=== PATIENT | male | born 1955 | race Caucasian/White ===

== ENCOUNTER 2023-01-09 11:40 | Outpatient (OUT) | payer MEDICARE, MEDICAID, SELFPAY ==
[2023-01-09 12:44] LABS: Basophils Percent Auto 0.5 % (0.2-2.0); Eosinophils Absolute Auto 0.3 10^3/uL (0.0-0.7); Eosinophils Percent Auto 4.3 % (0.9-7.0); Hematocrit 37.9 % (42.0-54.0); Hemoglobin 11.8 g/dL (14.0-18.0); Immature Granulocytes Abs Auto 0.02 10^3/uL (0.00-0.03); Immature Granulocytes Pct Auto 0.3 % (0.0-0.5); Lymphocytes Absolute Auto 2.3 10^3/uL (1.2-3.8); Lymphocytes Percent Auto 28.5 % (20.5-60.0); Mean Corpuscular HGB Conc 31.1 g/dL (29.9-35.2); Mean Corpuscular Hemoglobin 25.7 pg (25.9-34.0); Mean Corpuscular Volume 82.4 fL (80.0-94.0); Mean Platelet Volume 9.1 fL (9.5-13.5); Monocytes Absolute Auto 0.5 10^3/uL (0.3-0.8); Monocytes Percent Auto 5.9 % (1.7-12.0); Neutrophils Absolute Auto 4.8 10^3/uL (1.4-6.5); Neutrophils Percent Auto 60.5 % (43.0-75.0); Platelet Count 243 10^3/uL (150-450); Red Cell Distribution Width 15.1 % (11.0-15.0); White Blood Count 7.9 10^3/uL (4.0-11.0)
[2023-01-09 13:31] LABS: Alanine Aminotransferase 22 U/L (16-63); Albumin Globulin Ratio 0.8; Albumin Level 3.4 g/dL (3.4-5.0); Alkaline Phosphatase 148 U/L (46-116); Anion Gap 10.8; Aspartate Amino Transferase 15 U/L (15-37); BUN Creatinine Ratio 18.4; Bilirubin Total 0.7 mg/dL (0.2-1.0); Calcium 9.1 mg/dL (8.5-10.1); Carbon Dioxide 31.7 mmol/L (21.0-32.0); Chloride 103 mmol/L (98-107); Estimated GFR (African America >60 (>=60); Estimated GFR (Non-African Ame >60 (>=60); Globulin 4.3 g/dL; Glucose 130 mg/dL (74-106); Potassium 4.5 mmol/L (3.5-5.1); Sodium 141 mmol/L (136-145); Thyroid Stimulating Hormone 0.713 uIU/mL (0.358-3.740); Total Protein 7.7 g/dL (6.4-8.2)
[2023-01-09 14:38] LABS: Prostate Specific Antigen Dx 0.79 ng/mL (<=4.00)
== END 2023-01-09 11:41 | disposition home or self-care (01) ==
PROVIDERS: PCP Family Medicine; Visit Provider Family Medicine
DX: R42 Dizziness and giddiness (principal); D64.9 Anemia, unspecified; I10 Essential (primary) hypertension; N40.0 Benign prostatic hyperplasia without lower urinary tract symptoms
CPT/HCPCS: 36415; 80053; 83540; 84153; 84436; 84443; 85025

== ENCOUNTER 2023-02-09 17:14 | Emergency (ER) | payer MEDICARE, MEDICAID, SELFPAY ==
[2023-02-09 17:22] VITALS: BP 138/58; PULSE 77; RESP 16; TEMP 36.7; O2SAT 98; BMI 33.8
--- NOTE | 2023-02-09 18:06 | ED.LOWEXI1 ---
HPI - Extremity Injury (Lower) General Chief Complaint: Extremity Injury, Lower Stated Complaint: CUT LEG W/ POWER SAW Time Seen by Provider: 02/09/23 17:36 Source: patient Mode of arrival: Wheelchair History of Present Illness HPI Narrative: Patient sustained a laceration to his right leg just a few minutes ago while he was using a power saw He had his last tetanus shot almost 2 years ago No other injuries Related Data Previous Rx's Medication Instructions Recorded cephalexin 500 mg capsule 500 mg PO Q8H #9 caps 02/09/23 Allergies Allergy/AdvReac Type Severity Reaction Status Date / Time No Known Drug Allergies Allergy Verified 02/09/23 17:22 Review of Systems ROS Status of ROS 10 or more systems reviewed and unremarkable except as noted in history and below Exam Narrative Exam Narrative: Nurses notes and vital signs reviewed and patient is not hypoxic. General: Well-appearing and in no apparent distress. Skin: Warm, dry, no pallor noted. No rash. Head: Normocephalic, atraumatic. Neck: Supple, non-tender. Eye: Pupils are equal, round and EOMI. No scleral icterus. Ears, Nose, Mouth, and Throat: TM are clear, no nasal mucosal hypertrophy. Oral mucosa is moist, no posterior oropharynx erythema, uvula is mid-line Cardiovascular: Regular Rate and Rhythm without murmur, gallop or rub. Respiratory: No accessory muscle use or respiratory distress. Lungs are clear to auscultation, no wheezing, rales or rhonchi Chest Wall: no tenderness Back: No midline thoracic or lumbar vertebral tenderness. No CVA tenderness Musculoskeletal: normal ROM, no calf or popliteal tenderness at the end aspect of the right leg just at the lower third of the thigh almost to 10 cm above the knee and the patient have a laceration that is linear almost 5 cm showing no foreign body and no tendon injury no vascular injury as well. GI: Abdomen is soft, non-distended. Normal bowel sounds. No masses appreciated. No tenderness to palpation. No rebound, guarding, or rigidity noted. Neurological: A&O x4. No cranial nerve dysfunction observed. No truncal ataxia. Moves all extremities. Sensation intact. Psychiatric: Cooperative and interactive. Normal mood and affect. Constitutional Vital Signs, click to edit/add: Last Vital Signs Temp 98.1 F 02/09/23 17:22 Pulse 77 02/09/23 17:22 Resp 16 02/09/23 17:22 BP 138/58 H 02/09/23 17:22 Pulse Ox 98 02/09/23 17:22 O2 Del Method Room Air 02/09/23 17:22 Course Vital Signs Vital signs: Vital Signs Temperature 98.1 F 02/09/23 17:22 Pulse Rate 77 02/09/23 17:22 Respiratory Rate 16 02/09/23 17:22 Blood Pressure 138/58 H 02/09/23 17:22 Pulse Oximetry 98 02/09/23 17:22 Oxygen Delivery Method Room Air 02/09/23 17:22 Temperature 98.1 F 02/09/23 17:22 Pulse Rate 77 02/09/23 17:22 Respiratory Rate 16 02/09/23 17:22 Blood Pressure 138/58 H 02/09/23 17:22 Pulse Oximetry 98 02/09/23 17:22 Oxygen Delivery Method Room Air 02/09/23 17:22 MDM - Extremity Injury (Lower) MDM Narrative Medical decision making narrative: After cleaning the laceration the patient wound was infiltrated with 1% lidocaine almost 10 cc after which he had to 4-O chromic gut sutures and 10 3-O nylon stitches ,non interrupted The patient had Forest wrap applied after that and provided with Keflex as prophylaxis The patient advised about wound care The patient is to follow up with primary care physician in next 2-3 days or to return to the emergency department should any of the signs or symptoms worsen or new symptoms develop. The patient agrees with the following Diagnosis and Treatment plan and the patient will be discharged home. Discharge Plan Discharge Chief Complaint: Extremity Injury, Lower Clinical Impression: Laceration of leg Patient Disposition: Home, Self-Care Time of Disposition Decision: 18:03 Condition: Good Mode of Transportation: Private Vehicle Prescriptions / Home Meds: New cephalexin 500 mg capsule 500 mg PO Q8H Qty: 9 0RF Instructions: Care For Your Stitches (ED) Stand Alone Forms: Portal Instructions Referrals: QIANA MADDOX [Primary Care Provider] - 1 week
== END 2023-02-09 18:12 | disposition home or self-care (01) ==
PROVIDERS: Emergency Provider Emergency Medicine; PCP Family Medicine
DX: S71.111A Laceration without foreign body, right thigh, initial encounter (principal); W29.8XXA Contact with other powered hand tools and household machinery, initial encounter
CPT/HCPCS: 12002; 99283

== ENCOUNTER 2023-08-22 11:59 | Emergency (ER) | payer MEDICARE, MEDICAID, SELFPAY ==
[2023-08-22 12:02] VITALS: BP 141/64; PULSE 74; RESP 24; TEMP 36.9; O2SAT 97; BMI 33.9
--- NOTE | 2023-08-22 12:10 | XR_ITS ---
The [address] [address] Patient Name: ZACHERY GALDAMEZ MRN: [id number] date: 1955 Sex: M Assigned Patient Location: ER Current Patient Location: ER Accession/Order Number: [id number] Exam Date: 08/22/2023 12:40 Report Date: 08/22/2023 13:15 At the request of: WILLIAM RUCKER Procedure: XR chest 1V PROCEDURE: XR chest 1V DATE: 08/22/2023 12:40 PM EST COMPARISONS: 04/25/2022 CLINICAL INDICATION: 68 years Male cough FINDINGS: The cardiomediastinal silhouette and pulmonary vasculature are within normal limits. The lungs are clear. There is no evidence of pleural effusion or pneumothorax. XR/XR chest 1V IMPRESSION: Chest radiograph is within normal limits. Electronically authenticated by: CARMELO TRIANA Date: 08/22/2023 13:15
[2023-08-22 12:29] LABS: Influenza Virus A Antigen Negative; Influenza Virus B Antigen Negative; Internal Control Within Normal Limits; SARS-CoV-2 Ag NEGATIVE (NEGATIVE)
--- NOTE | 2023-08-22 13:37 | ED.URI1 ---
HPI - URI/Sore Throat General Chief Complaint: Upper Respiratory Infection Stated Complaint: URTI Time Seen by Provider: 08/22/23 12:06 Source: patient Limitations: no limitations History of Present Illness HPI Narrative: 68-year-old male presents for a 4-day history of cough. He has been coughing up yellow phlegm. He has not had a known fever. No vomiting or diarrhea. He has not been around ill people. Related Data Previous Rx's Medication Instructions Recorded cephalexin 500 mg capsule 500 mg PO Q8H #9 caps 02/09/23 benzonatate 100 mg capsule 100 mg PO TID PRN cough #20 caps 08/22/23 doxycycline hyclate 100 mg capsule 100 mg PO BID 10 days #20 caps 08/22/23 Allergies Allergy/AdvReac Type Severity Reaction Status Date / Time No Known Drug Allergies Allergy Verified 02/09/23 17:22 Review of Systems ROS Narrative A ten point review of systems is negative except as noted above. PFSH PFSH Social History Smoking status: Former smoker Exam Narrative Exam Narrative: Nurses note and vital signs reviewed and patient is not hypoxic. General: The patient appears well and in no apparent distress. Patient is resting comfortably on cart. Skin: Warm, dry, no pallor noted. There is no rash noted. Head: Normocephalic, atraumatic Eye: Normal conjunctiva, no drainage Ears, Nose, Mouth, and Throat: oral mucosa is moist. Nares patent. Cardiovascular: Regular Rate and Rhythm Respiratory: Patient is in no distress, no accessory muscle use, lungs are clear to auscultation, no wheezing, rales or rhonchi Back: non-tender GI: Soft and nontender Musculoskeletal: The patient has no evidence of calf tenderness, no pitting edema, symmetrical pulses noted bilaterally Neurological: A&O, normal speech Psychiatric: Cooperative Constitutional Vital Signs, click to edit/add: Last Vital Signs Temp 98.4 F 08/22/23 12:02 Pulse 74 08/22/23 12:02 Resp 24 08/22/23 12:02 BP 141/64 08/22/23 12:02 Pulse Ox 97 08/22/23 12:02 O2 Del Method Room Air 08/22/23 12:02 Course Vital Signs Vital signs: Vital Signs Temperature 98.4 F 08/22/23 12:02 Pulse Rate 74 08/22/23 12:02 Respiratory Rate 24 08/22/23 12:02 Blood Pressure 141/64 08/22/23 12:02 Pulse Oximetry 97 08/22/23 12:02 Oxygen Delivery Method Room Air 08/22/23 12:02 Temperature 98.4 F 08/22/23 12:02 Pulse Rate 74 08/22/23 12:02 Respiratory Rate 24 08/22/23 12:02 Blood Pressure 141/64 08/22/23 12:02 Pulse Oximetry 97 08/22/23 12:02 Oxygen Delivery Method Room Air 08/22/23 12:02 MDM - URI/Sore Throat MDM Narrative Medical decision making narrative: COVID, influenza, chest x-ray are all negative. He will be placed on doxycycline and Tessalon. Treatment diagnosis and follow-up were discussed with the patient. Differential Diagnosis Differential diagnosis: Likely upper respiratory infection, viral infection, bronchitis, influenza and other (COVID, pneumonia) Lab Data Attestation: I reviewed the patient's lab results. Labs: Lab Results 08/22/23 Range/Units 12:05 Influenza Type A Ag Negative Influenza Type B Ag Negative SARS-CoV-2 Ag (CV2AG) Negative (NEGATIVE) Imaging Data Chest x-ray: Radiologist's impression: ITS Impressions Chest X-Ray 08/22/23 12:10 IMPRESSION: Chest radiograph is within normal limits. Electronically authenticated by: CARMELO TRIANA Date: 08/22/2023 13:15 Discharge Plan Discharge Chief Complaint: Upper Respiratory Infection Clinical Impression: Upper respiratory infection Patient Disposition: Home, Self-Care Time of Disposition Decision: 13:36 Condition: Good Mode of Transportation: Private Vehicle Prescriptions / Home Meds: New doxycycline hyclate 100 mg capsule 100 mg PO BID 10 Days Qty: 20 0RF benzonatate 100 mg capsule 100 mg PO TID PRN (Reason: cough) Qty: 20 0RF No Action cephalexin 500 mg capsule 500 mg PO Q8H Qty: 9 0RF Instructions: Upper Respiratory Infection (ED) Stand Alone Forms: Portal Instructions Referrals: QIANA MADDOX [Primary Care Provider] - 1 week
== END 2023-08-22 13:55 | disposition home or self-care (01) ==
PROVIDERS: Emergency Provider Emergency Medicine; PCP Family Medicine
DX: J06.9 Acute upper respiratory infection, unspecified (principal); Z87.891 Personal history of nicotine dependence
CPT/HCPCS: 71045; 87804; 87811; 99284

== ENCOUNTER 2023-08-28 09:03 | Outpatient (OUT) | payer MEDICARE, MEDICAID, SELFPAY ==
--- OUTSIDE RECORDS SUMMARY | 2023-08-28 09:11 | XMS_ITS | CCD ---
Author Name Unknown Address [address] [place] [address] Organization [facility] Care Team Providers Care Umbrella Frame Maker Name Role Phone Joe Maddox Unavailable Unavailable Unavailable Jocelyn Diaz Unavailable MISC, DR WEATHERS Admitting Unavailable [facility], DR WEATHERS Attending Unavailable EMIGRANT, DR KIRAN Primary Care Unavailable HUTCHINS, DR NATACHA Campoverde Consulting Unavailable [facility] [place], DR WEATHERS Consulting Unavailable EMIGRANT, DR KIRAN Admitting Unavailable EMIGRANT, DR KIRAN Attending Unavailable EMIGRANT, DR KIRAN Referring Unavailable [facility] Primary Care Unavaila ble EMIGRANT, DR KIRAN Consulting Unavailable EMIGRANT, DR KIRAN Admitting Unavailable HOUSE, DR KIRAN Attending Unavailable EMIGRANT, DR KIRAN Primary Care Unavailable EMIGRANT, DR KIRAN Consulting Unavailable MARITZA, DR JEAN-PAUL Mccann Consulting Unavailable EMIGRANT, DR KIRAN Admitting Unavailable HOUSE, DR KIRAN Attending Unavailable EMIGRANT, DR KIRAN Primary Care Unavailable EMIGRANT, DR KIRAN Consulting Unavailable ZIHARPREET, DR JEAN-PAUL Mccann Consulting Unavailable JOHNNY, EMANUEL Admitting Unavailable JOHNNY, EMANUEL Attending Unavailable JONNY, DR ADDY Davis Consulting Unavailabl e EMIGRANT, DR KIRAN Primary Care Unavailable JOHNNY, EMANUEL Consulting Unavailable EMIGRANT, DR KIRAN Primary Care Unavailable JAYCOB, DR CABEZAS Admitting Unavailable HAY, DR CABEZAS Attending Unavailable HAY, DR CABEZAS Consulting Unavailable RHIANNASANDER CRAIN Consulting Unavailable [facility] Primary Care Unavaila ble PAY, DR KOTHARI Admitting Unavailable PAY, DR KOTHARI Attending Unavailable PAY, DR KOTHARI Consulting Unavailable ANAND, LINDA Consulting Unavailable [facility] Primary Care Unavaila ble MARTÍNEZ, JAMSHID AMBROSE Consulting Unavailable BHARGAV, DR ELIESER De La Cruz Admitting Unavailabl e BHARGAV, DR ELIESER De La Cruz Attending Unavailabl e STRAWSER, ABRAN Consulting Unavailable Mischler, Tamara Consulting Unavailable Maya Collins Admitting Unavailab Merline Alvarenga Attending Unavailable House, Joe Primary Care Unavailable Sol Fuller Consulting Unavailable Cronin, Sundar Consulting Unavailable Addy Glass Consulting Unavail able Traboulmaria del carmen, Maribell Consulting Unavailable Nandini, Joe Consulting Unavailab christopher Andrews, Emanuel Shin Consulting Unavailable Basurto, Bebe Consulting Unavailable Nirmal, Van Najeeb Consulting Unavailab le Jarek, Tarek Consulting Unavailable Jonny, Dr. Addy Cartagena Referring Unava ilable Varsha, Dr. Joe Brown Primary Care Unava ilable Jonny, Dr. Addy Cartagena Attending Unava ilivan Andrews, Emanuel Attending Unavailable Emanuel Andrews Referring Unavailable Varsha, Dr. Joe Brown [facility] Care Winifred Fuller, Dr. Addy Cartagena Attending Mounava martinez Fuller, Dr. Addy Cartagena Referring Unava ilable Varsha, Dr. Joe Brown [facility] Unava MD Ilya Mayberry Admitting Unavailable Ilya Bullock Attending Unavailable Ilya Bullock Referring Unavailable Ken Acosta Admitting Unavailable Ken Acosta Attending Unavailable Hai Aponte Referring Unavailable RAJESH JOEL Referring Unavailable CLAUDE Urena Admitting Unavailabl Ariana Posey Attending Unavailable CLAUDE Urena Admitting UnavailAriana Sands Attending Unavailable Joe Maddox Referring Unavailable CLAUDE Urena Admitting UnavailAriana Sands Attending Unavailable Joe Maddox Referring Unavailable MD Ilya Bullock Admitting Unavailable Dave Ken A Referring Unavailable Ilya Bullock Attending Unavailable Neymar Willingham Attending Unavailable Neymar Willingham Referring Unavailable MD Neymar Willingham Admitting Unavailable Neymar Willingham Attending Unavailable Neymar Willingham Referring Unavailable MD Neymar Willingham Admitting Unavailable Gibran Barker MD Attending Unavailable VARSHA, JOE Lam Primary Care Unavailable JOE MADDOX Primary Care Unavailable Gibran Barker MD Attending Unavailable VARSHA, JOE Lam Primary Care Unavailable Gibran Barker MD Attending Unavailable VARSHA, JOE Lam Primary Care Unavailable JOE MADDOX Admitting Unavailable VARSHA, JOE Lam Attending Unavailable Allergies Allergy Classification Reported Allergen(s) Allergy Type Date of Onset Reaction(s) Facility (8 sources) Aspirin; Translations: [aspirin] Drug Allergy Other [facility] DO Work Phone: (1 source) gabapentin; Translations: [gabapentin] Drug Allergy [facility] Repository Medications Current Medications Medication Drug Class(es) Dates Sig (Normalized) Sig (Original) [id number] 200 actuat albuterol 0.09 mg/actuat metered dose inhaler (10 sources) beta2-Adrenergic Agonist Start: 08-08-2021 take 2 puff(s) by inhalation every four hours as needed Albuterol Sulfate HFA 108 (90 Base) MCG/ACT 2 puffs as needed Inhalation every 4 hrs Jul, Active take 2 puff(s) by in halation every four hours as needed Albuterol 90 MCG/ACT AERS INHALE 2 PUFFS EVERY 4 HOURS NEEDED Quantity: 0 Refills: 0 Ordered: 28-Nov-2021 DO Active Metoprolol-12.5 mg (1 source) Metoprolol-12.5 mg Active oseltamivir 75 mg oral capsule (1 source) Neuraminidase Inhibitor Start: 022 take 1 capsule by mouth every twelve hours Oseltamivir Phosphate 75 MG 1 capsule Orally Twice a day for 5 day(s) Jul, Active Completed/Discontinued Medications Medication Drug Class(es) Dates Sig (Normalized) Sig (Original) aspirin 81 mg chewable tablet (1 source) Platelet Aggregation Inhibitor, Nonsteroidal Anti-inflammatory Drug take 1 tablet by mouth once daily Aspirin 81 MG Oral Tablet Chewable Take 1 tablet daily Quantity: 90 Refills: 3 Ordered: 09-Dec-2021 Emanuel Préez Active atorvastatin 80 mg oral tablet (8 sources) HMG-CoA Reductase Inhibitor Start: 03-09-2023 take 1 tablet by mouth at bedtime Atorvastatin Calcium 80 MG Oral Tablet TAKE 1 TABLET AT BEDTIME Quantity: 90 Refills: 3 Ordered: 16-Mar-2023 Emanuel Pérez Start : 09-Mar-2023 Active take 1 tablet by mouth at bedtim e Atorvastatin Calcium 80 MG Oral Tablet TAKE 1 TABLET AT BEDTIME. Quantity: 90 Refills: 3 Ordered: 19-Mar-2022 Addy Fuller DO Active clopidogrel 75 mg oral tablet (2 sources) P2Y12 Platelet Inhibitor Start: 03-26-2023 Clopidogrel Bisulfate 75 MG Oral Tablet TAKE ONE TABLET THURSDAY THRU THURSDAY Quantity: 60 Refills: 3 Ordered: 06-Apr-2023 Addy Fuller DO Start : 26-Mar-2023 Active gabapentin 800 mg oral tablet (2 sources) Anti-epileptic Agent take 1 tablet by mouth three times daily Gabapentin 800 MG Oral Tablet TAKE 1 TABLET 3 TIMES DAILY. Quantity: 0 Refills: 0 Ordered: 26-Mar-2023 DO Active meloxicam 15 mg oral tablet (10 sources) Nonsteroidal Anti-inflammatory Drug take 1 tablet by mouth once daily Meloxicam 15 MG Oral Tablet TAKE 1 TABLET DAILY. Quantity: 0 Refills: 0 Ordered: 28-Nov-2021 DO Active Meloxicam Active 24 hr metoprolol succinate 25 mg extended release oral tablet (8 sources) beta-Adrenergic Svetlana Start: 03-19-2022 take 1 tablet by mouth once daily Metoprolol Succinate ER 25 MG Oral Tablet Extended Release 24 Hour Take 1 tablet daily Quantity: 90 Refills: 3 Ordered: 16-Mar-2023 Emanuel Pérez Start : 19-Mar-2022 Active take 1 tablet by mouth once denny y Metoprolol Succinate ER 50 MG Oral Tablet Extended Release 24 Hour Take 1 tablet daily Quantity: 90 Refills: 3 Ordered: 09-Dec-2021 Emanuel Pérez Active nitroglycerin 0.4 mg sublingual tablet (9 sources) Nitrate Vasodilator Nitroglyceri n 0.[address] Tablet Sublingual [address] 1 TABLET UNDER THE TONGUE EVERY 5 MINUTES UP TO 3 DOSES NEEDED FOR CHEST PAIN. Quantity: 45 Refills: 0 Ordered: 19-Mar-2022 Addy Fuller DO Active prasugrel 10 mg oral tablet (3 sources) P2Y12 Platelet Inhibitor take 1 tablet by mouth once daily Prasugrel HCl - 10 MG Oral Tablet TAKE 1 TABLET DAILY. Quantity: 90 Refills: 3 Ordered: 09-Dec-2021 Emanuel Pérez Active tadalafil 20 mg oral tablet (9 sources) Phosphodiesterase 5 Inhibitor take 1 tablet by mouth once daily Tadalafil 20 MG Oral Tablet TAKE 1 TABLET DAILY 1 HOUR BEFORE NEEDED Quantity: 0 Refills: 0 Ordered: 28-Nov-2021 DO Active traMADol hydrochloride 50 mg oral tablet (10 sources) Opioid Agonist take 1 tablet by mouth twice daily as needed traMADol HCl - 50 MG Oral Tablet Take 1 tablet twice daily as needed Quantity: 0 Refills: 0 Ordered: 28-Nov-2021 DO Active traMADol HCl Act marichuy traZODone hydrochloride 50 mg oral tablet (9 sources) Serotonin Reuptake Inhibitor take 1 tablet by mouth at bedtime traZODone HCl - 50 MG Oral Tablet TAKE 1 TABLET AT BEDTIME. Quantity: 0 Refills: 0 Ordered: 28-Nov-2021 DO Active ubidecarenone 100 mg / vitamin e 5 unt oral capsule (6 sources) Co Q 10 100 MG O ral Capsule TAKE DIRECTED. Quantity: 0 Refills: 0 Ordered: 18-Sep-2022 DO Active valsartan 160 mg oral tablet (9 sources) Angiotensin 2 Receptor Svetlana Start: take 1 tablet by mouth once daily Valsartan 160 MG Oral Tablet TAKE 1 TABLET DAILY. Quantity: 90 Refills: 3 Ordered: 18-Sep-2022 Addy Fuller DO Start : 18-Sep-2022 Active dose change take 1 tablet by mouth once denny y Valsartan 80 MG Oral Tablet TAKE 1 TABLET DAILY. Quantity: 90 Refills: 3 Ordered: 19-Mar-2022 Addy Fuller DO Active Problems Active Problems Problem Classification Problem Date Documented Date Episodic/Chronic Acute myocardial infarction (7 sources) Myocardial infarction; Translations: [Subendocardial infarction, initial episode of care] Onset: 11-26-2021 Chronic Conduction disorders (1 source) Unspecified right bundle-branch block; Translations: [UNSPECIFIED RT BUNDLE-BRANCH BLOCK] Onset: 11-26-2021 Chronic Coronary atherosclerosis and other heart disease (15 sources) Coronary atherosclerosis; Translations: [Coronary atherosclerosis of [place] coronary artery] Onset: 12-17-2021 Chronic Diseases of white blood cells (1 source) Elevated white blood cell count, unspecified; Translations: [ELEVATED WHITE BLOOD CELL COUNT UNS] Onset: 04-29-2022 Chronic Disorders of lipid metabolism (9 sources) Mixed hyperlipidemia; Translations: [Mixed hyperlipidemia] Chronic Essential hypertension (10 sources) Benign hypertension; Translations: [Benign essential hypertension] Onset: 11-26-2021 Chronic Fever of unknown origin (1 source) Fever, unspecified; Translations: [FEVER UNSPECIFIED] Onset: 04-29-2022 Episodic Malaise and fatigue (8 sources) Fatigue; Translations: [Other malaise and fatigue] Episodic Other aftercare (1 source) Other longterm (current) drug therapy; Translations: [OTH PRISON CURRENT DRUG THERAPY] Onset: 04-29-2022 Episodic Other lower respiratory disease (1 source) Shortness of breath; Translations: [SHORTNESS OF BREATH] Onset: 04-29-2022 Episodic Other nervous system disorders (1 source) Other chronic pain; Translations: [OTHER CHRONIC PAIN] Onset: 11-26-2021 Chronic Other non-traumatic joint disorders (4 sources) Pain in left hip; Translations: [PAIN IN LEFT HIP] Onset: 04-02-2022 Episodic Other nutritional; endocrine; and metabolic disorders (11 sources) Obesity; Translations: [Obesity, unspecified] Chronic Other nutritional; endocrine; and metabolic disorders (1 source) Obesity, unspecified; Translations: [E66.9 - Obesity, unspecified] Onset: 11-23-2021 Chronic Other screening for suspected conditions (not mental disorders or infectious disease) (9 sources) Echocardiogram abnormal; Translations: [Nonspecific (abnormal) findings on radiological and other examination of other intrathoracic organs] Episodic Screening and history of mental health and substance abuse codes (9 sources) Ex-smoker; Translations: [Personal history of tobacco use] Episodic Comment on above: quit as a teen; Spondylosis; intervertebral disc disorders; other back problems (5 sources) Other intervertebral disc degeneration, lumbar region; Translations: [Other intervertebral disc degeneration, lumbosacral region] Onset: 05-22-2022 Chronic Spondylosis; intervertebral disc disorders; other back problems (2 sources) Sciatica, unspecified side; Translations: [Dorsalgia, unspecified] Onset: 11-26-2021 Episodic Unclassified (3 sources) COUGH, UNSPECIFIED; Translations: [COUGH, UNSPECIFIED] Onset: 04-29-2022 Unclassified (1 source) CONTACT W/AND (SUSP) EXPOS COVID-19; Translations: [CONTACT W/AND (SUSP) EXPOS COVID-19] Onset: 04-29-2022 Unclassified (1 source) LOW BACK PAIN, UNSPECIFIED; Translations: [LOW BACK PAIN, UNSPECIFIED] Onset: 04-06-2022 Unclassified (1 source) I21.4 - Non-ST elevation (NSTEMI) myocardial infarction; Translations: [I21.4 - Non-ST elevation (NSTEMI) myocardial infarction] Onset: 11-23-2021 Past or Other Problems Problem Classification Problem Date Documented Date Episodic/Chronic E Codes: Cut/pierceb (1 source) Contact with other powered hand tools and household machinery, initial encounter; Translations: [CONTACT OTH POWER HT AND HH MACH INIT] Onset: 10-08-2021 Episodic Genitourinary symptoms and ill-defined conditions (5 sources) Nocturia; Translations: [Other polyuria] Onset: 02-10-2022 Episodic Immunizations and screening for infectious disease (11 sources) Patient encounter status; Translations: [Other specified vaccination] Onset: 08-08-2021 Resolved: 03-19-2022 Episodic Influenza (1 source) Influenza due to other identified influenza virus with other respiratory manifestations Onset: 08-08-2021 Resolved: 08-08-2021 Episodic Nonspecific chest pain (4 sources) Chest pain, unspecified; Translations: [CHEST PAIN UNSPECIFIED] Onset: 11-23-2021 Episodic Open wounds of extremities (4 sources) Laceration without foreign body of left index finger without damage to nail, initial encounter; Translations: [Laceration of flexor muscle, fascia and tendon of left index finger at wrist and hand level, initial encounter] Onset: 10-05-2021 Episodic Unclassified (1 source) COUGH, UNSPECIFIED; Translations: [COUGH, UNSPECIFIED] Onset: 04-25-2022 Viral infection (1 source) COVID-19 Onset: 08-08-2021 Resolved: 08-08-2021 Results Test Name Value Interpretation Reference Range Facility Outside Recordson 08-03-2023 Outside Records [id number] [id number] Reminder Messageson 07-31-19 24 Reminder Messages - From: JOE MADDOX DO To: [facility] Clinical Pool ([facility]); Sent: 07/27/2023 12:31:28 EST ! Show up: 07/27/2023 12:31:28 EST Subject: Results Follow Up Actions: Call the patient with result(s) Due Date/Time: 07/28/2023 12:30:00 EST Reminder Comments: looks okay. no abnormal rhythms Results: Date Result Type Result Name 07/27/2023 11:35 Radiology CV Holter Monitor 48 Hour - From: Katelin Shultz ([facility] Clinical Pool ([facility])) To: JOE MADDOX DO; Sent: 07/27/2023 16:46:59 EST Show up: 07/27/2023 16:46:00 EST Subject: RE: Results Follow Up Notified patient of results. Patient states he had another episode yesterday afternoon, his BP dropped to 98/61 while he was sitting. Patient states he had not had an episode prior to this one for 2 weeks. Please advise, thank you - From: JOE MADDOX DO To: [facility] Clinical [place] ([facility]); Sent: 07/28/2023 07:42:25 EST Show up: 07/28/2023 07:42:00 EST Subject: RE: Results Follow Up time for a cardiology referral LVM notifying patient, referral made [facility] Coding Summaryon 07-28-2023 Coding Summary HTMLBase 64 YirhfjpxCBg9sPr+PGhl YWQ+NT5SVMYfN36haKQx iI9zE4VQGLvACwahAZBY COsTIvYfhgCzQR3pmXTt ZXJu IC8+JO9rADOzBuxvbMLy k3R9nLR8Y72frz9uZVer fSA3OOMtEvCjfxrid5mm rFg9IFwzNfjeRxJy LTZosQ70UNP1dH30Ve24 fVWjrHFjp5ttdPu8DyJb OCVsOID6sEntJPzej0Iu CYElM10jqLJgd5V3 IGNvbGxhcHNlOyBlbXB0 kL2cOBlffczue4qcracd Uhw7ak46kXOxr9J3wFE1 P1MokrE0AGCsmUIp KzriiJJPpX2jphcjh5di ehhjWlRpDWPbQRk9QVt7 SYVfpWmrYnWsQV26XYJ4 PJUyvqRqF3JpTMFw eYzgMnM4y2C3Wq6EF8TE IivkS7DOGWEOPGnewZN+ IL05qe05K1ZyZjttUnl7 GJVcYLD2dTU9eL8s ARXyGBcme8I6jUU7S6Rr glHzqr9va7usBKQqLSky T43fzOBqe7O6MKXrpML3 IHZquVfvItVwoW80 Oyc+RSLmePcse9PjMgti g3dmz6dgwPy5InqrBHMp tiOayKpqRLI8m4IbYp7s SPVmhBD1aIY9yX8z IgRsOvV5FWluO625NtUk yNWmUlumW08nE6JegET+ ZIBaSof1HHSboUqePL7j M3QfTYScfaaslGTs cJedBF7uHVSosdjeJSBw pH7yHYBnK5k4DnPrFeX2 KAcfY0ZwQKVabnpkGf30 nG1yKsClTqA5IIzb L8QgodT3NVLcoSHhFKxa WHT1C13pf6Y9FHPgDSHy DXZ3kLR3hQ0rnRcbjukv bGVmdDsgdmVydGlj RCgdEZkmH494YFIjwMxa PkNvZGluZyBEYXRlOiAg MDEvMDkvMjAyNDwvdGQ+ FYCyLJW2yBbpAYZr fAPxDCipMf2hgKqzyBrx JE5kEDBikcvxGUNhvO9q XOXmwJKizOvoZZ9lBHCc migyn861KpQvVEF8 NDIlzIPvX9KtjB8dTzBo ILVzMFFeT6TlzJTgOJed Q775JLyvZqM2NVWltpRs M3PfWFGozWrcOuS8 z1V0Zr0Nm6NhnnfiH6Ar qMTlMvFkHlkuLUu6O4Qj PjwvdHI+TA93CGXuEZ10 TXq6HDQ9xJywHIpv MQCbY8QhlV1oWhXeCQVz ZGRkOyc+PHRhYmxlIHdp ZHRoPScxMDAlJyBzdHls BS5eLy7wSGXqZOFh nYquwJWeVdCqy9kzIGCt RIyhEN2ysMgkP8PwyFN6 MCCkz4y9Gp05E03aO8Yf dXA+FUXldPP6sDD6 zK5oGeBhOzG2LMcdM097 ZuZkuSLwSjxuh0egw8mr sIf7MoX6SNHwkxMpcPog NMP0k7GzHx92U53p IHdpZHRoPSIxNSUiIHZh aStqwj6mdE6aLy6+PGNv cKB4cNG2bB7tHmMeSdK3 MFrkS828IpVroRWd Mroja8qsc2vvdHz4ByXp SNIcobTxxLdfOSU1k0Nu Jn24B5FerNxtz6DmJka2 ef04kRKgn7R6lYY8 W4TtHHBrwmrgzXUrkNtf YY7kUOCuswnaPVJfgA3n NOOoO4r1HhDhCiO8ZSxd F9OknmL2HYSkuNBh SIOqzFDGiN3zdbzfe5zj qfnfRkOmCOEkTWp4TMz5 HJBdtDyzFdHdXQO1TeN7 SYQ5tBXhhN4mpGde udcwvL8rRju+HUH0fQYp gMECHJ8dEuhqjUJ+PHRk WRF3xOqkBCvgOAWhhX0c KRWlD4k1WaWsUjY4 WVvxF9HnnaQ9JGRnuLNu GUMgaTBTeP1mdykwp4du aclsEmHkIGWqYTi5YVc8 LWFsaWduOiBsZWZ0 WdL4LJE2uNAdnC9qyXcf tvlyrK2vKpi+QmlydGgg LCV9MFl4Y5QkLgg1WHXd eEaeOC3nlSGcBKfi Dp7oaBliaEgyTB6pIXRw ktctq145AeMhp8lyKXBq uTNjGIabZAQ8J66sj3N7 WFGhVGSlQMS5mWZ0 fW3mbPofoslyjLPqdEfe gsCheLpgZRyxLSjyS769 YTMndYxwXlKaXRi2Q1Jy Cnv3HDHriOkbGA9r wLRqORwzZg3weEsvlEyd FS7mRZVjqkqgv880LmZp v3wqJAGouUQjTAtrUIE6 I83ta2F0BRBkPGOq XZW9kOU3qG9izMylllky bGVmdDsgdmVydGljYWwt SWxwA293SKFfwXiwReEw wHf2Y0YdCug9OREw yPqcIF7kqNYxHZxbEo3l sPszoVndOB9pUHErqlrc j066ZvJxt0lhFYAjlLBb QVkkYJK4N09st0K9 OVSqQPMgNBQ5wXA6lG3d bGlnbjogbGVmdDsgdmVy zPngZSnsDYykD037YYIj cDsnPlBhdGllbnQg KPcgQPd1E4AgKmdsuMD+ GG96HIOyBF47dWSsbZMr b3drqCj7PgYiICVnOVA8 oFllMJmfp4ZsQDQy C64fqNOva5P2MYJvhQqg uFRtSwCfpMZ8qK8lKTqg tzlll4lxcmhcNjumx6al mc15lG14D79aOGty ZHRoPSIzMCUiIHZhbGln fz6vnV8bYu2+PGNvbCB3 ePE4uD9sDXRdHbJ1GHvq W620IlVfnCEzVvhk l4wpc7eyaZc3BzR4FIGb zbTokWdhQPK5r5CeVi08 L23vYToyXKWrAUFlQELl BWYxvBuibe6jbG9n Ii8+FIOwsUY7nVQ1eI1o BfAnYpV7QRzoZ270VaZe hBWlVqbxR75fV1IczAW+ DFVyYcv3DOBikOhj MP8wkXRwGBqeGl8qCKO0 PaJcVrYiKKdqF4EfUBAg yrdwaosugSY0PZXgYANr oP34Ly2ymTyhVNEr oGASbH1dwaqnj5hgyzqr EvCgEWKnXFr0VVs6OGNq oOcrCfJcKTS7QpK5ZEA7 hAJwkA2kwBgdaobu cW7uM3GrJLXopbayAk82 uI4aViBlFsP7LEmdTlc+ M4MDNpGPQRNMMNaATZWZ SQ14KL84dVOxn7T4 cJZ8K0RwMTGgvjnjdihr fHL9EAGtFRFgnD53aYXi RGeqDa0tv4Z9t521OZVl EBKogT56Qb9lnXlb FACxjQYEqU0uwmouf2gf wfbhGkLhMSMlFUu8IPk0 WPRmcBvwKlDnQSX6JmW5 OME0aNOrzM4jxNjm qxmbzK1mKbs+MDEvMzEv BXs4QtfovCL+PHRkIHN0 zHkzVKqzVABahJ6kGAIj W0b4AfIfRzB4ZDry F8NxBNDxdnwsRx99oV6r ZsUrGqZ2VJelR7OojmB1 NZVdoVZxKBymVJN7R87b j2G4GHCzIFZlXGX0 kEY1uO0cjAkbfarjqKOw dDsgdmVydGljYWwtYWxp Z897IPGlfRykYpL9ICle DMSdAO37XX54fKPq f0J7pTM5P4YgVFDzvabj laeazQP1JIAjEFBwwZ80 dNKeQLlqWj5lx4C0g334 YDDyDAMdjD73Oe4b cVscALZqzODHtM7flurr u2omtpprHoEbGPWnJOs1 JLm3YNWurFdfHzZkCMR4 HqJ8SNI6vLQwnX8o uUyvideduR4vIpz+TUFM RTwvdGQ+FXMaRSE0vVkv EZttQGVrqF0zNXXzK3i5 YaUkEmA5IWmyM4Nl VMWckbuuWg19rR9aSvWt TsB3VMcgS9LgijJ2TTHc yEYhMYzhTDJ7M26er9J6 YOCrUXOqQCC8oFA7 iX2ytFtoldaghXYdmLul wgAzwIuiFNptDXbvA243 GAZknXmhXn11nHVfdQiy hhCbvL3oQBLVOQD0 B7OnGrcmuVI+FO85CBYe CN91yJXxqQIap6oqfWx1 GjRdDRAfZGN9dKfdLOiq r8UfOBNaE24jqTBr g9L2XUCrrKebiAJqHgMg rGB6hF6wZDxsipmyx1of dihwEjagp9hqsm49lV85 Q73lDQfsYZMoBEPg NMDmVASnkKmpuo1vuN9n Ii8+EGXzeFK4bXV7wB9r HpZpAjX2FDyxC903KjQz aISyNriva0lsp5oc jMw1WkYfYHAzurTjmCce IVT3g0RqCi42E86zOScu ZHRoPSIyMCUiIHZhbGln mf3lkF5mEf0+PC9j n8pnsd41nM88xIS+PHRk XTQ4vWndSBzmIBNynB4o WTboEsR4ZJTkRoYqhY19 sUUxCXilOt8abKpc iZceGT8rKFBhvgmwj869 ZiKsi0vnGNWpgFJcBOua VWC4B25cx4F5CEAgIWSy XSX5vWO8rJ8onPvb bjogbGVmdDsgdmVydGlj MBfpQRikW162YWTmlTaf LuDbvDNuF4hxbwPREQ9i OjwvdGQ+PHRkIHN0 sNvwWNvwCHQvrC8hCHMa F6v7MvQuThO7XCieK5Jj zuV1GYSlxUKlFVRtaNWP vA7vsyrbd6qucmyz UyUmGJQhTGz4XAl9TXYd lVmkBwCqLYL8ShK3YGM5 xXQkkV9zoTbgqtabgO3e Oyc+RklOOjwvdGQ+ QFEcNWK6pIvzOXtkWAYt mO9pULQvJ7i3VaJpNeS3 GPcmX8TstqV8POYghLFj CNIyuUVIuV2wgiso t2ntzxkcFmLuLENuNMm9 MNk3EHSldJsoHxPbWMK9 VdS6FEB2aPNgyK5vvXyy yhzhrI7iLsc+TVJO OjwvdGQ+POVmPLR1dPoi EVwrCUVffW5mBCPbO8k8 ZlTgAwN4RMhuR9DthiE7 IGJvbGQgMTBwdCBU pG6nwapqc9zxsvqbQoQt FQVePZh0DZa9UECxuHkm VuQrJBM1ChI6XVT2cJKt fY6jfUaxpkuhxN7v Oyc+RVQ4SWF5QX74WM72 H6VjIofujCYxsMD+PHRh YmxlIHdpZHRoPScxMDAl IzVywDrqHU6wIz7h ZGV (more content not included)... [facility] Holter Monitoron 07-28-2023 Holter Monitor [id number] [id number] CV Holter Monitor 48 Houron 07-21-2023 CV Holter Monitor 48 Hour DATE OF STUDY: 07/21/2023 CV HOLTER MONITOR 48 HOUR INDICATION FOR STUDY: Cardiac arrhythmia. IMPRESSION: 1. The rhythm is sinus rhythm with a bundle branch block type pattern noted. 2. The average heart rate is 63 bpm with a minimum of 47 bpm and maximum of 105 bpm. 3. Extremely rare premature ventricular contractions making up 0.1% of all beats. 4. Extremely rare premature atrial contractions. 5. No runs of ventricular or supraventricular tachycardia. 6. There were no significant pauses. 7. Numerous symptoms of shortness of breath, dizziness and chest pain; all corresponding to a sinus rhythm. No rhythm abnormalities associated with any of the patient's symptoms. Timothy Burnett DO JOB #: [id number] bk Final Dictated by: Timothy Burnett DO Dictated DT/TM: 07/27/23 9:22 Signed (Electronic Signature): Timothy Burnett DO 07/27/23 11:35 a Technologist: [facility] Outside Recordson 06-29-2023 Outside Records [id number] 90[facility] Consent for [facility]/Surger yon 06-25-2023 Consent for Procedure/Surgery [id number] #1.00[facility] Consent for Treatmenton Consent for Treatment [id number] 8#1.00TIFF [facility] Discharge Instructionson Discharge Instructions [id number] #1.00[facility]FF [facility] IntraOperative Documentson 1 08-26-2022 IntraOperative Documents [id number] #1.00TIFF [facility] Main OR Intraoperative Recor don 06-25-2023 Main OR Intraoperative Record IntraOp Document Type FTPM Summary Primary Physician: Neymar Willingham MD Finalized Date/Time: 06/25/23 13:41:33 Pt. Name: MARIELAAlessandroBARRY/Sex: 1955 Male Med Rec #: [id number] Physician: Neymar Willingham MD Financial #: [id number] Pt. Type: P Room/Bed: / Admit/Disch: 06/25/23 12:30:18 - Institution: Case Times FTPM Entry 1 Patient Times In Room 06/25/23 13:37:00 Out Room 06/25/23 13:42:00 Procedure Times Start 06/25/23 13:40:00 Stop 06/25/23 13:41:00 Anesthesia Times Last Modified By: Adry Troy RN 06/25/23 13:41:27 Case Attendance FTPM Entry 1 Entry 2 Entry 3 Case Attendee Tarsha FARFAN, Neymar Troy RN, Adry Andrews RN, Nancy Role Performed Surgeon - Primary Newspaper Correspondent - Primary Scrub - Primary Time In 06/25/23 13:37:00 06/25/23 13:37:00 06/25/23 13:37:00 Time Out 06/25/23 13:42:00 06/25/23 13:42:00 06/25/23 13:42:00 Procedure TRANSFORAMINAL EPIDURAL TRANSFORAMINAL EPIDURAL TRANSFORAMINAL EPIDURAL STEROID INJECTIO(Left) STEROID INJECTIO(Left) STEROID INJECTIO(Left) Comments Last Modified By: Woodrow TREVIZO, Adry Troy RN, Adry Lawrence RN 06/25/23 13:41:29 06/25/23 13:41:29 06/25/23 13:41:29 Entry 4 Case Attendee Kimmy Chaney Role Performed Software Test Engineer Time In 06/25/23 13:37:00 Time Out 06/25/23 13:42:00 Procedure TRANSFORAMINAL EPIDURAL STEROID INJECTIO(Left) Comments Last Modified By: Adry Troy RN 06/25/23 13:41:29 Perioperative Protocols FTPM Pre-Care Text: Implements protective measures prior to operative or invasive procedure, confirms identity before the operative or invasive procedure, verifies operative procedure, surgical site, and laterality Entry 1 Procedure(s) TRANSFORAMINAL EPIDURAL Patient Identity Birthday, ID Band STEROID INJECTIO(Left) Verified (select at Check, Patient least 2): Participation Consents / H and P HandP, Surgery/Procedure Operative Site Present Verified Consent Marking Verified Surgical Site Yes Laterality Verified Yes Verified Procedure Verified Yes Correct Patient Yes Position Verified Availability Equipment, Medication, Prep Dry Yes Verified (If X-ray Applicable) PreOp Antibiotic No Time Out Adry Troy RN, Virgil Andrews RN, Tarsha Cruz MD, Shiv Pelletier Amy Time Out Complete 06/25/23 13:37:00 Outcomes Met? Yes Last Modified By: Adry Troy RN 06/25/23 13:37:39 Post-Care Text: The patient is free from signs and symptoms of injury caused by extraneous objects Allergy Information FTPM Pre-Care Text: Verifies allergies Entry 1 Allergies Reviewed? Yes Allergies Reviewed Self/Patient With Outcomes Met? Yes Last Modified By: Adry Troy RN 06/25/23 13:37:45 Post-Care Text: The patient received appropriate medication(s) safely administered during the perioperative period Surgical Procedures FTPM Entry 1 Procedure Description Procedure TRANSFORAMINAL EPIDURAL Modifiers Left STEROID INJECTION Surgeon Description L4/5 TFESI Primary Procedure Yes Primary Surgeon Tarsha FARFAN, Neymar Zelaya Start 06/25/23 13:40:00 Stop 06/25/23 13:41:00 Anesthesia Type MAC Surgical Service Pain Management Wound Class 1 - Clean Last Modified By: Adry Troy RN 06/25/23 13:41:30 General Case Data FTPM Pre-Care Text: Classifies surgical wound, implements aseptic technique, initiates traffic control Entry 1 Case Information OR Pain Proc Room Case Level Level 2 Wound Class 1 - Clean Specialty Pain Management Preop Diagnosis M54.16 Postop Same As Preop Yes Postop Diagnosis M54.16 Outcomes Met? Yes Last Modified By: Adry Troy RN 06/25/23 13:38:13 Post-Care Text: The patient is free from signs and symptoms of infection Skin Assessment (Pre Procedure) FTPM Pre-Care Text: Implements protective measures to prevent skin/ tissue injury due to thermal or mechanical sources Evaluates for signs and symptoms of physical injury to skin and tissue Entry 1 Skin Integrity Intact, [place], Warm, and Skin Abnormality No Dry Outcomes Met? Yes Last Modified By: Adry Troy RN 06/25/23 13:38:21 Post-Care Text: The patient is free from signs and symptoms of injury caused by extraneous objects Patient Positioning FTPM Pre-Care Text: Identifies physical alterations that require additional precautions for procedure-specific positioning, verifies presence of prosthetics or corrective devices, positions the patient, evaluates the patient for signs and symptoms of injury as a result of positioning Entry 1 Procedure TRANSFORAMINAL EPIDURAL Body Position Prone STEROID INJECTIO(Left) Feet Uncrossed? Yes Left Arm Position Resting at Side Right Arm Position Resting at Side Left Leg Position Extended Right Leg Position Extended Positioning Device Pillow Under Head Large, Safety Strap, Pillow Large Under Knees Press Points Checked Yes By Woodrow TREVIZO, Adry Arellano (more content not included)... Normal [facility] Main OR Preoperative Recordo n 06-25-2023 Main OR Preoperative Record Holding Area Document Type FTPM Summary Primary Physician: Neymar Willingham MD Finalized Date/Time: 06/25/23 13:18:07 Pt. Name: DENICEBARRYO.B./Sex: 1955 Male Med Rec #: [id number] Physician: Neymar Willingham MD Financial #: [id number] Pt. Type: P Room/Bed: / Admit/Disch: 06/25/23 12:30:18 - Institution: Case Times Holding FTPM Pre-Care Text: Verifies consent for planned procedure, identifies individual values and wishes concerning care, includes family members in perioperative teaching Secures patient's records' belongings, and valuables, maintains patient's dignity and privacy, and maintains patient confidentiality Entry 1 In Holding 06/25/23 13:16:00 Outcomes Met? Yes Last Modified By: Jennifer Mendieta RN 06/25/23 13:16:07 Post-Care Text: The patient participates in decisions affecting his or her perioperative plan of care The patient's right to privacy is maintained Surgery Checklist FTPM Entry 1 Patient Birthday, ID Band Procedure History and Physical, Identification: Check, Patient Verification: Surgical Consent, With Participation Patient NPO after Midnight: No Date/Time: 06/25/23 13:16:00 Results Reviewed 0800 apple pie and water Personal Items: Glasses, Jewelry Comments: Personal Items Pt. wearing one ring Complaints of Pain: Yes Comment: and glasses. Pain Comment: 09/26 left lower back Operative Site Yes pain Marking: Marked By: Dr. Willingham Location: left L4-L5 Availability Equipment, X-Ray Verified: Does Patient Smoke No Patient states Yes Comment - Adult friend-Ish postop adult Supervision supervision available Case Cancelled in No Holding Area see comments below for reason Last Modified By: Jennifer Mendieta RN 06/25/23 13:18:03 Finalized By: Jennifer Mendieta RN Document Signatures Signed By: Jennifer Mendieta RN 06/25/23 13:18 Jennifer Mendieta RN 06/25/23 13:18 Normal [facility] Operative Reporton Operative Report Patient: BARRY GALDAMEZ Age: 67 years Sex: Male : 1955 Associated Diagnoses: None Author: Neymar Willingham MD Procedure Procedure: Transforaminal Epidural Steroid Injections with Fluoroscopic Guidance at Left L4/5 Diagnosis: Lumbar Radiculitis Anesthesia: Local The patient was identified in the pre-op area. The procedure, including risks benefits and alternatives was discussed with the patient. The patient agreed to proceed. Informed consent was obtained and the site(s) marked. The patient was brought to the procedure room and placed in the prone position with padding under the abdomen to reduce lumbar lordosis. Time out was performed. The back was prepped and draped in sterile fashion with Chloraprep. Skin and subcutaneous tissues were anesthetized with 2 mL of Lidocaine 2% through a 25G needle. A 22G spinal needle was advanced under fluoroscopic guidance through the left L4/5 foramen into the epidural space. Isovue 0.5mL was injected under live fluoroscopy, which demonstrated appropriate epidural spread without vascular uptake. After confirmation of negative aspiration, a total of 1mL of 2% PF lidocaine, 1 mL PF normal saline, and 10mg of PF dexamethasone (10mg/1mL) were injected through the needle. The needle was removed and a bandage applied. The patient was brought to the recovery area in stable condition and then monitored for an appropriate period of time. The patient was discharged home in good condition with post-procedure instructions. No apparent complications. Epidural injection procedure Physical Exam: vital signs Vital Signs 06/25/2023 13:40 EST Heart Rate Monitored 61 bpm Systolic Blood Pressure 137 mmHg Diastolic Blood Pressure 75 mmHg SpO2 97 % 06/25/2023 13:10 EST Heart Rate Monitored 58 bpm LOW SpO2 97 % 06/25/2023 13:09 EST Temperature Axillary 36.6 DegC 06/25/2023 13:09 EST Systolic Blood Pressure 139 mmHg Diastolic Blood Pressure 72 mmHg Blood Pressure Location Left arm Mean Arterial Pressure, Monitered 94 mmHg 06/25/2023 13:09 EST Respiratory Rate 14 br/min . Normal [facility] Comment on above: Result Comment: Elec tronically Signed By: Tarsha FARFAN, Neymar Zelaya\.br\Date and Time Signed: 06/25/23 13:41 EST Patient Correspondenceon Patient Correspondence [id number] #1.00TIFF Normal [facility] Insurance Correspondence Off iceon 06-10-2023 Insurance Correspondence Office [id number] #1.00TIFF [facility] Office/Clinic Note-Physician on 06-08-2023 Office/Clinic Note-Physician [id number] 1#1.00TIFF [facility] Consent for Treatmenton 05-20 Consent for Treatment [id number] 6#1.00TIFF [facility] Consultation Noteon 06-05-20 Consultation Note Patient: BARRY GALDAMEZ Age: 67 years Sex: Male : 1955 Associated Diagnoses: None Author: Ariana Urena PA-C Subjective Chief complaint 06/05/2023 11:04 EST Lower left back pain . Patient is a 67-year-old male. He presents today for follow-up after undergoing a repeat L5-S1 epidural steroid injection. This was done on 05/19/2023 and has given him 70% relief. He states that everything is better on the right side. Unfortunate, he is noticing some pain on the left side only. He states that it goes down into his leg. Into his thigh and sometimes a little bit past the knee. He rates it a 3/10. It gets worse the more he is up and active. The pain returns on the left side only the more he walks. Historically, anti-inflammatory medications have not helped. Previous conservative treatments including physical therapy has not helped. The most improvement he has gotten has been from the epidurals. He is happy with how much relief he has gotten on the right side just not on the left side at this time. He is still having pain that is affecting his ambulatory status. Health Status Allergies: Allergic Reactions (Selected) No Known Allergies, Allergies (1) Active Reaction No Known Allergies None Documented Current medications: (Selected) Documented Medications Documented Co Q-10: Daily, Refills(s) 0 Metoprolol tartrate 50 mg Tab: 50 mg = 1 tab(s), Oral, Daily, High blood pressure Mobic 15 mg Tab: 15 mg = 1 tab(s), Oral, Daily, Refills(s) 0 atorvastatin 80 mg Tab: 80 mg = 1 tab(s), Oral, Daily, # 30 tab(s), Refills(s) 0 clopidogrel 75 mg Tab: TAKE 1 TABLET BY MOUTH THURSDAY THROUGH THURSDAY gabapentin 300 mg Cap: TAKE 1 CAPSULE BY MOUTH TID pt states he is on 800 mg TID traZODONE 50 mg Tab: 50 mg = 1 tab(s), Oral, Once a day (at bedtime), # 30 tab(s), Refills(s) 0 tramadol 50 mg oral tablet: 50 mg = 1 tab(s), Oral, q12hr, PRN as needed for pain, Refills(s) 0, Pain valsartan 80 mg Tab: 80 mg = 1 tab(s), Oral, Daily, # 30 tab(s), Refills(s) 0 Problem list: All Problems HTN (hypertension) / SNOMED CT 0026417267 / Confirmed Hip pain, left / SNOMED CT 5157673894 / Confirmed DJD Nocturia / SNOMED CT 581559148 / Confirmed Asthma / SNOMED CT 287060402 / Confirmed Impingement syndrome of right shoulder / SNOMED CT 921970460 / Confirmed Carpal tunnel syndrome of right wrist / SNOMED CT 10178448 / Confirmed Osteoarthritis / SNOMED CT 7483670632 / Confirmed Arthritis / SNOMED CT 4345696 / Confirmed Depression / SNOMED CT 69788763 / Confirmed Hypertension / SNOMED CT 5707754978 / Confirmed Erectile dysfunction / SNOMED CT 4553442585 / Confirmed Asymptomatic microscopic hematuria / SNOMED CT 1770977374 / Confirmed Weak urine stream / SNOMED CT 606932093 / Confirmed Screening PSA (prostate specific antigen) / SNOMED CT 817809269 / Confirmed Resolved: [facility] for falls [facility] Problem added when Risk for Falls Careplan was initiated. Resolved due to patient discharge. Objective Vital Signs 06/05/2023 11:04 EST Peripheral Pulse Rate 58 bpm LOW Respiratory Rate 14 br/min Systolic Blood Pressure 123 mmHg Diastolic Blood Pressure 65 mmHg Mean Arterial Pressure, Cuff 84 mmHg General: Alert and oriented, No acute distress. Eye: Normal conjunctiva. HENT: Normocephalic, Normal hearing. Cardiovascular: No edema. Musculoskeletal Normal range of motion. Normal strength. 5/5 lower extremity strength other than left hip flexion 5 -/5 Integumentary: Warm, Dry, [place]. Injection site well-healed Neurologic: Alert, Oriented. Psychiatric: Cooperative, Appropriate mood & affect. Results Review Lumbar MRI. 05/22/2022. L1-2 unremarkable. L2-3 disc degeneration. L3-4 moderate disc degeneration with disc protrusion. L4-5 moderate disc degeneration with severe ligamentum flavum hypertrophy with severe central stenosis. L5-S1 disc bulge. Mild narrowing of the left neural foramen. Impression and Plan Patient is a 67-year-old male with a past medical history significant for lumbar stenosis and lumbar neuritis. Recent repeat L5-S1 interlaminar epidural steroid injection gave him improvement. 70%. He states that the right side is completely resolved. Unfortunate, he is still noticing some pain on the left side. It is better but it is not quite better enough for him. He is still having difficulty walking far distances and doing certain things. We once again reviewed his imaging. Based on his imaging findings, his pain pattern, and the significant pain that he is still experiencing I would recommend a left-sided L4-5 transforaminal epidural steroid injection under fluoroscopy for both diagnostic and therapeutic purposes. Procedure was discussed. Risk and benefits were discussed. Patient is agreeable. He will follow-up 2 weeks after the injection for reevaluation. Call clinic sooner if necessary. OARRS reviewed ANABELL score: 38% Normal [facility] Comment on above: Result Comment: Elec tronically Signed By: Romel ARCE, rAiana\.br\Date and Time Signed: 06/05/23 11:22 EST\.br\Electronically Co-Signed By: Neymar Willinhgam MD\.br\Date and Time Co-Signed: 06/08/23 12:01 EST Office/Clinic Note-Physician on 06-05-2023 Office/Clinic Note-Physician [id number]#1 .00TIFF Normal [facility] Patient Correspondenceon Patient Correspondence [id number]#1 .00TIFF Normal [facility] Patient Correspondence [id number] 110 [id number]#1 .00TIFF Normal [facility] Patient History Officeon Patient History Office [id number] 110 [id number]#1 .00TIFF Normal [facility] Patient Handouton 05-27-2023 Patient Handout [id number] [facility] Outside Records [id number] [facility]23 Patient Handout [id number] [facility]/Surger yon 05-19-2023 Consent for Procedure/Surgery [id number] 2#1.00TIFF Normal [facility] Consent for Treatmenton 04-21 Consent for Treatment [id number] 3#1.00TIFF [facility] Discharge Instructionson Discharge Instructions [id number] 0#1.00TIFF Normal [facility] IntraOperative Documentson IntraOperative Documents [id number] 2#1.00TIFF Normal [facility] Main OR Intraoperative Recor don 05-19-2023 Main OR Intraoperative Record IntraOp Document Type FTPM Summary Primary Physician: Neymar Willingham MD Finalized Date/Time: 05/19/23 14:15:08 Pt. Name: BARRY GALDAMEZ Tomeka Bryant/Sex: 1955 Male Med Rec #: [id number] Physician: Neymar Willingham MD Financial #: [id number] Pt. Type: P Room/Bed: / Admit/Disch: 05/19/23 13:34:40 - Institution: Case Times FTPM Entry 1 Patient Times In Room 05/19/23 14:09:00 Out Room 05/19/23 14:15:00 Procedure Times Start 05/19/23 14:12:00 Stop 05/19/23 14:14:00 Anesthesia Times Last Modified By: Adry Troy RN 05/19/23 14:14:29 Case Attendance FTPM Entry 1 Entry 2 Entry 3 Case Attendee Neymar Willingham MD, RN, Adry Alanis RN, Iwona Snyder Role Performed Surgeon - Primary Newspaper Correspondent - Primary Scrub - Primary Time In 05/19/23 14:09:00 05/19/23 14:09:00 05/19/23 14:09:00 Time Out 05/19/23 14:15:00 05/19/23 14:15:00 05/19/23 14:15:00 Procedure LUMBAR EPIDURAL STEROID LUMBAR EPIDURAL STEROID LUMBAR EPIDURAL STEROID INJECTION(.) INJECTION(.) INJECTION(.) Comments Last Modified By: Woodrow TREVIZO, Adry Troy RN, Adry Lawrence RN 05/19/23 14:14:30 05/19/23 14:14:30 05/19/23 14:14:30 Entry 4 Case Attendee Nakul Montes Role Performed Software Test Engineer Time In 05/19/23 14:09:00 Time Out 05/19/23 14:15:00 Procedure LUMBAR EPIDURAL STEROID INJECTION(.) Comments Last Modified By: Adry Troy RN 05/19/23 14:14:30 Perioperative Protocols FTPM Pre-Care Text: Implements protective measures prior to operative or invasive procedure, confirms identity before the operative or invasive procedure, verifies operative procedure, surgical site, and laterality Entry 1 Procedure(s) LUMBAR EPIDURAL STEROID Patient Identity Birthday, ID Band INJECTION(.) Verified (select at Check, Patient least 2): Participation Consents / H and P HandP, Surgery/Procedure Operative Site Present Verified Consent Marking Verified Surgical Site Yes Laterality Verified Yes Verified Procedure Verified Yes Correct Patient Yes Position Verified Availability Equipment, Medication, Prep Dry Yes Verified (If X-ray Applicable) PreOp Antibiotic No Time Out Adry Troy RN, Given Participants Annabelle TREVIZO, Tarsha Goodwin MD, Jyoti Pelletier Bryce Time Out Complete 05/19/23 14:09:00 Outcomes Met? Yes Last Modified By: Adry Troy RN 05/19/23 14:09:52 Post-Care Text: The patient is free from signs and symptoms of injury caused by extraneous objects Allergy Information FTPM Pre-Care Text: Verifies allergies Entry 1 Allergies Reviewed? Yes Allergies Reviewed Self/Patient With Outcomes Met? Yes Last Modified By: Adry Troy RN 05/19/23 14:07:46 Post-Care Text: The patient received appropriate medication(s) safely administered during the perioperative period Surgical Procedures FTPM Entry 1 Procedure Description Procedure LUMBAR EPIDURAL STEROID Modifiers . INJECTION Surgeon Description L5-S1 TASHA Primary Procedure Yes Primary Surgeon Neymar Willingham MD Start 05/19/23 14:12:00 Stop 05/19/23 14:14:00 Anesthesia Type None Surgical Service Pain Management Wound Class 1 - Clean Last Modified By: Adry Troy RN 05/19/23 14:14:31 General Case Data FTPM Pre-Care Text: Classifies surgical wound, implements aseptic technique, initiates traffic control Entry 1 Case Information OR Pain Proc Room Case Level Level 2 Wound Class 1 - Clean Specialty Pain Management Preop Diagnosis M54.16 Postop Same As Preop Yes Postop Diagnosis M54.16 Outcomes Met? Yes Last Modified By: Adry Troy RN 05/19/23 14:10:10 Post-Care Text: The patient is free from signs and symptoms of infection Skin Assessment (Pre Procedure) FTPM Pre-Care Text: Implements protective measures to prevent skin/ tissue injury due to thermal or mechanical sources Evaluates for signs and symptoms of physical injury to skin and tissue Entry 1 Skin Integrity Intact, [place], Warm, and Skin Abnormality No Dry Outcomes Met? Yes Last Modified By: Adry Troy RN 05/19/23 14:07:53 Post-Care Text: The patient is free from signs and symptoms of injury caused by extraneous objects Patient Positioning FTPM Pre-Care Text: Identifies physical alterations that require additional precautions for procedure-specific positioning, verifies presence of prosthetics or corrective devices, positions the patient, evaluates the patient for signs and symptoms of injury as a result of positioning Entry 1 Procedure LUMBAR EPIDURAL STEROID Body Position Prone INJECTION(.) Feet Uncrossed? Yes Left Arm Position Resting at Side Right Arm Position Resting at Side Left Leg Position Extended Right Leg Position Extended Positioning Device Pillow Under Head Large, Safety Strap, Pillow Large Under Knees Press Points Checked Yes By Adry Troy RN Outcomes Met? Yes Last Modified By: Kip Troy RN (more content not included)... Normal [facility] Main OR Preoperative Recordo n 05-19-2023 Main OR Preoperative Record Holding Area Document Type FTPM Summary Primary Physician: Neymar Willingham MD Finalized Date/Time: 05/19/23 13:52:06 Pt. Name: BARRY GALDAMEZO.B./Sex: 1955 Male Med Rec #: [id number] Physician: Neymar Willingham MD Financial #: [id number] Pt. Type: P Room/Bed: / Admit/Disch: 05/19/23 13:34:40 - Institution: Case Times Holding FTPM Pre-Care Text: Verifies consent for planned procedure, identifies individual values and wishes concerning care, includes family members in perioperative teaching Secures patient's records' belongings, and valuables, maintains patient's dignity and privacy, and maintains patient confidentiality Entry 1 In Holding 05/19/23 13:48:00 Outcomes Met? Yes Last Modified By: Jennifer Mendieta RN 05/19/23 13:48:40 Post-Care Text: The patient participates in decisions affecting his or her perioperative plan of care The patient's right to privacy is maintained Surgery Checklist FTPM Entry 1 Patient Birthday, ID Band Procedure History and Physical, Identification: Check, Patient Verification: Surgical Consent, With Participation Patient NPO after Midnight: No Date/Time: 05/19/23 13:50:00 Results Reviewed 0800 waffles and a Personal Items: Glasses, Jewelry Comments: slush. Personal Items Pt. wearing one ring Complaints of Pain: Yes Comment: and glasses. Pain Comment: 11/26 lower back pain Operative Site Yes Marking: Marked By: Dr. Willingham Location: L5-S1 Availability Equipment, X-Ray Verified: Does Patient Smoke No Patient states Yes Comment - Adult -Sara postop adult Supervision supervision available Case Cancelled in No Holding Area see comments below for reason Last Modified By: Jennifer Mendieta RN 05/19/23 13:52:05 Finalized By: Jennifer Mendieta RN Document Signatures Signed By: Jennifer Mendieta RN 05/19/23 13:52 Normal [facility] Operative Reporton 3 Operative Report Patient: BARRY GALDAMEZ Age: 67 years Sex: Male : 1955 Associated Diagnoses: None Author: Tarsha FARFAN, Neymar Zelaya Procedure Procedure: Lumbar Epidural Steroid Injection with Fluoroscopic Guidance at L5/S1 Diagnosis: Lumbar radiculitis Anesthesia: Local The patient was identified in the pre-op area. The procedure, including risks benefits and alternatives was discussed with the patient. The patient agreed to proceed. Informed consent was obtained and the site(s) marked. The patient was brought to the procedure room and placed in the prone position with padding under the abdomen to reduce lumbar lordosis. Time out was taken. The back was prepped and draped in sterile fashion with Chloraprep. Skin and subcutaneous tissues were anesthetized with 6 mL of Lidocaine 2% through a 25G needle. An 18G Touhy needle was then advanced under fluoroscopic guidance (A/P and contralateral oblique views) onto the inferior lamina and then advanced cephalad into the L5/S1 epidural space using loss of resistance technique with a plastic MARC syringe. Isovue 2mL was injected under live fluoroscopy which demonstrated appropriate epidural spread without vascular uptake. After confirmation of negative aspiration, 6mL of PF normal saline and 10mg of PF dexamethasone (in 1mL) were injected. The needle was removed and a bandage applied. The patient was brought to the recovery area in stable condition and then monitored for an appropriate period of time. The patient was discharged home in good condition with post-procedure instructions. No apparent complications. Epidural injection procedure Physical Exam: vital signs Vital Signs 05/19/2023 13:49 EDT Heart Rate Monitored 59 bpm LOW SpO2 98 % 05/19/2023 13:49 EDT Temperature Axillary 36.6 DegC 05/19/2023 13:48 EDT Systolic Blood Pressure 153 mmHg HI Diastolic Blood Pressure 70 mmHg Mean Arterial Pressure, Monitered 98 mmHg 05/19/2023 13:40 EDT Respiratory Rate 14 br/min . [facility] Comment on above: Result Comment: Elec tronically Signed By: Tarsha FARFAN, Neymar Zelaya\.br\Date and Time Signed: 05/19/23 14:14 EDT Patient Correspondenceon Patient Correspondence [id number] #1.00CD:127 [facility] Insurance Correspondence Off iceon 04-13-2023 Insurance Correspondence Office [id number] #1.00CD:127 [facility] Consent for Treatmenton 03-21 Consent for Treatment [id number] #1.00CD:127 [facility] Consultation Noteon 04-08-20 Consultation Note Patient: BARRY GALDAMEZ Age: 67 years Sex: Male : 1955 Associated Diagnoses: None Author: Ariana Urena PA-C Subjective Chief complaint 04/08/2023 13:04 EDT lower ipback pain L>R and into left . Patient is a 67-year-old male. He presents today after a 3-month hiatus. Patient last underwent L5-S1 epidural steroid injection done on 12/10/2022 that gave him 100% relief for 6 weeks followed by a few more weeks of 80% relief followed by a few more weeks of 50% relief but over the last month or so he has noticed that the pain has become intense and is back to baseline. It is in the lower back and left greater than right leg. He rates the discomfort a 5?9/10 depending on what he is doing. Walking, bending, twisting, turning, and being active makes the pain worse. Anti-inflammatory medications have not helped. Previous conservative treatments including physical therapy has not helped. The most improvement he has gotten has been from the previous epidural and he is here today to discuss repeating this as he feels that this was very beneficial to him. Health Status Allergies: Allergic Reactions (Selected) No Known Allergies, Allergies (1) Active Reaction No Known Allergies None Documented Current medications: (Selected) Documented Medications Documented Co Q-10: Daily, Refills(s) 0 Metoprolol tartrate 50 mg Tab: 50 mg = 1 tab(s), Oral, Daily, High blood pressure Mobic 15 mg Tab: 15 mg = 1 tab(s), Oral, Daily, Refills(s) 0 atorvastatin 80 mg Tab: 80 mg = 1 tab(s), Oral, Daily, # 30 tab(s), Refills(s) 0 gabapentin 300 mg Cap: TAKE 1 CAPSULE BY MOUTH TID pt states he is on 800 mg TID traZODONE 50 mg Tab: 50 mg = 1 tab(s), Oral, Once a day (at bedtime), # 30 tab(s), Refills(s) 0 tramadol 50 mg oral tablet: 50 mg = 1 tab(s), Oral, q12hr, PRN as needed for pain, Refills(s) 0, Pain valsartan 80 mg Tab: 80 mg = 1 tab(s), Oral, Daily, # 30 tab(s), Refills(s) 0 Problem list: All Problems HTN (hypertension) / SNOMED CT 3402951181 / Confirmed Hip pain, left / SNOMED CT 9170007441 / Confirmed DJD Nocturia / SNOMED CT 045128025 / Confirmed Asthma / SNOMED CT 827467832 / Confirmed Impingement syndrome of right shoulder / SNOMED CT 817055164 / Confirmed Carpal tunnel syndrome of right wrist / SNOMED CT 84928405 / Confirmed Osteoarthritis / SNOMED CT 4796996112 / Confirmed Arthritis / SNOMED CT 5716368 / Confirmed Depression / SNOMED CT 92484233 / Confirmed Hypertension / SNOMED CT 4403843670 / Confirmed Erectile dysfunction / SNOMED CT 7948708318 / Confirmed Asymptomatic microscopic hematuria / SNOMED CT 4208065979 / Confirmed Weak urine stream / SNOMED CT 021554413 / Confirmed Screening PSA (prostate specific antigen) / SNOMED CT 544874614 / Confirmed Resolved: At risk for falls / SNOMED CT 411244043 Problem added when Risk for Falls Careplan was initiated. Resolved due to patient discharge. Objective Vital Signs 04/08/2023 13:04 EDT Peripheral Pulse Rate 65 bpm Respiratory Rate 20 br/min Systolic Blood Pressure 149 mmHg HI Diastolic Blood Pressure 74 mmHg Mean Arterial Pressure, Cuff 99 mmHg General: Alert and oriented, No acute distress. Eye: Normal conjunctiva. HENT: Normocephalic, Normal hearing. Cardiovascular: No edema. Musculoskeletal Normal range of motion. Normal strength. 5/5 lower extremity strength other than bilateral ADF and EHL 4+ to 5 -/5 but pain with bilateral seated straight leg raise. Integumentary: Warm, Dry, [place]. Neurologic: Alert, Oriented. Psychiatric: Cooperative, Appropriate mood & affect. Results Review Lumbar MRI. 05/22/2022. L1-2 unremarkable. L2-3 disc degeneration. L3-4 moderate disc degeneration with disc protrusion. L4-5 moderate disc degeneration with severe ligamentum flavum hypertrophy with severe central stenosis. L5-S1 disc bulge. Mild narrowing of the left neural foramen. Impression and Plan Patient is a 67-year-old male with a past medical history significant for lumbar stenosis and lumbar neuritis. He had significant response from previous L5-S1 epidural steroid injection and unfortunate, over last few weeks his pain has begun to return. Since he did well with the previous epidural I discussed with patient repeating the L5-S1 epidural steroid injection under fluoroscopy for both diagnostic and therapeutic purposes. MRI was reviewed. He has failed all reasonable conservative treatments. The most improvement he has ever gotten has been from the epidural. He wants to try and avoid surgery at all costs so we will repeat the injection. Follow-up 3 weeks after for reevaluation. Call the clinic sooner if necessary. ANABELL score: 60% Normal [facility] Comment on above: Result Comment: Elec tronically Signed By: Ariana Urena PA-C\.br\Date and Time Signed: 04/08/23 13:30 EDT\.br\Electronically Co-Signed By: García Castro DO\.br\Date and Time Co-Signed: 04/14/23 11:06 EDT Office/Clinic Note-Physician on 04-08-2023 Office/Clinic Note-Physician [id number] #1.00CD:127 Normal [facility] Patient Correspondenceon Patient Correspondence [id number] [id number] #1.00CD:127 Normal [facility] Patient Correspondence [id number] [id number] #1.00CD:127 Normal [facility] Patient History Officeon Patient History Office [id number] [id number] #1.00CD:127 [facility] Office Visit (Cardiology)on 03-26-2023 Follow-up visit Diagnoses/Problems Assessed Coronary artery disease involving [place] coronary artery of [place] heart without angina pectoris (414.01) (I25.10) Hypertension, benign (401.1) (I10) Mixed hyperlipidemia (272.2) (E78.2) Former smoker (V15.82) (Z87.891) quit as a teen Class 1 obesity with body mass index (BMI) of 34.0 to 34.9 in adult (278.00,V85.34) (E66.9,Z68.34) Orders Class 1 obesity with body mass index (BMI) of 34.0 to 34.9 in adult Healthy Weight Tips; Status:Complete - Retrospective Authorization; Done: 26Mar2023 Coronary artery disease involving [place] coronary artery of [place] heart without angina pectoris Start: Clopidogrel Bisulfate 75 MG Oral Tablet; ONE PILL MON -FRI ( 5 TIMES WEEKLY) SocHx: Former smoker Tobacco Use Screening; Status:Complete; Done: 26Mar2023 Patient Instructions Please bring all medicines, vitamins, and herbal supplements with you when you come to the office. Prescriptions will not be filled unless you are compliant with your follow up appointments or have a follow up appointment scheduled as per instruction of your physician. Refills should be requested at the time of your visit. B/P CHECK WITH DKS 2 MONTHS 6 MONTH WSS Chief Complaint BARRY GALDAMEZ is being seen for a 6 month follow-up of. Patient is a 67-year-old gentleman returns for follow-up. He has had 2 episodes of angina last of which was 6 weeks ago, relieved with sublingual nitroglycerin, none since. He is performing all his daily activities and ambulatory activities without any discomfort at this time. In November 2021 he underwent non-ST elevation GA with primary revascularization of the LAD diagonal branch performed by Dr. Elieser Landers, utilizing a 2.5 x 34 mm Paco stent to the distal LAD, 2.75 x 18 mm [place] stent in the mid LAD, and a 2.25 x 18 mm Paco stent to the diagonal branch at the bifurcation. Left ventricular function was completely normal other than apical hypokinesis at the time of the event. He is discontinued his dual antiplatelet therapy as of this past year after satisfying greater than 1 years worth of DAPT, he is hypertensive today. He has underlying hypertension, obesity and hyperlipidemia He is on no antiplatelet therapy at this time due to history of GI bleeding which had resolved after discontinuation of aspirin. Recommendations: Reinitiate clopidogrel 75 daily Thursday through Thursday for continued antiplatelet protection and therapy, blood pressure check in the next 6 weeks, I will follow-up again in 6 months, Will keep close eye on any recurrent angina, if recurrent then we will proceed with either stress imaging or possibly heart catheterization if necessary Surgical History Problems History of Appendectomy History of Arterial stent placement History of Cardiac catheterization History of Carpal tunnel surgery History of Colonoscopy History of Hip replacement History of Shoulder surgery Past Medical History Problems History of Encounter for immunization (V03.89) (Z23) Resolved Date: 19 Mar 2022 History of Pre-operative examination (V72.84) (Z01.818) Current Meds Medication NameInstruction Albuterol 90 MCG/ACT AERSINHALE 2 PUFFS EVERY 4 HOURS NEEDED Atorvastatin Calcium 80 MG Oral TabletTAKE 1 TABLET AT BEDTIME Co Q 10 100 MG Oral CapsuleTAKE DIRECTED. Gabapentin 800 MG Oral TabletTAKE 1 TABLET 3 TIMES DAILY. Meloxicam 15 MG Oral TabletTAKE 1 TABLET DAILY. Metoprolol Succinate ER 25 MG Oral Tablet Extended Release 24 HourTake 1 tablet daily Nitroglycerin 0.4 MG Sublingual Tablet SublingualPLACE 1 TABLET UNDER THE TONGUE EVERY 5 MINUTES UP TO 3 DOSES NEEDED FOR CHEST PAIN. Tadalafil 20 MG Oral TabletTAKE 1 TABLET DAILY 1 HOUR BEFORE NEEDED traMADol HCl - 50 MG Oral TabletTake 1 tablet twice daily as needed traZODone HCl - 50 MG Oral TabletTAKE 1 TABLET AT BEDTIME. Valsartan 160 MG Oral TabletTAKE 1 TABLET DAILY. Allergies Medication aspirin stomach ulcer; Recorded By: Miriam Russ; 03/19/2022 11:00:00 AM Social History Problems Daily caffeine consumption pop 1 daily Former smoker (V15.82) (Z87.891) quit as a teen No alcohol use No illicit drug use Review of Systems Constitutional: not feeling tired. Cardiovascular: chest pain, but no intermittent leg claudication and as noted in HPI. Respiratory: no cough and no shortness of breath. Gastrointestinal: no change in bowel habits and no blood in stools. Integumentary: no skin rashes. Neurological: no seizures and no frequent falls. All other systems have been reviewed and are negative for complaint. Vitals Vital Signs Recorded: 26Mar2023 11:21AM Heart Rate64, R Radial Ncfubgri761, LUE, Sitting Pgoqbyvtm61, LUE, Sitting Height6 ft Fsxsvs656 lb BMI Vxqaguepbg37.99 kg/m2 BSA Calculated2.37 Tobacco Useb) No PHQ-2 #1. Over the last 2 weeks have you felt down, depressed or hopeless? (If yes, answer PHQ-9 below)No PHQ-2 #2. Over the last 2 weeks have you felt little intere (more content not included)... Normal [place] Tobacco Screening.on 023 Adult depression screening assessment No [facility] [employer] 250 DO Work Phone: Fall risk assessment a) No falls within the last year [facility] [employer] 250 DO Work Phone: Tobacco use status [facility] b) No [facility] [employer] 250 DO Work Phone: Consent for Treatmenton 12-19 Consent for Treatment [id number] #1.00CD:127 Normal [facility] Consultation Noteon 01-10-20 Consultation Note Patient: BARRY GALDAMEZ [facility]: [id number] Age: 67 years Sex: Male : 1955 Associated Diagnoses: None Author: Ariana Urena PA-C Subjective Chief complaint 01/09/2023 13:12 EDT low back pain . Patient is a 67-year-old male. He has a past medical history significant for lumbar stenosis and lumbosacral neuritis. Patient underwent recent L5-S1 epidural steroid injection and he obtained 100% relief. At this time he is doing well. He is feeling well. He is comfortable and happy. Pain does not affect his walking or standing abilities. In fact, today he rates his discomfort a 0/10. He is able to do things he wants to do. Health Status Allergies: Allergic Reactions (Selected) No Known Allergies, Allergies (1) Active Reaction No Known Allergies None Documented Current medications: (Selected) Documented Medications Documented Co Q-10: Daily, Refills(s) 0 Metoprolol tartrate 50 mg Tab: 50 mg = 1 tab(s), Oral, BID, High blood pressure Mobic 15 mg Tab: 15 mg = 1 tab(s), Oral, Daily, Refills(s) 0 atorvastatin 80 mg Tab: 80 mg = 1 tab(s), Oral, Daily, # 30 tab(s), Refills(s) 0 gabapentin 300 mg Cap: TAKE 1 CAPSULE BY MOUTH TWICE A DAY prasugrel 10 mg Tab: TAKE 1 TABLET BY MOUTH EVERY DAY traZODONE 50 mg Tab: 50 mg = 1 tab(s), Oral, Once a day (at bedtime), # 30 tab(s), Refills(s) 0 tramadol 50 mg oral tablet: 50 mg = 1 tab(s), Oral, q12hr, PRN as needed for pain, Refills(s) 0, Pain valsartan 80 mg Tab: 80 mg = 1 tab(s), Oral, Daily, # 30 tab(s), Refills(s) 0 Problem list: All Problems HTN (hypertension) / SNOMED CT 9310282050 / Confirmed Hip pain, left / SNOMED CT 2572557561 / Confirmed DJD Nocturia / SNOMED CT 516054249 / Confirmed Asthma / SNOMED CT 189613956 / Confirmed Impingement syndrome of right shoulder / SNOMED CT 081349481 / Confirmed Carpal tunnel syndrome of right wrist / SNOMED CT 80113579 / Confirmed Osteoarthritis / SNOMED CT 6174853659 / Confirmed Arthritis / SNOMED CT 8021524 / Confirmed Depression / SNOMED CT 13184864 / Confirmed Hypertension / SNOMED CT 2715487487 / Confirmed Erectile dysfunction / SNOMED CT 7499577538 / Confirmed Asymptomatic microscopic hematuria / SNOMED CT 4909511973 / Confirmed Weak urine stream / SNOMED CT 536917553 / Confirmed Screening PSA (prostate specific antigen) / SNOMED CT 799080400 / Confirmed Resolved: At risk for falls / SNOMED CT 108655486 Problem added when Risk for Falls Careplan was initiated. Resolved due to patient discharge. Objective Vital Signs 01/09/2023 13:12 EDT Peripheral Pulse Rate 57 bpm LOW Respiratory Rate 18 br/min Systolic Blood Pressure 117 mmHg Diastolic Blood Pressure 63 mmHg Mean Arterial Pressure, Cuff 81 mmHg General: Alert and oriented, No acute distress. Overweight Eye: Normal conjunctiva. HENT: Normocephalic, Normal hearing. Cardiovascular: No edema. Musculoskeletal Normal range of motion. Normal strength. Integumentary: Warm, Dry, [place]. Injection site well-healed Neurologic: Alert, Oriented. Psychiatric: Cooperative, Appropriate mood & affect. Impression and Plan Patient is a 67-year-old male with a past medical history significant for lumbosacral stenosis and lumbosacral neuritis. Recent L5-S1 gave him 100% relief. At this time he does not have any pain or complaints. He does not have any concerns. We had a long discussion with the epidural. We discussed how often this can be done. At this time he feels that things are going great. He will call our office should his pain return and he require a repeat injection. Otherwise he is going to follow-up as needed. ANABELL score: 6% Normal [facility] Comment on above: Result Comment: Elec tronically Signed By: Ariana Urena PA-C\.br\Date and Time Signed: 01/09/23 13:29 EDT\.br\Electronically Co-Signed By: Ilya Bullock MD\.br\Date and Time Co-Signed: 01/14/23 11:33 EDT Office/Clinic Note-Physician on 01-09-2023 Office/Clinic Note-Physician [id number] 19#1.00CD:127 [facility] Patient Correspondenceon Patient Correspondence [id number] 23#1.00CD:127 [facility] Patient Correspondence [id number] 35#1.00CD:127 [facility] Patient History Officeon Patient History Office [id number] 76#1.00CD:127 [facility] Consent for Procedure/Surger yon 12-10-2022 Consent for Procedure/Surgery [id number] #1.00CD:127 [facility] Consent for Treatmenton 11-18 Consent for Treatment [id number] 05 [id number] #1.00CD:127 [facility] Discharge Instructionson Discharge Instructions [id number] [id number] #1.00CD:127 [facility] IntraOperative Documentson 0 12-10-2022 IntraOperative Documents [id number] #1.00CD:127 [facility] Main OR Intraoperative Recor don 12-10-2022 Main OR Intraoperative Record IntraOp Document Type FTPM Summary Primary Physician: Ilya Bullock MD Finalized Date/Time: 12/10/22 14:35:07 Pt. Name: BARRY GALDAMEZ/Sex: 1955 Male Med Rec #: [id number] Physician: Ilya Bullock MD Financial #: [id number] Pt. Type: P Room/Bed: / Admit/Disch: 12/10/22 13:26:05 - Institution: Case Times FTPM Entry 1 Patient Times In Room 12/10/22 14:27:00 Out Room 12/10/22 14:35:00 Procedure Times Start 12/10/22 14:30:00 Stop 12/10/22 14:34:00 Anesthesia Times Last Modified By: Iwona Alanis RN 12/10/22 14:34:40 Case Attendance FTPM Entry 1 Entry 2 Entry 3 Case Attendee Ara FARFAN, Ilya Alanis RN, Iwona Grayson RN, Kendra Barnes Role Performed Surgeon - Primary Newspaper Correspondent - Primary Scrub - Primary Time In 12/10/22 14:27:00 12/10/22 14:27:00 12/10/22 14:27:00 Time Out 12/10/22 14:35:00 12/10/22 14:35:00 12/10/22 14:35:00 Procedure LUMBAR EPIDURAL STEROID LUMBAR EPIDURAL STEROID LUMBAR EPIDURAL STEROID INJECTION(.) INJECTION(.) INJECTION(.) Comments Last Modified By: Annabelle TREVIZO, Iwona Alanis RN, Iwona Rodriguez RN 12/10/22 14:34:40 12/10/22 14:34:40 12/10/22 14:34:40 Entry 4 Case Attendee José BILLY(Ginny Cuevas Role Performed Software Test Engineer Time In 12/10/22 14:27:00 Time Out 12/10/22 14:35:00 Procedure LUMBAR EPIDURAL STEROID INJECTION(.) Comments Last Modified By: Iwona Alanis RN 12/10/22 14:34:40 Perioperative Protocols FTPM Pre-Care Text: Implements protective measures prior to operative or invasive procedure, confirms identity before the operative or invasive procedure, verifies operative procedure, surgical site, and laterality Entry 1 Procedure(s) LUMBAR EPIDURAL STEROID Patient Identity Birthday, ID Band INJECTION(.) Verified (select at Check, Patient least 2): Participation Consents / H and P HandP, Surgery/Procedure Operative Site Present Verified Consent Marking Verified Surgical Site Yes Laterality Verified Yes Verified Procedure Verified Yes Correct Patient Yes Position Verified Availability Equipment, Medication, Prep Dry Yes Verified (If X-ray Applicable) PreOp Antibiotic No Time Out Ara FARFAN, Ilya, Given Participants Annabelle TREVIZO, Kenan Goodwin RN, José Wagner RT(R), Ginny Time Out Complete 12/10/22 14:27:00 Outcomes Met? Yes Last Modified By: Iwona Alanis RN 12/10/22 14:28:35 Post-Care Text: The patient is free from signs and symptoms of injury caused by extraneous objects Allergy Information FTPM Pre-Care Text: Verifies allergies Entry 1 Allergies Reviewed? Yes Allergies Reviewed Self/Patient With Outcomes Met? Yes Last Modified By: Iwona Alanis RN 12/10/22 14:28:43 Post-Care Text: The patient received appropriate medication(s) safely administered during the perioperative period Surgical Procedures FTPM Entry 1 Procedure Description Procedure LUMBAR EPIDURAL STEROID Modifiers . INJECTION Surgeon Description L5-S1 TASHA Primary Procedure Yes Primary Surgeon Ilya Bullock MD 12/10/22 14:30:00 Stop 12/10/22 14:34:00 Anesthesia Type None Surgical Service Pain Management Wound Class 1 - Clean Last Modified By: Iwona Alanis RN 12/10/22 14:34:57 General Case Data FTPM Pre-Care Text: Classifies surgical wound, implements aseptic technique, initiates traffic control Entry 1 Case Information OR Pain Proc Room Case Level Level 2 Wound Class 1 - Clean Specialty Pain Management Preop Diagnosis M48.062 Postop Same As Preop Yes Postop Diagnosis M48.062 Outcomes Met? Yes Last Modified By: Iwona Alanis RN 12/10/22 14:28:55 Post-Care Text: The patient is free from signs and symptoms of infection Skin Assessment (Pre Procedure) FTPM Pre-Care Text: Implements protective measures to prevent skin/ tissue injury due to thermal or mechanical sources Evaluates for signs and symptoms of physical injury to skin and tissue Entry 1 Skin Integrity Intact, [place], Warm, and Skin Abnormality No Dry Outcomes Met? Yes Last Modified By: Iwona Alanis RN 12/10/22 14:29:02 Post-Care Text: The patient is free from signs and symptoms of injury caused by extraneous objects Patient Positioning FTPM Pre-Care Text: Identifies physical alterations that require additional precautions for procedure-specific positioning, verifies presence of prosthetics or corrective devices, positions the patient, evaluates the patient for signs and symptoms of injury as a result of positioning Entry 1 Procedure LUMBAR EPIDURAL STEROID Body Position Prone INJECTION(.) Feet Uncrossed? Yes Left Arm Position Resting at Side Right Arm Position Resting at Side Left Leg Position Extended Right Leg Position Extended Positioning Device Pillow Under Head Large, Safety Strap, Pillow Large Under Knees Press Points Checked Yes By Iwona Alanis RN Outcomes Met? Yes (more content not included)... Normal [facility] Main OR Preoperative Recordo n 12-10-2022 Main OR Preoperative Record Holding Area Document Type FTPM Summary Primary Physician: Ilya Bullock MD Finalized Date/Time: 12/10/22 13:34:32 Pt. Name: BARRY GALDAMEZ Tomeka Madden/Sex: 1955 Male Med Rec #: [id number] Physician: Ilya Bullock MD Financial #: [id number] Pt. Type: P Room/Bed: / Admit/Disch: 12/10/22 13:26:05 - Institution: Case Times Holding FTPM Pre-Care Text: Verifies consent for planned procedure, identifies individual values and wishes concerning care, includes family members in perioperative teaching Secures patient's records' belongings, and valuables, maintains patient's dignity and privacy, and maintains patient confidentiality Entry 1 In Holding 12/10/22 13:32:00 Outcomes Met? Yes Last Modified By: Jennifer Mendieta RN 12/10/22 13:33:02 Post-Care Text: The patient participates in decisions affecting his or her perioperative plan of care The patient's right to privacy is maintained Surgery Checklist FTPM Entry 1 Patient Birthday, ID Band Procedure History and Physical, Identification: Check, Patient Verification: Surgical Consent, With Participation Patient NPO after Midnight: No Date/Time: 12/10/22 13:33:00 Results Reviewed 0600 banana Personal Items: Jewelry Comments: Personal Items Pt. wearing one ring. Complaints of Pain: Yes Comment: Pain Comment: 5/10 lower back pain Marked By: Dr. Bullock Location: L5-S1 Availability Equipment, X-Ray Verified: Does Patient Smoke No Patient states Yes Comment - Adult friend-Irma postop adult Supervision supervision available Case Cancelled in No Holding Area see comments below for reason Last Modified By: Jennifer Mendieta RN 12/10/22 13:34:28 Finalized By: Jennifer Mendieta RN Document Signatures Signed By: Jennifer Mendieta RN 12/10/22 13:34 Jennifer Mendieta RN 12/10/22 13:34 Normal [facility] Patient Correspondenceon Patient Correspondence [id number] 7#1.00CD:127 Normal [facility] Office Visit (Cardiology)on 10-29-2022 Follow-up visit Diagnoses/Problems Assessed Hypertension, benign (401.1) (I10) Class 1 obesity with body mass index (BMI) of 34.0 to 34.9 in adult (278.00,V85.34) (E66.9,Z68.34) Orders Class 1 obesity with body mass index (BMI) of 34.0 to 34.9 in adult Healthy Weight Tips; Status:Complete; Done: 29Oct2022 Patient Instructions PLAN: Through informed decision making process incorporating patients unique circumstances, the following treatment plan will be initiated: 1. Prescription drug management of cardiovascular medication for efficacy, adherence to treatment, side effect assessment and polypharmacy. Current treatment clinically warranted and to continue without modifications. 2. Return for follow-up; in the interim, contact the office if new symptoms arise. Dr. Fuller as scheduled Chief Complaint Blood pressure f/u and medication change: 'blood pressure is doing fine' BARRY GALDAMEZ is being seen for a 1 month follow-up of hypertension and a medication change. Patient presents to the office ambulatory with steady gait. Last evaluated in clinic Dr. Fuller September 2022. At that time, dose of valsartan increased to 160 mg daily. Patient has been compliant with dosing. He denies any type of side effects including dizziness or lightheadedness. He follows his blood pressure routinely at home and systolic blood pressures have been consistently below 125. Blood pressure remains optimal in the office today. Otherwise, patient denies any change in overall cardiovascular status since last evaluation in clinic. Adhering to 2017 AHA/ACC Guideline for the Prevention, Detection, Evaluation, and Management of High Blood Pressure in Adults: - Encouraged primary lifestyle modifications including consumption of healthy diet, reduced sodium intake, moderation in alcohol intake, weight loss and increased physical activity. Discussed the dynamic nature of coronary artery disease and the importance of seeking medical attention if new symptoms arise. History of Present Illness The patient presents for follow-up of essential hypertension. The patient states he has been doing well with his blood pressure control since the last visit. Comorbid Illnesses: coronary artery disease. Symptoms: denies impaired vision, denies dyspnea, denies chest pain, denies intermittent leg claudication and denies lower extremity edema. Associated symptoms include no headache. Home monitoring: The patient checks his blood pressure regularly. Blood pressure control has been good. Surgical History Problems History of Appendectomy History of Arterial stent placement History of Cardiac catheterization History of Carpal tunnel surgery History of Colonoscopy History of Hip replacement History of Shoulder surgery Past Medical History Problems History of Encounter for immunization (V03.89) (Z23) Resolved Date: 19 Mar 2022 Current Meds Medication NameInstruction Albuterol 90 MCG/ACT AERSINHALE 2 PUFFS EVERY 4 HOURS NEEDED Atorvastatin Calcium 80 MG Oral TabletTAKE 1 TABLET AT BEDTIME. Co Q 10 100 MG Oral CapsuleTAKE DIRECTED. Meloxicam 15 MG Oral TabletTAKE 1 TABLET DAILY. Metoprolol Succinate ER 25 MG Oral Tablet Extended Release 24 HourTAKE 1 TABLET DAILY. Nitroglycerin 0.4 MG Sublingual Tablet SublingualPLACE 1 TABLET UNDER THE TONGUE EVERY 5 MINUTES UP TO 3 DOSES NEEDED FOR CHEST PAIN. Tadalafil 20 MG Oral TabletTAKE 1 TABLET DAILY 1 HOUR BEFORE NEEDED traMADol HCl - 50 MG Oral TabletTake 1 tablet twice daily as needed traZODone HCl - 50 MG Oral TabletTAKE 1 TABLET AT BEDTIME. Valsartan 160 MG Oral TabletTAKE 1 TABLET DAILY. Patient did not bring medication list or bottles. Updated verbally with patient Allergies Medication aspirin stomach ulcer; Recorded By: Miriam Russ; 03/19/2022 11:00:00 AM Social History Problems Daily caffeine consumption pop 1 daily Former smoker (V15.82) (Z87.891) quit as a teen No alcohol use No illicit drug use Review of Systems Constitutional: not feeling tired. Cardiovascular: no chest pain, no palpitations and no lower extremity edema. Respiratory: no shortness of breath during exertion, no orthopnea and no PND. Vitals Vital Signs Recorded: 29Oct2022 01:07PM Heart Rate66, R Radial Audusupt920, RUE, Sitting Lgcbzkgpc09, RUE, Sitting Height6 ft Jngebr562 lb BMI Hlxcdydwzm41.72 kg/m2 BSA Calculated2.37 Tobacco Useb) No Falls Screening (Age 18+)a) No falls within the last year Physical Exam Constitutional: alert and in no acute distress. Neck: neck is supple, symmetric, trachea midline, no masses . Pulmonary: no increased work of breathing or signs of respiratory distress and lungs clear to auscultation. Cardiovascular: JVP was normal, regular rhythm, normal S1 and S2, no murmurs and no edema . Abdomen: abdomen non-tender, no masses . Skin: skin warm and dry, normal skin turgor . Psychiatric oriented to person, place and time and normal mood and affect . (more content not included)... [facility] [place] Office/Clinic Note-Physician on 09-23-2022 Office/Clinic Note-Physician [id number] 8#1.00CD:127 Normal [facility] Office Visit (Cardiology)on 09-18-2022 Follow-up visit Diagnoses/Problems Assessed Coronary artery disease involving [place] coronary artery of [place] heart without angina pectoris (414.01) (I25.10) History of PTCA (V45.82) (Z98.61) NSTEMI, initial episode of care (410.71) (I21.4) Mixed hyperlipidemia (272.2) (E78.2) Hypertension, benign (401.1) (I10) Former smoker (V15.82) (Z87.891) quit as a teen Class 2 obesity with body mass index (BMI) of 35.0 to 35.9 in adult (278.00,V85.35) (E66.9,Z68.35) Pre-operative examination (V72.84) (Z01.818) Orders Class 2 obesity with body mass index (BMI) of 35.0 to 35.9 in adult Healthy Weight Tips; Status:Complete - Retrospective Authorization; Done: 18Sep2022 Some eating tips that can help you lose weight.; Status:Complete - Retrospective Authorization; Done: 18Sep2022 Hypertension, benign Start: Valsartan 160 MG Oral Tablet; TAKE 1 TABLET DAILY Pre-operative examination IO EKG Electrocardiogram- 12 Lead; Status:Complete; Done: 18Sep2022 SocHx: Former smoker Tobacco Use Screening; Status:Complete; Done: 18Sep2022 Patient Instructions Please bring all medicines, vitamins, and herbal supplements with you when you come to the office. Prescriptions will not be filled unless you are compliant with your follow up appointments or have a follow up appointment scheduled as per instruction of your physician. Refills should be requested at the time of your visit. Patient to stop Prasugrel in November 2022. Patient will be clear for surgery (injections) from a cardiac standpoint in November 2022 Blood Pressure Follow Up In 1 month Follow up in [6 ] months Chief Complaint BARRY GALDAMEZ is being seen for a 6 month follow-up of. 67-year-old gentleman here for preoperative risk assessment and clearance prior to back injections to be performed by Dr. Bullock. Patient is doing well from a cardiovascular standpoint he had 1 episode of angina several months ago and none since that time. He is otherwise been doing his job, walking daily (relatively sedentary) limited by back discomfort but with no recurrent angina, he has had no hospitalizations, he denies shortness of breath He has a history of non-STEMI with PCI's of the LAD diagonal bifurcation with Dr. Elieser Núñez in November 2021 with preserved left ventricular function. He has underlying comorbidities to include hyperlipidemia, hypertension and obesity. Today's ECG reveals sinus rhythm with right bundle branch block, unchanged from November 2021. Lab work from the past year reviewed. He is a non-smoker nondiabetic He is slightly hypertensive today, we will therefore escalate his valsartan 160 mg daily, his spinal injections are exceedingly low risk; he can proceed after completion of 1 year of DAPT which will be November 2022 at which point we can discontinue Effient altogether, proceed 7 days after discontinuation and then continue with single agent aspirin only we will follow-up otherwise in 1 year Surgical History Problems History of Appendectomy History of Arterial stent placement History of Cardiac catheterization History of Carpal tunnel surgery History of Colonoscopy History of Hip replacement History of Shoulder surgery Past Medical History Problems History of Encounter for immunization (V03.89) (Z23) Resolved Date: 19 Mar 2022 Current Meds Medication NameInstruction Albuterol 90 MCG/ACT AERSINHALE 2 PUFFS EVERY 4 HOURS NEEDED Atorvastatin Calcium 80 MG Oral TabletTAKE 1 TABLET AT BEDTIME. Co Q 10 100 MG Oral CapsuleTAKE DIRECTED. Meloxicam 15 MG Oral TabletTAKE 1 TABLET DAILY. Metoprolol Succinate ER 25 MG Oral Tablet Extended Release 24 HourTAKE 1 TABLET DAILY. Nitroglycerin 0.4 MG Sublingual Tablet SublingualPLACE 1 TABLET UNDER THE TONGUE EVERY 5 MINUTES UP TO 3 DOSES NEEDED FOR CHEST PAIN. Prasugrel HCl - 10 MG Oral TabletTAKE 1 TABLET DAILY. Tadalafil 20 MG Oral TabletTAKE 1 TABLET DAILY 1 HOUR BEFORE NEEDED traMADol HCl - 50 MG Oral TabletTake 1 tablet twice daily as needed traZODone HCl - 50 MG Oral TabletTAKE 1 TABLET AT BEDTIME. Valsartan 80 MG Oral TabletTAKE 1 TABLET DAILY. Patient did not bring medication list or bottles. Updated verbally with patient Allergies Medication aspirin stomach ulcer; Recorded By: Miriam Russ; 03/19/2022 11:00:00 AM Social History Problems Daily caffeine consumption pop 1 daily Former smoker (V15.82) (Z87.891) quit as a teen No alcohol use No illicit drug use Review of Systems Constitutional: not feeling tired. Cardiovascular: chest pain and palpitations, but no intermittent leg claudication and as noted in HPI. Respiratory: shortness of breath during exertion, but no cough and no shortness of breath. Gastrointestinal: no change in bowel habits and no blood in stools. Integumentary: no skin rashes. Neurological: dizziness, but no seizures and no frequent falls. All other systems have been reviewed and are negative for complaint. Vitals Vital Signs Recorded: 18Sep2022 12:00PMRe (more content not included)... [facility] [place] Tobacco Screening.on 023 Adult depression screening assessment No [facility] [address] DO Work Phone: Fall risk assessment a) No falls within the last year [facility] [address] DO Work Phone: Tobacco use status [facility] b) No [facility] 250 DO Work Phone: Insurance Correspondence Off ice09-09-2022 Insurance Correspondence Office [id number] 5#1.00CD:127 Normal [facility] Coding Summary.on 09-08-2022 Coding Summary. CD:[id number] Gh0bWw+PGhlYWQ+PE1FV IZdN36kwIGzyL6PQ1wZZ D4LXGWMRMOWOZ5QDQ5na DN7LMajR1MivbOl NdbqxDTpZH05PDx3RZB1 uLysVLgmtG8mpCHxI1n9 McIkND90iX62BDbsJJCi YaN7NtZycxvjdDKw P0tgYjYgbAWrTly+PHRh YmxlIHdpZHRoPScxMDAl WyFizQcwFQ4rAg6eBEFx LWNvbGxhcHNlOiBj i7ggSQUnSLohAE6qyOft X9PqwFE7PLVvv6o2Rn73 dHI+IATkCUO6iPpaFIrh w623RaZst7yrDCM6 qBZdLIbwHPQ5L82gy2P9 CYLzPTQnYXL6yXF5gY2g eRghytbuT8QxxIGoSbN6 GNE5mAGjcJ9ayAkk qzymwY6cCoo+Z94ONB2R HIEYFR1ACtq1P5GwXypr dHI+XN61QADnID68kGMo rWVqy9ehpLd0SfVf MOKcTYN3uKslONozp3Xk KGYeP07uwCMfo7B3WYXo pZrmgAFxKjHnyCB2lN3z RWssbsbax2pkpnsm Pkasm7eycc21dP76Z40a SGqlMGYnRCD4WXVmCAPa eYgmmj6jnW2kBy9+IDxj k2zli5szhRg3CwAm VCLkddXffXhgYED7y0Ct We89R8RouQydk2RaLbp3 tq52fFLwq6B0mCU9VPds JEWriF0zQCbqWbV1 PMWxCdWapE59nSOdBSvo Ll3stMqnwHunUD1fOEEi ngqsVDIinY1tSKSbdAUg fZxlQW8zMDVbunuf m719HjDqECQ2KFOgbXWg W0OrnT5qWhWgNVCnDCLx M9QdpHAzLMigF917AJix FtV9CQJdlmDuT0Nw WCJebJclTwU7o7H7Rc7C j9VpdiilBTP4NDbkRNIg HePjJcVaSbZ9J7MtRqs5 GPIgyDxtUP4nP0Bf KKKmuulcydctxLW7AWJx RZCjqO14kVHzVBfqDi4s t8R0l329YTLbNFWrkF94 Hd0ylTjpYGBhzDYE wO9vwusay6ivwqafUnLb SVKzEAw9NPm0ENUtaGgy EyRbKWZ4ZlO9UPF7jMBj oT7ltVklsowuiX9c Oyc+V79maE3zGFP7MXY9 kuyeQIVwkgWtXJ82SI36 J1KyVsbpxJUsaHH+PGRp qjVktDaeJL9xKwXf w6rnn7MiWDmzN2FzWJEz YNumYnd2BOQfFQU2gEW3 aG1tPUMwVMwug0W3bOL0 B0PbjxCvfl9fk0dp IGNlFXquY46ipLZbk9A7 HYBmwFD4VZDmtSjcKmWv hH90Ycz+VGJkpVuij9Av Wsdgm8cwn1kifBj5 IjMwJSIgdmFsaWduPSJ0 j6KwZb38Y39zXMdeKAZw TPJaIQHlXNUnwKhxhw4h rJ7pFu9+PGNvbCB3 jBA6fF7jQHJeMsH3FMkf G568BeLsyBIwRfzeh1pf u6nvuKk3QyKsNIJnzxUp vCkaNZB2i8MhDb79 L16uVEtjNHFuLJVoCUAw BCQtwGydwc8zjH8pYo0+ WR7lz8shnn72zH44gVZ+ QYGxOZN4bFghISuw WEGdgW0aCFkrWcM4YCJn AqEoyH08mFElRInaYw0m bYoedDqoZJ7gTZFbwzqr d385XiQwm4ihOCQr pBBnUOqsKOV9I50og2A8 EXZlBDZjJNH0mUQ1eG8v bGlnbjogbGVmdDsgdmVy mRxtNKteJZlzN411 IHRvcDsnPlBhdGllbnQg VoXcKOs6I4OyYpc5IICo iXjrOR3kvGBrBFzwIm0f iJvugKvlSA0oCFOa qlosc007QrPxt0wlIVDf mCUwMVydARC3S35bt3S2 VHRcHGYzOVW1qYW7wX6x bGlnbjogbGVmdDsg nbSdcYuhYApfFAvgZ107 IHRvcDsnPkJpcnRoIERh lUN6SH59DM02xJRem4H1 yIA2Z5PpDSOnufxq aneulXG3FPIiJDWoqT68 Ze2kxUzqVh9qGKVpDGM6 BPAmgAVxZ8ZqvJ0rAtXz YYUyWFAaB8GzkRFk UTbgF158BYpoJgE1DIMj teOyW9CzBTIgdIunJeW6 h8Z1Yf6ZI7R6SR72GF53 gOLxh3P2pHL9Y6Xj GASpdeezwylwrWD0ZEJf ZWZfmT38Vb7bhZkcDx7z IFMyOKO2MWVoiVUcG8Hr sZ1cGyEsYZEyBIHw W8DofSUeXQfyM464ETtv UiY6OIHihgWoP0TvENHx gTupLmD1r0Q2Hq5HQTk7 QL38SQ64yZCag1X1 bYZ9X5BiQLGdfepblwoq vDZ3GHDkROPifM45Zb4m aJmnVs9jXIHsNIP7FZLj aFGuP4RrzM2rMzLi BEVwOHFoK5FmwSBmDTna U770EAonVsK2THBupkWl K4NhZNSebDdpHyR4l9H0 Lg3VZPZaYH59GPU0 xKE3NB99XV96T3UsPzma dGFibGU+PHRhYmxlIHdp ZHRoPScxMDAlJyBzdHls GZ8xKn1cOENeTQNn fLtnvJMrJmJfn3xiHTEl XQvdYL3dsRczB3XobSV4 QIBor4f7Ao97Y96oO3Ma dXA+RYZkvHU7fBV1 fZ1nSuNnBgV9ZLbtZ694 EtUvwJSwKldmr2vmi6fh pZm0TaM3LREsmcIynImu KIN6w2RrRj90W16d IHdpZHRoPSIxNSUiIHZh wWclrs2trV7gJt5+PGNv iGP5pZJ0vN6yLlSiGfF8 LXqkQ559YnKigEHq Ihbpd1het4wzkXa0LdRj CTTcguRcyStwTYV1q3Dk Zv23A3GpkGwrr2MjLxn5 ai62bUVet2F0zBC2 I8XdSKVjqogqcYUlcNiw SB9wFWDpqqlnWGUcgK1e BBCiB1r4EpDoJuR2JTkg Y6ZtmnY9AWEruYHg SPdlMDO2F55qz0R6NFMn VZLvIYA4fKI3qG1pyNzd bjogbGVmdDsgdmVydGlj PBdhZMweF907DMNv cHscVEGkiB5oKLKipJNi oEtpNY1tZZUonhtbPpDL SO3IWYzzI0QUJzPpRNje dGQ+QULkLRD3vZup KCoeZNNefM3jIFJpA3t7 DbUaMmD4LWzeN5CaYYVl zetqWw64uV1lRgQuIdH4 VBpgV7YvqrT8JVGh sYMtLGgnSFX5F38gi7N8 HUOwJNBeCDO6sTY7hL3k bGlnbjogbGVmdDsgdmVy cXhpZAixJXavY583 IHRvcDsnPjAxLzMxLzE5 PZL8K4VqCju9FGNivDnt ZL5ezCTdKHlrCb1inVzt zFclNW8lORWcbzxe NPGtdP7bCVJkdXAwqCyh LG7tMENblclwl337OoPl LEX8MBDmmHWaL5DvoN1w EeUkPQOyOQOeV6Ve fPIaKYtkW458IQbgMhX8 XHXjqoSxW6ZfJKWumPpm OnE0l2U4Ko17TzNRJDEt czwvdGQ+PHRkIHN0 tYgtGDbiZAIjsS1yGIKn P5t9RxReRbD4IDleE1Ix QZNnjmodRa95yB9sSkTg XnA0GZprI7YadbH6 MDMioEKxDCjmLXM0Z28r u6U6IRHjVPKhZDG7sTT9 lS8uoWeyikchcKKboXob dmVydGljYWwtYWxp T711SIIkiAqjBh7zmAM9 Q8FqRzw7AHLzgUdqWU4g iNZwRKbsMd0wsOycnKic SK8oUYOwjkbwUNJu uP0nSDUcyMVsuSipJH1s BCOfpcpti384XiKkVSU6 WOSsaZZjY5FojE9lKaRu FHNhRYMeJ2WrgXOt LGxwV992XMpuLwX1DSPd tnWgS9DcWMYaiDrfUzS2 r4R1Be1ROSarWI4wdgRx YW4idjF8P3IbHstv dHI+DR37WWBvEW02wFCb oRTox5mqaTx6VwSpKNJc MLK7lBleNQnyd2XzPWGy W48beKEol4B3WVHi oUgnvEGvDkWyiIO2lK0l IAxdbowif6sqvqpwZvkw x3cetj33wH67C38kIQwq ZHRoPSIzMCUiIHZh xIutif3rwU7gUa7+PGNv wVH8hRZ0yI9iWyLuYwU0 ZQosJ013EoPnsUGlTnni f6mwu1jmnZt4NtEz SMSozaRqrJptTDY7g1Zl Bq94B50xDVjpGREhTELg VTChYHXjuYhudq7ttT8x Ii8+GD6xs2qfsf18 cB87lEB+XAMuYUY8yTtt MHvcFWQtoM9tKWzuBfY0 ZHVuQnWpdI64bMOqUTcx Io0bsRabvCppHV2h OUVwhhdni854OwZot5ne JOWwbTVvRNfaMDW5Q72b r4O9KEYjLUHjWAK6cWC3 lH6ieOynfzjdcHWt dDsgdmVydGljYWwtYWxp G080MJXuePodCpRufYDh T2lgqzAMGO2yGmfkbBF+ LXYqPYV3rRldSDlh NKSnmR7sGUIiE6m7BxEv YfE0BOlzQ7UlzuE6WKMw xVEvBSRpcHBWcT5dmadw a7fllzreYhHyCFZb XOn8RVs7UEUkdRvrZeTm PBO2BbI0PDG0sJXaaU0r fHiueleuqW5yAkc+RklO OjwvdGQ+PHRkIHN0 qWwnVQcqJJRmcP3qQAVo X3z3NlNaBzG8LAjbB4Jv yhZ4SVKhvCUbPISlzZJM dR7fqfirx2feayot NzHyRWXgUPd3TLk4FALy yJjoYmMuIMB4EoN5VYN5 dCMstQ3zkAnvstjljY6x Oyc+TVJOOjwvdGQ+ UBOoMSE7nUdvYIhiWCSf mT6cYPFyT0m7HsLgEbH9 FMnaB1XolkK0KFLatVNb HTSbrUXTvU9udsut j9wjaixsYzGbTVUnYUy1 ATj0QGKumIgqXfUfLVZ4 VpZ9JDN1kVVgsM9zcVcp zscvbH5rSvg+UGF5 KKP5QN77JD68A0ZtKinh dGFibGU+PHRhYmxlIHdp ZHRoPScxMDAlJyBzdHls DF8pUf0qHZHnKAEv bGxh (more content not included)... Normal [facility] Legal Correspondence Officeo n 09-05-2022 Legal Correspondence Office [id number] #1.00CD:127 Normal [facility] Consent for Treatmenton 08-20 Consent for Treatment [id number] #1.00CD:127 [facility] HIPAA Forms Officeon 023 HIPAA Forms Office [id number] #1.00CD:127 [facility] Legal Correspondence Officeo n 09-04-2022 Legal Correspondence Office [id number] #1.00CD:127 [facility] Office/Clinic Note-Physician on 09-04-2022 Office/Clinic Note-Physician [id number] #1.00CD:127 [facility] Outside Records Officeon Outside Records Office [id number] #1.00CD:127 Normal [facility] Patient Correspondenceon Patient Correspondence [id number] #1.00CD:127 [facility] Patient Correspondence [id number] #1.00CD:127 [facility] Patient Correspondence [id number] #1.00CD:127 [facility] Patient Correspondence [id number] #1.00CD:127 Normal [facility] Patient Correspondence [id number] #1.00CD:127 [facility] Patient History Officeon Patient History Office [id number] #1.00CD:127 [facility] Coding Summary.on 07-17-2022 Coding Summary. CD:[id number] Gh0bWw+PGhlYWQ+PE1FV PJrS70upRDvrL9YK5aXP E3XJISURZFKHU3CIO3oz MO5SLgaU4QwzdFy QtdqoJOnIP24IVg8TDZ6 fHdhYSvucP9prVAoZ4b0 WuTwJG41eC47XZetSYUo EiY7KpWsigrflKIm L5gvWkKorCDgVdt+PHRh YmxlIHdpZHRoPScxMDAl IjYiiOvbST9lDo9kYZPq LWNvbGxhcHNlOiBj t6hrFCEkUPtmQT2amMvy M9NllVM6GZTea6h6Am25 dHI+UIYyKGU4jMrcRJwj g167IbZky3xgFSA5 mWScLGzvGNP4Z47le7N3 UVPkGLUuWMP5fOM7lV8j mEqfphbxC3FaqNBkOxK4 HRO0wHIhvJ3dsAvh oedocZ6sVmc+M00MYJ5K ALXMME0BNpe0C8AwKrgm dHI+JM88OZXgXG45eEFg eAInx1djtYa5YrJe JAFpPDL4xYbhRYcts4Nl QODnI35fuLCza5Y2FCSq wCvpsDJsObLqbLX7aN3p LMypkkfni4rzyoex Gqdkz3lxrm21pB19W96x VAlfCIVtYNT1DSBkBBFv lAqxui4sgI4jOt5+IDxj o7bqn9ckxBk9NlOt GCMmgyZqnPviPEG5b2Tc Lv19F6PncGylx0YbImv9 pe54iZFtu3Y0tER0FUvw ARKupD4vXQcxKsY8 URKdZrUbyA67iIJxGGeb Tf3gbEczgMsyWX9wTWUv ebxgZLPfmJ7oWNIglVRp eAaiNQ9pLBGvfeid d692FuKcBJJ2KVGbmTWy K7UixI5gBaTdGSKyVFLp L3XxnLOgCJhxT498VNgy BwE3GEYjinFxJ9Az YSVvkEivMyB0n4Q5Co7G a1XrwhhsWLM2EYvjBZVo WbR1CfGmPoT3Q1PmRuv3 ICMzpKovND6kL6Jc MNKcforthbihzRA6GYPa KDWrgK42fUGfWJsnUy7h l1E6v720GJGpOQYdoI28 Oe3avShfPMLjiWAZ nR3fyksgj5tbcsjoEyOn TVZdNPk3RTa2EQYtdOjv JoKvNEF1IaT4WZN1pWXk vS8boIltxoyyyP0z Oyc+N28brG0xMEB6OQT7 txqdLVDgwmIlPV07VK50 U4XlZwrtxUIoyBX+PGRp dlYwvYxaBI0gRlYn j1vhx5OyMDeiO8XiVIBf IHfsErh6XVLmTGO3fKE9 aQ2cVNBzZFxhg0E3mUM8 U8BcscUekw3ap8lo CBBlRQofG29wpSOwi0G7 AFOmqEE0YBKhxDskHaTw tC60Hel+OKHbdFamg2Mg Sbjaa5xzj6fbgOq2 IjMwJSIgdmFsaWduPSJ0 i2BfNk04F64rLWwcPRMx ZYAwGWStZRTidMtpir3a kJ9lQf2+PGNvbCB3 oIQ1aM4bOSGgVxI2CGlb C895DoRmfTPfEeeix4po b4mgsOc3ImLeIFEftxEn cQyaVKL1k9CmGf49 Z25wUDweAGNgWLYgCTHu VIYndDkdlk5vfZ2aEu6+ KC9bi7dkej32oV21oRH+ IBDgKYY0vHaqEPsu IBDgjT1tRGwjNiC4TYNi DnOwiD69wYMqUPrkIe8b tLthiZdnVG8pVRJlsusy h588GeDzn4ooJMJc pOEiTQraBJR9R97gn1P9 CJEvHJTcROE2xJS4rJ4g bGlnbjogbGVmdDsgdmVy qDitQKqpEUcxZ473 IHRvcDsnPlBhdGllbnQg VmQxHHh2E2DpTwu4VBCi kKykXX1pbQLmSYelTs5l rEpetWsiHU0oPWHy lofup238BjLxz9qlXNBn vRHyJLbaBRL5Y81hb3H1 AIWrTOSlDXV7rPI8dL3y bGlnbjogbGVmdDsg wcKesUlgYEpkMMieJ122 IHRvcDsnPkJpcnRoIERh fYG3OO77VB76sUGxy9R9 kUH7P6SrRGFzatmt emdgzBT9OQUfSJLnrT82 Xs4isGzhDb3qISPpAIC9 KBMliMBmC3NypH0oPoOl DBSrFUZqI7ZmoDHe KMsmS043QNucKzZ1DCWk deXpL9UkXSTbqTynVuT4 f9Q5Tz5DQ2F6FH65AA92 wPJou0Q4iNZ7F2Pz UKFvbwjwbdrjlFI4RIVk NPGncL11Cd3arZnxZb6l ULCrUGJ9DGVytYMmP8Ga xG1jRkEtFOMbXLCq C8PevRMoSIdcO041VByj AoN0CMSwqoLuP8ZkQLVe aGoyHmJ0u1K2Cz1WOOu4 YI64QL14lWDhp7O5 dOJ2U9OiWQBkpttnvgph kUI4MJUyLFFigD94Ep1v qJieAy7rGWLjXVB9CNDl yVYmV3JhoV0gRbRd UOZwQXHdY3AtcNBpKSel J525MIjwVnQ8VOYkjxYn Q5LaDPUxnWtvWrF6d0C9 Ac2AACMhZZ78HTY7 eIL4OV31NT69A6AgJcgb dGFibGU+PHRhYmxlIHdp ZHRoPScxMDAlJyBzdHls UQ2xOn9xTHOtCJCo rSiffEToNzScn5twOHOx VYdpAZ4ytWenR9HduTP5 DEBtv1l3Ch42A23aF4Dl dXA+YBLoiKO7oTU8 dT0kSmOmKmZ3PMgvW453 RiDefNWnLlctz2znf8xx hSd0XhR7ZNYobjObrCmb GII0e8AwNl39S28z IHdpZHRoPSIxNSUiIHZh jKbksx7lqJ5fIj3+PGNv jIL4hYT6yG1eUxVgVwT5 PQyfD913NdRnbXAq Abitm0tya0fxhTz5QjPg GZRazpAqvUegTPX3w9Ub Aa82K9XomZrxv4HqJmd1 fe29fHStl0A3ePR6 I2MpQEFbwwymhLItqElb KF4gFXKktarzDLUxcQ5s TQIlH3u4LcEnYmV9JMuw E2QardK0GGZkjMLc DEhrHGT6B61fs4N0IJJn MDEnRGI9gTB3vA8gaGnm bjogbGVmdDsgdmVydGlj UTzrANtzT804WIGw fYlcWESkwV4wHGZekZJx zNazZB9tPOKhsseaRzDW EI6ELCtaB6DIAmWpNYbw dGQ+YVClSVZ8nVkf BOqfXGGeaS8gEOJiE9i6 BvPrDkH2FKesO6DeSBKx xrvcZd97bE4eDsEsIdR9 FQheJ7YdchH4IOTi jCOjLOnxSBT4H75zb0K3 RVEgFBElLOB1rXF0fD4x bGlnbjogbGVmdDsgdmVy zTmkURsoFEnfU948 IHRvcDsnPjAxLzMxLzE5 ZVO5B0OwVge9WKScdMee JS9oeBTsPJjkQd7aqAcu pIfeCV7iLZTimfzm GHJxbG5eKKYnaHQwyJpx BO5fUFGjaptzl612WnIu OPK1NVRlxZPnI2WjoQ5k EoAwSRZwTSGeG7Tl cSSdQPrfS352SWycXcP7 DJJgirQmC6ZbVFDpxFjj BfT6e4U4Ed23WwBVLBLu czwvdGQ+PHRkIHN0 xAcgCAnkDMKynN0tFCLm H9j9XeJwJqM8HJfgV2Ld MZTcbldhLa32xH9bEoUd LuY8EJtuZ3EtcgO4 NEGsiEFcUYxaAAO9O23h l4Q5TRRsLSCdHKC2nES6 vS2tyRwgurtbpHOfqLwd dmVydGljYWwtYWxp K530CZOtvBwgOd6fkPR3 C2EmJkr8JYTezZdvZD3n yPIsSKbdOg6aoUijjWpn WA6xSBPommpmEZYq pJ3dQXRrzVBwoEtnVX8c RZLxpaadc680RfCqUQI4 XJPrrQFoB4TtyO6uHkEd PTRqBBXwH4NitQMa XCmuB337OXnaIqE8BRPr buThP6MlBJSmjMzoSsE6 g5R6Zd0NGTbyXC4nuaHi QT2staV1N0HrYejw dHI+CY17KEKiKY78mKRk hEJde4tiqYt5DoCsPOKu KSU7pYjeHDmsx4UkBTZl T88vrZWdz6F0MKAs dDqyaMSuXcYkmBI6pN4y SAlgkdcku7wmacwhVjvr u2trqz16zY30Q04rDHlv ZHRoPSIzMCUiIHZh tRbnnn5odW2iPu8+PGNv fZI7uCI9nA8lOeYlBgQ1 HTryC482BhMjbWKpHyar n3syn2dxaFn3OiZh PHCjrkZboYpzWXD0k3Mz Ly70K10jSArsGIEhUMKr YWUgTHKxzKpxtk7wqG6r Ii8+EA3jd7bdwx94 qD15pQV+OEOxGUP5cXln UWezSHMikU6wDUehViR0 PLLqBaUwnZ85kKLlLLeq Gz9hbQwswVegRE8c IDKjkrvti058UsJwz7xm KVJyfHXnFPkiHDP7R53l b5N0BUCxXVXzNRF3sXC0 lE8pqFwrgqxeaJHg dDsgdmVydGljYWwtYWxp G642WTTutHnpGtIxfRRw N4fkosEZIC2mFkxyzCV+ AFYwDVD3kLcgCAoe WFWstQ0oXRFzC4y5ZyTx UmP8SJjqG5XajtO1OBZn dXMdILWluZUHiT8xggca i2teayljVjJxYPLh YKr2UEr6RHFsfNhyVbKs QLS0MfH9YOM1tLSvfG1z xBahygghaT4cEaq+RklO OjwvdGQ+PHRkIHN0 mOofXWrxPRZdfN1mMBNk M4h8QbLlXyG4QZhpA5Za cdT3PTEsfPJvQVQynQTX zL9eiygkf5lbhflk KrEmTCSdJWf4DSr4RUKz sKlcXpRrKKW9UtC2BXP7 yJUdfZ7udHrqsnqbpE8y Oyc+TVJOOjwvdGQ+ AKUeWYU5oZcgINzwWYEy lB1iMRWtL9u1ZxHfOzT9 ONouX7UldtT2DNXviETv QBEdhDKUgP1jpdwa t5skmxalJlZoUOBiOQo0 YRg9JWPplSwfPbUlMKB2 ZnM8BPR9jSJejJ8thFtg wydgcI1mErs+UGF5 ZCH8XF66UM37N8UuCrua dGFibGU+PHRhYmxlIHdp ZHRoPScxMDAlJyBzdHls YQ8wBt3wHUJnSPNu bGxh (more content not included)... Normal [facility] Consent for Treatmenton 06-20 Consent for Treatment [id number] 3#1.00CD:127 Normal [facility] HIPAA Forms Officeon 022 HIPAA Forms Office [id number] #1.00CD:127 Normal [facility] Legal Correspondence Officeo n 07-15-2022 Legal Correspondence Office [id number] #1.00CD:127 Normal [facility] Office/Clinic Note-Physician on 07-15-2022 Office/Clinic Note-Physician [id number]. [id number] #1.00CD:127 Normal [facility] Patient History Officeon Patient History Office [id number]. [id number] #1.00CD:127 Normal [facility] Radiology Outside Office Tumbler Tender yon 07-15-2022 Radiology Outside Office Copy [id number] #1.00CD:127 Normal [facility] Outside Records Officeon Outside Records Office [id number]. [facility] [id number] #1.00CD:127 Normal [facility] Radiology Outside Office Tumbler Tender yon 07-09-2022 Radiology Outside Office Copy [id number] #1.00CD:127 Normal [facility] Referrals Officeon 2 Referrals Office [id number] #1.00CD:127 Normal [facility] MRI LSPINE WO CONon 05-22-20 22 MRI LSPINE WO CON EXAMINATION: MRI LSPINE WO CON HISTORY: Degeneration of lumbosacral intervertebral disc , lumbar pain, numbness COMPARISON: 02/25/2016 TECHNIQUE: A variety of imaging planes and parameters were utilized for visualization of suspected pathology. FINDINGS: For the purposes of numbering, sagittal T2 image # 8 extends from the T11 vertebral body superiorly to the S3-S4 level inferiorly. PARASPINAL AREA: Normal with no visible mass. BONES: Normal alignment with no acute fracture or spondylolisthesis. Signal abnormality in the T12 vertebral body measuring 1.7 cm likely a hemangioma. Moderate anterior spondylosis CORD/CAUDA EQUINA: Normal caliber, contour, and signal intensity. DISC LEVELS: 12-L1: No significant disc/facet abnormality, spinal stenosis, or foraminal stenosis. L1-L2: Early degenerative disc disease is present without focal protrusion or neural impingement. L2-L3: Moderate disc desiccation. Posterior broad-based disc protrusion. Endplate hypertrophy. No central canal or foraminal stenosis L3-L4: Early degenerative disc disease is present without focal protrusion or neural impingement. L4-L5: Moderate disc desiccation. Mild diffuse disc/osteophyte complex. Severe ligamentum flavum hypertrophy with severe central canal stenosis to 5.4 x 6 mm axial image 27. Mild right foraminal stenosis ( L5-S1: Disc desiccation. Posterior disc bulge. No central or right foraminal stenosis. Mild narrowing of the left neural foramen, sagittal image 4 IMPRESSION: Degenerative changes most significant at L4-L5 where severe central canal stenosis is observed. Surgical consultation recommended Electronically authenticated by: NATACHA RENDON Date: 2022-05-22 19:43 Normal [facility] XR FOREIGN BODY EYEon 2021 XR FOREIGN BODY EYE EXAMINATION: XR FOREIGN BODY EYE HISTORY: Foreign body in eye COMPARISON: No relevant comparison available. FINDINGS: ORBITS: Negative for a metallic foreign body. OTHER: Negative. IMPRESSION: No metallic foreign body in the orbits Electronically authenticated by: NATACHA RENDON Date: 2022-05-22 14:05 Normal [facility] CULTURE BLOODon 05-01-2022 Microscopic examination of blood, culture Culture Observations: Anaerobic bottle only positive Culture Observations: BCID- Staph epidermidis Culture Observations: NO GROWTH AT 5 DAYS IN AEROBIC BOTTLE. Culture Observations: METHICILLIN RESISTANT STAPH EPIDERMIDIS ISOLATED. PLEASE FOLLOW APPROPRIATE ISOLATION PROCEDURES. Culture Observations: FAXED RESULT TO PER YAKOV 04/28 @ 3467 Isolate 1 Staphylococcus epidermidis Growth of ORGANISM 1 Staphylococcus epidermidis ANTIBIOTIC M.I.C RX STATUS Beta-Lactamase Neg NEG F Cefoxitin Screen Pos POS F Benzylpenicillin >=0.5 R F Ciprofloxacin <=0.5 S F Levofloxacin <=0.12 S F Inducible Clindamycin Resistance Neg NEG F Erythromycin >=8 R F Clindamycin >=8 R F Quinupristin/Dalfopr istin <=0.25 S F Linezolid 1 S F Vancomycin 2 S F Tetracycline 2 S F Rifampicin <=0.5 S F Trimethoprim/Sulfame thoxazole <=10 S F Oxacillin >=4 R F Normal [facility] Comment on above: Performed By: #### H STROPN #### [facility] [address] [place] [address] Dr. Troy Hickey BLOOD CULTURE ID PANELon A. baumannii Not detected Normal NOT DETECTED [facility] Comment on above: Performed By: #### B CID2 #### [facility] [address] [place] [address] Dr. Troy Hickey Bacteriodes fragilis Not detected Normal NOT DETECTED [facility] Comment on above: Performed By: #### B CID2 #### [facility] [address] [place] [address] Dr. Troy Hickey BCID CONTROLS PASSED Normal [facility] Comment on above: Performed By: #### B CID2 #### [facility] [address] [place] [address] Dr. Troy Hickey BCIDBTHD BLOOD CULTURE BOTTLE INFORMATION Normal [facility] Comment on above: Performed By: #### B CID2 #### [facility] [address] [place] [address] Dr. Troy Hickey BCIDHD1 ANTIMICROBIAL RESISTANCE GENES Normal [facility] Comment on above: Performed By: #### B CID2 #### [facility] [address] [place] [address] Dr. Troy Hickey BCIDHD2 SEE BELOW [facility] Comment on above: Result Comment: Note : Antimicrobial resitance can occur via multiple mechanisms. A Not Detected result for the [employer] antomicrobial resistance gene assays does not indicate antimicrobial susceptibility. Subculturing is required for species identification and susceptibility testing of isolates. Performed By: #### B CID2 #### [facility] [address] [place] [address] Dr. Troy Hickey BCIDHD3 Positive [facility] Comment on above: Performed By: #### B CID2 #### [facility] [address] [place] [address] Dr. Troy Hickey BCIDHD4 Negative Normal [facility] Comment on above: Performed By: #### B CID2 #### [facility] [address] [place] [address] Dr. Troy Hickey BCIDHD5 YEAST Normal [facility] Comment on above: Performed By: #### B CID2 #### [facility] [address] [place] [address] Dr. Troy Hickey Bottle Set: Set 2 Normal [facility] Comment on above: Performed By: #### B CID2 #### [facility] [address] [place] [address] Dr. Troy Hickey Bottle: Anaerobic Normal [facility] Comment on above: Performed By: #### B CID2 #### [facility] [address] [place] [address] Dr. Troy Hickey C. neoformans/gattii Not detected Normal NOT DETECTED [facility] Comment on above: Performed By: #### B CID2 #### [facility] [address] [place] [address] Dr. Troy Hickey Eunice albicans Not detected Normal NOT DETECTED [facility] Comment on above: Performed By: #### B CID2 #### [facility] [address] [place] [address] Dr. Troy Hickey Eunice auris Not detected Normal NOT DETECTED [facility] Comment on above: Performed By: #### B CID2 #### [facility] [address] [place] [address] Dr. Troy Hickey Eunice glabrata Not detected Normal NOT DETECTED [facility] Comment on above: Performed By: #### B CID2 #### [facility] [address] [place] [address] Dr. Troy Hickey Eunice Krusei Not detected Normal NOT DETECTED [facility] Comment on above: Performed By: #### B CID2 #### [facility] [address] [place] [address] Dr. Troy Hickey Eunice Parapsilosis Not detected Normal NOT DETECTED [facility] Comment on above: Performed By: #### B CID2 #### [facility] [address] [place] [address] Dr. Troy Hickey Eunice Tropicalis Not detected Normal NOT DETECTED [facility] Comment on above: Performed By: #### B CID2 #### [facility] [address] [place] [address] Dr. Troy Hickey CTX-M Resistant Gene Not Applicable Normal NOT DETECTE D [facility] Comment on above: Performed By: #### B CID2 #### [facility] [address] [place] [address] Dr. Troy Hickey E. Cloacae complex Not detected Normal NOT DETECTED [facility] Comment on above: Performed By: #### B CID2 #### [facility] [address] [place] [address] Dr. Troy Hickey E. faecalis Not detected Normal NOT DETECTED [facility] Comment on above: Performed By: #### B CID2 #### [facility] [address] [place] [address] Dr. Troy Hickey E. faecium Not detected Normal NOT DETECTED [facility] Comment on above: Performed By: #### B CID2 #### [facility] [address] [place] [address] Dr. Troy Hickey Enterobacteriaceae Not detected Normal NOT DETECTED [facility] Comment on above: Performed By: #### B CID2 #### [facility] [address] [place] [address] Dr. Troy Hickey Escherichia coli Not detected Normal NOT DETECTED [facility] Comment on above: Performed By: #### B CID2 #### [facility] [address] [place] [address] Dr. Troy Hickey H. influenzae Not detected Normal NOT DETECTED [facility] Comment on above: Performed By: #### B CID2 #### [facility] [address] [place] [address] Dr. Troy Hickey IMP Resistant Gene Not Applicable Normal NOT DETECTED [facility] Comment on above: Performed By: #### B CID2 #### [facility] [address] [place] [address] Dr. Troy Hickey K. oxytoca Not detected Normal NOT DETECTED [facility] Comment on above: Performed By: #### B CID2 #### [facility] [address] [place] [address] Dr. Troy Hickey K. pneumoniae Not detected Normal NOT DETECTED [facility] Comment on above: Performed By: #### B CID2 #### [facility] [address] [place] [address] Dr. Troy Hickey Klebsiella aerogenes Not detected Normal NOT DETECTED [facility] Comment on above: Performed By: #### B CID2 #### [facility] [address] [place] [address] Dr. Troy Hickey KPC Resistant Gene Not detected Normal NOT DETECTED [facility] Comment on above: Performed By: #### B CID2 #### [facility] [address] [place] [address] Dr. Troy Hickey List. monocytogenes Not detected Normal NOT DETECTED [facility] Comment on above: Performed By: #### B CID2 #### [facility] [address] [place] [address] Dr. Troy Hickey Mcr-1 Resistant Gene Not Applicable Normal NOT DETECTE D [facility] Comment on above: Performed By: #### B CID2 #### [facility] [address] [place] [address] Dr. Troy Hickey mecA/C Detected Abnormal NOT DETECTED [facility] Comment on above: Performed By: #### B CID2 #### [facility] [address] [place] [address] Dr. Troy Hickey mecA/C MREJ Not Applicable Normal NOT DETECTED [facility] Comment on above: Performed By: #### B CID2 #### [facility] [address] [place] [address] Dr. Troy Hickey N. meningitidis Not detected Normal NOT DETECTED [facility] Comment on above: Performed By: #### B CID2 #### [facility] [address] [place] [address] Dr. Troy Hickey NDM Resistant Gene Not Applicable Normal NOT DETECTED [facility] Comment on above: Performed By: #### B CID2 #### [facility] [address] [place] [address] Dr. Troy Hickey Oxa-48-like Not Applicable Normal NOT DETECTED [facility] Comment on above: Performed By: #### B CID2 #### [facility] [address] [place] [address] Dr. Troy Hickey Proteus Not detected Normal NOT DETECTED [facility] Comment on above: Performed By: #### B CID2 #### [facility] [address] [place] [address] Dr. Troy Hickey Pseud. aeruginosa Not detected Normal NOT DETECTED [facility] Comment on above: Performed By: #### B CID2 #### [facility] [address] [place] [address] Dr. Troy Hickey S. maltophilia Not detected Normal NOT DETECTED [facility] Comment on above: Performed By: #### B CID2 #### [facility] [address] [place] [address] Dr. Troy Hickey Salmonella Not detected Normal NOT DETECTED [facility] Comment on above: Performed By: #### B CID2 #### [facility] [address] [place] [address] Dr. Troy Hickey Seratia marcescens Not detected Normal NOT DETECTED [facility] Comment on above: Performed By: #### B CID2 #### [facility] [address] [place] [address] Dr. Troy Hickey Site: right arm Normal [facility] Comment on above: Performed By: #### B CID2 #### [facility] [address] [place] [address] Dr. Troy Hickey Staph. aureus Not detected Normal NOT DETECTED [facility] Comment on above: Performed By: #### B CID2 #### [facility] [address] [place] [address] Dr. Troy Hickey Staph. epidermidis Detected Abnormal NOT DETECTED [facility] Comment on above: Performed By: #### B CID2 #### [facility] [address] [place] [address] Dr. Troy Hickey Staph. lugdunensis Not detected Normal NOT DETECTED [facility] Comment on above: Performed By: #### B CID2 #### [facility] [address] [place] [address] Dr. Troy Hickey Staphylococcus Detected Abnormal NOT DETECTED [facility] Comment on above: Performed By: #### B CID2 #### [facility] [address] [place] [address] Dr. Troy Hickey Strep. agalactiae Not detected Normal NOT DETECTED [facility] Comment on above: Performed By: #### B CID2 #### [facility] [address] [place] [address] Dr. Troy Hickey Strep. pneumoniae Not detected Normal NOT DETECTED [facility] Comment on above: Performed By: #### B CID2 #### [facility] [address] [place] [address] Dr. Troy Hickey Strep. pyogenes Not detected Normal NOT DETECTED [facility] Comment on above: Performed By: #### B CID2 #### [facility] [address] [place] [address] Dr. Troy Hickey Streptococcus Not detected Normal NOT DETECTED [facility] Comment on above: Performed By: #### B CID2 #### [facility] [address] [place] [address] Dr. Troy Bruner/Blair Resist. Gene Not detected Normal NOT DETECTED [facility] Comment on above: Performed By: #### B CID2 #### [facility] [address] [place] [address] Dr. Troy Hickey VIM Resistant Gene Not Applicable Normal NOT DETECTED [facility] Comment on above: Performed By: #### B CID2 #### [facility] [address] [place] [address] Dr. Troy Hickey BNPon 04-25-2022 Natriuretic peptide B (Bld) [Mass/Vol] 239.0 pg/mL Normal <=900.0 [facility] Comment on above: Performed By: #### B MULTI CRAFT MAINTENANCE TECHNICIAN, HSTROPN, CMP #### [facility] [address] [place] [address] Dr. Troy Hickey CBC AUTO DIFFon 04-25-2022 BASO # 0.1 103/ul Normal 0.0-0.1 [facility] Comment on above: Performed By: #### H STROPN #### [facility] [address] [place] [address] Dr. Troy Hickey Basophils/100 WBC (Bld) 0.3 % Normal 0.2-2.0 [facility] Comment on above: Performed By: #### H STROPN #### [facility] [address] [place] [address] Dr. Troy Hickey EO # 0.0 103/ul Normal 0.0-0.7 [facility] Comment on above: Performed By: #### H STROPN #### [facility] [address] [place] [address] Dr. Troy Hickey Eosinophils/100 WBC (Bld) 0.1 % Critically low 0.9-7.0 [facility] Comment on above: Performed By: #### H STROPN #### [facility] [address] [place] [address] Dr. Troy Hickey Erythrocyte distribution width (RBC) [Ratio] 13.5 % Normal 11.0-15.0 [facility] Comment on above: Performed By: #### H STROPN #### [facility] [address] [place] [address] Dr. Troy Hickey Hematocrit (Bld) [Volume fraction] 33.0 % Critically low 42.0-54.0 [facility] Comment on above: Performed By: #### H STROPN #### [facility] [address] [place] [address] Dr. Troy Hickey Hemoglobin (Bld) [Mass/Vol] 10.4 g/dL Critically low 14.0-18.0 [facility] Comment on above: Performed By: #### H STROPN #### [facility] [address] [place] [address] Dr. Troy Hickey IG # 0.08 10e3/ul Critically high 0.00-0.[address] [facility] Comment on above: Performed By: #### H STROPN #### [facility] [address] [place] [address] Dr. Troy Hickey IG % 0.5 % Normal 0.0-0.5 [facility] Comment on above: Performed By: #### H STROPN #### [facility] [address] [place] [address] Dr. Troy Hickey LYMPH # 0.8 103/ul Critically low 1.2-3.8 [facility] Comment on above: Performed By: #### H STROPN #### [facility] [address] [place] [address] Dr. Troy Hickey Lymphocytes/100 WBC (Bld) 4.3 % Critically low 20.5-60.0 [facility] Comment on above: Performed By: #### H STROPN #### [facility] [address] [place] [address] Dr. Troy Hickey MANUAL DIFF REQ NO Normal [facility] Comment on above: Performed By: #### H STROPN #### [facility] [address] [place] [address] Dr. Troy Hickey MCH (RBC) [Entitic mass] 25.3 pg Critically low 25.9-34.0 [facility] Comment on above: Performed By: #### H STROPN #### [facility] [address] [place] [address] Dr. Troy Hickey MCHC (RBC) [Mass/Vol] 31.5 g/dL Normal 29.9-35.2 [facility] Comment on above: Performed By: #### H STROPN #### [facility] [address] [place] [address] Dr. Troy Hickey MCV (RBC) [Entitic vol] 80.3 fL Normal 80.0-94.0 [facility] Comment on above: Performed By: #### H STROPN #### [facility] [address] [place] [address] Dr. Troy Hickey MONO # 0.6 103/ul Normal 0.3-0.8 [facility] Comment on above: Performed By: #### H STROPN #### [facility] [address] [place] [address] Dr. Troy Hickey Monocytes/100 WBC (Bld) 3.4 % Normal 1.7-12.0 [facility] Comment on above: Performed By: #### H STROPN #### [facility] [address] [place] [address] Dr. Troy Hickey NEUT # 16.0 103/ul Critically high 1.4-6.5 [facility] Comment on above: Performed By: #### H STROPN #### [facility] [address] [place] [address] Dr. Troy Hickey Neutrophils/100 WBC (Bld) 91.4 % Critically high 43.0-75.0 [facility] Comment on above: Performed By: #### H STROPN #### [facility] [address] [place] [address] Dr. Troy Hickey Platelet mean volume (Bld) [Entitic vol] 8.9 fL Critically low 9.5-13.5 [facility] Comment on above: Performed By: #### H STROPN #### [facility] [address] [address] [address] Troy Hickey PLT 269 103/ul Normal 150-450 [facility] Comment on above: Performed By: #### H STROPN #### [facility] [address] [id number] [address] Troy Hickey RBC 4.11 106/ul Critically low 4.70-6.10 [facility] Comment on above: Performed By: #### H STROPN #### [facility] [address] [address] [address] Troy Hickey WBC 17.5 103/ul Critically high 4.0-11.0 [facility] Comment on above: Performed By: #### H STROPN #### [facility] [address] [place] [address] Dr. Troy Hickey CULTURE BLOODon 04-25-2022 Microscopic examination of blood, culture Culture Observations: NO GROWTH AT 5 DAYS. Normal [facility] Comment on above: Performed By: #### H STROPN #### [facility] [address] [place] [address] Dr. Tryo Hickey [facility]on SARS-CoV-2 (COVID-19) RNA ERNIE+probe Ql (Unsp spec) Not detected Normal NOT DETECTED [facility] Comment on above: Result Comment: When diagnostic testing is negative, the possibility of a false negative should be considered in the context of a patient's recent exposures and the presence of clinical signs and symptoms consistent with SARS-CoV-2. This test is not yet approved or cleared by the [place] FDA. When there are no FDA-approved or cleared tests available, and other criteria are met, FDA can make tests available under an emergency access mechanism called an Emergency Use Authorization (EUA). The EUA for this test is supported by the [place] of Health and Human Service's declaration that circumstances exist to justify the emergency use of in vitro diagnostics for the detection and/or diagnosis of the virus that causes COVID-19. This EUA will remain in effect for the duration of the COVID-19 declaration justifying emergency of IVDs, unless it is terminated or revoked by the FDA (after which the test may no longer be used). Performed By: #### C VDTB #### [facility] [address] [place] [address] Dr. Troy Hickey INFLUENZA A AND B AGon 04-25 INFLUENZA A AG Negative Normal NEGATIVE SEE COMMENT [facility] Comment on above: Performed By: #### I NFLUAB #### [facility] [address] [place] [address] Dr. Troy Hickey INFLUENZA B AG Negative Normal NEGATIVE SEE COMMENT [facility] Comment on above: Performed By: #### I NFLUAB #### [facility] [address] [place] [address] Dr. Troy Hickey INTERNAL CONTROLS Within Normal Limits Normal Wi thin Normal Limits [facility] Comment on above: Performed By: #### I NFLUAB #### [facility] [address] [place] [address] Dr. Troy Hickey LACTATE/LACTIC ACIDon 2021 Lactate [Moles/Vol] 1.5 mmol/L Normal 0.4-1.9 [place] Comment on above: Performed By: #### L ACT #### [facility] [address] [place] [address] Dr. Troy Hickey PROF 14(COMP METB)on 022 Albumin [Mass/Vol] 3.6 g/dL Normal 3.4-5.0 [facility] Comment on above: Performed By: #### B MULTI CRAFT MAINTENANCE TECHNICIAN, HSTROPN, CMP #### [facility] [address] [place] [address] Dr. Troy Hickey Albumin/Globulin [Mass ratio] 0.8 {ratio} Normal [facility] Comment on above: Performed By: #### B MULTI CRAFT MAINTENANCE TECHNICIAN, HSTROPN, CMP #### [facility] [address] [place] [address] Dr. Troy Hickey ALP [Catalytic activity/Vol] 144 U/L Critically high 46-116 [facility] Comment on above: Performed By: #### B MULTI CRAFT MAINTENANCE TECHNICIAN, HSTROPN, CMP #### [facility] [address] [place] [address] Dr. Troy Hickey ALT [Catalytic activity/Vol] 17 U/L Normal 16-63 [facility] Comment on above: Performed By: #### B MULTI CRAFT MAINTENANCE TECHNICIAN, HSTROPN, CMP #### [facility] [address] [place] [address] Dr. Troy Hickey Anion gap [Moles/Vol] 9.0 mmol/L Normal [facility] Comment on above: Performed By: #### B MULTI CRAFT MAINTENANCE TECHNICIAN, HSTROPN, CMP #### [facility] [address] [address] [address] Troy Hickey AST [Catalytic activity/Vol] 15 U/L Normal 15-37 [facility] Comment on above: Performed By: #### B MULTI CRAFT MAINTENANCE TECHNICIAN, HSTROPN, CMP #### [facility] [address] [address] [address] Troy Hickey Bilirubin [Mass/Vol] 0.7 mg/dL Normal 0.2-1.0 [facility] Comment on above: Performed By: #### B MULTI CRAFT MAINTENANCE TECHNICIAN, HSTROPN, CMP #### [facility] [address] [address] [address] Troy Hickey Calcium [Mass/Vol] 9.0 mg/dL Normal 8.5-10.1 [facility] Comment on above: Performed By: #### B MULTI CRAFT MAINTENANCE TECHNICIAN, HSTROPN, CMP #### [facility] [address] [address] [address] Troy Hickey Chloride [Moles/Vol] 101 mmol/L Normal 98-107 [facility] Comment on above: Performed By: #### B MULTI CRAFT MAINTENANCE TECHNICIAN, HSTROPN, CMP #### [facility] [address] [address] [address] Troy Hickey CO2 [Moles/Vol] 29.0 mmol/L Normal 21.0-32.0 [facility] Comment on above: Performed By: #### B MULTI CRAFT MAINTENANCE TECHNICIAN, HSTROPN, CMP #### [facility] [address] [address] [address] Troy Hickey Creatinine [Mass/Vol] 0.94 mg/dL Normal 0.70-1.30 [facility] Comment on above: Performed By: #### B MULTI CRAFT MAINTENANCE TECHNICIAN, HSTROPN, CMP #### [facility] [address] [place] [address] Dr. Troy Hickey EGFR-AF TURKMEN >60 Normal >=60 [facility] Comment on above: Performed By: #### B MULTI CRAFT MAINTENANCE TECHNICIAN, HSTROPN, CMP #### [facility] [address] [place] [address] Dr. Troy Hickey EGFR-NON AF TURKMEN >60 Normal >=60 [facility] Comment on above: Performed By: #### B MULTI CRAFT MAINTENANCE TECHNICIAN, HSTROPN, CMP #### [facility] [address] [place] [address] Dr. Troy Hickey Globulin (S) [Mass/Vol] 4.3 g/dL Normal [facility] Comment on above: Performed By: #### B MULTI CRAFT MAINTENANCE TECHNICIAN, HSTROPN, CMP #### [facility] [address] [place] [address] Dr. Troy Hickey Glucose [Mass/Vol] 187 mg/dL Critically high 74-106 T [facility] Comment on above: Performed By: #### B MULTI CRAFT MAINTENANCE TECHNICIAN, HSTROPN, CMP #### [facility] [address] [place] [address] Dr. Troy Hickey Potassium [Moles/Vol] 4.0 mmol/L Normal 3.5-5.1 [facility] Comment on above: Performed By: #### B MULTI CRAFT MAINTENANCE TECHNICIAN, HSTROPN, CMP #### [facility] [address] [place] [address] Dr. Troy Hickey Protein [Mass/Vol] 7.9 g/dL Normal 6.4-8.2 [facility] Comment on above: Performed By: #### B MULTI CRAFT MAINTENANCE TECHNICIAN, HSTROPN, CMP #### [facility] [address] [place] [address] Dr. Troy Hickey Sodium [Moles/Vol] 135 mmol/L Critically low 136-145 Th [facility] Comment on above: Performed By: #### B MULTI CRAFT MAINTENANCE TECHNICIAN, HSTROPN, CMP #### [facility] [address] [address] [address] Troy Hickey Urea nitrogen [Mass/Vol] 15.0 mg/dL Normal 7.0-18.0 [facility] Comment on above: Performed By: #### B MULTI CRAFT MAINTENANCE TECHNICIAN, HSTROPN, CMP #### [facility] [address] [place], [place] [address] Dr. Tory Hickey Urea nitrogen/Creatinine [Mass ratio] 16.0 mg/mg Normal [facility] Comment on above: Performed By: #### B MULTI CRAFT MAINTENANCE TECHNICIAN, HSTROPN, CMP #### [facility] [address] [place], [place] [address] Dr. Troy Hickey TROPONIN, HIGH SENSITIVITYon 04-25-2022 HSTROP 11.1 pg/mL Normal 4.0-76.1 [facility] Comment on above: Result Comment: CUT- OFF POINTS HAVE BEEN ESTABLISHED BASED ON THE FOURTH UNIVERSAL DEFINITIONS OF MYOCARDIAL INFARCTION. THE UPPER REFERENCE LIMIT (URL) OF TROPONIN, DEFINED THE 99TH PERCENTILE OF cTnI DISTRIBUTION IN A REFERENCE POPULATION, HAS BEEN CONFIRMED THE DECISION THRESHOLD FOR GA DIAGNOSIS. Performed By: #### B MULTI CRAFT MAINTENANCE TECHNICIAN, HSTROPN, CMP #### [facility] [address] [address] [address] Troy Hickey XR CHEST 1 Von 04-25-2022 XR CHEST 1 V EXAM: Portable chest REASON FOR EXAM: Cough and shortness of breath for 2 weeks. TECHNIQUE: A portable frontal view of the chest was obtained. COMPARISON: 04/23/2022. FINDINGS: The lungs are well-inflated and grossly clear. The heart and mediastinum are normal. There is no mass or pathologic adenopathy. Osseous structures are normal. IMPRESSION: Grossly negative for an acute cardiopulmonary process. Electronically authenticated by: SANDER MOCTEZUMA Date: 2022-04-25 15:38 Normal [facility] XR CHEST 2 Von 04-23-2022 XR CHEST 2 V EXAMINATION: XR CHEST 2 V HISTORY: Cough , shortness of breath COMPARISON: XR RIBS with PA chest 03/21/2020 FINDINGS: LUNGS: No significant pulmonary parenchymal abnormalities. VASCULATURE: No increased pulmonary vasculature. PLEURA: No pneumothorax, effusion, or pleural thickening. CARDIAC: No cardiomegaly or cardiac silhouette abnormality. MEDIASTINUM: No visible mass or adenopathy. BONES: No fracture or visible bone lesion. OTHER: Negative. IMPRESSION: 1. Hyperexpanded lungs. 2. No acute cardiopulmonary process. Electronically authenticated by: JEAN-PAUL SALAS Date: 2022-04-23 11:36 Normal [facility] XR LSPINE MIN 4 VIEWSon 03-20 XR LSPINE MIN 4 VIEWS EXAMINATION: XR LSPINE MIN 4 VIEWS HISTORY: Pain of left hip joint COMPARISON: No relevant comparison available. FINDINGS: BONES: Moderate degenerative facet arthropathy L4-5, L5-S1. No fracture or spondylolisthesis. DISC SPACES: Mild narrowing L5-S1. Prominent anterior endplate osteophytes L3-4 without significant disc space narrowing. PARASPINOUS: Negative. No paraspinous abnormality is seen. OTHER: Negative. IMPRESSION: 1. Multilevel mild degenerative disc disease. 2. Moderate degenerative facet arthropathy of lower lumbar spine. Electronically authenticated by: JEAN-PAUL SALAS Date: 2022-04-02 15:11 Normal [facility] Tobacco Screening.on Tobacco use status CPHS b) No [facility] Work Phone: PROF 14(COMP METB)on Albumin [Mass/Vol] 3.5 g/dL Normal 3.4-5.0 [facility] Comment on above: Performed By: #### C MP #### [facility] [address] [address] [address] Troy Hickey Albumin/Globulin [Mass ratio] 0.9 {ratio} Normal [facility] Comment on above: Performed By: #### C MP #### [facility] [address] [address] [address] Troy Hickey ALP [Catalytic activity/Vol] 104 U/L Normal 46-116 [facility] Comment on above: Performed By: #### C MP #### [facility] [address] [address] [address] Troy Hickey ALT [Catalytic activity/Vol] 19 U/L Normal 16-63 [facility] Comment on above: Performed By: #### C MP #### [facility] [address] [address] [address] Troy Hickey Anion gap [Moles/Vol] 11.7 mmol/L Normal [facility] Comment on above: Performed By: #### C MP #### [facility] [address] [address] [address] Troy Hickey AST [Catalytic activity/Vol] 9 U/L Critically low 15-37 [facility] Comment on above: Performed By: #### C MP #### [facility] [address] [address] [address] Troy Hickey Bilirubin [Mass/Vol] 0.4 mg/dL Normal 0.2-1.0 [facility] Comment on above: Performed By: #### C MP #### [facility] [address] [address] [address] Troy Hickey Calcium [Mass/Vol] 8.7 mg/dL Normal 8.5-10.1 [facility] Comment on above: Performed By: #### C MP #### [facility] [address] [place] [address] Dr. Troy Hickey Chloride [Moles/Vol] 104 mmol/L Normal 98-107 [facility] Comment on above: Performed By: #### C MP #### [facility] [address] [address] [address] Troy Hickey CO2 [Moles/Vol] 28.9 mmol/L Normal 21.0-32.0 [facility] Comment on above: Performed By: #### C MP #### [facility] [address] [address] [address] Troy Hickey Creatinine [Mass/Vol] 1.02 mg/dL Normal 0.70-1.30 [facility] Comment on above: Performed By: #### C MP #### [facility] [address] [place] [address] Dr. Troy Hickey EGFR-AF TURKMEN >60 Normal >=60 [facility] Comment on above: Performed By: #### C MP #### [facility] [address] [address] [address] Troy Hickey EGFR-NON AF TURKMEN >60 Normal >=60 [facility] Comment on above: Performed By: #### C MP #### [facility] [address] [address] [address] Troy Hickey Globulin (S) [Mass/Vol] 3.8 g/dL Normal [facility] Comment on above: Performed By: #### C MP #### [facility] [address] [address] [address] Troy Hickey Glucose [Mass/Vol] 121 mg/dL Critically high 74-106 [facility] Comment on above: Performed By: #### C MP #### [facility] [address] [address] [address] Troy Hickey Potassium [Moles/Vol] 4.6 mmol/L Normal 3.5-5.1 [facility] Comment on above: Performed By: #### C MP #### [facility] [address] [address] [address] Tory Hickey Protein [Mass/Vol] 7.3 g/dL Normal 6.4-8.2 [facility] Comment on above: Performed By: #### C MP #### [facility] [address] [address] [address] Troy Hickey Sodium [Moles/Vol] 140 mmol/L Normal 136-145 [facility] Comment on above: Performed By: #### C MP #### [facility] [address] [address] [address] Troy Hickey Urea nitrogen [Mass/Vol] 45.0 mg/dL Critically high 7.0-18.0 [facility] Comment on above: Performed By: #### C MP #### [facility] [address] [address] [address] Troy Hickey Urea nitrogen/Creatinine [Mass ratio] 44.1 mg/mg Normal [facility] Comment on above: Performed By: #### C MP #### [facility] [id number] Troy Hickey Tobacco Screening.on 022 Adult depression screening assessment [facility] 250 DO Work Phone: Fall risk assessment b) One or more fall s in the last year [facility] 250 DO Work Phone: Tobacco use status CPHS b) No [facility] 250 DO Work Phone: Complete Blood Count Auto Di ffon 11-26-2021 Basophils (Bld) [#/Vol] 0.1 10*3/uL Normal 0.0-0.2 [facility] Comment on above: Result Comment: PERF ORMED BY: [place] [address] PATHOLOGIST EIGHT ARM OPERATOR KAREN CORONADO M.D. Performed By: #### P TT, CBC, PT #### [address] Basophils/100 WBC (Bld) 1.1 % Normal . [facility] Comment on above: Performed By: #### P TT, CBC, PT #### [facility] [address] [place] [address] Eosinophils (Bld) [#/Vol] 0.2 10*3/uL Normal 0.0-0.45 [facility] Comment on above: Performed By: #### P TT, CBC, PT #### [address] Eosinophils/100 WBC (Bld) 1.9 % Normal . [facility] Comment on above: Performed By: #### P TT, CBC, PT #### [facility] [address] [place] [address] Erythrocyte distribution width (RBC) [Ratio] 14.7 % Normal 12.0-14.8 [facility] Comment on above: Performed By: #### P TT, CBC, PT #### [address] Hematocrit (Bld) [Volume fraction] 36.6 % Low 38.8-50.0 [facility] Comment on above: Performed By: #### P TT, CBC, PT #### [facility] [address] Hemoglobin (Bld) [Mass/Vol] 12.4 g/dL Low 13.0-17.0 [facility] Comment on above: Performed By: #### P TT, CBC, PT #### [facility] [address] Lymphocytes (Bld) [#/Vol] 1.7 10*3/uL Normal 1.00-4.8 [facility] Comment on above: Performed By: #### P TT, CBC, PT #### [facility] [address] Lymphocytes/100 WBC (Bld) 13.9 % Normal . [facility] Comment on above: Performed By: #### P TT, CBC, PT #### [address] MCH (RBC) [Entitic mass] 27.1 pg Low 27.5-35.2 [facility] Comment on above: Performed By: #### P TT, CBC, PT #### [place] [address] [place] MCV (RBC) [Entitic vol] 80.3 fL Low 83.5-101 [facility] Comment on above: Performed By: #### P TT, CBC, PT #### [address] Mean Corpuscular HGB Conc 33.7 g/dL Normal 32.5-35.6 [facility] Comment on above: Performed By: #### P TT, CBC, PT #### [facility] [address] [place] [address] [place] Monocytes (Bld) [#/Vol] 0.7 10*3/uL Normal 0.0-0.8 [facility] Comment on above: Performed By: #### P TT, CBC, PT #### [facility] [address] [place] [address] [place] Monocytes/100 WBC (Bld) 5.6 % Normal . [facility] Comment on above: Performed By: #### P TT, CBC, PT #### [facility] [address] Neutrophils (Bld) [#/Vol] 9.2 10*3/uL High 1.8-7.7 [facility] Comment on above: Performed By: #### P TT, CBC, PT #### [facility] [address] Neutrophils/100 WBC (Bld) 77.5 % Normal . [facility] Comment on above: Performed By: #### P TT, CBC, PT #### [facility] [address] Nucleated RBC/100 WBC (Bld) [Ratio] 0.0 % Normal 0-0.5 [facility] Comment on above: Performed By: #### P TT, CBC, PT #### [address] Platelet mean volume (Bld) [Entitic vol] 6.9 fL Normal 6.6-10.1 [facility] Comment on above: Performed By: #### P TT, CBC, PT #### [address] Platelets (Bld) [#/Vol] 272 10*3/uL Normal 150-450 [facility] Comment on above: Performed By: #### P TT, CBC, PT #### [address] RBC (Bld) [#/Vol] 4.56 10*6/uL Normal 3.90-5.60 [facility] Comment on above: Performed By: #### P TT, CBC, PT #### [place] [address] [place] WBC (Bld) [#/Vol] 11.9 10*3/uL High 4.5-11.0 [facility] Comment on above: Performed By: #### P TT, CBC, PT #### [address] Comprehensive Metabolic Pane yvette 11-26-2021 Albumin [Mass/Vol] 3.5 g/dL Normal 3.2-5.5 [facility] Comment on above: Performed By: #### P TT, CBC, PT #### [address] Albumin/Globulin [Mass ratio] 0.9 {ratio} Normal [facility] Comment on above: Performed By: #### P TT, CBC, PT #### [facility] [address] [place] [address] ALP [Catalytic activity/Vol] 74 U/L Normal 32-92 [facility] Comment on above: Performed By: #### P TT, CBC, PT #### [address] ALT [Catalytic activity/Vol] 21 U/L Normal 10-60 [facility] Comment on above: Performed By: #### P TT, CBC, PT #### [address] AST [Catalytic activity/Vol] 27 U/L Normal 10-42 [facility] Comment on above: Performed By: #### P TT, CBC, PT #### [facility] [address] [place] [address] Bilirubin [Mass/Vol] 0.8 mg/dL Normal 0.3-1.2 [facility] Comment on above: Performed By: #### P TT, CBC, PT #### [facility] [address] [place] [address] Calcium [Mass/Vol] 8.9 mg/dL Normal 8.2-10.2 [facility] Comment on above: Performed By: #### P TT, CBC, PT #### [facility] [address] [place] [address] [place] Chloride [Moles/Vol] 99 mmol/L Normal 95-114 [facility] Comment on above: Performed By: #### P TT, CBC, PT #### [facility] [address] [place] [address] [place] CO2 [Moles/Vol] 24.4 mmol/L Normal 22.0-30.0 [facility] Comment on above: Performed By: #### P TT, CBC, PT #### [facility] [address] Creatinine [Mass/Vol] 0.75 mg/dL Normal 0.64-1.27 [facility] Comment on above: Performed By: #### P TT, CBC, PT #### [facility] [address] [place] [address] Creatinine Clr Calc Pharmacy 123.92 [facility] Comment on above: Result Comment: PERF ORMED BY: [place] [address] PATHOLOGIST EIGHT ARM OPERATOR KAREN CORONADO M.D. Performed By: #### P TT, CBC, PT #### [address] Estimated GFR ( Sunitha > 60 [facility] Comment on above: Result Comment: GFR estimated reference range: According to KDOQI guidelines, <60 ml/min/1.73m2 is sufficient to diagnose a patient with chronic kidney disease. Performed By: #### P TT, CBC, PT #### [address] Estimated GFR (Non- Am > 60 [facility] Comment on above: Performed By: #### P TT, CBC, PT #### [address] Globulin (S) [Mass/Vol] 3.7 g/dL [facility] Comment on above: Performed By: #### P TT, CBC, PT #### [facility] [address] [place] [address] [place] Glucose [Mass/Vol] 122 mg/dL High 70-100 [facility] Comment on above: Result Comment: [place] om Glucose Reference Range is dependent on time and content of last meal. Glucose of more than 200 mg/dL in a nonstressed, ambulatory subject supports the diagnosis of Diabetes Mellitus. ADA recommended reference range Performed By: #### P TT, CBC, PT #### [facility] [address] Potassium [Moles/Vol] 4.0 mmol/L Normal 3.5-5.1 [facility] Comment on above: Performed By: #### P TT, CBC, PT #### [facility] [address] [id number] [facility] Protein [Mass/Vol] 7.2 g/dL Normal 6.1-7.9 [facility] Comment on above: Performed By: #### P TT, CBC, PT #### [facility] [address] Sodium [Moles/Vol] 133 mmol/L Low 136-146 [facility] Comment on above: Performed By: #### P TT, CBC, PT #### [facility] [address] Urea nitrogen [Mass/Vol] 8 mg/dL Low 9-23 [facility] Comment on above: Performed By: #### P TT, CBC, PT #### [facility] [address] ECG 12 lead ECGon 11-26-2021 ECG 12 lead ECG [facility] [place] [address] Electrocardiograph Report Signed Patient: Barry Galdamez MR#: [id number] 41 : 1955 Acct:[id number] Age/Sex: 66 / M ADM Date: 11/23/21 Loc: Room: [address] [place] [address] Type: DIS IN Attending Dr: Merline Elias MD Ordering Provider: Elieser Landers MD Date of Service: 11/26/2105/10/500 ECG/ECG 12 lead ECG: Post Angioplasty Procedure in AM Copies to: Test Reason : Blood Pressure : / mmHG Vent. Rate : 073 BPM Atrial Rate : 073 BPM P-R Int : 162 ms QRS Dur : 152 ms QT Int : 426 ms P-R-T Axes : 046 -14 024 degrees QTc Int : 469 ms Normal sinus rhythm Right bundle branch block T wave abnormality, consider lateral ischemia Abnormal ECG When compared with ECG of 25-NOV-2021 15:13, No significant change was found Confirmed by HÉCTOR SALDIVAR DO ([id number]) on 11/26/2021 1:04:36 PM Referred By: Electronically Signed By:HÉCTOR SALDIVAR DO Transcribed By: MUS Signed By Héctor Saldivar DO 11/26 1304 Normal [facility] Troponin I High Sensitivityo n 11-26-2021 Troponin I High Sensitivity 1239 pg/mL Off scale high 0-20 [facility] Comment on above: Result Comment: Resu lts called at 0713 on 11/26/21 PERFORMED BY: [place] [address] PATHOLOGIST EIGHT ARM OPERATOR KAREN CORONADO M.D. Performed By: #### P TT, CBC, PT #### [facility] [address] Basic Metabolic Panelon 05 Calcium [Mass/Vol] 8.7 mg/dL Normal 8.2-10.2 [facility] Comment on above: Performed By: #### P TT, CBC, PT #### [facility] [address] [place] [address] [place] Chloride [Moles/Vol] 102 mmol/L Normal 95-114 [facility] Comment on above: Performed By: #### P TT, CBC, PT #### [facility] [address] [place] [address] [place] CO2 [Moles/Vol] 27.7 mmol/L Normal 22.0-30.0 [facility] Comment on above: Performed By: #### P TT, CBC, PT #### [facility] [address] [place] [address] [place] Creatinine [Mass/Vol] 0.74 mg/dL Normal 0.64-1.27 [facility] Comment on above: Performed By: #### P TT, CBC, PT #### [facility] [address] [place] [address] [place] Creatinine Clr Calc Pharmacy 123.20 Normal [facility] Comment on above: Result Comment: PERF ORMED BY: [place] [address] PATHOLOGIST EIGHT ARM OPERATOR KAREN CORONADO M.D. Performed By: #### P TT, CBC, PT #### [address] Estimated GFR ( Sunitha > 60 [facility] Comment on above: Result Comment: GFR estimated reference range: According to KDOQI guidelines, <60 ml/min/1.73m2 is sufficient to diagnose a patient with chronic kidney disease. Performed By: #### P TT, CBC, PT #### [address] Estimated GFR (Non- Am > 60 [facility] Comment on above: Performed By: #### P TT, CBC, PT #### [address] Glucose [Mass/Vol] 114 mg/dL High 70-100 [facility] Comment on above: Result Comment: [place] [facility] Glucose Reference Range is dependent on time and content of last meal. Glucose of more than 200 mg/dL in a nonstressed, ambulatory subject supports the diagnosis of Diabetes Mellitus. ADA recommended reference range Performed By: #### P TT, CBC, PT #### [address] Potassium [Moles/Vol] 3.8 mmol/L Normal 3.5-5.1 [facility] Comment on above: Performed By: #### P TT, CBC, PT #### [place] [address] [place] Sodium [Moles/Vol] 137 mmol/L Normal 136-146 [facility] Comment on above: Performed By: #### P TT, CBC, PT #### [address] Urea nitrogen [Mass/Vol] 9 mg/dL Normal 9-23 [facility] Comment on above: Performed By: #### P TT, CBC, PT #### [place] [address] [place] Complete Blood Count Auto Di ffon 11-25-2021 Basophils (Bld) [#/Vol] 0.1 10*3/uL Normal 0.0-0.2 [facility] Comment on above: Result Comment: PERF ORMED BY: [place] [address] PATHOLOGIST EIGHT ARM OPERATOR KAREN CORONADO M.D. Performed By: #### P TT, CBC, PT #### [address] Basophils/100 WBC (Bld) 1.6 % Normal . [facility] Comment on above: Performed By: #### P TT, CBC, PT #### [facility] [address] [place] [address] Eosinophils (Bld) [#/Vol] 0.5 10*3/uL High 0.0-0.45 [facility] Comment on above: Performed By: #### P TT, CBC, PT #### [address] Eosinophils/100 WBC (Bld) 4.9 % Normal . [facility] Comment on above: Performed By: #### P TT, CBC, PT #### [facility] [address] [place] [address] Erythrocyte distribution width (RBC) [Ratio] 14.7 % Normal 12.0-14.8 [facility] Comment on above: Performed By: #### P TT, CBC, PT #### [address] Hematocrit (Bld) [Volume fraction] 34.0 % Low 38.8-50.0 [facility] Comment on above: Performed By: #### P TT, CBC, PT #### [facility] [address] [place] [address] [place] Hemoglobin (Bld) [Mass/Vol] 11.5 g/dL Low 13.0-17.0 [facility] Comment on above: Performed By: #### P TT, CBC, PT #### [facility] [address] [place] [address] [place] Lymphocytes (Bld) [#/Vol] 2.2 10*3/uL Normal 1.00-4.8 [facility] Comment on above: Performed By: #### P TT, CBC, PT #### [facility] [address] Lymphocytes/100 WBC (Bld) 23.9 % Normal . [facility] Comment on above: Performed By: #### P TT, CBC, PT #### [facility] [address] MCH (RBC) [Entitic mass] 27.8 pg Normal 27.5-35.2 [facility] Comment on above: Performed By: #### P TT, CBC, PT #### [facility] [address] MCV (RBC) [Entitic vol] 82.3 fL Low 83.5-101 [facility] Comment on above: Performed By: #### P TT, CBC, PT #### [address] Mean Corpuscular HGB Conc 33.8 g/dL Normal 32.5-35.6 [facility] Comment on above: Performed By: #### P TT, CBC, PT #### [address] Monocytes (Bld) [#/Vol] 0.6 10*3/uL Normal 0.0-0.8 [facility] Comment on above: Performed By: #### P TT, CBC, PT #### [address] Monocytes/100 WBC (Bld) 6.4 % Normal . [facility] Comment on above: Performed By: #### P TT, CBC, PT #### [address] Neutrophils (Bld) [#/Vol] 5.8 10*3/uL Normal 1.8-7.7 [facility] Comment on above: Performed By: #### P TT, CBC, PT #### [address] [address] [place] Neutrophils/100 WBC (Bld) 63.2 % Normal . [facility] Comment on above: Performed By: #### P TT, CBC, PT #### [place] [address] [place] Nucleated RBC/100 WBC (Bld) [Ratio] 0.0 % Normal 0-0.5 [facility] Comment on above: Performed By: #### P TT, CBC, PT #### [address] Platelet mean volume (Bld) [Entitic vol] 7.3 fL Normal 6.6-10.1 [facility] Comment on above: Performed By: #### P TT, CBC, PT #### [address] Platelets (Bld) [#/Vol] 231 10*3/uL Normal 150-450 [facility] Comment on above: Performed By: #### P TT, CBC, PT #### [place] [address] [place] RBC (Bld) [#/Vol] 4.13 10*6/uL Normal 3.90-5.60 [facility] Comment on above: Performed By: #### P TT, CBC, PT #### [address] WBC (Bld) [#/Vol] 9.2 10*3/uL Normal 4.5-11.0 [facility] Comment on above: Performed By: #### P TT, CBC, PT #### [place] [address] [place] ECG 12 lead ECGon 11-25-2021 ECG 12 lead ECG [facility] [place] [address] [place] [address] Electrocardiograph Report Signed Patient: Barry Galdamez MR#: [id number] 41 : 1955 Acct:[id number] Age/Sex: 66 / M ADM Date: 11/23/21 Loc: Room: [address] [place] [address] Type: DIS IN Attending Dr: Merline Elias MD Ordering Provider: Elieser Landers MD Date of Service: 11/25/2104/10/1452 ECG/ECG 12 lead ECG: Post Angioplasty Procedure Copies to: Test Reason : Blood Pressure : / mmHG Vent. Rate : 093 BPM Atrial Rate : 093 BPM P-R Int : 160 ms QRS Dur : 140 ms QT Int : 406 ms P-R-T Axes : 051 -08 034 degrees QTc Int : 504 ms Normal sinus rhythm Right bundle branch block T wave abnormality, consider lateral ischemia Abnormal ECG No previous ECGs available Confirmed by HÉCTOR SALDIVAR DO ([id number]) on 11/25/2021 4:37:48 PM Referred By: [facility] Electronically Signed By:HÉCTOR SALDIVAR DO Transcribed By: [facility] Signed By Héctor Saldivar DO 11/25 1634 [facility] echo transthoracicon [facility] echo transthoracic [facility] [place] [address] Echocardiogram Signed Patient: Barry Galdamez MR#: [id number] 41 : 1955 Acct:[id number] Age/Sex: 66 / M ADM Date: 11/23/21 Loc: Room: 2S9221-8 Type: DIS IN Attending Dr: Merline Elias MD Ordering Provider: Maya Doyle MD Date of Service: 11/25/21/ [facility] transthoracic: chest pain Copies to: MD Maribell Sanon MD Weight: 264 lb Performed By: ALFREDA Koch BSA: 2.4 m2 BP: 158/81 mmHg HR: 55 Reason For Study: chest pain History: HTN, Obesity Interpretation Summary Ejection Fraction = 55-60%. There is trace mitral regurgitation. There is trace tricuspid regurgitation. Mild to moderate concentric left ventricular hypertrophy. There is moderate apical wall hypokinesis. The left atrium appears mildly dilated. Trace aortic regurgitation. The right ventricular systolic pressure is 33 mmHg. Right ventricular systolic pressure is consistent with mild pulmonary hypertension. There is no comparison study available. Procedure/Quality: A two-dimensional transthoracic echocardiogram with color flow, Doppler and injection of contrast agent Definity was performed. A two- dimensional transthoracic echocardiogram with color flow and Doppler was performed. Left Ventricle: The left ventricular size is normal. Mild to moderate concentric left ventricular hypertrophy. Ejection Fraction = 55-60%. There is moderate apical wall hypokinesis. Left Atrium: The left atrium appears mildly dilated. Right Atrium: The right atrium appears normal in size. Right Ventricle: The right ventricular size, thickness and function are normal. Aortic Valve: The aortic valve is normal in structure and function. Trace aortic regurgitation. Mitral Valve: The mitral valve is normal in structure and function. There is trace mitral regurgitation. Tricuspid Valve: The tricuspid valve is normal in structure and function. There is trace tricuspid regurgitation. The right ventricular systolic pressure is 33 mmHg. Right ventricular systolic pressure is consistent with mild pulmonary hypertension. Pulmonic Valve: The pulmonic valve is normal in structure and function. Arteries: The aortic root is normal size. Pericardium/Pleura: No pericardial effusion seen. There is no pleural effusion. IVC/Hepatic Viens: The inferior vena cava is normal in size, with a normal collapsibility index. Measurements with Normals IVSd: 1.6 cm (0.7-1.1 cm)LVIDd: 5.0 cm (3.7-5.4 cm) LVPWd: 1.5 cm (0.7-1.1 cm)LVIDs: 3.0 cm (2.3-3.6 cm) LA dimension: 4.3 cm(2.3-4.0 cm)Ao root diam: 3.0 cm(2.0-3.6 cm) Doppler with Normals RVSP(TR): 33.8 mmHg (18-35mmHg) MV E max jocelyn: 83.1 cm/sec(0.8-1.3m/s) MV A max jocelyn: 98.5 cm/sec(0.0-0.0m/s) MV E/A: 0.84 (<1.5) MMode/2D Measurements Calculations RVDd: 3.0 cm FS: 40.0 % Ao root area: LVLd ap4: 8.9 cm TAPSE: 2.4 cm EDV(Teich): 6.9 cm2 EDV(MOD-sp4): RV S Jocelyn: 116.9 ml 209.0 ml 18.6 cm/sec ESV(Teich): LVLs ap4: 8.7 cm 34.5 ml ESV(MOD-sp4): EF(Teich): 70.4 % 93.3 ml EF(MOD-sp4): 55.4 % __ SV(MOD-sp4): LAV(MOD-sp4): LA A2 area: 9.9 cm2 115.7 ml 14.7 ml LAV(MOD-sp2): LA A4 area: 8.6 cm2 20.7 ml LA length (vol): 4.0 cm LA vol: 18.2 ml LA vol index: 7.5 ml/m2 Doppler Measurements Calculations MV dec time: MV max PG: E/E' lat: 9.4 MV dec slope: 0.30 sec 49.0 mmHg E/E' med: 12.9 288.3 cm/sec2 __ MR max jocelyn: TV max PG: TR max jocelyn: 349.9 cm/sec 24.0 mmHg 243.7 cm/sec MR max PG: TR max P.0 mmHg 23.8 mmHg RAP systole: 10.0 mmHg Transcribed By: SCV Performed At: 11/25/21 1037 Signed By: Maribell Rivas MD 11/25/21 1541 Normal [facility] Partial Thromboplastin Timeo n 11-25-2021 aPTT Coag (Bld) [Time] 58.4 s High 25.1-36.5 [facility] Comment on above: Result Comment: PERF ORMED BY: [facility] [address] [place] [address] PATHOLOGIST EIGHT ARM OPERATOR KAREN CORONADO M.D. Performed By: #### P TT, CBC, PT #### [facility] [address] [place], [place] [address] aPTT Coag (Bld) [Time] 59.8 s High 25.1-36.5 [facility] Comment on above: Order Comment: List the anticoagulant: HEPARIN, UNFRACTIONATED Result Comment: PERF ORMED BY: [place] [address] PATHOLOGIST EIGHT ARM OPERATOR KAREN CORONADO M.D. Performed By: #### P TT #### [address] Prothrombin Time INRon 11-25 INR Coag (PPP) [Relative time] 1.2 {INR} Normal [facility] Comment on above: Result Comment: INR Therapeutic Range A) Pre- and Peroperative OAT started two weeks before surgery. NOT HIP SURGERY: 1.5 - 2.5 HIP SURGERY: 2 - 3 B) Primary and secondary prevention of venous THROMBOSIS: 2 - 3 C) Active venous thrombosis, pulmonary embolism and prevention of recurrent venous thrombosis: 2 - 3 D) Prevention of arterial thromboembolism including patients with mechanical heart valves: 3 - 4.5 PERFORMED BY: [place] [address] PATHOLOGIST EIGHT ARM OPERATOR KAREN CORONADO M.D. Performed By: #### P TT, CBC, PT #### [place] [id number] [facility] PT Coag (PPP) [Time] 13.7 s High 9.0-12.9 [facility] Comment on above: Performed By: #### P TT, CBC, PT #### [facility] [address] [place] [address] A1C with Estimated Average G luon 11-24-2021 Glucose [Mass/Vol] 131 mg/dL Normal [facility] Comment on above: Result Comment: PERF ORMED BY: [place] [address] PATHOLOGIST EIGHT ARM OPERATOR KAREN CORONADO M.D. Performed By: #### P TT, CBC, PT #### [facility] [address] HbA1c (Bld) [Mass fraction] 6.2 % High 4.3-5.6 [facility] Comment on above: Result Comment: Incr eased risk for diabetes: 5.7 - 6.4 diabetes: >6.4 glycemic control for adults with diabetes: <7.0 Performed By: #### P TT, CBC, PT #### [address] Basic Metabolic Panelon 05-0 -2021 Calcium [Mass/Vol] 8.2 mg/dL Normal 8.2-10.2 [facility] Comment on above: Performed By: #### P TT, CBC, PT #### [address] Chloride [Moles/Vol] 104 mmol/L Normal 95-114 [facility] Comment on above: Performed By: #### P TT, CBC, PT #### [address] CO2 [Moles/Vol] 26.5 mmol/L Normal 22.0-30.0 [facility] Comment on above: Performed By: #### P TT, CBC, PT #### [address] Creatinine [Mass/Vol] 0.82 mg/dL Normal 0.64-1.27 [facility] Comment on above: Performed By: #### P TT, CBC, PT #### [address] Creatinine Clr Calc Pharmacy 121.60 [facility] Comment on above: Performed By: #### P TT, CBC, PT #### [address] Estimated GFR ( Sunitha > 60 [facility] Comment on above: Result Comment: GFR estimated reference range: According to KDOQI guidelines, <60 ml/min/1.73m2 is sufficient to diagnose a patient with chronic kidney disease. Performed By: #### P TT, CBC, PT #### [address] [place] [address] [place] Estimated GFR (Non- Am > 60 Normal [facility] Comment on above: Performed By: #### P TT, CBC, PT #### [facility] [address] Glucose [Mass/Vol] 116 mg/dL High 70-100 [facility] Comment on above: Result Comment: [place] Glucose Reference Range is dependent on time and content of last meal. Glucose of more than 200 mg/dL in a nonstressed, ambulatory subject supports the diagnosis of Diabetes Mellitus. ADA recommended reference range Performed By: #### P TT, CBC, PT #### [facility] [address] Potassium [Moles/Vol] 3.9 mmol/L Normal 3.5-5.1 [facility] Comment on above: Performed By: #### P TT, CBC, PT #### [address] Sodium [Moles/Vol] 138 mmol/L Normal 136-146 [facility] Comment on above: Performed By: #### P TT, CBC, PT #### [address] Urea nitrogen [Mass/Vol] 11 mg/dL Normal 9-23 [facility] Comment on above: Performed By: #### P TT, CBC, PT #### [address] Complete Blood Count Auto Di ffon 11-24-2021 Basophils (Bld) [#/Vol] 0.1 10*3/uL Normal 0.0-0.2 [facility] Comment on above: Result Comment: PERF ORMED BY: [place] [address] PATHOLOGIST EIGHT ARM OPERATOR KAREN CORONADO M.D. Performed By: #### P TT, CBC, PT #### [place] [address] [place] Basophils/100 WBC (Bld) 1.1 % Normal . [facility] Comment on above: Performed By: #### P TT, CBC, PT #### [facility] [address] Eosinophils (Bld) [#/Vol] 0.2 10*3/uL Normal 0.0-0.45 [facility] Comment on above: Performed By: #### P TT, CBC, PT #### [address] Eosinophils/100 WBC (Bld) 2.0 % Normal . [facility] Comment on above: Performed By: #### P TT, CBC, PT #### [address] Erythrocyte distribution width (RBC) [Ratio] 14.8 % Normal 12.0-14.8 [facility] Comment on above: Performed By: #### P TT, CBC, PT #### [address] Hematocrit (Bld) [Volume fraction] 34.5 % Low 38.8-50.0 [facility] Comment on above: Performed By: #### P TT, CBC, PT #### [address] Hemoglobin (Bld) [Mass/Vol] 11.6 g/dL Low 13.0-17.0 [facility] Comment on above: Performed By: #### P TT, CBC, PT #### [place] [address] [place] Lymphocytes (Bld) [#/Vol] 2.2 10*3/uL Normal 1.00-4.8 [facility] Comment on above: Performed By: #### P TT, CBC, PT #### [address] Lymphocytes/100 WBC (Bld) 25.0 % Normal . [facility] Comment on above: Performed By: #### P TT, CBC, PT #### [address] MCH (RBC) [Entitic mass] 27.4 pg Low 27.5-35.2 [facility] Comment on above: Performed By: #### P TT, CBC, PT #### [facility] [address] MCV (RBC) [Entitic vol] 81.6 fL Low 83.5-101 [facility] Comment on above: Performed By: #### P TT, CBC, PT #### [address] Mean Corpuscular HGB Conc 33.6 g/dL Normal 32.5-35.6 [facility] Comment on above: Performed By: #### P TT, CBC, PT #### [address] Monocytes (Bld) [#/Vol] 0.4 10*3/uL Normal 0.0-0.8 [facility] Comment on above: Performed By: #### P TT, CBC, PT #### [address] Monocytes/100 WBC (Bld) 4.6 % Normal . [facility] Comment on above: Performed By: #### P TT, CBC, PT #### [address] Neutrophils (Bld) [#/Vol] 6.0 10*3/uL Normal 1.8-7.7 [facility] Comment on above: Performed By: #### P TT, CBC, PT #### [address] Neutrophils/100 WBC (Bld) 67.3 % Normal . [facility] Comment on above: Performed By: #### P TT, CBC, PT #### [address] Nucleated RBC/100 WBC (Bld) [Ratio] 0.0 % Normal 0-0.5 [facility] Comment on above: Performed By: #### P TT, CBC, PT #### [address] Platelet mean volume (Bld) [Entitic vol] 6.8 fL Normal 6.6-10.1 [facility] Comment on above: Performed By: #### P TT, CBC, PT #### [facility] [address] Platelets (Bld) [#/Vol] 253 10*3/uL Normal 150-450 [facility] Comment on above: Performed By: #### P TT, CBC, PT #### [facility] [address] RBC (Bld) [#/Vol] 4.22 10*6/uL Normal 3.90-5.60 [facility] Comment on above: Performed By: #### P TT, CBC, PT #### [facility] [address] WBC (Bld) [#/Vol] 8.9 10*3/uL Normal 4.5-11.0 [facility] Comment on above: Performed By: #### P TT, CBC, PT #### [facility] [address] ECG 12 lead ECGon 11-24-2021 ECG 12 lead ECG [facility] [place] [address] [place] [address] Electrocardiograph Report Signed Patient: Barry Galdamez MR#: [id number] 41 : 1955 Acct:[id number] Age/Sex: 66 / M ADM Date: 11/23/21 Loc: Room: [address] [place] [address] Type: DIS IN Attending Dr: Merline Elias MD Ordering Provider: Maya Doyle MD Date of Service: 11/24/2103/10/500 ECG/ECG 12 lead ECG: chest pain Copies to: Test Reason : Blood Pressure : / mmHG Vent. Rate : 086 BPM Atrial Rate : 086 BPM P-R Int : 152 ms QRS Dur : 154 ms QT Int : 394 ms P-R-T Axes : 049 -08 020 degrees QTc Int : 471 ms Normal sinus rhythm Right bundle branch block Abnormal ECG When compared with ECG of 23-NOV-2021 21:30, (Unconfirmed) T wave inversion now evident in Anterior leads Confirmed by ROSEANNE FARFAN [facility], [place] ([id number]) on 11/24/2021 9:45:33 AM Referred By: Electronically Signed By:SUNDAR CRONIN MD [facility] Transcribed By: [facility] Signed By Sundar Cronin MD, [facility] 11/24/21 0945 Normal [facility] Lipid Panelon 11-24-2021 Cholesterol [Mass/Vol] 129 mg/dL Low 140-200 [facility] Comment on above: Result Comment: Chol less than 200 mg/dl low risk Chol 201-239 mg/dl borderline risk Chol 240 mg/dl and greater high risk Performed By: #### P TT, CBC, PT #### [facility] [address] [place] [id number] [place] Cholesterol in HDL [Mass/Vol] 24 mg/dL Low 29-71 [facility] Comment on above: Result Comment: HDL CHOL ATP-III CLASSIFICATION Cardiovascular Risk HDL > or equal to 60 mg/dL LOW HDL < 40 mg/dL HIGH Performed By: #### P TT, CBC, PT #### [facility] [address] [place] [address] [place] Cholesterol.total/Chol esterol in HDL [Mass ratio] 5.4 {ratio} Normal <5.0 [facility] Comment on above: Result Comment: PERF ORMED BY: [place] [address] PATHOLOGIST EIGHT ARM OPERATOR KAREN CORONADO M.D. Performed By: #### P TT, CBC, PT #### [facility] [address] [place] [address] [place] LDL Cholesterol,Calculated 86 mg/dL Normal 0-100 [facility] Comment on above: Result Comment: LDL ATP III CLASSIFICATION LDL less than 100 mg/dL Optimal LDL 100-129 mg/dL Near or above optimal LDL 130-159 mg/dL Borderline high LDL 160-189 mg/dL High LDL greater than 189 mg/dL Very high Performed By: #### P TT, CBC, PT #### [facility] [address] [place] [address] [place] Triglyceride w/Reflex 96 mg/dL Normal 35-149 [facility] Comment on above: Result Comment: TRIG ATP III CLASSIFICATION TRIG less than 150 mg/dL Normal TRIG 150-199 mg/dL Borderline high TRIG 200-500 mg/dL High TRIG greater than 500 mg/dL Very high Standard traceable to the Center for Disease Conrtrol and Prevention (CDC) test method. Performed By: #### P TT, CBC, PT #### [facility] [address] [place] [address] VLDL CHOLESTEROL 19 mg/dL Normal [facility] Comment on above: Performed By: #### P TT, CBC, PT #### [facility] [address] Magnesiumon 11-24-2021 Magnesium [Mass/Vol] 1.8 mg/dL Normal 1.6-2.6 [facility] Comment on above: Performed By: #### P TT, CBC, PT #### [address] Partial Thromboplastin Timeo n 11-24-2021 aPTT Coag (Bld) [Time] 71.4 s High 25.1-36.5 [facility] Comment on above: Result Comment: PERF ORMED BY: [place] [address] PATHOLOGIST EIGHT ARM OPERATOR KAREN CORONADO M.D. Performed By: #### P TT #### [address] aPTT Coag (Bld) [Time] 37.7 s High 25.1-36.5 [facility] Comment on above: Result Comment: PERF ORMED BY: [place] [address] PATHOLOGIST EIGHT ARM OPERATOR KAREN CORONADO M.D. Performed By: #### P TT #### [address] aPTT Coag (Bld) [Time] 55.3 s High 25.1-36.5 [facility] Comment on above: Result Comment: PERF ORMED BY: [facility] [address] [place] [address] PATHOLOGIST EIGHT ARM OPERATOR KAREN CORONADO M.D. Performed By: #### P T, PTT, BMP, MG, LIPID #### [facility] [address] [place] [address] aPTT Coag (Bld) [Time] 33.3 s Normal 25.1-36.5 [facility] Comment on above: Result Comment: PERF ORMED BY: [facility] [address] [place] [address] PATHOLOGIST EIGHT ARM OPERATOR KAREN CORONADO M.D. Performed By: #### P TT, CBC, PT #### [facility] [address] [place] [address] Prothrombin Time INRon 11-24 INR Coag (PPP) [Relative time] 1.2 {INR} Normal [facility] Comment on above: Result Comment: INR Therapeutic Range A) Pre- and Peroperative OAT started two weeks before surgery. NOT HIP SURGERY: 1.5 - 2.5 HIP SURGERY: 2 - 3 B) Primary and secondary prevention of venous THROMBOSIS: 2 - 3 C) Active venous thrombosis, pulmonary embolism and prevention of recurrent venous thrombosis: 2 - 3 D) Prevention of arterial thromboembolism including patients with mechanical heart valves: 3 - 4.5 Performed By: #### P T, PTT, BMP, MG, LIPID #### [facility] [address] [place] [address] PT Coag (PPP) [Time] 13.4 s High 9.0-12.9 [facility] Comment on above: Performed By: #### P T, PTT, BMP, MG, LIPID #### [facility] [address] [place] [address] INR Coag (PPP) [Relative time] 1.2 {INR} Normal [facility] Comment on above: Result Comment: INR Therapeutic Range A) Pre- and Peroperative OAT started two weeks before surgery. NOT HIP SURGERY: 1.5 - 2.5 HIP SURGERY: 2 - 3 B) Primary and secondary prevention of venous THROMBOSIS: 2 - 3 C) Active venous thrombosis, pulmonary embolism and prevention of recurrent venous thrombosis: 2 - 3 D) Prevention of arterial thromboembolism including patients with mechanical heart valves: 3 - 4.5 Performed By: #### P TT, CBC, PT #### [facility] [address] PT Coag (PPP) [Time] 13.0 s High 9.0-12.9 [facility] Comment on above: Performed By: #### P TT, CBC, PT #### [facility] [address] Troponin I High Sensitivityo n 11-24-2021 Troponin I High Sensitivity 308 pg/mL Off scale high 0-20 [facility] Comment on above: Result Comment: Resu lts called at 0026 on 11/24/21 PERFORMED BY: [place] [address] PATHOLOGIST EIGHT ARM OPERATOR KAREN CORONADO M.D. Performed By: #### P TT, CBC, PT #### [address] BNPon 11-23-2021 Natriuretic peptide B (Bld) [Mass/Vol] 153.0 pg/mL Normal <=900.0 [facility] Comment on above: Performed By: #### H STROPN #### [facility] [address] [place] [address] Dr. Troy Hickey CBC AUTO DIFFon 11-23-2021 BASO # 0.1 103/ul Normal 0.0-0.1 [facility] Comment on above: Performed By: #### H STROPN #### [facility] [address] [place] [address] Dr. Troy Hickey Basophils/100 WBC (Bld) 0.7 % Normal 0.2-2.0 [facility] Comment on above: Performed By: #### H STROPN #### [facility] [address] [place] [address] Dr. Troy Hickey EO # 0.4 103/ul Normal 0.0-0.7 [facility] Comment on above: Performed By: #### H STROPN #### [facility] [address] [place] [address] [address] Troy Hickey Eosinophils/100 WBC (Bld) 4.2 % Normal 0.9-7.0 [facility] Comment on above: Performed By: #### H STROPN #### [facility] [address] [place] [address] Dr. Troy Hickey Erythrocyte distribution width (RBC) [Ratio] 14.2 % Normal 11.0-15.0 [facility] Comment on above: Performed By: #### H STROPN #### [facility] [address] [place] [address] Dr. Troy Hickey Hematocrit (Bld) [Volume fraction] 40.2 % Critically low 42.0-54.0 [facility] Comment on above: Performed By: #### H STROPN #### [facility] [address] [place] [address] Dr. Troy Hickey Hemoglobin (Bld) [Mass/Vol] 12.4 g/dL Critically low 14.0-18.0 [facility] Comment on above: Performed By: #### H STROPN #### [facility] [address] [place] [address] Dr. Troy Hickey IG # 0.03 10e3/ul Normal 0.00-0.03 [facility] Comment on above: Performed By: #### H STROPN #### [facility] [address] [place] [address] Dr. Troy Hickey IG % 0.3 % Normal 0.0-0.5 [facility] Comment on above: Performed By: #### H STROPN #### [facility] [address] [place] [address] Dr. Troy Hickey LYMPH # 2.4 103/ul Normal 1.2-3.8 [facility] Comment on above: Performed By: #### H STROPN #### [facility] [address] [place] [address] Dr. Troy Hickey Lymphocytes/100 WBC (Bld) 27.9 % Normal 20.5-60.0 [facility] Comment on above: Performed By: #### H STROPN #### [facility] [address] [place] [address] Dr. Troy Hickey MANUAL DIFF REQ NO Normal [facility] Comment on above: Performed By: #### H STROPN #### [facility] [address] [place] [address] Dr. Troy Hickey MCH (RBC) [Entitic mass] 27.2 pg Normal 25.9-34.0 [facility] Comment on above: Performed By: #### H STROPN #### [facility] [address] [place] [address] Dr. Troy Hickey MCHC (RBC) [Mass/Vol] 30.8 g/dL Normal 29.9-35.2 [facility] Comment on above: Performed By: #### H STROPN #### [facility] [address] [place] [address] Dr. Troy Hickey MCV (RBC) [Entitic vol] 88.2 fL Normal 80.0-94.0 [facility] Comment on above: Performed By: #### H STROPN #### [facility] [address] [place] [address] Dr. Troy Hickey MONO # 0.6 103/ul Normal 0.3-0.8 [facility] Comment on above: Performed By: #### H STROPN #### [facility] [address] [place] [address] Dr. Troy Hickey Monocytes/100 WBC (Bld) 7.2 % Normal 1.7-12.0 [facility] Comment on above: Performed By: #### H STROPN #### [facility] [address] [place] [address] Dr. Troy Hickey NEUT # 5.2 103/ul Normal 1.4-6.5 [facility] Comment on above: Performed By: #### H STROPN #### [facility] [address] [place] [address] Dr. Troy Hickey Neutrophils/100 WBC (Bld) 59.7 % Normal 43.0-75.0 [facility] Comment on above: Performed By: #### H STROPN #### [facility] [address] [place], [place] [address] Dr. Troy Hickey Platelet mean volume (Bld) [Entitic vol] 8.5 fL Critically low 9.5-13.5 [facility] Comment on above: Performed By: #### H STROPN #### [facility] [address] [place] [address] [address] Troy Hickey PLT 252 103/ul Normal 150-450 [facility] Comment on above: Performed By: #### H STROPN #### [facility] [address] [place], [place] [address] Dr. Troy Hickey RBC 4.56 106/ul Critically low 4.70-6.10 [facility] Comment on above: Performed By: #### H STROPN #### [facility] [address] [place] [address] [address] Troy Hickey WBC 8.6 103/ul Normal 4.0-11.0 [facility] Comment on above: Performed By: #### H STROPN #### [facility] [address] [place] [address] [address] Troy Hickey CTA CHEST WO W CONon 05-07-2 022 CTA CHEST WO W CON EXAMINATION:CTA CHEST WO W CON INDICATION:Pulmonary embolism, hypertension, chest pain COMPARISON:10/07/2017 TECHNIQUE:Thin section transaxial slices were acquired through the chest with intravenous contrast per PE protocol. Coronal and sagittal reconstructed images were reviewed. FINDINGS: PULMONARY ARTERIES: There is good opacification of the pulmonary vasculature. There is some minimal motion artifact degrading image quality for evaluation of the more distal pulmonary arterial branches. There are no filling defects identified in the main pulmonary arteries or the segmental branches. LUNGS: There is a stable pulmonary nodule in the anterior right upper lobe measuring 0.6 cm. This likely represents a noncalcified granuloma due to interval stability since the prior examination from 2018. There is no suspicious airspace disease in the lungs to suggest infection. PLEURAL CAVITY: No pleural effusion. MEDIASTINUM: Trachea and central airways are patent. HEART: The heart is unremarkable.There is no evidence of right heart strain. VASCULAR:There is no aneurysm or dissection of the thoracic aorta. LYMPH NODES:There is a nonspecific mildly enlarged left paratracheal lymph node measuring 1.2 cm. This lymph node was present previously however has increased in size since the prior exam. Additional smaller shoddy lymph nodes are present elsewhere in the mediastinum and haylee. CHEST WALL/AXILLA: Chest wall and axilla are unremarkable. BONES: There is ossification along the anterior longitudinal ligament consistent with diffuse idiopathic skeletal hyperostosis. VISUALIZED UPPER ABDOMEN: Upper abdominal structures are unremarkable. IMPRESSION: 1. No evidence of pulmonary embolus. No acute findings in the chest. Electronically authenticated by: ABRAN CHRISTINE Date: 2021-11-23 19:06 Normal [facility] Coagulation Profileon 2021 aPTT Coag (Bld) [Time] 46.5 s High 25.1-36.5 [facility] Comment on above: Result Comment: PERF ORMED BY: [place] [address] PATHOLOGIST EIGHT ARM OPERATOR KAREN CORONADO M.D. Performed By: #### C BC, PP #### [address] INR Coag (PPP) [Relative time] 1.2 {INR} Normal [facility] Comment on above: Result Comment: INR Therapeutic Range A) Pre- and Peroperative OAT started two weeks before surgery. NOT HIP SURGERY: 1.5 - 2.5 HIP SURGERY: 2 - 3 B) Primary and secondary prevention of venous THROMBOSIS: 2 - 3 C) Active venous thrombosis, pulmonary embolism and prevention of recurrent venous thrombosis: 2 - 3 D) Prevention of arterial thromboembolism including patients with mechanical heart valves: 3 - 4.5 Performed By: #### C BC, PP #### [address] PT Coag (PPP) [Time] 13.5 s High 9.0-12.9 [facility] Comment on above: Performed By: #### C BC, PP #### [address] Complete Blood Count Auto Di ffon 11-23-2021 Basophils (Bld) [#/Vol] 0.0 10*3/uL Normal 0.0-0.2 [facility] Comment on above: Result Comment: PERF ORMED BY: [place] [address] PATHOLOGIST EIGHT ARM OPERATOR KAREN CORONADO M.D. Performed By: #### C BC, PP #### [address] Basophils/100 WBC (Bld) 0.3 % Normal . [facility] Comment on above: Performed By: #### C BC, PP #### [address] Eosinophils (Bld) [#/Vol] 0.2 10*3/uL Normal 0.0-0.45 [facility] Comment on above: Performed By: #### C BC, PP #### [address] Eosinophils/100 WBC (Bld) 2.5 % Normal . [facility] Comment on above: Performed By: #### C BC, PP #### [address] Erythrocyte distribution width (RBC) [Ratio] 14.4 % Normal 12.0-14.8 [facility] Comment on above: Performed By: #### C BC, PP #### [address] Hematocrit (Bld) [Volume fraction] 34.4 % Low 38.8-50.0 [facility] Comment on above: Performed By: #### C BC, PP #### [place] [address] [place] Hemoglobin (Bld) [Mass/Vol] 11.6 g/dL Low 13.0-17.0 [facility] Comment on above: Performed By: #### C BC, PP #### [address] Lymphocytes (Bld) [#/Vol] 1.7 10*3/uL Normal 1.00-4.8 [facility] Comment on above: Performed By: #### C BC, PP #### [address] Lymphocytes/100 WBC (Bld) 18.9 % Normal . [facility] Comment on above: Performed By: #### C BC, PP #### [address] MCH (RBC) [Entitic mass] 27.5 pg Normal 27.5-35.2 [facility] Comment on above: Performed By: #### C BC, PP #### [address] MCV (RBC) [Entitic vol] 81.8 fL Low 83.5-101 [facility] Comment on above: Performed By: #### C BC, PP #### [address] Mean Corpuscular HGB Conc 33.7 g/dL Normal 32.5-35.6 [facility] Comment on above: Performed By: #### C BC, PP #### [address] Monocytes (Bld) [#/Vol] 0.4 10*3/uL Normal 0.0-0.8 [facility] Comment on above: Performed By: #### C BC, PP #### [address] Monocytes/100 WBC (Bld) 4.1 % Normal . [facility] Comment on above: Performed By: #### C BC, PP #### [address] Neutrophils (Bld) [#/Vol] 6.8 10*3/uL Normal 1.8-7.7 [facility] Comment on above: Performed By: #### C BC, PP #### [address] Neutrophils/100 WBC (Bld) 74.2 % Normal . [facility] Comment on above: Performed By: #### C BC, PP #### [address] Nucleated RBC/100 WBC (Bld) [Ratio] 0.0 % Normal 0-0.5 [facility] Comment on above: Performed By: #### C BC, PP #### [address] Platelet mean volume (Bld) [Entitic vol] 6.7 fL Normal 6.6-10.1 [facility] Comment on above: Performed By: #### C BC, PP #### [address] Platelets (Bld) [#/Vol] 250 10*3/uL Normal 150-450 [facility] Comment on above: Performed By: #### C BC, PP #### [address] RBC (Bld) [#/Vol] 4.21 10*6/uL Normal 3.90-5.60 [facility] Comment on above: Performed By: #### C BC, PP #### [address] WBC (Bld) [#/Vol] 9.1 10*3/uL Normal 4.5-11.0 [facility] Comment on above: Performed By: #### C BC, PP #### [address] Comprehensive Metabolic Pane yvette 11-23-2021 Albumin [Mass/Vol] 3.1 g/dL Low 3.2-5.5 [facility] Comment on above: Performed By: #### P TT, CBC, PT #### [address] Albumin/Globulin [Mass ratio] 0.9 {ratio} Normal [facility] Comment on above: Performed By: #### P TT, CBC, PT #### [address] ALP [Catalytic activity/Vol] 77 U/L Normal 32-92 [facility] Comment on above: Performed By: #### P TT, CBC, PT #### [facility] [address] [id number] [place] ALT [Catalytic activity/Vol] 16 U/L Normal 10-60 [facility] Comment on above: Performed By: #### P TT, CBC, PT #### [facility] [address] [id number] [place] AST [Catalytic activity/Vol] 21 U/L Normal 10-42 [facility] Comment on above: Performed By: #### P TT, CBC, PT #### [facility] [address] [id number] [place] Bilirubin [Mass/Vol] 0.2 mg/dL Low 0.3-1.2 [facility] Comment on above: Performed By: #### P TT, CBC, PT #### [facility] [address] Calcium [Mass/Vol] 8.3 mg/dL Normal 8.2-10.2 [facility] Comment on above: Performed By: #### P TT, CBC, PT #### [facility] [address] [place] [address] [place] Chloride [Moles/Vol] 104 mmol/L Normal 95-114 [facility] Comment on above: Performed By: #### P TT, CBC, PT #### [facility] [address] [place] [address] [place] CO2 [Moles/Vol] 26.2 mmol/L Normal 22.0-30.0 [facility] Comment on above: Performed By: #### P TT, CBC, PT #### [facility] [address] [id number] [place] Creatinine [Mass/Vol] 0.84 mg/dL Normal 0.64-1.27 [facility] Comment on above: Performed By: #### P TT, CBC, PT #### [facility] [address] [place] [address] [place] Estimated GFR ( Sunitha > 60 Normal [facility] Comment on above: Result Comment: GFR estimated reference range: According to KDOQI guidelines, <60 ml/min/1.73m2 is sufficient to diagnose a patient with chronic kidney disease. Performed By: #### P TT, CBC, PT #### [facility] [address] Estimated GFR (Non- Am > 60 Normal [facility] Comment on above: Performed By: #### P TT, CBC, PT #### [facility] [address] Globulin (S) [Mass/Vol] 3.5 g/dL Normal [facility] Comment on above: Performed By: #### P TT, CBC, PT #### [address] Glucose [Mass/Vol] 137 mg/dL High 70-100 [facility] Comment on above: Result Comment: [place] Glucose Reference Range is dependent on time and content of last meal. Glucose of more than 200 mg/dL in a nonstressed, ambulatory subject supports the diagnosis of Diabetes Mellitus. ADA recommended reference range Performed By: #### P TT, CBC, PT #### [address] Potassium [Moles/Vol] 4.3 mmol/L Normal 3.5-5.1 [facility] Comment on above: Performed By: #### P TT, CBC, PT #### [address] Protein [Mass/Vol] 6.6 g/dL Normal 6.1-7.9 [facility] Comment on above: Performed By: #### P TT, CBC, PT #### [facility] [address] Sodium [Moles/Vol] 139 mmol/L Normal 136-146 [facility] Comment on above: Performed By: #### P TT, CBC, PT #### [facility] [address] Urea nitrogen [Mass/Vol] 15 mg/dL Normal 9-23 [facility] Comment on above: Performed By: #### P TT, CBC, PT #### [place] [address] [place] Covid-19 PCR (CVDTB)on SARS-CoV-2 (COVID-19) RNA ERNIE+probe Ql (Unsp spec) Not detected Normal NOT DETECTED [facility] Comment on above: Result Comment: This test is not yet approved or cleared by the [place] FDA. When there are no FDA-approved or cleared tests available, and other criteria are met, FDA can make tests available under an emergency access mechanism called an Emergency Use Authorization (EUA). The EUA for this test is supported by the Informatics Manager of Health and Human Service's (HHS's) declaration that circumstances exist to justify the emergency use of in vitro diagnostics for the detection and/or diagnosis of the virus that causes COVID-19. This EUA will remain in effect (meaning this test can be used) for the duration of the COVID-19 declaration justifying emergency of IVDs, unless it is terminated or revoked by FDA (after which the test may no longer be used). When diagnostic testing is negative, the possibility of a false negative should be considered in the context of a patient's recent exposures and the presence of clinical signs and symptoms consistent with SARS-CoV-2. Performed By: #### B CID2 #### [facility] [address] [place] [address] Dr. Troy Hickey D-DIMERon 11-23-2021 D-DIMER 0.52 mg/L FEU Critically high 0.19-0.50 [facility] Comment on above: Performed By: #### D DIM #### [facility] [address] [place] [address] Dr. Troy Hickey D-DIMER COMMENTS SEE BELOW Normal [facility] Comment on above: Result Comment: Incr eases in D-Dimer concentration observed with thromboembolic events can be variable due to localization, size, and age of the thrombus. Therefore, a thromboembolic event cannot be diagnosed with certainty on the basis of the reference range. D-Dimers may also be elevated for a variety of disorders including: advanced age, , coronary disease, cancer, liver disease, infection, inflammation, hematoma, DIC, trauma, post-surgery, diabetes, thrombolytic or anticoagulant therapy, stress, and generalized hospitalization. Performed By: #### D DIM #### [facility] [address] [address] [address] Troy Hickey ECG 12 lead ECGon 11-23-2021 ECG 12 lead ECG [facility] [place] [address] Electrocardiograph Report Signed Patient: Barry Gadlamez MR#: [id number] 41 : 1955 Acct:[id number] Age/Sex: 66 / M ADM Date: 11/23/21 Loc: Room: [address] [place] [address] Type: DIS IN Attending Dr: Merline Elias MD Ordering Provider: Maya Doyle MD Date of Service: 11/23/2102/07/2059 ECG/ECG 12 lead ECG: admission Copies to: Test Reason : Blood Pressure : / mmHG Vent. Rate : 079 BPM Atrial Rate : 079 BPM P-R Int : 158 ms QRS Dur : 154 ms QT Int : 432 ms P-R-T Axes : 054 -20 016 degrees QTc Int : 495 ms Normal sinus rhythm Right bundle branch block Abnormal ECG No previous ECGs available Confirmed by ROSEANNE FARFAN [facility], [place] ([id number]) on 11/24/2021 9:45:12 AM Referred By: Electronically Signed By:SUNDAR CRONIN MD [facility] Transcribed By: MUS Signed By Sundar Cronin MD, FACC 11/24/21 0945 Normal [facility] Magnesiumon 11-23-2021 Magnesium [Mass/Vol] 2.0 mg/dL Normal 1.6-2.6 [facility] Comment on above: Result Comment: PERF ORMED BY: [place] [address] PATHOLOGIST EIGHT ARM OPERATOR KAREN CORONADO M.D. Performed By: #### P TT, CBC, PT #### [facility] [address] [place] [address] [place] PROF 14(COMP METB)on 022 Albumin [Mass/Vol] 3.5 g/dL Normal 3.4-5.0 [facility] Comment on above: Performed By: #### H STROPN #### [facility] [address] [address] [address] Troy Hickey Albumin/Globulin [Mass ratio] 0.8 {ratio} Normal [facility] Comment on above: Performed By: #### H STROPN #### [facility] [address] [address] [address] Troy Hickey ALP [Catalytic activity/Vol] 104 U/L Normal 46-116 [facility] Comment on above: Performed By: #### H STROPN #### [facility] [address] [place] [address] Dr. Troy Hickey ALT [Catalytic activity/Vol] 22 U/L Normal 16-63 [facility] Comment on above: Performed By: #### H STROPN #### [facility] [address] [place] [address] Dr. Troy Hickey Anion gap [Moles/Vol] 6.2 mmol/L Normal [facility] Comment on above: Performed By: #### H STROPN #### [facility] [address] [place] [address] Dr. Troy Hickey AST [Catalytic activity/Vol] 16 U/L Normal 15-37 [facility] Comment on above: Performed By: #### H STROPN #### [facility] [address] [place] [address] Dr. Troy Hickey Bilirubin [Mass/Vol] 0.4 mg/dL Normal 0.2-1.0 [facility] Comment on above: Performed By: #### H STROPN #### [facility] [address] [place] [address] Dr. Troy Hickey Calcium [Mass/Vol] 8.2 mg/dL Critically low 8.5-10.1 [facility] Comment on above: Performed By: #### H STROPN #### [facility] [address] [place] [address] Dr. Troy Hickey Chloride [Moles/Vol] 104 mmol/L Normal 98-107 [facility] Comment on above: Performed By: #### H STROPN #### [facility] [address] [place] [address] Dr. Troy Hickey CO2 [Moles/Vol] 31.8 mmol/L Normal 21.0-32.0 [facility] Comment on above: Performed By: #### H STROPN #### [facility] [address] [place] [address] Dr. Troy Hickey Creatinine [Mass/Vol] 0.88 mg/dL Normal 0.70-1.30 [facility] Comment on above: Performed By: #### H STROPN #### [facility] [address] [place] [address] Dr. Troy Hickey EGFR-AF TURKMEN >60 Normal >=60 [facility] Comment on above: Performed By: #### H STROPN #### [facility] [address] [place] [address] Dr. Troy Hickey EGFR-NON AF TURKMEN >60 Normal >=60 [facility] Comment on above: Performed By: #### H STROPN #### [facility] [address] [place] [address] Dr. Troy Hickey Globulin (S) [Mass/Vol] 4.2 g/dL Normal [facility] Comment on above: Performed By: #### H STROPN #### [facility] [address] [place] [address] Dr. Troy Hickey Glucose [Mass/Vol] 109 mg/dL Critically high 74-106 T [facility] Comment on above: Performed By: #### H STROPN #### [facility] [address] [place] [address] Dr. Troy Hickey Potassium [Moles/Vol] 4.0 mmol/L Normal 3.5-5.1 [facility] Comment on above: Performed By: #### H STROPN #### [facility] [address] [place] [address] Dr. Troy Hickey Protein [Mass/Vol] 7.7 g/dL Normal 6.4-8.2 [facility] Comment on above: Performed By: #### H STROPN #### [facility] [address] [place] [address] Dr. Troy Hickey Sodium [Moles/Vol] 138 mmol/L Normal 136-145 [facility] Comment on above: Performed By: #### H STROPN #### [facility] [address] [place] [address] Dr. Troy Hickey Urea nitrogen [Mass/Vol] 17.0 mg/dL Normal 7.0-18.0 [facility] Comment on above: Performed By: #### H STROPN #### [facility] [address] [place] [address] Dr. Troy Hickey Urea nitrogen/Creatinine [Mass ratio] 19.3 mg/mg Normal [facility] Comment on above: Performed By: #### H STROPN #### [facility] [address] [place] [address] Dr. Troy Hickey PROTIMEon 11-23-2021 INR Coag (PPP) [Relative time] 1.01 {INR} Normal [facility] Comment on above: Performed By: #### B CID2 #### [facility] [address] [place] [address] Dr. Troy Hickey INR GUIDELINES SEE BELOW Normal [facility] Comment on above: Result Comment: WAQAS RED INR: 2.0 - 3.0 CONDITIONS NOT LISTED BELOW 2.5 - 3.5 FOR PROSTHETIC HEART VALVE REPLACEMENT 2.5 - 3.5 RECURRENT THROMBOSIS Performed By: #### B CID2 #### [facility] [address] [place] [address] Dr. Troy Hickey PT Coag (PPP) [Time] 10.9 s Normal 9.0-11.6 [facility] Comment on above: Performed By: #### B CID2 #### [facility] [address] [place] [address] Dr. Troy Hickey PTTon 11-23-2021 aPTT Coag (Bld) [Time] 28.3 s Normal 22.3-36.2 Th [facility] Comment on above: Performed By: #### B CID2 #### [facility] [address] [place] [address] Dr. Troy Hickey TROPONIN, HIGH SENSITIVITYon 11-23-2021 HSTROP 197.7 pg/mL Critically high 4.0-76.1 [facility] Comment on above: Result Comment: CUT- OFF POINTS HAVE BEEN ESTABLISHED BASED ON THE FOURTH UNIVERSAL DEFINITIONS OF MYOCARDIAL INFARCTION. THE UPPER REFERENCE LIMIT (URL) OF TROPONIN, DEFINED THE 99TH PERCENTILE OF cTnI DISTRIBUTION IN A REFERENCE POPULATION, HAS BEEN CONFIRMED THE DECISION THRESHOLD FOR GA DIAGNOSIS. Test Repeated. Critical Value Verified Performed By: #### H STROPN #### [facility] [address] [address] [address] Troy Hickey HSTROP 138.8 pg/mL Critically high 4.0-76.1 [facility] Comment on above: Result Comment: CUT- OFF POINTS HAVE BEEN ESTABLISHED BASED ON THE FOURTH UNIVERSAL DEFINITIONS OF MYOCARDIAL INFARCTION. THE UPPER REFERENCE LIMIT (URL) OF TROPONIN, DEFINED THE 99TH PERCENTILE OF cTnI DISTRIBUTION IN A REFERENCE POPULATION, HAS BEEN CONFIRMED THE DECISION THRESHOLD FOR GA DIAGNOSIS. Performed By: #### H STROPN #### [facility] [address] [address] [address] Troy Hickey Troponin I High Sensitivityo n 11-23-2021 Troponin I High Sensitivity 235 pg/mL Off scale high 0-20 [facility] Comment on above: Result Comment: Resu lts called at 2255 on 11/23/21 PERFORMED BY: [place] [address] PATHOLOGIST EIGHT ARM OPERATOR KAREN CORONADO M.D. Performed By: #### P TT, CBC, PT #### [facility] [address] [place] [address] XR FINGER MIN 2 VIEWSon 09-17 XR FINGER MIN 2 VIEWS EXAM: XR FINGER GA N 2 VIEWS HISTORY: Laceration of finger COMPARISON: None. TECHNIQUE: 3 views of the left index finger are performed. FINDINGS: There is no acute fracture. There are several small radiodensities adjacent to the radial and dorsal aspect of the proximal second phalanx, the largest measuring 1.6 mm. These could represent soft tissue calcifications. Radiopaque foreign bodies are not excluded. Please clinically correlate to the site of laceration. No acute fracture. There is a tiny metallic density within the webspace between the thumb and index finger, measuring approximately 1 mm. IMPRESSION: Tiny metallic foreign body within the webspace between the thumb and index finger. Several small densities adjacent to the proximal second phalanx, do not appear to be metallic. This could represent soft tissue calcifications. Small radio opaque foreign bodies are not completely excluded. Electronically authenticated by: LINDA MICHEL Date: 2021-10-05 15:49 Normal [facility] COVID Quick Testingon 2021 Result Positive [facility] Other Quick Fluon 08-08-2021 FLUAV Ab CF (S) [Titer] Negative [facility] Other FLUBV Ab CF (S) [Titer] Positive [facility] Other Vital Signs Date Time Vital Sign Value Performing Clinician Facility 03-26-2023 11:21-0400 Body height 182.88 cm [employer] Work Phone: [facility] [employer] 250 DO Work Phone: 03-26-2023 11:21-0400 Body mass index (BMI) [Ratio] 34.99 kg/m2 [employer] Work Phone: [facility] [employer] 250 DO Work Phone: 03-26-2023 11:21-0400 Body surface area Derived from formula 2.37 m2 [employer] Work Phone: [facility] [employer] 250 DO Work Phone: 03-26-2023 11:21-0400 Body weight 117.03 kg [employer] Work Phone: [facility] [employer] 250 DO Work Phone: 03-26-2023 11:21-0400 Diastolic blood pressure 70 mm[Hg] [employer] Work Phone: [facility] [employer] 250 DO Work Phone: 03-26-2023 11:21-0400 Heart rate 64 /min [employer] Work Phone: [facility] 250 DO Work Phone: 03-26-2023 11:21-0400 Systolic blood pressure 148 mm[Hg] [facility] Work Phone: [facility] 250 DO Work Phone: 09-18-2022 12:00-0500 Heart rate 66 /min [facility] Work Phone: [facility] 250 DO Work Phone: 09-18-2022 11:55-0500 Body height 182.88 cm [facility] Work Phone: [facility] 250 DO Work Phone: 09-18-2022 11:55-0500 Body mass index (BMI) [Ratio] 35.4 kg/m2 [facility] Work Phone: [facility] 250 DO Work Phone: 09-18-2022 11:55-0500 Body surface area Derived from formula 2.39 m2 [facility] Work Phone: [facility] 250 DO Work Phone: 09-18-2022 11:55-0500 Body weight 118.39 kg [facility] Work Phone: [facility] 250 DO Work Phone: 09-18-2022 11:55-0500 Diastolic blood pressure 72 mm[Hg] [facility] Work Phone: [facility] 250 DO Work Phone: 09-18-2022 11:55-0500 Systolic blood pressure 142 mm[Hg] [facility] Work Phone: [facility] 250 DO Work Phone: 03-19-2022 11:01-0400 Body height 182.88 cm [facility] Work Phone: [facility] 250 DO Work Phone: 03-19-2022 11:01-0400 Body mass index (BMI) [Ratio] 35.13 kg/m2 [facility] Work Phone: [facility] 250 DO Work Phone: 03-19-2022 11:01-0400 Body surface area Derived from formula 2.38 m2 [facility] Work Phone: [facility] 250 DO Work Phone: 03-19-2022 11:01-0400 Body weight 117.48 kg [facility] Work Phone: [facility] 250 DO Work Phone: 03-19-2022 11:01-0400 Diastolic blood pressure 62 mm[Hg] Joe Lam [facility] Work Phone: [facility] 250 DO Work Phone: 03-19-2022 11:01-0400 Heart rate 60 /min [facility] Work Phone: [facility] 250 DO Work Phone: 03-19-2022 11:01-0400 Systolic blood pressure 102 mm[Hg] [facility] Work Phone: [facility] 250 DO Work Phone: 12-09-2021 10:30-0400 Diastolic blood pressure 68 mm[Hg] [facility] Work Phone: [facility] 250 DO Work Phone: 12-09-2021 10:30-0400 Systolic blood pressure 118 mm[Hg] [facility] Work Phone: [facility] 250 DO Work Phone: 12-09-2021 10:25-0400 Body height 182.88 cm [facility] Work Phone: [facility] 250 DO Work Phone: 12-09-2021 10:25-0400 Body mass index (BMI) [Ratio] 36.08 kg/m2 [employer] Work Phone: [facility] 250 DO Work Phone: 12-09-2021 10:25-0400 Body surface area Derived from formula 2.4 m2 [employer] [facility] Work Phone: [facility] 250 DO Work Phone: 12-09-2021 10:25-0400 Body weight 120.66 kg Joe P House Work Phone: [facility] DO Work Phone: 12-09-2021 10:25-0400 Diastolic blood pressure 72 mm[Hg] Joe P House Work Phone: [facility] DO Work Phone: 12-09-2021 10:25-0400 Heart rate 66 /min Joe P House Work Phone: [facility] DO Work Phone: 12-09-2021 10:25-0400 Systolic blood pressure 124 mm[Hg] Joe P House Work Phone: [facility] DO Work Phone: 08-08-2021 15:15-0500 Body height 182.88 cm Jocelyn Diaz Other [facility] Other 08-08-2021 15:15-0500 Body mass index (BMI) [Ratio] 34.58 kg/m2 Jocelyn Diaz Other [facility] Other 08-08-2021 15:15-0500 Body temperature 97.1 [degF] Jocelyn Diaz Other [facility] Other 08-08-2021 15:15-0500 Body weight 115.67 kg Jocelyn Diaz Other [facility] Other 08-08-2021 15:15-0500 Respiratory rate 18 /min Jocelyn Emily Other [facility] Other 08-08-2021 15:15-0500 SaO2% (BldA) [Mass fraction] 98 % Jocelyn Diaz Other [facility] Other Encounters Encounter Date Encounter Type Care Provider Facility Start: 08-27-2023 ambulatory Gibran Barker MD Fac ility:[facility] Start: 07-21-2023 End: 07-26-2023 ambulatory JOE MADDOX Facility:[facility] Start: 07-14-2023 End: 07-15-2023 ambulatory JOE MADDOX Facility:[facility] Start: 06-25-2023 End: 06-26-2023 ambulatory Neymar Willingham Facility:[facility] Start: 06-05-2023 End: 06-06-2023 ambulatory PA-C Ariana Urena Facility:[facility] Start: 05-26-2023 End: 05-27-2023 ambulatory JOE MADDOX Facility:[facility] Start: 05-19-2023 End: 05-20-2023 ambulatory Neymar Willingham Facility:[facility] Start: 04-08-2023 End: 04-09-2023 ambulatory PA-C Ariana Urena Facility:[facility] Start: 03-26-2023 Office outpatient vi sit 25 minutes Joe Maddox Work Phone: [facility] DO Work Phone: Start: 03-26-[address] Addy Fuller Facility: Start: 08-21-2023 Rx Renewal Joe Carole Hous e Work Phone: [facility] DO Work Phone: Start: 01-09-2023 End: 01-10-2023 ambulatory RAJESH JOEL Facility:[facility] Start: 12-10-2022 End: 12-11-2022 ambulatory MD Ilya Bullock Facility:[facility] Start: 10-29-2022 ambulatory Emanuel Andrews Facility:[id number] Start: 09-18-2022 Office consultation new/estab patient 60 min Joe P House Work Phone: [facility] DO Work Phone: Start: 09-18-2022 Office outpatient vi sit 25 minutes Joe P House Work Phone: [facility] DO Work Phone: Start: 09-18-[address] Addy Fuller Facility: Start: 09-04-2022 End: 09-05-2022 ambulatory MD Ilya Bullock Facility:[facility] Start: 07-15-2022 End: 07-16-2022 ambulatory Ken Acosta Facility:[facility] Start: 05-22-2022 End: 05-23-[address] DOCTOR OCAMPO Facility:[facility] Start: 04-25-2022 End: 04-25-[address] JOE MADDOX Facility:[facility] Start: 04-23-2022 End: 04-24-[address] JOE MADDOX Facility:[facility] Start: 04-02-2022 End: 04-03-[address] JOE MADDOX Facility:[facility] Start: 03-19-2022 Office outpatient vi sit 25 minutes Jeo Maddox Work Phone: [facility] DO Work Phone: Start: 02-10-2022 End: 02-11-[address] JOE MADDOX Facility:[facility] Start: 12-17-2021 End: 02-19-2022 ambulatory EMANUEL TURNER Facility:[facility] Start: 12-09-2021 Transitional care paradise lazaro srvc 14 day discharge Joe Maddox Work Phone: [facility] 250 DO Work Phone: Start: 11-23-2021 End: 11-26-2021 Evaluation and management of inpatient Tamara Swanson Facility:[facility] Start: 11-23-2021 End: 11-23-2021 ambulatory [facility] Facility[facility] Start: 10-05-2021 End: 10-05-2021 ambulatory [facility] Facility:[facility] Start: 08-08-2021 End: 08-08-2021 ambulatory Jocelyn Diaz Other [facility] [employer] Other Start: 08-08-2021 Office outpatient ne w 20 minutes Jocelyn Diaz [facility] [place] Patient encounter status Joe Lam [employer] Work Phone: [facility] 250 DO Work Phone: End: 03-26-2023 Patient encounter status Joe Lam [employer] Work Phone: [facility] 250 DO Work Phone: Procedures Date Procedure Procedure Detail Performing Clinician Start: 02-10-[address] DOCTOR OCAMPO Comment on above: Performed By: #### B CID2 #### [facility] [address] [place] [address] Dr. Troy Hickey Appendectomy Joe Lam [employer] Work Phone: Cardiac catheterization Kika les P [employer] Work Phone: Colonoscopy Joe P [employer] Work Phone: Decompression of med lenore nerve Joe P [employer] Work Phone: History of percutane ous transluminal coronary angioplasty History of PTCA Joe P [employer] Work Phone: Insertion of arterial stent Joe P [employer] Work Phone: Prosthetic arthropla sty of the hip Joe P [employer] Work Phone: Repair of shoulder Joe P [employer] Work Phone: Total replacement of hip Melissa naseem P House Work Phone: Plan of Treatment Date Care Activity Detail Author Start: 10-22-2023 FUV, Provider: Addy Fuller, Status: Pen, Time: 10:50 AM FUV, Provider: Addy Fuller, Status: Pen, Time: 10:50 AM -[facility] DO Work Phone: Start: 05-27-2023 FUV, Provider: Emanuel Smalls, Status: Pen, Time: 1:30 PM FUV, Provider: Emanuel Smalls, Status: Pen, Time: 1:30 PM -[facility] DO Work Phone: Start: 03-26-2023 FUV, Provider: Addy Fuller, Status: Pen, Time: 11:20 AM FUV, Provider: Addy Fuller, Status: Pen, Time: 11:20 AM -[facility] DO Work Phone: Start: 10-29-2022 FUV, Provider: Emanuel Smalls, Status: Pen, Time: 1:00 PM FUV, Provider: Emanuel Smalls, Status: Pen, Time: 1:00 PM -[facility] DO Work Phone: Start: 09-25-2022 FUV, Provider: Addy Fuller, Status: Pen, Time: 11:20 AM FUV, Provider: Addy Fuller, Status: Pen, Time: 11:20 AM -[facility] DO Work Phone: Start: 03-19-2022 FUV, Provider: Addy Fuller, Status: Pen, Time: 10:30 AM FUV, Provider: Addy Fuller, Status: Pen, Time: 10:30 AM -[facility] DO Work Phone: Immunizations Immunization Date Immunization Notes Care Provider Brandon espinoza 10-05-2021 diphtheria, tetanus toxoids and pertussis vaccine Joe Lam House Work Phone: [facility] 250 DO Work Phone: 05-20-2021 Moderna COVID-19 Vac cine 100 MCG/0.5ML Intramuscular Suspension [facility] Work Phone: [facility] DO Work Phone: 04-03-2021 Pfizer-BioNTech COVI D-19 Vacc 30 MCG/0.3ML Intramuscular Suspension [facility] Work Phone: [facility] DO Work Phone: 03-13-2021 Pfizer-BioNTech COVI D-19 Vacc 30 MCG/0.3ML Intramuscular Suspension [facility] Work Phone: [facility] 250 DO Work Phone: 01-17-2021 Pfizer-BioNT COVID-1 9 Vac-Lawson 30 MCG/0.3ML Intramuscular Suspension [facility] Work Phone: [facility] 250 DO Work Phone: Comment on above: Series: 12-18-2020 Pfizer-BioNT COVID-1 9 Vac-Lawson 30 MCG/0.3ML Intramuscular Suspension [facility] Work Phone: [facility] 250 DO Work Phone: Comment on above: Series: Payers Date Payer Category Payer Medicare [id number] 2021 Self-pay 2021 Unknown [id number] 2.1 [id number] 2017 Unknown [id number] 1959 Medicaid [id number] 2. [id number] 1959 Medicare [id number] 1955 Unknown [id number] 2.16.84 0.1.950865.3.579.2.593 1955 Unknown [id number] 2.16.84 0.1.245197.3.579.2.593 1955 Unknown [id number] 2.16.84 0.1.567933.3.579.2.593 1955 Unknown [id number] 2.16.84 0.1.758974.3.579.2.593 1955 Unknown [id number] 2.16.84 0.1.865611.3.579.2.593 1955 Unknown [id number] 2.16.84 0.1.896987.3.579.2.593 1955 Unknown [id number] 2.16.84 0.1.973227.3.579.2.593 1955 Unknown [id number] 2.16.84 0.1.373422.3.579.2.593 1955 Unknown [id number] 2.16. 840.1.953908.3.579.2.356 1955 Unknown [id number] 2.16. 840.1.483452.3.579.2.356 1955 Unknown [id number] 2.16. 840.1.302293.3.579.2.356 1955 Unknown [id number] 2.16.8 40.1.510993.3.579.2.727 1955 Unknown [id number] 2.16.8 40.1.752805.3.579.2.727 1955 Unknown [id number] 2.16.8 40.1.241462.3.579.2.727 1955 Unknown [id number] 2.16.8 40.1.009963.3.579.2.727 1955 Unknown [id number] 2.16.8 40.1.487182.3.579.2.727 1955 Unknown [id number] 2.16.8 40.1.149976.3.579.2.727 1955 Unknown [id number] 2.16.8 40.1.817980.3.579.2.727 1955 Unknown [id number] 2.16.8 40.1.441134.3.579.2.727 1955 Unknown [id number] 2.16.8 40.1.043971.3.579.2.718 1955 Unknown [id number] 2.16.8 40.1.239640.3.579.2.718 1955 Unknown [id number] 2.16.8 40.1.007915.3.579.2.718 1955 Unknown [id number] 2.16.8 40.1.605988.3.579.2.718 Unknown Unknown [id number] 2.16.8 40.1.478517.3.579.2.531 Social History Date Type Detail Facility Former smoker Former smoker [facility] Other Comment on above: quit as a teen; 1 daily; pop 1 daily; Sex Assigned At Sex Assigned At Bir [facility] Other History and physical note 06-25-2023 Note Date & Type Note Facility 06-25-2023 Note [id number] #1.00TIFF [facility] Medication management note 06-08-2023 Note Date & Type Note Facility 06-08-2023 Note Entered by ADRIANO MADDOX DO on June 08, 2023 07:47:25 EST From: JOE MADDOX DO To: [facility]/pharmacy #[id number] Sent: 06/08/2023 07:47:25 EST Subject: Medication Management Submitted: Complete:traZODone (traZODone 50 mg oral tablet) Signed by JOE MADDOX DO 06/08/2023 07:47:00 EST Approved with modifications: traZODone (TRAZODONE 50 MG TABLET) TAKE 1 TABLET BY MOUTH EVERYDAY AT BEDTIME Qty: 90 tab(s) Days Supply: 90 Refills: 1 Substitutions Allowed Route To Pharmacy - [facility]/pharmacy #[id number] From: [id number] To: JOE MADDOX DO Sent: June 07, 2023 8:05:13 PM [employer] Subject: Medication Management Due: June 08, 2023 12:24:48 AM [employer] On Hold Pending Signature Dispensed Drug: traZODone (traZODone 50 mg oral tablet), TAKE 1 TABLET BY MOUTH EVERYDAY AT BEDTIME Quantity: 90 tab(s) Days Supply: 90 Refills: 0 Substitutions Allowed Notes from Pharmacy: [facility] History and physical note 05-19-2023 Note Date & Type Note Facility 05-19-2023 Note [id number]#1.00TIFF [facility] Clinical Note 12-10-2022 Note Date & Type Note Facility 12-10-2022 Note Procedure: Interlami pennie lumbar epidural steroid injection under fluoroscopic guidance at the L5-S1 interspace Diagnosis: Lumbosacral radiculopathy Solution: 2 mL of lidocaine 2%, 5 mL normal saline, and 1 mL of Kenalog 40 mg. 8 mL total. Contrast: 2 mL Isovue Local anesthetic: 3 mL lidocaine 1% Anesthesia: Local Complications: None Notes: The patient has a greater than 2-month history of severe low back and left leg pain. The patient has had 6 weeks of conservative management with therapy exercises and medications. The patient does not desire spine surgery. The patient is compliant with a home exercise program for this issue. The patient's imaging is notable for severe spinal stenosis at L4-L5. The pain significantly limits the patient's quality of life and function. Specifically he cannot walk at all without severe pain. After informed consent was obtained the patient was brought to the OR and placed in the prone position. The area in question was prepped and draped in sterile fashion. An AP fluoroscopic view of the lumbar spine was obtained and after local anesthetic was administered into the skin a 17-gauge Touhy needle was inserted into the skin and advanced toward the L5-S1 interspace under intermittent fluoroscopic guidance. The epidural space was identified via [id number] to air. Proper needle position was confirmed by AP and lateral fluoroscopy. Contrast was administered under live fluoroscopy in both views and demonstrated appropriate epidural and nerve root uptake and the absence of any intravascular or intrathecal spread. The local anesthetic steroid solution was injected incrementally. The needle was removed intact. Bleeding was nil. The patient tolerated the procedure well and was transferred to the recovery room in good condition. [facility] Comment on above: Result Comment: Elec tronically Signed By: Ara FARFAN, Ilya\.br\Date and Time Signed: 12/10/22 15:40 EDT History and physical note 12-10-2022 Note Date & Type Note Facility 12-10-2022 Note [id number] #[id number]:127 [facility] Clinical Note 09-06-2022 Note Date & Type Note Facility 09-06-2022 Note HOSPITAL REGULATIONS : All Positive and Important Negative Findings Shall Be Recorded Date of Consultation: 09/04/2022 Attending Physician: Joe Maddox D.O. Consulting Physician: Ilya Bullock M.D. CHIEF COMPLAINT: Low back and leg pain. HISTORY OF PRESENT ILLNESS: This is a 67-year-old male seen for a chief complaint of low back and left leg pain. He rates his symptoms at rest as a 0/10 but with prolonged standing and walking it will get up to a 9/10. He describes it as a sharp sensation that will radiate down the back of the left leg. The pain is severe enough that it causes him to sit. When he does, the symptoms will improve quickly. He states this has been going on for a few years but it has gotten progressively worse. He has tried Tylenol and nonsteroidal anti-inflammatory drugs with limited benefit. He has done physical therapy with only modest benefit. He is on Effient so he is not supposed to use daily nonsteroidal anti-inflammatory drugs and really does not want to use medications with this if he can help it. He would also like to avoid surgery if he can help it and is helpful that a cortisone injection would be an option. He using gabapentin and is up to 300 mg three times a day. He states it seems to have helped the cramping that he was getting in his legs at night but it his walking is still impaired. He is also using tramadol which only helps modestly. His past medical, social, family history along with medications and allergies is available and was reviewed. REVIEW OF SYSTEMS: Review of systems is done on ten systems. PHYSICAL EXAMINATION: General: He is a pleasant white male. Vital signs including blood pressure, heart rate and respirations are stable. Head: Head is normocephalic and external ears are normal. Neck: Neck is supple with no lesions. Cardiovascular: No signs of poor perfusion, no peripheral edema. Respiratory: Breathing is unlabored. There is no wheezing present. Abdomen: Abdomen is soft, nondistended. Back: There is some slight left-sided lumbar paraspinal tenderness. Musculoskeletal: Strength is 5/5. Muscle tone is normal. Neurologic: Sensation is intact throughout. His reflexes are diminished but symmetric. Psychiatric: Affect is appropriate. He is alert and oriented. ASSESSMENT: This is a 67-year-old male seen for a chief complaint of left-sided low back and leg pain. His signs and symptoms are consistent with lumbosacral radiculopathy, lumbar stenosis with neurogenic claudication and lumbosacral spondylosis. I reviewed his x-ray and MRI which were mostly notable for severe central stenosis at L4-L5 which correlates very well with his symptoms. I also reviewed an [place] Automated Rx Report on him which appeared appropriate. His ANABELL was 29. PLAN: I addressed options with him and since he has failed conservative management with therapy and medications and has had this severe low back and leg pain for over a year, he would be an appropriate candidate for an L5-S1 epidural steroid injection. I went over the pros and cons of this with him and he was in agreement to proceed. 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 He had stents placed nine months ago so they might want him to wait for another couple of months. We will check and see and go from there. I will have him followup four weeks after the procedure for a repeat evaluation. Over 45 minutes was spent caring for the patient in total. Ilya Bullock M.D. Dictated: 09/04/2022 [id number] Transcribed: 09/05/2022 cc:Joe Maddox D.O. [facility] Comment on above: Result Comment: Elec tronically Signed By: Ara FARFAN, Ilya\.br\Date and Time Signed: 09/06/22 20:14 EST Clinical Note 04-02-2022 Note Date & Type Note Facility 04-02-2022 Note PROCEDURE: XR HIP LT 2 3V WO PELVIS HISTORY: Pain of left hip joint for 3 months COMPARISON: None. FINDINGS: BONES:Total left hip replacement without evidence of hardware fracture or loosening. No bone fracture dislocation. SOFT TISSUES:No visible soft tissue swelling. EFFUSION:None visible. OTHER: Negative. IMPRESSION: 1. Left hip replacement. No acute or suspicious findings to account for patient's symptoms. Electronically authenticated by: JEAN-PAUL SALAS Date: 2022-04-02 15:09 [facility] Evaluation note 08-08-2021 Note Date & Type Note Facility 08-08-2021 Evaluation note Encounter Date Diagnosis Assessment Notes Jul, COVID (ICD-10 - U07.1) Covid test pos in office today. Pt is to use inhaler as prescribed prn for cough and wheeze. Supportive care as directed. Push fluids and rest. Pt is to take otc antipyretic prn for fever and aches. Pt is to take otc cough suppressant prn for cough. They are to follow the recommended stay at home quarantine rules for 10 days from onset of sx and they are to avoid contact with others in the home. Pt is to be re-evaluated after tx if sx worsen or don't improve by pcp or UC. Discussed at length sx of resp distress that would indicate need for immediate ER tx. Sx include but not limited to worsening SOB, wheeze, dyspnea, difficulty swallowing or breathing, and chest pain. Go straight to ER for any of these sx. Pt is to call the office with any questions or concerns regarding dx and tx. Information sheet with test results, general info on covid virus, and info sheet about treatment at home and quarantine guidelines was provided to pt in office today. Pt was referred to PCP for chronic management. Pt understood and agreed to tx plan. Jul, Influenza B (ICD-10 - J10.1) Discussed viral vs bacterial etiology with pt and how her sx are viral at this time. Therefore, no abx is indicated for tx. Pt to take meds as directed. Supportive care as discussed. Push fluids and rest. Pt denied school or work note today. Pt is to take otc antipyretic prn for fever and aches. Pt is to take otc cough suppressant prn for cough. Pt is to be re-evaluated after tx if sx worsen or don''t improve by pcp. Pt is to call the office with any questions or concerns regarding dx and tx. Pt understood and agreed to tx plan. Jul, Contact with and (suspected) exposure to other viral communicable diseases (ICD-10 - Z20.828) covid and flu test both POS, see above. Jul, Other Additional time spent conducting pre-visit phone call, screening for symptoms, instructions on social distancing, application and removal of PPE, and cleaning of examination room, equipment and supplies was preformed. Patient education given for testing methodology and results. Patient care instructions given in writting by [facility] Care At Home document. [facility] Other History general Narrative - Reported Note Date & Type Note Facility History general Narrative - Reported Type Medical History restless leg syndrome Medical History hypertension Medical History Arthritis Surgical History appendectomy Surgical History colonoscopy Surgical History wisdom teeth extract Surgical History hip replacement Surgical History right shoulder arthritis remova l Surgical History carpal tunnel [facility] Other History of Present illness Narrative Note Date & Type Note Facility History of Present illness Narrative The patient states he has been generally doing well since the last visit. Comorbid Illnesses: hypertension and hyperlipidemia.Symptoms: denies chest pain at rest, resolved exertional chest pain, denies dyspnea, improved fatigue, improved exercise intolerance, denies palpitations, denies edema, denies orthopnea, denies dizziness and denies orthostatic dizziness.Associated symptoms: no syncope.His symptoms do not limit his activities.Disease Monitoring: The patient has had a stable weight.Medications: the patient is adherent with his medication regimen. He denies medication side effects. [facility] 250 DO Work Phone: Chief Complaint Feeling great * BARRY GALDAMEZ is being seen for a 3 month follow-up of. * 66-year-old gentleman who returns for follow-up and is doing well other complaints of profound fatigue. He is otherwise ambulatory, working doing routine activities without distress or problems. He has no angina or recurrent hospitalizations. In November of this year he sustained non-ST elevation GA with subsequent revascularization of the LAD and second diagonal branch x2 drug- eluting stents with . He remains on appropriate guideline directed medical therapies as reviewed with no bleeding orrecurrent thromboembolic or coronary events * Recommendations, we reviewed his angiograms and reports, nurse practitioner follow-up, medications he has performed cardiac rehab already and I have addressed his chief complaint. * Recommendations we will try traded his metoprolol down to 25 mg daily follow- up in 6 months * BARRY GALDAMEZ is being seen for a 3 month follow-up of. * 66-year-old gentleman who returns for follow-up and is doing well other complaints of profound fatigue. He is otherwise ambulatory, working doing routine activities without distress or problems. He has no angina or recurrent hospitalizations. In November of this year he sustained non-ST elevation GA with subsequent revascularization of the LAD and second diagonal branch x2 drug- eluting stents with . He remains on appropriate guideline directed medical therapies as reviewed with no bleeding orrecurrent thromboembolic or coronary events * Recommendations, we reviewed his angiograms and reports, nurse practitioner follow-up, medications he has performed cardiac rehab already and I have addressed his chief complaint. * Recommendations we will try traded his metoprolol down to 25 mg daily follow- up in 6 months * BARRY GALDAMEZ is being seen for a 6 month follow-up of. * 67-year-old gentleman here for preoperative risk assessment and clearance prior to back injections to be performed by Dr. Bullock. Patient is doing well from a cardiovascular standpoint he had 1 episode of angina several months ago and none since that time. He is otherwise been doing his job, walking daily (relatively sedentary) limited by back discomfort but with no recurrent angina, he has had no hospitalizations, he denies shortness of breath * He has a history of non-STEMI with PCI's of the LAD diagonal bifurcation with Dr. Elieser Núñez in November 2021 with preserved left ventricular function. He has underlying comorbidities to include hyperlipidemia, hypertension and obesity. * Today's ECG reveals sinus rhythm with right bundle branch block, unchanged from November 2021. Lab work from the past year reviewed. * He is a non-smoker nondiabetic * He is slightly hypertensive today, we will therefore escalate his valsartan 160 mg daily, his spinal injections are exceedingly low risk; he can proceed after completion of 1 year of DAPT which will be November 2022 at which point we can discontinue Effient altogether, proceed 7 days after discontinuation and then continue with single agent aspirin only we will follow-up otherwise in 1 year * BARRY GALDAMEZ is being seen for a 6 month follow-up of. * 67-year-old gentleman here for preoperative risk assessment and clearance prior to back injections to be performed by Dr. Bullock. Patient is doing well from a cardiovascular standpoint he had 1 episode of angina several months ago and none since that time. He is otherwise been doing his job, walking daily (relatively sedentary) limited by back discomfort but with no recurrent angina, he has had no hospitalizations, he denies shortness of breath * He has a history of non-STEMI with PCI's of the LAD diagonal bifurcation with Dr. Elieser Núñez in November 2021 with preserved left ventricular function. He has underlying comorbidities to include hyperlipidemia, hypertension and obesity. * Today's ECG reveals sinus rhythm with right bundle branch block, unchanged from November 2021. Lab work from the past year reviewed. * He is a non-smoker nondiabetic * He is slightly hypertensive today, we will therefore escalate his valsartan 160 mg daily, his spinal injections are exceedingly low risk; he can proceed after completion of 1 year of DAPT which will be November 2022 at which point we can discontinue Effient altogether, proceed 7 days after discontinuation and then continue with single agent aspirin only we will follow-up otherwise in 1 year * BARRY GALDAMEZ is being seen for a 6 month follow-up of. * Patient is a 67-year-old gentleman returns for follow-up. He has had 2 episodes of angina last of which was 6 weeks ago, relieved with sublingual nitroglycerin, none since. He is performing all his daily activities and ambulatory activities without any discomfort at this time. In November 2021 he underwent non-ST elevation GA with primary revascularization of the LAD diagonal branch performed by Dr. Elieser Landers, utilizing a 2.5 x 34 mm [place] stent to the distal LAD, 2.75 x 18 mm Paco stent in the mid LAD, and a 2.25 x 18 mm [place] stent to the diagonal branch at the bifurcation. Left ventricular function was completely normal other than apical hypokinesis at the time of the event. * He is discontinued his dual antiplatelet therapy as of this past year after satisfying greater than1 years worth of DAPT, he is hypertensive today. * He has underlying hypertension, obesity and hyperlipidemia * He is on no antiplatelet therapy at this time due to history of GI bleeding which had resolved after discontinuation of aspirin. * Recommendations: Reinitiate clopidogrel 75 daily Thursday through Thursday for continued antiplatelet protection and therapy, blood pressure check in the next 6 weeks, I will follow-up again in 6 months,Will keep close eye on any recurrent angina, if recurrent then we will proceed with either stress imaging or possibly heart catheterization if necessary * BARRY GALDAMEZ is being seen for a 6 month follow-up of. * Patient is a 67-year-old gentleman returns for follow-up. He has had 2 episodes of angina last of which was 6 weeks ago, relieved with sublingual nitroglycerin, none since. He is performing all his daily activities and ambulatory activities without any discomfort at this time. In November 2021 he underwent non-ST elevation GA with primary revascularization of the LAD diagonal branch performed by Dr. Elieser Landers, utilizing a 2.5 x 34 mm [place] stent to the distal LAD, 2.75 x 18 mm [place] stent in the mid LAD, and a 2.25 x 18 mm Paco stent to the diagonal branch at the bifurcation. Left ventricular function was completely normal other than apical hypokinesis at the time of the event. * He is discontinued his dual antiplatelet therapy as of this past year after satisfying greater than1 years worth of DAPT, he is hypertensive today. * He has underlying hypertension, obesity and hyperlipidemia * He is on no antiplatelet therapy at this time due to history of GI bleeding which had resolved after discontinuation of aspirin. * Recommendations: Reinitiate clopidogrel 75 daily Thursday through Thursday for continued antiplatelet protection and therapy, blood pressure check in the next 6 weeks, I will follow-up again in 6 months,Will keep close eye on any recurrent angina, if recurrent then we will proceed with either stress imaging or possibly heart catheterization if necessary Family History No Family History Records FoundUnknown Family Member Name Dates Details Family history of hypertensi on: Mother, Father(V17.49, Z82.49) Status:Active Family history of congestive heart failure: Mother(V17.49, Z82.49) Status:Active Unknown Family Member Name Dates Details Family history of hypertensi on: Mother, Father(V17.49, Z82.49) Status:Active Family history of congestive heart failure: Mother(V17.49, Z82.49) Status:Active Unknown Family Member Name Dates Details Family history of hypertensi on: Mother, Father(V17.49, Z82.49) Status:Active Family history of congestive heart failure: Mother(V17.49, Z82.49) Status:Active Unknown Family Member Name Dates Details Family history of hypertensi on: Mother, Father(V17.49, Z82.49) Status:Active Family history of congestive heart failure: Mother(V17.49, Z82.49) Status:Active Unknown Family Member Name Dates Details Family history of hypertensi on: Mother, Father(V17.49, Z82.49) Status:Active Family history of congestive heart failure: Mother(V17.49, Z82.49) Status:Active Unknown Family Member Name Dates Details Family history of hypertensi on: Mother, Father(V17.49, Z82.49) Status:Active Family history of congestive heart failure: Mother(V17.49, Z82.49) Status:Active Summary Purpose Advance Directives No Advanced Directives Records FoundNo Advanced Directives Records FoundNo Advanced Directives Records FoundNo Advanced Directives Records FoundNo Advanced Directives Records FoundNo Advanced Directives Records Found Additional Source Comments REASON FOR VISIT (unrecogniz ed section and content) #22 RED LAYNE ESCAPE, COUGH, CONGESTION, FEVER, B/A (unrecognized sect ion and content) No Status Records FoundNo Status Records FoundNo Status Records FoundNo Status Records FoundNo Status Records FoundNo Status Records Found INFORMATION SOURCE (unrecogn ized section and content) DATE CREATED AUTHOR 06/19/2022 Glenn wright DATE CREATED AUTHOR AUTHOR'S ORGANIZ ATION 08/23/2022 [facility] DATE CREATED AUTHOR AUTHOR'S ORGANIZ ATION 03/27/2023 [facility] DATE CREATED AUTHOR AUTHOR'S ORGANIZ ATION 03/27/2023 [employer] DATE CREATED AUTHOR AUTHOR'S ORGANIZ ATION 06/27/2023 [facility] DATE CREATED AUTHOR AUTHOR'S ORGANIZ ATION 08/24/2023 [facility] FOR RECORDS PERTAINING TO PATIENTS WHO ARE OR HAVE BEEN ENROLLED IN A CHEMICAL DEPENDENCY/SUBSTANCEABUSE PROGRAM, SOME INFORMATION MAY BE OMITTED. This clinical summary was aggregated from multiple sources. Caution should be exercised in using it in the provision of clinical care. This summary normalizes information from multiple sources, and as a consequence, information in this document may materially change the coding, format and clinical context of patient data. In addition, data may be omitted in some cases. CLINICAL DECISIONS SHOULD BE BASED ON THE PRIMARY CLINICAL RECORDS. [employer] provides no warranty or guarantee of the accuracy or completeness of information in this document.
[2023-08-29 10:11] LABS: Testosterone 196 ng/dL (264-916)
== END 2023-08-28 09:04 | disposition home or self-care (01) ==
LOC: LAB 09:04
PROVIDERS: PCP Family Medicine; Visit Provider Family Medicine
DX: N52.9 Male erectile dysfunction, unspecified (principal)
CPT/HCPCS: 36415; 84403

== ENCOUNTER 2023-09-22 16:07 | Emergency (ER) | payer MEDICARE, MEDICAID, SELFPAY ==
--- OUTSIDE RECORDS SUMMARY | 2023-09-22 16:26 | XMS_ITS | CCD ---
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, DR WEATHERS Attending Unavailable DEXTER, DR KIRAN Primary Care Unavailable [place], DR NATACHA Campoverde Consulting Unavailable [facility], DR WEATHERS Consulting Unavailable DEXTER, DR KIRAN Admitting Unavailable DEXTER, DR KIRAN Attending Unavailable DEXTER, DR KIRAN Referring Unavailable [facility] Primary Care Unavaila ble DEXTER, DR KIRAN Consulting Unavailable DEXTER, DR KIRAN Admitting Unavailable HOUSE, DR KIRAN Attending Unavailable DEXTER, DR KIRAN Primary Care Unavailable DEXTER, DR KIRAN Consulting Unavailable MARITZA, DR JEAN-PAUL Mccann Consulting Unavailable DEXTER, DR KIARN Admitting Unavailable HOUSE, DR KIRAN Attending Unavailable DEXTER, DR KIRAN Primary Care Unavailable DEXTER, DR KIRAN Consulting Unavailable ZIHARPREET, DR JEAN-PAUL Mccann Consulting Unavailable JOHNNY, EMANUEL Admitting Unavailable JOHNNY, EMANUEL Attending Unavailable JONNY, DR ADDY Davis Consulting Unavailabl e DEXTER, DR KIRAN Primary Care Unavailable JOHNNY, EMANUEL Consulting Unavailable DEXTER, DR KIRAN Primary Care Unavailable JAYCOB, DR CABEZAS Admitting Unavailable HAY, DR CABEZAS Attending Unavailable HAY, DR CABEZAS Consulting Unavailable RHIANNASANDER CRAIN Consulting Unavailable [facility] Primary Care Unavaila ble PAY, DR KOTHARI Admitting Unavailable PAY, DR KOTHARI Attending Unavailable PAY, DR KOTHARI Consulting Unavailable ANAND, LINDA Consulting Unavailable [facility] Primary Care Unavaila ble MARTÍNEZ, [...] Andrews Referring Unavailable Varsha, Dr. Joe Brown [facility] Care Winifred Fuller, Dr. Addy Cartagena Attending Mounava martinez Fuller, Dr. Addy Cartagena Referring Unava ilable Varsha, Dr. Joe Brown [facility] Unava MD Ilya Mayberry Admitting Unavailable Ilya Bullock Attending Unavailable lIya Bullock Referring Unavailable Ken Acosta Admitting Unavailable [...] sources) Aspirin; Translations: [aspirin] Drug Allergy Other [facility] 250 DO Work Phone: (1 source) gabapentin; Translations: [gabapentin] Drug Allergy [facility] Repository Medications Current Medications Medication Drug Class(es) Dates Sig (Normalized) Sig (Original) [id number] 200 actuat albuterol 0.09 mg/actuat metered dose [...] Refills: 3 Ordered: 09-Dec-2021 Emanuel Pérez Active atorvastatin 80 mg oral tablet (8 [...] sources) Coronary atherosclerosis; Translations: [Coronary atherosclerosis of mash[place] coronary artery] Onset: 12-17-2021 Chronic Diseases of [...] fatigue] Episodic Other aftercare (1 source) 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 Show up: 07/27/2023 12:31:28 EST Subject: Results Follow Up Actions: Call the patient with result(s) Due Date/Time: 07/28/2023 12:30:00 EST Reminder Comments: looks okay. no abnormal rhythms Results: Date Result Type Result Name 07/27/2023 11:35 Radiology CV Holter Monitor 48 Hour - From: Katelin Shultz ([facility] Clinical Pool ([facility])) To: JOE MADDOX DO; Sent: 07/27/2023 16:46:59 [...] you - From: JOE MADDOX DO To: [facility] Clinical [place] ([facility]); Sent: 07/28/2023 07:42:25 EST Show up: 07/28/2023 07:42:00 EST Subject: RE: Results Follow Up time for a cardiology referral LVM notifying patient, referral made Normal [facility] Coding Summaryon 07-28-2023 Coding Summary HTMLBase 64 KdydahwgRNp4kTh+PGhl YWQ+QV6IIOClH58pmDHv qF4cC3BBURmXQwhuNMQV XLeAZaItvoWmDE0muMSd ZXJu IC8+MF8fPUGxOaxizPDw y2Z3hOR7Y17fcg9tWVnv dEX3FHNvPjUdgynrw8px wOr2HMbcKmyvVcAy UCCwtI27EOV0rD36Br30 yUGljHSam0lotYj4OeXm WIGwSZL0rPlgVYuab1Gs WIKwX15cpRJew6G8 IGNvbGxhcHNlOyBlbXB0 zK6zSWaanwfxu6zlxmsi Slm2ey18yBRjb2I3gBW4 O3EgwaT1FJWzsTBb HlxefUVFoC9mosbeq8pl npemJsMkVVOfPDl1BYv9 LBPewFxsWiEgWO98BCW3 VNQbrzRcL5NtZKJr rCmzFyL4g7Z9Ru1NO6EM RlkwR5VHULHLVIcphHM+ UM36dr00O8XkXmrwQta6 TLUrXBA7iQA6fS0z BWQoFVtso4O9iBZ3G6Le vdLuco2zj7emYMQuJNyt A78jkVHsk1E7EEDleJT7 YWPvrXkmFdZnjM20 Oyc+SPSyzBmcx7WtXfwu h8pkn1kbmAd0FsvlDXCo yzKbjUwmBGE0p6GnBq6m MMZplBP5uZU3lR5e DwYrDuF2HKlhG274LuUf cXDdCqxqN87eQ6PvuPY+ MSCoYtc2NNKucCjlSE0e F7KtFAPqxarvvWAj nIlpBY8uGSVsmpyhBGKs hD9mKSYcP8f3EhZpQyO8 QVxhA1TgVHVhkdfhWa04 yE1mBlNiGyK6FIah C8HzvbK1HCQlzBAzGBip ZYX2F43fv2C5VMZmKOZr YVG4dDY2iM6slAtxvonh bGVmdDsgdmVydGlj DUkeVStiK668EOEoyXzz PkNvZGluZyBEYXRlOiAg MDEvMDkvMjAyNDwvdGQ+ NOYmLQP4sAzhOXJn tJSwFJxhRk2kcTiujYae OJ0aVEJcjafaARYilX0v WHFvoCHsdSreFB6bRDJq yuads972PlOaVQG2 XFVjqDSmP8LmyC8dThSk RLPcBBQaM5MdbPGdNVii N235KNhiYsH6XUFenmSg O8OmXQRcbIawSdR9 v4B5Qy7Ju0JslxefG8Nh rYQpIxQhGiawPFg9H3Ok PjwvdHI+EY47KMAdPV09 UFi2HZG3aFpsOBse WAGlY2NsdS3yIgMnACYt ZGRkOyc+PHRhYmxlIHdp ZHRoPScxMDAlJyBzdHls JJ2eQf6qLDNfBRNp bKnhlSWrIjZba4qzGIKy HQpzRP2jiVabJ2IsqGZ0 ENLxl8c7Yh63N92vV1Lb dXA+QASgnXR4cTH1 kG8jViCgCyS3NPtuM564 GkJsdFChEhwix0zry4lc nAp5HvR6CKEnqzYcnPnx JXP3u8FxCu60N29n IHdpZHRoPSIxNSUiIHZh qYtevg9yeS8qAg9+PGNv sFX2lYZ4mR6rVyLuQkY7 TEytJ874VcZwrYQh Dxdzz9eoh3zzhPt1VjCq NEOulcFhsAsgRBL9t6Nl Ie61O7MfoEzhm0ZvBps3 rk11kLDve4D7rDR2 Z6IeREQhwnyvjQYvcQge DV2hILYyaqrcYJLceN1j YYKiI5c6LsUpJrH5MLsr U7XsppH7NYEkuBKa OJRdeDACeK9ilhnic3me opxwJtOlDPHdBQb0ONd3 LWMvcNpsAnRmGNB8HqO8 TBC3xBEvpA2vjDes tbixqR3dHcj+WEM9rZUa bUUSTN2pIkimeZU+PHRk JYJ9oDgsJRroRBKfaY4d UAVtF2k5BnQxFbG4 ASplP1UfcxW3SRNdlDMm AYQzmWLIsN0amdinm9wu uotkWyRtCEIyGMu8MSd4 LWFsaWduOiBsZWZ0 IlH2OPO6xPLnkD1qjAxt hmnbfG3kHvn+QmlydGgg PYG1KFg2S0IoQlp3KCYc rYwnPF4xwMUoLXdq Hy7qzYxypRjtNU0bPYOm kwffk622BkIvi8tvHCDh aGBlMHwpGGJ7Q75su4Y5 LLHqJYKaTBZ1nTU2 mK9ntUmlkfdigCJdnCxo knHiqGucJKoxVQzyH036 JZVtuTxeOsVrGAc2A0Mn Dnl1JKDaqTthZC1g pWIkMPzeCr2ptMhjtKum BW4jHZExzieaw720DlAa h2fvKIGvrPGcEQltKRM5 M74bi5Y5MBWtHWQw BDX0dLN4xD8moAzpbgoe bGVmdDsgdmVydGljYWwt SAjdO989RZUyoYrzQaXr lYp7Q3FdUic0NAFm dBxmVI7bbKVfGIxsIk0n fOjrrWzcRV7kIPZigpzx e478VjJxk9fvYYFdfBBt UQigRON5T37hr6Z4 RCGxSXJaQED3yEY7pN9f bGlnbjogbGVmdDsgdmVy tXwwFWawNVtcG642QHZx cDsnPlBhdGllbnQg CKwfVPm5Q9VzCmtwnRP+ WM11LNNgVG88qPMwdVPq q7whoHd2AhUvUAQpKLE9 kCqoZVhfm4HvQFDr V72lgALnp4S2OJOelGyq uYLyDjXmsYS5yM6mDCin ydgft4zftovnIuljl1vh tf44yY19J18cYFjn ZHRoPSIzMCUiIHZhbGln zb4gjB3aOs6+PGNvbCB3 jJE6dS3zYZXjQgN7WJyl V300VfUygYXuJhgk y4nie9vgrKh3NzQ0UFAm lgJyuGvmVLC3b1LdKi51 E81bIVjeMAIpNNIzMWHf PLMzzCuqdy9tpR1n Ii8+XNNrhRU6uCP3hT0s KyXpWhB4VZmeX020FkVj zLVwRampC65fB4CqbMR+ MXNhVxy2RPExrMxm OA4luOWnLOntUc3hARJ5 HlZeYkSxAUtyR0JlIPNj ucoceqabwRK0DANzLTJj eS91Rg3yqIuiSIPj bHTDiS5dmqvzi0ronpnf PlEkKTYsNTj3IMq7TXRt yJwvZkNkOAL4RrC3PEJ3 nUOofQ0xkHqjrddw vA5eH5KnRLRqtqvpGs46 uR7eTdGfTxB7MKqhSsi+ M4BZOdCBPMGNJQcHCVLE EV05IG63fUFji9P2 qEJ4Z8EfTOVxoxalmjjv lFP0ZVLeDJOghQ11iKPz YUcaEt8ye3E7w614SDTb AGSdgP56Zw3wiCnr TWDbsIGHeI8lyqqhd0ui ljonOxJlOQWqRCw1YNm8 KWOayCsdByIkWPN4ZbM1 JXL5mERijO9myQnx ebhwlD3tTdm+MDEvMzEv XPz4KdqhkNJ+PHRkIHN0 kGlgSGhwIUQkmN7jFCVz I2w1FdJcIvJ5NFrj X2RrJULbrlzcHq80nW2a UyEvLsH9NOprV1FdniJ7 XNFkyKViSZqkWHQ7S90r m1Q8IPUdCLGdCBW2 zKW6yC4fiNkalsgubGOh dDsgdmVydGljYWwtYWxp H046ILZqdNenUtA8MLte JRKbIO17HX32eHMx o9P6qUZ4S9WbHGLzaqit prcerJC3SZIuZFVkvI34 hZDbFEviJe8pk8B1h269 AXJrHMZcmY42Fq2u uBadTODtyQVFkD8ohdap n4zdzhsyTnCtPNYiGBw9 INa8CBGqwXsyUmClLIO0 WvK0OGQ0oWKrwB9q mJmegtnifI1cTmz+TUFM RTwvdGQ+IBGyEIH8mGjt GZvdGOVjsD3cRIZxF9g7 CpWuInQ9KHmjO6Ej ZVQgrmdqMf95wV6vBqZc CkD7VArlL4BywrP6YEJy zFAlBGktYBP2E79zf1W4 OCJuCVXpIXX5fBH4 vE3puOmjlegegUXgkOfn xtLgjXtxVTmaQRlpK882 XWIrgBhxLu28wBOqrQkw juQxiG4mGHCEVTH8 T6LvZaveeRZ+SW51XKVf TB92iUYzsAUxq4zqzXi8 QyUwQYRqZIB0vHfiVBvk o0FdIVRoM53wqXCm n7K7BTUvoXphpLLcZbKo nZA8fG5kLUlsbkoeq7mv hopdXzxlc8aumc63kS97 I31qWVppMXAzQEBf ZTMvPLRtkDxzuy5vvU9s Ii8+VYUoqLZ7oSZ8kM3s JzZwYcP5MYvqT968EmOv xJQwExtzp2hsm4vm zMv5JyWqYOIvoqNrwXtv NWE8j7CkMa83Y82lDBnl ZHRoPSIyMCUiIHZhbGln nb0evW8kUo8+PC9j n8mnqm11iV17uPX+PHRk BHE5yYnwRTzoYZVqdI9t JHheTuZ9TUPrNqLjjN18 jDIbVIwbAw0lgSlg vNkeDS0nXDCzpsxay169 BxMxl3kxAOWqfNAhXQwk VSH9E46rh6B7KWRlTPNo ZTL0sLU9rD6asMmk bjogbGVmdDsgdmVydGlj GIbzIGamU268BVOmaZeq HaDxwPUfO6xljfPWUM7n OjwvdGQ+PHRkIHN0 pOywWClaBTZpcX2lTTYg J2q9FaBbYhN0EQyuT0Ub eqE1VYGtdGCwYDHaxAER wS9qsomzv4dhduev FpSeJKHcSVy0RWb1ZOXh nVrqKmCnLLK4KhE6YFQ5 mNUejK0zoAhbllawdC1s Oyc+RklOOjwvdGQ+ NTSiJOO8aYtwPLuoQZQc jK0dJXYtP3d2MqSmHoS9 ANopC9WjgcO3XMEibORn QDAiyMRSjE9vrreo o0btiwjzWnXpAZJbDKf0 MHa1VNEcaNwcUhTjNWS9 DaI8TMI3fXUxvM9cdZvh plicqQ7hFmn+TVJO OjwvdGQ+JHCcYHU3jIej GYziLFHwpH3rNVHhW9q1 DjSjCiC8BRglU9NjgdB7 IGJvbGQgMTBwdCBU vN7rgknkp7drqnzrUjNs UGHnJUk9EPj7MGJshIts CqUbYYZ5EsW5BKJ1zEHh gB8mvPireyldbA0k Oyc+KHE6KMW1HP99RT26 E0RgPsrxjMPfaDP+PHRh YmxlIHdpZHRoPScxMDAl GpNmbHbrXM1bAx2p ZGV (more content not included)... Normal [facility] Holter Monitoron 07-28-2023 Holter Monitor [id number] #1.00OTGTIFF [facility] CV Holter Monitor 48 Houron 07-21-2023 CV [...] patient's symptoms. Timothy Burnett DO JOB #: [id number] bk Final Dictated by: Timothy Burnett DO Dictated DT/TM: 07/27/23 9:22 Signed (Electronic Signature): Timothy Burnett DO 07/27/23 11:35 a Technologist: [facility] Outside Recordson 06-29-2023 Outside Records [id number] 90#1.00OTGTIFF [facility] Consent for Procedure/Surger yon 06-25-2023 Consent for Procedure/Surgery [id number] #1.00TIFF [facility] Consent for Treatmenton Consent for Treatment [id number] 8#1.00TIFF [facility] Discharge Instructionson Discharge Instructions [id number] #1.00TIFF [facility] IntraOperative Documentson 1 08-26-2022 IntraOperative Documents [id number] #1.00TIFF [facility] Main OR Intraoperative Recor don 06-25-2023 Main OR Intraoperative Record IntraOp Document Type FTPM Summary Primary Physician: Neymar Willingham MD Finalized Date/Time: 06/25/23 13:41:33 Pt. Name: MARIELAAlessandroBARRY/Sex: 1955 Male Med Rec #: [id number] Physician: Neymar Willingham MD Financial #: [id number] Pt. Type: P Room/Bed: / Admit/Disch: 06/25/23 [...] RN, Nancy Role Performed Surgeon - Primary Glued Wood Tester - Primary Scrub - Primary Time In 06/25/23 13:37:00 06/25/23 13:37:00 06/25/23 13:37:00 Time Out 06/25/23 13:42:00 06/25/23 13:42:00 06/25/23 13:42:00 Procedure TRANSFORAMINAL EPIDURAL TRANSFORAMINAL EPIDURAL TRANSFORAMINAL EPIDURAL STEROID INJECTIO(Left) STEROID INJECTIO(Left) STEROID INJECTIO(Left) Comments Last Modified By: Woodrow TREVIZO, Adry Troy RN, Adry Lawrence RN 06/25/23 13:41:29 06/25/23 13:41:29 06/25/23 13:41:29 Entry 4 Case Attendee Kimmy Chaney Role Performed Respiratory Practitioner Time In 06/25/23 13:37:00 Time Out 06/25/23 [...] and tissue Entry 1 Skin Integrity Intact, Esmond, Warm, and Skin Abnormality No Dry Outcomes [...] Adry Arellano (more content not included)... Normal [facility] Main OR Preoperative Recordo n 06-25-2023 Main OR Preoperative Record Holding Area Document Type FTPM Summary Primary Physician: Neymar Willingham MD Finalized Date/Time: 06/25/23 13:18:07 Pt. Name: DENICEBARRYO.B./Sex: 1955 Male Med Rec #: [id number] Physician: Neymar Willingham MD Financial #: [id number] Pt. Type: P Room/Bed: / Admit/Disch: 06/25/23 [...] Jennifer Mendieta RN 06/25/23 13:18 Normal [facility] Operative Reporton Operative Report Patient: BARRY GALDAMEZ [...] EST Respiratory Rate 14 br/min . [facility] Comment on above: Result Comment: Elec tronically Signed By: Tarsha FARFAN, Neymar Zelaya\.br\Date and Time Signed: 06/25/23 13:41 EST Patient Correspondenceon Patient Correspondence [id number] 110 [id number] #1.00TIFF [facility] Insurance Correspondence Off iceon 06-10-2023 Insurance Correspondence Office [id number] #1.00TIFF [facility] Office/Clinic Note-Physician on 06-08-2023 Office/Clinic Note-Physician [id number] 1#1.00TIFF [facility] Consent for Treatmenton 05-20 Consent for Treatment [id number] 11 [id number] 6#1.00TIFF [facility] Consultation Noteon 06-05-20 Consultation Note Patient: BARRY [...] All Problems HTN (hypertension) / SNOMED CT 5373803710 / Confirmed Hip pain, left / SNOMED CT 6247420888 / Confirmed DJD Nocturia / SNOMED CT 066660224 / Confirmed Asthma / SNOMED CT 037624034 / Confirmed Impingement syndrome of right shoulder / SNOMED CT 863203565 / Confirmed Carpal tunnel syndrome of right wrist / SNOMED CT 66223096 / Confirmed Osteoarthritis / SNOMED CT 3529031995 / Confirmed Arthritis / SNOMED CT 9334993 / Confirmed Depression / SNOMED CT 73528811 / Confirmed Hypertension / SNOMED CT 2709389982 / Confirmed Erectile dysfunction / SNOMED CT 0339050916 / Confirmed Asymptomatic microscopic hematuria / SNOMED CT 1642790883 / Confirmed Weak urine stream / SNOMED CT 624151452 / Confirmed Screening PSA (prostate specific antigen) / SNOMED CT 421988132 / Confirmed [facility]: [facility] Problem added when Risk for Falls Careplan [...] hip flexion 5 -/5 Integumentary: Warm, Dry, Esmond. Injection site well-healed Neurologic: Alert, Oriented. Psychiatric: [...] necessary. OARRS reviewed ANABELL score: 38% [facility] Comment on above: Result Comment: Elec tronically Signed By: Romel ARCE, Ariana\.br\Date and Time Signed: 06/05/23 11:22 EST\.br\Electronically Co-Signed By: Neymar Willingham MD\.br\Date and Time Co-Signed: 06/08/23 12:01 EST Office/Clinic Note-Physician on 06-05-2023 Office/Clinic Note-Physician [id number]#1 .00TIFF [facility] Patient Correspondenceon Patient Correspondence [id number] 110 [id number]#1 .00TIFF [facility] Patient Correspondence [id number] 110 [id number]#1 .00TIFF [facility] Patient History Officeon Patient History Office [id number] 110 [id number]#1 .00TIFF [facility] Patient Handouton 05-27-2023 Patient Handout [id number] [facility] 05-26-2023 Outside Records [id number] 9#[facility] Patient [facility] 05-26-2023 Patient Handout [id number] 4[facility] Consent for Procedure/Surger yon 05-19-2023 Consent for Procedure/Surgery [id number] 2#1.00TIFF [facility] Consent for Treatmenton 04-21 Consent for Treatment [id number] 10 [id number] 3#1.00TIFF [facility] Discharge Instructionson Discharge Instructions [id number] 0#1.00TIFF Normal [facility] IntraOperative Documentson IntraOperative Documents [id number] 2#1.00TIFF Normal [facility] Main OR Intraoperative Recor don 05-19-2023 Main OR Intraoperative Record IntraOp Document Type FTPM Summary Primary Physician: Neymar Willingham MD Finalized Date/Time: 05/19/23 14:15:08 Pt. Name: BARRY GALDAMEZ Tomeka Bryant/Sex: 1955 Male Med Rec #: [id number] Physician: Neymar Willingham MD Financial #: [id number] Pt. Type: P Room/Bed: / Admit/Disch: 05/19/23 [...] Iwona Snyder Role Performed Surgeon - Primary Glued Wood Tester - Primary Scrub - Primary Time In 05/19/23 14:09:00 05/19/23 14:09:00 05/19/23 14:09:00 Time Out 05/19/23 14:15:00 05/19/23 14:15:00 05/19/23 14:15:00 Procedure LUMBAR EPIDURAL STEROID LUMBAR EPIDURAL STEROID LUMBAR EPIDURAL STEROID INJECTION(.) INJECTION(.) INJECTION(.) Comments Last Modified By: Woodrow TREVIZO, Adry Troy RN, Adry Lawrence RN 05/19/23 14:14:30 05/19/23 14:14:30 05/19/23 14:14:30 Entry 4 Case Attendee Nakul Montes Role Performed Respiratory Practitioner Time In 05/19/23 14:09:00 Time Out 05/19/23 [...] and tissue Entry 1 Skin Integrity Intact, Esmond, Warm, and Skin Abnormality No Dry Outcomes [...] Troy RN (more content not included)... Normal [facility] Main OR Preoperative Recordo n 05-19-2023 Main OR Preoperative Record Holding Area Document Type FTPM Summary Primary Physician: Neymar Willingham MD Finalized Date/Time: 05/19/23 13:52:06 Pt. Name: BARRY GALDAMEZO.B./Sex: 1955 Male Med Rec #: [id number] Physician: Neymar Willingham MD Financial #: [id number] Pt. Type: P Room/Bed: / Admit/Disch: 05/19/23 [...] By: Jennifer Mendieta RN 05/19/23 13:52 Normal [facility] Operative Reporton 3 Operative Report Patient: BARRY [...] 13:40 EDT Respiratory Rate 14 br/min . [facility] Comment on above: Result Comment: Elec tronically Signed By: Tarsha FARFAN, Neymar Zelaya\.br\Date and Time Signed: 05/19/23 14:14 EDT Patient Correspondenceon Patient Correspondence [id number] #1.00CD:127 [facility] Insurance Correspondence Off iceon 04-13-2023 Insurance Correspondence Office [id number] #1.00CD:127 [facility] Consent for Treatmenton 03-21 Consent for Treatment [id number] 90 [id number] #1.00CD:127 [facility] Consultation Noteon 04-08-20 Consultation Note Patient: BARRY [...] All Problems HTN (hypertension) / SNOMED CT 1414417550 / Confirmed Hip pain, left / SNOMED CT 3906274231 / Confirmed DJD Nocturia / SNOMED CT 322235904 / Confirmed Asthma / SNOMED CT 920369774 / Confirmed Impingement syndrome of right shoulder / SNOMED CT 309087462 / Confirmed Carpal tunnel syndrome of right wrist / SNOMED CT 21813920 / Confirmed Osteoarthritis / SNOMED CT 5676947818 / Confirmed Arthritis / SNOMED CT 2358494 / Confirmed Depression / SNOMED CT 98484814 / Confirmed Hypertension / SNOMED CT 7644902564 / Confirmed Erectile dysfunction / SNOMED CT 2072680831 / Confirmed Asymptomatic microscopic hematuria / SNOMED CT 7150542921 / Confirmed Weak urine stream / SNOMED CT 778256120 / Confirmed Screening PSA (prostate specific antigen) / SNOMED CT 953576673 / Confirmed Resolved: At risk for falls / SNOMED CT 198064438 Problem added when Risk for Falls Careplan [...] seated straight leg raise. Integumentary: Warm, Dry, Esmond. Neurologic: Alert, Oriented. Psychiatric: Cooperative, Appropriate mood [...] sooner if necessary. ANABELL score: 60% [facility] Comment on above: Result Comment: Elec tronically Signed By: Ariana Urena PA-C\.br\Date and Time Signed: 04/08/23 13:30 EDT\.br\Electronically Co-Signed By: García Castro DO\.br\Date and Time Co-Signed: 04/14/23 11:06 EDT Office/Clinic Note-Physician on 04-08-2023 Office/Clinic Note-Physician [id number] #1.00CD:127 Normal [facility] Patient Correspondenceon Patient Correspondence [id number] [id number] #1.00CD:127 Normal [facility] Patient Correspondence [id number] [id number] #1.00CD:127 Normal [facility] Patient History Officeon Patient History Office [id number] 090 [id number] #1.00CD:127 [facility] Office Visit (Cardiology)on 03-26-2023 Follow-up visit Diagnoses/Problems Assessed Coronary artery disease involving [place] coronary artery of [place] heart without angina pectoris (414.01) (I25.10) Hypertension, [...] Authorization; Done: 26Mar2023 Coronary artery disease involving [place] coronary artery of [place] heart without angina pectoris Start: Clopidogrel Bisulfate [...] In November 2021 he underwent non-ST elevation SC with primary revascularization of the LAD diagonal branch performed by Dr. Elieser Landers, utilizing a 2.5 x 34 mm [place] stent to the distal LAD, 2.75 x 18 mm [place] stent in the mid LAD, and a [...] Recorded: 26Mar2023 11:21AM Heart Rate64, R Radial Uctgfcpm356, LUE, Sitting Nunujumrt97, LUE, Sitting Height6 ft Iauwdq697 lb BMI Qbfkofmhbc68.99 kg/m2 BSA Calculated2.37 Tobacco Useb) No PHQ-2 #1. Over the last 2 weeks have you felt down, depressed or hopeless? (If yes, answer PHQ-9 below)No PHQ-2 #2. Over the last 2 weeks have you felt little intere (more content not included)... Normal [employer] Tobacco Screening.on 023 Adult depression screening assessment No [facility] [employer] 250 DO Work Phone: Fall risk assessment a) No falls within the last year [facility] [employer] 250 DO Work Phone: Tobacco use status [facility] b) No [facility] [employer] 250 DO Work Phone: Consent for Treatmenton 12-19 Consent for Treatment [id number] #1.00CD:127 Normal [facility] Consultation Noteon 01-10-20 Consultation Note Patient: BARRY GALDAMEZ [facility]: [id number] Age: 67 years Sex: Male : 1955 [...] All Problems HTN (hypertension) / SNOMED CT 8957579501 / Confirmed Hip pain, left / SNOMED CT 5313326357 / Confirmed DJD Nocturia / SNOMED CT 870059785 / Confirmed Asthma / SNOMED CT 846547225 / Confirmed Impingement syndrome of right shoulder / SNOMED CT 888314328 / Confirmed Carpal tunnel syndrome of right wrist / SNOMED CT 26989983 / Confirmed Osteoarthritis / SNOMED CT 8631469818 / Confirmed Arthritis / SNOMED CT 6992714 / Confirmed Depression / SNOMED CT 66143742 / Confirmed Hypertension / SNOMED CT 9176074576 / Confirmed Erectile dysfunction / SNOMED CT 5752297367 / Confirmed Asymptomatic microscopic hematuria / SNOMED CT 9022471005 / Confirmed Weak urine stream / SNOMED CT 027979553 / Confirmed Screening PSA (prostate specific antigen) / SNOMED CT 701127587 / Confirmed Resolved: At risk for falls / SNOMED CT 496569862 Problem added when Risk for Falls [employer] [...] of motion. Normal strength. Integumentary: Warm, Dry, [place]. Injection site well-healed Neurologic: Alert, Oriented. Psychiatric: [...] follow-up as needed. ANABELL score: 6% Normal [facility] Comment on above: Result Comment: Elec tronically Signed By: Ariana Urena PA-C\.br\Date and Time Signed: 01/09/23 13:29 EDT\.br\Electronically Co-Signed By: Ilya Bullock MD\.br\Date and Time Co-Signed: 01/14/23 11:33 EDT Office/Clinic Note-Physician on 01-09-2023 Office/Clinic Note-Physician [id number] 19#1.00CD:127 [facility] Patient Correspondenceon Patient Correspondence [id number] 230 [id number] 23#1.00CD:127 [facility] Patient Correspondence [id number] 230 [id number] 35#1.00CD:127 [facility] Patient History Officeon Patient History Office [id number] 230 [id number] 76#1.00CD:127 [facility] Consent for Procedure/Surger yon 12-10-2022 Consent for Procedure/Surgery [id number] #1.00CD:127 [facility] Consent for Treatmenton 11-18 Consent for Treatment [id number] 05 [id number] #1.00CD:127 [facility] Discharge Instructionson Discharge Instructions [id number] #1.00CD:127 [facility] IntraOperative Documentson 0 12-10-2022 IntraOperative Documents [id number] #1.00CD:127 [facility] Main OR Intraoperative Recor don 12-10-2022 Main OR Intraoperative Record IntraOp Document Type FTPM Summary Primary Physician: Ilya Bullock MD Finalized Date/Time: 12/10/22 14:35:07 Pt. Name: BARRY GALDAMEZ/Sex: 1955 Male Med Rec #: [id number] Physician: Ilya Bullock MD Financial #: [id number] Pt. Type: P Room/Bed: / Admit/Disch: 12/10/22 [...] Kendra Barnes Role Performed Surgeon - Primary Glued Wood Tester - Primary Scrub - Primary Time In 12/10/22 14:27:00 12/10/22 14:27:00 12/10/22 14:27:00 Time Out 12/10/22 14:35:00 12/10/22 14:35:00 12/10/22 14:35:00 Procedure LUMBAR EPIDURAL STEROID LUMBAR EPIDURAL STEROID LUMBAR EPIDURAL STEROID INJECTION(.) INJECTION(.) INJECTION(.) Comments Last Modified By: Annabelle TREVIZO, Iwona Alanis RN, Iwona Rodriguez RN 12/10/22 14:34:40 12/10/22 14:34:40 12/10/22 14:34:40 Entry 4 Case Attendee José BILLY(Ginny Cuevas Role Performed Respiratory Practitioner Time In 12/10/22 14:27:00 Time Out 12/10/22 [...] and tissue Entry 1 Skin Integrity Intact, Esm[place], Warm, and Skin Abnormality No Dry Outcomes [...] Met? Yes (more content not included)... Normal [facility] Main OR Preoperative Recordo n 12-10-2022 Main OR Preoperative Record Holding Area Document Type FTPM Summary Primary Physician: Ilya Bullock MD Finalized Date/Time: 12/10/22 13:34:32 Pt. Name: BARRY GALDAMEZ Tomeka Madden/Sex: 1955 Male Med Rec #: [id number] Physician: Ilya Bullock MD Financial #: [id number] Pt. Type: P Room/Bed: / Admit/Disch: 12/10/22 [...] 13:34 Jennifer Mendieta RN 12/10/22 13:34 Normal [facility] Patient Correspondenceon Patient Correspondence [id number] 7#1.00CD:127 Normal [facility] Office Visit (Cardiology)on 10-29-2022 Follow-up visit Diagnoses/Problems [...] steady gait. Last evaluated in clinic Dr. Fulelr September 2022. At that time, dose of [...] Recorded: 29Oct2022 01:07PM Heart Rate66, R Radial Wvqyllzs575, RUE, Sitting Qykzlcyqk98, RUE, Sitting Height6 ft Iubdxy999 lb BMI Tquttdpqic73.72 kg/m2 BSA Calculated2.37 Tobacco Useb) No Falls [...] affect . (more content not included)... 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 Normal [employer] Tobacco Screening.on 023 Adult depression screening assessment No [facility] 250 DO Work Phone: Fall risk assessment a) No falls within the last year [facility] 250 DO Work Phone: Tobacco use status CPHS b) No [facility] 250 DO Work Phone: Insurance Correspondence Off ice09-09-2022 Insurance Correspondence Office [id number] 5#1.00CD:127 Normal [facility] Coding Summary.on 09-08-2022 Coding Summary. CD:[id number] Gh0bWw+PGhlYWQ+PE1FV QDoA67fhTAdwU5ZY3zOK W2ISEFWEXECVT1RTK2ki EU8ODxlZ8ZjkgBa GeihzUQbMA47NAj0AVL3 rZzmZMzwzL3ldLGmC2u1 IwOiDY49tA77IYeeDEQk UmC6RmQzbwzsiHPg O3siLkOdnMErCpc+PHRh YmxlIHdpZHRoPScxMDAl CpOygHnzPZ6lLf8kHZXz LWNvbGxhcHNlOiBj x3owZOBxCOcvCV0ptVrr I3IyiUN7QLBzt0h5Dx30 dHI+BQGiEHF0fHhqUBkv g655YrJrl7byXDX3 hUPsTDvqUBT8E32ra3K9 NCDbQXHbZDJ5vZG5iT0w aTwcqqppU0GtxNYlKrQ7 ISM3kGIetF8xwTna ucqzkN6rGxe+P23FAB7L MQISVD5VKml2E7SaFrnl dHI+XU43XBOgZJ88mNDc cPCjy4rcnUm8JcYk ICKiANM0rBtmFOgjb9Mz QNLzT28jnIIpi8O4ZPCn pSjfzQXaScSrcOL8pJ9b BSsmxqhcm0mzozch Lnbre2dqmw62aX03Y76x RRnqEBDpPDZ4ZXMuAPSe rPgyzl6dyF1sNd1+IDxj i8oai6vbaWd3OwTs BJCwmbGbaNuoMUN5v3Bb Nu28H8ZxrBush6DsWzm5 dt30aOPwn4Y1gZT6TDja YVCkzV2tRDdyNmR0 LOZvSuGpoR10fQXmHBht Vb6xqYfzpHdrLJ4dOVBu pnweFNQzrR5kLDIazTRq rKilRP6eEYCjubxp u418CvSoAEE9HHKpjXXe B8ZpvA2yJiIqFKTmWTBq H1IfgYVnADtkI472SVgf JjS9YHYxsaNaX9Oj GNVpwXleXcE6u6Q8Uo7A m1BnbkpwHEB5MQujKNKv WxLmUoXnDgF3W7AwQmn8 YXGhqAprKF4kF0Yt FWXcoqcmnjjomVT1XQQh NRPbiV15xSLxIGvgLi1l q4L1f218KIAbYQHegG63 Rg5cfWckXSThtIEW aJ8xyloxe2sekzcbMhQj UHPsNBe3JQm3YJOtvHle HrEoMYD1PcN6SXD0lEWh dE0pgNrwblaviH4a Oyc+T86zjH5wXMY0CJZ0 gerwDVOgmtEcJQ65MR02 L7JwUqsvwVFraCV+PGRp zaCpmFncJO1dAeOf m1hst6TqBCxjF4KwGCKn CBurLmk6VYMrAKC1mQD1 hP6sAHKxRZtyy9S0aNC6 P7HrkdCkkv8du7ke CUGqZKvlI97ggYHvg7C4 BMLiaMN4EKHqpNokQsDh pC62Bim+OEMzcVjlt9Ej Wzjec9zee3etdHh4 IjMwJSIgdmFsaWduPSJ0 d6OsKo40J72oESqtNISe IQJeRKToOAJrzPuitz6s gW1iPf3+PGNvbCB3 eIN5lK9kOPGoAiQ8WJax V981XiFxxJUoPusdz7vg g9axeQw6HfKnLIQrvnAs oHcxDIT0o2PvNa70 C25rIFfrMJXmWIHtTJRo BRHkeQponx3lfM9dSn2+ XQ2mz3eoms79vM93hCD+ OKPaRNN6nJnxVVau NRQoqU6bIGjmEmE7BBDf HkKcwE19aWRgYVhbCy6p iFodkVsaRE7oGTWxpplc l122XyTjk8xqXJId aOHgYQgdFEZ3P51qo8F7 POZbNZQrWET1wNC1lL7x bGlnbjogbGVmdDsgdmVy jHpqTMiaEQovR741 IHRvcDsnPlBhdGllbnQg CyDwUNt0X7ToOjy3KWXt uCbxCM6buNHkDVflCq7j xZncxKooJK6eBDCe zaggd105UcRjd1jxBRZh ySUgMEkoWAN2P40wm2B5 GIOzZMMtTMH8bYQ4oY2q bGlnbjogbGVmdDsg iyGpmZezGVsxGBddY315 IHRvcDsnPkJpcnRoIERh lMO3SX04NM81vGWra1F8 xOJ9D6KkNGDqtmeg xefxpMS6VKXrZKSqmN75 Tc6lyDrjHt6fTHJhQWK5 RPArkOPzR7TkuR8nJnGm AEGlNCBhK0LpkPOq RGctI079RJxhNmC6GJLb uuYfK2MxDDPjuKjvBlN2 m0B4Fs1FH3L9AV60SM45 rFJht1K7aHT7V7Nv XSEhakbmwukniOY5FAAy QHJchY04Ij0iqFkxKs2w ORSaXTG6LEKmrTCgB7Cd rV7wYsWsUONmBFRf Q0NfaDFeZOvuT643YMfd EvR7RFQqtrXdE0VdGWHz pKhiKvI8k1A3Cd4OYXo8 VV72RU55dGMhs6C7 hEI0N4ZeBDApxaujmeoh nON1ETReQFAcbI82Tf1x bXqzWu9wYSSyMLQ7GLOs nNGeZ4FgqX1lOcSz WYRmMYOoW7ZqkHIfFGin T325GNebLeH8YKPxbmVx D1FjJLQqwYbfZrH2w7D4 Oi5RFQDxXH49HCH7 nOW9LL08IH10D0MeOekl dGFibGU+PHRhYmxlIHdp ZHRoPScxMDAlJyBzdHls DH0xKe9hIBYfVLQt uUedsOLrHiIel4rbYKZn RPhjKS1hgPucO3YgdGU9 SBBjw3e1Fu40G81gM6Gf dXA+HHOwkRZ6fNW0 aP0yCgBcBdK4FHhbJ010 DxYkkLOhOrlpj5afl2pg kTc6MaS3XPOkslPxjJob BNG6f2KtAj07C68c IHdpZHRoPSIxNSUiIHZh bKfplj4mfU5lXp9+PGNv zEK9cRG6lM6cAyImHhV2 QVliX529CuJrvGCm Slabk6uuj8qapDy0SmCm VMKxeqTitVhpQYJ1j6Kz Xj43B6EqgLnff4VmOtg8 tf64zXFcm9B5qGF2 Z0GxYRXspbcnsARsjBke YO3gRUAdcuqtWNXcyB9w EBJwI3z4RiWiUuP1HPdy P5HvckV5ADQlbNGd LWymVZQ9I21pd7B9TICz XXYiYYC5fHU4wH8soYqf bjogbGVmdDsgdmVydGlj TWimZWpiW901HSMi nUrzKTCueX3mIXNolSPm mXxpAV7kODGovqieXyDZ NT3JUZguW6HMUnToVEmm dGQ+KGFsJGK4nHou UQnmUEIbdB4sSSAlE0e3 IpSgUeW5VWieW9HlPBAg fexlIu48oJ1nEdSuDdU3 BJtoJ2QikoW2BYAo uNNfOIfpIPY5E23lp9R5 LEUoEZLyLQA2cJE7sG4g bGlnbjogbGVmdDsgdmVy aCyrONoqXBlzR842 IHRvcDsnPjAxLzMxLzE5 KPJ8M2LmWcw6IROsfEsk TD9zbJQmZTcqSm1ibPba cLjjJW3qANDybsig MZPnyV3bFISgtZAjkIjh NG8wSNXdgynrs217UaQi ALP9GWNxyZRwW1KwmV1p VdBqTXFxNKIwW8Nb kQErPCxdE366NXbzObZ1 OLLeoaYgI1EzWHBfeUel YoF1g1V0Eg44YjJTJDNd czwvdGQ+PHRkIHN0 jIruGWyoPKDrsU2kFNYy I6v9NzJmCeE8QHczD7Wt AJZgfwnoUt44bL8oPpDu LnQ4MEacM1PugxJ4 FDQanQLrZMmzJKN7C89e w6K0LFWiUUNkEWE7yEO8 lI1vjHfonngcmNUghLpe dmVydGljYWwtYWxp R279TOOzdVkvQj7ynTO2 A9GqUvf6NBXqkOvfHX7p mZYlIMtcTa8mtAduhIhr ZU9zYSPvewteAQMk oJ7nVRCxuXCnqVguYH9p FKJdnkbam647IpViPVN3 IZKvmQRrL2GptO7tOrSu BUYpMXHiW7UziEUj XEreR000WQopUoS9KNYu hwVtU7GvFEEvzMecUsH3 c2S0Rf0MAMaoOC6cvbWy KY0rpcF0R0CwUjbb dHI+WH64UGAvWP36uYLa iNEcy1dnsPl1WoKyGWUe VYE6iIykQResf9LgCOMz Y67hpLFxf5I3OJZo fZcmiTFvKzSlsQT0bB4h HMdiwlgqy7xjnsdyHgoh o2iiuf70dC83U20gEOxf ZHRoPSIzMCUiIHZh wYhdvs3doC8sGn0+PGNv hLP9cDE9uK2tMbQrEzK6 SYsaR033EsZqqOLqXmqn c3ahk1gmaVk5AfLi FFTjtwMbcKkkZMW1w3Kt Mk94D38kFQnjLPEbJUQd JLHpKUNzsUvqij5axT1l Ii8+HM5vi2giyt20 lG60cBD+MIOqTXQ4fSqi YKjrPUSqkT5qOJbsGsS2 ESNkDrAojQ33jRKsWNpe Ah1ufIudsKjuGP6h NEGuqltex166KbIre7tr LZOtmPVeUGciEVZ1X59t m7A0RDPaEIPlMQZ1kXI4 rM8onPxxvbsfdGYy dDsgdmVydGljYWwtYWxp F861IPWyqHtlOcRusWAa G4zezmPBWG1gMsgaaFM+ OJKqNJN5vFyvSBng OJEqiO2hQSKsE6d6LqKl EwA9EBhiN9QqycZ2WYSa nXByOTMlxEULeM8sqper b1aqihwnXaNuGFXc QZz9DZc3SJAatXsfGmFi SMP0XbU9IEP3lOSxhK9d eBttiguvlW5qHxs+RklO OjwvdGQ+PHRkIHN0 jKokNQplCEVwaI3eLXLj M7a5KfTdWpS0PLvqX5Py ikS0QEIolLGwGFCpvBXO zC8qqbmgb5zeroam SxZuOBYoMHu1PJf8PTYh pKefUeTyEOJ9GaV0UTI1 lJAyyQ4zaUahbndumZ6u Oyc+TVJOOjwvdGQ+ SILkLWE8cUdiGJmeIONt lJ3yNNSdI6j8YdGyQbH6 CAqsB7EkxtG5TKHtwTIi CZCdzEDXsW3fktuk r2wefbpyCzSkSRZgAFi9 DVq4GOYunHziLaTsEEY4 SaC5RZZ7iEGjbU4pwKev wulsaV3kDdx+UGF5 ZBH0JB77DE52J3LgGogo dGFibGU+PHRhYmxlIHdp ZHRoPScxMDAlJyBzdHls VQ7hCv8bOQItHEXv bGxh (more content not included)... Normal [facility] Legal Correspondence Officeo n 09-05-2022 Legal Correspondence Office [id number] #1.00CD:127 Normal [facility] Consent for Treatmenton 08-20 Consent for Treatment [id number] #1.00CD:127 [facility] HIPAA Forms Officeon 023 HIPAA Forms Office [id number] #1.00CD:127 [facility] Legal Correspondence Officeo n 09-04-2022 Legal Correspondence Office [id number] #1.00CD:127 [facility] Office/Clinic Note-Physician on 09-04-2022 Office/Clinic Note-Physician [id number] #1.00CD:127 [facility] Outside Records Officeon Outside Records Office [id number] #1.00CD:127 Normal [facility] Patient Correspondenceon Patient Correspondence [id number] #1.00CD:127 [facility] Patient Correspondence [id number] #1.00CD:127 [facility] Patient Correspondence [id number] #1.00CD:127 [facility] Patient Correspondence [id number] #1.00CD:127 Normal [facility] Patient Correspondence [id number] #1.00CD:127 [facility] Patient History Officeon Patient History Office [id number] 302 [id number] #1.00CD:127 [facility] Coding Summary.on 07-17-2022 Coding Summary. CD:[id number] Gh0bWw+PGhlYWQ+PE1FV NEwF42wuMWwyC3EE9wBE Q5XUZFXRIWCSR1KBR6ku EB8NCjsD9ZzxhMt GdnmfQRsSW57WNq5OHW5 yRjvGVgstF1xtMRrV6j5 WhOtSX82wE48VZqgCWEh XcD8GtVpzssxeVKc Q5ntGfTquKObZbh+PHRh YmxlIHdpZHRoPScxMDAl JjKzrUqpDG7zZg2hMHFq LWNvbGxhcHNlOiBj b0dbAOUmYMosFF2vkKsf L4QvmXZ2JQVtz6m0Cq24 dHI+NVIdSOB3pKikTEct m081HuTqp2lsAIW0 uILpNFcoHFA1T38xu6G4 XCGeJFHwJZU8iOO7aI1u qKylzsfkZ9TpfMAvNfG0 CCA1uXGcfY0woNgd yjbckB0dQco+N42TBE9I LDPUMG3LZlm2K3DrRixi dHI+HI49GJEmWJ53eHQr cYPtu3gciYv3HhLl UNVmJVS6gZruUBbui6Wi AZCpJ45olJBpv4W4ACBb cWkaxOMeJuFzePS4gY2s JVdjnrgky9wljlpm Kftkp5pjyn92oF71E66h IIxmJBDfBOB3RJEeLYHw fVslqh4cgL9uWj3+IDxj o0ncc1nrrNz5NbYb JDKkemIigAalEMO3g9Uh Ca82T5UdfMoij1XjKwr3 jr06sHFlb5J3mYL0DBod REAlkQ6zYFcxPvO3 AJBzSnBzlQ18gCNtSVoc Hr8yeNqqfWcvNS8dSTWh rqyiZLLjgE3hMBCijUIe eIipXP9aYPGnneif a857LuKhMHR9AIMmcYZv Q3YsfI6cZkHoHISoOATp I3OuzFJuUYlsY999LTrm VaW3HQXqolFvR7Xu HVMmhDtiOzB5a3H9Va6G l7KqptbrTML2CCjjGYJd DcL5OjVaXrT4P6JuZlf8 JQLmyQxiOV3rE1Ed QSSkajdbjzwhmRG5RPZf HOLbvP10zWZmTBxuVg7q z4A5y167SZVxSLRqfZ86 Bv3xxHdjAADxyDIJ nW6qaygaa9oskrupPyHf HNZqLOq7OEe1GMKtoYal EwCgTFJ1KzB3IIZ6hFOv yU3wmXzdxsilmT7j Oyc+E13eaT9rGUK1DAE7 fnroUZZhebLqVC10CI30 N5AtDeepzTFarWP+PGRp akKbyMujNJ6rUqOj r2kyj2GbERgjN1GsVGFf NBcjRov3YRZuBOD4qCR8 uZ4cIZEoIXfqb4I6aOG1 A9EajkDvjt7ql9ff RQKhXJujI06tdEWyt6P1 RPFatDM7GYSmrXunCtNm uC48Nsj+XLLzgSkky2Uk Qzais2fhk3ldiHh1 IjMwJSIgdmFsaWduPSJ0 u9KtYq24N10hIXapDEXx DEWfITGtEHYykQlqbb8h lZ7tHf5+PGNvbCB3 rHJ9mF5cNOStQqV5MUnt Z987VtSnaIXoByurn8dv o8gxxWg1LuIoAGWqlvKe yNtwXSO5w6DdZl28 H88eKXtjEFPfNTOkNEXw JKSuuBwyyi4iiO2gYs7+ GH8mn0xytr13sU33hPS+ IOHjRIR3mWoyWMjo PGNmvP0gNJveBtU1IDCo QkQgjX55rOZaOZrpCi7p mGevkVsdAL7oWWAndaym r315XvLzd9okWZLo qUAgYDdcMMQ6C32bq9G5 BOUyOXItYKH0dXW9xN8z bGlnbjogbGVmdDsgdmVy oMapSTeeCHbiL647 IHRvcDsnPlBhdGllbnQg XrNnXCp2G2KcSlp5OQMw xRiqVM5xvFMnXEabEh9e hNaqgUfoFX9hFOUm kudsu782PjGrh9ydOZMj rBYyKVvcXNW6J75jo7S7 BLYwPTJqDAK9yBF8kO5b bGlnbjogbGVmdDsg wsGjgZhsFRmcZZrsM227 IHRvcDsnPkJpcnRoIERh fUO2TU89VU21oSAri7C0 mRX7R2PnNRRvxwej exsojYU2HAXmALRifP83 Oq4mjBzzMz4bAWQmSMV2 TCIylOQxT4OxcC9eCxHa QSUfBSBsL0KcvSLv AWwfT151FMguPiM5MLSv smKvU2RuMMZozIyvKdV0 r6B3Tu2NM1N6HC56WD18 zPWxw7H7zSR6I6Wi HVZupomsvhenlCZ6ZZLm LRQukD01Zo9orQwqPy7z AWBqXAL8VMQvcECvR2Bp iO5rYfNcFKKnUYZk E6TyoUNpFRfsN975TBir UsX7YFTpmiJiK9QuBBUz tKedIuN5r7N2Mn2OBRg5 KV59ZK47sUYxj0E8 aFS2S7MnSIMsjfyjbkcb sPJ5LIPdNAOafP30Hj5y iNvtLp1bWSHfYRX4WLRs qSMgH0YdlW7iUdCo VMTfGQKbC8EquAZjUYfg E979LLkyAxV9QTYptvOb L6CbTPCqcPtgHqK4c4U3 Rz5BYVAkCS55JXS4 cHE2PN08IG81K3JjQfup dGFibGU+PHRhYmxlIHdp ZHRoPScxMDAlJyBzdHls EU7jUy1dDNGxPLIp lRxuyIIvRcZww9qfQDZk LNdpTK9tzJjcB8UrwIJ0 VTYld8j2Kb76V07qI9Xz dXA+SAAfiBL3iFG8 lG1kIwXzNbE5DZymV556 AzUcqKAmCjjgt2ueh6ba vQs4ZmB4IVAlrfYnoXqb ZUM3p3AxYd35G10t IHdpZHRoPSIxNSUiIHZh oHssjc2ntG2oHg3+PGNv nDJ6aJM8kG4bJgJsVrW0 SBbtW211OlFszIYb Adcmy6kze4ixxJd5HeKt FJPyjyYihWddIBG9r2Su Sr16U2DmgFquo5CpLza8 kn10kGCko2M1kWD1 J0InTRRvkaxuaLDswHgr SO9bCDGxtlgwSCSkuT7c VFUtE8w4QbHvLaF5PAtq T6JnhvE3QOHilJAo PTxrJDH1R22lj1E3NVOv FFXuKIM2nVS4rV2soCni bjogbGVmdDsgdmVydGlj NYyfKAtdM891AXNw fZarAORvrV3hGVJnfNPe sJejDX0hFZNvvfilClOS EU8CCAjjO2RQAdFzFDaw dGQ+PBNsHIR2nDbe YRxsLSGwuN8yMCGdA2g3 RmZyAyO0OLsiF9VhTIGv cyetXr51zZ2iFbDwQwS1 TUoqS2IqbuY9DNUz dNBbGBnxPBD6W66gh3S6 HCVeYCJoBSB6fAF7oA0x bGlnbjogbGVmdDsgdmVy cHgsRZwoFLntH628 IHRvcDsnPjAxLzMxLzE5 HQF7R5NhRsz8KLYqsThr AA1rxECgZMzsXu8rxUau xSikZR4tYKThjehn UNRwtH0mSXOpfQFuoKuk NE2qNHIuerrrq675DgBk POB0QBRcyKIgK8VmuX7q FdQuXDHrLGHnN7Gq gAMmOZnwQ090ZZrnOrF1 OJHfkyZyG1GnCMJmeJub IoC0z8J6Ys64WzXZTWUx czwvdGQ+PHRkIHN0 nPnuFBsqQDZcwB7sBCEu V8i2GuAyKeR2RQmtE5Ls SHQjmjvdQg27yL4lMeSj JbD9GHpfC0TnwxH1 FKGrxDJxTWcfYBN9J16e j0V1QVJrMPXcYXK1zUK2 rT1ukSlzdwgnwIAllOxf dmVydGljYWwtYWxp R835RVRxbMlrUw1fzIK0 P2ZkWpx7AMIdtReoDE1r sEQpCKzrDz3itWmwvHpi NC5zGRKazbuoJOZn hX0yUZBmnUWakOqoLG8w QCSlqysmu424JoGmLWT6 SSIawFVzO4FuqI6pSmHq XBPzVDDrP4HksOPm PFsiV613TTmpTwM2OORe vyNdG0KuOFYtqIgzJgY5 v1P1If9JBQvhNO5mguAy FU6bywA8L9JpIwys dHI+OP83SNEpSU29xCYf bSUtf7nadYt2IfNpGFXw YXF1lSmdBZoik8NlTRWs X17urZRwv4J3BYGj iIqolAWaDoPctUG1wI1h SQxucngur5udmmoaNmyq s6tihg58vW52A59lWOki ZHRoPSIzMCUiIHZh zSuudw2vmN6cTh2+PGNv eRZ6oPC0uO4rPtEtKzV0 FEgyL431BcOcsUTpHvsy j7xww6zvjYl2UvIl TLLkhbXiuUhjEXY8t2Ir Vh39X69aLYojTGCbIYNs PMYcTOZrtNcbnc0qjQ1o Ii8+FW6ws9qrih31 hH02mQW+HJJuUKM7wMpj YYocNLVehB5iSDrzAqE9 XYLyEzKhfH83lZPgWOhg Vj7ufIndlJhbXL0s PLHftzajq729AbEdl5rd OIKogIDuDGxbRAY6L32o g3I6KOAhDIHhRAA1zYO2 iM6xbYscmtwpyBBn dDsgdmVydGljYWwtYWxp N920CBZwzNuwJjTubNVb O1euinCVNA8rBptqiXC+ TLVzIAV4sBmqOFad BPIndQ5fMVWwA4y8EvCy AfL3GDfyH3PtfjU5UMXl cXZeDJQwnLKAhX4lcisb v9guncbrEaBwUJLe DKv5EXx4HFKteQjmYrLk UXW3EkM1BGG4vBZabA6t nMtlqvfkuE1mHoy+RklO OjwvdGQ+PHRkIHN0 nNpuZIsjROHzrZ9gIYJi T1j3TlQgSkX3WQbzQ4Nq zlO0OGRjvYTsLXFnqYGT oJ0ianidt5ewyjwx QuFmWPSmPPk6PXu4UNIe oTfjDmLcHHZ6VnC0IFL0 uOJdqM0ycUoltntooD3v Oyc+TVJOOjwvdGQ+ XECiKBA5nWlvPZqgNKGr vD1kHNAaW0v4BtJsVjY7 FBoiJ3WdnsW7VFVmqZLl DHLnfJFJrU3qdifl w0xloylrMfNvKLEzLOv1 GBt1GMTwfPtqIaDaNSK5 QhV6AQU7pTGtjF6btWpm shbijO6zGef+UGF5 EEC3QZ95KL72W6GpFkvy dGFibGU+PHRhYmxlIHdp ZHRoPScxMDAlJyBzdHls QF6kBr5eWHUcIWWm bGxh (more content not included)... Normal [facility] Consent for Treatmenton 06-20 Consent for Treatment [id number] 12 [id number] 3#1.00CD:127 Normal [facility] HIPAA Forms Officeon 022 HIPAA Forms Office [id number]. [id number] #1.00CD:127 Normal [facility] Legal Correspondence Officeo n 07-15-2022 Legal Correspondence Office [id number]. [id number] #1.00CD:127 Normal [facility] Office/Clinic Note-Physician on 07-15-2022 Office/Clinic Note-Physician [id number]. [id number] #1.00CD:127 Normal [facility] Patient History Officeon Patient History Office [id number]. [id number] #1.00CD:127 Normal [facility] Radiology Outside Office Shift Mechanic yon 07-15-2022 Radiology Outside Office Copy [id number] #1.00CD:127 Normal [facility] Outside Records Officeon Outside Records Office [id number]. [facility] [id number] #1.00CD:127 Normal [facility] Radiology Outside Office Shift Mechanic yon 07-09-2022 Radiology Outside Office Copy [id number] #1.00CD:127 Normal [facility] Referrals Officeon 2 Referrals Office [id number] #1.00CD:127 Normal [facility] MRI LSPINE WO CONon 05-22-20 22 MRI [...] by: NATACHA RENDON Date: 2022-05-22 19:[address] [facility] XR FOREIGN BODY EYEon 2021 XR FOREIGN BODY EYE EXAMINATION: XR FOREIGN BODY EYE HISTORY: Foreign body in eye COMPARISON: No relevant comparison available. FINDINGS: ORBITS: Negative for a metallic foreign body. OTHER: Negative. IMPRESSION: No metallic foreign body in the orbits Electronically authenticated by: NATACHA RENDON Date: 2022-05-22 14:05 Normal [facility] CULTURE BLOODon 05-01-2022 Microscopic examination of blood, culture Culture Observations: Anaerobic bottle only positive Culture Observations: BCID- Staph epidermidis Culture Observations: NO GROWTH AT 5 DAYS IN AEROBIC BOTTLE. Culture Observations: METHICILLIN RESISTANT STAPH EPIDERMIDIS ISOLATED. PLEASE FOLLOW APPROPRIATE ISOLATION PROCEDURES. Culture Observations: FAXED RESULT TO PER YAKOV 04/28 @ 7570 Isolate 1 Staphylococcus epidermidis Growth of ORGANISM [...] F Oxacillin >=4 R F Normal [facility] Comment on above: Performed By: #### H STROPN #### [facility] [address] [place] [address] Dr. Troy Hickey BLOOD CULTURE ID PANELon A. baumannii Not detected Normal NOT DETECTED [facility] Comment on above: Performed By: #### B CID2 #### [facility] [address] [place] [address] Dr. Troy Hickey Bacteriodes fragilis Not detected Normal NOT DETECTED [facility] Comment on above: Performed By: #### B CID2 #### [facility] [address] [place] [address] Dr. Troy Hickey BCID CONTROLS PASSED Normal The [facility] Comment on above: Performed By: #### B CID2 #### [facility] [address] [place] [address] Dr. Troy Hickey BCIDBTHD BLOOD CULTURE BOTTLE INFORMATION Normal [facility] Comment on above: Performed By: #### B CID2 #### [facility] [address] [place] [address] Dr. Troy Hickey BCIDHD1 ANTIMICROBIAL RESISTANCE GENES Normal [facility] Comment on above: Performed By: #### B CID2 #### [facility] [address] [place] [address] Dr. Troy Hickey BCIDHD2 SEE BELOW [facility] Comment on above: Result Comment: Note : Antimicrobial resitance can occur via multiple mechanisms. A Not Detected result for the [employer] antomicrobial resistance gene assays does not indicate antimicrobial susceptibility. Subculturing is required for species identification and susceptibility testing of isolates. Performed By: #### B CID2 #### [facility] [address] [place] [address] Dr. Troy Hickey BCIDHD3 Positive [facility] Comment on above: Performed By: #### B CID2 #### [facility] [address] [place] [address] Dr. Troy Hickey BCIDHD4 Negative Normal [facility] Comment on above: Performed By: #### B CID2 #### [facility] [address] [place] [address] Dr. Troy Hickey BCIDHD5 YEAST Normal [facility] Comment on above: Performed By: #### B CID2 #### [facility] [address] [place] [address] Dr. Troy Hickey Bottle Set: Set 2 Normal [facility] Comment on above: Performed By: #### B CID2 #### [facility] [address] [place] [address] Dr. Troy Hickey Bottle: Anaerobic Normal [facility] Comment on above: Performed By: #### B CID2 #### [facility] [address] [place] [address] Dr. Troy Hickey C. neoformans/gattii Not detected Normal NOT DETECTED [facility] Comment on above: Performed By: #### B CID2 #### [facility] [address] [place] [address] Dr. Troy Hickey Eunice albicans Not detected Normal NOT DETECTED [facility] Comment on above: Performed By: #### B CID2 #### [facility] [address] [place] [address] Dr. Troy Hickey Eunice auris Not detected Normal NOT DETECTED The [facility] Comment on above: Performed By: #### B CID2 #### [facility] [address] [place] [address] Dr. Troy Hickey Eunice glabrata Not detected Normal NOT DETECTED [facility] Comment on above: Performed By: #### B CID2 #### [facility] [address] [place] [address] Dr. Troy Hickey Eunice Krusei Not detected Normal NOT DETECTED [facility] Comment on above: Performed By: #### B CID2 #### [facility] [address] [place] [address] Dr. Troy Hickey Eunice Parapsilosis Not detected Normal NOT DETECTED [facility] Comment on above: Performed By: #### B CID2 #### [facility] [address] [place] [address] Dr. Troy Hickey Eunice Tropicalis Not detected Normal NOT DETECTED [facility] Comment on above: Performed By: #### B CID2 #### [facility] [address] [place] [address] Dr. Troy Hickey CTX-M Resistant Gene Not Applicable Normal NOT DETECTE D [facility] Comment on above: Performed By: #### B CID2 #### [facility] [address] [place] [address] Dr. Troy Hickey E. Cloacae complex Not detected Normal NOT DETECTED [facility] Comment on above: Performed By: #### B CID2 #### [facility] [address] [place] [address] Dr. Troy Hickey E. faecalis Not detected Normal NOT DETECTED The [facility] Comment on above: Performed By: #### B CID2 #### [facility] [address] [place] [address] Dr. Troy Hickey E. faecium Not detected Normal NOT DETECTED [facility] Comment on above: Performed By: #### B CID2 #### [facility] [address] [place] [address] Dr. Troy Hickey Enterobacteriaceae Not detected Normal NOT DETECTED [facility] Comment on above: Performed By: #### B CID2 #### [facility] [address] [place] [address] Dr. Troy Hickey Escherichia coli Not detected Normal NOT DETECTED [facility] Comment on above: Performed By: #### B CID2 #### [facility] [address] [place] [address] Dr. Troy Hickey H. influenzae Not detected Normal NOT DETECTED The [facility] Comment on above: Performed By: #### B CID2 #### [facility] [address] [place] [address] Dr. Troy Hickey IMP Resistant Gene Not Applicable Normal NOT DETECTED [facility] Comment on above: Performed By: #### B CID2 #### [facility] [address] [place] [address] Dr. Troy Hickey K. oxytoca Not detected Normal NOT DETECTED [facility] Comment on above: Performed By: #### B CID2 #### [facility] [address] [place] [address] Dr. Troy Hickey K. pneumoniae Not detected Normal NOT DETECTED The [facility]. [facility] Comment on above: Performed By: #### B CID2 #### [facility] [address] [place] [address] Dr. Troy Hickey Klebsiella aerogenes Not detected Normal NOT DETECTED [facility] Comment on above: Performed By: #### B CID2 #### [facility] [address] [place] [address] Dr. Troy Hickey KPC Resistant Gene Not detected Normal NOT DETECTED [facility] Comment on above: Performed By: #### B CID2 #### [facility] [address] [place] [address] Dr. Troy Hickey List. monocytogenes Not detected Normal NOT DETECTED [facility] Comment on above: Performed By: #### B CID2 #### [facility] [address] [place] [address] Dr. Troy Hickey Mcr-1 Resistant Gene Not Applicable Normal NOT DETECTE D [facility] Comment on above: Performed By: #### B CID2 #### [facility] [address] [place] [address] Dr. Troy Hickey mecA/C Detected Abnormal NOT DETECTED [facility] Comment on above: Performed By: #### B CID2 #### [facility] [address] [place] [address] Dr. Troy Hickey mecA/C MREJ Not Applicable Normal NOT DETECTED [facility] Comment on above: Performed By: #### B CID2 #### [facility] [address] [place] [address] Dr. Troy Hickey N. meningitidis Not detected Normal NOT DETECTED [facility] Comment on above: Performed By: #### B CID2 #### [facility] [address] [place] [address] Dr. Troy Hickey NDM Resistant Gene Not Applicable Normal NOT DETECTED [facility] Comment on above: Performed By: #### B CID2 #### [facility] [address] [place] [address] Dr. Troy Hickey Oxa-48-like Not Applicable Normal NOT DETECTED [facility] Comment on above: Performed By: #### B CID2 #### [facility] [address] [place] [address] Dr. Troy Hickey Proteus Not detected Normal NOT DETECTED [facility] Comment on above: Performed By: #### B CID2 #### [facility] [address] [place] [address] Dr. Troy Hickey Pseud. aeruginosa Not detected Normal NOT DETECTED [facility] Comment on above: Performed By: #### B CID2 #### [facility] [address] [place] [address] Dr. Troy Hickey S. maltophilia Not detected Normal NOT DETECTED [facility] Comment on above: Performed By: #### B CID2 #### [facility] [address] [place] [address] Dr. Troy Hickey Salmonella Not detected Normal NOT DETECTED [facility] Comment on above: Performed By: #### B CID2 #### [facility] [address] [place] [address] Dr. Troy Hickey Seratia marcescens Not detected Normal NOT DETECTED [facility] Comment on above: Performed By: #### B CID2 #### [facility] [address] [place] [address] Dr. Troy Hickey Site: right arm Normal [facility] Comment on above: Performed By: #### B CID2 #### [facility] [address] [place] [address] Dr. Troy Hickey Staph. aureus Not detected Normal NOT DETECTED [facility] Comment on above: Performed By: #### B CID2 #### [facility] [address] [place] [address] Dr. Troy Hickey Staph. epidermidis Detected Abnormal NOT DETECTED [facility] Comment on above: Performed By: #### B CID2 #### [facility] [address] [place] [address] Dr. Troy Hickey Staph. lugdunensis Not detected Normal NOT DETECTED [facility] Comment on above: Performed By: #### B CID2 #### [facility] [address] [place] [address] Dr. Troy Hickey Staphylococcus Detected Abnormal NOT DETECTED [facility] Comment on above: Performed By: #### B CID2 #### [facility] [address] [place] [address] Dr. Troy Hickey Strep. agalactiae Not detected Normal NOT DETECTED [facility] Comment on above: Performed By: #### B CID2 #### [facility] [address] [place] [address] Dr. Troy Hickey Strep. pneumoniae Not detected Normal NOT DETECTED [facility] Comment on above: Performed By: #### B CID2 #### [facility] [address] [place] [address] Dr. Troy Hickey Strep. pyogenes Not detected Normal NOT DETECTED [facility] Comment on above: Performed By: #### B CID2 #### [facility] [address] [place] [address] Dr. Troy Hickey Streptococcus Not detected Normal NOT DETECTED [facility] Comment on above: Performed By: #### B CID2 #### [facility] [address] [place] [address] Dr. Troy Bruner/Blair Resist. Gene Not detected Normal NOT DETECTED [facility] Comment on above: Performed By: #### B CID2 #### [facility] [address] [place] [address] Dr. Troy Hickey VIM Resistant Gene Not Applicable Normal NOT DETECTED [facility] Comment on above: Performed By: #### B CID2 #### [facility] [address] [place] [address] Dr. Troy Hickey BNPon 04-25-2022 Natriuretic peptide B (Bld) [Mass/Vol] 239.0 pg/mL Normal <=900.0 [facility] Comment on above: Performed By: #### B UMBRELLA FINISHER, HSTROPN, CMP #### [facility] [address] [place] [address] Dr. Troy Hickey CBC AUTO DIFFon 04-25-2022 BASO # 0.1 103/ul Normal 0.0-0.1 [facility] Comment on above: Performed By: #### H STROPN #### [facility] [address] [place] [address] Dr. Troy Hickey Basophils/100 WBC (Bld) 0.3 % Normal 0.2-2.0 [facility] Comment on above: Performed By: #### H STROPN #### [facility] [address] [place] [address] Dr. Troy Hickey EO # 0.0 103/ul Normal 0.0-0.7 [facility] Comment on above: Performed By: #### H STROPN #### [facility] [address] [place] [address] Dr. Troy Hickey Eosinophils/100 WBC (Bld) 0.1 % Critically low 0.9-7.0 [facility] Comment on above: Performed By: #### H STROPN #### [facility] [address] [place] [address] Dr. Troy Hickey Erythrocyte distribution width (RBC) [Ratio] 13.5 % Normal 11.0-15.0 [facility] Comment on above: Performed By: #### H STROPN #### [facility] [address] [place] [address] Dr. Troy Hickey Hematocrit (Bld) [Volume fraction] 33.0 % Critically low 42.0-54.0 [facility] Comment on above: Performed By: #### H STROPN #### [facility] [address] [place] [address] Dr. Troy Hickey Hemoglobin (Bld) [Mass/Vol] 10.4 g/dL Critically low 14.0-18.0 [facility] Comment on above: Performed By: #### H STROPN #### [facility] [address] [place] [address] Dr. Troy Hickey IG # 0.08 10e3/ul Critically high 0.00-0.03 [facility] Comment on above: Performed By: #### H STROPN #### [facility] [address] [place] [address] Dr. Troy Hickey IG % 0.5 % Normal 0.0-0.5 [facility] Comment on above: Performed By: #### H STROPN #### [facility] [address] [place] [address] Dr. Troy Hickey LYMPH # 0.8 103/ul Critically low 1.2-3.8 [facility] Comment on above: Performed By: #### H STROPN #### [facility] [address] [place] [address] Dr. Troy Hickey Lymphocytes/100 WBC (Bld) 4.3 % Critically low 20.5-60.0 [facility] Comment on above: Performed By: #### H STROPN #### [facility] [address] [place] [address] Dr. Troy Hickey MANUAL DIFF REQ NO Normal [facility] Comment on above: Performed By: #### H STROPN #### [facility] [address] [place] [address] Dr. Troy Hickey MCH (RBC) [Entitic mass] 25.3 pg Critically low 25.9-34.0 [facility] Comment on above: Performed By: #### H STROPN #### [facility] [address] [place] [address] Dr. Troy Hickey MCHC (RBC) [Mass/Vol] 31.5 g/dL Normal 29.9-35.2 [facility] Comment on above: Performed By: #### H STROPN #### [facility] [address] [place] [address] Dr. Troy Hickey MCV (RBC) [Entitic vol] 80.3 fL Normal 80.0-94.0 [facility] Comment on above: Performed By: #### H STROPN #### [facility] [address] [place] [address] Dr. Troy Hickey MONO # 0.6 103/ul Normal 0.3-0.8 [facility] Comment on above: Performed By: #### H STROPN #### [facility] [address] [place] [address] Dr. Troy Hickey Monocytes/100 WBC (Bld) 3.4 % Normal 1.7-12.0 [facility] Comment on above: Performed By: #### H STROPN #### [facility] [address] [place] [address] Dr. Troy Hickey NEUT # 16.0 103/ul Critically high 1.4-6.5 [facility] Comment on above: Performed By: #### H STROPN #### [facility] [address] [place] [address] Dr. Troy Hickey Neutrophils/100 WBC (Bld) 91.4 % Critically high 43.0-75.0 [facility] Comment on above: Performed By: #### H STROPN #### [facility] [address] [place] [address] Dr. Troy Hickey Platelet mean volume (Bld) [Entitic vol] 8.9 fL Critically low 9.5-13.5 [facility] Comment on above: Performed By: #### H STROPN #### [facility] [address] [address] [address] Troy Hickey PLT 269 103/ul Normal 150-450 [facility] Comment on above: Performed By: #### H STROPN #### [facility] [id number] Troy Hickey RBC 4.11 106/ul Critically low 4.70-6.10 [facility] Comment on above: Performed By: #### H STROPN #### [facility] [address] [address] [address] Troy Hickey WBC 17.5 103/ul Critically high 4.0-11.0 [facility] Comment on above: Performed By: #### H STROPN #### [facility] [address] [place] [address] Dr. Troy Hickey CULTURE BLOODon 04-25-2022 Microscopic examination of blood, culture Culture Observations: NO GROWTH AT 5 DAYS. Normal [facility] Comment on above: Performed By: #### H STROPN #### [facility] [address] [place] [address] Dr. Troy Hickey Covid-19 PCR ([facility]on SARS-CoV-2 (COVID-19) RNA ERNIE+probe Ql (Unsp spec) Not detected Normal NOT DETECTED [facility] Comment on above: Result Comment: When [...] for this test is supported by the [employer] of Health and Human Service's declaration that [...] used). Performed By: #### C VDTB #### [facility] [address] [place] [address] Dr. Troy Hickey INFLUENZA A AND B AGon 04-25 INFLUENZA A AG Negative Normal NEGATIVE SEE COMMENT [facility] Comment on above: Performed By: #### I NFLUAB #### [facility] [address] [place] [address] Dr. Troy Hickey INFLUENZA B AG Negative Normal NEGATIVE SEE COMMENT [facility] Comment on above: Performed By: #### I NFLUAB #### [facility] [address] [place] [address] Dr. Troy Hickey INTERNAL CONTROLS Within Normal Limits Normal Wi thin Normal Limits [facility] Comment on above: Performed By: #### I NFLUAB #### [facility] [address] [place] [address] Dr. Troy Hickey LACTATE/LACTIC ACIDon 2021 Lactate [Moles/Vol] 1.5 mmol/L Normal 0.4-1.9 [facility] Comment on above: Performed By: #### L ACT #### [facility] [address] [place] [address] Dr. Troy Hickey PROF 14(COMP METB)on 022 Albumin [Mass/Vol] 3.6 g/dL Normal 3.4-5.0 [facility] Comment on above: Performed By: #### B UMBRELLA FINISHER, HSTROPN, CMP #### [facility] [address] [place] [address] Dr. Troy Hickey Albumin/Globulin [Mass ratio] 0.8 {ratio} Normal [facility] Comment on above: Performed By: #### B UMBRELLA FINISHER, HSTROPN, CMP #### [facility] [address] [place] [address] Dr. Troy Hickey ALP [Catalytic activity/Vol] 144 U/L Critically high 46-116 [facility] Comment on above: Performed By: #### B UMBRELLA FINISHER, HSTROPN, CMP #### [facility] [address] [place] [address] Dr. Troy Hickey ALT [Catalytic activity/Vol] 17 U/L Normal 16-63 [facility] Comment on above: Performed By: #### B UMBRELLA FINISHER, HSTROPN, CMP #### [facility] [address] [place] [address] Dr. Troy Hickey Anion gap [Moles/Vol] 9.0 mmol/L Normal [facility] Comment on above: Performed By: #### B UMBRELLA FINISHER, HSTROPN, CMP #### [facility] [address] [address] [address] Troy Hickey AST [Catalytic activity/Vol] 15 U/L Normal 15-37 [facility] Comment on above: Performed By: #### B UMBRELLA FINISHER, HSTROPN, CMP #### [facility] [address] [address] [address] Troy Hickey Bilirubin [Mass/Vol] 0.7 mg/dL Normal 0.2-1.0 [facility] Comment on above: Performed By: #### B UMBRELLA FINISHER, HSTROPN, CMP #### [facility] [address] [address] [address] Troy Hickey Calcium [Mass/Vol] 9.0 mg/dL Normal 8.5-10.1 [facility] Comment on above: Performed By: #### B UMBRELLA FINISHER, HSTROPN, CMP #### [facility] [address] [address] [address] Troy Hickey Chloride [Moles/Vol] 101 mmol/L Normal 98-107 [facility] Comment on above: Performed By: #### B UMBRELLA FINISHER, HSTROPN, CMP #### [facility] [address] [address] [address] Troy Hickey CO2 [Moles/Vol] 29.0 mmol/L Normal 21.0-32.0 [facility] Comment on above: Performed By: #### B UMBRELLA FINISHER, HSTROPN, CMP #### [facility] [address] [address] [address] Troy Hickey Creatinine [Mass/Vol] 0.94 mg/dL Normal 0.70-1.30 [facility] Comment on above: Performed By: #### B UMBRELLA FINISHER, HSTROPN, CMP #### [facility] [address] [place] [address] Dr. Troy Hickey EGFR-AF HONDURAN >60 Normal >=60 [facility] Comment on above: Performed By: #### B UMBRELLA FINISHER, HSTROPN, CMP #### [facility] [address] [place] [address] Dr. Troy Hickey EGFR-NON AF HONDURAN >60 Normal >=60 [facility] Comment on above: Performed By: #### B UMBRELLA FINISHER, HSTROPN, CMP #### [facility] [address] [place] [address] Dr. Troy Hickey Globulin (S) [Mass/Vol] 4.3 g/dL Normal [facility] Comment on above: Performed By: #### B UMBRELLA FINISHER, HSTROPN, CMP #### [facility] [address] [place] [address] Dr. Troy Hickey Glucose [Mass/Vol] 187 mg/dL Critically high 74-106 [facility] Comment on above: Performed By: #### B UMBRELLA FINISHER, HSTROPN, CMP #### [facility] [address] [place] [address] Dr. Troy Hickey Potassium [Moles/Vol] 4.0 mmol/L Normal 3.5-5.1 [facility] Comment on above: Performed By: #### B UMBRELLA FINISHER, HSTROPN, CMP #### [facility] [address] [place] [address] Dr. Troy Hickey Protein [Mass/Vol] 7.9 g/dL Normal 6.4-8.2 [facility] Comment on above: Performed By: #### B UMBRELLA FINISHER, HSTROPN, CMP #### [facility] [address] [place] [address] Dr. Troy Hickey Sodium [Moles/Vol] 135 mmol/L Critically low 136-145 [facility] Comment on above: Performed By: #### B UMBRELLA FINISHER, HSTROPN, CMP #### [facility] [address] [address] [address] Troy Hickey Urea nitrogen [Mass/Vol] 15.0 mg/dL Normal 7.0-18.0 [facility] Comment on above: Performed By: #### B UMBRELLA FINISHER, HSTROPN, CMP #### [facility] [address] [place], [place] [address] Dr. Troy Hickey Urea nitrogen/Creatinine [Mass ratio] 16.0 mg/mg Normal [facility] Comment on above: Performed By: #### B UMBRELLA FINISHER, HSTROPN, CMP #### [facility] [address] [place], [place] [address] Dr. Troy Hickey TROPONIN, HIGH SENSITIVITYon 04-25-2022 HSTROP 11.1 pg/mL Normal 4.0-76.1 [facility] Comment on above: Result Comment: CUT- OFF POINTS HAVE BEEN ESTABLISHED BASED ON THE FOURTH UNIVERSAL DEFINITIONS OF MYOCARDIAL INFARCTION. THE UPPER REFERENCE LIMIT (URL) OF TROPONIN, DEFINED THE 99TH PERCENTILE OF cTnI DISTRIBUTION IN A REFERENCE POPULATION, HAS BEEN CONFIRMED THE DECISION THRESHOLD FOR SC DIAGNOSIS. Performed By: #### B UMBRELLA FINISHER, HSTROPN, CMP #### [facility] [address] [address] [address] Troy Hickey XR CHEST 1 Von [...] SANDER MOCTEZUMA Date: 2022-04-25 15:38 Normal [facility] XR CHEST 2 Von 04-23-2022 XR [...] by: JEAN-PAUL SALAS Date: 2022-04-23 11:[address] [facility] XR LSPINE MIN 4 VIEWSon 03-20 XR [...] by: JEAN-PAUL SALAS Date: 2022-04-02 15:[address] [facility] Tobacco Screening.on Tobacco use status [facility] b) No [facility] DO Work Phone: PROF 14(COMP METB)on Albumin [Mass/Vol] 3.5 g/dL Normal 3.4-5.0 [facility] Comment on above: Performed By: #### C MP #### [facility] [address] [address] [address] Troy Hickey Albumin/Globulin [Mass ratio] 0.9 {ratio} Normal [facility] Comment on above: Performed By: #### C MP #### [facility] [address] [address] [address] Troy Hickey ALP [Catalytic activity/Vol] 104 U/L Normal 46-116 [facility] Comment on above: Performed By: #### C MP #### [facility] [address] [address] [address] Troy Hickey ALT [Catalytic activity/Vol] 19 U/L Normal 16-63 [facility] Comment on above: Performed By: #### C MP #### [facility] [address] [address] [address] Troy Hickey Anion gap [Moles/Vol] 11.7 mmol/L Normal [facility] Comment on above: Performed By: #### C MP #### [facility] [address] [address] [address] Troy Hickey AST [Catalytic activity/Vol] 9 U/L Critically low 15-37 [facility] Comment on above: Performed By: #### C MP #### [facility] [address] [address] [address] Troy Hickey Bilirubin [Mass/Vol] 0.4 mg/dL Normal 0.2-1.0 [facility] Comment on above: Performed By: #### C MP #### [facility] [address] [address] [address] Troy Hickey Calcium [Mass/Vol] 8.7 mg/dL Normal 8.5-10.1 [facility] Comment on above: Performed By: #### C MP #### [facility] [address] [place] [address] Dr. Troy Hickey Chloride [Moles/Vol] 104 mmol/L Normal 98-107 [facility] Comment on above: Performed By: #### C MP #### [facility] [address] [address] [address] Troy Hickey CO2 [Moles/Vol] 28.9 mmol/L Normal 21.0-32.0 [facility] Comment on above: Performed By: #### C MP #### [facility] [address] [address] [address] Troy Hickey Creatinine [Mass/Vol] 1.02 mg/dL Normal 0.70-1.30 [facility] Comment on above: Performed By: #### C MP #### [facility] [address] [place] [address] Dr. Troy Hickey EGFR-AF HONDURAN >60 Normal >=60 [facility] Comment on above: Performed By: #### C MP #### [facility] [address] [address] [address] Troy Hickey EGFR-NON AF HONDURAN >60 Normal >=60 [facility] Comment on above: Performed By: #### C MP #### [facility] [address] [address] [address] Troy Hickey Globulin (S) [Mass/Vol] 3.8 g/dL Normal [facility] Comment on above: Performed By: #### C MP #### [facility] [address] [address] [address] Troy Hickey Glucose [Mass/Vol] 121 mg/dL Critically high 74-106 [facility] Comment on above: Performed By: #### C MP #### [facility] [address] [address] [address] Troy Hickey Potassium [Moles/Vol] 4.6 mmol/L Normal 3.5-5.1 [facility] Comment on above: Performed By: #### C MP #### [facility] [address] [address] [address] Troy Hickey Protein [Mass/Vol] 7.3 g/dL Normal 6.4-8.2 [facility] Comment on above: Performed By: #### C MP #### [facility] [address] [address] [address] Troy Hickey Sodium [Moles/Vol] 140 mmol/L Normal 136-145 [facility] Comment on above: Performed By: #### C MP #### [facility] [address] [address] [address] Troy Hickey Urea nitrogen [Mass/Vol] 45.0 mg/dL Critically high 7.0-18.0 [facility] Comment on above: Performed By: #### C MP #### [facility] [address] [address] [address] Troy Hickey Urea nitrogen/Creatinine [Mass ratio] 44.1 mg/mg Normal [facility] Comment on above: Performed By: #### C MP #### [facility] [id number] Troy Hickey Tobacco Screening.on 022 Adult depression screening assessment [facility] 250 DO Work Phone: Fall risk assessment b) One or more fall s in the last year [facility] [employer] 250 DO Work Phone: Tobacco use status [facility]PH[facility] b) No [facility] 250 DO Work Phone: Complete Blood Count Auto Di ffon 11-26-2021 Basophils (Bld) [#/Vol] 0.1 10*3/uL Normal 0.0-0.2 [facility] Comment on above: Result Comment: PERF ORMED BY: [place] [address] PATHOLOGIST DOG RAISER KAREN CORONADO M.D. Performed By: #### P TT, CBC, PT #### [address] Basophils/100 WBC (Bld) 1.1 % Normal . [facility] Comment on above: Performed By: #### P TT, CBC, PT #### [facility] [address] [place] [address] Eosinophils (Bld) [#/Vol] 0.2 10*3/uL Normal 0.0-0.45 [facility] Comment on above: Performed By: #### P TT, CBC, PT #### [address] Eosinophils/100 WBC (Bld) 1.9 % Normal . [facility] Comment on above: Performed By: #### P TT, CBC, PT #### [facility] [address] [place] [address] Erythrocyte distribution width (RBC) [Ratio] 14.7 % Normal 12.0-14.8 [facility] Comment on above: Performed By: #### P TT, CBC, PT #### [address] Hematocrit (Bld) [Volume fraction] 36.6 % Low 38.8-50.0 [facility] Comment on above: Performed By: #### P TT, CBC, PT #### [facility] [address] Hemoglobin (Bld) [Mass/Vol] 12.4 g/dL Low 13.0-17.0 [facility] Comment on above: Performed By: #### P TT, CBC, PT #### [facility] [address] Lymphocytes (Bld) [#/Vol] 1.7 10*3/uL Normal 1.00-4.8 [facility] Comment on above: Performed By: #### P TT, CBC, PT #### [facility] [address] Lymphocytes/100 WBC (Bld) 13.9 % Normal . [facility] Comment on above: Performed By: #### P TT, CBC, PT #### [address] MCH (RBC) [Entitic mass] 27.1 pg Low 27.5-35.2 [facility] Comment on above: Performed By: #### P TT, CBC, PT #### [place] [address] [place] MCV (RBC) [Entitic vol] 80.3 fL Low 83.5-101 [facility] Comment on above: Performed By: #### P TT, CBC, PT #### [address] Mean Corpuscular HGB Conc 33.7 g/dL Normal 32.5-35.6 [facility] Comment on above: Performed By: #### P TT, CBC, PT #### [facility] [address] [place] [address] [place] Monocytes (Bld) [#/Vol] 0.7 10*3/uL Normal 0.0-0.8 [facility] Comment on above: Performed By: #### P TT, CBC, PT #### [facility] [address] [place] [address] [place] Monocytes/100 WBC (Bld) 5.6 % Normal . [facility] Comment on above: Performed By: #### P TT, CBC, PT #### [facility] [address] Neutrophils (Bld) [#/Vol] 9.2 10*3/uL High 1.8-7.7 [facility] Comment on above: Performed By: #### P TT, CBC, PT #### [facility] [address] Neutrophils/100 WBC (Bld) 77.5 % Normal . [facility] Comment on above: Performed By: #### P TT, CBC, PT #### [facility] [address] Nucleated RBC/100 WBC (Bld) [Ratio] 0.0 % Normal 0-0.5 [facility] Comment on above: Performed By: #### P TT, CBC, PT #### [address] Platelet mean volume (Bld) [Entitic vol] 6.9 fL Normal 6.6-10.1 [facility] Comment on above: Performed By: #### P TT, CBC, PT #### [address] Platelets (Bld) [#/Vol] 272 10*3/uL Normal 150-450 [facility] Comment on above: Performed By: #### P TT, CBC, PT #### [address] RBC (Bld) [#/Vol] 4.56 10*6/uL Normal 3.90-5.60 [facility] Comment on above: Performed By: #### P TT, CBC, PT #### [place] [address] [place] WBC (Bld) [#/Vol] 11.9 10*3/uL High 4.5-11.0 [facility] Comment on above: Performed By: #### P TT, CBC, PT #### [address] Comprehensive Metabolic Pane yvette 11-26-2021 Albumin [Mass/Vol] 3.5 g/dL Normal 3.2-5.5 [facility] Comment on above: Performed By: #### P TT, CBC, PT #### [address] Albumin/Globulin [Mass ratio] 0.9 {ratio} Normal [facility] Comment on above: Performed By: #### P TT, CBC, PT #### [facility] [address] [place] [address] ALP [Catalytic activity/Vol] 74 U/L Normal 32-92 [facility] Comment on above: Performed By: #### P TT, CBC, PT #### [address] ALT [Catalytic activity/Vol] 21 U/L Normal 10-60 [facility] Comment on above: Performed By: #### P TT, CBC, PT #### [address] AST [Catalytic activity/Vol] 27 U/L Normal 10-42 [facility] Comment on above: Performed By: #### P TT, CBC, PT #### [facility] [address] [place] [address] Bilirubin [Mass/Vol] 0.8 mg/dL Normal 0.3-1.2 [facility] Comment on above: Performed By: #### P TT, CBC, PT #### [facility] [address] [place] [address] Calcium [Mass/Vol] 8.9 mg/dL Normal 8.2-10.2 [facility] Comment on above: Performed By: #### P TT, CBC, PT #### [facility] [address] [place] [address] [place] Chloride [Moles/Vol] 99 mmol/L Normal 95-114 [facility] Comment on above: Performed By: #### P TT, CBC, PT #### [facility] [address] [place] [address] [place] CO2 [Moles/Vol] 24.4 mmol/L Normal 22.0-30.0 [facility] Comment on above: Performed By: #### P TT, CBC, PT #### [facility] [address] Creatinine [Mass/Vol] 0.75 mg/dL Normal 0.64-1.27 [facility] Comment on above: Performed By: #### P TT, CBC, PT #### [facility] [address] [place] [address] Creatinine Clr Calc Pharmacy 123.92 [facility] Comment on above: Result Comment: PERF ORMED BY: [place] [address] PATHOLOGIST DOG RAISER KAREN CORONADO M.D. Performed By: #### P TT, CBC, PT #### [address] Estimated GFR ( Sunitha > 60 [facility] Comment on above: Result Comment: GFR estimated reference range: According to KDOQI guidelines, <60 ml/min/1.73m2 is sufficient to diagnose a patient with chronic kidney disease. Performed By: #### P TT, CBC, PT #### [address] Estimated GFR (Non- Am > 60 [facility] Comment on above: Performed By: #### P TT, CBC, PT #### [address] Globulin (S) [Mass/Vol] 3.7 g/dL [facility] Comment on above: Performed By: #### P TT, CBC, PT #### [facility] [address] [place] [address] [place] Glucose [Mass/Vol] 122 mg/dL High 70-100 [facility] Comment on above: Result Comment: [place] om Glucose Reference Range is dependent on time and content of last meal. Glucose of more than 200 mg/dL in a nonstressed, ambulatory subject supports the diagnosis of Diabetes Mellitus. ADA recommended reference range Performed By: #### P TT, CBC, PT #### [facility] [address] Potassium [Moles/Vol] 4.0 mmol/L Normal 3.5-5.1 [facility] Comment on above: Performed By: #### P TT, CBC, PT #### [facility] [address] [place] [id number] [facility] Protein [Mass/Vol] 7.2 g/dL Normal 6.1-7.9 [facility] Comment on above: Performed By: #### P TT, CBC, PT #### [facility] [address] Sodium [Moles/Vol] 133 mmol/L Low 136-146 [facility] Comment on above: Performed By: #### P TT, CBC, PT #### [facility] [address] Urea nitrogen [Mass/Vol] 8 mg/dL Low 9-23 [facility] Comment on above: Performed By: #### P TT, CBC, PT #### [facility] [address] ECG 12 lead ECGon 11-26-2021 ECG 12 lead ECG [facility] [address] Electrocardiograph Report Signed Patient: Barry Galdamez MR#: [id number] 41 : 1955 Acct:[id number] Age/Sex: 66 / M ADM Date: 11/23/21 Loc: Room: [address] [place] [address] Type: DIS IN Attending Dr: Merline Elias [...] SALDIVAR DO Transcribed By: MUS Signed By Hcétor Saldivar DO 11/26 1304 Normal [facility] Troponin I High Sensitivityo n 11-26-2021 Troponin I High Sensitivity 1239 pg/mL Off scale high 0-20 [facility] Comment on above: Result Comment: Resu lts called at 0713 on 11/26/21 PERFORMED BY: [place] [address] PATHOLOGIST DOG RAISER KAREN CORONADO M.D. Performed By: #### P TT, CBC, PT #### [facility] [address] Basic Metabolic Panelon 05 Calcium [Mass/Vol] 8.7 mg/dL Normal 8.2-10.2 [facility] Comment on above: Performed By: #### P TT, CBC, PT #### [facility] [address] [place] [address] [place] Chloride [Moles/Vol] 102 mmol/L Normal 95-114 [facility] Comment on above: Performed By: #### P TT, CBC, PT #### [facility] [address] [place] [address] [place] CO2 [Moles/Vol] 27.7 mmol/L Normal 22.0-30.0 [facility] Comment on above: Performed By: #### P TT, CBC, PT #### [facility] [address] [place] [address] [place] Creatinine [Mass/Vol] 0.74 mg/dL Normal 0.64-1.27 [facility] Comment on above: Performed By: #### P TT, CBC, PT #### [facility] [address] [place] [address] [place] Creatinine Clr Calc Pharmacy 123.20 Normal [facility] Comment on above: Result Comment: PERF ORMED BY: [place] [address] PATHOLOGIST DOG RAISER KAREN CORONADO M.D. Performed By: #### P TT, CBC, PT #### [address] Estimated GFR ( Sunitha > 60 [facility] Comment on above: Result Comment: GFR estimated reference range: According to KDOQI guidelines, <60 ml/min/1.73m2 is sufficient to diagnose a patient with chronic kidney disease. Performed By: #### P TT, CBC, PT #### [address] Estimated GFR (Non- Am > 60 [facility] Comment on above: Performed By: #### P TT, CBC, PT #### [address] Glucose [Mass/Vol] 114 mg/dL High 70-100 [facility] Comment on above: Result Comment: [place] om Glucose Reference Range is dependent on time and content of last meal. Glucose of more than 200 mg/dL in a nonstressed, ambulatory subject supports the diagnosis of Diabetes Mellitus. ADA recommended reference range Performed By: #### P TT, CBC, PT #### [address] Potassium [Moles/Vol] 3.8 mmol/L Normal 3.5-5.1 [facility] Comment on above: Performed By: #### P TT, CBC, PT #### [place] [address] [place] Sodium [Moles/Vol] 137 mmol/L Normal 136-146 [facility] Comment on above: Performed By: #### P TT, CBC, PT #### [address] Urea nitrogen [Mass/Vol] 9 mg/dL Normal 9-23 [facility] Comment on above: Performed By: #### P TT, CBC, PT #### [place] [address] [place] Complete Blood Count Auto Di ffon 11-25-2021 Basophils (Bld) [#/Vol] 0.1 10*3/uL Normal 0.0-0.2 [facility] Comment on above: Result Comment: PERF ORMED BY: [place] [address] PATHOLOGIST DOG RAISER KAREN CORONADO M.D. Performed By: #### P TT, CBC, PT #### [address] Basophils/100 WBC (Bld) 1.6 % Normal . [facility] Comment on above: Performed By: #### P TT, CBC, PT #### [facility] [address] [place] [address] Eosinophils (Bld) [#/Vol] 0.5 10*3/uL High 0.0-0.45 [facility] Comment on above: Performed By: #### P TT, CBC, PT #### [address] Eosinophils/100 WBC (Bld) 4.9 % Normal . [facility] Comment on above: Performed By: #### P TT, CBC, PT #### [facility] [address] [place] [address] Erythrocyte distribution width (RBC) [Ratio] 14.7 % Normal 12.0-14.8 [facility] Comment on above: Performed By: #### P TT, CBC, PT #### [address] Hematocrit (Bld) [Volume fraction] 34.0 % Low 38.8-50.0 [facility] Comment on above: Performed By: #### P TT, CBC, PT #### [facility] [address] [place] [address] [place] Hemoglobin (Bld) [Mass/Vol] 11.5 g/dL Low 13.0-17.0 [facility] Comment on above: Performed By: #### P TT, CBC, PT #### [facility] [address] [place] [address] [place] Lymphocytes (Bld) [#/Vol] 2.2 10*3/uL Normal 1.00-4.8 [facility] Comment on above: Performed By: #### P TT, CBC, PT #### [facility] [address] Lymphocytes/100 WBC (Bld) 23.9 % Normal . [facility] Comment on above: Performed By: #### P TT, CBC, PT #### [facility] [address] MCH (RBC) [Entitic mass] 27.8 pg Normal 27.5-35.2 [facility] Comment on above: Performed By: #### P TT, CBC, PT #### [facility] [address] MCV (RBC) [Entitic vol] 82.3 fL Low 83.5-101 [facility] Comment on above: Performed By: #### P TT, CBC, PT #### [address] Mean Corpuscular HGB Conc 33.8 g/dL Normal 32.5-35.6 [facility] Comment on above: Performed By: #### P TT, CBC, PT #### [address] Monocytes (Bld) [#/Vol] 0.6 10*3/uL Normal 0.0-0.8 [facility] Comment on above: Performed By: #### P TT, CBC, PT #### [address] Monocytes/100 WBC (Bld) 6.4 % Normal . [facility] Comment on above: Performed By: #### P TT, CBC, PT #### [address] Neutrophils (Bld) [#/Vol] 5.8 10*3/uL Normal 1.8-7.7 [facility] Comment on above: Performed By: #### P TT, CBC, PT #### [address] [address] [place] Neutrophils/100 WBC (Bld) 63.2 % Normal . [facility] Comment on above: Performed By: #### P TT, CBC, PT #### [place] [address] [place] Nucleated RBC/100 WBC (Bld) [Ratio] 0.0 % Normal 0-0.5 [facility] Comment on above: Performed By: #### P TT, CBC, PT #### [address] Platelet mean volume (Bld) [Entitic vol] 7.3 fL Normal 6.6-10.1 [facility] Comment on above: Performed By: #### P TT, CBC, PT #### [address] Platelets (Bld) [#/Vol] 231 10*3/uL Normal 150-450 [facility] Comment on above: Performed By: #### P TT, CBC, PT #### [place] [address] [place] RBC (Bld) [#/Vol] 4.13 10*6/uL Normal 3.90-5.60 [facility] Comment on above: Performed By: #### P TT, CBC, PT #### [address] WBC (Bld) [#/Vol] 9.2 10*3/uL Normal 4.5-11.0 [facility] Comment on above: Performed By: #### P TT, CBC, PT #### [place] [address] [place] ECG 12 lead ECGon 11-25-2021 ECG 12 lead ECG [facility] Main [place] [address] [place] [address] Electrocardiograph Report Signed Patient: Barry Galdamez MR#: [id number] 41 : 1955 Acct:[id number] Age/Sex: 66 / M ADM Date: 11/23/21 Loc: Room: [address] [place] [address] Type: DIS IN Attending Dr: Merline Elias [...] (183) on 11/25/2021 4:37:48 PM Referred By: [facility] Electronically Signed By:HÉCTOR SALDIVAR DO Transcribed By: [facility] Signed By Héctor Saldivar DO 11/25 1639 [facility] echo transthoracicon [facility] echo transthoracic [facility] [place] [address] Echocardiogram Signed Patient: Barry Galdamez MR#: [id number] 41 : 1955 Acct:[id number] Age/Sex: 66 / M ADM Date: 11/23/21 Loc: Room: 5I3367-5 Type: DIS IN Attending Dr: Merline Elias MD Ordering Provider: Maya Doyle MD Date of Service: 11/25/21/ [facility] echo transthoracic: chest pain Copies to: MD [...] By: Maribell Rivas MD 11/25/21 1541 Normal [facility] Partial Thromboplastin Timeo n 11-25-2021 aPTT Coag (Bld) [Time] 58.4 s High 25.1-36.5 [facility] Comment on above: Result Comment: PERF ORMED BY: [facility] [address] [place] [address] PATHOLOGIST DOG RAISER KAREN CORONADO M.D. Performed By: #### P TT, CBC, PT #### [facility] [address] [place], [place] [address] aPTT Coag (Bld) [Time] 59.8 s High 25.1-36.5 [facility] Comment on above: Order Comment: List the anticoagulant: HEPARIN, UNFRACTIONATED Result Comment: PERF ORMED BY: [place] [address] PATHOLOGIST DOG RAISER KAREN CORONADO M.D. Performed By: #### P TT #### [address] Prothrombin Time INRon 11-25 INR Coag (PPP) [Relative time] 1.2 {INR} Normal [facility] Comment on above: Result Comment: INR Therapeutic [...] heart valves: 3 - 4.5 PERFORMED BY: [place] [address] PATHOLOGIST DOG RAISER KAREN CORONADO M.D. Performed By: #### P TT, CBC, PT #### [place] [id number] [facility] PT Coag (PPP) [Time] 13.7 s High 9.0-12.9 [facility] Comment on above: Performed By: #### P TT, CBC, PT #### [facility] [address] [place] [address] A1C with Estimated Average G luon 11-24-2021 Glucose [Mass/Vol] 131 mg/dL Normal [facility] Comment on above: Result Comment: PERF ORMED BY: [place] [address] PATHOLOGIST DOG RAISER KAREN CORONADO M.D. Performed By: #### P TT, CBC, PT #### [facility] [address] HbA1c (Bld) [Mass fraction] 6.2 % High 4.3-5.6 [facility] Comment on above: Result Comment: Incr eased risk for diabetes: 5.7 - 6.4 diabetes: >6.4 glycemic control for adults with diabetes: <7.0 Performed By: #### P TT, CBC, PT #### [address] Basic Metabolic Panelon 05-0 -2021 Calcium [Mass/Vol] 8.2 mg/dL Normal 8.2-10.2 [facility] Comment on above: Performed By: #### P TT, CBC, PT #### [address] Chloride [Moles/Vol] 104 mmol/L Normal 95-114 [facility] Comment on above: Performed By: #### P TT, CBC, PT #### [address] CO2 [Moles/Vol] 26.5 mmol/L Normal 22.0-30.0 [facility] Comment on above: Performed By: #### P TT, CBC, PT #### [address] Creatinine [Mass/Vol] 0.82 mg/dL Normal 0.64-1.27 [facility] Comment on above: Performed By: #### P TT, CBC, PT #### [address] Creatinine Clr Calc Pharmacy 121.60 [facility] Comment on above: Performed By: #### P TT, CBC, PT #### [address] Estimated GFR ( Sunitha > 60 [facility] Comment on above: Result Comment: GFR estimated reference range: According to KDOQI guidelines, <60 ml/min/1.73m2 is sufficient to diagnose a patient with chronic kidney disease. Performed By: #### P TT, CBC, PT #### [address] [place] [address] [place] Estimated GFR (Non- Am > 60 Normal [facility] Comment on above: Performed By: #### P TT, CBC, PT #### [facility] [address] Glucose [Mass/Vol] 116 mg/dL High 70-100 [facility] Comment on above: Result Comment: [place] Glucose Reference Range is dependent on time and content of last meal. Glucose of more than 200 mg/dL in a nonstressed, ambulatory subject supports the diagnosis of Diabetes Mellitus. ADA recommended reference range Performed By: #### P TT, CBC, PT #### [facility] [address] Potassium [Moles/Vol] 3.9 mmol/L Normal 3.5-5.1 [facility] Comment on above: Performed By: #### P TT, CBC, PT #### [address] Sodium [Moles/Vol] 138 mmol/L Normal 136-146 [facility] Comment on above: Performed By: #### P TT, CBC, PT #### [address] Urea nitrogen [Mass/Vol] 11 mg/dL Normal 9-23 [facility] Comment on above: Performed By: #### P TT, CBC, PT #### [address] Complete Blood Count Auto Di ffon 11-24-2021 Basophils (Bld) [#/Vol] 0.1 10*3/uL Normal 0.0-0.2 [facility] Comment on above: Result Comment: PERF ORMED BY: [place] [address] PATHOLOGIST DOG RAISER KAREN CORONADO M.D. Performed By: #### P TT, CBC, PT #### [place] [address] [place] Basophils/100 WBC (Bld) 1.1 % Normal . [facility] Comment on above: Performed By: #### P TT, CBC, PT #### [facility] [address] Eosinophils (Bld) [#/Vol] 0.2 10*3/uL Normal 0.0-0.45 [facility] Comment on above: Performed By: #### P TT, CBC, PT #### [address] Eosinophils/100 WBC (Bld) 2.0 % Normal . [facility] Comment on above: Performed By: #### P TT, CBC, PT #### [address] Erythrocyte distribution width (RBC) [Ratio] 14.8 % Normal 12.0-14.8 [facility] Comment on above: Performed By: #### P TT, CBC, PT #### [address] Hematocrit (Bld) [Volume fraction] 34.5 % Low 38.8-50.0 [facility] Comment on above: Performed By: #### P TT, CBC, PT #### [address] Hemoglobin (Bld) [Mass/Vol] 11.6 g/dL Low 13.0-17.0 [facility] Comment on above: Performed By: #### P TT, CBC, PT #### [place] [address] [place] Lymphocytes (Bld) [#/Vol] 2.2 10*3/uL Normal 1.00-4.8 [facility] Comment on above: Performed By: #### P TT, CBC, PT #### [address] Lymphocytes/100 WBC (Bld) 25.0 % Normal . [facility] Comment on above: Performed By: #### P TT, CBC, PT #### [address] MCH (RBC) [Entitic mass] 27.4 pg Low 27.5-35.2 [facility] Comment on above: Performed By: #### P TT, CBC, PT #### [facility] [address] MCV (RBC) [Entitic vol] 81.6 fL Low 83.5-101 [facility] Comment on above: Performed By: #### P TT, CBC, PT #### [address] Mean Corpuscular HGB Conc 33.6 g/dL Normal 32.5-35.6 [facility] Comment on above: Performed By: #### P TT, CBC, PT #### [address] Monocytes (Bld) [#/Vol] 0.4 10*3/uL Normal 0.0-0.8 [facility] Comment on above: Performed By: #### P TT, CBC, PT #### [address] Monocytes/100 WBC (Bld) 4.6 % Normal . [facility] Comment on above: Performed By: #### P TT, CBC, PT #### [address] Neutrophils (Bld) [#/Vol] 6.0 10*3/uL Normal 1.8-7.7 [facility] Comment on above: Performed By: #### P TT, CBC, PT #### [address] Neutrophils/100 WBC (Bld) 67.3 % Normal . [facility] Comment on above: Performed By: #### P TT, CBC, PT #### [address] Nucleated RBC/100 WBC (Bld) [Ratio] 0.0 % Normal 0-0.5 [facility] Comment on above: Performed By: #### P TT, CBC, PT #### [address] Platelet mean volume (Bld) [Entitic vol] 6.8 fL Normal 6.6-10.1 [facility] Comment on above: Performed By: #### P TT, CBC, PT #### [facility] [address] Platelets (Bld) [#/Vol] 253 10*3/uL Normal 150-450 [facility] Comment on above: Performed By: #### P TT, CBC, PT #### [facility] [address] RBC (Bld) [#/Vol] 4.22 10*6/uL Normal 3.90-5.60 [facility] Comment on above: Performed By: #### P TT, CBC, PT #### [facility] [address] WBC (Bld) [#/Vol] 8.9 10*3/uL Normal 4.5-11.0 [facility] Comment on above: Performed By: #### P TT, CBC, PT #### [facility] [address] ECG 12 lead ECGon 11-24-2021 ECG 12 lead ECG [facility] Main [place] [address] [place] [address] Electrocardiograph Report Signed Patient: Barry Galdamez MR#: [id number] 41 : 1955 Acct:[id number] Age/Sex: 66 / M ADM Date: 11/23/21 Loc: Room: [address] [place] [address] Type: DIS IN Attending Dr: Merline Elias [...] in Anterior leads Confirmed by ROSEANNE FARFAN [facility], SUND[facility] ([id number]) on 11/24/2021 9:45:33 AM Referred By: Electronically Signed By:SUNDAR CRONIN MD [facility] Transcribed By: MUS Signed By Sundar Cronin MD, [facility] 11/24/21 0945 Normal [facility] Lipid Panelon 11-24-2021 Cholesterol [Mass/Vol] 129 mg/dL Low 140-200 [facility] Comment on above: Result Comment: Chol less than 200 mg/dl low risk Chol 201-239 mg/dl borderline risk Chol 240 mg/dl and greater high risk Performed By: #### P TT, CBC, PT #### [facility] [address] [id number] [place] Cholesterol in HDL [Mass/Vol] 24 mg/dL Low 29-71 [facility] Comment on above: Result Comment: HDL CHOL ATP-III CLASSIFICATION Cardiovascular Risk HDL > or equal to 60 mg/dL LOW HDL < 40 mg/dL HIGH Performed By: #### P TT, CBC, PT #### [facility] [address] [place] [address] [place] Cholesterol.total/Chol esterol in HDL [Mass ratio] 5.4 {ratio} Normal <5.0 [facility] Comment on above: Result Comment: PERF ORMED BY: [place] [address] PATHOLOGIST DOG RAISER KAREN CORONADO M.D. Performed By: #### P TT, CBC, PT #### [facility] [address] [place] [address] [place] LDL Cholesterol,Calculated 86 mg/dL Normal 0-100 [facility] Comment on above: Result Comment: LDL ATP III CLASSIFICATION LDL less than 100 mg/dL Optimal LDL 100-129 mg/dL Near or above optimal LDL 130-159 mg/dL Borderline high LDL 160-189 mg/dL High LDL greater than 189 mg/dL Very high Performed By: #### P TT, CBC, PT #### [facility] [address] [place] [address] [place] Triglyceride w/Reflex 96 mg/dL Normal 35-149 [facility] Comment on above: Result Comment: TRIG ATP III CLASSIFICATION TRIG less than 150 mg/dL Normal TRIG 150-199 mg/dL Borderline high TRIG 200-500 mg/dL High TRIG greater than 500 mg/dL Very high Standard traceable to the Center for Disease Conrtrol and Prevention (CDC) test method. Performed By: #### P TT, CBC, PT #### [facility] [address] [place] [address] VLDL CHOLESTEROL 19 mg/dL Normal [facility] Comment on above: Performed By: #### P TT, CBC, PT #### [facility] [address] Magnesiumon 11-24-2021 Magnesium [Mass/Vol] 1.8 mg/dL Normal 1.6-2.6 [facility] Comment on above: Performed By: #### P TT, CBC, PT #### [address] Partial Thromboplastin Timeo n 11-24-2021 aPTT Coag (Bld) [Time] 71.4 s High 25.1-36.5 [facility] Comment on above: Result Comment: PERF ORMED BY: [place] [address] PATHOLOGIST DOG RAISER KAREN CORONADO M.D. Performed By: #### P TT #### [address] aPTT Coag (Bld) [Time] 37.7 s High 25.1-36.5 [facility] Comment on above: Result Comment: PERF ORMED BY: [place] [address] PATHOLOGIST DOG RAISER KAREN CORONADO M.D. Performed By: #### P TT #### [address] aPTT Coag (Bld) [Time] 55.3 s High 25.1-36.5 [facility] Comment on above: Result Comment: PERF ORMED BY: [facility] [address] [place] [address] PATHOLOGIST DOG RAISER KAREN CORONADO M.D. Performed By: #### P T, PTT, BMP, MG, LIPID #### [facility] [address] [place] [address] aPTT Coag (Bld) [Time] 33.3 s Normal 25.1-36.5 [facility] Comment on above: Result Comment: PERF ORMED BY: [facility] [address] [place] [address] PATHOLOGIST DOG RAISER KAREN CORONADO M.D. Performed By: #### P TT, CBC, PT #### [facility] [address] [place] [address] Prothrombin Time INRon 11-24 INR Coag (PPP) [Relative time] 1.2 {INR} Normal [facility] Comment on above: Result Comment: INR Therapeutic [...] P T, PTT, BMP, MG, LIPID #### [facility] [address] [place] [address] PT Coag (PPP) [Time] 13.4 s High 9.0-12.9 [facility] Comment on above: Performed By: #### P T, PTT, BMP, MG, LIPID #### [facility] [address] [place] [address] INR Coag (PPP) [Relative time] 1.2 {INR} Normal [facility] Comment on above: Result Comment: INR Therapeutic [...] By: #### P TT, CBC, PT #### [facility] [address] PT Coag (PPP) [Time] 13.0 s High 9.0-12.9 [facility] Comment on above: Performed By: #### P TT, CBC, PT #### [facility] [address] Troponin I High Sensitivityo n 11-24-2021 Troponin I High Sensitivity 308 pg/mL Off scale high 0-20 [facility] Comment on above: Result Comment: Resu lts called at 0026 on 11/24/21 PERFORMED BY: [place] [address] PATHOLOGIST DOG RAISER KAREN CORONADO M.D. Performed By: #### P TT, CBC, PT #### [address] BNPon 11-23-2021 Natriuretic peptide B (Bld) [Mass/Vol] 153.0 pg/mL Normal <=900.0 [facility] Comment on above: Performed By: #### H STROPN #### [facility] [address] [place] [address] Dr. Troy Hickey CBC AUTO DIFFon 11-23-2021 BASO # 0.1 103/ul Normal 0.0-0.1 [facility] Comment on above: Performed By: #### H STROPN #### [facility] [address] [place] [address] Dr. Troy Hickey Basophils/100 WBC (Bld) 0.7 % Normal 0.2-2.0 [facility] Comment on above: Performed By: #### H STROPN #### [facility] [address] [place] [address] Dr. Troy Hickey EO # 0.4 103/ul Normal 0.0-0.7 [facility] Comment on above: Performed By: #### H STROPN #### [facility] [address] [address] [address] Troy Hickey Eosinophils/100 WBC (Bld) 4.2 % Normal 0.9-7.0 [facility] Comment on above: Performed By: #### H STROPN #### [facility] [address] [place] [address] Dr. Troy Hickey Erythrocyte distribution width (RBC) [Ratio] 14.2 % Normal 11.0-15.0 [facility] Comment on above: Performed By: #### H STROPN #### [facility] [address] [place] [address] Dr. Troy Hickey Hematocrit (Bld) [Volume fraction] 40.2 % Critically low 42.0-54.0 [facility] Comment on above: Performed By: #### H STROPN #### [facility] [address] [place] [address] Dr. Troy Hickey Hemoglobin (Bld) [Mass/Vol] 12.4 g/dL Critically low 14.0-18.0 [facility] Comment on above: Performed By: #### H STROPN #### [facility] [address] [place] [address] Dr. Troy Hickey IG # 0.03 10e3/ul Normal 0.00-0.03 [facility] Comment on above: Performed By: #### H STROPN #### [facility] [address] [place] [address] Dr. Troy Hickey IG % 0.3 % Normal 0.0-0.5 [facility] Comment on above: Performed By: #### H STROPN #### [facility] [address] [place] [address] Dr. Troy Hickey LYMPH # 2.4 103/ul Normal 1.2-3.8 [facility] Comment on above: Performed By: #### H STROPN #### [facility] [address] [place] [address] Dr. Troy Hickey Lymphocytes/100 WBC (Bld) 27.9 % Normal 20.5-60.0 [facility] Comment on above: Performed By: #### H STROPN #### [facility] [address] [place] [address] Dr. Troy Hickey MANUAL DIFF REQ NO Normal [facility] Comment on above: Performed By: #### H STROPN #### [facility] [address] [place] [address] Dr. Tory Hickey MCH (RBC) [Entitic mass] 27.2 pg Normal 25.9-34.0 [facility] Comment on above: Performed By: #### H STROPN #### [facility] [address] [place] [address] Dr. Troy Hickey MCHC (RBC) [Mass/Vol] 30.8 g/dL Normal 29.9-35.2 [facility] Comment on above: Performed By: #### H STROPN #### [facility] [address] [place] [address] Dr. Troy Hickey MCV (RBC) [Entitic vol] 88.2 fL Normal 80.0-94.0 [facility] Comment on above: Performed By: #### H STROPN #### [facility] [address] [place] [address] Dr. Troy Hickey MONO # 0.6 103/ul Normal 0.3-0.8 [facility] Comment on above: Performed By: #### H STROPN #### [facility] [address] [place] [address] Dr. Troy Hickey Monocytes/100 WBC (Bld) 7.2 % Normal 1.7-12.0 [facility] Comment on above: Performed By: #### H STROPN #### [facility] [address] [place] [address] Dr. Troy Hickey NEUT # 5.2 103/ul Normal 1.4-6.5 [facility] Comment on above: Performed By: #### H STROPN #### [facility] [address] [place] [address] Dr. Troy Hickey Neutrophils/100 WBC (Bld) 59.7 % Normal 43.0-75.0 [facility] Comment on above: Performed By: #### H STROPN #### [facility] [address] [place], [place] [address] Dr. Troy Hickey Platelet mean volume (Bld) [Entitic vol] 8.5 fL Critically low 9.5-13.5 [facility] Comment on above: Performed By: #### H STROPN #### [facility] [address] [address] [address] Troy Hickey PLT 252 103/ul Normal 150-450 [facility] Comment on above: Performed By: #### H STROPN #### [facility] [address] [place], [place] [address] Dr. Troy Hickey RBC 4.56 106/ul Critically low 4.70-6.10 [facility] Comment on above: Performed By: #### H STROPN #### [facility] [address] [address] [address] Troy Hickey WBC 8.6 103/ul Normal 4.0-11.0 [facility] Comment on above: Performed By: #### H STROPN #### [facility] [address] [address] [address] Troy Hickey CTA CHEST WO W [...] by: ABRAN CHRISTINE Date: 2021-11-23 19:[address] [facility] Coagulation Profileon 2021 aPTT Coag (Bld) [Time] 46.5 s High 25.1-36.5 [facility] Comment on above: Result Comment: PERF ORMED BY: [place] [address] PATHOLOGIST DOG RAISER KAREN CORONADO M.D. Performed By: #### C BC, PP #### [address] INR Coag (PPP) [Relative time] 1.2 {INR} Normal [facility] Comment on above: Result Comment: INR Therapeutic [...] Performed By: #### C BC, PP #### [address] PT Coag (PPP) [Time] 13.5 s High 9.0-12.9 [facility] Comment on above: Performed By: #### C BC, PP #### [address] Complete Blood Count Auto Di ffon 11-23-2021 Basophils (Bld) [#/Vol] 0.0 10*3/uL Normal 0.0-0.2 [facility] Comment on above: Result Comment: PERF ORMED BY: [place] [address] PATHOLOGIST DOG RAISER KAREN CORONADO M.D. Performed By: #### C BC, PP #### [address] Basophils/100 WBC (Bld) 0.3 % Normal . [facility] Comment on above: Performed By: #### C BC, PP #### [address] Eosinophils (Bld) [#/Vol] 0.2 10*3/uL Normal 0.0-0.45 [facility] Comment on above: Performed By: #### C BC, PP #### [address] Eosinophils/100 WBC (Bld) 2.5 % Normal . [facility] Comment on above: Performed By: #### C BC, PP #### [address] Erythrocyte distribution width (RBC) [Ratio] 14.4 % Normal 12.0-14.8 [facility] Comment on above: Performed By: #### C BC, PP #### [address] Hematocrit (Bld) [Volume fraction] 34.4 % Low 38.8-50.0 [facility] Comment on above: Performed By: #### C BC, PP #### [place] [address] [place] Hemoglobin (Bld) [Mass/Vol] 11.6 g/dL Low 13.0-17.0 [facility] Comment on above: Performed By: #### C BC, PP #### [address] Lymphocytes (Bld) [#/Vol] 1.7 10*3/uL Normal 1.00-4.8 [facility] Comment on above: Performed By: #### C BC, PP #### [address] Lymphocytes/100 WBC (Bld) 18.9 % Normal . [facility] Comment on above: Performed By: #### C BC, PP #### [address] MCH (RBC) [Entitic mass] 27.5 pg Normal 27.5-35.2 [facility] Comment on above: Performed By: #### C BC, PP #### [address] MCV (RBC) [Entitic vol] 81.8 fL Low 83.5-101 [facility] Comment on above: Performed By: #### C BC, PP #### [address] Mean Corpuscular HGB Conc 33.7 g/dL Normal 32.5-35.6 [facility] Comment on above: Performed By: #### C BC, PP #### [address] Monocytes (Bld) [#/Vol] 0.4 10*3/uL Normal 0.0-0.8 [facility] Comment on above: Performed By: #### C BC, PP #### [address] Monocytes/100 WBC (Bld) 4.1 % Normal . [facility] Comment on above: Performed By: #### C BC, PP #### [address] Neutrophils (Bld) [#/Vol] 6.8 10*3/uL Normal 1.8-7.7 [facility] Comment on above: Performed By: #### C BC, PP #### [address] Neutrophils/100 WBC (Bld) 74.2 % Normal . [facility] Comment on above: Performed By: #### C BC, PP #### [address] Nucleated RBC/100 WBC (Bld) [Ratio] 0.0 % Normal 0-0.5 [facility] Comment on above: Performed By: #### C BC, PP #### [address] Platelet mean volume (Bld) [Entitic vol] 6.7 fL Normal 6.6-10.1 [facility] Comment on above: Performed By: #### C BC, PP #### [address] Platelets (Bld) [#/Vol] 250 10*3/uL Normal 150-450 [facility] Comment on above: Performed By: #### C BC, PP #### [address] RBC (Bld) [#/Vol] 4.21 10*6/uL Normal 3.90-5.60 [facility] Comment on above: Performed By: #### C BC, PP #### [address] WBC (Bld) [#/Vol] 9.1 10*3/uL Normal 4.5-11.0 [facility] Comment on above: Performed By: #### C BC, PP #### [address] Comprehensive Metabolic Pane yvette 11-23-2021 Albumin [Mass/Vol] 3.1 g/dL Low 3.2-5.5 [facility] Comment on above: Performed By: #### P TT, CBC, PT #### [address] Albumin/Globulin [Mass ratio] 0.9 {ratio} Normal [facility] Comment on above: Performed By: #### P TT, CBC, PT #### [address] ALP [Catalytic activity/Vol] 77 U/L Normal 32-92 [facility] Comment on above: Performed By: #### P TT, CBC, PT #### [facility] [address] [id number] [place] ALT [Catalytic activity/Vol] 16 U/L Normal 10-60 [facility] Comment on above: Performed By: #### P TT, CBC, PT #### [facility] [address] [phone] [place] AST [Catalytic activity/Vol] 21 U/L Normal 10-42 [facility] Comment on above: Performed By: #### P TT, CBC, PT #### [facility] [address] [id number] [place] Bilirubin [Mass/Vol] 0.2 mg/dL Low 0.3-1.2 [facility] Comment on above: Performed By: #### P TT, CBC, PT #### [facility] [address] Calcium [Mass/Vol] 8.3 mg/dL Normal 8.2-10.2 [facility] Comment on above: Performed By: #### P TT, CBC, PT #### [facility] [address] [place] [address] [place] Chloride [Moles/Vol] 104 mmol/L Normal 95-114 [facility] Comment on above: Performed By: #### P TT, CBC, PT #### [facility] [address] [place] [address] [place] CO2 [Moles/Vol] 26.2 mmol/L Normal 22.0-30.0 [facility] Comment on above: Performed By: #### P TT, CBC, PT #### [facility] [address] [id number] [place] Creatinine [Mass/Vol] 0.84 mg/dL Normal 0.64-1.27 [facility] Comment on above: Performed By: #### P TT, CBC, PT #### [facility] [address] [place] [address] [place] Estimated GFR ( Sunitha > 60 Normal [facility] Comment on above: Result Comment: GFR estimated reference range: According to KDOQI guidelines, <60 ml/min/1.73m2 is sufficient to diagnose a patient with chronic kidney disease. Performed By: #### P TT, CBC, PT #### [facility] [address] Estimated GFR (Non- Am > 60 Normal [facility] Comment on above: Performed By: #### P TT, CBC, PT #### [facility] [address] Globulin (S) [Mass/Vol] 3.5 g/dL Normal [facility] Comment on above: Performed By: #### P TT, CBC, PT #### [address] Glucose [Mass/Vol] 137 mg/dL High 70-100 [facility] Comment on above: Result Comment: [place] Glucose Reference Range is dependent on time and content of last meal. Glucose of more than 200 mg/dL in a nonstressed, ambulatory subject supports the diagnosis of Diabetes Mellitus. ADA recommended reference range Performed By: #### P TT, CBC, PT #### [address] Potassium [Moles/Vol] 4.3 mmol/L Normal 3.5-5.1 [facility] Comment on above: Performed By: #### P TT, CBC, PT #### [address] Protein [Mass/Vol] 6.6 g/dL Normal 6.1-7.9 [facility] Comment on above: Performed By: #### P TT, CBC, PT #### [facility] [address] Sodium [Moles/Vol] 139 mmol/L Normal 136-146 [facility] Comment on above: Performed By: #### P TT, CBC, PT #### [facility] [address] Urea nitrogen [Mass/Vol] 15 mg/dL Normal 9-23 [facility] Comment on above: Performed By: #### P TT, CBC, PT #### [place] [address] [place] Covid-19 PCR (CVDTB)on SARS-CoV-2 (COVID-19) RNA ERNIE+probe Ql (Unsp spec) Not detected Normal NOT DETECTED [facility] Comment on above: Result Comment: This test is not yet approved or cleared by the [place] FDA. When there are no FDA-approved or cleared tests available, and other criteria are met, FDA can make tests available under an emergency access mechanism called an Emergency Use Authorization (EUA). The EUA for this test is supported by the [place] of [place] and Human Service's (HHS's) declaration [...] SARS-CoV-2. Performed By: #### B CID2 #### [facility] [address] [place] [address] Dr. Troy Hickey D-DIMERon 11-23-2021 D-DIMER 0.52 mg/L FEU Critically high 0.19-0.50 [facility] Comment on above: Performed By: #### D DIM #### [facility] [address] [place] [address] Dr. Troy Hickey D-DIMER COMMENTS SEE BELOW Normal [facility] Comment on above: Result Comment: Incr eases [...] hospitalization. Performed By: #### D DIM #### [facility] [address] [address] [address] Troy Hickey ECG 12 lead ECGon 11-23-2021 ECG 12 lead ECG [facility] [place] [address] Electrocardiograph Report Signed Patient: Barry Galdamez MR#: [id number] 41 : 1955 Acct:[id number] Age/Sex: 66 / M ADM Date: 11/23/21 Loc: Room: [address] [place] [address] Type: DIS IN Attending Dr: Merline Elias [...] previous ECGs available Confirmed by ROSEANNE FARFAN [facility], SUNDAR ([id number]) on 11/24/2021 9:45:12 AM Referred By: Electronically Signed By:SUNDAR CRONIN MD [facility] Transcribed By: MUS Signed By Sundar Cronin MD, FACC 11/24/21 0945 Normal [facility] Magnesiumon 11-23-2021 Magnesium [Mass/Vol] 2.0 mg/dL Normal 1.6-2.6 [facility] Comment on above: Result Comment: PERF ORMED BY: [place] [address] PATHOLOGIST DOG RAISER KAREN CORONADO M.D. Performed By: #### P TT, CBC, PT #### [facility] [address] [place] [address] [place] PROF 14(COMP METB)on 022 Albumin [Mass/Vol] 3.5 g/dL Normal 3.4-5.0 [facility] Comment on above: Performed By: #### H STROPN #### [facility] [address] [address] [address] Troy Hickey Albumin/Globulin [Mass ratio] 0.8 {ratio} Normal [facility] Comment on above: Performed By: #### H STROPN #### [facility] [address] [address] [address] Troy Hickey ALP [Catalytic activity/Vol] 104 U/L Normal 46-116 [facility] Comment on above: Performed By: #### H STROPN #### [facility] [address] [place] [address] Dr. Troy Hickey ALT [Catalytic activity/Vol] 22 U/L Normal 16-63 [facility] Comment on above: Performed By: #### H STROPN #### [facility] [address] [place] [address] Dr. Troy Hickey Anion gap [Moles/Vol] 6.2 mmol/L Normal [facility] Comment on above: Performed By: #### H STROPN #### [facility] [address] [place] [address] Dr. Troy Hickey AST [Catalytic activity/Vol] 16 U/L Normal 15-37 [facility] Comment on above: Performed By: #### H STROPN #### [facility] [address] [place] [address] Dr. Troy Hickey Bilirubin [Mass/Vol] 0.4 mg/dL Normal 0.2-1.0 [facility] Comment on above: Performed By: #### H STROPN #### [facility] [address] [place] [address] Dr. Troy Hickey Calcium [Mass/Vol] 8.2 mg/dL Critically low 8.5-10.1 [facility] Comment on above: Performed By: #### H STROPN #### [facility] [address] [place] [address] Dr. Troy Hickey Chloride [Moles/Vol] 104 mmol/L Normal 98-107 [facility] Comment on above: Performed By: #### H STROPN #### [facility] [address] [place] [address] Dr. Troy Hickey CO2 [Moles/Vol] 31.8 mmol/L Normal 21.0-32.0 [facility] Comment on above: Performed By: #### H STROPN #### [facility] [address] [place] [address] Dr. Troy Hickey Creatinine [Mass/Vol] 0.88 mg/dL Normal 0.70-1.30 [facility] Comment on above: Performed By: #### H STROPN #### [facility] [address] [place] [address] Dr. Troy Hickey EGFR-AF HONDURAN >60 Normal >=60 [facility] Comment on above: Performed By: #### H STROPN #### [facility] [address] [place] [address] Dr. Troy Hickey EGFR-NON AF HONDURAN >60 Normal >=60 [facility] Comment on above: Performed By: #### H STROPN #### [facility] [address] [place] [address] Dr. Troy Hickey Globulin (S) [Mass/Vol] 4.2 g/dL Normal [facility] Comment on above: Performed By: #### H STROPN #### [facility] [address] [place] [address] Dr. Troy Hickey Glucose [Mass/Vol] 109 mg/dL Critically high 74-106 [facility] Comment on above: Performed By: #### H STROPN #### [facility] [address] [place] [address] Dr. Troy Hickey Potassium [Moles/Vol] 4.0 mmol/L Normal 3.5-5.1 [facility] Comment on above: Performed By: #### H STROPN #### [facility] [address] [place] [address] Dr. Troy Hickey Protein [Mass/Vol] 7.7 g/dL Normal 6.4-8.2 [facility] Comment on above: Performed By: #### H STROPN #### [facility] [address] [place] [address] Dr. Troy Hickey Sodium [Moles/Vol] 138 mmol/L Normal 136-145 [facility] Comment on above: Performed By: #### H STROPN #### [facility] [address] [place] [address] Dr. Troy Hickey Urea nitrogen [Mass/Vol] 17.0 mg/dL Normal 7.0-18.0 [facility] Comment on above: Performed By: #### H STROPN #### [facility] [address] [place] [address] Dr. Troy Hickey Urea nitrogen/Creatinine [Mass ratio] 19.3 mg/mg Normal [facility] Comment on above: Performed By: #### H STROPN #### [facility] [address] [place] [address] Dr. Troy Hickey PROTIMEon 11-23-2021 INR Coag (PPP) [Relative time] 1.01 {INR} Normal [facility] Comment on above: Performed By: #### B CID2 #### [facility] [address] [place] [address] Dr. Troy Hickey INR GUIDELINES SEE BELOW Normal [facility] Comment on above: Result Comment: WAQAS RED INR: 2.0 - 3.0 CONDITIONS NOT LISTED BELOW 2.5 - 3.5 FOR PROSTHETIC HEART VALVE REPLACEMENT 2.5 - 3.5 RECURRENT THROMBOSIS Performed By: #### B CID2 #### [facility] [address] [place] [address] Dr. Troy Hickey PT Coag (PPP) [Time] 10.9 s Normal 9.0-11.6 [facility] Comment on above: Performed By: #### B CID2 #### [facility] [address] [place] [address] Dr. Troy Hickey PTTon 11-23-2021 aPTT Coag (Bld) [Time] 28.3 s Normal 22.3-36.2 Th [facility] Comment on above: Performed By: #### B CID2 #### [facility] [address] [place] [address] Dr. Troy Hickey TROPONIN, HIGH SENSITIVITYon 11-23-2021 HSTROP 197.7 pg/mL Critically high 4.0-76.1 [facility] Comment on above: Result Comment: CUT- OFF POINTS HAVE BEEN ESTABLISHED BASED ON THE FOURTH UNIVERSAL DEFINITIONS OF MYOCARDIAL INFARCTION. THE UPPER REFERENCE LIMIT (URL) OF TROPONIN, DEFINED THE 99TH PERCENTILE OF cTnI DISTRIBUTION IN A REFERENCE POPULATION, HAS BEEN CONFIRMED THE DECISION THRESHOLD FOR SC DIAGNOSIS. Test Repeated. Critical Value Verified Performed By: #### H STROPN #### [facility] [address] [address] [address] Troy Hickey HSTROP 138.8 pg/mL Critically high 4.0-76.1 [facility] Comment on above: Result Comment: CUT- OFF POINTS HAVE BEEN ESTABLISHED BASED ON THE FOURTH UNIVERSAL DEFINITIONS OF MYOCARDIAL INFARCTION. THE UPPER REFERENCE LIMIT (URL) OF TROPONIN, DEFINED THE 99TH PERCENTILE OF cTnI DISTRIBUTION IN A REFERENCE POPULATION, HAS BEEN CONFIRMED THE DECISION THRESHOLD FOR SC DIAGNOSIS. Performed By: #### H STROPN #### [facility] [address] [address] [address] Troy Hickey Troponin I High Sensitivityo n 11-23-2021 Troponin I High Sensitivity 235 pg/mL Off scale high 0-20 [facility] Comment on above: Result Comment: Resu lts called at 2255 on 11/23/21 PERFORMED BY: [place] [address] PATHOLOGIST DOG RAISER KAREN CORONADO M.D. Performed By: #### P TT, CBC, PT #### [facility] [address] [place] [address] XR FINGER MIN 2 VIEWSon 09-17 XR FINGER MIN 2 VIEWS EXAM: XR FINGER SC N 2 VIEWS HISTORY: Laceration of finger [...] LINDA MICHEL Date: 2021-10-05 15:49 Normal [facility] COVID Quick Testingon 2021 Result Positive Tele[employer] Other Quick Fluon 08-08-2021 FLUAV Ab CF (S) [Titer] Negative Tele[employer] Other FLUBV Ab CF (S) [Titer] Positive [employer] Other Vital Signs Date Time Vital Sign Value Performing Clinician Facility 03-26-2023 11:21-0400 Body height 182.88 cm [employer] Work Phone: [facility] [place] 250 DO Work Phone: 03-26-2023 11:21-0400 Body mass index (BMI) [Ratio] 34.99 kg/m2 [employer] Work Phone: [facility] [place] 250 DO Work Phone: 03-26-2023 11:21-0400 Body surface area Derived from formula 2.37 m2 [employer] Work Phone: [facility] [employer] 250 DO Work Phone: 03-26-2023 11:21-0400 Body weight 117.03 kg [employer] Work Phone: [facility] [employer] 250 DO Work Phone: 03-26-2023 11:21-0400 Diastolic blood pressure 70 mm[Hg] [employer] Work Phone: [facility] [employer] 250 DO Work Phone: 03-26-2023 11:21-0400 Heart rate 64 /min [employer] Work Phone: [facility] 250 DO Work Phone: 03-26-2023 11:21-0400 Systolic blood pressure 148 mm[Hg] Joe P House Work Phone: [facility] 250 DO Work Phone: 09-18-2022 12:00-0500 Heart rate 66 /min Joe P House Work Phone: [facility] 250 DO Work Phone: 09-18-2022 11:55-0500 Body height 182.88 cm Joe P House Work Phone: [facility] 250 DO Work Phone: 09-18-2022 11:55-0500 Body mass index (BMI) [Ratio] 35.4 kg/m2 Joe P House Work Phone: [facility] 250 DO Work Phone: 09-18-2022 11:55-0500 Body surface area Derived from formula 2.39 m2 Joe P House Work Phone: [facility] 250 DO Work Phone: 09-18-2022 11:55-0500 Body weight 118.39 kg Joe P House Work Phone: [facility] 250 DO Work Phone: 09-18-2022 11:55-0500 Diastolic blood pressure 72 mm[Hg] Joe P House Work Phone: [facility] 250 DO Work Phone: 09-18-2022 11:55-0500 Systolic blood pressure 142 mm[Hg] Joe P House Work Phone: [facility] 250 DO Work Phone: 03-19-2022 11:01-0400 Body height 182.88 cm Joe P House Work Phone: [facility] 250 DO Work Phone: 03-19-2022 11:01-0400 Body mass index (BMI) [Ratio] 35.13 kg/m2 Joe P House Work Phone: [facility] 250 DO Work Phone: 03-19-2022 11:01-0400 Body surface area Derived from formula 2.38 m2 Joe P House Work Phone: [facility] 250 DO Work Phone: 03-19-2022 11:01-0400 Body weight 117.48 kg Joe P House Work Phone: [facility] 250 DO Work Phone: 03-19-2022 11:01-0400 Diastolic blood pressure 62 mm[Hg] Joe Lam House Work Phone: [facility] 250 DO Work Phone: 03-19-2022 11:01-0400 Heart rate 60 /min Joe P House Work Phone: [facility] 250 DO Work Phone: 03-19-2022 11:01-0400 Systolic blood pressure 102 mm[Hg] Joe Lam House Work Phone: [facility] 250 DO Work Phone: 12-09-2021 10:30-0400 Diastolic blood pressure 68 mm[Hg] Joe P House Work Phone: [facility] 250 DO Work Phone: 12-09-2021 10:30-0400 Systolic blood pressure 118 mm[Hg] Joe P House Work Phone: [facility] 250 DO Work Phone: 12-09-2021 10:25-0400 Body height 182.88 cm Joe P House Work Phone: [facility] 250 DO Work Phone: 12-09-2021 10:25-0400 Body mass index (BMI) [Ratio] 36.08 kg/m2 Joe P House Work Phone: [facility] 250 DO Work Phone: 12-09-2021 10:25-0400 Body surface area Derived from formula 2.4 m2 Joe P House Work Phone: [facility] 250 DO Work Phone: 12-09-2021 10:25-0400 Body weight 120.66 kg Joe P House Work Phone: [facility] 250 DO Work Phone: 12-09-2021 10:25-0400 Diastolic blood pressure 72 mm[Hg] Joe P House Work Phone: [facility] 250 DO Work Phone: 12-09-2021 10:25-0400 Heart rate 66 /min Joe P House Work Phone: [facility] 250 DO Work Phone: 12-09-2021 10:25-0400 Systolic blood pressure 124 mm[Hg] Joe P House Work Phone: [facility] 250 DO Work Phone: 08-08-2021 15:15-0500 Body height 182.88 cm Jocelyn Diaz Other Tele[employer] Other 08-08-2021 15:15-0500 Body mass index (BMI) [Ratio] 34.58 kg/m2 Jocelyn Diaz Other Tele[employer] Other 08-08-2021 15:15-0500 Body temperature 97.1 [degF] Jocelyn Emily Other Tele[employer] Other 08-08-2021 15:15-0500 Body weight 115.67 kg Jocelyn Emily Other Tele[employer] Other 08-08-2021 15:15-0500 Respiratory rate 18 /min Jocelyn Emily Other Tele[employer] Other 08-08-2021 15:15-0500 SaO2% (BldA) [Mass fraction] 98 % Jocelyn Emily Other Telepo Other Encounters Encounter Date Encounter Type Care Provider Facility Start: 08-27-2023 End: 08-28-2023 ambulatory Gibran Barker MD Facility:[facility] Start: 07-21-2023 End: 07-26-2023 ambulatory JOE MADDOX Facility:[facility] Start: 07-14-2023 End: 07-15-2023 ambulatory JOE MADDOX Facility:[facility] Sandy miley Start: 06-25-2023 End: 06-26-2023 ambulatory Neymar Willingham [place] Start: 06-05-2023 End: 06-06-2023 ambulatory PA-C Ariana Urena [facility] Start: 05-26-2023 End: 05-27-2023 ambulatory [facility] Start: 05-19-2023 End: 05-20-2023 ambulatory Neymar Willingham [facility] Start: 04-08-2023 End: 04-09-2023 ambulatory PA-C Ariana Urena [facility] Start: 03-26-2023 Office outpatient vi sit 25 minutes Joe Maddox Work Phone: [facility] 250 DO Work Phone: Start: 03-26-[address] Addy Fuller Facility:[id number] Start: 03-09-2023 Rx Renewal Joe Lam Hous e Work Phone: [facility] 250 DO Work Phone: Start: 01-09-2023 End: 01-10-2023 ambulatory RAJESH JOEL [place] Start: 12-10-2022 End: 12-11-2022 ambulatory MD Ilya Bullock [facility] Start: 10-29-2022 ambulatory Emanuel Andrews Facility:1 [id number] Start: 09-18-2022 Office consultation new/estab patient 60 min Joe P House Work Phone: [facility] 250 DO Work Phone: Start: 09-18-2022 Office outpatient vi sit 25 minutes Joe P House Work Phone: [facility] 250 DO Work Phone: Start: 09-18-[address] Addy Fuller Facility: Start: 09-04-2022 End: 09-05-2022 ambulatory MD Ilya Bullock [facility] Start: 07-15-2022 End: 07-16-2022 ambulatory Ken Acosta [facility] Start: 05-22-2022 End: 05-23-[address] DOCTOR OCAMPO Facility:[facility] Start: 04-25-2022 End: 04-25-[address] JOE MADDOX Facility:[facility] Start: 04-23-2022 End: 04-24-[address] JOE MADDOX Facility:[facility] Start: 04-02-2022 End: 04-03-[address] JOE MADDOX Facility:[facility] Start: 03-19-2022 Office outpatient vi sit 25 minutes Joe P House Work Phone: [facility] 250 DO Work Phone: Start: 02-10-2022 End: 02-11-[address] JOE MADDOX Facility:[facility] Start: 12-17-2021 End: 02-19-2022 ambulatory EMANUEL TURNER Facility:[facility] Start: 12-09-2021 Transitional [facility] discharge Joe Lam [employer] Work Phone: [facility] 250 DO Work Phone: Start: 11-23-2021 End: 11-26-2021 Evaluation and management of inpatient Tamara Swanson Facility:[facility] Start: 11-23-2021 End: 11-23-2021 ambulatory [facility] Start: 10-05-2021 End: 10-05-2021 ambulatory [facility] Facility:[facility] Start: 08-08-2021 End: 08-08-2021 ambulatory Jocelyn Diaz Other [facility] Other Start: 08-08-2021 Office outpatient ne w 20 minutes Jocelyn Diaz [facility] [place] Patient encounter status Joe Lam [employer] Work Phone: [facility] 250 DO Work Phone: End: 03-26-2023 Patient encounter status Joe Lam [employer] Work Phone: [facility] 250 DO Work Phone: Procedures Date Procedure Procedure Detail Performing Clinician Start: 02-10-[address] DOCTOR OCAMPO Comment on above: Performed By: #### B CID2 #### [facility] [address] [place] [address] Dr. Troy Hickey Appendectomy Joe Lam [employer] Work Phone: Cardiac catheterization Kika les P [employer] Work Phone: Colonoscopy Joe P [employer] Work Phone: Decompression of med lenore nerve Joe P [employer] Work Phone: History of percutane ous transluminal coronary angioplasty History of PTCA Joe P [employer] Work Phone: Insertion of arterial stent Joe P [employer] Work Phone: Prosthetic arthropla sty of the hip Joe P [employer] Work Phone: Repair of shoulder Joe P [employer] Work Phone: Total replacement of hip Melissa naseem P House Work Phone: Plan of Treatment Date Care Activity Detail Author Start: 10-22-2023 FUV, Provider: Addy Fuller, Status: Pen, Time: 10:50 AM FUV, Provider: Addy Fuller, Status: Pen, Time: 10:50 AM -[facility] 250 DO Work Phone: Start: 05-27-2023 FUV, Provider: Emanuel Smalls, Status: Pen, Time: 1:30 PM FUV, Provider: Emanuel Smalls, Status: Pen, Time: 1:30 PM -[facility] 250 DO Work Phone: Start: 03-26-2023 FUV, Provider: Addy Fuller, Status: Pen, Time: 11:20 AM FUV, Provider: Addy Fuller, Status: Pen, Time: 11:20 AM -[facility] 250 DO Work Phone: Start: 10-29-2022 FUV, Provider: Emanuel Smalls, Status: Pen, Time: 1:00 PM FUV, Provider: Emanuel Smalls, Status: Pen, Time: 1:00 PM -[facility] 250 DO Work Phone: Start: 09-25-2022 FUV, Provider: Addy Fuller, Status: Pen, Time: 11:20 AM FUV, Provider: Addy Fuller, Status: Pen, Time: 11:20 AM -[facility] 250 DO Work Phone: Start: 03-19-2022 FUV, Provider: Addy Fuller, Status: Pen, Time: 10:30 AM FUV, Provider: Addy Fuller, Status: Pen, Time: 10:30 AM -[facility] 250 DO Work Phone: Immunizations Immunization Date Immunization Notes Care Provider Brandon espinoza 10-05-2021 diphtheria, tetanus toxoids and pertussis vaccine Joe Lam House Work Phone: [facility] 250 DO Work Phone: 05-20-2021 Moderna COVID-19 Vac cine 100 MCG/0.5ML Intramuscular Suspension [facility] House Work Phone: [facility] 250 DO Work Phone: 04-03-2021 Pfizer-BioNTech COVI D-19 Vacc 30 MCG/0.3ML Intramuscular Suspension [facility] House Work Phone: [facility] 250 DO Work Phone: 03-13-2021 Pfizer-BioNTech COVI D-19 Vacc 30 MCG/0.3ML Intramuscular Suspension [facility] House Work Phone: [facility] 250 DO Work Phone: 01-17-2021 Pfizer-BioNT COVID-1 9 Vac-[place] 30 MCG/0.3ML Intramuscular Suspension [facility] Work Phone: [facility] 250 DO Work Phone: Comment on above: Series: 12-18-2020 Pfizer-BioNT COVID-1 9 Vac-[place] 30 MCG/0.3ML Intramuscular Suspension [facility] Work Phone: [facility] 250 DO Work Phone: Comment on above: Series: Payers Date Payer Category Payer Medicare [id number] 2021 Self-pay 2021 Unknown [id number] 2.1 [id number] 2017 Unknown [id number] 1959 Medicaid [id number] 2. [id number] 1959 Medicare [id number] 1955 Unknown [id number] 2.16.84 0.1.146892.3.579.2.593 1955 Unknown [id number] 2.16.84 0.1.688235.3.579.2.593 1955 Unknown [id number] 2.16.84 0.1.958879.3.579.2.593 1955 Unknown [id number] 2.16.84 0.1.360453.3.579.2.593 1955 Unknown [id number] 2.16.84 0.1.060246.3.579.2.593 1955 Unknown [id number] 2.16.84 0.1.758857.3.579.2.593 1955 Unknown [id number] 2.16.84 0.1.682951.3.579.2.593 1955 Unknown [id number] 2.16.84 0.1.377534.3.579.2.593 1955 Unknown [id number] 2.16. 840.1.704803.3.579.2.356 1955 Unknown [id number] 2.16. 840.1.149591.3.579.2.356 1955 Unknown [id number] 2.16. 840.1.625496.3.579.2.356 1955 Unknown [id number] 2.16.8 40.1.344506.3.579.2.727 1955 Unknown [id number] 2.16.8 40.1.193154.3.579.2.727 1955 Unknown [id number] 2.16.8 40.1.060513.3.579.2.727 1955 Unknown [id number] 2.16.8 40.1.524177.3.579.2.727 1955 Unknown [id number] 2.16.8 40.1.189506.3.579.2.727 1955 Unknown [id number] 2.16.8 40.1.823480.3.579.2.727 1955 Unknown [id number] 2.16.8 40.1.245698.3.579.2.727 1955 Unknown [id number] 2.16.8 40.1.302656.3.579.2.727 1955 Unknown [id number] 2.16.8 40.1.055913.3.579.2.718 1955 Unknown [id number] 2.16.8 40.1.258527.3.579.2.718 1955 Unknown [id number] 2.16.8 40.1.283906.3.579.2.718 1955 Unknown [id number] 2.16.8 40.1.144983.3.579.2.718 Unknown Unknown [id number] 2.16.8 40.1.316203.3.579.2.531 Social History Date Type Detail Facility Former smoker Former smoker [facility] [place] Other Comment on above: quit as a teen; 1 daily; pop 1 daily; Sex Assigned At Sex Assigned At [facility] Telepo Other Clinical Notes 08-08-2021 to 09-07-2023 Note Date & Type Note Facility 09-07-2023 Note Entered by ADRIANO MADDOX DO on September 07, 2023 07:40:54 EST From: JOE MADDOX DO To: [facility]/pharmacy #[id number] Sent: 09/07/2023 07:40:54 EST Subject: Medication Management Submitted: Complete:valsartan (valsartan 160 mg oral tablet) Signed by JOE MADDOX DO 09/07/2023 07:40:00 EST Approved with modifications: valsartan (VALSARTAN 160 MG TABLET) TAKE 1 TABLET BY MOUTH EVERY DAY Qty: 90 tab(s) Days Supply: 90 Refills: 1 Substitutions Allowed Route To Pharmacy - [facility]/pharmacy #[id number] --- From: [facility] STORE [id number] To: JOE MADDOX DO Sent: September 03, 2023 11:17:15 PM [employer] Subject: Medication Management Due: September 04, 2023 12:08:50 AM [employer] On Hold Pending Signature Dispensed Drug: valsartan (valsartan 160 mg oral tablet), TAKE 1 TABLET BY MOUTH EVERY DAY Quantity: 90 tab(s) Days Supply: 90 Refills: 1 Substitutions Allowed Notes from Pharmacy: --- [facility] 09-03-2023 Note Entered by ADRIANO MADDOX DO on September 03, 2023 07:30:22 EST From: JOE MADDOX DO [id number] Sent[facility] 09/03/2023 07:30:21 EST Subject: Medication Management Submitted: Complete:atorvastatin (atorvastatin 80 mg oral tablet) Signed by JOE MADDOX DO 09/03/2023 07:30:00 EST Approved with modifications: atorvastatin (ATORVASTATIN 80 MG TABLET) TAKE 1 TABLET BY MOUTH EVERY DAY Qty: 90 tab(s) Days Supply: 90 Refills: 1 Substitutions Allowed Route To Pharmacy - [facility]/pharmacy #[id number] --- From: [facility] STORE [id number] To: JOE MADDOX DO Sent: September 02, 2023 11:17:42 PM [employer] Subject: Medication Management Due: September 03, 2023 12:14:24 AM [employer] 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 06-25-2023 Note [id number] 0#1.00TIFF [facility] 06-08-2023 Note Entered by ADRIANO MADDOX DO on June 08, 2023 07:47:25 EST From: JOE MADDOX DO To: [facility]/pharmacy #[id number] Sent: 06/08/2023 07:47:25 EST Subject: Medication Management Submitted: Complete:traZODone (traZODone 50 mg oral tablet) Signed by JOE MADDOX DO 06/08/2023 07:47:00 EST Approved with modifications: traZODone (TRAZODONE 50 MG TABLET) TAKE 1 TABLET BY MOUTH EVERYDAY AT BEDTIME Qty: 90 tab(s) Days Supply: 90 Refills: 1 Substitutions Allowed Route To Pharmacy - [facility]/pharmacy #[id number] --- From: [facility] STORE [id number] To: JOE MADDOX DO Sent: June 07, 2023 8:05:13 PM [employer] Subject: Medication Management Due: June 08, 2023 12:24:48 AM [employer] On Hold Pending Signature Dispensed Drug: traZODone (traZODone 50 mg oral tablet), TAKE 1 TABLET BY MOUTH EVERYDAY AT BEDTIME Quantity: 90 tab(s) Days Supply: 90 Refills: 0 Substitutions Allowed Notes from Pharmacy: --- [facility] 05-19-2023 Note [id number] 74#1.00TIFF [facility] 12-10-2022 Note Procedure: Interlami pennie lumbar epidural [...] guidance. The epidural space was identified via [id number] to air. Proper needle position was confirmed [...] to the recovery room in good condition. [facility] Comment on above: Result Comment: Elec tronically Signed By: Ara FARFAN, Ilya\.br\Date and Time Signed: 12/10/22 15:40 EDT 12-10-2022 Note [id number] 7#1.00CD:127 [facility] 09-06-2022 Note HOSPITAL REGULATIONS : All Positive [...] with his symptoms. I also reviewed an [place] Automated Rx Report on him which appeared [...] We will need to check with his senior ecologist to see if or when Effient can [...] in total. Ilya Bullock M.D. Dictated: 09/04/2022 [id number] Transcribed: 09/05/2022 cc:Joe Maddox D.O. [facility] Comment on above: Result Comment: Elec tronically Signed By: Ara FARFAN, Ilya\.br\Date and Time Signed: 09/06/22 20:14 EST 04-02-2022 Note PROCEDURE: XR HIP LT 2 [...] authenticated by: JEAN-PAUL SALAS Date: 2022-04-02 15:09 [facility] 08-08-2021 Evaluation note Encounter Date Diagnosis Assessment [...] Patient care instructions given in writting by [facility] Home document. Telepo Other History general Narrative - Reported* Type Description Date Medical History restless leg syndrome Medical History hypertension Medical History Arthritis Surgical History appendectomy Surgical History colonoscopy Surgical History wisdom teeth extract Surgical History hip replacement Surgical History right shoulder arthritis remova l Surgical History carpal tunnel Telepo Other History of Present illness Narrative* The patient states he has been generally doing well since the last visit. Comorbid Illnesses: hypertension and hyperlipidemia. * Symptoms: denies chest pain at rest, resolved exertional chest pain, denies dyspnea, improved fatigue, improved exercise intolerance, denies palpitations, denies edema, denies orthopnea, denies dizziness and denies orthostatic dizziness. * Associated symptoms: no syncope. * His symptoms do not limit his activities. * Disease Monitoring: The patient has had a stable weight. * Medications: the patient is adherent with his medication regimen. He denies medication side effects. -[facility] 250 DO Work Phone: Chief Complaint Feeling [...] of this year he sustained non-ST elevation SC with subsequent revascularization of the LAD and [...] of this year he sustained non-ST elevation SC with subsequent revascularization of the LAD and [...] follow-up otherwise in 1 year * BARRY DENICE is being seen for a 6 month [...] In November 2021 he underwent non-ST elevation SC with primary revascularization of the LAD diagonal branch performed by Dr. Elieser Landers, utilizing a 2.5 x 34 mm [place] stent to the distal LAD, 2.75 x 18 mm Paco stent in the mid LAD, and a 2.25 x 18 mm [place] stent to the diagonal branch at the [...] In November 2021 he underwent non-ST elevation SC with primary revascularization of the LAD diagonal branch performed by Dr. Elieser Landers, utilizing a 2.5 x 34 mm Paco stent to the distal LAD, 2.75 x 18 mm [place] stent in the mid LAD, and a [...] section and content) DATE CREATED AUTHOR 06/19/2022 [facility] DATE CREATED AUTHOR AUTHOR'S ORGANIZ ATION 08/23/[address] [facility] DATE CREATED AUTHOR AUTHOR'S ORGANIZ ATION 03/27/2023 [facility] DATE CREATED AUTHOR AUTHOR'S ORGANIZ ATION 03/27/2023 [employer] DATE CREATED AUTHOR AUTHOR'S ORGANIZ ATION 06/27/2023 [facility] DATE CREATED AUTHOR AUTHOR'S ORGANIZ ATION 09/07/2023 [facility] FOR RECORDS PERTAINING TO PATIENTS WHO ARE [...] BE BASED ON THE PRIMARY CLINICAL RECORDS. [employer] provides no warranty or guarantee of the accuracy or completeness of information in this document.
[2023-09-22 16:35] VITALS: BP 161/72; PULSE 71; RESP 18; TEMP 37; O2SAT 97; BMI 34.9
--- NOTE | 2023-09-22 16:47 | ED.GENADUL1 ---
HPI - General Adult General Chief complaint: Skin/Abscess/Foreign Body Stated complaint: Chicken bone stuck in throat Time Seen by Provider: 09/22/23 16:41 Source: patient Mode of arrival: walk-in Limitations: no limitations History of Present Illness HPI narrative: Patient is a 68-year-old male who presents to the emergency department for the evaluation of pain in the throat after eating fried chicken, he believes there is a chicken bone stuck in his throat. He is able to speak and swallow without difficulty but states when he swallows, he has pain in the right side of the throat radiating to the right ear. He has not had any bloody sputum, vomiting, wheezing or difficulty breathing. No medications taken prior to arrival. Patient takes Plavix, he states he had a heart attack 2 years ago and has [address]. Related Data Home Medications Medication Instructions Recorded Confirmed albuterol sulfate 90 mcg/actuation 2 puff inhalation Q8H PRN 09/22/23 09/22/23 aerosol inhaler shortness of breath or wheezing atorvastatin 80 mg tablet 80 mg PO DAILY 09/22/23 09/22/23 clopidogrel 75 mg tablet 75 mg PO QDAY 09/22/23 09/22/23 gabapentin 600 mg tablet 1,200 mg PO Q8H 09/22/23 09/22/23 metoprolol succinate 25 mg 25 mg PO DAILY 09/22/23 09/22/23 tablet,extended release 24 hr tramadol 50 mg tablet 50 mg PO DAILY 09/22/23 09/22/23 valsartan 160 mg tablet 160 mg PO DAILY 09/22/23 09/22/23 Allergies Allergy/AdvReac Type Severity Reaction Status Date / Time No Known Drug Allergies Allergy Verified 09/22/23 16:30 Review of Systems ROS Constitutional Denies: fever or chills Ears, nose, mouth, and throat Denies: throat pain or nasal congestion Respiratory Denies: shortness of breath Gastrointestinal Denies: nausea or vomiting Integumentary/Breast Denies: rash Neurological Denies: headache Hematologic/Lymphatic Denies: easy bruising or easy bleeding PFSH PFSH Social History Smoking status: Never smoker Exam Narrative Exam Narrative: Gen.: Awake, alert, in no distress Head: Normocephalic, atraumatic ENT: Moist mucous membranes, Airway widely open and patent with clear speech, no trismus or drooling. Respiratory: No respiratory distress, lungs clear bilaterally Cardio: Regular rate and rhythm Extremities: Moves extremities equally Psych: Normal mood and affect Neuro: No focal neuro deficit Skin: Warm, dry, intact Constitutional Vital Signs, click to edit/add: Last Vital Signs Temp 98.6 F 09/22/23 16:35 Pulse 66 09/22/23 18:17 Resp 16 09/22/23 18:17 BP 136/65 09/22/23 18:17 Pulse Ox 98 09/22/23 18:17 O2 Del Method Room Air 09/22/23 17:14 Course Vital Signs Vital signs: Vital Signs Temperature 98.6 F 09/22/23 16:35 Pulse Rate 71 09/22/23 16:35 Respiratory Rate 18 09/22/23 16:35 Blood Pressure 161/72 H 09/22/23 16:35 Pulse Oximetry 97 09/22/23 16:35 Oxygen Delivery Method Room Air 09/22/23 16:35 Temperature 98.6 F 09/22/23 16:35 Pulse Rate 66 09/22/23 18:17 Respiratory Rate 16 09/22/23 18:17 Blood Pressure 136/65 09/22/23 18:17 Pulse Oximetry 98 09/22/23 18:17 Oxygen Delivery Method Room Air 09/22/23 17:14 Medical Decision Making MDM Narrative Medical decision making narrative: Patient was given a GI cocktail and sent for CT of the soft tissue of the neck without contrast. This shows a 3.7 cm lucency consistent with a chicken bone in the proximal esophagus. I discussed this with Dr. Castaneda for general surgery who requested the patient be transferred out as he feels that we do not have the appropriate equipment for this patient. Case was discussed with Dr. Costa GI service at [facility] who requested the patient be transferred to [facility] to the hospitalist service, patient is stable at this time. He is hemodynamically stable, no evidence of airway compromise. Patient was accepted by Dr. Baker for the hospitalist service. He was given additional HurriCaine spray to improve his comfort. Critical care time 35 minutes. Medical Records Medical records reviewed: Yes I reviewed the patient's medical records Lab Data Lab results reviewed: Yes I reviewed the patient's lab results Labs: Lab Results 09/22/23 Range/Units 18:12 WBC 12.6 H (4.0-11.0) 10^3/uL RBC 4.32 L (4.70-6.10) 10^6/uL Hgb 11.4 L (14.0-18.0) g/dL Hct 36.8 L (42.0-54.0) % MCV 85.2 (80.0-94.0) fL MCH 26.4 (25.9-34.0) pg MCHC 31.0 (29.9-35.2) g/dL RDW 13.2 (11.0-15.0) % Plt Count 248 (150-450) 10^3/uL MPV 9.0 L (9.5-13.5) fL Neut % (Auto) 82.9 H (43.0-75.0) % Lymph % (Auto) 12.1 L (20.5-60.0) % [place] % (Auto) 4.0 (1.7-12.0) % Eos % (Auto) 0.2 L (0.9-7.0) % Baso % (Auto) 0.3 (0.2-2.0) % Neut # (Auto) 10.5 H (1.4-6.5) 10^3/uL Lymph # (Auto) 1.5 (1.2-3.8) 10^3/uL [place] # (Auto) 0.5 (0.3-0.8) 10^3/uL Eos # (Auto) 0.0 (0.0-0.7) 10^3/uL Baso # (Auto) 0.0 (0.0-0.1) 10^3/uL Abs Immat Gran (auto) 0.06 H (0.00-0.03) 10^3/uL Imm/Tot Granulo (auto) 0.5 (0.0-0.5) % PT 10.9 (9.0-11.6) sec INR 1.03 Sodium 137 (136-145) mmol/L Potassium 4.3 (3.5-5.1) mmol/L Chloride 103 (98-107) mmol/L Carbon Dioxide 33.1 H (21.0-32.0) mmol/L Anion Gap 5.2 BUN 19.0 H (7.0-18.0) mg/dL Creatinine 0.88 (0.70-1.30) mg/dL Est GFR ( Amer) >60 (>=60) Est GFR (Non-Af Amer) >60 (>=60) BUN/Creatinine Ratio 21.6 Glucose 154 H (74-106) mg/dL Calcium 8.9 (8.5-10.1) mg/dL Total Bilirubin 0.4 (0.2-1.0) mg/dL AST 12 L (15-37) U/L ALT 17 (16-63) U/L Alkaline Phosphatase 127 H (46-116) U/L Total Protein 7.8 (6.4-8.2) g/dL Albumin 3.3 L (3.4-5.0) g/dL Globulin 4.5 g/dL Albumin/Globulin Ratio 0.[address] soft tissue: Attestation: I have reviewed the pertinent imaging results. Radiologist's impression: ITS Impressions Soft Tissue Neck CT 09/22/23 16:59 IMPRESSION: Findings are consistent with a 3.7 cm linear chicken bone in the proximal esophagus. No obvious esophageal perforation. Electronically authenticated by: BRAD MARTIN Date: 09/22/2023 17:23 Discharge Plan Discharge Chief Complaint: Skin/Abscess/Foreign Body Clinical Impression: Foreign body of esophagus Patient Disposition: [facility] Time of Disposition Decision: 20:02 Discharge location: [facility] Condition: Good Mode of Transportation: EMS Prescriptions / Home Meds: No Action albuterol sulfate 90 mcg/actuation HFA aerosol inhaler 2 puff INHALATION Q8H PRN (Reason: shortness of breath or wheezing) atorvastatin 80 mg tablet 80 mg PO DAILY clopidogrel 75 mg tablet 75 mg PO QDAY gabapentin 600 mg tablet 1,200 mg PO Q8H metoprolol succinate 25 mg tablet extended release 24 hr 25 mg PO DAILY tramadol 50 mg tablet 50 mg PO DAILY valsartan 160 mg tablet 160 mg PO DAILY Referrals: QIANA MADDOX [Primary Care Provider] - 1 week
--- NOTE | 2023-09-22 16:59 | CT_ITS ---
The [address] [address] Patient Name: ZACHERY GALDAMEZ MRN: [id number] date: 1955 Sex: M Assigned Patient Location: ER Current Patient Location: ER Accession/Order Number: [id number] Exam Date: 09/22/2023 16:55 Report Date: 09/22/2023 17:23 At the request of: HALIE SOLIZ Procedure: CT soft tissue neck wo con CT SOFT TISSUE NECK WITHOUT IV CONTRAST. INDICATION: chicken bone stuck COMPARISON:None. TECHNIQUE: CT soft tissue neck without IV contrast. Sagittal and coronal reformats were obtained. FINDINGS: INTRACRANIAL CONTENTS: No mass or hemorrhage. PARANASAL SINUSES: Paranasal sinuses are clear. SALIVARY GLANDS: Normal. SUBCUTANEOUS/SOFT TISSUES: No acute abnormality. MASTOID AIR CELLS: Clear. EXTERNAL/MIDDLE AIR CAVITIES: Clear.l ORAL CAVITY: No periapical lucency. No inflammation or abscess. MUCOSA: There is a linear calcified structure within the proximal esophagus spanning the C7 and T1 levels which measures approximately 3.2 cm in craniocaudal dimension. The distal aspect of the bone is angulated towards the right. No obvious esophageal perforation.. PARAPHARYNGEAL/RETROPHARYNGEAL SPACES: Clear. No inflammation or fluid collection. LYMPH NODES: No enlarged cervical lymph nodes by CT criteria. THYROID: No mass. UPPER LUNGS: Clear. MUSCULOSKELETAL: No acute osseous abnormality.. CT/CT soft tissue neck wo con IMPRESSION: Findings are consistent with a 3.7 cm linear chicken bone in the proximal esophagus. No obvious esophageal perforation. Electronically authenticated by: BRAD MARTIN Date: 09/22/2023 17:23
[2023-09-22] MEDS: lidocaine HCL 15 ML, MAG HYDROX/ALUMINUM HYD/SIMETH 30 ML, HYOSCYAMINE SULFATE 0.25 MG PO (17:08)
[2023-09-22 17:13] VITALS: BP 134/60
[2023-09-22 18:17] VITALS: BP 136/65; PULSE 66; RESP 16; O2SAT 98
[2023-09-22 18:31] LABS: Basophils Percent Auto 0.3 % (0.2-2.0); Eosinophils Percent Auto 0.2 % (0.9-7.0); Hematocrit 36.8 % (42.0-54.0); Hemoglobin 11.4 g/dL (14.0-18.0); Immature Granulocytes Abs Auto 0.06 10^3/uL (0.00-0.03); Immature Granulocytes Pct Auto 0.5 % (0.0-0.5); Lymphocytes Absolute Auto 1.5 10^3/uL (1.2-3.8); Lymphocytes Percent Auto 12.1 % (20.5-60.0); Mean Corpuscular Hemoglobin 26.4 pg (25.9-34.0); Mean Corpuscular Volume 85.2 fL (80.0-94.0); Monocytes Absolute Auto 0.5 10^3/uL (0.3-0.8); Neutrophils Absolute Auto 10.5 10^3/uL (1.4-6.5); Neutrophils Percent Auto 82.9 % (43.0-75.0); Platelet Count 248 10^3/uL (150-450); Red Blood Count 4.32 10^6/uL (4.70-6.10); Red Cell Distribution Width 13.2 % (11.0-15.0); White Blood Count 12.6 10^3/uL (4.0-11.0)
[2023-09-22 18:39] LABS: INR 1.03; Prothrombin Time 10.9 sec (9.0-11.6)
[2023-09-22 18:42] LABS: Alanine Aminotransferase 17 U/L (16-63); Albumin Globulin Ratio 0.7; Albumin Level 3.3 g/dL (3.4-5.0); Alkaline Phosphatase 127 U/L (46-116); Anion Gap 5.2; Aspartate Amino Transferase 12 U/L (15-37); BUN Creatinine Ratio 21.6; Bilirubin Total 0.4 mg/dL (0.2-1.0); Calcium 8.9 mg/dL (8.5-10.1); Carbon Dioxide 33.1 mmol/L (21.0-32.0); Chloride 103 mmol/L (98-107); Estimated GFR (African America >60 (>=60); Estimated GFR (Non-African Ame >60 (>=60); Globulin 4.5 g/dL; Glucose 154 mg/dL (74-106); Potassium 4.3 mmol/L (3.5-5.1); Sodium 137 mmol/L (136-145); Total Protein 7.8 g/dL (6.4-8.2)
[2023-09-22] MEDS: BENZOCAINE 20% SPRAY 57 GM SPRAY CAN TOPICAL (20:49)
[2023-09-22 22:22] VITALS: BP 131/69; PULSE 57; RESP 16; TEMP 37.1; O2SAT 98
== END 2023-09-22 22:39 | disposition short-term general hospital (02) ==
PROVIDERS: Physician Assistant; Emergency Provider Student in an Organized Health Care Education/Training Program; PCP Family Medicine
DX: T18.128A Food in esophagus causing other injury, initial encounter (principal); W44.F3XA Food entering into or through a natural orifice, initial encounter; Z79.02 Long term (current) use of antithrombotics/antiplatelets; I25.2 Old myocardial infarction
CPT/HCPCS: 36415; 70490; 80053; 85025; 85610; 99285

== ENCOUNTER 2023-09-29 21:27 | Emergency (ER) | payer MEDICARE, MEDICAID, SELFPAY ==
[2023-09-29 21:31] VITALS: BP 124/79; PULSE 97; RESP 20; TEMP 36.7; O2SAT 98; BMI 34.9
[2023-09-29 21:36] VITALS: O2SAT 99
[2023-09-29 21:40] VITALS: RESP 12; O2SAT 99
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
--- NOTE | 2023-09-29 21:43 | ECG_ITS ---
The [facility] Test Date: 2023-09-29 Pat Name: ZACHERY GALDAMEZ Department: Room: - Gender: Male [employer] Professor: : 1955 Requested By: 1031 Order Number: [id number] Reading MD: JET BENITES Measurements Intervals [place] Rate: 89 P: 67 SD: 158 QRS: 11 QRSD: 156 T: 46 QT: 394 QTc: 440 Interpretive Statements 1100 Sinus rhythm 2450 Right bundle branch block with secondary ST/T wave changes Small, nondiagnostic Q waves inferolateral leads 9150 abnormal ECG Electronically Signed On 09-30-2023 6:45:52 EDT by JET BENITES
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
--- OUTSIDE RECORDS SUMMARY | 2023-09-29 21:45 | XMS_ITS | CCD ---
Author Name Unknown Address [address] [place] [address] Organization [facility] Care Team Providers Care Print And Pattern Designer Name Role Phone Joe Maddox Unavailable Unavailable Unavailable Jocelyn Diaz Unavailable MIS, DR WEATHERS Admitting Unavailable [facility], DR WEATHERS Attending Unavailable CAMERON, DR KIRAN Primary Care Unavailable [place], DR NATACHA Campoverde Consulting Unavailable [facility], DR WEATHERS Consulting Unavailable CAMERON, DR KIRAN Admitting Unavailable CAMERON, DR KIRAN Attending Unavailable CAMERON, DR KIRAN Referring Unavailable [facility] Primary Care Unavaila ble HOUSE, DR KIRAN Consulting Unavailable CAMERON, DR KIRAN Admitting Unavailable CAMERON, DR KIRAN Attending Unavailable CAMERON, DR KIRAN Primary Care Unavailable CAMERON, DR KIRAN Consulting Unavailable MARITZA, DR JEAN-PAUL Mccann Consulting Unavailable HOUSE, DR KIRAN Admitting Unavailable HOUSE, DR KIRAN Attending Unavailable HOUSE, DR KIRAN Primary Care Unavailable CAMERON, DR KIRAN Consulting Unavailable MARITZA, DR JEAN-PAUL Mccann Consulting Unavailable JOHNNY, EMANUEL Admitting Unavailable JOHNNY, EMANUEL Attending Unavailable JONNY, DR ADDY Davis Consulting Unavailabl e HOUSE, DR KIRAN Primary Care Unavailable JOHNNY, EMANUEL Consulting Unavailable HOUSE, DR KIRAN Primary Care Unavailable JAYCOB, DR CABEZAS Admitting Unavailable HAY, DR CABEZAS Attending Unavailable HAY, DR CABEZAS Consulting Unavailable RHIANNA, SANDER Consulting Unavailable [facility] Primary Care Unavaila ble PAY, DR KOTHARI Admitting Unavailable PAY, DR KOTHARI Attending Unavailable PAY, DR KOTHARI Consulting Unavailable ANAND, LINDA Consulting Unavailable [facility] Primary Care Unavaila ble JAMSHID SOLIZ Consulting Unavailable BHARGAV, DR ELIESER De La Cruz Admitting Unavailabl e BHARGAV, DR ELIESER De La Cruz Attending Unavailabl e STRAWSER, ABRAN Consulting Unavailable Mischler, Tamara Consulting Unavailable Maya Collins Admitting Unavailab Merline Alvarenga Attending Unavailable Joe Maddox Primary Care Unavailable Sol Fuller Consulting Unavailable Sundar Cronin Consulting Unavailable Addy Glass Consulting Unavail able Maribell Rivas Consulting Unavailable Joe Delatorre Consulting Unavailab Emanuel Miller Consulting Unavailable BasurtoBebe jose Consulting Unavailable Nirmal, Van Najeeb Consulting Unavailab christopher Tilley Tarek Consulting Unavailable Jonny, Dr. Addy Cartagena Referring Unava ilable Varsha, Dr. Joe Brown Primary Care Unava ilable Jonny, Dr. Addy Cartagena Attending Unava ilable Darryl, Emanuel Attending Unavailable Emanuel Andrews Referring Unavailable Varsha, Dr. Joe Brown Primary Care Mounava martinez Fuller, Dr. Addy Cartagena Attending Mounava martinez Fuller, Dr. Addy Cartagena Referring Unava ilable Varsha, Dr. Joe Brown Primary Care Unava ilAriana Ca Attending Unavailable CLAUDE Urena Admitting Unavailabl e VARSHA, JOE Carole Referring Unavailable RAJESH JOEL Referring Unavailable Ariana Urena Attending Unavailable CLAUDE Urena Admitting Unavailabl e HOUSE, JOE P Referring Unavailable Ariana Urena Attending Unavailable CLAUDE Urena Admitting Unavailabl MD Neymar Gonzáles Admitting Unavailable Neymar Willingham Attending Unavailable Neymar Willingham Referring Unavailable MD Ilya Bullock Admitting Unavailable Ilya Bullock Attending Unavailable Ilya Bullock Referring Unavailable MD Neymar Willingham Admitting Unavailable Neymar Willingham Attending Unavailable Neymar Willingham Referring Unavailable Jaqui Biswas Attending Unavaila Neel Fulton Attending Unavailable Erwin VALADEZ Admitting Unavailable Hui Costa Consulting Unavailable Hui Costa Consulting Unavailable Hui Costa Consulting Unavailable Hui Costa Consulting Unavailable Ariana Urena Attending Unavailable CLAUDE Urena Admitting Unavailabl e HOUSE, JOE P Referring Unavailable Gibran Barker MD Attending Unavailable VARSHA, JOE P Primary Care Unavailable VARSHA, JOE P Primary Care Unavailable VARSHA, JOE P Attending Unavailable VARSHA, JOE P Admitting Unavailable HOUSE, JOE P Primary Care Unavailable VARSHA, JOE Lam Attending Unavailable Gibran Barker MD Attending Unavailable JOE MADDOX Primary Care Unavailable JOE MADDOX Primary Care Unavailable Mj FARFAN, Gibran De La Cruz Attending Unavailable HOUSE, JOE Lam Primary Care Unavailable VARSHA, JOE Lam Attending Unavailable Allergies Allergy Classification Reported Allergen(s) Allergy Type Date of Onset Reaction(s) Facility (8 sources) Aspirin; Translations: [aspirin] Drug Allergy Other -[facility] 250 DO Work Phone: (1 source) gabapentin; Translations: [gabapentin] Drug Allergy [facility] Repository Medications Current Medications Medication Drug Class(es) Dates Sig (Normalized) Sig (Original) [id number] 200 actuat albuterol 0.09 mg/actuat metered dose [...] oral tablet (9 sources) Angiotensin 2 Receptor Svetlaan Start: 3 take 1 tablet by mouth once daily [...] sources) Coronary atherosclerosis; Translations: [Coronary atherosclerosis of [place] coronary artery] Onset: 12-17-2021 Chronic Diseases of [...] fatigue] Episodic Other aftercare (1 source) Other detention (current) drug therapy; Translations: [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 Name: BARRY GALDAMEZ Tomeka GauthierB./Sex: 1955 Male Med Rec #: [id number] Physician: Erwin VALADEZ DO Financial #: [id number] Pt. Type: O Room/Bed: [place] [address] Admit/Disch: 09/22/23 20:07:00 - 09/23/23 14:55:00 Institution: Case Times FT Entry 1 Patient Times In Room 09/23/23 08:53:00 Out Room 09/23/23 09:04:00 Procedure Times Start 09/23/23 08:58:00 Stop 09/23/23 09:02:00 Anesthesia Times Start 09/23/23 08:53:00 Stop 09/23/23 09:04:00 Last Modified By: Triny TREVIZO, Corrina Pulido 09/23/23 09:04:40 General Comments: 09/25/23 Chart opened to review and send charges LRoth CSFA Case Attendance FT Entry 1 Entry 2 Entry 3 Case Attendee Igor FARFAN, Hui Agosto RN, Corrina Tyler PORTABLE MACHINE CUTTER, Aurora Cabrera Role Performed Surgeon - Primary Onion Topper - Primary PORTABLE MACHINE CUTTER Time In 09/23/23 08:53:00 09/23/23 08:53:00 09/23/23 08:53:00 Time Out 09/23/23 09:04:00 09/23/23 09:04:00 09/23/23 09:04:00 Procedure EGD(.) EGD(.) EGD(.) Comments Dr. Shaw supervising case Last Modified By: Triny RN, Corrina Agotso RN, Corrina Agosto RN, Corrina F 09/23/23 09:04:40 F 09/23/23 09:04:40 F 09/23/23 09:04:40 Entry 4 Entry 5 Case Attendee Wei Alonzo Kirstyn K Role Performed Scrub - Primary Staff - Other Time In 09/23/23 08:53:00 09/23/23 08:53:00 Time Out 09/23/23 09:04:00 09/23/23 09:04:00 Procedure EGD(.) EGD(.) Comments help in room Last Modified By: Corrina Agosto RN, RN, Madaline F 09/23/23 09:04:40 F 09/23/23 09:04:40 Perioperative Protocols FT Pre-Care Text: Implements protective measures prior to operative or invasive procedure, confirms identity before the operative or invasive procedure, verifies operative procedure, surgical site, and laterality Entry 1 Procedure(s) EGD(.) Patient Identity Birthday, ID Band Verified (select at Check, Patient least 2): Participation Consents / H and P Anesthesia Consent, Operative Site N/A Verified HandP, Surgery/Procedure Marking Verified Consent Surgical Site No Laterality Verified n/a Verified Procedure Verified Yes Correct Patient Yes Position Verified Availability Equipment, Medication Prep Dry n/a Verified (If Applicable) PreOp Antibiotic No Time Out Igor FARFAN, Hui Pineda, Given Participants Triny TREVIZO, Jayson Trivedi CRNA, Brandy J., Sparks, Micala E, Miles, Kirstyn K Time Out Complete 09/23/23 08:55:00 Outcomes Met? Yes Last Modified By: Corrina Agosto RN 09/23/23 08:58:39 Post-Care Text: The patient is free from signs and symptoms of injury caused by extraneous objects Allergy Information FT Pre-Care Text: Verifies allergies Entry 1 Allergies Reviewed? Yes Allergies Reviewed Self/Patient With Outcomes Met? Yes Last Modified By: Corrina Agosto RN 09/23/23 08:58:43 Post-Care Text: The patient received appropriate medication(s) safely administered during the perioperative period Surgical Procedures FT Entry 1 Procedure Description Procedure EGD Modifiers . Surgeon Description EGD with foreign body removal using cold snare. Primary Procedure Yes Primary Surgeon Hui Costa MD Start 09/23/23 08:58:00 Stop 09/23/23 09:02:00 Anesthesia Type General Surgical Service Gastroenterology Wound Class 2 - Clean-Contaminated Last Modified By: Corrina Agosto RN 09/23/23 09:02:34 General Case Data FT Pre-Care Text: Classifies surgical wound, implements aseptic technique, initiates traffic control Entry 1 Case Information OR ENDO 1 FT Case Level Level 2 Wound Class 2 - Clean-Contaminated Specialty Gastroenterology ASA Class 3 Preop Diagnosis Foreign body Postop Same As Preop Yes Postop Diagnosis Foreign body Outcomes Met? Yes Last Modified By: Corrina Agosto RN 09/23/23 09:02:32 Post-Care Text: The patient is free from signs and symptoms of infection Skin Assessment (Pre Procedure) FT Pre-Care Text: Implements protective measures to prevent skin/ tissue injury due to thermal or mechanical sources Evaluates for signs and symptoms of physical injury to skin and tissue Entry 1 Skin Integrity Intact, Hen[place], Warm, and Skin Abnormality No Dry Outcomes Met? Yes Last Modified By: Corrina Agosto RN 09/23/23 09:00:05 Post-Care Text: The patient is free from signs and symptoms of injury caused by extraneous objects Patient Positioning FT Pre-Care Text: Identifies physical alterations that require additional precautions for procedure-specific positioning, verifies presence of prosthetics or corrective devices, positions the patient, evaluates the patient for signs and symptoms of injury as a result of positioning Entry 1 Procedure EGD(.) Body Position Lateral, right side up Feet Uncrossed? Yes Left Arm Position Resting at Side Right Arm Po (more content not included)... Normal [facility] Progress Note-Physicianon Progress Note-Physician Patient: BARRY GALDAMEZ Age: 68 years Sex: Male : 1955 Associated Diagnoses: None Author: Chad Shaw Jr, DO Preoperative Information Anesthesia Preop Info: Time patient last ate or drank 09/23/2023 00:00:00. Anesthesia history: Patient history: None. Family history+: None. Informed consent: Signed by patient. Re-evaluation prior to induction: Initial evaluation reviewed: No significant change. Review of Systems Eye: Negative except as documented in history of present illness. Ear/Nose/Mouth/Throat: Negative except as documented in history of present illness. Respiratory: Negative except as documented in history of present illness. Cardiovascular: Negative except as documented in history of present illness. Musculoskeletal: Negative except as documented in history of present illness. Neurologic: Negative except as documented in history of present illness. Health Status Allergies: Allergic Reactions (Selected) No Known Allergies Problem list: All Problems Weak urine stream / SNOMED CT 663494555 / Confirmed Screening PSA (prostate specific antigen) / SNOMED CT 210912336 / Confirmed Osteoarthritis / SNOMED CT 9869563681 / Confirmed Nocturia / SNOMED CT 101644578 / Confirmed Impingement syndrome of right shoulder / SNOMED CT 864731925 / Confirmed HTN (hypertension) / SNOMED CT 0633602860 / Confirmed Hypertension / SNOMED CT 3222022026 / Confirmed Erectile dysfunction / SNOMED CT 4235957922 / Confirmed Depression / SNOMED CT 51763522 / Confirmed Carpal tunnel syndrome of right wrist / SNOMED CT 95138698 / Confirmed Asymptomatic microscopic hematuria / SNOMED CT 6791898863 / Confirmed Asthma / SNOMED CT 543029561 / Confirmed Arthritis / SNOMED CT 9974324 / Confirmed Hip pain, left / SNOMED CT 0434991761 / Confirmed DJD Resolved: At risk for falls / SNOMED CT 312948450 Problem added when Risk for Falls Careplan was initiated. Resolved due to patient discharge. Histories Procedure history: Left L4/5 Transforaminal Epidural Steroid Injections (3689151223) on 06/25/2023 at 67 Years. Comments: 07/31/2023 10:10 Brianna Echeverria 10% relief L5/S1 TASHA (4736844687) on 05/19/2023 at 67 Years. Comments: 06/05/2023 11:07 Theodora Oh RN L5/S1 TASHA 70% relief L5-S1 TASHA (8881762855) on 12/10/2022 at 67 Years. Comments: 01/09/2023 13:14 Adry Saab RN L5-S1 TASHA-100% relief Arthroscopy of shoulder (882994853) on 04/13/2018 at 62 Years. Comments: 04/13/2018 14:52 Marti Trinidad RN right .distal claviculectomy .extensive debridement ,subacromial decompression. Carpal tunnel release (890443316) on 04/13/2018 at 62 Years. Comments: 04/13/2018 14:52 Marti Trinidad RN right Hip arthroplasty (103377069) on 09/29/2017 at 62 Years. Comments: 09/29/2017 14:17 Imelda Palencia RN left Left hip arthrogram on 12/03/2016 at 61 Years. Appendectomy; (76647). Colonoscopy (366331926). Tooth extraction, complete mouth (76532253). Stent (680691849). Comments: 09/04/2022 14:42 EST - Anam TREVIZO, Jennifer Eckert cardiac Social History Social & Psychosocial Habits Alcohol 07/31/2023 Risk Assessment: Denies Alcohol Use Substance Abuse 07/31/2023 Risk Assessment: Denies Substance Abuse Tobacco 07/31/2023 Risk Assessment: Denies Tobacco Use 07/31/2023 Tobacco Use: Never (less than 100 in l Smokeless tobacco use: Never 07/31/2023 Tobacco Use: Never (less than 100 in l . Physical Examination Airway: Mallampati classification: II (soft palate, fauces, uvula visible). Respiratory: adequate air exchange. Cardiovascular: Regular rhythm. Plan [place] [employer] Anesthesiologists (ASA) physical status classification: Class III. Anesthetic Preoperative Plan: Anesthesia General. [facility] Comment on above: Result Comment: Elec tronically Signed By: Chad Shaw Jr, DO\.br\Date and Time Signed: 09/25/23 13:55 EST Progress Note-Physician Patient: BARRY GALDAMEZ Age: 68 years Sex: Male : 1955 Associated Diagnoses: None Author: Chad Shaw Jr, DO Postoperative Information Postoperative disposition: Postoperative disposition: To PACU. Optimetrix number: Optimetrix number [id number]. Anesthetic utilized: General. Health Status Allergies: Allergic Reactions (Selected) No Known Allergies Physical Examination Vital Signs 09/23/2023 12:21 EST Hourly Rounding Yes Promise to Return Yes 09/23/2023 11:40 EST Hourly Rounding Yes Promise to Return Yes 09/23/2023 10:40 EST Hourly Rounding Yes Promise to Return Yes 09/23/2023 9:35 EST Heart Rate Monitored 67 bpm Respiratory Rate Monitored 21 br/min Systolic Blood Pressure 148 mmHg HI Diastolic Blood Pressure 78 mmHg SpO2 99 % 09/23/2023 9:20 EST Heart Rate Monitored 77 bpm Respiratory Rate Monitored 21 br/min Systolic Blood Pressure 149 mmHg HI Diastolic Blood Pressure 92 mmHg HI SpO2 93 % 09/23/2023 9:15 EST Heart Rate Monitored 80 bpm Respiratory Rate Monitored 11 br/min Systolic Blood Pressure 147 mmHg HI Diastolic Blood Pressure 83 mmHg SpO2 97 % 09/23/2023 9:10 EST Heart Rate Monitored 85 bpm Respiratory Rate Monitored 11 br/min Systolic Blood Pressure 148 mmHg HI Diastolic Blood Pressure 87 mmHg Hourly Rounding Yes Promise to Return Yes SpO2 98 % 09/23/2023 9:06 EST Temperature Temporal Artery 36.8 DegC Heart Rate Monitored 99 bpm Respiratory Rate Monitored 21 br/min Systolic Blood Pressure 160 mmHg HI Diastolic Blood Pressure 93 mmHg HI Blood Pressure Location Left arm Pain Assessment: Controlled. General: Awake, Alert, Appropriate. Respiratory: Adequate air exchange. Cardiovascular: Stable, Normal peripheral perfusion. Neurological: Normal sensory function, Normal motor function. Assessment Anesthetic outcome No anesthetic complications noted. Adequate pain relief. able to void without difficulty, able to ambulate with assist, tolerating PO intake, no N/V. Review / Management Condition: Stable. Plan Transfer/Discharge: Transfer/Discharge Discharge when meets criteria ( To home ). [facility] Comment on above: Result Comment: Elec tronically Signed By: Colin Childs DO, Chad Snyder\.br\Date and Time Signed: 09/25/23 13:53 EST Consenton 09-24-2023 Consent [id number] FF [facility] Facesheeton 09-24-2023 Facesheet [id number] FF [facility] Outside Recordson 09-24-2023 Outside Records [id number]#1.00OTG TIFF [facility] Outside Records [id number] FF [facility] Transfer Documentson 024 Transfer Documents [id number] FF [facility] BMPon 09-23-2023 Anion gap [Moles/Vol] 9 mmol/L Normal 6-16 [facility] Comment on above: Performed By: #### 2 807461, 32427557, 63604530, 5948505 ####[facility] [address] [place] [address] Calcium [Mass/Vol] 9.0 mg/dL Normal 8.9-11.1 [facility] Comment on above: Performed By: #### 2 163814, 33009676, 59344492, 7195827 ####[facility] [address] [place] [address] Chloride [Moles/Vol] 104 mmol/L Normal 101-111 [facility] Comment on above: Performed By: #### 2 130489, 53021679, 80377530, 1445310 ####[facility] [address] [place] [address] CO2 [Moles/Vol] 31 mmol/L Normal 21-31 [facility] Comment on above: Performed By: #### 2 005088, 27405338, 16703772, 1428350 ####[facility] [address] [place] [address] Creatinine [Mass/Vol] 0.8 mg/dL Normal 0.5-1.3 [facility] Comment on above: Performed By: #### 2 568346, 10612996, 57516479, 8971277 ####[facility] [address] [place] [address] Glucose [Mass/Vol] 96 mg/dL Normal 55-199 [facility] Comment on above: Performed By: #### 2 133685, 95916047, 93233260, 6429112 ####[facility] [address] [place] [address] Potassium [Moles/Vol] 4.4 mmol/L Normal 3.5-5.3 [facility] Comment on above: Performed By: #### 2 784875, 97673689, 84347590, 4165655 ####[facility] [address] [place] [address] Sodium [Moles/Vol] 140 mmol/L Normal 135-145 [facility] Comment on above: Performed By: #### 2 669059, 80910042, 98845532, 3323816 ####[facility] [address] [place] [address] Urea nitrogen [Mass/Vol] 21 mg/dL Normal 5-21 [facility] Comment on above: Performed By: #### 2 282983, 37631228, 69583057, 1700685 ####[facility] [address] [place] [address] Urea nitrogen/Creatinine [Mass ratio] 26 No Units High 10-20 [facility] Comment on above: Performed By: #### 2 257875, 55484031, 77473826, 3657684 ####[address] [address] CBC w/ Auto Diffon 4 Basophils/100 WBC (Bld) 0.5 % Normal 0.0-2.0 [facility] Comment on above: Performed By: #### 2 098443, 37409707, 03958882, 3917624 ####[facility] [address] [place] [address] Basophils/Leukocytes Auto (Bld) [Pure # fraction] 0.1 E9/L Normal 0.0-0.2 [facility] Comment on above: Performed By: #### 2 694091, 52083453, 43755660, 1492535 ####[address] [address] Eosinophils (Bld) [#/Vol] 0.2 E9/L Normal 0.0-0.5 [facility] Comment on above: Performed By: #### 2 855476, 65953073, 97339006, 9912780 ####[address] [address] Eosinophils/100 WBC (Bld) 1.6 % Normal 0.0-8.0 [facility] Comment on above: Performed By: #### 2 325687, 86475305, 74146617, 6072672 ####[address] [address] Erythrocyte distribution width (RBC) [Ratio] 14.2 % Normal 10.9-14.2 [facility] Comment on above: Performed By: #### 2 290683, 94702627, 44903198, 1010387 ####[facility] [address] [place] [address] Hematocrit (Bld) [Volume fraction] 34.4 % Low 37.7-49.0 [facility] Comment on above: Performed By: #### 2 715527, 01880182, 66754442, 2663495 ####[address] [address] [place] [address] Hemoglobin (Bld) [Mass/Vol] 11.3 g/dL Low 13.5-17.5 [facility] Comment on above: Performed By: #### 2 933378, 98443909, 79570283, 8494072 ####[address] [address] Lymphocytes (Bld) [#/Vol] 3.1 E9/L Normal 1.0-4.0 [facility] Comment on above: Performed By: #### 2 370264, 67633377, 36920473, 6059311 ####[facility] [address] [place] [address] Lymphocytes/100 WBC (Bld) 26.5 % Normal 14.0-50.0 [facility] Comment on above: Performed By: #### 2 282908, 76758976, 88196028, 8951422 ####[address] [address] MCH (RBC) [Entitic mass] 26.3 pg Low 27.0-34.0 [facility] Comment on above: Performed By: #### 2 669966, 01100736, 03762911, 3798182 ####[facility] [address] [place] [address] MCHC (RBC) [Mass/Vol] 32.9 g/dL Normal 31.4-36.0 [facility] Comment on above: Performed By: #### 2 563691, 62016215, 86081711, 1995467 ####[address] [address] MCV (RBC) [Entitic vol] 80.1 fL Normal 80.0-100.0 [facility] Comment on above: Performed By: #### 2 380241, 45206054, 21303454, 3934077 ####[address] [address] Monocytes (Bld) [#/Vol] 0.8 E9/L Normal 0.2-1.0 [facility] Comment on above: Performed By: #### 2 103465, 64363460, 58180041, 6833538 ####[address] [address] Neutrophils (Bld) [#/Vol] 7.7 E9/L High 2.0-7.5 [facility] Comment on above: Performed By: #### 2 574178, 62477850, 19897600, 2016267 ####[address] [address] Neutrophils/100 WBC (Bld) 64.5 % Normal 36.0-75.0 [facility] Comment on above: Performed By: #### 2 110573, 19287135, 42972333, 7805059 ####[address] [address] Platelet mean volume (Bld) [Entitic vol] 7.2 fL Normal 6.4-10.8 [facility] Comment on above: Performed By: #### 2 197792, 30897356, 54267160, 7936928 ####[address] [address] Platelets (Bld) [#/Vol] 240.0 E9/L Normal 150. 0-500. 0 [facility] Comment on above: Performed By: #### 2 814947, 14681982, 93871336, 1138211 ####[facility] [address] [place] [address] RBC (Bld) [#/Vol] 4.3 E12/L Normal 4.3-5.9 [facility] Comment on above: Performed By: #### 2 586466, 69584203, 45409000, 2781473 ####[facility] [address] [place] [address] WBC corrected for nucl RBC Auto (Bld) [#/Vol] 11.9 E9/L High 4.0-11.0 [facility] Comment on above: Performed By: #### 2 931098, 31400216, 32553291, 9102054 ####[facility] [address] [place] [address] Consultation Noteon 09-23-19 Consultation Note Patient: MANPREET GALDAMEZ Age: 68 years Sex: Male : 1955 Associated Diagnoses: None Author: Hui Costa MD Pre-Procedure Procedure Date 09/11/2023 09:18:00 . Procedure Type: Esophagogastroduodenosco py with removal of foreign body. Procedure provider Performed by Hui Costa MD. Current history and physical Documented on chart. Informed Consent After discussing the rationale, risks and benefits, and alternatives to this procedure, the patient provided signed consent for the procedure. Pre-procedure diagnosis: Abnormal imaging. Medications (Selected) Inpatient Medications Ordered Lactated Ringers IV Dilma 1000 mL 1,000 mL: 1,000 mL, IV, 100 mL/hr, Routine, Start date 09/23/23 8:21:00 EST, 10 hour(s), Total volume (mL): 1,000, 109.8 kg, 2.36, m2 NS 1000 mL Soln-IV 1,000 mL: 1,000 mL, IV, 75 mL/hr, Routine, Start date 09/23/23 1:12:00 EST, 13.3 hour(s), Total volume (mL): 1,000 Zofran 4 mg/2 mL Injection: 4 mg = 2 mL, Injection, IV Push, q6hr PRN Nausea, Routine, Start date 09/23/23 1:12:00 EST, 09/23/23 1:12:00 EST metoprolol 1 mg/mL Inj: 5 mg = 5 mL, Injection, IV Push, q4hr PRN Other (see comment), Routine, Start date 09/23/23 1:11:00 EST, 09/23/23 1:11:00 EST morphine 2 mg/mL Inj: 1 mg = 0.5 mL, Injection, IV Push, q4hr PRN Pain for 5 day(s), Stop date 09/28/23 1:14:00 EDT, Routine, Start date 09/23/23 1:15:00 EST, 09/23/23 1:15:00 EST pantoprazole 40 mg IV Inj: 40 mg = 10 mL, Injection, IV Push, Daily, Routine, Start date 09/23/23 9:00:00 EST, 09/23/23 1:11:00 EST Prescriptions Prescribed gabapentin 800 mg Tab: 1,200 mg = 1.5 tab(s), Oral, TID, X 30 day(s), # 135 tab(s), Refills(s) 1, Pharmacy: [facility]/pharmacy #[id number], 183, cm, 07/31/23 10:16:00 EST, Height/Length Dosing, 116, kg, 07/31/23 10:16:00 EST, Weight Dosing Documented Medications Documented Co Q-10: Daily, Refills(s) [...] Oral, Daily, # 30 tab(s), Refills(s) 0 ASA Classification: Class III. . Monitoring: See anesthesia record. . Procedure The procedure was performed in the hospital. See anesthesia record for sedation given during procedure. The patient was positioned starting in the left lateral decubitus position. Endoscope type used was, introduced orally, advanced to duodenum. No difficulty was encountered during the procedure. Views were excellent. The patient tolerated the procedure well. Findings Foreign body (chicken bone measuring 3.5 cm) seen in the upper esophagus at 20 cm; retrieved using cold snare Z-line irregular at 40 cm For hernia measuring 3 cm Patchy erythema with small erosions in the pyloric area consistent with erosive gastropathy. Biopsies were not obtained given history of recent Plavix intake Patchy erythema in the duodenum. No biopsies obtained Post-Procedure Complications: none. Estimated blood loss: none. Devices/ implants: none left in place. Impression and Plan EGD: Diagnosis: Esophageal foreign body (RCH42-OH T18.108A, Discharge, Medical). Course: Progressing as expected. Education and Follow-up: Counseled. Notes: Obtain H. pylori stool antigen Start PPI once daily Repeat EGD after 3 months to obtain esophageal and stomach biopsies. [facility] Comment on above: Result Comment: erro r Electronically Signed By: Hiu Costa MD\.br\Date and Time Signed: 09/23/23 09:09 JAIME White 09-23-2023 Esophagogastroduodenosc opy Patient: BARRY GALDAMEZ Age: 68 years Sex: Male : 1955 Associated Diagnoses: None Author: Hui Costa MD History of Present Illness Gastroenterology Consult 78-sbff[age]c-year-old male with past medical history of coronary disease on Plavix Admitted with food bolus impaction Was eating chicken and ate through the pollen around 3 PM yesterday Presented to [facility] and evaluated with CAT scan which showed 3.6 cm from bone in the upper esophagus No perforation seen Evaluated by surgery who recommended transfer. The patient was transferred to here for further care Was mild pain in the upper esophagus but no other significant Review of Systems Constitutional Negative except for HPI Health Status Allergies: Allergies (1) Active Severity Reaction No Known Allergies None Documented Current medications: (Selected) Inpatient Medications Ordered Lactated Ringers IV Dilma 1000 mL 1,000 mL: 1,000 mL, IV, 100 mL/hr, Routine, Start date 09/23/23 8:21:00 EST, 10 hour(s), Total volume (mL): 1,000, 109.8 kg, 2.36, m2 NS 1000 mL Soln-IV 1,000 mL: 1,000 mL, IV, 75 mL/hr, Routine, Start date 09/23/23 1:12:00 EST, 13.3 hour(s), Total volume (mL): 1,000 Zofran 4 mg/2 mL Injection: 4 mg = 2 mL, Injection, IV Push, q6hr PRN Nausea, Routine, Start date 09/23/23 1:12:00 EST, 09/23/23 1:12:00 EST metoprolol 1 mg/mL Inj: 5 mg = 5 mL, Injection, IV Push, q4hr PRN Other (see comment), Routine, Start date 09/23/23 1:11:00 EST, 09/23/23 1:11:00 EST morphine 2 mg/mL Inj: 1 mg = 0.5 mL, Injection, IV Push, q4hr PRN Pain for 5 day(s), Stop date 09/28/23 1:14:00 EDT, Routine, Start date 09/23/23 1:15:00 EST, 09/23/23 1:15:00 EST pantoprazole 40 mg IV Inj: 40 mg = 10 mL, Injection, IV Push, Daily, Routine, Start date 09/23/23 9:00:00 EST, 09/23/23 1:11:00 EST Prescriptions Prescribed gabapentin 800 mg Tab: 1,200 mg = 1.5 tab(s), Oral, TID, X 30 day(s), # 135 tab(s), Refills(s) 1, Pharmacy: [facility]/pharmacy #[id number], 183, cm, 07/31/23 10:16:00 EST, Height/Length Dosing, 116, kg, 07/31/23 10:16:00 EST, Weight Dosing Documented Medications Documented Co Q-10: Daily, Refills(s) [...] tab(s), Oral, Daily, # 30 tab(s), Refills(s) 0, Medications (6) Active Scheduled: (1) pantoprazole 40 mg IV Inj [F] 40 mg 10 mL, IV Push, Daily Continuous: (2) Lactated Ringers 1,000 mL 1,000 mL, IV, 100 mL/hr Sodium Chloride 0.9% 1,000 mL 1,000 mL, IV, 75 mL/hr PRN: (3) metoprolol 1 mg/mL Inj [F] 5 mg 5 mL, IV Push, q4hr morphine 2 mg/mL preservative-free SOLN [F] 1 mg 0.5 mL, IV Push, q4hr ondansetron 2 mg/mL Inj [F] 4 mg 2 mL, IV Push, q6hr Problem list: Active Problems (14) Arthritis Asthma Asymptomatic microscopic hematuria Carpal tunnel syndrome of right wrist Depression Erectile dysfunction Hip pain, left HTN (hypertension) Hypertension Impingement syndrome of right shoulder Nocturia Osteoarthritis Screening PSA (prostate specific antigen) Weak urine stream Histories Family History: Hypertension Father Mother Congenital heart disease Mother Arthritis Mother Procedure history: Esophagogastroduodenosco py ([id number]) on 09/23/2023 at 68 Years. Left L4/5 Transforaminal Epidural Steroid Injections ([id number]) on 06/25/2023 at 67 Years. Comments: 07/31/2023 10:10 JAIME Guzman Brianna Lillian 10% relief L5/S1 TASHA ([id number]) on 05/19/2023 at 67 Years. Comments: 06/05/2023 11:07 Theodora Oh RN L5/S1 TASHA 70% relief L5-S1 TASHA ([id number]) on 12/10/2022 at 67 Years. Comments: 01/09/2023 13:14 JAMA Troy RN, Adry Aguirre L5-S1 TASHA-100% relief Arthroscopy of shoulder ([id number]) on 04/13/2018 at 62 Years. Comments: 04/13/2018 14:52 Marti Trinidad RN right .distal claviculectomy .extensive debridement ,subacromial decompression. Carpal tunnel release ([id number]) on 04/13/2018 at 62 Years. Comments: 04/13/2018 14:52 Marti Trinidad RN right Hip arthroplasty ([id number]) on 09/29/2017 at 62 Years. Comments: 09/29/2017 14:17 Imelda Palencia RN left Left hip arthrogram on 12/03/2016 at 61 Years. Appendectomy; ([id number]). Colonoscopy ([id number]). Tooth extraction, complete mouth ([id number]). Stent ([id number]). Comments: 09/04/2022 14:42 JAIME Mendieta RN, Jennifer Eckert cardiac Social History Social & Psychosocia (more content not included)... [facility] Esophagogastroduodenosc opy Patient: BARRY GALDAMEZ Age: 68 years Sex: Male : 1955 Associated Diagnoses: None Author: Hui Costa MD MMEGD Patient: BARRY GALDAMEZ Age: 68 years Sex: Male : 1955 Associated Diagnoses: None Author: Hui Costa MD Pre-Procedure Procedure Date 09/11/2023 09:18:00 . Procedure Type: Esophagogastroduodenosco py with removal of foreign body. Procedure provider Performed by Hui Costa MD. Current history and physical Documented on chart. Informed Consent After discussing the rationale, risks and benefits, and alternatives to this procedure, the patient provided signed consent for the procedure. Pre-procedure diagnosis: Abnormal imaging. Medications (Selected) Inpatient Medications Ordered Lactated Ringers IV Dilma 1000 mL 1,000 mL: 1,000 mL, IV, 100 mL/hr, Routine, Start date 09/23/23 8:21:00 EST, 10 hour(s), Total volume (mL): 1,000, 109.8 kg, 2.36, m2 NS 1000 mL Soln-IV 1,000 mL: 1,000 mL, IV, 75 mL/hr, Routine, Start date 09/23/23 1:12:00 EST, 13.3 hour(s), Total volume (mL): 1,000 Zofran 4 mg/2 mL Injection: 4 mg = 2 mL, Injection, IV Push, q6hr PRN Nausea, Routine, Start date 09/23/23 1:12:00 EST, 09/23/23 1:12:00 EST metoprolol 1 mg/mL Inj: 5 mg = 5 mL, Injection, IV Push, q4hr PRN Other (see comment), Routine, Start date 09/23/23 1:11:00 EST, 09/23/23 1:11:00 EST morphine 2 mg/mL Inj: 1 mg = 0.5 mL, Injection, IV Push, q4hr PRN Pain for 5 day(s), Stop date 09/28/23 1:14:00 EDT, Routine, Start date 09/23/23 1:15:00 EST, 09/23/23 1:15:00 EST pantoprazole 40 mg IV Inj: 40 mg = 10 mL, Injection, IV Push, Daily, Routine, Start date 09/23/23 9:00:00 EST, 09/23/23 1:11:00 EST Prescriptions Prescribed gabapentin 800 mg Tab: 1,200 mg = 1.5 tab(s), Oral, TID, X 30 day(s), # 135 tab(s), Refills(s) 1, Pharmacy: [facility]/pharmacy #[id number], 183, cm, 07/31/23 10:16:00 EST, Height/Length Dosing, 116, kg, 07/31/23 10:16:00 EST, Weight Dosing Documented Medications Documented Co Q-10: Daily, Refills(s) [...] Oral, Daily, # 30 tab(s), Refills(s) 0 ASA Classification: Class III. . Monitoring: See anesthesia record. . Procedure The procedure was performed in the hospital. See anesthesia record for sedation given during procedure. The patient was positioned starting in the left lateral decubitus position. Endoscope type used was, introduced orally, advanced to duodenum. No difficulty was encountered during the procedure. Views were excellent. The patient tolerated the procedure well. Findings Foreign body (chicken bone measuring 3.5 cm) seen in the upper esophagus at 20 cm; retrieved using cold snare Z-line irregular at 40 cm For hernia measuring 3 cm Patchy erythema with small erosions in the pyloric area consistent with erosive gastropathy. Biopsies were not obtained given history of recent Plavix intake Patchy erythema in the duodenum. No biopsies obtained Post-Procedure Complications: none. Estimated blood loss: none. Devices/ implants: none left in place. Impression and Plan EGD: Diagnosis: Esophageal foreign body (AUQ43-DA T18.108A, Discharge, Medical). Course: Progressing as expected. Education and Follow-up: Counseled. Notes: Obtain H. pylori stool antigen Start PPI once daily Repeat EGD after 3 months to obtain esophageal and stomach biopsies. Signature Line Electronically Signed By: Hui Costa MD Date and Time Signed: 09/23/23 09:09 EST Result type: Consultation Note Result date: September 23, 2023 9:05 EST Result status: In Error Result title: MMEGD Performed by: Hui Costa MD on September 23, 2023 9:09 EST Verified by: Hui Costa MD on September 23, 2023 9:09 EST Encounter info: [id number], [place], Observation, 09/22/2023 - Normal [facility] Comment on above: Result Comment: erro r Esophagogastroduodenosc opy Patient: BARRY GALDAMEZ Age: 68 years Sex: Male : 1955 Associated Diagnoses: None Author: Hui Costa MD Pre-Procedure Procedure Date 09/11/2023 09:18:00 . Procedure Type: Esophagogastroduodenosco py with removal of foreign body. Procedure provider Performed by Hui Costa MD. Current history and physical Documented on chart. Informed Consent After discussing the rationale, risks and benefits, and alternatives to this procedure, the patient provided signed consent for the procedure. Pre-procedure diagnosis: Abnormal imaging. Medications (Selected) Inpatient Medications Ordered Lactated Ringers IV Dilma 1000 mL 1,000 mL: 1,000 mL, IV, 100 mL/hr, Routine, Start date 09/23/23 8:21:00 EST, 10 hour(s), Total volume (mL): 1,000, 109.8 kg, 2.36, m2 NS 1000 mL Soln-IV 1,000 mL: 1,000 mL, IV, 75 mL/hr, Routine, Start date 09/23/23 1:12:00 EST, 13.3 hour(s), Total volume (mL): 1,000 Zofran 4 mg/2 mL Injection: 4 mg = 2 mL, Injection, IV Push, q6hr PRN Nausea, Routine, Start date 09/23/23 1:12:00 EST, 09/23/23 1:12:00 EST metoprolol 1 mg/mL Inj: 5 mg = 5 mL, Injection, IV Push, q4hr PRN Other (see comment), Routine, Start date 09/23/23 1:11:00 EST, 09/23/23 1:11:00 EST morphine 2 mg/mL Inj: 1 mg = 0.5 mL, Injection, IV Push, q4hr PRN Pain for 5 day(s), Stop date 09/28/23 1:14:00 EDT, Routine, Start date 09/23/23 1:15:00 EST, 09/23/23 1:15:00 EST pantoprazole 40 mg IV Inj: 40 mg = 10 mL, Injection, IV Push, Daily, Routine, Start date 09/23/23 9:00:00 EST, 09/23/23 1:11:00 EST Prescriptions Prescribed gabapentin 800 mg Tab: 1,200 mg = 1.5 tab(s), Oral, TID, X 30 day(s), # 135 tab(s), Refills(s) 1, Pharmacy: [facility]/pharmacy #[id number], 183, cm, 07/31/23 10:16:00 EST, Height/Length Dosing, 116, kg, 07/31/23 10:16:00 EST, Weight Dosing Documented Medications Documented Co Q-10: Daily, Refills(s) [...] Oral, Daily, # 30 tab(s), Refills(s) 0 ASA Classification: Class III. . Monitoring: See anesthesia record. . Procedure The procedure was performed in the hospital. See anesthesia record for sedation given during procedure. The patient was positioned starting in the left lateral decubitus position. Endoscope type used was, introduced orally, advanced to duodenum. No difficulty was encountered during the procedure. Views were excellent. The patient tolerated the procedure well. Findings Foreign body (chicken bone measuring 3.5 cm) seen in the upper esophagus at 20 cm; retrieved using cold snare Z-line irregular at 40 cm For hernia measuring 3 cm Patchy erythema with small erosions in the pyloric area consistent with erosive gastropathy. Biopsies were not obtained given history of recent Plavix intake Patchy erythema in the duodenum. No biopsies obtained Post-Procedure Complications: none. Estimated blood loss: none. Devices/ implants: none left in place. Impression and Plan EGD: Diagnosis: Esophageal foreign body ([id number]-FV T18.108A, Discharge, Medical). Course: Progressing as expected. Education and Follow-up: Counseled. Notes: Obtain H. pylori stool antigen Start PPI once daily Repeat EGD after 3 months to obtain esophageal and stomach biopsies. [facility] Inpatient Clinical Summaryon 09-23-2023 Inpatient Clinical Summary [place] [id number] Clinical Summary Person Information: Name: BARRY GALDAMEZ Age: 68 Years : 1955 Sex: Male PCP: JOE MADDOX DO Marital Status: Phone: [phone] Race: White Ethnicity: Non- or Language: Finnish Visit Id: Visit Reason: ESOPHAGEAL FOOD BOLUS Speciality: Acuity: Enc Type: Observation Med Service: Medical Arrival: 09/22/2023 20:07:00 Discharge: Dispo Type: Address: [facility] 07/21 [facility] [id number] Provider Notes: Diagnosis: 1:Esophageal foreign body; 2:Coronary artery disease; 3:Hypertension; 4:Hyperlipidemia; 5:Anemia; 6:History of palpitations; 7:Chronic back pain; 8:Obesity; Other chronic pain Problems Active Erectile dysfunction Weak urine stream Screening PSA (prostate specific antigen) Asymptomatic microscopic hematuria Hypertension Depression Arthritis Smoking Status: Former Smoker Functional Status: Sensory Deficits: Hearing deficit, left ear, Hearing deficit, right ear History of Falls: Within last three months Mobility Assistance Prior to Admission: ADLs: Independent Current Level of Assistance for Self-Care/Mobility: Cognitive Status: Allergies No Known Allergies Measurements: Height: 182.88 cm Weight: 109.8 kg Blood Pressure: 148 mmHg / 78 mmHg BMI: 32.83 kg/m2 Procedures Esophagogastroduodenosco py (09/23/2023) Immunizations No Immunizations Documented This Visit Final Med List: atorvastatin (atorvastatin 80 mg Tab) 1 Tablets By Mouth every day. clopidogrel (clopidogrel 75 mg Tab) TAKE 1 TABLET BY MOUTH THURSDAY THROUGH THURSDAY. gabapentin (gabapentin 800 mg Tab) 1.5 Tablets By Mouth 3 times a day for 30 Days. Refills: 1. metoprolol (Metoprolol tartrate 50 mg Tab) 1 Tablets By Mouth every day. pantoprazole (Protonix 40 mg Tab-DR) 1 Tablets By Mouth every day. Refills: 7. tramadol (tramadol 50 mg oral tablet) 1 Tablets By Mouth every 12 hours as needed as needed for pain. trazodone (traZODONE 50 mg Tab) 1 Tablets By Mouth once a day (at bedtime). ubiquinone (Co Q-10) every day. valsartan (valsartan 80 mg Tab) 1 Tablets By Mouth every day. Care Team Members: Attending Physician: Erwin VALADEZ DO Consulting Physician: Referring Physician: Follow up: With: Address: When: JOE MADDOX DO [address] [place] [address] 09/29/2023 3:30 PM With: Address: When: Igor FARFAN, Hui Pineda [facility], [address], [address] [place] [phone] 11/30/2023 9:00 AM Comments: Will need EGD in 3 months, Plavix must be held prior to endoscopy x 5 [address] Biswas at this appoinment. Type Location Start Finish State Pain Management - Follow Up (FT) FT.Pain [facility] 10/01/2023 2:15 PM 10/01/2023 2:25 PM Confirmed [facility] New Patient [facility] 11/30/2023 9:00 AM 11/30/2023 9:30 AM Confirmed Patient Education Information: Hiatal Hernia; Duodenitis; Upper Endoscopy, Adult, Care After; Swallowed Foreign Body, Adult Protonix Normal [facility] Inpatient Patient Summaryon 09-23-2023 Inpatient Patient Summary [address] [address] Patient Discharge Instructions PERSON INFORMATION Name: BARRY GALDAMEZ Date of : 1955 Current Date: 09/23/2023 14:08:46 PHYSICIANS Admitting Physician: Erwin VALADEZ DO Primary Care Physician: JOE MADDOX DO PCP Comment: Discharge Diagnosis: 1:Esophageal foreign body; 2:Coronary artery disease; 3:Hypertension; 4:Hyperlipidemia; 5:Anemia; 6:History of palpitations; 7:Chronic back pain; 8:Obesity; Other chronic pain Condition at Discharge: Improved BARRY GALDAMEZ has been given the following list of follow-up instructions, prescriptions, and patient education materials: PATIENT FOLLOW-UP INFORMATION Diet: Discharge Activity: Discharge Restrictions: Wound Care Instructions: Remove Your Dressing In Days Call Your Doctor For: IF UNABLE TO CONTACT YOUR PHYSICIAN AND YOU FEEL IT IS AN EMERGENCY, GO TO THE NEAREST EMERGENCY ROOM OR CALL 911 Home Treatment: Devices/Equipment: None Special Services: Additional Instructions: Need to bring stool sample to lab- order active, just drop off sample Follow up with PCP in 3-5 days, Follow up with GI in 2-4 weeks Anticipate repeat EGD in 3 months New rx sent for Protonix to pharmacy, continue other meds- stopping meloxicam/NSAIDs Primary Care Physician to provide the following pending test results: Other: Stool Sample Follow up: With: Address: [place]: [place] [address] [place] [id number] 09/29/2023 3:30 PM With: Address: When: Igor FARFAN, JEFF Contreras, [address] [place] [phone] 11/30/2023 9:00 AM Comments: Will need EGD in 3 months, Plavix must be held prior to endoscopy x 5 [address] be [address] Biswas at this appoinment. In the event that this physician does not participate in your insurance network, please consult with your insurance company to find a nearby participating provider. Type Location Start Finish State Pain Management - Follow Up (FT) FT.Pain Mgmt [place] 10/01/2023 2:15 PM 10/01/2023 2:25 PM Confirmed [facility] New Patient [facility] 11/30/2023 9:00 AM 11/30/2023 9:30 AM Confirmed Comment: DENICE Pimentel WAYNE M, have received the attached patient education materials/instructions and have verbalized understanding: Patient Signature Date Clinican/Nurse Signature Date HERE ARE THE MEDICATION CHANGES THAT OCCURRED DURING YOUR HOSPITAL STAY New Medications [id number], [address], [place] [phone], [phone] pantoprazole (Protonix 40 mg Tab-DR) 1 Tablets By Mouth every day. Refills: 7. Last Dose: _Next Dose: _ Medications to Continue Taking That Have Changed Other Medications START: gabapentin (gabapentin 800 mg Tab) 1.5 Tablets By Mouth 3 times a day for 30 Days. Refills: 1. Last Dose: _Next Dose: _ STOP: gabapentin (gabapentin 300 mg Cap) TAKE 1 CAPSULE BY MOUTH TID pt states he is on 800 mg TID. Medications to Continue with No Changes Other Medications atorvastatin (atorvastatin 80 mg Tab) 1 Tablets By Mouth every day. Last Dose: _Next Dose: _ clopidogrel (clopidogrel 75 mg Tab) TAKE 1 TABLET BY MOUTH THURSDAY THROUGH THURSDAY. Last Dose: _Next Dose: _ metoprolol (Metoprolol tartrate 50 mg Tab) 1 Tablets By Mouth every day. Last Dose: _Next Dose: _ tramadol (tramadol 50 mg oral tablet) 1 Tablets By Mouth every 12 hours as needed as needed for pain. Last Dose: _Next Dose: _ trazodone (traZODONE 50 mg Tab) 1 Tablets By Mouth once a day (at bedtime). Last Dose: _Next Dose: _ ubiquinone (Co Q-10) every day. Last Dose: _Next Dose: _ valsartan (valsartan 80 mg Tab) 1 Tablets By Mouth every day. Last Dose: _Next Dose: _ No Longer Take the Following Medications meloxicam (Mobic 15 mg Tab) 1 Tablets By Mouth every day. Comment: MEDICATION LIST PROVIDED FOR YOU IS A LIST OF YOUR CURRENT MEDICATIONS. PLEASE CARRY THIS WITH YOU AT ALL TIMES. atorvastatin (atorvastatin 80 mg Tab) 1 Tablets By Mouth every day. clopidogrel (clopidogrel 75 mg Tab) TAKE 1 TABLET BY MOUTH THURSDAY THROUGH THURSDAY. gabapentin (gabapentin 800 mg Tab) 1.5 Tablets By Mouth 3 times a day for 30 Days. Refills: 1. metoprolol (Metoprolol tartrate 50 mg Tab) 1 Tablets By Mouth every day. pantoprazole (Protonix 40 mg Tab-DR) 1 Tablets By Mouth every day. Refills: 7. tramadol (tramadol 50 mg oral tablet) 1 Tablets By Mouth every 12 emily (more content not included)... 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 Pt is aware of plan to DC home later today. Pt is from home with and she will transport at DC. Observation status reviewed, PCP verified and insurance information reviewed will transport at DC, decline any concerns or DC needs. Plan to DC home today. [facility] Comment on above: Result Comment: Elec tronically Signed By: Cherelle TREVIZO, Clalie\.deborah\Date and Time Signed: 09/23/23 10:51 EST Main OR PACU I Recordon Main OR PACU I Record PACU Phase I Docum ent Type FT Summary Primary Physician: Hui Costa MD Finalized Date/Time: 09/23/23 10:12:11 Pt. Name: BARRY GALDAMEZ Tomeka GauthierB./Sex: 1955 Male Med Rec #: [id number] Physician: Erwin VALADEZ DO Financial #: [id number] Pt. Type: O Room/Bed: N318/01 Admit/Disch: 09/22/23 20:07:00 - Institution: Case Times PACU I FT Pre-Care Text: Identifies barriers to communication and implements measures to provide psychological support Develops individualized plan of care, and ensures continuity of care Maintains patient's dignity and privacy, and maintains patient confidentiality Identifies and reports philosophical, cultural, and spiritual beliefs and values Identifies individual values and wishes concerning care Implements aseptic technique, and administers prescribed antibiotic therapy and immunizing agents as ordered Evaluates postoperative tissue perfusion Implements thermoregulation measures, and monitors body temperature Evaluates postoperative respiratory status Evaluates postoperative cardiac status Evaluates postoperative neurological status Assesses pain control, collaborated in initiating patient-controlled analgesia and implements alternative methods of pain control Verifies allergies, administers prescribed medications and solutions, evaluates response to medications Entry 1 In PACU I 09/23/23 09:06:00 Discharge from PACU 09/23/23 09:36:00 I Outcomes Met? Yes Last Modified By: Niharika Solorzano RN 09/23/23 10:11:41 Post-Care Text: The patient demonstrates knowledge of the expected response to the operative or invasive procedure The patient's care is consistent with the individualized perioperative plan of care The patient's right to privacy is maintained The patient's value system, lifestyle, ethnicity, and culture are considered, respected, and incorporated into the perioperative plan of care The patient participates in decisions affecting his or her perioperative plan of care The patient is free from signs and symptoms of infection The patient has wound/tissue perfusion consistent with or improved from baseline levels established preoperatively The patient is at or returning to normothermia at the conclusion of the immediate postoperative period The patient's respiratory function is consistent with or improved from baseline levels established preoperatively The patient's cardiovascular status is consistent with or improved from baseline levels established preoperatively The patient's cardiovascular status is consistent with or improved from baseline levels established preoperatively The patient demonstrates and/or reports adequate pain control throughout the perioperative period The patient received appropriate medication(s), safely administered during the perioperative period Acuity Level PACU I FT Entry 1 Start Time 09/23/23 09:06:00 Stop Time 09/23/23 09:36:00 Acuity Level Acuity Level I Last Modified By: Niharika Solorzano RN 09/23/23 10:12:07 Finalized By: Niharika Solorzano RN Document Signatures Signed By: Niharika Solorzano RN 09/23/23 10:12 Normal [facility] Main OR Preoperative Recordo n 09-23-2023 Main OR Preoperative Record Holding Area Document Type FT Summary Primary Physician: Hui Costa MD Finalized Date/Time: 09/23/23 08:39:45 Pt. Name: BARRY GALDAMEZ Tomeka Bryant/Sex: 1955 Male Med Rec #: [id number] Physician: Erwin VALADEZ DO Financial #: [id number] Pt. Type: O Room/Bed: 18/ Admit/Disch: 09/22/23 20:07:00 - Institution: Case Times Holding FT Pre-Care Text: Verifies consent for planned procedure, identifies individual values and wishes concerning care, includes family members in perioperative teaching Secures patient's records' belongings, and valuables, maintains patient's dignity and privacy, and maintains patient confidentiality Entry 1 In Holding 09/23/23 08:32:00 Outcomes Met? Yes Last Modified By: Mirta Gutiérrez RN 09/23/23 08:38:04 Post-Care Text: The patient participates in decisions affecting his or her perioperative plan of care The patient's right to privacy is maintained Surgery Checklist FT Entry 1 Patient Birthday, ID Band Procedure History and Physical, Identification: Check, Patient Verification: Surgical Consent, With Participation Patient NPO after Midnight: Yes Personal Items: Glasses, Jewelry Personal Items x1 ring, metal in left Limitations: no Comment: hip Complaints of Pain: No Pain Comment: no Operative Site n/a Marked By: n/a Marking: Availability Equipment Verified: Does Patient Smoke No Patient states Yes Comment - Adult inpatient postop adult Supervision supervision available Case Cancelled in No Holding Area see comments below for reason Last Modified By: Mirta Gutiérrez RN 09/23/23 08:39:42 Finalized By: Mirta Gutiérrez RN Document Signatures Signed By: Mirta Gutiérrez RN 09/23/23 08:39 Normal [facility] Message from Medicareon Message from Medicare [id number]#1.00TIF F Normal [facility] Monitor Recordon 09-23-2023 Monitor Record [id number]#1.00TI FF Normal [facility] Monitor Record [id number]#1.00TI FF Normal [facility] Patient Education - Texton 0 09-23-2023 Patient Education - Text ENT Swallowed Foreign Body, Adult A swallowed foreign body is an object that gets stuck in the digestive tract, either in the part of the body that moves food from the mouth to the stomach (esophagus) or in another part. When a person swallows an object, it passes into the esophagus. The narrowest place in the digestive system is where the esophagus meets the stomach. If the object can pass through that place, it will usually continue through the rest of the digestive system without causing problems. A foreign body that gets stuck may need to be removed. Foreign bodies may be swallowed by accident or on purpose. It is very important to tell your health care provider what you have swallowed. Some swallowed objects can be life-threatening, and you may need emergency treatment. Dangerous swallowed foreign bodies include: ? Objects that get stuck in your throat. ? Objects that make you unable to swallow. ? Objects that interfere with your breathing. ? Sharp objects. ? Harmful or poisonous (toxic) objects, such as batteries or illegal drugs. What are the causes? The most common swallowed foreign body is food that will not pass through your esophagus to your stomach (food impaction). Foods that commonly become impacted include meats and hard vegetables such as carrots and radishes. Other common swallowed foreign bodies include: ? Pieces of bone from meat or fish. ? Toothpicks. ? Dentures. What increases the risk? You are more likely to have a swallowed foreign body if you: ? Wear dentures. ? Have been drinking alcohol or taking drugs. ? Have a mental health condition. ? Have difficulties with thinking and learning (cognitive impairment). ? Have a narrowed or scarred area in your digestive tract. What are the signs or symptoms? Symptoms of this condition include: ? Pain or pressure in your throat or chest. ? Not being able to swallow food, liquid, or your saliva. ? Drooling. ? Choking. ? A hoarse voice. ? Noisy breathing or trouble breathing. ? Vomit that has blood in it. How is this diagnosed? This condition may be diagnosed based on your symptoms and medical history. Your health care provider will do a physical exam to confirm the diagnosis and to find the object. A metal detector may be used to find metal objects. Imaging studies may also be done, including: ? X-rays. ? A CT scan. Some objects may not be seen on imaging studies. In those cases, an exam or procedure may be done using a scope to look into your esophagus (endoscopy). How is this treated? Usually, an object that has passed into your stomach but is not dangerous will pass through your digestive system without treatment. If the swallowed object is not dangerous but is stuck in your esophagus: ? Your health care provider may gently suction out the object through your mouth. ? You may be given medicine to relax the muscles of your esophagus to allow the object to pass through. ? An endoscopy may be done to find and remove the object if it does not pass through with medicine. Your health care provider will put medical instruments through the endoscope to remove the object. You may need emergency treatment if: ? The object is in your esophagus and is causing you to inhale saliva into your lungs (aspirate). ? The object is in your esophagus and is pressing on your airway. This makes it hard for you to breathe. ? The object can damage your digestive tract. Some objects that can cause damage include batteries, magnets, sharp objects, and drugs. Follow these instructions at home: Caring for yourself ? If the object in your digestive system is expected to pass: ? Continue eating what you usually eat unless your health care provider gives you different instructions. ? Check your stool after every bowel movement to see if you have passed the object. ? If you had an endoscopic procedure to remove the foreign body, follow instructions from your health care provider about caring for yourself after the procedure. General instructions ? Take bpzn-qwi-rykxozf and prescription medicines only as told by your health care provider. ? Keep all follow-up visits, including any for repeat imaging tests. This is important. How is this prevented? ? Cut your food into small pieces. ? Always sit upright while eating. ? Remove bones from meat and fish. ? Chew your food well before swallowing. ? Do not talk, laugh, or walk around while eating or swallowing. Contact a health care provider if: ? You continue to have symptoms of a swallowed foreign body. ? The object has not passed out of your body after 3 days. Get help right away if: ? You have a fever. ? You have pain in your chest or your abdomen. ? You cough up blood. ? You have blood in your stool (feces). ? You have blood in your vomit after treatment. These symptoms may be an emergency. Get help right away. Call 911. ? Do not wait to see if the symptoms (more content not included)... Normal [facility] TSH With T4fr Reflexon 09-22 TSH Qn 3.13 m[IU]/L Normal 0.34-5.60 [facility] Comment on above: Performed By: #### 2 [id number] ####[facility] [address] [place] [address] eGFRon 09-23-2023 eGFR 96 mL/min/1.73 m2 Normal >=59 [facility] Comment on above: Order Comment: Order added by Discern Expert. Performed By: #### 2 [id number] ####[facility] [address] [place] [address] Outside Recordson 08-03-2023 Outside Records [id number]#1.00OTG TIFF [facility] Consent for Treatmenton 07-20 Consent for Treatment [id number]#1.00TI FF [facility] Consultation Noteon 07-31-19 24 Consultation Note Patient: MANPREET GALDAMEZ Age: 67 years Sex: Male : 1955 Associated Diagnoses: None Author: Ariana Urena PA-C Subjective Chief complaint 07/31/2023 10:04 EST Back Pain . Patient is a 67-year-old male. He presents today for follow-up after undergoing a left-sided L4-5 transforaminal epidural steroid injection. This was done on 06/25/2023 and gave 95% relief for 3 hours but unfortunate, it then went down to 10% and he still does not have the relief he is looking for. Prior to that patient underwent L5-S1 epidural steroid injection. This was done on 05/19/2023 and has given him 70% relief. He has lower back pain with left buttock pain and left radiating leg pain that he rates a 5/10. Historically, anti-inflammatory medications have not helped. Previous conservative treatments including physical therapy has not helped. He wonders if there is something else he can undergo to try to get some relief. Patient states that his doctor friend told him about a possible procedure where ligament could be removed and he wonders about pursuing this. Health Status Allergies: Allergic Reactions (Selected) No Known Allergies, Allergies (1) Active Reaction No Known Allergies None Documented Current medications: (Selected) Prescriptions Prescribed gabapentin 800 mg Tab: 1,200 mg = 1.5 tab(s), Oral, TID, X 30 day(s), # 135 tab(s), Refills(s) 1, Pharmacy: [facility]/pharmacy #[id number], 183, cm, 07/31/23 10:16:00 EST, Height/Length Dosing, 116, kg, 07/31/23 10:16:00 EST, Weight Dosing Documented Medications Documented Co Q-10: Daily, Refills(s) [...] All Problems HTN (hypertension) / SNOMED CT 6438057046 / Confirmed Hip pain, left / SNOMED CT 3102779848 / Confirmed DJD Nocturia / SNOMED CT 744310619 / Confirmed Asthma / SNOMED CT 062200241 / Confirmed Impingement syndrome of right shoulder / SNOMED CT 923967368 / Confirmed Carpal tunnel syndrome of right wrist / SNOMED CT 61319975 / Confirmed Osteoarthritis / SNOMED CT 2139601123 / Confirmed Arthritis / SNOMED CT 9470801 / Confirmed Depression / SNOMED CT 52557697 / Confirmed Hypertension / SNOMED CT 1121000419 / Confirmed Erectile dysfunction / SNOMED CT 4568522197 / Confirmed Asymptomatic microscopic hematuria / SNOMED CT 8432393666 / Confirmed Weak urine stream / SNOMED CT 925092018 / Confirmed Screening PSA (prostate specific antigen) / SNOMED CT 725277913 / Confirmed Resolved: At risk for falls / SNOMED CT 952374461 Problem added when Risk for Falls Careplan was initiated. Resolved due to patient discharge. Objective Vital Signs 07/31/2023 10:04 EST Peripheral Pulse Rate 56 bpm LOW Respiratory Rate 14 br/min Systolic Blood Pressure 128 mmHg Diastolic Blood Pressure 63 mmHg Mean Arterial Pressure, Cuff 85 mmHg General: Alert and oriented, No acute distress. Overweight Eye: Normal conjunctiva. HENT: Normocephalic, Normal hearing. Cardiovascular: No edema. Musculoskeletal Normal range of motion. Normal strength. 5/5 lower extremity strength other than left hip flexion 5 -/5 Integumentary: Warm, Dry, Henning. Injection site well-healed Neurologic: Alert, Oriented. Psychiatric: [...] significant for lumbar stenosis and lumbar neuritis. Previous L5-S1 interlaminar epidural steroid injection gave improvement. unfortunately, he was still having left radiating leg pain so he underwent a recent transforaminal epidural steroid injection. Unfortunately, this did not give him any long-term relief. Significant short-term relief but nothing long-term. We reviewed his MRI. We discussed different options. I discussed with patient possible mild procedure. I would like to discuss his case with Dr. Willingham. I will have patient follow-up in 4 to 6 weeks after looking at some mild information and reviewing his case with Dr. Willingham. In the meantime, we discussed gabapen (more content not included)... [facility] Comment on above: Result Comment: Elec tronically Signed By: Romel ARCE, Ariana\.br\Date and Time Signed: 07/31/23 10:27 EST Legal Correspondence Officeo n 07-31-2023 Legal Correspondence Office [id number]#1.00TIF F [facility] Office/Clinic Note-Physician on 07-31-2023 Office/Clinic Note-Physician [id number]#1.00TIF F [facility] Patient Correspondenceon Patient Correspondence [id number]#1.00TIF F [facility] Patient Correspondence [id number]#1.00TIF F [facility] Patient Correspondence [id number]#1.00TIF F [facility] Patient Correspondence [id number]#1.00TIF F [facility] Patient History Officeon Patient History Office [id number]#1.00TIF F [facility] Reminder Messageson 07-31-19 Reminder Messages - From: JOE MADDOX DO To: [facility] Clinical [place] ([facility]); Sent: 07/27/2023 12:31:28 EST ! Show up: 07/27/2023 12:31:28 EST Subject: Results Follow Up Actions: Call the patient with result(s) Due Date/Time: 07/28/2023 12:30:00 EST Reminder Comments: looks okay. no abnormal rhythms Results: Date Result Type Result Name 07/27/2023 11:35 Radiology CV Holter Monitor 48 Hour From: Katelin Shultz ([facility] Clinical Pool ([facility] To: JOE MADDOX DO; Sent: 07/27/2023 16:46:59 EST Show up: 07/27/2023 16:46:00 EST Subject: RE: Results Follow Up Notified patient of results. Patient states he had another episode yesterday afternoon, his BP dropped to 98/61 while he was sitting. Patient states he had not had an episode prior to this one for 2 weeks. Please advise, thank you From: JOE MADDOX DO To: [facility] Clinical [place] ([facility]); Sent: 07/28/2023 07:42:25 EST Show up: 07/28/2023 07:42:00 EST Subject: RE: Results Follow Up time for a cardiology referral LV notifying patient, referral made Normal [facility] Coding Summaryon 07-28-2023 Coding Summary HTMLBase 64 IhduqgzwPMf6vPe+PGhlYWQ+ PU1HXMDhP79cpBLtzU0rG5PR TElOSywgQVBQTElOSyIgbmFt SQ4dpJIaMXQf IC8+SQ5rEQWcRoptuJNif2M7 sGB2G61oqs8wJFvckJG8UCJe RuCgzwxdn1lqwGo3PLuzWmry OyBt VKGpsP87MZY3sK22Tp42aYBf iUDib9kxpLe0YcLsXUThYKB1 hKirJGpdi4BfUSWgB37uoYQl c2U6 YRSziUnfkAFrYeYomVG1bK9c VUfiyvaih3fmokacMfn1sl06 bEKgu4X9jLW4E0UmuiJ0LCJo bGQg UqiqdOQAdT6sffxso5ilcucw BuWpDHPrQDi9ARc5RPPgjXrz AnKfTN34PEE3QPFdikCrZ9Ja LWFs iIqnSsW8y9D2Ul4HZ8SSBgrf N2KUSVNCAUeseQO+DA04yt75 T9KnJaegZhu9XERqSPR2rBP8 aD0n AHCoIJkiz2D8fZY5K5IbhlEe kc7aj0esIDWjZGwiB01ybTPg w7G6XRPtuKM6QKKgsYadVuOb aG93 Oyc+WPJzrGvku2SwTpbqd7yy p7czsFi0RaykNYNytyTwwHrb TSW3l3UnIs2eMIJtwZU9mOT2 aD0i ViHiObY7AQuvG993RhLtgTEt DangH87xK8TetHE+PHRyPjx0 MIUqgVbtNO8aT6LhUNZkfhee bGVm nVbdCE4iMQWrmtsuWHPchS2j ZIXyE3y1XbBeZoI9UFhrR3Ab FEJamsmjIy31tI4aFdGkGdT6 MGlu O1BdpaZ9PMCxbNBpCFruQCK3 X77ou7B8KFBqWYViWSB7nAK7 fK3gwAejbqmwsRVdeWgynwMc dGlj VFfmCFugE427KFNfiTyoIqTi ZGluZyBEYXRlOiAgMDEvMDkv MjAyNDwvdGQ+LPVeNYK7eKjc PSAn gETqZVcvLi2ciTpplJkrJY7m TAZifvhgFFCssP6qXSAkzLEg cStkXD4rKHQxzbcpm753UjYp MHB0 MRGhgEQjL8HhyQ9dVmNvMPCj HTCcZ0MbiOVwRMncR164UPda VbS1MKBxxcFrU5NkZMJjhQui OiB0 y4G4Ou4Mt9QeajiiV2QsgHLb IlIuVbnpHRx8N6ChXwbbsMA+ TL31EUWsPM27BEd2XYS4dKyu PSdi XJTuC8KhfD0cMuKhHCExZBGh Oyc+PHRhYmxlIHdpZHRoPScx BHWaHkImsAjtAO3pQw9eHXZl LWNv qJsulFWjGpKls5rpSNCvESrg DQ1dpCuiA3JgoXE0WDPwj2z9 Ka99Q00tQ7CopML+PGNvbCB3 aWR0 gL5dIxLfFfG8RLgiW602DmIa lXMvLednw8xvd5ddnLc6KsY0 MALsgfQwcBsaCKJ3n4XtGe57 Y29s IHdpZHRoPSIxNSUiIHZhbGln mz6sjC2sZv7+LSZibNF6ePL4 xC5kKsSzAeG1ZKcmB465AcLd cCIv Yqksa4ezw9oveEu5KiKoXCNj ayKtzXveEWW6r0QoRl41N2Zw rHmlw3IlWbh1kv04hCDxr5F5 bGU9 A3VlXJLixlbozYPhvQufFG9h CEYrfiopEDCwuH4aKGOoK8n5 LlSqAyM5QQvbZ6HkorX6UUCg bGQg MTZtoSTXnW4ltqhye9djidkn LgQhZATyGYc5PIi9TBRfzXkt GxEkTXK0KnG2XSW1jMJsaV2n bGln hizcfZ6wYkq+HTL9vGDcjHIQ RA0iCrnmcJA+LTTkRRS5gHkq VIuuFCVycJ8aYIPtX1c7UrLb LjA1 KTooS0FrbzF8WHYdvWXhTQAw tNCShA7vtyepj1ebkygcOvYi BBUuJIv4EJb6OUAalXskVzMl ZWZ0 HhD6OMH8aGLeeA1mwRgpkolz iC6gHsi+YgczwQxdNXM7RUw6 U0FvChh5RXAmnPfuCT0ikUIs ZGlu Hn0bvKhfaSatYG6xJTHnsjad o332RdRys1neMCLihRAlVHgq ERA0D00yj3B2WFMlHWThIVQ5 dGV4 iW1mlJdobzkxtMDkjVqwajZl rSbdDOghFYzqH633YKBfjAmt JfYyBYs7C5FrLxa8WTSosDdi ZT0n xBCfTIzdQe3crZgzsVodUH3t TYBanzqax167WcSoy0iaJJEx cZKnNKebNTB9M54fg7V0QZHv MDAw GUG2eRA8qI5trDopabvqcEPb tUorneSxzLuvOGguBQssD379 RRAwdFqpCmXhpNt9Q8KySxy5 ZCBz eYfqUQ6cdUMeHDyfVp6qjRmo yCqjOD7kJPZtlzfsw721RwFl z4nsFIAjdBSrJJvwOWL5C89t b3I6 ANVkLOLjCGE1qUS1lY1yrNfc bjogbGVmdDsgdmVydGljYWwt QWpwM767XOJboUqhKaGlgMfl bnQg WLhuKQu5D3JuEcrzxOM+PC90 OTWiWQ28qMHfaJUpm6owtXi4 CuPcYLPpOEL7sMqzFIncp1Ih ZXIt V56seXKpq2Z9GOItkGhhxMWv EmHonZX6mO0cIHuwnwdjp1gi mhuyKaxzb8jfuf08wU03T43i IHdp WMOiWFNdBZDsNVJffTqvui9a xL1rJk9+JXQvnMN2oBQ5bG2w GMJoDpD7SSufB306HzNjwPOc Pjxj k6xsg2fqwEp9EyJ9TXKzudLe sXmtVKI2d5UpSq74U27gZAdg SKVyIOSjAQMsXCUjeKipql2d dG9w Ii8+GBDvxCQ4tRJ0lV6wBkCg NxE0BPleY829PmWiyVIxNhxh N08oE6NiwXT+RMUqEvv7OEKh dHls LN8doEQiHGloDd8bHRP3AxAf WxWpYWozV3OhTELwkehjmwbl xJZ9DWDzZUIkqE85Sv1rrAht MTBw yLOLtX3ozupkn9ipafotAnIz IOJbBGb9GVr1IOTwrFhlBrSs ZFC0QyD8IEB7yNXmrX6mqCta bjog fJ6oB6FwFYEolejjQr23bI6g CiCsXoX6XWzzIqu+X8IJAlRF USBNWJrLZDSSRB05BH21lOWv c3R5 bYM4H3FaNNQvgtjkmxbyqBJ3 HOQcYTDmaY22tETkYPqbXz5b m4O7r801ICYzEFKxlE15Ja1z dDog JPTdpDMEcA3ihzpnz9qwyhfm CaGfVZWuQPr9TJl4SSAscYao InQqPHG0BwJ4GHP7vGZxmK7b bGln xyqrkA6gPlu+MDEvMzEvMTk1 NjwvdGQ+QVRaMET3zVcuBEcy RDBtlS9eDJCpF1z2XoFaArW2 MGlu J5WvRAYgjrbcPb75hV5pJjPr TuB2XRjqZ7GbibH5VJQysFQw YFycABY5V68oo9A7UGTeRPSv MDA7 hJY7rB7dqKlxsriumWKfmAeq rrQoyMxgWDjvHWpqI108CAWi pDgmHnO8XMobFLUqCK54CL72 dGQg l6E0hLN5R5ClPVSzkzmzayjk eQA9RJSpTEUmrM43xDRsGPuz Zf2fl6Q6a490AEJiTRViwR28 Zm9u zEdzIAVdkBRXoM9tzfwcb2ft wcciHnEeXXTqCAs3SSu5XIIf eIelHrLfVMU9LvP1AYG7bEYf bC1h rGgcezmpfU8kOwl+TUFMRTwv dGQ+TMHnIBQ1xKnjVNbbDCJs tR7mOFOxG6x1UaXyZnB9KEqe O3Bh ZSPdlwogVa38tN1mUeOiFkM8 NPmeX4DlfoR1ULKbgODdJZhn GDC5F64mp1W3REJwGDMdOYG2 dGV4 rQ1chUrjrtapdXChzYqtiqVg hCvyYMelIUjzZ511HNBgyJoa Lu07fQNdgZpnniRgaT1gBEDX ZWQ8 K0RnYeamcSY+IO39CPFgLG84 fYLwfEUmz5ajnNn0TnStVVJp DHW3pNbsEZcni5SjSJZpU24v bGFw p1D6UWKczMvowZHiAoUehWH7 sG6eJKsqvqjot6srdstoGkwr n4njfl34vM87U09yZKzeOVNg PSIz SNAmGGAshLxlmm3dvT5dSk6+ CPEbcSV6zSQ4iB7uLkJjKeP6 JUadP263YiKyiRZpMjpys4qj d2lk uEi6FsSdSXKbrzPnsGmxGYD6 c4IgMb26M85rJTlcBTYcNGJv YNOwIBQovRrevx0rqZ5xGf0+ PC9j l7aahr26sM66yWT+PHRkIHN0 dHuuYPjvIRJpuZ7pCKgvQeV5 VJRvCmVevS34oYJaUQccWq9j aWdo rLqsJU5gLUNlpnukm003AuWb w2raZPFhuOWdVNeqDMF7T99k a8U0VQTyOMRaTIU7mXW6wE0q bGln bjogbGVmdDsgdmVydGljYWwt WYgiE804RBNxzTncZwLoaWEx N0lpoePOYH3rDpawcVN+PHRk IHN0 tOdjCFoeTYXmjM7pDVEhD8z1 KpZqSsJ3LWrvS8GqzeA4CFFu tPUzRIYxtAEHvY5sownuw0zx cjog YbOfVVEzFBv7WBu4WUOphVxz UiHoCZM6TyT1YSG5lYVwlL0z eZkgeobdrJ1aOvp+RklOOjwv dGQ+ VNRgORJ3gJuaVSeqONMlpC3k RZWaP8o6LrOaHfG4YHjxV9Lb iqA9VEQxeYJbVIMnmHSOrH4v cztj z7ralqwcYbImOGUfJLe2PBp8 AFHwuVveWdNuYRZ2BgI8XKC7 tUHtqC4pzBerscfvnS6jJuq+ TVJO OjwvdGQ+TVZzVQC0vZykKBbw BLPxbD2yICAgG0z7KgXqEpT2 IZsoF4JidxK1HJCpxZNeONQt dCBU tJ2ytwfcx5ygzhzvSwXsDVHz CHh5RCv3JHJeyJxyXcUxEEI4 XaY8BFZ1jJJbuS6mtXszfuyh dG9w Oyc+EME7JBT1MX92MS69N8Sv PjwvdGFibGU+PHRhYmxlIHdp RLDoQBksUQTnMzCfvVmuNU9y Ym9y ZGV (more content not included)... [facility] Holter Monitoron 07-28-2023 Holter Monitor [id number]#1.00OTG TIFF [facility] CV Holter Monitor 48 Houron [...] patient's symptoms. Timothy Burnett DO JOB #: [id number] bk Final Dictated by: Timothy Burnett DO Dictated DT/TM: 07/27/23 9:22 Signed (Electronic Signature): Timothy Burnett DO 07/27/23 11:35 a Technologist: [facility] Outside Recordson 06-29-2023 Outside Records [id number]#1.00O TGTIFF [facility] Consent for Procedure/Surger yon 06-25-2023 Consent for Procedure/Surgery [id number]#1.00TIF F [facility] Consent for Treatmenton Consent for Treatment [id number]#1.00TI FF [facility] Discharge Instructionson Discharge Instructions [id number]#1.00TIF F [facility] IntraOperative Documentson 1 08-26-2022 IntraOperative Documents [id number]#1.00TIF F [facility] Main OR Intraoperative Recor don 06-25-2023 Main OR Intraoperative Record IntraOp Document Type FTPM Summary Primary Physician: Neymar Willingham MD Finalized Date/Time: 06/25/23 13:41:33 Pt. Name: BARRY GALDAMEZ /Sex: 1955 Male Med Rec #: [id number] Physician: Neymar Willingham MD Financial #: [id number] Pt. Type: P Room/Bed: / Admit/Disch: 06/25/23 12:30:18 - Institution: Case Times FTPM Entry 1 Patient Times In Room 06/25/23 13:37:00 Out Room 06/25/23 13:42:00 Procedure Times Start 06/25/23 13:40:00 Stop 06/25/23 13:41:00 Anesthesia Times Last Modified By: Adry Troy RN 06/25/23 13:41:27 Case Attendance FTPM Entry 1 Entry 2 Entry 3 Case Attendee Neymar Willingham MD, RN, Nancy Reis RN Role Performed Surgeon - Primary Onion Topper - Primary Scrub - Primary Time In 06/25/23 13:37:00 06/25/23 13:37:00 06/25/23 13:37:00 Time Out 06/25/23 13:42:00 06/25/23 13:42:00 06/25/23 13:42:00 Procedure TRANSFORAMINAL EPIDURAL TRANSFORAMINAL EPIDURAL TRANSFORAMINAL EPIDURAL STEROID INJECTIO(Left) STEROID INJECTIO(Left) STEROID INJECTIO(Left) Comments Last Modified By: Adry Troy RN, RN, Adry Lawrence RN 06/25/23 13:41:29 06/25/23 13:41:29 06/25/23 13:41:29 Entry 4 Case Attendee Kimmy Chaney Role Performed Tower Foreman Time In 06/25/23 13:37:00 Time Out 06/25/23 [...] and tissue Entry 1 Skin Integrity Intact, [place], Warm, and Skin Abnormality No Dry Outcomes [...] Checked Yes By Adry Troy RN Outcomes Me (more content not included)... Normal [facility] Main OR Preoperative Recordo n 06-25-2023 Main OR Preoperative Record Holding Area Document Type FT Summary Primary Physician: Neymar Willingham MD Finalized Date/Time: 06/25/23 13:18:07 Pt. Name: BARRY GALDAMEZO.B./Sex: 1955 Male Med Rec #: [id number] Physician: Neymar Willingham MD Financial #: [id number] Pt. Type: P Room/Bed: / Admit/Disch: 06/25/23 [...] 13:18 Jennifer Mendieta RN 06/25/23 13:18 Normal [facility] Operative Reporton 3 Operative Report Patient: MANPREET GALDAMEZ Age: 67 years Sex: Male : 1955 Associated Diagnoses: None Author: Tarsha FARFAN, Neymar Zelaya Procedure Procedure: Transforaminal Epidural Steroid Injections with [...] 13:09 EST Respiratory Rate 14 br/min . [facility] Comment on above: Result Comment: Elec tronically Signed By: Tarsha FARFAN, Neymar Zelaya\.br\Date and Time Signed: 06/25/23 13:41 EST Patient Correspondenceon Patient Correspondence [phone] [id number] F [facility] Insurance Correspondence Off iceon 06-10-2023 Insurance Correspondence Office [id number] F [facility] [facility] Office/Clinic Note-Physician on 06-08-2023 Office/Clinic Note-Physician [id number]#1.00TI FF [facility] Consent for Treatmenton 05-20 Consent for Treatment [id number]#1.00TI FF [facility] Consultation Noteon 06-05-20 Consultation Note Patient: MANPREET GALDAMEZ Age: 67 years Sex: Male : [...] All Problems HTN (hypertension) / SNOMED CT 0575242998 / Confirmed Hip pain, left / SNOMED CT 7095193374 / Confirmed DJD Nocturia / SNOMED CT 434651995 / Confirmed Asthma / SNOMED CT 434214494 / Confirmed Impingement syndrome of right shoulder / SNOMED CT 092224215 / Confirmed Carpal tunnel syndrome of right wrist / SNOMED CT 29551545 / Confirmed Osteoarthritis / SNOMED CT 2713299635 / Confirmed Arthritis / SNOMED CT 4377717 / Confirmed Depression / SNOMED CT 47208736 / Confirmed Hypertension / SNOMED CT 4859451587 / Confirmed Erectile dysfunction / SNOMED CT 2258744430 / Confirmed Asymptomatic microscopic hematuria / SNOMED CT 2011773325 / Confirmed Weak urine stream / SNOMED CT 273311742 / Confirmed Screening PSA (prostate specific antigen) / SNOMED CT 730550418 / Confirmed Resolved: At risk for falls / SNOMED CT 164742725 Problem added when Risk for Falls Careplan [...] hip flexion 5 -/5 Integumentary: Warm, Dry, Henning. Injection site well-healed Neurologic: Alert, Oriented. Psychiatric: [...] necessary. OARRS reviewed ANABELL score: 38% Normal [facility] Comment on above: Result Comment: Elec tronically Signed By: Ariana Urena PA-C\.br\Date and Time Signed: 06/05/23 11:22 EST\.br\Electronically Co-Signed By: Tarsha FARFAN, Neymar Zelaya\.br\Date and Time Co-Signed: 06/08/23 12:01 EST Office/Clinic Note-Physician on 06-05-2023 Office/Clinic Note-Physician [id number]#1.00TIFF Normal [facility] Patient Correspondenceon Patient Correspondence [id number]#1.00TIFF Normal [facility] Patient Correspondence [id number]#1.00TIFF Normal [facility] Patient History Officeon Patient History Office [id number]#1.00TIFF [facility] Patient Handouton 05-27-2023 Patient Handout [id number]#1.00OT GTIFF [facility] Outside Recordson 05-26-2023 Outside Records [id number]#1.00OT GTIFF [facility] Patient Handouton 05-26-2023 Patient Handout [id number]#1.00OT IFF [facility] Consent for Procedure/Surger yon 05-19-2023 Consent for Procedure/Surgery [id number]#1.00TI [facility] Consent for Treatmenton 04-21 Consent for Treatment [id number]#1.00TI [facility] Discharge Instructionson Discharge Instructions [id number]#1.00TI [facility] IntraOperative Documentson 1 IntraOperative Documents [id number]#1.00TI [facility] Main OR Intraoperative Recor don 05-19-2023 Main OR Intraoperative Record IntraOp Document Type FTPM Summary Primary Physician: Neymar Willingham MD Finalized Date/Time: 05/19/23 14:15:08 Pt. Name: BARRY GALDAMEZ Tomeka Madden/Sex: 1955 Male Med Rec #: [id number] Physician: Neymar Willingham MD Financial #: [id number] Pt. Type: P Room/Bed: / Admit/Disch: 05/19/23 13:34:40 - Institution: Case Times FTPM Entry 1 Patient Times In Room 05/19/23 14:09:00 Out Room 05/19/23 14:15:00 Procedure Times Start 05/19/23 14:12:00 Stop 05/19/23 14:14:00 Anesthesia Times Last Modified By: Adry Troy RN 05/19/23 14:14:29 Case Attendance FTPM Entry 1 Entry 2 Entry 3 Case Attendee Neymar Willingham MD, RN, Adry Alanis RN, [place] A Role Performed Surgeon - Primary Onion Topper - Primary Scrub - Primary Time In 05/19/23 14:09:00 05/19/23 14:09:00 05/19/23 14:09:00 Time Out 05/19/23 14:15:00 05/19/23 14:15:00 05/19/23 14:15:00 Procedure LUMBAR EPIDURAL STEROID LUMBAR EPIDURAL STEROID LUMBAR EPIDURAL STEROID INJECTION(.) INJECTION(.) INJECTION(.) Comments Last Modified By: Adry Troy RN, RN, Adry Lawrence RN 05/19/23 14:14:30 05/19/23 14:14:30 05/19/23 14:14:30 Entry 4 Case Attendee Nakul Montes Role Performed Tower Foreman Time In 05/19/23 14:09:00 Time Out 05/19/23 [...] Given Participants Annabelle TREVIZO, Tarsha Goodwin MD, Joshua D, [place]arg[place], Bryce Time Out Complete 05/19/23 14:09:00 Outcomes [...] and tissue Entry 1 Skin Integrity Intact, Henning, Warm, and Skin Abnormality No Dry Outcomes [...] Troy RN (more content not included)... Normal [facility] Main OR Preoperative Recordo n 05-19-2023 Main OR Preoperative Record Holding Area Document Type FTPM Summary Primary Physician: Neymar Willingham MD Finalized Date/Time: 05/19/23 13:52:06 Pt. Name: BARRY GALDAMEZ/Sex: 1955 Male Med Rec #: [id number] Physician: Neymar Willingham MD Financial #: [id number] Pt. Type: P Room/Bed: / Admit/Disch: 05/19/23 [...] Pain: Yes Comment: and glasses. Pain Comment: 510 lower back pain Operative Site Yes Marking: [...] By: Jennifer Mendieta RN 05/19/23 13:52 Normal [facility] Operative Reporton 3 Operative Report Patient: MANPREET GALDAMEZ Age: 67 years Sex: Male : 1955 Associated Diagnoses: None Author: Neymar Willingham MD Procedure Procedure: Lumbar Epidural Steroid Injection with [...] 13:40 EDT Respiratory Rate 14 br/min . [facility] Comment on above: Result Comment: Elec tronically Signed By: Tarsha FARFAN, Neymar Zelaya\.br\Date and Time Signed: 05/19/23 14:14 EDT Patient Correspondenceon Patient Correspondence [id number]#1.00CD: 127 [facility] Insurance Correspondence Off iceon 04-13-2023 Insurance Correspondence Office [id number]#1.00CD: 127 [facility] Consent for Treatmenton 03-21 Consent for Treatment [id number]#1.00CD: 127 [facility] Consultation Noteon 04-08-20 Consultation Note Patient: MANPREET GALDAMEZ Age: 67 years Sex: Male : [...] All Problems HTN (hypertension) / SNOMED CT 8826436784 / Confirmed Hip pain, left / SNOMED CT 0908472683 / Confirmed DJD Nocturia / SNOMED CT 669329653 / Confirmed Asthma / SNOMED CT 866987584 / Confirmed Impingement syndrome of right shoulder / SNOMED CT 932030296 / Confirmed Carpal tunnel syndrome of right wrist / SNOMED CT 56476600 / Confirmed Osteoarthritis / SNOMED CT 7243518707 / Confirmed Arthritis / SNOMED CT 6454435 / Confirmed Depression / SNOMED CT 11718233 / Confirmed Hypertension / SNOMED CT 3900630635 / Confirmed Erectile dysfunction / SNOMED CT 5290084278 / Confirmed Asymptomatic microscopic hematuria / SNOMED CT 1500206242 / Confirmed Weak urine stream / SNOMED CT 368049611 / Confirmed Screening PSA (prostate specific antigen) / SNOMED CT 809829851 / Confirmed Resolved: At risk for falls / SNOMED CT 351693816 Problem added when Risk for Falls Careplan [...] seated straight leg raise. Integumentary: Warm, Dry, Henning. Neurologic: Alert, Oriented. Psychiatric: Cooperative, Appropriate mood [...] sooner if necessary. ANABELL score: 60% Normal [facility] Comment on above: Result Comment: Elec tronically Signed By: Ariana Urena PA-C\.br\Date and Time Signed: 04/08/23 13:30 EDT\.br\Electronically Co-Signed By: García Castro DO\.br\Date and Time Co-Signed: 04/14/23 11:06 EDT Office/Clinic Note-Physician on 04-08-2023 Office/Clinic Note-Physician [id number]#1.00CD: 127 Normal [facility] Patient Correspondenceon Patient Correspondence [id number]#1.00CD: 127 Normal [facility] Patient Correspondence [id number]#1.00CD: 127 Normal [facility] Patient History Officeon Patient History Office [id number]#1.00CD: 127 Normal [facility] Office Visit (Cardiology)on 03-26-2023 Follow-up visit Diagnoses/Problems Assessed Coronary artery disease involving georgetown coronary artery of ge[place] heart without angina pectoris (414.01) (I25.10) Hypertension, benign (401.1) (I10) Mixed hyperlipidemia (272.2) (E78.2) Former smoker (V15.82) (Z87.891) quit as a teen Class 1 obesity with body mass index (BMI) of 34.0 to 34.9 in adult (278.00,V85.34) (E66.9,Z68.34) Orders Class 1 obesity with body mass index (BMI) of 34.0 to 34.9 in adult Healthy Weight Tips; Status:Complete - Retrospective Authorization; Done: [id number] Coronary artery disease involving ge[place] coronary artery of [place] heart without angina pectoris Start: Clopidogrel Bisulfate 75 MG Oral Tablet; ONE PILL THU -THU ( 5 TIMES WEEKLY) SocHx: Former smoker Tobacco Use Screening; Status:Complete; Done: [id number] Patient Instructions Please bring all medicines, vitamins, [...] In November 2021 he underwent non-ST elevation AK with primary revascularization of the LAD diagonal branch performed by Dr. Elieser Landers, utilizing a 2.5 x 34 mm [place] stent to the distal LAD, 2.75 x 18 mm [place] stent in the mid LAD, and a 2.25 x 18 mm [place] stent to the diagonal branch at the [...] Recorded: 26Mar2023 11:21AM Heart Rate64, R Radial Vqyrtkgk345, LUE, Sitting Quxmvngxg64, LUE, Sitting Height6 ft Nsnzqs543 lb BMI Sblvvxhoeb05.99 kg/m2 BSA Calculated2.37 Tobacco Useb) No PHQ-2 #1. Over the last 2 weeks have you felt down, depressed or hopeless? (If yes, answer PHQ-9 below)No PHQ-2 #2. Over the last 2 weeks have you felt little intere (more content not included)... Normal [facility] Tobacco Screening.on 023 Adult depression screening assessment No [facility] [facility] 250 DO Work Phone: Fall risk assessment a) No falls within the last year [facility] [facility] DO Work Phone: Tobacco use status CPHS b) No M [facility] [facility] 250 DO Work Phone: Consent for Treatmenton 12-19 Consent for Treatment [id number]#1.00CD: 127 Normal [facility] Consultation Noteon 01-10-20 Consultation Note Patient: MANPREET GALDAMEZ Age: 67 years Sex: Male : [...] All Problems HTN (hypertension) / SNOMED CT 2951901328 / Confirmed Hip pain, left / SNOMED CT 4378971535 / Confirmed DJD Nocturia / SNOMED CT 396551418 / Confirmed Asthma / SNOMED CT 854120271 / Confirmed Impingement syndrome of right shoulder / SNOMED CT 692634691 / Confirmed Carpal tunnel syndrome of right wrist / SNOMED CT 74086174 / Confirmed Osteoarthritis / SNOMED CT 0818552933 / Confirmed Arthritis / SNOMED CT 2031013 / Confirmed Depression / SNOMED CT 09372830 / Confirmed Hypertension / SNOMED CT 6018429003 / Confirmed Erectile dysfunction / SNOMED CT 1398254916 / Confirmed Asymptomatic microscopic hematuria / SNOMED CT 7322661358 / Confirmed Weak urine stream / SNOMED CT 569228924 / Confirmed Screening PSA (prostate specific antigen) / SNOMED CT 592720706 / Confirmed Resolved: At risk for falls / SNOMED CT 259534723 Problem added when Risk for Falls Careplan [...] of motion. Normal strength. Integumentary: Warm, Dry, Henning. Injection site well-healed Neurologic: Alert, Oriented. Psychiatric: [...] to follow-up as needed. ANABELL score: 6% [facility] Comment on above: Result Comment: Elec tronically Signed By: Ariana Urena PA-C\.br\Date and Time Signed: 01/09/23 13:29 EDT\.br\Electronically Co-Signed By: Ilya Bullock MD\.br\Date and Time Co-Signed: 01/14/23 11:33 EDT Office/Clinic Note-Physician on 01-09-2023 Office/Clinic Note-Physician [id number]#1.00C D:127 [facility] Patient Correspondenceon Patient Correspondence [id number]#1.00C D:127 [facility] Patient Correspondence [id number]#1.00C D:127 [facility] Patient History Officeon Patient History Office [id number]#1.00C D:127 [facility] Consent for Procedure/Surger yon 12-10-2022 Consent for Procedure/Surgery [id number]#1.00CD: 127 [facility] Consent for Treatmenton 11-18 Consent for Treatment [id number]#1.00CD: 127 [facility] Discharge Instructionson Discharge Instructions [id number]#1.00CD: 127 [facility] IntraOperative Documentson 0 12-10-2022 IntraOperative Documents [id number]#1.00CD: 127 [facility] Main OR Intraoperative Recor don 05-24-2023 Main OR Intraoperative Record IntraOp Document Type FTPM Summary Primary Physician: Ilya Bullock MD Finalized Date/Time: 12/10/22 14:35:07 Pt. Name: BARRY GALDAMEZ Tomeka Bryant/Sex: 1955 Male Med Rec #: [id number] Physician: Ilya Bullock MD Financial #: [id number] Pt. Type: P Room/Bed: / Admit/Disch: 12/10/22 13:26:05 - Institution: Case Times FTPM Entry 1 Patient Times In Room 12/10/22 14:27:00 Out Room 12/10/22 14:35:00 Procedure Times Start 12/10/22 14:30:00 Stop 12/10/22 14:34:00 Anesthesia Times Last Modified By: Iwona Alanis RN 12/10/22 14:34:40 Case Attendance FTPM Entry 1 Entry 2 Entry 3 Case Attendee Ara FARFAN, Ilya Alanis RN, Kendra Justice RN Role Performed Surgeon - Primary Onion Topper - Primary Scrub - Primary Time In 12/10/22 14:27:00 12/10/22 14:27:00 12/10/22 14:27:00 Time Out 12/10/22 14:35:00 12/10/22 14:35:00 12/10/22 14:35:00 Procedure LUMBAR EPIDURAL STEROID LUMBAR EPIDURAL STEROID LUMBAR EPIDURAL STEROID INJECTION(.) INJECTION(.) INJECTION(.) Comments Last Modified By: Annabelle TREVIZO, Iwona Alanis RN, Iwona Rodriguez RN 12/10/22 14:34:40 12/10/22 14:34:40 12/10/22 14:34:40 Entry 4 Case Attendee José BILLY(R)Ginny Role Performed Tower Foreman Time In 12/10/22 14:27:00 Time Out 12/10/22 [...] X-ray Applicable) PreOp Antibiotic No Time Out Ilya Bullock MD, Given Participants Iwona Alanis RN, Kenan RN, José Wagner RT(R), Ginny Time Out [...] Procedure Yes Primary Surgeon Ilya Bullock MD Start 12/10/22 14:30:00 Stop 12/10/22 14:34:00 Anesthesia Type [...] and tissue Entry 1 Skin Integrity Intact, Henning, Warm, and Skin Abnormality No Dry Outcomes [...] Met? Yes (more content not included)... Normal [facility] Main OR Preoperative Recordo n 12-10-2022 Main OR Preoperative Record Holding Area Document Type FT Summary Primary Physician: Ilya Bullock MD Finalized Date/Time: 12/10/22 13:34:32 Pt. Name: MARIELAAlessandroBARRY D.O.B./Sex: 1955 Male Med Rec #: [id number] Physician: Ilya Bullock MD Financial #: [id number] Pt. Type: P Room/Bed: / Admit/Disch: 12/10/22 [...] 13:34 Jennifer Mendieta RN 12/10/22 13:34 Normal [facility] Patient Correspondenceon Patient Correspondence [id number]#1.00CD :127 Normal [facility] Office Visit (Cardiology)on 10-29-2022 Follow-up [...] medication change: 'blood pressure is doing fine' ABRRY GALDAMEZ is being seen for a 1 [...] Recorded: 29Oct2022 01:07PM Heart Rate66, R Radial Mpwrleck245, RUE, Sitting Hxccrkhoe81, RUE, Sitting Height6 ft Yjrlks425 lb BMI Duojfamdvp09.72 kg/m2 BSA Calculated2.37 Tobacco Useb) No Falls [...] affect . (more content not included)... Normal [facility] Office Visit (Cardiology)on 09-18-2022 Follow-up visit Diagnoses/Problems Assessed Coronary artery disease involving [place] coronary artery of [place] heart without angina pectoris (414.01) (I25.10) History [...] 18Sep2022 12:00PMRe (more content not included)... Normal [facility] Tobacco Screening.on 023 Adult depression screening assessment No [facility] [facility] 250 DO Work Phone: Fall risk assessment a) No falls within the last year [facility] [facility] 250 DO Work Phone: Tobacco use status CPHS b) No M [facility] [facility] 250 DO Work Phone: MRI LSPINE WO CONon 05-22-20 22 MRI LSPINE WO CON EXAMINATION: MRI LSP INE WO CON HISTORY: Degeneration of lumbosacral intervertebral [...] by: NATACHA RENDON Date: 2022-05-22 19:43 Normal [facility] XR FOREIGN BODY EYEon 2021 XR FOREIGN BODY EYE EXAMINATION: XR FORE IGN BODY EYE HISTORY: Foreign body in eye COMPARISON: No relevant comparison available. FINDINGS: ORBITS: Negative for a metallic foreign body. OTHER: Negative. IMPRESSION: No metallic foreign body in the orbits Electronically authenticated by: NATACHA RENDON Date: 2022-05-22 14:05 Normal [facility] CULTURE BLOODon 05-01-2022 Microscopic examination of blood, culture Culture Observations: Anaerobic bottle only positive Culture Observations: BCID- Staph epidermidis Culture Observations: NO GROWTH AT 5 DAYS IN AEROBIC BOTTLE. Culture Observations: METHICILLIN RESISTANT STAPH EPIDERMIDIS ISOLATED. PLEASE FOLLOW APPROPRIATE ISOLATION PROCEDURES. Culture Observations: FAXED RESULT TO ER PER YAKOV 04/28 @ 1015 Isolate 1 Staphylococcus epidermidis Growth of ORGANISM 1 Staphylococcus epidermidis ANTIBIOTIC M.I.C RX STATUS Beta-Lactamase Neg NEG F Cefoxitin Screen Pos POS F Benzylpenicillin >=0.5 R F Ciprofloxacin <=0.5 S F Levofloxacin <=0.12 S F Inducible Clindamycin Resistance Neg NEG F Erythromycin >=8 R F Clindamycin >=8 R F Quinupristin/Dalfopristi n <=0.25 S F Linezolid 1 S F Vancomycin 2 S F Tetracycline 2 S F Rifampicin <=0.5 S F Trimethoprim/Sulfamethox azole <=10 S F Oxacillin >=4 R F Normal [facility] Comment on above: Performed By: #### H STROPN #### [facility] [address] [place] [address] Dr. Troy Hickey BLOOD CULTURE ID PANELon A. baumannii Not detected Normal NOT DETECTED [facility] Comment on above: Performed By: #### B CID2 #### [facility] [address] [place] [address] Dr. Troy Hickey Bacteriodes fragilis Not detected Normal NOT DETECTED [facility] Comment on above: Performed By: #### B CID2 #### [facility] [address] [place] [address] Dr. Troy BUSTOSD CONTROLS PASSED Normal [facility] Comment on above: Performed By: #### B CID2 #### [facility] [address] [place] [address] Dr. Troy BUSTOSDBTHD BLOOD CULTURE BOTTLE INFORMATION Normal [facility] Comment on above: Performed By: #### B CID2 #### [facility] [address] [place] [address] Dr. Troy Hickey BCIDHD1 ANTIMICROBIAL RESIST ANCE GENES Normal [facility] Comment on above: Performed By: #### B CID2 #### [facility] [address] [place] [address] Dr. Troy Hickey BCIDHD2 SEE BELOW [facility] Comment on above: Result Comment: Note : Antimicrobial resitance can occur via multiple mechanisms. A Not Detected result for the [employer] antomicrobial resistance gene assays does not indicate antimicrobial susceptibility. Subculturing is required for species identification and susceptibility testing of isolates. Performed By: #### B CID2 #### [facility] [address] [place] [address] Dr. Troy Hickey BCIDHD3 Positive Normal [facility] Comment on above: Performed By: #### B CID2 #### [facility] [address] [place] [address] Dr. Troy Hickey BCIDHD4 Negative Normal [facility] Comment on above: Performed By: #### B CID2 #### [facility] [address] [place] [address] Dr. Troy Hickey BCIDHD5 YEAST Normal [facility] Comment on above: Performed By: #### B CID2 #### [facility] [address] [place] [address] Dr. Troy Hickey Bottle Set: Set 2 Normal [facility] Comment on above: Performed By: #### B CID2 #### [facility] [address] [place] [address] Dr. Troy Hickey Bottle: Anaerobic Normal [facility] Comment on above: Performed By: #### B CID2 #### [facility] [address] [place] [address] Dr. Troy Hickey C. neoformans/gattii Not detected Normal NOT DETECTED [facility] Comment on above: Performed By: #### B CID2 #### [facility] [address] [place] [address] Dr. Troy Hickey Eunice albicans Not detected Normal NOT DETECTED [facility] Comment on above: Performed By: #### B CID2 #### [facility] [address] [place] [address] Dr. Troy Hikcey Eunice auris Not detected Normal NOT DETECTED [facility] Comment on above: Performed By: #### B CID2 #### [facility] [address] [place] [address] Dr. Troy Hickey Eunice glabrata Not detected Normal NOT DETECTED [facility] Comment on above: Performed By: #### B CID2 #### [facility] [address] [place] [address] Dr. Troy Hickey Eunice Krusei Not detected Normal NOT DETECTED [facility] Comment on above: Performed By: #### B CID2 #### [facility] [address] [place] [address] Dr. Troy Hickey Eunice Parapsilosis Not detected Normal NOT DETECTED [facility] Comment on above: Performed By: #### B CID2 #### [facility] [address] [place] [address] Dr. Troy Hickey Euince Tropicalis Not detected Normal NOT DETECTED [facility] Comment on above: Performed By: #### B CID2 #### [facility] [address] [place] [address] Dr. Troy Hickey CTX-M Resistant Gene Not Applicable Normal NOT DETECTED [facility] Comment on above: Performed By: #### B CID2 #### [facility] [address] [place] [address] Dr. Troy Hickey E. Cloacae complex Not detected Normal NOT DETECTED [facility] Comment on above: Performed By: #### B CID2 #### [facility] [address] [place] [address] Dr. Troy Hickey E. faecalis Not detected Normal NOT DETECTED [facility] Comment on above: Performed By: #### B CID2 #### [facility] [address] [place] [address] Dr. Troy Hickey E. faecium Not detected Normal NOT DETECTED [facility] Comment on above: Performed By: #### B CID2 #### [facility] [address] [place] [address] Dr. Troy Hickey Enterobacteriaceae Not detected Normal NOT DETECTED [facility] Comment on above: Performed By: #### B CID2 #### [facility] [address] [place] [address] Dr. Troy Hickey Escherichia coli Not detected Normal NOT DETECTED [facility] Comment on above: Performed By: #### B CID2 #### [facility] [address] [place] [address] Dr. Troy Hickey H. influenzae Not detected Normal NOT DETECTED [facility] Comment on above: Performed By: #### B CID2 #### [facility] [address] [place] [address] Dr. Troy Hickey IMP Resistant Gene Not Applicable Normal NOT DETECTED [facility] Comment on above: Performed By: #### B CID2 #### [facility] [address] [place] [address] Dr. Troy Hickey K. oxytoca Not detected Normal NOT DETECTED [facility] Comment on above: Performed By: #### B CID2 #### [facility] [address] [place] [address] Dr. Troy Hickey K. pneumoniae Not detected Normal NOT DETECTED [facility] Comment on above: Performed By: #### B CID2 #### [facility] [address] [place] [address] Dr. Troy Hickey Klebsiella aerogenes Not detected Normal NOT DETECTED [facility] Comment on above: Performed By: #### B CID2 #### [facility] [address] [place] [address] Dr. Troy Hickey KPC Resistant Gene Not detected Normal NOT DETECTED [facility] Comment on above: Performed By: #### B CID2 #### [facility] [address] [place] [address] Dr. Troy Hickey List. monocytogenes Not detected Normal NOT DETECTED [facility] Comment on above: Performed By: #### B CID2 #### [facility] [address] [place] [address] Dr. Troy Hickey Mcr-1 Resistant Gene Not Applicable Normal NOT DETECTED [facility] Comment on above: Performed By: #### B CID2 #### [facility] [address] [place] [address] Dr. Troy Hickey mecA/C Detected Abnormal NOT DETECTED [facility] Comment on above: Performed By: #### B CID2 #### [facility] [address] [place] [address] Dr. Troy Hickey mecA/C MREJ Not Applicable Normal NOT DETECTED [facility] Comment on above: Performed By: #### B CID2 #### [facility] [address] [place] [address] Dr. Troy Hickey N. meningitidis Not detected Normal NOT DETECTED [facility] Comment on above: Performed By: #### B CID2 #### [facility] [address] [place] [address] Dr. Troy Hickey NDM Resistant Gene Not Applicable Normal NOT DETECTED [facility] Comment on above: Performed By: #### B CID2 #### [facility] [address] [place] [address] Dr. Troy Hickey Oxa-48-like Not Applicable Normal NOT DETECTED [facility] Comment on above: Performed By: #### B CID2 #### [facility] [address] [place] [address] Dr. Troy Hickey Proteus Not detected Normal NOT DETECTED [facility] Comment on above: Performed By: #### B CID2 #### [facility] [address] [place] [address] Dr. Troy Hickey Pseud. aeruginosa Not detected Normal NOT DETECTED [facility] Comment on above: Performed By: #### B CID2 #### [facility] [address] [place] [address] Dr. Troy Hickey S. maltophilia Not detected Normal NOT DETECTED [facility] Comment on above: Performed By: #### B CID2 #### [facility] [address] [place] [address] Dr. Troy Hickey Salmonella Not detected Normal NOT DETECTED [facility] Comment on above: Performed By: #### B CID2 #### [facility] [address] [place] [address] Dr. Troy Hickey Seratia marcescens Not detected Normal NOT DETECTED [facility] Comment on above: Performed By: #### B CID2 #### [facility] [address] [place] [address] Dr. Troy Hickey Site: right arm Normal [facility] Comment on above: Performed By: #### B CID2 #### [facility] [address] [place] [address] Dr. Troy Hickey Staph. aureus Not detected Normal NOT DETECTED [facility] Comment on above: Performed By: #### B CID2 #### [facility] [address] [place] [address] Dr. Troy Hickey Staph. epidermidis Detected Abnormal NOT DETECTED [facility] Comment on above: Performed By: #### B CID2 #### [facility] [address] [place] [address] Dr. Troy Hickey Staph. lugdunensis Not detected Normal NOT DETECTED [facility] Comment on above: Performed By: #### B CID2 #### [facility] [address] [place] [address] Dr. Troy Hickey Staphylococcus Detected Abnormal NOT DETECTED [facility] Comment on above: Performed By: #### B CID2 #### [facility] [address] [place] [address] Dr. Troy Hickey Strep. agalactiae Not detected Normal NOT DETECTED [facility] Comment on above: Performed By: #### B CID2 #### [facility] [address] [place] [address] Dr. Troy Hickey Strep. pneumoniae Not detected Normal NOT DETECTED [facility] Comment on above: Performed By: #### B CID2 #### [facility] [address] [place] [address] Dr. Troy Hickey Strep. pyogenes Not detected Normal NOT DETECTED [facility] Comment on above: Performed By: #### B CID2 #### [facility] [address] [place] [address] Dr. Troy Hickey Streptococcus Not detected Normal NOT DETECTED [facility] Comment on above: Performed By: #### B CID2 #### [facility] [address] [place] [address] Dr. Troy Hickey Franc/B Resist. Gene Not detected Normal NOT DETECTED [facility] Comment on above: Performed By: #### B CID2 #### [facility] [address] [place] [address] Dr. Troy Hickey VIM Resistant Gene Not Applicable Normal NOT DETECTED [facility] Comment on above: Performed By: #### B CID2 #### [facility] [address] [place] [address] Dr. Troy Hickey BNPon 04-25-2022 Natriuretic peptide B (Bld) [Mass/Vol] 239.0 pg/mL Normal <=900.0 [facility] Comment on above: Performed By: #### B NATIONAL FLATBED TRUCK DRIVER, HSTROPN, CMP #### [facility] [address] [place] [address] Dr. Troy Hickey CBC AUTO DIFFon 04-25-2022 BASO # 0.1 103/ul Normal 0.0-0.1 [facility] Comment on above: Performed By: #### H STROPN #### [facility] [address] [place] [address] Dr. Troy Hickey Basophils/100 WBC (Bld) 0.3 % Normal 0.2-2.0 [facility] Comment on above: Performed By: #### H STROPN #### [facility] [address] [place] [address] Dr. Troy Hickey EO # 0.0 103/ul Normal 0.0-0.7 [facility] Comment on above: Performed By: #### H STROPN #### [facility] [address] [place] [address] Dr. Troy Hickey Eosinophils/100 WBC (Bld) 0.1 % Critically low 0.9-7.0 [facility] Comment on above: Performed By: #### H STROPN #### [facility] [address] [place] [address] Dr. Troy Hickey Erythrocyte distribution width (RBC) [Ratio] 13.5 % Normal 11.0-15.0 [facility] Comment on above: Performed By: #### H STROPN #### [facility] [address] [place] [address] Dr. Troy Hickey Hematocrit (Bld) [Volume fraction] 33.0 % Critically low 42.0-54.0 [facility] Comment on above: Performed By: #### H STROPN #### [facility] [address] [place] [address] Dr. Troy Hickey Hemoglobin (Bld) [Mass/Vol] 10.4 g/dL Critically low 14.0-18.0 [facility] Comment on above: Performed By: #### H STROPN #### [facility] [address] [address] [address] Troy Hickey IG # 0.08 10e3/ul Critically high 0.00-0.03 [facility] Comment on above: Performed By: #### H STROPN #### [facility] [address] [address] [address] Troy Hickey IG % 0.5 % Normal 0.0-0.5 [facility] Comment on above: Performed By: #### H STROPN #### [facility] [address] [place] [address] Dr. Troy Hickey LYMPH # 0.8 103/ul Critically low 1.2-3.8 [facility] Comment on above: Performed By: #### H STROPN #### [facility] [address] [place] [address] Dr. Troy Hickey Lymphocytes/100 WBC (Bld) 4.3 % Critically low 20.5-60.0 [facility] Comment on above: Performed By: #### H STROPN #### [facility] [address] [place] [address] Dr. Troy Hickey MANUAL DIFF REQ NO Normal [facility] Comment on above: Performed By: #### H STROPN #### [facility] [address] [address] [address] Troy Hcikey MCH (RBC) [Entitic mass] 25.3 pg Critically low 25.9-34.0 [facility] Comment on above: Performed By: #### H STROPN #### [facility] [address] [place] [address] Dr. Troy Hickey MCHC (RBC) [Mass/Vol] 31.5 g/dL Normal 29.9-35.2 [facility] Comment on above: Performed By: #### H STROPN #### [facility] [address] [place] [address] Dr. Troy Hickey MCV (RBC) [Entitic vol] 80.3 fL Normal 80.0-94.0 [facility] Comment on above: Performed By: #### H STROPN #### [facility] [address] [place] [address] Dr. Troy Hickey MONO # 0.6 103/ul Normal 0.3-0.8 [facility] Comment on above: Performed By: #### H STROPN #### [facility] [address] [place] [address] Dr. Troy Hickey Monocytes/100 WBC (Bld) 3.4 % Normal 1.7-12.0 [facility] Comment on above: Performed By: #### H STROPN #### [facility] [address] [place] [address] Dr. Troy Hickey NEUT # 16.0 103/ul Critically high 1.4-6.5 [facility] Comment on above: Performed By: #### H STROPN #### [facility] [address] [place] [address] Dr. Troy Hickey Neutrophils/100 WBC (Bld) 91.4 % Critically high 43.0-75.0 [facility] Comment on above: Performed By: #### H STROPN #### [facility] [address] [place] [address] Dr. Troy Hickey Platelet mean volume (Bld) [Entitic vol] 8.9 fL Critically low 9.5-13.5 [facility] Comment on above: Performed By: #### H STROPN #### [facility] [address] [place] [address] Dr. Troy Hickey PLT 269 103/ul Normal 150-450 [facility] Comment on above: Performed By: #### H STROPN #### [facility] [address] [place] [address] Dr. Troy Hickey RBC 4.11 106/ul Critically low 4.70-6.10 [facility] Comment on above: Performed By: #### H STROPN #### [facility] [address] [place] [address] Dr. Troy Hickey WBC 17.5 103/ul Critically high 4.0-11.0 [facility] Comment on above: Performed By: #### H STROPN #### [facility] [address] [place] [address] Dr. Troy Hickey CULTURE BLOODon 04-25-2022 Microscopic examination of blood, culture Culture Observations: NO GROWTH AT 5 DAYS. Normal [facility] Comment on above: Performed By: #### H STROPN #### [facility] [address] [place] [address] Dr. Troy Hickey Covid-19 PCR (CVDTB)on SARS-CoV-2 (COVID-19) RNA ERNIE+probe Ql (Unsp spec) Not detected Normal NOT DETECTED [facility] Comment on above: Result Comment: When diagnostic [...] for this test is supported by the [place] of [employer] Human Service's declaration that [...] longer be used). Performed By: #### C VDTBH #### [facility] [address] [place] [address] Dr. Troy Hickey INFLUENZA A AND B AGon 04-25 INFLUENZA A AG Negative Normal NEGATIVE SEE COMMENT [facility] Comment on above: Performed By: #### I NFLUAB #### [facility] [address] [place] [address] Dr. Troy Hickey INFLUENZA B AG Negative Normal NEGATIVE SEE COMMENT [facility] Comment on above: Performed By: #### I NFLUAB #### [facility] [address] [place] [address] Dr. Troy Hickey INTERNAL CONTROLS Within Normal Limits Normal Wi thin Normal Limits [facility] Comment on above: Performed By: #### I NFLUAB #### [facility] [address] [place] [address] Dr. Troy Hickey LACTATE/LACTIC ACIDon 2021 Lactate [Moles/Vol] 1.5 mmol/L Normal 0.4-1.9 [facility] Comment on above: Performed By: #### L ACT #### [facility] [address] [place] [address] Dr. Troy Hickey PROF 14(COMP METB)on 022 Albumin [Mass/Vol] 3.6 g/dL Normal 3.4-5.0 [facility] Comment on above: Performed By: #### B NATIONAL [employer]ATBED TRUCK DRIVER, HSTROPN, CMP #### [facility] [address] [place] [address] Dr. Troy Hickey Albumin/Globulin [Mass ratio] 0.8 {ratio} Normal [facility] Comment on above: Performed By: #### B NATIONAL [employer]ATBED TRUCK DRIVER, HSTROPN, CMP #### [facility] [address] [place] [address] Dr. Troy Hickey ALP [Catalytic activity/Vol] 144 U/L Critically high 46-116 [facility] Comment on above: Performed By: #### B NATIONAL FLATBED TRUCK DRIVER, HSTROPN, CMP #### [facility] [address] [place] [address] Dr. Troy Hickey ALT [Catalytic activity/Vol] 17 U/L Normal 16-63 [facility] Comment on above: Performed By: #### B NATIONAL FLATBED TRUCK DRIVER, HSTROPN, CMP #### [facility] [address] [place] [address] Dr. Troy Hickey Anion gap [Moles/Vol] 9.0 mmol/L Normal [facility] Comment on above: Performed By: #### B NATIONAL FLATBED TRUCK DRIVER, HSTROPN, CMP #### [facility] [address] [place] [address] Dr. Troy Hickey AST [Catalytic activity/Vol] 15 U/L Normal 15-37 [facility] Comment on above: Performed By: #### B NATIONAL FLATBED TRUCK DRIVER, HSTROPN, CMP #### [facility] [address] [address] [address] Troy Hickey Bilirubin [Mass/Vol] 0.7 mg/dL Normal 0.2-1.0 [facility] Comment on above: Performed By: #### B NATIONAL FLATBED TRUCK DRIVER, HSTROPN, CMP #### [facility] [address] [place] [address] Dr. Troy Hickey Calcium [Mass/Vol] 9.0 mg/dL Normal 8.5-10.1 [facility] Comment on above: Performed By: #### B NATIONAL FLATBED TRUCK DRIVER, HSTROPN, CMP #### [facility] [address] [place] [address] Dr. Troy Hickey Chloride [Moles/Vol] 101 mmol/L Normal 98-107 [facility] Comment on above: Performed By: #### B NATIONAL FLATBED TRUCK DRIVER, HSTROPN, CMP #### [facility] [address] [place] [address] Dr. Troy Hickey CO2 [Moles/Vol] 29.0 mmol/L Normal 21.0-32.0 [facility] Comment on above: Performed By: #### B NATIONAL FLATBED TRUCK DRIVER, HSTROPN, CMP #### [facility] [address] [place] [address] Dr. Troy Hickey Creatinine [Mass/Vol] 0.94 mg/dL Normal 0.70-1.30 [facility] Comment on above: Performed By: #### B NATIONAL FLATBED TRUCK DRIVER, HSTROPN, CMP #### [facility] [address] [place] [address] Dr. Troy Hickey EGFR-AF CAMEROONIAN >60 Normal >=60 [facility] Comment on above: Performed By: #### B NATIONAL FLATBED TRUCK DRIVER, HSTROPN, CMP #### [facility] [address] [place] [address] Dr. Troy Hickey EGFR-NON AF CAMEROONIAN >60 Normal >=60 [facility] Comment on above: Performed By: #### B NATIONAL FLATBED TRUCK DRIVER, HSTROPN, CMP #### [facility] [address] [place] [address] Dr. Troy Hickey Globulin (S) [Mass/Vol] 4.3 g/dL Normal [facility] Comment on above: Performed By: #### B NATIONAL FLATBED TRUCK DRIVER, HSTROPN, CMP #### [facility] [address] [place] [address] Dr. Troy Hickey Glucose [Mass/Vol] 187 mg/dL Critically high 74-106 [facility] Comment on above: Performed By: #### B NATIONAL FLATBED TRUCK DRIVER, HSTROPN, CMP #### [facility] [address] [place] [address] Dr. Troy Hickey Potassium [Moles/Vol] 4.0 mmol/L Normal 3.5-5.1 [facility] Comment on above: Performed By: #### B NATIONAL FLATBED TRUCK DRIVER, HSTROPN, CMP #### [facility] [address] [place] [address] Dr. Troy Hickey Protein [Mass/Vol] 7.9 g/dL Normal 6.4-8.2 [facility] Comment on above: Performed By: #### B NATIONAL FLATBED TRUCK DRIVER, HSTROPN, CMP #### [facility] [address] [place] [address] Dr. Troy Hickey Sodium [Moles/Vol] 135 mmol/L Critically low 136-145 [facility] Comment on above: Performed By: #### B NATIONAL FLATBED TRUCK DRIVER, HSTROPN, CMP #### [facility] [address] [address] [address] Troy Hickey Urea nitrogen [Mass/Vol] 15.0 mg/dL Normal 7.0-18.0 [facility] Comment on above: Performed By: #### B NATIONAL FLATBED TRUCK DRIVER, HSTROPN, CMP #### [facility] [address] [place] [address] Dr. Troy Hickey Urea nitrogen/Creatinine [Mass ratio] 16.0 mg/mg Normal [facility] Comment on above: Performed By: #### B NATIONAL FLATBED TRUCK DRIVER, HSTROPN, CMP #### [facility] [address] [place], [place] [id number] Dr. Troy Hickey TROPONIN, HIGH SENSITIVITYon 04-25-2022 HSTROP 11.1 pg/mL Normal 4.0-76.1 [facility] Comment on above: Result Comment: CUT- OFF POINTS HAVE BEEN ESTABLISHED BASED ON THE FOURTH UNIVERSAL DEFINITIONS OF MYOCARDIAL INFARCTION. THE UPPER REFERENCE LIMIT (URL) OF TROPONIN, DEFINED THE 99TH PERCENTILE OF cTnI DISTRIBUTION IN A REFERENCE POPULATION, HAS BEEN CONFIRMED THE DECISION THRESHOLD FOR [place] DIAGNOSIS. Performed By: #### B NATIONAL FLATBED TRUCK DRIVER, HSTROPN, CMP #### [facility] [address] [place], [place] [address] Dr. Troy Hickey XR CHEST 1 Von [...] by: SANDER MOCTEZUMA Date: 2022-04-25 15:38 Normal [facility] XR CHEST 2 Von 04-23-2022 XR CHEST 2 V EXAMINATION: XR CHES T 2 V HISTORY: Cough , shortness of [...] by: JEAN-PAUL SALAS Date: 2022-04-23 11:36 Normal [facility] XR LSPINE MIN 4 VIEWSon 03-20 XR LSPINE MIN 4 VIEWS EXAMINATION: XR LS PINE MIN 4 VIEWS HISTORY: Pain of left [...] by: JEAN-PAUL SALAS Date: 2022-04-02 15:11 Normal [facility] Tobacco Screening.on Tobacco use status [facility]PHS b) No [facility] y [facility] DO Work Phone: PROF 14(COMP METB)on 022 Albumin [Mass/Vol] 3.5 g/dL Normal 3.4-5.0 [facility] Comment on above: Performed By: #### C MP #### [facility] [address] [place] [address] Dr. Troy Hickey Albumin/Globulin [Mass ratio] 0.9 {ratio} Normal [facility] Comment on above: Performed By: #### C MP #### [facility] [address] [place] [address] Dr. Troy Hickey ALP [Catalytic activity/Vol] 104 U/L Normal 46-116 [facility] Comment on above: Performed By: #### C MP #### [facility] [address] [place] [address] Dr. Troy Hickey ALT [Catalytic activity/Vol] 19 U/L Normal 16-63 [facility] Comment on above: Performed By: #### C MP #### [facility] [address] [address] [address] Troy Hickey Anion gap [Moles/Vol] 11.7 mmol/L Normal [facility] Comment on above: Performed By: #### C MP #### [facility] [address] [place] [address] Dr. Troy Hickey AST [Catalytic activity/Vol] 9 U/L Critically low 15-37 [facility] Comment on above: Performed By: #### C MP #### [facility] [address] [place] [address] Dr. Troy Hickey Bilirubin [Mass/Vol] 0.4 mg/dL Normal 0.2-1.0 [facility] Comment on above: Performed By: #### C MP #### [facility] [address] [place] [address] Dr. Troy Hickey Calcium [Mass/Vol] 8.7 mg/dL Normal 8.5-10.1 [facility] Comment on above: Performed By: #### C MP #### [facility] [address] [address] [address] Troy Hickey Chloride [Moles/Vol] 104 mmol/L Normal 98-107 [facility] Comment on above: Performed By: #### C MP #### [facility] [address] [place] [address] Dr. Troy Hickey CO2 [Moles/Vol] 28.9 mmol/L Normal 21.0-32.0 [facility] Comment on above: Performed By: #### C MP #### [facility] [address] [place] [address] Dr. Troy Hickey Creatinine [Mass/Vol] 1.02 mg/dL Normal 0.70-1.30 [facility] Comment on above: Performed By: #### C MP #### [facility] [address] [place] [address] Dr. Troy Hickey EGFR-AF CAMEROONIAN >60 Normal >=60 [facility] Comment on above: Performed By: #### C MP #### [facility] [address] [place] [address] Dr. Troy Hickey EGFR-NON AF CAMEROONIAN >60 Normal >=60 [facility] Comment on above: Performed By: #### C MP #### [facility] [address] [place] [address] Dr. Troy Hickey Globulin (S) [Mass/Vol] 3.8 g/dL Normal [facility] Comment on above: Performed By: #### C MP #### [facility] [address] [place] [address] Dr. Troy Hickey Glucose [Mass/Vol] 121 mg/dL Critically high 74-106 [facility] Comment on above: Performed By: #### C MP #### [facility] [address] [place], [place] [address] Dr. Troy Hickey Potassium [Moles/Vol] 4.6 mmol/L Normal 3.5-5.1 [facility] Comment on above: Performed By: #### C MP #### [facility] [address] [place], [place] [address] Dr. Troy Hickey Protein [Mass/Vol] 7.3 g/dL Normal 6.4-8.2 [facility] Comment on above: Performed By: #### C MP #### [facility] [address] [address] [address] Troy Hickey Sodium [Moles/Vol] 140 mmol/L Normal 136-145 [facility] Comment on above: Performed By: #### C MP #### [facility] [address] [address] [address] Troy Hickey Urea nitrogen [Mass/Vol] 45.0 mg/dL Critically high 7.0-18.0 [facility] Comment on above: Performed By: #### C MP #### [facility] [address] [address] [address] Troy Hickey Urea nitrogen/Creatinine [Mass ratio] 44.1 mg/mg Normal [facility] Comment on above: Performed By: #### C MP #### [facility] [address] [address] [address] Troy Hickey Tobacco Screening.on 022 Adult depression screening assessment No Kerbs [facility] DO Work Phone: Fall risk assessment b) One or more fall s in the last year [facility] 250 DO Work Phone: Tobacco use status CPHS b) No M [facility] 250 DO Work Phone: Complete Blood Count Auto Di ffon 11-26-2021 Basophils (Bld) [#/Vol] 0.1 10*3/uL Normal 0.0-0.2 [facility] Comment on above: Result Comment: PERF ORMED BY: [place] [address] PATHOLOGIST [employer]S MANAGER KAREN CORONADO M.D. Performed By: #### P TT, CBC, PT #### [address] Basophils/100 WBC (Bld) 1.1 % Normal . [facility] Comment on above: Performed By: #### P TT, CBC, PT #### [facility] [address] [place] [address] [place] Eosinophils (Bld) [#/Vol] 0.2 10*3/uL Normal 0.0-0.45 [facility] Comment on above: Performed By: #### P TT, CBC, PT #### [place] [address] [place] Eosinophils/100 WBC (Bld) 1.9 % Normal . [facility] Comment on above: Performed By: #### P TT, CBC, PT #### [facility] [address] [place] [address] Erythrocyte distribution width (RBC) [Ratio] 14.7 % Normal 12.0-14.8 [facility] Comment on above: Performed By: #### P TT, CBC, PT #### [address] Hematocrit (Bld) [Volume fraction] 36.6 % Low 38.8-50.0 [facility] Comment on above: Performed By: #### P TT, CBC, PT #### [facility] [address] [place] [address] [place] Hemoglobin (Bld) [Mass/Vol] 12.4 g/dL Low 13.0-17.0 [facility] Comment on above: Performed By: #### P TT, CBC, PT #### [facility] [address] [place] [address] [place] Lymphocytes (Bld) [#/Vol] 1.7 10*3/uL Normal 1.00-4.8 [facility] Comment on above: Performed By: #### P TT, CBC, PT #### [facility] [address] [place] [address] [place] Lymphocytes/100 WBC (Bld) 13.9 % Normal . [facility] Comment on above: Performed By: #### P TT, CBC, PT #### [facility] [address] MCH (RBC) [Entitic mass] 27.1 pg Low 27.5-35.2 [facility] Comment on above: Performed By: #### P TT, CBC, PT #### [facility] [address] MCV (RBC) [Entitic vol] 80.3 fL Low 83.5-101 [facility] Comment on above: Performed By: #### P TT, CBC, PT #### [facility] [address] Mean Corpuscular HGB Conc 33.7 g/dL Normal 32.5-35.6 [facility] Comment on above: Performed By: #### P TT, CBC, PT #### [facility] [address] [place] [address] [place] Monocytes (Bld) [#/Vol] 0.7 10*3/uL Normal 0.0-0.8 [facility] Comment on above: Performed By: #### P TT, CBC, PT #### [facility] [address] [place] [address] [place] Monocytes/100 WBC (Bld) 5.6 % Normal . [facility] Comment on above: Performed By: #### P TT, CBC, PT #### [facility] [address] [place] [address] [place] Neutrophils (Bld) [#/Vol] 9.2 10*3/uL High 1.8-7.7 [facility] Comment on above: Performed By: #### P TT, CBC, PT #### [facility] [address] [place] [address] [place] Neutrophils/100 WBC (Bld) 77.5 % Normal . [facility] Comment on above: Performed By: #### P TT, CBC, PT #### [facility] [address] Nucleated RBC/100 WBC (Bld) [Ratio] 0.0 % Normal 0-0.5 [facility] Comment on above: Performed By: #### P TT, CBC, PT #### [address] Platelet mean volume (Bld) [Entitic vol] 6.9 fL Normal 6.6-10.1 [facility] Comment on above: Performed By: #### P TT, CBC, PT #### [address] Platelets (Bld) [#/Vol] 272 10*3/uL Normal 150-450 [facility] Comment on above: Performed By: #### P TT, CBC, PT #### [address] RBC (Bld) [#/Vol] 4.56 10*6/uL Normal 3.90-5.60 [facility] Comment on above: Performed By: #### P TT, CBC, PT #### [address] WBC (Bld) [#/Vol] 11.9 10*3/uL High 4.5-11.0 [facility] Comment on above: Performed By: #### P TT, CBC, PT #### [address] Comprehensive Metabolic Pane yvette 11-26-2021 Albumin [Mass/Vol] 3.5 g/dL Normal 3.2-5.5 [facility] Comment on above: Performed By: #### P TT, CBC, PT #### [address] Albumin/Globulin [Mass ratio] 0.9 {ratio} Normal [facility] Comment on above: Performed By: #### P TT, CBC, PT #### [address] ALP [Catalytic activity/Vol] 74 U/L Normal 32-92 [facility] Comment on above: Performed By: #### P TT, CBC, PT #### [facility] [address] [place] [address] [place] ALT [Catalytic activity/Vol] 21 U/L Normal 10-60 [facility] Comment on above: Performed By: #### P TT, CBC, PT #### [facility] [address] AST [Catalytic activity/Vol] 27 U/L Normal 10-42 [facility] Comment on above: Performed By: #### P TT, CBC, PT #### [facility] [address] Bilirubin [Mass/Vol] 0.8 mg/dL Normal 0.3-1.2 [facility] Comment on above: Performed By: #### P TT, CBC, PT #### [facility] [address] Calcium [Mass/Vol] 8.9 mg/dL Normal 8.2-10.2 [facility] Comment on above: Performed By: #### P TT, CBC, PT #### [facility] [address] [place] [address] [place] Chloride [Moles/Vol] 99 mmol/L Normal 95-114 [facility] Comment on above: Performed By: #### P TT, CBC, PT #### [facility] [address] [place] [address] [place] CO2 [Moles/Vol] 24.4 mmol/L Normal 22.0-30.0 [facility] Comment on above: Performed By: #### P TT, CBC, PT #### [facility] [address] [place] [address] [place] Creatinine [Mass/Vol] 0.75 mg/dL Normal 0.64-1.27 [facility] Comment on above: Performed By: #### P TT, CBC, PT #### [facility] [address] [place] [address] [place] Creatinine Clr Calc Pharmacy 123.92 Normal [facility] Comment on above: Result Comment: PERF ORMED BY: [place] [address] PATHOLOGIST [employer]ATION [employer] CONTR[employer]S MANAGER KAREN CORONADO M.D. Performed By: #### P TT, CBC, PT #### [facility] [address] Estimated GFR ( Sunitha > 60 Normal [facility] Comment on above: Result Comment: GFR estimated reference range: According to KDOQI guidelines, <60 ml/min/1.73m2 is sufficient to diagnose a patient with chronic kidney disease. Performed By: #### P TT, CBC, PT #### [facility] [address] Estimated GFR (Non- Am > 60 Normal [facility] Comment on above: Performed By: #### P TT, CBC, PT #### [address] Globulin (S) [Mass/Vol] 3.7 g/dL Normal [facility] Comment on above: Performed By: #### P TT, CBC, PT #### [facility] [address] Glucose [Mass/Vol] 122 mg/dL High 70-100 [facility] Comment on above: Result Comment: [place] Glucose Reference Range is dependent on time and content of last meal. Glucose of more than 200 mg/dL in a nonstressed, ambulatory subject supports the diagnosis of Diabetes Mellitus. ADA recommended reference range Performed By: #### P TT, CBC, PT #### [facility] [address] [place] [address] [place] Potassium [Moles/Vol] 4.0 mmol/L Normal 3.5-5.1 [facility] Comment on above: Performed By: #### P TT, CBC, PT #### [facility] [address] Protein [Mass/Vol] 7.2 g/dL Normal 6.1-7.9 [facility] Comment on above: Performed By: #### P TT, CBC, PT #### [facility] [address] Sodium [Moles/Vol] 133 mmol/L Low 136-146 [facility] Comment on above: Performed By: #### P TT, CBC, PT #### [facility] [address] Urea nitrogen [Mass/Vol] 8 mg/dL Low 9-23 [facility] Comment on above: Performed By: #### P TT, CBC, PT #### [facility] [address] ECG 12 lead ECGon 11-26-2021 ECG 12 lead ECG [facility] [place] [address] [place] [address] Electrocardiograph Report Signed Patient: Barry Galdamez MR#: [id number] 41 : 1955 Acct:[id number] Age/Sex: 66 / M ADM Date: 11/23/21 Loc: Room: [address] [place] [address] Type: DIS IN Attending Dr: Merline Elias [...] 11/26/2021 1:04:36 PM Referred By: Electronically Signed By:HCÉTOR SALDIVAR DO Transcribed By: MUS Signed By Héctor Saldivar DO 11/26 1304 Normal [facility] Troponin I High Sensitivityo n 11-26-2021 Troponin I High Sensitivity 1239 pg/mL Off scale high 0-20 [facility] Comment on above: Result Comment: Resu lts called at 0713 on 11/26/21 PERFORMED BY: [place] [address] PATHOLOGIST [employer]ATION [employer] CONTR[employer]S MANAGER KAREN CORONADO M.D. Performed By: #### P TT, CBC, PT #### [facility] [address] Basic Metabolic Panelon 05-0 Calcium [Mass/Vol] 8.7 mg/dL Normal 8.2-10.2 [facility] Comment on above: Performed By: #### P TT, CBC, PT #### [facility] [address] Chloride [Moles/Vol] 102 mmol/L Normal 95-114 [facility] Comment on above: Performed By: #### P TT, CBC, PT #### [facility] [address] CO2 [Moles/Vol] 27.7 mmol/L Normal 22.0-30.0 [facility] Comment on above: Performed By: #### P TT, CBC, PT #### [facility] [address] Creatinine [Mass/Vol] 0.74 mg/dL Normal 0.64-1.27 [facility] Comment on above: Performed By: #### P TT, CBC, PT #### [facility] [address] [place] [address] [place] Creatinine Clr Calc Pharmacy 123.20 [facility] Comment on above: Result Comment: PERF ORMED BY: [place] [address] PATHOLOGIST [employer]ATION [employer] CONTR[employer]S MANAGER KAREN CORONADO M.D. Performed By: #### P TT, CBC, PT #### [facility] [address] [place] [address] [place] Estimated GFR ( Sunitha > 60 Normal [facility] Comment on above: Result Comment: GFR estimated reference range: According to KDOQI guidelines, <60 ml/min/1.73m2 is sufficient to diagnose a patient with chronic kidney disease. Performed By: #### P TT, CBC, PT #### [address] Estimated GFR (Non- Am > 60 Normal [facility] Comment on above: Performed By: #### P TT, CBC, PT #### [facility] [address] Glucose [Mass/Vol] 114 mg/dL High 70-100 [facility] Comment on above: Result Comment: [place] Glucose Reference Range is dependent on time and content of last meal. Glucose of more than 200 mg/dL in a nonstressed, ambulatory subject supports the diagnosis of Diabetes Mellitus. ADA recommended reference range Performed By: #### P TT, CBC, PT #### [facility] [address] [place] [address] Potassium [Moles/Vol] 3.8 mmol/L Normal 3.5-5.1 [facility] Comment on above: Performed By: #### P TT, CBC, PT #### [address] Sodium [Moles/Vol] 137 mmol/L Normal 136-146 [facility] Comment on above: Performed By: #### P TT, CBC, PT #### [address] Urea nitrogen [Mass/Vol] 9 mg/dL Normal 9-23 [facility] Comment on above: Performed By: #### P TT, CBC, PT #### [address] Complete Blood Count Auto Di ffon 11-25-2021 Basophils (Bld) [#/Vol] 0.1 10*3/uL Normal 0.0-0.2 [facility] Comment on above: Result Comment: PERF ORMED BY: [place] [address] PATHOLOGIST [employer]S MANAGER KAREN CORONADO M.D. Performed By: #### P TT, CBC, PT #### [place] [address] [place] Basophils/100 WBC (Bld) 1.6 % Normal . [facility] Comment on above: Performed By: #### P TT, CBC, PT #### [facility] [address] Eosinophils (Bld) [#/Vol] 0.5 10*3/uL High 0.0-0.45 [facility] Comment on above: Performed By: #### P TT, CBC, PT #### [facility] [address] [place] [address] [place] Eosinophils/100 WBC (Bld) 4.9 % Normal . [facility] Comment on above: Performed By: #### P TT, CBC, PT #### [facility] [address] [place] [address] Erythrocyte distribution width (RBC) [Ratio] 14.7 % Normal 12.0-14.8 [facility] Comment on above: Performed By: #### P TT, CBC, PT #### [address] Hematocrit (Bld) [Volume fraction] 34.0 % Low 38.8-50.0 [facility] Comment on above: Performed By: #### P TT, CBC, PT #### [facility] [address] [place] [address] Hemoglobin (Bld) [Mass/Vol] 11.5 g/dL Low 13.0-17.0 [facility] Comment on above: Performed By: #### P TT, CBC, PT #### [place] [address] [place] Lymphocytes (Bld) [#/Vol] 2.2 10*3/uL Normal 1.00-4.8 [facility] Comment on above: Performed By: #### P TT, CBC, PT #### [place] [address] [place] Lymphocytes/100 WBC (Bld) 23.9 % Normal . [facility] Comment on above: Performed By: #### P TT, CBC, PT #### [facility] [address] [place] [address] [place] MCH (RBC) [Entitic mass] 27.8 pg Normal 27.5-35.2 [facility] Comment on above: Performed By: #### P TT, CBC, PT #### [facility] [address] MCV (RBC) [Entitic vol] 82.3 fL Low 83.5-101 [facility] Comment on above: Performed By: #### P TT, CBC, PT #### [facility] [address] Mean Corpuscular HGB Conc 33.8 g/dL Normal 32.5-35.6 [facility] Comment on above: Performed By: #### P TT, CBC, PT #### [address] Monocytes (Bld) [#/Vol] 0.6 10*3/uL Normal 0.0-0.8 [facility] Comment on above: Performed By: #### P TT, CBC, PT #### [address] Monocytes/100 WBC (Bld) 6.4 % Normal . [facility] Comment on above: Performed By: #### P TT, CBC, PT #### [address] Neutrophils (Bld) [#/Vol] 5.8 10*3/uL Normal 1.8-7.7 [facility] Comment on above: Performed By: #### P TT, CBC, PT #### [place] [address] [place] Neutrophils/100 WBC (Bld) 63.2 % Normal . [facility] Comment on above: Performed By: #### P TT, CBC, PT #### [place] [address] [place] Nucleated RBC/100 WBC (Bld) [Ratio] 0.0 % Normal 0-0.5 [facility] Comment on above: Performed By: #### P TT, CBC, PT #### [place] [id number] [place] Platelet mean volume (Bld) [Entitic vol] 7.3 fL Normal 6.6-10.1 [facility] Comment on above: Performed By: #### P TT, CBC, PT #### [facility] [address] Platelets (Bld) [#/Vol] 231 10*3/uL Normal 150-450 [facility] Comment on above: Performed By: #### P TT, CBC, PT #### [facility] [address] RBC (Bld) [#/Vol] 4.13 10*6/uL Normal 3.90-5.60 [facility] Comment on above: Performed By: #### P TT, CBC, PT #### [facility] [address] WBC (Bld) [#/Vol] 9.2 10*3/uL Normal 4.5-11.0 [facility] Comment on above: Performed By: #### P TT, CBC, PT #### [facility] [address] ECG 12 lead ECGon 11-25-2021 ECG 12 lead ECG [facility] [place] [address] [place] [address] Electrocardiograph Report Signed Patient: Barry Galdamez MR#: [id number] 41 : 1955 Acct:[id number] Age/Sex: 66 / M ADM Date: 11/23/21 Loc: Room: [address] [place] [address] Type: DIS IN Attending Dr: Merline Elias [...] (183) on 11/25/2021 4:37:48 PM Referred By: NO Electronically Signed By:HÉCTOR SALDIVAR DO Transcribed By: RADHA Signed By Héctor Saldivar DO 11/25 1637 Normal [facility] echo transthoracicon [facility] echo transthoracic [facility] [place] [address] [place] [address] Echocardiogram Signed Patient: Barry Galdamez MR#: [id number] 41 : 1955 Acct:[id number] Age/Sex: 66 / M ADM Date: 11/23/21 Loc: Room: [address] [place] [address] Type: DIS IN Attending Dr: Merline Elias MD Ordering Provider: Maya Doyle MD Date of Service: 11/25/21/ [facility] echo transthoracic: chest pain Copies to: MD [...] mmHg RAP systole: 10.0 mmHg Transcribed By: KAITY Performed At: 11/25/21 1037 Signed By: Maribell Rivas MD 11/25/21 1541 Normal [facility] Partial Thromboplastin Timeo n 11-25-2021 aPTT Coag (Bld) [Time] 58.4 s High 25.1-36.5 [facility] Comment on above: Result Comment: PERF ORMED BY: [place] [address] PATHOLOGIST [employer]OMATION AND CONTROLS MANAGER KAREN CORONADO M.D. Performed By: #### P TT, CBC, PT #### [facility] [address] aPTT Coag (Bld) [Time] 59.8 s High 25.1-36.5 [facility] Comment on above: Order Comment: List the anticoagulant: HEPARIN, UNFRACTIONATED Result Comment: PERF ORMED BY: [place] [address] PATHOLOGIST [employer]OMATION [employer] CONTROLS MANAGER KAREN CORONADO M.D. Performed By: #### P TT #### [facility] [address] Prothrombin Time INRon 11-25 INR Coag (PPP) [Relative time] 1.2 {INR} Normal [facility] Comment on above: Result Comment: INR [...] heart valves: 3 - 4.5 PERFORMED BY: [place] [address] PATHOLOGIST AUTOMATION AND CONTROLS MANAGER KAREN CORONADO M.D. Performed By: #### P TT, CBC, PT #### [facility] [address] [place] [address] PT Coag (PPP) [Time] 13.7 s High 9.0-12.9 [facility] Comment on above: Performed By: #### P TT, CBC, PT #### [facility] [address] [place] [address] A1C with Estimated Average G luon 11-24-2021 Glucose [Mass/Vol] 131 mg/dL Normal [facility] Comment on above: Result Comment: PERF ORMED BY: [address] [place] [address] PATHOLOGIST AUTOMATION AND CONTROLS MANAGER KAREN CORONADO M.D. Performed By: #### P TT, CBC, PT #### [facility] [address] [place] [address] HbA1c (Bld) [Mass fraction] 6.2 % High 4.3-5.6 [facility] Comment on above: Result Comment: Incr eased risk for diabetes: 5.7 - 6.4 diabetes: >6.4 glycemic control for adults with diabetes: <7.0 Performed By: #### P TT, CBC, PT #### [facility] [address] [place] [address] Basic Metabolic Panelon Calcium [Mass/Vol] 8.2 mg/dL Normal 8.2-10.2 [facility] Comment on above: Performed By: #### P TT, CBC, PT #### [facility] [address] Chloride [Moles/Vol] 104 mmol/L Normal 95-114 [facility] Comment on above: Performed By: #### P TT, CBC, PT #### [facility] [address] CO2 [Moles/Vol] 26.5 mmol/L Normal 22.0-30.0 [facility] Comment on above: Performed By: #### P TT, CBC, PT #### [facility] [address] Creatinine [Mass/Vol] 0.82 mg/dL Normal 0.64-1.27 [facility] Comment on above: Performed By: #### P TT, CBC, PT #### [facility] [address] [place] [address] [place] Creatinine Clr Calc Pharmacy 121.60 [facility] Comment on above: Performed By: #### P TT, CBC, PT #### [facility] [address] Estimated GFR ( Sunitha > 60 [facility] Comment on above: Result Comment: GFR estimated reference range: According to KDOQI guidelines, <60 ml/min/1.73m2 is sufficient to diagnose a patient with chronic kidney disease. Performed By: #### P TT, CBC, PT #### [facility] [address] Estimated GFR (Non- Am > 60 [facility] Comment on above: Performed By: #### P TT, CBC, PT #### [facility] [address] [place] [address] [place] Glucose [Mass/Vol] 116 mg/dL High 70-100 [facility] Comment on above: Result Comment: [place] Glucose Reference Range is dependent on time and content of last meal. Glucose of more than 200 mg/dL in a nonstressed, ambulatory subject supports the diagnosis of Diabetes Mellitus. ADA recommended reference range Performed By: #### P TT, CBC, PT #### [facility] [address] Potassium [Moles/Vol] 3.9 mmol/L Normal 3.5-5.1 [facility] Comment on above: Performed By: #### P TT, CBC, PT #### [facility] [address] Sodium [Moles/Vol] 138 mmol/L Normal 136-146 [facility] Comment on above: Performed By: #### P TT, CBC, PT #### [facility] [address] Urea nitrogen [Mass/Vol] 11 mg/dL Normal 9-23 [facility] Comment on above: Performed By: #### P TT, CBC, PT #### [facility] [address] Complete Blood Count Auto Di ffon 11-24-2021 Basophils (Bld) [#/Vol] 0.1 10*3/uL Normal 0.0-0.2 [facility] Comment on above: Result Comment: PERF ORMED BY: [place] [address] PATHOLOGIST [employer] CONTR[employer]S MANAGER KAREN CORONADO M.D. Performed By: #### P TT, CBC, PT #### [facility] [address] [place] [address] [place] Basophils/100 WBC (Bld) 1.1 % Normal . [facility] Comment on above: Performed By: #### P TT, CBC, PT #### [facility] [address] [place] [address] [place] Eosinophils (Bld) [#/Vol] 0.2 10*3/uL Normal 0.0-0.45 [facility] Comment on above: Performed By: #### P TT, CBC, PT #### [facility] [address] [place] [address] [place] Eosinophils/100 WBC (Bld) 2.0 % Normal . [facility] Comment on above: Performed By: #### P TT, CBC, PT #### [facility] [address] Erythrocyte distribution width (RBC) [Ratio] 14.8 % Normal 12.0-14.8 [facility] Comment on above: Performed By: #### P TT, CBC, PT #### [facility] [address] Hematocrit (Bld) [Volume fraction] 34.5 % Low 38.8-50.0 [facility] Comment on above: Performed By: #### P TT, CBC, PT #### [address] Hemoglobin (Bld) [Mass/Vol] 11.6 g/dL Low 13.0-17.0 [facility] Comment on above: Performed By: #### P TT, CBC, PT #### [address] Lymphocytes (Bld) [#/Vol] 2.2 10*3/uL Normal 1.00-4.8 [facility] Comment on above: Performed By: #### P TT, CBC, PT #### [address] Lymphocytes/100 WBC (Bld) 25.0 % Normal . [facility] Comment on above: Performed By: #### P TT, CBC, PT #### [address] MCH (RBC) [Entitic mass] 27.4 pg Low 27.5-35.2 [facility] Comment on above: Performed By: #### P TT, CBC, PT #### [address] MCV (RBC) [Entitic vol] 81.6 fL Low 83.5-101 [facility] Comment on above: Performed By: #### P TT, CBC, PT #### [address] Mean Corpuscular HGB Conc 33.6 g/dL Normal 32.5-35.6 [facility] Comment on above: Performed By: #### P TT, CBC, PT #### [facility] [address] [place] [address] [place] Monocytes (Bld) [#/Vol] 0.4 10*3/uL Normal 0.0-0.8 [facility] Comment on above: Performed By: #### P TT, CBC, PT #### [facility] [address] [place] [address] [place] Monocytes/100 WBC (Bld) 4.6 % Normal . [facility] Comment on above: Performed By: #### P TT, CBC, PT #### [facility] [address] Neutrophils (Bld) [#/Vol] 6.0 10*3/uL Normal 1.8-7.7 [facility] Comment on above: Performed By: #### P TT, CBC, PT #### [address] Neutrophils/100 WBC (Bld) 67.3 % Normal . [facility] Comment on above: Performed By: #### P TT, CBC, PT #### [place] [address] [place] Nucleated RBC/100 WBC (Bld) [Ratio] 0.0 % Normal 0-0.5 [facility] Comment on above: Performed By: #### P TT, CBC, PT #### [facility] [address] Platelet mean volume (Bld) [Entitic vol] 6.8 fL Normal 6.6-10.1 [facility] Comment on above: Performed By: #### P TT, CBC, PT #### [facility] [address] [place] [address] [place] Platelets (Bld) [#/Vol] 253 10*3/uL Normal 150-450 [facility] Comment on above: Performed By: #### P TT, CBC, PT #### [place] [address] [place] RBC (Bld) [#/Vol] 4.22 10*6/uL Normal 3.90-5.60 [facility] Comment on above: Performed By: #### P TT, CBC, PT #### [facility] [address] WBC (Bld) [#/Vol] 8.9 10*3/uL Normal 4.5-11.0 [facility] Comment on above: Performed By: #### P TT, CBC, PT #### [facility] [address] ECG 12 lead ECGon 11-24-2021 ECG 12 lead ECG [facility] Main [place] [address] [place] [address] Electrocardiograph Report Signed Patient: Barry Galdamez MR#: [id number] 41 : 1955 Acct:[id number] Age/Sex: 66 / M ADM Date: 11/23/21 Loc: Room: [address] [place] [address] Type: DIS IN Attending Dr: Merline Elias [...] in Anterior leads Confirmed by ROSEANNE FARFAN FACC, SUNDAR ([id number]) on 11/24/2021 9:45:33 AM Referred By: Electronically Signed By:SUNDAR CRONIN MD FACC Transcribed By: MUS Signed By Sundar Cronin MD, FACC 11/24/21 0945 Normal [facility] Lipid Panelon 11-24-2021 Cholesterol [Mass/Vol] 129 mg/dL Low 140-200 [facility] Comment on above: Result Comment: Chol less than 200 mg/dl low risk Chol 201-239 mg/dl borderline risk Chol 240 mg/dl and greater high risk Performed By: #### P TT, CBC, PT #### [facility] [address] Cholesterol in HDL [Mass/Vol] 24 mg/dL Low 29-71 [facility] Comment on above: Result Comment: HDL CHOL ATP-III CLASSIFICATION Cardiovascular Risk HDL > or equal to 60 mg/dL LOW HDL < 40 mg/dL HIGH Performed By: #### P TT, CBC, PT #### [facility] [address] Cholesterol.total/Ayse sterol in HDL [Mass ratio] 5.4 {ratio} Normal <5.0 [facility] Comment on above: Result Comment: PERF ORMED BY: [place] [address] PATHOLOGIST [employer] MANAGER KAREN CORONADO M.D. Performed By: #### P TT, CBC, PT #### [facility] [address] LDL Cholesterol,Calculated 86 mg/dL Normal 0-100 [facility] Comment on above: Result Comment: LDL ATP III CLASSIFICATION LDL less than 100 mg/dL Optimal LDL 100-129 mg/dL Near or above optimal LDL 130-159 mg/dL Borderline high LDL 160-189 mg/dL High LDL greater than 189 mg/dL Very high Performed By: #### P TT, CBC, PT #### [facility] [address] Triglyceride w/Reflex 96 mg/dL Normal 35-149 [facility] Comment on above: Result Comment: TRIG ATP III CLASSIFICATION TRIG less than 150 mg/dL Normal TRIG 150-199 mg/dL Borderline high TRIG 200-500 mg/dL High TRIG greater than 500 mg/dL Very high Standard traceable to the Center for Disease Conrtrol and Prevention (CDC) test method. Performed By: #### P TT, CBC, PT #### [facility] [address] VLDL CHOLESTEROL 19 mg/dL Normal [facility] Comment on above: Performed By: #### P TT, CBC, PT #### [facility] [address] [place] [address] [place] Magnesiumon 11-24-2021 Magnesium [Mass/Vol] 1.8 mg/dL Normal 1.6-2.6 [facility] Comment on above: Performed By: #### P TT, CBC, PT #### [facility] [address] Partial Thromboplastin Timeo n 11-24-2021 aPTT Coag (Bld) [Time] 71.4 s High 25.1-36.5 [facility] Comment on above: Result Comment: PERF ORMED BY: [place] [address] PATHOLOGIST [employer]OMATION [employer] CONTROLS MANAGER KAREN CORONADO M.D. Performed By: #### P TT #### [address] aPTT Coag (Bld) [Time] 37.7 s High 25.1-36.5 [facility] Comment on above: Result Comment: PERF ORMED BY: [place] [address] PATHOLOGIST [employer]OMATION [employer] CONTROLS MANAGER KAREN CORONADO M.D. Performed By: #### P TT #### [address] aPTT Coag (Bld) [Time] 55.3 s High 25.1-36.5 [facility] Comment on above: Result Comment: PERF ORMED BY: [place] [address] PATHOLOGIST [employer]OMATION AND CONTROLS MANAGER KAREN CORONADO M.D. Performed By: #### P T, PTT, BMP, MG, LIPID #### [facility] [address] [place] [address] aPTT Coag (Bld) [Time] 33.3 s Normal 25.1-36.5 [facility] Comment on above: Result Comment: PERF ORMED BY: [place] [address] PATHOLOGIST [employer]ATION [employer] CONTROLS MANAGER KAREN CORONADO M.D. Performed By: #### P TT, CBC, PT #### [place] [address] [place] Prothrombin Time INRon 11-24 INR Coag (PPP) [Relative time] 1.2 {INR} Normal [facility] Comment on above: Result Comment: INR [...] P T, PTT, BMP, MG, LIPID #### [facility] [address] [place] [address] PT Coag (PPP) [Time] 13.4 s High 9.0-12.9 [facility] Comment on above: Performed By: #### P T, PTT, BMP, MG, LIPID #### [facility] [address] [place] [address] INR Coag (PPP) [Relative time] 1.2 {INR} Normal [facility] Comment on above: Result Comment: INR [...] By: #### P TT, CBC, PT #### [address] PT Coag (PPP) [Time] 13.0 s High 9.0-12.9 [facility] Comment on above: Performed By: #### P TT, CBC, PT #### [address] [place] [address] [place] Troponin I High Sensitivityo n 11-24-2021 Troponin I High Sensitivity 308 pg/mL Off scale high 0-20 [facility] Comment on above: Result Comment: Resu lts called at 0026 on 11/24/21 PERFORMED BY: [place] [address] PATHOLOGIST [employer] MANAGER KAREN CORONADO M.D. Performed By: #### P TT, CBC, PT #### [facility] [address] [place] [id number] [place] BNPon 11-23-2021 Natriuretic peptide B (Bld) [Mass/Vol] 153.0 pg/mL Normal <=900.0 [facility] Comment on above: Performed By: #### H STROPN #### [facility] [address] [place] [address] Dr. Troy Hickey CBC AUTO DIFFon 11-23-2021 BASO # 0.1 103/ul Normal 0.0-0.1 [facility] Comment on above: Performed By: #### H STROPN #### [facility] [address] [place] [address] [address] Troy Hickey Basophils/100 WBC (Bld) 0.7 % Normal 0.2-2.0 [facility] Comment on above: Performed By: #### H STROPN #### [facility] [address] [place] [address] [address] Troy Hickey EO # 0.4 103/ul Normal 0.0-0.7 [facility] Comment on above: Performed By: #### H STROPN #### [facility] [address] [place] [address] [address] Troy Hickey Eosinophils/100 WBC (Bld) 4.2 % Normal 0.9-7.0 [facility] Comment on above: Performed By: #### H STROPN #### [facility] [address] [place] [address] Dr. Troy Hickey Erythrocyte distribution width (RBC) [Ratio] 14.2 % Normal 11.0-15.0 [facility] Comment on above: Performed By: #### H STROPN #### [facility] [address] [place] [address] [address] Troy Hickey Hematocrit (Bld) [Volume fraction] 40.2 % Critically low 42.0-54.0 [facility] Comment on above: Performed By: #### H STROPN #### [facility] [address] [place] [address] [address] Troy Hickey Hemoglobin (Bld) [Mass/Vol] 12.4 g/dL Critically low 14.0-18.0 [facility] Comment on above: Performed By: #### H STROPN #### [facility] [address] [place] [address] [address] Troy Hickey IG # 0.03 10e3/ul Normal 0.00-0.03 [facility] Comment on above: Performed By: #### H STROPN #### [facility] [address] [place] [address] [address] Troy Hickey IG % 0.3 % Normal 0.0-0.5 [facility] Comment on above: Performed By: #### H STROPN #### [facility] [address] [place] [address] [address] Troy Hickey LYMPH # 2.4 103/ul Normal 1.2-3.8 [facility] Comment on above: Performed By: #### H STROPN #### [facility] [address] [place] [address] [address] Troy Hickey Lymphocytes/100 WBC (Bld) 27.9 % Normal 20.5-60.0 [facility] Comment on above: Performed By: #### H STROPN #### [facility] [address] [place] [address] [address] Troy Hickey MANUAL DIFF REQ NO Normal [facility] Comment on above: Performed By: #### H STROPN #### [facility] [address] [place] [address] [address] Troy Hickey MCH (RBC) [Entitic mass] 27.2 pg Normal 25.9-34.0 [facility] Comment on above: Performed By: #### H STROPN #### [facility] [address] [place] [address] [address] Troy Hickey MCHC (RBC) [Mass/Vol] 30.8 g/dL Normal 29.9-35.2 [facility] Comment on above: Performed By: #### H STROPN #### [facility] [address] [place] [address] [address] Troy Hickey MCV (RBC) [Entitic vol] 88.2 fL Normal 80.0-94.0 [facility] Comment on above: Performed By: #### H STROPN #### [facility] [address] [place] [address] [address] Troy Hickey MONO # 0.6 103/ul Normal 0.3-0.8 [facility] Comment on above: Performed By: #### H STROPN #### [facility] [address] [place] [address] [address] Troy Hickey Monocytes/100 WBC (Bld) 7.2 % Normal 1.7-12.0 [facility] Comment on above: Performed By: #### H STROPN #### [facility] [address] [place] [address] [address] Troy Hickey NEUT # 5.2 103/ul Normal 1.4-6.5 [facility] Comment on above: Performed By: #### H STROPN #### [facility] [address] [place] [address] [address] Troy Hickey Neutrophils/100 WBC (Bld) 59.7 % Normal 43.0-75.0 [facility] Comment on above: Performed By: #### H STROPN #### [facility] [address] [place] [address] [address] Troy Hickey Platelet mean volume (Bld) [Entitic vol] 8.5 fL Critically low 9.5-13.5 [facility] Comment on above: Performed By: #### H STROPN #### [facility] [address] [place] [address] [address] Troy Hickey PLT 252 103/ul Normal 150-450 [facility] Comment on above: Performed By: #### H STROPN #### [facility] [address] [place], [place] [address] Dr. Troy Hickey RBC 4.56 106/ul Critically low 4.70-6.10 [facility] Comment on above: Performed By: #### H STROPN #### [facility] [address] [place], [place] [address] Dr. Troy Hickey WBC 8.6 103/ul Normal 4.0-11.0 [facility] Comment on above: Performed By: #### H STROPN #### [facility] [address] [place], [place] [address] Dr. Troy Hickey CTA CHEST WO W CONon 022 CTA CHEST WO W CON EXAMINATION:CTA CHES T WO W CON INDICATION:Pulmonary embolism, hypertension, chest [...] in the chest. Electronically authenticated by: ABRAN Wagner: 2021-11-23 19:06 Normal [facility] Coagulation Profileon 2021 aPTT Coag (Bld) [Time] 46.5 s High 25.1-36.5 [facility] Comment on above: Result Comment: PERF ORMED BY: [place] [address] PATHOLOGIST [employer] MANAGER KAREN CORONADO M.D. Performed By: #### C BC, PP #### [address] INR Coag (PPP) [Relative time] 1.2 {INR} Normal [facility] Comment on above: Result Comment: INR [...] Performed By: #### C BC, PP #### [address] PT Coag (PPP) [Time] 13.5 s High 9.0-12.9 [facility] Comment on above: Performed By: #### C BC, PP #### [address] Complete Blood Count Auto Di ffon 11-23-2021 Basophils (Bld) [#/Vol] 0.0 10*3/uL Normal 0.0-0.2 [facility] Comment on above: Result Comment: PERF ORMED BY: [place] [address] PATHOLOGIST [employer]ATION [employer] CONTROLS MANAGER KAREN CORONADO M.D. Performed By: #### C BC, PP #### [address] Basophils/100 WBC (Bld) 0.3 % Normal . [facility] Comment on above: Performed By: #### C BC, PP #### [facility] [address] Eosinophils (Bld) [#/Vol] 0.2 10*3/uL Normal 0.0-0.45 [facility] Comment on above: Performed By: #### C BC, PP #### [facility] [address] [place] [address] [place] Eosinophils/100 WBC (Bld) 2.5 % Normal . [facility] Comment on above: Performed By: #### C BC, PP #### [facility] [address] Erythrocyte distribution width (RBC) [Ratio] 14.4 % Normal 12.0-14.8 [facility] Comment on above: Performed By: #### C BC, PP #### [address] Hematocrit (Bld) [Volume fraction] 34.4 % Low 38.8-50.0 [facility] Comment on above: Performed By: #### C BC, PP #### [address] Hemoglobin (Bld) [Mass/Vol] 11.6 g/dL Low 13.0-17.0 [facility] Comment on above: Performed By: #### C BC, PP #### [address] Lymphocytes (Bld) [#/Vol] 1.7 10*3/uL Normal 1.00-4.8 [facility] Comment on above: Performed By: #### C BC, PP #### [place] [address] [place] Lymphocytes/100 WBC (Bld) 18.9 % Normal . [facility] Comment on above: Performed By: #### C BC, PP #### [address] MCH (RBC) [Entitic mass] 27.5 pg Normal 27.5-35.2 [facility] Comment on above: Performed By: #### C BC, PP #### [facility] [address] MCV (RBC) [Entitic vol] 81.8 fL Low 83.5-101 [facility] Comment on above: Performed By: #### C BC, PP #### [facility] [address] Mean Corpuscular HGB Conc 33.7 g/dL Normal 32.5-35.6 [facility] Comment on above: Performed By: #### C BC, PP #### [facility] [address] Monocytes (Bld) [#/Vol] 0.4 10*3/uL Normal 0.0-0.8 [facility] Comment on above: Performed By: #### C BC, PP #### [facility] [address] Monocytes/100 WBC (Bld) 4.1 % Normal . [facility] Comment on above: Performed By: #### C BC, PP #### [facility] [address] [place] [address] [place] Neutrophils (Bld) [#/Vol] 6.8 10*3/uL Normal 1.8-7.7 [facility] Comment on above: Performed By: #### C BC, PP #### [facility] [address] Neutrophils/100 WBC (Bld) 74.2 % Normal . [facility] Comment on above: Performed By: #### C BC, PP #### [facility] [address] [place] [address] [place] Nucleated RBC/100 WBC (Bld) [Ratio] 0.0 % Normal 0-0.5 [facility] Comment on above: Performed By: #### C BC, PP #### [facility] [address] Platelet mean volume (Bld) [Entitic vol] 6.7 fL Normal 6.6-10.1 [facility] Comment on above: Performed By: #### C BC, PP #### [facility] [address] Platelets (Bld) [#/Vol] 250 10*3/uL Normal 150-450 [facility] Comment on above: Performed By: #### C BC, PP #### [address] RBC (Bld) [#/Vol] 4.21 10*6/uL Normal 3.90-5.60 [facility] Comment on above: Performed By: #### C BC, PP #### [address] WBC (Bld) [#/Vol] 9.1 10*3/uL Normal 4.5-11.0 [facility] Comment on above: Performed By: #### C BC, PP #### [address] Comprehensive Metabolic Pane yvette 11-23-2021 Albumin [Mass/Vol] 3.1 g/dL Low 3.2-5.5 [facility] Comment on above: Performed By: #### P TT, CBC, PT #### [address] Albumin/Globulin [Mass ratio] 0.9 {ratio} Normal [facility] Comment on above: Performed By: #### P TT, CBC, PT #### [address] ALP [Catalytic activity/Vol] 77 U/L Normal 32-92 [facility] Comment on above: Performed By: #### P TT, CBC, PT #### [facility] [address] [place] [address] ALT [Catalytic activity/Vol] 16 U/L Normal 10-60 [facility] Comment on above: Performed By: #### P TT, CBC, PT #### [address] AST [Catalytic activity/Vol] 21 U/L Normal 10-42 [facility] Comment on above: Performed By: #### P TT, CBC, PT #### [facility] [address] [place] [address] [place] Bilirubin [Mass/Vol] 0.2 mg/dL Low 0.3-1.2 [facility] Comment on above: Performed By: #### P TT, CBC, PT #### [facility] [address] Calcium [Mass/Vol] 8.3 mg/dL Normal 8.2-10.2 [facility] Comment on above: Performed By: #### P TT, CBC, PT #### [facility] [address] Chloride [Moles/Vol] 104 mmol/L Normal 95-114 [facility] Comment on above: Performed By: #### P TT, CBC, PT #### [facility] [address] CO2 [Moles/Vol] 26.2 mmol/L Normal 22.0-30.0 [facility] Comment on above: Performed By: #### P TT, CBC, PT #### [facility] [address] [place] [address] [place] Creatinine [Mass/Vol] 0.84 mg/dL Normal 0.64-1.27 [facility] Comment on above: Performed By: #### P TT, CBC, PT #### [facility] [address] Estimated GFR ( Sunitha > 60 Normal [facility] Comment on above: Result Comment: GFR estimated reference range: According to KDOQI guidelines, <60 ml/min/1.73m2 is sufficient to diagnose a patient with chronic kidney disease. Performed By: #### P TT, CBC, PT #### [facility] [address] [place] [address] [place] Estimated GFR (Non- Am > 60 Normal [facility] Comment on above: Performed By: #### P TT, CBC, PT #### [facility] [address] [place] [address] [place] Globulin (S) [Mass/Vol] 3.5 g/dL Normal [facility] Comment on above: Performed By: #### P TT, CBC, PT #### [facility] [address] [place] [address] [place] Glucose [Mass/Vol] 137 mg/dL High 70-100 [facility] Comment on above: Result Comment: [place] Glucose Reference Range is dependent on time and content of last meal. Glucose of more than 200 mg/dL in a nonstressed, ambulatory subject supports the diagnosis of Diabetes Mellitus. ADA recommended reference range Performed By: #### P TT, CBC, PT #### [facility] [address] Potassium [Moles/Vol] 4.3 mmol/L Normal 3.5-5.1 [facility] Comment on above: Performed By: #### P TT, CBC, PT #### [facility] [address] [place] [address] [facility] Protein [Mass/Vol] 6.6 g/dL Normal 6.1-7.9 [facility] Comment on above: Performed By: #### P TT, CBC, PT #### [facility] [address] [place] [address] [place] Sodium [Moles/Vol] 139 mmol/L Normal 136-146 [facility] Comment on above: Performed By: #### P TT, CBC, PT #### [facility] [address] [place] [address] [place] Urea nitrogen [Mass/Vol] 15 mg/dL Normal 9-23 [facility] Comment on above: Performed By: #### P TT, CBC, PT #### [facility] [address] [place] [id number] [place] Covid-19 PCR (CVDTBH)on SARS-CoV-2 (COVID-19) RNA ERNIE+probe Ql (Unsp spec) Not detected Normal NOT DETECTED [facility] Comment on above: Result Comment: This test is not yet approved or cleared by the [place] FDA. When there are no FDA-approved or cleared tests available, and other criteria are met, FDA can make tests available under an emergency access mechanism called an Emergency Use Authorization (EUA). The EUA for this test is supported by the Mixing Picker Tender of Health and Human Service's (HHS's) declaration [...] SARS-CoV-2. Performed By: #### B CID2 #### [facility] [address] [place] [address] Dr. Troy Hickey D-DIMERon 11-23-2021 D-DIMER 0.52 mg/L FEU Critically high 0.19-0.50 [facility] Comment on above: Performed By: #### D DIM #### [facility] [address] [place] [address] Dr. Troy Hickey D-DIMER COMMENTS SEE BELOW Normal [facility] Comment on above: Result Comment: Incr eases [...] hospitalization. Performed By: #### D DIM #### [facility] [address] [place] [address] Dr. Troy Hickey ECG 12 lead ECGon 11-23-2021 ECG 12 lead ECG [facility] [place] [address] Electrocardiograph Report Signed Patient: Barry Galdamez MR#: [id number] 41 : 1955 Acct:[id number] Age/Sex: 66 / M ADM Date: 11/23/21 Loc: Room: 7Q3198-6 Type: DIS IN Attending Dr: Merline Elias [...] previous ECGs available Confirmed by ROSEANNE FARFAN [facility], SUNDAR ([id number]) on 11/24/2021 9:45:12 AM Referred By: Electronically Signed By:SUNDAR CRNOIN MD [facility] Transcribed By: MUS Signed By Sundar Cronin MD, [facility] 11/24/21 0945 Normal [facility] Magnesiumon 11-23-2021 Magnesium [Mass/Vol] 2.0 mg/dL Normal 1.6-2.6 [facility] Comment on above: Result Comment: PERF ORMED BY: [place] [address] PATHOLOGIST [employer]ATION AND CONTROLS MANAGER KAREN CORONADO M.D. Performed By: #### P TT, CBC, PT #### [address] PROF 14(COMP METB)on 022 Albumin [Mass/Vol] 3.5 g/dL Normal 3.4-5.0 [facility] Comment on above: Performed By: #### H STROPN #### [facility] [address] [place] [address] [address] Troy Hickey Albumin/Globulin [Mass ratio] 0.8 {ratio} Normal [facility] Comment on above: Performed By: #### H STROPN #### [facility] [address] [place] [address] [address] Troy Hickey ALP [Catalytic activity/Vol] 104 U/L Normal 46-116 [facility] Comment on above: Performed By: #### H STROPN #### [facility] [address] [place] [address] [address] Troy Hickey ALT [Catalytic activity/Vol] 22 U/L Normal 16-63 [facility] Comment on above: Performed By: #### H STROPN #### [facility] [address] [place] [address] [address] Troy Hickey Anion gap [Moles/Vol] 6.2 mmol/L Normal [facility] Comment on above: Performed By: #### H STROPN #### [facility] [address] [place] [address] [address] Troy Hickey AST [Catalytic activity/Vol] 16 U/L Normal 15-37 [facility] Comment on above: Performed By: #### H STROPN #### [facility] [address] [place] [address] [address] Troy Hickey Bilirubin [Mass/Vol] 0.4 mg/dL Normal 0.2-1.0 [facility] Comment on above: Performed By: #### H STROPN #### [facility] [address] [place] [address] [address] Troy Hickey Calcium [Mass/Vol] 8.2 mg/dL Critically low 8.5-10.1 [facility] Comment on above: Performed By: #### H STROPN #### [facility] [address] [place] [address] Dr. Troy Hickey Chloride [Moles/Vol] 104 mmol/L Normal 98-107 [facility] Comment on above: Performed By: #### H STROPN #### [facility] [address] [place] [address] [address] Troy Hickey CO2 [Moles/Vol] 31.8 mmol/L Normal 21.0-32.0 [facility] Comment on above: Performed By: #### H STROPN #### [facility] [address] [place] [address] [address] Troy Hickey Creatinine [Mass/Vol] 0.88 mg/dL Normal 0.70-1.30 [facility] Comment on above: Performed By: #### H STROPN #### [facility] [address] [place] [address] [address] Troy Hickey EGFR-AF CAMEROONIAN >60 Normal >=60 [facility] Comment on above: Performed By: #### H STROPN #### [facility] [address] [place] [address] [address] Troy Hickey EGFR-NON AF CAMEROONIAN >60 Normal >=60 [facility] Comment on above: Performed By: #### H STROPN #### [facility] [address] [place] [address] [address] Troy Hickey Globulin (S) [Mass/Vol] 4.2 g/dL Normal [facility] Comment on above: Performed By: #### H STROPN #### [facility] [address] [address] [address] Troy Hickey Glucose [Mass/Vol] 109 mg/dL Critically high 74-106 [facility] Comment on above: Performed By: #### H STROPN #### [facility] [address] [address] [address] Troy Hickey Potassium [Moles/Vol] 4.0 mmol/L Normal 3.5-5.1 [facility] Comment on above: Performed By: #### H STROPN #### [facility] [address] [place] [address] Dr. Troy Hickey Protein [Mass/Vol] 7.7 g/dL Normal 6.4-8.2 [facility] Comment on above: Performed By: #### H STROPN #### [facility] [address] [address] [address] Troy Hickey Sodium [Moles/Vol] 138 mmol/L Normal 136-145 [facility] Comment on above: Performed By: #### H STROPN #### [facility] [address] [address] [address] Troy Hickey Urea nitrogen [Mass/Vol] 17.0 mg/dL Normal 7.0-18.0 [facility] Comment on above: Performed By: #### H STROPN #### [facility] [address] [place] [address] Dr. Troy Hickey Urea nitrogen/Creatinine [Mass ratio] 19.3 mg/mg Normal [facility] Comment on above: Performed By: #### H STROPN #### [facility] [address] [place] [address] Dr. Troy Hickey PROTIMEon 11-23-2021 INR Coag (PPP) [Relative time] 1.01 {INR} Normal [facility] Comment on above: Performed By: #### B CID2 #### [facility] [address] [place] [address] Dr. Troy Hickey INR GUIDELINES SEE BELOW Normal [facility] Comment on above: Result Comment: WAQAS RED INR: 2.0 - 3.0 CONDITIONS NOT LISTED BELOW 2.5 - 3.5 FOR PROSTHETIC HEART VALVE REPLACEMENT 2.5 - 3.5 RECURRENT THROMBOSIS Performed By: #### B CID2 #### [facility] [address] [place] [address] Dr. Troy Hickey PT Coag (PPP) [Time] 10.9 s Normal 9.0-11.6 [facility] Comment on above: Performed By: #### B CID2 #### [facility] [address] [place] [address] Dr. Troy Hickey PTTon 11-23-2021 aPTT Coag (Bld) [Time] 28.3 s Normal 22.3-36.2 [facility] Comment on above: Performed By: #### B CID2 #### [facility] [address] [place] [address] Dr. Troy Hickey TROPONIN, HIGH SENSITIVITYon 11-23-2021 HSTROP 197.7 pg/mL Critically high 4.0-76.1 [facility] Comment on above: Result Comment: CUT- OFF POINTS HAVE BEEN ESTABLISHED BASED ON THE FOURTH UNIVERSAL DEFINITIONS OF MYOCARDIAL INFARCTION. THE UPPER REFERENCE LIMIT (URL) OF TROPONIN, DEFINED THE 99TH PERCENTILE OF cTnI DISTRIBUTION IN A REFERENCE POPULATION, HAS BEEN CONFIRMED THE DECISION THRESHOLD FOR AK DIAGNOSIS. Test Repeated. Critical Value Verified Performed By: #### H STROPN #### [facility] [address] [place] [address] Dr. Troy Hickey HSTROP 138.8 pg/mL Critically high 4.0-76.1 [facility] Comment on above: Result Comment: CUT- OFF POINTS HAVE BEEN ESTABLISHED BASED ON THE FOURTH UNIVERSAL DEFINITIONS OF MYOCARDIAL INFARCTION. THE UPPER REFERENCE LIMIT (URL) OF TROPONIN, DEFINED THE 99TH PERCENTILE OF cTnI DISTRIBUTION IN A REFERENCE POPULATION, HAS BEEN CONFIRMED THE DECISION THRESHOLD FOR AK DIAGNOSIS. Performed By: #### H STROPN #### [facility] [address] [address] [address] Troy Hickey Troponin I High Sensitivityo n 11-23-2021 Troponin I High Sensitivity 235 pg/mL Off scale high 0-20 [facility] Comment on above: Result Comment: Resu lts called at 2255 on 11/23/21 PERFORMED BY: [place] [address] PATHOLOGIST AUTOMATION AND CONTROLS MANAGER KAREN CORONADO M.D. Performed By: #### P TT, CBC, PT #### [facility] [address] [place] [address] XR FINGER MIN 2 VIEWSon 09-17 XR FINGER MIN 2 VIEWS EXAM: XR FINGER AK N 2 VIEWS HISTORY: Laceration of finger [...] LINDA MICHEL Date: 2021-10-05 15:49 Normal [facility] COVID Quick Testingon 2021 Result Positive [facility] DEPT. Other Quick Fluon 08-08-2021 FLUAV Ab CF (S) [Titer] Negative N Formula XO Other FLUBV Ab CF (S) [Titer] Positive N Formula XO Other Vital Signs Date Time Vital Sign Value Performing Clinician Facility 03-26-2023 11:21-0400 Body height 182.88 cm [facility] Work Phone: [facility] DO Work Phone: 03-26-2023 11:21-0400 Body mass index (BMI) [Ratio] 34.99 kg/m2 [facility] Work Phone: [facility] [facility] DO Work Phone: 03-26-2023 11:21-0400 Body surface area Derived from formula 2.37 m2 [facility] Work Phone: [facility] 250 DO Work Phone: 03-26-2023 11:21-0400 Body weight 117.03 kg [facility] Work Phone: [facility] DO Work Phone: 03-26-2023 11:21-0400 Diastolic blood pressure 70 mm[Hg] Joe P [facility] Work Phone: [facility] 250 DO Work Phone: 03-26-2023 11:21-0400 Heart rate 64 /min [facility] Work Phone: [facility] DO Work Phone: 03-26-2023 11:21-0400 Systolic blood pressure 148 mm[Hg] Joe P [facility]o Work Phone: [facility] DO Work Phone: 09-18-2022 12:00-0500 Heart rate 66 /min Joe P [facility]o Work Phone: [facility] DO Work Phone: 09-18-2022 11:55-0500 Body height 182.88 cm [facility] Work Phone: [facility] 250 DO Work Phone: 09-18-2022 11:55-0500 Body mass index (BMI) [Ratio] 35.4 kg/m2 [facility] Work Phone: [facility] DO Work Phone: 09-18-2022 11:55-0500 Body surface area Derived from formula 2.39 m2 [facility] Work Phone: [facility] DO Work Phone: 09-18-2022 11:55-0500 Body weight 118.39 kg Joe [facility] Work Phone: [facility] 250 DO Work Phone: 09-18-2022 11:55-0500 Diastolic blood pressure 72 mm[Hg] Joe [facility] Work Phone: [facility] DO Work Phone: 09-18-2022 11:55-0500 Systolic blood pressure 142 mm[Hg] [facility] Work Phone: [facility] DO Work Phone: 03-19-2022 11:01-0400 Body height 182.88 cm [facility] Work Phone: [facility] DO Work Phone: 03-19-2022 11:01-0400 Body mass index (BMI) [Ratio] 35.13 kg/m2 [facility] Work Phone: [facility] DO Work Phone: 03-19-2022 11:01-0400 Body surface area Derived from formula 2.38 m2 [facility] Work Phone: [facility] DO Work Phone: 03-19-2022 11:01-0400 Body weight 117.48 kg Joe [facility] Work Phone: [facility] DO Work Phone: 03-19-2022 11:01-0400 Diastolic blood pressure 62 mm[Hg] [facility] Work Phone: [facility] DO Work Phone: 03-19-2022 11:01-0400 Heart rate 60 /min [facility] Work Phone: [facility] DO Work Phone: 03-19-2022 11:01-0400 Systolic blood pressure 102 mm[Hg] [facility] Work Phone: [facility] DO Work Phone: 12-09-2021 10:30-0400 Diastolic blood pressure 68 mm[Hg] [facility] Work Phone: [facility] DO Work Phone: 12-09-2021 10:30-0400 Systolic blood pressure 118 mm[Hg] [facility] Work Phone: [facility] DO Work Phone: 12-09-2021 10:25-0400 Body height 182.88 cm Joe [facility] Work Phone: [facility] DO Work Phone: 12-09-2021 10:25-0400 Body mass index (BMI) [Ratio] 36.08 kg/m2 [facility] Work Phone: [facility] DO Work Phone: 12-09-2021 10:25-0400 Body surface area Derived from formula 2.4 m2 [facility] Work Phone: [facility] DO Work Phone: 12-09-2021 10:25-0400 Body weight 120.66 kg Joe P [facility] Work Phone: [facility] DO Work Phone: 12-09-2021 10:25-0400 Diastolic blood pressure 72 mm[Hg] [facility] Work Phone: [facility] DO Work Phone: 12-09-2021 10:25-0400 Heart rate 66 /min [facility] Work Phone: [facility] DO Work Phone: 12-09-2021 10:25-0400 Systolic blood pressure 124 mm[Hg] [facility] Work Phone: [facility] DO Work Phone: 08-08-2021 15:15-0500 Body height 182.88 cm Jocelyn Diaz Other [facility] Other 08-08-2021 15:15-0500 Body mass index (BMI) [Ratio] 34.58 kg/m2 Jocelyn Diaz Other [facility]. Other 08-08-2021 15:15-0500 Body temperature 97.1 [degF] Jocelyn Diaz Other [facility] Other 08-08-2021 15:15-0500 Body weight 115.67 kg Jocelyn Diaz Other [facility] Other 08-08-2021 15:15-0500 Respiratory rate 18 /min Jocelyn Diaz Other [facility] Other 08-08-2021 15:15-0500 SaO2% (BldA) [Mass fraction] 98 % Jocelyn Diaz Other [facility]. Other Encounters Encounter Date Encounter Type Care Provider Facility Start: 11-30-2023 ambulatory Nails Talal Mariferremyi Facility:[facility] Start: 09-29-2023 ambulatory JOE P HOUSE Facilit y:[facility] Start: 09-23-2023 ambulatory Arianaisidro Urena Facilit y:[facility] Start: 09-22-2023 End: 09-23-2023 ambulatory Kaldeedee Lobito Facility:[facility] Start: 09-17-2023 End: 09-18-2023 ambulatory JOE P HOUSE [facility] [place] Start: 08-27-2023 End: 08-28-2023 ambulatory JOE P HOUSE Facility:[facility] Start: 07-31-2023 End: 08-01-2023 ambulatory Ariana Urena Facility:[facility] Start: 07-21-2023 End: 07-26-2023 ambulatory JOE P HOUSE Facility:[facility] Start: 07-14-2023 End: 07-15-2023 ambulatory Gibran Barker MD Facility:[facility] [place] Start: 06-25-2023 End: 06-26-2023 ambulatory MD Neymar Willingham Facility:[facility] Start: 06-05-2023 End: 06-06-2023 ambulatory Ariana Urena Facility:[facility] Start: 05-26-2023 End: 05-27-2023 ambulatory Gibran Barker MD Facility:[facility] [place] Start: 05-19-2023 End: 05-20-2023 ambulatory MD Neymar Willingham Facility:[facility] Start: 04-08-2023 End: 04-09-2023 ambulatory JOE P HOUSE Facility:[facility] Start: 03-26-2023 Office outpatient vi sit 25 minutes Joe P House Work Phone: [facility] 250 DO Work Phone: Start: 03-26-[address] Addy Fuller Facility: Start: 03-09-2023 Rx Renewal Joe Miguel e Work Phone: [facility] DO Work Phone: Start: 01-09-2023 End: 01-10-2023 ambulatory RAJESH JOEL Facility:[facility] Start: 12-10-2022 End: 12-11-2022 ambulatory MD Ilya Bullock Facility:[facility] Start: 10-29-2022 ambulatory Emanuel Andrews Facility:1 9836 Start: 09-18-2022 Office consultation new/estab patient 60 min Joe P House Work Phone: [facility] 250 DO Work Phone: Start: 09-18-2022 Office outpatient vi sit 25 minutes Joe P House Work Phone: [facility] DO Work Phone: Start: 09-18-[address] Addy Fuller Facility: Start: 05-22-2022 End: 05-23-[address] DOCTOR OCAMPO Facility:[facility] Start: 04-25-2022 End: 04-25-[address] JOE MADDOX Facility:[facility] Start: 04-23-2022 End: 04-24-[address] JOE MADDOX Facility:[facility] Start: 04-02-2022 End: 04-03-[address] JEO MADDOX Facility:[facility] Start: 03-19-2022 Office outpatient vi sit 25 minutes Joe P House Work Phone: [facility] 250 DO Work Phone: Start: 02-10-2022 End: 02-11-[address] JOE MADDOX Facility:[facility] Start: 12-17-2021 End: 02-19-2022 ambulatory EMANUEL TURNER Facility:[facility] Start: 12-09-2021 Transitional care paradise laz[facility] 14 day discharge Joe P House Work Phone: [facility] 250 DO Work Phone: Start: 11-23-2021 End: 11-26-2021 Evaluation and management of inpatient Tamara Swanson Facility:[facility] Start: 11-23-2021 End: 11-23-2021 ambulatory [facility] Start: 10-05-2021 End: 10-05-2021 ambulatory [facility] Facility:[facility] Start: 08-08-2021 End: 08-08-2021 ambulatory Jocelyn Diaz Other [facility] Other Start: 08-08-2021 Office outpatient ne w 20 minutes Jocelyn Diaz [facility] [place] Patient encounter status Joe Lam tolingo Work Phone: [address] [address] DO Work Phone: End: 03-26-2023 Patient encounter status Joe Lam tolingo Work Phone: [address] [address] DO Work Phone: Procedures Date Procedure Procedure Detail Performing Clinician Start: 02-10-[address] DOCTOR OCAMPO Comment on above: Performed By: #### B CID2 #### [facility] [address] [place] [address] Dr. Troy Hickey Appendectomy Joe Lam tolingo Work Phone: Cardiac catheterization Kika olesya P tolingo Work Phone: Colonoscopy Joe P tolingo Work Phone: Decompression of med lenore nerve Joe P tolingo Work Phone: History of percutane ous transluminal coronary angioplasty History of PTCA Joe P tolingo Work Phone: Insertion of arterial stent Joe P tolingo Work Phone: Prosthetic arthropla sty of the hip Joe P tolingo Work Phone: Repair of shoulder Joe P tolingo Work Phone: Total replacement of hip Melissa rlmiguel P tolingo Work Phone: Plan of Treatment Date Care Activity Detail Author Start: 10-22-2023 FUV, Provider: Addy Fuller, Status: Pen, Time: 10:50 AM FUV, Provider: Addy Fuller, Status: Pen, Time: 10:50 AM -[facility] DO Work Phone: Start: 05-27-2023 FUV, Provider: Emanuel Smalls, Status: Pen, Time: 1:30 PM FUV, Provider: Emanuel Smalls, Status: Pen, Time: 1:30 PM -[facility] 250 DO Work Phone: Start: 03-26-2023 FUV, Provider: Addy Fuller, Status: Pen, Time: 11:20 AM FUV, Provider: Addy Fuller, Status: Pen, Time: 11:20 AM -[facility] 250 DO Work Phone: Start: 10-29-2022 FUV, Provider: Emanuel Smalls, Status: Pen, Time: 1:00 PM FUV, Provider: Emanuel Smalls, Status: Pen, Time: 1:00 PM -[facility] 250 DO Work Phone: Start: 09-25-2022 FUV, Provider: Addy Fuller, Status: Pen, Time: 11:20 AM FUV, Provider: Addy Fuller, Status: Pen, Time: 11:20 AM -[facility] DO Work Phone: Start: 03-19-2022 FUV, Provider: Addy Fuller, Status: Pen, Time: 10:30 AM FUV, Provider: Addy Fuller, Status: Pen, Time: 10:30 AM -[facility] 250 DO Work Phone: Immunizations Immunization Date Immunization Notes Care Provider Brandon espinoza 10-05-2021 diphtheria, tetanus toxoids and pertussis vaccine Joe P House Work Phone: [facility] 250 DO Work Phone: 05-20-2021 Moderna COVID-19 Vac cine 100 MCG/0.5ML Intramuscular Suspension [facility] Work Phone: [facility] 250 DO Work Phone: 04-03-2021 Pfizer-BioNTech COVI D-19 Vacc 30 MCG/0.3ML Intramuscular Suspension [facility] Work Phone: [facility] 250 DO Work Phone: 03-13-2021 Pfizer-BioNTech COVI D-19 Vacc 30 MCG/0.3ML Intramuscular Suspension [facility] Work Phone: [facility] 250 DO Work Phone: 01-17-2021 Pfizer-BioNT COVID-1 9 Vac-Lawson 30 MCG/0.3ML Intramuscular Suspension [facility] Work Phone: [facility] 250 DO Work Phone: Comment on above: Series: 12-18-2020 Pfizer-BioNT COVID-1 9 Vac-Lawson 30 MCG/0.3ML Intramuscular Suspension [facility] Work Phone: [facility] 250 DO Work Phone: Comment on above: Series: Payers Date Payer Category Payer Medicare [id number] 2021 Self-pay 2021 Unknown [id number] 2.1 [id number] 2017 Unknown [id number] 1959 Medicaid [id number] 2. [id number] 1959 Medicare [id number] 1955 Unknown [id number] 2.16.84 0.1.323788.3.579.2.593 1955 Unknown [id number] 2.16.84 0.1.634513.3.579.2.593 1955 Unknown [id number] 2.16.84 0.1.269015.3.579.2.593 1955 Unknown [id number] 2.16.84 0.1.181020.3.579.2.593 1955 Unknown [id number] 2.16.84 0.1.239143.3.579.2.593 1955 Unknown [id number] 2.16.84 0.1.752109.3.579.2.593 1955 Unknown [id number] 2.16.84 0.1.913019.3.579.2.593 1955 Unknown [id number] 2.16.84 0.1.035108.3.579.2.593 1955 Unknown [id number] 2.16. 840.1.383317.3.579.2.356 1955 Unknown [id number] 2.16. 840.1.649720.3.579.2.356 1955 Unknown [id number] 2.16. 840.1.565575.3.579.2.356 1955 Unknown [id number] 2.16.8 40.1.744472.3.579.2.727 1955 Unknown [id number] 2.16.8 40.1.682518.3.579.2.727 1955 Unknown [id number] 2.16.8 40.1.690693.3.579.2.727 1955 Unknown [id number] 2.16.8 40.1.588135.3.579.2.727 1955 Unknown [id number] 2.16.8 40.1.228357.3.579.2.727 1955 Unknown [id number] 2.16.8 40.1.976747.3.579.2.727 1955 Unknown [id number] 2.16.8 40.1.787856.3.579.2.727 1955 Unknown [id number] 2.16.8 40.1.316186.3.579.2.727 1955 Unknown [id number] 2.16.8 40.1.242642.3.579.2.727 1955 Unknown [id number] 2.16.8 40.1.783671.3.579.2.727 1955 Unknown [id number] 2.16.8 40.1.181753.3.579.2.718 1955 Unknown [id number] 2.16.8 40.1.111710.3.579.2.718 1955 Unknown [id number] 2.16.8 40.1.216023.3.579.2.718 1955 Unknown [id number] 2.16.8 40.1.345936.3.579.2.718 1955 Unknown [id number] 2.16.8 40.1.619174.3.579.2.718 1955 Unknown [id number] 2.16.8 40.1.606734.3.579.2.718 Unknown Unknown [id number] 2.16.8 40.1.883303.3.579.2.531 Social History Date Type Detail Facility Former smoker Former smoker [employer] Other Comment on above: quit as a teen; 1 daily; pop 1 daily; Sex Assigned At Sex Assigned At Bir [facility]. Other Clinical Notes 08-08-2021 to 09-25-2023 Note Date & Type Note Facility 09-25-2023 Note Admission and Discha rge Information Admitting Physician - Erwin VALADEZ DO Admitting Diagnoses: Discharge Diagnoses 1. Esophageal foreign body, 09/23/2023 2. Coronary artery disease, 09/23/2023 3. Hypertension, 09/23/2023 4. Hyperlipidemia, 09/23/2023 5. Anemia, 09/23/2023 6. History of palpitations, 09/23/2023 7. Chronic back pain, 09/23/2023 8. Obesity, 09/23/2023 Procedure History Esophagogastroduodenoscopy (09/23/2023), Epidural injection of lumbar spine using fluoroscopic guidance (06/25/2023), Epidural injection of lumbar spine using fluoroscopic guidance (05/19/2023), Epidural injection of lumbar spine using fluoroscopic guidance (12/10/2022), Arthroscopy of shoulder (04/13/2018), Carpal tunnel release (04/13/2018), Hip arthroplasty (09/29/2017), Left hip arthrogram (12/03/2016), Appendectomy;, Colonoscopy, Stent, Tooth extraction, complete mouth. Hospital Course Barry Galdamez is a 68 year old male transferred to [facility] from [facility]. He presented to outside ER with throat pain, worse with swallowing, after ingesting a chicken bone. Patient had non-contrasted CT of neck which reportedly showed 3.7 cm linear chicken bone in the proximal esophagus. GI was consulted with plans for upper endoscopy. Patient underwent EGD with foreign body removal on 09/23/[address] Costa. EGD revealed chicken bone measuring 3.5 cm in upper esophagus which was successfully removed. He has hiatal hernia, patchy erythema with erosions in the pyloric area consistent with erosive gastropathy. Patchy erythema in duodenum. No biopsies were taken due to recent Plavix use. GI has recommended he be discharged with PPI daily, follow-up for repeat EGD in 3 months to obtain biopsies. He will need to hold Plavix for this. Will check stool H. pylori. -Patient states that all admitting symptoms have significantly improved and/or resolved. Patient is eating and drinking without complaints, denies being SOB, chest pain, pressure, palpitations or difficulty with voiding.Patient is eager to be discharged to home. --Other chronic medical conditions as outlined in note. Refer to d/c plan below: -Case reviewed and discussed with Dr. Robin is in agreement with current d/c plan. Case will be reviewed and discussed with PCP or environmental monitoring technician MD once the hospital drill press set up operator radial is able to reach him/her. I spent a lengthy amount of time with the patient and/or family (teach back method) reviewing discharge instructions, medications, medication use. Patient to follow-up with PCP and specialty providers as scheduled on discharge. Patient being discharged in medically/hemodynamically stable condition with instructions to return to the hospital if symptoms worsen or recur. This report was transcribed using voice recognition software. Every effort was made to ensure accuracy, however, inadvertently computerized turbine technician mistakes may be present. Procedures and Treatment Provided EGD 09/23/23 Procedure The procedure was performed in the hospital. See anesthesia record for sedation given during procedure. The patient was positioned starting in the left lateral decubitus position. Endoscope type used was, introduced orally, advanced to duodenum. No difficulty was encountered during the procedure. Views were excellent. The patient tolerated the procedure well. Findings Foreign body (chicken bone measuring 3.5 cm) seen in the upper esophagus at 20 cm; retrieved using cold snare Z-line irregular at 40 cm For hernia measuring 3 cm Patchy erythema with small erosions in the pyloric area consistent with erosive gastropathy. Biopsies were not obtained given history of recent Plavix intake Patchy erythema in the duodenum. No biopsies obtained Post-Procedure Complications: none. Estimated blood loss: none. Devices/ implants: none left in place. Impression and Plan EGD: Diagnosis: Esophageal foreign body ([id number] T18.108A, Discharge, Medical). Course: Progressing as expected. Education and Follow-up: Counseled. Notes: Obtain H. pylori stool antigen Start PPI once daily Repeat EGD after 3 months to obtain esophageal and stomach biopsies. [1] Services Consulted Consult to GI - Ordered -- 09/23/23 1:11:00 EST, esophageal foreign body, Consult and Co-manage Physical Exam Vitals & Measurements T: 36.8 ?C(Temporal Artery) TMIN: 36.6 ?C(Oral) TMAX: 36.8 ?C(Oral) HR: 67(Monitored) RR: 21 BP: 148/78 SpO2: 99% HT: 182.88 cm WT: 109.8 kg General: Adult male, no acute distress Head: Normocephalic/atraumatic Eyes: PERRLA, normal EOM HEENT: [place], moist mucous membranes and normal tongue Normal oropharynx, and posterior pharynx without lesions or exudates. Neck: Trachea midline, neck supple, no lymphadenopathy, no stridor Chest: No chest wall deformity, no chest wall tenderness Lungs: Lungs clear anterior, posteriorly Cardio: Normal rate, currently in NSR, no edema Pulses: Normal capillary refill Abdomen: Soft, non-distended, non-tender, normal BS Musculos (more content not included)... [facility] Comment on above: Result Comment: Elec tronically Signed By: Ariana ECKERT CNP\.br\Date and Time Signed: 09/23/23 14:07 EST\.br\Electronically Co-Signed By: Lobito FARFAN, Neel\.br\Date and Time Co-Signed: 09/25/23 06:50 EST 09-23-2023 Note Chief Complaint Chicken Bone in my throat History of Present Illness The following is a history and physical performed on the patient who was transferred from [place] emergency department arrived just prior to midnight due to esophageal food impaction was a chicken wing and they did not have specialists/equipment or backup to be able to take care of the patient and recommendation was made to transfer to another facility. Have been advised by the clinician at home I received the report Dr. Velasco had suggested consideration of transfer to our facility. The home health aide caregiver environmental monitoring technician Dr. Costa was contacted who then recommended admission to the hospitalist service. Below history was obtained from the patient when I met him on the general medical floor I find him to be a very pleasant 60-year-old obese white male with a past medical history significant for coronary artery disease he states in November 2021 he presented to [place] emergency department acute AK he was transferred to [facility] with Dr. Fuller placed 3 stents. Patient implies in layman's terms there was no impaired systolic function. He is treated for hypertension, hyperlipidemia, depression and a history of chronic back pain June 25, 2027 he did have transforaminal epidural steroid injections at the L4-L5 level and has been on gabapentin and tramadol as needed. Patient presented to the outside hospital per his own historical retrieval for below Patient states he was approximately 3 PM where he was eating chicken. Swallowing the chicken felt as if the bone was stuck in his throat. He had immediate right-sided neck and throat pain which he rated as an 8 on a scale of 1-10 and states that initially he had difficulty breathing. He states however he coughed and he had instantaneous resolution of his shortness of breath. He denied any recent shortness of breath, cough prior to this or any fevers or chills. Patient denies a prior history of difficulty swallowing. Upon interview did not admit to history suggestive of aspiration. He denies any prior history just of of esophageal food bolus denies any prior dysphagia or odynophagia. He also denies any heartburn or reflux. He states without delay he drove himself to the [facility]. Patient was given a GI cocktail which patient states have him some relief but it did not his tongue. He did have CT soft tissues of the neck there was a 3.7 cm object noted in his proximal esophagus suspected as being bone . Patient states his pain is significantly improved rated as a 1 on a scale of 1-10 although when he attempts to swallow it is rated as as a 2 on a scale of 1-10. Has been n.p.o. since his presentation to [facility] other than the GI cocktail. He denies any chest pain or any other complaints. 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 He has had no chest pain with this activity, no shortness of breath with this activity no symptoms similar to when he had his acute AK when he had chest pressure and shortness of breath. Patient states he has had 2-3 episodes over the past 2 months where he will have a transient sensation that his heart is racing, usually occurs when not exertional, not associated with chest pain or shortness of breath. States on 1 occasion he used a home blood pressure monitor was 91/50. Patient states his heart rate was greater than 100. His PCP had evaluated him performed a 48-hour Holter monitor but he was not symptomatic and there was no arrhythmia noted. Review of Systems Constitutional: no fever, no chills, no sweats, Skin: no Jaundice, no rash, no lesions, nopetechiae ENMT: no ear pain, mild to moderate sore throat, no congestion, no hoarseness Respiratory: Continued short of breath which resolved with coughing as suggested above, no preceding cough shortness of breath fevers or chills prior to above event, no orthopnea, no wheezing Cardiovascular: no chest pain, 3 episodes of transient lasting only a few minutes palpitations, no edema Gastrointestinal: no nausea, no vomiting, no diarrhea, no GI bleeding Genitourinary: no dysuria, no hematuria, Musculoskeletal: no acute back pain, no trauma Neurologic: no headache, no dizziness, no numbness, no weakness Psychiatric: no sleeping problems, no irritability, . Heme/Lymph: no bleeding tendency, no bruising tendency, no petechiae, no swollen nodes Allergy/Immunologic: no seasonal allergies, no food allergies, no recurrent infections, no impaired immunity Additional ROS info: Except as noted in the above Review of Systems and in the History of Present Illness all other systems have been reviewed and are negative or noncontributory. Scoring Ontiveros Fall Risk Score: 40 (09/23/23) Physical Exam General: alert, no acute distress. Skin: warm, dry Head: no trauma, normocephalic Neck: Trachea midline, no adenopathy, no tenderness Eye: normal conjunctiva, sclera ba (more content not included)... [facility] Comment on above: Result Comment: Elec tronically Signed By: Erwin VALADEZ DObr\Date and Time Signed: 09/23/23 01:23 EST 09-17-2023 Note Entered by ADRIANO MADDOX DO on September 17, 2023 07:47:46 EST From: JOE MADDOX DO To: [facility]/pharmacy #[id number] Sent: 09/17/2023 07:47:46 EST Subject: Medication Management Submitted: Complete:clopidogrel (clopidogrel 75 mg oral tablet) Signed by JOE MADDOX DO 09/17/2023 07:47:00 EST Approved with modifications: clopidogrel (CLOPIDOGREL 75 MG TABLET) TAKE 1 TABLET BY MOUTH EVERY DAY Qty: 90 tab(s) Days Supply: 90 Refills: 1 Substitutions Allowed Route To Pharmacy - [facility]/pharmacy #[id number] --- From: [facility] STORE [id number] To: JOE MADDOX DO Sent: September 16, 2023 11:21:06 PM [facility] Subject: Medication Management Due: September 17, 2023 12:02:40 AM [facility] On Hold Pending Signature Dispensed Drug: clopidogrel (clopidogrel 75 mg oral tablet), TAKE 1 TABLET BY MOUTH EVERY DAY Quantity: 90 tab(s) Days Supply: 90 Refills: 0 Substitutions Allowed Notes from Pharmacy: --- [facility] 09-07-2023 Note Entered by ADRIANO MADDOX DO on September 07, 2023 07:40:54 EST From: JOE MADDOX DO To: [facility]/pharmacy #[id number] Sent: 09/07/2023 07:40:54 EST Subject: Medication Management Submitted: Complete:valsartan (valsartan 160 mg oral tablet) Signed by JOE MADDOX DO 09/07/2023 07:40:00 EST Approved with modifications: valsartan (VALSARTAN 160 MG TABLET) TAKE 1 TABLET BY MOUTH EVERY DAY Qty: 90 tab(s) Days Supply: 90 Refills: 1 Substitutions Allowed Route To Pharmacy - [facility]/pharmacy #[id number] --- From: [facility] STORE [id number] To: JOE MADDOX DO Sent: September 03, 2023 11:17:15 PM [facility] Subject: Medication Management Due: September 04, 2023 12:08:50 AM [facility] On Hold Pending Signature Dispensed Drug: valsartan (valsartan 160 mg oral tablet), TAKE 1 TABLET BY MOUTH EVERY DAY Quantity: 90 tab(s) Days Supply: 90 Refills: 1 Substitutions Allowed Notes from Pharmacy: --- [facility] 09-03-2023 Note Entered by ADRIANO MADDOX DO on September 03, 2023 07:30:22 EST From: JOE MADDOX DO To: [facility]/pharmacy #[id number] Sent: 09/03/2023 07:30:21 EST Subject: Medication Management Submitted: Complete:atorvastatin (atorvastatin 80 mg oral tablet) Signed by JOE MADDOX DO 09/03/2023 07:30:00 EST Approved with modifications: atorvastatin (ATORVASTATIN 80 MG TABLET) TAKE 1 TABLET BY MOUTH EVERY DAY Qty: 90 tab(s) Days Supply: 90 Refills: 1 Substitutions Allowed Route To Pharmacy - [facility]/pharmacy #[id number] --- From: [facility] STORE [id number] To: JOE MADDOX DO Sent: September 02, 2023 11:17:42 PM [facility] Subject: Medication Management Due: September 03, 2023 12:14:24 AM [facility] On Hold Pending Signature Dispensed Drug: atorvastatin (atorvastatin 80 mg oral tablet), TAKE 1 TABLET BY MOUTH EVERY DAY Quantity: 90 tab(s) Days Supply: 90 Refills: 0 Substitutions Allowed Notes from Pharmacy: --- [facility] 06-25-2023 Note [id number] [email or web address] [facility] 06-08-2023 Note Entered by ADRIANO MADDOX DO on June 08, 2023 07:47:25 EST From: JOE MADDOX DO To: [facility]/pharmacy #[id number] Sent: 06/08/2023 07:47:25 EST Subject: Medication Management Submitted: Complete:traZODone (traZODone 50 mg oral tablet) Signed by JOE MADDOX DO 06/08/2023 07:47:00 EST Approved with modifications: traZODone (TRAZODONE 50 MG TABLET) TAKE 1 TABLET BY MOUTH EVERYDAY AT BEDTIME Qty: 90 tab(s) Days Supply: 90 Refills: 1 Substitutions Allowed Route To Pharmacy - [facility]/pharmacy #[id number] --- From: [facility] STORE [id number] To: JOE MADDOX DO Sent: June 07, 2023 8:05:13 PM [facility] Subject: Medication Management Due: June 08, 2023 12:24:48 AM [facility] On Hold Pending Signature Dispensed Drug: traZODone (traZODone 50 mg oral tablet), TAKE 1 TABLET BY MOUTH EVERYDAY AT BEDTIME Quantity: 90 tab(s) Days Supply: 90 Refills: 0 Substitutions Allowed Notes from Pharmacy: --- [facility] 05-19-2023 Note [id number] [id number] [facility] 12-10-2022 Note Procedure: Interlami pnenie lumbar epidural steroid injection under fluoroscopic guidance [...] guidance. The epidural space was identified via [id number] to air. Proper needle position was confirmed [...] to the recovery room in good condition. [facility] Comment on above: Result Comment: Elec tronically Signed By: Ara FARFAN, Ilya\.deborah\Date and Time Signed: 12/10/22 15:40 EDT 12-10-2022 Note [id number] [id number]:127 [facility] 04-02-2022 Note PROCEDURE: XR HIP LT 2 [...] authenticated by: JEAN-PAUL SALAS Date: 2022-04-02 15:09 [facility] 08-08-2021 Evaluation note Encounter Date Diagnosis Assessment [...] Patient care instructions given in writting by [facility] document. PS DEPT. Other History general Narrative - Reported* Type Description Date Medical History restless leg syndrome Medical History hypertension Medical History Arthritis Surgical History appendectomy Surgical History colonoscopy Surgical History wisdom teeth extract Surgical History hip replacement Surgical History right shoulder arthritis remova l Surgical History carpal tunnel PS DEPT. Other History of Present illness Narrative* The [...] medication regimen. He denies medication side effects. -[facility] [facility] DO Work Phone: Chief Complaint [...] of this year he sustained non-ST elevation AK with subsequent revascularization of the LAD and [...] of this year he sustained non-ST elevation AK with subsequent revascularization of the LAD and [...] In November 2021 he underwent non-ST elevation AK with primary revascularization of the LAD diagonal [...] In November 2021 he underwent non-ST elevation AK with primary revascularization of the LAD diagonal branch performed by Dr. Elieser Landers, utilizing a 2.5 x 34 mm [place] stent to the distal LAD, 2.75 x [...] content) DATE CREATED AUTHOR 06/19/2022 [facility] DATE CREATED AUTHOR AUTHOR'S ORGANIZ ATION 08/23/2022 [facility] DATE CREATED AUTHOR AUTHOR'S ORGANIZ ATION 03/27/2023 [facility] DATE CREATED AUTHOR AUTHOR'S ORGANIZ ATION 03/27/2023 [facility] DATE CREATED AUTHOR AUTHOR'S ORGANIZ ATION 09/26/2023 [facility] DATE CREATED AUTHOR AUTHOR'S ORGANIZ ATION 09/27/2023 [facility] FOR RECORDS PERTAINING TO PATIENTS WHO [...] BE BASED ON THE PRIMARY CLINICAL RECORDS. [employer] provides no warranty or guarantee of the accuracy or completeness of information in this document.
[2023-09-29 21:47] VITALS: O2SAT 96
[2023-09-29 22:00] LABS: Basophils Absolute Auto 0.1 10^3/uL (0.0-0.1); Basophils Percent Auto 0.7 % (0.2-2.0); Eosinophils Absolute Auto 0.5 10^3/uL (0.0-0.7); Eosinophils Percent Auto 3.7 % (0.9-7.0); Hematocrit 38.1 % (42.0-54.0); Hemoglobin 11.8 g/dL (14.0-18.0); Immature Granulocytes Abs Auto 0.15 10^3/uL (0.00-0.03); Immature Granulocytes Pct Auto 1.1 % (0.0-0.5); Lymphocytes Absolute Auto 2.5 10^3/uL (1.2-3.8); Lymphocytes Percent Auto 18.8 % (20.5-60.0); Mean Corpuscular Hemoglobin 26.3 pg (25.9-34.0); Mean Corpuscular Volume 84.9 fL (80.0-94.0); Mean Platelet Volume 8.8 fL (9.5-13.5); Monocytes Absolute Auto 0.9 10^3/uL (0.3-0.8); Monocytes Percent Auto 7.1 % (1.7-12.0); Neutrophils Percent Auto 68.6 % (43.0-75.0); Platelet Count 282 10^3/uL (150-450); Red Blood Count 4.49 10^6/uL (4.70-6.10); Red Cell Distribution Width 13.5 % (11.0-15.0); White Blood Count 13.1 10^3/uL (4.0-11.0)
--- NOTE | 2023-09-29 22:12 | PC.NURSE ---
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 He says there is one that contains chlorine and one that does not, he is unsure which he was using because the label was rubbed off. MSDS was obtained for both and given to Dr. Navarro. Patient has 1st degree madsen to right side of face, the hair of the right side if his head is singed, there is a small laceration to the left side of his nose with minimal bleeding and dried blood present. Patient is complaining of pressure in the right side of his chest, increased with inhalation.
[2023-09-29 22:20] LABS: Anion Gap 8.8; BUN Creatinine Ratio 28.3; Calcium 9.4 mg/dL (8.5-10.1); Carbon Dioxide 30.2 mmol/L (21.0-32.0); Chloride 103 mmol/L (98-107); Estimated GFR (African America >60 (>=60); Estimated GFR (Non-African Ame >60 (>=60); Glucose 156 mg/dL (74-106); Sodium 138 mmol/L (136-145)
[2023-09-29 22:25] LABS: ABG PCO2 43.6 mmHg (35.0-45.0); HCO3 ABG 29.2 mmol/L (22.0-26.0); PO2 ABG 77.2 mmHg (80.0-100.0); pH ABG 7.435 (7.350-7.450)
[2023-09-29 22:26] LABS: Methemoglobin ABG <1.0 % (1.1-1.9); Oxygen Saturation ABG 96.7 %
[2023-09-29 22:29] LABS: Allen Test POSITIVE (POSITIVE); Carboxyhemoglobin 1.1 % (1.5-4.9); O2 Mode ROOM AIR
[2023-09-29 22:30] LABS: Puncture Site LR
[2023-09-29 22:32] LABS: Troponin I High Sensitivity 314.4 pg/mL (4.0-76.1)
[2023-09-29 23:14] LABS: INR 1.02; Partial Thromboplastin Time 28.8 sec (22.3-36.2); Prothrombin Time 10.8 sec (9.0-11.6)
[2023-09-29] MEDS: HEPARIN SODIUM (PORCINE) 5,000 UNIT/ML VIAL 4000 UNIT IV (23:48)
[2023-09-29] MEDS: HEPARIN SODIUM,PORCINE/D5W 25,000 UNIT/500 ML IV.SOLN 27.9780000000000015 UNIT IV (23:49)
[2023-09-30 00:14] VITALS: BP 152/83; PULSE 83; RESP 20; O2SAT 98
== END 2023-09-30 01:13 | disposition short-term general hospital (02) ==
PROVIDERS: Emergency Provider Internal Medicine; PCP Family Medicine
DX: I21.4 Non-ST elevation (NSTEMI) myocardial infarction (principal); T59.811A Toxic effect of smoke, accidental (unintentional), initial encounter; T23.201A Burn of second degree of right hand, unspecified site, initial encounter; T20.16XA Burn of first degree of forehead and cheek, initial encounter; X08.8XXA Exposure to other specified smoke, fire and flames, initial encounter; I25.10 Atherosclerotic heart disease of native coronary artery without angina pectoris; Z79.899 Other long term (current) drug therapy; Z95.5 Presence of coronary angioplasty implant and graft
CPT/HCPCS: 36415; 36600; 71046; 80048; 82375; 82805; 83050; 84484; 85025; 85610; 85730; 93005; 96374; 99285

== ENCOUNTER 2023-11-02 15:27 | Outpatient (OUT) | payer MEDICARE, MEDICAID, SELFPAY | END 2023-11-02 15:28 | disposition home or self-care (01) | LOC: PST 15:28 | PROVIDERS: PCP Family Medicine; Visit Provider Surgery | DX: Z01.818 Encounter for other preprocedural examination (principal); R19.5 Other fecal abnormalities ==

== ENCOUNTER 2023-11-04 08:23 | Day surgery (SDC) | payer MEDICARE, MEDICAID, SELFPAY ==
[2023-11-04 08:35] VITALS: BP 147/64; PULSE 74; TEMP 36.3; O2SAT 97; BMI 34.6
--- OUTSIDE RECORDS SUMMARY | 2023-11-04 08:40 | XMS_ITS | CCD ---
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 return or call with any questions or concerns that arise. [facility] Comment on above: Result Comment: Elec tronically Signed By: García Castro DO.br\Date and Time Signed: 10/15/23 11:29 EDT In office Testingon 10-15-19 In office Testing [id number]#1.00TIF F [facility] Office/Clinic Note-Physician on 10-15-2023 Office/Clinic Note-Physician [id number]#1.00TIF F [facility] Orders Officeon 10-15-2023 Orders Office [id number]#1.00TIF F Normal [facility] [employer] Drug Screen-LCon 024 Test Name tox flex 23 Invalid Interpretation Code [facility] Comment on above: Performed By: #### 1 [id number] #### [facility] [address] [place] [address] Patient Correspondenceon Patient Correspondence [id number]#1.00TIF F Normal [facility] Patient Correspondence [id number]#1.00TIF F Normal [facility] Patient History Officeon Patient History Office [id number]#1.00TIF F [facility] Release of Records Officeon 10-15-2023 Release of Records Office [id number]#1.00TIF F [facility] Outside Recordson 10-12-2023 Outside Records [id number]#1.00O TGTIFF [facility] Outside Recordson 10-02-2023 Outside Records [id number]#1.00[facility] 09-17 Anion gap [Moles/Vol] 12.3 mmol/L Normal 6.0-15.0 [facility] Comment on above: Order Comment: WAIT TO DRAW RN BUST AT THE MOMENT WOULD LIKE TO BE PRESENT Performed By: #### B MP, CBC #### [facility] [address] [place] [address] [facility] Calcium [Mass/Vol] 8.9 mg/dL Normal 8.6-10.3 [facility] Comment on above: Order Comment: WAIT TO DRAW RN BUST AT THE MOMENT WOULD LIKE TO BE PRESENT Performed By: #### B MP, CBC #### [facility] [address] [place] [address] Chloride [Moles/Vol] 102 mmol/L Normal 98-107 [facility] Comment on above: Order Comment: WAIT TO DRAW RN BUST AT THE MOMENT WOULD LIKE TO BE PRESENT Performed By: #### B MP, CBC #### [address] CO2 [Moles/Vol] 28.8 mmol/L Normal 21.0-31.0 [facility] Comment on above: Order Comment: WAIT TO DRAW RN BUST AT THE MOMENT WOULD LIKE TO BE PRESENT Performed By: #### B MP, CBC #### [address] Creatinine [Mass/Vol] 0.88 mg/dL Normal 0.70-1.30 [facility] Comment on above: Order Comment: WAIT TO DRAW RN BUST AT THE MOMENT WOULD LIKE TO BE PRESENT Performed By: #### B MP, CBC #### [address] Creatinine Clr Calc Pharmacy 106.55 [facility] Comment on above: Order Comment: WAIT TO DRAW RN BUST AT THE MOMENT WOULD LIKE TO BE PRESENT Result Comment: PERF ORMED BY: [place] [address] PATHOLOGIST DRIVER MESSENGER KAREN CORONADO M.D. Performed By: #### B MP, CBC #### [address] GFR/1.73 sq M.predicted MDRD (S/P/Bld) [Vol rate/Area] mL/min/{1.73_m2} [facility] Comment on above: Order Comment: WAIT TO DRAW RN BUST AT THE MOMENT WOULD LIKE TO BE PRESENT Performed By: #### B MP, CBC #### [address] Glucose [Mass/Vol] 116 mg/dL High 70-100 [facility] Comment on above: Order Comment: WAIT TO DRAW RN BUST AT THE MOMENT WOULD LIKE TO BE PRESENT Result Comment: [place] Glucose Reference Range is dependent on time and content of last meal. Glucose of more than 200 mg/dL in a nonstressed, ambulatory subject supports the diagnosis of Diabetes Mellitus. ADA recommended reference range Performed By: #### B MP, CBC #### [facility] [address] Potassium [Moles/Vol] 4.1 mmol/L Normal 3.5-5.1 [facility] Comment on above: Order Comment: WAIT TO DRAW RN BUST AT THE MOMENT WOULD LIKE TO BE PRESENT Performed By: #### B MP, CBC #### [address] Sodium [Moles/Vol] 139 mmol/L Normal 136-145 [facility] Comment on above: Order Comment: WAIT TO DRAW RN BUST AT THE MOMENT WOULD LIKE TO BE PRESENT Performed By: #### B MP, CBC #### [address] Urea nitrogen [Mass/Vol] 18 mg/dL Normal 7-25 [facility] Comment on above: Order Comment: WAIT TO DRAW RN BUST AT THE MOMENT WOULD LIKE TO BE PRESENT Performed By: #### B MP, CBC #### [facility] [address] [place] [address] Basophils Auto (Bld) [#/Vol] Ordered By: Maya Read on 10-01-2023 Basophils (Bld) [#/Vol] 0.1 10*3/uL 0.0-0.2 [facility] Basophils/100 WBC Auto (Bld) Ordered By: Maya Read on 10-01-2023 Basophils/100 WBC (Bld) 0.6 % . F [facility] Calcium [Mass/volume] in Ser um or PlasmaOrdered By: Maya Read on 10-01-2023 Calcium [Mass/Vol] 8.9 mg/dL 8.6-10.3 [facility] Carbon dioxide, total [Moles /volume] in Serum or PlasmaOrdered By: Maya Read on 10-01-2023 CO2 [Moles/Vol] 28.8 mmol/L 21.0-31.0 [facility] Chloride [Moles/volume] in S jada or PlasmaOrdered By: Maya Read on 10-01-2023 Chloride [Moles/Vol] 102 mmol/L 98-107 [facility] Complete Blood Count Auto Di ffon 10-01-2023 Basophils (Bld) [#/Vol] 0.1 10*3/uL Normal 0.0-0.2 [facility] Comment on above: Order Comment: WAIT TO DRAW RN BUST AT THE MOMENT WOULD LIKE TO BE PRESENT Result Comment: PERF ORMED BY: [place] [address] PATHOLOGIST DRIVER MESSENGER KAREN CORONADO M.D. Performed By: #### B MP, CBC #### [address] Basophils/100 WBC (Bld) 0.6 % Normal . [facility] Comment on above: Order Comment: WAIT TO DRAW RN BUST AT THE MOMENT WOULD LIKE TO BE PRESENT Performed By: #### B MP, CBC #### [address] Eosinophils (Bld) [#/Vol] 0.3 10*3/uL Normal 0.0-0.45 [facility] Comment on above: Order Comment: WAIT TO DRAW RN BUST AT THE MOMENT WOULD LIKE TO BE PRESENT Performed By: #### B MP, CBC #### [address] Eosinophils/100 WBC (Bld) 2.3 % Normal . [facility] Comment on above: Order Comment: WAIT TO DRAW RN BUST AT THE MOMENT WOULD LIKE TO BE PRESENT Performed By: #### B MP, CBC #### [address] Erythrocyte distribution width (RBC) [Ratio] 14.4 % Normal 12.0-14.8 [facility] Comment on above: Order Comment: WAIT TO DRAW RN BUST AT THE MOMENT WOULD LIKE TO BE PRESENT Performed By: #### B MP, CBC #### [address] Hematocrit (Bld) [Volume fraction] 36.7 % Low 38.8-50.0 [facility] Comment on above: Order Comment: WAIT TO DRAW RN BUST AT THE MOMENT WOULD LIKE TO BE PRESENT Performed By: #### B MP, CBC #### [address] Hemoglobin (Bld) [Mass/Vol] 12.0 g/dL Low 13.0-17.0 [facility] Comment on above: Order Comment: WAIT TO DRAW RN BUST AT THE MOMENT WOULD LIKE TO BE PRESENT Performed By: #### B MP, CBC #### [address] Lymphocytes (Bld) [#/Vol] 2.4 10*3/uL Normal 1.00-4.8 [facility] Comment on above: Order Comment: WAIT TO DRAW RN BUST AT THE MOMENT WOULD LIKE TO BE PRESENT Performed By: #### B MP, CBC #### [address] Lymphocytes/100 WBC (Bld) 21.1 % Normal . [facility] Comment on above: Order Comment: WAIT TO DRAW RN BUST AT THE MOMENT WOULD LIKE TO BE PRESENT Performed By: #### B MP, CBC #### [address] MCH (RBC) [Entitic mass] 26.1 pg Low 27.5-35.2 [facility] Comment on above: Order Comment: WAIT TO DRAW RN BUST AT THE MOMENT WOULD LIKE TO BE PRESENT Performed By: #### B MP, CBC #### [address] MCV (RBC) [Entitic vol] 80.0 fL Low 83.5-101 F [facility] Comment on above: Order Comment: WAIT TO DRAW RN BUST AT THE MOMENT WOULD LIKE TO BE PRESENT Performed By: #### B MP, CBC #### [address] Mean Corpuscular HGB Conc 32.6 g/dL Normal 32.5-35.6 [facility] Comment on above: Order Comment: WAIT TO DRAW RN BUST AT THE MOMENT WOULD LIKE TO BE PRESENT Performed By: #### B MP, CBC #### [address] Monocytes (Bld) [#/Vol] 0.9 10*3/uL High 0.0-0.8 [facility] Comment on above: Order Comment: WAIT TO DRAW RN BUST AT THE MOMENT WOULD LIKE TO BE PRESENT Performed By: #### B MP, CBC #### [address] Monocytes/100 WBC (Bld) 8.2 % Normal . [facility] Comment on above: Order Comment: WAIT TO DRAW RN BUST AT THE MOMENT WOULD LIKE TO BE PRESENT Performed By: #### B MP, CBC #### [address] Neutrophils (Bld) [#/Vol] 7.6 10*3/uL Normal 1.8-7.7 [facility] Comment on above: Order Comment: WAIT TO DRAW RN BUST AT THE MOMENT WOULD LIKE TO BE PRESENT Performed By: #### B MP, CBC #### [address] Neutrophils/100 WBC (Bld) 67.8 % Normal . [facility] Comment on above: Order Comment: WAIT TO DRAW RN BUST AT THE MOMENT WOULD LIKE TO BE PRESENT Performed By: #### B MP, CBC #### [address] NRBC% 0.0 /100{WBC} Normal 0-0.5 [facility] Comment on above: Order Comment: WAIT TO DRAW RN BUST AT THE MOMENT WOULD LIKE TO BE PRESENT Performed By: #### B MP, CBC #### [address] Platelet mean volume (Bld) [Entitic vol] 6.9 fL Normal 6.6-10.1 [facility] Comment on above: Order Comment: WAIT TO DRAW RN BUST AT THE MOMENT WOULD LIKE TO BE PRESENT Performed By: #### B MP, CBC #### [facility] [address] Platelets (Bld) [#/Vol] 317 10*3/uL Normal 150-450 [facility] Comment on above: Order Comment: WAIT TO DRAW RN BUST AT THE MOMENT WOULD LIKE TO BE PRESENT Performed By: #### B MP, CBC #### [facility] [address] RBC (Bld) [#/Vol] 4.59 10*6/uL Normal 3.90-5.60 [facility] Comment on above: Order Comment: WAIT TO DRAW RN BUST AT THE MOMENT WOULD LIKE TO BE PRESENT Performed By: #### B MP, CBC #### [facility] [address] WBC (Bld) [#/Vol] 11.2 10*3/uL High 4.1-10.5 [facility] Comment on above: Order Comment: WAIT TO DRAW RN BUST AT THE MOMENT WOULD LIKE TO BE PRESENT Performed By: #### B MP, CBC #### [facility] [address] Creatinine [Mass/volume] in Serum or PlasmaOrdered By: Maya Read on 10-01-2023 Creatinine [Mass/Vol] 0.88 mg/dL 0.70-1.30 [facility] Eosinophils Auto (Bld) [#/Vo l]Ordered By: Maya Read on 10-01-2023 Eosinophils (Bld) [#/Vol] 0.3 10*3/uL 0.0-0.45 [facility] Eosinophils/100 WBC Auto (Bl d)Ordered By: Maya Read on 10-01-2023 Eosinophils/100 WBC (Bld) 2.3 % . [facility] Erythrocyte distribution wid th Auto (RBC) [Ratio]Ordered By: Maya Read on 10-01-2023 Erythrocyte distribution width (RBC) [Ratio] 14.4 % 12.0-14.8 [facility] Glucose [Mass/volume] in Ser um or PlasmaOrdered By: Maya Read on 10-01-2023 Glucose [Mass/Vol] 116 mg/dL 70-100 [facility] Comment on above: ADA recommended refe rence rangeRandom Glucose Reference Range is dependent on time and content of last meal. Glucose of more than 200 mg/dL in a nonstressed, ambulatory subject supports the diagnosis of Diabetes Mellitus. Hematocrit Auto (Bld) [Volum e fraction]Ordered By: Maya Read on 10-01-2023 Hematocrit (Bld) [Volume fraction] 36.7 % 38.8-50.0 [facility] Hemoglobin [Mass/volume] in BloodOrdered By: Maya Read on 10-01-2023 Hemoglobin (Bld) [Mass/Vol] 12.0 g/dL 13.0-17.0 [facility] Leukocytes [#/volume] correc jorge for nucleated erythrocytes in Blood by Automated counOrdered By: Maya Read on 10-01-2023 WBC corrected for nucl RBC Auto (Bld) [#/Vol] 11.2 10*3/uL 4.1-10.5 [facility] Lymphocytes Auto (Bld) [#/Vo l]Ordered By: Maya Read on 10-01-2023 Lymphocytes (Bld) [#/Vol] 2.4 10*3/uL 1.00-4.8 [facility] Lymphocytes/100 WBC Auto (Bl d)Ordered By: Maya Read on 10-01-2023 Lymphocytes/100 WBC (Bld) 21.1 % . [facility] MCH Auto (RBC) [Entitic mass ]Ordered By: Maya Read on 10-01-2023 MCH (RBC) [Entitic mass] 26.1 pg 27.5-35.2 [facility] MCHC Auto (RBC) [Mass/Vol]Or dered By: Maya Read on 10-01-2023 MCHC (RBC) [Mass/Vol] 32.6 g/dL 32.5-35.6 [facility] MCV Auto (RBC) [Entitic vol] Ordered By: Maya Read on 10-01-2023 MCV (RBC) [Entitic vol] 80.0 fL 83.5-101 [facility] Monocytes Auto (Bld) [#/Vol] Ordered By: Maya Read on 10-01-2023 Monocytes (Bld) [#/Vol] 0.9 10*3/uL 0.0-0.8 [facility] Monocytes/100 WBC Auto (Bld) Ordered By: Maya Read on 10-01-2023 Monocytes/100 WBC (Bld) 8.2 % . F [facility] Neutrophils Auto (Bld) [#/Vo l]Ordered By: Maya Read on 10-01-2023 Neutrophils (Bld) [#/Vol] 7.6 10*3/uL 1.8-7.7 [facility] Neutrophils/100 WBC Auto (Bl d)Ordered By: Maya Read on 10-01-2023 Neutrophils/100 WBC (Bld) 67.8 % . [facility] No Panel InformationOrdered By: Maya Read on 10-01-2023 Estimated GFR (CKD-EPI) > 60.0 mL/Min [facility] Creatinine Clearance (Chem 106.55 [facility] Nucleated erythrocytes [Pres ence] in Blood by Automated countOrdered By: Maya Read on 10-01-2023 Nucleated RBC Auto Ql (Bld) 0.0 /100{WBC} 0-0.5 [facility] Outside Recordson 10-01-2023 Outside Records [id number]#1.00OT GTIFF Normal [facility] Platelet mean volume Auto (B ld) [Entitic vol]Ordered By: Maya Read on 10-01-2023 Platelet mean volume (Bld) [Entitic vol] 6.9 fL 6.6-10.1 [facility] Platelets Auto (Bld) [#/Vol] Ordered By: Maya Read on 10-01-2023 Platelets (Bld) [#/Vol] 317 10*3/uL 150-450 [facility] Potassium [Moles/volume] in Serum or PlasmaOrdered By: Maya Read on 10-01-2023 Potassium [Moles/Vol] 4.1 mmol/L 3.5-5.1 [facility] RBC Auto (Bld) [#/Vol]Ordere d By: Isaiahalessandro Jacke on 10-01-2023 RBC (Bld) [#/Vol] 4.59 10*6/uL 3.90-5.60 [facility] Serum or plasma anion gap de terminationOrdered By: Maya Read on 10-01-2023 Anion gap [Moles/Vol] 12.3 mmol/L 6.0-15.0 [facility] Sodium [Moles/volume] in Ser um or PlasmaOrdered By: Maya Read on 10-01-2023 Sodium [Moles/Vol] 139 mmol/L 136-145 [facility] Urea nitrogen [Mass/volume] in Serum or PlasmaOrdered By: Maya Read on 10-01-2023 Urea nitrogen [Mass/Vol] 18 mg/dL 7-25 [facility] WBC Auto (Bld) [#/Vol]Ordere d By: Maya Read on 10-01-2023 WBC (Bld) [#/Vol] 11.2 10*3/uL 4.1-10.5 [facility] [place] A1C with Estimated Average G matthieun 09-30-2023 Glucose [Mass/Vol] 134 mg/dL Normal [facility] Comment on above: Result Comment: PERF ORMED BY: [place] [address] PATHOLOGIST DRIVER MESSENGER KAREN CORONADO M.D. Performed By: #### A 1C [facility] eA #### [address] HbA1c (Bld) [Mass fraction] 6.3 % High 4.3-5.6 [facility] Comment on above: Result Comment: Incr eased risk for diabetes: 5.7 - 6.4 diabetes: >6.4 glycemic control for adults with diabetes: <7.0 Performed By: #### A 1C [facility] eA #### [facility] [address] [place] [address] Activated partial thrombopla stin time (aPTT) in platelet poor plasma by coagulation aOrdered By: Singh Mack on 09-30-2023 aPTT Coag (PPP) [Time] 38.4 s 25.1-36.5 [facility] Comment on above: A hematocrit value g reater than 55% may lead to inaccurate results in coagulation testing. Patients having hematocrit values >55% require a special collection tube for coagulation studies. Please contact the laboratory at [phone] for redraw instructions. Basic Metabolic Panelon 09-17 Anion gap [Moles/Vol] 11.8 mmol/L Normal 6.0-15.0 [facility] Comment on above: Performed By: #### H S TROP, MG, LIPID, BMP #### [facility] [address] [place] [address] Calcium [Mass/Vol] 8.8 mg/dL Normal 8.6-10.3 [facility] Comment on above: Performed By: #### H S TROP, MG, LIPID, BMP #### [facility] [address] Chloride [Moles/Vol] 102 mmol/L Normal 98-107 [facility] Comment on above: Performed By: #### H S TROP, MG, LIPID, BMP #### [address] CO2 [Moles/Vol] 27.4 mmol/L Normal 21.0-31.0 [facility] Comment on above: Performed By: #### H S TROP, MG, LIPID, BMP #### [facility] [address] [place] [address] Creatinine [Mass/Vol] 0.70 mg/dL Normal 0.70-1.30 [facility] Comment on above: Performed By: #### H S TROP, MG, LIPID, BMP #### [facility] [address] [place] [address] [place] Creatinine Clr Calc Pharmacy 117.20 [facility] Comment on above: Performed By: #### H S TROP, MG, LIPID, BMP #### [facility] [address] [place] [address] [place] GFR/1.73 sq M.predicted MDRD (S/P/Bld) [Vol rate/Area] mL/min/{1.73_m2} Normal [facility] Comment on above: Performed By: #### H S TROP, MG, LIPID, BMP #### [facility] [address] [place] [address] [place] Glucose [Mass/Vol] 101 mg/dL High 70-100 [facility] Comment on above: Result Comment: [facility] Glucose Reference Range is dependent on time and content of last meal. Glucose of more than 200 mg/dL in a nonstressed, ambulatory subject supports the diagnosis of Diabetes Mellitus. ADA recommended reference range Performed By: #### H S TROP, MG, LIPID, BMP #### [facility] [address] Potassium [Moles/Vol] 4.2 mmol/L Normal 3.5-5.1 [facility] Comment on above: Performed By: #### H S TROP, MG, LIPID, BMP #### [facility] [address] Sodium [Moles/Vol] 137 mmol/L Normal 136-145 [facility] Comment on above: Performed By: #### H S TROP, MG, LIPID, BMP #### [facility] [address] [place] [address] [place] Urea nitrogen [Mass/Vol] 24 mg/dL Normal 7-25 [facility] Comment on above: Performed By: #### H S TROP, MG, LIPID, BMP #### [facility] [address] Cholesterol [Mass/volume] in Serum or PlasmaOrdered By: Maya Read on 09-30-2023 Cholesterol [Mass/Vol] 89 mg/dL 140-200 [facility] Comment on above: Chol less than 200 m g/dl low riskChol 201-239 mg/dl borderline riskChol 240 mg/dl and greater high risk Cholesterol in LDL Calc [Mas s/Vol]Ordered By: Maya Read on 09-30-2023 Cholesterol in LDL [Mass/Vol] 39 mg/dL 0-100 [facility] Comment on above: LDL ATP III CLASSIFI CATIONLDL less than 100 mg/dL OptimalLDL 100-129 mg/dL Near or above optimalLDL 130-159 mg/dL Borderline highLDL 160-189 mg/dL HighLDL greater than 189 mg/dL Very high Cholesterol in VLDL Calc [Ma ss/Vol]Ordered By: Maya Read on 09-30-2023 Cholesterol in VLDL [Mass/Vol] 20 mg/dL [facility] ECG 12 lead ECGon 09-30-2023 ECG 12 lead ECG [facility] [place] [address] Electrocardiograph Report Signed Patient: Barry Galdamez MR#: [id number] 41 : 1955 Acct:[id number] Age/Sex: 68 / M ADM Date: 09/30/23 Loc: Room: [address] [place] [address] Type: ADM IN Attending Dr: Juaquin Mckinley MD Ordering Provider: Singh Mack DO Date of Service: 09/30/23 ECG/ECG 12 lead ECG: elevated trops Copies to: Test Reason : Blood Pressure : / mmHG Vent. Rate : 075 BPM Atrial Rate : 075 BPM P-R Int : 168 ms QRS Dur : 160 ms QT Int : 420 ms P-R-T Axes : 073 -34 064 degrees QTc Int : 469 ms Normal sinus rhythm Left axis deviation Right bundle branch block Lateral infarct (cited on or before 30-SEP-2023) Inferior infarct (cited on or before 30-SEP-2023) Abnormal ECG When compared with ECG of 30-SEP-2023 02:05, (Unconfirmed) No significant change was found Confirmed by EVELYN FARFAN, BARBARA ([id number]) on 09/30/2023 7:29:27 AM Referred By: Electronically Signed By:BARBARA RIVAS MD Transcribed By: MUS Signed By Barbara Rivas MD 0 09/30/23 6625 Normal [facility] Glucose mean value [Mass/vol ume] in Blood Estimated from glycated hemoglobinOrdered By: Singh Mack on 09-30-2023 Average glucose Estimated from glycated hemoglobin (Bld) [Mass/Vol] 134 mg/dL [facility] Hemoglobin A1c percentageOrd ered By: Singh Mack on 09-30-2023 HbA1c (Bld) [Mass fraction] 6.3 % 4.3-5.6 [facility] Comment on above: Increased risk for d iabetes: 5.7 - 6.4diabetes: >6.4glycemic control for adults with diabetes: <7.0 IntraOperative Documentson 0 09-30-2023 IntraOperative Documents [id number]#[id number] FF Normal [facility] Lipid Panelon 09-30-2023 Cholesterol [Mass/Vol] 89 mg/dL Low 140-200 [facility] Comment on above: Result Comment: Chol less than 200 mg/dl low risk Chol 201-239 mg/dl borderline risk Chol 240 mg/dl and greater high risk Performed By: #### P TT #### [facility] [address] Cholesterol in HDL [Mass/Vol] 30 mg/dL Normal 23-92 [facility] Comment on above: Result Comment: HDL CHOL ATP-III CLASSIFICATION Cardiovascular Risk HDL > or equal to 60 mg/dL LOW HDL < 40 mg/dL HIGH Performed By: #### P TT #### [facility] [address] Cholesterol.total/Ayse sterol in HDL [Mass ratio] 3.0 {ratio} Normal <5.0 [facility] Comment on above: Result Comment: PERF ORMED BY: [place] [address] PATHOLOGIST DRIVER MESSENGER KAREN CORONADO M.D. Performed By: #### P TT #### [facility] [address] LDL Cholesterol,Calculated 39 mg/dL Normal 0-100 [facility] Comment on above: Result Comment: LDL ATP III CLASSIFICATION LDL less than 100 mg/dL Optimal LDL 100-129 mg/dL Near or above optimal LDL 130-159 mg/dL Borderline high LDL 160-189 mg/dL High LDL greater than 189 mg/dL Very high Performed By: #### P TT #### [facility] [address] Triglyceride w/Reflex 101 mg/dL Normal 0-149 [facility] Comment on above: Result Comment: TRIG ATP III CLASSIFICATION TRIG less than 150 mg/dL Normal TRIG 150-199 mg/dL Borderline high TRIG 200-500 mg/dL High TRIG greater than 500 mg/dL Very high Standard traceable to the Center for Disease Conrtrol and Prevention (CDC) test method. Performed By: #### P TT #### [facility] [address] VLDL CHOLESTEROL 20 mg/dL Normal [facility] Comment on above: Performed By: #### P TT #### [facility] [address] Magnesiumon 09-30-2023 Magnesium [Mass/Vol] 1.8 mg/dL Low 1.9-2.7 [facility] Comment on above: Performed By: #### P TT #### [facility] [address] [place] [address] Magnesium [Mass/volume] in S jada or PlasmaOrdered By: Maya Read on 09-30-2023 Magnesium [Mass/Vol] 1.8 mg/dL 1.9-2.7 [facility] Monitor Recordon 09-30-2023 Monitor Record [id number] 3030 [id number]#[id number] FF Normal [facility] Outside Recordson 09-30-2023 Outside Records [id number] [id number]#1.00O TGTIFF [place] [facility] Outside Records [id number] TIFF [facility] Partial Thromboplastin Timeo n 09-30-2023 aPTT Coag (Bld) [Time] 38.4 s High 25.1-36.5 [facility] Comment on above: Result Comment: A he matocrit value greater than 55% may lead to inaccurate results in coagulation testing. Patients having hematocrit values >55% require a special collection tube for coagulation studies. Please contact the laboratory at [phone] for redraw instructions. PERFORMED BY: [place] [address] PATHOLOGIST DRIVER MESSENGER KAREN CORONADO M.D. Performed By: #### P TT #### [place] [id number] [facility] aPTT Coag (Bld) [Time] 39.0 s High 25.1-36.5 [facility] Comment on above: Result Comment: A he matocrit value greater than 55% may lead to inaccurate results in coagulation testing. Patients having hematocrit values >55% require a special collection tube for coagulation studies. Please contact the laboratory at [phone] for redraw instructions. PERFORMED BY: [place] [address] PATHOLOGIST DRIVER MESSENGER KAREN CORONADO M.D. Performed By: #### P TT #### [address] Serum or plasma high density lipoprotein (HDL) cholesterol measurementOrdered By: Maya Read on 09-30-2023 Cholesterol in HDL [Mass/Vol] 30 mg/dL 23- [facility] Comment on above: HDL CHOL ATP-III CLA SSIFICATION Cardiovascular RiskHDL > or equal to 60 mg/dL LOWHDL < 40 mg/dL HIGH Serum or plasma total choles terol/high density lipoprotein (HDL) cholesterol mass ratOrdered By: Maya Read on 09-30-2023 Cholesterol.total/Ayse sterol in HDL [Mass ratio] 3.0 {ratio} <5.0 [facility] Triglyceride [Mass/volume] i n Serum or PlasmaOrdered By: Maya Read on 09-30-2023 Triglyceride [Mass/Vol] 101 mg/dL 0-149 [facility] Comment on above: TRIG ATP III CLASSIF ICATIONTRIG less than 150 mg/dL NormalTRIG 150-199 mg/dL Borderline highTRIG 200-500 mg/dL High TRIG greater than 500 mg/dL Very highStandard traceable to the Center for Disease Conrtrol and Prevention (CDC) test method. Troponin I High Sensitivityo n 09-30-2023 Troponin I High Sensitivity 976.8 pg/mL Off scale high 0.0-20.0 [facility] Comment on above: Result Comment: Crit ical Result : Called to and read back by: RAMO GARRISON at: 09/30/2023 10:10:05 by:[id number] PERFORMED BY: [place] [id number] PATHOLOGIST DRIVER MESSENGER KAREN CORONADO M.D. Performed By: #### H S TROP #### [facility] [address] [place] [address] Troponin I High Sensitivity 1175.9 pg/mL Off scale high 0.0-20.0 [facility] Comment on above: Result Comment: Crit ical Result : Called to and read back by: JARON GERONIMO at: 09/30/2023 03:54:06 by:[id number] PERFORMED BY: [address] PATHOLOGIST DRIVER MESSENGER KAREN CORONADO M.D. Performed By: #### H S TROP, MG, LIPID, BMP #### [facility] [address] [place] [address] Troponin I High Sensitivity 1398.0 pg/mL Off scale high 0.0-20.0 [facility] Comment on above: Result Comment: Resu lts called at 0353 on 09/30/23 PERFORMED BY: [address] PATHOLOGIST DRIVER MESSENGER KAREN CORONADO M.D. Performed By: #### P TT #### [facility] [address] [place] [address] Troponin I.cardiac [Mass/vol ume] in Serum or Plasma by Detection limit <= 0.01 ng/Ordered By: Maya Read on 09-30-2023 Troponin I.cardiac DL <= 0.01 ng/mL [Mass/Vol] 976.8 pg/mL 0.0-20.0 [facility] Comment on above: Critical Result : Ca lled to and read back by: RAMO GARRISON at: 09/30/2023 10:10:05 by:[id number] [facility] echo transthoracicon [facility] echo transthoracic [facility] Main [place] [address] [place] [address] Echocardiogram Signed Patient: Barry Galdamez MR#: [id number] 41 : 1955 Acct:[id number] Age/Sex: 68 / M ADM Date: 09/30/23 Loc: Room: [address] [place] [address] Type: ADM IN Attending Dr: Juaquin Mckinley MD Ordering Provider: Maya Read MD, RES Date of Service: 09/30/23 [facility] echo transthoracic: NSTEMI Copies to: MD Maya Rodarte MD, RES BSA: 2.4 m2 BP: 128/71 mmHg HR: 67 Reason For Study: NSTEMI History: CAD. Morbid Obesity. HTN. PCI. Interpretation Summary Mild concentric left ventricular hypertrophy. Ejection Fraction = 45-50%. A variety of Doppler measurements indicate impaired left ventricular relaxation, which is associated with grade I/IV or mild diastolic dysfunction. There is severe apical wall hypokinesis. There is trace mitral regurgitation. Compared to prior study, changes are noted. LV VF appears to be lower. Procedure/Quality: A two-dimensional transthoracic echocardiogram with color flow, Doppler and injection of contrast agent Definity was performed. A two- dimensional transthoracic echocardiogram with color flow and Doppler was performed. The study was technically fair in quality. Left Ventricle: The left ventricular size is normal. Mild concentric left ventricular hypertrophy. Ejection Fraction = 45-50%. A variety of Doppler measurements indicate impaired left ventricular relaxation, which is associated with grade I/IV or mild diastolic dysfunction. There is severe apical wall hypokinesis. Left Atrium: The left atrium appears normal in size. Right Atrium: The right atrium appears normal in size. Right Ventricle: The right ventricular size, thickness and function are normal. Aortic Valve: The aortic valve is normal in structure and function. No aortic regurgitation is present. Mitral Valve: The mitral valve is normal in structure and function. There is trace mitral regurgitation. Tricuspid Valve: The tricuspid valve is normal in structure and function. No tricuspid regurgitation. Pulmonic Valve: The pulmonic valve is normal in structure and function. Arteries: The aortic root is normal size. Pericardium/Pleura: No pericardial effusion seen. There is no pleural effusion. IVC/Hepatic Veins: The inferior vena cava is normal in size, with a normal collapsibility index. Measurements with Normals IVSd: 1.1 cm (0.7-1.1 cm)LVIDd: 5.8 cm (3.7-5.4 cm) LVPWd: 1.2 cm (0.7-1.1 cm)LVIDs: 3.8 cm (2.3-3.6 cm) LA dimension: 3.7 cm (2.3-4.0 cm)Ao root diam: 2.8 cm(2.0-3.6 cm) asc Aorta Diam: 3.5 cm(2.1-3.4cm) Doppler with Normals LV V1 max: 99.0 cm/sec (0.7-1.7m/s)MV E max jocelyn: 67.4 cm/sec(0.8-1.3m/s) MV A max jocelyn: 93.1 cm/sec(0.0-0.0m/s) MV E/A: 0.72 (<1.5) MMode/2D Measurements Calculations RVDd: 3.0 cm FS: 34.5 % Ao root area: LVOT diam: 2.2 cm TAPSE: 2.5 cm EDV(Teich): 6.2 cm2 LVOT area: 3.8 cm2 RV S Jocelyn: 166.6 ml 13.5 cm/sec ESV(Teich): 62.0 ml EF(Teich): 62.8 % __ LVLd ap4: 8.9 cm SV(MOD-sp4): LAV(MOD-sp4): LA A2 area: 13.9 cm2 EDV(MOD-sp4): 68.0 ml 48.3 ml 170.0 ml LAV(MOD-sp2): LA A4 area: 18.2 cm2 LVLs ap4: 8.6 cm 31.3 ml LA length (vol): ESV(MOD-sp4): 5.6 cm 102.0 ml LA vol: 38.3 ml EF(MOD-sp4): 40.0 % LA vol index: 16.2 ml/m2 Doppler Measurements Calculations MV dec time: MV max PG: E/E' lat: 9.1 MV dec slope: 0.28 sec 84.0 mmHg E/E' med: 11.7 242.0 cm/sec2 __ Ao V2 max: LV V1 max PG: MR max jocelyn: RAP systole: 3.0 mmHg 139.0 cm/sec 3.9 mmHg 457.0 cm/sec Ao max P.7 mmHgLV V1 mean PG: MR max PG: Ao mean P.0 mmHg 83.5 mmHg 5.0 mmHg LV V1 mean: Ao V2 mean: 69.4 cm/sec 103.0 cm/sec LV V1 VTI: 20.7 cm Ao V2 VTI: 28.8 cm JACQUES(I,D): 2.7 cm2 JACQUES(V,D): 2.7 cm2 Transcribed By: SCV Performed At: 09/29/23 2147 Signed By: Barbara Rivas MD 09/30/23 1120 [facility] Discharge Instructionson Discharge Instructions [id number] FF [facility] Main OR Intraoperative Recor don 09-25-2023 Main OR Intraoperative Record IntraOp Document Type FT Summary Primary Physician: Hui Costa MD Finalized Date/Time: 09/25/23 14:06:26 Pt. Name: BARRY GALDAMEZ/Sex: 1955 Male Med Rec #: [id number] Physician: Erwin VALADEZ DO Financial #: [id number] Pt. Type: O Room/Bed: N318/01 Admit/Disch: 09/22/23 20:07:00 - 09/23/23 14:55:00 Institution: [...] Igor FARFAN, Hui Agosto RN, Corrina Tyler MANAGER OF SALES, Aurora Cabrera Role Performed Surgeon - Primary Crystal Mounter - Primary MANAGER OF SALES Time In 09/23/23 08:53:00 09/23/23 08:53:00 09/23/23 08:53:00 Time Out 09/23/23 09:04:00 09/23/23 09:04:00 09/23/23 09:04:00 Procedure EGD(.) EGD(.) EGD(.) Comments Dr. Shaw supervising case Last Modified By: Triny RN, Corrina Agosto RN, Corrina Agosto RN, Corrina Pulido 09/23/23 09:04:40 F 09/23/23 09:04:40 F 09/23/23 09:04:40 Entry 4 Entry 5 Case Attendee Wei Alonzo Kirstyn K Role Performed Scrub - Primary Staff - Other Time In 09/23/23 08:53:00 09/23/23 08:53:00 Time Out 09/23/23 09:04:00 09/23/23 09:04:00 Procedure EGD(.) EGD(.) Comments help in room Last Modified By: Triny RN, Corrina Agosto RN, Corrina Pulido 09/23/23 09:04:40 F 09/23/23 09:04:40 Perioperative Protocols [...] (If Applicable) PreOp Antibiotic No Time Out Hui Costa MD, Given Participants Corrina Agosto RN, Funni CRNA, Brandy J., Sparks, Micala E, Miles, [...] and tissue Entry 1 Skin Integrity Intact, Pease, Warm, and Skin Abnormality No Dry Outcomes Met? Yes Last Modified By: Triny TREVIZO, Corrina Pulido 09/23/23 09:00:05 Post-Care Text: The patient is [...] Arm Po (more content not included)... Normal [facility] Progress Note-Physicianon Progress Note-Physician Patient: BARRY GALDAMEZ [...] Problems Weak urine stream / SNOMED CT 520716172 / Confirmed Screening PSA (prostate specific antigen) / SNOMED CT 275287658 / Confirmed Osteoarthritis / SNOMED CT 1929497991 / Confirmed Nocturia / SNOMED CT 649419677 / Confirmed Impingement syndrome of right shoulder / SNOMED CT 379079904 / Confirmed HTN (hypertension) / SNOMED CT 7894665012 / Confirmed Hypertension / SNOMED CT 6296937241 / Confirmed Erectile dysfunction / SNOMED CT 6696343980 / Confirmed Depression / SNOMED CT 03286393 / Confirmed Carpal tunnel syndrome of right wrist / SNOMED CT 66521969 / Confirmed Asymptomatic microscopic hematuria / SNOMED CT 2474133052 / Confirmed Asthma / SNOMED CT 261699688 / Confirmed Arthritis / SNOMED CT 7795848 / Confirmed Hip pain, left / SNOMED CT 6431807782 / Confirmed DJD Resolved: At risk for falls / SNOMED CT 852483059 Problem added when Risk for Falls Careplan was initiated. Resolved due to patient discharge. Histories Procedure history: Left L4/5 Transforaminal Epidural Steroid Injections (8640424377) on 06/25/2023 at 67 Years. Comments: 07/31/2023 10:10 Brianna Echeverria 10% relief L5/S1 TASHA (3132551676) on 05/19/2023 at 67 Years. Comments: 06/05/2023 11:07 Theodora Oh RN L5/S1 TASHA 70% relief L5-S1 TASHA (0602036318) on 12/10/2022 at 67 Years. Comments: 01/09/2023 13:14 Adry Saab RN L5-S1 TASHA-100% relief Arthroscopy of shoulder (789863296) on 04/13/2018 at 62 Years. Comments: 04/13/2018 14:52 Marti Trinidad RN right .distal claviculectomy .extensive debridement ,subacromial decompression. Carpal tunnel release (957240011) on 04/13/2018 at 62 Years. Comments: 04/13/2018 14:52 Marti Trinidad RN right Hip arthroplasty (132066674) on 09/29/2017 at 62 Years. Comments: 09/29/2017 14:17 Imelda Palencia RN left Left hip arthrogram on 12/03/2016 at 61 Years. Appendectomy; (11024). Colonoscopy (758521937). Tooth extraction, complete mouth (96304984). Stent (522741065). Comments: 09/04/2022 14:42 JAIME Mendieta RN, Jennifer [...] adequate air exchange. Cardiovascular: Regular rhythm. Plan [place] [employer] Anesthesiologists (ASA) physical status classification: Class III. Anesthetic Preoperative Plan: Anesthesia General. [facility] Comment on above: Result Comment: Elec [...] when meets criteria ( To home ). [facility] Comment on above: Result Comment: Elec tronically Signed By: Chad Shaw Jr, DO\.br\Date and Time Signed: 09/25/23 13:53 EST [place] 09-24-2023 Consent [id number]#1.00TI FF [facility] Facesheeton 09-24-2023 Facesheet [id number]#1.00TI FF [facility] Outside Recordson 09-24-2023 Outside Records [id number]#1.00OTG TIFF [facility] Outside Records [id number]#1.00TI FF [facility] Transfer Documentson 024 Transfer Documents [id number]#1.00TI FF [facility] BMPon 09-23-2023 Anion gap [Moles/Vol] 9 mmol/L Normal 6-16 [facility] Comment on above: Performed By: #### 2 783214, 27414654, 78686074, 3784868 ####[facility] [address] [place] [address] Calcium [Mass/Vol] 9.0 mg/dL Normal 8.9-11.1 [facility] Comment on above: Performed By: #### 2 618411, 38040967, 02250748, 6697074 ####[facility] [address] [place] [place] [address] Chloride [Moles/Vol] 104 mmol/L Normal 101-111 [facility] Comment on above: Performed By: #### 2 518755, 41253075, 34633503, 6910534 ####[facility] [address] [place] [place] [address] CO2 [Moles/Vol] 31 mmol/L Normal 21-31 [facility] Comment on above: Performed By: #### 2 843751, 86287690, 32509166, 4695869 ####[facility] [address] [facility] [place] [address] Creatinine [Mass/Vol] 0.8 mg/dL Normal 0.5-1.3 [facility] Comment on above: Performed By: #### 2 644832, 38645970, 62948452, 3734235 ####[facility] [address] [place] [address] Glucose [Mass/Vol] 96 mg/dL Normal 55-199 [facility] Comment on above: Performed By: #### 2 841116, 93418690, 94552303, 9474636 ####[facility] [address] [place] [address] Potassium [Moles/Vol] 4.4 mmol/L Normal 3.5-5.3 [facility] Comment on above: Performed By: #### 2 206479, 97368661, 75722333, 1617464 ####[facility] [address] [place] [place] [address] Sodium [Moles/Vol] 140 mmol/L Normal 135-145 [facility] Comment on above: Performed By: #### 2 368519, 89665806, 69272338, 9676993 ####[facility] [address] [place] [address] Urea nitrogen [Mass/Vol] 21 mg/dL Normal 5-21 [facility] Comment on above: Performed By: #### 2 158235, 87534238, 53946804, 1130244 ####[facility] [address] [place] [address] Urea nitrogen/Creatinine [Mass ratio] 26 No Units High 10-20 [facility] Comment on above: Performed By: #### 2 917183, 74673206, 65302492, 2874385 ####[address] [address] CBC w/ Auto Diffon 4 Basophils/100 WBC (Bld) 0.5 % Normal 0.0-2.0 [facility] Comment on above: Performed By: #### 2 831636, 45360092, 36958036, 1293486 ####[place] 8347757 Basophils/Leukocytes Auto (Bld) [Pure # fraction] 0.1 E9/L Normal 0.0-0.2 [facility] Comment on above: Performed By: #### 2 565892, 19937194, 20364156, 3467448 ####[address] [address] Eosinophils (Bld) [#/Vol] 0.2 E9/L Normal 0.0-0.5 [facility] Comment on above: Performed By: #### 2 818547, 08020216, 68050506, 6418171 ####[address] [address] Eosinophils/100 WBC (Bld) 1.6 % Normal 0.0-8.0 [facility] Comment on above: Performed By: #### 2 188826, 32945583, 20354940, 6235994 ####[address] [address] Erythrocyte distribution width (RBC) [Ratio] 14.2 % Normal 10.9-14.2 [facility] Comment on above: Performed By: #### 2 432571, 31076370, 82928942, 1121847 ####[place] 8[address]757 Hematocrit (Bld) [Volume fraction] 34.4 % Low 37.7-49.0 [facility] Comment on above: Performed By: #### 2 998565, 77907998, 33362018, 5318117 ####[facility] [address] [place] [address] Hemoglobin (Bld) [Mass/Vol] 11.3 g/dL Low 13.5-17.5 [facility] Comment on above: Performed By: #### 2 775993, 18711814, 04985280, 6049905 ####[address] [address] Lymphocytes (Bld) [#/Vol] 3.1 E9/L Normal 1.0-4.0 [facility] Comment on above: Performed By: #### 2 953160, 60079783, 00329300, 2272431 ####[address] [address] Lymphocytes/100 WBC (Bld) 26.5 % Normal 14.0-50.0 [facility] Comment on above: Performed By: #### 2 052962, 88200618, 89306201, 9293000 ####[facility] [address] [place] [address] MCH (RBC) [Entitic mass] 26.3 pg Low 27.0-34.0 [facility] Comment on above: Performed By: #### 2 604839, 66769909, 21038235, 6369104 ####[facility] [address] [place] [address] MCHC (RBC) [Mass/Vol] 32.9 g/dL Normal 31.4-36.0 [facility] Comment on above: Performed By: #### 2 269838, 89213377, 39598848, 0238875 ####[address] [address] MCV (RBC) [Entitic vol] 80.1 fL Normal 80.0-100.0 F [facility] Comment on above: Performed By: #### 2 597908, 47786869, 84134664, 1589483 ####[address] [address] Monocytes (Bld) [#/Vol] 0.8 E9/L Normal 0.2-1.0 [facility] Comment on above: Performed By: #### 2 392984, 79153111, 81379097, 9158519 ####[address] [address] Neutrophils (Bld) [#/Vol] 7.7 E9/L High 2.0-7.5 [facility] Comment on above: Performed By: #### 2 386259, 97842418, 47806032, 9039341 ####[address] [address] Neutrophils/100 WBC (Bld) 64.5 % Normal 36.0-75.0 [facility] Comment on above: Performed By: #### 2 822023, 71827853, 45648108, 1262213 ####[address] [address] Platelet mean volume (Bld) [Entitic vol] 7.2 fL Normal 6.4-10.8 [facility] Comment on above: Performed By: #### 2 785555, 94275227, 60773405, 6970239 ####[address] [address] Platelets (Bld) [#/Vol] 240.0 E9/L Normal 150. 0-500. 0 [facility] Comment on above: Performed By: #### 2 829938, 09025059, 53586131, 3568601 ####[address] [address] RBC (Bld) [#/Vol] 4.3 E12/L Normal 4.3-5.9 [facility] Comment on above: Performed By: #### 2 797257, 95152274, 92783651, 8645466 ####[facility] [address] [place] [address] WBC corrected for nucl RBC Auto (Bld) [#/Vol] 11.9 E9/L High 4.0-11.0 [facility] Comment on above: Performed By: #### 2 146239, 37045654, 05522151, 9168894 ####[facility] [address] [place] [address] Consultation Noteon 09-23-19 Consultation Note Patient: MANPREET [...] day(s), # 135 tab(s), Refills(s) 1, Pharmacy: [facility]/pharmacy #[id number], 183, cm, 07/31/23 10:16:00 EST, Height/Length [...] and Plan EGD: Diagnosis: Esophageal foreign body (KQZ32-FT T18.108A, Discharge, Medical). Course: Progressing as expected. Education and Follow-up: Counseled. Notes: Obtain H. pylori stool antigen Start PPI once daily Repeat EGD after 3 months to obtain esophageal and stomach biopsies. Normal [facility] Comment on above: Result Comment: erro r Electronically Signed By: Hui Costa MD\.br\Date and Time Signed: 09/23/23 09:09 JAIME White 09-23-2023 Esophagogastroduodenosc opy Patient: BARRY GALDAMEZ Age: 68 years Sex: Male : 1955 Associated Diagnoses: None Author: Hui Costa MD History of Present Illness Gastroenterology Consult 47-yxlx-puc-year-old male with past medical history of coronary disease on Plavix Admitted with food bolus impaction Was eating chicken and ate through the pollen around 3 PM yesterday Presented to [facility] and evaluated with CAT scan which showed [...] day(s), # 135 tab(s), Refills(s) 1, Pharmacy: [facility]/pharmacy #[id number], 183, cm, 07/31/23 10:16:00 EST, Height/Length [...] Mother Arthritis Mother Procedure history: Esophagogastroduodenosco py (464890176) on 09/23/2023 at 68 Years. Left L4/5 Transforaminal Epidural Steroid Injections (8589266791) on 06/25/2023 at 67 Years. Comments: 07/31/2023 10:10 Brianna Echeverria 10% relief L5/S1 TASHA (5036356391) on 05/19/2023 at 67 Years. Comments: 06/05/2023 11:07 JAIME Page RN, Theodora L5/S1 TASHA 70% relief L5-S1 TASHA (3891987594) on 12/10/2022 at 67 Years. Comments: 01/09/2023 13:14 JAMA Troy RN, Adry Aguirre L5-S1 TASHA-100% relief Arthroscopy of shoulder (030524422) on 04/13/2018 at 62 Years. Comments: 04/13/2018 14:52 Marti Trinidad RN right .distal claviculectomy .extensive debridement ,subacromial decompression. Carpal tunnel release (851156639) on 04/13/2018 at 62 Years. Comments: 04/13/2018 14:52 Marti Trinidad RN right Hip arthroplasty (246975177) on 09/29/2017 at 62 Years. Comments: 09/29/2017 14:17 Imelda Palencia RN left Left hip arthrogram on 12/03/2016 at 61 Years. Appendectomy; (81797). Colonoscopy (738842220). Tooth extraction, complete mouth (73199423). Stent (048415470). Comments: 09/04/2022 14:42 JAIME Mendieta RN, Jennifer Eckert cardiac Social History Social & Psychosocia (more content not included)... Normal [facility] Esophagogastroduodenosc opy Patient: BARRY GALDAMEZ Age: 68 [...] day(s), # 135 tab(s), Refills(s) 1, Pharmacy: [facility]/pharmacy #[id number], 183, cm, 07/31/23 10:16:00 EST, Height/Length [...] and Plan EGD: Diagnosis: Esophageal foreign body (QML90-OW T18.108A, Discharge, Medical). Course: Progressing as expected. [...] September 23, 2023 9:09 EST Encounter info: [id number], Treviño - Og, Observation, 09/22/2023 - Normal [facility] Comment on above: Result Comment: erro r [...] day(s), # 135 tab(s), Refills(s) 1, Pharmacy: [facility]/pharmacy #[id number], 183, cm, 07/31/23 10:16:00 EST, Height/Length [...] and Plan EGD: Diagnosis: Esophageal foreign body (WXT39-KS T18.108A, Discharge, Medical). Course: Progressing as expected. Education and Follow-up: Counseled. Notes: Obtain H. pylori stool antigen Start PPI once daily Repeat EGD after 3 months to obtain esophageal and stomach biopsies. Normal [facility] Inpatient Clinical Summaryon 09-23-2023 Inpatient Clinical Summary [place] [id number] Clinical Summary Person Information: Name: BARRY GALDAMEZ Age: 68 Years : 1955 Sex: Male PCP: JOE MADDOX DO Marital Status: Phone: [phone] Race: White Ethnicity: Non- or Language: Upper Sorbian Visit Id: Visit Reason: ESOPHAGEAL FOOD BOLUS Speciality: Acuity: Enc Type: Observation Med Service: Medical Arrival: 09/22/2023 20:07:00 Discharge: Dispo Type: Address: [facility] 07/21 [facility] [id number] Provider Notes: Diagnosis: 1:Esophageal foreign body; 2:Coronary [...] up: With: Address: When: JOE MADDOX DO [address] [address] 09/29/2023 3:30 PM With: Address: When: Igor FARFAN, Hui Pineda [facility], [address], [address] [place] [phone] 11/30/2023 9:00 AM Comments: Will need EGD in 3 months, Plavix must be held prior to endoscopy x 5 [address] Biswas at this appoinment. Type Location Start Finish State Pain Management - Follow Up (FT) FTPain [facility] 10/01/2023 2:15 PM 10/01/2023 2:25 PM Confirmed [facility] New Patient [facility] 11/30/2023 9:00 AM 11/30/2023 9:30 AM Confirmed Patient Education Information: Hiatal Hernia; Duodenitis; Upper Endoscopy, Adult, Care After; Swallowed Foreign Body, Adult Protonix Normal [facility] Inpatient Patient Summaryon 09-23-2023 Inpatient Patient Summary [address] [address] Patient Discharge Instructions PERSON INFORMATION Name: BARRY GALDAMEZ Date of : 1955 Current Date: 09/23/2023 14:08:46 PHYSICIANS Admitting Physician: Erwin AVLADEZ DO Primary Care Physician: JOE MADDOX DO [...] Sample Follow up: With: Address: When: JOE MADDOX DO [address] [place] [id number] 09/29/2023 3:30 PM With: Address: When: Igor FARFAN, JEFF Contreras, [address], [address] [place] [phone] 11/30/2023 9:00 AM Comments: Will need EGD [...] Management - Follow Up (FT) FT.Pain Mgmt [place] 10/01/2023 2:15 PM 10/01/2023 2:25 PM Confirmed BADAnne New Patient [facility] 11/30/2023 9:00 AM 11/30/2023 9:30 AM Confirmed Comment: DENICE Pimentel WAYNE M, have received the attached patient education materials/instructions and have verbalized understanding: Patient Signature Date Clinican/Nurse Signature Date HERE ARE THE MEDICATION CHANGES THAT OCCURRED DURING YOUR HOSPITAL STAY New Medications [id number], [address], [place] [id number], [phone] pantoprazole (Protonix 40 mg Tab-DR) 1 Tablets [...] every 12 emily (more content not included)... [facility] Insurance Correspondenceon 0 09-23-2023 Insurance Correspondence [id number]#1.00TIF F [facility] Insurance Correspondence Off iceon 09-23-2023 Insurance Correspondence Office [id number]#1.00TI FF [facility] Interdisciplinary Note - Huey e Manageron 09-23-2023 Interdisciplinary Note - Milling Planer Operator Pt is awake and alert in bed, previously rounded with Ariana. Pt is aware of plan to DC home later today. Pt is from home with and she will transport at DC. Observation status reviewed, PCP verified and insurance information reviewed will transport at DC, decline any concerns or DC needs. Plan to DC home today. [facility] Comment on above: Result Comment: Elec tronically Signed By: Cherelle TREVIZO, Callie\.deborah\Date and Time Signed: 09/23/23 10:51 EST Main OR PACU I Recordon Main OR PACU I Record PACU Phase I Docum ent Type FT Summary Primary Physician: Igor FARFAN, Hui Pineda Finalized Date/Time: 09/23/23 10:12:11 Pt. Name: BARRY GALDAMEZ/Sex: 1955 Male Med Rec #: [id number] Physician: Erwin VALADEZ DO Financial #: [id number] Pt. Type: O Room/Bed: N318 Admit/Disch: 09/22/23 20:07:00 - Institution: Case Times [...] By: Niharika Solorzano RN 09/23/23 10:12 Normal [facility] Main OR Preoperative Recordo n 09-23-2023 Main OR Preoperative Record Holding Area Document Type FT Summary Primary Physician: Hui Costa MD Finalized Date/Time: 09/23/23 08:39:45 Pt. Name: BARRY GALDAMEZ Tomeka GauthierB./Sex: 1955 Male Med Rec #: [id number] Physician: Erwin VALADEZ DO Financial #: [id number] Pt. Type: O Room/Bed: [facility]/ Admit/Disch: 09/22/23 20:07:00 - Institution: Case Times [...] Signed By: Mirta Gutiérrez RN 09/23/23 08:39 [facility] Message from Medicareon Message from Medicare [id number]#1.00TIF F [facility] Monitor Recordon 09-23-2023 Monitor Record [id number]#1.00TI FF [facility] Monitor Record [id number]#1.00TI FF Cecilia Treviño [facility] Patient Education - Texton 0 09-23-2023 Patient [...] after the procedure. General instructions ? Take fgcf-ark-voslovr and prescription medicines only as told by [...] the symptoms (more content not included)... Normal [facility] TSH With T4fr Reflexon 09-22 TSH Qn 3.13 m[IU]/L Normal 0.34-5.60 [facility] Comment on above: Performed By: #### 2 [id number], [id number] ####[facility] [address] [place] [address] eGFRon 09-23-2023 eGFR 96 mL/min/1.73 m2 Normal >=59 [facility] Comment on above: Order Comment: Order added by Discern Expert. Performed By: #### 2 [id number], [id number] ####[facility] [address] [place] [address] Outside Recordson 08-03-2023 Outside Records [id number]#1.00OTG TIFF [facility] Consent for Treatmenton 07-20 Consent for Treatment [id number]#1.00TI FF Normal [facility] Consultation Noteon 07-31-19 Consultation Note Patient: MANPREET GALDAMEZ Age: 67 [...] day(s), # 135 tab(s), Refills(s) 1, Pharmacy: [id number], 183, cm, 07/31/23 10:16:00 EST, Height/Length [...] All Problems HTN (hypertension) / SNOMED CT 2607651157 / Confirmed Hip pain, left / SNOMED CT 3814553174 / Confirmed DJD Nocturia / SNOMED CT 211596876 / Confirmed Asthma / SNOMED CT 446005956 / Confirmed Impingement syndrome of right shoulder / SNOMED CT 016628293 / Confirmed Carpal tunnel syndrome of right wrist / SNOMED CT 40437137 / Confirmed Osteoarthritis / SNOMED CT 3289058391 / Confirmed Arthritis / SNOMED CT 8867102 / Confirmed Depression / SNOMED CT 32433749 / Confirmed Hypertension / SNOMED CT 3124850065 / Confirmed Erectile dysfunction / SNOMED CT 6266039024 / Confirmed Asymptomatic microscopic hematuria / SNOMED CT 7593696976 / Confirmed Weak urine stream / SNOMED CT 561738041 / Confirmed Screening PSA (prostate specific antigen) / SNOMED CT 787281719 / Confirmed Resolved: At risk for falls / SNOMED CT 016691303 Problem added when Risk for Falls Careplan [...] hip flexion 5 -/5 Integumentary: Warm, Dry, Pease. Injection site well-healed Neurologic: Alert, Oriented. Psychiatric: [...] we discussed gabapen (more content not included)... [facility] Comment on above: Result Comment: Elec tronically Signed By: Romel ARCE, Ariana\.br\Date and Time Signed: 07/31/23 10:27 EST Legal Correspondence Officeo n 07-31-2023 Legal Correspondence Office [id number]#1.00TIF F [facility] Office/Clinic Note-Physician on 07-31-2023 Office/Clinic Note-Physician [id number]#1.00TIF F [facility] Patient Correspondenceon Patient Correspondence [id number]#1.00TIF F [facility] Patient Correspondence [id number]#1.00TIF F [facility] Patient Correspondence [id number]#1.00TIF F [facility] Patient Correspondence [id number]#1.00TIF F [facility] Patient History Officeon Patient History Office [id number]#1.00TIF F [facility] Reminder Messageson 07-31-19 24 Reminder Messages - From: JOE MADDOX DO To: [facility] Clinical Pool ([facility]); Sent: 07/27/2023 12:31:28 EST ! Show up: 07/27/2023 12:31:28 EST Subject: Results Follow Up Actions: Call the patient with result(s) Due Date/Time: 07/28/2023 12:30:00 EST Reminder Comments: looks okay. no abnormal rhythms Results: Date Result Type Result Name 07/27/2023 11:35 Radiology CV Holter Monitor 48 Hour From: Katelin Shultz ([facility] Clinical Pool ([facility] To: JOE MADDOX DO; Sent: 07/27/2023 16:46:59 EST Show up: 07/27/2023 16:46:00 EST Subject: RE: Results Follow Up Notified patient of results. Patient states he had another episode yesterday afternoon, his BP dropped to 98/61 while he was sitting. Patient states he had not had an episode prior to this one for 2 weeks. Please advise, thank you From: JOE MADDOX DO To: [facility] Clinical [place] ([facility]); Sent: 07/28/2023 07:42:25 EST Show up: 07/28/2023 07:42:00 EST Subject: RE: Results Follow Up time for a cardiology referral LVM notifying patient, referral made Normal [facility] Coding Summaryon 07-28-2023 Coding Summary HTMLBase 64 TgxmkxppCFx9zSy+PGhlYWQ+ IH4SJMYeW02xzDKqbW8mJ9CP TElOSywgQVBQTElOSyIgbmFt QT2cgIScZHAw IC8+DB4lYHYyKqvqoJVik0A7 tSA3X91fcu1aRFcguCW4XQUj JiWpcuivd2byxAs2EMpnTxbj OyBt YNGrzK48XXE0dN26By22bEAa kJOjl7qifBc9BmTmRSCxKJB0 zXzcRXclg4HaRNHoN99peZIc c2U6 GPMjtBoroKDwJhWdiNM4dG6s ACfnwvoql6wdnkduZdu6gd11 oRLol1H6gKH8V5HsmiM7RKYc bGQg DkrfbVFPaW8qxjrco0puyaps TjRpOHJpLSh5BLi1LBQyfDmr NsJgOX43XJL4AKFrqwGaI3Bo LWFs qRidAnL0n6K1Ds0DF2VKNwgf L0RISSRFPQznuBZ+FU31ir12 Z9CbPmzyUxj1TYMeINH8vXS8 aD0n WIYqDBuek3G7uDT2L0NqbtOz gp7br0bbVLLsSBobO39heHZc i3B8FTPayML1JHBgiBpkVrKl aG93 Oyc+SRFsuIfbg6LyAdbwr2xv y2nybBb5BtirBZCvirYxkNta TPI0s9AlZc1tOEDafRH7jAJ6 aD0i WiSkYcN0NVutO624DtPqbLKq SdcxX71cA6RveZH+PHRyPjx0 WXIeyFpwMS8nB9FjSUMwegaf bGVm wAmzJK3dVEBcdsfxHJRweI8s BICfF2n6FsOiHuH8EMlaM8Jj XCIyycjeYa13mQ5bOmVuOnL0 MGlu A4JwnwW4JQZlmOKcNNkwVOO2 D29px4C9NXBpNPYaNNM4xFF1 sV2hnGrvsvokiMQbhRkshsPg dGlj NBupZVboC992MVDsnZigQrSn ZGluZyBEYXRlOiAgMDEvMDkv MjAyNDwvdGQ+PWNsWVY3lFdt PSAn eHFvGClsGm5czYsxkZivWR6q PPVhxpnlDLZcyC5kNJLajITz hQebPF8nDBGzgmwhc732MwJc MHB0 HCXobSXiO2DlpN7vTcNdJNEr OTAsS0SwfEAaGTzgB360WOgv DkT7PNRnvyIuG1TtNWOrgPms OiB0 l0U7Kc0Qi0TufpekU9RlqMAg CzGhOfpiMOx5M4InChlefKY+ MM86CMEjNQ47ZJp1MPU6aRoi PSdi OEPuK0XxwP2pNdBtINZlSWQz Oyc+PHRhYmxlIHdpZHRoPScx IBSyHzFoqMezSF2xJo4eFBWv LWNv jSgtrJIqWtYaz8jjUFPaUWxu VK1srRwkC6PdpBX1DEPuz3i0 Pd50K27rS7FkpEC+PGNvbCB3 aWR0 iZ4rJaWxRyX0IKhaJ087QxOk pCOxJtxiw3bpo2dzbVh8IzV3 XUTperWbbSrlLHI3c5TdOg83 Y29s IHdpZHRoPSIxNSUiIHZhbGln dx6ozF2sKf8+DXKsgVQ2gCR0 nP6dBuXpGvW8XTjdG861SkAe cCIv Ybuaj1woz1pihVg7FhWwQGIe nzAjcEfqXNW4t5RgEw11R3Gg fVbtp4JwLao2gz30mAMgi6G8 bGU9 N6NeMQYhfknogZMpgUtmHS5a BPVlreogILUpyM5uQSLsW9q3 VkEcWaT2YFelZ0UucdW8UQIq bGQg EYOpeAJYoP1rdietk0zttwzn PqUaLNZrDCr9SDk3CNDoaNtq BfYzPQL5WvC9LML2hCPnhN6o bGln gcmuvI3fGcu+IEV2cUAakHOP PW0zMwcjzID+JYMuYBE0jIni DYsxYMLssG9bKKBvW5i2DnUh LjA1 BYrhK1QtuiB5ETRtlZKpFBOq uELFqM8evlqar1frtrggUaLr KPKmGLa6FNy0LSVizSqbXrVy ZWZ0 NbR0XTZ0nHUqlB0qlQhtxleh gF6pHab+LcrpfOwtWPN3PGg3 F4BoTch9JZPraXfmPM4sgRVz ZGlu Ql6dsBqtgDrrUQ9jDSKstwet v442FjUix9nzDWHreJGgUIja GFZ7C72ki2C6JBSwCQRpTWZ7 dGV4 cT7irGtzyiuljLRdaSqeuwJa zDapTQndPYwsU120PWCllHwv PgJzWIw3C6OcBiy3EVYhnXcg ZT0n vMBmPGibUt1iwGdeaRtlND2x XJMfodoso124CeRft4weAFEc lGAlETrnJLB0S78ki7K3WGLs MDAw TNY8pZP5nY5esCqmmccuvSOe fKwyijAtzIdmBNgdIGkiB615 HGUspRugQwHiaCm0G7LvYsc5 ZCBz eFpyWM4vdGUkCTaxAg1izTyo tSopCT7fNHBpizgtl326LrNa a7dxMXAqzHOrWYusYMR2D27c b3I6 SKYbVUHzOVY4mWG4dH1riTdk bjogbGVmdDsgdmVydGljYWwt KPkbK033YJSjjEgaZmGqyGoj bnQg FNtlUYs7R0VzSyrecGE+PC90 YNMmWG44dLQkdAGio9abyHs2 YuPcXYXoRCX8wHdiKPlwy4Us ZXIt W42knIUyk4U1HARwyJeifNOx LqUjaAS6zA6mEInlevzrl6jz cnfrEqezf2idyi49vR82M29y IHdp UNBrVYAbCZIrAENyiOlhga6i jE7lLx9+TWFpzPB0cFM0jH8c NDFmUfJ8HLfiG610TfSxdKNq Pjxj c3ssq4vnlXm7UxH4XJGtvxQb dJntJWZ4l9RaKy64G83vEEhe KTWsAVUwLGFgDFAxyVaehr6x dG9w Ii8+HNZvaVD6uPB5mN2dSjXx KiZ0CVueZ212FbTnzLKxHjaq A83kF7ZewJA+QKYqHdo6THGj dHls CR1xfZZqHPbcDq6aMET1WpQe TdGuQQjhX8NtWONpautzykjd eMH3TIGvPUYcuX58Qm3zaLvi MTBw aAQHmF5asdcqe6xcsegoNvRg TFVcWAs9FUk5SKEqiBuxVvCl HZZ6YcY3THS5uTHbbE6gyPok bjog dU7yX7VhFFNsyfwbCp08pZ7u VnCnRxL6YOvdLia+I5OBIfDB BAHUZBvIBSLBMQ11RE65uRLg c3R5 dOM2W4WwYKDfjdenmnfjrFE4 FLJsUNLbtI57wHVkTJrhOf8z a0X9f658ZQBqTUWluM89Tf6k dDog KMOitBMUsD9srlrgz5jquauq SsNdQDUqSGp1DJw2SRBrjBdd ZaJaGYQ2SzA9UBB9eSNvcG0i bGln gbgasW2eRpj+MDEvMzEvMTk1 NjwvdGQ+WUHjMXO6kClkPMfo YKNxsD9cXHYqC1m0XlYeMfM4 MGlu B0GcDPKnihwdMv60zE1oNwBi AmT8YTfpR9UkkhW6ANNtdNFg COztNWX6C74zh0E4XWKpBDGh MDA7 zIB6sL0htRyihcrziZXlgJsy mbIfcVayKHdiEMftN885YJRx xLgqFgJ5OLzjAHBiOQ39NS66 dGQg b2Q5bLW4D5OdAHReoiwelpnc tRZ2OSFpHRSiiS64sVRdTVth Ox6wm7C7d836MDLhFYOypP12 Zm9u sJjsTBEfvFQQnC3bwyshx3my pfypJhTjCWNvIMa7DSx5IGLp dZddHkNrLTV7GtS6DKU3nNPs bC1h wGrbizcbgF4fOfk+TUFMRTwv dGQ+IQFvKUY1jAljKQilHEPe hX5nYAFaT2e7DoUcEtU7BGdo O3Bh HNDxgrnzXc34lT4lWxAdPzE7 RWmiK1RaqaO3BPFfuMYlUBat SHW9B81nz4B1ZZMkURTcXEW7 dGV4 bM6rkPaqpuyyxJKdyLgvvfWk hMakLWltXEozA137HPHmcFhp Wu89bXJjkUwfgcUieL4yICIO ZWQ8 M2AdLrmknXO+EA34TQJtOU92 tRQilXWdt8tadYn6PiLfBAZy DZD6rBwzVGlfs6LgKZJoU02u bGFw u2E1OBJcqTkafATmTgLttEB9 eZ5zPSoqdvgbs5qcrwywOxmk b5avcs76zU31A03tCOrkZBOt PSIz FIZcTILusWuafu9ihG6dAy1+ ZBUgbJA4uFO9eX1zNxVjSnN1 GJvaW194DbCksGLeZjagg5pv d2lk qXr6MnUnTBXhjjZgiYgzESU8 y3RsRw99A69pQIluZLRjEGPo OMHzZDDeyLncfd0opX6eVx1+ PC9j f4wrba11xZ52oBP+PHRkIHN0 hTfpIZlaBAOwaV7nVSnwSwP1 LZViQdVmnQ52cPNkRGfzGo3k aWdo dFtiXC4xKKHjscfkq496NwQq s6gnHRXsvCTlVIebXCS5E81p y4F7PZGdUDKsVSY6cSJ2dF1x bGln bjogbGVmdDsgdmVydGljYWwt EDqnH930JUVteWitRkBucABp N0xabxVIGD3rEglqbEL+PHRk IHN0 dKzwCNyvXKNcdI3dQWEwN6l5 SjXgKqD7DYgpX6XvxlE7GJVb eURgGAFaqSJNiY0kzeyrs9sz cjog BgVwXZDwDPl2QUo8NCFgpFne VdDsLUP8WqI1SMC9jPNycQ6d xGtllfezuJ9bUgs+RklOOjwv dGQ+ VCVbTMN2oQbcFTpeSJLckF8v CENpI8z1FzKbJdD6HZtmC6Lp plU9ZTHqjUKoYWOvbLTDdM6s cztj f9jxvgeeTzXnNMOoMGk4FRe9 XUGfaYvfZtYjQJV3EiE9ENX2 tULrnN5hmRmqtzkwtF3kMkl+ TVJO OjwvdGQ+BUBgETM2hWjeQWza KVIrgX5zHXTaQ1t5OmBvHaN5 VJreK9ElfdS1IJExtPVmAGSm dCBU fP4zmpyut5nlkdjgTiJxIILz NNi9LVq8SHNhtLgoEeMyVUF2 NpM9NMX3uMPnaK1ewLjpsdpa dG9w Oyc+DBA0XCR4ES58QF68H3Va PjwvdGFibGU+PHRhYmxlIHdp PGTiCRqpXNKpIaRdgCvrZE9u Ym9y ZGV (more content not included)... Normal [facility] Holter Monitoron 07-28-2023 Holter Monitor [id number]#1.00OTG TIFF Normal [facility] CV Holter Monitor 48 Houron 07-21-2023 CV [...] patient's symptoms. Timothy Burnett DO JOB #: [id number] bk Final Dictated by: Timothy Burnett DO Dictated DT/TM: 07/27/23 9:22 Signed (Electronic Signature): Timothy Burnett DO 07/27/23 11:35 a Technologist: [facility] Outside Recordson 06-29-2023 Outside Records [id number]#1.00O TGTIFF [facility] Consent for Procedure/Surger yon 06-25-2023 Consent for Procedure/Surgery [id number]#1.00TIF F [facility] Consent for Treatmenton Consent for Treatment [id number]#1.00TI FF [facility] Discharge Instructionson Discharge Instructions [id number]#1.00TIF F [facility] IntraOperative Documentson 1 08-26-2022 IntraOperative Documents [id number]#1.00TIF F [facility] Main OR Intraoperative Recor don 06-25-2023 Main OR Intraoperative Record IntraOp Document Type FT Summary Primary Physician: Neymar Willingham MD Finalized Date/Time: 06/25/23 13:41:33 Pt. Name: DENICE BARRY Eckert D.O.B./Sex: 1955 Male Med Rec #: [id number] Physician: Neymar Willingham MD Financial #: [id number] Pt. Type: P Room/Bed: / Admit/Disch: 06/25/23 [...] RN, Nancy Role Performed Surgeon - Primary Crystal Mounter - Primary Scrub - Primary Time In 06/25/23 13:37:00 06/25/23 13:37:00 06/25/23 13:37:00 Time Out 06/25/23 13:42:00 06/25/23 13:42:00 06/25/23 13:42:00 Procedure TRANSFORAMINAL EPIDURAL TRANSFORAMINAL EPIDURAL TRANSFORAMINAL EPIDURAL STEROID INJECTIO(Left) STEROID INJECTIO(Left) STEROID INJECTIO(Left) Comments Last Modified By: Woodrow TREVIZO, Adry Troy RN, Adry Lawrence RN 06/25/23 13:41:29 06/25/23 13:41:29 06/25/23 13:41:29 Entry 4 Case Attendee Kimmy Chaney Role Performed Boat Outfitter Time In 06/25/23 13:37:00 Time Out 06/25/23 [...] Outcomes Met? Yes Last Modified By: Adry rToy RN 06/25/23 13:38:13 Post-Care Text: The patient is free from signs and symptoms of infection Skin Assessment (Pre Procedure) FTPM Pre-Care Text: Implements protective measures to prevent skin/ tissue injury due to thermal or mechanical sources Evaluates for signs and symptoms of physical injury to skin and tissue Entry 1 Skin Integrity Intact, Pease, Warm, and Skin Abnormality No Dry Outcomes [...] Points Checked Yes By Woodrow TREVIZO, Adry Brown Al (more content not included)... Normal [facility] Main OR Preoperative Recordo n 06-25-2023 Main OR Preoperative Record Holding Area Document Type FTPM Summary Primary Physician: Neymar Willingham MD Finalized Date/Time: 06/25/23 13:18:07 Pt. Name: BARRY GALDAMEZ Tomeka /Sex: 1955 Male Med Rec #: [id number] Physician: Neymar Willingham MD Financial #: [id number] Pt. Type: P Room/Bed: / Admit/Disch: 06/25/23 [...] 13:18 Jennifer Mendieta RN 06/25/23 13:18 Normal [facility] Operative Reporton Operative Report Patient: MANPREET GALDAMEZ Age: 67 [...] 13:09 EST Respiratory Rate 14 br/min . [facility] Comment on above: Result Comment: Elec tronically Signed By: Tarsha FARFAN, Neymar Zelaya\.br\Date and Time Signed: 06/25/23 13:41 EST Patient Correspondenceon Patient Correspondence [id number]#1.00TIF F [facility] Insurance Correspondence Off iceon 06-10-2023 Insurance Correspondence Office [id number]#1.00TIF F [facility] Office/Clinic Note-Physician on 06-08-2023 Office/Clinic Note-Physician [id number]#1.00TI FF [facility] Consent for Treatmenton 05-20 Consent for Treatment [id number]#1.00TI FF [facility] Consultation Noteon 06-05-20 Consultation Note Patient: [...] All Problems HTN (hypertension) / SNOMED CT 7338134003 / Confirmed Hip pain, left / SNOMED CT 9447508231 / Confirmed DJD Nocturia / SNOMED CT 556719733 / Confirmed Asthma / SNOMED CT 836022643 / Confirmed Impingement syndrome of right shoulder / SNOMED CT 476741626 / Confirmed Carpal tunnel syndrome of right wrist / SNOMED CT 64633647 / Confirmed Osteoarthritis / SNOMED CT 3012696551 / Confirmed Arthritis / SNOMED CT 4433987 / Confirmed Depression / SNOMED CT 52542369 / Confirmed Hypertension / SNOMED CT 9390445133 / Confirmed Erectile dysfunction / SNOMED CT 9627387989 / Confirmed Asymptomatic microscopic hematuria / SNOMED CT 7392341948 / Confirmed Weak urine stream / SNOMED CT 419754191 / Confirmed Screening PSA (prostate specific antigen) / SNOMED CT 928852471 / Confirmed Resolved: At risk for falls / SNOMED CT 390391964 Problem added when Risk for Falls Careplan [...] hip flexion 5 -/5 Integumentary: Warm, Dry, Pease. Injection site well-healed Neurologic: Alert, Oriented. Psychiatric: [...] necessary. OARRS reviewed ANABELL score: 38% Normal [facility] Comment on above: Result Comment: Elec tronically Signed By: Ariana Urena PA-C\.br\Date and Time Signed: 06/05/23 11:22 EST\.br\Electronically Co-Signed By: Neymar Willingham MD\.br\Date and Time Co-Signed: 06/08/23 12:01 EST Office/Clinic Note-Physician on 06-05-2023 Office/Clinic Note-Physician [id number]#1.00TIFF Normal [facility] Patient Correspondenceon Patient Correspondence [id number]#1.00TIFF Normal [facility] Patient Correspondence [id number]#1.00TIFF [facility] Patient History Officeon Patient History Office [id number]#1.00TIFF [facility] Patient Handouton 05-27-2023 Patient Handout [id number]#1.00OT [facility] Outside Recordson 05-26-2023 Outside Records [id number]#1.00OT [facility] Patient Handouton 05-26-2023 Patient Handout [id number]#1.00OT [facility] Consent for Procedure/Surger yon 05-19-2023 Consent for Procedure/Surgery [id number]#1.00TI [facility] Consent for Treatmenton 04-21 Consent for Treatment [id number]#1.00TI FF [facility] Discharge Instructionson Discharge Instructions [id number]#1.00TI FF [facility] IntraOperative Documentson 1 IntraOperative Documents [id number]#1.00TI FF [facility] Main OR Intraoperative Recor don 05-19-2023 Main OR Intraoperative Record IntraOp Document Type FTPM Summary Primary Physician: Neymar Willingham MD Finalized Date/Time: 05/19/23 14:15:08 Pt. Name: BARRY GALDAMEZ Tomeka Bryant/Sex: 1955 Male Med Rec #: [id number] Physician: Neymar Willingham MD Financial #: [id number] Pt. Type: P Room/Bed: / Admit/Disch: 05/19/23 [...] Iwona Snyder Role Performed Surgeon - Primary Crystal Mounter - Primary Scrub - Primary Time In 05/19/23 14:09:00 05/19/23 14:09:00 05/19/23 14:09:00 Time Out 05/19/23 14:15:00 05/19/23 14:15:00 05/19/23 14:15:00 Procedure LUMBAR EPIDURAL STEROID LUMBAR EPIDURAL STEROID LUMBAR EPIDURAL STEROID INJECTION(.) INJECTION(.) INJECTION(.) Comments Last Modified By: Woodrow TREVIZO, Adry Troy RN, Adry Lawrence RN 05/19/23 14:14:30 05/19/23 14:14:30 05/19/23 14:14:30 Entry 4 Case Attendee Nakul Motnes Role Performed Boat Outfitter Time In 05/19/23 14:09:00 Time Out 05/19/23 [...] L5-S1 TASHA Primary Procedure Yes Primary Surgeon Tarsha FARFAN, Neymar Zelaya Start 05/19/23 14:12:00 Stop 05/19/23 14:14:00 Anesthesia [...] and tissue Entry 1 Skin Integrity Intact, Pease, Warm, and Skin Abnormality No Dry Outcomes [...] Troy RN (more content not included)... [facility] Main OR Preoperative Recordo n 05-19-2023 Main OR Preoperative Record Holding Area Document Type FTPM Summary Primary Physician: Neymar Willingham MD Finalized Date/Time: 05/19/23 13:52:06 Pt. Name: BARRY GALDAMEZ/Sex: 1955 Male Med Rec #: [id number] Physician: Neymar Willingham MD Financial #: [id number] Pt. Type: P Room/Bed: / Admit/Disch: 05/19/23 [...] Pain: Yes Comment: and glasses. Pain Comment: 5/10 lower back pain Operative Site Yes Marking: [...] By: Jennifer Mendieta RN 05/19/23 13:52 [facility] Operative Reporton 3 Operative Report Patient: MANPREET [...] 13:40 EDT Respiratory Rate 14 br/min . [facility] Comment on above: Result Comment: Elec tronically Signed By: Tarsha FARFAN, Neymar Zelaya\.br\Date and Time Signed: 05/19/23 14:14 EDT Patient Correspondenceon Patient Correspondence [id number]#1.00CD: 127 [facility] Insurance Correspondence Off iceon 04-13-2023 Insurance Correspondence Office [id number]#1.00CD: 127 [facility] Consent for Treatmenton 03-21 Consent for Treatment [id number]#1.00CD: 127 [facility] Consultation Noteon 04-08-20 Consultation Note Patient: [...] All Problems HTN (hypertension) / SNOMED CT 1215569021 / Confirmed Hip pain, left / SNOMED CT 9413912090 / Confirmed DJD Nocturia / SNOMED CT 314800952 / Confirmed Asthma / SNOMED CT 239841943 / Confirmed Impingement syndrome of right shoulder / SNOMED CT 769130923 / Confirmed Carpal tunnel syndrome of right wrist / SNOMED CT 06267505 / Confirmed Osteoarthritis / SNOMED CT 7012704800 / Confirmed Arthritis / SNOMED CT 9068779 / Confirmed Depression / SNOMED CT 26375449 / Confirmed Hypertension / SNOMED CT 1487177070 / Confirmed Erectile dysfunction / SNOMED CT 2664878440 / Confirmed Asymptomatic microscopic hematuria / SNOMED CT 8467285244 / Confirmed Weak urine stream / SNOMED CT 728232503 / Confirmed Screening PSA (prostate specific antigen) / SNOMED CT 108171684 / Confirmed Resolved: At risk for falls / SNOMED CT 679980248 Problem added when Risk for Falls Careplan [...] seated straight leg raise. Integumentary: Warm, Dry, Pease. Neurologic: Alert, Oriented. Psychiatric: Cooperative, Appropriate mood [...] sooner if necessary. ANABELL score: 60% [facility] Comment on above: Result Comment: Elec tronically Signed By: Ariana Urena PA-C\.br\Date and Time Signed: 04/08/23 13:30 EDT\.br\Electronically Co-Signed By: García Castro DO.br\Date and Time Co-Signed: 04/14/23 11:06 EDT Office/Clinic Note-Physician on 04-08-2023 Office/Clinic Note-Physician [id number]#1.00CD: 127 [facility] Patient Correspondenceon Patient Correspondence [id number]#1.00CD: 127 [facility] Patient Correspondence [id number]#1.00CD: 127 [facility] Patient History Officeon Patient History Office [id number]#1.00CD: 127 [facility] Office Visit (Cardiology)on 03-26-2023 Follow-up visit Diagnoses/Problems Assessed Coronary artery disease involving [place] coronary artery of [place] heart without angina pectoris (414.01) (I25.10) Hypertension, [...] Authorization; Done: 26Mar2023 Coronary artery disease involving [place] coronary artery of [place] heart without angina pectoris Start: Clopidogrel Bisulfate [...] In November 2021 he underwent non-ST elevation IL with primary revascularization of the LAD diagonal branch performed by Dr. Elieser Landers, utilizing a 2.5 x 34 mm Plainview stent to the distal LAD, 2.75 x 18 mm Paco stent in the mid LAD, and a 2.25 x 18 mm Plainview stent to the diagonal branch at the [...] Recorded: 26Mar2023 11:21AM Heart Rate64, R Radial Ksrfjdpf960, LUE, Sitting Hhbjiztrm96, LUE, Sitting Height6 ft Cvgqni854 lb BMI Lftaiwemdc45.99 kg/m2 BSA Calculated2.37 Tobacco Useb) No PHQ-2 #1. Over the last 2 weeks have you felt down, depressed or hopeless? (If yes, answer PHQ-9 below)No PHQ-2 #2. Over the last 2 weeks have you felt little intere (more content not included)... Normal [employer] Tobacco Screening.on 023 Adult depression screening assessment No [facility] [employer] 250 DO Work Phone: Fall risk assessment a) No falls within the last year [facility] [employer] [facility] 250 DO Work Phone: Tobacco use status CP b) No [facility] [employer] y 250 DO Work Phone: Consent for Treatmenton 12-19 Consent for Treatment [id number]#1.00CD: 127 Normal [facility] Consultation Noteon 01-10-20 Consultation Note Patient: MANPREET [...] All Problems HTN (hypertension) / SNOMED CT 1721550474 / Confirmed Hip pain, left / SNOMED CT 3439155041 / Confirmed DJD Nocturia / SNOMED CT 563674578 / Confirmed Asthma / SNOMED CT 764221825 / Confirmed Impingement syndrome of right shoulder / SNOMED CT 983237961 / Confirmed Carpal tunnel syndrome of right wrist / SNOMED CT 05214235 / Confirmed Osteoarthritis / SNOMED CT 2227749141 / Confirmed Arthritis / SNOMED CT 7575577 / Confirmed Depression / SNOMED CT 63953750 / Confirmed Hypertension / SNOMED CT 7925724214 / Confirmed Erectile dysfunction / SNOMED CT 4942547510 / Confirmed Asymptomatic microscopic hematuria / SNOMED CT 5183077815 / Confirmed Weak urine stream / SNOMED CT 895727211 / Confirmed Screening PSA (prostate specific antigen) / SNOMED CT 730109395 / Confirmed Resolved: At risk for falls / SNOMED CT 210372963 Problem added when Risk for Falls Careplan [...] of motion. Normal strength. Integumentary: Warm, Dry, Pease. Injection site well-healed Neurologic: Alert, Oriented. Psychiatric: [...] follow-up as needed. ANABELL score: 6% Normal [facility] Comment on above: Result Comment: Elec tronically Signed By: Ariana Urena PA-C\.br\Date and Time Signed: 01/09/23 13:29 EDT\.br\Electronically Co-Signed By: Ilya Bullock MD\.br\Date and Time Co-Signed: 01/14/23 11:33 EDT Office/Clinic Note-Physician on 01-09-2023 Office/Clinic Note-Physician [id number]#1.00C D:127 [facility] Patient Correspondenceon Patient Correspondence [id number]#1.00C D:127 [facility] Patient Correspondence [id number]#1.00C D:127 [facility] Patient History Officeon Patient History Office [id number]#1.00C D:127 [facility] Consent for Procedure/Surger yon 12-10-2022 Consent for Procedure/Surgery [id number]#1.00CD: 127 [facility] Consent for Treatmenton 11-18 Consent for Treatment [id number]#1.00CD: 127 [facility] Discharge Instructionson Discharge Instructions [id number]#1.00CD: 127 [facility] IntraOperative Documentson 0 12-10-2022 IntraOperative Documents [id number]#1.00CD: 127 [facility] Main OR Intraoperative Recor don 12-10-2022 Main OR Intraoperative Record IntraOp Document Type FTPM Summary Primary Physician: Ilya Bullock MD Finalized Date/Time: 12/10/22 14:35:07 Pt. Name: BARRY GALDAMEZ D.O.B./Sex: 1955 Male Med Rec #: [id number] Physician: Ilya Bullock MD Financial #: [id number] Pt. Type: P Room/Bed: / Admit/Disch: 12/10/22 [...] Kendra Barnes Role Performed Surgeon - Primary Crystal Mounter - Primary Scrub - Primary Time In 12/10/22 14:27:00 12/10/22 14:27:00 12/10/22 14:27:00 Time Out 12/10/22 14:35:00 12/10/22 14:35:00 12/10/22 14:35:00 Procedure LUMBAR EPIDURAL STEROID LUMBAR EPIDURAL STEROID LUMBAR EPIDURAL STEROID INJECTION(.) INJECTION(.) INJECTION(.) Comments Last Modified By: Annabelle TREVIZO, Iwona Alanis RN, Iwona Rodriguez RN 12/10/22 14:34:40 12/10/22 14:34:40 12/10/22 14:34:40 Entry 4 Case Attendee José BILLY(Siobhan)Ginny Role Performed Boat Outfitter Time In 12/10/22 14:27:00 Time Out 12/10/22 [...] Participants Iwona Alanis RN, Kenan RN, José Wagner(R), Ginny Time Out Complete 12/10/22 14:27:00 Outcomes [...] and tissue Entry 1 Skin Integrity Intact, Pease, Warm, and Skin Abnormality No Dry Outcomes Met? Yes Last Modified By: Iowna Alanis RN 12/10/22 14:29:02 Post-Care Text: The [...] Met? Yes (more content not included)... Normal [facility] Main OR Preoperative Recordo n 12-10-2022 Main OR Preoperative Record Holding Area Document Type FTPM Summary Primary Physician: Ilya Bullock MD Finalized Date/Time: 12/10/22 13:34:32 Pt. Name: MARIELAAlessandroBARRYO.B./Sex: 1955 Male Med Rec #: [id number] Physician: Ilya Bullock MD Financial #: [id number] Pt. Type: P Room/Bed: / Admit/Disch: 12/10/22 [...] 13:34 Jennifer Mendieta RN 12/10/22 13:34 Normal [facility] Patient Correspondenceon Patient Correspondence [id number]#1.00CD :127 Normal [facility] Office Visit (Cardiology)on 10-29-2022 Follow-up visit [...] Recorded: 29Oct2022 01:07PM Heart Rate66, R Radial Fvuhnayb336, RUE, Sitting Mbpdbxhos77, RUE, Sitting Height6 ft Jtfdbd038 lb BMI Ciykfpwoon73.72 kg/m2 BSA Calculated2.37 Tobacco Useb) No Falls [...] affect . (more content not included)... Normal [employer] Office Visit (Cardiology)on 09-18-2022 Follow-up visit Diagnoses/Problems Assessed Coronary artery disease involving [place] coronary artery of [place] heart without angina pectoris (414.01) (I25.10) History [...] 18Sep2022 12:00PMRe (more content not included)... Normal [employer] Tobacco Screening.on 023 Adult depression screening assessment No [facility] [employer] y 250 DO Work Phone: Fall risk assessment a) No falls within the last year [facility] [employer] y 250 DO Work Phone: Tobacco use status CP b) No M [facility] [employer] y 250 DO Work Phone: MRI LSPINE [...] by: NATACHA RENDON Date: 2022-05-22 19:43 Normal [facility] XR FOREIGN BODY EYEon 2021 XR FOREIGN BODY EYE EXAMINATION: XR FORE IGN BODY EYE HISTORY: Foreign body in eye COMPARISON: No relevant comparison available. FINDINGS: ORBITS: Negative for a metallic foreign body. OTHER: Negative. IMPRESSION: No metallic foreign body in the orbits Electronically authenticated by: NATACHA RENDON Date: 2022-05-22 14:05 Normal [facility] CULTURE BLOODon 05-01-2022 Microscopic examination of blood, culture Culture Observations: Anaerobic bottle only positive Culture Observations: BCID- Staph epidermidis Culture Observations: NO GROWTH AT 5 DAYS IN AEROBIC BOTTLE. Culture Observations: METHICILLIN RESISTANT STAPH EPIDERMIDIS ISOLATED. PLEASE FOLLOW APPROPRIATE ISOLATION PROCEDURES. Culture Observations: FAXED RESULT TO [facility] 04/28 @ 4046 Isolate 1 Staphylococcus epidermidis Growth of ORGANISM [...] S F Oxacillin >=4 R F Normal [facility] Comment on above: Performed By: #### H STROPN #### [facility] [address] [place] [address] Dr. Troy Hickey BLOOD CULTURE ID PANELon A. baumannii Not detected Normal NOT DETECTED [facility] Comment on above: Performed By: #### B CID2 #### [facility] [address] [place] [address] Dr. Troy Hickey Bacteriodes fragilis Not detected Normal NOT DETECTED [facility] Comment on above: Performed By: #### B CID2 #### [facility] [address] [place] [address] Dr. Troy BLANDON CONTROLS PASSED Normal [facility] Comment on above: Performed By: #### B CID2 #### [facility] [address] [place] [address] Dr. Troy BUSTOSDBTHD BLOOD CULTURE BOTTLE INFORMATION [facility] Comment on above: Performed By: #### B CID2 #### [facility] [address] [place] [address] Dr. Troy Hickey BCIDHD1 ANTIMICROBIAL RESIST ANCE GENES [facility] Comment on above: Performed By: #### B CID2 #### [facility] [address] [place] [address] Dr. Troy Hickey BCIDHD2 SEE BELOW [facility] Comment on above: Result Comment: Note : Antimicrobial resitance can occur via multiple mechanisms. A Not Detected result for the [employer] antomicrobial resistance gene assays does not indicate antimicrobial susceptibility. Subculturing is required for species identification and susceptibility testing of isolates. Performed By: #### B CID2 #### [facility] [address] [place] [address] Dr. Troy BUSTOSDHD3 Positive [facility] Comment on above: Performed By: #### B CID2 #### [facility] [address] [place] [address] Dr. Troy Hickey BCIDHD4 Negative Normal [facility] Comment on above: Performed By: #### B CID2 #### [facility] [address] [place] [address] Dr. Troy Hickey BCIDHD5 YEAST Normal [facility] Comment on above: Performed By: #### B CID2 #### [facility] [address] [place] [address] Dr. Troy Hickey Bottle Set: Set 2 Normal [facility] Comment on above: Performed By: #### B CID2 #### [facility] [address] [place] [address] Dr. Troy Hickey Bottle: Anaerobic Normal [facility] Comment on above: Performed By: #### B CID2 #### [facility] [address] [place] [address] Dr. Troy Hickey C. neoformans/gattii Not detected Normal NOT DETECTED [facility] Comment on above: Performed By: #### B CID2 #### [facility] [address] [place] [address] Dr. Troy Hickey Eunice albicans Not detected Normal NOT DETECTED [facility] Comment on above: Performed By: #### B CID2 #### [facility] [address] [place] [address] Dr. Troy Hickey Eunice auris Not detected Normal NOT DETECTED [facility] Comment on above: Performed By: #### B CID2 #### [facility] [address] [place] [address] Dr. Troy Hickey Eunice glabrata Not detected Normal NOT DETECTED [facility] Comment on above: Performed By: #### B CID2 #### [facility] [address] [place] [address] Dr. Troy Hickey Eunice Krusei Not detected Normal NOT DETECTED [facility] Comment on above: Performed By: #### B CID2 #### [facility] [address] [place] [address] Dr. Troy Hickey Eunice Parapsilosis Not detected Normal NOT DETECTED [facility] Comment on above: Performed By: #### B CID2 #### [facility] [address] [place] [address] Dr. Troy Hickey Eunice Tropicalis Not detected Normal NOT DETECTED [facility] Comment on above: Performed By: #### B CID2 #### [facility] [address] [place] [address] Dr. Troy Hickey CTX-M Resistant Gene Not Applicable Normal NOT DETECTED [facility] Comment on above: Performed By: #### B CID2 #### [facility] [address] [place] [address] Dr. Troy Hickey E. Cloacae complex Not detected Normal NOT DETECTED [facility] Comment on above: Performed By: #### B CID2 #### [facility] [address] [place] [address] Dr. Troy Hickey E. faecalis Not detected Normal NOT DETECTED [facility] Comment on above: Performed By: #### B CID2 #### [facility] [address] [place] [address] Dr. Troy Hickey E. faecium Not detected Normal NOT DETECTED [facility] Comment on above: Performed By: #### B CID2 #### [facility] [address] [place] [address] Dr. Troy Hickey Enterobacteriaceae Not detected Normal NOT DETECTED [facility] Comment on above: Performed By: #### B CID2 #### [facility] [address] [place] [address] Dr. Troy Hickey Escherichia coli Not detected Normal NOT DETECTED [facility] Comment on above: Performed By: #### B CID2 #### [facility] [address] [place] [address] Dr. Troy Hickey H. influenzae Not detected Normal NOT DETECTED [facility] Comment on above: Performed By: #### B CID2 #### [facility] [address] [place] [address] Dr. Troy Hickey IMP Resistant Gene Not Applicable Normal NOT DETECTED [facility] Comment on above: Performed By: #### B CID2 #### [facility] [address] [place] [address] Dr. Troy Hiceky K. oxytoca Not detected Normal NOT DETECTED [facility] Comment on above: Performed By: #### B CID2 #### [facility] [address] [place] [address] Dr. Troy Hickey K. pneumoniae Not detected Normal NOT DETECTED [facility] Comment on above: Performed By: #### B CID2 #### [facility] [address] [place] [address] Dr. Troy Hickey Klebsiella aerogenes Not detected Normal NOT DETECTED [facility] Comment on above: Performed By: #### B CID2 #### [facility] [address] [place] [address] Dr. Troy Hickey KPC Resistant Gene Not detected Normal NOT DETECTED [facility] Comment on above: Performed By: #### B CID2 #### [facility] [address] [place] [address] Dr. Troy Hickey List. monocytogenes Not detected Normal NOT DETECTED [facility] Comment on above: Performed By: #### B CID2 #### [facility] [address] [place] [address] Dr. Troy Hickey Mcr-1 Resistant Gene Not Applicable Normal NOT DETECTED [facility] Comment on above: Performed By: #### B CID2 #### [facility] [address] [place] [address] Dr. Troy Hickey mecA/C Detected Abnormal NOT DETECTED [facility] Comment on above: Performed By: #### B CID2 #### [facility] [address] [place] [address] Dr. Troy Hickey mecA/C MREJ Not Applicable Normal NOT DETECTED [facility] Comment on above: Performed By: #### B CID2 #### [facility] [address] [place] [address] Dr. Troy Hickey N. meningitidis Not detected Normal NOT DETECTED [facility] Comment on above: Performed By: #### B CID2 #### [facility] [address] [place] [address] Dr. Troy Hickey NDM Resistant Gene Not Applicable Normal NOT DETECTED [facility] Comment on above: Performed By: #### B CID2 #### [facility] [address] [place] [address] Dr. Troy Hickey Oxa-48-like Not Applicable Normal NOT DETECTED [facility] Comment on above: Performed By: #### B CID2 #### [facility] [address] [place] [address] Dr. Troy Hickey Proteus Not detected Normal NOT DETECTED [facility] Comment on above: Performed By: #### B CID2 #### [facility] [address] [place] [address] Dr. Troy Hickey Pseud. aeruginosa Not detected Normal NOT DETECTED [facility] Comment on above: Performed By: #### B CID2 #### [facility] [address] [place] [address] Dr. Troy Hickey S. maltophilia Not detected Normal NOT DETECTED [facility] Comment on above: Performed By: #### B CID2 #### [facility] [address] [place] [address] Dr. Troy Hickey Salmonella Not detected Normal NOT DETECTED [facility] Comment on above: Performed By: #### B CID2 #### [facility] [address] [place] [address] Dr. Troy Hickey Seratia marcescens Not detected Normal NOT DETECTED [facility] Comment on above: Performed By: #### B CID2 #### [facility] [address] [place] [address] Dr. Troy Hickey Site: right arm Normal [facility] Comment on above: Performed By: #### B CID2 #### [facility] [address] [place] [address] Dr. Troy Hickey Staph. aureus Not detected Normal NOT DETECTED [facility] Comment on above: Performed By: #### B CID2 #### [facility] [address] [place] [address] Dr. Troy Hickey Staph. epidermidis Detected Abnormal NOT DETECTED [facility] Comment on above: Performed By: #### B CID2 #### [facility] [address] [place] [address] Dr. Tory Hickey Staph. lugdunensis Not detected Normal NOT DETECTED [facility] Comment on above: Performed By: #### B CID2 #### [facility] [address] [place] [address] Dr. Troy Hickey Staphylococcus Detected Abnormal NOT DETECTED [facility] Comment on above: Performed By: #### B CID2 #### [facility] [address] [place] [address] Dr. Troy Hickey Strep. agalactiae Not detected Normal NOT DETECTED [facility] Comment on above: Performed By: #### B CID2 #### [facility] [address] [place] [address] Dr. Troy Hickey Strep. pneumoniae Not detected Normal NOT DETECTED [facility] Comment on above: Performed By: #### B CID2 #### [facility] [address] [place] [address] Dr. Troy Hickey Strep. pyogenes Not detected Normal NOT DETECTED [facility] Comment on above: Performed By: #### B CID2 #### [facility] [address] [place] [address] Dr. Troy Hickey Streptococcus Not detected Normal NOT DETECTED [facility] Comment on above: Performed By: #### B CID2 #### [facility] [address] [place] [address] Dr. Troy Hickey Franc/Blair Resist. Gene Not detected Normal NOT DETECTED [facility] Comment on above: Performed By: #### B CID2 #### [facility] [address] [place] [address] Dr. Troy Hickey VIM Resistant Gene Not Applicable Normal NOT DETECTED [facility] Comment on above: Performed By: #### B CID2 #### [facility] [address] [place] [address] Dr. Troy Hickey BNPon 04-25-2022 Natriuretic peptide B (Bld) [Mass/Vol] 239.0 pg/mL Normal <=900.0 [facility] Comment on above: Performed By: #### B COMPUTER PROGRAMMING PROFESSOR, HSTROPN, CMP #### [facility] [address] [address] [address] Troy Hickey CBC AUTO DIFFon 04-25-2022 BASO # 0.1 103/ul Normal 0.0-0.1 [facility] Comment on above: Performed By: #### H STROPN #### [facility] [address] [address] [address] Troy Hikcey Basophils/100 WBC (Bld) 0.3 % Normal 0.2-2.0 [facility] Comment on above: Performed By: #### H STROPN #### [facility] [address] [address] [address] Troy Hickey EO # 0.0 103/ul Normal 0.0-0.7 [facility] Comment on above: Performed By: #### H STROPN #### [facility] [address] [address] [address] Troy Hickey Eosinophils/100 WBC (Bld) 0.1 % Critically low 0.9-7.0 [facility] Comment on above: Performed By: #### H STROPN #### [facility] [address] [address] [address] Troy Hickey Erythrocyte distribution width (RBC) [Ratio] 13.5 % Normal 11.0-15.0 [facility] Comment on above: Performed By: #### H STROPN #### [facility] [address] [address] [address] Troy Hickey Hematocrit (Bld) [Volume fraction] 33.0 % Critically low 42.0-54.0 [facility] Comment on above: Performed By: #### H STROPN #### [facility] [address] [address] [address] Troy Hickey Hemoglobin (Bld) [Mass/Vol] 10.4 g/dL Critically low 14.0-18.0 [facility] Comment on above: Performed By: #### H STROPN #### [facility] [address] [address] [address] Troy Hickey IG # 0.08 10e3/ul Critically high 0.00-0.03 [facility] Comment on above: Performed By: #### H STROPN #### [facility] [address] [address] [address] Troy Hickey IG % 0.5 % Normal 0.0-0.5 [facility] Comment on above: Performed By: #### H STROPN #### [facility] [address] [address] [address] Troy Hickey LYMPH # 0.8 103/ul Critically low 1.2-3.8 [facility] Comment on above: Performed By: #### H STROPN #### [facility] [address] [address] [address] Troy Hickey Lymphocytes/100 WBC (Bld) 4.3 % Critically low 20.5-60.0 [facility] Comment on above: Performed By: #### H STROPN #### [facility] [address] [address] [address] Troy Hickey MANUAL DIFF REQ NO Normal [facility] Comment on above: Performed By: #### H STROPN #### [facility] [address] [address] [address] Troy Hickey MCH (RBC) [Entitic mass] 25.3 pg Critically low 25.9-34.0 [facility] Comment on above: Performed By: #### H STROPN #### [facility] [address] [address] [address] Troy Hickey MCHC (RBC) [Mass/Vol] 31.5 g/dL Normal 29.9-35.2 [facility] Comment on above: Performed By: #### H STROPN #### [facility] [address] [address] [address] Troy Hickey MCV (RBC) [Entitic vol] 80.3 fL Normal 80.0-94.0 [facility] Comment on above: Performed By: #### H STROPN #### [facility] [address] [address] [address] Troy Hickey MONO # 0.6 103/ul Normal 0.3-0.8 [facility] Comment on above: Performed By: #### H STROPN #### [facility] [address] [address] [address] Troy Hickey Monocytes/100 WBC (Bld) 3.4 % Normal 1.7-12.0 [facility] Comment on above: Performed By: #### H STROPN #### [facility] [address] [address] [address] Troy Hickey NEUT # 16.0 103/ul Critically high 1.4-6.5 [facility] Comment on above: Performed By: #### H STROPN #### [facility] [address] [place] [address] Dr. Troy Hickey Neutrophils/100 WBC (Bld) 91.4 % Critically high 43.0-75.0 [facility] Comment on above: Performed By: #### H STROPN #### [facility] [address] [place] [address] Dr. Troy Hickey Platelet mean volume (Bld) [Entitic vol] 8.9 fL Critically low 9.5-13.5 [facility] Comment on above: Performed By: #### H STROPN #### [facility] [address] [place] [address] Dr. Troy Hickey PLT 269 103/ul Normal 150-450 [facility] Comment on above: Performed By: #### H STROPN #### [facility] [address] [place] [address] Dr. Troy Hickey RBC 4.11 106/ul Critically low 4.70-6.10 [facility] Comment on above: Performed By: #### H STROPN #### [facility] [address] [place] [address] Dr. Troy Hickey WBC 17.5 103/ul Critically high 4.0-11.0 [facility] Comment on above: Performed By: #### H STROPN #### [facility] [address] [place] [address] Dr. Troy Hickey CULTURE BLOODon 04-25-2022 Microscopic examination of blood, culture Culture Observations: NO GROWTH AT 5 DAYS. Normal [facility] Comment on above: Performed By: #### H STROPN #### [facility] [address] [address] [address] Troy Hcikey [facility]on SARS-CoV-2 (COVID-19) RNA ERNIE+probe Ql (Unsp spec) Not detected Normal NOT DETECTED [facility] Comment on above: Result Comment: When [...] for this test is supported by the [place] of Health and Human Service's declaration that [...] used). Performed By: #### C VDTBH #### [facility] [address] [place] [address] Dr. Troy Hickey INFLUENZA A AND B AGon 04-25 INFLUENZA A AG Negative Normal NEGATIVE SEE COMMENT [facility] Comment on above: Performed By: #### I NFLUAB #### [facility] [address] [place] [address] Dr. Troy Hickey INFLUENZA B AG Negative Normal NEGATIVE SEE COMMENT [facility] Comment on above: Performed By: #### I NFLUAB #### [facility] [address] [place] [address] Dr. Troy Hickey INTERNAL CONTROLS Within Normal Limits Normal Wi thin Normal Limits [facility] Comment on above: Performed By: #### I NFLUAB #### [facility] [address] [place] [address] Dr. Troy Hickey LACTATE/LACTIC ACIDon 2021 Lactate [Moles/Vol] 1.5 mmol/L Normal 0.4-1.9 [facility] Comment on above: Performed By: #### L ACT #### [facility] [address] [address] [address] Troy Hickey PROF 14(COMP METB)on 022 Albumin [Mass/Vol] 3.6 g/dL Normal 3.4-5.0 [facility] Comment on above: Performed By: #### B COMPUTER PROGRAMMING PROFESSOR, HSTROPN, CMP #### [facility] [address] [address] [address] Troy Hickey Albumin/Globulin [Mass ratio] 0.8 {ratio} Normal [facility] Comment on above: Performed By: #### B COMPUTER PROGRAMMING PROFESSOR, HSTROPN, CMP #### [facility] [address] [address] [address] Troy Hickey ALP [Catalytic activity/Vol] 144 U/L Critically high 46-116 [facility] Comment on above: Performed By: #### B COMPUTER PROGRAMMING PROFESSOR, HSTROPN, CMP #### [facility] [address] [address] [address] Troy Hickey ALT [Catalytic activity/Vol] 17 U/L Normal 16-63 [facility] Comment on above: Performed By: #### B COMPUTER PROGRAMMING PROFESSOR, HSTROPN, CMP #### [facility] [address] [address] [address] Troy Hickey Anion gap [Moles/Vol] 9.0 mmol/L Normal [facility] Comment on above: Performed By: #### B COMPUTER PROGRAMMING PROFESSOR, HSTROPN, CMP #### [facility] [address] [address] [address] Troy Hickey AST [Catalytic activity/Vol] 15 U/L Normal 15-37 [facility] Comment on above: Performed By: #### B COMPUTER PROGRAMMING PROFESSOR, HSTROPN, CMP #### [facility] [address] [address] [address] Troy Hickey Bilirubin [Mass/Vol] 0.7 mg/dL Normal 0.2-1.0 [facility] Comment on above: Performed By: #### B COMPUTER PROGRAMMING PROFESSOR, HSTROPN, CMP #### [facility] [address] [place] [address] Dr. Troy Hickey Calcium [Mass/Vol] 9.0 mg/dL Normal 8.5-10.1 [facility] Comment on above: Performed By: #### B COMPUTER PROGRAMMING PROFESSOR, HSTROPN, CMP #### [facility] [address] [place] [address] Dr. Troy Hickey Chloride [Moles/Vol] 101 mmol/L Normal 98-107 [facility] Comment on above: Performed By: #### B COMPUTER PROGRAMMING PROFESSOR, HSTROPN, CMP #### [facility] [address] [place] [address] Dr. Troy Hickey CO2 [Moles/Vol] 29.0 mmol/L Normal 21.0-32.0 [facility] Comment on above: Performed By: #### B COMPUTER PROGRAMMING PROFESSOR, HSTROPN, CMP #### [facility] [address] [place] [address] Dr. Troy Hickey Creatinine [Mass/Vol] 0.94 mg/dL Normal 0.70-1.30 [facility] Comment on above: Performed By: #### B COMPUTER PROGRAMMING PROFESSOR, HSTROPN, CMP #### [facility] [address] [place] [address] Dr. Troy Hickey EGFR-AF MACANESE >60 Normal >=60 [facility] Comment on above: Performed By: #### B COMPUTER PROGRAMMING PROFESSOR, HSTROPN, CMP #### [facility] [address] [place] [address] Dr. Troy Hickey EGFR-NON AF MACANESE >60 Normal >=60 [facility] Comment on above: Performed By: #### B COMPUTER PROGRAMMING PROFESSOR, HSTROPN, CMP #### [facility] [address] [place] [address] Dr. Troy Hickey Globulin (S) [Mass/Vol] 4.3 g/dL Normal [facility] Comment on above: Performed By: #### B COMPUTER PROGRAMMING PROFESSOR, HSTROPN, CMP #### [facility] [address] [place] [address] Dr. Troy Hickey Glucose [Mass/Vol] 187 mg/dL Critically high 74-106 [facility] Comment on above: Performed By: #### B COMPUTER PROGRAMMING PROFESSOR, HSTROPN, CMP #### [facility] [address] [place] [address] Dr. Troy Hickey Potassium [Moles/Vol] 4.0 mmol/L Normal 3.5-5.1 [facility] Comment on above: Performed By: #### B COMPUTER PROGRAMMING PROFESSOR, HSTROPN, CMP #### [facility] [address] [place] [address] Dr. Troy Hickey Protein [Mass/Vol] 7.9 g/dL Normal 6.4-8.2 [facility] Comment on above: Performed By: #### B COMPUTER PROGRAMMING PROFESSOR, HSTROPN, CMP #### [facility] [address] [place] [address] Dr. Troy Hickey Sodium [Moles/Vol] 135 mmol/L Critically low 136-145 [facility] Comment on above: Performed By: #### B COMPUTER PROGRAMMING PROFESSOR, HSTROPN, CMP #### [facility] [address] [place] [address] Dr. Troy Hickey Urea nitrogen [Mass/Vol] 15.0 mg/dL Normal 7.0-18.0 [facility] Comment on above: Performed By: #### B COMPUTER PROGRAMMING PROFESSOR, HSTROPN, CMP #### [facility] [address] [place] [address] Dr. Troy Hickey Urea nitrogen/Creatinine [Mass ratio] 16.0 mg/mg Normal [facility] Comment on above: Performed By: #### B COMPUTER PROGRAMMING PROFESSOR, HSTROPN, CMP #### [facility] [address] [place] [address] Dr. Troy Hickey TROPONIN, HIGH SENSITIVITYon 04-25-2022 HSTROP 11.1 pg/mL Normal 4.0-76.1 [facility] Comment on above: Result Comment: CUT- OFF POINTS HAVE BEEN ESTABLISHED BASED ON THE FOURTH UNIVERSAL DEFINITIONS OF MYOCARDIAL INFARCTION. THE UPPER REFERENCE LIMIT (URL) OF TROPONIN, DEFINED THE 99TH PERCENTILE OF cTnI DISTRIBUTION IN A REFERENCE POPULATION, HAS BEEN CONFIRMED THE DECISION THRESHOLD FOR [place] DIAGNOSIS. Performed By: #### B COMPUTER PROGRAMMING PROFESSOR, HSTROPN, CMP #### [facility] [address] [address] [address] Troy Hickey XR CHEST 1 Von [...] SANDER MOCTEZUMA Date: 2022-04-25 15:38 Normal [facility] XR CHEST 2 Von 04-23-2022 XR [...] JEAN-PAUL SALAS Date: 2022-04-23 11:36 Normal [facility] XR LSPINE MIN 4 VIEWSon 03-20 [...] by: JEAN-PAUL SALAS Date: 2022-04-02 15:11 Normal [facility] Tobacco Screening.on 022 Tobacco use status CPHS b) No M [facility] DO Work Phone: PROF 14(COMP METB)on 022 Albumin [Mass/Vol] 3.5 g/dL Normal 3.4-5.0 [facility] Comment on above: Performed By: #### C MP #### [facility] [address] [place] [address] Dr. Troy Hickey Albumin/Globulin [Mass ratio] 0.9 {ratio} Normal [facility] Comment on above: Performed By: #### C MP #### [facility] [address] [place] [address] Dr. Troy Hickey ALP [Catalytic activity/Vol] 104 U/L Normal 46-116 [facility] Comment on above: Performed By: #### C MP #### [facility] [address] [address] [address] Troy Hickey ALT [Catalytic activity/Vol] 19 U/L Normal 16-63 [facility] Comment on above: Performed By: #### C MP #### [facility] [address] [address] [address] Troy Hickey Anion gap [Moles/Vol] 11.7 mmol/L Normal [facility] Comment on above: Performed By: #### C MP #### [facility] [address] [address] [address] Troy Hickey AST [Catalytic activity/Vol] 9 U/L Critically low 15-37 [facility] Comment on above: Performed By: #### C MP #### [facility] [address] [address] [address] Troy Hickey Bilirubin [Mass/Vol] 0.4 mg/dL Normal 0.2-1.0 [facility] Comment on above: Performed By: #### C MP #### [facility] [address] [place] [address] Dr. Troy Hickey Calcium [Mass/Vol] 8.7 mg/dL Normal 8.5-10.1 [facility] Comment on above: Performed By: #### C MP #### [facility] [address] [address] [address] Troy Hickey Chloride [Moles/Vol] 104 mmol/L Normal 98-107 [facility] Comment on above: Performed By: #### C MP #### [facility] [address] [address] [address] Troy Hickey CO2 [Moles/Vol] 28.9 mmol/L Normal 21.0-32.0 [facility] Comment on above: Performed By: #### C MP #### [facility] [address] [address] [address] Troy Hickey Creatinine [Mass/Vol] 1.02 mg/dL Normal 0.70-1.30 [facility] Comment on above: Performed By: #### C MP #### [facility] [address] [place] [address] Dr. Troy Hickey EGFR-AF MACANESE >60 Normal >=60 [facility] Comment on above: Performed By: #### C MP #### [facility] [address] [address] [address] Troy Hickey EGFR-NON AF MACANESE >60 Normal >=60 [facility] Comment on above: Performed By: #### C MP #### [facility] [address] [address] [address] Troy Hickey Globulin (S) [Mass/Vol] 3.8 g/dL Normal [facility] Comment on above: Performed By: #### C MP #### [facility] [address] [address] [address] Troy Hickey Glucose [Mass/Vol] 121 mg/dL Critically high 74-106 [facility] Comment on above: Performed By: #### C MP #### [facility] [address] [place] [address] Dr. Troy Hickey Potassium [Moles/Vol] 4.6 mmol/L Normal 3.5-5.1 [facility] Comment on above: Performed By: #### C MP #### [facility] [address] [address] [address] Troy Hickey Protein [Mass/Vol] 7.3 g/dL Normal 6.4-8.2 [facility] Comment on above: Performed By: #### C MP #### [facility] [address] [address] [address] Troy Hickey Sodium [Moles/Vol] 140 mmol/L Normal 136-145 [facility] Comment on above: Performed By: #### C MP #### [facility] [address] [address] [address] Troy Hickey Urea nitrogen [Mass/Vol] 45.0 mg/dL Critically high 7.0-18.0 [facility] Comment on above: Performed By: #### C MP #### [facility] [address] [address] [address] Troy Hickey Urea nitrogen/Creatinine [Mass ratio] 44.1 mg/mg Normal [facility] Comment on above: Performed By: #### C MP #### [facility] [address] [address] [address] Troy Hickey Tobacco Screening.on 022 Adult depression screening assessment No [facility] DO Work Phone: Fall risk assessment b) One or more fall s in the last year [facility] 250 DO Work Phone: Tobacco use status CPHS b) No M [facility] 250 DO Work Phone: BNPon 11-23-2021 Natriuretic peptide B (Bld) [Mass/Vol] 153.0 pg/mL Normal <=900.0 [facility] Comment on above: Performed By: #### H STROPN #### [facility] [address] [address] [address] Troy Hickey CBC AUTO DIFFon 11-23-2021 BASO # 0.1 103/ul Normal 0.0-0.1 [facility] Comment on above: Performed By: #### H STROPN #### [facility] [address] [address] [address] Troy Hickey Basophils/100 WBC (Bld) 0.7 % Normal 0.2-2.0 [facility] Comment on above: Performed By: #### H STROPN #### [facility] [address] [place] [address] Dr. Troy Hickey EO # 0.4 103/ul Normal 0.0-0.7 [facility] Comment on above: Performed By: #### H STROPN #### [facility] [address] [place] [address] Dr. Troy Hickey Eosinophils/100 WBC (Bld) 4.2 % Normal 0.9-7.0 [facility] Comment on above: Performed By: #### H STROPN #### [facility] [address] [place] [address] Dr. Troy Hickey Erythrocyte distribution width (RBC) [Ratio] 14.2 % Normal 11.0-15.0 [facility] Comment on above: Performed By: #### H STROPN #### [facility] [address] [place] [address] Dr. Troy Hickey Hematocrit (Bld) [Volume fraction] 40.2 % Critically low 42.0-54.0 [facility] Comment on above: Performed By: #### H STROPN #### [facility] [address] [place] [address] Dr. Troy Hickey Hemoglobin (Bld) [Mass/Vol] 12.4 g/dL Critically low 14.0-18.0 [facility] Comment on above: Performed By: #### H STROPN #### [facility] [address] [place] [address] Dr. Troy Hickey IG # 0.03 10e3/ul Normal 0.00-0.03 [facility] Comment on above: Performed By: #### H STROPN #### [facility] [address] [place] [address] Dr. Troy Hickey IG % 0.3 % Normal 0.0-0.5 [facility] Comment on above: Performed By: #### H STROPN #### [facility] [address] [address] [address] Troy Hickey LYMPH # 2.4 103/ul Normal 1.2-3.8 [facility] Comment on above: Performed By: #### H STROPN #### [facility] [address] [address] [address] Troy Hickey Lymphocytes/100 WBC (Bld) 27.9 % Normal 20.5-60.0 [facility] Comment on above: Performed By: #### H STROPN #### [facility] [address] [address] [address] Troy Hickey MANUAL DIFF REQ NO Normal [facility] Comment on above: Performed By: #### H STROPN #### [facility] [address] [place] [address] Dr. Troy Hickey MCH (RBC) [Entitic mass] 27.2 pg Normal 25.9-34.0 [facility] Comment on above: Performed By: #### H STROPN #### [facility] [address] [address] [address] Troy Hickey MCHC (RBC) [Mass/Vol] 30.8 g/dL Normal 29.9-35.2 [facility] Comment on above: Performed By: #### H STROPN #### [facility] [address] [address] [address] Troy Hickey MCV (RBC) [Entitic vol] 88.2 fL Normal 80.0-94.0 [facility] Comment on above: Performed By: #### H STROPN #### [facility] [address] [address] [address] Troy Hickey MONO # 0.6 103/ul Normal 0.3-0.8 [facility] Comment on above: Performed By: #### H STROPN #### [facility] [address] [address] [address] Troy Hickey Monocytes/100 WBC (Bld) 7.2 % Normal 1.7-12.0 [facility] Comment on above: Performed By: #### H STROPN #### [facility] [address] [address] [address] Troy Hickey NEUT # 5.2 103/ul Normal 1.4-6.5 [facility] Comment on above: Performed By: #### H STROPN #### [facility] [address] [address] [address] Troy Hickey Neutrophils/100 WBC (Bld) 59.7 % Normal 43.0-75.0 [facility] Comment on above: Performed By: #### H STROPN #### [facility] [address] [address] [address] Troy Hickey Platelet mean volume (Bld) [Entitic vol] 8.5 fL Critically low 9.5-13.5 [facility] Comment on above: Performed By: #### H STROPN #### [facility] [address] [place] [address] Dr. Troy Hickey PLT 252 103/ul Normal 150-450 [facility] Comment on above: Performed By: #### H STROPN #### [facility] [address] [address] [address] Troy Hickey RBC 4.56 106/ul Critically low 4.70-6.10 [facility] Comment on above: Performed By: #### H STROPN #### [facility] [address] [address] [address] Troy Hickey WBC 8.6 103/ul Normal 4.0-11.0 [facility] Comment on above: Performed By: #### H STROPN #### [facility] [address] [place] [address] Dr. Troy Hickey CTA CHEST WO W [...] by: ABRAN CHRISTINE Date: 2021-11-23 19:06 Normal [facility] Covid-19 PCR (CVDTBH)on SARS-CoV-2 (COVID-19) RNA ERNIE+probe Ql (Unsp spec) Not detected Normal NOT DETECTED [facility] Comment on above: Result Comment: This test is not yet approved or cleared by the [place] FDA. When there are no FDA-approved or cleared tests available, and other criteria are met, FDA can make tests available under an emergency access mechanism called an Emergency Use Authorization (EUA). The EUA for this test is supported by the [place] of Health and Human Service's (HHS's) declaration [...] SARS-CoV-2. Performed By: #### B CID2 #### [facility] [address] [place] [address] Dr. Troy Hickey D-DIMERon 11-23-2021 D-DIMER 0.52 mg/L FEU Critically high 0.19-0.50 [facility] Comment on above: Performed By: #### D DIM #### [facility] [address] [place] [address] Dr. Troy Hickey D-DIMER COMMENTS SEE BELOW Normal [facility] Comment on above: Result Comment: Incr [...] hospitalization. Performed By: #### D DIM #### [facility] [address] [place] [address] Dr. Troy Hickey PROF 14(COMP METB)on 022 Albumin [Mass/Vol] 3.5 g/dL Normal 3.4-5.0 [facility] Comment on above: Performed By: #### H STROPN #### [facility] [address] [place] [address] Dr. Troy Hickey Albumin/Globulin [Mass ratio] 0.8 {ratio} Normal [facility] Comment on above: Performed By: #### H STROPN #### [facility] [address] [place] [address] Dr. Troy Hickey ALP [Catalytic activity/Vol] 104 U/L Normal 46-116 [facility] Comment on above: Performed By: #### H STROPN #### [facility] [address] [place] [address] Dr. Troy Hickey ALT [Catalytic activity/Vol] 22 U/L Normal 16-63 [facility] Comment on above: Performed By: #### H STROPN #### [facility] [address] [address] [address] Troy Hickey Anion gap [Moles/Vol] 6.2 mmol/L Normal [facility] Comment on above: Performed By: #### H STROPN #### [facility] [address] [address] [address] Troy Hickey AST [Catalytic activity/Vol] 16 U/L Normal 15-37 [facility] Comment on above: Performed By: #### H STROPN #### [facility] [address] [address] [address] Troy Hickey Bilirubin [Mass/Vol] 0.4 mg/dL Normal 0.2-1.0 [facility] Comment on above: Performed By: #### H STROPN #### [facility] [address] [address] [address] Troy Hickey Calcium [Mass/Vol] 8.2 mg/dL Critically low 8.5-10.1 [facility] Comment on above: Performed By: #### H STROPN #### [facility] [address] [address] [address] Troy Hickey Chloride [Moles/Vol] 104 mmol/L Normal 98-107 [facility] Comment on above: Performed By: #### H STROPN #### [facility] [address] [address] [address] Troy Hickey CO2 [Moles/Vol] 31.8 mmol/L Normal 21.0-32.0 [facility] Comment on above: Performed By: #### H STROPN #### [facility] [address] [address] [address] Troy Hickey Creatinine [Mass/Vol] 0.88 mg/dL Normal 0.70-1.30 [facility] Comment on above: Performed By: #### H STROPN #### [facility] [address] [address] [address] Troy Hickey EGFR-AF MACANESE >60 Normal >=60 [facility] Comment on above: Performed By: #### H STROPN #### [facility] [address] [address] [address] Troy Hickey EGFR-NON AF MACANESE >60 Normal >=60 [facility] Comment on above: Performed By: #### H STROPN #### [facility] [address] [address] [address] Troy Hickey Globulin (S) [Mass/Vol] 4.2 g/dL Normal [facility] Comment on above: Performed By: #### H STROPN #### [facility] [address] [address] [address] Troy Hickey Glucose [Mass/Vol] 109 mg/dL Critically high 74-106 [facility] Comment on above: Performed By: #### H STROPN #### [facility] [address] [place] [address] Dr. Troy Hickey Potassium [Moles/Vol] 4.0 mmol/L Normal 3.5-5.1 [facility] Comment on above: Performed By: #### H STROPN #### [facility] [address] [place] [address] Dr. Troy Hickey Protein [Mass/Vol] 7.7 g/dL Normal 6.4-8.2 [facility] Comment on above: Performed By: #### H STROPN #### [facility] [address] [place] [address] Dr. Troy Hickey Sodium [Moles/Vol] 138 mmol/L Normal 136-145 [facility] Comment on above: Performed By: #### H STROPN #### [facility] [address] [place] [address] Dr. Troy Hickey Urea nitrogen [Mass/Vol] 17.0 mg/dL Normal 7.0-18.0 [facility] Comment on above: Performed By: #### H STROPN #### [facility] [address] [place] [address] Dr. Troy Hickey Urea nitrogen/Creatinine [Mass ratio] 19.3 mg/mg Normal [facility] Comment on above: Performed By: #### H STROPN #### [facility] [address] [address] [address] Troy Hickey PROTIMEon 11-23-2021 INR Coag (PPP) [Relative time] 1.01 {INR} Normal [facility] Comment on above: Performed By: #### B CID2 #### [facility] [address] [place] [address] Dr. Troy Hickey INR GUIDELINES SEE BELOW Normal [facility] Comment on above: Result Comment: WAQAS RED INR: 2.0 - 3.0 CONDITIONS NOT LISTED BELOW 2.5 - 3.5 FOR PROSTHETIC HEART VALVE REPLACEMENT 2.5 - 3.5 RECURRENT THROMBOSIS Performed By: #### B CID2 #### [facility] [address] [place] [address] Dr. Troy Hickey PT Coag (PPP) [Time] 10.9 s Normal 9.0-11.6 [facility] Comment on above: Performed By: #### B CID2 #### [facility] [address] [place] [address] Dr. Troy Hickey PTTon 11-23-2021 aPTT Coag (Bld) [Time] 28.3 s Normal 22.3-36.2 [facility] Comment on above: Performed By: #### B CID2 #### [facility] [address] [place] [address] Dr. Troy Hickey TROPONIN, HIGH SENSITIVITYon 11-23-2021 HSTROP 197.7 pg/mL Critically high 4.0-76.1 [facility] Comment on above: Result Comment: CUT- OFF POINTS HAVE BEEN ESTABLISHED BASED ON THE FOURTH UNIVERSAL DEFINITIONS OF MYOCARDIAL INFARCTION. THE UPPER REFERENCE LIMIT (URL) OF TROPONIN, DEFINED THE 99TH PERCENTILE OF cTnI DISTRIBUTION IN A REFERENCE POPULATION, HAS BEEN CONFIRMED THE DECISION THRESHOLD FOR [place] DIAGNOSIS. Test Repeated. Critical Value Verified Performed By: #### H STROPN #### [facility] [address] [place] [address] Dr. Troy Hickey HSTROP 138.8 pg/mL Critically high 4.0-76.1 [facility] Comment on above: Result Comment: CUT- OFF POINTS HAVE BEEN ESTABLISHED BASED ON THE FOURTH UNIVERSAL DEFINITIONS OF MYOCARDIAL INFARCTION. THE UPPER REFERENCE LIMIT (URL) OF TROPONIN, DEFINED THE 99TH PERCENTILE OF cTnI DISTRIBUTION IN A REFERENCE POPULATION, HAS BEEN CONFIRMED THE DECISION THRESHOLD FOR [place] DIAGNOSIS. Performed By: #### H STRO #### [facility] [address] [place], [place] [id number] Dr. Troy Hickey XR FINGER MIN 2 VIEWSon 09-17 XR FINGER MIN 2 VIEWS EXAM: XR FINGER [place] N 2 VIEWS HISTORY: Laceration of finger [...] LINDA MICHEL Date: 2021-10-05 15:49 Normal [facility] COVID Quick Testingon 2021 Result Positive [facility] Other Quick Fluon 08-08-2021 FLUAV Ab CF (S) [Titer] Negative N [facility] Other FLUBV Ab CF (S) [Titer] Positive N [facility] Other Vital Signs Date Time Vital Sign Value Performing Clinician Facility 10-22-2023 10:50-0400 Body height 182.9 cm Addy Fuller DO Work Phone: [facility] 10-22-2023 10:50-0400 Body mass index (BMI) [Ratio] 34.58 kg/m2 Addy Fuller DO Work Phone: [facility] 10-22-2023 10:50-0400 Body weight 115.67 kg Addy Fuller DO Work Phone: [facility] 10-22-2023 10:50-0400 Diastolic blood pressure 62 mm[Hg] Addy Fuller DO Work Phone: [facility] 10-22-2023 10:50-0400 Heart rate 68 /min Addy Fuller DO Work Phone: [facility] 10-22-2023 10:50-0400 Systolic blood pressure 132 mm[Hg] Addy Fuller DO Work Phone: [facility] 10-09-2023 12:50-0400 Body height 182.9 cm Marietta Brice GAS METER REPAIR SUPERVISOR-BINDING MACHINE OPERATOR Work Phone: [facility] 10-09-2023 12:50-0400 Body mass index (BMI) [Ratio] 34.88 kg/m2 Marietta Brice GAS METER REPAIR SUPERVISOR-BINDING MACHINE OPERATOR Work Phone: [facility] 10-09-2023 12:50-0400 Body weight 116.67 kg Marietta Brice GAS METER REPAIR SUPERVISOR-BINDING MACHINE OPERATOR Work Phone: [facility] 10-09-2023 12:50-0400 Diastolic blood pressure 55 mm[Hg] Marietta Brice GAS METER REPAIR SUPERVISOR-BINDING MACHINE OPERATOR Work Phone: [employer] 10-09-2023 12:50-0400 Heart rate 63 /min Marietta Brice GAS METER REPAIR SUPERVISOR-BINDING MACHINE OPERATOR Work Phone: [facility] 10-09-2023 12:50-0400 Systolic blood pressure 102 mm[Hg] Marietta Brice GAS METER REPAIR SUPERVISOR-BINDING MACHINE OPERATOR Work Phone: [facility] 10-01-2023 08:35-0400 Body temperature 98.1 [degF] DO Joe House Work Phone: [facility] 10-01-2023 08:35-0400 Diastolic blood pressure 72 mm[Hg] DO Joe House Work Phone: [facility] 10-01-2023 08:35-0400 Heart rate 84 /min DO Joe House Work Phone: [facility] 10-01-2023 08:35-0400 Respiratory rate 20 /min DO Joe House Work Phone: [facility] 10-01-2023 08:35-0400 SaO2% (BldA) [Mass fraction] 98 % DO Joe House Work Phone: [facility] 10-01-2023 08:35-0400 Systolic blood pressure 134 mm[Hg] DO Joe House Work Phone: [facility] 10-01-2023 06:00-0400 Body weight 114.9 kg DO Joe House Work Phone: [facility] 09-30-2023 02:20-0400 Body height 182.88 cm DO Joe House Work Phone: [facility] 03-26-2023 11:21-0400 Body height 182.88 cm Joe P House Work Phone: [facility] [facility] DO Work Phone: 03-26-2023 11:21-0400 Body mass index (BMI) [Ratio] 34.99 kg/m2 Joe P House Work Phone: [facility] [facility] DO Work Phone: 03-26-2023 11:21-0400 Body surface area Derived from formula 2.37 m2 Joe P House Work Phone: [facility] [facility] DO Work Phone: 03-26-2023 11:21-0400 Body weight 117.03 kg Joe P House Work Phone: [facility] [facility] DO Work Phone: 03-26-2023 11:21-0400 Diastolic blood pressure 70 mm[Hg] Joe P House Work Phone: [facility] [facility] DO Work Phone: 03-26-2023 11:21-0400 Heart rate 64 /min Joe Lam House Work Phone: [facility] [facility] DO Work Phone: 03-26-2023 11:21-0400 Systolic blood pressure 148 mm[Hg] Joe P House Work Phone: [facility] [facility] DO Work Phone: 09-18-2022 12:00-0500 Heart rate 66 /min Joe P House Work Phone: [facility] [facility] DO Work Phone: 09-18-2022 11:55-0500 Body height 182.88 cm Joe P House Work Phone: [facility] [facility] DO Work Phone: 09-18-2022 11:55-0500 Body mass index (BMI) [Ratio] 35.4 kg/m2 Joe Lam House Work Phone: [facility] [facility] DO Work Phone: 09-18-2022 11:55-0500 Body surface area Derived from formula 2.39 m2 Joe P House Work Phone: [facility] [facility] DO Work Phone: 09-18-2022 11:55-0500 Body weight 118.39 kg Joe P House Work Phone: [facility] [facility] DO Work Phone: 09-18-2022 11:55-0500 Diastolic blood pressure 72 mm[Hg] Joe P House Work Phone: [facility] [facility] DO Work Phone: 09-18-2022 11:55-0500 Systolic blood pressure 142 mm[Hg] Joe P House Work Phone: [facility] [facility] DO Work Phone: 03-19-2022 11:01-0400 Body height 182.88 cm Joe P House Work Phone: [facility] [facility] DO Work Phone: 03-19-2022 11:01-0400 Body mass index (BMI) [Ratio] 35.13 kg/m2 Joe P House Work Phone: [facility] [facility] DO Work Phone: 03-19-2022 11:01-0400 Body surface area Derived from formula 2.38 m2 Joe P House Work Phone: [facility] [facility] DO Work Phone: 03-19-2022 11:01-0400 Body weight 117.48 kg Joe P House Work Phone: [facility] [facility] DO Work Phone: 03-19-2022 11:01-0400 Diastolic blood pressure 62 mm[Hg] Joe P House Work Phone: [facility] [facility] DO Work Phone: 03-19-2022 11:01-0400 Heart rate 60 /min Joe P House Work Phone: [facility] [facility] DO Work Phone: 03-19-2022 11:01-0400 Systolic blood pressure 102 mm[Hg] Joe P House Work Phone: [facility] [facility] DO Work Phone: 12-09-2021 10:30-0400 Diastolic blood pressure 68 mm[Hg] Joe P House Work Phone: [facility] [facility] DO Work Phone: 12-09-2021 10:30-0400 Systolic blood pressure 118 mm[Hg] Joe P House Work Phone: [facility] [facility] DO Work Phone: 12-09-2021 10:25-0400 Body height 182.88 cm Joe P House Work Phone: [facility] [facility] DO Work Phone: 12-09-2021 10:25-0400 Body mass index (BMI) [Ratio] 36.08 kg/m2 Joe P House Work Phone: [facility] [facility] DO Work Phone: 12-09-2021 10:25-0400 Body surface area Derived from formula 2.4 m2 Joe P House Work Phone: [facility] [facility] DO Work Phone: 12-09-2021 10:25-0400 Body weight 120.66 kg Joe P House Work Phone: [facility] [facility] DO Work Phone: 12-09-2021 10:25-0400 Diastolic blood pressure 72 mm[Hg] Joe P House Work Phone: [facility] [facility] DO Work Phone: 12-09-2021 10:25-0400 Heart rate 66 /min Joe P House Work Phone: [facility] [facility] DO Work Phone: 12-09-2021 10:25-0400 Systolic blood pressure 124 mm[Hg] Joe P House Work Phone: [facility] [facility] DO Work Phone: 08-08-2021 15:15-0500 Body height 182.88 cm Jocelyn Diaz Other [facility] Other 08-08-2021 15:15-0500 Body mass index (BMI) [Ratio] 34.58 kg/m2 Jocelyn Diaz Other [employer] Other 08-08-2021 15:15-0500 Body temperature 97.1 [degF] Jocelyn Diaz Other [employer] Other 08-08-2021 15:15-0500 Body weight 115.67 kg Jocelyn Diaz Other [employer] Other 08-08-2021 15:15-0500 Respiratory rate 18 /min Jocelyn Diaz Other [employer] Other 08-08-2021 15:15-0500 SaO2% (BldA) [Mass fraction] 98 % Jocelyn Diaz Other [employer] Other Encounters Encounter Date Encounter Type Care Provider Facility Start: 10-22-2023 End: 10-22-2023 ambulatory [facility] Ambulatory Start: 10-22-2023 End: 10-22-2023 Office outpatient visit 25 minutes Addy Causeydon DO Work Phone: [facility] Comment on above: Coronary artery dise ase involving [place] coronary artery of [place] heart without angina pectoris; History of PTCA; NSTEMI, initial episode of care ([facility]); Hypertension, benign; Mixed hyperlipidemia; Gastrointestinal hemorrhage, unspecified gastrointestinal hemorrhage type; Other cough; Other fatigue; HOPPER (dyspnea on exertion); Former cigarette smoker Start: 10-15-2023 End: 10-16-2023 ambulatory García Castro [facility] Start: 10-15-2023 End: 10-16-2023 ambulatory García Castro [facility] Start: 10-09-2023 End: 10-09-2023 ambulatory [facility] Start: 10-09-2023 End: 10-09-2023 Office outpatient new 30 minutes [facility] Lillian FloydBrice GAS METER REPAIR SUPERVISOR-BINDING MACHINE OPERATOR Work Phone: [facility] Comment on above: Positive colorectal cancer screening using Cologuard test (Primary Dx); Loose stools Start: 10-05-2023 End: 10-06-2023 ambulatory JOE P HOUSE Facility:[facility] Start: 09-30-2023 Non-patient / Non-visit DO Melissa lizziees House Work Phone: [facility] Work Phone: Start: 09-30-2023 End: 10-01-2023 Evaluation and management of inpatient Tamara Mischler Facility:[facility] Start: 09-30-2023 End: 10-01-2023 Evaluation and management of inpatient DO Joe House Work Phone: [facility] [place] [facility] Work Phone: Start: 09-29-2023 End: 09-30-2023 ambulatory JOE P VASRHA Facility:[facility] Start: 09-23-2023 ambulatory Neymar Willingham Facility :[facility] Start: 09-22-2023 End: 09-23-2023 ambulatory Erwin VALADEZ [facility] Start: 09-17-2023 End: 09-18-2023 ambulatory JOE MADDOX Facility:[facility] Start: 08-27-2023 End: 08-28-2023 ambulatory Gibran Barker MD Facility:[facility] Start: 07-31-2023 End: 08-01-2023 ambulatory Ariana Urena Facility:[facility] Start: 07-21-2023 End: 07-26-2023 ambulatory JOE MADDOX Facility:[facility] Start: 07-14-2023 End: 07-15-2023 ambulatory Gibran Barker MD Facility:[facility] Start: 06-25-2023 End: 06-26-2023 ambulatory Neymar Willingham Facility:[facility] Start: 06-05-2023 End: 06-06-2023 ambulatory Ariana Urena Facility:[facility] Start: 05-26-2023 End: 05-27-2023 ambulatory JOE MADDOX Facility:[facility] Start: 05-19-2023 End: 05-20-2023 ambulatory Neymar Willingham Facility:[facility] Start: 04-08-2023 End: 04-09-2023 ambulatory Ariana Urena Facility:[facility] Start: 03-26-2023 Office outpatient vi sit 25 minutes Joe P House Work Phone: [facility] [facility] DO Work Phone: Start: 03-26-[address] Addy Fuller Facility: Start: 03-09-2023 Rx Renewal Joe Lam Hous e Work Phone: [facility] [facility] DO Work Phone: Start: 01-09-2023 End: 01-10-2023 ambulatory CLAUDE Urena Facility:[facility] Start: 12-10-2022 End: 12-11-2022 ambulatory MD Ilya Bullock Facility:[facility] Start: 10-29-2022 ambulatory Emanuel Andrews Facility:1 [id number] Start: 09-18-2022 Office consultation new/estab patient 60 min Joe P House Work Phone: [facility] [facility] DO Work Phone: Start: 09-18-2022 Office outpatient vi sit 25 minutes Joe P House Work Phone: [facility] [facility] DO Work Phone: Start: 09-18-[address] Addy Fuller Facility: Start: 05-22-2022 End: 05-23-[address] DOCTOR OCAMPO Facility: Start: 04-25-2022 End: 04-25-[address] JOE MADDOX Facility: Start: 04-23-2022 End: 04-24-[address] JOE MADDOX Facility:[facility] Start: 04-02-2022 End: 04-03-[address] JOE MADDOX Facility:[facility] Start: 03-19-2022 Office outpatient vi sit 25 minutes Joe P House Work Phone: [facility] [facility] DO Work Phone: Start: 02-10-2022 End: 02-11-[address] JOE MADDOX Facility:[facility] Start: 12-17-2021 End: 02-19-2022 ambulatory EMANUEL TURNER Facility:[facility] Start: 12-09-2021 Transitional care [facility] frankalessandro srvc 14 day discharge Joe Maddox Work Phone: [facility] [facility] DO Work Phone: Start: 11-23-2021 End: 11-23-2021 ambulatory [facility] Facility:[facility] Start: 10-05-2021 End: 10-05-[address] [facility] Facility:[facility] Start: 08-08-2021 End: 08-08-2021 ambulatory Jocelyn Diaz Other [facility] [employer] Other Start: 08-08-2021 Office outpatient ne w 20 minutes Jocelyn Diaz [facility] [place] Patient encounter status Joe Maddox Work Phone: [facility] [facility] DO Work Phone: End: 03-26-2023 Patient encounter status Joe Lam Varsha Work Phone: [facility] [employer] [facility] 250 DO Work Phone: Procedures Date Procedure Procedure Detail Performing Clinician Start: 09-30-2023 CL [facility] COR Angio DO C sofia [facility] Work Phone: Start: 09-30-2023 DO Joe Varsha Work Phone: Start: 05-25-2023 History of percutane ous transluminal coronary angioplasty History of PTCA Addy Fuller DO Work Phone: Start: 02-10-[address] DOCTOR OCAMPO Comment on above: Performed By: #### B CID2 #### [facility] [address] [place] [address] Dr. Troy Hickey Appendectomy Joe Maddox Work Phone: Cardiac catheterization Kika Lam [employer] Work Phone: Colonoscopy Joe Lam [employer] [facility] Work Phone: Decompression of med lenore nerve Joe P House Work Phone: History of percutane ous transluminal coronary angioplasty History of PTCA Joe Lam House Work Phone: History of percutane ous transluminal coronary angioplasty History of PTCA Addy Fuller DO Work Phone: Insertion of arterial stent Joe Lam House Work Phone: Prosthetic arthropla sty of the hip Joe P House Work Phone: Repair of shoulder Joe P House Work Phone: Total replacement of hip Melissa rlmiguel P House Work Phone: Plan of Treatment Date Care Activity Detail Author Start: 10-06-2031 DTaP,Tdap and Td Vac cines (2 - Tdap) DTaP,Tdap and Td Vaccines (2 - Tdap) [facility] Start: 10-06-2031 DTaP/Tdap/Td Vaccine s (2 - Tdap) DTaP/Tdap/Td Vaccines (2 - Tdap) [facility] Start: 10-08-2024 Adult BMI Screening Adult BMI Screen ing [facility] Start: 10-08-2024 Tobacco Screening Tobacco Screening [facility] Start: 11-30-2023 ambulatory Ambulatory Facility: [facility] Start: 10-22-2023 End: 10-21-2025 NM Heart Perfusion W stress and W radionuclide IV Nuclear Stress Test Cardiac Nuclear Medicine Routine NSTEMI, initial episode of care ([facility]) Other cough Other fatigue HOPPER (dyspnea on exertion) Expected: 10/22/2023 (Approximate), Expires: 10/21/2025 [facility] Service Area Work Phone: Comment on above: Expected: 10/22/2023 (Approximate), Expires: 10/21/2025 Start: 10-22-2023 FUV, Provider: Addy Fuller, Status: Pen, Time: 10:50 AM FUV, Provider: Addy Fuller, Status: Pen, Time: 10:50 AM [facility] [facility] DO Work Phone: Start: 10-10-2023 [facility] Start: 10-09-2023 [facility] Start: 10-08-2023 [facility] Start: 10-07-2023 [facility] Start: 10-06-2023 [facility] Start: 10-05-2023 [facility] Start: 10-04-2023 [facility] Start: 10-03-2023 [facility] Start: 10-02-2023 [facility] Start: 09-30-2023 Referral to river expedition guide [facility] Start: 09-30-[address] [facility] Start: 09-30-2023 [facility] Start: 05-27-2023 FUV, Provider: Emanuel Smalls, Status: Pen, Time: 1:30 PM FUV, Provider: Emanuel Smalls, Status: Pen, Time: 1:30 PM [facility] [facility] DO Work Phone: Start: 03-26-2023 FUV, Provider: Addy Fuller, Status: Pen, Time: 11:20 AM FUV, Provider: Addy Fuller, Status: Pen, Time: 11:20 AM [facility] [facility] DO Work Phone: Start: 03-20-2023 COVID-19 Vaccine ( season) COVID-19 Vaccine ( season) [facility] Start: 10-29-2022 FUV, Provider: Emanuel Smalls, Status: Pen, Time: 1:00 PM FUV, Provider: Emanuel Smalls, Status: Pen, Time: 1:00 PM [facility] [facility] DO Work Phone: Start: 09-25-2022 FUV, Provider: Addy Fuller, Status: Pen, Time: 11:20 AM FUV, Provider: Addy Fuller, Status: Pen, Time: 11:20 AM [facility] [facility] DO Work Phone: Start: 03-19-2022 FUV, Provider: Addy Fuller, Status: Brennen, Time: 10:30 AM FUV, Provider: Addy Fuller, Status: Brennen, Time: 10:30 AM [facility] [employer] 250 DO Work Phone: Start: 2020 Abdominal aortic ane urysm screening Abdominal Aortic Aneurysm (AAA) Screening [facility] Start: 2020 Fall Risk Screening Fall Risk Screen ing [facility] Start: 2005 Administration of varicella zoster vaccine Zoster (Shingles) Vaccine (1 of 2) [facility] Start: 2005 Zoster Vaccines (1 of 2) Zoste r Vaccines (1 of 2) [facility] Start: 1973 Adult BMI Follow Up Plan Adult BMI Follow Up Plan [facility] Start: 1973 Hepatitis C screening Hepatitis C Sc reening [facility] Start: 1967 Depression Screening Depression Scre ening [facility] Start: 1961 Pneumococcal Vaccine : 65+ Years (1 - PCV) Pneumococcal Vaccine: 65+ Years (1 - PCV) [facility] Start: 1955 Lipid panel Lipid Panel [facility] Start: 1955 Medicare Annual Well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 home. --Other chronic medical conditions as outlined in note. Refer to d/c plan below: -Case reviewed and discussed with Dr. Robin is in agreement with current d/c plan. Case will be reviewed and discussed with PCP or communications instructor MD once the hospital real time operator is able to reach him/her. Ispent a lengthy amount of time with the [...] made to ensure accuracy, however, inadvertently computerized combination machine tool setter mistakes may be present. Procedures and Treatment Provided EGD 09/23/23 Procedure The procedure was performed in the hospital. See anesthesia record for sedation given during procedure. The patient was positioned starting in the left lateral decubitus position. Endoscope type usedwas, introduced orally, advanced to duodenum. No difficulty [...] and Plan EGD: Diagnosis: Esophageal foreign body ([id number] T18.108A, Discharge, Medical). Course: Progressing as expected. [...] Head: Normocephalic/atraumatic Eyes: PERRLA, normal EOM HEENT: Pease, moist mucous membranes and normal tongue Normal oropharynx, and posterior pharynx without lesions or exudates. Neck: Trachea midline, neck supple, no lymphadenopathy, no stridor Chest: No chest wall deformity, no chest wall tenderness Lungs: Lungs clear anterior, posteriorly Cardio: Normal rate, currently in NSR, no edema Pulses: Normal capillary refill Abdomen: Soft, non-distended, non-tender, normal BS Musculos (more content not included)...[facility] HospitalComment on above:Result Comment: Electronically Signed By: Ariana ECKERT CNP\.br\Date and Time Signed: 09/23/23 14:07 EST\.br\Electronically Co-Signed By: Lobito FARFAN, Neel\.br\Date and Time Co-Signed: 09/25/23 06:50 [id number] NoteChief Complaint Chicken Bone in my throat History of Present Illness The following is a history and physical performed on the patient who was transferred from [place] emergency department arrived just prior to midnight due to esophageal food impaction was a chickenwing and they did not have specialists/equipment or backup to be able to take care of the patient and recommendation was made to transfer to another facility. Have been advised by the clinician at home I received the report Dr. Velasco had suggested consideration of transfer to our facility. The ict project manager communications instructor Dr. Costa was contacted who then recommended admission to the hospitalist service. Below history was obtained from the patient when I met him on the general medical floor I find him to be a very pleasant 60-year-old obese white male with a past medical history significant for coronary artery disease he states in November 2021 he presented to [place] emergency department acute [place] he was transferred to [facility] with Dr. Fuller placed 3 stents. Patient [...] denies any prior dysphagia or odynophagia. He alsodenies any heartburn or reflux. He states without delay he drove himself to the [facility]. Patient was given a GI cocktail which patient states have him some relief but it did not his tongue.He did have CT soft tissues of the [...] Has been n.p.o. since his presentation to [facility] other than the GI cocktail. He denies any chest pain or any other complaints. 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 He has had no chest pain with this activity, no shortness of breath with this activity no symptoms similar to whenhe had his acute [place] when he had chest pressure and shortness [...] no food allergies, no recurrent infections, no impairedimmunity Additional ROS info: Except as noted in [...] normal conjunctiva, sclera ba (more content not included)...[facility] HospitalComment on above:Result Comment: Electronically Signed By: Erwin VALADEZ DO.deborah\Date and Time Signed: 09/23/23 01:23 [id number] Note Entered by JOE MADDOX DO on September 17, 2023 07:47:46 EST From: JOE MADDOX DO To: [facility]/pharmacy #[id number] Sent: 09/17/2023 07:47:46 EST Subject: Medication Management Submitted: Complete:clopidogrel (clopidogrel 75 mg oral tablet) Signed by JOE MADDOX DO 09/17/2023 07:47:00 EST Approved with modifications: clopidogrel (CLOPIDOGREL 75 MG TABLET) TAKE 1 TABLET BY MOUTH EVERY DAY Qty: 90 tab(s) Days Supply: 90 Refills: 1 Substitutions Allowed Route To Pharmacy - [facility]/pharmacy #[id number] From: [facility] [id number] To: JOE MADDOX DO Sent: September 16, 2023 11:21:06 PM HEAD PIECE ASSEMBLER Subject: Medication Management Due: September 17, 2023 12:02:40 AM HEAD PIECE ASSEMBLER On Hold Pending Signature Dispensed Drug: clopidogrel (clopidogrel 75 mg oral tablet), TAKE 1 TABLET BY MOUTH EVERY DAY Quantity: 90 tab(s) Days Supply: 90 Refills: 0 Substitutions Allowed [id number] Note Entered by JOE MADDOX DO on September 07, 2023 07:40:54 EST From: JOE MADDOX DO To: [facility]/pharmacy #[id number] Sent: 09/07/2023 07:40:54 EST Subject: Medication Management Submitted: Complete:valsartan (valsartan 160 mg oral tablet) Signed by JOE MADDOX DO 09/07/2023 07:40:00 EST Approved with modifications: valsartan (VALSARTAN 160 MG TABLET) TAKE 1 TABLET BY MOUTH EVERY DAY Qty: 90 tab(s) Days Supply: 90 Refills: 1 Substitutions Allowed Route To Pharmacy - [facility]/pharmacy #[id number] From: [facility] [id number] To: JOE MADDOX DO Sent: September 03, 2023 11:17:15 PM HEAD PIECE ASSEMBLER Subject: Medication Management Due: September 04, 2023 12:08:50 AM HEAD PIECE ASSEMBLER On Hold Pending Signature Dispensed Drug: valsartan (valsartan 160 mg oral tablet), TAKE 1 TABLET BY MOUTH EVERY DAY Quantity: 90 tab(s) Days Supply: 90 Refills: 1 Substitutions Allowed [id number] Note Entered by JOE MADDOX DO on September 03, 2023 07:30:22 EST From: JOE MADDOX DO To: [facility]/pharmacy #[id number] Sent: 09/03/2023 07:30:21 EST Subject: Medication Management Submitted: Complete:atorvastatin (atorvastatin 80 mg oral tablet) Signed by JOE MADDOX DO 09/03/2023 07:30:00 EST Approved with modifications: atorvastatin (ATORVASTATIN 80 MG TABLET) TAKE 1 TABLET BY MOUTH EVERY DAY Qty: 90 tab(s) Days Supply: 90 Refills: 1 Substitutions Allowed Route To Pharmacy - [facility]/pharm[facility] #[id number] From: [id number] To: JOE MADDOX DO Sent: September 02, 2023 11:17:42 PM HEAD PIECE ASSEMBLER Subject: Medication Management Due: September 03, 2023 12:14:24 AM HEAD PIECE ASSEMBLER On Hold Pending Signature Dispensed Drug: atorvastatin (atorvastatin 80 mg oral tablet), TAKE 1 TABLET BY MOUTH EVERY DAY Quantity: 90 tab(s) Days Supply: 90 Refills: 0 Substitutions Allowed [id number] Note [id number] 06-08-2023 NoteEntered by JOE MADDOX DO on June 08, 2023 07:47:25 EST From: JOE MADDOX DO To: [id number] Sent: 06/08/2023 07:47:25 EST Subject: Medication Management Submitted: Complete:traZODone (traZODone 50 mg oral tablet) Signed by JOE MADDOX DO 06/08/2023 07:47:00 EST Approved with modifications: traZODone (TRAZODONE 50 MG TABLET) TAKE 1 TABLET BY MOUTH EVERYDAY AT BEDTIME Qty: 90 tab(s) Days Supply: 90 Refills: 1 Substitutions Allowed Route To Pharmacy - [facility]/pharmacy #[id number] From: [id number] To: JOE MADDOX DO Sent: June 07, 2023 8:05:13 PM HEAD PIECE ASSEMBLER Subject: Medication Management Due: June 08, 2023 12:24:48 AM HEAD PIECE ASSEMBLER On Hold Pending Signature Dispensed Drug: traZODone (traZODone 50 mg oral tablet), TAKE 1 TABLET BY MOUTH EVERYDAY AT BEDTIME Quantity: 90 tab(s) Days Supply: 90 Refills: 0 Substitutions Allowed [id number] Note [id number] 12-10-2022 NoteProcedure: Interlaminar lumbar epidural steroid injection under fluoroscopic guidance [...] with a home exercise program for this issue.The patient's imaging is notable for severe spinal stenosis at L4-L5. The pain significantly limitsthe patient's quality of life and function. Specifically [...] was administered into the skin a 17-gauge Touhyneedle was inserted into the skin and advanced toward the L5-S1 interspace under intermittent fluoroscopic guidance. The epidural space was identified via [id number] to air. Proper needle position was confirmed [...] transferred to the recovery room in good condition.[facility]: Result Comment: Electronically Signed By: Ara FARFAN, Ilya\.deborah\Date and Time Signed: 12/10/22 15:40 [id number] Note [id number]:127[facility] 04-02-2022 NotePROCEDURE: XR HIP LT 2 3V WO PELVIS [...] Electronically authenticated by: JEAN-PAUL SALAS Date: 2022-04-02 15:09[facility]01-20-2022 Evaluation note* Encounter Date Diagnosis Assessment Notes Treatment Notes Treatment Clinical Notes Jul, COVID (ICD-10 - U07.1) Covid [...] Patient care instructions given in writting by [facility] Care At Home document. Reesio Other Evaluation note* Diagnosis Onset Date Resolution Status Asthma acute Burn acute CAD (coronary artery disease) acute GERD (gastroesophageal reflux disease) acute HTN (hypertension) acute Hyperlipidemia acute NSTEMI (non-ST elevated myocardial infarction) acute Stented coronary artery [facility] Work Phone: Evaluation note* Diagnosis Positive colorectal cancer screening using Cologuard test- Primary Loose stools Abnormal feces [facility] Diagnosis Coronary artery disease involving white mountain coronary artery of white mountain heart without angina pectoris History of PTCA Postsurgical percutaneous transluminal coronary angioplasty status NSTEMI, initial episode of care ([facility]) Hypertension, benign Essential hypertension, benign Mixed hyperlipidemia Gastrointestinal hemorrhage, unspecified gastrointestinal hemorrhage type Other cough Other fatigue HOPPER (dyspnea on exertion) Other dyspnea and respiratory abnormality Former cigarette smoker Personal history of tobacco use, presenting hazards to health documented in this encounter [facility] Work Phone: History general Narrative - Reported* Type Description Date Medical History restless leg syndrome Medical History hypertension Medical History Arthritis Surgical History appendectomy Surgical History colonoscopy Surgical History wisdom teeth extract Surgical History hip replacement Surgical History right shoulder arthritis remova l Surgical History carpal tunnel [facility] Swyzzle Other History of Present illness Narrative* The [...] medication regimen. He denies medication side effects. -[facility] DO Work Phone: InstructionsNot on filedocumented in this encounter [facility] Chief Complaint Feeling great * BARRY GALDAMEZ is being seen for a 3 month follow-up of. * 66-year-old gentleman who returns for follow-up and is doing well other complaints of profound fatigue. He is otherwise ambulatory, working doing routine activities without distress or problems. He has no angina or recurrent hospitalizations. In November of this year he sustained non-ST elevation IL with subsequent revascularization of the LAD and [...] of this year he sustained non-ST elevation IL with subsequent revascularization of the LAD and [...] In November 2021 he underwent non-ST elevation IL with primary revascularization of the LAD diagonal branch performed by Dr. Elieser Landers, utilizing a 2.5 x 34 mm [place] stent to the distal LAD, 2.75 x 18 mm [place] stent in the mid LAD, and a 2.25 x 18 mm [place] stent to the diagonal branch at the [...] In November 2021 he underwent non-ST elevation IL with primary revascularization of the LAD diagonal branch performed by Dr. Elieser Landers, utilizing a 2.5 x 34 mm Paco stent to the distal LAD, 2.75 x 18 mm Paco stent in the mid LAD, and a 2.25 x 18 mm Plainview stent to the diagonal branch at the [...] of congestive heart failure: Mother(V17.49, Z82.49) Status:Active Relationship Condition Age at Onset Recorded Date/T leandro Not Specified Congestive heart failure Unknown Hypertension Unknown Not Specified Diabetes mellitus Unknown father Unknown Not Specified Unknown Summary Purpose Advance Directives No Advanced Directives Records Found Advance Directive Response Recorded Date/ Time Advance Directives No May 12:47pm Chief Complaint and Reason for Visit Chief Complaint NSTEMI NSTEMI Reason for Visit Asthma Burn CAD (coronary artery disease) GERD (gastroesophageal reflux disease) HTN (hypertension) Hyperlipidemia NSTEMI (non-ST elevated myocardial infarction) Stented coronary artery Reason for Referral Specialty Diagnoses / Procedures Referred By Teena alas Referred To Contact Radiology Diagnoses NSTEMI, initial episode of care ([facility]) Other cough Other fatigue HOPPER (dyspnea on exertion) Procedures Nuclear Stress Test CHG MYOCARDIAL SPECT MULTIPLE STUDIES Addy Fuller DO [address] [facility], [address] [address] Referral ID Status Reason Start Date Expiration Date V isits Requested Visits Authorized [id number] Pending Review 10/22/2023 10/21/2024 5 5 Specialty Diagnoses / Procedures Referred By Teena alas Referred To Contact Cardiology Diagnoses Coronary artery disease involving white mountain coronary artery of white mountain heart without angina pectoris Procedures Follow Up In Cardiology Addy Fuller, DO [address] [facility] [address] [place] [address] Addy Fuller, DO [address] [facility], [address] [place] [address] Referral ID Status Reason Start Date Expiration Date V isits Requested Visits Authorized [id number] Authorized 10/22/2023 10/21/2024 1 1 Additional Source Comments REASON FOR VISIT (unrecogniz ed section and content) Reason Comments Colon Cancer Screening Positive Cologuar d, referred by Dr. Maddox Reason Comments Follow-up 6 month (unrecognized sect ion and content) No Status Records FoundNo Status Records FoundNo Status Records FoundNo Status Records FoundNo Status Records FoundNo Status Records FoundNo Status Records FoundNo Status Records Found INFORMATION SOURCE (unrecogn ized section and content) DATE CREATED AUTHOR 06/19/2022 [facility] DATE CREATED AUTHOR AUTHOR'S ORGANIZ ATION 03/27/2023 [facility] DATE CREATED AUTHOR AUTHOR'S ORGANIZ ATION 03/27/2023 [facility] DATE CREATED AUTHOR AUTHOR'S ORGANIZ ATION 10/11/2023 [facility] DATE CREATED AUTHOR AUTHOR'S ORGANIZ ATION 10/16/2023 [facility] DATE CREATED AUTHOR AUTHOR'S ORGANIZ ATION 10/20/2023 [facility] DATE CREATED AUTHOR AUTHOR'S ORGANIZ ATION [facility]/2023 [facility] DATE CREATED AUTHOR AUTHOR'S ORGANIZ ATION 10/28/2023 [facility] Care Teams (unrecognized sec tion and content) Team Status: Active Member Role Status Dates Joe Maddox DO Primary Care Provider Active Team Status: Inactive Member Role Status Dates Joe Maddox DO Primary Care Provider Active Start: September 30, 2023 End: October 01, 2023 Singh Mack DO Admit Provider Active Start: September 30, 2023 End: October 01, 2023 Tamara Swanson RN Other Provider Active Star t: September 30, 2023 End: October 01, 2023 Sol Fuller DO Other Provider Active Start : September 30, 2023 End: October 01, 2023 Sundar Argueta MD Other Provider Active Start: September 30, 2023 End: October 01, 2023 Addy Glass MD Other Provider Active Start: September 30, 2023 End: October 01, 2023 Barbara Rivas MD Other Provider Active St art: September 30, 2023 End: October 01, 2023 Joe Delatorre MD Other Provider Active Start: September 30, 2023 End: October 01, 2023 Emanuel Andrews APRN Other Provider Active Start : September 30, 2023 End: October 01, 2023 Bebe Basurto MD Other Provider Active Start: 2023 End: October 01, 2023 Van Kinney MD Other Provider Active Start: September 30, 2023 End: October 01, 2023 Eliud Tilley MD Other Provider Active Start: [facility] 2023 End: October 01, 2023 Helen Garcia IT RISK ANALYST- Other Provider Active Sta rt: September 30, 2023 End: October 01, 2023 Joyce Delacruz MD Other Provider Active Start: September 30, 2023 End: October 01, 2023 Ghazala Warren MD Attending Provider Active Start : September 30, 2023 End: October 01, 2023 Team Status: Active Member Role Status Dates Joe Maddox DO Primary Care Provider Active Start: September 30, 2023 Singh Mack DO Admit Provider Active Start: September 30, 2023 Juaquin Mckinley MD Other Provider Active Start: September 30, 2023 Tamara Swanson RN Other Provider Active Star t: September 30, 2023 Sol Fuller DO Other Provider Active Start : September 30, 2023 Sundar Argueta MD Other Provider Active Start: September 30, 2023 Addy Glass MD Other Provider Active Start: September 30, 2023 Barbara Rivas MD Other Provider Active St art: September 30, 2023 Joe Delatorre MD Other Provider Active Start: September 30, 2023 Emanuel Andrews APRN Other Provider Active Start : September 30, 2023 Bebe Basurto MD Other Provider Active Start: M arch 2023 Van Kinney MD Other Provider Active Start: September 30, 2023 Eliud Tilley MD Other Provider Active Start: M arch 2023 Helen Garcia , [facility]- Other Provider Active Sta rt: September 30, 2023 Joyce Delacruz MD Other Provider Active Start: September 30, 2023 Pooja Cortez APRN Attending Provider Active Start: September 30, 2023 Maintenance And Operations Supervisor Relationship Specialty Start Date End Date Joe Maddox DO [address] [place] [address] PCP - General Family Medicine 09/21/23 Maintenance And Operations Supervisor Relationship Specialty Start Date End Date Joe Maddox DO [address] [place] [address] PCP - General Family Medicine 10/22/23 Goals (unrecognized section and content) Goals may be documented in a n alternate section FOR RECORDS PERTAINING TO PATIENTS WHO ARE [...] BE BASED ON THE PRIMARY CLINICAL RECORDS. [employer] provides no warranty or guarantee of the accuracy or completeness of information in this document.
[2023-11-04] MEDS: LACTATED RINGER'S SOLUTION 1,000 ML 50 ML IV (08:58)
--- NOTE | 2023-11-04 09:26 | PM.GSPRC ---
Date of procedure: 11/04/23 Indications for Procedure: cologuard Positive Pre-op diagnosis: cologuard positive Post-op diagnosis: other (superficial gastritis without hemorrhage; esophagitis rule out Kelly's) Procedure: EGD with biopsy antrum and distal esophagus colonoscopy Anesthesia: MAC Surgeon: Inocencio Elias Procedure Summary: PROCEDURE: The patient was taken to the Endoscopy Suite, placed in the left lateral recumbent position, given IV sedation as above. The Olympus EGD scope was advanced under direct visualization into the posterior pharynx esophagus into the stomach and through the pylorus into the 1st 2nd 3rd and 4th portions of the duodenum which appeared grossly normal. A biopsy was taken in the duodenum hemostasis was maintained in what was thought to be the ampulla of Vater. The scope was returned to the stomach retroflexed on itself looking the GE junction and he had superficial gastritis without hemorrhage and there was some mild petechial hemorrhage noted. No ulcers polyps or tumors were seen. Biopsies were taken of the prepyloric area for H. pylori. The scope was then withdrawn to the distal esophagus where there is minimal esophagitis seen and two biopsies were taken at the GE junction and hemostasis maintained. The rest of the esophagus was normal the scope was withdrawn from the mouth. A rectal digital exam was performed. The sphincter tone was found to be normal. No rectal masses were appreciated.statement was smooth slightly enlarged without nodules. The Olympus video colonoscope was advanced under direct visualization to the rectum, sigmoid colon, descending colon, transverse colon and ascending colon to the ileocecal valve. The underside of the valve was seen. I cannot appreciate the entire cecum or the appendiceal lumen due to substandard prep. Commanded to return at a later date after taking two days of clear liquids and changing to a different prep. The scope was slowly withdrawn with air being desufflated as it was withdrawn. No gross tumors, polyps or diverticula were seenthe prep was suboptimal.. The patient tolerated the procedure well and went to the Recovery Area in satisfactory condition. I recommend the patient return within a month for repeat Colonoscopy with a different prep and two days of clear liquids due to substandard prep.anything small could've been missed. He is to call my office and we schedule a repeat colonoscopy with two days of clear liquids and a different bowel prep due to substandard prep. Estimated blood loss (mL): 0 Complications: No Condition: stable Disposition: PACU
[2023-11-04 10:21] VITALS: BP 115/79; PULSE 79; O2SAT 99
[2023-11-04 10:41] VITALS: BP 131/78; PULSE 76; O2SAT 94
[2023-11-06 09:49] LABS: H Pylori Tissue, Urease Negative
== END 2023-11-04 11:05 | disposition home or self-care (01) ==
PROVIDERS: PCP Family Medicine; Visit Provider Surgery
PROC: (CPT 43239; principal; 2023-11-04 09:35)
DX: R19.5 Other fecal abnormalities (principal); K29.60 Other gastritis without bleeding; K20.90 Esophagitis, unspecified without bleeding; R23.3 Spontaneous ecchymoses; I25.2 Old myocardial infarction; Z95.5 Presence of coronary angioplasty implant and graft; Z79.02 Long term (current) use of antithrombotics/antiplatelets; M19.90 Unspecified osteoarthritis, unspecified site; I48.91 Unspecified atrial fibrillation; E78.00 Pure hypercholesterolemia, unspecified; I10 Essential (primary) hypertension; Z53.8 Procedure and treatment not carried out for other reasons; G47.00 Insomnia, unspecified; Z96.642 Presence of left artificial hip joint; Z87.891 Personal history of nicotine dependence; Z91.199 Patient's noncompliance with other medical treatment and regimen due to unspecified reason
CPT/HCPCS: 43239; 45378; 87077; 88305; 99999; J1100; J2704

== ENCOUNTER 2023-12-11 09:00 | Emergency (ER) | payer MEDICARE, MEDICAID, SELFPAY ==
[2023-12-11 09:10] VITALS: BP 143/67; PULSE 69; TEMP 36.3; BMI 33.9
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
[2023-12-11] MEDS: WATER FOR IRRIGATION, STERILE 1,000 ML IRRIG.SOLN 1000 ML IRR (09:58)
[2023-12-11] MEDS: SILVER SULFADIAZINE 1% CREAM 25 GM TUBE 1 APPLIC TOPICAL (09:58)
[2023-12-11] MEDS: HYDROCODONE/ACET 5-325 MG TABLET 1 TAB PO (09:59)
== END 2023-12-11 11:16 | disposition home or self-care (01) ==
PROVIDERS: Emergency Provider Emergency Medicine; PCP Family Medicine
DX: T24.202A Burn of second degree of unspecified site of left lower limb, except ankle and foot, initial encounter (principal); X08.8XXA Exposure to other specified smoke, fire and flames, initial encounter
CPT/HCPCS: 99283

== ENCOUNTER 2023-12-21 16:19 | Outpatient (OUT) | payer MEDICARE, MEDICAID, SELFPAY | END 2023-12-21 16:20 | disposition home or self-care (01) | LOC: WC 16:19 | PROVIDERS: PCP Family Medicine; Visit Provider Physician Assistant | DX: L97.922 Non-pressure chronic ulcer of unspecified part of left lower leg with fat layer exposed (principal) | CPT/HCPCS: G0463 ==

== ENCOUNTER 2024-01-04 15:43 | Outpatient (OUT) | payer MEDICARE, MEDICAID, SELFPAY | END 2024-01-04 15:44 | disposition home or self-care (01) | LOC: WC 15:43 | PROVIDERS: PCP Family Medicine; Visit Provider Physician Assistant | DX: L97.922 Non-pressure chronic ulcer of unspecified part of left lower leg with fat layer exposed (principal); L84 Corns and callosities | CPT/HCPCS: G0463 ==

== ENCOUNTER 2024-01-25 16:03 | Outpatient (OUT) | payer MEDICARE, MEDICAID, SELFPAY ==
--- OUTSIDE RECORDS SUMMARY | 2024-01-25 16:15 | XMS_ITS ---
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 Name Role Phone Varsha Joe Lam Unavailable Unavailable Unavailable Jocelyn Diaz Unavailable MISC, DR WEATHERS Admitting Unavailable [facility], DR WEATHERS Attending Unavailable EL PASO, DR KIRAN Primary Care Unavailable MARKS, DR NATACHA Campoverde Consulting Unavailable [facility], DR WEATHERS Consulting Unavailable EL PASO, DR KIRAN Admitting Unavailable EL PASO, DR KIRAN Attending Unavailable EL PASO, DR KIRAN Referring Unavailable [facility] Primary Care Unavaila ble EL PASO, DR KIRAN Consulting Unavailable EL PASO, DR KIRAN Admitting Unavailable EL PASO, DR KIRAN Attending Unavailable EL PASO, DR KIRAN Primary Care Unavailable EL PASO, DR KIRAN Consulting Unavailable ZIEBER, DR JEAN-PAUL Mccann Consulting Unavailable HOUSE, DR KIRAN Admitting Unavailable HOUSE, DR KIRAN Attending Unavailable EL PASO, DR KIRAN Primary Care Unavailable EL PASO, DR KIRAN Consulting Unavailable KHAIEBCISCO, DR JEAN-PAUL Mccann Consulting Unavailable JOHNNY, EMANUEL Admitting Unavailable JOHNNY, EMANUEL Attending Unavailable JONNY, DR ADDY Davis Consulting Unavailabl e HOUSE, DR KIRAN Primary Care Unavailable JOHNNY, EMANUEL Consulting Unavailable HOUSE, DR KIRAN Primary Care Unavailable HAY, DR CABEZAS Admitting Unavailable HAY, DR CABEZAS Attending Unavailable HAY, DR CABEZAS Consulting Unavailable RHIANNA, SANDER Consulting Unavailable [facility] Primary Care Unavaila ble PAY, DR KOTHARI Admitting Unavailable PAY, DR KOTHARI Attending Unavailable PAY, DR KOTHARI Consulting Unavailable ANAND, LINDA Consulting Unavailable [facility] Primary Care Unavaila ble JAMSHID SOLIZ Consulting Unavailable BHARGAV, DR ELIESER De La Cruz Admitting Unavailabl e BHARGAV, DR ELIESER De La Crzu Attending Unavailabl e STRAWSER, ABRAN Consulting Unavailable Jonny, Dr. Addy Cartagena Referring Unava ilable Varsha, Dr. Joe Brown Primary Care Unava ilable Jonny, Dr. Addy Cartagena Attending Unava ilable Emanuel Andrews Attending Unavailable Darryl, Emanuel Referring Unavailable Varsha, Dr. Joe Brown [facility], Dr. Addy Cartagena Attending Winifred Fuller, Dr. Addy Cartagena Referring Winifred Maddox, Dr. Joe Brown Primary Care DO Joe Nicole Primary Care Provider [phone] DO Singh Mack Admit Provider SANTHOSH Swanson Other Provider Unavailable DO Slo Fuller Other Provider MD Sundar Argueta Other Provider [phone] MD Addy Glass Other Provider MD Barbara Rivas Other Provider [phone] MD Joe Delatorre Other Provider ZEYNEP Andrews Other Provider MD Bebe Basurto Other Provider MD Van Kinney Other Provider MD Eliud Tilley Other Provider Radha [facility] Helen Tapia Other Provider MD Joyce Delacruz Other Provider MD Ghazala Warren Attending Provider Joe Maddox DO Primary Care Provider MARIETTA BRICE Attending Unavailable JOE MADDOX Referring Unavailable JOE MADDOX Primary Care Unavailable Joe Maddox DO Primary Care Provider DO Sander Elias Attending Provider [phone] Sander Elias Admitting Unavailable Sander Elias Attending Unavailable Joe Maddox Primary Care Unavailable Tamara Swanson Consulting Unavailable Singh Mack Admitting Unavailable Ghazala Warren Attending Unavailable Joe Maddox Primary Care Unavailable Sol Fuller Consulting Unavailable Sundar Argueta Consulting Unavailable Addy Glass Consulting Unavail able Barbara Rivas Consulting Unavailable Joe Delatorre Consulting Unavailab Emanuel De La Rosa Consulting Unavailable Bebe Basurto Consulting Unavailable Nirmal, Van Reza Consulting Unavailab Eliud Wang Consulting Unavailable Helen Garcia Consulting Unavailable Joyce Delacruz Consulting Unavailable RUPESH AZAR Attending Unavailable JONNY, ADDY S Referring Unavailable HOUSE, JOE P Primary Care Unavailable JONNY, ADDY S Referring Unavailable HOUSE, JOE P Primary Care Unavailable JONNY, ADDY S Referring Unavailable HOUSE, JOE P Primary Care Unavailable [...] P Primary Care Unavailable HOUSE, JOE P Admitting Unavailable HOUSE, JOE P Attending Unavailable HOUSE, JOE P Attending Unavailable HOUSE, JOE P Primary Care Unavailable Mummert DO, Ken Attending Unavailable HOUSE, JOE P Primary Care Unavailable HOUSE, JOE P Attending Unavailable Mummert DO, Ken Consulting Unavailable HOUSE, JOE P Primary Care Unavailable HOUSE, JOE P Admitting Unavailable HOUSE, JOE P Primary Care Unavailable HOUSE, JOE P Primary Care Unavailable Gibran Barker MD Attending Unavailable HOUSE, JOE P Attending Unavailable HOUSE, JOE P Primary Care Unavailable JONNY, ADDY S Attending Unavailable HOUSE, JOE P Primary Care Unavailable Ariana Urena Attending Unavailable CLAUDE Urena Admitting Unavailabl e HOUSE, JOE P Referring Unavailable Neymar Willingham Attending Unavailable Neymar Willingham Referring Unavailable MD Neymar Willingham Admitting Unavailable Neymar Willingham Attending Unavailable Neymar Willingham Referring Unavailable MD Neymar Willingham Admitting Unavailable García Castro Admitting Unavailable García Castro Attending Unavailable Hui Costa Consulting Unavailable Neel Robin Attending Unavailable Erwin VALADEZ Admitting Unavailable [place]ui Costa Consulting Unavailable MD Hui Costa Consulting Unavailab Hui Taylor Consulting Unavailable Jaqui Biswas Attending Unavaila Ariana Mcwilliams Attending Unavailable CLAUDE Urena Admitting Unavailabl e HOUSE, JOE Lam Referring Unavailable García Castro Attending Unavailable DO García Castro Admitting UnavailJOE Tijerina Referring Unavailable CLAUDE Urena Admitting UnavailAriana Sands Attending Unavailable RAJESH JOEL Referring Unavailable CLAUDE Urena Admitting UnavailAriana Sands Attending Unavailable JOE MADDOX Referring Unavailable Allergies Allergy Classification Reported Allergen(s) Allergy Type Date of Onset Reaction(s) Facility (18 sources) Aspirin; Translations: [aspirin] Drug Allergy 05-25-2023 GI Bleeding [facility] (1 source) gabapentin; Translations: [gabapentin] Drug Allergy [facility] Repository Encounters Encounter Date Encounter Type Care Provider Facility Start: 12-17-2023 End: 12-18-2023 ambulatory JOE MADDOX Facility:[facility] Start: 12-16-2023 End: 12-17-2023 ambulatory JEO AMDDOX Facility:[facility] Start: 11-30-2023 End: 11-30-2023 ambulatory Jaqui Biswas Facility:[facility] Start: 11-24-2023 End: 11-25-[address] [facility] Start: 11-24-2023 End: 11-24-2023 Subsequent hospital visit by physician Patricia Taylor 1 [facility] Start: 11-23-2023 End: 11-24-[address] [facility] Start: 11-23-2023 End: 11-23-2023 Subsequent hospital visit by physician Patricia Taylor Admin Room 1 [facility] Comment on above: NSTEMI, initial epis ode of care (Multi); Other cough; Other fatigue; HOPPER (dyspnea on exertion) Start: 11-18-2023 End: 11-18-2023 ambulatory RUPESHAlessandro SUMMERSANDREYM Not Available Start: 11-17-2023 End: 11-18-2023 ambulatory JOE MADDXO Facility:[facility] Start: 11-09-2023 End: 11-10-2023 ambulatory JOE MADDOX Facility:[facility] Start: 11-04-2023 End: 11-04-2023 ambulatory Sander Elias Facility:[facility] Start: 11-04-2023 End: 11-04-2023 ambulatory DO Joe Maddox Work Phone: [facility] Work Phone: Start: 11-04-2023 End: 11-04-2023 Departed Referred DO Joe Maddox Work Phone: [facility] Start: 10-22-2023 End: 10-22-2023 Office outpatient visit 25 minutes Addy Fuller DO Work Phone: [facility] Comment on above: 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); Hypertension, benign; Mixed hyperlipidemia; Gastrointestinal hemorrhage, unspecified gastrointestinal hemorrhage type; Other cough; Other fatigue; HOPPER (dyspnea on exertion); Former cigarette smoker Start: 10-22-2023 End: 10-22-2023 ambulatory [facility] Start: 10-15-2023 End: 10-15-2023 ambulatory García Castro Facility:[facility] Start: 10-15-2023 End: 10-15-2023 ambulatory García Castro Facility:[facility] Start: 10-09-2023 End: 10-09-2023 ambulatory [facility] Start: 10-09-2023 End: 10-09-2023 Office outpatient new 30 minutes Marietta Lillian Brice [employer] Work Phone: [facility] Comment on above: Positive colorectal cancer screening using Cologuard test (Primary Dx); Loose stools Start: 10-05-2023 End: 10-06-2023 ambulatory JOE MADDOX Facility:[facility] Start: 09-30-2023 Non-patient / Non-visit DO Melissa gusman House Work Phone: [facility] Work Phone: Start: 09-30-2023 End: 10-01-2023 Evaluation and management of inpatient Tamara Mischler Facility:[facility] Start: 09-30-2023 End: 10-01-2023 Evaluation and management of inpatient DO Joe House Work Phone: [facility] [place] [facility] Work Phone: Start: 09-29-2023 End: 09-30-2023 ambulatory JOE P HOUSE Facility:[facility] Start: 09-23-2023 ambulatory Ariana Urena [facility] y:Moe Start: 09-22-2023 End: 09-23-2023 ambulatory Hui Costa Facility:[facility] Start: 09-17-2023 End: 09-18-2023 ambulatory JOE P HOUSE Facility:[facility] Start: 08-27-2023 End: 08-28-2023 ambulatory JOE P VARSHA Facility:[facility] Start: 07-31-2023 End: 07-31-2023 ambulatory Ariana Urena Facility:[facility] Start: 07-21-2023 End: 07-26-2023 ambulatory JOE P HOUSE Facility:[facility] Start: 07-14-2023 End: 07-15-2023 ambulatory JOE P VARSHA Facility:[facility] Start: 06-25-2023 End: 06-25-2023 ambulatory Neymar Willingham Facility:[facility] Start: 06-05-2023 End: 06-05-2023 ambulatory Ariana Urena Facility:[facility] Start: 05-26-2023 End: 05-27-2023 ambulatory JOE P HOUSE Facility:[facility] Start: 05-19-2023 End: 05-19-2023 ambulatory Neymar Willingham Facility:[facility] Start: 04-08-2023 End: 04-08-2023 ambulatory PA-C Ariana Urena Facility:[facility] Start: 03-26-2023 Office outpatient vi sit 25 minutes Joe P House Work Phone: [facility] [facility] DO Work Phone: Start: 03-26-[address] Addy Fuller Facility: Start: 03-09-2023 Rx Renewal Joe P Hous e Work Phone: [facility] [address] DO Work Phone: Start: 01-09-2023 End: 01-09-2023 ambulatory CLAUDE Urena Facility:[facility] Start: 10-29-2022 ambulatory Emanuel Andrews Facility:1 [id number] Start: 09-18-2022 Office consultation new/estab patient 60 min Joe P House Work Phone: [facility] [address] DO Work Phone: Start: 09-18-2022 Office outpatient vi sit 25 minutes Joe P House Work Phone: [facility] 250 DO Work Phone: Start: 09-18-[address] Addy Fuller Facility: Start: 05-22-2022 End: 05-23-[address] DOCTOR OCAMPO Facility:[facility] Start: 04-25-2022 End: 04-25-[address] JOE MADDOX Facility:[facility] Start: 04-23-2022 End: 04-24-[address] JOE MADDOX Facility:[facility] Start: 04-02-2022 End: 04-03-[address] JOE MADDOX Facility:[facility] Start: 03-19-2022 Office outpatient vi sit 25 minutes Joe P House Work Phone: [facility] [facility] DO Work Phone: Start: 02-10-2022 End: 02-11-[address] JOE MADDOX Facility:[facility] Start: 12-17-2021 End: 02-19-2022 ambulatory EMANUEL TURNER Facility:[facility] Start: 12-09-2021 Transitional care paradise lazaro srvc 14 day discharge Joe P House Work Phone: [facility] [facility] DO Work Phone: Start: 11-23-2021 End: 11-23-2021 ambulatory [facility] Facility[facility] Start: 10-05-2021 End: 10-05-2021 ambulatory [facility] Facility[facility] Start: 08-08-2021 End: 08-08-2021 ambulatory Jocelyn Diaz Other [employer] [employer] Other Start: 08-08-2021 Office outpatient ne w 20 minutes Jocelyn Diaz [facility] Patient encounter status Joe Lam Briteseed Work Phone: [facility] 250 DO Work Phone: End: 03-26-2023 Patient encounter status Joe Maddox Work Phone: [facility] 250 DO Work Phone: Medical Equipment Procedure Code Equipment Code Equipment Origin al Text Equipment Identifier Dates CL STENT PACO 2. 25 X 18 FDA Start: 11-25-2021 Drug-eluting coronary artery stent, [id number] lymer-coated ()[id number] FDA Start: 11-25-2021 Drug-eluting coronary artery stent, [id number] lymer-coated ()[id number] FDA Start: 11-25-2021 CL STENT PACO 2. 25 X 18 FDA Start: 11-25-2021 Immunizations Immunization Date Immunization Notes Care Provider Fa [facility] 10-05-2021 diphtheria, tetanus toxoids and pertussis vaccine Joe Lam Briteseed Work Phone: [facility] 250 DO Work Phone: 05-20-2021 Moderna COVID-19 Vaccine 100 MCG/0.5ML Intramuscular Suspension Joe Lam Briteseed Work Phone: [facility] 250 DO Work Phone: 04-03-2021 Pfizer-BioNTech COVID-19 Vacc 30 MCG/0.3ML Intramuscular Suspension Joe Lam Briteseed Work Phone: [facility] 250 DO Work Phone: 03-13-2021 Pfizer-BioNTech COVID-19 Vacc 30 MCG/0.3ML Intramuscular Suspension Joe Lam Briteseed Work Phone: [facility] 250 DO Work Phone: 01-17-2021 Pfizer Purple Cap SARS-CoV-2 Addy Fuller DO Work Phone: [facility] Work Phone: 01-17-2021 Pfizer-BioNT COVID-1 9 Vac-Lawson 30 MCG/0.3ML Intramuscular Suspension Joe Lam Briteseed Work Phone: [facility] [place] 250 DO Work Phone: Comment on above: Series: 12-18-2020 Pfizer Purple Cap SARS-CoV-2 Addy Fuller DO Work Phone: [facility] Work Phone: 12-18-2020 Pfizer-BioNT COVID-1 9 Vac-Lawson 30 MCG/0.3ML Intramuscular Suspension Joe Lam Briteseed Work Phone: [facility] [place] 250 DO Work Phone: Comment on above: Series: Medications Current Medications Medication Drug Class(es) Dates Sig (Normalized) Sig (Original) [id number] 200 actuat albuterol 0.09 mg/actuat metered dose inhaler (19 sources) beta2-Adrenergic Agonist Start: 11-23-2021 take 2.5 [...] 2 puffs every 4 hours if needed. Active take 2 puff(s) by in halation [...] DO Active aspirin 81 mg chewable tablet (3 sources) Platelet Aggregation Inhibitor, Nonsteroidal Anti-inflammatory Drug Start: 11-26-2021 take 1 tablet by mouth once daily Aspirin (Children's Aspirin) 81 mg Tablet,Chewable Active 81 MG PO Daily 0 November 26, 2021 12:00am atorvastatin 80 mg oral tablet (18 sources) HMG-CoA Reductase Inhibitor Start: 11-26-2021 End: 10-21-2024 take 1 tablet by mouth once daily at bedtime atorvastatin (Lipitor) 80 mg tablet Indications: Mixed hyperlipidemia Take 1 tablet (80 mg) by mouth once daily at bedtime. 90 tablet 3 10/22/2023 10/21/2024 Active 120 actuat budesonide 0.16 mg/actuat / formoterol fumarate 0.0048 mg/actuat / glycopyrrolate 0.009 mg/actuat metered dose inhaler (6 sources) Corticosteroid, beta2-Adrenergic Agonist Start: 10-20-2023 take 2 puff(s) by inhalation twice daily Breztri Aerosphere 160-9-4.8 mcg/actuation HFA aerosol inhaler Inhale 2 puffs 2 times a day. 10/20/2023 Active clopidogrel 75 mg oral tablet (12 sources) P2Y12 Platelet Inhibitor Start: 09-30-2023 take 1 tablet by mouth once daily Clopidogrel (Plavix) 75 mg tablet Active 75 MG PO Daily September 30, 2023 12:00am Start: 03-26-2023 End: 10-21-2024 take 1 tablet by mouth five times weekly clopidogrel (Plavix) 75 mg tablet Indications: History of PTCA , NSTEMI, initial episode of care (Multi) Take 1 tablet (75 mg) by mouth 5 times a week. One tablet taken by mouth, Thursday thru Thursday 60 tablet 3 10/22/2023 10/21/2024 Active gabapentin 800 mg oral tablet (5 sources) Anti-epileptic Agent Start: 10-03-2023 gabapenti n [...] 10/07/2023 Active meloxicam 15 mg oral tablet (19 sources) Nonsteroidal Anti-inflammatory Drug Start: 11-23-2021 take 15 mg by mouth once daily Meloxicam Active 15 MG PO Daily November 23, 2021 12:00am Meloxicam Active 24 hr metoprolol succinate 25 mg extended release oral tablet (18 sources) beta-Adrenergic Svetlana Start: 10-01-2023 take 1 [...] mg Active nitroglycerin 0.4 mg sublingual tablet (17 sources) Nitrate Vasodilator Start: 2021 End: 2023 nitroglycerin (Nitrostat) 0.4 mg SL tablet Indications: History of PTCA , NSTEMI, initial episode of care (Multi) Place 1 tablet (0.4 mg) under the tongue every 5 minutes if needed for chest pain (Report to the ER or call 911 after third dose.) for up to 15 days. 90 tablet 1 10/22/2023 Active oseltamivir 75 mg oral capsule (1 [...] 09/23/2023 Active prasugrel 10 mg oral tablet (5 sources) P2Y12 Platelet Inhibitor Start: 2021 take [...] 10/09/2023 Active tadalafil 20 mg oral tablet (19 sources) Phosphodiesterase 5 Inhibitor Start: 2021 take 20 mg by mouth once daily Tadalafil Active 20 MG PO Daily November 23, 2021 12:00am Start: 11-23-2021 End: 11-23-2021 Tadalafil Discontinued MG TA BLET November 23, 2021 12:00am November 23, 2021 10:31pm traMADol hydrochloride 50 mg oral tablet (19 sources) Opioid Agonist Start: 11-23-2021 take 50 mg by mouth twice daily Tramadol Active 50 MG PO Twice daily November 23, 2021 12:00am traMADol HCl Act marichuy traZODone hydrochloride 50 mg oral tablet (18 sources) Serotonin Reuptake Inhibitor Start: 11-23-2021 take 50 mg by mouth once daily at bedtime Trazodone Active 50 MG PO Daily at bedtime November 23, 2021 12:00am ubidecarenone 300 mg oral capsule (2 sources) Start: 11-26-2021 Coenzyme Q10 ( Co Q-10) 300 mg capsule Active 300 MG PO Daily 30 November 26, 2021 12:00am valsartan 160 mg oral tablet (20 sources) Angiotensin 2 Receptor Svetlana Start: 09-30-2023 [...] Valsartan Discontinued 80 MG PO Every evening November 26, 2021 12:00am September 30, 2023 2:52am End: 10-22-2023 take 2 tablets by mouth once daily valsartan (Diovan) 80 mg tablet Take 2 tablets (160 mg) by mouth once daily. 0 10/22/2023 Discontinued (Therapy completed) Completed/Discontinued Medications Medication Drug Class(es) Dates Sig (Normalized) Sig (Original) regadenoson (Lexiscan) injection 0.4 mg (1 source) Start: 11-23-2023 End: 11-23-2023 0.4 mg, intravenous, Once, On Thu11/23/23 at 1045, For 1 dose Tc-99m tetrofosmin (Myoview) injection 30 millicurie (2 sources) Start: 11-24-2023 End: 11-24-2023 30 millicurie, intravenous, Once in imaging, Starting on Thu11/24/23 at 1128, For 1 dose, Administer 45 to 90 minutes prior to imaging unless otherwise indicated. Start: 11-23-2023 End: 11-23-2023 30 millicurie, intravenous, Once in imaging, Starting on Thu11/23/23 at 1045, For 1 dose, Administer 45 to 90 minutes prior to imaging unless otherwise indicated. ubidecarenone 100 mg / vitam in e 5 unt oral capsule (6 sources) Co Q 10 100 MG O ral Capsule TAKE DIRECTED. Quantity: 0 Refills: 0 Ordered: 18-Sep-2022 DO Active Payers Date Payer Category Payer Self-pay [id number] 2023 Medicare [employer] MEDICARE UHC MEDICARE DUAL COMPLETE [id number] 2023-Present [phone] [address] [address] [place] [address] [id number] 2023 Medicare [id number] 2022 Private Health Insurance [facility] DUAL COMPLETE [facility] DUAL COMPLETE [id number] 2022-Present [address] [address] [place] [address] [id number] [id number] 2021 Unknown [id number] 2.16.840.1.646173.19 2020 Medicaid [id number]. 1.13.424. 2.7.3.657755.315 2017 Unknown [id number] 1959 Medicaid [id number] 2.16.840.1.534132.19 1959 Medicare [id number] 1955 Unknown [id number] 2.16.840.1.406710.3.579. 2.593 1955 Unknown [id number] 2.16.840.1.617987.3.579. 2.593 1955 Unknown [id number] 2.16.840.1.763392.3.579. 2.593 1955 Unknown [id number] 2.16.840.1.271138.3.579. 2.593 1955 Unknown [id number] 2.16.840.1.303997.3.579. 2.593 1955 Unknown [id number] 2.16.840.1.966892.3.579. 2.593 1955 Unknown [id number] 2.16.840.1.671373.3.579. 2.593 1955 Unknown [id number] 2.16.840.1.525247.3.579. 2.593 1955 Unknown [id number] 2.16.840.1.844423.3.579. 2.356 1955 Unknown [id number] 2.16.840.1.666322.3.579. 2.356 1955 Unknown [id number] 2.16.840.1.129846.3.579. 2.356 1955 Unknown [id number] 2.16.840.1.273000.3.579. 2.1286 1955 Unknown [id number] 2.16.840.1.645126.3.579. 2.1259 1955 Unknown [id number] 2.16.840.1.212312.3.579. 2.1246 1955 Unknown [id number] 2.16.840.1.698659.3.579. 2.1246 1955 Unknown [id number] 2.16.840.1.981899.3.579. 2.1246 1955 Unknown [id number] 2.16.840.1.960232.3.579. 2.1246 1955 Unknown [id number] 2.16.840.1.801613.3.579. 2.1246 1955 Unknown [id number] 2.16.840.1.466573.3.579. 2.718 1955 Unknown [id number] 2.16.840.1.304412.3.579. 2.8 1955 Unknown [id number] 2.16.840.1.799830.3.579. 2. 1955 Unknown [id number] 2.16.840.1.705164.3.579. 2.8 1955 Unknown [id number] 2.16.840.1.836039.3.579. 2. 1955 Unknown [id number] 2.16.840.1.531936.3.579. 2. 1955 Unknown [id number] 2.16.840.1.408510.3.579. 2. 1955 Unknown [id number] 2.16.840.1.544942.3.579. 2. 1955 Unknown [id number] 2.16.840.1.242926.3.579. 2. 1955 Unknown [id number] 2.16.840.1.531984.3.579. 2. 1955 Unknown [id number] 2.16.840.1.398980.3.579. 2. 1955 Unknown [id number] 2.16.840.1.019319.3.579. 2.1244 1955 Unknown [id number] 2.16.840.1.633701.3.579. 2. 1955 Unknown [id number] 2.16.840.1.989704.3.579. 2. 1955 Unknown [id number] 2.16.840.1.730429.3.579. 2. 1955 Unknown [id number] 2.16.840.1.373861.3.579. 2. 1955 Unknown [id number] 2.16.840.1.893424.3.579. 2.727 1955 Unknown [id number] 2.16.840.1.510371.3.579. 2.727 1955 Unknown [id number] 2.16.840.1.180359.3.579. 2.727 1955 Unknown [id number] 2.16.840.1.243391.3.579. 2.727 1955 Unknown [id number] 2.16.840.1.512887.3.579. 2.727 1955 Unknown [id number] 2.16.840.1.066564.3.579. 2.727 1955 Unknown [id number] 2.16.840.1.225045.3.579. 2.727 Unknown Unknown [id number] 2.16.840.1.196865.3.579. 2.531 Unknown [id number] 2.16.840.1.532483.3.579. 2.531 Plan of Treatment Date Care Activity Detail Author Start: 10-06-2031 DTaP,Tdap and Td Vac cines (2 - Tdap) DTaP,Tdap and Td Vaccines (2 - Tdap) [facility] Start: 10-06-2031 DTaP/Tdap/Td Vaccine s (2 - Tdap) DTaP/Tdap/Td Vaccines (2 - Tdap) [facility] Start: 10-08-2024 Adult BMI Screening Adult BMI Screen ing [facility] Start: 10-08-2024 Tobacco Screening Tobacco Screening [facility] Start: 02-09-2024 End: 02-09-2024 Patient encounter procedure 02/09/2024 1:40 PM EDT Office Visit [facility] [address] [facility] [address] [place] [address] Addy Fuller DO [address] [facility] [address] [place] [address] [facility] Start: 11-24-2023 End: 11-24-2023 Patient encounter procedure 11/24/2023 11:45 AM EDT Appointment [place] [address] [facility] hospital Start: 11-24-2023 Subsequent hospital visit by physician 11/24/2023 11:30 AM EDT Hospital Encounter [place] [id number] [facility] Start: 10-22-2023 End: 10-21-2025 NM Heart Perfusion W stress and W radionuclide IV Nuclear Stress Test Cardiac Nuclear Medicine Routine NSTEMI, initial episode of care ([facility]) Other cough Other fatigue HOPPER (dyspnea on exertion) Expected: 10/22/2023 (Approximate), Expires: 10/21/2025 [facility] Service Area Work Phone: Comment on above: Expected: 10/22/2023 (Approximate), Expires: 10/21/2025 Start: 10-22-2023 FUV, Provider: Addy Fuller, Status: Pen, Time: 10:50 AM FUV, Provider: Addy Fuller, Status: Pen, Time: 10:50 AM [facility] 250 DO Work Phone: Start: 10-10-2023 [facility] Start: 10-09-2023 [facility] Start: 10-08-2023 [facility] Start: 10-07-2023 [facility] Start: 10-06-2023 [facility] Start: 10-05-2023 [facility] Start: 10-04-2023 [facility] Start: 10-03-2023 [facility] Start: 10-02-2023 [facility] Start: 09-30-2023 Fluoroscopy of Left Heart using Low Osmolar Contrast Fluoroscopy of Left Heart using Low Osmolar Contrast [facility] Start: 09-30-2023 Fluoroscopy of Multi ple Coronary Arteries using Low Osmolar Contrast Fluoroscopy of Multiple Coronary Arteries using Low Osmolar Contrast [facility] Start: 09-30-2023 Measurement of Cardi ac Sampling and Pressure, Left Heart, Percutaneous Approach Measurement of Cardiac Sampling and Pressure, Left Heart, Percutaneous Approach [facility] Start: 09-30-2023 Referral to manager special events [facility] Start: 09-30-2023 Hospital admission [facility] Start: 09-30-2023 [facility] Start: 05-27-2023 FUV, Provider: Emanuel Smalls, Status: Pen, Time: 1:30 PM FUV, Provider: Emanuel Smalls, Status: Pen, Time: 1:30 PM [facility] 250 DO Work Phone: Start: 03-26-2023 FUV, Provider: Addy Fuller, Status: Pen, Time: 11:20 AM FUV, Provider: Addy Fuller, Status: Pen, Time: 11:20 AM [facility] 250 DO Work Phone: Start: 03-20-2023 COVID-19 Vaccine ( season) COVID-19 Vaccine ( season) [facility] Start: 10-29-2022 FUV, Provider: Emanuel Smalls, Status: Pen, Time: 1:00 PM FUV, Provider: Emanuel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 PlasmaOrdered By: Maya Read on 10-01-2023 Chloride [Moles/Vol] 102 mmol/L 98-107 [facility] Complete Blood Count Auto Di ffon 10-01-2023 Basophils (Bld) [#/Vol] 0.1 10*3/uL Normal 0.0-0.2 The [facility] Comment on above: Order Comment: WAIT TO DRAW RN BUST AT THE MOMENT WOULD LIKE TO BE PRESENT Result Comment: PERF ORMED BY: [place] [address] PATHOLOGIST [employer] SUPERVISOR KAREN CORONADO M.D. Performed By: #### B MP, CBC #### [facility] [address] [place] [address] Basophils/100 WBC (Bld) 0.6 % Normal . T he [facility] Comment on above: Order Comment: WAIT TO DRAW RN BUST AT THE MOMENT WOULD LIKE TO BE PRESENT Performed By: #### B MP, CBC #### [facility] [address] [place] [address] Eosinophils (Bld) [#/Vol] 0.3 10*3/uL Normal 0.0-0.45 [facility] Comment on above: Order Comment: WAIT TO DRAW RN BUST AT THE MOMENT WOULD LIKE TO BE PRESENT Performed By: #### B MP, CBC #### [address] Eosinophils/100 WBC (Bld) 2.3 % Normal . [facility] Comment on above: Order Comment: WAIT TO DRAW RN BUST AT THE MOMENT WOULD LIKE TO BE PRESENT Performed By: #### B MP, CBC #### [address] Erythrocyte distribution width (RBC) [Ratio] 14.4 % Normal 12.0-14.8 [facility] Comment on above: Order Comment: WAIT TO DRAW RN BUST AT THE MOMENT WOULD LIKE TO BE PRESENT Performed By: #### B MP, CBC #### [address] Hematocrit (Bld) [Volume fraction] 36.7 % Low 38.8-50.0 [facility] Comment on above: Order Comment: WAIT TO DRAW RN BUST AT THE MOMENT WOULD LIKE TO BE PRESENT Performed By: #### B MP, CBC #### [address] Hemoglobin (Bld) [Mass/Vol] 12.0 g/dL Low 13.0-17.0 [facility] Comment on above: Order Comment: WAIT TO DRAW RN BUST AT THE MOMENT WOULD LIKE TO BE PRESENT Performed By: #### B MP, CBC #### [address] Lymphocytes (Bld) [#/Vol] 2.4 10*3/uL Normal 1.00-4.8 [facility] Comment on above: Order Comment: WAIT TO DRAW RN BUST AT THE MOMENT WOULD LIKE TO BE PRESENT Performed By: #### B MP, CBC #### [address] Lymphocytes/100 WBC (Bld) 21.1 % Normal . [facility] Comment on above: Order Comment: WAIT TO DRAW RN BUST AT THE MOMENT WOULD LIKE TO BE PRESENT Performed By: #### B MP, CBC #### [address] MCH (RBC) [Entitic mass] 26.1 pg Low 27.5-35.2 [facility] Comment on above: Order Comment: WAIT TO DRAW RN BUST AT THE MOMENT WOULD LIKE TO BE PRESENT Performed By: #### B MP, CBC #### [address] MCV (RBC) [Entitic vol] 80.0 fL Low 83.5-101 [facility] Comment on above: Order Comment: WAIT TO DRAW RN BUST AT THE MOMENT WOULD LIKE TO BE PRESENT Performed By: #### B MP, CBC #### [address] Mean Corpuscular HGB Conc 32.6 g/dL Normal 32.5-35.6 [facility] Comment on above: Order Comment: WAIT TO DRAW RN BUST AT THE MOMENT WOULD LIKE TO BE PRESENT Performed By: #### B MP, CBC #### [address] Monocytes (Bld) [#/Vol] 0.9 10*3/uL High 0.0-0.8 [facility] Comment on above: Order Comment: WAIT TO DRAW RN BUST AT THE MOMENT WOULD LIKE TO BE PRESENT Performed By: #### B MP, CBC #### [address] Monocytes/100 WBC (Bld) 8.2 % Normal . [facility] Comment on above: Order Comment: WAIT TO DRAW RN BUST AT THE MOMENT WOULD LIKE TO BE PRESENT Performed By: #### B MP, CBC #### [address] Neutrophils (Bld) [#/Vol] 7.6 10*3/uL Normal 1.8-7.7 [facility] Comment on above: Order Comment: WAIT TO DRAW RN BUST AT THE MOMENT WOULD LIKE TO BE PRESENT Performed By: #### B MP, CBC #### [address] Neutrophils/100 WBC (Bld) 67.8 % Normal . [facility] Comment on above: Order Comment: WAIT TO DRAW RN BUST AT THE MOMENT WOULD LIKE TO BE PRESENT Performed By: #### B MP, CBC #### [address] NRBC% 0.0 /100{WBC} Normal 0-0.5 The [facility] Comment on above: Order Comment: WAIT TO DRAW RN BUST AT THE MOMENT WOULD LIKE TO BE PRESENT Performed By: #### B MP, CBC #### [address] Platelet mean volume (Bld) [Entitic vol] 6.9 fL Normal 6.6-10.1 The [facility] Comment on above: Order Comment: WAIT TO DRAW RN BUST AT THE MOMENT WOULD LIKE TO BE PRESENT Performed By: #### B MP, CBC #### [address] Platelets (Bld) [#/Vol] 317 10*3/uL Normal 150-450 [facility] Comment on above: Order Comment: WAIT TO DRAW RN BUST AT THE MOMENT WOULD LIKE TO BE PRESENT Performed By: #### B MP, CBC #### [address] RBC (Bld) [#/Vol] 4.59 10*6/uL Normal 3.90-5.60 [facility] Comment on above: Order Comment: WAIT TO DRAW RN BUST AT THE MOMENT WOULD LIKE TO BE PRESENT Performed By: #### B MP, CBC #### [address] WBC (Bld) [#/Vol] 11.2 10*3/uL High 4.1-10.5 [facility] Comment on above: Order Comment: WAIT TO DRAW RN BUST AT THE MOMENT WOULD LIKE TO BE PRESENT Performed By: #### B MP, CBC #### [address] Creatinine [Mass/volume] in Serum or PlasmaOrdered By: Maya Read on 10-01-2023 Creatinine [Mass/Vol] 0.88 mg/dL 0.70-1.30 [facility] Eosinophils Auto (Bld) [#/Vo l]Ordered By: Maya Read on 10-01-2023 Eosinophils (Bld) [#/Vol] 0.3 10*3/uL 0.0-0.45 [facility] Eosinophils/100 WBC Auto (Bl d)Ordered By: Maya Read on 10-01-2023 Eosinophils/100 WBC (Bld) 2.3 % . [facility] Erythrocyte distribution wid th Auto (RBC) [Ratio]Ordered By: Maya Read on 10-01-2023 Erythrocyte distribution width (RBC) [Ratio] 14.4 % 12.0-14.8 [facility] Glucose [Mass/volume] in Ser um or PlasmaOrdered By: Maya Read on 10-01-2023 Glucose [Mass/Vol] 116 mg/dL 70-100 [facility] Comment on above: ADA recommended refe rence rangeRandom Glucose Reference Range is dependent on time and content of last meal. Glucose of more than 200 mg/dL in a nonstressed, ambulatory subject supports the diagnosis of Diabetes Mellitus. Hematocrit Auto (Bld) [Volum e fraction]Ordered By: Maya Read on 10-01-2023 Hematocrit (Bld) [Volume fraction] 36.7 % 38.8-50.0 [facility] Hemoglobin [Mass/volume] in BloodOrdered By: Maya Read on 10-01-2023 Hemoglobin (Bld) [Mass/Vol] 12.0 g/dL 13.0-17.0 [facility] Leukocytes [#/volume] correc jorge for nucleated erythrocytes in Blood by Automated counOrdered By: Maya Read on 10-01-2023 WBC corrected for nucl RBC Auto (Bld) [#/Vol] 11.2 10*3/uL 4.1-10.5 [facility] Lymphocytes Auto (Bld) [#/Vo l]Ordered By: Maya Read on 10-01-2023 Lymphocytes (Bld) [#/Vol] 2.4 10*3/uL 1.00-4.8 [facility] Lymphocytes/100 WBC Auto (Bl d)Ordered By: Maya Read on 10-01-2023 Lymphocytes/100 WBC (Bld) 21.1 % . [facility] MCH Auto (RBC) [Entitic mass ]Ordered By: Maya Read on 10-01-2023 MCH (RBC) [Entitic mass] 26.1 pg 27.5-35.2 [facility] MCHC Auto (RBC) [Mass/Vol]Or dered By: Maya Read on 10-01-2023 MCHC (RBC) [Mass/Vol] 32.6 g/dL 32.5-35.6 [facility] MCV Auto (RBC) [Entitic vol] Ordered By: Maya Read on 10-01-2023 MCV (RBC) [Entitic vol] 80.0 fL 83.5-101 [facility] Monocytes Auto (Bld) [#/Vol] Ordered By: Maya Read on 10-01-2023 Monocytes (Bld) [#/Vol] 0.9 10*3/uL 0.0-0.8 [facility] Monocytes/100 WBC Auto (Bld) Ordered By: Maya Read on 10-01-2023 Monocytes/100 WBC (Bld) 8.2 % . [facility] Neutrophils Auto (Bld) [#/Vo l]Ordered By: Maya Read on 10-01-2023 Neutrophils (Bld) [#/Vol] 7.6 10*3/uL 1.8-7.7 [facility] Neutrophils/100 WBC Auto (Bl d)Ordered By: Maya Read on 10-01-2023 Neutrophils/100 WBC (Bld) 67.8 % . [facility] No Panel InformationOrdered By: Maya Read on 10-01-2023 Estimated GFR (CKD-EPI) > 60.0 mL/Min [facility] Creatinine Clearance (Chem 106.55 [facility] Nucleated erythrocytes [Pres ence] in Blood by Automated countOrdered By: Maya Read on 10-01-2023 Nucleated RBC Auto Ql (Bld) 0.0 /100{WBC} 0-0.5 [facility] Outside Recordson 10-01-2023 Outside Records [id number]#1.00OT GTIFF Normal [facility] Platelet mean volume Auto (B ld) [Entitic vol]Ordered By: Maya Read on 10-01-2023 Platelet mean volume (Bld) [Entitic vol] 6.9 fL 6.6-10.1 [facility] Platelets Auto (Bld) [#/Vol] Ordered By: Maya Read on 10-01-2023 Platelets (Bld) [#/Vol] 317 10*3/uL 150-450 [facility] Potassium [Moles/volume] in Serum or PlasmaOrdered By: Maya Read on 10-01-2023 Potassium [Moles/Vol] 4.1 mmol/L 3.5-5.1 [facility] RBC Auto (Bld) [#/Vol]Ordere d By: Maya Read on 10-01-2023 RBC (Bld) [#/Vol] 4.59 10*6/uL 3.90-5.60 [facility] Serum or plasma anion gap de terminationOrdered By: Maya Read on 10-01-2023 Anion gap [Moles/Vol] 12.3 mmol/L 6.0-15.0 [facility] Sodium [Moles/volume] in Ser um or PlasmaOrdered By: Maya Read on 10-01-2023 Sodium [Moles/Vol] 139 mmol/L 136-145 [facility] Urea nitrogen [Mass/volume] in Serum or PlasmaOrdered By: Maya Read on 10-01-2023 Urea nitrogen [Mass/Vol] 18 mg/dL 7-25 [facility] WBC Auto (Bld) [#/Vol]Ordere d By: Maya Read on 10-01-2023 WBC (Bld) [#/Vol] 11.2 10*3/uL 4.1-10.5 [facility] A1C with Estimated Average G luon 09-30-2023 Glucose [Mass/Vol] 134 mg/dL Normal [facility] Comment on above: Result Comment: PERF ORMED BY: [facility] [address] [place] [address] PATHOLOGIST [employer] SUPERVISOR KAREN CORONADO M.D. Performed By: #### A 1C [facility] eA #### [address] HbA1c (Bld) [Mass fraction] 6.3 % High 4.3-5.6 [facility] Comment on above: Result Comment: Incr eased risk for diabetes: 5.7 - 6.4 diabetes: >6.4 glycemic control for adults with diabetes: <7.0 Performed By: #### A 1C [facility] eA #### [address] Activated partial thrombopla stin time (aPTT) in platelet poor plasma by coagulation aOrdered By: Singh Mack on 09-30-2023 aPTT Coag (PPP) [Time] 38.4 s 25.1-36.5 [facility] Comment on above: A hematocrit value g reater than 55% may lead to inaccurate results in coagulation testing. Patients having hematocrit values >55% require a special collection tube for coagulation studies. Please contact the laboratory at [phone] for redraw instructions. Basic Metabolic Panelon 09-17 Anion gap [Moles/Vol] 11.8 mmol/L Normal 6.0-15.0 Th e [facility] Comment on above: Performed By: #### H S TROP, MG, LIPID, BMP #### [address] Calcium [Mass/Vol] 8.8 mg/dL Normal 8.6-10.3 [facility] Comment on above: Performed By: #### H S TROP, MG, LIPID, BMP #### [place] [address] [place] Chloride [Moles/Vol] 102 mmol/L Normal 98-107 [facility] Comment on above: Performed By: #### H S TROP, MG, LIPID, BMP #### [place] [address] [place] CO2 [Moles/Vol] 27.4 mmol/L Normal 21.0-31.0 [facility] Comment on above: Performed By: #### H S TROP, MG, LIPID, BMP #### [address] Creatinine [Mass/Vol] 0.70 mg/dL Normal 0.70-1.30 [facility] Comment on above: Performed By: #### H S TROP, MG, LIPID, BMP #### [place] [address] [place] Creatinine Clr Calc Pharmacy 117.20 Normal [facility] Comment on above: Performed By: #### H S TROP, MG, LIPID, BMP #### [place] [address] [place] GFR/1.73 sq M.predicted MDRD (S/P/Bld) [Vol rate/Area] mL/min/{1.73_m2} Normal [facility] Comment on above: Performed By: #### H S TROP, MG, LIPID, BMP #### [address] Glucose [Mass/Vol] 101 mg/dL High 70-100 [facility] Comment on above: Result Comment: [facility] Glucose Reference Range is dependent on time and content of last meal. Glucose of more than 200 mg/dL in a nonstressed, ambulatory subject supports the diagnosis of Diabetes Mellitus. ADA recommended reference range Performed By: #### H S TROP, MG, LIPID, BMP #### [address] Potassium [Moles/Vol] 4.2 mmol/L Normal 3.5-5.1 [facility] Comment on above: Performed By: #### H S TROP, MG, LIPID, BMP #### [place] [address] [place] Sodium [Moles/Vol] 137 mmol/L Normal 136-145 [facility] Comment on above: Performed By: #### H S TROP, MG, LIPID, BMP #### [address] Urea nitrogen [Mass/Vol] 24 mg/dL Normal 7-25 [facility] Comment on above: Performed By: #### H S TROP, MG, LIPID, BMP #### [address] Cholesterol [Mass/volume] in Serum or PlasmaOrdered By: Maya Read on 09-30-2023 Cholesterol [Mass/Vol] 89 mg/dL 140-200 [facility] Comment on above: Chol less than 200 m g/dl low riskChol 201-239 mg/dl borderline riskChol 240 mg/dl and greater high risk Cholesterol in LDL Calc [Mas s/Vol]Ordered By: Maya Read on 09-30-2023 Cholesterol in LDL [Mass/Vol] 39 mg/dL 0-100 [facility] Comment on above: LDL ATP III CLASSIFI CATIONLDL less than 100 mg/dL OptimalLDL 100-129 mg/dL Near or above optimalLDL 130-159 mg/dL Borderline highLDL 160-189 mg/dL HighLDL greater than 189 mg/dL Very high Cholesterol in VLDL Calc [Ma ss/Vol]Ordered By: Maya Read on 09-30-2023 Cholesterol in VLDL [Mass/Vol] 20 mg/dL [facility] ECG 12 lead ECGon 09-30-2023 ECG 12 lead ECG [place] [facility] [place] [address] [place] [address] Electrocardiograph Report Signed Patient: Barry Galdamez MR#: [id number] 41 : 1955 Acct:[id number] Age/Sex: 68 / M ADM Date: 09/30/23 Loc: Room: [address] [place] [address] Type: ADM IN Attending Dr: Juaquin Mckinley [...] No significant change was found Confirmed by BARBARA RIVAS MD ([id number]) on 09/30/2023 7:29:27 AM Referred By: Electronically Signed By:BARBARA RIVAS MD Transcribed By: MUS Signed By Barbara Rivas MD 0 09/30/23 0729 Normal [facility] Glucose mean value [Mass/vol ume] in Blood Estimated from glycated hemoglobinOrdered By: Singh Mack on 09-30-2023 Average glucose Estimated from glycated hemoglobin (Bld) [Mass/Vol] 134 mg/dL [facility] Hemoglobin A1c percentageOrd ered By: Singh Mack on 09-30-2023 HbA1c (Bld) [Mass fraction] 6.3 % 4.3-5.6 [facility] Comment on above: Increased risk for d iabetes: 5.7 - 6.4diabetes: >6.4glycemic control for adults with diabetes: <7.0 IntraOperative Documentson 0 09-30-2023 IntraOperative Documents [id number]#[id number] FF Normal [facility] Lipid Panelon 09-30-2023 Cholesterol [Mass/Vol] 89 mg/dL Low 140-200 [facility] e [facility] Comment on above: Result Comment: Chol less than 200 mg/dl low risk Chol 201-239 mg/dl borderline risk Chol 240 mg/dl and greater high risk Performed By: #### A 1C [facility] eA #### [facility] [address] [id number] [place] Cholesterol in HDL [Mass/Vol] 30 mg/dL Normal 23-92 [facility] Comment on above: Result Comment: HDL CHOL ATP-III CLASSIFICATION Cardiovascular Risk HDL > or equal to 60 mg/dL LOW HDL < 40 mg/dL HIGH Performed By: #### A 1C WT eA #### [facility] [address] [id number] [place] Cholesterol.total/Ayse sterol in HDL [Mass ratio] 3.0 {ratio} Normal <5.0 [facility] Comment on above: Result Comment: PERF ORMED BY: [place] [address] PATHOLOGIST [employer] SUPERVISOR KAREN CORONADO M.D. Performed By: #### A [facility] eA #### [address] LDL Cholesterol,Calculated 39 mg/dL Normal 0-100 [facility] Comment on above: Result Comment: LDL ATP III CLASSIFICATION LDL less than 100 mg/dL Optimal LDL 100-129 mg/dL Near or above optimal LDL 130-159 mg/dL Borderline high LDL 160-189 mg/dL High LDL greater than 189 mg/dL Very high Performed By: #### A 1C [facility] eA #### [address] Triglyceride w/Reflex 101 mg/dL Normal 0-149 [facility] Comment on above: Result Comment: TRIG ATP III CLASSIFICATION TRIG less than 150 mg/dL Normal TRIG 150-199 mg/dL Borderline high TRIG 200-500 mg/dL High TRIG greater than 500 mg/dL Very high Standard traceable to the Center for Disease Conrtrol and Prevention (CDC) test method. Performed By: #### A [facility] eA #### [address] VLDL CHOLESTEROL 20 mg/dL Normal [facility] Comment on above: Performed By: #### A [facility] eA #### [address] Magnesiumon 09-30-2023 Magnesium [Mass/Vol] 1.8 mg/dL Low 1.9-2.7 [facility] Comment on above: Performed By: #### H S TROP, MG, LIPID, BMP #### [address] Magnesium [Mass/volume] in S jada or PlasmaOrdered By: Maya Read on 09-30-2023 Magnesium [Mass/Vol] 1.8 mg/dL 1.9-2.7 [facility] Monitor Recordon 09-30-2023 Monitor Record [id number]#1.00TI FF [facility] Outside Recordson 09-30-2023 Outside Records [id number]#1.00OTG TIFF [facility] Outside Records [id number]#1.00O TGTIFF [facility] Partial Thromboplastin Timeo n 09-30-2023 aPTT Coag (Bld) [Time] 39.0 s High 25.1-36.5 Th e [facility] Comment on above: Result Comment: A he matocrit value greater than 55% may lead to inaccurate results in coagulation testing. Patients having hematocrit values >55% require a special collection tube for coagulation studies. Please contact the laboratory at [phone] for redraw instructions. PERFORMED BY: [place] [address] PATHOLOGIST [employer] SUPERVISOR KAREN CORONADO M.D. Performed By: #### P TT #### [facility] [address] [place] [address] aPTT Coag (Bld) [Time] 38.4 s High 25.1-36.5 Th e [facility] Comment on above: Result Comment: A he matocrit value greater than 55% may lead to inaccurate results in coagulation testing. Patients having hematocrit values >55% require a special collection tube for coagulation studies. Please contact the laboratory at [phone] for redraw instructions. PERFORMED BY: [place] [address] PATHOLOGIST HOUSE FURNISHINGS SUPERVISOR KAREN CORONADO M.D. Performed By: #### A 1C WTH eA #### [facility] [address] [place] [address] Serum or plasma high density lipoprotein (HDL) cholesterol measurementOrdered By: Maya Read on 09-30-2023 Cholesterol in HDL [Mass/Vol] 30 mg/dL 23-92 [facility] Comment on above: HDL CHOL ATP-III CLA SSIFICATION Cardiovascular RiskHDL > or equal to 60 mg/dL LOWHDL < 40 mg/dL HIGH Serum or plasma total choles terol/high density lipoprotein (HDL) cholesterol mass ratOrdered By: Maya Read on 09-30-2023 Cholesterol.total/Ayse sterol in HDL [Mass ratio] 3.0 {ratio} <5.0 [facility] Triglyceride [Mass/volume] i n Serum or PlasmaOrdered By: Maya Read on 09-30-2023 Triglyceride [Mass/Vol] 101 mg/dL 0-149 [facility] Comment on above: TRIG ATP III CLASSIF ICATIONTRIG less than 150 mg/dL NormalTRIG 150-199 mg/dL Borderline highTRIG 200-500 mg/dL High TRIG greater than 500 mg/dL Very highStandard traceable to the Center for Disease Conrtrol and Prevention (CDC) test method. Troponin I High Sensitivityo n 09-30-2023 Troponin I High Sensitivity 1398.0 pg/mL Off scale high 0.0-20.0 [facility] Comment on above: Result Comment: Resu lts called at 0353 on 09/30/23 PERFORMED BY: [place] [phone] PATHOLOGIST HOUSE FURNISHINGS SUPERVISOR KAREN CORONADO M.D. Performed By: #### A 1C WTH eA #### [address] Troponin I High Sensitivity 1175.9 pg/mL Off scale high 0.0-20.0 [facility] Comment on above: Result Comment: Crit ical Result : Called to and read back by: JARON GERONIMO at: 09/30/2023 03:54:06 by:[id number] PERFORMED BY: [place] [address] PATHOLOGIST HOUSE FURNISHINGS SUPERVISOR KAREN CORONADO M.D. Performed By: #### H S TROP, MG, LIPID, BMP #### [facility] [address] [place] [address] Troponin I High Sensitivity 976.8 pg/mL Off scale high 0.0-20.0 [facility] Comment on above: Result Comment: Crit ical Result : Called to and read back by: RAMO GARRISON at: 09/30/2023 10:10:05 by:[id number] PERFORMED BY: [place] [address] PATHOLOGIST HOUSE FURNISHINGS SUPERVISOR KAREN CORONADO M.D. Performed By: #### A 1C [facility] #### [address] Troponin I.cardiac [Mass/vol ume] in Serum or Plasma by Detection limit <= 0.01 ng/Ordered By: Maya Read on 09-30-2023 Troponin I.cardiac DL <= 0.01 ng/mL [Mass/Vol] 976.8 pg/mL 0.0-20.0 [facility] Comment on above: Critical Result : Ca lled to and read back by: RAMO GARRISON at: 09/30/2023 10:10:05 by:[id number] [facility] echo transthoracicon [facility] echo transthoracic [facility] Main [place] [address] [place] [address] Echocardiogram Signed Patient: Barry Galdamez MR#: [id number] 41 : 1955 Acct:[id number] Age/Sex: 68 / M ADM Date: 09/30/23 Loc: Room: [address] [place] [address] Type: ADM IN Attending Dr: Juaquin Mckinley MD Ordering Provider: Maya Read MD, RES Date of Service: 09/30/23 [facility] echo transthoracic: NSTEMI Copies to: MD [...] Signed By: Barbara Rivas MD 09/30/23 1120 Normal [facility] Discharge Instructionson Discharge Instructions [id number]#1.00TI FF Normal [facility] Main OR Intraoperative Recor don 09-25-2023 Main OR Intraoperative Record IntraOp Document Type FT Summary Primary Physician: Hui Costa MD Finalized Date/Time: 09/25/23 14:06:26 Pt. Name: BARRY GALDAMEZ./Sex: 1955 Male Med Rec #: [id number] Physician: Erwin VALADEZ DO Financial #: [id number] Pt. Type: O Room/Bed: [place] [address] Admit/Disch: 09/22/23 20:07:00 - 09/23/23 14:55:00 Institution: Case Times FT Entry 1 Patient Times In Room 09/23/23 08:53:00 Out Room 09/23/23 09:04:00 Procedure Times Start 09/23/23 08:58:00 Stop 09/23/23 09:02:00 Anesthesia Times Start 09/23/23 08:53:00 Stop 09/23/23 09:04:00 Last Modified By: Corrina Agosto RN 09/23/23 09:04:40 General Comments: 09/25/23 Chart opened to review and send charges LRoth CSFA Case Attendance FT Entry 1 Entry 2 Entry 3 Case Attendee Igor FARFAN, Hui Agosto RN, Aurora Jacobs CRNA Role Performed Surgeon - Primary Glove Pairer - Primary BALANCE CLERK Time In 09/23/23 08:53:00 09/23/23 08:53:00 09/23/23 08:53:00 Time Out 09/23/23 09:04:00 09/23/23 09:04:00 09/23/23 09:04:00 Procedure EGD(.) EGD(.) EGD(.) Comments Dr. Shaw supervising case Last Modified By: Dendinger RN, Corrina Agosto RN, Corrina Agosto RN, [...] Time Out Hui Costa MD, Given Participants Triny TREVIZO, Jayson Trivedi CRNA, [...] cold snare. Primary Procedure Yes Primary Surgeon Igor FARFAN, Hui Pineda Start 09/23/23 08:58:00 Stop 09/23/23 09:02:00 Anesthesia [...] and tissue Entry 1 Skin Integrity Intact, [place], Warm, and Skin Abnormality No Dry Outcomes [...] Arm Po (more content not included)... Normal [facility] Progress Note-Physicianon Progress Note-Physician Patient: BARRY GALDAMEZ [...] when meets criteria ( To home ). Normal [facility] Comment on above: Result Comment: Elec tronically Signed By: Chad Shaw Jr, DO\.br\Date and Time Signed: 09/25/23 13:53 EST Progress Note-Physician Patient: BARRY GALDAMEZ Age: [...] Problems Weak urine stream / SNOMED CT 028738849 / Confirmed Screening PSA (prostate specific antigen) / SNOMED CT 316382360 / Confirmed Osteoarthritis / SNOMED CT 1987398276 / Confirmed Nocturia / SNOMED CT 520344760 / Confirmed Impingement syndrome of right shoulder / SNOMED CT 329573275 / Confirmed HTN (hypertension) / SNOMED CT 0101547456 / Confirmed Hypertension / SNOMED CT 2486410481 / Confirmed Erectile dysfunction / SNOMED CT 5060703510 / Confirmed Depression / SNOMED CT 41559608 / Confirmed Carpal tunnel syndrome of right wrist / SNOMED CT 05732354 / Confirmed Asymptomatic microscopic hematuria / SNOMED CT 9137339501 / Confirmed Asthma / SNOMED CT 605644406 / Confirmed Arthritis / SNOMED CT 1739073 / Confirmed Hip pain, left / SNOMED CT 9890185526 / Confirmed DJD Resolved: At risk for falls / SNOMED CT 218913665 Problem added when Risk for Falls Careplan was initiated. Resolved due to patient discharge. Histories Procedure history: Left L4/5 Transforaminal Epidural Steroid Injections (9069765236) on 06/25/2023 at 67 Years. Comments: 07/31/2023 10:10 Brianna Echeverria 10% relief L5/S1 TASHA (6063908445) on 05/19/2023 at 67 Years. Comments: 06/05/2023 11:07 Theodora Oh RN L5/S1 TASHA 70% relief L5-S1 TASHA (2522202071) on 12/10/2022 at 67 Years. Comments: 01/09/2023 13:14 JAMA Troy RN, Adry Aguirre L5-S1 TASHA-100% relief Arthroscopy of shoulder (928032824) on 04/13/2018 at 62 Years. Comments: 04/13/2018 14:52 JAMA Rust RN, Marti right .distal claviculectomy .extensive debridement ,subacromial decompression. Carpal tunnel release (950611571) on 04/13/2018 at 62 Years. Comments: 04/13/2018 14:52 JAAM Rust RN, Marti right Hip arthroplasty (592379886) on 09/29/2017 at 62 Years. Comments: 09/29/2017 14:17 JAMA Alonzo RN, Imelda Lillian left Left hip arthrogram on 12/03/2016 at 61 Years. Appendectomy; (92626). Colonoscopy (173945084). Tooth extraction, complete mouth (99683471). Stent (074528806). Comments: 09/04/2022 14:42 JAIME Mendieta RN, Jennifer [...] adequate air exchange. Cardiovascular: Regular rhythm. Plan [place] [employer] Anesthesiologists (ASA) physical status classification: Class III. Anesthetic Preoperative Plan: Anesthesia General. [facility] Comment on above: Result Comment: Elec tronically Signed By: Colin Childs DO, Chad Snyder\.deborah\Date and Time Signed: 09/25/23 13:55 EST [place]enton 09-24-2023 Consent [id number]#1.00TI FF [facility] Facesheeton 09-24-2023 Facesheet [id number]#1.00TI FF [facility] Outside Recordson 09-24-2023 Outside Records [id number]#1.00TI FF [facility] Outside Records [id number]#1.00OTG TIFF Normal [facility] Transfer Documentson 024 Transfer Documents [id number]#1.00TI FF Normal [facility] BMPon 09-23-2023 Anion gap [Moles/Vol] 9 mmol/L Normal 6-16 [facility] Comment on above: Performed By: #### 2 334234, 94020971, 45932029, 3587047 ####[facility] [address] [place] [address] Calcium [Mass/Vol] 9.0 mg/dL Normal 8.9-11.1 [facility] Comment on above: Performed By: #### 2 487030, 48576773, 03784878, 5153416 ####[facility] [address] [place] [address] Chloride [Moles/Vol] 104 mmol/L Normal 101-111 [facility] Comment on above: Performed By: #### 2 323113, 20350134, 86268087, 8394824 ####[facility] [address] [place] [address] CO2 [Moles/Vol] 31 mmol/L Normal 21-31 [facility] Comment on above: Performed By: #### 2 275876, 71171323, 40142382, 5770270 ####[facility] [address] [place] [address] Creatinine [Mass/Vol] 0.8 mg/dL Normal 0.5-1.3 [facility] Comment on above: Performed By: #### 2 576549, 00033539, 62954686, 7230705 ####[facility] [address] [place] [address] Glucose [Mass/Vol] 96 mg/dL Normal 55-199 [facility] Comment on above: Performed By: #### 2 994030, 93895200, 79003599, 7197067 ####[facility] [address] [place] [address] Potassium [Moles/Vol] 4.4 mmol/L Normal 3.5-5.3 [facility] Comment on above: Performed By: #### 2 150983, 27305243, 48718975, 4442324 ####[facility] [address] [place] [address] Sodium [Moles/Vol] 140 mmol/L Normal 135-145 [facility] Comment on above: Performed By: #### 2 051126, 17175527, 29540928, 0788185 ####[facility] [address] [place] [address] Urea nitrogen [Mass/Vol] 21 mg/dL Normal 5-21 [facility] Comment on above: Performed By: #### 2 160300, 05707587, 84071279, 7995180 ####[facility] [address] [place] [address] Urea nitrogen/Creatinine [Mass ratio] 26 No Units High 10-20 [facility] Comment on above: Performed By: #### 2 692695, 24802411, 54320183, 8808137 ####[address] [address] CBC w/ Auto Diffon 4 Basophils/100 WBC (Bld) 0.5 % Normal 0.0-2.0 F [facility] Comment on above: Performed By: #### 2 309842, 30167046, 41528608, 9883179 ####[facility] [address] [place] [address] Basophils/Leukocytes Auto (Bld) [Pure # fraction] 0.1 E9/L Normal 0.0-0.2 [facility] Comment on above: Performed By: #### 2 622130, 30296358, 78557491, 8263348 ####[address] [address] Eosinophils (Bld) [#/Vol] 0.2 E9/L Normal 0.0-0.5 [facility] Comment on above: Performed By: #### 2 627884, 19910398, 79756117, 6899856 ####[address] [address] Eosinophils/100 WBC (Bld) 1.6 % Normal 0.0-8.0 [facility] Comment on above: Performed By: #### 2 534959, 13330799, 04250934, 3692077 ####[address] [address] Erythrocyte distribution width (RBC) [Ratio] 14.2 % Normal 10.9-14.2 [facility] Comment on above: Performed By: #### 2 456704, 76147648, 19419470, 8192557 ####[address] [address] Hematocrit (Bld) [Volume fraction] 34.4 % Low 37.7-49.0 [facility] Comment on above: Performed By: #### 2 169042, 77463061, 54440530, 8100995 ####[address] [address] Hemoglobin (Bld) [Mass/Vol] 11.3 g/dL Low 13.5-17.5 [facility] Comment on above: Performed By: #### 2 943764, 60858823, 26514054, 4357883 ####[address] [address] Lymphocytes (Bld) [#/Vol] 3.1 E9/L Normal 1.0-4.0 [facility] Comment on above: Performed By: #### 2 574108, 07442904, 00819451, 9824189 ####[address] [address] Lymphocytes/100 WBC (Bld) 26.5 % Normal 14.0-50.0 [facility] Comment on above: Performed By: #### 2 092808, 21861393, 73856430, 1025162 ####[facility] [address] [place] [address] MCH (RBC) [Entitic mass] 26.3 pg Low 27.0-34.0 [facility] Comment on above: Performed By: #### 2 580233, 70508899, 98065057, 0752839 ####[address] [address] MCHC (RBC) [Mass/Vol] 32.9 g/dL Normal 31.4-36.0 [facility] Comment on above: Performed By: #### 2 674135, 55904027, 64067392, 3558823 ####[place] [address]57 MCV (RBC) [Entitic vol] 80.1 fL Normal 80.0-100.0 F [facility] Comment on above: Performed By: #### 2 939877, 24676762, 50109493, 4853019 ####[place] [address] Monocytes (Bld) [#/Vol] 0.8 E9/L Normal 0.2-1.0 F [facility] Comment on above: Performed By: #### 2 935075, 11706301, 22976720, 1747559 ####[address] [address] Neutrophils (Bld) [#/Vol] 7.7 E9/L High 2.0-7.5 [facility] Comment on above: Performed By: #### 2 388146, 95291831, 06176935, 1313132 ####[place] [address] Neutrophils/100 WBC (Bld) 64.5 % Normal 36.0-75.0 [facility] Comment on above: Performed By: #### 2 451825, 94116129, 74372379, 4599235 ####[address] [address] Platelet mean volume (Bld) [Entitic vol] 7.2 fL Normal 6.4-10.8 [facility] Comment on above: Performed By: #### 2 295836, 82752586, 44478360, 3420685 ####[facility] [address] [place] [address] Platelets (Bld) [#/Vol] 240.0 E9/L Normal 150. 0-500. 0 [facility] Comment on above: Performed By: #### 2 576296, 76885918, 18577756, 8148335 ####[facility] [address] [place] [address] RBC (Bld) [#/Vol] 4.3 E12/L Normal 4.3-5.9 [facility] Comment on above: Performed By: #### 2 710224, 28149690, 95082396, 1096896 ####[facility] [address] [place] [address] WBC corrected for nucl RBC Auto (Bld) [#/Vol] 11.9 E9/L High 4.0-11.0 [facility] Comment on above: Performed By: #### 2 453265, 56683901, 41392389, 6086260 ####[facility] [address] [place] [address] Consultation Noteon 09-23-19 Consultation Note Patient: MANPREET [...] day(s), # 135 tab(s), Refills(s) 1, Pharmacy: [facility]/pharmacy #[id number], 183, cm, 07/31/23 10:16:00 EST, Height/Length [...] and Plan EGD: Diagnosis: Esophageal foreign body (HAS74-FN T18.108A, Discharge, Medical). Course: Progressing as expected. Education and Follow-up: Counseled. Notes: Obtain H. pylori stool antigen Start PPI once daily Repeat EGD after 3 months to obtain esophageal and stomach biopsies. Normal [facility] Comment on above: Result Comment: erro r Electronically Signed By: Igor FARFAN, Hui Ross.br\Date and Time Signed: 09/23/23 09:09 JAIME White [...] day(s), # 135 tab(s), Refills(s) 1, Pharmacy: [facility]/pharmacy #[id number], 183, cm, 07/31/23 10:16:00 EST, Height/Length [...] and Plan EGD: Diagnosis: Esophageal foreign body (QMG72-FR T18.108A, Discharge, Medical). Course: Progressing as expected. Education and Follow-up: Counseled. Notes: Obtain H. pylori stool antigen Start PPI once daily Repeat EGD after 3 months to obtain esophageal and stomach biopsies. Normal [facility] Esophagogastroduodenosc opy Patient: BARRY GALDAMEZ Age: 68 [...] day(s), # 135 tab(s), Refills(s) 1, Pharmacy: [facility]/pharmacy #[id number], 183, cm, 07/31/23 10:16:00 EST, Height/Length [...] and Plan EGD: Diagnosis: Esophageal foreign body ([id number]-TO T18.108A, Discharge, Medical). Course: Progressing as expected. [...] September 23, 2023 9:09 EST Encounter info: [id number], [place] - [place], Observation, 09/22/2023 - Normal [facility] Comment on above: Result Comment: erro r Esophagogastroduodenosc opy Patient: BARRY GALDAMEZ Age: 68 years Sex: Male : 1955 Associated Diagnoses: None Author: Hui Costa MD History of Present Illness Gastroenterology Consult 60-y[age]yjc-year-old male with past medical history of coronary disease on Plavix Admitted with food bolus impaction Was eating chicken and ate through the pollen around 3 PM yesterday [facility] and evaluated with CAT scan which [...] day(s), # 135 tab(s), Refills(s) 1, Pharmacy: [facility]/pharmacy #[id number], 183, cm, 07/31/23 10:16:00 EST, Height/Length [...] Mother Arthritis Mother Procedure history: Esophagogastroduodenosco py (479821106) on 09/23/2023 at 68 Years. Left L4/5 Transforaminal Epidural Steroid Injections (7189399166) on 06/25/2023 at 67 Years. Comments: 07/31/2023 10:10 Brianna Echeverria 10% relief L5/S1 TASHA (6589501057) on 05/19/2023 at 67 Years. Comments: 06/05/2023 11:07 Theodora Oh RN L5/S1 TASHA 70% relief L5-S1 TASHA (3184033741) on 12/10/2022 at 67 Years. Comments: 01/09/2023 13:14 Adry Saab RN L5-S1 TASHA-100% relief Arthroscopy of shoulder (722392067) on 04/13/2018 at 62 Years. Comments: 04/13/2018 14:52 JAMA Rust RN, Marti right .distal claviculectomy .extensive debridement ,subacromial decompression. Carpal tunnel release (626605843) on 04/13/2018 at 62 Years. Comments: 04/13/2018 14:52 Marti Trinidad RN right Hip arthroplasty (718391807) on 09/29/2017 at 62 Years. Comments: 09/29/2017 14:17 Imelda Palencia RN left Left hip arthrogram on 12/03/2016 at 61 Years. Appendectomy; (37061). Colonoscopy (752273785). Tooth extraction, complete mouth (41578279). Stent (171205450). Comments: 09/04/2022 14:42 JAIME Mendieta RN, Jennifer Eckret cardiac Social History Social & Psychosocia (more content not included)... Normal [facility] Inpatient Clinical Summaryon 09-23-2023 Inpatient Clinical Summary [address] [address] Clinical Summary Person Information: Name: BARRY GALDAMEZ Age: 68 Years : 1955 Sex: Male PCP: JOE MADDOX DO Marital Status: Phone: [phone] Race: White Ethnicity: Non- or Language: Haitian Visit Id: Visit Reason: ESOPHAGEAL FOOD BOLUS Speciality: Acuity: Enc Type: Observation Med Service: Medical Arrival: 09/22/2023 20:07:00 Discharge: Dispo Type: Address: [facility] 07/21 [facility] [id number] Provider Notes: Diagnosis: 1:Esophageal foreign body; 2:Coronary [...] With: Address: When: JOE MADDOX DO [address] [place] [address] 09/29/2023 3:30 PM With: Address: When: Igor FARFAN, Hui Pineda [address], [address] [place] [address] [phone] 11/30/2023 9:00 AM Comments: Will need EGD in 3 months, Plavix must be held prior to endoscopy x 5 [address] be [address] Dr[address] Biswas at this appoinment. Type Location Start Finish State Pain Management - Follow Up (FT) FTPain Mgmt [place] 10/01/2023 2:15 PM 10/01/2023 2:25 PM Confirmed BADH New Patient [facility] 11/30/2023 9:00 AM 11/30/2023 9:30 AM Confirmed Patient Education Information: Hiatal Hernia; Duodenitis; Upper Endoscopy, Adult, Care After; Swallowed Foreign Body, Adult Protonix Normal [facility] Inpatient Patient Summaryon 09-23-2023 Inpatient Patient Summary [address] [address] Patient Discharge Instructions PERSON INFORMATION Name: BARRY [...] With: Address: When: JOE MADDOX DO [address] [place] [address] 09/29/2023 3:30 PM With: Address: When: Igor FARFAN, JEFF Contreras, [address], [address] [place] [phone] 11/30/2023 9:00 AM Comments: Will need EGD [...] Management - Follow Up (FT) FT.Pain Mgmt [place] 10/01/2023 2:15 PM 10/01/2023 2:25 PM Confirmed BADH New Patient [facility] 11/30/2023 9:00 AM 11/30/2023 9:30 AM Confirmed Comment: DENICE Pimentel WAYNE M, have received the attached patient education materials/instructions and have verbalized understanding: Patient Signature Date Clinican/Nurse Signature Date HERE ARE THE MEDICATION CHANGES THAT OCCURRED DURING YOUR HOSPITAL STAY New Medications [id number], [address] [place], [place] [id number], [phone] pantoprazole (Protonix 40 mg Tab-DR) 1 Tablets [...] every 12 emily (more content not included)... [facility] Insurance Correspondenceon 0 09-23-2023 Insurance Correspondence [id number]#1.00TIF F [facility] Insurance Correspondence Off iceon 09-23-2023 Insurance Correspondence Office [id number]#1.00TI FF [facility] Interdisciplinary Note - Huey e Manageron 09-23-2023 Interdisciplinary Note - Pipe Roller Pt is awake and alert in bed, previously rounded with Ariana. Pt is aware of plan to DC home later today. Pt is from home with and she will transport at DC. Observation status reviewed, PCP verified and insurance information reviewed will transport at DC, decline any concerns or DC needs. Plan to DC home today. [facility] Comment on above: Result Comment: Elec tronically Signed By: Cherelle TREVIZO, Callie\.br\Date and Time Signed: 09/23/23 10:51 EST Main OR PACU I Recordon 03-0 Main OR PACU I Record PACU Phase I Docum ent Type FT Summary Primary Physician: Hui Costa MD Finalized Date/Time: 09/23/23 10:12:11 Pt. Name: BARRY GALDAMEZ Tomeka Chanel./Sex: 1955 Male Med Rec #: [id number] Physician: Erwin VALADEZ DO Financial #: [id number] Pt. Type: O Room/Bed: 18/ Admit/Disch: 09/22/23 [...] By: Niharika Solorzano RN 09/23/23 10:12 Normal [facility] Main OR Preoperative Recordo n 09-23-2023 Main OR Preoperative Record Holding Area Document Type FT Summary Primary Physician: Hui Costa MD Finalized Date/Time: 09/23/23 08:39:45 Pt. Name: BARRY GALDAMEZ./Sex: 1955 Male Med Rec #: [id number] Physician: Erwin VALADEZ DO Financial #: [id number] Pt. Type: O Room/Bed: [place] [address] Admit/Disch: 09/22/23 20:07:00 - Institution: Case Times [...] By: Mirta Gutiérrez RN 09/23/23 08:39 Normal [facility] Message from Medicareon 03-0 Message from Medicare [id number]#1.00TIF F [facility] Monitor Recordon 09-23-2023 Monitor Record [id number]#1.00TI FF [facility] Monitor Record [id number]#1.00TI FF [facility] Patient Education - Texton 0 09-23-2023 [...] after the procedure. General instructions ? Take pxnt-nhk-nwxghxb and prescription medicines only as told by [...] the symptoms (more content not included)... Normal [facility] TSH With T4fr Reflexon 09-22 TSH Qn 3.13 m[IU]/L Normal 0.34-5.60 [facility] Comment on above: Performed By: #### 2 201640, 15628692, 17134462, 5348886 ####[facility] [address] [place] [address] eGFRon 09-23-2023 eGFR 96 mL/min/1.73 m2 Normal >=59 [facility] Comment on above: Order Comment: Order added by Discern Expert. Performed By: #### 2 531694, 15329056, 61954644, 2495697 ####[facility] [address] [place] [address] Outside Recordson 08-03-2023 Outside Records [id number]#1.00OTG TIFF Normal [facility] Consent for Treatmenton 07-20 Consent for Treatment [id number]#1.00TI FF Cecilia [facility] Consultation Noteon 07-31-19 Consultation Note Patient: MANPREET [...] day(s), # 135 tab(s), Refills(s) 1, Pharmacy: [facility]/pharmacy #[id number], 183, cm, 07/31/23 10:16:00 EST, Height/Length [...] All Problems HTN (hypertension) / SNOMED CT 3908839392 / Confirmed Hip pain, left / SNOMED CT 9078400800 / Confirmed DJD Nocturia / SNOMED CT 097045999 / Confirmed Asthma / SNOMED CT 432918731 / Confirmed Impingement syndrome of right shoulder / SNOMED CT 350766516 / Confirmed Carpal tunnel syndrome of right wrist / SNOMED CT 53205804 / Confirmed Osteoarthritis / SNOMED CT 6897919529 / Confirmed Arthritis / SNOMED CT 9664987 / Confirmed Depression / SNOMED CT 99444497 / Confirmed Hypertension / SNOMED CT 9537713604 / Confirmed Erectile dysfunction / SNOMED CT 4548217041 / Confirmed Asymptomatic microscopic hematuria / SNOMED CT 6460991124 / Confirmed Weak urine stream / SNOMED CT 294003996 / Confirmed Screening PSA (prostate specific antigen) / SNOMED CT 522545800 / Confirmed Resolved: At risk for falls / SNOMED CT 698616812 Problem added when Risk for Falls Careplan [...] hip flexion 5 -/5 Integumentary: Warm, Dry, M[place]. Injection site well-healed Neurologic: Alert, Oriented. Psychiatric: [...] we discussed gabapen (more content not included)... [facility] Comment on above: Result Comment: Elec tronically Signed By: Ariana Urena PA-C\.br\Date and Time Signed: 07/31/23 10:27 EST Legal Correspondence Officeo n 07-31-2023 Legal Correspondence Office [id number]#1.00TIF F [facility] Office/Clinic Note-Physician on 07-31-2023 Office/Clinic Note-Physician [id number]#1.00TIF F [facility] Patient Correspondenceon Patient Correspondence [id number]#1.00TIF F [facility] Patient Correspondence [id number]#1.00TIF F [facility] Patient Correspondence [id number]#1.00TIF F Normal [facility] Patient Correspondence [id number]#1.00TIF F Normal [facility] Patient History Officeon Patient History Office [id number]#1.00TIF F Normal [facility] Reminder Messageson 07-31-19 24 Reminder Messages - From: JOE MADDOX DO To: [facility] Clinical [employer] ([facility]); Sent: 07/27/2023 12:31:28 EST ! Show up: 07/27/2023 12:31:28 EST Subject: Results Follow Up Actions: Call the patient with result(s) Due Date/Time: 07/28/2023 12:30:00 EST Reminder Comments: looks okay. no abnormal rhythms Results: Date Result Type Result Name 07/27/2023 11:35 Radiology CV Holter Monitor 48 Hour From: Katelin Shultz ([facility] Clinical Pool ([facility])) To: JOE MADDOX DO; Sent: 07/27/2023 16:46:59 EST Show up: 07/27/2023 16:46:00 EST Subject: RE: Results Follow Up Notified patient of results. Patient states he had another episode yesterday afternoon, his BP dropped to 98/61 while he was sitting. Patient states he had not had an episode prior to this one for 2 weeks. Please advise, thank you From: JOE MADDOX DO To: [facility] Clinical [employer] ([facility]); Sent: 07/28/2023 07:42:25 EST Show up: 07/28/2023 07:42:00 EST Subject: RE: Results Follow Up time for a cardiology referral LVM notifying patient, referral made Normal [facility] Coding Summaryon 07-28-2023 Coding Summary HTMLBase 64 PwwnugwiWHy4yKc+PGhlYWQ+ BZ2ABVCaQ29epBFxoE1kD0OR TElOSywgQVBQTElOSyIgbmFt VN6vwNEyWRLn IC8+FS6nIIJtSerwcLYrn5I5 zQU0G94qfh3oIGehjEO8VXSv WbOgdyfql7swqVe2WNezQlul OyBt VXCvvM45MKA7hJ00Xc38tVZv dQDom8ahzVj0OxOkKSCrHPZ0 xXokBNiij3XlXRDnU92avNAb c2U6 BRJkoXipzQOaRtKwkUC5jJ7d RYbqnhfxf0rzhcofOsf6cb50 iDIdl0W3rKH3Z5ReykT6MDPe bGQg MbhvoFUIbE4touktr5uoeboq YzAxPGLgPGo1NRz1VVZfjKsy UuAkLZ10IFM4DIQevwGaZ2Bi LWFs sSjxCwN9n0N3Cn1CA4WDVswt M5HEWUROSHqxxKA+KW90xg93 A0RgMkqpGmt2UEEgTAO0jBJ2 aD0n WATfMNhov2J9tAZ1N7VvnvTb pt9kr4hjMVZdRDhuW21tfPQb b6R9PIBnbQS1YIIshBxnAuFh aG93 Oyc+ZYTzxTkqd6RtOecev2vt t5oatEe7HeccZIJzxmQunHtq ULD8x0AfIg6tTIKdaOR9eFX4 aD0i KuQhAmK3NFwwX353UeZxkVIm QinhF22gC6LjaDS+PHRyPjx0 LREwcGqvYB9jA7WaHPGwwcuv bGVm oYkjKJ4bWSCcxxaoEPZqkC8d AKRfV8f4PnEyEzC0ZCmtW4Aw KOVdfssdYy53fH8kVrNkJtO5 MGlu U2RxfeI0EUGlvPKaYAtnFZU0 D59ai2R5HAKnWHTkIOT8zSV2 iJ8emUaqaurhpGHmsDzxhbNq dGlj XAsuRFabT539DWJbbHewYkHn ZGluZyBEYXRlOiAgMDEvMDkv MjAyNDwvdGQ+PIJpCIJ2pYxw PSAn fZZrZKmqBv9qpVfrqLdaOD4b MKFwuajiNCBdiK7tPZSanQSv jNewTQ2xWVWldedmc987KqOm MHB0 ITYibAZtB0LrkK0cTcXfXDLv IDMzH3MmtULqBOlyS669NUwc ZdB4ACZcjdDeR4JrKXOsxCwi OiB0 u6K9Mi8An6OgahahV3OmxRSx NgCtMfklCKd8O2KuXoofyIY+ KE38IEZbJS60DGc6YKK9oUsv PSdi CMGhC3MhvM6zFxCiTHYeGTIz Oyc+PHRhYmxlIHdpZHRoPScx OUEyLcNkoBluOM4vTw8pITNb LWNv jUmsaPEaAmTwz1ejFCGfVIwu NF4wdGseP7OlbKW4LZBhw1e0 On48Q64zM4MelDN+PGNvbCB3 aWR0 jY9hLeLyMxB6TWfnK299MiIs aJGuKkjna1rfn8ijnXo0BkL0 OHXbqlPtmSrmDQO0n4HoFe76 Y29s IHdpZHRoPSIxNSUiIHZhbGln xl0ddN3wLq0+NJZcxLE1pDF5 tT9yWzMqWtS4ZWiyM876NuIo cCIv Szomc6wfa8jatPs2RcGqINPe kxHndZnzKQO6e1JeCi86F3Yc hTpjn6LqWof6cw97zQEez6O7 bGU9 S7KlDYCjpgjezEQhcQciDW5j APHnakerZBXgfG0dTNKfI0h5 JgYxNbV0LUxcB2VorvJ6DZXg bGQg FYTgjZZJnE0mxmccy2bjychj SbXiPFDwOIp5NVh4JXCxrVau BwHuDNS8ThC0UAW0yZVsgU1a bGln tbpmqI1gIxt+XXK4qXQtiACM GS7iScnavJU+BQFpQJV2fHuw DTrhLOCldE9jTIEpB2n3QpOb LjA1 CUngQ1VvcgU1YXMndIRjUUDa eLLMdO0qxefgk8kczncuNlQh FBFkSOz3MEg8MRZptNxhVwKv ZWZ0 ThQ7KKP6cULehA6sjDlaeoba kC4xQhb+AkhppWrvJKJ1MHs7 F3FvUmg3RNGwyXtaJB2ohMAz ZGlu Ia9skLqooTekKG4xZEAktqyc g773WiQcv7xkEHKteCArIXrm GBY4U76we0J9HYOlBJNpNBO8 dGV4 rV6zjVqouryioJIwcGccprYy qIvrEXvfKYexO273YMNqoKds NaObXTq3T9MjHzi9BDFhxAkq ZT0n rLGaHDooCd4ttUqiaLuzFE0e HNWtanfbq659IbMyc9opJLLw oTTyXGvhYWX5S08en9G0ZKIp MDAw MZC5oAZ5sP7syUjtezyvgRRt jXeeoeMqiWvxLXcwWThkZ612 RSLpdOvjMgZwjCi9V1FmMpf4 ZCBz yAbcLX2knPBrWUmeZb0uiSgp jSxiBJ8xHAEybfvwm020EhXa v8zuKFOnuTKyXFsnWTS0R83y b3I6 TCRrYDGbQWN1aKW8aH1tzSsp bjogbGVmdDsgdmVydGljYWwt UPjsT039JOXkrYiyHcEheOif bnQg GQdtEUx2L5VhBycjlWH+PC90 QXKhDK14sYSloQGxs0szjLr4 ClGpXKZcVLH4lLmoCLxcy1Gt ZXIt L35lgRKak8T2FKTjpNqhkDFy TrJfuNO6yP2aLUdbrufzm8ge ewhySuvhm5qrjx21yF74R43y IHdp WQHfNUVdZSJeCPZnkFnufi5r rF0rQl2+RQHcpUJ6dWL9fO2t PPKfRwJ6BWfpX447ZwUvcMWq Pjxj j7fov3bfdZl5IzA4AVJeikGn wUntXRC9p6TjBa92J39pTSmv PPFsCVApZGJfXXVbhEqibc0s dG9w Ii8+AMQnpBU7sBY8aG4bFlIh MeB6EUbmH827IcJdeZTkBmts H57oI7LpkMC+ZQOyQir1AZEq dHls BU7ngVRzEKjrNa6dWGY0FcTk XjBjRZfnM1PsMIRbjaiquwfx oPD5RXTmZXBhhF49Ds0ivFav MTBw dPXKkN5vdlapi5uvxdwwFsMr FZUxBGr9BLj9JUXjqAnsSkAv NES9DqK9DOI9qVYcbZ7xcYtq bjog zW8oX8EgBWPlwtoqTw79jI9i FmVyLvW5YHnyTij+K7NVQrEM BXFDEShNXOPPTN82EZ69oDAy c3R5 eHP7R1MmYLMpscviiqmefFL3 GJTqLSNteM78vXCoPUsvKr8z t0N1q453RLYiJGAavI02Nu8s dDog CWBtdPCTdX0bshqsq6enaysy LoZwAUFnOEc5BCa5ARIdeMwm AsFfNUS5EuQ0ZOF6cHFraE1k bGln fiqsaA0iZbb+MDEvMzEvMTk1 NjwvdGQ+OTOrTCM7aOzuNFfn VUYzyC3cLODsE5k6MtSrGlG3 MGlu Z8TsJDGdmczcSn18sB7xYtRi MfO2WFtcL3KnumB9LCEfkODq LEguQJM4W50rh8A7JXWuSPIz MDA7 mAG0fJ5ycXtyrslfqUYajThi luKfpOlgVWgnIPmgK447DNPf tHvrWaG3QMgoPAHvRV08NS28 dGQg w2K6mRH1L4WnPFPiqfohfvoz dGI3WWAcWRHzqX87lBGbJIjm Vf8si4U8b410ZNPsDNCpqX68 Zm9u hKneZFIfkAKCqH8lssvjy3eq lbhzSkVeTYRgKHk2MPw5KQEe rUiaTeCcJAI7DgW3TSR5kJVw bC1h vKycfjgieR4mTpj+TUFMRTwv dGQ+GOJzZQY1qOzjEZloMNKo eD2dAYFqM6k6LrBsElA2KNgv O3Bh RVVhwbbgMc34xB6oZnUbZaE2 VXcfF8NsbjC9DOEneHOfDReb EKV0J81bs3J0JNIoPHOvQUL4 dGV4 pL5ufPiwhaxcxBHlsUrbsnMl sFesGBrqLQkzO699HSExwPtt My41pXUgtXljubEohU7jMHYS ZWQ8 U5AxExurgDK+OX53QSSvBH68 tUYzvRKte3jmtJa8YgRmQLOg IPX2vObeNSeqb9PiLKMsI86b bGFw t4Z3EKBszVeseYSePhEwtNN4 cS3oHHahvwkmt4jvxjptVpse r3sxqq14fR03P34pRJsiCGSa PSIz QPWvWMYfuEkdlp8hdQ2aFc8+ CWRufXU0jAW1sO2hOxJaYrZ5 WExkR322RrLgqTQmLchyp3zl d2lk dZd6ClKlFGMizhDgzMgpXZI2 c0EtFs82P73pZLywJLMhKEWf FQUhRIBsnHmjns0akH8bZp6+ PC9j d2iabu08uE65cJE+PHRkIHN0 wKsrNExoJTKytL8nLIlaLcM5 EXRhNuSoaF09iPAkAKjpDf0m aWdo cRyvBZ7pGHAegklkt034DeFp m5hjHCFzrIZnDSiuXAD6P36y e5Y3NVDkVMTfHWD9rVY8lV9x bGln bjogbGVmdDsgdmVydGljYWwt SLfbZ848GSNvtLsgZmRtzRRz V7xhtrNAAF3uPuxlcTQ+PHRk IHN0 aPmvZGaeXIEkvC7yWGYcP8s2 HwMqOoV8UToxJ2MavuW3RJEa hVQbKPPzmTMMfV8osyagc5if cjog BjUsKYUuASo2GPf3YVDyhIou SrWlSKR4PqZ9OZX5zDWyrJ0d tNyrirywcM6wRgl+RklOOjwv dGQ+ DGXfZLU4aXyqYWarHPZazF3b GWTeM3b5DkRqNhU0WZxyJ4Em zmH4OWMsfNAjLEGnvZWYdP3k cztj v5vltlaiVoXeFDKdJDx6FTl6 SFFwyBhqSfYgYGR2MrO7QID4 aLQzdP9fhDgfjzjovL8tPxa+ TVJO OjwvdGQ+PAZgTLI6vHgrIUmv SEMqfX4tDAXdE6e7SbKrVkC1 AXouE4JzclQ5XPLmiHMzPVLx dCBU wQ2riamdb5zwaavwTbFxULUu CHp6BHo0FPLnkCvgWtZfSFA7 DjL2MHZ0xVIhpU1vaYarkysr dG9w Oyc+KLM0IEJ6KD37CU48N8Ws PjwvdGFibGU+PHRhYmxlIHdp SJXlQYnpIEUyWyKhySapKS2k Ym9y ZGV (more content not included)... [facility] Holter Monitoron 07-28-2023 Holter Monitor [id number]#1.00OTG TIFF [facility] CV [...] patient's symptoms. Timothy Burnett DO JOB #: [id number] bk Final Dictated by: Timothy Burnett DO Dictated DT/TM: 07/27/23 9:22 Signed (Electronic Signature): Timothy Burnett DO 07/27/23 11:35 a Technologist: LUIGI [facility] Outside Recordson 06-29-2023 Outside Records [id number]#1.00O TGTIFF [facility] Consent for Procedure/Surger yon 06-25-2023 Consent for Procedure/Surgery [id number]#1.00TIF F [facility] Consent for Treatmenton Consent for Treatment [id number]#1.00TI FF [facility] Discharge Instructionson Discharge Instructions [id number]#1.00TIF F [facility] IntraOperative Documentson 1 08-26-2022 IntraOperative Documents [id number]#1.00TIF F [facility] Main OR Intraoperative Recor don 06-25-2023 Main OR Intraoperative Record IntraOp Document Type FTPM Summary Primary Physician: Neymar Willingham MD Finalized Date/Time: 06/25/23 13:41:33 Pt. Name: MARIELAAlessandroBARRY/Sex: 1955 Male Med Rec #: [id number] Physician: Neymar Willingham MD Financial #: [id number] Pt. Type: P Room/Bed: / Admit/Disch: 06/25/23 [...] Reis RN Role Performed Surgeon - Primary Glove Pairer - Primary Scrub - Primary Time In 06/25/23 13:37:00 06/25/23 13:37:00 06/25/23 13:37:00 Time Out 06/25/23 13:42:00 06/25/23 13:42:00 06/25/23 13:42:00 Procedure TRANSFORAMINAL EPIDURAL TRANSFORAMINAL EPIDURAL TRANSFORAMINAL EPIDURAL STEROID INJECTIO(Left) STEROID INJECTIO(Left) STEROID INJECTIO(Left) Comments Last Modified By: Woodrow TREVIZO, Adry Troy RN, Adry Lawrence RN 06/25/23 13:41:29 06/25/23 13:41:29 06/25/23 13:41:29 Entry 4 Case Attendee Kimmy Chaney Role Performed Gear Hobber Time In 06/25/23 13:37:00 Time Out 06/25/23 [...] RN, Virgil Andrews RN, Tarsha Cruz MD, Joshua D, Ott, Amy Time Out Complete 06/25/23 13:37:00 Outcomes [...] L4/5 TFESI Primary Procedure Yes Primary Surgeon Neymar Willingham MD Start 06/25/23 13:40:00 Stop 06/25/23 13:41:00 Anesthesia [...] and tissue Entry 1 Skin Integrity Intact, [place], Warm, and Skin Abnormality No Dry Outcomes [...] Outcomes Me (more content not included)... Normal [facility] Main OR Preoperative Recordo n 06-25-2023 Main OR Preoperative Record Holding Area Document Type FTPM Summary Primary Physician: Neymar Willingham MD Finalized Date/Time: 06/25/23 13:18:07 Pt. Name: BARRY GALDAMEZ D.O.B./Sex: 1955 Male Med Rec #: [id number] Physician: Neymar Willingham MD Financial #: [id number] Pt. Type: P Room/Bed: / Admit/Disch: 06/25/23 [...] 13:18 Jennifer Mendieta RN 06/25/23 13:18 Normal [facility] Operative Reporton 3 Operative Report Patient: MANPREET [...] 13:09 EST Respiratory Rate 14 br/min . [facility] Comment on above: Result Comment: Elec tronically Signed By: Tarsha FARFAN, Neymar Zelaya\.br\Date and Time Signed: 06/25/23 13:41 EST Patient Correspondenceon Patient Correspondence [id number]#1.00TIF F [facility] Insurance Correspondence Off iceon 06-10-2023 Insurance Correspondence Office [id number]#1.00TIF F [facility] Office/Clinic Note-Physician on 06-08-2023 Office/Clinic Note-Physician [id number]#1.00TI FF [facility] Consent for Treatmenton 05-20 Consent for Treatment [id number]#1.00TI FF Cecilia Treviño [facility] Consultation Noteon 06-05-20 Consultation Note Patient: [...] All Problems HTN (hypertension) / SNOMED CT 4489672348 / Confirmed Hip pain, left / SNOMED CT 5071698135 / Confirmed DJD Nocturia / SNOMED CT 661135241 / Confirmed Asthma / SNOMED CT 847214675 / Confirmed Impingement syndrome of right shoulder / SNOMED CT 133041314 / Confirmed Carpal tunnel syndrome of right wrist / SNOMED CT 19386516 / Confirmed Osteoarthritis / SNOMED CT 0009666546 / Confirmed Arthritis / SNOMED CT 6949595 / Confirmed Depression / SNOMED CT 20985472 / Confirmed Hypertension / SNOMED CT 7152011064 / Confirmed Erectile dysfunction / SNOMED CT 9646633035 / Confirmed Asymptomatic microscopic hematuria / SNOMED CT 2703618381 / Confirmed Weak urine stream / SNOMED CT 068687015 / Confirmed Screening PSA (prostate specific antigen) / SNOMED CT 543689482 / Confirmed Resolved: At risk for falls / SNOMED CT 970808706 Problem added when Risk for Falls Careplan [...] hip flexion 5 -/5 Integumentary: Warm, Dry, [place]. Injection site well-healed Neurologic: Alert, Oriented. Psychiatric: [...] necessary. OARRS reviewed ANABELL score: 38% Normal [facility] Comment on above: Result Comment: Elec tronically Signed By: Ariana Urena PA-C\.br\Date and Time Signed: 06/05/23 11:22 EST\.br\Electronically Co-Signed By: Tarsha FARFAN, Neymar Zelaya\.br\Date and Time Co-Signed: 06/08/23 12:01 EST Office/Clinic Note-Physician on 06-05-2023 Office/Clinic Note-Physician [id number]#1.00TIFF Normal [facility] Patient Correspondenceon Patient Correspondence [id number]#1.00TIFF Normal [facility] Patient Correspondence [id number]#1.00TIFF Normal [facility] Patient History Officeon Patient History Office [id number]#1.00TIFF Normal [facility] Patient Handouton 05-27-2023 Patient Handout [id number]#1.00OT GTIFF [facility] Outside Recordson 05-26-2023 Outside Records [id number]#1.00OT GTIFF [facility] Patient Handouton 05-26-2023 Patient Handout [id number]#1.00OT GTIFF [facility] Consent for Procedure/Surger yon 05-19-2023 Consent for Procedure/Surgery [id number]#1.00TI FF [facility] Consent for Treatmenton 04-21 Consent for Treatment [id number]#1.00TI FF [facility] Discharge Instructionson Discharge Instructions [id number]#1.00TI FF [facility] IntraOperative Documentson 1 IntraOperative Documents [id number]#1.00TI FF [facility] Main OR Intraoperative Recor don 05-19-2023 Main OR Intraoperative Record IntraOp Document Type FTPM Summary Primary Physician: Neymar Willingham MD Finalized Date/Time: 05/19/23 14:15:08 Pt. Name: MARIELAAlessandroBARRY/Sex: 1955 Male Med Rec #: [id number] Physician: Neymar Willingham MD Financial #: [id number] Pt. Type: P Room/Bed: / Admit/Disch: 05/19/23 13:34:40 - Institution: Case Times FTPM Entry 1 Patient Times In Room 05/19/23 14:09:00 Out Room 05/19/23 14:15:00 Procedure Times Start 05/19/23 14:12:00 Stop 05/19/23 14:14:00 Anesthesia Times Last Modified By: Adry Troy RN 05/19/23 14:14:29 Case Attendance FTPM Entry 1 Entry 2 Entry 3 Case Attendee Neymar Willingham MDk RN, Adry Alanis RN, Iwona Snyder Role Performed Surgeon - Primary Glove Pairer - Primary Scrub - Primary Time In 05/19/23 14:09:00 05/19/23 14:09:00 05/19/23 14:09:00 Time Out 05/19/23 14:15:00 05/19/23 14:15:00 05/19/23 14:15:00 Procedure LUMBAR EPIDURAL STEROID LUMBAR EPIDURAL STEROID LUMBAR EPIDURAL STEROID INJECTION(.) INJECTION(.) INJECTION(.) Comments Last Modified By: Woodrow TREVIZO, Adry Troy RN, Adry Lawrence RN 05/19/23 14:14:30 05/19/23 14:14:30 05/19/23 14:14:30 Entry 4 Case Attendee Nakul Montes Role Performed Gear Hobber Time In 05/19/23 14:09:00 Time Out 05/19/23 [...] X-ray Applicable) PreOp Antibiotic No Time Out Woodrow TREVIZO, Adry Aguirre, Given Participants Annabelle TREVIZO, Tarsha Goodwin MD, Neymar Zelaya, Nakul Montes Time Out Complete 05/19/23 14:09:00 Outcomes Met? [...] and tissue Entry 1 Skin Integrity Intact, [place], Warm, and Skin Abnormality No Dry Outcomes [...] Troy RN (more content not included)... Normal [facility] Main OR Preoperative Recordo n 05-19-2023 Main OR Preoperative Record Holding Area Document Type FTPM Summary Primary Physician: Neymar Willingham MD Finalized Date/Time: 05/19/23 13:52:06 Pt. Name: BARRY GALDAMEZ /Sex: 1955 Male Med Rec #: [id number] Physician: Neymar Willingham MD Financial #: [id number] Pt. Type: P Room/Bed: / Admit/Disch: 05/19/23 [...] By: Jennifer Mendieta RN 05/19/23 13:52 Normal [facility] Operative Reporton Operative Report Patient: MANPREET GALDAMEZ [...] EDT Respiratory Rate 14 br/min . Normal [facility] Comment on above: Result Comment: Elec tronically Signed By: Neymar Willingham MD\.br\Date and Time Signed: 05/19/23 14:14 EDT Patient Correspondenceon Patient Correspondence [id number]#1.00CD: 127 [facility] Insurance Correspondence Off iceon 04-13-2023 Insurance Correspondence Office [id number]#1.00CD: 127 Normal [facility] Consent for Treatmenton 03-21 Consent for Treatment [id number]#1.00CD: 127 Normal [facility] Consultation Noteon 04-08-20 Consultation Note Patient: MANPREET [...] All Problems HTN (hypertension) / SNOMED CT 1492649951 / Confirmed Hip pain, left / SNOMED CT 9639465453 / Confirmed DJD Nocturia / SNOMED CT 773798510 / Confirmed Asthma / SNOMED CT 978247467 / Confirmed Impingement syndrome of right shoulder / SNOMED CT 840266251 / Confirmed Carpal tunnel syndrome of right wrist / SNOMED CT 04918825 / Confirmed Osteoarthritis / SNOMED CT 8895232569 / Confirmed Arthritis / SNOMED CT 2070700 / Confirmed Depression / SNOMED CT 52724050 / Confirmed Hypertension / SNOMED CT 3577207312 / Confirmed Erectile dysfunction / SNOMED CT 3114752196 / Confirmed Asymptomatic microscopic hematuria / SNOMED CT 2169097269 / Confirmed Weak urine stream / SNOMED CT 323878697 / Confirmed Screening PSA (prostate specific antigen) / SNOMED CT 492985472 / Confirmed Resolved: At risk for falls / SNOMED CT 047456461 Problem added when Risk for Falls Careplan [...] seated straight leg raise. Integumentary: Warm, Dry, M[place]. Neurologic: Alert, Oriented. Psychiatric: Cooperative, Appropriate mood [...] sooner if necessary. ANABELL score: 60% Normal [facility] Comment on above: Result Comment: Elec tronically Signed By: Ariana Urena PA-C\.br\Date and Time Signed: 04/08/23 13:30 EDT\.br\Electronically Co-Signed By: García Castro DO\.br\Date and Time Co-Signed: 04/14/23 11:06 EDT Office/Clinic Note-Physician on 04-08-2023 Office/Clinic Note-Physician [id number]#1.00CD: 127 Normal [facility] Patient Correspondenceon Patient Correspondence [id number]#1.00CD: 127 Normal [facility] Patient Correspondence [id number]#1.00CD: 127 Normal [facility] Patient History Officeon Patient History Office [id number]#1.00CD: 127 Normal [facility] Office Visit (Cardiology)on 03-26-2023 Follow-up visit Diagnoses/Problems Assessed Coronary artery disease involving diomede coronary artery of diomede heart without angina pectoris (414.01) (I25.10) Hypertension, benign (401.1) (I10) Mixed hyperlipidemia (272.2) (E78.2) Former smoker (V15.82) (Z87.891) quit as a teen Class 1 obesity with body mass index (BMI) of 34.0 to 34.9 in adult (278.00,V85.34) (E66.9,Z68.34) Orders Class 1 obesity with body mass index (BMI) of 34.0 to 34.9 in adult Healthy Weight Tips; Status:Complete - Retrospective Authorization; Done: [id number] Coronary artery disease involving diomede coronary artery of diomede heart without angina pectoris Start: Clopidogrel Bisulfate 75 MG Oral Tablet; ONE PILL MON -FRI ( 5 TIMES WEEKLY) SocHx: Former smoker Tobacco Use Screening; Status:Complete; Done: [id number] Patient Instructions Please bring all medicines, vitamins, [...] [place], utilizing a 2.5 x 34 mm [place] stent to the distal LAD, 2.75 x 18 mm [place] stent in the mid LAD, and a 2.25 x 18 mm [place] stent to the diagonal branch at the [...] negative for complaint. Vitals Vital Signs Recorded: [id number] 11:21AM Heart Rate64, R Radial Gufngwaw676, LUE, Sitting Pyiisxiib22, LUE, Sitting Height6 ft Cloqrh666 lb BMI Spzrswjljq79.99 kg/m2 BSA Calculated2.37 Tobacco Useb) No PHQ-2 #1. Over the last 2 weeks have you felt down, depressed or hopeless? (If yes, answer PHQ-9 below)No PHQ-2 #2. Over the last 2 weeks have you felt little intere (more content not included)... Normal [facility] Tobacco Screening.on 023 Adult depression screening assessment No [facility] DO Work Phone: Fall risk assessment a) No falls within the last year [facility] [employer] DO Work Phone: Tobacco use status [facility] b) No M [facility] retickrus[facility] y 250 DO Work Phone: Consent for Treatmenton 12-19 Consent for Treatment [id number]#1.00CD: 127 Normal [facility] Consultation Noteon 01-10-20 Consultation Note Patient: MANPREET [...] All Problems HTN (hypertension) / SNOMED CT 2529805134 / Confirmed Hip pain, left / SNOMED CT 2366817121 / Confirmed DJD Nocturia / SNOMED CT 569275084 / Confirmed Asthma / SNOMED CT 723858964 / Confirmed Impingement syndrome of right shoulder / SNOMED CT 731587506 / Confirmed Carpal tunnel syndrome of right wrist / SNOMED CT 36341950 / Confirmed Osteoarthritis / SNOMED CT 5964188803 / Confirmed Arthritis / SNOMED CT 4730348 / Confirmed Depression / SNOMED CT 58236663 / Confirmed Hypertension / SNOMED CT 4917837019 / Confirmed Erectile dysfunction / SNOMED CT 1109469568 / Confirmed Asymptomatic microscopic hematuria / SNOMED CT 8940995918 / Confirmed Weak urine stream / SNOMED CT 238218587 / Confirmed Screening PSA (prostate specific antigen) / SNOMED CT 501036992 / Confirmed Resolved: At risk for falls / SNOMED CT 121435632 Problem added when Risk for Falls Careplan [...] of motion. Normal strength. Integumentary: Warm, Dry, [place]. Injection site well-healed Neurologic: Alert, Oriented. Psychiatric: [...] follow-up as needed. ANABELL score: 6% Normal [facility] Comment on above: Result Comment: Elec tronically Signed By: Ariana Urena PA-C\.br\Date and Time Signed: 01/09/23 13:29 EDT\.br\Electronically Co-Signed By: Ilya Bullock MD\.br\Date and Time Co-Signed: 01/14/23 11:33 EDT Office/Clinic Note-Physician on 01-09-2023 Office/Clinic Note-Physician [id number] D:127 Normal [facility] Patient Correspondenceon Patient Correspondence [id number]#1.00C D:127 Normal [facility] Patient Correspondence [id number]#1.00C D:127 Normal [facility] Patient History Officeon Patient History Office [id number]#1.00C D:127 Normal [facility] Office Visit (Cardiology)on 10-29-2022 Follow-up visit Diagnoses/Problems Assessed Hypertension, benign (401.1) (I10) Class 1 obesity with body mass index (BMI) of 34.0 to 34.9 in adult (278.00,V85.34) (E66.9,Z68.34) Orders Class 1 obesity with body mass index (BMI) of 34.0 to 34.9 in adult Healthy Weight Tips; Status:Complete; Done: [id number] Patient Instructions PLAN: Through informed decision making [...] Recorded: 29Oct2022 01:07PM Heart Rate66, R Radial Kqmjcgnf204, RUE, Sitting [id number], RUE, Sitting Height6 ft Syljll786 lb BMI Vvteqdwhtt91.72 kg/m2 BSA Calculated2.37 Tobacco Useb) No Falls [...] affect . (more content not included)... [facility]on 09-[facility]-2022 Follow-up visit Diagnoses/Problems Assessed Coronary artery disease involving diomede coronary artery of diomede heart without angina pectoris (414.01) (I25.10) History [...] 18Sep2022 12:00PMRe (more content not included)... Normal [employer] Tobacco Screening.on 023 Adult depression screening assessment No [facility] y 250 DO Work Phone: Fall risk assessment a) No falls within the last year [facility] y 250 DO Work Phone: Tobacco use status [facility] b) No M [facility] retickrusk y 250 DO Work Phone: MRI LSPINE [...] by: NATACHA RENDON Date: 2022-05-22 19:43 Normal [facility] XR FOREIGN BODY EYEon 2021 XR FOREIGN BODY EYE EXAMINATION: XR FORE IGN BODY EYE HISTORY: Foreign body in eye COMPARISON: No relevant comparison available. FINDINGS: ORBITS: Negative for a metallic foreign body. OTHER: Negative. IMPRESSION: No metallic foreign body in the orbits Electronically authenticated by: NATACHA RENDON Date: 2022-05-22 14:05 Normal [facility] CULTURE BLOODon 05-01-2022 Microscopic examination of blood, culture Culture Observations: Anaerobic bottle only positive Culture Observations: BCID- Staph epidermidis Culture Observations: NO GROWTH AT 5 DAYS IN AEROBIC BOTTLE. Culture Observations: METHICILLIN RESISTANT STAPH EPIDERMIDIS ISOLATED. PLEASE FOLLOW APPROPRIATE ISOLATION PROCEDURES. Culture Observations: FAXED RESULT TO PER YAKOV 04/28 @ 1015 Isolate 1 [...] F Oxacillin >=4 R F Normal [facility] Comment on above: Performed By: #### H STROPN #### [facility] [address] [place] [address] Dr. Troy Hickey BLOOD CULTURE ID PANELon A. baumannii Not detected Normal NOT DETECTED [facility] Comment on above: Performed By: #### B CID2 #### [facility] [address] [place] [address] Dr. Troy Hickey Bacteriodes fragilis Not detected Normal NOT DETECTED [facility] Comment on above: Performed By: #### B CID2 #### [facility] [address] [address] [address] Troy Hickey BCID CONTROLS PASSED Normal [facility] Comment on above: Performed By: #### B CID2 #### [facility] [address] [place] [address] Dr. Troy Hickey BCIDBTHD BLOOD CULTURE BOTTLE INFORMATION [facility] Comment on above: Performed By: #### B CID2 #### [facility] [address] [address] [address] Troy Hickey BCIDHD1 ANTIMICROBIAL RESIST ANCE GENES [facility] Comment on above: Performed By: #### B CID2 #### [facility] [address] [place] [address] Dr. Troy Hickey BCIDHD2 SEE BELOW [facility] Comment on above: Result Comment: Note : Antimicrobial resitance can occur via multiple mechanisms. A Not Detected result for the [employer] antomicrobial resistance gene assays does not indicate antimicrobial susceptibility. Subculturing is required for species identification and susceptibility testing of isolates. Performed By: #### B CID2 #### [facility] [address] [place] [address] Dr. Troy Hickey BCIDHD3 Positive [facility] Comment on above: Performed By: #### B CID2 #### [facility] [address] [place] [address] Dr. Troy Hickey BCIDHD4 Negative [facility] Comment on above: Performed By: #### B CID2 #### [facility] [address] [place] [address] Dr. Troy Hickey BCIDHD5 YEAST [facility] Comment on above: Performed By: #### B CID2 #### [facility] [address] [place] [address] Dr. Troy Hickey Bottle Set: Set 2 [facility] Comment on above: Performed By: #### B CID2 #### [facility] [address] [place] [address] Dr. Troy Hickey Bottle: Anaerobic [facility] Comment on above: Performed By: #### B CID2 #### [facility] [address] [place] [address] Dr. Troy Hickey C. neoformans/gattii Not detected Normal NOT DETECTED [facility] Comment on above: Performed By: #### B CID2 #### [facility] [address] [place] [address] Dr. Troy Hickey Eunice albicans Not detected Normal NOT DETECTED [facility] Comment on above: Performed By: #### B CID2 #### [facility] [address] [place] [address] Dr. Troy Hickey Eunice auris Not detected Normal NOT DETECTED [facility] Comment on above: Performed By: #### B CID2 #### [facility] [address] [place] [address] Dr. Troy Hickey Eunice glabrata Not detected Normal NOT DETECTED [facility] Comment on above: Performed By: #### B CID2 #### [facility] [address] [place] [address] Dr. Troy Hickey Eunice Krusei Not detected Normal NOT DETECTED [facility] Comment on above: Performed By: #### B CID2 #### [facility] [address] [place] [address] Dr. Troy Hickey Eunice Parapsilosis Not detected Normal NOT DETECTED [facility] Comment on above: Performed By: #### B CID2 #### [facility] [address] [place] [address] Dr. Troy Hickey Eunice Tropicalis Not detected Normal NOT DETECTED [facility] Comment on above: Performed By: #### B CID2 #### [facility] [address] [place] [address] Dr. Troy Hickey CTX-M Resistant Gene Not Applicable Normal NOT DETECTED [facility] Comment on above: Performed By: #### B CID2 #### [facility] [address] [place] [address] Dr. Troy Hickey E. Cloacae complex Not detected Normal NOT DETECTED [facility] Comment on above: Performed By: #### B CID2 #### [facility] [address] [place] [address] Dr. Yilan Hickey E. faecalis Not detected Normal NOT DETECTED [facility] Comment on above: Performed By: #### B CID2 #### [facility] [address] [place] [address] Dr. Troy Hickey E. faecium Not detected Normal NOT DETECTED [facility] Comment on above: Performed By: #### B CID2 #### [facility] [address] [place] [address] Dr. Troy Hickey Enterobacteriaceae Not detected Normal NOT DETECTED [facility] Comment on above: Performed By: #### B CID2 #### [facility] [address] [place] [address] Dr. Troy Hickey Escherichia coli Not detected Normal NOT DETECTED [facility] Comment on above: Performed By: #### B CID2 #### [facility] [address] [place] [address] Dr. Troy Hickey H. influenzae Not detected Normal NOT DETECTED [facility] Comment on above: Performed By: #### B CID2 #### [facility] [address] [place] [address] Dr. Troy Hickey IMP Resistant Gene Not Applicable Normal NOT DETECTED [facility] Comment on above: Performed By: #### B CID2 #### [facility] [address] [place] [address] Dr. Troy Hickey K. oxytoca Not detected Normal NOT DETECTED [facility] Comment on above: Performed By: #### B CID2 #### [facility] [address] [place] [address] Dr. Troy Hickey K. pneumoniae Not detected Normal NOT DETECTED [facility] Comment on above: Performed By: #### B CID2 #### [facility] [address] [place] [address] Dr. Troy Hickey Klebsiella aerogenes Not detected Normal NOT DETECTED [facility] Comment on above: Performed By: #### B CID2 #### [facility] [address] [place] [address] Dr. Troy Hickey KPC Resistant Gene Not detected Normal NOT DETECTED [facility] Comment on above: Performed By: #### B CID2 #### [facility] [address] [place] [address] Dr. Troy Hickey List. monocytogenes Not detected Normal NOT DETECTED [facility] Comment on above: Performed By: #### B CID2 #### [facility] [address] [place] [address] Dr. Troy Hickey Mcr-1 Resistant Gene Not Applicable Normal NOT DETECTED [facility] Comment on above: Performed By: #### B CID2 #### [facility] [address] [place] [address] Dr. Troy Hickey mecA/C Detected Abnormal NOT DETECTED [facility] Comment on above: Performed By: #### B CID2 #### [facility] [address] [place] [address] Dr. Troy Hickey mecA/C MREJ Not Applicable Normal NOT DETECTED [facility] Comment on above: Performed By: #### B CID2 #### [facility] [address] [place] [address] Dr. Troy Hickey N. meningitidis Not detected Normal NOT DETECTED [facility] Comment on above: Performed By: #### B CID2 #### [facility] [address] [place] [address] Dr. Troy Hickey NDM Resistant Gene Not Applicable Normal NOT DETECTED [facility] Comment on above: Performed By: #### B CID2 #### [facility] [address] [place] [address] Dr. Troy Hickey Oxa-48-like Not Applicable Normal NOT DETECTED [facility] Comment on above: Performed By: #### B CID2 #### [facility] [address] [place] [address] Dr. Troy Hickey Proteus Not detected Normal NOT DETECTED [facility] Comment on above: Performed By: #### B CID2 #### [facility] [address] [place] [address] Dr. Troy Hickey Pseud. aeruginosa Not detected Normal NOT DETECTED [facility] Comment on above: Performed By: #### B CID2 #### [facility] [address] [place] [address] Dr. Troy Hickey S. maltophilia Not detected Normal NOT DETECTED [facility] Comment on above: Performed By: #### B CID2 #### [facility] [address] [place] [address] Dr. Troy Hickey Salmonella Not detected Normal NOT DETECTED [facility] Comment on above: Performed By: #### B CID2 #### [facility] [address] [place] [address] Dr. Troy Hickey Seratia marcescens Not detected Normal NOT DETECTED [facility] Comment on above: Performed By: #### B CID2 #### [facility] [address] [place] [address] Dr. Troy Hickey Site: right arm Normal [facility] Comment on above: Performed By: #### B CID2 #### [facility] [address] [place] [address] Dr. Troy Hickey Staph. aureus Not detected Normal NOT DETECTED [facility] Comment on above: Performed By: #### B CID2 #### [facility] [address] [place] [address] Dr. Troy Hickey Staph. epidermidis Detected Abnormal NOT DETECTED [facility] Comment on above: Performed By: #### B CID2 #### [facility] [address] [place] [address] Dr. Troy Hickey Staph. lugdunensis Not detected Normal NOT DETECTED [facility] Comment on above: Performed By: #### B CID2 #### [facility] [address] [place] [address] Dr. Troy Hickey Staphylococcus Detected Abnormal NOT DETECTED [facility] Comment on above: Performed By: #### B CID2 #### [facility] [address] [place] [address] Dr. Troy Hickey Strep. agalactiae Not detected Normal NOT DETECTED [facility] Comment on above: Performed By: #### B CID2 #### [facility] [address] [place] [address] Dr. Troy Hickey Strep. pneumoniae Not detected Normal NOT DETECTED [facility] Comment on above: Performed By: #### B CID2 #### [facility] [address] [place] [address] Dr. Troy Hickey Strep. pyogenes Not detected Normal NOT DETECTED [facility] Comment on above: Performed By: #### B CID2 #### [facility] [address] [place] [address] Dr. Troy Hickey Streptococcus Not detected Normal NOT DETECTED [facility] Comment on above: Performed By: #### B CID2 #### [facility] [address] [place] [address] Dr. Troy Hickey Franc/Blair Resist. Gene Not detected Normal NOT DETECTED [facility] Comment on above: Performed By: #### B CID2 #### [facility] [address] [place] [address] Dr. Troy Hickey VIM Resistant Gene Not Applicable Normal NOT DETECTED [facility] Comment on above: Performed By: #### B CID2 #### [facility] [address] [place] [address] Dr. Troy Hickey BNPon 04-25-2022 Natriuretic peptide B (Bld) [Mass/Vol] 239.0 pg/mL Normal <=900.0 [facility] Comment on above: Performed By: #### B SENIOR SOLUTIONS CONSULTANT, HSTROPN, CMP #### [facility] [address] [place] [address] Dr. Troy Hickey CBC AUTO DIFFon 04-25-2022 BASO # 0.1 103/ul Normal 0.0-0.1 [facility] Comment on above: Performed By: #### H STROPN #### [facility] [address] [place] [address] Dr. Troy Hickey Basophils/100 WBC (Bld) 0.3 % Normal 0.2-2.0 [facility] Comment on above: Performed By: #### H STROPN #### [facility] [address] [place] [address] Dr. Troy Hickey EO # 0.0 103/ul Normal 0.0-0.7 [facility] Comment on above: Performed By: #### H STROPN #### [facility] [address] [address] [address] Troy Hickey Eosinophils/100 WBC (Bld) 0.1 % Critically low 0.9-7.0 [facility] Comment on above: Performed By: #### H STROPN #### [facility] [address] [place] [address] Dr. Troy Hickey Erythrocyte distribution width (RBC) [Ratio] 13.5 % Normal 11.0-15.0 [facility] Comment on above: Performed By: #### H STROPN #### [facility] [address] [place] [address] Dr. Troy Hickey Hematocrit (Bld) [Volume fraction] 33.0 % Critically low 42.0-54.0 [facility] Comment on above: Performed By: #### H STROPN #### [facility] [address] [place] [address] Dr. Troy Hickey Hemoglobin (Bld) [Mass/Vol] 10.4 g/dL Critically low 14.0-18.0 [facility] Comment on above: Performed By: #### H STROPN #### [facility] [address] [place] [address] Dr. Troy Hickey IG # 0.08 10e3/ul Critically high 0.00-0.03 [facility] Comment on above: Performed By: #### H STROPN #### [facility] [address] [place] [address] Dr. Troy Hickey IG % 0.5 % Normal 0.0-0.5 [facility] Comment on above: Performed By: #### H STROPN #### [facility] [address] [place] [address] Dr. Troy Hickey LYMPH # 0.8 103/ul Critically low 1.2-3.[address] [facility] Comment on above: Performed By: #### H STROPN #### [facility] [address] [place] [address] Dr. Troy Hickey Lymphocytes/100 WBC (Bld) 4.3 % Critically low 20.5-60.0 [facility] Comment on above: Performed By: #### H STROPN #### [facility] [address] [address] [address] Troy Hickey MANUAL DIFF REQ NO Normal [facility] Comment on above: Performed By: #### H STROPN #### [facility] [address] [place] [address] Dr. Troy Hickey MCH (RBC) [Entitic mass] 25.3 pg Critically low 25.9-34.0 [facility] Comment on above: Performed By: #### H STROPN #### [facility] [address] [place] [address] Dr. Troy Hickey MCHC (RBC) [Mass/Vol] 31.5 g/dL Normal 29.9-35.2 [facility] Comment on above: Performed By: #### H STROPN #### [facility] [address] [place] [address] Dr. Troy Hickye MCV (RBC) [Entitic vol] 80.3 fL Normal 80.0-94.0 [facility] Comment on above: Performed By: #### H STROPN #### [facility] [address] [place] [address] Dr. Troy Hickey MONO # 0.6 103/ul Normal 0.3-0.8 [facility] Comment on above: Performed By: #### H STROPN #### [facility] [address] [place] [address] Dr. Troy Hickey Monocytes/100 WBC (Bld) 3.4 % Normal 1.7-12.0 [facility] Comment on above: Performed By: #### H STROPN #### [facility] [address] [address] [address] Troy Hickey NEUT # 16.0 103/ul Critically high 1.4-6.5 [facility] Comment on above: Performed By: #### H STROPN #### [facility] [address] [place] [address] Dr. Troy Hickey Neutrophils/100 WBC (Bld) 91.4 % Critically high 43.0-75.0 [facility] Comment on above: Performed By: #### H STROPN #### [facility] [address] [address] [address] Troy Hickey Platelet mean volume (Bld) [Entitic vol] 8.9 fL Critically low 9.5-13.5 [facility] Comment on above: Performed By: #### H STROPN #### [facility] [address] [address] [address] Troy Hickey PLT 269 103/ul Normal 150-450 [facility] Comment on above: Performed By: #### H STROPN #### [facility] [address] [address] [address] Troy Hickey RBC 4.11 106/ul Critically low 4.70-6.10 [facility] Comment on above: Performed By: #### H STROPN #### [facility] [address] [address] [address] Troy Hickey WBC 17.5 103/ul Critically high 4.0-11.0 [facility] Comment on above: Performed By: #### H STROPN #### [facility] [address] [address] [address] Troy Hickey CULTURE BLOODon 04-25-2022 Microscopic examination of blood, culture Culture Observations: NO GROWTH AT 5 DAYS. Normal [facility] Comment on above: Performed By: #### H STROPN #### [facility] [address] [address] [address] Troy Hickey [facility] SARS-CoV-2 (COVID-19) RNA ERNIE+probe Ql (Unsp spec) Not detected Normal NOT DETECTED [facility] Comment on above: Result Comment: When [...] for this test is supported by the [place] [employer]'s declaration that [...] used). Performed By: #### C VDTB #### [facility] [address] [place] [address] Dr. Troy Hickey INFLUENZA A AND B AGon 04-25 INFLUENZA A AG Negative Normal NEGATIVE SEE COMMENT [facility] Comment on above: Performed By: #### I NFLUAB #### [facility] [address] [place] [address] Dr. Troy Hickey INFLUENZA B AG Negative Normal NEGATIVE SEE COMMENT [facility] Comment on above: Performed By: #### I NFLUAB #### [facility] [address] [place] [address] Dr. Troy Hickey INTERNAL CONTROLS Within Normal Limits Normal Wi thin Normal Limits [facility] Comment on above: Performed By: #### I NFLUAB #### [facility] [address] [place] [address] Dr. Troy Hickey LACTATE/LACTIC ACIDon 2021 Lactate [Moles/Vol] 1.5 mmol/L Normal 0.4-1.9 [facility] Comment on above: Performed By: #### L ACT #### [facility] [address] [place] [address] Dr. Troy Hickey PROF 14(COMP METB)on 022 Albumin [Mass/Vol] 3.6 g/dL Normal 3.4-5.0 [facility] Comment on above: Performed By: #### B SENIOR SOLUTIONS CONSULTANT, HSTROPN, CMP #### [facility] [address] [place] [address] Dr. Troy Hickey Albumin/Globulin [Mass ratio] 0.8 {ratio} Normal [facility] Comment on above: Performed By: #### B SENIOR SOLUTIONS CONSULTANT, HSTROPN, CMP #### [facility] [address] [address] [address] Troy Hickey ALP [Catalytic activity/Vol] 144 U/L Critically high 46-116 [facility] Comment on above: Performed By: #### B SENIOR SOLUTIONS CONSULTANT, HSTROPN, CMP #### [facility] [address] [address] [address] Troy Hickey ALT [Catalytic activity/Vol] 17 U/L Normal 16-63 [facility] Comment on above: Performed By: #### B SENIOR SOLUTIONS CONSULTANT, HSTROPN, CMP #### [facility] [address] [address] [address] Troy Hickey Anion gap [Moles/Vol] 9.0 mmol/L Normal [facility] Comment on above: Performed By: #### B SENIOR SOLUTIONS CONSULTANT, HSTROPN, CMP #### [facility] [address] [place] [address] Dr. Troy Hickey AST [Catalytic activity/Vol] 15 U/L Normal 15-37 [facility] Comment on above: Performed By: #### B SENIOR SOLUTIONS CONSULTANT, HSTROPN, CMP #### [facility] [address] [address] [address] Troy Hickey Bilirubin [Mass/Vol] 0.7 mg/dL Normal 0.2-1.0 [facility] Comment on above: Performed By: #### B SENIOR SOLUTIONS CONSULTANT, HSTROPN, CMP #### [facility] [address] [place] [address] Dr. Troy Hickey Calcium [Mass/Vol] 9.0 mg/dL Normal 8.5-10.1 [facility] Comment on above: Performed By: #### B SENIOR SOLUTIONS CONSULTANT, HSTROPN, CMP #### [facility] [address] [address] [address] Troy Hickey Chloride [Moles/Vol] 101 mmol/L Normal 98-107 [facility] Comment on above: Performed By: #### B SENIOR SOLUTIONS CONSULTANT, HSTROPN, CMP #### [facility] [address] [address] [address] Troy Hickey CO2 [Moles/Vol] 29.0 mmol/L Normal 21.0-32.0 [facility] Comment on above: Performed By: #### B SENIOR SOLUTIONS CONSULTANT, HSTROPN, CMP #### [facility] [address] [place] [address] Dr. Troy Hickey Creatinine [Mass/Vol] 0.94 mg/dL Normal 0.70-1.30 [facility] Comment on above: Performed By: #### B SENIOR SOLUTIONS CONSULTANT, HSTROPN, CMP #### [facility] [address] [place] [address] Dr. Troy Hickey EGFR-AF MAURITANIAN >60 Normal >=60 [facility] Comment on above: Performed By: #### B SENIOR SOLUTIONS CONSULTANT, HSTROPN, CMP #### [facility] [address] [place] [address] Dr. Troy Hickey EGFR-NON AF MAURITANIAN >60 Normal >=60 [facility] Comment on above: Performed By: #### B SENIOR SOLUTIONS CONSULTANT, HSTROPN, CMP #### [facility] [address] [place] [address] Dr. Troy Hickey Globulin (S) [Mass/Vol] 4.3 g/dL Normal [facility] Comment on above: Performed By: #### B SENIOR SOLUTIONS CONSULTANT, HSTROPN, CMP #### [facility] [address] [place] [address] Dr. Troy Hickey Glucose [Mass/Vol] 187 mg/dL Critically high 74-106 [facility] Comment on above: Performed By: #### B SENIOR SOLUTIONS CONSULTANT, HSTROPN, CMP #### [facility] [address] [place] [address] Dr. Troy Hickey Potassium [Moles/Vol] 4.0 mmol/L Normal 3.5-5.1 [facility] Comment on above: Performed By: #### B SENIOR SOLUTIONS CONSULTANT, HSTROPN, CMP #### [facility] [address] [place] [address] Dr. Troy Hickey Protein [Mass/Vol] 7.9 g/dL Normal 6.4-8.2 [facility] Comment on above: Performed By: #### B SENIOR SOLUTIONS CONSULTANT, HSTROPN, CMP #### [facility] [address] [address] [address] Troy Hickey Sodium [Moles/Vol] 135 mmol/L Critically low 136-145 [facility] Comment on above: Performed By: #### B SENIOR SOLUTIONS CONSULTANT, HSTROPN, CMP #### [facility] [address] [address] [address] Troy Hickey Urea nitrogen [Mass/Vol] 15.0 mg/dL Normal 7.0-18.0 [facility] Comment on above: Performed By: #### B SENIOR SOLUTIONS CONSULTANT, HSTROPN, CMP #### [facility] [address] [address] [address] Troy Hickey Urea nitrogen/Creatinine [Mass ratio] 16.0 mg/mg Normal [facility] Comment on above: Performed By: #### B SENIOR SOLUTIONS CONSULTANT, HSTROPN, CMP #### [facility] [address] [place] [address] Dr. Troy Hickey TROPONIN, HIGH SENSITIVITYon 04-25-2022 HSTROP 11.1 pg/mL Normal 4.0-76.1 [facility] Comment on above: Result Comment: CUT- OFF POINTS HAVE BEEN ESTABLISHED BASED ON THE FOURTH UNIVERSAL DEFINITIONS OF MYOCARDIAL INFARCTION. THE UPPER REFERENCE LIMIT (URL) OF TROPONIN, DEFINED THE 99TH PERCENTILE OF cTnI DISTRIBUTION IN A REFERENCE POPULATION, HAS BEEN CONFIRMED THE DECISION THRESHOLD FOR SC DIAGNOSIS. Performed By: #### B SENIOR SOLUTIONS CONSULTANT, HSTROPN, CMP #### [facility] [address] [place] [address] Dr. Troy Hickey XR CHEST 1 Von [...] SANDER MOCTEZUMA Date: 2022-04-25 15:38 Normal [facility] XR CHEST 2 Von 04-23-2022 XR [...] by: JEAN-PAUL SALAS Date: 2022-04-23 11:36 Normal [facility] XR LSPINE MIN 4 VIEWSon [...] by: JEAN-PAUL SALAS Date: 2022-04-02 15:11 Normal [facility] Tobacco Screening.on Tobacco use status CPHS b) No M [facility] 250 DO Work Phone: PROF 14(COMP METB)on Albumin [Mass/Vol] 3.5 g/dL Normal 3.4-5.0 [facility] Comment on above: Performed By: #### C MP #### [facility] [address], [place] [address] Dr. Troy Hickey Albumin/Globulin [Mass ratio] 0.9 {ratio} Normal [facility] Comment on above: Performed By: #### C MP #### [facility] [address], [place] [address] Dr. Troy Hickey ALP [Catalytic activity/Vol] 104 U/L Normal 46-116 [facility] Comment on above: Performed By: #### C MP #### [facility] [address] [address] [address] Troy Hickey ALT [Catalytic activity/Vol] 19 U/L Normal 16-63 [facility] Comment on above: Performed By: #### C MP #### [facility] [address] [address] [address] Troy Hickey Anion gap [Moles/Vol] 11.7 mmol/L Normal Th [facility] Comment on above: Performed By: #### C MP #### [facility] [address] [address] [address] Troy Hickey AST [Catalytic activity/Vol] 9 U/L Critically low 15-37 [facility] Comment on above: Performed By: #### C MP #### [facility] [address] [address] [address] Troy Hickey Bilirubin [Mass/Vol] 0.4 mg/dL Normal 0.2-1.0 [facility] Comment on above: Performed By: #### C MP #### [facility] [address] [address] [address] Troy Hickey Calcium [Mass/Vol] 8.7 mg/dL Normal 8.5-10.1 [facility] Comment on above: Performed By: #### C MP #### [facility] [address] [address] [address] Troy Hickey Chloride [Moles/Vol] 104 mmol/L Normal 98-107 [facility] Comment on above: Performed By: #### C MP #### [facility] [address] [address] [address] Troy Hickey CO2 [Moles/Vol] 28.9 mmol/L Normal 21.0-32.0 [facility] Comment on above: Performed By: #### C MP #### [facility] [address] [address] [address] Troy Hickey Creatinine [Mass/Vol] 1.02 mg/dL Normal 0.70-1.30 [facility] Comment on above: Performed By: #### C MP #### [facility] [address] [address] [address] Troy Hickey EGFR-AF MAURITANIAN >60 Normal >=60 [facility] Comment on above: Performed By: #### C MP #### [facility] [address] [address] [address] Troy Hickey EGFR-NON AF MAURITANIAN >60 Normal >=60 [facility] Comment on above: Performed By: #### C MP #### [facility] [address] [address] [address] Troy Hickey Globulin (S) [Mass/Vol] 3.8 g/dL Normal [facility] Comment on above: Performed By: #### C MP #### [facility] [address] [address] [address] Troy Hickey Glucose [Mass/Vol] 121 mg/dL Critically high 74-106 [facility] Comment on above: Performed By: #### C MP #### [facility] [address] [address] [address] Troy Hickey Potassium [Moles/Vol] 4.6 mmol/L Normal 3.5-5.1 [facility] Comment on above: Performed By: #### C MP #### [facility] [address] [place] [address] Dr. Troy Hickey Protein [Mass/Vol] 7.3 g/dL Normal 6.4-8.2 [facility] Comment on above: Performed By: #### C MP #### [facility] [address] [address] [address] Troy Hickey Sodium [Moles/Vol] 140 mmol/L Normal 136-145 [facility] Comment on above: Performed By: #### C MP #### [facility] [address] [address] [address] Troy Hickey Urea nitrogen [Mass/Vol] 45.0 mg/dL Critically high 7.0-18.0 [facility] Comment on above: Performed By: #### C MP #### [facility] [address] [address] [address] Troy Hickey Urea nitrogen/Creatinine [Mass ratio] 44.1 mg/mg Normal [facility] Comment on above: Performed By: #### C MP #### [facility] [address] [place] [address] Dr. Troy Hickey Tobacco Screening.on 022 Adult depression screening assessment No [facility] 250 DO Work Phone: Fall risk assessment b) One or more fall s in the last year [facility] 250 DO Work Phone: Tobacco use status CPHS b) No M [facility] 250 DO Work Phone: BNPon 11-23-2021 Natriuretic peptide B (Bld) [Mass/Vol] 153.0 pg/mL Normal <=900.0 [facility] Comment on above: Performed By: #### H STROPN #### [facility] [address] [place] [address] Dr. Troy Hickey CBC AUTO DIFFon 11-23-2021 BASO # 0.1 103/ul Normal 0.0-0.1 [facility] Comment on above: Performed By: #### H STROPN #### [facility] [address] [place] [address] Dr. Troy Hickey Basophils/100 WBC (Bld) 0.7 % Normal 0.2-2.0 [facility] Comment on above: Performed By: #### H STROPN #### [facility] [address] [place] [address] Dr. Troy Hickey EO # 0.4 103/ul Normal 0.0-0.7 [facility] Comment on above: Performed By: #### H STROPN #### [facility] [address] [place] [address] Dr. Troy Hikcey Eosinophils/100 WBC (Bld) 4.2 % Normal 0.9-7.0 [facility] Comment on above: Performed By: #### H STROPN #### [facility] [address] [place] [address] Dr. Troy Hickey Erythrocyte distribution width (RBC) [Ratio] 14.2 % Normal 11.0-15.0 [facility] Comment on above: Performed By: #### H STROPN #### [facility] [address] [place] [address] Dr. Troy Hickey Hematocrit (Bld) [Volume fraction] 40.2 % Critically low 42.0-54.0 [facility] Comment on above: Performed By: #### H STROPN #### [facility] [address] [place] [address] Dr. Troy Hickey Hemoglobin (Bld) [Mass/Vol] 12.4 g/dL Critically low 14.0-18.0 [facility] Comment on above: Performed By: #### H STROPN #### [facility] [address] [place] [address] Dr. Troy Hickey IG # 0.03 10e3/ul Normal 0.00-0.03 [facility] Comment on above: Performed By: #### H STROPN #### [facility] [address] [place] [address] Dr. Troy Hickey IG % 0.3 % Normal 0.0-0.5 [facility] Comment on above: Performed By: #### H STROPN #### [facility] [address] [place] [address] Dr. Troy Hickey LYMPH # 2.4 103/ul Normal 1.2-3.8 [facility] Comment on above: Performed By: #### H STROPN #### [facility] [address] [place] [address] Dr. Troy Hickey Lymphocytes/100 WBC (Bld) 27.9 % Normal 20.5-60.0 [facility] Comment on above: Performed By: #### H STROPN #### [facility] [address] [place] [address] Dr. Troy Hickey MANUAL DIFF REQ NO Normal [facility] Comment on above: Performed By: #### H STROPN #### [facility] [address] [place] [address] Dr. Troy Hickey MCH (RBC) [Entitic mass] 27.2 pg Normal 25.9-34.0 [facility] Comment on above: Performed By: #### H STROPN #### [facility] [address] [place] [address] Dr. Troy Hickey MCHC (RBC) [Mass/Vol] 30.8 g/dL Normal 29.9-35.2 [facility] Comment on above: Performed By: #### H STROPN #### [facility] [address] [place] [address] Dr. Troy Hickey MCV (RBC) [Entitic vol] 88.2 fL Normal 80.0-94.0 [facility] Comment on above: Performed By: #### H STROPN #### [facility] [address] [place] [address] Dr. Troy Hickey MONO # 0.6 103/ul Normal 0.3-0.8 [facility] Comment on above: Performed By: #### H STROPN #### [facility] [address] [place] [address] Dr. Troy Hickey Monocytes/100 WBC (Bld) 7.2 % Normal 1.7-12.0 [facility] Comment on above: Performed By: #### H STROPN #### [facility] [address] [place] [address] Dr. Troy Hickey NEUT # 5.2 103/ul Normal 1.4-6.5 [facility] Comment on above: Performed By: #### H STROPN #### [facility] [address] [place] [address] Dr. Troy Hickey Neutrophils/100 WBC (Bld) 59.7 % Normal 43.0-75.0 [facility] Comment on above: Performed By: #### H STROPN #### [facility] [address] [place] [address] Dr. Troy Hickey Platelet mean volume (Bld) [Entitic vol] 8.5 fL Critically low 9.5-13.5 [facility] Comment on above: Performed By: #### H STROPN #### [facility] [address] [place], [place] [id number] Dr. Troy Hickey PLT 252 103/ul Normal 150-450 [facility] Comment on above: Performed By: #### H STROPN #### [facility] [address], [place] [address] Dr. Troy Hickey RBC 4.56 106/ul Critically low 4.70-6.10 [facility] Comment on above: Performed By: #### H STROPN #### [facility] [address], [place] [address] Dr. Troy Hickey WBC 8.6 103/ul Normal 4.0-11.0 [facility] Comment on above: Performed By: #### H STROPN #### [facility] [id number] Troy Hickey CTA CHEST WO W CONon 07-2 022 CTA CHEST WO W CON EXAMINATION:CTA [...] ABRAN CHRISTINE Date: 2021-11-23 19:06 Normal [facility] Covid-19 PCR (CVDTB)on SARS-CoV-2 (COVID-19) RNA ERNIE+probe Ql (Unsp spec) Not detected Normal NOT DETECTED [facility] Comment on above: Result Comment: This test is not yet approved or cleared by the [place] FDA. When there are no FDA-approved or cleared tests available, and other criteria are met, FDA can make tests available under an emergency access mechanism called an Emergency Use Authorization (EUA). The EUA for this test is supported by the Bracelet Form Coverer of Health and Human Service's (HHS's) declaration [...] SARS-CoV-2. Performed By: #### B CID2 #### [facility] [address] [address] [address] Troy Hickey D-DIMERon 11-23-2021 D-DIMER 0.52 mg/L FEU Critically high 0.19-0.50 [facility] Comment on above: Performed By: #### D DIM #### [facility] [address], [place] [address] Dr. Troy Hickey D-DIMER COMMENTS SEE BELOW Normal [facility] Comment on above: Result Comment: [...] hospitalization. Performed By: #### D DIM #### [facility] [address] [place] [address] Dr. Troy Hickey PROF 14(COMP METB)on 022 Albumin [Mass/Vol] 3.5 g/dL Normal 3.4-5.0 [facility] Comment on above: Performed By: #### H STROPN #### [facility] [address] [place] [address] Dr. Troy Hickey Albumin/Globulin [Mass ratio] 0.8 {ratio} Normal [facility] Comment on above: Performed By: #### H STROPN #### [facility] [address] [place] [address] Dr. Troy Hickey ALP [Catalytic activity/Vol] 104 U/L Normal 46-116 [facility] Comment on above: Performed By: #### H STROPN #### [facility] [address] [place] [address] Dr. Troy Hickey ALT [Catalytic activity/Vol] 22 U/L Normal 16-63 [facility] Comment on above: Performed By: #### H STROPN #### [facility] [address] [place] [address] Dr. Troy Hickey Anion gap [Moles/Vol] 6.2 mmol/L Normal [facility] Comment on above: Performed By: #### H STROPN #### [facility] [address] [place] [address] Dr. Troy Hickey AST [Catalytic activity/Vol] 16 U/L Normal 15-37 [facility] Comment on above: Performed By: #### H STROPN #### [facility] [address] [place] [address] Dr. Troy Hickey Bilirubin [Mass/Vol] 0.4 mg/dL Normal 0.2-1.0 [facility] Comment on above: Performed By: #### H STROPN #### [facility] [address] [place] [address] Dr. Troy Hickey Calcium [Mass/Vol] 8.2 mg/dL Critically low 8.5-10.1 Th [facility] Comment on above: Performed By: #### H STROPN #### [facility] [address] [place] [address] Dr. Troy Hickey Chloride [Moles/Vol] 104 mmol/L Normal 98-107 [facility] Comment on above: Performed By: #### H STROPN #### [facility] [address] [address] [address] Troy Hickey CO2 [Moles/Vol] 31.8 mmol/L Normal 21.0-32.0 [facility] Comment on above: Performed By: #### H STROPN #### [facility] [address] [place] [address] Dr. Troy Hickey Creatinine [Mass/Vol] 0.88 mg/dL Normal 0.70-1.30 [facility] Comment on above: Performed By: #### H STROPN #### [facility] [address] [place] [address] Dr. Troy Hickey EGFR-AF MAURITANIAN >60 Normal >=60 [facility] Comment on above: Performed By: #### H STROPN #### [facility] [address] [place] [address] Dr. Troy Hickey EGFR-NON AF MAURITANIAN >60 Normal >=60 [facility] Comment on above: Performed By: #### H STROPN #### [facility] [address] [place] [address] Dr. Troy Hickey Globulin (S) [Mass/Vol] 4.2 g/dL Normal [facility] Comment on above: Performed By: #### H STROPN #### [facility] [address] [place] [address] Dr. Troy Hickey Glucose [Mass/Vol] 109 mg/dL Critically high 74-106 [facility] Comment on above: Performed By: #### H STROPN #### [facility] [address] [place] [address] Dr. Troy Hickey Potassium [Moles/Vol] 4.0 mmol/L Normal 3.5-5.1 [facility] Comment on above: Performed By: #### H STROPN #### [facility] [address] [place] [address] Dr. Troy Hickey Protein [Mass/Vol] 7.7 g/dL Normal 6.4-8.2 [facility] Comment on above: Performed By: #### H STROPN #### [facility] [address] [place] [address] Dr. Troy Hickey Sodium [Moles/Vol] 138 mmol/L Normal 136-145 [facility] Comment on above: Performed By: #### H STROPN #### [facility] [address] [place] [address] Dr. Troy Hickey Urea nitrogen [Mass/Vol] 17.0 mg/dL Normal 7.0-18.0 [facility] Comment on above: Performed By: #### H STROPN #### [facility] [address] [place] [address] Dr. Troy Hickey Urea nitrogen/Creatinine [Mass ratio] 19.3 mg/mg Normal [facility] Comment on above: Performed By: #### H STROPN #### [facility] [address] [place] [address] Dr. Troy Hickey PROTIMEon 11-23-2021 INR Coag (PPP) [Relative time] 1.01 {INR} Normal [facility] Comment on above: Performed By: #### B CID2 #### [facility] [address] [place] [address] Dr. Troy Hickey INR GUIDELINES SEE BELOW Normal [facility] Comment on above: Result Comment: WAQAS RED INR: 2.0 - 3.0 CONDITIONS NOT LISTED BELOW 2.5 - 3.5 FOR PROSTHETIC HEART VALVE REPLACEMENT 2.5 - 3.5 RECURRENT THROMBOSIS Performed By: #### B CID2 #### [facility] [address] [place] [address] Dr. Troy Hickey PT Coag (PPP) [Time] 10.9 s Normal 9.0-11.6 [facility] Comment on above: Performed By: #### B CID2 #### [facility] [address] [address] [address] Troy Hickey PTTon 11-23-2021 aPTT Coag (Bld) [Time] 28.3 s Normal 22.3-36.2 [facility] Comment on above: Performed By: #### B CID2 #### [facility] [address] [address] [address] Troy Hickey TROPONIN, HIGH SENSITIVITYon 11-23-2021 HSTROP 138.8 pg/mL Critically high 4.0-76.1 [facility] Comment on above: Result Comment: CUT- OFF POINTS HAVE BEEN ESTABLISHED BASED ON THE FOURTH UNIVERSAL DEFINITIONS OF MYOCARDIAL INFARCTION. THE UPPER REFERENCE LIMIT (URL) OF TROPONIN, DEFINED THE 99TH PERCENTILE OF cTnI DISTRIBUTION IN A REFERENCE POPULATION, HAS BEEN CONFIRMED THE DECISION THRESHOLD FOR SC DIAGNOSIS. Performed By: #### H STROPN #### [facility] [address] [place] [address] Dr. Troy Hickey HSTROP 197.7 pg/mL Critically high 4.0-76.1 [facility] Comment on above: Result Comment: CUT- OFF POINTS HAVE BEEN ESTABLISHED BASED ON THE FOURTH UNIVERSAL DEFINITIONS OF MYOCARDIAL INFARCTION. THE UPPER REFERENCE LIMIT (URL) OF TROPONIN, DEFINED THE 99TH PERCENTILE OF cTnI DISTRIBUTION IN A REFERENCE POPULATION, HAS BEEN CONFIRMED THE DECISION THRESHOLD FOR SC DIAGNOSIS. Test Repeated. Critical Value Verified Performed By: #### H STROPN #### [facility] [address] [place] [address] Dr. Troy Hickey XR FINGER MIN 2 VIEWSon 03 XR FINGER MIN 2 VIEWS EXAM: XR [...] LINDA MICHEL Date: 2021-10-05 15:49 Normal [facility] COVID Quick Testingon 2021 Result Positive [employer] Other Quick Fluon 08-08-2021 FLUAV Ab CF (S) [Titer] Negative N [employer] Other FLUBV Ab CF (S) [Titer] Positive N [employer] Other Social History Date Type Detail Facility Start: 10-22-2023 Alcohol intake Lifetime non-d gemma (finding) [facility] Work Phone: Start: 10-12-2023 End: 11-24-2023 Exposure to SARS-CoV-2 (event) Not sure [facility] Start: 10-09-2023 End: 10-22-2023 Former smoker Former smoker [facility] Other Comment on above: quit as a teen; 1 daily; pop 1 daily; Start: 10-09-2023 End: 10-22-2023 Sex Assigned At [place] Other Start: 05-25-2023 End: 10-09-2023 Tobacco smoking status NHIS Ex-smoker [facility] [employer] Start: 10-09-2023 Tobacco use and exposure Smokeless tobacco non-user [facility] [employer] Start: 10-09-2023 [facility] intake [facility] Start: 10-09-2023 Tobacco Comment Smoked for a s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 MOUTH EVERY DAY Quantity: 90 tab(s) Days Supply: 90 Refills: 1 Substitutions Allowed Notes from Pharmacy: [facility] [id number] Note Entered by JOE MADDOX DO on September 03, 2023 07:30:22 EST From: JOE MADDOX DO To: [facility]/pharmacy #[id number] Sent: 09/03/2023 07:30:21 EST Subject: Medication Management Submitted: Complete:atorvastatin (atorvastatin 80 mg oral tablet) Signed by JOE MADDOX DO 09/03/2023 07:30:00 EST Approved with modifications: atorvastatin (ATORVASTATIN 80 MG TABLET) TAKE 1 TABLET BY MOUTH EVERY DAY Qty: 90 tab(s) Days Supply: 90 Refills: 1 Substitutions Allowed Route To Pharmacy - [facility]/pharmacy #[id number] From: [facility] [id number] To: JOE MADDOX DO Sent: September 02, 2023 11:17:[address] CLERK Subject: Medication Management Due: September 03, 2023 12:14:[address] CLERK On Hold Pending Signature Dispensed Drug: atorvastatin (atorvastatin 80 mg oral tablet), TAKE 1 TABLET BY MOUTH EVERY DAY Quantity: 90 tab(s) Days Supply: 90 Refills: 0 Substitutions Allowed Notes from Pharmacy: [facility] [id number] Note [id number] 06-08-2023 NoteEntered by JOE MADDOX DO on June 08, 2023 07:47:25 EST From: JOE MADDOX DO To: [facility]/pharmacy #[id number] Sent: 06/08/2023 07:47:25 EST Subject: Medication Management Submitted: Complete:traZODone (traZODone 50 mg oral tablet) Signed by JOE MADDOX DO 06/08/2023 07:47:00 EST Approved with modifications: traZODone (TRAZODONE 50 MG TABLET) TAKE 1 TABLET BY MOUTH EVERYDAY AT BEDTIME Qty: 90 tab(s) Days Supply: 90 Refills: 1 Substitutions Allowed Route To Pharmacy - [facility]/pharmacy #[id number] From: [place] [id number] To: JOE MADDOX DO Sent: June 07, 2023 8:05:[address] CLERK Subject: Medication Management Due: June 08, 2023 12:24:[address] CLERK On Hold Pending Signature Dispensed Drug: traZODone (traZODone 50 mg oral tablet), TAKE 1 TABLET BY MOUTH EVERYDAY AT BEDTIME Quantity: 90 tab(s) Days Supply: 90 Refills: 0 Substitutions Allowed [id number] Note [id number]PROCEDURE: XR HIP LT 2 [...] Electronically authenticated by: JEAN-PAUL SALAS Date: 2022-04-02 15:09[facility]01-20-2022 Evaluation note* Encounter Date Diagnosis Assessment Notes [...] Patient care instructions given in writting by [facility] Care At Home document. [employer] Other Evaluation note* Diagnosis Onset Date Resolution Status Asthma acute Burn acute CAD (coronary artery disease) acute GERD (gastroesophageal reflux disease) acute HTN (hypertension) acute Hyperlipidemia acute NSTEMI (non-ST elevated myocardial infarction) acute Stented coronary artery [facility] Work Phone: Evaluation note* Diagnosis Positive colorectal cancer screening using Cologuard test- Primary Loose stools Abnormal feces [facility] Diagnosis Coronary artery disease involving diomede coronary artery of diomede heart without angina pectoris History of PTCA Postsurgical percutaneous transluminal coronary angioplasty status NSTEMI, initial episode of care ([facility]) Hypertension, benign Essential hypertension, benign Mixed hyperlipidemia Gastrointestinal hemorrhage, unspecified gastrointestinal hemorrhage type Other cough Other fatigue HOPPER (dyspnea on exertion) Other dyspnea and respiratory abnormality Former cigarette smoker Personal history of tobacco use, presenting hazards to health documented in this encounter [facility] Work Phone: Evaluation note* Diagnosis NSTEMI, initial episode of care (Multi) Other cough Other fatigue HOPPER (dyspnea on exertion) Other dyspnea and respiratory abnormality documented in this encounter [facility] Work Phone: History general Narrative - Reported* Type Description Date Medical History restless leg syndrome Medical History hypertension Medical History Arthritis Surgical History appendectomy Surgical History colonoscopy Surgical History wisdom teeth extract Surgical History hip replacement Surgical History right shoulder arthritis remova l Surgical History carpal tunnel [employer] Other History of Present illness Narrative* The [...] medication regimen. He denies medication side effects. [facility] 250 DO Work Phone: InstructionsNot on filedocumented in this encounter [facility] Chief Complaint Feeling great * BARRY GALDAMEZ [...] follow-up otherwise in 1 year * BARRY GALDMAEZ is being seen for a 6 month [...] [place], utilizing a 2.5 x 34 mm [place] stent to the distal LAD, 2.75 x 18 mm [place] stent in the mid LAD, and a [...] LAD, and a 2.25 x 18 mm [place] stent to the diagonal branch at the [...] (non-ST elevated myocardial infarction) Stented coronary artery Chief Complaint NSTEMI NSTEMI Unknown Reason for Visit Asthma Burn CAD (coronary artery disease) GERD (gastroesophageal reflux disease) HTN (hypertension) Hyperlipidemia NSTEMI (non-ST elevated myocardial infarction) Stented coronary artery Reason for Referral Specialty Diagnoses / Procedures Referred By Teena alas Referred To Contact Radiology Diagnoses NSTEMI, initial episode of care ([facility]) Other cough Other fatigue HOPPER (dyspnea on exertion) Procedures Nuclear Stress Test CHG MYOCARDIAL SPECT MULTIPLE STUDIES Addy Fuller DO [address] [place] [address] [address], [address] [address] Referral ID Status Reason Start Date Expiration Date V isits Requested Visits Authorized [id number] Pending Review 10/22/2023 10/21/2024 5 5 Specialty Diagnoses / Procedures Referred By Teena alas Referred To Contact Cardiology Diagnoses Coronary artery disease involving diomede coronary artery of diomede heart without angina pectoris Procedures Follow Up In Cardiology Addy Fuller DO [address] [place] [address] 2, [address] [address] Addy Fuller DO [address] [place] [address] 2, [address] [address] Referral ID Status Reason Start Date Expiration Date V isits Requested Visits Authorized [id number] Authorized 10/22/2023 10/21/2024 1 1 Additional Source Comments REASON FOR VISIT (unrecogniz ed section and content) Reason Comments Colon Cancer Screening Positive Cologuar d, referred by Dr. Maddox Reason Comments Follow-up 6 month Specialty Diagnoses / Procedures Referred By Teena alas Referred To Contact Radiology Diagnoses NSTEMI, initial episode of care (Multi) Other cough Other fatigue HOPPER (dyspnea on exertion) Procedures Nuclear Stress Test CHG MYOCARDIAL SPECT MULTIPLE STUDIES Addy Fuller, DO [address] [place] [address] Referral ID Status Reason Start Date Expiration Date V isits Requested Visits Authorized [id number] Authorized 10/22/2023 10/21/2024 5 5 (unrecognized sect ion and content) No Status Records FoundNo Status Records FoundNo Status Records FoundNo Status Records FoundNo Status Records FoundNo Status Records FoundNo Status Records FoundNo Status Records FoundNo Status Records FoundNo Status Records Found INFORMATION SOURCE (unrecogn ized section and content) DATE CREATED AUTHOR 06/19/2022 [facility] DATE CREATED AUTHOR AUTHOR'S ORGANIZ ATION 03/27/2023 [facility] DATE CREATED AUTHOR AUTHOR'S ORGANIZ ATION 03/27/2023 [employer] DATE CREATED AUTHOR AUTHOR'S ORGANIZ ATION 10/11/2023 [facility] DATE CREATED AUTHOR AUTHOR'S ORGANIZ ATION 11/08/2023 [facility] DATE CREATED AUTHOR AUTHOR'S ORGANIZ ATION 11/20/2023 [facility] DATE CREATED AUTHOR AUTHOR'S ORGANIZ ATION 11/30/2023 [facility] DATE CREATED AUTHOR AUTHOR'S ORGANIZ ATION 12/18/2023 [facility] DATE CREATED AUTHOR AUTHOR'S ORGANIZ ATION 01/01/2024 [facility] DATE CREATED AUTHOR AUTHOR'S ORGANIZ ATION 01/01/2024 [facility] Care Teams (unrecognized sec tion and [...] Bebe Basurto MD Other Provider Active Start: [facility] 2023 End: October 01, 2023 Van Kinney MD Other Provider Active Start: September 30, 2023 End: October 01, 2023 Eliud Tilley MD Other Provider Active Start: [facility] 2023 End: October 01, 2023 Helen Garcia [employer]- Other Provider Active Sta rt: September 30, [...] Start: M arch 2023 Helen Garcia , [facility]- Other Provider Active Sta rt: September 30, 2023 Joyce Delacruz MD Other Provider Active Start: September 30, 2023 Pooja Cortez APRN Attending Provider Active Start: September 30, 2023 Pastry Finisher Relationship Specialty Start Date End Date Joe Maddox DO [address] [place] [address] PCP - General Family Medicine 09/21/23 Pastry Finisher Relationship Specialty Start Date End Date Joe Maddox DO [address] [place] [address] PCP - General Family Medicine 10/22/23 Team Status: Inactive Member Role Status Dates Joe Maddox DO Primary Care Provider Active Start: November 04, 2023 End: November 04, 2023 Sander Elias DO Attending Provider Active Start: November 04, 2023 End: November 04, 2023 Pastry Finisher Relationship Specialty Start Date End Date Joe Maddox DO [address] [place] [address] PCP - General Family Medicine 10/22/23 Pastry Finisher Relationship Specialty Start Date End Date Joe Maddox DO [address] [place] [address] PCP - General Family Medicine 10/22/23 Pastry Finisher Relationship Specialty Start Date End Date Joe Maddox DO [address] [place] [address] PCP - General [facility] Medicine 10/22/23 Pastry Finisher Relationship Specialty Start Date End Date Joe Maddox DO [address] [place] [address] PCP - [facility] 10/22/23 Pastry Finisher Relationship Specialty Start Date End Date Joe Maddox DO [address] [place] [address] PCP - General [facility] Medicine 10/22/23 Goals (unrecognized section and content) [...] BE BASED ON THE PRIMARY CLINICAL RECORDS. [employer] [facility]. provides no warranty or guarantee of the accuracy or completeness of information in this document.
== END 2024-01-25 16:04 | disposition home or self-care (01) ==
LOC: WC 16:03
PROVIDERS: PCP Family Medicine; Visit Provider Physician Assistant
DX: L97.922 Non-pressure chronic ulcer of unspecified part of left lower leg with fat layer exposed (principal)
CPT/HCPCS: G0463

== ENCOUNTER 2024-01-28 09:06 | Outpatient (OUT) | payer MEDICARE, MEDICAID, SELFPAY ==
[2024-01-28 09:23] LABS: Basophils Absolute Auto 0.1 10^3/uL (0.0-0.1); Basophils Percent Auto 0.6 % (0.2-2.0); Eosinophils Absolute Auto 0.4 10^3/uL (0.0-0.7); Eosinophils Percent Auto 4.8 % (0.9-7.0); Hematocrit 36.5 % (42.0-54.0); Hemoglobin 11.1 g/dL (14.0-18.0); Immature Granulocytes Abs Auto 0.03 10^3/uL (0.00-0.03); Immature Granulocytes Pct Auto 0.4 % (0.0-0.5); Lymphocytes Absolute Auto 2.7 10^3/uL (1.2-3.8); Lymphocytes Percent Auto 32.4 % (20.5-60.0); Mean Corpuscular HGB Conc 30.4 g/dL (29.9-35.2); Mean Corpuscular Hemoglobin 25.3 pg (25.9-34.0); Mean Corpuscular Volume 83.3 fL (80.0-94.0); Mean Platelet Volume 8.7 fL (9.5-13.5); Monocytes Absolute Auto 0.5 10^3/uL (0.3-0.8); Monocytes Percent Auto 6.3 % (1.7-12.0); Neutrophils Absolute Auto 4.6 10^3/uL (1.4-6.5); Neutrophils Percent Auto 55.5 % (43.0-75.0); Platelet Count 221 10^3/uL (150-450); Red Blood Count 4.38 10^6/uL (4.70-6.10); Red Cell Distribution Width 14.5 % (11.0-15.0); White Blood Count 8.3 10^3/uL (4.0-11.0)
[2024-01-28 10:54] LABS: Alanine Aminotransferase 17 U/L (16-63); Albumin Globulin Ratio 0.8; Albumin Level 3.3 g/dL (3.4-5.0); Alkaline Phosphatase 151 U/L (46-116); Anion Gap 8.2; Aspartate Amino Transferase 13 U/L (15-37); BUN Creatinine Ratio 16.9; Bilirubin Total 0.6 mg/dL (0.2-1.0); Calcium 8.9 mg/dL (8.5-10.1); Carbon Dioxide 32.5 mmol/L (21.0-32.0); Chloride 103 mmol/L (98-107); Chol HDL Ratio 3.6; Cholesterol 115 mg/dL (<=200); Estimated GFR (African America >60 (>=60); Estimated GFR (Non-African Ame >60 (>=60); Globulin 4.4 g/dL; Glucose 106 mg/dL (74-106); HDL Cholesterol 32 mg/dL (40-60); Potassium 4.7 mmol/L (3.5-5.1); Sodium 139 mmol/L (136-145); Thyroid Stimulating Hormone 1.474 uIU/mL (0.358-3.740); Total Protein 7.7 g/dL (6.4-8.2); Triglycerides 68 mg/dL (<=150); VLDL CHOLESTEROL 13.6 mg/dL
[2024-01-29 04:09] LABS: Testosterone 309 ng/dL (264-916)
== END 2024-01-28 09:07 | disposition home or self-care (01) ==
LOC: LAB 09:09
PROVIDERS: PCP Family Medicine; Visit Provider Family Medicine
DX: R53.83 Other fatigue (principal); E29.1 Testicular hypofunction; N40.0 Benign prostatic hyperplasia without lower urinary tract symptoms; Z98.61 Coronary angioplasty status; I21.4 Non-ST elevation (NSTEMI) myocardial infarction; I10 Essential (primary) hypertension; M19.90 Unspecified osteoarthritis, unspecified site; G62.9 Polyneuropathy, unspecified
CPT/HCPCS: 36415; 80053; 80061; 84403; 84436; 84443; 85025

== ENCOUNTER 2024-02-15 14:42 | Outpatient (OUT) | payer MEDICARE, MEDICAID, SELFPAY | END 2024-02-15 14:43 | disposition home or self-care (01) | LOC: WC 14:42 | PROVIDERS: PCP Family Medicine; Visit Provider Physician Assistant | DX: L84 Corns and callosities (principal); L97.922 Non-pressure chronic ulcer of unspecified part of left lower leg with fat layer exposed | CPT/HCPCS: 11055 ==

== ENCOUNTER 2024-03-04 14:49 | Emergency (ER) | payer MEDICARE, MEDICAID, SELFPAY ==
[2024-03-04 14:57] VITALS: BP 131/57; PULSE 78; TEMP 37.3; O2SAT 98; BMI 33.8
--- NOTE | 2024-03-04 15:16 | PC.NURSE ---
pt cut R forearm on some sheet metal while working on his barn. Takes a blood thinner. Wound is still currently bleeding, pt applied own pressure dressing. Cleaned with soap/water and saline irrigant. New pressure dressing applied. cap refill <3. pt has full ROM in extremity. Tetanus was updated 2 years ago
--- NOTE | 2024-03-04 15:29 | ED_ITS ---
HPI HPI - Extremity Injury (Upper) General Chief Complaint: Extremity Injury, Upper Stated Complaint: UPPER EXTREMITY INJURY Time Seen by Provider: 03/04/24 14:51 Source: patient Mode of arrival: walk-in History of Present Illness HPI narrative: Patient is a 68-year-old male presents to the ER for evaluation of laceration to the mid dorsal forearm. Bleeding present on arrival. Patient tetanus up-to-date. States he was transporting sheet metal when it cut his forearm. He denies a puncture wound. Patient was wearing gloves. Bleeding through gauze bandages noted on arrival. Patient denies feeling lightheaded or dizzy. He has a history of Plavix use following a UT over a year ago. He denies any other symptoms at this time. Denies numbness or tingling in the hand or any loss of function. MD complaint: injury to: Reports right and forearm Other Extremity Injury: Right: forearm Place: Reports other (loading onto car) Related Data Home Medications ?Medication ?Instructions ?Recorded ?Confirmed albuterol sulfate 90 mcg/actuation 2 puff inhalation Q8H PRN 09/22/23 12/11/23 aerosol inhaler shortness of breath or wheezing atorvastatin 80 mg tablet 80 mg PO DAILY 09/22/23 12/11/23 clopidogrel 75 mg tablet 75 mg PO QDAY 09/22/23 12/11/23 gabapentin 600 mg tablet 1,200 mg PO Q8H 09/22/23 12/11/23 metoprolol succinate 25 mg 50 mg PO DAILY 09/22/23 12/11/23 tablet,extended release 24 hr tramadol 50 mg tablet 50 mg PO BID PRN pain 09/22/23 12/11/23 valsartan 160 mg tablet 160 mg PO DAILY 09/22/23 12/11/23 meloxicam 15 mg tablet 15 mg PO DAILY 11/02/23 12/11/23 pantoprazole 40 mg tablet,delayed 40 mg PO DAILY 11/02/23 12/11/23 release trazodone 50 mg tablet 50 mg PO DAILY 11/02/23 12/11/23 ciclopirox 0.77 % topical cream applic topical 12/11/23 ciclopirox 1 % shampoo topical 12/11/23 Previous Rx's ?Medication ?Instructions ?Recorded hydrocodone 5 mg-acetaminophen 325 1 tab PO Q6H PRN pain 5 days #20 12/11/23 mg tablet tabs cephalexin 500 mg capsule 500 mg PO TID 5 days #15 caps 03/04/24 Allergies Allergy/AdvReac Type Severity Reaction Status Date / Time aspirin AdvReac Severe gi bleed Verified 11/02/23 13:58 Opioid HPI Opioid Management Most Recent Pain and Opioid Data: Last Pain Scale 9 12/11/23 10:03 Review of Systems ROS Constitutional Denies: fever or chills Eyes Denies: change in vision Cardiovascular Denies: chest pain or palpitations Respiratory Denies: shortness of breath or cough Gastrointestinal Denies: abdominal pain Integumentary/Breast Denies: rash Neurological Denies: headache Psychiatric Denies: anxiety Allergic/Immunologic Denies: hives PFSH [facility] Medical History (Updated 03/04/24 @ 15:30 by JAMSHID Lopez) Spinal stenosis ?M48.00 - Spinal stenosis, site unspecified (ICD-10) Shortness of breath ?R06.02 - Shortness of breath (ICD-10) Insomnia ?G47.00 - Insomnia, unspecified (ICD-10) Hypertension ?I10 - Essential (primary) hypertension (ICD-10) High cholesterol ?E78.00 - Pure hypercholesterolemia, unspecified (ICD-10) Chest pain ?R07.9 - Chest pain, unspecified (ICD-10) A-fib ?I48.91 - Unspecified atrial fibrillation (ICD-10) Arthritis ?M19.90 - Unspecified osteoarthritis, unspecified site (ICD-10) Surgical History (Updated 11/02/23 @ 13:55 by Mirta Robles RN) Hx of total hip arthroplasty ?Z96.649 - Presence of unspecified artificial hip joint (ICD-10) H/O shoulder surgery ?Z98.890 - Other specified postprocedural states (ICD-10) H/O colonoscopy ?Z98.890 - Other specified postprocedural states (ICD-10) History of carpal tunnel release ?Z98.890 - Other specified postprocedural states (ICD-10) H/O heart artery stent ?Z95.5 - Presence of coronary angioplasty implant and graft (ICD-10) H/O cardiac catheterization ?Z98.890 - Other specified postprocedural states (ICD-10) History of appendectomy ?Z90.49 - Acquired absence of other specified parts of digestive tract (ICD- 10) Family History (Updated 11/02/23 @ 13:56 by Mirta Robles, RN) Other Arthritis Family history of hypertension Thyroid disease Social History (Updated 11/02/23 @ 14:13 by Mirta Robles, RN) Within the past year, how often did you have a drink containing alcohol: never Score interpretation: A score less than 4 is consistent with normal alcohol consumption. Smoking status: Former smoker Nicotine containing products detail: smoked as a teenager Second hand tobacco smoke exposure: No Non-prescribed substance use: denies use Previous occupational history: retired Highest level of school completed/degree received: some college, no degree Exam Narrative Exam Narrative: Nurse's notes and vital signs reviewed. Patient is not hypoxic. General: The patient appears well and in no apparent distress. Patient is resting comfortably on cart. Skin: Warm, dry, no pallor noted. 1 cm linear laceration mid dorsal forearm. vbenuous bleeding noted. Head: Normocephalic, atraumatic Eye: Normal conjunctiva Respiratory: Patient is in no distress Musculoskeletal: The Right wrist shows no obvious deformity. There was no swelling noted. The patient had full range of motion of the hand and fingers full flexion extension of the wrist. No evidence of tendon disruption. No visible foreign body. The patient had tenderness noted only to the laceration that was minimal. The patient had no tenderness in the anatomical snuff box. The patient had no pain with axial loading of the thumb. Pulses are intact at brachial and radial 2+. There was no deficit at the elbow or shoulder. The patient has normal capillary refill to all distal digits. The patient has no evidence of cyanosis or mottling. The patient is able to flex and extend all digits without difficulty. Neurological: A&O x4, normal sensory, normal motor Psychiatric: Cooperative Constitutional Vital Signs, click to edit/add: Last Vital Signs Temp 99.1 F 03/04/24 14:57 Pulse 78 03/04/24 14:57 Resp 18 03/04/24 14:57 BP 131/57 03/04/24 14:57 Pulse Ox 98 03/04/24 14:57 O2 Del Method Room Air 03/04/24 14:57 Course Vital Signs Vital signs: Vital Signs Temperature 99.1 F 08/16/24 14:57 Pulse Rate 78 03/04/24 14:57 Respiratory Rate 18 03/04/24 14:57 Blood Pressure 131/57 03/04/24 14:57 Pulse Oximetry 98 03/04/24 14:57 Oxygen Delivery Method Room Air 03/04/24 14:57 Temperature 99.1 F 03/04/24 14:57 Pulse Rate 78 03/04/24 14:57 Respiratory Rate 18 03/04/24 14:57 Blood Pressure 131/57 03/04/24 14:57 Pulse Oximetry 98 03/04/24 14:57 Oxygen Delivery Method Room Air 03/04/24 14:57 MDM - Extremity Injury (Upper) MDM Narrative Medical decision making narrative: Discussed laceration with Plavix use. Recommend ice and elevation. Wound was extensively irrigated with suture repair. Given patient's presentation he will be placed on Keflex for 5 days, skin on arms was cleaned to remove dust and debris. Patient states he was not punctured but was more of a glancing laceration. Discussed the importance of follow-up with PCP in 10 days for suture removal. Discussed importance of elevation and ice and to watch for any swelling of his hand with compressive wrap. The patient is to followup with primary care physician in next 10 days or to return to the emergency department should any of the signs or symptoms worsen or new symptoms develop. Patient had questions answered. The patient agrees with the following Diagnosis and Treatment plan and the patient will be discharged home. SUPERVISED APC VISIT, PHYSICIAN ATTESTATION: Based on the medical record the care appears appropriate. ? Discharge Plan Discharge Stand Alone Forms: Portal Instructions Chief Complaint: Extremity Injury, Upper Clinical Impression: Laceration of forearm, right Patient Disposition: Home, Self-Care Time of Disposition Decision: 15:29 Condition: Good Prescriptions / Home Meds: New cephalexin 500 mg capsule 500 mg PO TID 5 Days Qty: 15 0RF No Action ciclopirox 0.77 % cream TOPICAL ciclopirox 1 % shampoo TOPICAL hydrocodone-acetaminophen 5-325 mg tablet 1 tab PO Q6H PRN (Reason: pain) 5 Days Qty: 20 0RF albuterol sulfate 90 mcg/actuation HFA aerosol inhaler 2 puff INHALATION Q8H PRN (Reason: shortness of breath or wheezing) atorvastatin 80 mg tablet 80 mg PO DAILY clopidogrel 75 mg tablet 75 mg PO QDAY gabapentin 600 mg tablet 1,200 mg PO Q8H metoprolol succinate 25 mg tablet extended release 24 hr 50 mg PO DAILY tramadol 50 mg tablet 50 mg PO BID PRN (Reason: pain) valsartan 160 mg tablet 160 mg PO DAILY meloxicam 15 mg tablet 15 mg PO DAILY pantoprazole 40 mg tablet,delayed release (DR/EC) 40 mg PO DAILY trazodone 50 mg tablet 50 mg PO DAILY Print Language: Georgian Instructions: Laceration (ED) Additional Instructions: call pcp for Suture removal in 10 days Referrals: QIANA MADDOX [Primary Care Provider] - 03/15/24 Procedures ED Laceration Laceration Laceration 1: Additional comments: Laceration repair: Done under sterile conditions. The use of Betadine was used to prep and clean the area. Local injection with lidocaine 1% with epi was used, approximately 3cc. The wound was irrigated copiously with normal saline. The wound was explored there was no evidence of foreign material. The laceration was approximated with 4-0 nylon. 3 simple interrupted sutures were placed. Patient tolerated the procedure well. The patient was neurovascularly intact post. the patient had bacitracin applied to the laceration and a dry sterile pressure dressing was place. The patient will need to follow-up in the next 10 days for removal. There was no bleeding after use of epi for local and suture placement. Discussed the importance of strict elevation and ice, no use of the right arm for the next 2 to 3 days to prevent hematoma formation. Patient verbalized understanding. There was no evidence of arterial bleeding with Inspection: And only subcutaneous fat was seen
[2024-03-04] MEDS: BACITRACIN 0.9 GM PACKET 1 PACKET TOPICAL (15:35)
[2024-03-04] MEDS: LIDOCAINE HCL 1%-EPINEPHRINE 1:100,000 20 ML MDV INJ (15:35)
== END 2024-03-04 15:35 | disposition home or self-care (01) ==
PROVIDERS: Emergency Provider Emergency Medicine Emergency Medical Services; PCP Family Medicine
DX: S51.811A Laceration without foreign body of right forearm, initial encounter (principal); W26.8XXA Contact with other sharp object(s), not elsewhere classified, initial encounter; Z79.02 Long term (current) use of antithrombotics/antiplatelets; I25.2 Old myocardial infarction; Z87.891 Personal history of nicotine dependence
CPT/HCPCS: 12001; 99284

== ENCOUNTER 2024-05-13 13:32 | Emergency (ER) | payer MEDICARE, MEDICAID, SELFPAY ==
[2024-05-13 13:35] VITALS: BP 171/65; PULSE 104; TEMP 37.3; O2SAT 99; BMI 32.3
--- OUTSIDE RECORDS SUMMARY | 2024-05-13 13:53 | XMS_ITS | CCD ---
Demographics Address [address] [place], [place] [id number] Preferred Language en Marital Status Mormonism Affiliation Unknown Race White Ethnic Group Not or Lati no Author Organization [facility] CliniSynd Care Team Providers Care Television Technician Name Role Phone Joe Maddox Unavailable Unavailable Unavailable Jocelyn Diaz Unavailable MIS, DR WEATHERS Admitting Unavailable [facility] DR WEATHERS Attending Unavailable [place], DR KIRAN Primary Care Unavailable [place], DR NATACHA Campoverde Consulting Unavailable [facility] DR WEATHERS Consulting Unavailable [place], DR KIRAN Admitting Unavailable HOUSE, DR KIRAN Attending Unavailable [place], DR KIRAN Referring Unavailable [facility] Primary Care Unavaila ble [place], DR KIRAN Consulting Unavailable [place], DR KIRAN Admitting Unavailable HOUSE, DR KIRAN Attending Unavailable [place], DR KIRAN Primary Care Unavailable [place], DR KIRAN Consulting Unavailable [facility], DR JEAN-PAUL Mccann Consulting Unavailable HOUSE, DR KIRAN Admitting Unavailable HOUSE, DR KIRAN Attending Unavailable HOUSE, DR KIRAN Primary Care Unavailable [place], DR KIRAN Consulting Unavailable MARITZA, DR JEAN-PAUL Mccann Consulting Unavailable JOHNNY, EMANUEL Admitting Unavailable JOHNNY, EMANUEL Attending Unavailable JONNY, DR ADDY Davis Consulting Unavailabl e HOUSE, DR KIRAN Primary Care Unavailable JOHNNY, EMANUEL Consulting Unavailable HOUSE, DR KIRAN Primary Care Unavailable HAY, DR CABEZAS Admitting Unavailable HAY, DR CABEZAS Attending Unavailable HAY, DR CABEZAS Consulting Unavailable RHIANNA, SANDER Consulting Unavailable [facility] Primary Care Unavaila ble PAY, DR KOTHARI Admitting Unavailable PAY, DR KOTHARI Attending Unavailable PAY, DR KOTHARI Consulting Unavailable ANAND, LINDA Consulting Unavailable [facility] Primary Care Unavaila ble JAMSHID SOLIZ Consulting Unavailable BHARGAV, DR ELIESER De La Cruz Admitting Unavailabl e BHARGAV, DR ELIESER De La Cruz Attending Unavailabl e STRAWSER, ABRAN Consulting Unavailable Jonny, Dr. Addy Cartagena Referring Unava martinez Maddox, Dr. Joe Brown Primary [facility] Unava martinez Fuller, Dr. Addy Cartagena Attending Unava ilable Darryl, Emanuel Attending Unavailable DarrylEmanuel Referring Unavailable House, Dr. Joe [facility] Dr. Addy Cartagena Attending Winifred Fuller, [...] Provider MD Bebe Basurto Other Provider MD Cecile Kinneyammru Reza Other Provider MD Eliud Tilley Other Provider [facility] Helen Tapia Other Provider MD Joyce Delacruz Other Provider MD Ghazala Warren Attending Provider Joe Maddox DO Primary Care Provider MARIETTA BRICE Attending Unavailable JOE MADDOX Referring Unavailable JOE MADDOX Primary Care Unavailable Wolverine Joe MARTINEZ Primary Care Provider DO Sander Elias Attending Provider Sander Elias Admitting Unavailable Sander Elias Attending Unavailable Joe Maddox Primary Care Unavailable Tamara Swanson Consulting Unavailable Singh Mack Admitting Unavailable Ghazala Warren Attending Unavailable Joe Maddox Primary Care Unavailable Sol Fuller Consulting Unavailable Sundar Argueta Consulting Unavailable Addy Glass Consulting Unavail able Barbara Rivas Consulting Unavailable Joe Delatorre Consulting Unavailab Emanuel De La Rosa Consulting Unavailable Bebe Basurto Consulting Unavailable Nirmal, aVn Reza Consulting Unavailab Eliud Wang Consulting Unavailable [...] Care Unavailable JONNY, ADDY S Attending Unavailable JONNY, ADDY S Referring Unavailable HOUSE, JOE P Primary Care Unavailable CLAUDE Urena Ariana Admitting Unavailabl e HOUSE, JOE P Referring Unavailable Urena, Ariana Attending Unavailable Jaqui Biswas Attending Unavaila DO García Sam Admitting Unavailabl e García Castro Attending Unavailable HOUSE, JOE P Referring Unavailable García Castro Admitting Unavailable García Castro Attending Unavailable HOUSE, JOE P Referring Unavailable HOUSE, JOE P Referring Unavailable Urena Ariana Admitting Unavailable Ariaan Urena Attending Unavailable Romel Ariana Attending Unavailable CLAUDE Urena Ariana Admitting Unavailabl e HOUSE, JOE P Referring Unavailable Urena, Ariana Attending Unavailable UrenaCLAUDE Ariana Admitting Unavailabl e HOUSE, JOE P Referring Unavailable Neymar Willingham Attending Unavailable Neymar Willingham Referring Unavailable MD Neymar Willingham Admitting Unavailable Neymar Willingham Attending Unavailable Neymar Willingham Referring Unavailable MD Neymar Willingham Admitting Unavailable García Castro Attending Unavailable García Castro Referring Unavailable Ariana Urena Admitting Unavailable Ariana Urena Attending Unavailable García Castro Admitting Unavailable García Castro Attending Unavailable Neel Robin Attending Unavailable Erwin VALADEZ Admitting Unavailable Hui Costa Consulting Unavailable Hui Costa Consulting Unavailable MD Hui Costa Consulting Unavailab Hui Taylor Consulting Unavailable Gibran Barker MD Attending Unavailable HOUSE, JOE P Primary Care Unavailable HOUSE, DO JOE P Attending Unavailable HOUSE, JOE P Primary Care Unavailable HOUSE, JOE P Primary Care Unavailable HOUSE, JOE P Primary Care Unavailable HOUSE, DO JOE P Attending Unavailable HOUSE, JOE P Primary Care Unavailable HOUSE, JOE P Primary Care Unavailable HOUSE, DO JOE P Attending Unavailable HOUSE, JOE P Primary Care Unavailable HOUSE, DO JOE P Attending Unavailable HOUSE, DO JOE P Attending Unavailable HOUSE, JOE P Primary Care Unavailable HOUSE, DO JOE P Attending Unavailable HOUSE, DO JOE P Admitting Unavailable HOUSE, JOE P Primary Care Unavailable HOUSE, JOE P Primary Care Unavailable HOUSE, DO JOE P Attending Unavailable HOUSE, JOE P Primary Care Unavailable Mummert DO, Ken Attending Unavailable HOUSE, DO JOE P Admitting Unavailable HOUSE, JOE P Primary Care Unavailable Mummert DO, Ken Consulting Unavailable HOUSE, DO JOE P Attending Unavailable Gibran Barker MD Attending Unavailable HOUSE, JOE P Primary Care Unavailable HOUSE, DO JOE P Attending Unavailable HOUSE, JOE P Primary Care Unavailable Mj FARFAN, Gibran De La Cruz Attending Unavailable HOUSE, JOE P Primary Care Unavailable García Castro Referring Unavailable García Castro Attending Unavailable Urena, Ariana Admitting Unavailable Urena, Ariana Attending Unavailable HOUSE, JOE P Referring Unavailable Urena, Ariana Admitting Unavailable Urena, Ariana Attending Unavailable Allergies Allergy Classification Reported Allergen(s) Allergy Type Date of Onset Reaction(s) Facility (18 sources) Aspirin; Translations: [aspirin] Drug Allergy 05-25-2023 GI Bleeding [facility] (2 sources) gabapentin; Translations: [gabapentin] Drug Allergy [facility] Repository Medications Current Medications Medication Drug Class(es) Dates Sig (Normalized) Sig (Original) [id number] 200 actuat albuterol 0.09 mg/actuat metered dose [...] oral tablet (5 sources) Anti-epileptic Agent Start: 03-16-2024 gabapenti n (NEURONTIN) 800 mg tablet Take [...] daily Quantity: 90 Refills: 3 Ordered: 09-Dec-2021 Isaac Andrews APRN-SLIP DUMPER, Emanuel Active Metoprolol-12.5 mg (1 source) Metoprolol-12.5 mg [...] mg capsule Active 300 MG PO Daily November 26, 2021 12:00am valsartan 160 mg [...] millicurie, intravenous, Once in imaging, Starting on 11/23/23 at 1045, For 1 dose, Administer 45 [...] sources) Coronary atherosclerosis; Translations: [Coronary atherosclerosis of [place] coronary artery] Onset: 2 Chronic Diseases of white blood cells (1 [...] unspecified; Translations: [FEVER UNSPECIFIED] Onset: 2 Episodic Other aftercare (1 source) 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; Translations: [OTH FASTENER TECHNOLOGIST CURRENT DRUG THERAPY] Onset: 2 Episodic Other gastrointestinal disorders (1 source) Stool DNA-based colorectal cancer screening positive; Translations: [Other fecal abnormalities] 10-09-2023 Episodic Other gastrointestinal disorders (1 source) Loose stool; Translations: [Other fecal abnormalities] 10-09-2023 Episodic Other gastrointestinal disorders (1 source) Other fecal abnormalities; Translations: [Other fecal abnormalities] Onset: 4 Episodic Other lower respiratory disease (2 sources) Pulmonary fibrosis, unspecified; Translations: [Pulmonary fibrosis, unspecified (Multi)] Onset: 4 Chronic Other lower respiratory disease (1 source) Shortness of breath; Translations: [SHORTNESS OF BREATH] Onset: 2 Episodic Other lower respiratory disease (8 sources) Cough; Translations: [Other cough] Onset: 4 10-22-2023 Episodic Other lower respiratory disease (8 sources) Dyspnea on exertion; Translations: [Other forms of dyspnea] Onset: 4 10-22-2023 Episodic Other nervous system disorders (1 source) Other chronic pain; Translations: [OTHER CHRONIC PAIN] Onset: 2 Chronic Other non-traumatic joint disorders (4 sources) Pain in left hip; Translations: [PAIN IN LEFT HIP] Onset: 2 Episodic Other nutritional; endocrine; and metabolic disorders (11 sources) Obesity; Translations: [Obesity, unspecified] Chronic Other nutritional; endocrine; and metabolic disorders (2 sources) Body mass index (BMI) 32.0-32.9, adult; Translations: [Body mass index (BMI) 32.0-32.9, adult] Onset: 4 Chronic Spondylosis; intervertebral disc disorders; other back [...] Other Problems Problem Classification Problem Date Documented Da te Episodic/Chronic Coronary atherosclerosis and other heart disease (7 sources) Stented coronary artery; Translations: [Presence of coronary angioplasty implant and graft] Onset: 3 09-30-2023 Episodic E Codes: Cut/pierceb (1 source) Contact with other powered hand tools and household machinery, initial encounter; Translations: [CONTACT OTH POWER HT AND HH MACH INIT] Onset: 2 Episodic Gastrointestinal hemorrhage (9 sources) Gastrointestinal hemorrhage; Translations: [Gastrointestinal hemorrhage, unspecified] Onset: 4 10-22-2023 Episodic Genitourinary symptoms and ill-defined conditions (5 sources) Nocturia; Translations: [Other polyuria] Onset: 2 Episodic Immunizations and screening for infectious disease (11 sources) Patient encounter status; Translations: [Other specified vaccination] Onset: 2 Resolved: 2 Episodic Influenza (1 source) Influenza due to other identified influenza virus with other respiratory manifestations Onset: 2 Resolved: 2 Episodic Malaise and fatigue (20 sources) Fatigue; Translations: [Other malaise and fatigue] Onset: 3 10-22-2023 Episodic Nonspecific chest pain (4 sources) Chest pain, unspecified; Translations: [CHEST PAIN UNSPECIFIED] Onset: 2 Episodic Open wounds of extremities (4 sources) Laceration without foreign body of left index finger without damage to nail, initial encounter; Translations: [Laceration of flexor muscle, fascia and tendon of left index finger at wrist and hand level, initial encounter] Onset: 2 Episodic Other lower respiratory disease (4 sources) Other forms of dyspnea; Translations: [Other forms of dyspnea] Onset: 4 Episodic Other screening for suspected conditions (not mental disorders or infectious disease) (15 sources) Echocardiogram abnormal; Translations: [Nonspecific (abnormal) findings on radiological and other examination of other intrathoracic organs] Onset: 3 05-25-2023 Episodic Screening and history of mental health and substance abuse codes (18 sources) Ex-smoker; Translations: [Personal history of tobacco use] Onset: 4 10-22-2023 Episodic Comment on above: quit as a teen; Unclassified (1 source) COUGH, UNSPECIFIED; Translations: [COUGH, UNSPECIFIED] Onset: 2 Unclassified (6 sources) Onset: 4 10-22-2023 Unclassified (2 sources) Other specified cough; Translations: [Other specified cough] Onset: 4 Viral infection (1 source) COVID-19 Onset: 2 Resolved: 2 Results Test Name Value Interpretation Reference Range Facility Main OR Intraoperative Recor don 04-26-2024 Main OR Intraoperative Record Main OR Intraoperative Record IntraOp Document Type FTPM Summary Primary Physician: García Castro DO Finalized Date/Time: 04/26/24 14:17:10 Pt. Name: BARRY GALDAMEZ/Sex: 1955 Male Med Rec #: [id number] Physician: García Castro DO Financial #: [id number] Pt. Type: P Room/Bed: / Admit/Disch: 04/26/24 12:25:59 - Institution: Case Times FTPM Entry 1 Patient Times In Room 04/26/24 14:08:00 Out Room 04/26/24 14:16:00 Procedure Times Start 04/26/24 14:11:00 Stop 04/26/24 14:15:00 Anesthesia Times Last Modified By: Iwona Alanis RN 04/26/24 14:15:33 Case Attendance FTPM Entry 1 Entry 2 Entry 3 Case Attendee García Castro DO, RN, Iwona Troy RN, Adry Aguirre Role Performed Surgeon - Primary Ground Equipment Mechanic - Primary Scrub - Primary Time In 04/26/24 14:08:00 04/26/24 14:08:00 04/26/24 14:08:00 Time Out 04/26/24 14:16:00 04/26/24 14:16:00 04/26/24 14:16:00 Procedure SACROILIAC JOINT SACROILIAC JOINT SACROILIAC JOINT INJECTION(Bilateral, .) INJECTION(Bilateral, .) INJECTION(Bilateral, .) Comments Last Modified By: Iwona Alanis RN, RN, Madison A Pritchard RN, Madison A 04/26/24 14:15:34 04/26/24 14:15:34 04/26/24 14:15:34 Entry 4 Case Attendee José HARRIS)Ginny Role Performed Tax Lawyer Time In 04/26/24 14:08:00 Time Out 04/26/24 14:16:00 Procedure SACROILIAC JOINT INJECTION(Bilateral, .) Comments Last Modified By: Iwona Alanis RN 04/26/24 14:15:57 Perioperative Protocols FTPM Pre-Care Text: Implements protective measures prior to operative or invasive procedure, confirms identity before the operative or invasive procedure, verifies operative procedure, surgical site, and laterality Entry 1 Procedure(s) SACROILIAC JOINT Patient Identity Birthday, ID Band INJECTION(Bilateral, .) Verified (select at Check, Patient least 2): Participation Consents / H and P H&P, Surgery/Procedure Operative Site Present Verified Consent Marking Verified Surgical Site Yes Laterality Verified Yes Verified Procedure Verified Yes Correct Patient Yes Position Verified Availability Equipment, Medication, Prep Dry Yes Verified (If X-ray Applicable) PreOp Antibiotic No Time Out Iwona Alanis RN, Roderick RN, Matthew Noland DO, José Rowland(RGinny Gonzalez Time Out Complete 04/26/24 14:09:00 Outcomes Met? Yes Last Modified By: Iwona Alanis RN 04/26/24 14:09:42 Post-Care Text: The patient is free from signs and symptoms of injury caused by extraneous objects Allergy Information FTPM Pre-Care Text: Verifies allergies Entry 1 Allergies Reviewed? Yes Allergies Reviewed Self/Patient With Outcomes Met? Yes Last Modified By: Iwona Alanis RN 04/26/24 14:09:49 Post-Care Text: The patient received appropriate medication(s) safely administered during the perioperative period Surgical Procedures FTPM Entry 1 Procedure Description Procedure SACROILIAC JOINT Modifiers Bilateral, . INJECTION Surgeon Description Bilateral SIJI Primary Procedure Yes Primary Surgeon García Castro DO Start 04/26/24 14:11:00 Stop 04/26/24 14:15:00 Anesthesia Type None Surgical Service Pain Management Wound Class 1 - Clean Last Modified By: Iwona Alanis RN 04/26/24 14:15:36 General Case Data FTPM Pre-Care Text: Classifies surgical wound, implements aseptic technique, initiates traffic control Entry 1 Case Information OR Pain Proc Room Case Level Level 2 Wound Class 1 - Clean Specialty Pain Management Preop Diagnosis M46.1 Postop Same As Preop Yes Postop Diagnosis M46.1 Outcomes Met? Yes Last Modified By: Iwona Alanis RN 04/26/24 14:09:58 Post-Care Text: The patient is free from signs and symptoms of infection Skin Assessment (Pre Procedure) FTPM Pre-Care Text: Implements protective measures to prevent skin/ tissue injury due to thermal or mechanical sources Evaluates for signs and symptoms of physical injury to skin and tissue Entry 1 Skin Integrity Intact, [place], Warm, & Skin Abnormality No Dry Outcomes Met? Yes Last Modified By: Iwona Alanis RN 04/26/24 14:10:06 Post-Care Text: The patient is free from signs and symptoms of injury caused by extraneous objects Patient Positioning FTPM Pre-Care Text: Identifies physical alterations that require additional precautions for procedure-specific positioning, verifies presence of prosthetics or corrective devices, positions the patient, evaluates the patient for signs and symptoms of injury as a result of positioning Entry 1 Procedure SACROILIAC JOINT Body Position Prone INJECTION(Bilateral, .) Feet Uncrossed? Yes Left Arm Position Resting at Side Right Arm Position Resting at Side Left Leg Position Extended Right Leg Position Extended Positioning Device Pillow Under Head Large, Safety Strap, Pillow Large Under (more content not included)... Normal [facility] Main OR Preoperative Recordo n 04-26-2024 Main OR Preoperative Record Main OR Preoperative Record Holding Area Document Type FTPM Summary Primary Physician: García Castro DO Finalized Date/Time: 04/26/24 13:02:25 Pt. Name: BARRY GALDAMEZ/Sex: 1955 Male Med Rec #: [id number] Physician: García Castro DO Financial #: [id number] Pt. Type: P Room/Bed: / Admit/Disch: 04/26/24 12:25:59 - Institution: Case Times Holding FTPM Pre-Care Text: Verifies consent for planned procedure, identifies individual values and wishes concerning care, includes family members in perioperative teaching Secures patient's records' belongings, and valuables, maintains patient's dignity and privacy, and maintains patient confidentiality Entry 1 In Holding 04/26/24 12:59:00 Outcomes Met? Yes Last Modified By: Jennifer Mendieta RN 04/26/24 12:59:58 Post-Care Text: The patient participates in decisions affecting his or her perioperative plan of care The patient's right to privacy is maintained Surgery Checklist FTPM Entry 1 Patient Birthday, ID Band Procedure History and Physical, Identification: Check, Patient Verification: Surgical Consent, With Participation Patient NPO after Midnight: No Date/Time: 04/26/24 13:00:00 Results Reviewed 0730 bowl of cereal Personal Items: Glasses, Jewelry Comments: Personal Items Pt. wearing one ring, Complaints of Pain: Yes Comment: glasses and life alert necklace. Pain Comment: 02/26 lower back pain Operative Site Yes Marking: Marked By: Dr. Castro Location: bilateral SIJI Availability Equipment, X-Ray Verified: Does Patient Smoke No Patient states Yes Comment - Adult -Estefany postop adult Supervision supervision available Case Cancelled in No Holding Area see comments below for reason Last Modified By: Jennifer Mendieta RN 04/26/24 13:02:18 Finalized By: Jennifer Mendieta RN Document Signatures Signed By: Jennifer Mendieta RN 04/26/24 13:02 Normal [facility] Outside Recordson 04-12-2024 Outside Records [id number]#1.00OT GTIFF [facility] Controlled Substances Agreem entson 03-16-2024 Controlled Substances Agreements [id number]#1.00OT GTIFF [facility] Outside Recordson 03-14-2024 Outside Records [id number]#1.00OTGT IFF [facility] Outside Recordson 03-03-2024 Outside Records [id number]#1.00OTG TIFF [facility] ENGINEERING DIRECTOR Drug Screen-LCon 024 Test Name rolan Invalid Interpretation Code [facility] Comment on above: Performed By: #### 1 [id number] #### [facility] [address] [place] [address] Main OR Intraoperative Recor don 02-23-2024 Main OR Intraoperative Record Main OR Intraoperative Record IntraOp Document Type FTPM Summary Primary Physician: García Castro DO Finalized Date/Time: 02/23/24 12:14:37 Pt. Name: DENICEBARRY/Sex: 1955 Male Med Rec #: [id number] Physician: García Castro DO Financial #: [id number] Pt. Type: P Room/Bed: / Admit/Disch: 02/23/24 08:39:50 - Institution: Case Times FTPM Entry 1 Patient Times In Room 02/23/24 11:33:00 Out Room 02/23/24 12:10:00 Procedure Times Start 02/23/24 11:36:00 Stop 02/23/24 12:03:00 Anesthesia Times Start 02/23/24 11:33:00 Stop 02/23/24 12:10:00 Last Modified By: Adry Troy RN 02/23/24 12:12:38 Case Attendance FTPM Entry 1 Entry 2 Entry 3 Case Attendee Abdullahi Camacho DO, Bradford A. Fish MD, James D. Role Performed Anesthesiologist Surgeon - Primary Anesthesiologist of [place] [place] Record Time In 02/23/24 11:33:00 02/23/24 11:33:00 02/23/24 11:33:00 Time Out 02/23/24 12:10:00 02/23/24 12:10:00 02/23/24 12:10:00 Procedure MINIMALLY INVASIVE MINIMALLY INVASIVE MINIMALLY INVASIVE LUMBAR DECOMPRESSION(.) LUMBAR DECOMPRESSION(.) LUMBAR DECOMPRESSION(.) Comments Last Modified By: Woodrow TREVIZO, Adry Troy RN, Adry Troy RN, Ardy Aguirre 02/23/24 12:12:39 02/23/24 12:12:39 02/23/24 12:12:39 Entry 4 Entry 5 Entry 6 Case Attendee José RT(R), Ginny Troy RN, Adry Alanis RN, Iwona Snyder Role Performed Tax Lawyer Ground Equipment Mechanic - Primary Scrub - Primary Time In 02/23/24 11:33:00 02/23/24 11:33:00 02/23/24 11:33:00 Time Out 02/23/24 12:10:00 02/23/24 12:10:00 02/23/24 12:10:00 Procedure MINIMALLY INVASIVE MINIMALLY INVASIVE MINIMALLY INVASIVE LUMBAR DECOMPRESSION(.) LUMBAR DECOMPRESSION(.) LUMBAR DECOMPRESSION(.) Comments Last Modified By: Woodrow TREVIZO, Adry Troy RN, Adry Troy RN, Adry Aguirre 02/23/24 12:12:39 02/23/24 12:12:39 02/23/24 12:12:39 Perioperative Protocols FTPM Pre-Care Text: Implements protective measures prior to operative or invasive procedure, confirms identity before the operative or invasive procedure, verifies operative procedure, surgical site, and laterality Entry 1 Procedure(s) MINIMALLY INVASIVE Patient Identity Birthday, ID Band LUMBAR DECOMPRESSION(.) Verified (select at Check, Patient least 2): Participation Consents / H and P Anesthesia Consent, Operative Site Present Verified H&P, Surgery/Procedure Marking Verified Consent Surgical Site Yes Laterality Verified Yes Verified Procedure Verified Yes Correct Patient Yes Position Verified Availability Equipment, Medication, Prep Dry Yes Verified (If X-ray Applicable) PreOp Antibiotic Yes Time Out Shiraz FARFAN, Chad Madden, Given Participants Woodrow TREVIZO, Annabelle Noland RN, Matthew Goodwin DO, García Pineda, Gifty DENT, José Dukes RT(R), Ginny Time Out Complete 02/23/24 11:35:00 Outcomes Met? Yes Last Modified By: Adry Troy RN 02/23/24 11:40:45 Post-Care Text: The patient is free from signs and symptoms of injury caused by extraneous objects Allergy Information FTPM Pre-Care Text: Verifies allergies Entry 1 Allergies Reviewed? Yes Allergies Reviewed Self/Patient With Outcomes Met? Yes Last Modified By: Adry Troy RN 02/23/24 11:38:45 Post-Care Text: The patient received appropriate medication(s) safely administered during the perioperative period Surgical Procedures FTPM Entry 1 Procedure Description Procedure MINIMALLY INVASIVE Modifiers . LUMBAR DECOMPRESSION (MILD) Surgeon Description MILD L4/5 Primary Procedure Yes Primary Surgeon García Castro DO Start 02/23/24 11:36:00 Stop 02/23/24 12:03:00 Anesthesia Type MAC Surgical Service Pain Management Wound Class 1 - Clean Last Modified By: Adry Troy RN 02/23/24 12:12:41 General Case Data FTPM Pre-Care Text: Classifies surgical wound, implements aseptic technique, initiates traffic control Entry 1 Case Information OR Pain Proc Room Case Level Level 2 Wound Class 1 - Clean Specialty Pain Management ASA Class 3 Preop Diagnosis M48.062, Z00.6 Postop Same As Preop Yes Postop Diagnosis M48.062, Z00.6 Outcomes Met? Yes Last Modified By: Adry Troy RN 02/23/24 12:12:43 Post-Care Text: The patient is free from signs and symptoms of infection Skin Assessment (Pre Procedure) FTPM Pre-Care Text: Implements protective measures to prevent skin/ tissue injury due to thermal or mechanical sources Evaluates for signs and symptoms of physical injury to skin and tissue Entry 1 Skin Integrity Intact, [place], Warm, & Skin Abnormality Yes Dry Abnormality Location left lower extremity, Abnormality Type bruise medium sized disoloration noted to area. Outcomes Met? Yes Last Modified By: Adry Troy RN 02/23/24 11:41:54 Post-Care Text: The patient is free from signs and symptoms of injury caused by extraneous objects Patient Positioning FTP (more content not included)... Normal [facility] Main OR Preoperative Recordo n 02-23-2024 Main OR Preoperative Record Main OR Preoperative Record Holding Area Document Type FTPM Summary Primary Physician: García Castro DO Finalized Date/Time: 02/23/24 08:53:32 Pt. Name: BARRY GALDAMEZ/Sex: 1955 Male Med Rec #: [id number] Physician: García Castro DO Financial #: [id number] Pt. Type: P Room/Bed: / Admit/Disch: 02/23/24 08:39:50 - Institution: Case Times Holding FTPM Pre-Care Text: Verifies consent for planned procedure, identifies individual values and wishes concerning care, includes family members in perioperative teaching Secures patient's records' belongings, and valuables, maintains patient's dignity and privacy, and maintains patient confidentiality Entry 1 In Holding 02/23/24 08:52:00 Outcomes Met? Yes Last Modified By: Jennifer Mendieta RN 02/23/24 08:52:06 Post-Care Text: The patient participates in decisions affecting his or her perioperative plan of care The patient's right to privacy is maintained Surgery Checklist FTPM Entry 1 Patient Birthday, ID Band Procedure History and Physical, Identification: Check, Patient Verification: Surgical Consent, With Participation Patient NPO after Midnight: Yes Date/Time: 02/23/24 08:52:00 Results Reviewed N/A Personal Items: Glasses, Jewelry Comments: Personal Items Pt. wearing one ring Complaints of Pain: Yes Comment: and glasses. Pain Comment: 9/10 lower back pain Operative Site Yes Marking: Marked By: Dr. Castro Location: L4-L5 Availability Equipment, X-Ray Verified: Does Patient Smoke No Patient states Yes Comment - Adult -Sara postop adult Supervision supervision available Case Cancelled in No Holding Area see comments below for reason Last Modified By: Jennifer Mendieta RN 02/23/24 08:53:30 Finalized By: Jennifer Mendieta RN Document Signatures Signed By: Jennifer Mendieta RN 02/23/24 08:53 Normal [facility] Operative Reporton Operative Report Operative Report Diagnosis: m48.062 lumbar stenosis with neurogenic claudication. Z00.6 Procedure: Bilateral minimally invasive lumbar decompression at L4/5 Anesthesia: MAC Fluids: 300mL EBL: 1mL Patient was evaluated the preoperative holding area and identified as the correct patient and procedure was explained, risk and benefits were discussed with the patient. An IV was started and 2 g of Ancef was given preoperatively. The patient was then consented by the anesthesia team. Next, the patient was brought to the procedure area and placed on monitors by the anesthetic team. He was placed in the prone position and all pressure points were padded and patient was evaluated to be in appropriate anatomic position. Next, a timeout was performed. Then the lumbar area with prepped with a ChloraPrep. Next, sterile drapes were applied to the patient. Bony landmarks were then identified using fluoroscopy. Local anesthetic of 2.0% lidocaine with epinephrine was injected subcutaneously to anesthetize the needle clemens to the appropriate anatomic landmarks bilaterally. Next, the cannula was then advanced in AP and contralateral views to the appropriate anatomic landmarks on on the left side first. Once the working channel was in place, next, the Kerrison device was used to remove bone on the inferior portion of the lamina as well as superior portion of the lower lamina segment. Next, a tissue sculptor was utilized to remove soft tissue and ligament. The same procedure was then carried out at each level on the left and then our attention was directed to the right where the same procedure was repeated at each level. Next, skin was localized over the L5/S1 segment and a 17-gauge Touhy needle was then advanced into the appropriate space using xswa-re-sjxnxnyboz and confirmed by fluoroscopy and contrast spread. The contrast did not reveal any abnormal uptake or any evidence of dural tear and showed smooth contour. Next, 10 mg of dexamethasone with 1 cc of normal saline was injected into the epidural space. All instruments were removed from the patient and then the wound was cleaned with sterile saline. Next, skin glue was used for the small incisions, 2 of them, on lower lumbar region. Next, 2 Steri-Strips were applied and a Telfa was then applied over the Steri-Strips with a Tegaderm dressing. The patient was then brought to the postoperative area in stable condition without acute issue. Follow-Up: We will plan to follow-up with the patient post procedurally, all instructions were reviewed with the patient before leaving the discharge area. Patient voiced understanding of postprocedural plan and will call with any questions or issues periprocedurally. Cecilia [facility] Comment on above: Result Comment: Elec tronically Signed By: García Castro DO.deborah\Date and Time Signed: 02/23/24 12:10 EDT Outside Recordson 02-10-2024 Outside Records [id number]#1.00OTG TIFF [facility] Lab - Other Lab Resultson Lab - Other Lab Results [id number]#1.00OTG TIFF [facility] Lab - Other Lab Result[facility] Lab - Other Lab Results [id number]#1.00OTG TIFF [facility] Insurance Correspondence Off iceon 01-01-2024 Insurance Correspondence Office [id number]#1.00TI FF [facility] Office/Clinic Note-Physician on 12-31-2023 Office/Clinic Note-Physician [id number]#1.00TI FF Normal [facility] Outside Recordson 12-15-2023 Outside Records [id number]#1.00OTG TIFF [facility] NUCLEAR STRESS TESTon 2023 NUCLEAR STRESS TEST Interpreted By: Sundar Phelan and Giannuzzi Michael STUDY: MYOCARDIAL PERFUSION STRESS TEST WITH LEXISCAN Performing facility: [facility], [address] [place] [address], [address] [place] [address] Provider: Dariusz Fuller DO, [facility] PCP: Dr. 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 CAD; High Cholesterol; Previous OK; HTN; SOB; Fatigue; Quit smoking 50 years ago. Cardiac catheterization on 2023. PTCA on 2021. COMPARISON: Previous nuclear testing completed [id number] at [facility]. ACCESSION NUMBER(S): [id number] ORDERING CLINICIAN: ADDY FULLER TECHNIQUE: TWO DAY [...] Sundar Argueta 11/25/2023 3:51 PM Dictation workstation: [id number] [facility] Coding Summaryon 11-18-2023 Coding Summary HTMLBase 64 MyzusvalPOa7lRd+PGhlYWQ+ JT0ORRMkC59dmBDzeH9cU0LG TElOSywgQVBQTElOSyIgbmFt KH3ljLOeHWEy IC8+NT5tKIMaHuszvEOxx3B2 lDJ5W68goh1aOQmbmYA2KJEt LeOegconf6qqpWn8NMwqMpnc OyBt SKVqzF71XPY8qW01Id05aKRo hIFrp5zhqQf5QwIvGNUyVUE7 rRjkFKgig4SiTBWmN40onAIs c2U6 LGKxuRzjgWUlXdSspRB1vU7m NXislsgit5zkantaRoc7dr98 zDHmu9D7yCP9G0JtxoA3DARz bGQg AwgapSZFlK8yuigpv8ljxbsp ZkHpPBQwBDm6ZHt8DEPvpZgq LdZlPD70EJU1ONXueuObE8Ag LWFs aZkxFiT1x2P9Eu0ZL4SHCatn L2WDEZZIYFxejJV+NN46mk61 V8LfVisjTqk7AUUaYTE8uZE2 aD0n NCLxYRufq9U0jFZ5X8BfepNr xt9zj5bpKPFvRRfgK22fsIBn x8Y8ZVBjgQC1QRTfjDvsDbGa aG93 Oyc+TRIrzEunx1DiVqqzw8hx i7wmdXk1AecaJCNalhHjhCos QCN0c7BjIr4pQAGqbIS4fEI8 aD0i WzXpNaT7WJzlM166AlUakJDq KnvsO44wZ1BueUN+PHRyPjx0 QSWwuWewGI7yE0CyORFagvfs bGVm wMgjBT2lPOAecyxqLSLtoO8k WBAcX1x8MwFeAxP7IDniM9Vp BXEdmiugLm76jL9dIrKlSeU0 MGlu O9ZqvsM6UOBxzQZfHAkoQBS5 M17er4L8THRxGPDqVXH9aXY4 wP5upZljbvnsvLDrvIpxciZk dGlj FNurWOwmD558SRAbgLvuYdYr ZGluZyBEYXRlOiAgMDUvMDEv MjAyNDwvdGQ+VEHxTCF0eIgi PSAn bLBgPQkkSp7alOukpZebKU8y KRPxhsoeYICibB2rXQWlePNv jOtmDD7lNJJdrfpmb411TfUg MHB0 PYZadIVrE5RluE4kBiRnAETd PSOgN6DhdOUaMBmnP547CHjg ZgY5OBSbgmNhG4FpNSJzqVal OiB0 y3W8Uu1Bb3LsulrhS5ZvjDWo ZlRdZerdCBh3B7IyBlnrkGB+ YX37TRCeWF36OGz4SDS3uVsu PSdi LSNsK9LkcG3oLzYiCDHrBKEn Oyc+PHRhYmxlIHdpZHRoPScx ACRsJkFaoHsuAA6tAo4rUUPr LWNv eSxdjRPzGpUfq3auEDJiLBzv GN0suAwaA2FanXD5BNPqd1u8 Ks96G65kG3ItnQG+PGNvbCB3 aWR0 mP2jTsLlLhN9WTvbF808KvTf xWAkUcown5tck2cqhHo6NyV5 FQJxfqBixTqcDAQ7g7MoMo78 Y29s IHdpZHRoPSIxNSUiIHZhbGln li4glH7lEd3+BWTydBO2vNB8 dX3eKdYeNjG1RJdtS784LwWf cCIv Frrrf7cjq7znyGn1ZiYbFLGr pvMfoWcaJOX7d5ZlVw47J0Ra xMrkj6OiDck2rr16rUDgx8R6 bGU9 P0LcMNFdkblhhXZyxUrwIV0z WUIwbablUMYasT1pIRXnQ2z5 GwHbKjD3TFyfG3CgakD9EZRp bGQg VIFqjQKSdE0tbpxpv3opgggi IgOrMMYaPSb9MAv5SXJfsHpc LgKaOMN3PvX9NQM2jCAjdK7j bGln joswfO2gDza+CUW8oENutJIV PP5qDnbahKT+HWYyOXT9sWzj UVbjIXWxoF4wAKYnC3v5WlEf LjA1 KAtbI2CvwoO9BPMkoUPtMXBn cZMVvY7tmffwn1gmdmaxUpAo QJZxUXd9KTe6HYEwcKewJxRx ZWZ0 UyC9SOS8zTOjmS5exJnpkchv bI5mWci+GrpovJysGSJ1FAu4 P1VzZmd9DQVrqSrwBC0oeKKo ZGlu Lq6inLlsxPqbQD9gTCCsvqqn j548PpLsy2sqPPNguEZwZNde LQD1B57su6F3OPNdGPMfPCR3 dGV4 zR2icYikahjhzPTikKkejmIw nNuvJVumZXwbW389EWKwfMut LtWwBTt2O2AzLui6DNLoxZay ZT0n qIThCCevBh0jbNentQfrIV2r QAVecxflz310IkEng1heBUZn eGEtMKexVDC6T28ls8U1FZHr MDAw EQU6hLZ6zV2fbWwsatbttBSv fIjrfyNyfQqxFKjvVYhhW197 GRImdOhsLpWboLh8N5OqSng0 ZCBz mEvvBJ7egFEaHDqoLg1nnQtr lFzdFG4uGKPloccjk631QuXg q3jzUVXqgQKvJKcrBBA4Z42m b3I6 QJSuGCSkMGU8pDP4lB8kqYwi bjogbGVmdDsgdmVydGljYWwt KHrhU901GIXaoTknWrXuoDzb bnQg OIgrMGu2Y3GnOqclvYS+PC90 MSZiKP49qXUmnAVyq0wqeFa3 NzFjWKKzFFY0vLewXYlts2Qy ZXIt R71evXYzc8B6ANOeyUvfhIKi HlHniMW9bI1cAQrtfdmpt4md ggwwVfajr9wsfy78pX94P07q IHdp SGIiQSFnLQFlVCTthDekpv6t hG2pZr1+WFTthLL4eGL5yF6z DOPnPcM1MZcjR159FuQoxIMo Pjxj o3xxr1lfwJl5EfN5VOKozzFc fCqrHCR8f9GyGg81Y21cFAyi SAKfLKNzCSTwYVZxnWzbjv4c dG9w Ii8+CSBnoJZ4qKD9sY3zPpGu GtI1OUuyS359LdYiaXGpRccy B21fT5EwtIK+GRLjGyr4HIWv dHls LT1ynCHmNUnaEe9jIWX0CvYz WjIkMAslD3EvJUUaxlyjiwkq aDB1TQHdVMUxdH25Jh8rxKlr MTBw jMESzQ9bmgcba0ounkisQmSx RYCjUYn2PNs8RFXdiBblWrOt TKL4ItC7VQV1pXVawL1ccLmq bjog pC8sM6NrYBZwidkfCq30vC8a HcKwWuI6JDrgZqi+T8FDZxPU XZWSBIvQHEASOT64UP38kQVf c3R5 iHL3R6DvYBFdmooysqwwcER6 LCXxRXCxhC75jCXpYNreFp9l r2O2m485ZZShWCOttE70Yn5w dDog OUMojGSZyT8uhlfbc4xkdjjc NhRsSMIiXHx3GNy6SBAxnYkz JdIwMJQ8GxS5ICY3pDZieI4t bGln nobjfM0nPsn+MDEvMzEvMTk1 NjwvdGQ+LSUlQRK9iLseILjy BXRbvD7wWKUvU2n4QiRxXtM4 MGlu F1DuJMWesvfwTh89aY1nOrNk LvD3PCatL5ZptoW0RIRndLHm GKpxRSB7T36in8P9DBObMIRp MDA7 nQG4jN1qnDdhlywkhREqoDhq ceUlgNzhBJuzZYzjP922DJSl iTogEmD0TLdgXFOmEA38FE29 dGQg m2A7vXZ4K8UfXPEwsosrnjqo cLU9SHGeNBDvrF35bJCjARwf Sh8zw4B6q935UQRqFRKnyX29 Zm9u dFhmZYCmkGEHqC8czoaeg2mc hsfqTgAxKZOrZLm1KDx7KSHz jDeuIcChBCQ7NzX6DMQ2xKWb bC1h oVlzlbmjsI8bSvu+TUFMRTwv dGQ+OMCxNEU5aApfZVhtEHUf jH8vDESbJ9u9RlFlMdR3CHpg O3Bh FJSgzanuYo84aO8uUiMsQbI5 XAbmJ8PbeiN6VIEwjKVlLEsl ALA1W61go4R5OWBgMTYzOBG0 dGV4 xM1xcRlbltuifLZzpVgqspPz nTcdVPzfMNysU605HIJlvHqj Ly0YZL60MN35T3YeGsjdxCHa bGU+ PHRhYmxlIHdpZHRoPScxMDAl UzBxzGcvRG9qGv7lDGQqGDKy aTbjcPFbXiEmk8wpIVLyCKlv ZW1w pVpnW3UwtQS4LBUsz8h7Xz39 C17yV2IdcYM+CVTytKH0dQK6 vU7pFsZkGmR6ZLuxZ881EjGu cCIv Heker0chp4udaMe7DpOcMDWe tiFjdXfkQNR5q1EnQy79Y73u IHdpZHRoPSIyMCUiIHZhbGln bj0i lX3zAf7+ZMIrxVM7kPF7aL8m BzJoXaS8NIxpD244PjCywLJk BidlS70kS1XmpTN+PHRyPjx0 ZCBz tSvwWK0pgEUoSZaeUv0vQXJ4 UvZhNqTdUBihD9HyTCSufdoy vbxupXY6JHQyOSMslO97Fg4u dDog Ki8pRBIwYEB4NDLvxBYmS8Wb gD7yEaOpAUVuPBNlC5LxxBAp FVutC495EGthCpW0FAPmynEc Y2Fs QKVkxGrbZnS9m0H5Ya0VdFlv nGQdKC6wVxNoMLl2S9YhWou7 AWCkpYxvZA7qsBHpXGedYv7m aWdo qBbkME1nPCQhuqhgz402CiFa b7yyAIKzbGSrOCozRCY8D97b e5W5OXYyJSFfDMG3hLG0tT3t bGln bjogbGVmdDsgdmVydGljYWwt PEvrY428LRZybOjnRaXPDpf9 R2PmOzk9ZQAkyNcjCZ1odAQc ZGlu Ox9ghQxkvDcbIF3fYWIhmten j285BjRum3hnANLfoSBrUUgd DZN1D00bu5R2WYIgKXOaCLW5 dGV4 oX4rkKtoiiwlpQZssJadanPa qKvpNIilKKqqQ130XBBykFkw Hi7CUiq6K9GwCxi7LYGbjAyt ZT0n lZMfCRapVw7hlFgzcYboXS0g HHExwelsr940MfMml6mvJWHr zNZdLDhrHSK9L63qh4M2QVXj MDAw BZK0vIC4wE0mgQjerqfjcGCy rArfaoPvvEulENsfZGpsM591 IHRvcDsnPlBheWVyOjwvdGQ+ PC90 wj50L3BwYfsfFlz2VTDrKUJ0 cRD6rP6fUQGqTJqcm4E9bDT9 H7QzpfTmqy1hn9wzZGVjULoc Y29s bGF (more content not included)... Normal [facility] Pulmonary Procedureon 2023 Pulmonary Procedure [id number]#1.00OTG TIFF I agree with the computerized interpretation. This study indicates restrictive lung disease, there is no air trapping or hyperinflation. There is no obstruction. There is a mild diffusion impairment. Please correlate clinically. [Electronically Signed on: 11/17/2023 15:14 EDT] Ken Argueta DO [Verified on: 11/17/2023 15:14 EDT] Ken Argueta DO [Transcribed on: 11/17/2023 12:59 EDT] [facility] 11-04-2023 L Specimen: [id number] Received: 11/04/23 Status: LAYTON Narayan Num: [id number] Spec Type: Surgical Subm Dr: Sander Elias DO Tissues: A Duodenum - Biopsy (DUODENUM BIOPSY) B Gastric Biopsy (PRE-PYLORIC BIOPSY) C Esophagus Biopsy (DISTAL ESOPHAGUS BIOPSY) Procedures: HE/6, Gross/Micro L4/3 Age/ Patient Sex Location Account Attending Physician Barry Galdamez 68/M LABELL [id number] Sander Elias DO SPEC NUM: [id number] RECD: 11/04/23 STATUS: LAYTON NARAYAN NUM: [id number] LETA: 11/04/23 DR: Sander Elias DO ENTERED: 11/04/[address] [facility] [address]: SPEC TYPE: Surgical DEPT: SNEHA VEGA ENTERED BY: [id number] RECV BY: [id number] ORDERED: HE/6, Gross/Micro L4/3 ORDERED: HE/6, Gross/Micro [...] any other specific histomorphological changes observed Specimen: [id number] Received: 11/04/23 Status: LAYTON Donahuechris Num: [id number] Spec Type: Surgical Subm Dr: Sander Elias DO Tissues: A Duodenum - Biopsy (DUODENUM BIOPSY) B Gastric Biopsy (PRE-PYLORIC BIOPSY) C Esophagus Biopsy (DISTAL ESOPHAGUS BIOPSY) Procedures: HE/6, Gross/Micro L4/3 Patient: Barry Galdamez [id number] (Continued) Specimen: [id number] Received: 11/04/23 (Continued) Signed (signature on file) Indigo Hickey MD 11/07/23 1849 Specimen: [id number] Received: 11/04/23 Status: LAYTON Narayan Num: [id number] Spec Type: Surgical Subm Dr: Sander Elias,DO Tissues: A Duodenum - Biopsy (DUODENUM BIOPSY) B Gastric Biopsy (PRE-PYLORIC BIOPSY) C Esophagus Biopsy (DISTAL ESOPHAGUS BIOPSY) Procedures: HE/6, Gross/Micro L4/3 Patient: Barry Galdamez [id number] (Continued) Specimen: [id number] Received: 11/04/23 (Continued) Gross Description A. The [...] and gastritis, normal colon (suboptimal bowel prep). TW/ELY CPT Codes 00768 x 3 Specimen: [id number] Received: 11/04/23 Status: LAYTON Narayan Num: [id number] Spec Type: Surgical Subm Dr: Sander Elias, Tissues: A Duodenum - Biopsy (DUODENUM BIOPSY) B Gastric Biopsy (PRE-PYLORIC BIOPSY) C Esophagus Biopsy (DISTAL ESOPHAGUS BIOPSY) Procedures: HE/Martin, Gross/Micro L4/3 Patient: Barry Galdamez [id number] (Continued) Signed (signature on file) Indigo Hickey MD 11/07/23 1849 [facility] Office/Clinic Note-Nurseon 0 10-27-2023 Office/Clinic Note-Nurse [id number]#1.00TIF F [facility] Outside Records Officeon Outside Records Office [id number]#1.00TI FF [facility] Outside Recordson 10-22-2023 Outside Records [id number]#1.00O [facility] Outside Office Co pyon 10-20-2023 Laboratory Outside Office Copy [id number]#1.00TIF F [facility] Outside Recordson 10-19-2023 Outside Records [id number]#1.00O [facility] Consent for Treatmenton 09-18 Consent for Treatment [id number]#1.00TIF F [facility] Consent for Treatment [id number]#1.00TI [facility] Consultation Noteon 10-15-19 Consultation Note Patient is presentin with complaints [...] with any questions or concerns that arise. [facility] Comment on above: Result Comment: Elec tronically Signed By: García Castro DO\.br\Date and Time Signed: 10/15/23 11:29 EDT In office Testingon 10-15-19 In office Testing [id number]#1.00TIF F [facility] Office/Clinic Note-Physician on 10-15-2023 Office/Clinic Note-Physician [id number]#1.00TIF F [facility] Orders Officeon 10-15-2023 Orders Office [id number]#1.00TIF F [facility] ENGINEERING DIRECTOR Drug Screen-LCon 024 Test Name tox flex 23 Invalid Interpretation Code [facility] Comment on above: Performed By: #### 1 [id number] #### [facility] [address] [place] [address] Patient Correspondenceon Patient Correspondence [id number]#1.00TIF F Normal [facility] Patient Correspondence [id number]#1.00TIF F Normal [facility] Patient History Officeon Patient History Office [id number]#1.00TIF F Normal [facility] Release of Records Officeon 10-15-2023 Release of Records Office [id number]#1.00TIF F [facility] Outside Recordson 10-12-2023 Outside Records [id number]#1.00O TGTIFF [facility] Outside Recordson 10-02-2023 Outside Records [id number]#1.00OTG TIFF [facility] Basic Metabolic Panelon 09-17 Anion gap [Moles/Vol] 12.3 mmol/L Normal 6.0-15.[address] [facility] Comment on above: Order Comment: WAIT TO DRAW RN BUST AT THE MOMENT WOULD LIKE TO BE PRESENT Performed By: #### B MP, CBC #### [facility] [address] [id number] [facility] Calcium [Mass/Vol] 8.9 mg/dL Normal 8.6-10.3 [facility] Comment on above: Order Comment: WAIT TO DRAW RN BUST AT THE MOMENT WOULD LIKE TO BE PRESENT Performed By: #### B MP, CBC #### [facility] [address] [id number] [facility] Chloride [Moles/Vol] 102 mmol/L Normal 98-107 [facility] Comment on above: Order Comment: WAIT TO DRAW RN BUST AT THE MOMENT WOULD LIKE TO BE PRESENT Performed By: #### B MP, CBC #### [address] CO2 [Moles/Vol] 28.8 mmol/L Normal 21.0-31.0 [facility] Comment on above: Order Comment: WAIT TO DRAW RN BUST AT THE MOMENT WOULD LIKE TO BE PRESENT Performed By: #### B MP, CBC #### [address] Creatinine [Mass/Vol] 0.88 mg/dL Normal 0.70-1.30 [facility] Comment on above: Order Comment: WAIT TO DRAW RN BUST AT THE MOMENT WOULD LIKE TO BE PRESENT Performed By: #### B MP, CBC #### [address] Creatinine Clr Calc Pharmacy 106.55 Normal [facility] Comment on above: Order Comment: WAIT TO DRAW RN BUST AT THE MOMENT WOULD LIKE TO BE PRESENT Result Comment: PERF ORMED BY: [place] [address] PATHOLOGIST FIN[employer]CIAL SERVICES OFFICER KAREN CORONADO M.D. Performed By: #### B MP, CBC #### [address] GFR/1.73 sq M.predicted MDRD (S/P/Bld) [Vol rate/Area] mL/min/{1.73_m2} Normal [facility] Comment on above: Order Comment: WAIT TO DRAW RN BUST AT THE MOMENT WOULD LIKE TO BE PRESENT Performed By: #### B MP, CBC #### [address] Glucose [Mass/Vol] 116 mg/dL High 70-100 [facility] Comment on above: Order Comment: WAIT TO DRAW RN BUST AT THE MOMENT WOULD LIKE TO BE PRESENT Result Comment: [facility] om Glucose Reference Range is dependent on time and content of last meal. Glucose of more than 200 mg/dL in a nonstressed, ambulatory subject supports the diagnosis of Diabetes Mellitus. ADA recommended reference range Performed By: #### B MP, CBC #### [address] [place] [address] [place] Potassium [Moles/Vol] 4.1 mmol/L Normal 3.5-5.1 [facility] Comment on above: Order Comment: WAIT TO DRAW RN BUST AT THE MOMENT WOULD LIKE TO BE PRESENT Performed By: #### B MP, CBC #### [facility] [address] Sodium [Moles/Vol] 139 mmol/L Normal 136-145 [facility] Comment on above: Order Comment: WAIT TO DRAW RN BUST AT THE MOMENT WOULD LIKE TO BE PRESENT Performed By: #### B MP, CBC #### [facility] [address] Urea nitrogen [Mass/Vol] 18 mg/dL Normal 7-25 [facility] Comment on above: Order Comment: WAIT TO DRAW RN BUST AT THE MOMENT WOULD LIKE TO BE PRESENT Performed By: #### B MP, CBC #### [facility] [address] Basophils Auto (Bld) [#/Vol] Ordered By: Maya Read on 10-01-2023 Basophils (Bld) [#/Vol] 0.1 10*3/uL 0.0-0.2 [facility] Basophils/100 WBC Auto (Bld) Ordered By: Maya Read on 10-01-2023 Basophils/100 WBC (Bld) 0.6 % . F [facility] Calcium [Mass/volume] in Ser um or PlasmaOrdered By: Maya Read on 10-01-2023 Calcium [Mass/Vol] 8.9 mg/dL 8.6-10.3 [facility] Carbon dioxide, total [Moles /volume] in Serum or PlasmaOrdered By: Maya Read on 10-01-2023 CO2 [Moles/Vol] 28.8 mmol/L 21.0-31.0 [facility] Chloride [Moles/volume] in S jada or PlasmaOrdered By: Maya Read on 10-01-2023 Chloride [Moles/Vol] 102 mmol/L 98-107 [facility] Complete Blood Count Auto Di ffon 10-01-2023 Basophils (Bld) [#/Vol] 0.1 10*3/uL Normal 0.0-0.2 [facility] Comment on above: Order Comment: WAIT TO DRAW RN BUST AT THE MOMENT WOULD LIKE TO BE PRESENT Result Comment: PERF ORMED BY: [place] [id number] PATHOLOGIST [employer] KAREN CORONADO M.D. Performed By: #### B MP, CBC #### [address] Basophils/100 WBC (Bld) 0.6 % Normal . [facility] Comment on above: Order Comment: WAIT TO DRAW RN BUST AT THE MOMENT WOULD LIKE TO BE PRESENT Performed By: #### B MP, CBC #### [address] Eosinophils (Bld) [#/Vol] 0.3 10*3/uL Normal 0.0-0.45 [facility] Comment on above: Order Comment: WAIT TO DRAW RN BUST AT THE MOMENT WOULD LIKE TO BE PRESENT Performed By: #### B MP, CBC #### [address] Eosinophils/100 WBC (Bld) 2.3 % Normal . [facility] Comment on above: Order Comment: WAIT TO DRAW RN BUST AT THE MOMENT WOULD LIKE TO BE PRESENT Performed By: #### B MP, CBC #### [address] Erythrocyte distribution width (RBC) [Ratio] 14.4 % Normal 12.0-14.8 [facility] Comment on above: Order Comment: WAIT TO DRAW RN BUST AT THE MOMENT WOULD LIKE TO BE PRESENT Performed By: #### B MP, CBC #### [address] Hematocrit (Bld) [Volume fraction] 36.7 % Low 38.8-50.0 [facility] Comment on above: Order Comment: WAIT TO DRAW RN BUST AT THE MOMENT WOULD LIKE TO BE PRESENT Performed By: #### B MP, CBC #### [address] Hemoglobin (Bld) [Mass/Vol] 12.0 g/dL Low 13.0-17.0 [facility] Comment on above: Order Comment: WAIT TO DRAW RN BUST AT THE MOMENT WOULD LIKE TO BE PRESENT Performed By: #### B MP, CBC #### [address] Lymphocytes (Bld) [#/Vol] 2.4 10*3/uL Normal 1.00-4.8 [facility] Comment on above: Order Comment: WAIT TO DRAW RN BUST AT THE MOMENT WOULD LIKE TO BE PRESENT Performed By: #### B MP, CBC #### [address] Lymphocytes/100 WBC (Bld) 21.1 % Normal . [facility] Comment on above: Order Comment: WAIT TO DRAW RN BUST AT THE MOMENT WOULD LIKE TO BE PRESENT Performed By: #### B MP, CBC #### [address] MCH (RBC) [Entitic mass] 26.1 pg Low 27.5-35.2 [facility] Comment on above: Order Comment: WAIT TO DRAW RN BUST AT THE MOMENT WOULD LIKE TO BE PRESENT Performed By: #### B MP, CBC #### [address] MCV (RBC) [Entitic vol] 80.0 fL Low 83.5-101 [facility] Comment on above: Order Comment: WAIT TO DRAW RN BUST AT THE MOMENT WOULD LIKE TO BE PRESENT Performed By: #### B MP, CBC #### [address] Mean Corpuscular HGB Conc 32.6 g/dL Normal 32.5-35.6 [facility] Comment on above: Order Comment: WAIT TO DRAW RN BUST AT THE MOMENT WOULD LIKE TO BE PRESENT Performed By: #### B MP, CBC #### [address] Monocytes (Bld) [#/Vol] 0.9 10*3/uL High 0.0-0.8 [facility] Comment on above: Order Comment: WAIT TO DRAW RN BUST AT THE MOMENT WOULD LIKE TO BE PRESENT Performed By: #### B MP, CBC #### [address] Monocytes/100 WBC (Bld) 8.2 % Normal . [facility] Comment on above: Order Comment: WAIT TO DRAW RN BUST AT THE MOMENT WOULD LIKE TO BE PRESENT Performed By: #### B MP, CBC #### [address] Neutrophils (Bld) [#/Vol] 7.6 10*3/uL Normal 1.8-7.7 [facility] Comment on above: Order Comment: WAIT TO DRAW RN BUST AT THE MOMENT WOULD LIKE TO BE PRESENT Performed By: #### B MP, CBC #### [address] Neutrophils/100 WBC (Bld) 67.8 % Normal . [facility] Comment on above: Order Comment: WAIT TO DRAW RN BUST AT THE MOMENT WOULD LIKE TO BE PRESENT Performed By: #### B MP, CBC #### [address] NRBC% 0.0 /100{WBC} Normal 0-0.5 [facility] Comment on above: Order Comment: WAIT TO DRAW RN BUST AT THE MOMENT WOULD LIKE TO BE PRESENT Performed By: #### B MP, CBC #### [address] Platelet mean volume (Bld) [Entitic vol] 6.9 fL Normal 6.6-10.1 [facility] Comment on above: Order Comment: WAIT TO DRAW RN BUST AT THE MOMENT WOULD LIKE TO BE PRESENT Performed By: #### B MP, CBC #### [address] Platelets (Bld) [#/Vol] 317 10*3/uL Normal 150-450 [facility] Comment on above: Order Comment: WAIT TO DRAW RN BUST AT THE MOMENT WOULD LIKE TO BE PRESENT Performed By: #### B MP, CBC #### [facility] [address] RBC (Bld) [#/Vol] 4.59 10*6/uL Normal 3.90-5.60 [facility] Comment on above: Order Comment: WAIT TO DRAW RN BUST AT THE MOMENT WOULD LIKE TO BE PRESENT Performed By: #### B MP, CBC #### [facility] [address] WBC (Bld) [#/Vol] 11.2 10*3/uL High 4.1-10.5 [facility] Comment on above: Order Comment: WAIT TO DRAW RN BUST AT THE MOMENT WOULD LIKE TO BE PRESENT Performed By: #### B MP, CBC #### [facility] [address] Creatinine [Mass/volume] in Serum or PlasmaOrdered By: Maya Read on 10-01-2023 Creatinine [Mass/Vol] 0.88 mg/dL 0.70-1.[address] [facility] Eosinophils Auto (Bld) [#/Vo l]Ordered By: Maya Read on 10-01-2023 Eosinophils (Bld) [#/Vol] 0.3 10*3/uL 0.0-0.45 [facility] Eosinophils/100 WBC Auto (Bl d)Ordered By: Maya Read on 10-01-2023 Eosinophils/100 WBC (Bld) 2.3 % . [facility] Erythrocyte distribution wid th Auto (RBC) [Ratio]Ordered By: Maya Read on 10-01-2023 Erythrocyte distribution width (RBC) [Ratio] 14.4 % 12.0-14.8 [facility] Glucose [Mass/volume] in Ser um or PlasmaOrdered By: Maya Read on 10-01-2023 Glucose [Mass/Vol] 116 mg/dL 70-100 [facility] Comment on above: ADA recommended refe rence rangeRandom Glucose Reference Range is dependent on time and content of last meal. Glucose of more than 200 mg/dL in a nonstressed, ambulatory subject supports the diagnosis of Diabetes Mellitus. Hematocrit Auto (Bld) [Volum e fraction]Ordered By: Maya Read on 10-01-2023 Hematocrit (Bld) [Volume fraction] 36.7 % 38.8-50.0 [facility] Hemoglobin [Mass/volume] in BloodOrdered By: Maya Read on 10-01-2023 Hemoglobin (Bld) [Mass/Vol] 12.0 g/dL 13.0-17.0 [facility] Leukocytes [#/volume] correc jorge for nucleated erythrocytes in Blood by Automated counOrdered By: Maya Read on 10-01-2023 WBC corrected for nucl RBC Auto (Bld) [#/Vol] 11.2 10*3/uL 4.1-10.5 [facility] Lymphocytes Auto (Bld) [#/Vo l]Ordered By: Maya Read on 10-01-2023 Lymphocytes (Bld) [#/Vol] 2.4 10*3/uL 1.00-4.8 [facility] Lymphocytes/100 WBC Auto (Bl d)Ordered By: Maya Read on 10-01-2023 Lymphocytes/100 WBC (Bld) 21.1 % . [facility] MCH Auto (RBC) [Entitic mass ]Ordered By: Maya Read on 10-01-2023 MCH (RBC) [Entitic mass] 26.1 pg 27.5-35.2 [facility] MCHC Auto (RBC) [Mass/Vol]Or dered By: Maya Read on 10-01-2023 MCHC (RBC) [Mass/Vol] 32.6 g/dL 32.5-35.[address] [facility] MCV Auto (RBC) [Entitic vol] Ordered By: Maya Read on 10-01-2023 MCV (RBC) [Entitic vol] 80.0 fL 83.5-101 [facility] Monocytes Auto (Bld) [#/Vol] Ordered By: Maya Read on 10-01-2023 Monocytes (Bld) [#/Vol] 0.9 10*3/uL 0.0-0.8 [facility] Monocytes/100 WBC Auto (Bld) Ordered By: Maya Read on 10-01-2023 Monocytes/100 WBC (Bld) 8.2 % . [facility] Neutrophils Auto (Bld) [#/Vo l]Ordered By: Maya Read on 10-01-2023 Neutrophils (Bld) [#/Vol] 7.6 10*3/uL 1.8-7.7 [facility] Neutrophils/100 WBC Auto (Bl d)Ordered By: Maya Read on 10-01-2023 Neutrophils/100 WBC (Bld) 67.8 % . [facility] No Panel InformationOrdered By: Maya Read on 10-01-2023 Estimated GFR (CKD-EPI) > 60.0 mL/Min [facility] Creatinine Clearance (Chem 106.55 [facility] Nucleated erythrocytes [Pres ence] in Blood by Automated countOrdered By: Maya Read on 10-01-2023 Nucleated RBC Auto Ql (Bld) 0.0 /100{WBC} 0-0.5 [facility] Outside Recordson 10-01-2023 Outside Records [id number]#1.00OT IFF [facility] Platelet mean volume Auto (B ld) [Entitic vol]Ordered By: Maya Read on 10-01-2023 Platelet mean volume (Bld) [Entitic vol] 6.9 fL 6.6-10.1 [facility] Platelets Auto (Bld) [#/Vol] Ordered By: Maya Read on 10-01-2023 Platelets (Bld) [#/Vol] 317 10*3/uL 150-450 [facility] Potassium [Moles/volume] in Serum or PlasmaOrdered By: Maya Read on 10-01-2023 Potassium [Moles/Vol] 4.1 mmol/L 3.5-5.[address] [facility] RBC Auto (Bld) [#/Vol]Ordere d By: Maya Read on 10-01-2023 RBC (Bld) [#/Vol] 4.59 10*6/uL 3.90-5.60 [facility] Serum or plasma anion gap de terminationOrdered By: Maya Read on 10-01-2023 Anion gap [Moles/Vol] 12.3 mmol/L 6.0-15.0 [facility] Sodium [Moles/volume] in Ser um or PlasmaOrdered By: Maya Read on 10-01-2023 Sodium [Moles/Vol] 139 mmol/L 136-145 [facility] Urea nitrogen [Mass/volume] in Serum or PlasmaOrdered By: Maya Read on 10-01-2023 Urea nitrogen [Mass/Vol] 18 mg/dL 7-25 [facility] WBC Auto (Bld) [#/Vol]Ordere d By: Maya Read on 10-01-2023 WBC (Bld) [#/Vol] 11.2 10*3/uL 4.1-10.5 [facility] A1C with Estimated Average Dorothy bentley 09-30-2023 Glucose [Mass/Vol] 134 mg/dL Normal [facility] Comment on above: Result Comment: PERF ORMED BY: [place] [address] PATHOLOGIST FINANCIAL SERVICES OFFICER KAREN CORONADO M.D. Performed By: #### A 1C [facility] eA #### [facility] [address] [place] [address] HbA1c (Bld) [Mass fraction] 6.3 % High 4.3-5.6 [facility] Comment on above: Result Comment: Incr eased risk for diabetes: 5.7 - 6.4 diabetes: >6.4 glycemic control for adults with diabetes: <7.0 Performed By: #### A 1C [facility] eA #### [facility] [address] [place] [address] Activated partial thrombopla stin time (aPTT) in platelet poor plasma by coagulation aOrdered By: Singh Mack on 09-30-2023 aPTT Coag (PPP) [Time] 38.4 s 25.1-36.5 [facility] Comment on above: A hematocrit value g reater than 55% may lead to inaccurate results in coagulation testing. Patients having hematocrit values >55% require a special collection tube for coagulation studies. Please contact the laboratory at [phone] for redraw instructions. Basic Metabolic Panelon 09-17 Anion gap [Moles/Vol] 11.8 mmol/L Normal 6.0-15.0 [facility] Comment on above: Performed By: #### H S TROP, MG, LIPID, BMP #### [address] Calcium [Mass/Vol] 8.8 mg/dL Normal 8.6-10.3 [facility] Comment on above: Performed By: #### H S TROP, MG, LIPID, BMP #### [address] Chloride [Moles/Vol] 102 mmol/L Normal 98-107 [facility] Comment on above: Performed By: #### H S TROP, MG, LIPID, BMP #### [address] CO2 [Moles/Vol] 27.4 mmol/L Normal 21.0-31.0 [facility] Comment on above: Performed By: #### H S TROP, MG, LIPID, BMP #### [address] Creatinine [Mass/Vol] 0.70 mg/dL Normal 0.70-1.30 [facility] Comment on above: Performed By: #### H S TROP, MG, LIPID, BMP #### [place] [address] [place] Creatinine Clr Calc Pharmacy 117.20 Normal [facility] Comment on above: Performed By: #### H S TROP, MG, LIPID, BMP #### [place] [address] [place] GFR/1.73 sq M.predicted MDRD (S/P/Bld) [Vol rate/Area] mL/min/{1.73_m2} Normal [facility] Comment on above: Performed By: #### H S TROP, MG, LIPID, BMP #### [facility] [address] Glucose [Mass/Vol] 101 mg/dL High 70-100 [facility] Comment on above: Result Comment: [place] Glucose Reference Range is dependent on time and content of last meal. Glucose of more than 200 mg/dL in a nonstressed, ambulatory subject supports the diagnosis of Diabetes Mellitus. ADA recommended reference range Performed By: #### H S TROP, MG, LIPID, BMP #### [facility] [address] Potassium [Moles/Vol] 4.2 mmol/L Normal 3.5-5.1 [facility] Comment on above: Performed By: #### H S TROP, MG, LIPID, BMP #### [facility] [address] Sodium [Moles/Vol] 137 mmol/L Normal 136-145 [facility] Comment on above: Performed By: #### H S TROP, MG, LIPID, BMP #### [facility] [address] Urea nitrogen [Mass/Vol] 24 mg/dL Normal 7-25 [facility] Comment on above: Performed By: #### H S TROP, MG, LIPID, BMP #### [address] Cholesterol [Mass/volume] in Serum or PlasmaOrdered By: Maya Read on 09-30-2023 Cholesterol [Mass/Vol] 89 mg/dL 140-200 [facility] Comment on above: Chol less than 200 m g/dl low riskChol 201-239 mg/dl borderline riskChol 240 mg/dl and greater high risk Cholesterol in LDL Calc [Mas s/Vol]Ordered By: Maya Read on 09-30-2023 Cholesterol in LDL [Mass/Vol] 39 mg/dL 0-100 [facility] Comment on above: LDL ATP III CLASSIFI CATIONLDL less than 100 mg/dL OptimalLDL 100-129 mg/dL Near or above optimalLDL 130-159 mg/dL Borderline highLDL 160-189 mg/dL HighLDL greater than 189 mg/dL Very high Cholesterol in VLDL Calc [Ma ss/Vol]Ordered By: Maya Read on 09-30-2023 Cholesterol in VLDL [Mass/Vol] 20 mg/dL [facility] ECG 12 lead ECGon 09-30-2023 ECG 12 lead ECG [facility] Main [place] [address] [place] [id number] Electrocardiograph Report Signed Patient: Barry Galdamez MR#: [id number] 41 : 1955 Acct:[id number] Age/Sex: 68 / M ADM Date: 09/30/23 Loc: Room: [address] [place] [address] Type: ADM IN Attending Dr: Juaquin Mckinley [...] Barbara Rivas MD 0 09/30/23 0729 Normal [facility] Glucose mean value [Mass/vol ume] in Blood Estimated from glycated hemoglobinOrdered By: Singh Mack on 09-30-2023 Average glucose Estimated from glycated hemoglobin (Bld) [Mass/Vol] 134 mg/dL [facility] Hemoglobin A1c percentageOrd ered By: Singh Mack on 09-30-2023 HbA1c (Bld) [Mass fraction] 6.3 % 4.3-5.6 [facility] Comment on above: Increased risk for d iabetes: 5.7 - 6.4diabetes: >6.4glycemic control for adults with diabetes: <7.0 IntraOperative Documentson 0 09-30-2023 IntraOperative Documents [id number]#1.00TI FF Normal [facility] Lipid Panelon 09-30-2023 Cholesterol [Mass/Vol] 89 mg/dL Low 140-200 [facility] Comment on above: Result Comment: Chol less than 200 mg/dl low risk Chol 201-239 mg/dl borderline risk Chol 240 mg/dl and greater high risk Performed By: #### A 1C [facility] eA #### [facility] [address] [place] [id number] [facility] Cholesterol in HDL [Mass/Vol] 30 mg/dL Normal 23-92 [facility] Comment on above: Result Comment: HDL CHOL ATP-III CLASSIFICATION Cardiovascular Risk HDL > or equal to 60 mg/dL LOW HDL < 40 mg/dL HIGH Performed By: #### A 1C WT eA #### [facility] [address] [place] [id number] [facility] Cholesterol.total/Ayse sterol in HDL [Mass ratio] 3.0 {ratio} Normal <5.0 [facility] Comment on above: Result Comment: PERF ORMED BY: [place] [address] PATHOLOGIST FINANCIAL SERVICES OFFICER KAREN CORONADO M.D. Performed By: #### A 1C WT eA #### [facility] [address] [place] [id number] [facility] LDL Cholesterol,Calculated 39 mg/dL Normal 0-100 [facility] Comment on above: Result Comment: LDL ATP III CLASSIFICATION LDL less than 100 mg/dL Optimal LDL 100-129 mg/dL Near or above optimal LDL 130-159 mg/dL Borderline high LDL 160-189 mg/dL High LDL greater than 189 mg/dL Very high Performed By: #### A 1C WT eA #### [facility] [address] [place] [id number] [place] Triglyceride w/Reflex 101 mg/dL Normal 0-149 [facility] Comment on above: Result Comment: TRIG ATP III CLASSIFICATION TRIG less than 150 mg/dL Normal TRIG 150-199 mg/dL Borderline high TRIG 200-500 mg/dL High TRIG greater than 500 mg/dL Very high Standard traceable to the Center for Disease Conrtrol and Prevention (CDC) test method. Performed By: #### A 1C WT eA #### [facility] [address] VLDL CHOLESTEROL 20 mg/dL Normal [facility] Comment on above: Performed By: #### A 1C WTH eA #### [facility] [address] [place] [id number] [facility] Magnesiumon 09-30-2023 Magnesium [Mass/Vol] 1.8 mg/dL Low 1.9-2.7 [facility] Comment on above: Performed By: #### H S TROP, MG, LIPID, BMP #### [place] [id number] [facility] Magnesium [Mass/volume] in S jada or PlasmaOrdered By: Maya Read on 09-30-2023 Magnesium [Mass/Vol] 1.8 mg/dL 1.9-2.7 [facility] Monitor Recordon 09-30-2023 Monitor Record [id number]#1.00TI FF Normal [facility] Outside Recordson 09-30-2023 Outside Records [id number] [id number]#1.00O TGTIFF Normal [facility] Outside Records [id number]#1.00OTG TIFF Normal [facility] Partial Thromboplastin Timeo n 09-30-2023 aPTT Coag (Bld) [Time] 38.4 s High 25.1-36.5 [facility] Comment on above: Result Comment: A he matocrit value greater than 55% may lead to inaccurate results in coagulation testing. Patients having hematocrit values >55% require a special collection tube for coagulation studies. Please contact the laboratory at [phone] for redraw instructions. PERFORMED BY: [place] [address] PATHOLOGIST FINANCIAL SERVICES OFFICER KAREN CORONADO M.D. Performed By: #### A 1C WTH eA #### [address] aPTT Coag (Bld) [Time] 39.0 s High 25.1-36.5 [facility] Comment on above: Result Comment: A he matocrit value greater than 55% may lead to inaccurate results in coagulation testing. Patients having hematocrit values >55% require a special collection tube for coagulation studies. Please contact the laboratory at [phone] for redraw instructions. PERFORMED BY: [place] [address] PATHOLOGIST FINANCIAL SERVICES OFFICER KAREN CORONADO M.D. Performed By: #### P TT #### [address] Serum or plasma high density lipoprotein (HDL) cholesterol measurementOrdered By: Maya Read on 09-30-2023 Cholesterol in HDL [Mass/Vol] 30 mg/dL 23-92 [facility] Comment on above: HDL CHOL ATP-III CLA SSIFICATION Cardiovascular RiskHDL > or equal to 60 mg/dL LOWHDL < 40 mg/dL HIGH Serum or plasma total choles terol/high density lipoprotein (HDL) cholesterol mass ratOrdered By: Maya Read on 09-30-2023 Cholesterol.total/Ayse sterol in HDL [Mass ratio] 3.0 {ratio} <5.0 [facility] Triglyceride [Mass/volume] i n Serum or PlasmaOrdered By: Maya Read on 09-30-2023 Triglyceride [Mass/Vol] 101 mg/dL 0-149 [facility] Comment on above: TRIG ATP III CLASSIF ICATIONTRIG less than 150 mg/dL NormalTRIG 150-199 mg/dL Borderline highTRIG 200-500 mg/dL High TRIG greater than 500 mg/dL Very highStandard traceable to the Center for Disease Conrtrol and Prevention (CDC) test method. Troponin I High Sensitivityo n 09-30-2023 Troponin I High Sensitivity 976.8 pg/mL Off scale high 0.0-20.0 [facility] Comment on above: Result Comment: Crit ical Result : Called to and read back by: RAMO GARRISON at: 09/30/2023 10:10:05 by:[id number] PERFORMED BY: [place] [address] PATHOLOGIST FINANCIAL SERVICES OFFICER KAREN CORONADO M.D. Performed By: #### A 1C [facility] eA #### [address] Troponin I High Sensitivity 1175.9 pg/mL Off scale high 0.0-20.0 [facility] Comment on above: Result Comment: Crit ical Result : Called to and read back by: JARON GERONIMO at: 09/30/2023 03:54:06 by:[id number] PERFORMED BY: [place] [address] PATHOLOGIST FINANCIAL SERVICES OFFICER KAREN CORONADO M.D. Performed By: #### H S TROP, MG, LIPID, BMP #### [address] Troponin I High Sensitivity 1398.0 pg/mL Off scale high 0.0-20.0 [facility] Comment on above: Result Comment: Resu lts called at 0353 on 09/30/23 PERFORMED BY: [place] [address] PATHOLOGIST FINANCIAL SERVICES OFFICER KAREN CORONADO M.D. Performed By: #### A 1C [facility] eA #### [place] [id number] [facility] Troponin I.cardiac [Mass/vol ume] in Serum or Plasma by Detection limit <= 0.01 ng/Ordered By: Maya Read on 09-30-2023 Troponin I.cardiac DL <= 0.01 ng/mL [Mass/Vol] 976.8 pg/mL 0.0-20.0 [facility] Comment on above: Critical Result : Ca lled to and read back by: RAMO GARRISON at: 09/30/2023 10:10:05 by:[id number] [facility] echo transthoracicon [facility] echo transthoracic [facility] Main [place] [address] [place] [address] Echocardiogram Signed Patient: Barry Galdamez MR#: [id number] 41 : 1955 Acct:[id number] Age/Sex: 68 / M ADM Date: 09/30/23 Loc: Room: [address] [place] [address] Type: ADM IN Attending Dr: Juaquin Mckinley MD Ordering Provider: Maya Read MD, RES Date of Service: 09/30/23 [facility] echo transthoracic: NSTEMI Copies to: MD Maya [...] By: Barbara Rivas MD 09/30/23 1120 [facility] Discharge Instructionson Discharge Instructions [id number]#1.00TI FF Normal [facility] Main OR Intraoperative Recor don 09-25-2023 Main OR Intraoperative Record IntraOp Document Type FT Summary Primary Physician: Igor FARFAN, Hui Pineda Finalized Date/Time: 09/25/23 14:06:26 Pt. Name: BARRY GALDAMEZ/Sex: 1955 Male Med Rec #: [id number] Physician: Erwin VALADEZ DO Financial #: [id number] Pt. Type: O Room/Bed: [place] [address] Admit/Disch: 09/22/23 20:07:00 - 09/23/23 14:55:00 Institution: [...] Igor FARFAN, Hui Agosto RN, Corrina Tyler SQL DEVELOPER DBA, Aurora Cabrera Role Performed Surgeon - Primary Ground Equipment Mechanic - Primary SQL DEVELOPER DBA Time In 09/23/23 08:53:00 09/23/23 08:53:00 09/23/23 [...] and tissue Entry 1 Skin Integrity Intact, [place], Warm, and Skin Abnormality No Dry Outcomes Met? Yes Last Modified By: Triny TREVIZO, Corrina F 09/23/23 09:00:05 Post-Care Text: The patient is [...] Arm Po (more content not included)... Normal [facility] Progress Note-Physicianon Progress Note-Physician Patient: BARRY GALDAMEZ [...] Problems Weak urine stream / SNOMED CT 505411625 / Confirmed Screening PSA (prostate specific antigen) / SNOMED CT 507133670 / Confirmed Osteoarthritis / SNOMED CT 5650316828 / Confirmed Nocturia / SNOMED CT 288832705 / Confirmed Impingement syndrome of right shoulder / SNOMED CT 943121854 / Confirmed HTN (hypertension) / SNOMED CT 5610268114 / Confirmed Hypertension / SNOMED CT 9694848813 / Confirmed Erectile dysfunction / SNOMED CT 8327967374 / Confirmed Depression / SNOMED CT 22406273 / Confirmed Carpal tunnel syndrome of right wrist / SNOMED CT 48233305 / Confirmed Asymptomatic microscopic hematuria / SNOMED CT 5679898599 / Confirmed Asthma / SNOMED CT 235175284 / Confirmed Arthritis / SNOMED CT 4409713 / Confirmed Hip pain, left / SNOMED CT 2855495507 / Confirmed DJD Resolved: At risk for falls / SNOMED CT 407596414 Problem added when Risk for Falls Careplan was initiated. Resolved due to patient discharge. Histories Procedure history: Left L4/5 Transforaminal Epidural Steroid Injections ([id number]) on 06/25/2023 at 67 Years. Comments: 07/31/2023 10:10 Brianna Echeverria 10% relief L5/S1 TASHA (9483152848) on 05/19/2023 at 67 Years. Comments: 06/05/2023 11:07 Theodora Oh RN L5/S1 TASHA 70% relief L5-S1 TASHA (6060258367) on 12/10/2022 at 67 Years. Comments: 01/09/2023 13:14 Adry Saab RN L5-S1 TASHA-100% relief Arthroscopy of shoulder (015775174) on 04/13/2018 at 62 Years. Comments: 04/13/2018 14:52 JAMA Rust RN, Marti right .distal claviculectomy .extensive debridement ,subacromial decompression. Carpal tunnel release (844720296) on 04/13/2018 at 62 Years. Comments: 04/13/2018 14:52 Marti Trinidad RN right Hip arthroplasty (742444616) on 09/29/2017 at 62 Years. Comments: 09/29/2017 14:17 Imelda Palencia RN left Left hip arthrogram on 12/03/2016 at 61 Years. Appendectomy; (06799). Colonoscopy (836889271). Tooth extraction, complete mouth (44338301). Stent (440616015). Comments: 09/04/2022 14:42 JAIME Mendieta RN, Jennifer [...] adequate air exchange. Cardiovascular: Regular rhythm. Plan [place] [employer] Anesthesiologists (ASA) physical status classification: Class III. Anesthetic Preoperative Plan: Anesthesia General. Normal [facility] Comment on above: Result Comment: Elec tronically [...] when meets criteria ( To home ). [facility] Comment on above: Result Comment: Elec tronically Signed By: Colin Childs DO, Chad Snyder\.br\Date and Time Signed: 09/25/23 13:53 EST [place]enton 09-24-2023 Consent [id number]#1.00TI FF [facility] Facesheeton 09-24-2023 Facesheet [id number] [id number]#1.00TI FF [facility] Outside Recordson 09-24-2023 Outside Records [id number]#1.00OTG TIFF [facility] Outside Records [id number] FF [facility] Transfer Documentson 024 Transfer Documents [id number]#1.00TI FF [facility] BMPon 09-23-2023 Anion gap [Moles/Vol] 9 mmol/L Normal 6-16 [facility] Comment on above: Performed By: #### 2 [id number], [id number], [id number], [id number] ####[facility] [address] [place] [address] Calcium [Mass/Vol] 9.0 mg/dL Normal 8.9-11.1 [facility] Comment on above: Performed By: #### 2 [id number], [id number], [id number], [id number] ####[facility] [address] [place] [address] Chloride [Moles/Vol] 104 mmol/L Normal 101-111 [facility] Comment on above: Performed By: #### 2 526086, [id number], [id number], [id number] ####[facility] [address] [place] [address] CO2 [Moles/Vol] 31 mmol/L Normal 21-31 [facility] Comment on above: Performed By: #### 2 [id number], [id number], [id number], [id number] ####[facility] [address] [place] [address] Creatinine [Mass/Vol] 0.8 mg/dL Normal 0.5-1.3 [facility] Comment on above: Performed By: #### 2 525767, 23333451, 14195661, 0143290 ####[facility] [address] [place] [address] Glucose [Mass/Vol] 96 mg/dL Normal 55-199 [facility] Comment on above: Performed By: #### 2 345523, 67449244, 53076429, 0290453 ####[facility] [address] [place] [address] Potassium [Moles/Vol] 4.4 mmol/L Normal 3.5-5.3 [facility] Comment on above: Performed By: #### 2 538364, 75590026, 06484923, 8386688 ####[facility] [address] [place] [address] Sodium [Moles/Vol] 140 mmol/L Normal 135-145 [facility] Comment on above: Performed By: #### 2 241143, 80375043, 28327673, 5893558 ####[facility] [address] [place] [address] Urea nitrogen [Mass/Vol] 21 mg/dL Normal 5-21 [facility] Comment on above: Performed By: #### 2 054466, 31668384, 43810203, 8886796 ####[facility] [address] [place] [address] Urea nitrogen/Creatinine [Mass ratio] 26 No Units High 10-20 [facility] Comment on above: Performed By: #### 2 474446, 18838639, 87585289, 2358105 ####[address] [address] CBC w/ Auto Diffon 4 Basophils/100 WBC (Bld) 0.5 % Normal 0.0-2.0 [facility] Comment on above: Performed By: #### 2 224584, 18303691, 93879157, 1024835 ####[address] [address] Basophils/Leukocytes Auto (Bld) [Pure # fraction] 0.1 E9/L Normal 0.0-0.2 [facility] Comment on above: Performed By: #### 2 851175, 41446068, 99033637, 3632111 ####[address] [address] Eosinophils (Bld) [#/Vol] 0.2 E9/L Normal 0.0-0.5 [facility] Comment on above: Performed By: #### 2 473379, 05218104, 98779881, 9607607 ####[address] [address] Eosinophils/100 WBC (Bld) 1.6 % Normal 0.0-8.0 [facility] Comment on above: Performed By: #### 2 148454, 38505068, 93962736, 7529068 ####[address] [address] Erythrocyte distribution width (RBC) [Ratio] 14.2 % Normal 10.9-14.2 [facility] Comment on above: Performed By: #### 2 563430, 16685408, 84994128, 2572937 ####[address] [address] Hematocrit (Bld) [Volume fraction] 34.4 % Low 37.7-49.0 [facility] Comment on above: Performed By: #### 2 979939, 35096034, 62752009, 2697235 ####[facility] [address] [place] [address] Hemoglobin (Bld) [Mass/Vol] 11.3 g/dL Low 13.5-17.5 [facility] Comment on above: Performed By: #### 2 159358, 58238845, 55669153, 1200126 ####[address] [address] Lymphocytes (Bld) [#/Vol] 3.1 E9/L Normal 1.0-4.0 [facility] Comment on above: Performed By: #### 2 190205, 37184061, 76453328, 8289106 ####[address] [address] Lymphocytes/100 WBC (Bld) 26.5 % Normal 14.0-50.0 [facility] Comment on above: Performed By: #### 2 985104, 70015425, 26241619, 8663664 ####[address] [address] MCH (RBC) [Entitic mass] 26.3 pg Low 27.0-34.0 [facility] Comment on above: Performed By: #### 2 234918, 82929472, 22634944, 6855620 ####[address] [address] MCHC (RBC) [Mass/Vol] 32.9 g/dL Normal 31.4-36.0 [facility] Comment on above: Performed By: #### 2 533890, 64885839, 57893816, 2021593 ####[address] [address] MCV (RBC) [Entitic vol] 80.1 fL Normal 80.0-100.0 [facility] Comment on above: Performed By: #### 2 195283, 43901787, 05327931, 3977586 ####[facility] [address] [place] [address] Monocytes (Bld) [#/Vol] 0.8 E9/L Normal 0.2-1.0 [facility] Comment on above: Performed By: #### 2 549741, 09906568, 55549495, 3189352 ####[address] [address] Neutrophils (Bld) [#/Vol] 7.7 E9/L High 2.0-7.5 [facility] Comment on above: Performed By: #### 2 464764, 32368334, 26039100, 5879162 ####[address] [address] Neutrophils/100 WBC (Bld) 64.5 % Normal 36.0-75.0 [facility] Comment on above: Performed By: #### 2 860767, 42801505, 87087944, 6097251 ####[address] [address] Platelet mean volume (Bld) [Entitic vol] 7.2 fL Normal 6.4-10.8 [facility] Comment on above: Performed By: #### 2 582864, 65059190, 39555187, 7861161 ####[address] [address] Platelets (Bld) [#/Vol] 240.0 E9/L Normal 150. 0-500. 0 [facility] Comment on above: Performed By: #### 2 283014, 01024956, 47776668, 2737163 ####[address] [address] RBC (Bld) [#/Vol] 4.3 E12/L Normal 4.3-5.9 [facility] Comment on above: Performed By: #### 2 212089, 59151420, 97892953, 6670881 ####[address] [address] WBC corrected for nucl RBC Auto (Bld) [#/Vol] 11.9 E9/L High 4.0-11.0 [facility] Comment on above: Performed By: #### 2 913649, 30956387, 96280239, 4042167 ####[facility] [address] [place] [address] Consultation Noteon 09-23-19 Consultation Note Patient: MANPREET [...] day(s), # 135 tab(s), Refills(s) 1, Pharmacy: [facility][id number], 183, cm, 07/31/23 10:16:00 EST, Height/Length [...] and Plan EGD: Diagnosis: Esophageal foreign body ([id number] T18.108A, Discharge, Medical). Course: Progressing as expected. Education and Follow-up: Counseled. Notes: Obtain H. pylori stool antigen Start PPI once daily Repeat EGD after 3 months to obtain esophageal and stomach biopsies. Normal [facility] Comment on above: Result Comment: erro r Electronically Signed By: Hui Costa MD\.br\Date and Time Signed: 09/23/23 09:09 EST EGDon 09-23-2023 Esophagogastroduodenosc opy Patient: BARRY GALDAMEZ Age: 68 years Sex: Male : 1955 Associated Diagnoses: None Author: Hui Costa MD History of Present Illness Gastroenterology Consult 11-pcgf-zib-year-old male with past medical history of coronary disease on Plavix Admitted with food bolus impaction Was eating chicken and ate through the pollen around 3 PM yesterday Presented to [facility] and evaluated with CAT scan which [...] day(s), # 135 tab(s), Refills(s) 1, Pharmacy: [facility]/pharmacy #[id number], 183, cm, 07/31/23 10:16:00 EST, Height/Length [...] Mother Arthritis Mother Procedure history: Esophagogastroduodenosco py ([id number]) on 09/23/2023 at 68 Years. Left L4/5 Transforaminal Epidural Steroid Injections ([id number]) on 06/25/2023 at 67 Years. Comments: 07/31/2023 10:10 Brianna Echeverria 10% relief L5/S1 TASHA ([id number]) on 05/19/2023 at 67 Years. Comments: 06/05/2023 11:07 Theodora Oh RN L5/S1 TASHA 70% relief L5-S1 TASHA ([id number]) on 12/10/2022 at 67 Years. Comments: 01/09/2023 13:14 JAMA Troy RN, Adry Aguirre L5-S1 TASHA-100% relief Arthroscopy of shoulder ([id number]) on 04/13/2018 at 62 Years. Comments: 04/13/2018 14:52 JAMA Rust RN, Marti right .distal claviculectomy .extensive debridement ,subacromial decompression. Carpal tunnel release ([id number]) on 04/13/2018 at 62 Years. Comments: 04/13/2018 14:52 Marti Trinidad RN right Hip arthroplasty ([id number]) on 09/29/2017 at 62 Years. Comments: 09/29/2017 14:17 Imelda Palencia RN left Left hip arthrogram on 12/03/2016 at 61 Years. Appendectomy; (28930). Colonoscopy ([id number]). Tooth extraction, complete mouth (96967446). Stent ([id number]). Comments: 09/04/2022 14:42 JAIME Mendieta RN, Jennifer Eckert cardiac Social History Social & Psychosocia (more content not included)... Normal [facility] Esophagogastroduodenosc opy Patient: BARRY GALDAMEZ Age: 68 [...] day(s), # 135 tab(s), Refills(s) 1, Pharmacy: [facility]/pharmacy #[id number], 183, cm, 07/31/23 10:16:00 EST, Height/Length [...] and Plan EGD: Diagnosis: Esophageal foreign body ([id number] T18.108A, Discharge, Medical). Course: Progressing as expected. [...] September 23, 2023 9:09 EST Encounter info: [id number], [facility] [place], Observation, 09/22/2023 - Normal [facility] Comment on above: Result Comment: erro r [...] day(s), # 135 tab(s), Refills(s) 1, Pharmacy: [facility] #[id number], 183, cm, 07/31/23 10:16:00 EST, Height/Length [...] and Plan EGD: Diagnosis: Esophageal foreign body ([id number] T18.108A, Discharge, Medical). Course: Progressing as expected. Education and Follow-up: Counseled. Notes: Obtain H. pylori stool antigen Start PPI once daily Repeat EGD after 3 months to obtain esophageal and stomach biopsies. Normal [facility] Inpatient Clinical Summaryon 09-23-2023 Inpatient Clinical Summary [place] [id number] Clinical Summary Person Information: Name: BARRY GALDAMEZ Age: 68 Years : 1955 Sex: Male PCP: JOE MADDOX DO Marital Status: Phone: [phone] Race: White Ethnicity: Non- or Language: Comoran Visit Id: Visit Reason: ESOPHAGEAL FOOD BOLUS Speciality: Acuity: Enc Type: Observation Med Service: Medical Arrival: 09/22/2023 20:07:00 Discharge: Dispo Type: Address: [facility] 07/21 [facility] [id number] Provider Notes: Diagnosis: 1:Esophageal foreign body; 2:Coronary [...] up: With: Address: When: JOE MADDOX DO [address] [address] 09/29/2023 3:30 PM With: Address: When: Igor FARFAN, Hui Pineda [facility], [address], [address] [place] [address] [phone] 11/30/2023 9:00 AM Comments: Will need EGD in 3 months, Plavix must be held prior to endoscopy x 5 [address] Biswas at this appoinment. Type Location Start Finish State Pain Management - Follow Up (FT) [facility] [place] 10/01/2023 2:15 PM 10/01/2023 2:25 PM Confirmed [facility] New Patient [facility] 11/30/2023 9:00 AM 11/30/2023 9:30 AM Confirmed Patient Education Information: Hiatal Hernia; Duodenitis; Upper Endoscopy, Adult, Care After; Swallowed Foreign Body, Adult Protonix Normal [facility] Inpatient Patient Summaryon 09-23-2023 Inpatient Patient Summary [address] [address] Patient Discharge Instructions PERSON INFORMATION Name: BARRY [...] up: With: Address: [place] [address] [place] [address] 09/29/2023 3:30 PM With: Address: When: Igor FARFAN, JEFF Contreras, MED [address], [address] [place] [address] [phone] 11/30/2023 9:00 AM Comments: Will need EGD [...] Management - Follow Up (FT) [facility] [place] 10/01/2023 2:15 PM 10/01/2023 2:25 PM Confirmed [facility] New Patient [facility] 11/30/2023 9:00 AM 11/30/2023 9:30 AM Confirmed Comment: DENICE Pimentel WAYNE M, have received the attached patient education materials/instructions and have verbalized understanding: Patient Signature Date Clinican/Nurse Signature Date HERE ARE THE MEDICATION CHANGES THAT OCCURRED DURING YOUR HOSPITAL STAY New Medications [id number], [address], [place] [id number], [phone] pantoprazole (Protonix 40 mg Tab-DR) 1 Tablets [...] every 12 emily (more content not included)... [facility] Insurance Correspondenceon 0 09-23-2023 Insurance Correspondence [id number]#1.00TIF F [facility] Insurance Correspondence Off iceon 09-23-2023 Insurance Correspondence Office [id number]#1.00TI FF [facility] Interdisciplinary Note - Huey e Manageron 09-23-2023 Interdisciplinary Note - Program Scheduler Pt is awake and alert in bed, previously rounded with Ariana. Pt is aware of plan to DC home later today. Pt is from home with and she will transport at DC. Observation status reviewed, PCP verified and insurance information reviewed will transport at DC, decline any concerns or DC needs. Plan to DC home today. [facility] Comment on above: Result Comment: Elec tronically Signed By: Cherelle TREVIZO, Callie\.br\Date and Time Signed: 09/23/23 10:51 EST Main OR PACU I Recordon Main OR PACU I Record PACU Phase I Docum ent Type FT Summary Primary Physician: Igor FARFAN, Hui Pineda Finalized Date/Time: 09/23/23 10:12:11 Pt. Name: BARRY GALDAMEZ/Sex: 1955 Male Med Rec #: [id number] Physician: Erwin VALADEZ DO Financial #: [id number] Pt. Type: O Room/Bed: N318/ Admit/Disch: 09/22/23 20:07:00 - Institution: Case Times [...] By: Niharika Solorzano RN 09/23/23 10:12 Normal [facility] Main OR Preoperative Recordo n 09-23-2023 Main OR Preoperative Record Holding Area Document Type FT Summary Primary Physician: Hui Costa MD Finalized Date/Time: 09/23/23 08:39:45 Pt. Name: BARRY GALDAMEZ/Sex: 1955 Male Med Rec #: [id number] Physician: Erwin VALADEZ DO Financial #: [id number] Pt. Type: O Room/Bed: N318/ Admit/Disch: 09/22/23 20:07:00 - Institution: Case Times [...] Signed By: Mirta Gutiérrez RN 09/23/23 08:39 [facility] Message from Medicareon 03-0 Message from Medicare [id number]#1.00TIF F [facility] Monitor Recordon 09-23-2023 Monitor Record [id number]#1.00TI FF [facility] Monitor Record [id number]#1.00TI FF [facility] Patient Education - Texton 0 09-23-2023 [...] after the procedure. General instructions ? Take vhol-xni-jykugqi and prescription medicines only as told by [...] the symptoms (more content not included)... Normal [facility] TSH With T4fr Reflexon 09-22 TSH Qn 3.13 m[IU]/L Normal 0.34-5.60 [facility] Comment on above: Performed By: #### 2 147270, 31703507, 07788713, 8776014 ####[facility] [address] [place] [address] eGFRon 09-23-2023 eGFR 96 mL/min/1.73 m2 Normal >=59 [facility] Comment on above: Order Comment: Order added by Discern Expert. Performed By: #### 2 903157, 84770049, 05690976, 9825263 ####[facility] [address] [place] [address] Outside Recordson 08-03-2023 Outside Records [id number]#1.00OTG TIFF [facility] Consent for Treatmenton 07-20 Consent for Treatment [id number]#1.00TI FF Normal [facility] Consultation Noteon 07-31-19 24 Consultation Note Patient: [...] day(s), # 135 tab(s), Refills(s) 1, Pharmacy: [facility] #[id number], 183, cm, 07/31/23 10:16:00 EST, Height/Length [...] All Problems HTN (hypertension) / SNOMED CT 6093073394 / Confirmed Hip pain, left / SNOMED CT 9396916721 / Confirmed DJD Nocturia / SNOMED CT 454119561 / Confirmed Asthma / SNOMED CT 783145372 / Confirmed Impingement syndrome of right shoulder / SNOMED CT 641520634 / Confirmed Carpal tunnel syndrome of right wrist / SNOMED CT 97353060 / Confirmed Osteoarthritis / SNOMED CT 0132349267 / Confirmed Arthritis / SNOMED CT 9843939 / Confirmed Depression / SNOMED CT 70458369 / Confirmed Hypertension / SNOMED CT 2958864296 / Confirmed Erectile dysfunction / SNOMED CT 3489791158 / Confirmed Asymptomatic microscopic hematuria / SNOMED CT 6975730046 / Confirmed Weak urine stream / SNOMED CT 227870292 / Confirmed Screening PSA (prostate specific antigen) / SNOMED CT 993866877 / Confirmed Resolved: At risk for falls / SNOMED CT 918440200 Problem added when Risk for Falls Careplan [...] hip flexion 5 -/5 Integumentary: Warm, Dry, [place]. Injection site well-healed Neurologic: Alert, Oriented. Psychiatric: [...] we discussed gabapen (more content not included)... [facility] Comment on above: Result Comment: Elec tronically Signed By: Ariana Urena PA-C\.br\Date and Time Signed: 07/31/23 10:27 EST Legal Correspondence Officeo n 07-31-2023 Legal Correspondence Office [id number]#1.00TIF F [facility] Office/Clinic Note-Physician on 07-31-2023 Office/Clinic Note-Physician [id number]#1.00TIF F [facility] Patient Correspondenceon Patient Correspondence [id number]#1.00TIF F [facility] Patient Correspondence [id number]#1.00TIF F [facility] Patient Correspondence [id number]#1.00TIF F [facility] Patient Correspondence [id number]#1.00TIF F [facility] Patient History Officeon Patient History Office [id number]#1.00TIF F [facility] Reminder Messageson 07-31-19 24 Reminder Messages - From: JOE MADDOX DO To: [facility] Clinical Pool ([facility]); Sent: 07/27/2023 12:31:28 EST ! Show up: 07/27/2023 12:31:28 EST Subject: Results Follow Up Actions: Call the patient with result(s) Due Date/Time: 07/28/2023 12:30:00 EST Reminder Comments: looks okay. no abnormal rhythms Results: Date Result Type Result Name 07/27/2023 11:35 Radiology CV Holter Monitor 48 Hour From: Katelin Shultz ([facility] Clinical [place] ([facility])) To: JOE MADDOX DO; Sent: [...] thank you From: JOE MADDOX DO To: [facility] Clinical [place] ([facility]); Sent: 07/28/2023 07:42:25 EST Show up: 07/28/2023 07:42:00 EST Subject: RE: Results Follow Up time for a cardiology referral LVM notifying patient, referral made Normal [facility] Coding Summaryon 07-28-2023 Coding Summary HTMLBase 64 GufnpjqmXCa6oEn+PGhlYWQ+ AM3OPVNoK96ioGGnzL7zQ9UD TElOSywgQVBQTElOSyIgbmFt FE7asPZmAKNi IC8+HE4vNITaQtlouVDin6Z0 iGO9V22hey0iEUtfxYC7YRMh OqHybvqij5cgxDj1OSxmGgdf OyBt YSBhvS38DMR9tA30Sb34mLSc cEWis4wttYy1VnSbNGIaUHZ1 wYvfJBnor3IjCTVoP39qcHOb c2U6 WCUsvLhvlDVrIfOmdIF3iN0a MMyxgjpez5pxmjkfUxt7cf20 tQPlq4V8rRX4M3UqzyX7RQGh bGQg EkokaCWOvY2wgimns5xalktn UjTbJQQfCVi4TPk4RFEbfSlj BrEtXL07CHN2ZONwfxClT1Fq LWFs tBndVuJ5b2J1Iy8GC9XXBluf Y2NOWTAEYUtdjXW+QJ48ua60 K8XyVfriMnv0JOLrETS6iTX6 aD0n TOAsGWcqt8Z6pQZ2X0JnycWr pz5tg8zwMSHyCVptM52siGLr e9A8RRQsdBN0MSJkpDmyIhBf aG93 Oyc+LYKovTmsn9HrIvrhk7bd o6eurXz8OlalWIPjioVvrUkf XWX4z1WpGe2hHMJvaAR4pLM9 aD0i CxUcElZ7QOasF763PtPhcRBq BjqmK67gP2AfzVU+PHRyPjx0 DKTbgLpfOP8gM9LsAHRcwoil bGVm nYwqTJ8dPBLlhjhjYAHosK7t FVAtT1z2ZlWhMvM7JItlY7Bs HLInmuugEm83xR0mLrSqMyT1 MGlu A1JpwdE2GGMmqEEvFGlsPZK9 N66la6V8RAOfUUFqYAJ3fBC0 zX7fmNfqlyvtiOFxzDcowfJk dGlj JPamYZgzZ481AOQxuLkbWmFq ZGluZyBEYXRlOiAgMDEvMDkv MjAyNDwvdGQ+GGUbCGO3yRfv PSAn tMOqUJwrYd1fwKaygZbgCT2w SASyphxwCQDxsI5jDIGyiTJw wSrnOM3oRBLxmrwxh392ZeUj MHB0 YIGxdLFqM7UzoJ8pCgTnPVUw DNDfS9MzaTSpFIahG182QMwe XiM1VYOqsjYkR8EaPGHpvImw OiB0 r2A1Xb2Zi2NugcawA9QhlPXf HqHjUgviDTw2O2NiYacyiTB+ GD44NOItTK45ODu1TFK3sRcx PSdi GOFoO5QwtE3xPeOiLSRwUBDr Oyc+PHRhYmxlIHdpZHRoPScx YEGvStAnbIsnED3vSe7dBHSz LWNv tUxbrWNiYsGxd8crSFImKIsf PK3hpSrjA7AjbIM1YHUeb2m9 Tw39L62bV9BffTW+PGNvbCB3 aWR0 iM9tXpZsBgC5MRtjH632NcOy hINwFconw1oup9xatPy4CcJ7 MKCnpyNajMnrMXM4e4GiNw37 Y29s IHdpZHRoPSIxNSUiIHZhbGln ea1pjZ3xCt6+ZFHojIH7aCD9 lN1uQkDyYkY0BLutV987YbMe cCIv Agwkp0mxq8nlkRu0KsRoSHVw wmJyyPqnQSB8y7OdHa11D7Gv kAwtp6OzOwu7nh40qPSdx5F9 bGU9 R2HzFZPmihgdeUWudCyiTR5k OWIbobzdINOwzO0sOHDgA4p5 AhOzJzB3THthZ0JrdiR3UNPq bGQg GFUxbZNSpM1zpsktd4oiteul GxEsOYYjYQs0YUa1FOVhcGpr WjCsICP1KvG3EZF8bBYlyI3e bGln utxnoW0eLcj+ZCM9mUZhzJFX GC0hIetktUP+LPIhACR9hOkg TWupZGFroT4uLOFhN0c7LpAc LjA1 IWzuH9PkawG2WGEsbERjBVBr wQYCvG5wcuhuu6iakxzzWhLt VFBaINx4YSk6QSXbgZmfXaTd ZWZ0 LmA9BFW0tYFveT2obDppodue pT6xIom+KkdrgXenWLL9EJi4 J8QcNlr2LQQzuNwqHW7afMVp ZGlu Hn1utGfriBajOH6lCGWbrvga w565ViIvn2fbUQFnqPLoRZoe HAD5P20oz7M5HETvABCxRVH8 dGV4 gF7zoPxlbievyURqsKjiqgLy nAzfYKklNSgwJ935QTImrFcs HuGoBUg1R9IjAks0AZFgxFeb ZT0n xAExGNhmTo7nxDqpaYahUK4h AGSkhfyvr145NmFms5tlMRIy iNPaBQmvYYJ1X56yw4T2PYBd MDAw PIW2uPP3hS0sbIplvguybRNo cYofxfAgdMraJEcxFQnaM056 UIVheWuoKmGrwQm2B5FxDou0 ZCBz fNduMV5grSShHHjtWc4krPzc wMklAG3dULUgdijvc702LvSd e6yrNWPufTGpAHuaZFD1D64z b3I6 PXKvEKSwZMT8iWT9fR0ohUgn bjogbGVmdDsgdmVydGljYWwt ZDnbE385RKZjjNvpAzKvtPin bnQg LDbjFSg8L3PpJnreuGV+PC90 JGHfLK62pEFeqCWsi9ddgDi8 HnJaNHGpRJO7lGtwBKrti3Yj ZXIt A81pzDMtx5K8EHQehNirgUUm VySkiZR8wH5zCAkjwffwm3go vxygOrzlp8kdvx12kM66G05u IHdp PYGxCNAmZNRtRKRkuHcdaq3o cM9pLq8+DGDdoQK5yDU2iA8g JKLiDcP5GBweG198WcVysRYx Pjxj g3fgh7jgnXc6AjP6DSCoioFj cEzxRVM8d8LqIl57L41pOHnz HZSyOECnXOVqXGNmxZpqhn9o dG9w Ii8+QONhpDC3rWD7jU9eJmMd DcN4GMqsI843IfNzlOWyAwda K51dH8MmwIX+CTEjDaf6SPGr dHls LM2mfJDgADsvCk4yLSH3OfTz RvKqOZwrL4PzFYKsknxdrfgo bTU4LVOeLMSneW09Zr0syTcr MTBw lVOTuG2owgxns1nvgozbAgAo ENHcINd1MCu6HUQriZexViOj UCG0ZaC1PRM8nAXjbK6bfPpy bjog xN9wA3PsKUHtpqovCj50jJ6g LhNjJgT7XBdfYcg+L2WBPcIX PXHBLZdBHUDZBO57TA86gLHe c3R5 pIW2B1PeEVPyongaaydlbIA3 VVAdMLZpqL60rTHtBLntTz6j v5V7p483KZQbAJRlzX95Yu6r dDog SJFqfVZMlS8jjlurs2hmqwnl JtIdCDBxOVq9RYi9FXRevEcu JnHbVBJ6PyI6FTT3vTKoeZ0w bGln kueqrE0cBcm+MDEvMzEvMTk1 NjwvdGQ+BIVwQXR8uSimAJdh GLCgrG1xBYRgY2f2JaXsFkD2 MGlu W7CsDXZzsvxvWt19zL1vCoUd EiE0QOxgA6KbysB0EFAmlHVs QCxhOKR1V08ma1X4RZOaDANp MDA7 xRI6aY1zaPcpoelfsNCfgMns ucYpaSayRIdvVQetE216KUXh kDsuXfO4HCuuMGAjBK22UO67 dGQg n0S3jZG1P5TvWGHlpfdiilfy pED5DLPgLCOrgD91uPEuYEza Dx4eh4B3h900VBQtQJKflY08 Zm9u tWzdFMKjdAFPkF2uthnnk0or pwnjGmZwGLOpNUk7FMa3WBEv bXtyXkBoVAK5WwG0VIO1oXAx bC1h lRjxejnufN1dEuy+TUFMRTwv dGQ+KHSmBTW5bTvcXAdhJMYj oI5hQIEwZ4i3ZjSeCwT7YXzr O3Bh DZCzomvuUa55fO4qHqQbUuX8 GXxbW4DileY6SNNdvTHhJJeh PHB8I94kp0V6NMQvPELhGNB4 dGV4 lV9xkCmvmtffpXIxkNhvctHm iSswZHlyWEigW481PAKpdJfx Iq33aYCgeArtbbLmzL7uMDOS ZWQ8 Q3ToZncizNE+AJ19QMQdMW15 eKJktTIwy9zkqCq4HyLaFPOk VUN9fSpdHAwey3AyBCNsV02o bGFw b0C0RBKhkPcwkSFdDdWkeXF2 cR5bOBtiifbwc2khdksgGwxw y8fvtf05nY07G48zNHbbTTCo PSIz PHFfZLMvuWflvw9piH1lQx5+ HVZplEB8nXF0eR4uXvNuZzQ5 SBdpL706UmBjdAGdQrwdq9so d2lk sMf5WzErNHSynpTtnPprKZB9 v3EkHk06W21vTIjeDVAoSWYr VLUmRIYszVipmo6izG5lCi0+ PC9j w6jnbe06iS71vEH+PHRkIHN0 qUvlHZfmQDAdmI9nHXdqDrH5 CRZdYbPuqK69tPEwWLcwCm7x aWdo kEgrPI5mVBLkkkvti857NeBz k4qqAOOpyXWnDXikGYC6P33n w0U6OTJlLLQkGUH2xOE0uV6a bGln bjogbGVmdDsgdmVydGljYWwt ZQwkI854VYComBwsJvThcXRd W8judbYVKQ5cTsohhUF+PHRk IHN0 wWzlBSwoBJYehG5aCEBjM8j2 PsZeBgS7HAffV2KyaoM3LFXc pAQaAPKzaMHChV7khgygv1uc cjog PzOkNOPqMOr3QFg8YODcgAjv PdDmIJK7EbS0BEE5tDSdhL8g mHzozhlerI6tNdv+RklOOjwv dGQ+ OWGaIZU7mSlcWKynFPWisB5d WWDpZ9u3LjIaNmP5HJnkB7Di euG6GIPyiZRpTPTvdJJZbX2r cztj y7rygjtaNhVhXITyHZz1QXr9 UEMwaIeyGkGlDXQ6CqE3INW5 oEZcoL1quHfkxgsjgS7pXao+ TVJO OjwvdGQ+CKVtITA2vGdqVInn OHQrqT0uHEGuE7u0FfJmZwZ8 YLhkA0ZfpjX2BLPzkMRdKXXy dCBU cX8zfbqst9yddetpHbWxUGQl ZIn1BJo6OJKtlQcfMeXtNAN3 BwR9RUT8hWPikU2pyVtcznqa dG9w Oyc+OCS3THD9PP01PX43J2Qj PjwvdGFibGU+PHRhYmxlIHdp CYVvVPhzGVUkNgSgsWpoXB4x Ym9y ZGV (more content not included)... Normal [facility] Holter Monitoron 07-28-2023 Holter Monitor [id number] [id number]#1.00OTG TIFF Normal [facility] CV Holter Monitor 48 Houron 07-21-2023 CV [...] patient's symptoms. Timothy Burnett DO JOB #: [id number] bk Final Dictated by: Timothy Burnett DO Dictated DT/TM: 07/27/23 9:22 Signed (Electronic Signature): Timothy Burnett DO 07/27/23 11:35 a Technologist: LUIGI [facility] Outside Recordson 06-29-2023 Outside Records [id number] 2010 [id number]#1.00O TGTIFF [facility] Consent for Procedure/Surger yon 06-25-2023 Consent for Procedure/Surgery [id number]#1.00TIF F [facility] Consent for Treatmenton Consent for Treatment [id number]#1.00TI FF [facility] Discharge Instructionson Discharge Instructions [id number]#1.00TIF F [facility] IntraOperative Documentson 1 08-26-2022 IntraOperative Documents [id number]#1.00TIF F [facility] Main OR Intraoperative Recor don 06-25-2023 Main OR Intraoperative Record IntraOp Document Type FTPM Summary Primary Physician: Neymar Willingham MD Finalized Date/Time: 06/25/23 13:41:33 Pt. Name: BARRY GALDAMEZ/Sex: 1955 Male Med Rec #: [id number] Physician: Neymar Willingham MD Financial #: [id number] Pt. Type: P Room/Bed: / Admit/Disch: 06/25/23 [...] RN, Nancy Role Performed Surgeon - Primary Ground Equipment Mechanic - Primary Scrub - Primary Time In 06/25/23 13:37:00 06/25/23 13:37:00 06/25/23 13:37:00 Time Out 06/25/23 13:42:00 06/25/23 13:42:00 06/25/23 13:42:00 Procedure TRANSFORAMINAL EPIDURAL TRANSFORAMINAL EPIDURAL TRANSFORAMINAL EPIDURAL STEROID INJECTIO(Left) STEROID INJECTIO(Left) STEROID INJECTIO(Left) Comments Last Modified By: Woodrow TREVIZO, Adry Troy RN, Adry Lawrence RN 06/25/23 13:41:29 06/25/23 13:41:29 06/25/23 13:41:29 Entry 4 Case Attendee Kimmy Chaney Role Performed Tax Lawyer Time In 06/25/23 13:37:00 Time Out 06/25/23 [...] and tissue Entry 1 Skin Integrity Intact, [place], Warm, and Skin Abnormality No Dry Outcomes [...] Checked Yes By Woodrow TREVIZO, Adry Brown Wi (more content not included)... Normal [facility] Main OR Preoperative Recordo n 06-25-2023 Main OR Preoperative Record Holding Area Document Type FTPM Summary Primary Physician: Neymar Willingham MD Finalized Date/Time: 06/25/23 13:18:07 Pt. Name: MARIELAAlessandroBARRY D.O.B./Sex: 1955 Male Med Rec #: [id number] Physician: Neymar Willingham MD Financial #: [id number] Pt. Type: Room/Bed: / Admit/Disch: 06/25/23 12:30:18 - Institution: [...] Jennifer Mendieta RN 06/25/23 13:18 Normal [facility] Operative Reporton Operative Report Patient: MANPREET GALDAMEZ [...] 13:09 EST Respiratory Rate 14 br/min . [facility] Comment on above: Result Comment: Elec tronically Signed By: Tarsha FARFAN, Neymar Zelaya\.br\Date and Time Signed: 06/25/23 13:41 EST Patient Correspondenceon Patient Correspondence [id number]#1.00TIF F [facility] Insurance Correspondence Off iceon 06-10-2023 Insurance Correspondence Office [id number]#1.00TIF F [facility] Office/Clinic Note-Physician on 06-08-2023 Office/Clinic Note-Physician [id number]#1.00TI FF [facility] Consent for Treatmenton 05-20 Consent for Treatment [id number]#1.00TI FF [facility] Consultation Noteon 06-05-20 Consultation Note Patient: [...] All Problems HTN (hypertension) / SNOMED CT 1298607159 / Confirmed Hip pain, left / SNOMED CT 8723291861 / Confirmed DJD Nocturia / SNOMED CT 252066362 / Confirmed Asthma / SNOMED CT 824070774 / Confirmed Impingement syndrome of right shoulder / SNOMED CT 180643820 / Confirmed Carpal tunnel syndrome of right wrist / SNOMED CT 69718155 / Confirmed Osteoarthritis / SNOMED CT 8823500871 / Confirmed Arthritis / SNOMED CT 7543498 / Confirmed Depression / SNOMED CT 98698146 / Confirmed Hypertension / SNOMED CT 7429293756 / Confirmed Erectile dysfunction / SNOMED CT 1446509246 / Confirmed Asymptomatic microscopic hematuria / SNOMED CT 9009411740 / Confirmed Weak urine stream / SNOMED CT 685368331 / Confirmed Screening PSA (prostate specific antigen) / SNOMED CT 121307054 / Confirmed Resolved: At risk for falls / SNOMED CT 826852686 Problem added when Risk for Falls Careplan [...] hip flexion 5 -/5 Integumentary: Warm, Dry, [place]. Injection site well-healed Neurologic: Alert, Oriented. Psychiatric: [...] necessary. OARRS reviewed ANABELL score: 38% Normal [facility] Comment on above: Result Comment: Elec tronically Signed By: Ariana Urena PA-C\.deborah\Date and Time Signed: 06/05/23 11:22 EST\.br\Electronically Co-Signed By: Tarsha FARFAN, Neymar Zelaya\.br\Date and Time Co-Signed: 06/08/23 12:01 EST Office/Clinic Note-Physician on 06-05-2023 Office/Clinic Note-Physician [id number]#1.00TIFF Normal [facility] Patient Correspondenceon Patient Correspondence [id number]#1.00TIFF Normal [facility] Patient Correspondence [id number]#1.00TIFF Normal [facility] Patient History Officeon Patient History Office [id number]#1.00TIFF [facility] Patient Handouton 05-27-2023 Patient Handout [id number]#1.00OT [facility] Outside Recordson 05-26-2023 Outside Records [id number]#1.00OT [facility] Patient Handouton 05-26-2023 Patient Handout [id number]#1.00OT [facility] Consent for Procedure/Surger yon 05-19-2023 Consent for Procedure/Surgery [id number]#1.00TI FF [facility] Consent for Treatmenton 04-21 Consent for Treatment [id number]#1.00TI FF [facility] Discharge Instructionson Discharge Instructions [id number]#1.00TI FF [facility] IntraOperative Documentson IntraOperative Documents [id number]#1.00TI FF Normal [facility] Main OR Intraoperative Recor don 05-19-2023 Main OR Intraoperative Record IntraOp Document Type FTPM Summary Primary Physician: Neymar Willingham MD Finalized Date/Time: 05/19/23 14:15:08 Pt. Name: BARRY GALDAMEZ Tomeka Bryant/Sex: 1955 Male Med Rec #: [id number] Physician: Neymar Willingham MD Financial #: [id number] Pt. Type: P Room/Bed: / Admit/Disch: 05/19/23 [...] Iwona Snyder Role Performed Surgeon - Primary Ground Equipment Mechanic - Primary Scrub - Primary Time In 05/19/23 14:09:00 05/19/23 14:09:00 05/19/23 14:09:00 Time Out 05/19/23 14:15:00 05/19/23 14:15:00 05/19/23 14:15:00 Procedure LUMBAR EPIDURAL STEROID LUMBAR EPIDURAL STEROID LUMBAR EPIDURAL STEROID INJECTION(.) INJECTION(.) INJECTION(.) Comments Last Modified By: Woodrow TREVIZO, Adry Troy RN, Adry Lawrence RN 05/19/23 14:14:30 05/19/23 14:14:30 05/19/23 14:14:30 Entry 4 Case Attendee Nakul Montes Role Performed Tax Lawyer Time In 05/19/23 14:09:00 Time Out 05/19/23 [...] and tissue Entry 1 Skin Integrity Intact, [place], Warm, and Skin Abnormality No Dry Outcomes [...] Troy RN (more content not included)... Normal [facility] Main OR Preoperative Recordo n 05-19-2023 Main OR Preoperative Record Holding Area Document Type FTPM Summary Primary Physician: Neymar Willingham MD Finalized Date/Time: 05/19/23 13:52:06 Pt. Name: BARRY GALDAMEZ Tomeka Madden/Sex: 1955 Male Med Rec #: [id number] Physician: Neymar Willingham MD Financial #: [id number] Pt. Type: P Room/Bed: / Admit/Disch: 05/19/23 [...] By: Jennifer Mendieta RN 05/19/23 13:52 Normal [facility] Operative Reporton 3 Operative Report Patient: MANPREET [...] 13:40 EDT Respiratory Rate 14 br/min . [facility] Comment on above: Result Comment: Elec tronically Signed By: Tarsha FARFAN, Neymar Zelaya\.br\Date and Time Signed: 05/19/23 14:14 EDT Patient Correspondenceon Patient Correspondence [id number]#1.00CD: 127 [facility] Insurance Correspondence Off iceon 04-13-2023 Insurance Correspondence Office [id number]#1.00CD: 127 [facility] Consent for Treatmenton 03-21 Consent for Treatment [id number]#1.00CD: 127 [facility] Consultation Noteon 04-08-20 Consultation Note Patient: [...] All Problems HTN (hypertension) / SNOMED CT 9015030348 / Confirmed Hip pain, left / SNOMED CT 2252753029 / Confirmed DJD Nocturia / SNOMED CT 466856148 / Confirmed Asthma / SNOMED CT 926916967 / Confirmed Impingement syndrome of right shoulder / SNOMED CT 895678781 / Confirmed Carpal tunnel syndrome of right wrist / SNOMED CT 20943930 / Confirmed Osteoarthritis / SNOMED CT 7669346927 / Confirmed Arthritis / SNOMED CT 8530373 / Confirmed Depression / SNOMED CT 06852973 / Confirmed Hypertension / SNOMED CT 9514587849 / Confirmed Erectile dysfunction / SNOMED CT 6426106855 / Confirmed Asymptomatic microscopic hematuria / SNOMED CT 3599209830 / Confirmed Weak urine stream / SNOMED CT 571849810 / Confirmed Screening PSA (prostate specific antigen) / SNOMED CT 173371160 / Confirmed Resolved: At risk for falls / SNOMED CT 451726206 Problem added when Risk for Falls Careplan [...] seated straight leg raise. Integumentary: Warm, Dry, [place]. Neurologic: Alert, Oriented. Psychiatric: Cooperative, Appropriate mood [...] sooner if necessary. ANABELL score: 60% Normal [facility] Comment on above: Result Comment: Elec tronically Signed By: rAiana Urena PA-C\.br\Date and Time Signed: 04/08/23 13:30 EDT\.br\Electronically Co-Signed By: García Castro DO\.br\Date and Time Co-Signed: 04/14/23 11:06 EDT Office/Clinic Note-Physician on 04-08-2023 Office/Clinic Note-Physician [id number]#1.00CD: 127 Normal [facility] Patient Correspondenceon Patient Correspondence [id number]#1.00CD: 127 [facility] Patient Correspondence [id number]#1.00CD: 127 Normal [facility] Patient History Officeon Patient History Office [id number]#1.00CD: 127 [facility] Office Visit (Cardiology)on 03-26-2023 Follow-up visit Diagnoses/Problems Assessed Coronary artery disease involving [place] coronary artery of [place] heart without angina pectoris (414.01) (I25.10) Hypertension, [...] Authorization; Done: 26Mar2023 Coronary artery disease involving [place] coronary artery of [place] heart without angina pectoris Start: Clopidogrel Bisulfate [...] In November 2021 he underwent non-ST elevation OK with primary revascularization of the LAD diagonal branch performed by Dr. Elieser Landers, utilizing a 2.5 x 34 mm Paco stent to the distal LAD, 2.75 x 18 mm Hugo stent in the mid LAD, and a [...] consumption pop 1 daily Former smoker (V15.82) (Z87.943) quit as a teen No alcohol use [...] Recorded: 26Mar2023 11:21AM Heart Rate64, R Radial Whzsltcw764, LUE, Sitting Dnhraonhp04, LUE, Sitting Height6 ft Tvvwyy738 lb BMI Tpygvitwnk97.99 kg/m2 BSA Calculated2.37 Tobacco Useb) No PHQ-2 #1. Over the last 2 weeks have you felt down, depressed or hopeless? (If yes, answer PHQ-9 below)No PHQ-2 #2. Over the last 2 weeks have you felt little intere (more content not included)... Normal [email or web address] Tobacco Screening.on 023 Adult depression screening assessment No [email or web address] y [address] DO Work Phone: Fall risk assessment a) No falls within the last year [facility] [address] DO Work Phone: Tobacco use status [facility]PH[facility] b) No [facility] [address] DO Work Phone: Office Visit (Cardiology)on 10-29-2022 Follow-up visit Diagnoses/Problems [...] and no PND. Vitals Vital Signs Recorded: [id number] 01:07PM Heart Rate66, R Radial Udysjoex741, RUE, Sitting Tppfmkxxz01, RUE, Sitting Height6 ft Qgpoad327 lb BMI Wewuygkraz08.72 kg/m2 BSA Calculated2.37 Tobacco Useb) No Falls [...] affect . (more content not included)... Normal [email or web address] Office Visit (Cardiology)on 09-18-2022 Follow-up visit Diagnoses/Problems Assessed Coronary artery disease involving [place] coronary artery of [place] heart without angina pectoris (414.01) (I25.10) History [...] 18Sep2022 12:00PMRe (more content not included)... Normal [email or web address] Tobacco Screening.on 023 Adult depression screening assessment No [facility] y 250 DO Work Phone: Fall risk assessment a) No falls within the last year [facility] [address] DO Work Phone: Tobacco use status CP b) No [facility] [address] 250 DO Work Phone: MRI LSPINE [...] NATACHA RENDON Date: 2022-05-22 19:43 Normal [facility] XR FOREIGN BODY EYEon 2021 XR FOREIGN BODY EYE EXAMINATION: XR FORE IGN BODY EYE HISTORY: Foreign body in eye COMPARISON: No relevant comparison available. FINDINGS: ORBITS: Negative for a metallic foreign body. OTHER: Negative. IMPRESSION: No metallic foreign body in the orbits Electronically authenticated by: NATACHA RENDON Date: 2022-05-22 14:05 Normal [facility] CULTURE BLOODon 05-01-2022 Microscopic examination of blood, culture Culture Observations: Anaerobic bottle only positive Culture Observations: BCID- Staph epidermidis Culture Observations: NO GROWTH AT 5 DAYS IN AEROBIC BOTTLE. Culture Observations: METHICILLIN RESISTANT STAPH EPIDERMIDIS ISOLATED. PLEASE FOLLOW APPROPRIATE ISOLATION PROCEDURES. Culture Observations: FAXED RESULT TO [facility] 04/28 @ 1011 Isolate 1 Staphylococcus epidermidis Growth of ORGANISM [...] F Oxacillin >=4 R F Normal [facility] Comment on above: Performed By: #### H STROPN #### [facility] [address] [place] [address] Dr. Troy Hickey BLOOD CULTURE ID PANELon A. baumannii Not detected Normal NOT DETECTED [facility] Comment on above: Performed By: #### B CID2 #### [facility] [address] [place] [address] Dr. Troy Hickey Bacteriodes fragilis Not detected Normal NOT DETECTED [facility] Comment on above: Performed By: #### B CID2 #### [facility] [address] [address] [address] Troy BUSTOSD CONTROLS PASSED Normal [facility] Comment on above: Performed By: #### B CID2 #### [facility] [address] [place] [address] Dr. Troy Hickey BCIDBTHD BLOOD CULTURE BOTTLE INFORMATION [facility] Comment on above: Performed By: #### B CID2 #### [facility] [address] [place] [address] Dr. Troy Hickey BCIDHD1 ANTIMICROBIAL RESIST ANCE GENES [facility] Comment on above: Performed By: #### B CID2 #### [facility] [address] [place] [address] Dr. Troy Hickey BCIDHD2 SEE BELOW [facility] Comment on above: Result Comment: Note : Antimicrobial resitance can occur via multiple mechanisms. A Not Detected result for the [employer] antomicrobial resistance gene assays does not indicate antimicrobial susceptibility. Subculturing is required for species identification and susceptibility testing of isolates. Performed By: #### B CID2 #### [facility] [address] [place] [address] Dr. Troy Hickey BCIDHD3 Positive [facility] Comment on above: Performed By: #### B CID2 #### [facility] [address] [place] [address] Dr. Troy Hickey BCIDHD4 Negative [facility] Comment on above: Performed By: #### B CID2 #### [facility] [address] [place] [address] Dr. Troy Hickey BCIDHD5 YEAST [facility] Comment on above: Performed By: #### B CID2 #### [facility] [address] [place] [address] Dr. Troy Hickey Bottle Set: Set 2 [facility] Comment on above: Performed By: #### B CID2 #### [facility] [address] [place] [address] Dr. Troy Hickey Bottle: Anaerobic Normal [facility] Comment on above: Performed By: #### B CID2 #### [facility] [address] [place] [address] Dr. Troy Hickey C. neoformans/gattii Not detected Normal NOT DETECTED [facility] Comment on above: Performed By: #### B CID2 #### [facility] [address] [place] [address] Dr. Troy Hickey Eunice albicans Not detected Normal NOT DETECTED [facility] Comment on above: Performed By: #### B CID2 #### [facility] [address] [place] [address] Dr. Troy Hickey Eunice auris Not detected Normal NOT DETECTED [facility] Comment on above: Performed By: #### B CID2 #### [facility] [address] [place] [address] Dr. Troy Hickey Eunice glabrata Not detected Normal NOT DETECTED [facility] Comment on above: Performed By: #### B CID2 #### [facility] [address] [place] [address] Dr. Troy Hickey Eunice Krusei Not detected Normal NOT DETECTED [facility] Comment on above: Performed By: #### B CID2 #### [facility] [address] [place] [address] Dr. Troy Hickey Eunice Parapsilosis Not detected Normal NOT DETECTED [facility] Comment on above: Performed By: #### B CID2 #### [facility] [address] [place] [address] Dr. Troy Hickey Eunice Tropicalis Not detected Normal NOT DETECTED [facility] Comment on above: Performed By: #### B CID2 #### [facility] [address] [place] [address] Dr. Troy Hickey CTX-M Resistant Gene Not Applicable Normal NOT DETECTED [facility] Comment on above: Performed By: #### B CID2 #### [facility] [address] [place] [address] Dr. Troy Hickey E. Cloacae complex Not detected Normal NOT DETECTED [facility] Comment on above: Performed By: #### B CID2 #### [facility] [address] [place] [address] Dr. Troy Hickey E. faecalis Not detected Normal NOT DETECTED [facility] Comment on above: Performed By: #### B CID2 #### [facility] [address] [place] [address] Dr. Troy Hickey E. faecium Not detected Normal NOT DETECTED [facility] Comment on above: Performed By: #### B CID2 #### [facility] [address] [place] [address] Dr. Troy Hickey Enterobacteriaceae Not detected Normal NOT DETECTED [facility] Comment on above: Performed By: #### B CID2 #### [facility] [address] [place] [address] Dr. Troy Hickey Escherichia coli Not detected Normal NOT DETECTED [facility] Comment on above: Performed By: #### B CID2 #### [facility] [address] [place] [address] Dr. Troy Hickey H. influenzae Not detected Normal NOT DETECTED [facility] Comment on above: Performed By: #### B CID2 #### [facility] [address] [place] [address] Dr. Troy Hickey IMP Resistant Gene Not Applicable Normal NOT DETECTED [facility] Comment on above: Performed By: #### B CID2 #### [facility] [address] [place] [address] Dr. Troy Hickey K. oxytoca Not detected Normal NOT DETECTED [facility] Comment on above: Performed By: #### B CID2 #### [facility] [address] [place] [address] Dr. Troy Hickey K. pneumoniae Not detected Normal NOT DETECTED [facility] Comment on above: Performed By: #### B CID2 #### [facility] [address] [place] [address] Dr. Troy Hickey Klebsiella aerogenes Not detected Normal NOT DETECTED [facility] Comment on above: Performed By: #### B CID2 #### [facility] [address] [place] [address] Dr. Troy Hickey KPC Resistant Gene Not detected Normal NOT DETECTED [facility] Comment on above: Performed By: #### B CID2 #### [facility] [address] [place] [address] Dr. Troy Hickey List. monocytogenes Not detected Normal NOT DETECTED [facility] Comment on above: Performed By: #### B CID2 #### [facility] [address] [place] [address] Dr. Troy Hickey Mcr-1 Resistant Gene Not Applicable Normal NOT DETECTED [facility] Comment on above: Performed By: #### B CID2 #### [facility] [address] [place] [address] Dr. Troy Hickey mecA/C Detected Abnormal NOT DETECTED [facility] Comment on above: Performed By: #### B CID2 #### [facility] [address] [place] [address] Dr. Troy Hickey mecA/C MREJ Not Applicable Normal NOT DETECTED [facility] Comment on above: Performed By: #### B CID2 #### [facility] [address] [place] [address] Dr. Troy Hickey N. meningitidis Not detected Normal NOT DETECTED [facility] Comment on above: Performed By: #### B CID2 #### [facility] [address] [place] [address] Dr. Troy Hickey NDM Resistant Gene Not Applicable Normal NOT DETECTED [facility] Comment on above: Performed By: #### B CID2 #### [facility] [address] [place] [address] Dr. Troy Hickey Oxa-48-like Not Applicable Normal NOT DETECTED [facility] Comment on above: Performed By: #### B CID2 #### [facility] [address] [place] [address] Dr. Troy Hickey Proteus Not detected Normal NOT DETECTED [facility] Comment on above: Performed By: #### B CID2 #### [facility] [address] [place] [address] Dr. Troy Hickey Pseud. aeruginosa Not detected Normal NOT DETECTED [facility] Comment on above: Performed By: #### B CID2 #### [facility] [address] [place] [address] Dr. Troy Hickey S. maltophilia Not detected Normal NOT DETECTED [facility] Comment on above: Performed By: #### B CID2 #### [facility] [address] [place] [address] Dr. Troy Hickey Salmonella Not detected Normal NOT DETECTED [facility] Comment on above: Performed By: #### B CID2 #### [facility] [address] [place] [address] Dr. Troy Hickey Seratia marcescens Not detected Normal NOT DETECTED [facility] Comment on above: Performed By: #### B CID2 #### [facility] [address] [place] [address] Dr. Troy Hickey Site: right arm Normal [facility] Comment on above: Performed By: #### B CID2 #### [facility] [address] [place] [address] Dr. Troy Hickey Staph. aureus Not detected Normal NOT DETECTED [facility] Comment on above: Performed By: #### B CID2 #### [facility] [address] [place] [address] Dr. Troy Hickey Staph. epidermidis Detected Abnormal NOT DETECTED [facility] Comment on above: Performed By: #### B CID2 #### [facility] [address] [place] [address] Dr. Troy Hickey Staph. lugdunensis Not detected Normal NOT DETECTED [facility] Comment on above: Performed By: #### B CID2 #### [facility] [address] [place] [address] Dr. Troy Hickey Staphylococcus Detected Abnormal NOT DETECTED [facility] Comment on above: Performed By: #### B CID2 #### [facility] [address] [place] [address] Dr. Troy Hickey Strep. agalactiae Not detected Normal NOT DETECTED [facility] Comment on above: Performed By: #### B CID2 #### [facility] [address] [place] [address] Dr. Troy Hickey Strep. pneumoniae Not detected Normal NOT DETECTED [facility] Comment on above: Performed By: #### B CID2 #### [facility] [address] [place] [address] Dr. Troy Hickey Strep. pyogenes Not detected Normal NOT DETECTED [facility] Comment on above: Performed By: #### B CID2 #### [facility] [address] [place] [address] Dr. Troy Hickey Streptococcus Not detected Normal NOT DETECTED [facility] Comment on above: Performed By: #### B CID2 #### [facility] [address] [place] [address] Dr. Troy Hickey Franc/Blair Resist. Gene Not detected Normal NOT DETECTED [facility] Comment on above: Performed By: #### B CID2 #### [facility] [address] [place] [address] Dr. Troy Hickey VIM Resistant Gene Not Applicable Normal NOT DETECTED [facility] Comment on above: Performed By: #### B CID2 #### [facility] [address] [place] [address] Dr. Troy Hickey BNPon 04-25-2022 Natriuretic peptide B (Bld) [Mass/Vol] 239.0 pg/mL Normal <=900.[address] [facility] Comment on above: Performed By: #### B LANGUAGE INTERPRETER, HSTROPN, CMP #### [facility] [address] [place] [address] Dr. Troy Hickey CBC AUTO DIFFon 04-25-2022 BASO # 0.1 103/ul Normal 0.0-0.[address] [facility] [facility] Comment on above: Performed By: #### H STROPN #### [facility] [address] [place] [address] Dr. Troy Hickey Basophils/100 WBC (Bld) 0.3 % Normal 0.2-2.0 [facility] Comment on above: Performed By: #### H STROPN #### [facility] [address] [place] [address] Dr. Troy Hickey EO # 0.0 103/ul Normal 0.0-0.[address] [facility] Comment on above: Performed By: #### H STROPN #### [facility] [address] [place] [address] Dr. Troy Hickey Eosinophils/100 WBC (Bld) 0.1 % Critically low 0.9-7.[address] [facility] Comment on above: Performed By: #### H STROPN #### [facility] [address] [place] [address] Dr. Troy Hickey Erythrocyte distribution width (RBC) [Ratio] 13.5 % Normal 11.0-15.[address] [facility] Comment on above: Performed By: #### H STROPN #### [facility] [address] [place] [address] Dr. Troy Hickey Hematocrit (Bld) [Volume fraction] 33.0 % Critically low 42.0-54.[address] [facility] Comment on above: Performed By: #### H STROPN #### [facility] [address] [place] [address] Dr. Troy Hickey Hemoglobin (Bld) [Mass/Vol] 10.4 g/dL Critically low 14.0-18.[address] [facility] Comment on above: Performed By: #### H STROPN #### [facility] [address] [place] [address] Dr. Troy Hickey IG # 0.08 10e3/ul Critically high 0.00-0.03 [place] Comment on above: Performed By: #### H STROPN #### [facility] [address] [place] [address] Dr. Troy Hickey IG % 0.5 % Normal 0.0-0.[address] [facility] Comment on above: Performed By: #### H STROPN #### [facility] [address] [place] [address] Dr. Troy Hickey LYMPH # 0.8 103/ul Critically low 1.2-3.8 [facility] Comment on above: Performed By: #### H STROPN #### [facility] [address] [place] [address] Dr. Troy Hickey Lymphocytes/100 WBC (Bld) 4.3 % Critically low 20.5-60.[address] [facility] Comment on above: Performed By: #### H STROPN #### [facility] [address] [place] [address] Dr. Troy Hickey MANUAL DIFF REQ NO Normal [facility] Comment on above: Performed By: #### H STROPN #### [facility] [address] [place] [address] Dr. Troy Hickey MCH (RBC) [Entitic mass] 25.3 pg Critically low 25.9-34.[address] [facility] Comment on above: Performed By: #### H STROPN #### [facility] [address] [place] [address] Dr. Troy Hickey MCHC (RBC) [Mass/Vol] 31.5 g/dL Normal 29.9-35.[address] [facility] Comment on above: Performed By: #### H STROPN #### [facility] [address] [place] [address] Dr. Troy Hickey MCV (RBC) [Entitic vol] 80.3 fL Normal 80.0-94.0 [facility] Comment on above: Performed By: #### H STROPN #### [facility] [address] [place] [address] Dr. Troy Hickey MONO # 0.6 103/ul Normal 0.3-0.[address] [facility] Comment on above: Performed By: #### H STROPN #### [facility] [address] [place] [address] Dr. Troy Hickey Monocytes/100 WBC (Bld) 3.4 % Normal 1.7-12.0 [facility] Comment on above: Performed By: #### H STROPN #### [facility] [address] [place] [address] Dr. Troy Hickey NEUT # 16.0 103/ul Critically high 1.4-6.5 [facility] Comment on above: Performed By: #### H STROPN #### [facility] [address] [place] [address] Dr. Troy Hickey Neutrophils/100 WBC (Bld) 91.4 % Critically high 43.0-75.[address] [facility] Comment on above: Performed By: #### H STROPN #### [facility] [address] [address] [address] Troy Hickey Platelet mean volume (Bld) [Entitic vol] 8.9 fL Critically low 9.5-13.[address] [facility] Comment on above: Performed By: #### H STROPN #### [facility] [address] [place] [address] Dr. Troy Hickey PLT 269 103/ul Normal 150-[address] [facility] Comment on above: Performed By: #### H STROPN #### [facility] [address] [address] [address] Troy Hickey RBC 4.11 106/ul Critically low 4.70-6.10 [facility] Comment on above: Performed By: #### H STROPN #### [facility] [address] [address] [address] Troy Hickey WBC 17.5 103/ul Critically high 4.0-11.0 [facility] Comment on above: Performed By: #### H STROPN #### [facility] [address] [place] [address] Dr. Troy Hickey CULTURE BLOODon 04-25-2022 Microscopic examination of blood, culture Culture Observations: NO GROWTH AT 5 DAYS. Normal [facility] Comment on above: Performed By: #### H STROPN #### [facility] [address] [place] [address] Dr. Troy Hickey [facility]on SARS-CoV-2 (COVID-19) RNA ERNIE+probe Ql (Unsp spec) Not detected Normal NOT DETECTED [facility] Comment on above: Result Comment: When [...] for this test is supported by the [place] of Health and Human Service's declaration that [...] used). Performed By: #### C VDTBH #### [facility] [address] [place] [address] Dr. Troy Hickey INFLUENZA A AND B AGon INFLUENZA A AG Negative Normal NEGATIVE SEE COMMENT [facility] Comment on above: Performed By: #### I NFLUAB #### [facility] [address] [place] [address] Dr. Troy Hickey INFLUENZA B AG Negative Normal NEGATIVE SEE COMMENT [facility] Comment on above: Performed By: #### I NFLUAB #### [facility] [address] [place] [address] Dr. Troy Hickey INTERNAL CONTROLS Within Normal Limits Normal Wi thin Normal Limits [facility] Comment on above: Performed By: #### I NFLUAB #### [facility] [address] [place] [address] Dr. Troy Hickey LACTATE/LACTIC ACIDon 2021 Lactate [Moles/Vol] 1.5 mmol/L Normal 0.4-1.9 [facility] Comment on above: Performed By: #### L ACT #### [facility] [address] [place] [address] Dr. Troy Hickey PROF 14(COMP METB)on 022 Albumin [Mass/Vol] 3.6 g/dL Normal 3.4-5.0 [facility] Comment on above: Performed By: #### B LANGUAGE INTERPRETER, HSTROPN, CMP #### [facility] [address] [place] [address] Dr. Troy Hickey Albumin/Globulin [Mass ratio] 0.8 {ratio} Normal [facility] Comment on above: Performed By: #### B LANGUAGE INTERPRETER, HSTRWAQASN, CMP #### [facility] [address] [place] [address] Dr. Troy Hickey ALP [Catalytic activity/Vol] 144 U/L Critically high 46-[address] [facility] Comment on above: Performed By: #### B LANGUAGE INTERPRETER, HSTROPN, CMP #### [facility] [address] [place] [address] Dr. Troy Hickey ALT [Catalytic activity/Vol] 17 U/L Normal 16-63 [facility] Comment on above: Performed By: #### B LANGUAGE INTERPRETER, HSTROPN, CMP #### [facility] [address] [place] [address] Dr. Troy Hickey Anion gap [Moles/Vol] 9.0 mmol/L Normal [facility] Comment on above: Performed By: #### B LANGUAGE INTERPRETER, HSTROPN, CMP #### [facility] [address] [place] [address] Dr. Troy Hickey AST [Catalytic activity/Vol] 15 U/L Normal 15-[address] [facility] Comment on above: Performed By: #### B LANGUAGE INTERPRETER, HSTROPN, CMP #### [facility] [address] [place] [address] Dr. Troy Hickey Bilirubin [Mass/Vol] 0.7 mg/dL Normal 0.2-1.[address] [facility] Comment on above: Performed By: #### B LANGUAGE INTERPRETER, HSTROPN, CMP #### [facility] [address] [place] [address] Dr. Troy Hickey Calcium [Mass/Vol] 9.0 mg/dL Normal 8.5-10.1 [facility] Comment on above: Performed By: #### B LANGUAGE INTERPRETER, HSTROPN, CMP #### [facility] [address] [place] [address] Dr. Troy Hickey Chloride [Moles/Vol] 101 mmol/L Normal 98-107 [facility] Comment on above: Performed By: #### B LANGUAGE INTERPRETER, HSTROPN, CMP #### [facility] [address] [address] [address] Troy Hickey CO2 [Moles/Vol] 29.0 mmol/L Normal 21.0-32.0 [facility] Comment on above: Performed By: #### B LANGUAGE INTERPRETER, HSTROPN, CMP #### [facility] [address] [address] [address] Troy Hickey Creatinine [Mass/Vol] 0.94 mg/dL Normal 0.70-1.[address] [facility] Comment on above: Performed By: #### B LANGUAGE INTERPRETER, HSTROPN, CMP #### [facility] [address] [address] [address] Troy Hickey EGFR-AF SYRIAN >60 Normal >=60 [facility] Comment on above: Performed By: #### B LANGUAGE INTERPRETER, HSTROPN, CMP #### [facility] [address] [place] [address] Dr. Troy Hickey EGFR-NON AF SYRIAN >60 Normal >=[address] [facility] Comment on above: Performed By: #### B LANGUAGE INTERPRETER, HSTROPN, CMP #### [facility] [address] [address] [address] Troy Hickey Globulin (S) [Mass/Vol] 4.3 g/dL Normal [facility] Comment on above: Performed By: #### B LANGUAGE INTERPRETER, HSTROPN, CMP #### [facility] [address] [address] [address] Troy Hickey Glucose [Mass/Vol] 187 mg/dL Critically high 74-106 [facility] Comment on above: Performed By: #### B LANGUAGE INTERPRETER, HSTROPN, CMP #### [facility] [address] [address] [address] Troy Hickey Potassium [Moles/Vol] 4.0 mmol/L Normal 3.5-5.[address] [facility] Comment on above: Performed By: #### B LANGUAGE INTERPRETER, HSTROPN, CMP #### [facility] [address] [address] [address] Troy Hickey Protein [Mass/Vol] 7.9 g/dL Normal 6.4-8.2 [facility] Comment on above: Performed By: #### B LANGUAGE INTERPRETER, HSTROPN, CMP #### [facility] [address] [address] [address] Troy Hickey Sodium [Moles/Vol] 135 mmol/L Critically low 136-145 [facility] Comment on above: Performed By: #### B LANGUAGE INTERPRETER, HSTROPN, CMP #### [facility] [address] [address] [address] Troy Hickey Urea nitrogen [Mass/Vol] 15.0 mg/dL Normal 7.0-18.[address] [facility] Comment on above: Performed By: #### B LANGUAGE INTERPRETEREMATRBAIRON, CMP #### [facility] [address] [place] [address] Dr. Troy Hickey Urea nitrogen/Creatinine [Mass ratio] 16.0 mg/mg Normal [facility] Comment on above: Performed By: #### B LANGUAGE INTERPRETER, HSTROPN, CMP #### [facility] [address] [place] [address] Dr. Troy Hickey TROPONIN, HIGH SENSITIVITYon 04-25-2022 HSTROP 11.1 pg/mL Normal 4.0-76.[address] [facility] Comment on above: Result Comment: CUT- OFF POINTS HAVE BEEN ESTABLISHED BASED ON THE FOURTH UNIVERSAL DEFINITIONS OF MYOCARDIAL INFARCTION. THE UPPER REFERENCE LIMIT (URL) OF TROPONIN, DEFINED THE 99TH PERCENTILE OF cTnI DISTRIBUTION IN A REFERENCE POPULATION, HAS BEEN CONFIRMED THE DECISION THRESHOLD FOR OK DIAGNOSIS. Performed By: #### B LANGUAGE INTERPRETER, HSTROPN, CMP #### [facility] [address] [place] [address] Dr. Troy Hickey XR CHEST 1 Von [...] SANDER MOCTEZUMA Date: 2022-04-25 15:38 Normal [facility] XR CHEST 2 Von 04-23-2022 XR [...] JEAN-PAUL SALAS Date: 2022-04-23 11:36 Normal [facility] XR LSPINE MIN 4 VIEWSon 03-20 [...] by: JEAN-PAUL SALAS Date: 2022-04-02 15:11 Normal [facility] Tobacco Screening.on Tobacco use status CPHS b) No M [facility] y [facility] DO Work Phone: PROF 14(COMP METB)on Albumin [Mass/Vol] 3.5 g/dL Normal 3.4-5.0 [facility] Comment on above: Performed By: #### C MP #### [facility] [address] [address] [address] Troy Hickey Albumin/Globulin [Mass ratio] 0.9 {ratio} Normal [facility] Comment on above: Performed By: #### C MP #### [facility] [address] [address] [address] Troy Hickey ALP [Catalytic activity/Vol] 104 U/L Normal 46-116 [facility] Comment on above: Performed By: #### C MP #### [facility] [address] [place] [address] Dr. Troy Hickey ALT [Catalytic activity/Vol] 19 U/L Normal 16-[address] [facility] Comment on above: Performed By: #### C MP #### [facility] [address] [address] [address] Troy Hickey Anion gap [Moles/Vol] 11.7 mmol/L Normal [facility] Comment on above: Performed By: #### C MP #### [facility] [address] [place] [address] Dr. Troy Hickey AST [Catalytic activity/Vol] 9 U/L Critically low 15-[address] [facility] Comment on above: Performed By: #### C MP #### [facility] [address] [place] [address] Dr. Troy Hickey Bilirubin [Mass/Vol] 0.4 mg/dL Normal 0.2-1.[address] [facility] Comment on above: Performed By: #### C MP #### [facility] [address] [place] [address] Dr. Troy Hickey Calcium [Mass/Vol] 8.7 mg/dL Normal 8.5-10.1 [facility] Comment on above: Performed By: #### C MP #### [facility] [address] [address] [address] Troy Hickey Chloride [Moles/Vol] 104 mmol/L Normal 98-107 [facility] Comment on above: Performed By: #### C MP #### [facility] [address] [place] [address] Dr. Troy Hickey CO2 [Moles/Vol] 28.9 mmol/L Normal 21.0-32.0 [facility] Comment on above: Performed By: #### C MP #### [facility] [address] [place] [address] Dr. Troy Hickey Creatinine [Mass/Vol] 1.02 mg/dL Normal 0.70-1.[address] [facility] Comment on above: Performed By: #### C MP #### [facility] [address] [address] [address] Troy Hickey EGFR-AF SYRIAN >60 Normal >=60 [facility] Comment on above: Performed By: #### C MP #### [facility] [address] [address] [address] Troy Hickey EGFR-NON AF SYRIAN >60 Normal >=[address] [facility] Comment on above: Performed By: #### C MP #### [facility] [address] [address] [address] Troy Hickey Globulin (S) [Mass/Vol] 3.8 g/dL Normal [facility] Comment on above: Performed By: #### C MP #### [facility] [address] [address] [address] Troy Hickey Glucose [Mass/Vol] 121 mg/dL Critically high 74-106 [facility] Comment on above: Performed By: #### C MP #### [facility] [address] [address] [address] Troy Hickey Potassium [Moles/Vol] 4.6 mmol/L Normal 3.5-5.[address] [facility] Comment on above: Performed By: #### C MP #### [facility] [address] [address] [address] Troy Hickey Protein [Mass/Vol] 7.3 g/dL Normal 6.4-8.2 [facility] Comment on above: Performed By: #### C MP #### [facility] [address] [address] [address] Troy Hickey Sodium [Moles/Vol] 140 mmol/L Normal 136-145 [facility] Comment on above: Performed By: #### C MP #### [facility] [address] [address] [address] Troy Hickey Urea nitrogen [Mass/Vol] 45.0 mg/dL Critically high 7.0-18.[address] [facility] Comment on above: Performed By: #### C MP #### [facility] [address] [address] [address] Troy Hickey Urea nitrogen/Creatinine [Mass ratio] 44.1 mg/mg Normal [facility] Comment on above: Performed By: #### C MP #### [facility] [address] [address] [address] Troy Hickey Tobacco Screening.on 022 Adult depression screening assessment No [facility] y 250 DO Work Phone: Fall risk assessment b) One or more fall s in the last year [facility] y 250 DO Work Phone: Tobacco use status CPHS b) No M [facility] DO Work Phone: BNPon 11-23-2021 Natriuretic peptide B (Bld) [Mass/Vol] 153.0 pg/mL Normal <=900.[address] [facility] Comment on above: Performed By: #### H STROPN #### [facility] [address] [place] [address] Dr. Troy Hickey CBC AUTO DIFFon 11-23-2021 BASO # 0.1 103/ul Normal 0.0-0.[address] [facility] Comment on above: Performed By: #### H STROPN #### [facility] [address] [address] [address] Troy Hickey Basophils/100 WBC (Bld) 0.7 % Normal 0.2-2.0 [facility] Comment on above: Performed By: #### H STROPN #### [facility] [address] [address] [address] Troy Hickey EO # 0.4 103/ul Normal 0.0-0.[address] [facility] Comment on above: Performed By: #### H STROPN #### [facility] [address] [address] [address] Troy Hickey Eosinophils/100 WBC (Bld) 4.2 % Normal 0.9-7.[address] [facility] Comment on above: Performed By: #### H STROPN #### [facility] [address] [address] [address] Troy Hickey Erythrocyte distribution width (RBC) [Ratio] 14.2 % Normal 11.0-15.[address] [facility] Comment on above: Performed By: #### H STROPN #### [facility] [address] [place] [address] Dr. Troy Hickey Hematocrit (Bld) [Volume fraction] 40.2 % Critically low 42.0-54.[address] [facility] Comment on above: Performed By: #### H STROPN #### [facility] [address] [place] [address] Dr. Troy Hickey Hemoglobin (Bld) [Mass/Vol] 12.4 g/dL Critically low 14.0-18.[address] [facility] Comment on above: Performed By: #### H STROPN #### [facility] [address] [place] [address] Dr. Tory Hickey IG # 0.03 10e3/ul Normal 0.00-0.[address] [facility] Comment on above: Performed By: #### H STROPN #### [facility] [address] [place] [address] Dr. Troy Hickey IG % 0.3 % Normal 0.0-0.[address] [facility] Comment on above: Performed By: #### H STROPN #### [facility] [address] [place] [address] Dr. Troy Hickey LYMPH # 2.4 103/ul Normal 1.2-3.[address] [facility] Comment on above: Performed By: #### H STROPN #### [facility] [address] [place] [address] Dr. Troy Hickey Lymphocytes/100 WBC (Bld) 27.9 % Normal 20.5-60.[address] [facility] Comment on above: Performed By: #### H STROPN #### [facility] [address] [place] [address] Dr. Troy Hickey MANUAL DIFF REQ NO Normal [facility] Comment on above: Performed By: #### H STROPN #### [facility] [address] [address] [address] Tory Hickey MCH (RBC) [Entitic mass] 27.2 pg Normal 25.9-34.[address] [facility] Comment on above: Performed By: #### H STROPN #### [facility] [address] [place] [address] Dr. Troy Hickey MCHC (RBC) [Mass/Vol] 30.8 g/dL Normal 29.9-35.[address] [facility] Comment on above: Performed By: #### H STROPN #### [facility] [address] [place] [address] Dr. Troy Hickey MCV (RBC) [Entitic vol] 88.2 fL Normal 80.0-94.0 [facility] Comment on above: Performed By: #### H STROPN #### [facility] [address] [place] [address] Dr. Troy Hickey MONO # 0.6 103/ul Normal 0.3-0.[address] [facility] Comment on above: Performed By: #### H STROPN #### [facility] [address] [place] [address] Dr. Troy Hickey Monocytes/100 WBC (Bld) 7.2 % Normal 1.7-12.0 [facility] Comment on above: Performed By: #### H STROPN #### [facility] [address] [place] [address] Dr. Troy Hickey NEUT # 5.2 103/ul Normal 1.4-6.[address] [facility] Comment on above: Performed By: #### H STROPN #### [facility] [address] [place] [address] Dr. Troy Hickey Neutrophils/100 WBC (Bld) 59.7 % Normal 43.0-75.[address] [facility] Comment on above: Performed By: #### H STROPN #### [facility] [address] [place] [address] Dr. Troy Hickey Platelet mean volume (Bld) [Entitic vol] 8.5 fL Critically low 9.5-13.[address] [facility] Comment on above: Performed By: #### H STROPN #### [facility] [address] [place], [place] [address] Dr. Troy Hickey PLT 252 103/ul Normal 150-[address] [facility] Comment on above: Performed By: #### H STROPN #### [facility] [address] [place], [place] [address] Dr. Troy Hickey RBC 4.56 106/ul Critically low 4.70-6.10 [facility] Comment on above: Performed By: #### H STROPN #### [facility] [address] [place], [place] [address] Dr. Troy Hickey WBC 8.6 103/ul Normal 4.0-11.[address] [facility] Comment on above: Performed By: #### H STROPN #### [facility] [address] [place], [place] [address] Dr. Troy Hickey CTA CHEST WO W [...] ABRAN CHRISTINE Date: 2021-11-23 19:06 Normal [facility] Covid-19 PCR (CVDTB)on SARS-CoV-2 (COVID-19) RNA ERNIE+probe Ql (Unsp spec) Not detected Normal NOT DETECTED [facility] Comment on above: Result Comment: This test is not yet approved or cleared by the [place] FDA. When there are no FDA-approved or cleared tests available, and other criteria are met, FDA can make tests available under an emergency access mechanism called an Emergency Use Authorization (EUA). The EUA for this test is supported by the [place] of Health and Human Service's (HHS's) declaration [...] SARS-CoV-2. Performed By: #### B CID2 #### [facility] [address] [place] [address] Dr. Troy Hickey D-DIMERon 11-23-2021 D-DIMER 0.52 mg/L FEU Critically high 0.19-0.50 [facility] Comment on above: Performed By: #### D DIM #### [facility] [address] [place] [address] Dr. Troy Hickey D-DIMER COMMENTS SEE BELOW Normal [facility] Comment on above: Result Comment: Incr eases [...] hospitalization. Performed By: #### D DIM #### [facility] [address] [place] [address] Dr. Troy Hickey PROF 14(COMP METB)on 022 Albumin [Mass/Vol] 3.5 g/dL Normal 3.4-5.0 [facility] Comment on above: Performed By: #### H STROPN #### [facility] [address] [place] [address] Dr. Troy Hickey Albumin/Globulin [Mass ratio] 0.8 {ratio} Normal [facility] Comment on above: Performed By: #### H STROPN #### [facility] [address] [place] [address] Dr. Troy Hickey ALP [Catalytic activity/Vol] 104 U/L Normal 46-[address] [facility] Comment on above: Performed By: #### H STROPN #### [facility] [address] [place] [address] Dr. Troy Hickey ALT [Catalytic activity/Vol] 22 U/L Normal 16-[address] [facility] Comment on above: Performed By: #### H STROPN #### [facility] [address] [place] [address] Dr. Troy Hickey Anion gap [Moles/Vol] 6.2 mmol/L Normal [facility] Comment on above: Performed By: #### H STROPN #### [facility] [address] [place] [address] Dr. Troy Hickey AST [Catalytic activity/Vol] 16 U/L Normal 15-[address] [facility] Comment on above: Performed By: #### H STROPN #### [facility] [address] [place] [address] Dr. Troy Hickey Bilirubin [Mass/Vol] 0.4 mg/dL Normal 0.2-1.[address] [facility] Comment on above: Performed By: #### H STROPN #### [facility] [address] [address] [address] Troy Hickey Calcium [Mass/Vol] 8.2 mg/dL Critically low 8.5-10.1 Th [facility] Comment on above: Performed By: #### H STROPN #### [facility] [address] [address] [address] Troy Hickey Chloride [Moles/Vol] 104 mmol/L Normal 98-[address] [facility] Comment on above: Performed By: #### H STROPN #### [facility] [address] [place] [address] Dr. Troy Hickey CO2 [Moles/Vol] 31.8 mmol/L Normal 21.0-32.0 [facility] Comment on above: Performed By: #### H STROPN #### [facility] [address] [place] [address] Dr. Troy Hickey Creatinine [Mass/Vol] 0.88 mg/dL Normal 0.70-1.[address] [facility] Comment on above: Performed By: #### H STROPN #### [facility] [address] [place] [address] Dr. Troy Hickey EGFR-AF SYRIAN >60 Normal >=60 [facility] Comment on above: Performed By: #### H STROPN #### [facility] [address] [place] [address] Dr. Troy Hickey EGFR-NON AF SYRIAN >60 Normal >=[address] [facility] Comment on above: Performed By: #### H STROPN #### [facility] [address] [place] [address] Dr. Troy Hickey Globulin (S) [Mass/Vol] 4.2 g/dL Normal [facility] Comment on above: Performed By: #### H STROPN #### [facility] [address] [place] [address] Dr. Troy Hickey Glucose [Mass/Vol] 109 mg/dL Critically high 74-106 [facility] Comment on above: Performed By: #### H STROPN #### [facility] [address] [address] [address] Troy Hickey Potassium [Moles/Vol] 4.0 mmol/L Normal 3.5-5.[address] [facility] Comment on above: Performed By: #### H STROPN #### [facility] [address] [address] [address] Troy Hickey Protein [Mass/Vol] 7.7 g/dL Normal 6.4-8.2 [facility] Comment on above: Performed By: #### H STROPN #### [facility] [address] [address] [address] Troy Hickey Sodium [Moles/Vol] 138 mmol/L Normal 136-145 [facility] Comment on above: Performed By: #### H STROPN #### [facility] [address] [place] [address] Dr. Troy Hickey Urea nitrogen [Mass/Vol] 17.0 mg/dL Normal 7.0-18.[address] [facility] Comment on above: Performed By: #### H STROPN #### [facility] [address] [place] [address] Dr. Troy Hickey Urea nitrogen/Creatinine [Mass ratio] 19.3 mg/mg Normal [facility] Comment on above: Performed By: #### H STROPN #### [facility] [address] [place] [address] Dr. Troy Hickey PROTIMEon 11-23-2021 INR Coag (PPP) [Relative time] 1.01 {INR} Normal [facility] Comment on above: Performed By: #### B CID2 #### [facility] [address] [address] [address] Troy Hickey INR GUIDELINES SEE BELOW Normal [facility] Comment on above: Result Comment: WAQAS RED INR: 2.0 - 3.0 CONDITIONS NOT LISTED BELOW 2.5 - 3.5 FOR PROSTHETIC HEART VALVE REPLACEMENT 2.5 - 3.5 RECURRENT THROMBOSIS Performed By: #### B CID2 #### [facility] [address] [place] [address] Dr. Troy Hickey PT Coag (PPP) [Time] 10.9 s Normal 9.0-11.[address] [facility] Comment on above: Performed By: #### B CID2 #### [facility] [address] [address] [address] Troy Hickey PTTon 11-23-2021 aPTT Coag (Bld) [Time] 28.3 s Normal 22.3-36.2 Th [facility] Comment on above: Performed By: #### B CID2 #### [facility] [address] [address] [address] Troy Hickey TROPONIN, HIGH SENSITIVITYon 11-23-2021 HSTROP 197.7 pg/mL Critically high 4.0-76.1 [facility] Comment on above: Result Comment: CUT- OFF POINTS HAVE BEEN ESTABLISHED BASED ON THE FOURTH UNIVERSAL DEFINITIONS OF MYOCARDIAL INFARCTION. THE UPPER REFERENCE LIMIT (URL) OF TROPONIN, DEFINED THE 99TH PERCENTILE OF cTnI DISTRIBUTION IN A REFERENCE POPULATION, HAS BEEN CONFIRMED THE DECISION THRESHOLD FOR OK DIAGNOSIS. Test Repeated. Critical Value Verified Performed By: #### H STROPN #### [facility] [address] [place] [address] Dr. Troy Hickey HSTROP 138.8 pg/mL Critically high 4.0-76.1 [facility] Comment on above: Result Comment: CUT- OFF POINTS HAVE BEEN ESTABLISHED BASED ON THE FOURTH UNIVERSAL DEFINITIONS OF MYOCARDIAL INFARCTION. THE UPPER REFERENCE LIMIT (URL) OF TROPONIN, DEFINED THE 99TH PERCENTILE OF cTnI DISTRIBUTION IN A REFERENCE POPULATION, HAS BEEN CONFIRMED THE DECISION THRESHOLD FOR OK DIAGNOSIS. Performed By: #### H STROPN #### [facility] [address] [place] [address] Dr. Troy Hickey XR FINGER MIN 2 VIEWSon 09-17 XR FINGER MIN 2 VIEWS EXAM: XR FINGER OK N 2 VIEWS HISTORY: Laceration of finger [...] by: LINDA MICHEL Date: 2021-10-05 15:[address] [facility] COVID Quick Testingon 2021 Result Positive [employer] Other Quick Fluon 08-08-2021 FLUAV Ab CF (S) [Titer] Negative [facility] [employer] Other FLUBV Ab CF (S) [Titer] Positive [facility] [employer] Other Vital Signs Date Time Vital Sign Value Performing Clinician Facility 11-23-2023 10:26-0400 Diastolic blood pressure 68 mm[Hg] [address] 11-23-2023 10:26-0400 Heart rate 72 /min [address] 11-23-2023 10:26-0400 Systolic blood pressure 116 mm[Hg] [address] 10-22-2023 10:50-0400 Body height 182.9 cm Addy Fuller DO Work Phone: [facility] 10-22-2023 10:50-0400 Body mass index (BMI) [Ratio] 34.58 kg/m2 Addy Fuller DO Work Phone: [facility] 10-22-2023 10:50-0400 Body weight 115.67 kg Addy Fuller DO Work Phone: [facility] 10-22-2023 10:50-0400 Diastolic blood pressure 62 mm[Hg] Addy Fuller DO Work Phone: [facility] 10-22-2023 10:50-0400 Heart rate 68 /min Addy Fuller DO Work Phone: [facility] 10-22-2023 10:50-0400 Systolic blood pressure 132 mm[Hg] Addy Fuller DO Work Phone: [facility] 10-09-2023 12:50-0400 Body height 182.9 cm Marietta Brice SUPERVISOR [employer] Work Phone: [email or web address] 10-09-2023 12:50-0400 Body mass index (BMI) [Ratio] 34.88 kg/m2 Marietta Brice SUPERVISOR [employer]AT[employer] Work Phone: [email or web address] 10-09-2023 12:50-0400 Body weight 116.67 kg Marietta Brice SUPERVISOR [employer]AT[employer] Work Phone: [email or web address] 10-09-2023 12:50-0400 Diastolic blood pressure 55 mm[Hg] Marietta Brice SUPERVISOR [employer]AT[employer] Work Phone: [email or web address] 10-09-2023 12:50-0400 Heart rate 63 /min Marietta Brice SUPERVISOR [employer]AT[employer] Work Phone: [email or web address] 10-09-2023 12:50-0400 Systolic blood pressure 102 mm[Hg] Marietta Brice SUPERVISOR [employer]AT[employer] Work Phone: [email or web address] 10-01-2023 08:35-0400 Body temperature 98.1 [degF] DO Joe House Work Phone: [facility] 10-01-2023 08:35-0400 Diastolic blood pressure 72 mm[Hg] DO Joe House Work Phone: [facility] 10-01-2023 08:35-0400 Heart rate 84 /min DO Joe House Work Phone: [facility] 10-01-2023 08:35-0400 Respiratory rate 20 /min DO Joe House Work Phone: [facility] 10-01-2023 08:35-0400 SaO2% (BldA) [Mass fraction] 98 % DO Joe House Work Phone: [facility] 10-01-2023 08:35-0400 Systolic blood pressure 134 mm[Hg] DO Joe House Work Phone: [facility] 10-01-2023 06:00-0400 Body weight 114.9 kg DO Joe House Work Phone: [facility] 09-30-2023 02:20-0400 Body height 182.88 cm DO Joe House Work Phone: [facility] 03-26-2023 11:21-0400 Body height 182.88 cm Joe P House Work Phone: [facility] DO Work Phone: 03-26-2023 11:21-0400 Body mass index (BMI) [Ratio] 34.99 kg/m2 Joe P House Work Phone: [facility] DO Work Phone: 03-26-2023 11:21-0400 Body surface area Derived from formula 2.37 m2 Joe P House Work Phone: [facility] 250 DO Work Phone: 03-26-2023 11:21-0400 Body weight 117.03 kg Joe P House Work Phone: [facility] 250 DO Work Phone: 03-26-2023 11:21-0400 Diastolic blood pressure 70 mm[Hg] Joe P House Work Phone: [facility] DO Work Phone: 03-26-2023 11:21-0400 Heart rate 64 /min Joe P House Work Phone: [facility] DO Work Phone: 03-26-2023 11:21-0400 Systolic blood pressure 148 mm[Hg] Joe P House Work Phone: [facility] DO Work Phone: 09-18-2022 12:00-0500 Heart rate 66 /min Joe P House Work Phone: [facility] DO Work Phone: 09-18-2022 11:55-0500 Body height 182.88 cm Joe Lam House Work Phone: [facility] 250 DO Work Phone: 09-18-2022 11:55-0500 Body mass index (BMI) [Ratio] 35.4 kg/m2 Joe P House Work Phone: [facility] DO Work Phone: 09-18-2022 11:55-0500 Body surface area Derived from formula 2.39 m2 Joe Lam House Work Phone: [facility] 250 DO Work Phone: 09-18-2022 11:55-0500 Body weight 118.39 kg Joe Lam House Work Phone: [facility] DO Work Phone: 09-18-2022 11:55-0500 Diastolic blood pressure 72 mm[Hg] Joe Lam House Work Phone: [facility] 250 DO Work Phone: 09-18-2022 11:55-0500 Systolic blood pressure 142 mm[Hg] Joe P House Work Phone: [facility] DO Work Phone: 03-19-2022 11:01-0400 Body height 182.88 cm Joe P House Work Phone: [facility] DO Work Phone: 08-31-2022 11:01-0400 Body mass index (BMI) [Ratio] 35.13 kg/m2 Joe P House Work Phone: [facility] 250 DO Work Phone: 03-19-2022 11:01-0400 Body surface area Derived from formula 2.38 m2 Joe P House Work Phone: [facility] DO Work Phone: 03-19-2022 11:01-0400 Body weight 117.48 kg Joe P House Work Phone: [facility] 250 DO Work Phone: 03-19-2022 11:01-0400 Diastolic blood pressure 62 mm[Hg] Jeo P House Work Phone: [facility] DO Work Phone: 03-19-2022 11:01-0400 Heart rate 60 /min Joe Lam House Work Phone: [facility] DO Work Phone: 03-19-2022 11:01-0400 Systolic blood pressure 102 mm[Hg] Joe P House Work Phone: [facility] 250 DO Work Phone: 12-09-2021 10:30-0400 Diastolic blood pressure 68 mm[Hg] Joe P House Work Phone: [facility] 250 DO Work Phone: 12-09-2021 10:30-0400 Systolic blood pressure 118 mm[Hg] Joe P House Work Phone: [facility] 250 DO Work Phone: 12-09-2021 10:25-0400 Body height 182.88 cm Joe P House Work Phone: [facility] 250 DO Work Phone: 12-09-2021 10:25-0400 Body mass index (BMI) [Ratio] 36.08 kg/m2 Joe P House Work Phone: [facility] 250 DO Work Phone: 12-09-2021 10:25-0400 Body surface area Derived from formula 2.4 m2 Joe P House Work Phone: [facility] 250 DO Work Phone: 12-09-2021 10:25-0400 Body weight 120.66 kg Joe P House Work Phone: [facility] 250 DO Work Phone: 12-09-2021 10:25-0400 Diastolic blood pressure 72 mm[Hg] Joe P House Work Phone: [facility] 250 DO Work Phone: 12-09-2021 10:25-0400 Heart rate 66 /min Joe P House Work Phone: [facility] DO Work Phone: 12-09-2021 10:25-0400 Systolic blood pressure 124 mm[Hg] Joe P [employer] Work Phone: [facility] DO Work Phone: 08-08-2021 15:15-0500 Body height 182.88 cm Jocelyn Diaz Other [employer] Other 08-08-2021 15:15-0500 Body mass index (BMI) [Ratio] 34.58 kg/m2 Jocelyn Diaz Other [employer] Other 08-08-2021 15:15-0500 Body temperature 97.1 [degF] Jocelyn Diaz Other [employer] Other 08-08-2021 15:15-0500 Body weight 115.67 kg Jocelyn Diaz Other [employer] Other 08-08-2021 15:15-0500 Respiratory rate 18 /min Yisselasher Diaz Other [employer] Other 08-08-2021 15:15-0500 SaO2% (BldA) [Mass fraction] 98 % Jocelyn Diaz Other [employer] Other Encounters Encounter Date Encounter Type Care Provider Facility Start: 04-26-2024 End: 04-26-2024 ambulatory García Castro Facility[facility] Start: 04-08-2024 End: 04-08-2024 ambulatory JOE P HOUSE Facility:[facility] Start: 03-14-2024 End: 03-14-2024 ambulatory DO KIRAN P VARSHA Facility:[facility] Start: 03-07-2024 End: 03-07-2024 ambulatory JOE P HOUSE Facility:[facility] Start: 03-02-2024 End: 03-02-2024 ambulatory JOE P HOUSE Facility:[facility] Start: 02-23-2024 End: 02-23-2024 ambulatory García Castro Facility:[facility] Start: 02-16-2024 End: 02-16-2024 ambulatory García Castro Facility:[facility] Start: 02-09-2024 End: 02-09-2024 ambulatory [facility] Start: 01-27-2024 End: 01-27-2024 ambulatory JOE P HOUSE Facility:[facility] Start: 12-17-2023 End: 12-17-2023 ambulatory JOE P HOUSE Facility:[facility] Start: 12-16-2023 End: 12-16-2023 ambulatory JOE P HOUSE Facility:[facility] Start: 11-30-2023 End: 11-30-2023 ambulatory Jaqui Biswas Facility:[facility] Start: 11-24-2023 End: 11-25-[address] [facility] Start: 11-24-2023 End: 11-24-2023 Subsequent hospital visit by physician Patricia Lopez Nm 1 [facility] Start: 11-23-2023 End: 11-24-[address] [facility] Start: 11-23-2023 End: 11-23-2023 Subsequent hospital visit by physician Patricia Dukesa Brandon Admin Room 1 [facility] Comment on above: NSTEMI, initial epis ode of care (Multi); Other cough; Other fatigue; HOPPER (dyspnea on exertion) Start: 11-18-2023 End: 11-18-2023 ambulatory RUPESH AZAR Not Available Start: 11-17-2023 End: 11-17-2023 ambulatory DO JOE P HOUSE Facility:[facility] Start: 11-17-2023 End: 11-17-2023 ambulatory JOE P HOUSE Facility:[facility] Start: 11-09-2023 End: 11-09-2023 ambulatory JOE P HOUSE Facility:[facility] Start: 11-04-2023 End: 11-04-2023 ambulatory Sander Elias Facility:[facility] Start: 11-04-2023 End: 11-04-2023 ambulatory DO Joe House Work Phone: [facility] Work Phone: Start: 11-04-2023 End: 11-04-2023 Departed Referred DO Joe House Work Phone: [facility] Start: 10-22-2023 End: 10-22-2023 Office outpatient visit 25 minutes Addy Fuller DO Work Phone: [facility] Comment on above: Coronary artery dise ase involving [place] coronary artery of [place] heart without angina pectoris; History of PTCA; NSTEMI, initial episode of care ([facility]); Hypertension, benign; Mixed hyperlipidemia; Gastrointestinal hemorrhage, unspecified gastrointestinal hemorrhage type; Other cough; Other fatigue; HOPPER (dyspnea on exertion); Former cigarette smoker Start: 10-22-2023 End: 10-22-2023 ambulatory [facility] Start: 10-15-2023 End: 10-15-2023 ambulatory García Castro Facility:[facility] Start: 10-15-2023 End: 10-15-2023 ambulatory DO García Castro Facility:[facility] Start: 10-09-2023 End: 10-09-2023 ambulatory MARIETTA Lillian BRICE [facility] Start: 10-09-2023 End: 10-09-2023 [facility] Work Phone: [facility] Comment on above: Positive colorectal cancer screening using Cologuard test (Primary Dx); Loose stools Start: 10-05-2023 End: 10-05-2023 ambulatory DO JOE P HOUSE Facility:[facility] Start: 09-30-2023 Non-patient / Non-visit DO Melissa samueles House Work Phone: [facility] Work Phone: Start: 09-30-2023 End: 10-01-2023 Evaluation and management of inpatient Tamara Mischler Facility:[facility] Start: 09-30-2023 End: 10-01-2023 Evaluation and management of inpatient DO Joe House Work Phone: [facility] [place] [facility] Work Phone: Start: 09-29-2023 End: 09-29-2023 ambulatory DO JOE P HOUSE Facility:[facility] Start: 09-23-2023 ambulatory PA-C Ariana Urena Facility:[facility] Start: 09-22-2023 End: 09-23-2023 ambulatory Neel Robin Facility:[facility] Start: 09-17-2023 End: 09-17-2023 ambulatory DO JOE P HOUSE Facility:[facility] Start: 08-27-2023 End: 08-27-2023 ambulatory Gibran Barker MD Facility:[facility] Start: 07-31-2023 End: 07-31-2023 ambulatory PA-C Ariana Urena Facility:[facility] Start: 07-21-2023 End: 07-25-2023 ambulatory DO JOE P HOUSE Facility:[facility] Start: 07-14-2023 End: 07-14-2023 ambulatory Gibran Barker MD Facility:[facility] Start: 06-25-2023 End: 06-25-2023 ambulatory Neymar Willingham Facility:[facility] Start: 06-05-2023 End: 06-05-2023 ambulatory Ariana Urena Facility:[facility] Start: 05-26-2023 End: 05-26-2023 ambulatory Gibran Barker MD Facility:[facility] Start: 05-19-2023 End: 05-19-2023 ambulatory Neymar Willingham Facility:[facility] Start: 04-08-2023 End: 04-08-2023 ambulatory Ariana Urena Facility:[facility] Start: 03-26-2023 Office outpatient vi sit 25 minutes Joe P House Work Phone: [facility] DO Work Phone: Start: 03-26-[address] Addy Fuller Facility: Start: 03-09-2023 Rx Renewal Joe P Hous e Work Phone: [facility] 250 DO Work Phone: Start: 10-29-2022 ambulatory Emanuelarcelia Andrews Facility:1 9836 Start: 09-18-2022 Office consultation new/estab patient 60 min Joe P House Work Phone: [facility] 250 DO Work Phone: Start: 09-18-2022 Office outpatient vi sit 25 minutes Joe P House Work Phone: [facility] DO Work Phone: Start: 09-18-[address] Addy Fuller Facility: Start: 05-22-2022 End: 05-23-[address] DOCTOR OCAMPO Facility:[facility] Start: 04-25-2022 End: 04-25-[address] JOE MADDOX Facility: Start: 04-23-2022 End: 04-24-[address] JOE MADDOX Facility: Start: 04-02-2022 End: 04-03-[address] JOE MADDOX Facility:[facility] Start: 03-19-2022 Office outpatient vi sit 25 minutes Joe Maddox Work Phone: [facility] DO Work Phone: Start: 02-10-2022 End: 02-11-[address] JOE MADDOX Facility:[facility] Start: 12-17-2021 End: 02-19-2022 ambulatory EMANUEL TURNER Facility:[facility] Start: 12-09-2021 Transitional care paradise frankalessandro srvc 14 day discharge Joe Maddox Work Phone: [facility] 250 DO Work Phone: Start: 11-23-2021 End: 11-23-2021 ambulatory [facility] Facility:[facility] Start: 10-05-2021 End: 10-05-2021 ambulatory [facility] Facility: Start: 08-08-2021 End: 08-08-2021 ambulatory Jocelyn Diaz Other [facility] [employer] Other Start: 08-08-2021 Office outpatient ne w 20 minutes Jocelyn Diaz [facility] [place] Patient encounter status Joe Maddox Work Phone: [facility] 250 DO Work Phone: End: 03-26-2023 Patient encounter status Joe Maddox Work Phone: [facility] DO Work Phone: Procedures Date Procedure Procedure Detail Performing Clinician Start: 11-24-2023 NUCLEAR STRESS TEST PORFIRIO FULLER Start: 09-30-2023 [facility] Angio DO Molly black House Work Phone: Start: 09-30-2023 DO Joe House Work Phone: Start: 05-25-2023 History of percutane ous transluminal coronary angioplasty History of PTCA Addy Fuller DO Work Phone: Start: 02-10-[address] DOCTOR OCAMPO Comment on above: Performed By: #### B CID2 #### [facility] [address] [address] [address] Troy Hickey Appendectomy Joe Lam [facility] Work Phone: Cardiac catheterization Kika Lam [facility] Work Phone: Colonoscopy Joe Lam [facility] Work Phone: Decompression of med lenore nerve Joe Lam [place] Work Phone: History of percutane ous transluminal coronary angioplasty History of PTCA Joe Lam [place] Work Phone: History of percutane ous transluminal coronary angioplasty History of PTCA Addy Fuller DO Work Phone: Insertion of arterial stent Joe Lam [place] Work Phone: Prosthetic arthropla sty of the hip Joe [facility] Work Phone: Repair of shoulder Joe [facility] Work Phone: Total replacement of hip Melissa rlmiguel P [facility] Work Phone: Plan of Treatment Date Care Activity Detail Author Start: 10-06-2031 DTaP,Tdap and Td Vac cines (2 - Tdap) DTaP,Tdap and Td Vaccines (2 - Tdap) [facility] Start: 10-06-2031 DTaP/Tdap/Td Vaccine s (2 - Tdap) DTaP/Tdap/Td Vaccines (2 - Tdap) [facility] Start: 10-08-2024 Adult BMI Screening Adult BMI Screen ing [facility] Start: 10-08-2024 Tobacco Screening Tobacco Screening [facility] Start: 02-09-2024 End: 02-09-2024 Patient encounter procedure 02/09/2024 1:40 PM EDT Office Visit [facility] [address] [facility] [address] [place] [address] Addy Fuller DO [address] [place] [address] [facility] Start: 11-24-2023 End: 11-24-2023 Patient encounter procedure 11/24/2023 11:45 AM EDT Appointment [place] [address] [facility] Start: 11-24-2023 Subsequent hospital visit by physician 11/24/2023 11:30 AM EDT Hospital Encounter [place] [id number] [facility] Start: 10-22-2023 End: 10-21-2025 NM Heart Perfusion W stress and W radionuclide IV Nuclear Stress Test Cardiac Nuclear Medicine Routine NSTEMI, initial episode of care ([facility]) Other cough Other fatigue HOPPER (dyspnea on exertion) Expected: 10/22/2023 (Approximate), Expires: 10/21/2025 [facility] Service Area Work Phone: Comment on above: Expected: 10/22/2023 (Approximate), Expires: 10/21/2025 Start: 10-22-2023 FUV, Provider: Addy Fuller, Status: Pen, Time: 10:50 AM FUV, Provider: Addy Fuller, Status: Pen, Time: 10:50 AM [facility] DO Work Phone: Start: 10-10-2023 [facility] Start: 10-09-2023 [facility] Start: 10-08-2023 [facility] Start: 10-07-2023 [facility] Start: 10-06-2023 [facility] Start: 10-05-2023 [facility] Start: 10-04-2023 [facility] Start: 10-03-2023 [facility] Start: 10-02-2023 [facility] Start: 09-30-2023 Fluoroscopy of Left Heart using Low Osmolar Contrast Fluoroscopy of Left Heart using Low Osmolar Contrast [facility] Start: 09-30-2023 Fluoroscopy of Multi ple Coronary Arteries using Low Osmolar Contrast Fluoroscopy of Multiple Coronary Arteries using Low Osmolar Contrast [facility] Start: 03-13-2024 Measurement of Cardi ac Sampling and Pressure, Left Heart, Percutaneous Approach Measurement of Cardiac Sampling and Pressure, Left Heart, Percutaneous [facility] Start: 09-30-2023 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 mechanic [facility] Start: 09-30-2023 Hospital admission [facility] Start: 09-30-2023 [facility] Start: 05-27-2023 FUV, Provider: Emanuel Smalls, Status: Pen, Time: 1:30 PM FUV, Provider: Emanuel Smalls, Status: Pen, Time: 1:30 PM -[facility] 250 DO Work Phone: Start: 03-26-2023 FUV, Provider: Addy Fuller, Status: Pen, Time: 11:20 AM FUV, Provider: Addy Fuller, Status: Pen, Time: 11:20 AM -[facility] 250 DO Work Phone: Start: 03-20-2023 COVID-19 Vaccine ( season) COVID-19 Vaccine ( season) [facility] Start: 10-29-2022 FUV, Provider: Emanuel Smalls, Status: Pen, Time: 1:00 PM FUV, Provider: Emanuel Smalls, Status: Pen, Time: 1:00 PM -[facility] 250 DO Work Phone: Start: 09-25-2022 FUV, Provider: Addy Fuller, Status: Pen, Time: 11:20 AM FUV, Provider: Addy Fuller, Status: Pen, Time: 11:20 AM -[facility] 250 DO Work Phone: Start: 03-19-2022 FUV, Provider: Addy Fuller, Status: Pen, Time: 10:30 AM FUV, Provider: Addy Fuller, Status: Pen, Time: 10:30 AM -[facility] 250 DO Work Phone: Start: 2020 Abdominal aortic ane urysm screening Abdominal Aortic Aneurysm (AAA) Screening [facility] Start: 2020 Fall Risk Screening Fall Risk Screen ing [facility] Start: 2015 RSV patient s and/or patients aged 60+ years (1 - 1-dose 60+ series) RSV patients and/or patients aged 60+ years (1 - 1-dose 60+ series) [facility] Start: 2005 Administration of varicella zoster vaccine Zoster (Shingles) Vaccine (1 of 2) [facility] Start: 2005 Zoster Vaccines (1 of 2) Zoste r Vaccines (1 of 2) [facility] Start: 1973 Adult BMI Follow Up Plan Adult BMI Follow Up Plan [facility] Start: 1973 Hepatitis C screening Hepatitis C Sc reening [facility] Start: 1967 Depression Screening Depression Scre ening [facility] Start: 1961 Pneumococcal Vaccine : 65+ Years (1 - PCV) Pneumococcal Vaccine: 65+ Years (1 - PCV) [facility] Start: 1961 Pneumococcal Vaccine : 65+ Years (1 of 2 - PCV) Pneumococcal Vaccine: 65+ Years (1 of 2 - PCV) [facility] Start: 1955 Lipid panel Lipid Panel [facility] Start: 1955 Medicare Annual Well ness Visit [facility] Start: 1955 Screening for malign ant neoplasm of colon [facility] End: 10-08-2024 EGD / Colonoscopy EGD / Colonoscopy GI Routine Positive colorectal cancer screening using Cologuard test 1 Occurrences starting 10/09/2023 until 10/08/2024 [employer] Work Phone: Comment on above: 1 Occurrences starti ng 10/09/2023 until 10/08/2024 End: 11-23-2023 NM Heart Perfusion W stress and W radionuclide IV [facility] Service Area Work Phone: Comment on above: Once for 1 Occurrenc es starting 11/23/2023 until 11/23/2023 Immunizations Immunization Date Immunization Notes Care Provider Brandon espinoza 10-05-2021 diphtheria, tetanus toxoids and pertussis vaccine Joe Maddox Work Phone: [facility] 250 DO Work Phone: 05-20-2021 Moderna COVID-19 Vaccine 100 MCG/0.5ML Intramuscular Suspension Joe House Work Phone: [facility] 250 DO Work Phone: 04-03-2021 Pfizer-BioNTech COVID-19 Vacc 30 MCG/0.3ML Intramuscular Suspension Joe House Work Phone: [facility] 250 DO Work Phone: 03-13-2021 Pfizer-BioNTech COVID-19 Vacc 30 MCG/0.3ML Intramuscular Suspension Joe House Work Phone: [facility] 250 DO Work Phone: 01-17-2021 Pfizer Purple Cap SARS-CoV-2 Addy Fuller DO Work Phone: [facility] Work Phone: 01-17-2021 Pfizer-BioNT COVID-1 9 Vac-[place] 30 MCG/0.3ML Intramuscular Suspension Joe [facility] Work Phone: [facility] DO Work Phone: Comment on above: Series: 12-18-2020 Pfizer Purple Cap SARS-CoV-2 Addy Fuller DO Work Phone: [facility] Work Phone: 12-18-2020 Pfizer-BioNT COVID-1 9 Vac-[place] 30 MCG/0.3ML Intramuscular Suspension [facility] Work Phone: [facility] Work Phone: Comment on above: Series: Payers Date Payer Category Payer Self-pay [id number] 2023 Medicare [employer] MED[employer] U[employer] MEDICARE DUAL COMPLETE [id number] 2023-Present [phone] [address] [address] [place] [address] [id number] [id number] 2023 Medicare [id number] 2022 Private Health Insurance [facility] DUAL [employer] [employer] [id number] 2022-Present [address] [address] [place] [address] [id number]. 2.7.3.208214.315 2021 Unknown [id number] 2.16.840.1.891697.19 2020 Medicaid [id number]. 1.13.424. 2.7.3.245635.315 2017 Unknown [id number] 1959 Medicaid [id number] 2.16.840.1.922426.19 1959 Medicare [id number] 1955 Unknown [id number] 2.16.840.1.332147.3.579. 2.593 1955 Unknown [id number] 2.16.840.1.081695.3.579. 2.593 1955 Unknown [id number] 2.16.840.1.647308.3.579. 2.593 1955 Unknown [id number] 2.16.840.1.189183.3.579. 2.593 1955 Unknown [id number] 2.16.840.1.967991.3.579. 2.593 1955 Unknown [id number] 2.16.840.1.909126.3.579. 2.593 1955 Unknown [id number] 2.16.840.1.707952.3.579. 2.593 1955 Unknown [id number] 2.16.840.1.730670.3.579. 2.593 1955 Unknown [id number] 2.16.840.1.321442.3.579. 2.356 1955 Unknown [id number] 2.16.840.1.789042.3.579. 2.356 1955 Unknown [id number] 2.16.840.1.226788.3.579. 2.356 1955 Unknown [id number] 2.16.840.1.777971.3.579. 2.1286 1955 Unknown [id number] 2.16.840.1.345236.3.579. 2.1259 1955 Unknown [id number] 2.16.840.1.838693.3.579. 2.1246 1955 Unknown [id number] 2.16.840.1.290032.3.579. 2.1246 1955 Unknown [id number] 2.16.840.1.756587.3.579. 2.1246 1955 Unknown [id number] 2.16.840.1.024684.3.579. 2.1246 1955 Unknown [id number] 2.16.840.1.206843.3.579. 2.1246 1955 Unknown [id number] 2.16.840.1.681889.3.579. 2.1244 1955 Unknown [id number] 2.16.840.1.895716.3.579. 2.1244 1955 Unknown [id number] 2.16.840.1.762736.3.579. 2.727 1955 Unknown [id number] 2.16.840.1.726238.3.579. 2.727 1955 Unknown [id number] 2.16.840.1.365073.3.579. 2.7 1955 Unknown [id number] 2.16.840.1.691905.3.579. 2. 1955 Unknown [id number] 2.16.840.1.002350.3.579. 2. 1955 Unknown [id number] 2.16.840.1.839119.3.579. 2. 1955 Unknown [id number] 2.16.840.1.704702.3.579. 2. 1955 Unknown [id number] 2.16.840.1.450942.3.579. 2 1955 Unknown [id number] 2.16.840.1.338900.3.579. 2 1955 Unknown [id number] 2.16.840.1.628657.3.579. 2 1955 Unknown [id number] 2.16.840.1.912680.3.579. 2 1955 Unknown [id number] 2.16.840.1.665634.3.579. 2 1955 Unknown [id number] 2.16.840.1.730328.3.579. 2 1955 Unknown [id number] 2.16.840.1.304508.3.579. 2 1955 Unknown [id number] 2.16.840.1.686533.3.579. 2. 1955 Unknown [id number] 2.16.840.1.689044.3.579. 2 1955 Unknown [id number] 2.16.840.1.364271.3.579. 2. 1955 Unknown [id number] 2.16.840.1.644359.3.579. 2.8 1955 Unknown [id number] 2.16.840.1.265333.3.579. 2. 1955 Unknown [id number] 2.16.840.1.349384.3.579. 2. 1955 Unknown [id number] 2.16.840.1.290030.3.579. 2. 1955 Unknown [id number] 2.16.840.1.700135.3.579. 2. 1955 Unknown [id number] 2.16.840.1.336053.3.579. 2. 1955 Unknown [id number] 2.16.840.1.300997.3.579. 2. 1955 Unknown [id number] 2.16.840.1.447623.3.579. 2. 1955 Unknown [id number] 2.16.840.1.193565.3.579. 2. 1955 Unknown [id number] 2.16.840.1.014884.3.579. 2. 1955 Unknown [id number] 2.16.840.1.760649.3.579. 2.727 1955 Unknown [id number] 2.16.840.1.679534.3.579. 2.727 Unknown Unknown [id number] 2.16.840.1.137461.3.579. 2.531 Unknown [id number] 2.16.840.1.004461.3.579. 2.531 Social History Date Type Detail Facility Start: 10-09-2023 End: 10-22-2023 Former smoker Former smoker Merged With [facility] [employer] Other Comment on above: quit as a teen; 1 daily; pop 1 daily; Start: 10-09-2023 End: 10-22-2023 Sex Assigned At Merged With [facility] [employer] Other Start: 09-30-2023 Tobacco smoking stat us NHIS Never smoked tobacco (finding) [facility] Start: 1955 Sex Assigned At Male F [facility] Start: 05-25-2023 End: 10-09-2023 Tobacco smoking status NHIS Ex-smoker [facility] History of tobacco use Current smoker [facility] History of tobacco use [facility] Start: 10-09-2023 Tobacco use and exposure Smokeless tobacco non-user [facility] [employer] [facility] Start: 10-09-2023 Alcohol intake Ex-drinker (finding) [facility] Childcare Unknown [facility] Start: 10-09-2023 Tobacco Comment Smoked for a s hort time as a teenager [facility] Start: 1955 Sex Assigned At Not on file [employer] [facility] Start: 10-22-2023 Alcohol intake Lifetime non-d gemma (finding) [facility] Work Phone: Start: 10-12-2023 End: 11-24-2023 Exposure to SARS-CoV-2 (event) Not sure [facility] Medical Equipment Procedure Code Equipment Code Equipment Origin al Text Equipment Identifier Dates CL STENT PACO 2. 25 X 18 FDA Start: 11-25-2021 Drug-eluting coronary artery stent, [id number]-xb lymer-coated ()[id number] FDA Start: 11-25-2021 Drug-eluting coronary artery stent, [id number]-px lymer-coated ()[id number] [id number] FDA Start: 11-25-2021 CL STENT PACO 2. 25 X 18 FDA Start: 11-25-2021 Clinical Notes 08-08-2021 to 04-26-2024 Addy Fuller DO - 10/22/2023 10:50 AM EDTPatient Mandie Brice, ZEYNEP-SLIP DUMPER - 10/09/2023 1:00 PM EDT Note Date & Type Note Facility 04-26-2024 Note Operative Report Diagnosis: Sacroiliitis, M46.1 Procedure: Bilateral diagnostic and therapeutic sacroiliac joint injections performed under fluoroscopic guidance Anesthesia: Local Complications: None After informed consent was obtained, the patient was brought back to the procedure room and placed in the prone position. Back areas prepped and draped in the usual sterile fashion using fluoroscopic guidance, the skin and subcutaneous tissues overlying the needle trajectory over the lower aspect of sacroiliac joint were anesthetized with 2% lidocaine. The 22-gauge Quincke needles were then introduced in the lower aspect of the sacroiliac joint. Injection of contrast under fluoroscopy revealed appropriate intra-articular spread. Thereafter, 4 mL of 0.5% bupivacaine with 40 mg of methylprednisolone were injected in divided doses between the bilateral sacroiliac joints. The needle was then removed. The patient tolerated procedure well. Patient was then transferred to the recovery room in stable condition. Follow-up: The patient will update us on the response to this procedure, and agrees to continue currently prescribed/recommended therapies. [facility] Comment on above: Result Comment: Elec tronically Signed By: García Castro DO.br\Date and Time Signed: 04/26/24 14:16 EDT 04-08-2024 Note Consultation Note Patient: BARRY GALDAMEZ Age: 68 years Sex: Male : 1955 Associated Diagnoses: None Author: Ariana Urena PA-C Subjective Chief complaint 04/08/2024 13:07 EDT Left lower back pain and Left shoulder pain . Patient is a 68-year-old male. He presents today for another follow-up after undergoing an L4-5 mild procedure. This was done on 02/23/2024 and he has obtained 60% relief. Patient's radicular symptoms are better. Unfortunate, he is still having bilateral buttock pain left side greater than right side. He also has some left shoulder pain. The buttock pain affects his ambulatory status. Affects his quality life. Affects his activities. Patient now wonders about what he can do to try to get this better as this is very bothersome to him. He did cut down on the gabapentin. He 100 mg 3 times a day. He is also using tramadol usually only once a day. He is doing this because of the buttock pain. He is hopeful to get the buttock pain under control and then he can hopefully continue to cut down on the medications. He is on therapy in the past that has not helped. He continues to do some stretching at home that has not helped. He is pleased with how his legs feel but his butt is bothering him. Health Status Allergies: Allergic Reactions (Selected) No Known Allergies, Allergies (1) Active Severity Reaction No Known Allergies None Documented Current medications: (Selected) Prescriptions Prescribed gabapentin 800 mg Tab: 800 mg = 1 tab(s), Oral, TID, X 30 day(s), # 90 tab(s), Refills(s) 2, [id number] 183, cm, 04/08/24 13:17:00 EDT, Height/Length Dosing, 110.9, kg, 04/08/24 13:17:00 EDT, Weight Dosing naloxone 0.4 mg/mL Inj: 0.4 mg = 1 mL, IntraMuscular, As Directed, for suspected overdose. (dispense 2 vials 0.4 mg/ml with syringes and needles for dose administration), # 1 kit(s), Refills(s) 0, [id number], 182.9, cm, 10/15/23 10:08:00 EDT, Height/Length... naloxone 4 mg/0.1 mL nasal spray: 4 mg, Nasal, As Directed, for suspected overdose symptoms, # 1 kit(s), Refills(s) 0, [id number], 182.9, cm, 10/15/23 10:08:00 EDT, Height/Length Dosing, 116.8, kg, 10/15/23 10:08:00 EDT, Weight Dosing traMADOL 50 mg Tab: 50 mg = 1 tab(s), Oral, Daily, take as needed for pain, X 30 day(s), # 30 tab(s), Refills(s) 0, [id number], 183, cm, 04/08/24 13:17:00 EDT, Height/Length Dosing, 110.9, kg, 04/08/24 13:17:00 EDT, Weight Dosing Documented Medications Documented Albuterol (Eqv-ProAir HFA) 90 mcg/inh inhalation aerosol: Refill(s) 0 Co Q-10: Daily, Refills(s) 0 Delsym: Refills(s) 0 Metoprolol tartrate 50 mg Tab: 50 mg = 1 tab(s), Oral, Daily, High blood pressure atorvastatin 80 mg Tab: 80 mg = 1 tab(s), Oral, Daily, # 30 tab(s), Refills(s) 0 clopidogrel 75 mg Tab: TAKE 1 TABLET BY MOUTH THURSDAY THROUGH THURSDAY gabapentin 800 mg Tab: Refills(s) 0 hydrOXYzine hydrochloride 25 mg Tab: Refills(s) 0 ketoconazole Top 2% Shampoo: Refill(s) 0 magnesium citrate oral tablet: Refill(s) 0 meloxicam 15 mg Tab: Refills(s) 0 potassium bicarbonate: Refills(s) 0 traZODONE 50 mg Tab: 50 mg = [...] All Problems HTN (hypertension) / SNOMED CT 6592597844 / Confirmed Hip pain, left / SNOMED CT 3260066157 / Confirmed DJD Nocturia / SNOMED CT 425294685 / Confirmed Asthma / SNOMED CT 652473856 / Confirmed Impingement syndrome of right shoulder / SNOMED CT 849884946 / Confirmed Carpal tunnel syndrome of right wrist / SNOMED CT 20758152 / Confirmed Osteoarthritis / SNOMED CT 3855899642 / Confirmed Arthritis / SNOMED CT 0709439 / Confirmed Depression / SNOMED CT 53778184 / Confirmed Hypertension / SNOMED CT 4606788034 / Confirmed Erectile dysfunction / SNOMED CT 3050057361 / Confirmed Asymptomatic microscopic hematuria / SNOMED CT 1200828863 / Confirmed Weak urine stream / SNOMED CT 853481380 / Confirmed Screening PSA (prostate specific antigen) / SNOMED CT 418380743 / Confirmed Foreign body in throat / SNOMED CT 14361461 / Confirmed Screen for colon cancer / SNOMED CT 487258257 / Confirmed Resolved: At risk for falls / SNOMED CT 715911539 Problem added when Risk for Falls Careplan was initiated. Resolved due to patient discharge. Objective Vital Signs 04/08/2024 13:07 EDT Peripheral Pulse Rate 69 bpm Respiratory Rate 20 br/min Systolic Blood Pressure 131 mmHg Diastolic Blood Pressure 70 mmHg Mean Arterial Pressure, Cuff 90 mmHg General: Alert and oriented, No acute distress. Eye: Normal conjunctiva. HENT: Normocephalic, Normal hearing. Cardiovascular: No edema. Musculoskeletal Normal range of motion. Normal strength. Pain with compressi (more content not included)... [facility] Comment on above: Result Comment: Elec tronically Signed By: Romel ARCE, Ariana\.br\Date and Time Signed: 04/08/24 13:27 EDT 03-07-2024 Note Progress Note-Physic lenore Patient: BARRY GALDAMEZ Age: 68 years Sex: Male : 1955 Associated Diagnoses: None Author: Shiraz FARFAN, Chad Madden Preoperative Information Anesthesia Preop Info: Time patient last ate or drank 02/23/2024 00:00:00. Anesthesia history: Patient history: None. Family history+: None. Informed consent: Signed by patient. Re-evaluation prior to induction: Initial evaluation reviewed: No significant change. Review of Systems Eye Ear/Nose/Mouth/Throat Respiratory: No shortness of breath, No cough. Cardiovascular: No chest pain. Musculoskeletal Neurologic Health Status Allergies: Allergic Reactions (Selected) No Known Allergies, Allergies (1) Active Severity Reaction No Known Allergies None Documented Current medications: (Selected) Prescriptions Prescribed Protonix 40 mg Tab-DR: 40 mg = 1 tab(s), Oral, Daily, # 30 tab(s), Refills(s) 7, Pharmacy: [facility] #[id number], 182.9, cm, 09/23/23 5:29:00 EST, Height/Length Dosing, 109.8, kg, 09/23/23 5:29:00 EST, Weight Dosing gabapentin 800 mg Tab: See Instructions, 1.5 tabs TID, # 135 tab(s), Refills(s) 0, Pharmacy: [facility][id number], 182.9, cm, 10/15/23 10:08:00 EDT, Height/Length Dosing, 116.8, kg, 10/15/23 10:08:00 EDT, Weight Dosing naloxone 0.4 mg/mL Inj: 0.4 mg = 1 mL, IntraMuscular, As Directed, for suspected overdose. (dispense 2 vials 0.4 mg/ml with syringes and needles for dose administration), # 1 kit(s), Refills(s) 0, [id number], 182.9, cm, 10/15/23 10:08:00 EDT, Height/Length... naloxone 4 mg/0.1 mL nasal spray: 4 mg, Nasal, As Directed, for suspected overdose symptoms, # 1 kit(s), Refills(s) 0, [id number], 182.9, cm, 10/15/23 10:08:00 EDT, Height/Length Dosing, 116.8, kg, 10/15/23 10:08:00 EDT, Weight Dosing Documented Medications Documented Co Q-10: Daily, Refills(s) 0 Metoprolol tartrate 50 mg Tab: 50 mg = 1 tab(s), Oral, Daily, High blood pressure atorvastatin 80 mg Tab: 80 mg = 1 tab(s), Oral, Daily, # 30 tab(s), Refills(s) 0 clopidogrel 75 mg Tab: TAKE 1 TABLET BY MOUTH THURSDAY THROUGH THURSDAY traZODONE 50 mg Tab: 50 mg = 1 tab(s), Oral, Once a day (at bedtime), # 30 tab(s), Refills(s) 0 tramadol 50 mg oral tablet: 50 mg = 1 tab(s), Oral, q12hr, PRN as needed for pain, Refills(s) 0, Pain valsartan 80 mg Tab: 80 mg = 1 tab(s), Oral, Daily, # 30 tab(s), Refills(s) 0, Home Medications (11) Active atorvastatin 80 mg Tab 80 mg = 1 tab(s), Oral, Daily clopidogrel 75 mg Tab Co Q-10 , Daily gabapentin 800 mg Tab See Instructions Metoprolol tartrate 50 mg Tab 50 mg = 1 tab(s), Oral, Daily naloxone 0.4 mg/mL Inj 0.4 mg = 1 mL, IntraMuscular, As Directed naloxone 4 mg/0.1 mL nasal spray 4 mg, Nasal, As Directed Protonix 40 mg Tab-DR 40 mg = 1 tab(s), Oral, Daily tramadol 50 mg oral tablet 50 mg = 1 tab(s), PRN, Oral, q12hr traZODONE 50 mg Tab 50 mg = 1 tab(s), Oral, Once a day (at bedtime) valsartan 80 mg Tab 80 mg = 1 tab(s), Oral, Daily , No qualifying data available Problem list: All Problems Arthritis / SNOMED CT 4870991 / Confirmed Asthma / SNOMED CT 400346595 / Confirmed Asymptomatic microscopic hematuria / SNOMED CT 0591961913 / Confirmed Carpal tunnel syndrome of right wrist / SNOMED CT 11368829 / Confirmed Depression / SNOMED CT 48928703 / Confirmed Erectile dysfunction / SNOMED CT 6100028814 / Confirmed Foreign body in throat / SNOMED CT 53825827 / Confirmed Hip pain, left / SNOMED CT 7437983702 / Confirmed DJD HTN (hypertension) / SNOMED CT 7263504657 / Confirmed Hypertension / SNOMED CT 2585540119 / Confirmed Impingement syndrome of right shoulder / SNOMED CT 579027285 / Confirmed Nocturia / SNOMED CT 231774994 / Confirmed Osteoarthritis / SNOMED CT 9294393439 / Confirmed Screen for colon cancer / SNOMED CT 173106546 / Confirmed Screening PSA (prostate specific antigen) / SNOMED CT 929518019 / Confirmed Weak urine stream /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
[2024-05-13 14:03] VITALS: PULSE 106; O2SAT 97
--- NOTE | 2024-05-13 14:03 | XR_ITS ---
The [address] [address] Patient Name: ZACHERY GALDAMEZ MRN: [id number] date: 1955 Sex: M Assigned Patient Location: ER Current Patient Location: Accession/Order Number: [id number] Exam Date: 05/13/2024 14:35 Report Date: 05/13/2024 15:12 At the request of: JOLYNN QUESADA Procedure: XR chest 2V EXAMINATION: XR chest 2V HISTORY: COUGH COMPARISON: XR chest 09/29/2023 FINDINGS: LUNGS: No significant pulmonary parenchymal abnormalities. VASCULATURE: No increased pulmonary vasculature. PLEURA: No pneumothorax, effusion, or pleural thickening. CARDIAC: No cardiomegaly or cardiac silhouette abnormality. MEDIASTINUM: No visible mass or adenopathy. BONES: No fracture or visible bone lesion. OTHER: Negative. XR/XR chest 2V IMPRESSION: 1. Hyperexpanded lungs. 2. No acute cardiac pulmonary process. Electronically authenticated by: JEAN-PAUL SALAS Date: 05/13/2024 15:12
[2024-05-13] MEDS: IPRATROPIUM/ALBUTEROL SULFATE 3 ML AMPUL.NEB IH (14:10)
[2024-05-13] MEDS: ACETAMINOPHEN 500 MG TABLET 1000 MG PO (14:16)
[2024-05-13 14:32] LABS: Influenza Virus A Antigen Negative; Influenza Virus B Antigen Negative; Internal Control Within Normal Limits; SARS-CoV-2 Ag NEGATIVE (NEGATIVE)
--- NOTE | 2024-05-13 14:56 | ED_ITS ---
HPI - URI/Sore Throat General Chief Complaint: Upper Respiratory Infection Stated Complaint: URTI COMPLAINTS/ GENERAL WEAKNESS Time Seen by Provider: 05/13/24 13:48 Source: patient Limitations: no limitations History of Present Illness HPI Narrative: 68-year-old male presents here with a chief complaint of shortness of breath. Patient states symptoms began yesterday. He does have a history of pulmonary fibrosis and states he has been out of his nebulizer medications. He complains of fever or chills at home. He took ibuprofen prior to arrival. He is otherwise in no distress. Lung sounds are diminished with scattered wheezing in itially. He is alert and oriented. Afebrile here at this time. Related Data Home Medications ?Medication ?Instructions ?Recorded ?Confirmed albuterol sulfate 90 mcg/actuation 2 puff inhalation Q8H PRN 09/22/23 05/13/24 aerosol inhaler shortness of breath or wheezing atorvastatin 80 mg tablet 80 mg PO DAILY 09/22/23 05/13/24 clopidogrel 75 mg tablet 75 mg PO QDAY 09/22/23 05/13/24 gabapentin 600 mg tablet 800 mg PO TID 09/22/23 05/13/24 metoprolol succinate 25 mg 50 mg PO DAILY 09/22/23 05/13/24 tablet,extended release 24 hr tramadol 50 mg tablet 50 mg PO BID PRN pain 09/22/23 05/13/24 valsartan 160 mg tablet 160 mg PO DAILY 09/22/23 05/13/24 meloxicam 15 mg tablet 15 mg PO DAILY 11/02/23 05/13/24 trazodone 50 mg tablet 50 mg PO DAILY 11/02/23 05/13/24 ciclopirox 0.77 % topical cream 1 applic topical Q12H 12/11/23 05/13/24 ciclopirox 1 % shampoo 5 ml topical DAILY 12/11/23 05/13/24 Previous Rx's ?Medication ?Instructions ?Recorded albuterol sulfate 2.5 mg/3 mL 2.5 mg (3 mL) inhalation Q6H PRN 05/13/24 (0.083 %) solution for nebulization shortness of breath or wheezing #75 mL azithromycin 250 mg tablet See Rx Instructions PO .COMPLEX #6 05/13/24 (Zithromax Z-Branden) tabs Allergies Allergy/AdvReac Type Severity Reaction Status Date / Time aspirin AdvReac Severe gi bleed Verified 11/02/23 13:58 Review of Systems ROS Narrative All Systems are negative except as noted/marked.All systems reviewed and otherwise negative PFSH PFSH Medical History (Updated 05/13/24 @ 14:54 by Kimmy Jenkins) Spinal stenosis ?M48.00 - Spinal stenosis, site unspecified (ICD-10) Shortness of breath ?R06.02 - Shortness of breath (ICD-10) Insomnia ?G47.00 - Insomnia, unspecified (ICD-10) Hypertension ?I10 - Essential (primary) hypertension (ICD-10) High cholesterol ?E78.00 - Pure hypercholesterolemia, unspecified (ICD-10) Chest pain ?R07.9 - Chest pain, unspecified (ICD-10) A-fib ?I48.91 - Unspecified atrial fibrillation (ICD-10) Arthritis ?M19.90 - Unspecified osteoarthritis, unspecified site (ICD-10) Surgical History (Updated 11/02/23 @ 13:55 by Mirta Robles RN) Hx of total hip arthroplasty ?Z96.649 - Presence of unspecified artificial hip joint (ICD-10) H/O shoulder surgery ?Z98.890 - Other specified postprocedural states (ICD-10) H/O colonoscopy ?Z98.890 - Other specified postprocedural states (ICD-10) History of carpal tunnel release ?Z98.890 - Other specified postprocedural states (ICD-10) H/O heart artery stent ?Z95.5 - Presence of coronary angioplasty implant and graft (ICD-10) H/O cardiac catheterization ?Z98.890 - Other specified postprocedural states (ICD-10) History of appendectomy ?Z90.49 - Acquired absence of other specified parts of digestive tract (ICD- 10) Family History (Updated 11/02/23 @ 13:56 by Mirta Robles, SANTHOSH) Other Arthritis Family history of hypertension Thyroid disease Social History (Updated 11/02/23 @ 14:13 by Mirta Robles, SANTHOSH) Within the past year, how often did you have a drink containing alcohol: never Score interpretation: A score less than 4 is consistent with normal alcohol consumption. Smoking status: Former smoker Nicotine containing products detail: smoked as a teenager Second hand tobacco smoke exposure: No Non-prescribed substance use: denies use Previous occupational history: retired Highest level of school completed/degree received: some college, no degree Exam Narrative Exam Narrative: Nurses note and vital signs reviewed and patient is not hypoxic. General: The patient appears well and in no apparent distress. Patient is resting comfortably on cart. Skin: Warm, dry, no pallor noted. There is no rash noted. Head: Normocephalic, atraumatic Eye: Normal conjunctiva, no drainage, EOMI. PERRL Respiratory: Patient is in no distress, no accessory muscle use, wheezing diminished to bases, no rales or rhonchi Back: non-tender, no CVA tenderness bilaterally to percussion. Musculoskeletal: The patient has no evidence of calf tenderness, no pitting edema, symmetrical pulses noted bilaterally Neurological: A&O x4, normal speech Psychiatric: Cooperative Constitutional Vital Signs, click to edit/add: Last Vital Signs Temp 99.2 F 05/13/24 13:35 Pulse 88 05/13/24 15:11 Resp 18 05/13/24 15:11 BP 128/88 05/13/24 15:11 Pulse Ox 98 05/13/24 15:11 O2 Del Method Room Air 05/13/24 14:03 Course Vital Signs Vital signs: Vital Signs Temperature 99.2 F 05/13/24 13:35 Pulse Rate 104 H 05/13/24 13:35 Respiratory Rate 20 05/13/24 13:35 Blood Pressure 171/65 H 05/13/24 13:35 Pulse Oximetry 99 05/13/24 13:35 Oxygen Delivery Method Room Air 05/13/24 13:35 Temperature 99.2 F 05/13/24 13:35 Pulse Rate 88 05/13/24 15:11 Respiratory Rate 18 05/13/24 15:11 Blood Pressure 128/88 05/13/24 15:11 Pulse Oximetry 98 05/13/24 15:11 Oxygen Delivery Method Room Air 05/13/24 14:03 MDM - URI/Sore Throat MDM Narrative Medical decision making narrative: Patient presented to the emergency room chief complaint upper respiratory infection, cough congestion and chills. Lab work including influenza and COVID were negative., Patient was medicated here with Tylenol and a DuoNeb breathing treatment. Symptoms did improve. Patient's chest x-ray also looks within normal limits. He will be treated for upper respiratory infection with Z-Branden as well as nebulizer medication of albuterol. Patient will follow-up primary care physician Differential Diagnosis Differential diagnosis: Likely upper respiratory infection, bronchitis, influenza and other Medical Records Attestation: I reviewed the patient's medical records. Lab Data Attestation: I reviewed the patient's lab results. Labs: Lab Results 05/13/24 Range/Units 14:04 Influenza Type A Ag Negative Influenza Type B Ag Negative SARS-CoV-2 Ag (CV2AG) Negative (NEGATIVE) Imaging Data Chest x-ray: Attestation: I have reviewed the pertinent imaging results. My impression: neg Radiologist's impression: ITS Impressions Chest X-Ray 05/13/24 14:03 IMPRESSION: 1. Hyperexpanded lungs. 2. No acute cardiac pulmonary process. Electronically authenticated by: JEAN-PAUL SALAS Date: 05/13/2024 15:12 Discharge Plan Discharge Chief Complaint: Upper Respiratory Infection Clinical Impression: Upper respiratory infection Patient Disposition: Home, Self-Care Time of Disposition Decision: 14:54 Condition: Good Prescriptions / Home Meds: New albuterol sulfate 2.5 mg /3 mL (0.083 %) solution for nebulization 2.5 mg inhalation Q6H PRN (Reason: shortness of breath or wheezing) Qty: 75 0RF azithromycin [Zithromax Z-Branden] 250 mg tablet See Rx Instructions .ROUTE .COMPLEX Qty: 6 0RF Rx Instructions: For 250 mg dose pack: take 500 mg today (day 1), then 250 mg for 4 days (days 2-5) No Action ciclopirox 0.77 % cream 1 applic TOPICAL Q12H ciclopirox 1 % shampoo 5 ml TOPICAL DAILY albuterol sulfate 90 mcg/actuation HFA aerosol inhaler 2 puff INHALATION Q8H PRN (Reason: shortness of breath or wheezing) atorvastatin 80 mg tablet 80 mg PO DAILY clopidogrel 75 mg tablet 75 mg PO QDAY gabapentin 600 mg tablet 800 mg PO TID metoprolol succinate 25 mg tablet extended release 24 hr 50 mg PO DAILY tramadol 50 mg tablet 50 mg PO BID PRN (Reason: pain) valsartan 160 mg tablet 160 mg PO DAILY meloxicam 15 mg tablet 15 mg PO DAILY trazodone 50 mg tablet 50 mg PO DAILY Print Language: Tamazight Referrals: QIANA MADDOX [Primary Care Provider] - 1 week Discharge Date/Time: 05/13/24 15:11
[2024-05-13 15:11] VITALS: BP 128/88; PULSE 88; O2SAT 98
== END 2024-05-13 15:11 | disposition home or self-care (01) ==
PROVIDERS: Physician Assistant; Emergency Provider Emergency Medicine; PCP Family Medicine
DX: J06.9 Acute upper respiratory infection, unspecified (principal); Z20.822 Contact with and (suspected) exposure to COVID-19; J84.10 Pulmonary fibrosis, unspecified; Z87.891 Personal history of nicotine dependence
CPT/HCPCS: 71046; 87804; 87811; 94640; 99284

== ENCOUNTER 2025-01-16 20:45 | Outpatient (OUT) | payer MEDICARE, MEDICAID, SELFPAY ==
--- OUTSIDE RECORDS SUMMARY | 2025-01-02 13:30 | XMS_ITS | Encounter Summary ---
Demographics Address [address] [place] [address] Mobile Phone Home Phone Preferred Language en Marital Status Christianity Affiliation Unknown Race White Ethnic Group Unknown Author Organization [facility] Address [address] [place] [address] Care Team Providers Care Automobile Tire Builder Name Role Phone Unavailable Primary Care Provider Unavailabl e Reason for Visit * Consultation (Routine) - Authorized Specialty Diagnoses / Procedures Referred By Teena alas Referred To Contact Physical Therapy Diagnoses Status post reverse arthroplasty of left shoulder Procedures [place] OFFICE/OUTPATIENT [facility] 60 MINUTES Inocencio Bo, DO [address] [place] [address] Phone: tel: fax: Margarita Andre PT Referral ID Status Reason Start Date Expiration Date Visits Requested Visits Authorized [id number] Authorized Consult and Treat 12/01/2024 07/19/2025 99 99 Encounter Details Date Type Department Care Team (Latest Contact Info) Description 01/02/2025 1:30 PM EDT Treatment [facility] [address] [facility] [address] [place] [address] Mc Alva PTA Localized osteoarthritis of left shoulder (Primary Dx); Status post reverse arthroplasty of left shoulder Social History Tobacco Use Types Packs/Day Years Used Date Smoking Tobacco: Never Smokeless Tobacco: Never Alcohol Use Standard Drinks/Week Comments Never 0 (1 standard drink = 0.6 oz pur e alcohol) Sex and Gender Information Value Date Recorded Sex Assigned at Not on file Legal Sex Male 6:56 PM EDT Gender Identity Not on file Sexual Orientation Not on file documented as of this encounter Progress Notes * Mc Alva PTA - 01/02/2025 1:30 PM EDT Images from the original note were not included. Physical Therapy Treatment Visit Patient Name: Barry Schofield Today's Date: 01/02/2025 Encounter Diagnoses Name Primary? Localized osteoarthritis of left shoulder Yes Status post reverse arthroplasty of left shoulder Visit number: 10 Timed Code Treatment: 40 minutes Total Treatment Time: 50 minutes Time In: 1320 Time Out: 1410 History: Pt presents to PT s/p left reverse TSA on October 24. Pt states he is right hand dominant. Pt states sling was discharged last week. Pt states he is taking pain medication as needed and no longer having to ice left shoulder. Still having some issues with sleeping due to left shoulder pain. Precautions: [place], [place], Left GRICEL Subjective: Pt states mild soreness in L shoulder. Pt reports improvements, decreased pain and improve shoulder mobility. Pain: 09/26 Objective: PT Evaluation (12/01/2024) Left SHOULDER AROM: 50 degrees flexion, 42 degrees abduction, lacks 12 degrees from neutral ER, IR to left buttock PROM: 92 degrees flexion, 70 degrees abduction, 8 degrees ER, IR WFL Strength: all MMT performed in neutral: ER and abduction 3-/5, flexion 3/5, IR 4-/5 Palpation: Moderate tenderness post shoulder and left UT Special Test: N/A Treatment: Manual Therapy: (8 minutes ) Passive ROM and STM. Joint mobilization, Soft Tissue Mobilization, Myofascial Release, Muscle Energy Technique, Neural Mobilization, Myofascial Cupping, Dry Needling, IASTM, and Scar mobilization as needed. Therapeutic Exercise: (32 minutes supervised ) Guided pt through ther and flex ex per grid to improve left UE / shoulder Strength, Endurance, Flexibility, ROM, HEP, Neural Mobilization, Power, and Core Stability as needed Therapeutic Activity: Exercises to improve dynamic activities, functional tasks, functional mobility to return to prior activity level as needed. Neuromuscular re-education: Balance Training, Muscle Facilitation, Dynamic Stability, Core Stabilization, and Blood Flow Restriction Training (BFRT) as needed. Modalities: (10 minutes) Post session pt supine CP to left shoulder for symptom control. Assessment: Pt has completed 10 PT sessions following left reverse TSA on 10-24-24. 10 weeks P.O, continues to demo strength and ROM limited in all planes. Able to increase reps this date with mild fatigue noted with exercises. Requires occasional cueing for proper form and technique. Pt shoulder was fatigued post session. Slow progression towards LTGs. 02-07-[address] Bo Outcome Measure: Upper Extremity Functional Index (UEFI): 54/80, (12/29/24) 64/80 Rehab Diagnosis: left shoulder pain and weakness, decrease ROM and mobility left shoulder pain Short Term Goal: To be met in 2 weeks Goal 1: Pt to be instructed in home exercise program. Skilled Nursing Goals: To be met in 10 weeks Goal 1: Pt to report independence and compliance with home program. Goal 2: Pt to achieve 110 degrees of left shoulder flexion to assist with overhead reaching. Goal 3: Pt to achieve 90 degrees of left shoulder abduction to assist with grooming hair. Goal 4: Pt to achieve 4/5 strength left shoulder in all planes to assist with functional tasks and lifting. Goal 5: Pt to score no less than 70/80 on UEFI indicating improved QOL. Pt will benefit from skilled PT for 2x/week from 12/01/2024 to 02/09/2025 to address the above impairments. I hereby deem this POC medically necessary. Please sign below. Date: Cosigned by Margarita Andre PT at 01/03/2025 9:18 AM EDT documented in this encounter Plan of Treatment Upcoming Encounters Date Type Department Care Team (Late st Contact Info) Description 01/19/2025 1:30 PM EDT Treatment [facility] [address] [facility] [address] [place] [address] Mc Alva PTA 01/26/2025 1:30 PM EDT Treatment [facility] [address] [place] [address] Margarita Andre PT 02/07/2025 2:00 PM EDT Office Visit [facility] [address] [place] [address] Inocencio Bo, DO [address] [place] [address] documented as of this encounter Visit Diagnoses Diagnosis Localized osteoarthritis of left shoulder- Primary Status post reverse arthroplasty of left shoulder documented in this encounter
--- OUTSIDE RECORDS SUMMARY | 2025-01-09 13:30 | XMS_ITS | Encounter Summary ---
Demographics Address [address] [place] [address] Mobile Phone Home Phone Preferred Language en Marital Status Judaism Affiliation Unknown Race White Ethnic Group Unknown Author Organization [facility] Address [address] [place] [address] Care Team Providers Care Porcelain Turner Name Role Phone Unavailable Primary Care Provider Unavailabl e Reason for Visit * Consultation (Routine) - Authorized Specialty Diagnoses / Procedures Referred By Teena alas Referred To Contact Physical Therapy Diagnoses Status post reverse arthroplasty of left shoulder Procedures [place] OFFICE/OUTPATIENT [facility] 60 MINUTES Inocencio Bo, DO [address] [facility] [address] Phone: tel: fax: Margarita Andre PT Referral ID Status Reason Start Date Expiration Date Visits Requested Visits Authorized [id number] Authorized Consult and Treat 12/01/2024 07/19/2025 99 99 Encounter Details Date Type Department Care Team (Latest Contact Info) Description 01/09/2025 1:30 PM EDT Treatment [facility] [address] [facility] [address] [place] [address] Callie Mckeznie PTA Localized osteoarthritis of left shoulder (Primary [...] as of this encounter Progress Notes * Callie Mckenzie PTA - 01/09/2025 1:30 PM EDT Images from the original note were not included. Physical Therapy Treatment Visit Patient Name: Barry Schofield Today's Date: 01/09/2025 Encounter Diagnoses Name Primary? Localized osteoarthritis of left shoulder Yes Status post reverse arthroplasty of left shoulder Visit number: 11 Timed Code Treatment: 41 minutes Total Treatment Time: 57 minutes Time In: 1:30 PM Time Out: 2:27 PM History: Pt presents to PT s/p left reverse TSA on October 24. Pt states he is right hand dominant. Pt states sling was discharged last week. Pt states he is taking pain medication as needed and no longer having to ice left shoulder. Still having some issues with sleeping due to left shoulder pain. Precautions: [place], [place], Left GRICEL Subjective: Pt states mild [...] UT Special Test: N/A Treatment: Manual Therapy: (prn) Passive ROM and STM. Joint mobilization, Soft Tissue Mobilization, MyofascialRelease, Muscle Energy Technique, Neural Mobilization, Myofascial Cupping, Dry Needling, IASTM, andScar mobilization as needed. Therapeutic Exercise: (31 minutes supervised ) Guided pt through ther and flex ex per grid to improve left UE / shoulder Strength, Endurance, Flexibility, ROM, HEP, Neural Mobilization, Power, and Core Stability as needed UBE/ Pulleys (6 minutes ) Therapeutic Activity: (10 minutes supervised) Exercises to improve dynamic activities, functional tasks, functional mobility to return to prior activity level as needed. Neuromuscular re-education: Balance Training, Muscle Facilitation, Dynamic Stability, Core Stabilization, and Blood Flow Restriction Training (BFRT) as needed. Modalities: (10 minutes) Post session pt supine CP to left shoulder for symptom control. Assessment: Pt has completed 11 PT sessions following left reverse TSA on 10-24-24. Continues to demo strength and ROM limited in all planes. Able to increase reps this date with mild fatigue noted with exercises.Requires occasional cueing for proper form and technique. Pt shoulder was fatigued post session. Reeducated pt on importance of performing HEP Slow progression towards LTGs. 02-07-[address] Bo Outcome Measure: Upper Extremity Functional Index (UEFI): 54/80, (12/29/24) 64/80 Rehab Diagnosis: left shoulder pain and weakness, decrease ROM and mobility left shoulder pain Short Term Goal: To be met in 2 weeks Goal 1: Pt to be instructed in home exercise program. Detention Goals: To be met in 10 weeks [...] Date: Cosigned by Margarita Andre PT at 01/09/2025 2:45 PM EDT documented in this encounter Plan of Treatment Upcoming Encounters Date Type Department Care Team (Late st Contact Info) Description 01/19/2025 1:30 PM EDT Treatment [facility] [address] [facility] [address] [place] [address] Mc Alva, RAYMOND 01/26/2025 1:30 PM EDT Treatment [facility] [address] [place] [address] [place] [address] Margarita Andre, NAYANA 02/07/2025 2:00 PM EDT Office Visit [facility] [address] [facility] [place] [phone] Inocencio Bo DO [address] [place] [address] documented as of this encounter Visit Diagnoses Diagnosis Localized osteoarthritis of left shoulder- Primary Status post reverse arthroplasty of left shoulder documented in this encounter
--- OUTSIDE RECORDS SUMMARY | 2025-01-12 13:30 | XMS_ITS | Encounter Summary ---
Demographics Address [address] [place] [address] Mobile Phone Home Phone Preferred Language en Marital Status Caodaism Affiliation Unknown Race White Ethnic Group Unknown Author Organization [facility] Address [address] [place] [address] Care Team Providers Care Reversal Print Inspector Name Role Phone Unavailable Primary Care Provider Unavailabl e Reason for Visit * Consultation (Routine) - Authorized Specialty Diagnoses / Procedures Referred By Teena alas Referred To Contact Physical Therapy Diagnoses Status post reverse arthroplasty of left shoulder Procedures [place] OFFICE/OUTPATIENT [facility] 60 MINUTES Inocencio Bo, DO [address] [place] [address] Phone: tel: fax: Margarita Andre PT Referral ID Status Reason Start Date Expiration Date Visits Requested Visits Authorized [id number] Authorized Consult and Treat 12/01/2024 07/19/2025 99 99 Encounter Details Date Type Department Care Team (Latest Contact Info) Description 01/12/2025 1:30 PM EDT Treatment [facility] [address] [facility] [address] [place] [address] Lance Centeno PTA Localized osteoarthritis of left shoulder (Primary [...] as of this encounter Progress Notes * Lance Centeno PTA - 01/12/2025 1:30 PM EDT Images from the original note were not included. Physical Therapy Treatment Visit Patient Name: Barry Schofield Today's Date: 01/12/2025 Encounter Diagnoses Name Primary? Localized osteoarthritis of left shoulder Yes Status post reverse arthroplasty of left shoulder Visit number: 12 Timed Code Treatment: 40 minutes Total Treatment Time: 58 minutes Time In: 1:30 PM Time Out: 2:28 PM History: Pt presents to PT s/p left reverse TSA on October 24. Pt states he is right hand dominant. Pt states sling was discharged last week. Pt states he is taking pain medication as needed and no longer having to ice left shoulder. Still having some issues with sleeping due to left shoulder pain. Precautions: [place], [place], Left GRICEL Subjective: Pt states mild soreness in L shoulder. Pt reports shoulder improvement with PT. Pain: 09/26 Objective: PT Evaluation (12/01/2024) Left [...] IASTM, andScar mobilization as needed. Therapeutic Exercise: (30 minutes supervised, 38 minutes total) Guided pt through ther and flex ex per grid to improve left UE / shoulder Strength, Endurance, Flexibility, ROM, HEP, Neural Mobilization, Power, and Core Stability as needed Therapeutic Activity: (10 minutes supervised) Exercises to improve dynamic activities, functional tasks, functional mobility to return to prior activity level as needed. Neuromuscular re-education: Balance Training, Muscle Facilitation, Dynamic Stability, Core Stabilization, and Blood Flow Restriction Training (BFRT) as needed. Modalities: (10 minutes) Post session pt supine CP to left shoulder for symptom control. Assessment: Pt has completed 12 PT sessions following left reverse TSA on [...] to be instructed in home exercise program. Line Therapist Goals: To be met in 10 weeks [...] Date: Cosigned by Margarita Andre PT at 01/13/2025 11:51 AM EDT documented in this encounter Plan of Treatment Upcoming Encounters Date Type Department Care Team (Late st Contact Info) Description 01/19/2025 1:30 PM EDT Treatment [facility] [address] [place] [address] Mc Alva, RAYMOND 01/26/2025 1:30 PM EDT Treatment [facility] [address] [place] [address] Margarita Andre, NAYANA 02/07/2025 2:00 PM EDT Office Visit [facility] [address] [place] [phone] Inocencio Bo, DO [address] [place] [address] documented as of this encounter Visit Diagnoses Diagnosis Localized osteoarthritis of left shoulder- Primary Status post reverse arthroplasty of left shoulder documented in this encounter
--- OUTSIDE RECORDS SUMMARY | 2025-01-16 13:30 | XMS_ITS | Encounter Summary ---
Author Organization [facility] Address [address] [place] [address] Care Team Providers Care Health And Safety Advisor Name Role Phone Unavailable Primary Care Provider Unavailabl e Reason for Visit * Consultation (Routine) - Authorized Specialty Diagnoses / Procedures Referred By Teena alas Referred To Contact Physical Therapy Diagnoses Status post reverse arthroplasty of left shoulder Procedures [place] OFFICE/OUTPATIENT [facility] 60 MINUTES Inocencio Bo, DO [address] [place] [address] Phone: tel: fax: Margarita Andre PT Referral ID Status Reason Start Date Expiration Date Visits Requested Visits Authorized [id number] Authorized Consult and Treat 12/01/2024 07/19/2025 99 99 Encounter Details Date Type Department Care Team (Latest Contact Info) Description 01/16/2025 1:30 PM EDT Treatment [facility] [address] [facility] [address] [place] [address] Mc Alva PTA Localized osteoarthritis of left [...] on file documented as of this encounter Plan of Treatment Upcoming Encounters Date Type Department Care Team (Late st Contact Info) Description 01/19/2025 1:30 PM EDT Treatment [facility] [address] [facility] [address] [place] [address] Mc Alva PTA 01/26/2025 1:30 PM EDT Treatment [facility] [address] [facility] [address] [place] [address] Margarita Andre, PT 02/07/2025 2:00 PM EDT Office Visit [facility] [address] [place] [address] Inocencio Bo, DO [address] [place] [address] documented as of this encounter Visit Diagnoses Diagnosis Localized osteoarthritis of left shoulder- Primary Status post reverse arthroplasty of left shoulder documented in this encounter
--- OUTSIDE RECORDS SUMMARY | 2025-01-16 20:48 | XMS_ITS | Encounter Summary ---
Author Organization [facility] Address [address] [place] [address] Phone Care Team Providers Care Clothes Ironer Name Role Phone Joe Marc Primary Care Provider [phone] Joe Marc Primary Care Provider [phone] Encounter Details Date Type Department Care Team (Late st Contact Info) Description 09/30/2023 Scanned Document [facility] [address] [place] [phone] Scanning, Generic Provider Social History Tobacco Use Types Packs/Day Years Used Date Smoking Tobacco: Former Cigarettes Alcohol Use Standard Drinks/Week Comments Never 0 (1 standard drink = 0.6 oz pur e alcohol) Sex and Gender Information Value Date Recorded Sex Assigned at Not on file Legal Sex Male 6:18 AM EST Gender Identity Not on file Sexual Orientation Not on file documented as of this encounter Plan of Treatment Upcoming Encounters Date Type Department Care Team (Late st Contact Info) Description 02/28/2025 1:10 PM EDT Office Visit [facility] [address] [facility] [address] [place] [address] Addy Fuller DO [address] [facility] [address] [place] [address] documented as of this encounter Procedures Procedure Name Priority Date/Time Associated Diagnosis Comments CARDIAC CATHETERIZATION PROCEDURE - ONBASE SCAN 09/30/2023 ECHOCARDIOGRAM 09/30/2023 documented in this encounter Results * CARDIAC CATHETERIZATION PROCEDURE - ONBASE SCAN (09/30/2023) Narrative 09/30/2023 Ordered by an unspecified provider. us Generic Provider Scanning CV CARDIAC CATH PROCED URES Final Result * ECHOCARDIOGRAM (09/30/2023) Narrative 09/30/2023 Ordered by an unspecified provider. us Generic Provider Scanning CV ECHO PROCEDURES Fin al Result documented in this encounter Visit Diagnoses Not on filedocumented in this encounter Care Teams Clothes Ironer Relationship Specialty Start Date End Date Joe Marc DO PCP - General 12/09/21 10/21/23 [place] [address] [place] [address] PCP - General Family Medicine 10/22/23 documented as of this encounter
--- OUTSIDE RECORDS SUMMARY | 2025-01-16 20:48 | XMS_ITS | Encounter Summary ---
Author Organization [facility] Address [address] [place] [address] Phone Care Team Providers Care Center Specialists Name Role Phone Joe Marc DO Primary Care Provider [phone] Joe Marc DO Primary Care Provider [phone] Encounter Details Date Type Department Care Team (Late st Contact Info) Description 10/01/2023 Scanned Document [facility] [address] [place] [address] Scanning, Generic Provider Social History Tobacco Use [...] Description 02/28/2025 1:10 PM EDT Office Visit [facility] [address] [facility] [address] [place] [address] Addy Fuller DO [address] [facility] [address] [place] [address] documented as of this encounter Visit Diagnoses Not on filedocumented in this encounter Care Teams Center Specialists Relationship Specialty Start Date End Date Joe Marc DO PCP - General 12/09/21 10/21/23 Joe Marc DO [address] [place] [address] PCP - General Family Medicine 10/22/23 documented as of this encounter
--- OUTSIDE RECORDS SUMMARY | 2025-01-16 20:48 | XMS_ITS | Encounter Summary ---
Author Organization [facility] Address [address] [place] [address] Care Team Providers Care Peer Support Specialist Name Role Phone Unavailable Primary Care Provider Unavailabl e Encounter Details Date Type Department Care Team (Latest Contact Info) Description 01/02/2025 Travel Social History Tobacco Use Types Packs/Day Years [...] Treatment [facility] [address] [facility] [address] [place] [address] Mc Alva, PRE OWNED SALES CONSULTANT 01/26/2025 1:30 PM EDT Treatment [facility] [address] [facility] [address] [place] [address] Margarita Andre, PT 02/07/2025 2:00 PM EDT Office Visit [facility] [address] [place] [phone] Inocencio Bo, DO [address] [place] [address] documented as of this encounter Visit Diagnoses Not on filedocumented in this encounter
--- OUTSIDE RECORDS SUMMARY | 2025-01-16 20:48 | XMS_ITS | Encounter Summary ---
Demographics Address [address] [place] [address] Home Phone Email Address Preferred Language Setswana Marital Status Jehovah'S Witness Affiliation Unknown Race White Ethnic Group Unknown Author Organization [employer] Address [id number] [address] [place] [address] Care Team Providers Care Coining Press Operator Name Role Phone Joe Marc DO Primary Care Provider Reason for Visit * Reason Comments Med Refill Encounter Details Date Type Department Care Team (Late st Contact Info) Description 01/03/2024 Refill [facility] [address] [place] [address] Inocencio Elias DO [address] [place], [place] [id number] Social History Tobacco Use Types Packs/Day Years Used Date Smoking Tobacco: Former Cigarettes Smokeless Tobacco: Never Comments:Smoked for a short time as a teenager Alcohol Use Standard Drinks/Week Comments Not Currently 0 (1 standard drink = 0.6 oz pur e alcohol) Childcare Answer Date Recorded Childcare Unknown 12/29/2018 Employment Answer Date Recorded Employment Unknown 12/29/2018 Hunger Screening Answer Date Recorded Within the past 12 months we worried whether our food would run out before we got money to buy more. Never True 10/09/2023 Food Insecurity - Inability Not on file 09/18 Sex and Gender Information Value Date Recorded Sex Assigned at Not on file Legal Sex Male 11:54 AM EDT Gender Identity Not on file Sexual Orientation Not on file documented as of this encounter Plan of Treatment Not on file documented as of this encounter Visit Diagnoses Not on filedocumented in this encounter Care Teams Coining Press Operator Relationship Specialty Start Date End Date Joe Marc DO [address] [place], [place] [id number] PCP - General Family Medicine 09/21/23 documented as of this encounter
--- OUTSIDE RECORDS SUMMARY | 2025-01-16 20:48 | XMS_ITS | Encounter Summary ---
Author Organization [facility] Address [address] [place] [address] Care Team Providers Care Floor Installer Name Role Phone Unavailable Primary Care Provider Unavailabl e Encounter Details Date Type Department Care Team (Latest Contact Info) Description 01/09/2025 Travel Social History Tobacco Use Types Packs/Day [...] [address] [facility] [address] [place] [address] Mc Alva, MANUFACTURING QUALITY TECHNICIAN 01/26/2025 1:30 PM EDT Treatment [facility] [address] [facility] [address] [place] [address] Margarita Andre, PT 02/07/2025 2:00 PM EDT Office Visit [facility] [address] [place] [address] Incoencio Bo, DO [address] [place] [address] documented as of this encounter Visit Diagnoses Not on filedocumented in this encounter
--- OUTSIDE RECORDS SUMMARY | 2025-01-16 20:48 | XMS_ITS | Clinical Summary ---
Author Organization [facility] Healthcare Address [address] [place] [address] Care Team Providers Care Business Transformation Manager Name Role Phone Unavailable Primary Care Provider Unavailabl e Allergies Active Allergy Reactions Criticality Noted Date Comments Aspirin GI bleeding 05/25/2023 Medications Ventolin HFA 108 (90 Base) MCG/ACT inhaler Inhale 2 puffs every 6 (six) hours if needed Active atorvastatin (Lipitor) 80 MG tablet Take 80 mg by mouth at bedtime 4 Active benzonatate (Tessalon) 100 MG capsule 4 Active Breztri Aerosphere 160-9-4.8 MCG/ACT aerosol Inhale 2 puffs in the morning and 2 puffs in the evening. 4 Active gabapentin (Neurontin) 800 MG tablet Take 800 mg by mouth in the morning and 800 mg at noon and 800 mg in the evening. 3 Active hydrOXYzine HCl (Atarax) 25 MG tablet 25 mg 4 Active levoFLOXacin (Levaquin) 500 MG tablet 500 mg 4 Active meloxicam (Mobic) 15 MG tablet Take 15 mg by mouth in the morning. 3 Active metoprolol succinate XL (Toprol-XL) 50 MG 24 hr tablet Take 50 mg by mouth in the morning. 4 Active naloxone (Narcan) 4 mg/0.1 mL nasal spray 4 Active pantoprazole (ProtoNix) 40 MG EC tablet Take 40 mg by mouth Daily Active Sodium Sulfate-Mag Sulfate-KCl (Sutab) 4312-799-171 MG tablet 4 Active tadalafil (Cialis) 20 MG tablet Take 20 mg by mouth Daily as needed Active traZODone (Desyrel) 50 MG tablet Take 50 mg by mouth at bedtime Active valsartan (Diovan) 160 MG tablet Take 160 mg by mouth in the morning. 4 Active ketoconazole (NIZOral) 2 % shampoo 3 Active nitroglycerin (Nitrostat) 0.4 MG SL tablet Active traMADol (Ultram) 50 MG tablet 50 mg 3 Active meclizine (Antivert) 25 MG tablet Take 25 mg by mouth in the morning and 25 mg in the evening and 25 mg before bedtime. Active clopidogrel (Plavix) 75 MG tablet Take 75 mg by mouth Daily 5 Active ciclopirox (Loprox) 0.77 % creamIndicatio ns:Other seborrheic dermatitis APPLY THIN LAYER TO AFFECTED AREA ONCE A DAY FOR 30 DAYS 30 g 5 Active Ciclopirox 1 % shampooIndicat ions:Other seborrheic dermatitis LATHER ON WET HAIR,LEAVE ON FOR 5 MINUTES,THEN RINSE 2 TO 3 TIMES PER WEEK FOR 30 DAYS 120 mL 5 Active ciclopirox (Loprox) 0.77 % creamIndicatio ns:Other seborrheic dermatitis APPLY THIN LAYER TO AFFECTED AREA ONCE A DAY FOR 30 DAYS 30 g 5 025 Discontinued Ciclopirox 1 % shampooIndicat ions:Other seborrheic dermatitis LATHER ON WET HAIR,LEAVE ON FOR 5 MINUTES,THEN RINSE 2 TO 3 TIMES PER WEEK FOR 30 DAYS 120 mL 5 025 Discontinued Active Problems No known active problems Encounters Date Type Department Care Team Description 01/16/2025 1:30 PM EDT Treatment [facility] [address] [facility] [address] [place] [address] Mc Alva PTA Localized osteoarthritis of left shoulder (Primary Dx); Status post reverse arthroplasty of left shoulder 01/16/2025 Bamboo flowsheet [facility] [address] [facility] [address] [place] [address] Mc Alva PTA 01/16/2025 Travel 01/12/2025 1:30 PM EDT Treatment [facility] [address] [place] [address] Lance Centeno, FUEL YARD OPERATOR Localized osteoarthritis of left shoulder (Primary Dx); Status post reverse arthroplasty of left shoulder 01/12/2025 Bamboo flowsheet [facility] [address] [place] [address] Lance Centeno, FUEL YARD OPERATOR 01/12/2025 Travel 01/09/2025 1:30 PM EDT Treatment [facility] [address] [place] [address] Callie Mckenzie, FUEL YARD OPERATOR Localized osteoarthritis of left shoulder (Primary Dx); Status post reverse arthroplasty of left shoulder 01/09/2025 Bamboo flowsheet [facility] [address] [place] [address] Callie Mckenzie, FUEL YARD OPERATOR 01/09/2025 Travel 01/02/2025 1:30 PM EDT Treatment [facility] [address] [place] [address] Mc Alva, FUEL YARD OPERATOR Localized osteoarthritis of left shoulder (Primary Dx); Status post reverse arthroplasty of left shoulder 01/02/2025 Bamboo flowsheet [facility] [address] [place] [address] Mc Alva, FUEL YARD OPERATOR 01/02/2025 Travel 12/29/2024 1:30 PM EDT Treatment [facility] [address] [place] [address] Mc Alva, FUEL YARD OPERATOR Localized osteoarthritis of left shoulder (Primary Dx); Status post reverse arthroplasty of left shoulder 12/29/2024 Bamboo flowsheet [facility] [address] [place] [address] Mc Alva, FUEL YARD OPERATOR 12/29/2024 Travel 12/26/2024 1:30 PM EDT Treatment [facility] [address] [place] [address] Callie Mckenzie, FUEL YARD OPERATOR Localized osteoarthritis of left shoulder (Primary Dx); Status post reverse arthroplasty of left shoulder 12/26/2024 Bamboo flowsheet [facility] [address] [place] [address] Callie Mckenzie, FUEL YARD OPERATOR 12/26/2024 Travel 12/25/2024 Refill [facility] [address] [place] [phone] Yumiko De La Rosa PA Other seborrheic dermatitis 12/23/2024 1:30 PM EDT Treatment [facility] [address] [place] [address] Mc Alva, FUEL YARD OPERATOR Localized osteoarthritis of left shoulder (Primary Dx); Status post reverse arthroplasty of left shoulder 12/23/2024 Bamboo flowsheet [facility] [address] [place] [address] Mc Alva, FUEL YARD OPERATOR 12/23/2024 Travel 12/20/2024 1:30 PM EDT Treatment [facility] [address] [place] [address] Margarita Andre, PT Localized osteoarthritis of left shoulder (Primary Dx); Status post reverse arthroplasty of left shoulder 12/20/2024 Bamboo flowsheet [facility] [address] [place] [address] Margarita Andre, PT 12/20/2024 Travel 12/15/2024 1:30 PM EDT Treatment [facility] [address] [place] [address] Margarita Andre, PT Localized osteoarthritis of left shoulder (Primary Dx); Status post reverse arthroplasty of left shoulder 12/15/2024 Travel 12/13/2024 1:30 PM EDT Treatment [facility] [address] [place] [address] Margarita Andre, PT Localized osteoarthritis of left shoulder (Primary Dx); Status post reverse arthroplasty of left shoulder 12/13/2024 Bamboo flowsheet [facility] [address] [place] [address] Margarita Andre, PT 12/13/2024 Travel 12/08/2024 1:30 PM EDT Treatment [facility] [address] [place] [address] Mc Alva, FUEL YARD OPERATOR Localized osteoarthritis of left shoulder (Primary Dx); Status post reverse arthroplasty of left shoulder 12/08/2024 Bamboo flowsheet [facility] [address] [place] [address] Mc Alva, FUEL YARD OPERATOR 12/08/2024 Travel 12/05/2024 1:00 PM EDT Treatment [facility] [address] [place] [address] Lance Centeno, FUEL YARD OPERATOR Localized osteoarthritis of left shoulder (Primary Dx); Status post reverse arthroplasty of left shoulder 12/05/2024 Bamboo flowsheet [facility] [address] [place] [address] Lance Centeno, FUEL YARD OPERATOR 12/05/2024 Travel 12/01/2024 2:30 PM EDT Evaluation [facility] [address] [place] [address] Margarita Andre, PT Localized osteoarthritis of left shoulder (Primary Dx); Status post reverse arthroplasty of left shoulder 12/01/2024 Plan of Care Documentation [facility] [address] [place] [address] 12/01/2024 Bamboo flowsheet [facility] [address] [facility] [address] [place] [address] Margarita Andre, PT 12/01/2024 Travel 11/27/2024 Refill [facility] [address] [place] [address] Yumiko De La Rosa PA Other seborrheic dermatitis 11/24/2024 2:00 PM EDT Office Visit [facility] [address] [place] [address] Inocencio Bo, Status post reverse arthroplasty of left shoulder (Primary Dx) 11/24/2024 11:35 AM EDT Ancillary Procedure [facility] [address] [place] [address] 11/24/2024 Travel 11/01/2024 Telephone [facility] [address] [place] [address] Shoshana Cruz RN 10/29/2024 Refill [facility] [address] [place] [address] Yumiko De La Rosa PA Other seborrheic dermatitis 10/27/2024 Telephone [facility] [address] [place] [address] Shoshana Cruz, SANTHOSH PO question 10/24/2024 Clinisync Result Encounter [facility] External Department Unsolicited Inocencio Bo, DO from Last 3 Months Social History Tobacco Use Types Packs/Day Years Used Date Smoking Tobacco: Never Smokeless Tobacco: Never Tobacco Cessation:Counseling Given: Not Answered Alcohol Use Standard Drinks/Week Comments Never 0 (1 standard drink = 0.6 oz pur e alcohol) Sex and Gender Information Value Date Recorded Sex Assigned at Not on file Legal Sex Male 6:56 PM EDT Gender Identity Not on file Sexual Orientation Not on file Last Filed Vital Signs Vital Sign Reading Time Taken Comments Blood Pressure 128/70 07/01/2018 12:00 PM EST Pulse - - Temperature - - Respiratory Rate - - Oxygen Saturation - - Inhaled Oxygen Concentration - - Weight 108 kg (238 lb) 11/24/2024 1:51 PM EDT Height 182.9 cm (6') 11/24/2024 1:51 PM EDT Body Mass Index 32.28 11/24/2024 1:51 PM EDT Plan of Treatment Upcoming Encounters Date Type Department Care Team (Late st Contact Info) Description 01/19/2025 1:30 PM EDT Treatment [facility] [address] [place] [address] Mc Alva, FUEL YARD OPERATOR 01/26/2025 1:30 PM EDT Treatment [facility] [address] [place] [address] Margarita Andre, PT 02/07/2025 2:00 PM EDT Office Visit [facility] [address] [place] [address] Inocencio Bo, [address] [place] [address] Procedures Procedure Name Priority Date/Time Associated Diagnosis Comments XR SHOULDER 2+ VIEWS LEFT Routine 11/24/2024 11:31 AM EDT Status post reverse arthroplasty of left shoulder XR SHOULDER COMPLETE LEFT 10/24/2024 10:23 AM EDT from Last 3 Months Results * XR shoulder 2+ views left (11/24/2024 11:31 AM EDT) Anatomical Region Laterality Modality Upper Extremities, Shoulder Left Radi ographic Imaging Narrative 12/01/2024 3:49 PM EDT Imaging Result: X-rays and imaging permanently saved to the patient's record were reviewed shows stable position and alignment of the reverse arthroplasty. No sign of subluxation or dislocation seen. Inocencio Bo DO IMG XR PROCEDURES Final Resu lt * XR SHOULDER COMPLETE LEFT (10/24/2024 10:23 AM EDT) Anatomical Region Laterality Modality Other 10/24/2024 10:2 3 AM EDT Narrative 10/24/2024 10:44 AM EDT Exam Date/Time: 10/24/2024 10:38 EDT Reason for Exam: Post Op Report IMPRESSION: NEGATIVE POSTOPERATIVE LEFT SHOULDER. CLINICAL HISTORY: Post Op COMPARISON: NONE FINDINGS: 2 views. Patient is undergone bipolar noncemented left shoulder replacement. No fracture. No abnormal lucency bone prosthetic interface. Ordering Provider: Inocencio Bo FINAL REPORT Dictated: 10/24/2024 10:40 am Edilberto Cortes MD Signed (Electronic Signature): 10/24/2024 10:40 am Signed by: Edilberto oCrtes MD Transcribed by: TAWANDA Technologist: MARTHA Procedure Note Radiology, Radiologist, MD - 10/24/2024 Exam Date/Time: 10/24/2024 10:38 EDT Reason for Exam: Post Op Report IMPRESSION: NEGATIVE POSTOPERATIVE LEFT SHOULDER. CLINICAL HISTORY: Post Op COMPARISON: NONE FINDINGS: 2 views. Patient is undergone bipolar noncemented leftshoulder replacement. No fracture. No abnormal lucency bone prosthetic interface. Ordering Provider: Inocencio Bo FINAL REPORT Dictated: 10/24/2024 10:40 am Edilberto Cortes MD Signed (Electronic Signature): 10/24/2024 10:40 am Signed by: Edilberto Cortes MD Transcribed by: TAWANDA Technologist: MARTHA Inocencio Bo DO [facility] Final Resu lt from Last 3 Months Insurance * Guarantor: Barry Schofield Account Type Relation to Patient Date of Phone Billing Address Personal/Family Self 1955 [address] [place] [address] [employer] MEDICARE [place]ICAID [place]
--- OUTSIDE RECORDS SUMMARY | 2025-01-16 20:48 | XMS_ITS | Encounter Summary ---
Demographics Address [address] [place] [address] Home Phone Email Address Preferred Language Romansh Marital Status Christian Affiliation Unknown Race White Ethnic Group Unknown Author Organization [employer] Address [id number] [address] [place] [address] Care Team Providers Care Sales Support Technician Name Role Phone Joe Marc DO Primary Care Provider [phone] Encounter Details Date Type Department Care Team (Late st Contact Info) Description 11/06/2023 Orders Only [facility] Sign In [address] [place] [phone] Inocencio Elias DO [address] [place] [address] Social History Tobacco Use Types Packs/Day Years [...] on filedocumented in this encounter Care Teams Sales Support Technician Relationship Specialty Start Date End Date Joe Marc DO [address] [place] [address] PCP - General Family Medicine 09/21/23 documented as of this encounter
--- OUTSIDE RECORDS SUMMARY | 2025-01-16 20:48 | XMS_ITS | Encounter Summary ---
Author Organization [facility] Address [address] [place] [address] Care Team Providers Care Draw End Hand Name Role Phone Unavailable Primary Care Provider Unavailabl e Encounter Details Date Type Department Care Team (Late st Contact Info) Description 01/02/2025 Bamboo flowsheet [facility] [address] [facility] [address] [place] [address] Mc Alva, RAYMOND Social History Tobacco Use Types Packs/Day Years [...] Treatment [facility] [address] [facility] [address] [place] [address] Mc Alva PTA 01/26/2025 1:30 PM EDT Treatment [facility] [address] [facility] [address] [place] [address] Margarita Andre, PT 02/07/2025 2:00 PM EDT Office Visit [facility] [address] [place] [address] Inocencio Bo, DO [address] [place] [address] documented as of this encounter Visit Diagnoses Not on filedocumented in this encounter
--- OUTSIDE RECORDS SUMMARY | 2025-01-16 20:48 | XMS_ITS | Encounter Summary ---
Author Organization [facility] Address [address] [place] [address] Care Team Providers Care Track Laborer Name Role Phone Unavailable Primary Care Provider Unavailabl e Encounter Details Date Type Department Care Team (Late st Contact Info) Description 01/16/2025 Bamboo flowsheet [facility] [address] [facility] [address] [place] [address] Mc Alva, RAYMOND Social History Tobacco Use [...] Treatment [facility] [address] [facility] [address] [place] [address] Mc Alva PTA 01/26/2025 1:30 PM EDT Treatment [facility] [address] [facility] [address] [place] [address] Margarita Andre, PT 02/07/2025 2:00 PM EDT Office Visit [facility] [address] [place] [address] Inocencio Bo, DO [address] [place] [address] documented as of this encounter Visit Diagnoses Not on filedocumented in this encounter
--- OUTSIDE RECORDS SUMMARY | 2025-01-16 20:48 | XMS_ITS | Encounter Summary ---
Author Organization [facility] Address [address] [place] [address] Phone Care Team Providers Care Furnace Operator And Tender Name Role Phone Joe Marc DO Primary Care Provider [phone] Joe Marc DO Primary Care Provider [phone] Encounter Details Date Type Department Care Team (Late st Contact Info) Description 11/25/2021 Orders Only [facility] [address] [place] [address] Conversion, Onbase Social History Tobacco Use Types Packs/Day Years Used Date Smoking Tobacco: Never Assessed Sex and Gender Information Value Date Recorded Sex Assigned at Not on file Legal Sex Male 6:18 AM EST Gender Identity Not on file Sexual Orientation Not on file documented as of this encounter Plan of Treatment Upcoming Encounters Date Type Department Care Team (Late st Contact Info) Description 02/28/2025 1:10 PM EDT Office Visit [facility] [address] [facility] [address] [place] [address] Addy Fuller DO [address] [facility] [address] [place] [address] Scheduled Orders Name Type Priority Associated Diagnoses Orde r Schedule OUTSIDE LAB SCAN Lab Ordered: 11/25/2021 documented as of this encounter Visit Diagnoses Not on filedocumented in this encounter Care Teams Furnace Operator And Tender Relationship Specialty Start Date End Date Joe Marc DO PCP - General 12/09/21 10/21/23 Joe Marc DO [address] [id number] PCP - General Family Medicine 10/22/23 documented as of this encounter
--- OUTSIDE RECORDS SUMMARY | 2025-01-16 20:48 | XMS_ITS | Clinical Summary ---
Demographics Address [address] [place] [address] Home Phone Email Address Preferred Language en Marital Status Church Affiliation Unknown Race White Ethnic Group Not or Lati no Author Organization [facility] Address [address] [place] [address] Phone Care Team Providers Care Medical Diagnostic Radiographer Name Role Phone Joe Marc DO Primary Care Provider [phone] Allergies Active Allergy Reactions Criticality Noted Date Comments Aspirin GI bleeding 05/25/2023 Medications albuterol 90 mcg/actuation inhaler Inhale 2 puffs every 4 hours if needed. Active meloxicam (Mobic) 15 mg tablet Take 1 tablet (15 mg) by mouth once daily. Active tadalafil 20 mg tablet Take 1 tablet (20 mg) by mouth once daily as needed. Active traMADol (Ultram) 50 mg tablet Take 1 tablet (50 mg) by mouth 2 times a day as needed. Active traZODone (Desyrel) 50 mg tablet Take 1 tablet (50 mg) by mouth once daily at bedtime. Active Breztri Aerosphere 160-9-4.8 mcg/actuation HFA aerosol inhaler Inhale 2 puffs 2 times a day. 4 Active nitroglycerin (Nitrostat) 0.4 mg SL tabletIndications:H istory of PTCA,NSTEMI, initial episode of care (Multi) Place 1 tablet (0.4 mg) under the tongue every 5 minutes if needed for chest pain (Report to the ER or call 911 after third dose.) for up to 15 days. 90 tablet 1 4 Active gabapentin (Neurontin) 800 mg tablet Take 1 tablet (800 mg) by mouth 3 times a day. Active atorvastatin (Lipitor) 80 mg tabletIndications:M ixed hyperlipidemia Take 1 tablet (80 mg) by mouth once daily at bedtime. 90 tablet 3 07/23/202 4 02/09/20 25 Active metoprolol succinate XL (Toprol-XL) 25 mg 24 hr tabletIndications:H ypertension, benign Take 1 tablet (25 mg) by mouth once daily. 90 tablet 3 4 02/09/20 25 Active valsartan (Diovan) 160 mg tabletIndications:H ypertension, benign Take 1 tablet (160 mg) by mouth once daily. 90 tablet 3 4 02/09/20 25 Active clopidogrel (Plavix) 75 mg tabletIndications:H istory of PTCA,NSTEMI, initial episode of care ([facility]) TAKE 1 TABLET BY MOUTH THURSDAY THROUGH THURSDAY 60 tablet 3 4 Active Active Problems Problem Noted Date Diagnosed Date BMI 32.0-32.9,adult 02/09/2024 History of myocardial infarction 02/09/2024 Cardiomyopathy, ischemic 02/09/2024 Pulmonary interstitial fibrosis ([facility]) 02/09/20 24 Former cigarette smoker 10/22/2023 GI bleed 10/22/2023 Cough 10/22/2023 HOPPER (dyspnea on exertion) 10/22/2023 Coronary artery disease invo lving cocopah coronary artery of [place] heart without angina pectoris 05/25/2023 Echocardiogram abnormal 05/25/2023 Fatigue 05/25/2023 History of PTCA 05/25/2023 Hypertension, benign 05/25/2023 Mixed hyperlipidemia 05/25/2023 Resolved Problems Problem Noted Date Diagnosed Date Resolved Date NSTEMI, initial episode of care ([facility]) 05/25/2023 02/09/2024 Immunizations Immunization Administration Dates Next Due Pfizer Purple Cap SARS-CoV-2 01/17/2021,12/19/19 21 Family History Medical History Relation Name Comments Hypertension Father Heart failure Mother Hypertension Mother Relation Name Status Comments Father Mother Social History Tobacco Use Types Packs/Day Years Used Date Smoking Tobacco: Former Cigarettes Tobacco Cessation:Counseling Given: Not Answered Alcohol Use Standard Drinks/Week Comments Never 0 (1 standard drink = 0.6 oz pur e alcohol) Sex and Gender Information Value Date Recorded Sex Assigned at Not on file Legal Sex Male 6:18 AM EST Gender Identity Not on file Sexual Orientation Not on file Last Filed Vital Signs Vital Sign Reading Time Taken Comments Blood Pressure 138/70 02/09/2024 1:46 PM EDT Pulse 60 02/09/2024 1:46 PM EDT Temperature - - Respiratory Rate - - Oxygen Saturation - - Inhaled Oxygen Concentration - - Weight 110 kg (242 lb) 02/09/2024 1:46 PM EDT Height 182.9 cm (6') 02/09/2024 1:46 PM EDT Body Mass Index 32.82 02/09/2024 1:46 PM EDT Plan of Treatment Upcoming Encounters Date Type Department Care Team (Late st Contact Info) Description 02/28/2025 1:10 PM EDT Office Visit [facility] [address] [facility] [address] [place] [address] Addy Fuller DO [address] [facility] [address] [place] [address] Health Maintenance Due Date Last Done Comments CT Colonography 1955 Colonoscopy 1955 Colorectal Cancer Screening 1955 FIT-DNA (Cologuard) 1955 FIT 1955 Lipid Panel 1955 Medicare Annual Wellness Visit (AWV) 1955 Sigmoidoscopy 1955 Diabetes Screening 1973 Hepatitis C Screening 1973 Pneumococcal Vaccine (1 of 2 - PCV) 1974 Zoster Vaccines (1 of 2) 2005 RSV High Risk: (Elderly (60+) or Population) (1 - Risk 60-74 years 1-dose series) 2015 Abdominal Aortic Aneurysm (AAA) Screening 2020 COVID-19 Vaccine ( - season) 2024 05/20/2021, 04/03/2021, 03/13/2021, Additional history exists Influenza Vaccine (Season Ended) 2025 05/26/2023 DTaP/Tdap/Td Vaccines (2 - Tdap) 10/06/2031 10/05/2021 HIB Vaccines Aged Out No longer eligi ble based on patient's age to complete this topic HPV Vaccines (No Doses Required) Completed Hepatitis A Vaccines Aged Out No long er eligible based on patient's age to complete this topic Hepatitis B Vaccines Aged Out No long er eligible based on patient's age to complete this topic IPV Vaccines Aged Out No longer eligi ble based on patient's age to complete this topic Meningococcal Vaccine Aged Out No yvette linda eligible based on patient's age to complete this topic Rotavirus Vaccines Aged Out No longer eligible based on patient's age to complete this topic Insurance MEDICAID DUAL COMPLETE MEDICAID Member Subscriber Plan / Payer (Ef fective 2020-Present) Name:KanwalKevne Relation to Subscriber:Self Name:Barry Schofield Payer ID:Not on file Group ID:Not on file Type:Not on file Address: [address] [facility] [address] DUAL COMPLETE Care Teams Medical Diagnostic Radiographer Relationship Specialty Start Date End Date Joe Marc DO [address] [id number] PCP - General Family Medicine 10/22/23
--- OUTSIDE RECORDS SUMMARY | 2025-01-16 20:48 | XMS_ITS | Encounter Summary ---
Author Organization [facility] Address [address] [place] [address] Care Team Providers Care Sr Community Manager Name Role Phone Unavailable Primary Care Provider Unavailabl e Encounter Details Date Type Department Care Team (Late st Contact Info) Description 01/12/2025 Bamboo flowsheet [facility] [address] [facility] [address] [place] [address] Lance Cetneno, RAYMOND Social History Tobacco Use Types Packs/Day [...] Treatment [facility] [address] [facility] [address] [place] [address] Mc Alva, RAYMOND 01/26/2025 1:30 PM EDT Treatment [facility] [address] [facility] [address] [place] [address] Margarita Andre, PT 02/07/2025 2:00 PM EDT Office Visit [facility] [address] [place] [address] Inocencio Bo, DO [address] [place] [address] documented as of this encounter Visit Diagnoses Not on filedocumented in this encounter
--- OUTSIDE RECORDS SUMMARY | 2025-01-16 20:48 | XMS_ITS | Encounter Summary ---
Author Organization [facility] Address [address] [place] [address] Care Team Providers Care Enterprise Application Architect Name Role Phone Unavailable Primary Care Provider Unavailabl e Encounter Details Date Type Department Care Team (Latest Contact Info) Description 01/12/2025 Travel Social History Tobacco Use Types Packs/Day [...] Treatment [facility] [address] [facility] [address] [place] [address] Mc Alva, BUTTON FACING MACHINE OPERATOR 01/26/2025 1:30 PM EDT Treatment [facility] [address] [facility] [address] [place] [address] Margarita Andre, PT 02/07/2025 2:00 PM EDT Office Visit [facility] [address] [place] [id number] Inocencio Bo, DO [address] [place] [address] documented as of this encounter Visit Diagnoses Not on filedocumented in this encounter
--- OUTSIDE RECORDS SUMMARY | 2025-01-16 20:48 | XMS_ITS | Encounter Summary ---
Demographics Address [address] [place] [address] Home Phone Email Address Preferred Language Telugu Marital Status Yazidism Affiliation Unknown Race White Ethnic Group Unknown Author Organization [employer] tem Address [id number] [address] [place] [address] Care Team Providers Care Regrinder Operator Name Role Phone Joe Marc DO Primary Care Provider [phone] Encounter Details Date Type Department Care Team ([facility] Contact Info) Description 11/05/2023 [facility]phone [facility] [address] [place] [id number] Niharika Esteban RMA Social History Tobacco Use Types Packs/Day Years [...] on file documented as of this encounter Miscellaneous Notes * Telephone Encounter - SUDHEER Elizabeth - 11/05/2023 1:56 PM EDT I called Barry and left a message to call the office to schedule a colonoscopy. Barry had a EGD / colonoscopy on 11/04/[address] Elias at [facility]. It was recommend a repeat colonoscopy in 1 month. I left my phone number & extension - the patient will need an office visit appt. & [facility] paperwork complete again for a 12/02/23 surgery. * Telephone Encounter - SUDHEER Elizabeth - 11/05/2023 1:56 PM EDT I called Barry to get an appointment scheduled and repeat colonoscopy @ [facility] scheduled. Barry does not wish to do another colonoscopy. documented in this encounter Plan of Treatment Not on file documented as of this encounter Visit Diagnoses Not on filedocumented in this encounter Care Teams Regrinder Operator Relationship Specialty Start Date End Date Joe Marc DO [address] [place] [address] PCP - General Family Medicine 09/21/23 documented as of this encounter
--- OUTSIDE RECORDS SUMMARY | 2025-01-16 20:48 | XMS_ITS | Encounter Summary ---
Author Organization [facility] Address [address] [place] [address] Care Team Providers Care Process Improvement Specialist Name Role Phone Unavailable Primary Care Provider Unavailabl e Encounter Details Date Type Department Care Team (Late st Contact Info) Description 01/09/2025 Bamboo flowsheet [facility] [address] [facility] [address] [place] [address] Callie Mckenzie, RAYMOND Social History Tobacco Use Types Packs/Day [...] Treatment [facility] [address] [facility] [address] [place] [address] Mc Alva, FELLER BUNCHER OPERATOR 01/26/2025 1:30 PM EDT Treatment [facility] [address] [facility] [address] [place] [address] Margarita Andre, PT 02/07/2025 2:00 PM EDT Office Visit [facility] [address] [place] [phone] Inocencio Bo, DO [address] [place] [address] documented as of this encounter Visit Diagnoses Not on filedocumented in this encounter
--- OUTSIDE RECORDS SUMMARY | 2025-01-16 20:48 | XMS_ITS | Clinical Summary ---
Demographics Address [address] [place] [address] Home Phone Email Address Preferred Language Mohawk Marital Status Methodist Affiliation Unknown Race White Ethnic Group Unknown Author Organization [employer] tem Address [id number] [address] [place] [address] Care Team Providers Care Capacity Planner Name Role Phone Joe Marc DO Primary Care Provider [phone] Allergies Active Allergy Reactions Criticality Noted Date Comments Aspirin GI Bleeding 05/25/2023 Medications albuterol (PROVENTIL HFA;VENTOLIN HFA) 90 mcg/actuation inhaler Inhale 2 puffs every 6 (six) hours as needed for shortness of breath. Active atorvastatin (LIPITOR) 80 mg tablet Take 1 tablet (80 mg total) by mouth in the morning. Active clopidogreL (PLAVIX) 75 mg tablet Take 1 tablet (75 mg total) by mouth in the morning. Active gabapentin (NEURONTIN) 800 mg tablet Take 1 tablet (800 mg total) by mouth 3 (three) times a day. Take 1 and 1/2 tablets by mouth 3 times daily for 30 days 4 Active ketoconazole (NIZORAL) 2 % shampoo Apply 1 Application topically 2 (two) times a week. 4 Active meloxicam (MOBIC) 15 mg tablet Take 1 tablet (15 mg total) by mouth in the morning. Active metoprolol succinate XL (TOPROL XL) 50 mg 24 hr tablet Take 1 tablet (50 mg total) by mouth in the morning. 4 Active nitroglycerin (NITROSTAT) 0.[address] 1 tablet (0.4 mg total) under the tongue every 5 (five) minutes as needed for chest pain. Active pantoprazole (PROTONIX) 40 mg EC tablet Take 1 tablet (40 mg total) by mouth every morning before breakfast. 4 Active traMADoL (ULTRAM) 50 mg tablet Take 1 tablet (50 mg total) by mouth 2 (two) times a day as needed for pain. Active traZODone (DESYREL) 50 mg tablet Take 1 tablet (50 mg total) by mouth in the morning. Active valsartan (DIOVAN) 160 mg tablet Take 1 tablet (160 mg total) by mouth daily as needed. Active sod sulf-pot chloride-mag sulf 1.479-0.188- 0.225 gram tabletIndicati ons:Positive colorectal cancer screening using Cologuard test Please see instructional sheet given by physicians office. 24 tablet 4 Active sucralfate (CARAFATE) 1 gram tablet Take 1 tablet (1 g total) by mouth in the morning and 1 tablet (1 g total) at noon and 1 tablet (1 g total) in the evening and 1 tablet (1 g total) before bedtime. 120 tablet 1 4 Active Active Problems No known active problems Family History Medical History Relation Name Comments Arthritis Father Hypertension Father Arthritis Mother Hypertension Mother Thyroid disease Mother Relation Name Status Comments Father Mother Social History Tobacco Use Types Packs/Day Years Used Date Smoking Tobacco: Former Cigarettes Smokeless Tobacco: Never Tobacco Cessation:Counseling Given: Not Answered Comments:Smoked for a short time as a [...] Sign Reading Time Taken Comments Blood Pressure 102/55 10/09/2023 12:50 PM EDT Pulse 63 10/09/2023 12:50 PM EDT Temperature - - Respiratory Rate - - Oxygen Saturation - - Inhaled Oxygen Concentration - - Weight 116.7 kg (257 lb 3.2 oz) 024 12:50 PM EDT Height 182.9 cm (6') 10/09/2023 12:50 PM EDT Body Mass Index 34.88 10/09/2023 12:50 PM EDT Plan of Treatment Health Maintenance Due Date Last Done Comments Depression Screening 1967 Zoster (Shingles) Vaccine (1 of 2) 2005 Abdominal Aortic Aneurysm (A AA) Screen 2020 Fall Risk Screening 2020 COVID-19 Vaccine (6 - 2023-2 5 season) 2024 05/20/2021, 04/03/2021, 03/13/2021, Additional history exists Adult BMI Screening 10/08/2024 10/09/2023 Tobacco Screening 10/08/2024 10/09/2023 Influenza Vaccine 03/20/2025 05/26/2023 DTaP,Tdap and Td Vaccines (2 - Tdap) 10/06/2031 10/05/2021 Medical Devices Not on file Insurance [employer] MEDICARE MEDICAID [place] Care Teams Capacity Planner Relationship Specialty Start Date End Date House, Joe P, DO [address] [place] [address] PCP - General Family Medicine 09/21/23
--- OUTSIDE RECORDS SUMMARY | 2025-01-16 20:48 | XMS_ITS | Encounter Summary ---
Author Organization [facility] Address [address] [place] [address] Care Team Providers Care Staff Accountant Name Role Phone Unavailable Primary Care Provider Unavailabl e Encounter Details Date Type Department Care Team (Latest Contact Info) Description 01/16/2025 Travel Social History Tobacco Use Types Packs/Day [...] Treatment [facility] [address] [facility] [address] [place] [address] Mc Alva, DENTAL LABORATORY ASSISTANT 01/26/2025 1:30 PM EDT Treatment [facility] [address] [facility] [address] [place] [address] Margarita Andre, PT 02/07/2025 2:00 PM EDT Office Visit [facility] [address] [place] [phone] Inocencio Bo, DO [address] [place] [address] documented as of this encounter Visit Diagnoses Not on filedocumented in this encounter
== END 2025-01-16 20:46 | disposition home or self-care (01) ==
LOC: SLEEP 20:45
PROVIDERS: PCP Family Medicine; Visit Provider Family Medicine
DX: G47.33 Obstructive sleep apnea (adult) (pediatric) (principal)
CPT/HCPCS: 95810

== ENCOUNTER 2025-03-01 20:03 | Outpatient (OUT) | payer MEDICARE, MEDICAID, SELFPAY ==
--- OUTSIDE RECORDS SUMMARY | 2025-03-01 20:06 | XMS_ITS | Encounter Summary ---
Demographics Address [address] [place] [address] Home Phone Email Address Preferred Language en Marital Status Taoism Affiliation Unknown Race White Ethnic Group Not or Lati no Author Organization [facility] Address [address] [place] [address] Phone Care Team Providers Care Mat Packer Name Role Phone Joe Marc DO Primary Care Provider [phone] Joe Marc DO Primary Care Provider [phone] Encounter Details Date Type Department Care Team (Late st Contact Info) Description 09/30/2023 Scanned Document [facility] [address] [place] [address] Scanning, Generic Provider Social History [...] on file documented as of this encounter Procedures Procedure [...] on filedocumented in this encounter Care Teams Mat Packer Relationship Specialty Start Date End Date Joe Marc DO PCP - General 12/09/21 10/21/23 [place] [address] [place] [address] PCP - General Family Medicine 10/22/23 documented as of this encounter
--- OUTSIDE RECORDS SUMMARY | 2025-03-01 20:06 | XMS_ITS | Encounter Summary ---
Demographics Address [address] [place] [address] Home Phone Email Address Preferred Language Belarusian Marital Status Scientology Affiliation Unknown Race White Ethnic Group Unknown Author Organization [employer] tem Address [id number] [address] [place] [address] Care Team Providers Care Debate Director Name Role Phone Joe Marc DO Primary Care Provider [phone] Encounter Details Date Type Department Care Team (Late st Contact Info) Description 11/06/2023 Orders Only [facility] In [address] [place] [id number] Inocencio Elias DO [address] [place] [address] Social History Tobacco Use Types Packs/Day [...] on filedocumented in this encounter Care Teams Debate Director Relationship Specialty Start Date End Date Joe Marc DO [address] [place] [address] PCP - General Family Medicine 09/21/23 documented as of this encounter
--- OUTSIDE RECORDS SUMMARY | 2025-03-01 20:06 | XMS_ITS | Encounter Summary ---
Demographics Address [address] [place] [address] Home Phone Email Address Preferred Language en Marital Status Amish Affiliation Unknown Race White Ethnic Group Not or Lati no Author Organization [facility] Address [address] [place] [address] Phone Care Team Providers Care Data Deliverables Manager Name Role Phone Joe Marc DO Primary Care Provider [phone] Joe Marc DO Primary Care Provider [phone] Encounter Details Date Type Department Care Team (Late st Contact Info) Description 10/01/2023 Scanned Document [facility] [address] [place] [address] Scanning, Generic Provider Social History [...] on filedocumented in this encounter Care Teams Data Deliverables Manager Relationship Specialty Start Date End Date Joe Marc DO PCP - General 12/09/21 10/21/23 Joe Marc DO [address] [place] [address] PCP - General Family Medicine 10/22/23 documented as of this encounter
--- OUTSIDE RECORDS SUMMARY | 2025-03-01 20:06 | XMS_ITS | CCD ---
Demographics Address [address] [place] [address] Mobile Phone Home Phone Preferred Language en Marital Status [employer] Affiliation Unknown Race White Ethnic Group Not or Lati no Author Organization [facility] Care Team Providers Care Junior Systems Analyst Name Role Phone Monico Joe Lam Unavailable Unavailable Unavailable Jocelyn Diaz Unavailable MISC, DR WEATHERS Admitting Unavailable [facility], DR WEATHERS Attending Unavailable LAKESIDE, DR DIAZ Primary Care Unavailable CENTER, DR NATACHA Campoverde Consulting Unavailable [facility], DR WEATHERS Consulting Unavailable LAKESIDE, DR DIAZ Admitting Unavailable LAKESIDE, DR DIAZ Attending Unavailable LAKESIDE, DR DIAZ Referring Unavailable [facility] Primary Care Unavaila ble LAKESIDE, DR DIAZ Consulting Unavailable LAKESIDE, DR DIAZ Admitting Unavailable HOUSE, DR DIAZ Attending Unavailable LAKESIDE, DR DIAZ Primary Care Unavailable LAKESIDE, DR DIAZ Consulting Unavailable MARITZA, DR JEAN-PAUL Mccann Consulting Unavailable LAKESIDE, DR DIAZ Admitting Unavailable HOUSE, DR DIAZ Attending Unavailable LAKESIDE, DR DIAZ Primary Care Unavailable LAKESIDE, DR DIAZ Consulting Unavailable ZIEBCISCO, DR JEAN-PAUL Mccann Consulting Unavailable JOHNNY, EMANUEL Admitting Unavailable JOHNNY, EMANUEL Attending Unavailable JONNY, DR ADDY Davis Consulting Unavailabl e HOUSE, DR DIAZ Primary Care Unavailable JOHNNY, EMANUEL Consulting Unavailable LAKESIDE, DR DIAZ Primary Care Unavailable HAY, DR CABEZAS Admitting Unavailable HAY, DR CABEZAS Attending Unavailable HAY, DR CABEZAS Consulting Unavailable RHIANNA, SANDER Consulting Unavailable [facility] Primary Care Unavaila ble PAY, DR KOTHARI Admitting Unavailable PAY, DR KOTHARI Attending Unavailable PAY, DR KOTHARI Consulting Unavailable ANAND, LINDA Consulting Unavailable [facility] Primary Care Unavaila ble JAMSHID SOLIZ Consulting Unavailable BHARGAV, DR ELIESER De La Cruz Admitting Unavailabl e BHARGAV, DR ELIESER De La Cruz Attending Unavailabl e STRAWSER, ABRAN Consulting Unavailable Jonny, Dr. Addy Cartagena Referring Unava ilable Monico, Dr. Diaz [facility] Primary Care Unava ilable Jonny, Dr. Addy Cartagena Attending Emanuel Montes Attending Unavailable Emanuel Andrews Referring Unavailable Monico, Dr. Joe Brown Primary Care Winifred Fuller, [...] Provider MD Eliud Tilley Other Provider Radha [facility] Helen Tapia Other Provider [phone] MD Joyce Delacruz Other Provider [phone] MD Ghazala Warren Attending Provider MARIETTA BRICE Attending Unavailable JOE MADDOX [...] Garcia Consulting Unavailable Joyce Delacruz Consulting Unavailable JONNY, ADDY S Referring Unavailable HOUSE, JOE P Primary Care Unavailable JONNY, ADDY S Referring Unavailable HOUSE, JOE P Primary Care Unavailable JONNY, ADDY S Referring Unavailable HOUSE, JOE P Primary Care Unavailable Urena, CLAUDE Ariana Admitting Unavailabl e HOUSE, JOE P Referring Unavailable Urena, Ariana Attending Unavailable Jaqui Biswas Attending Unavaila DO García Sam Admitting Unavailabl e García Castro Attending Unavailable HOUSE, JOE P Referring Unavailable García Castro Admitting Unavailable García Castro Attending Unavailable HOUSE, JOE P Referring Unavailable HOUSE, JOE P Referring Unavailable Urena, Ariana Admitting Unavailable Urena, Ariana Attending Unavailable Urena, Ariana Attending Unavailable CLAUDE Urena Ariana Admitting Unavailabl e HOUSE, JOE P Referring Unavailable Urena, Ariana Attending Unavailable CLAUDE Urena Ariana Admitting [...] Costa Consulting Unavailab Hui Taylor Consulting Unavailable Unavailable Primary Care Provider Unavailabl e House DOJoe Primary Care Provider ADDY FULLER S Attending Unavailable HOUSE, JOE P Primary Care Unavailable JONNY ADDY S Attending Unavailable JONNY, ADDY S Referring Unavailable HOUSE, JOE P Primary Care Unavailable Urena, Ariana Admitting Unavailable HOUSE, JOE P Referring Unavailable Romel, Ariana Attending Unavailable Sander Cardoza Referring Unavailable Sander Cardoza Attending Unavailable Sander Cardoza Admitting Unavailable Romel, Ariana Attending Unavailable Romel, Ariana Admitting Unavailable García Castro Referring Unavailable García Castro Attending Unavailable Cardoza, Sander T Referring Unavailable Cardoza, Sander T Admitting Unavailable Cardoza, Sander T Attending Unavailable Cardoza, Sander T Attending Unavailable Cardoza, Sander T Referring Unavailable Cardoza, Sander T Admitting Unavailable Cardoza, Sander T Admitting Unavailable Cardoza, Sander T Attending Unavailable Cardoza, Sander T Referring Unavailable HOUSE, JOE P Primary Care [...] Unavailable HOUSE, DO JOE P Attending Unavailable CARDOZA, SANDER T Attending Unavailable CARDOZA, SANDER T Referring Unavailable CARDOZA, SANDER T Attending Unavailable CARDOZA, SANDER T Referring Unavailable CARDOZA, SANDER T Referring Unavailable CARDOZA, SANDER T Attending Unavailable CARDOZA, SANDER T Referring Unavailable ANDRE, MARGARITA Attending Unavailable CARDOZA, SANDER T Referring Unavailable JACOB, LANCE Attending Unavailable CARDOZA, SANDER T Referring Unavailable BRINK, LISA Attending Unavailable CARDOZA, SANDER T Referring Unavailable ANDRE, MARGARITA Attending Unavailable CARDOZA, SANDER T Referring Unavailable ANDRE, MARGARITA Attending Unavailable CARDOZA, SANDER T Referring Unavailable ANDRE, MARGARITA Attending Unavailable CARDOZA, SANDER T Referring Unavailable BRINK, LISA Attending Unavailable CARDOZA, SANDER T Referring Unavailable KELBLEY, CALLIE Attending Unavailable CARDOZA, SANDER T Referring Unavailable BRINK, LISA Attending Unavailable CARDOZA, SANDER T Referring Unavailable HILLS, JOSE D Referring Unavailable HILLS, JOSE D Attending Unavailable HILLS, JOSE D Referring Unavailable BRINK, LISA Attending Unavailable CARDOZA, SANDER T Referring Unavailable KELBLEY, CALLIE Attending Unavailable CARDOZA, SANDER T Referring Unavailable JACOB, LANCE Attending Unavailable CARDOZA, SANDER T Referring Unavailable BRINK, LISA Attending Unavailable CARDOZA, SANDER T Referring Unavailable JACOB, LANCE Attending Unavailable CARDOZA, SANDER T Referring Unavailable KELBLEY, CALLIE Attending Unavailable CARDOZA, SANDER T Referring Unavailable BRINK, LISA Attending Unavailable CARDOZA, SANDER T Referring Unavailable CARDOZA, SANDER T Referring Unavailable CARDOZA, SANDER T Attending Unavailable Allergies Allergy Classification Reported Allergen(s) Allergy Type Date of Onset Reaction(s) Facility (20 sources) Aspirin; Translations: [aspirin] Drug Allergy 05-25-2023 GI bleeding [facility] Repository (4 sources) gabapentin; Translations: [gabapentin] Drug Allergy [facility] Repository (20 sources) Aluminum aspirin Drug Allergy 05-25-2023 GI bleeding [facility] Work Phone: Medications Current Medications Medication Drug Class(es) Dates Sig (Normalized) Sig (Original) [id number] actuat albuterol 0.09 mg/actuat metered dose inhaler (20 sources) beta2-Adrenergic Agonist Start: 11-23-2021 take 2.5 ug by inhalation every four hours Albuterol Sulfate Active 2.5 MCG INHALATION Q4H November 23, 2021 12:00am Start: 08-08-2021 take 2 puff(s) by in halation every four hours as needed Albuterol Sulfate HFA 108 (90 Base) MCG/ACT 2 puffs as needed Inhalation every 4 hrs Jul, Active take 2 puff(s) by in halation every six hours Ventolin HFA 108 (90 Base) MCG/ACT inhaler Inhale 2 puffs every 6 (six) hours if needed Active take 2 puff(s) by in halation every four hours albuterol 90 mcg/actuation inhaler Inhale 2 puffs every 4 hours if needed. Active take 2 puff(s) by in halation every six hours as needed albuterol (PROVENTIL HFA;VENTOLIN HFA) 90 mcg/actuation inhaler Inhale 2 puffs every 6 (six) hours as needed for shortness of breath. Active take 2 puff(s) by in halation [...] 2021 12:00am atorvastatin 80 mg oral tablet (20 sources) HMG-CoA Reductase Inhibitor Start: 11-26-2021 End: 10-21-2024 take 1 tablet by mouth at bedtime atorvastatin (Lipitor) 80 MG tablet Take 80 mg by mouth at bedtime 10/22/2023 Active benzonatate 100 mg oral capsule (20 sources) Non-narcotic Antitussive Start: 08-22-2023 benzonatate (Tessalon) 100 MG capsule 08/22/2023 Active 120 actuat budesonide 0.16 mg/actuat / formoterol fumarate 0.0048 mg/actuat / glycopyrrolate 0.009 mg/actuat metered dose inhaler (20 sources) Corticosteroid, beta2-Adrenergic Agonist Start: 10-20-2023 take 2 puff(s) by inhalation in the morning Breztri Aerosphere 160-9-4.8 MCG/ACT aerosol Inhale 2 puffs in the morning and 2 puffs in the evening. 10/20/2023 Active Start: 10-20-2023 take 2 puff(s) by in halation twice daily Breztri Aerosphere 160-9-4.8 mcg/actuation HFA aerosol inhaler Inhale 2 puffs 2 times a day. 10/20/2023 Active ciclopirox 7.7 mg/ml topical cream (20 sources) Start: 12-26-2024 Ciclopirox 1 % shampoo Indications: Other seborrheic dermatitis LATHER ON WET HAIR,LEAVE ON FOR 5 MINUTES,THEN RINSE 2 TO 3 TIMES PER WEEK FOR 30 DAYS 120 mL 12/26/2024 Active Start: 12-26-2024 ciclopirox (Lo prox) 0.77 % cream Indications: Other seborrheic dermatitis APPLY THIN LAYER TO AFFECTED AREA ONCE A DAY FOR 30 DAYS 30 g 12/26/2024 Active Start: 11-01-2024 End: 11-28-2024 Ciclopirox 1 % shampoo Indic ations: Other seborrheic dermatitis LATHER ON WET HAIR,LEAVE ON FOR 5 MINUTES,THEN RINSE 2 TO 3 TIMES PER WEEK FOR 30 DAYS 120 mL 11/28/2024 Active Start: 11-01-2024 End: 11-28-2024 ciclopirox (Loprox) 0.77 % c ream Indications: Other seborrheic dermatitis APPLY THIN LAYER TO AFFECTED AREA ONCE A DAY FOR 30 DAYS 30 g 11/28/2024 Active Start: 11-18-2023 Ciclopirox 1 % shampoo Indications: Other seborrheic dermatitis Lather on wet hair, leave on 5 min, rinse 2-3 x week, 30 day supply 120 mL 11/18/2023 Active Start: 11-18-2023 ciclopirox (Lo prox) 0.77 % cream Indications: Other seborrheic dermatitis Apply thin layer to affected area once a day, 30 day supply 30 g 11/18/2023 Active clopidogrel 75 mg oral tablet (20 sources) P2Y12 Platelet Inhibitor Start: 09-30-2023 End: 10-21-2024 take 1 tablet by mouth once daily clopidogrel (Plavix) 75 MG tablet Take 75 mg by mouth Daily 10/21/2024 Active Start: 03-26-2023 End: 10-21-2024 take 1 tablet by mouth five times weekly clopidogrel (Plavix) 75 mg tablet Indications: History of PTCA , NSTEMI, initial episode of care (Multi) Take 1 tablet (75 mg) by mouth 5 times a week. One tablet taken by mouth, Thursday thru Thursday 60 tablet 3 10/22/2023 10/21/2024 Active gabapentin 800 mg oral tablet (20 sources) Anti-epileptic Agent Start: 09-30-2023 take 1200 mg by mouth three times daily Gabapentin Active 1200 MG PO Three times daily September 30, 2023 12:00am Start: 07-06-2023 gabapentin (Ne urontin) 800 MG tablet Take 800 mg by mouth in the morning and 800 mg at noon and 800 mg in the evening. 07/06/2023 Active take 1 tablet by bobby th three times daily Gabapentin 800 MG Oral Tablet TAKE 1 TABLET 3 TIMES DAILY. Quantity: 0 Refills: 0 Ordered: 26-Mar-2023 DO Active hydrOXYzine hydrochloride 25 mg oral tablet (20 sources) Antihistamine Start: 11-09-2023 hydrOXYzine HCl (Atarax) 25 MG tablet 25 mg 11/09/2023 Active ketoconazole 20 mg/ml medicated shampoo (20 sources) Azole Antifungal Start: 06-09-2023 ketoconazole (NIZOral) 2 % shampoo 06/09/2023 Active levoFLOXacin 500 mg oral tablet (20 sources) Quinolone Antimicrobial Start: 08-27-2023 levoFLOXacin (Levaquin) 500 MG tablet 500 mg 08/27/2023 Active meclizine hydrochloride 25 mg oral tablet (20 sources) Antiemetic take 1 tablet by mouth in the morning, then take 1 tablet by mouth in the evening, then take 1 tablet by mouth at bedtime meclizine (Antivert) 25 MG tablet Take 25 mg by mouth in the morning and 25 mg in the evening and 25 mg before bedtime. Active meloxicam 15 mg oral tablet (20 sources) Nonsteroidal Anti-inflammatory Drug Start: 11-23-2021 take 1 tablet by mouth in the morning meloxicam (Mobic) 15 MG tablet Take 15 mg by mouth in the morning. 06/09/2023 Active Meloxicam Active 24 hr metoprolol succinate 50 mg extended release oral tablet (20 sources) beta-Adrenergic Svetlana Start: 10-01-2023 take 1 tablet by mouth every twenty-four hours in the morning metoprolol succinate XL (Toprol-XL) 50 MG 24 hr tablet Take 50 mg by mouth in the morning. 10/01/2023 Active Start: 03-19-2022 End: 10-21-2024 take [...] 90 Refills: 3 Ordered: 09-Dec-2021 Isaac Andrews APRN-Emanuel AVALOS Active Metoprolol-12.5 mg (1 source) Metoprolol-12.5 mg Active naloxone hydrochloride 40 mg/ml nasal spray (20 sources) Opioid Antagonist Start: 10-15-2023 naloxone (Narcan) 4 mg/0.1 mL nasal spray 10/15/2023 Active nitroglycerin 0.4 mg sublingual tablet (20 sources) Nitrate Vasodilator Start: 11-26-2021 End: 11-06-2023 nitroglycerin (Nitrostat) 0.4 mg SL tablet Indications: History of PTCA , NSTEMI, initial episode of care (Multi) Place 1 tablet (0.4 mg) under the tongue every 5 minutes if needed for chest pain (Report to the ER or call 911 after third dose.) for up to 15 days. 90 tablet 1 10/22/2023 Active nitroglycerin (N itrostat) 0.4 MG SL tablet Active oseltamivir 75 mg oral capsule (1 source) Neuraminidase Inhibitor Start: 08-08-2021 take 1 capsule by mouth every twelve hours Oseltamivir Phosphate 75 MG 1 capsule Orally Twice a day for 5 day(s) Jul, Active pantoprazole 40 mg delayed release oral tablet (20 sources) Proton Pump Inhibitor Start: 09-23-2023 take 1 tablet by mouth once daily before breakfast pantoprazole (PROTONIX) 40 mg EC tablet Take 1 tablet (40 mg total) by mouth every morning before breakfast. 09/23/2023 Active prasugrel 10 mg oral tablet (5 sources) P2Y12 Platelet Inhibitor Start: 11-26-2021 take 10 mg by mouth once daily Prasugrel Active 10 MG PO Daily 90 90 November 26, 2021 12:00am sod sulf-pot chloride-mag sulf 1.479-0.188- 0.225 gram tablet (5 sources) Start: 10-09-2023 sod sulf-pot chloride-mag sulf 1.479-0.188- 0.225 gram tablet Indications: Positive colorectal cancer screening using Cologuard test Please see instructional sheet given by physicians office. 24 tablet 10/09/2023 Active Start: 10-09-2023 sod sulf-pot c hloride-mag sulf 1.479-0.188- 0.225 gram tablet Indications: Positive colorectal cancer screening using Cologuard test Please see instructional sheet given by physicians office. 24 tablet 0 10/09/2023 Active Sodium Sulfate-Mag Sulfate-K Cl (Sutab) 5159-489-469 MG tablet (20 sources) Start: 10-09-2023 Sodium Sulfate -Mag Sulfate-KCl (Sutab) 3098-450-797 MG tablet 10/09/2023 Active Start: 10-09-2023 Sodium Sulfate -Mag Sulfate-KCl (Sutab) 6144-067-674 MG tablet Please see instructional sheet given by physicians office. 10/09/2023 Active sucralfate 1000 mg oral tablet (2 sources) Aluminum Complex Start: 11-10-2023 take 1 tablet by mouth at bedtime sucralfate (CARAFATE) 1 gram tablet Take 1 tablet (1 g total) by mouth in the morning and 1 tablet (1 g total) at noon and 1 tablet (1 g total) in the evening and 1 tablet (1 g total) before bedtime. 120 tablet 1 11/10/2023 Active tadalafil 20 mg oral tablet (20 sources) Phosphodiesterase 5 Inhibitor Start: 11-23-2021 take 20 mg by mouth once daily Tadalafil Active 20 MG PO Daily November 23, 2021 12:00am Start: 11-23-2021 End: 11-23-2021 Tadalafil Discontinued MG TA BLET November 23, 2021 12:00am November 23, 2021 10:31pm traMADol hydrochloride 50 mg oral tablet (20 sources) Opioid Agonist Start: 11-23-2021 traMADol (Ultr am) 50 MG tablet 50 mg 07/06/2023 Active traMADol HCl Act marichuy traZODone hydrochloride 50 mg oral tablet (20 sources) Serotonin Reuptake Inhibitor Start: 11-23-2021 take [...] End: 10-21-2024 take 1 tablet by mouth in the morning valsartan (Diovan) 160 MG tablet Take 160 mg by mouth in the morning. 10/22/2023 Active Start: 11-26-2021 End: 09-30-2023 take 80 [...] Drug Class(es) Dates Sig (Normalized) Sig (Original) betamethasone 3 mg/ml / betamethasone acetate 3 mg/ml injectable suspension (4 sources) Corticosteroid Start: 06-22-2024 End: 06-22-2024 betamethasone acetate-betamethason e sodium phosphate (Celestone) injection 12 mg Start: 06-22-2024 End: 06-22-2024 12 mg, Intra-articular, Once PRN Procedure, Starting on Thu06/22/24 at 1540, For 1 dose regadenoson (Lexiscan) injection 0.4 mg (1 source) Start: 11-23-2023 End: 11-23-2023 0.4 mg, intravenous, Once, O n 11/23/23 at 1045, For 1 dose Tc-99m tetrofosmin [...] sources) Coronary atherosclerosis; Translations: [Coronary atherosclerosis of resighini coronary artery] Onset: 2 Chronic Diseases of [...] unspecified; Translations: [FEVER UNSPECIFIED] Onset: 2 Episodic Osteoarthritis (19 sources) Osteoarthritis of joint of left shoulder region; Translations: [Primary osteoarthritis, left shoulder] 06-22-2024 Chronic Other aftercare (1 source) Other [place] (current) drug therapy; Translations: [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] Onset: 2 Episodic Other connective tissue disease (19 sources) History of reverse prosthetic total arthroplasty of left shoulder; Translations: [Presence of left artificial shoulder joint] 11-24-2024 Chronic Other gastrointestinal disorders (1 source) Other fecal [...] IN LEFT HIP] Onset: 2 Episodic Other non-traumatic joint disorders (3 sources) Pain in left shoulder; Translations: [Pain in joint, shoulder region] 06-22-2024 Episodic Other nutritional; endocrine; and metabolic disorders [...] cough; Translations: [Other specified cough] Onset: 4 Unclassified (2 sources) History of reverse prosthetic total arthroplasty of left shoulder 11-28-2024 Past or Other Problems Problem Classification Problem Date Documented Da te Episodic/Chronic Conditions associated with dizziness or vertigo (1 source) Dizziness and giddiness; Translations: [Dizziness and giddiness] Onset: 5 Episodic Coronary atherosclerosis and other heart disease (7 [...] level, initial encounter] Onset: 2 Episodic Other gastrointestinal disorders (2 sources) Stool DNA-based colorectal cancer screening positive; Translations: [Other fecal abnormalities] 11-05-2023 Episodic Other gastrointestinal disorders (1 source) Loose stool; Translations: [Other fecal abnormalities] 10-09-2023 Episodic Other lower respiratory disease (4 sources) [...] Test Name Value Interpretation Reference Range Facility Sleep Studyon 02-06-2025 Sleep Study [id number] 01-31-2025 Outside Records [id number] [facility] Operative Reporton 5 Operative Report Operative Report SURGERY DATE: 10/24/2024 PLASTIC PANEL INSTALLER: Edgar Kilgore C.F.A. PREOPERATIVE DIAGNOSES: 1. Left shoulder endstage osteoarthritis 2. Chronic cuff arthropathy 3. Failure of conservative injection care POSTOPERATIVE DIAGNOSES: 1. Left shoulder endstage osteoarthritis 2. Chronic cuff arthropathy 3. Failure of conservative injection care OPERATION: 1. Left reverse total shoulder arthroplasty 2. Long head biceps tenodesis 3. Application of UltraSling ANESTHESIA: General/block combination ANESTHESIOLOGIST: Chad Weldon M.D. ESTIMATED BLOOD LOSS: 100 cc SPECIMEN: Bone IMPLANTS: The Ernestine Tornier Perform set with a size 3 Press-Fit short Perform humeral stem, a 0 polyethylene, 39 standard glenosphere, 29 full-wedge metaglene, central screw standard of 40 mm, peripheral four screws HISTORY AND INDICATIONS: Barry is a 69-year-old male with progressive left shoulder pain with cuff arthropathy. He has failed conservative injection management. He has tried ice, Tylenol, antiinflammatory, home exercise program. He has had cortisone injections. He has jovx-cx-juxo disease. He has cuff arthropathy with proximal riding. Preoperative CT scan is reviewed. All questions were answered preoperatively. Consent form signed and witnessed. Intraoperative CT scan and x-rays are utilized for planning and intraoperative use. Sites marked. Antibiotics provided weight based per protocol. All questions were answered. PROCEDURE: Barry was taken to the Operating Room and placed in supine position. Anesthesia was provided. He was placed on the beach-chair table. Shoulder was examined with moderate to severe stiffness. Shoulder was prepped and draped in sterile fashion. A time-out procedure occurred consistent with the consent form, History and Physical, preoperative marked site. Landmarks were identified. Once time-out was confirmed, a deltopectoral incision was made of approximately 4 . All bleeders were cauterized. The cephalic vein was protected. The deltopectoral groove was encountered with blunt dissection. Blunt retractors were applied. The supraspinatus was chronically torn. Infraspinatus had a partial slip. Biceps tendon was tenotomized and sutured to the pectoralis major with 0 Vicryl suture with biceps tenodesis. The head was peeled and dislocated anteriorly with exposed denuded bone. The cutting jig was appropriately positioned and the cut was made taking off the appropriate resection, and protective baseplate was provided. Attention was then directed to the glenoid. This was exposed with blunt retractors. The guide jig was appropriately positioned. Pin was positioned in the anterior/posterior center portion in the 1/3 and 2/3 distal third junction on superior and inferior positioning with good purchase of the guide pin. This was then reamed, drilled, and periosteum was denuded of the glenoid. No significant cavitary defects or significant retroversion. After the Irrisept was allowed to soak followed by copious irrigation, a full-wedge metaglene positioned at the 11:30 and 5:30 positions was appropriately positioned and tensioned with a 40 mm standard central screw. Peripheral screws were placed with good purchase. After copious irrigation the 39 standard glenosphere was seated, screwed, tightened, impacted, and re-screwed with good purchase and tension. The proximal humerus was then delivered anteriorly. This was sized for a 3. Reaming and broached were performed with trial components with good position and alignment with a neutral polyethylene, stable conjoint tendon as well as deltoid tension, stable arc of motion. After copious irrigation the three standard short Perform humeral [place] Tornier stem was impacted. The recipient polyethylene neutral was seated and impacted and deemed stable, and the shoulder was renal-dose dopamine. Exparel 60 cc per protocol with bupivacaine mixture was injected along the fascia and subcutaneous tissues. Pulsed lavage irrigation with a gram of vancomycin was utilized throughout the procedure, a total of 3 L. The deltopectoral layer was then closed with 0 Vicryl suture. Tranexamic acid 2 g was placed subfascially. The fascial layer was sealed and appropriately tensioned over the deltopectoral interval. The cephalic vein was stable throughout and retracted. The subcutaneous tissues were closed with 3-0 Vicryl suture. A 4-0 Monocryl intracuticular suture was placed with liquid adhesive glue. An 8 Mepilex dressing with UltraSling provided from our office was provided in the neutral position. The patient was awakened from anesthesia and transferred to the Recovery Room in stable and satisfactory condition. CASE: Clean and elective COUNTS: Sponge and needle count correct SPECIMEN: Bone PATIENT CONDITION: Satisfactory Sander Cardoza D.O. ca Dictated: 10/24/2024 [id number] Transcribed: 10/24/2024 cc:Joe Maddox D.O. [facility] Comment on above: Result Comment: Elec tronically Signed By: Sander Cardoza DO\.br\Date and Time Signed: 10/28/24 07:56 EDT Lab - Other Lab Resultson Lab - Other Lab Results [id number] GTIFF [facility] Surgical Pathology Reporton 10-26-2024 Surgical Pathology Report [address] [id number]- Surgical Pathology Report Collected Date/Time: 10/24/2024 09:54 EDT Pathologist: Ruperto FARFAN PhD, Troy Tapia Received Date/Time: 10/24/2024 11:58 EDT Sander Cardoza DO, DO, Michael T 07 Surgical Pathology Report - 10/26/2024 12:06 EDT - Auth (Verified) Final Diagnosis LEFT SHOULDER BONE AND SOFT TISSUE, ARTHROPLASTY: - BONE CARTILAGE WITH DEGENERATIVE CHANGES. - NORMOCELLULAR BONE MARROW WITH TRILINEAGE HEMATOPOIESIS. - BENIGN SYNOVIAL SOFT TISSUE AND SKELETAL MUSCLE. (Electronic Signature) Troy Hickey MD PhD 10/26/2024 12:06 Clinical Information Left shoulder OA Pre-Op Diagnosis: Left shoulder OA Procedure: Left reverse total shoulder arthroplasty Post-Op Diagnosis: 1. Left shoulder endstage osteoarthritis 2. Chronic cuff arthropathy 3. Failure of conservative injection care Specimen(s) Received Left shoulder- bone and soft tissue Gross Description Received in formalin labeled with patient name, number, and left shoulder bone and soft tissue is a humeral head measuring 4.9 x 4.7 x 1.3 cm. The articular surface is thin and rough with osteophyte formation present. Cross-sectioning through the humeral head contains no discrete lesions. Also received in the container are multiple fragments of núñez/red/pink/light yellow bone and soft tissue measuring in aggregate 5 x 4 x 1 cm. A surgical device sales representative portion is submitted in a total of two cassettes: 1 - Soft tissue 2 - Bone after decalcification (DC) DC:[facility] Microscopic Description Microscopic examination performed unless gross only specified. This report was transcribed using voice recognition technology and might contain unintended computerized engineering team supervisor errors. [facility] Comment on above: Performed By: #### [id number] #### [facility] [address] [place] [address] Main OR Intraoperative Recor don 10-25-2024 Main OR Intraoperative Record Main OR Intraoperative Record IntraOp Document Type FT Summary Primary Physician: Sander Cardoza DO Finalized Date/Time: 10/25/24 09:41:53 Pt. Name: BARRY GALDAMEZ/Sex: 1955 Male Med Rec #: [id number] Physician: Sander Cardoza DO Financial #: [id number] Pt. Type: A Room/Bed: Admit/Disch: 10/24/24 05:55:22 - 10/24/24 12:15:00 Institution: Case Times FT Entry 1 Patient Times In Room 10/24/24 08:25:00 Out Room 10/24/24 10:13:00 Procedure Times Start 10/24/24 09:03:00 Stop 10/24/24 10:08:00 Anesthesia Times Start 10/24/24 08:25:00 Stop 10/24/24 10:13:00 Block Timeout w/ 10/24/24 07:52:00 Anesthesia Last Modified By: Beck TREVIZO, Linda Tapia 10/24/24 10:13:29 General Comments: left brachial plexus block and interscalene block performed by using ultrasound guidance. Patient's heartrate-53, SP02-99% on room air. Dale, DIRECTOR OF RECRUITMENT AND ADMISSIONS to assist with the block. patient tolerated block well. Patient transported back to [facility] bay 5 and placed on continous monitor.-SANTHOSH Delgado Case Attendance FT Entry 1 Entry 2 Entry 3 Case Attendee Gifty DENT, Abdullahi Cardoza DO, Sander Solares RN, Linda Tapia Role Performed Anesthesiologist Surgeon - Primary Director Of Accounts Payable - Primary Scrap Breaker Time In 10/24/24 08:25:00 10/24/24 09:01:00 10/24/24 08:25:00 Time Out 10/24/24 10:13:00 10/24/24 09:53:00 10/24/24 10:13:00 Procedure SHOULDER TOTAL SHOULDER TOTAL SHOULDER TOTAL ARTHROPLASTY(Left) ARTHROPLASTY(Left) ARTHROPLASTY(Left) Comments , anesthesia pulp mill supervisor Last Modified By: Beck RN, Linda Solares RN, Linda Solares RN, Linda Tapia 10/24/24 10:21:12 10/24/24 10:21:12 10/24/24 10:21:12 Entry 4 Entry 5 Entry 6 Case Attendee Sherwin Carrero, Lopez Lamb LPN, Marietta Zelaya Role Performed Staff - Other Staff - Other Scrub - Primary Time In 10/24/24 08:25:00 10/24/24 08:25:00 10/24/24 08:25:00 Time Out 10/24/24 10:13:00 10/24/24 09:53:00 10/24/24 10:13:00 Procedure SHOULDER TOTAL SHOULDER TOTAL SHOULDER TOTAL ARTHROPLASTY(Left) ARTHROPLASTY(Left) ARTHROPLASTY(Left) Comments 2nd scrub at sterile 3rd scrub/ retractor field dupont at sterile field Last Modified By: Beck TREVIZO, Linda Solares RN, Linda Solares RN, Linda Tapia 10/24/24 10:21:12 10/24/24 10:21:12 10/24/24 10:21:12 Entry 7 Case Attendee Edilberto Kilgore CST Role Performed DIRECTOR OF RECRUITMENT AND ADMISSIONS/SA Time In 10/24/24 08:25:00 Time Out 10/24/24 10:13:00 Procedure SHOULDER TOTAL ARTHROPLASTY(Left) Comments Last Modified By: Linda Solares RN 10/24/24 10:21:12 General Comments: Winifred Hurley JAVED surgical technology student, scrubbed in for case. Hay wilson, present in OR for surgical case Syed Henriquez JAVED assistant professor surgical technology in OR observing surgical technology student. Perioperative Protocols FT Pre-Care Text: Implements protective measures prior to operative or invasive procedure, confirms identity before the operative or invasive procedure, verifies operative procedure, surgical site, and laterality Entry 1 Procedure(s) SHOULDER TOTAL Patient Identity Birthday, ID Band ARTHROPLASTY(Left) Verified (select at Check, Patient least 2): Participation Consents / H and P Anesthesia Consent, Operative Site Present Verified H&P, Surgery/Procedure Marking Verified Consent, Transfusion Consent Surgical Site Yes Laterality Verified Yes Verified Procedure Verified Yes Availability Equipment, Implant, Verified (If Medication Applicable) Prep Dry n/a PreOp Antibiotic Yes Given Time Out Abdullahi Camacho Time Out Complete 10/24/24 09:03:00 Participants Betzy Keita DO, Michael T, Krupp RN, Linda Tapia, Sherwin Carrero, Lopez Alvarado, Adonis MILNER, Jame Landrum CST, Benjamin Outcomes Met? Yes Last Modified By: Linda Solares RN 10/24/24 09:37:38 Post-Care Text: The patient is free from signs and symptoms of injury caused by extraneous objects Allergy Information FT Pre-Care Text: Verifies allergies Entry 1 Allergies Reviewed? Yes Allergies Reviewed Self/Patient With Outcomes Met? Yes Last Modified By: Linda Solares RN 10/24/24 08:03:11 Post-Care Text: The patient received appropriate medication(s) safely administered during the perioperative period Surgical Procedures FT Entry 1 Procedure Description Procedure SHOULDER TOTAL Modifiers Left ARTHROPLASTY Surgeon Description LEFT REVERESE TOTAL SHOULDER ARTHROPLASTY Primary Procedure Yes Primary Surgeon Sander Cardoza DO Start 10/24/24 09:03:00 Stop 10/24/24 10:08:00 Anesthesia Type General Surgical Service Orthopedics Wound Class 1 - Clean Last Modified By: Beck TREVIZO, Linda L 10/24/24 13:02:56 General Case Data FT Pre-Care Text: Classifies surgical wound, implements aseptic technique, initiates traffic control Entry 1 Case Information OR OR 5 FT Case Level Level 6 Wound Class 1 - Clean Specialty Orthopedics ASA Class 3 (more content not included)... [facility] ABO/Rhon 10-24-2024 ABO/Rh Positive Invalid Interpretation Code [facility] Comment on above: Performed By: #### [id number] #### [facility] [address] [place] [address] ABO/Rh History Checkon 10-24 ABO/Rh History Check Verified Hx Blood Type Normal [facility] Comment on above: Performed By: #### [id number] #### [facility] [address] [place] [address] ABSCon 10-24-2024 ABSC Gel Interp Negative Normal [facility] Comment on above: Performed By: #### [id number] #### [facility] [address] [place] [address] Blood Bank ID#on 10-24-2024 BBID# [id number] Invalid Interpretation Code [facility] Comment on above: Performed By: #### [id number] #### [facility] [address] [place] [address] Discharge Instructionson Discharge Instructions Discharge Instruc tions BARRY GALDAMEZ :1955 Visit Date:10/24/2024 Inpatient Discharge Instructions Your Care Team Admitting Physician - Sander Cardoza DO Referring Physician - Sander Cardoza DO Reason for Your Visit LEFT SHOULDER OA Your Diagnosis Localized osteoarthritis of left shoulder Tests Performed Pathology Tissue Exam -- Results Pending -- XR Shoulder Complete Left -- Results Pending -- Please visit your patient portal for your results or contact your primary care physician. This Is Your Medications List acetaminophen-oxycodone (Percocet 5 mg-325 mg oral tablet) albuterol (Albuterol (Eqv-ProAir HFA) 90 mcg/inh inhalation aerosol) atorvastatin (atorvastatin 80 mg Tab) budesonide/formoterol/gl ycopyrrolate (Breztri Aerosphere inhalation aerosol) clopidogrel (clopidogrel 75 mg Tab) docusate (Colace 100 mg Cap) gabapentin (gabapentin 800 mg Tab) hydrOXYzine (hydrOXYzine hydrochloride 25 mg Tab) ketoconazole topical (ketoconazole Top 2% Shampoo) magnesium citrate (magnesium citrate oral tablet) meloxicam (meloxicam 15 mg Tab) metoprolol (Metoprolol tartrate 50 mg Tab) naloxone (naloxone 0.4 mg/mL Inj) naloxone (naloxone 4 mg/0.1 mL nasal spray) tramadol (tramadol 50 mg oral tablet) trazodone (traZODONE 50 mg Tab) ubiquinone (Co Q-10) valsartan (valsartan 80 mg Tab) Procedure History Caudal epidural (02/23/2024), Esophagogastroduodenosco py (09/23/2023), Epidural injection of lumbar spine using fluoroscopic guidance (06/25/2023), Epidural injection of lumbar spine using fluoroscopic guidance (05/19/2023), Epidural injection of lumbar spine using fluoroscopic guidance (12/10/2022), Arthroscopy of shoulder (04/13/2018), Carpal tunnel release (04/13/2018), Hip arthroplasty (09/29/2017), Left hip arthrogram (12/03/2016), Appendectomy;, Colonoscopy, Stent, Tooth extraction, complete mouth. What to do next Instructions From Your Doctor Event Name Event Result Discharge Instructions Freetext Sling for 4 weeks.Resume Plavix blood thinner the day after shouldeer surgery. Discharge Activity Ambulate as tolerated, Arrange for a responsible adult supervision for 24 hours, Expect mild pain, Expect minimal amount of drainage and/or bleeding, Do not lift more than 5 lbs Discharge Restrictions No driving, Do not operate machinery or tools, Do not make important decisions for 24 hours, Do not drink alcoholic beverages for 24 hours Discharge Diet(s) Regular, Drink liquids and eat a light meal Call Your Doctor For Persistent or heavy bleeding, Temperature above 101.5 degrees, Redness, swelling, or pus at operative site, Severe pain at the operative site, Persistent vomiting Wound Care Remove dressing as instructed Remove Dressing On 14 Discharge Instructions Discharge Instructions New Follow Up Appointments after Discharge Follow Up with FUNMILAYO Sykes When: 11/24/2024 02:00 PM EDT Comments: Keep scheduled appointment Where: [address] [place], [place] [id number]- [id number] (1) Medications What How Much When Why Instructions Next Dose Unchanged acetaminophen-oxycodone (Percocet 5 mg-325 mg oral tablet) See instructions Localized osteoarthritis of left shoulder Take one to two oral every 4 hours as needed for surgical pain. Pickup at [facility]/pharmacy #[id number] Unchanged albuterol (Albuterol (Eqv-ProAir HFA) 90 mcg/ inh inhalation aerosol) 2 Inhalation Inhalation As needed for Shortness of breath or wheezing Unchanged atorvastatin (atorvastatin 80 mg Tab) 1 Tablets By Mouth Every day Unchanged budesonide/ formoterol/ glycopyrrolate (Breztri Aerosphere inhalation aerosol) Inhalation As needed for Shortness of breath or wheezing Unchanged clopidogrel (clopidogrel 75 mg Tab) 1 Tablets By Mouth Thursday & Thursday Unchanged docusate (Colace 100 mg Cap) 1 Capsules By Mouth 2 times a day Pickup at [facility]/pharmacy #[id number] Unchanged gabapentin (gabapentin 800 mg Tab) 1 Tablets By Mouth 3 times a day Unchanged hydrOXYzine (hydrOXYzine hydrochloride 25 mg Tab) 1 Tablets By Mouth As needed for Insomnia Unchanged ketoconazole topical (ketoconazole Top 2% Shampoo) Unchanged magnesium citrate (magnesium citrate oral tablet) Unchanged meloxicam (meloxicam 15 mg Tab) 1 Tablets By Mouth Every day Unchanged metoprolol (Metoprolol tartrate 50 mg Tab) 1 Tablets By Mouth Every day Unchanged naloxone (naloxone 0.4 mg/ mL Inj) 1 Milliliter Intramuscular As Directed for suspected overdose. (dispense 2 vials 0.4 mg/ ml with syringes and needles for dose administration) Unchanged naloxone (naloxone 4 mg/ 0.1 mL nasal spray) 4 Milligram Nasal Inhalation As Directed for suspected overdose symptoms Unchanged tramadol (tramadol 50 mg oral tablet) 1 Tablets By Mouth Every 12 hours as needed for as needed for pain Unchanged trazodone (traZODONE 50 mg Tab) 1 Tablets By Mouth Once a day (at bedtime) Unchanged ubi (more content not included)... [facility] Comment on above: Result Comment: Elec tronically Signed By: Michael TREVIZO, Emmie Eckert\.deborah\Date and Time Signed: 10/24/24 10:44 EDT Main OR PACU I Recordon Main OR PACU I Record Main OR PACU I Rec ord PACU Phase I Document Type FT Summary Primary Physician: Sander Cardoza DO Finalized Date/Time: 10/24/24 10:54:55 Pt. Name: BARRY GALDAMEZ/Sex: 1955 Male Med Rec #: [id number] Physician: Sander Cardoza DO Financial #: [id number] Pt. Type: A Room/Bed: AS11/17 Admit/Disch: 10/24/24 05:55:22 - Institution: Case Times PACU I FT [...] to medications Entry 1 In PACU I 10/24/24 10:15:00 Discharge from PACU 10/24/24 10:45:00 I Outcomes Met? Yes Last Modified By: Ryan TREVIZO, Callie 10/24/24 10:54:48 Post-Care Text: The patient demonstrates knowledge of [...] PACU I FT Entry 1 Start Time 10/24/24 10:15:00 Stop Time 10/24/24 10:45:00 Acuity Level Acuity Level I Last Modified By: Callie Davis RN 10/24/24 10:54:54 Finalized By: Callie Davis RN Document Signatures Signed By: Callie Davis RN 10/24/24 10:54 Normal [facility] Main OR PACU II Recordon Main OR PACU II Record Main OR PACU II R ecord PACU Phase II Document Type FT Summary Primary Physician: Sander Cardoza DO Finalized Date/Time: 10/24/24 12:19:40 Pt. Name: MARIELAAlessandroBARRY/Sex: 1955 Male Med Rec #: [id number] Physician: Sander Cardoza DO Financial #: [id number] Pt. Type: A Room/Bed: [facility] Admit/Disch: 10/24/24 05:55:22 - Institution: Case Times PACU II FT Pre-Care Text: Identifies barriers to communication and implements measures to provide psychological support and determines knowledge level Develops individualized plan of care, and ensures continuity of care Maintains patient's dignity and privacy, and maintains patient confidentiality Identifies and reports philosophical, cultural, and spiritual beliefs and values Identifies individual values and wishes concerning care administers prescribed antibiotic therapy and immunizing agents as ordered, Evaluates postoperative tissue perfusion Implements thermoregulation measures, and monitors body temperature Evaluates postoperative respiratory status Evaluates postoperative cardiac status Evaluates postoperative neurological status Assesses pain control, collaborated in initiating patient-controlled analgesia and implements alternative methods of pain control Verifies allergies, administers prescribed medications and solutions, evaluates response to medications Entry 1 In PACU II 10/24/24 10:55:00 Discharge from PACU 10/24/24 12:15:00 II Last Modified By: Emmie Rodriguez RN 10/24/24 12:19:38 Post-Care Text: The patient demonstrates knowledge of [...] affecting his or her perioperative plan of care. The patient is free from signs and [...] from baseline levels established preoperatively The patient's neurological status is consistent with or improved from baseline levels established preoperatively The patient demonstrates and/or reports adequate pain control throughout the perioperative period The patient received appropriate medication(s), safely administered during the perioperative period Finalized By: Emmie Rodriguez RN Document Signatures Signed By: Emmie Rodriguez RN 10/24/24 12:19 Normal [facility] Main OR Preoperative Recordo n 10-24-2024 Main OR Preoperative Record Main OR Preoperative Record PreOp Document Type FT Summary Primary Physician: Sander Cardoza DO Finalized Date/Time: 10/24/24 09:08:19 Pt. Name: BARRY GALDAMEZ/Sex: 1955 Male Med Rec #: [id number] Physician: Sander Cardoza DO Financial #: [id number] Pt. Type: A Room/Bed: [facility] Admit/Disch: 10/24/24 05:55:22 - Institution: Case Times PreOp FT Pre-Care Text: Verifies consent for planned procedure, identifies individual values and wishes concerning care, includes family members in perioperative teaching Entry 1 Patient Times. In Pre Surgery 10/24/24 05:55:00 Out Pre Surgery 10/24/24 08:23:00 Outcomes Met? Yes Last Modified By: Linda Solares RN 10/24/24 09:08:17 Post-Care Text: The patient participates in decisions affecting his or her perioperative plan of care Finalized By: Linda Solares RN Document Signatures Signed By: Linda Solares RN 10/24/24 09:08 [facility] Operative Reporton Operative Report Operative Report Patient: BARRY GALDAMEZ Age: 69 years Sex: Male : 1955 Associated Diagnoses: None Author: Sander Cardoza DO Health Status Allergies: Allergic Reactions (Selected) No Known Allergies Review / Management Results review: Lab results 10/24/2024 6:26 EDT ABO/Rh Interp A POS ABSC Gel Interp Negative . Impression and Plan Diagnosis Pre-op dx-lt shoulder oa Post-op dx-same Procedure-lt reverse tsa/bicep tenodesis Anesthesia-gen block combo EBL-100cc TT- To Recovery Room in stable and satisfactory condition.. Normal [facility] Comment on above: Result Comment: Elec tronically Signed By: Sander Cardoza DO\.br\Date and Time Signed: 10/24/24 10:02 EDT XR SHOULDER COMPLETE LEFTon 10-24-2024 Exam Date/Time: 10/24/2024 10:38 EDT Reason for Exam: Post Op Report IMPRESSION: NEGATIVE POSTOPERATIVE LEFT SHOULDER. CLINICAL HISTORY: Post Op COMPARISON: NONE FINDINGS: 2 views. Patient is undergone bipolar noncemented left shoulder replacement. No fracture. No abnormal lucency bone prosthetic interface. Ordering Provider: Sander Cardoza FINAL REPORT Dictated: 10/24/2024 10:40 am Edilberto Cortes MD Signed (Electronic Signature): 10/24/2024 10:40 am Signed by: Edilbreto Cortes MD Transcribed by: TAWANDA Technologist: MARTHA [facility] Radiology, Radiologi MD tyra - 10/24/2024 Exam Date/Time: 10/24/2024 10:38 EDT Reason for Exam: Post Op Report IMPRESSION: NEGATIVE POSTOPERATIVE LEFT SHOULDER. CLINICAL HISTORY: Post Op COMPARISON: NONE FINDINGS: 2 views. Patient is undergone bipolar noncemented left shoulder replacement. No fracture. No abnormal lucency bone prosthetic interface. Ordering Provider: Sander Cardoza FINAL REPORT Dictated: 10/24/2024 10:40 am Edilberto Cortes MD Signed (Electronic Signature): 10/24/2024 10:40 am Signed by: Edilberto Cortes MD Transcribed by: TAWANDA Technologist: MARTHA [facility] Study observation (narrative) [facility] XR SHOULDER COMPLETE LEFTOrd ered By: Radiologist Radiology on 10-24-2024 [facility] Work Phone: XR Shoulder Complete Lefton 10-24-2024 XR Shoulder Complete Left Exam Date/Time: 10/24/2024 10:38 EDT Reason for Exam: Post Op Report IMPRESSION: NEGATIVE POSTOPERATIVE LEFT SHOULDER. CLINICAL HISTORY: Post Op COMPARISON: NONE FINDINGS: 2 views. Patient is undergone bipolar noncemented left shoulder replacement. No fracture. No abnormal lucency bone prosthetic interface. Ordering Provider: Sander Cardoza FINAL REPORT Dictated: 10/24/2024 10:40 am Edilberto Cortes MD Signed (Electronic Signature): 10/24/2024 10:40 am Signed by: Edilberto Cortes MD Transcribed by: TAWANDA Technologist: MARTHA [facility] Inpatient Patient Summaryon 10-17-2024 Inpatient Patient Summary Inpatient Patient Summary [facility] [address] [place], [place] [address] [facility] Clinical Discharge Instructions PERSON INFORMATION Name: BARRY GALDAMEZ [facility]#:[id number] PHYSICIANS Admitting Physician: Sander Cardoza DO Attending Physician: Sander Cardoza DO PCP: JOE MADDOX DO Discharge Diagnosis: Localized osteoarthritis of left shoulder Comment: PATIENT EDUCATION INFORMATION Instructions: Deborah Emanuel - Shoulder Replacement (CUSTOM) Medication Leaflets: Follow up: With: Address: When: Sander Cardoza [address] [place] [id number] (1) Comments: Keep scheduled appointment Type Location Start [facility] 10/24/2024 8:45 AM 10/24/2024 9:45 AM Confirmed MEDICATION LIST Medications to Continue Taking That Have Changed Other Medications START: albuterol (Albuterol (Eqv-ProAir HFA) 90 mcg/inh inhalation aerosol) 2 Inhalation Inhalation as needed Shortness of breath or wheezing. START: clopidogrel (clopidogrel 75 mg Tab) 1 Tablets By Mouth Thursday & Thursday. START: gabapentin (gabapentin 800 mg Tab) 1 Tablets By Mouth 3 times a day., spinal stenosis START: hydrOXYzine (hydrOXYzine hydrochloride 25 mg Tab) 1 Tablets By Mouth as needed Insomnia. START: meloxicam (meloxicam 15 mg Tab) 1 Tablets By Mouth every day. Medications to Continue with No Changes Other Medications atorvastatin (atorvastatin 80 mg Tab) 1 Tablets By Mouth every day. ketoconazole topical (ketoconazole Top 2% Shampoo) magnesium citrate (magnesium citrate oral tablet) metoprolol (Metoprolol tartrate 50 mg Tab) 1 Tablets By Mouth every day. naloxone (naloxone 0.4 mg/mL Inj) 1 Milliliter Intramuscular As Directed. for suspected overdose. (dispense 2 vials 0.4 mg/ml with syringes and needles for dose administration). Refills: 0. naloxone (naloxone 4 mg/0.1 mL nasal spray) 4 Milligram Nasal Inhalation As Directed. for suspected overdose symptoms. Refills: 0. tramadol (tramadol 50 mg oral tablet) 1 Tablets By Mouth every 12 hours as needed as needed for pain. trazodone (traZODONE 50 mg Tab) 1 Tablets By Mouth once a day (at bedtime). ubiquinone (Co Q-10) every day. valsartan (valsartan 80 mg Tab) 1 Tablets By Mouth every day. No Longer Take the Following Medications dextromethorphan (Delsym) potassium bicarbonate Comment: Normal [facility] - Other [facility] - Other Lab Results [id number] Normal [facility] Outpatient Surgery Discharge Instructionon 10-17-2024 Outpatient Surgery Discharge Instruction Outpatient Surgery Discharge Instruction [place] [id number] Patient Discharge Instructions PERSON INFORMATION Name: BARRY GALDAMEZ Date of : 1955 Current Date: 10/17/2024 13:38:28 PHYSICIANS Admitting Physician: Sander Cardoza DO Discharge Diagnosis: Localized osteoarthritis of left shoulder BARRY GALDAMEZ has been given the following list of follow-up instructions, prescriptions, and patient education materials: PATIENT FOLLOW-UP INFORMATION Diet: Regular, Drink liquids and eat a light meal Discharge Activity: Ambulate as tolerated, Arrange for a responsible adult supervision for 24 hours, Expect mild pain, Expect minimal amount of drainage and/or bleeding, Do not lift more than 5 lbs Discharge Restrictions: No driving, Do not operate machinery or tools, Do not make important decisions for 24 hours, Do not drink alcoholic beverages for 24 hours Call Your Doctor For: Persistent or heavy bleeding, Temperature above 101.5 degrees, Redness, swelling, or pus at operative site, Severe pain at the operative site, Persistent vomiting Wound Care Instructions: Remove dressing as instructed Remove Your Dressing In 14 Days Additional Instructions: Sling for 4 weeks. Resume Plavix blood thinner the day after shouldeer surgery. IF UNABLE TO CONTACT YOUR PHYSICIAN AND YOU FEEL IT IS AN EMERGENCY, GO TO THE NEAREST EMERGENCY ROOM OR CALL [address] M, have received the attached patient education materials/instructions and have verbalized understanding: May we do a follow up call? Yes No I was present when discharge instructions were given Patient Signature Date Clinican/Nurse Signature Date Follow up: With: Address: When: Sander Cardoza [address] [place] [id number] Business (1) Comments: Keep scheduled appointment Type Location Start [facility] Surgery [facility] 10/24/2024 8:45 AM 10/24/2024 9:45 AM Confirmed Pharmacy Information: You may receive a survey from [employer] asking you to rate your care experience. Your feedback is important and will help us understand what we do well and how we can improve the quality of care we provide to you, your loved ones and our community. It???s an honor to serve you. Thank you for choosing [facility] HERE ARE THE MEDICATION CHANGES THAT OCCURRED DURING YOUR HOSPITAL STAY Medications to Continue Taking That Have Changed Other Medications START: albuterol (Albuterol (Eqv-ProAir HFA) 90 mcg/inh inhalation aerosol) 2 Inhalation Inhalation as needed Shortness of breath or wheezing. START: clopidogrel (clopidogrel 75 mg Tab) 1 Tablets By Mouth Thursday & Thursday. START: gabapentin (gabapentin 800 mg Tab) 1 Tablets By Mouth 3 times a day., spinal stenosis START: hydrOXYzine (hydrOXYzine hydrochloride 25 mg Tab) 1 Tablets By Mouth as needed Insomnia. START: meloxicam (meloxicam 15 mg Tab) 1 Tablets By Mouth every day. Medications to Continue with No Changes Other Medications atorvastatin (atorvastatin 80 mg Tab) 1 Tablets By Mouth every day. ketoconazole topical (ketoconazole Top 2% Shampoo) magnesium citrate (magnesium citrate oral tablet) metoprolol (Metoprolol tartrate 50 mg Tab) 1 Tablets By Mouth every day. naloxone (naloxone 0.4 mg/mL Inj) 1 Milliliter Intramuscular As Directed. for suspected overdose. (dispense 2 vials 0.4 mg/ml with syringes and needles for dose administration). Refills: 0. naloxone (naloxone 4 mg/0.1 mL nasal spray) 4 Milligram Nasal Inhalation As Directed. for suspected overdose symptoms. Refills: 0. tramadol (tramadol 50 mg oral tablet) 1 Tablets By Mouth every 12 hours as needed as needed for pain. trazodone (traZODONE 50 mg Tab) 1 Tablets By Mouth once a day (at bedtime). ubiquinone (Co Q-10) every day. valsartan (valsartan 80 mg Tab) 1 Tablets By Mouth every day. No Longer Take the Following Medications dextromethorphan (Delsym) potassium bicarbonate PATIENT EDUCATION INFORMATION Instructions: [place], [place] [facility] DISCHARGE INSTRUCTIONS: SHOULDER REPLACEMENT MEDICATIONS You will be given a prescription for pain medication. This should be taken with food as needed. This may cause stomach upset, dizziness, and possible constipation. Please notify the office if you have any medication allergies to this type of medication or if any problems develop with the medication. DRESSING CHANGES Leave your bandage in place until your follow up visit. The bandage is waterproo (more content not included)... Normal [facility] BMPon 10-10-2024 Anion gap [Moles/Vol] 12 mmol/L Normal 6-16 [facility] Comment on above: Performed By: #### 2 [id number] #### [facility] [address] [place] [address] Calcium [Mass/Vol] 9.6 mg/dL Normal 8.9-11.1 [facility] Comment on above: Performed By: #### 2 [id number] #### [facility] [address] [place] [address] Chloride [Moles/Vol] 101 mmol/L Normal 101-111 [facility] Comment on above: Performed By: #### 2 [id number] #### [facility] [address] [place] [address] CO2 [Moles/Vol] 31 mmol/L Normal 21-31 [facility] Comment on above: Performed By: #### 2 [id number] #### [facility] [address] [place] [address] Creatinine [Mass/Vol] 0.8 mg/dL Normal 0.5-1.3 [facility] Comment on above: Performed By: #### 2 [id number] #### [facility] [address] [place] [address] Glucose [Mass/Vol] 90 mg/dL Normal 55-199 [facility] Comment on above: Performed By: #### 2 [id number] #### [facility] [address] [place] [address] Potassium [Moles/Vol] 5.0 mmol/L Normal 3.5-5.3 [facility] Comment on above: Performed By: #### 2 [id number] #### [facility] [address] [place] [address] Sodium [Moles/Vol] 139 mmol/L Normal 135-145 [facility] Comment on above: Performed By: #### 2 [id number] #### [facility] [address] [place] [address] Urea nitrogen [Mass/Vol] 16 mg/dL Normal 5-21 [facility] Comment on above: Performed By: #### 2 [id number] #### [facility] [address] [place] [address] Urea nitrogen/Creatinine [Mass ratio] 20 No Units Normal 10-20 [facility] Comment on above: Performed By: #### 2 [id number] #### [facility] [address] [place] [address] CBC w/ Auto Diffon 5 Basophils/100 WBC (Bld) 0.7 % Normal 0.0-2.0 [facility] Comment on above: Performed By: #### 2 [id number] #### [facility] [address] [place] [address] Basophils/Leukocytes Auto (Bld) [Pure # fraction] 0.1 E9/L Normal 0.0-0.2 [facility] Comment on above: Performed By: #### 2 [id number] #### [facility] [address] [place] [address] Eosinophils (Bld) [#/Vol] 0.3 E9/L Normal 0.0-0.5 [facility] Comment on above: Performed By: #### 2 [id number] #### [facility] [address] [place] [address] Eosinophils/100 WBC (Bld) 3.9 % Normal 0.0-8.0 [facility] Comment on above: Performed By: #### 2 [id number] #### [facility] [address] [place] [address] Erythrocyte distribution width (RBC) [Ratio] 15.0 % High 10.9-14.2 [facility] Comment on above: Performed By: #### 2 922001 #### [facility] [address] [place] [address] Hematocrit (Bld) [Volume fraction] 38.0 % Normal 37.7-49.0 [facility] Comment on above: Performed By: #### 2 [id number] #### [facility] [address] [place] [address] Hemoglobin (Bld) [Mass/Vol] 12.6 g/dL Low 13.5-17.5 [facility] Comment on above: Performed By: #### 2 237772 #### [facility] [address] [place] [address] Lymphocytes (Bld) [#/Vol] 2.7 E9/L Normal 1.0-4.0 [facility] Comment on above: Performed By: #### 2 523371 #### [facility] [address] [place] [address] Lymphocytes/100 WBC (Bld) 30.9 % Normal 14.0-50.0 [facility] Comment on above: Performed By: #### 2 152612 #### [facility] [address] [place] [address] MCH (RBC) [Entitic mass] 26.1 pg Low 27.0-34.0 [facility] Comment on above: Performed By: #### 2 [id number] #### [facility] [address] [place] [address] MCHC (RBC) [Mass/Vol] 33.1 g/dL Normal 31.4-36.0 [facility] Comment on above: Performed By: #### 2 060055 #### [facility] [address] [place] [address] MCV (RBC) [Entitic vol] 78.9 fL Low 80.0-100.0 [facility] Comment on above: Performed By: #### 2 518151 #### [facility] [address] [place] [address] Monocytes (Bld) [#/Vol] 0.6 E9/L Normal 0.2-1.0 [facility] Comment on above: Performed By: #### 2 232586 #### [facility] [address] [place] [address] Neutrophils (Bld) [#/Vol] 5.0 E9/L Normal 2.0-7.5 [facility] Comment on above: Performed By: #### 2 111836 #### [facility] [address] [place] [address] Neutrophils/100 WBC (Bld) 57.6 % Normal 36.0-75.0 [facility] Comment on above: Performed By: #### 2 [id number] #### [facility] [address] [place] [address] Platelet mean volume (Bld) [Entitic vol] 7.2 fL Normal 6.4-10.8 [facility] Comment on above: Performed By: #### 2 067426 #### [facility] [address] [place] [address] Platelets (Bld) [#/Vol] 248.0 E9/L Normal 150. 0-500. 0 [facility] Comment on above: Performed By: #### 2 843574 #### [facility] [address] [place] [address] RBC (Bld) [#/Vol] 4.8 E12/L Normal 4.3-5.9 [facility] Comment on above: Performed By: #### 2 [id number] #### [facility] [address] [place] [address] WBC corrected for nucl RBC Auto (Bld) [#/Vol] 8.6 E9/L Normal 4.0-11.0 [facility] Comment on above: Performed By: #### 2 843535 #### [facility] [address] [place] [address] UA WITH CULT RFLXon 10-11-19 25 BILIRUBIN:PRTHR:PT:URIN E:ORD:TEST STRIP.AUTOMATED Negative Negative mg/dL [facility] CLARITY:TYPE:PT:URINE:N OM: Clear Clear [facility] CLASS:TYPE:PT:URINE COLLECTION METHOD:NOM:* Clean Catch [facility] COLOR:TYPE:PT:URINE:NOM :AUTO Light-Yellow Yellow [facility] Comment on above: Microscopic readings are only performed on those samples that meet specific criteria set forth by [facility]. [facility] PH:LSCNC:PT:URINE:QN:TE ST STRIP 7.0 5.0 - 9.0 [facility] SPECIFIC GRAVITY:RDEN:PT:URINE:Q N:TEST STRIP 1.018 1.005 - 1.030 [facility] GLUCOSE:PRTHR:PT:URINE: ORD:TEST STRIP Negative Negative mg/dL [facility] HEMOGLOBIN:MCNC:PT:URIN E:SEMIQN:TEST STRIP.AUTOMATED Negative Negative mg/dL [facility] KETONES:PRTHR:PT:URINE: ORD:TEST STRIP.AUTOMATED Negative Negative mg/dL [facility] LEUKOCYTE ESTERASE:PRTHR:PT:URINE :ORD:TEST STRIP.AUTOMATED Negative Negative CD:[id number] [facility] NITRITE:PRTHR:PT:URINE: ORD:TEST STRIP.AUTOMATED Negative Negative mg/dL [facility] PROTEIN:PRTHR:PT:URINE: ORD:TEST STRIP Negative Negative mg/dL [facility] UROBILINOGEN:MCNC:PT:UR INE:SEMIQN:TEST STRIP Negative Negative mg/dL [facility] Original Ordering Provider: DO Sander Cardoza [facility] UA with Cult Rflxon 10-11-19 25 Bilirubin Ql (U) Negative Normal Negative [facility] Comment on above: Performed By: #### 4 [id number] #### [facility] [address] [place] [address] Clarity (U) Clear Normal Clear [facility] Comment on above: Performed By: #### 4 [id number] #### [facility] [address] [place] [address] Color (U) Light-Yellow Normal Yellow [facility] Comment on above: Result Comment: Micr oscopic readings are only performed on those samples that meet specific criteria set forth by [facility]. Performed By: #### 4 [id number] #### [facility] [address] [place] [address] Glucose Ql (U) Negative Normal Negative [facility] Comment on above: Performed By: #### 4 [id number] #### [facility] [address] [place] [address] Hemoglobin Auto test strip (U) [Mass/Vol] Negative Normal Negative [facility] Comment on above: Performed By: #### 4 [id number] #### [facility] [address] [place] [address] Ketones Auto test strip Ql (U) Negative Normal Negative [facility] Comment on above: Performed By: #### 4 [id number] #### [facility] [address] [place] [address] Leukocyte esterase Auto test strip Ql (U) Negative Normal Negative [facility] Comment on above: Performed By: #### 4 [id number] #### [facility] [address] [place] [address] Nitrite Auto test strip Ql (U) Negative Normal Negative [facility] Comment on above: Performed By: #### 4 [id number] #### [facility] [address] [place] [address] pH (U) 7.0 [pH] Invalid Interpretation Code 5.0-9.0 [facility] Comment on above: Performed By: #### 4 [id number] #### [facility] [address] [place] [address] Protein Ql (U) Negative Normal Negative [facility] Comment on above: Performed By: #### 4 [id number] #### [facility] [address] [place] [address] Specific gravity (U) [Rel density] 1.018 Invalid Interpretation Code 1.005-1.03 0 [facility] Comment on above: Performed By: #### 4 [id number] #### [facility] [address] [place] [address] Urobilinogen (U) [Mass/Vol] Negative Normal Negative [facility] Comment on above: Performed By: #### 4 [id number] #### [facility] [address] [place] [address] Type of Urine collection method Clean Catch Normal [facility] Comment on above: Performed By: #### 4 [id number] #### [facility] [address] [place] [address] eGFRon 10-10-2024 eGFR 96 mL/min/1.73 m2 Normal >=59 [facility] Comment on above: Performed By: #### 1 [id number] #### [facility] [address] [place] [address] CT SHOULDER LEFT WO IV CONTR Dru 09-22-2024 CT SHOULDER LEFT WO IV CONTRAST EXAMINATION: CT SHOULDER LEFT WO IV CONTRAST HISTORY: Left shoulder pain. Shoulder osteoarthritis. TECHNIQUE: Multiple axial images were obtained of the left shoulder without contrast. Multiplanar reformats were obtained. All CT scans at this facility use dose modulation, iterative reconstruction, and/or weight based dosing when appropriate to reduce radiation dose to as low as reasonably achievable. 3D images were obtained. COMPARISON: Shoulder radiographs June 22, 2024 FINDINGS: Degenerative changes including joint space narrowing and marginal osteophyte formation of the left glenohumeral joint. No acute fracture. Moderate degenerative changes of the acromioclavicular joint. Coronary artery calcifications are identified. IMPRESSION: Left shoulder osteoarthritis. ELECTRONICALLY SIGNED BY: Abdullahi Rao, DO Normal Not Available Comment on above: Order Comment: Send to [facility] Panel Informationon 06-22 Kassy Mckeon MA 06/22/2024 4:14 PM L Inj/Asp: L glenohumeral on 06/22/2024 3:40 PM Indications: pain Details: 25 G needle, ultrasound-guided anterolateral approach Medications: 12 mg betamethasone acetate-betamethasone sodium phosphate 6 (3-3) MG/ML Procedure, treatment alternatives, risks and benefits explained, specific risks discussed. Consent was given by the patient. Immediately prior to procedure a time out was called to verify the correct patient, procedure, equipment, it application support analyst and site/side marked as required. Patient was prepped and draped in the usual sterile fashion. [facility] XR Shoulder - left 2 Viewson 06-22-2024 Imaging Result: AP Grashey and scapular Y-view demonstrates significant AC joint osteoarthritis with type 2 bulbous acromial hook. He has associated prta-oq-lfsg changes to the humeral head and glenoid with large spur formation off the inferior glenoid and inferior humeral head. No evidence of bony tumor fracture seen. [facility] Radiology Study observation (narrative) [facility] Outside Recordson 05-16-2024 Outside Records [id number]#1.00O [facility] Main OR Intraoperative Recor don 04-26-2024 Main OR Intraoperative Record Main OR Intraoperative Record IntraOp Document Type FTPM Summary Primary Physician: García Castro DO Finalized Date/Time: 04/26/24 14:17:10 Pt. Name: BARRY GALDAMEZ/Sex: 1955 Male Med Rec #: [id number] Physician: García Castro DO Financial #: [id number] Pt. Type: P Room/Bed: / Admit/Disch: 04/26/24 12:25:59 - Institution: Case Times FTPM Entry 1 Patient Times In Room 04/26/24 14:08:00 Out Room 04/26/24 14:16:00 Procedure Times Start 04/26/24 14:11:00 Stop 04/26/24 14:15:00 Anesthesia Times Last Modified By: Annaeblle TREVIZO, Iwona Snyder 04/26/24 14:15:33 Case Attendance FTPM Entry 1 Entry 2 Entry 3 Case Attendee García Castro DO, RN, Iwona Troy RN, Adry Aguirre Role Performed Surgeon - Primary Director Of Accounts Payable - Primary Scrub - Primary Time In 04/26/24 14:08:00 04/26/24 14:08:00 04/26/24 14:08:00 Time Out 04/26/24 14:16:00 04/26/24 14:16:00 04/26/24 14:16:00 Procedure SACROILIAC JOINT SACROILIAC JOINT SACROILIAC JOINT INJECTION(Bilateral, .) INJECTION(Bilateral, .) INJECTION(Bilateral, .) Comments Last Modified By: Annabelle TREVIZO, Iwona Alanis RN, Iwona Rodriguez RN 04/26/24 14:15:34 04/26/24 14:15:34 04/26/24 14:15:34 Entry 4 Case Attendee José BILLY(R)Ginny Role Performed Metal Fabrication Supervisor Time In 04/26/24 14:08:00 Time Out 04/26/24 [...] Time Out Iwona Alanis RN, Roderick RN, Adry Aguirre, García Castro DO, Christman RT(R)Ginny Time Out Complete 04/26/24 14:09:00 Outcomes Met? [...] and tissue Entry 1 Skin Integrity Intact, [place], Warm, & Skin Abnormality No Dry Outcomes [...] Large Under (more content not included)... Normal [facility] Main OR Preoperative Recordo n 04-26-2024 Main OR Preoperative Record Main OR Preoperative Record Holding Area Document Type FTPM Summary Primary Physician: García Castro DO Finalized Date/Time: 04/26/24 13:02:25 Pt. Name: BARRY GALDAMEZ Tomeka Bryant/Sex: 1955 Male Med Rec #: [id number] Physician: García Castro DO Financial #: [id number] Pt. Type: P Room/Bed: / Admit/Disch: 04/26/24 [...] glasses and life alert necklace. Pain Comment: 8/10 lower back pain Operative Site Yes Marking: [...] By: Jennifer Mendieta RN 04/26/24 13:02 Normal [facility] Outside Recordson 04-12-2024 Outside Records [id number]#1.00OT GTIFF [facility] Controlled Substances Agreem entson 03-16-2024 Controlled Substances Agreements [id number]#1.00OT GTIFF [facility] Outside Recordson 03-14-2024 Outside Records [id number]#1.00OTGT IFF [facility] Outside Recordson 03-03-2024 Outside Records [id number]#1.00OTG TIFF [facility] COIL TESTER Drug Screen-LCon 024 Test Name [id number] Invalid Interpretation Code [facility] Comment on above: Performed By: #### 1 [id number] #### [facility] [address] [place] [address] Main OR Intraoperative Recor don 02-23-2024 Main OR Intraoperative Record Main OR Intraoperative Record IntraOp Document Type FTPM Summary Primary Physician: García Castro DO Finalized Date/Time: 02/23/24 12:14:37 Pt. Name: BARRY GALDAMEZ/Sex: 1955 Male Med Rec #: [id number] Physician: García Castro DO Financial #: [id number] Pt. Type: P Room/Bed: / Admit/Disch: 02/23/24 08:39:50 - Institution: Case Times FTPM Entry 1 Patient Times In Room 02/23/24 11:33:00 Out Room 02/23/24 12:10:00 Procedure Times Start 02/23/24 11:36:00 Stop 02/23/24 12:03:00 Anesthesia Times Start 02/23/24 11:33:00 Stop 02/23/24 12:10:00 Last Modified By: Woodrow TREVIZO, Adry Aguirre 02/23/24 12:12:38 Case Attendance FTPM Entry 1 Entry 2 Entry 3 Case Attendee Abdullahi Camacho DO, Bradford A. Fish MD, Chad Madden Role Performed Anesthesiologist Surgeon - Primary Anesthesiologist of Scrap Breaker Record Time In 02/23/24 11:33:00 02/23/24 11:33:00 02/23/24 11:33:00 Time Out 02/23/24 12:10:00 02/23/24 12:10:00 02/23/24 12:10:00 Procedure MINIMALLY INVASIVE MINIMALLY INVASIVE MINIMALLY INVASIVE LUMBAR DECOMPRESSION(.) LUMBAR DECOMPRESSION(.) LUMBAR DECOMPRESSION(.) Comments Last Modified By: Woodrow RN, Adry Troy RN, Adry Troy RN, Adry Aguirre 02/23/24 12:12:39 02/23/24 12:12:39 02/23/24 12:12:39 Entry 4 Entry 5 Entry 6 Case Attendee José BILLY(R), Ginny Troy RN, Adry Alanis RN, Iwona Snyder Role Performed Metal Fabrication Supervisor Director Of Accounts Payable - Primary Scrub - Primary Time In [...] Given Participants Woodrow TREVIZO, Annabelle Noland RN, Iwona Snyder, Matthew MARTINEZ, Mariano Gifty Pineda, José Dukes RT(R), Ginny Time Out Complete [...] and tissue Entry 1 Skin Integrity Intact, [place], Warm, & Skin Abnormality Yes Dry Abnormality Location left lower extremity, Abnormality Type bruise medium sized disoloration noted to area. Outcomes Met? Yes Last Modified By: Adry Troy RN 02/23/24 11:41:54 Post-Care Text: The patient is free from signs and symptoms of injury caused by extraneous objects Patient Positioning FTP (more content not included)... Normal [facility] Main OR Preoperative Recordo n 02-23-2024 Main OR Preoperative Record Main OR Preoperative Record Holding Area Document Type FTPM Summary Primary Physician: García Castro DO Finalized Date/Time: 02/23/24 08:53:32 Pt. Name: BARRY GALDAMEZ Tomeka Bryant/Sex: 1955 Male Med Rec #: [id number] Physician: García Castro DO Financial #: [id number] Pt. Type: P Room/Bed: / Admit/Disch: 02/23/24 [...] Pain: Yes Comment: and glasses. Pain Comment: 910 lower back pain Operative Site Yes Marking: [...] By: Jennifer Mendieta RN 02/23/24 08:53 Normal [facility] Operative Reporton Operative Report Operative Report Diagnosis: [...] then advanced into the appropriate space using [id number]-hz-oeiiaeczco and confirmed by fluoroscopy and contrast spread. [...] call with any questions or issues periprocedurally. Normal [facility] Comment on above: Result Comment: Elec tronically Signed By: García Castro DO.br\Date and Time Signed: 02/23/24 12:10 EDT Insurance Correspondence Off iceon 01-01-2024 Insurance Correspondence Office [id number]#1.00TI FF Normal [facility] Office/Clinic Note-Physician on 12-31-2023 Office/Clinic Note-Physician [id number]#1.00TI FF Normal [facility] NUCLEAR STRESS TESTon 2023 NUCLEAR STRESS TEST Interpreted By: Sundar Phelan and Giannuzzi Michael STUDY: MYOCARDIAL PERFUSION STRESS TEST WITH LEXISCAN Performing facility: [facility], [address] [place] [address], [address], [address] Provider: Dariusz Fuller DO, [facility] PCP: Dr. 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 CAD; High Cholesterol; Previous FL; HTN; SOB; Fatigue; Quit smoking 50 years ago. Cardiac catheterization on 2021, 2023. PTCA on 2021. COMPARISON: Previous nuclear testing completed [id number] at [facility]. ACCESSION NUMBER(S): [id number] ORDERING CLINICIAN: ADDY FULLER TECHNIQUE: TWO DAY [...] Sundar Argueta 11/25/2023 3:51 PM Dictation workstation: [id number] [facility] EGD / Colonoscopyon 11-04-19 [facility] 11-04-2023 L Specimen: [id number] Received: 11/04/23 Status: LAYTON Narayan Num: [id number] Spec Type: Surgical Subm Dr: Sander Elias DO Tissues: A Duodenum - Biopsy (DUODENUM BIOPSY) B Gastric Biopsy (PRE-PYLORIC BIOPSY) C Esophagus Biopsy (DISTAL ESOPHAGUS BIOPSY) Procedures: HE/6, Gross/Micro L4/3 Age/ Patient Sex Location Account Attending Physician Barry Galdamez 68/M LABELL [id number] Sander Elias DO SPEC NUM: [id number] RECD: 11/04/23 [facility]: [id number] LETA: 11/04/23- SUBM DR: Sander Elias DO ENTERED: 11/04/[address] [facility] [address]: SPEC TYPE: Surgical DEPT: SNEHA VEGA ENTERED BY: [id number] RECV BY: [id number] ORDERED: HE/6, Gross/Micro L4/3 ORDERED: HE/6, Gross/Micro [...] any other specific histomorphological changes observed Specimen: [id number] Received: 11/04/23 Status: LAYTON Narayan Num: [id number] Spec Type: Surgical Subm Dr: Sander Elias DO Tissues: A Duodenum - Biopsy (DUODENUM BIOPSY) B Gastric Biopsy (PRE-PYLORIC BIOPSY) C Esophagus Biopsy (DISTAL ESOPHAGUS BIOPSY) Procedures: HE/6, Gross/Micro L4/3 Patient: Barry Galdamez [id number] (Continued) Specimen: [id number] Received: 11/04/23 (Continued) Signed (signature on file) Indigo Hickey MD 11/07/23 1849 Specimen: [id number] Received: 11/04/23 Status: LAYTON Narayan Num: [id number] Spec Type: Surgical Subm Dr: Sander Elias, Tissues: A Duodenum - Biopsy (DUODENUM BIOPSY) B Gastric Biopsy (PRE-PYLORIC BIOPSY) C Esophagus Biopsy (DISTAL ESOPHAGUS BIOPSY) Procedures: HE/Martin, Gross/Micro L4/3 Patient: Barry Galdamez [id number] (Continued) Specimen: [id number] Received: 11/04/23 (Continued) Gross Description A. The [...] colon (suboptimal bowel prep). TW/CYC CPT Codes 98432 x 3 Specimen: [id number] Received: 11/04/23 Status: LAYTON Narayan Num: [id number] Spec Type: Surgical Subm Dr: Sander Elias,DO Tissues: A Duodenum - Biopsy (DUODENUM BIOPSY) B Gastric Biopsy (PRE-PYLORIC BIOPSY) C Esophagus Biopsy (DISTAL ESOPHAGUS BIOPSY) Procedures: HE/6, Gross/Micro L4/3 Patient: Barry Galdamez [id number] (Continued) Signed (signature on file) Lawrence-Musa Hickey MD 11/07/23 1849 Normal [facility] Surgical PathologyOrdered By : Cele Gibson on 11-04-2023 [facility] Office/Clinic Note-Nurseon 0 10-27-2023 Office/Clinic Note-Nurse [id number]#1.00TIF F [facility] Outside Records Officeon Outside Records Office [id number]#1.00TI FF [facility] Laboratory Outside Office Co pyon 10-20-2023 Laboratory Outside Office Copy [id number]#1.00TIF F [facility] Consent for Treatmenton 09-18 Consent for Treatment [id number]#1.00TIF F [facility] Consent for Treatment [id number]#1.00TI FF [facility] Consultation Noteon 10-15-19 Consultation Note Patient is [...] with any questions or concerns that arise. [facility] Comment on above: Result Comment: Elec tronically Signed By: García Castro DO.br\Date and Time Signed: 10/15/23 11:29 EDT In office Testingon 10-15-19 In office Testing [id number]#1.00TIF F [facility] Office/Clinic Note-Physician on 10-15-2023 Office/Clinic Note-Physician [id number]#1.00TIF F [facility] Orders Officeon 10-15-2023 Orders Office [id number]#1.00TIF F [facility] COIL TESTER Drug Screen-LCon 024 Test Name tox flex 23 Invalid Interpretation Code [facility] Comment on above: Performed By: #### 1 [id number] #### [facility] [address] [place] [address] Patient Correspondenceon Patient Correspondence [id number]#1.00TIF F Normal [facility] Patient Correspondence [id number]#1.00TIF F Normal [facility] Patient History Officeon Patient History Office [id number]#1.00TIF F Normal [facility] Release of Records Officeon 10-15-2023 Release of Records Office [id number]#1.00TIF F Normal [facility] Basic Metabolic Panelon 09-17 Anion gap [Moles/Vol] 12.3 mmol/L Normal 6.0-15.0 [facility] Comment on above: Order Comment: WAIT TO DRAW RN BUST AT THE MOMENT WOULD LIKE TO BE PRESENT Performed By: #### B DIONE, CBC #### [facility] [address] Calcium [Mass/Vol] 8.9 mg/dL Normal 8.6-10.3 [facility] Comment on above: Order Comment: WAIT TO DRAW RN BUST AT THE MOMENT WOULD LIKE TO BE PRESENT Performed By: #### B MP, CBC #### [facility] [address] [place] [id number] [place] Chloride [Moles/Vol] 102 mmol/L Normal 98-107 [facility] Comment on above: Order Comment: WAIT TO DRAW RN BUST AT THE MOMENT WOULD LIKE TO BE PRESENT Performed By: #### B MP, CBC #### [facility] [address] [place] [id number] [place] CO2 [Moles/Vol] 28.8 mmol/L Normal 21.0-31.0 The [facility] Comment on above: Order Comment: WAIT TO DRAW RN BUST AT THE MOMENT WOULD LIKE TO BE PRESENT Performed By: #### B MP, CBC #### [address] Creatinine [Mass/Vol] 0.88 mg/dL Normal 0.70-1.30 [facility] Comment on above: Order Comment: WAIT TO DRAW RN BUST AT THE MOMENT WOULD LIKE TO BE PRESENT Performed By: #### B MP, CBC #### [address] Creatinine Clr Calc Pharmacy 106.55 Normal [facility] Comment on above: Order Comment: WAIT TO DRAW RN BUST AT THE MOMENT WOULD LIKE TO BE PRESENT Result Comment: PERF ORMED BY: [place] [address] PATHOLOGIST ORNAMENT SETTER KAREN CORONADO M.D. Performed By: #### B DIONE, CBC #### [address] GFR/1.73 sq M.predicted MDRD (S/P/Bld) [Vol rate/Area] mL/min/{1.73_m2} Normal [facility] Comment on above: Order Comment: WAIT TO DRAW RN BUST AT THE MOMENT WOULD LIKE TO BE PRESENT Performed By: #### B MP, CBC #### [address] Glucose [Mass/Vol] 116 mg/dL High 70-100 [facility] Comment on above: Order Comment: WAIT TO DRAW RN BUST AT THE MOMENT WOULD LIKE TO BE PRESENT Result Comment: [place] Glucose Reference Range is dependent on time and content of last meal. Glucose of more than 200 mg/dL in a nonstressed, ambulatory subject supports the diagnosis of Diabetes Mellitus. ADA recommended reference range Performed By: #### B MP, CBC #### [address] Potassium [Moles/Vol] 4.1 mmol/L Normal 3.5-5.1 [facility] Comment on above: Order Comment: WAIT TO DRAW RN BUST AT THE MOMENT WOULD LIKE TO BE PRESENT Performed By: #### B MP, CBC #### [facility] [address] Sodium [Moles/Vol] 139 mmol/L Normal 136-145 [facility] Comment on above: Order Comment: WAIT TO DRAW RN BUST AT THE MOMENT WOULD LIKE TO BE PRESENT Performed By: #### B MP, CBC #### [facility] [address] Urea nitrogen [Mass/Vol] 18 mg/dL Normal 7-25 [facility] Comment on above: Order Comment: WAIT TO DRAW RN BUST AT THE MOMENT WOULD LIKE TO BE PRESENT Performed By: #### B MP, CBC #### [facility] [address] Basophils Auto (Bld) [#/Vol] Ordered By: Maya Read on 10-01-2023 Basophils (Bld) [#/Vol] 0.1 10*3/uL 0.0-0.2 [facility] Basophils/100 WBC Auto (Bld) Ordered By: Maya Read on 10-01-2023 Basophils/100 WBC (Bld) 0.6 % . F [facility] Calcium [Mass/volume] in Ser um or PlasmaOrdered By: Maya Read on 10-01-2023 Calcium [Mass/Vol] 8.9 mg/dL 8.6-10.3 [facility] Carbon dioxide, total [Moles /volume] in Serum or PlasmaOrdered By: Maya Read on 10-01-2023 CO2 [Moles/Vol] 28.8 mmol/L 21.0-31.0 [facility] Chloride [Moles/volume] in S jada or PlasmaOrdered By: Maya Read on 10-01-2023 Chloride [Moles/Vol] 102 mmol/L 98-107 [facility] Complete Blood Count Auto Di ffon 10-01-2023 Basophils (Bld) [#/Vol] 0.1 10*3/uL Normal 0.0-0.2 [facility] Comment on above: Order Comment: WAIT TO DRAW RN BUST AT THE MOMENT WOULD LIKE TO BE PRESENT Result Comment: PERF ORMED BY: [place] [address] PATHOLOGIST ORNAMENT SETTER KAREN CORONADO M.D. Performed By: #### B MP, CBC #### [address] Basophils/100 WBC (Bld) 0.6 % Normal . T ashish [facility] Comment on above: Order Comment: WAIT TO DRAW RN BUST AT THE MOMENT WOULD LIKE TO BE PRESENT Performed By: #### B MP, CBC #### [address] Eosinophils (Bld) [#/Vol] 0.3 10*3/uL Normal 0.0-0.45 [facility] Comment on above: Order Comment: WAIT TO DRAW RN BUST AT THE MOMENT WOULD LIKE TO BE PRESENT Performed By: #### B MP, CBC #### [address] Eosinophils/100 WBC (Bld) 2.3 % Normal . [facility] Comment on above: Order Comment: WAIT TO DRAW RN BUST AT THE MOMENT WOULD LIKE TO BE PRESENT Performed By: #### B MP, CBC #### [address] Erythrocyte distribution width (RBC) [Ratio] 14.4 % Normal 12.0-14.8 [facility] Comment on above: Order Comment: WAIT TO DRAW RN BUST AT THE MOMENT WOULD LIKE TO BE PRESENT Performed By: #### B MP, CBC #### [address] Hematocrit (Bld) [Volume fraction] 36.7 % Low 38.8-50.0 [facility] Comment on above: Order Comment: WAIT TO DRAW RN BUST AT THE MOMENT WOULD LIKE TO BE PRESENT Performed By: #### B MP, CBC #### [address] Hemoglobin (Bld) [Mass/Vol] 12.0 g/dL Low 13.0-17.0 [facility] Comment on above: Order Comment: WAIT TO DRAW RN BUST AT THE MOMENT WOULD LIKE TO BE PRESENT Performed By: #### B MP, CBC #### [address] Lymphocytes (Bld) [#/Vol] 2.4 10*3/uL Normal 1.00-4.8 [facility] Comment on above: Order Comment: WAIT TO DRAW RN BUST AT THE MOMENT WOULD LIKE TO BE PRESENT Performed By: #### B MP, CBC #### [address] Lymphocytes/100 WBC (Bld) 21.1 % Normal . [facility] Comment on above: Order Comment: WAIT TO DRAW RN BUST AT THE MOMENT WOULD LIKE TO BE PRESENT Performed By: #### B MP, CBC #### [address] MCH (RBC) [Entitic mass] 26.1 pg Low 27.5-35.2 [facility] Comment on above: Order Comment: WAIT TO DRAW RN BUST AT THE MOMENT WOULD LIKE TO BE PRESENT Performed By: #### B MP, CBC #### [address] MCV (RBC) [Entitic vol] 80.0 fL Low 83.5-101 T he [facility] Comment on above: Order Comment: WAIT TO DRAW RN BUST AT THE MOMENT WOULD LIKE TO BE PRESENT Performed By: #### B MP, CBC #### [address] Mean Corpuscular HGB Conc 32.6 g/dL Normal 32.5-35.6 [facility] Comment on above: Order Comment: WAIT TO DRAW RN BUST AT THE MOMENT WOULD LIKE TO BE PRESENT Performed By: #### B MP, CBC #### [address] Monocytes (Bld) [#/Vol] 0.9 10*3/uL High 0.0-0.8 [facility] Comment on above: Order Comment: WAIT TO DRAW RN BUST AT THE MOMENT WOULD LIKE TO BE PRESENT Performed By: #### B MP, CBC #### [place] [address] Monocytes/100 WBC (Bld) 8.2 % Normal . T he [facility] Comment on above: Order Comment: WAIT TO DRAW RN BUST AT THE MOMENT WOULD LIKE TO BE PRESENT Performed By: #### B MP, CBC #### [address] Neutrophils (Bld) [#/Vol] 7.6 10*3/uL Normal 1.8-7.7 [facility] Comment on above: Order Comment: WAIT TO DRAW RN BUST AT THE MOMENT WOULD LIKE TO BE PRESENT Performed By: #### B MP, CBC #### [address] Neutrophils/100 WBC (Bld) 67.8 % Normal . [facility] Comment on above: Order Comment: WAIT TO DRAW RN BUST AT THE MOMENT WOULD LIKE TO BE PRESENT Performed By: #### B MP, CBC #### [address] NRBC% 0.0 /100{WBC} Normal 0-0.5 The [facility] Comment on above: Order Comment: WAIT TO DRAW RN BUST AT THE MOMENT WOULD LIKE TO BE PRESENT Performed By: #### B MP, CBC #### [address] Platelet mean volume (Bld) [Entitic vol] 6.9 fL Normal 6.6-10.1 The [facility] Comment on above: Order Comment: WAIT TO DRAW RN BUST AT THE MOMENT WOULD LIKE TO BE PRESENT Performed By: #### B MP, CBC #### [address] Platelets (Bld) [#/Vol] 317 10*3/uL Normal 150-450 [facility] Comment on above: Order Comment: WAIT TO DRAW RN BUST AT THE MOMENT WOULD LIKE TO BE PRESENT Performed By: #### B MP, CBC #### [address] RBC (Bld) [#/Vol] 4.59 10*6/uL Normal 3.90-5.60 The [facility] Comment on above: Order Comment: WAIT TO DRAW RN BUST AT THE MOMENT WOULD LIKE TO BE PRESENT Performed By: #### B MP, CBC #### [facility] [address] WBC (Bld) [#/Vol] 11.2 10*3/uL High 4.1-10.5 The [facility] Comment on above: Order Comment: WAIT TO DRAW RN BUST AT THE MOMENT WOULD LIKE TO BE PRESENT Performed By: #### B MP, CBC #### [facility] [address] Creatinine [Mass/volume] in Serum or PlasmaOrdered By: Maya Read on 10-01-2023 Creatinine [Mass/Vol] 0.88 mg/dL 0.70-1.30 [facility] Eosinophils Auto (Bld) [#/Vo l]Ordered By: Maya Read on 10-01-2023 Eosinophils (Bld) [#/Vol] 0.3 10*3/uL 0.0-0.45 [facility] Eosinophils/100 WBC Auto (Bl d)Ordered By: Maya Read on 10-01-2023 Eosinophils/100 WBC (Bld) 2.3 % . [facility] Erythrocyte distribution wid th Auto (RBC) [Ratio]Ordered By: Maya Read on 10-01-2023 Erythrocyte distribution width (RBC) [Ratio] 14.4 % 12.0-14.8 [facility] Glucose [Mass/volume] in Ser um or PlasmaOrdered By: Maya Read on 10-01-2023 Glucose [Mass/Vol] 116 mg/dL 70-100 [facility] Comment on above: ADA recommended refe rence rangeRandom Glucose Reference Range is dependent on time and content of last meal. Glucose of more than 200 mg/dL in a nonstressed, ambulatory subject supports the diagnosis of Diabetes Mellitus. Hematocrit Auto (Bld) [Volum e fraction]Ordered By: Maya Read on 10-01-2023 Hematocrit (Bld) [Volume fraction] 36.7 % 38.8-50.0 [facility] Hemoglobin [Mass/volume] in BloodOrdered By: Maya Read on 10-01-2023 Hemoglobin (Bld) [Mass/Vol] 12.0 g/dL 13.0-17.0 [facility] Leukocytes [#/volume] correc jorge for nucleated erythrocytes in Blood by Automated counOrdered By: aMya Read on 10-01-2023 WBC corrected for nucl RBC Auto (Bld) [#/Vol] 11.2 10*3/uL 4.1-10.5 [facility] Lymphocytes Auto (Bld) [#/Vo l]Ordered By: Maya Read on 10-01-2023 Lymphocytes (Bld) [#/Vol] 2.4 10*3/uL 1.00-4.8 [facility] Lymphocytes/100 WBC Auto (Bl d)Ordered By: Maya Read on 10-01-2023 Lymphocytes/100 WBC (Bld) 21.1 % . [facility] MCH Auto (RBC) [Entitic mass ]Ordered By: Maya Read on 10-01-2023 MCH (RBC) [Entitic mass] 26.1 pg 27.5-35.2 [facility] MCHC Auto (RBC) [Mass/Vol]Or dered By: Maya Read on 10-01-2023 MCHC (RBC) [Mass/Vol] 32.6 g/dL 32.5-35.6 [facility] MCV Auto (RBC) [Entitic vol] Ordered By: Maya Read on 10-01-2023 MCV (RBC) [Entitic vol] 80.0 fL 83.5-101 F [facility] Monocytes Auto (Bld) [#/Vol] Ordered By: Maya Read on 10-01-2023 Monocytes (Bld) [#/Vol] 0.9 10*3/uL 0.0-0.8 [facility] Monocytes/100 WBC Auto (Bld) Ordered By: Maya Read on 10-01-2023 Monocytes/100 WBC (Bld) 8.2 % . F [facility] Neutrophils Auto (Bld) [#/Vo l]Ordered By: Maya Read on 10-01-2023 Neutrophils (Bld) [#/Vol] 7.6 10*3/uL 1.8-7.7 [facility] Neutrophils/100 WBC Auto (Bl d)Ordered By: Maya Read on 10-01-2023 Neutrophils/100 WBC (Bld) 67.8 % . [facility] No Panel InformationOrdered By: Maya Read on 10-01-2023 Estimated GFR (CKD-EPI) > 60.0 mL/Min [facility] Creatinine Clearance (Chem 106.55 [facility] Nucleated erythrocytes [Pres ence] in Blood by Automated countOrdered By: Maya Read on 10-01-2023 Nucleated RBC Auto Ql (Bld) 0.0 /100{WBC} 0-0.5 [facility] Platelet mean volume Auto (B ld) [Entitic vol]Ordered By: Maya Read on 10-01-2023 Platelet mean volume (Bld) [Entitic vol] 6.9 fL 6.6-10.1 [facility] Platelets Auto (Bld) [#/Vol] Ordered By: Maya Read on 10-01-2023 Platelets (Bld) [#/Vol] 317 10*3/uL 150-450 [facility] Potassium [Moles/volume] in Serum or PlasmaOrdered By: Maya Read on 10-01-2023 Potassium [Moles/Vol] 4.1 mmol/L 3.5-5.1 [facility] RBC Auto (Bld) [#/Vol]Ordere d By: Maya Read on 10-01-2023 RBC (Bld) [#/Vol] 4.59 10*6/uL 3.90-5.60 [facility] Serum or plasma anion gap de terminationOrdered By: Maya Read on 10-01-2023 Anion gap [Moles/Vol] 12.3 mmol/L 6.0-15.0 [facility] Sodium [Moles/volume] in Ser um or PlasmaOrdered By: Maya Read on 10-01-2023 Sodium [Moles/Vol] 139 mmol/L 136-145 [facility] Urea nitrogen [Mass/volume] in Serum or PlasmaOrdered By: Isaiahalessandro Read on 10-01-2023 Urea nitrogen [Mass/Vol] 18 mg/dL 7-25 [facility] WBC Auto (Bld) [#/Vol]Ordere d By: Maya Hayessif on 10-01-2023 WBC (Bld) [#/Vol] 11.2 10*3/uL 4.1-10.5 [facility] A1C with Estimated Average Dorothy bentley 09-30-2023 Glucose [Mass/Vol] 134 mg/dL Normal [facility] Comment on above: Result Comment: PERF ORMED BY: [place] [address] PATHOLOGIST ORNAMENT SETTER KAREN CORONADO M.D. Performed By: #### A 1C [facility] eA #### [address] HbA1c (Bld) [Mass fraction] 6.3 % High 4.3-5.6 [facility] Comment on above: Result Comment: Incr eased risk for diabetes: 5.7 - 6.4 diabetes: >6.4 glycemic control for adults with diabetes: <7.0 Performed By: #### A 1C [facility] eA #### [address] Activated partial thrombopla stin time (aPTT) in platelet poor plasma by coagulation aOrdered By: Singh Mack on 09-30-2023 aPTT Coag (PPP) [Time] 38.4 s 25.1-36.5 [facility] Comment on above: A hematocrit value g reater than 55% may lead to inaccurate results in coagulation testing. Patients having hematocrit values >55% require a special collection tube for coagulation studies. Please contact the laboratory at [phone] for redraw instructions. Basic Metabolic Panelon 09-17 Anion gap [Moles/Vol] 11.8 mmol/L Normal 6.0-15.0 Th e [facility] Comment on above: Performed By: #### H S TROP, MG, LIPID, BMP #### [facility] [address] Calcium [Mass/Vol] 8.8 mg/dL Normal 8.6-10.3 [facility] Comment on above: Performed By: #### H S TROP, MG, LIPID, BMP #### [facility] [address] [place] [address] [place] Chloride [Moles/Vol] 102 mmol/L Normal 98-107 [facility] Comment on above: Performed By: #### H S TROP, MG, LIPID, BMP #### [address] CO2 [Moles/Vol] 27.4 mmol/L Normal 21.0-31.0 [facility] Comment on above: Performed By: #### H S TROP, MG, LIPID, BMP #### [place] [address] [place] Creatinine [Mass/Vol] 0.70 mg/dL Normal 0.70-1.30 [facility] Comment on above: Performed By: #### H S TROP, MG, LIPID, BMP #### [place] [address] [place] Creatinine Clr Calc Pharmacy 117.20 Normal [facility] Comment on above: Performed By: #### H S TROP, MG, LIPID, BMP #### [place] [address] [place] GFR/1.73 sq M.predicted MDRD (S/P/Bld) [Vol rate/Area] mL/min/{1.73_m2} Normal [facility] Comment on above: Performed By: #### H S TROP, MG, LIPID, BMP #### [place] [address] [place] Glucose [Mass/Vol] 101 mg/dL High 70-100 [facility] Comment on above: Result Comment: [place] Glucose Reference Range is dependent on time and content of last meal. Glucose of more than 200 mg/dL in a nonstressed, ambulatory subject supports the diagnosis of Diabetes Mellitus. ADA recommended reference range Performed By: #### H S TROP, MG, LIPID, BMP #### [address] [place] [address] [place] Potassium [Moles/Vol] 4.2 mmol/L Normal 3.5-5.1 [facility] Comment on above: Performed By: #### H S TROP, MG, LIPID, BMP #### [facility] [address] [place] [address] [place] Sodium [Moles/Vol] 137 mmol/L Normal 136-145 [facility] Comment on above: Performed By: #### H S TROP, MG, LIPID, BMP #### [facility] [address] [place] [address] [place] Urea nitrogen [Mass/Vol] 24 mg/dL Normal 7-25 [facility] Comment on above: Performed By: #### H S TROP, MG, LIPID, BMP #### [facility] [address] [place] [id number] [place] Cholesterol [Mass/volume] in Serum or PlasmaOrdered By: Maya Read on 09-30-2023 Cholesterol [Mass/Vol] 89 mg/dL 140-200 [facility] Comment on above: Chol less than 200 m g/dl low riskChol 201-239 mg/dl borderline riskChol 240 mg/dl and greater high risk Cholesterol in LDL Calc [Mas s/Vol]Ordered By: Maya Read on 09-30-2023 Cholesterol in LDL [Mass/Vol] 39 mg/dL 0-100 [facility] Comment on above: LDL ATP III CLASSIFI CATIONLDL less than 100 mg/dL OptimalLDL 100-129 mg/dL Near or above optimalLDL 130-159 mg/dL Borderline highLDL 160-189 mg/dL HighLDL greater than 189 mg/dL Very high Cholesterol in VLDL Calc [Ma ss/Vol]Ordered By: Maya Read on 09-30-2023 Cholesterol in VLDL [Mass/Vol] 20 mg/dL [facility] ECG 12 lead ECGon 09-30-2023 ECG 12 lead ECG [facility] Main [place] [address] [place] [address] Electrocardiograph Report Signed Patient: Barry Galdamez MR#: [id number] 41 : 1955 Acct:[id number] Age/Sex: 68 / M ADM Date: 09/30/23 Loc: Room: [address] [place] [address] Type: ADM IN Attending Dr: Juaquin Mckinley [...] was found Confirmed by BARBARA RIVAS MD (Critical access hospital) on 09/30/2023 7:29:27 AM Referred By: Electronically Signed By:BARBARA RIVAS MD Transcribed By: MUS Signed By Barbara Rivas MD 0 09/30/23 0729 Normal [facility] Glucose mean value [Mass/vol ume] in Blood Estimated from glycated hemoglobinOrdered By: Singh Mack on 09-30-2023 Average glucose Estimated from glycated hemoglobin (Bld) [Mass/Vol] 134 mg/dL [facility] Hemoglobin A1c percentageOrd ered By: Singh Mack on 09-30-2023 HbA1c (Bld) [Mass fraction] 6.3 % 4.3-5.6 [facility] Comment on above: Increased risk for d iabetes: 5.7 - 6.4diabetes: >6.4glycemic control for adults with diabetes: <7.0 Intra[employer] Documentson 0 09-30-2023 IntraOperative Documents [id number] FF Normal [facility] Lipid Panelon 09-30-2023 Cholesterol [Mass/Vol] 89 mg/dL Low 140-200 Th e [facility] Comment on above: Result Comment: Chol less than 200 mg/dl low risk Chol 201-239 mg/dl borderline risk Chol 240 mg/dl and greater high risk Performed By: #### A [facility] eA #### [facility] [address] Cholesterol in HDL [Mass/Vol] 30 mg/dL Normal 23-92 [facility] Comment on above: Result Comment: HDL CHOL ATP-III CLASSIFICATION Cardiovascular Risk HDL > or equal to 60 mg/dL LOW HDL < 40 mg/dL HIGH Performed By: #### A [facility] eA #### [address] Cholesterol.total/Ayse sterol in HDL [Mass ratio] 3.0 {ratio} Normal <5.0 [facility] Comment on above: Result Comment: PERF ORMED BY: [place] [address] PATHOLOGIST ORNAMENT SETTER KAREN CORONADO M.D. Performed By: #### A [facility] eA #### [address] LDL Cholesterol,Calculated 39 mg/dL Normal 0-100 [facility] Comment on above: Result Comment: LDL ATP III CLASSIFICATION LDL less than 100 mg/dL Optimal LDL 100-129 mg/dL Near or above optimal LDL 130-159 mg/dL Borderline high LDL 160-189 mg/dL High LDL greater than 189 mg/dL Very high Performed By: #### A 1C [facility] eA #### [place] [address] [place] Triglyceride w/Reflex 101 mg/dL Normal 0-149 [facility] Comment on above: Result Comment: TRIG ATP III CLASSIFICATION TRIG less than 150 mg/dL Normal TRIG 150-199 mg/dL Borderline high TRIG 200-500 mg/dL High TRIG greater than 500 mg/dL Very high Standard traceable to the Center for Disease Conrtrol and Prevention (CDC) test method. Performed By: #### A 1C [facility] eA #### [facility] [address] [place] [id number] [facility] VLDL CHOLESTEROL 20 mg/dL Normal [facility] Comment on above: Performed By: #### A 1C [facility] eA #### [facility] [address] [place] [id number] [facility] Magnesiumon 09-30-2023 Magnesium [Mass/Vol] 1.8 mg/dL Low 1.9-2.7 [facility] Comment on above: Performed By: #### H S TROP, MG, LIPID, BMP #### [address] Magnesium [Mass/volume] in S jada or PlasmaOrdered By: Maya Read on 09-30-2023 Magnesium [Mass/Vol] 1.8 mg/dL 1.9-2.7 [facility] Monitor Recordon 09-30-2023 Monitor Record [id number] FF Normal [facility] Partial Thromboplastin Timeo n 09-30-2023 aPTT Coag (Bld) [Time] 38.4 s High 25.1-36.5 Th e [facility] Comment on above: Result Comment: A he matocrit value greater than 55% may lead to inaccurate results in coagulation testing. Patients having hematocrit values >55% require a special collection tube for coagulation studies. Please contact the laboratory at [phone] for redraw instructions. PERFORMED BY: [place] [address] PATHOLOGIST ORNAMENT SETTER KAREN CORONADO M.D. Performed By: #### A 1C [facility] eA #### [address] aPTT Coag (Bld) [Time] 39.0 s High 25.1-36.5 Th e [facility] Comment on above: Result Comment: A he matocrit value greater than 55% may lead to inaccurate results in coagulation testing. Patients having hematocrit values >55% require a special collection tube for coagulation studies. Please contact the laboratory at [phone] for redraw instructions. PERFORMED BY: [place] [address] PATHOLOGIST ORNAMENT SETTER KAREN CORONADO M.D. Performed By: #### P TT #### [address] Serum or plasma high density lipoprotein (HDL) cholesterol measurementOrdered By: Maya Read on 09-30-2023 Cholesterol in HDL [Mass/Vol] 30 mg/dL 23-92 [facility] Comment on above: HDL CHOL ATP-III CLA SSIFICATION Cardiovascular RiskHDL > or equal to 60 mg/dL LOWHDL < 40 mg/dL HIGH Serum or plasma total choles terol/high density lipoprotein (HDL) cholesterol mass ratOrdered By: Maya Read on 09-30-2023 Cholesterol.total/Ayse sterol in HDL [Mass ratio] 3.0 {ratio} <5.0 [facility] Triglyceride [Mass/volume] i n Serum or PlasmaOrdered By: Maya Read on 09-30-2023 Triglyceride [Mass/Vol] 101 mg/dL 0-149 F [facility] Comment on above: TRIG ATP III CLASSIF ICATIONTRIG less than 150 mg/dL NormalTRIG 150-199 mg/dL Borderline highTRIG 200-500 mg/dL High TRIG greater than 500 mg/dL Very highStandard traceable to the Center for Disease Conrtrol and Prevention (CDC) test method. Troponin I High Sensitivityo n 09-30-2023 Troponin I High Sensitivity 976.8 pg/mL Off scale high 0.0-20.0 [facility] Comment on above: Result Comment: Crit ical Result : Called to and read back by: RAMO GARRISON at: 09/30/2023 10:10:05 by:[id number] PERFORMED BY: [place] [address] PATHOLOGIST ORNAMENT SETTER KAREN CORONADO M.D. Performed By: #### A 1C [facility] #### [address] Troponin I High Sensitivity 1175.9 pg/mL Off scale high 0.0-20.0 [facility] Comment on above: Result Comment: Crit ical Result : Called to and read back by: JARON GERONIMO at: 09/30/2023 03:54:06 by:[id number] PERFORMED BY: [place] [address] PATHOLOGIST ORNAMENT SETTER KAREN CORONADO M.D. Performed By: #### H S TROP, MG, LIPID, BMP #### [facility] [address] [place] [address] [facility] Troponin I High Sensitivity 1398.0 pg/mL Off scale high 0.0-20.0 [facility] Comment on above: Result Comment: Resu lts called at 0353 on 09/30/23 PERFORMED BY: [place] [address] PATHOLOGIST ORNAMENT SETTER KAREN CORONADO M.D. Performed By: #### A 1C [facility] eA #### [address] [address] [facility] Troponin I.cardiac [Mass/vol ume] in Serum or Plasma by Detection limit <= 0.01 ng/Ordered By: Maya Read on 09-30-2023 Troponin I.cardiac DL <= 0.01 ng/mL [Mass/Vol] 976.8 pg/mL 0.0-20.0 [facility] Comment on above: Critical Result : Ca lled to and read back by: RAMO GARRISON at: 09/30/2023 10:10:05 by:[id number] ECH echo transthoracicon ECH echo transthoracic [facility] Main [place] [address] [place] [address] Echocardiogram Signed Patient: Barry Galdamez MR#: [id number] 41 : 1955 Acct:[id number] Age/Sex: 68 / M ADM Date: 09/30/23 Loc: Room: [address] [place] [address] Type: ADM IN Attending Dr: Juaquin Mckinley MD Ordering Provider: Maya Read MD, RES Date of Service: 09/30/23 ECH/ECH echo transthoracic: NSTEMI Copies to: MD Maya [...] By: Barbara Rivas MD 09/30/23 1120 Normal [facility] Discharge Instructionson Discharge Instructions [id number]#[id number] FF Normal [facility] Main OR Intraoperative Recor don 09-25-2023 Main OR Intraoperative Record IntraOp Document Type FT Summary Primary Physician: Igor FARFAN, Hui Pineda Finalized Date/Time: 09/25/23 14:06:26 Pt. Name: BARRY GALDAMEZ D.O.B./Sex: 1955 Male Med Rec #: [id number] Physician: Erwin VALADEZ DO Financial #: [id number] Pt. Type: O Room/Bed: [place] [address] Admit/Disch: 09/22/23 20:07:00 - 09/23/23 14:55:00 Institution: [...] Igor FARFAN, Hui Agosto RN, Corrina Tyler HARDWARE INSTALLATION COORDINATOR, Aurora Cabrera Role Performed Surgeon - Primary Director Of Accounts Payable - Primary HARDWARE INSTALLATION COORDINATOR Time In 09/23/23 08:53:00 09/23/23 08:53:00 09/23/23 [...] Hui Costa MD, Given Participants Triny TREVIZO, Jyason Trivedi CRNA, Brandy J., Sparks, Micala E, [...] and tissue Entry 1 Skin Integrity Intact, [place], Warm, and Skin Abnormality No Dry Outcomes [...] Arm Po (more content not included)... Normal [facility] Progress Note-Physicianon Progress Note-Physician Patient: BARRY [...] Problems Weak urine stream / SNOMED CT 659492422 / Confirmed Screening PSA (prostate specific antigen) / SNOMED CT 887972732 / Confirmed Osteoarthritis / SNOMED CT 6416733919 / Confirmed Nocturia / SNOMED CT 438205749 / Confirmed Impingement syndrome of right shoulder / SNOMED CT 281523796 / Confirmed HTN (hypertension) / SNOMED CT 3761277499 / Confirmed Hypertension / SNOMED CT 7068970431 / Confirmed Erectile dysfunction / SNOMED CT 3614239847 / Confirmed Depression / SNOMED CT 14310031 / Confirmed Carpal tunnel syndrome of right wrist / SNOMED CT 64938285 / Confirmed Asymptomatic microscopic hematuria / SNOMED CT 4578571496 / Confirmed Asthma / SNOMED CT 921560125 / Confirmed Arthritis / SNOMED CT 0344864 / Confirmed Hip pain, left / SNOMED CT 5917373672 / Confirmed DJD Resolved: At risk for falls / SNOMED CT 930580359 Problem added when Risk for Falls Careplan was initiated. Resolved due to patient discharge. Histories Procedure history: Left L4/5 Transforaminal Epidural Steroid Injections (9582696406) on 06/25/2023 at 67 Years. Comments: 07/31/2023 10:10 Brianna Echeverria 10% relief L5/S1 TASHA (9231410417) on 05/19/2023 at 67 Years. Comments: 06/05/2023 11:07 Theodora Oh RN L5/S1 TASHA 70% relief L5-S1 TASHA (5287642655) on 12/10/2022 at 67 Years. Comments: 01/09/2023 13:14 JAMA Troy RN, Adry Agurire L5-S1 TASHA-100% relief Arthroscopy of shoulder (334222635) on 04/13/2018 at 62 Years. Comments: 04/13/2018 14:52 JAMA Rust RN, Marti right .distal claviculectomy .extensive debridement ,subacromial decompression. Carpal tunnel release (399416142) on 04/13/2018 at 62 Years. Comments: 04/13/2018 14:52 Marti Trinidad RN right Hip arthroplasty (634792450) on 09/29/2017 at 62 Years. Comments: 09/29/2017 14:17 Imelda Palencia RN left Left hip arthrogram on 12/03/2016 at 61 Years. Appendectomy; (28900). Colonoscopy (528765341). Tooth extraction, complete mouth (67428887). Stent (692074609). Comments: 09/04/2022 14:42 JAIME - Anam TREVIZO, Jennifer Eckert cardiac Social [...] adequate air exchange. Cardiovascular: Regular rhythm. Plan [place] [employer] Anesthesiologists (ASA) physical status classification: Class III. Anesthetic Preoperative Plan: Anesthesia General. Normal [facility] Comment on above: Result Comment: Elec [...] when meets criteria ( To home ). [facility] Comment on above: Result Comment: Elec tronically Signed By: Chad Shaw Jr, DO\.deborah\Date and Time Signed: 09/25/23 13:53 EST [place] 09-24-2023 Consent [id number]#1.00TI FF [facility] Facesheeton 09-24-2023 Facesheet [id number]#1.00TI FF Normal [facility] Outside Recordson 09-24-2023 Outside Records [id number]#1.00TI FF Normal [facility] Transfer Documentson 024 Transfer Documents [id number]#1.00TI FF Normal [facility] BMPon 09-23-2023 Anion gap [Moles/Vol] 9 mmol/L Normal 6-16 [facility] Comment on above: Performed By: #### 2 922821, 50534066, 28717838, 7971356 ####[facility] [address] [place] [address] Calcium [Mass/Vol] 9.0 mg/dL Normal 8.9-11.1 [facility] Comment on above: Performed By: #### 2 388426, 30530411, 95166190, 8082658 ####[facility] [address] [place] [address] Chloride [Moles/Vol] 104 mmol/L Normal 101-111 [facility] Comment on above: Performed By: #### 2 059079, 57784498, 05385816, 9818967 ####[facility] [address] [place] [address] CO2 [Moles/Vol] 31 mmol/L Normal 21-31 [facility] Comment on above: Performed By: #### 2 139601, 83295238, 75153249, 5921089 ####[facility] [address] [place] [address] Creatinine [Mass/Vol] 0.8 mg/dL Normal 0.5-1.3 [facility] Comment on above: Performed By: #### 2 782710, 18357094, 35475162, 1704081 ####[facility] [address] [place] [address] Glucose [Mass/Vol] 96 mg/dL Normal 55-199 [facility] Comment on above: Performed By: #### 2 182367, 28537128, 31681905, 8382989 ####[facility] [address] [place] [address] Potassium [Moles/Vol] 4.4 mmol/L Normal 3.5-5.3 Fis [facility] Comment on above: Performed By: #### 2 085693, 71264540, 98982179, 4459636 ####[facility] [address] [place] [address] Sodium [Moles/Vol] 140 mmol/L Normal 135-145 [facility] Comment on above: Performed By: #### 2 581278, 36109720, 51733431, 5728533 ####[facility] [address] [place] [address] Urea nitrogen [Mass/Vol] 21 mg/dL Normal 5-21 [facility] Comment on above: Performed By: #### 2 272513, 54480206, 45781823, 0693461 ####[facility] [address] [place] [address] Urea nitrogen/Creatinine [Mass ratio] 26 No Units High 10-20 [facility] Comment on above: Performed By: #### 2 256405, 68480299, 16535418, 7756053 ####[facility] [address] [place] [address] CBC w/ Auto Diffon 4 Basophils/100 WBC (Bld) 0.5 % Normal 0.0-2.0 F [facility] Comment on above: Performed By: #### 2 431138, 22500322, 15195040, 5510300 ####[place] [place] [address] Basophils/Leukocytes Auto (Bld) [Pure # fraction] 0.1 E9/L Normal 0.0-0.2 [facility] Comment on above: Performed By: #### 2 914119, 83419647, 08006789, 1994989 ####[place] [address] [place] [address] Eosinophils (Bld) [#/Vol] 0.2 E9/L Normal 0.0-0.5 [facility] Comment on above: Performed By: #### 2 672986, 49897398, 52236963, 9295045 ####[address] [address] Eosinophils/100 WBC (Bld) 1.6 % Normal 0.0-8.0 [facility] Comment on above: Performed By: #### 2 349586, 39930349, 67529416, 0347595 ####[address] [address] Erythrocyte distribution width (RBC) [Ratio] 14.2 % Normal 10.9-14.2 [facility] Comment on above: Performed By: #### 2 813192, 49702457, 80597108, 4828844 ####[address] [address] Hematocrit (Bld) [Volume fraction] 34.4 % Low 37.7-49.0 [facility] Comment on above: Performed By: #### 2 469585, 73513635, 30586532, 7783084 ####[address] [address] Hemoglobin (Bld) [Mass/Vol] 11.3 g/dL Low 13.5-17.5 [facility] Comment on above: Performed By: #### 2 560555, 25591025, 76357757, 3126777 ####[address] [address] Lymphocytes (Bld) [#/Vol] 3.1 E9/L Normal 1.0-4.0 [facility] Comment on above: Performed By: #### 2 763293, 97307820, 45839189, 8473567 ####[address] [address] Lymphocytes/100 WBC (Bld) 26.5 % Normal 14.0-50.0 [facility] Comment on above: Performed By: #### 2 081238, 15228380, 23054686, 8769250 ####[address] [address] MCH (RBC) [Entitic mass] 26.3 pg Low 27.0-34.0 [facility] Comment on above: Performed By: #### 2 043488, 84781166, 78401883, 1949549 ####[address] [address] MCHC (RBC) [Mass/Vol] 32.9 g/dL Normal 31.4-36.0 [facility] Comment on above: Performed By: #### 2 897489, 35396945, 91513557, 8275858 ####[address] [address] MCV (RBC) [Entitic vol] 80.1 fL Normal 80.0-100.0 [facility] Comment on above: Performed By: #### 2 425857, 69020502, 03593896, 7505818 ####[address] [address] Monocytes (Bld) [#/Vol] 0.8 E9/L Normal 0.2-1.0 [facility] Comment on above: Performed By: #### 2 993645, 16766654, 48677371, 4666784 ####[address] [address] Neutrophils (Bld) [#/Vol] 7.7 E9/L High 2.0-7.5 [facility] Comment on above: Performed By: #### 2 753606, 70607436, 84302656, 5822801 ####[address] [address] Neutrophils/100 WBC (Bld) 64.5 % Normal 36.0-75.0 [facility] Comment on above: Performed By: #### 2 289005, 19058140, 13755595, 0693068 ####[facility] [address] [place] [address] Platelet mean volume (Bld) [Entitic vol] 7.2 fL Normal 6.4-10.8 [facility] Comment on above: Performed By: #### 2 182838, 20253424, 79153557, 6649024 ####[facility] [address] [place] [address] Platelets (Bld) [#/Vol] 240.0 E9/L Normal 150. 0-500. 0 [facility] Comment on above: Performed By: #### 2 428016, 54898959, 09204144, 4320971 ####[address] [place] [address] RBC (Bld) [#/Vol] 4.3 E12/L Normal 4.3-5.9 [facility] Comment on above: Performed By: #### 2 501674, 06889012, 75039991, 6164736 ####[facility] [address] [place] [address] WBC corrected for nucl RBC Auto (Bld) [#/Vol] 11.9 E9/L High 4.0-11.0 [facility] Comment on above: Performed By: #### 2 835762, 11051040, 31130869, 5872348 ####[address] [address] Consultation Noteon 09-23-19 Consultation Note Patient: MANPREET [...] day(s), # 135 tab(s), Refills(s) 1, Pharmacy: [facility]/pharmacy #[id number], 183, cm, 07/31/23 10:16:00 EST, [...] and Plan EGD: Diagnosis: Esophageal foreign body ([id number]-ZU T18.108A, Discharge, Medical). Course: Progressing as expected. Education and Follow-up: Counseled. Notes: Obtain H. pylori stool antigen Start PPI once daily Repeat EGD after 3 months to obtain esophageal and stomach biopsies. Normal [facility] Comment on above: Result Comment: erro r Electronically Signed By: Igor FARFAN, Hui Pineda\.br\Date and Time Signed: 09/23/23 09:09 EST EGDon 09-23-2023 Esophagogastroduodenosc opy Patient: BARRY GALDAMEZ Age: 68 years Sex: Male : 1955 Associated Diagnoses: None Author: Hui Costa MD History of Present Illness Gastroenterology Consult 28-ypie[age]tt-year-old male with past medical history of coronary disease on Plavix Admitted with food bolus impaction Was eating chicken and ate through the pollen around 3 PM yesterday Presented to [facility] and evaluated with CAT scan which [...] day(s), # 135 tab(s), Refills(s) 1, Pharmacy: [facility]/pharmacy #[id number], 183, cm, 07/31/23 10:16:00 EST, [...] Mother Arthritis Mother Procedure history: Esophagogastroduodenosco py (385416078) on 09/23/2023 at 68 Years. Left L4/5 Transforaminal Epidural Steroid Injections (7620410883) on 06/25/2023 at 67 Years. Comments: 07/31/2023 10:10 Brianna Echeverria 10% relief L5/S1 TASHA (1819005526) on 05/19/2023 at 67 Years. Comments: 06/05/2023 11:07 Theodora Oh RN L5/S1 TASHA 70% relief L5-S1 TASHA (7305322018) on 12/10/2022 at 67 Years. Comments: 01/09/2023 13:14 Adry Saab RN L5-S1 TASHA-100% relief Arthroscopy of shoulder (584873127) on 04/13/2018 at 62 Years. Comments: 04/13/2018 14:52 JAMA Rust RN, Marti right .distal claviculectomy .extensive debridement ,subacromial decompression. Carpal tunnel release (189094066) on 04/13/2018 at 62 Years. Comments: 04/13/2018 14:52 Marti Trinidad RN right Hip arthroplasty (367782232) on 09/29/2017 at 62 Years. Comments: 09/29/2017 14:17 Imelda Palencia RN left Left hip arthrogram on 12/03/2016 at 61 Years. Appendectomy; (87921). Colonoscopy (703858632). Tooth extraction, complete mouth (42501503). Stent (177526747). Comments: 09/04/2022 14:42 EST - Anam RN, Jennifer Eckert cardiac Social History Social & Psychosocia (more content not included)... Normal [facility] Esophagogastroduodenosc opy Patient: BARRY GALDAMEZ Age: [...] day(s), # 135 tab(s), Refills(s) 1, Pharmacy: [facility]/pharmacy #[id number], 183, cm, 07/31/23 10:16:00 EST, [...] and Plan EGD: Diagnosis: Esophageal foreign body (QET96-VA T18.108A, Discharge, Medical). Course: Progressing as expected. [...] September 23, 2023 9:09 EST Encounter info: [id number], Treviño - Terry, Observation, 09/22/2023 - Normal [facility] Comment on above: Result Comment: erro [...] day(s), # 135 tab(s), Refills(s) 1, Pharmacy: [facility]/pharmacy #[id number], 183, cm, 07/31/23 10:16:00 EST, [...] and Plan EGD: Diagnosis: Esophageal foreign body (WLM65-GI T18.108A, Discharge, Medical). Course: Progressing as expected. Education and Follow-up: Counseled. Notes: Obtain H. pylori stool antigen Start PPI once daily Repeat EGD after 3 months to obtain esophageal and stomach biopsies. Normal [facility] Inpatient Clinical Summaryon 09-23-2023 Inpatient Clinical Summary [address] [address] Clinical Summary Person Information: Name: BARRY GALDAMEZ Age: 68 Years : 1955 Sex: Male PCP: JOE MADDOX DO Marital Status: Phone: [phone] Race: White Ethnicity: Non- or Language: Maldivian Visit Id: Visit Reason: ESOPHAGEAL FOOD BOLUS Speciality: Acuity: Enc Type: Observation Med Service: Medical Arrival: 09/22/2023 20:07:00 Discharge: Dispo Type: Address: Critical access hospital 07/21 [facility] [id number] Provider Notes: Diagnosis: 1:Esophageal foreign body; 2:Coronary [...] up: With: Address: When: JOE MADDOX DO [address] [place] [address] 09/29/2023 3:30 PM With: Address: When: Igor FARFAN, Hui Pineda [facility], [address], [address] [place] [address] [phone] 11/30/2023 9:00 AM Comments: Will need EGD in 3 months, Plavix must be held prior to endoscopy x 5 [address] Biswas at this appoinment. Type Location Start Finish State Pain Management - Follow Up (FT) [facility] 10/01/2023 2:15 PM 10/01/2023 2:25 PM Confirmed BADH New Patient [facility] 11/30/2023 9:00 AM 11/30/2023 9:30 AM Confirmed Patient Education Information: Hiatal Hernia; Duodenitis; Upper Endoscopy, Adult, Care After; Swallowed Foreign Body, Adult Protonix Normal [facility] Inpatient Patient Summaryon 09-23-2023 Inpatient Patient Summary [address] [address] Patient Discharge Instructions PERSON INFORMATION Name: BARRY GALDAMEZ Tomeka Date of : 1955 Current Date: 09/23/2023 [...] Address: When: JOE MADDOX DO [address] [place] [address] 09/29/2023 3:30 PM With: Address: When: Igor FARFAN, Hui Pineda [facility], [address], [address] [place] [phone] 11/30/2023 9:00 AM Comments: Will need EGD [...] Management - Follow Up (FT) FT.Pain Mgmt [place] 10/01/2023 2:15 PM 10/01/2023 2:25 PM Confirmed [facility] New Patient [facility] 11/30/2023 9:00 AM 11/30/2023 9:30 AM Confirmed Comment: DENICE Pimentel WAYNE M, have received the attached patient education materials/instructions and have verbalized understanding: Patient Signature Date Clinican/Nurse Signature Date HERE ARE THE MEDICATION CHANGES THAT OCCURRED DURING YOUR HOSPITAL STAY New Medications [id number], [address] [place], [place] [phone], [phone] pantoprazole (Protonix 40 mg Tab-DR) 1 Tablets [...] every 12 emily (more content not included)... [facility] Insurance Correspondenceon 0 09-23-2023 Insurance Correspondence [id number]#1.00TIF F [facility] Insurance Correspondence Off ice09-23-2023 Insurance Correspondence Office [id number]#1.00TI FF [facility] Interdisciplinary Note - Huey e Manageron 09-23-2023 Interdisciplinary Note - Automotive Product Specialist Pt is awake and alert in bed, previously rounded with Ariana. Pt is aware of plan to DC home later today. Pt is from home with and she will transport at DC. Observation status reviewed, PCP verified and insurance information reviewed will transport at [place], decline any concerns or DC needs. Plan to DC home today. Normal [facility] Comment on above: Result Comment: Elec tronically Signed By: Cherelle TREVIZO, Callie\.deborah\Date and Time Signed: 09/23/23 10:51 EST Main OR PACU I Recordon 030 Main OR PACU I Record PACU Phase I Docum ent Type FT Summary Primary Physician: Hui Costa MD Finalized Date/Time: 09/23/23 10:12:11 Pt. Name: BARRY GALDAMEZ Tomeka Chanel./Sex: 1955 Male Med Rec #: [id number] Physician: Erwin VALADEZ DO Financial #: [id number] Pt. Type: O Room/Bed: N318 Admit/Disch: 09/22/23 [...] By: Niharika Solorzano RN 09/23/23 10:12 Normal [facility] Main OR Preoperative Recordo n 09-23-2023 Main OR Preoperative Record Holding Area Document Type FT Summary Primary Physician: Hui Costa MD Finalized Date/Time: 09/23/23 08:39:45 Pt. Name: MARIELAAlessandroBARRY D.O.B./Sex: 1955 Male Med Rec #: [id number] Physician: Erwin VALADEZ DO Financial #: [id number] Pt. Type: O Room/Bed: [place] [address] Admit/Disch: 09/22/23 20:07:00 - Institution: Case Times [...] Signed By: Mirta Gutiérrez RN 09/23/23 08:39 [facility] Message from Medicareon 03-0 Message from Medicare [id number]#1.00TIF F [facility] Monitor Recordon 09-23-2023 Monitor Record [id number]#1.00TI FF [facility] Monitor Record [id number]#1.00TI FF [facility] Patient Education - Texton 0 [...] after the procedure. General instructions ? Take mxxf-tja-lvgjtay and prescription medicines only as told by [...] the symptoms (more content not included)... Normal [facility] TSH With T4fr Reflexon 09-22 TSH Qn 3.13 m[IU]/L Normal 0.34-5.60 [facility] Comment on above: Performed By: #### 2 039821, 57866505, 45128977, 0603121 ####[facility] [address] [place] [address] eGFRon 09-23-2023 eGFR 96 mL/min/1.73 m2 Normal >=59 [facility] Comment on above: Order Comment: Order added by Discern Expert. Performed By: #### 2 615076, 39762595, 61080363, 0475622 ####[facility] [address] [place] [address] Consent for Treatmenton 07-20 Consent for Treatment [id number]#1.00TI FF Cecilia [facility] Consultation Noteon 07-31-19 Consultation Note Patient: [...] day(s), # 135 tab(s), Refills(s) 1, Pharmacy: [facility]/pharmacy #[id number], 183, cm, 07/31/23 10:16:00 EST, [...] All Problems HTN (hypertension) / SNOMED CT 1306741180 / Confirmed Hip pain, left / SNOMED CT [id number] / Confirmed DJD Nocturia / SNOMED CT 993109591 / Confirmed Asthma / SNOMED CT 630237788 / Confirmed Impingement syndrome of right shoulder / SNOMED CT 508959396 / Confirmed Carpal tunnel syndrome of right wrist / SNOMED CT 83113213 / Confirmed Osteoarthritis / SNOMED CT 1927503189 / Confirmed Arthritis / SNOMED CT 4200710 / Confirmed Depression / SNOMED CT 57397087 / Confirmed Hypertension / SNOMED CT 8354506634 / Confirmed Erectile dysfunction / SNOMED CT 6029753806 / Confirmed Asymptomatic microscopic hematuria / SNOMED CT 1256073784 / Confirmed Weak urine stream / SNOMED CT 820637661 / Confirmed Screening PSA (prostate specific antigen) / SNOMED CT 467888134 / Confirmed Resolved: At risk for falls / SNOMED CT 331844950 Problem added when Risk for Falls Careplan [...] hip flexion 5 -/5 Integumentary: Warm, Dry, [place]. Injection site well-healed Neurologic: Alert, Oriented. Psychiatric: [...] we discussed gabapen (more content not included)... [facility] Comment on above: Result Comment: Elec tronically Signed By: Romel ARCE, Ariana\.br\Date and Time Signed: 07/31/23 10:27 EST Legal Correspondence Officeo n 07-31-2023 Legal Correspondence Office [id number]#1.00TIF F [facility] Office/Clinic Note-Physician on 07-31-2023 Office/Clinic Note-Physician [id number]#1.00TIF F [facility] Patient Correspondenceon Patient Correspondence [id number]#1.00TIF F [facility] Patient Correspondence [id number]#1.00TIF F [facility] Patient Correspondence [id number]#1.00TIF F [facility] Patient Correspondence [id number]#1.00TIF F [facility] Patient History Officeon Patient History Office [id number]#1.00TIF F [facility] Consent for Procedure/Surger yon 06-25-2023 Consent for Procedure/Surgery [id number]#1.00TIF F [facility] Consent for Treatmenton Consent for Treatment [id number]#1.00TI FF [facility] Discharge Instructionson Discharge Instructions [id number]#1.00TIF F [facility] IntraOperative Documentson 08-26-2022 IntraOperative Documents [id number]#1.00TIF F [facility] Main OR Intraoperative Recor don 06-25-2023 Main OR Intraoperative Record IntraOp Document Type FTPM Summary Primary Physician: Neymar Willingham MD Finalized Date/Time: 06/25/23 13:41:33 Pt. Name: BARRY GALDAMEZ/Sex: 1955 Male Med Rec #: [id number] Physician: Neymar Willingham MD Financial #: [id number] Pt. Type: P Room/Bed: / Admit/Disch: 06/25/23 12:30:18 - Institution: Case Times FTPM Entry 1 Patient Times In Room 06/25/23 13:37:00 Out Room 06/25/23 13:42:00 Procedure Times Start 06/25/23 13:40:00 Stop 06/25/23 13:41:00 Anesthesia Times Last Modified By: Woodrow TREVIZO, Adry Aguirre 06/25/23 13:41:27 Case Attendance FTPM Entry 1 Entry 2 Entry 3 Case Attendee Tarsha FARFAN, Neymar Troy RN, Nancy Reis RN Role Performed Surgeon - Primary Director Of Accounts Payable - Primary Scrub - Primary Time In 06/25/23 13:37:00 06/25/23 13:37:00 06/25/23 13:37:00 Time Out 06/25/23 13:42:00 06/25/23 13:42:00 06/25/23 13:42:00 Procedure TRANSFORAMINAL EPIDURAL TRANSFORAMINAL EPIDURAL TRANSFORAMINAL EPIDURAL STEROID INJECTIO(Left) STEROID INJECTIO(Left) STEROID INJECTIO(Left) Comments Last Modified By: Woodrow TREVIZO, Adry Troy RN, Adry Lawrence RN 06/25/23 13:41:29 06/25/23 13:41:29 06/25/23 13:41:29 Entry 4 Case Attendee Kimmy Chaney Role Performed [employer] Supervisor Time In 06/25/23 13:37:00 Time Out 06/25/23 [...] PreOp Antibiotic No Time Out Woodrow TREVIZO, Virgil Noland RN, Tarsha Cruz MD, Shiv Pelletier Amy Time Out Complete 06/25/23 13:37:00 Outcomes Met? Yes Last Modified By: Adry Troy RN 06/25/23 13:37:39 Post-Care Text: The patient is free from signs and symptoms of injury caused by extraneous objects Allergy Information FTPM Pre-Care Text: Verifies allergies Entry 1 Allergies Reviewed? Yes Allergies Reviewed Self/Patient With Outcomes Met? Yes Last Modified By: Adry Tryo RN 06/25/23 13:37:45 Post-Care Text: The patient [...] and tissue Entry 1 Skin Integrity Intact, [place], Warm, and Skin Abnormality No Dry Outcomes [...] Checked Yes By Adry Troy RN Outcomes Tx (more content not included)... Normal [facility] Main OR Preoperative Recordo n 06-25-2023 Main OR Preoperative Record Holding Area Document Type FTPM Summary Primary Physician: Neymar Willingham MD Finalized Date/Time: 06/25/23 13:18:07 Pt. Name: BARRY GALDAMEZ /Sex: 1955 Male Med Rec #: [id number] Physician: Neymar Willingham MD Financial #: [id number] Pt. Type: P Room/Bed: / Admit/Disch: 06/25/23 [...] 13:18 Jennifer Mendieta RN 06/25/23 13:18 Normal [facility] Operative Reporton 3 Operative Report Patient: [...] EST Respiratory Rate 14 br/min . Normal [facility] Comment on above: Result Comment: Elec tronically Signed By: Neymar Willingham MD\.br\Date and Time Signed: 06/25/23 13:41 EST Patient Correspondenceon Patient Correspondence [id number]#1.00TIF F [facility] Insurance Correspondence Off iceon 06-10-2023 Insurance Correspondence Office [id number]#1.00TIF F [facility] Office/Clinic Note-Physician on 06-08-2023 Office/Clinic Note-Physician [id number]#1.00TI FF [facility] Consent for Treatmenton 05-20 Consent for Treatment [id number]#1.00TI FF [facility] Consultation Noteon 06-05-20 Consultation Note Patient: MANPREET [...] All Problems HTN (hypertension) / SNOMED CT 3923399991 / Confirmed Hip pain, left / SNOMED CT 6924369116 / Confirmed DJD Nocturia / SNOMED CT 540673729 / Confirmed Asthma / SNOMED CT 918078486 / Confirmed Impingement syndrome of right shoulder / SNOMED CT 594789718 / Confirmed Carpal tunnel syndrome of right wrist / SNOMED CT 47304536 / Confirmed Osteoarthritis / SNOMED CT 1259502871 / Confirmed Arthritis / SNOMED CT 3597599 / Confirmed Depression / SNOMED CT 72378159 / Confirmed Hypertension / SNOMED CT 2965586442 / Confirmed Erectile dysfunction / SNOMED CT 5070932464 / Confirmed Asymptomatic microscopic hematuria / SNOMED CT 0262345187 / Confirmed Weak urine stream / SNOMED CT 417773127 / Confirmed Screening PSA (prostate specific antigen) / SNOMED CT 679195334 / Confirmed Resolved: At risk for falls / SNOMED CT 131791117 Problem added when Risk for Falls Careplan [...] hip flexion 5 -/5 Integumentary: Warm, Dry, [place]. Injection site well-healed Neurologic: Alert, Oriented. Psychiatric: [...] necessary. OARRS reviewed ANABELL score: 38% Normal [facility] Comment on above: Result Comment: Elec tronically Signed By: Ariana Urena PA-C\.br\Date and Time Signed: 06/05/23 11:22 EST\.br\Electronically Co-Signed By: Neymar Willingham MD\.br\Date and Time Co-Signed: 06/08/23 12:01 EST Office/Clinic Note-Physician on 06-05-2023 Office/Clinic Note-Physician [id number]#1.00TIFF Normal [facility] Patient Correspondenceon Patient Correspondence [id number]#1.00TIFF Normal [facility] Patient Correspondence [id number]#1.00TIFF Normal [facility] Patient History Officeon Patient History Office [id number]#1.00TIFF Normal [facility] Consent for Procedure/Surger yon 05-19-2023 Consent for Procedure/Surgery [id number]#1.00TI FF [facility] Consent for Treatmenton 04-21 Consent for Treatment [id number]#1.00TI FF [facility] Discharge Instructionson Discharge Instructions [id number]#1.00TI FF [facility] IntraOperative Documentson 1 IntraOperative Documents [id number]#1.00TI FF [facility] Main OR Intraoperative Recor don 05-19-2023 Main OR Intraoperative Record IntraOp Document Type FTPM Summary Primary Physician: Neymar Willingham MD Finalized Date/Time: 05/19/23 14:15:08 Pt. Name: BARRY GALDAMEZ/Sex: 1955 Male Med Rec #: [id number] Physician: Neymar Willingham MD Financial #: [id number] Pt. Type: P Room/Bed: / Admit/Disch: 05/19/23 13:34:40 - Institution: Case Times FTPM Entry 1 Patient Times In Room 05/19/23 14:09:00 Out Room 05/19/23 14:15:00 Procedure Times Start 05/19/23 14:12:00 Stop 05/19/23 14:14:00 Anesthesia Times Last Modified By: Adry Troy RN 05/19/23 14:14:29 Case Attendance FTPM Entry 1 Entry 2 Entry 3 Case Attendee Tarsha FARFAN, Neymar Troy RN, Adry Alanis RN, Iwona Snyder Role Performed Surgeon - Primary Director Of Accounts Payable - Primary Scrub - Primary Time In 05/19/23 14:09:00 05/19/23 14:09:00 05/19/23 14:09:00 Time Out 05/19/23 14:15:00 05/19/23 14:15:00 05/19/23 14:15:00 Procedure LUMBAR EPIDURAL STEROID LUMBAR EPIDURAL STEROID LUMBAR EPIDURAL STEROID INJECTION(.) INJECTION(.) INJECTION(.) Comments Last Modified By: Adry Troy RN, RN, Adry Lawrence RN 05/19/23 14:14:30 05/19/23 14:14:30 05/19/23 14:14:30 Entry 4 Case Attendee Nakul Montes Role Performed Metal Fabrication Supervisor Time In 05/19/23 14:09:00 Time Out 05/19/23 [...] No Time Out Adry Troy RN, Virgil Alanis RN, Tarsha Goodwin MD, Jyoti Pelletier Bryce Time [...] and tissue Entry 1 Skin Integrity Intact, [place], Warm, and Skin Abnormality No Dry Outcomes [...] Troy RN (more content not included)... Normal [facility] Main OR Preoperative Recordo n 05-19-2023 Main OR Preoperative Record Holding Area Document Type FTPM Summary Primary Physician: Neymar Willingham MD Finalized Date/Time: 05/19/23 13:52:06 Pt. Name: BARRY GALDAMEZ Tomeka Bryant/Sex: 1955 Male Med Rec #: [id number] Physician: Neymar Willingham MD Financial #: [id number] Pt. Type: P Room/Bed: / Admit/Disch: 05/19/23 13:34:40 - Institution: Case Times Holding FTPM Pre-Care Text: Verifies consent for planned procedure, identifies individual values and wishes concerning care, includes family members in perioperative teaching Secures patient's records' belongings, and valuables, maintains patient's dignity and privacy, and maintains patient confidentiality Entry 1 In Holding 05/19/23 13:48:00 Outcomes Met? Yes Last Modified By: Jennifer Mendieat RN 05/19/23 13:48:40 Post-Care Text: The patient [...] By: Jennifer Mendieta RN 05/19/23 13:52 Normal [facility] Operative Reporton Operative Report Patient: MANPREET [...] EDT Respiratory Rate 14 br/min . Normal [facility] Comment on above: Result Comment: Elec tronically Signed By: Neymar Willingham MD\.br\Date and Time Signed: 10/31/23 14:14 EDT Patient Correspondenceon Patient Correspondence [id number]#1.00CD: 127 Normal [facility] Insurance Correspondence Off iceon 04-13-2023 Insurance Correspondence Office [id number]#1.00CD: 127 Normal [facility] Consent for Treatmenton 03-21 Consent for Treatment [id number]#1.00CD: 127 Normal [facility] Consultation Noteon 04-08-20 Consultation Note Patient: [...] All Problems HTN (hypertension) / SNOMED CT 8097917518 / Confirmed Hip pain, left / SNOMED CT 2577560249 / Confirmed DJD Nocturia / SNOMED CT 464747652 / Confirmed Asthma / SNOMED CT 398073559 / Confirmed Impingement syndrome of right shoulder / SNOMED CT 931520743 / Confirmed Carpal tunnel syndrome of right wrist / SNOMED CT 52746785 / Confirmed Osteoarthritis / SNOMED CT 3997275153 / Confirmed Arthritis / SNOMED CT 7556839 / Confirmed Depression / SNOMED CT 29269995 / Confirmed Hypertension / SNOMED CT 3365969627 / Confirmed Erectile dysfunction / SNOMED CT 2406626074 / Confirmed Asymptomatic microscopic hematuria / SNOMED CT 0519567585 / Confirmed Weak urine stream / SNOMED CT 888412678 / Confirmed Screening PSA (prostate specific antigen) / SNOMED CT 380443222 / Confirmed Resolved: At risk for falls / SNOMED CT 178958765 Problem added when Risk for Falls Careplan [...] seated straight leg raise. Integumentary: Warm, Dry, [place]. Neurologic: Alert, Oriented. Psychiatric: Cooperative, Appropriate mood [...] sooner if necessary. ANABELL score: 60% Normal [facility] Comment on above: Result Comment: Elec tronically Signed By: Ariana Urena PA-C\.br\Date and Time Signed: 04/08/23 13:30 EDT\.br\Electronically Co-Signed By: García Castro DO.deborah\Date and Time Co-Signed: 04/14/23 11:06 EDT Office/Clinic Note-Physician on 04-08-2023 Office/Clinic Note-Physician [id number]#1.00CD: 127 Normal [facility] Patient Correspondenceon Patient Correspondence [id number]#1.00CD: 127 Normal [facility] Patient Correspondence [id number]#1.00CD: 127 Normal [facility] Patient History Officeon Patient History Office [id number]#1.00CD: 127 Normal [facility] Office Visit (Cardiology)on 03-26-2023 Follow-up visit Diagnoses/Problems Assessed Coronary artery disease involving resighini coronary artery of resighini heart without angina pectoris (414.01) (I25.10) Hypertension, benign (401.1) (I10) Mixed hyperlipidemia (272.2) (E78.2) Former smoker (V15.82) (Z87.891) quit as a teen Class 1 obesity with body mass index (BMI) of 34.0 to 34.9 in adult (278.00,V85.34) (E66.9,Z68.34) Orders Class 1 obesity with body mass index (BMI) of 34.0 to 34.9 in adult Healthy Weight Tips; Status:Complete - Retrospective Authorization; Done: [id number] Coronary artery disease involving resighini coronary artery of resighini heart without angina pectoris Start: Clopidogrel Bisulfate 75 MG Oral Tablet; ONE PILL MON -FRI ( 5 TIMES WEEKLY) SocHx: Former smoker Tobacco Use Screening; Status:Complete; Done: [id number] Patient Instructions Please bring all medicines, vitamins, [...] In November 2021 he underwent non-ST elevation FL with primary revascularization of the LAD diagonal [...] consumption pop 1 daily Former smoker (V15.82) (Z87.351) quit as a teen No alcohol use [...] Recorded: 26Mar2023 11:21AM Heart Rate64, R Radial Fkemflrv571, LUE, Sitting Tsmvkyzwh75, LUE, Sitting Height6 ft Nwaira327 lb BMI Dpfilkumxv12.99 kg/m2 BSA Calculated2.37 Tobacco Useb) No PHQ-2 #1. Over the last 2 weeks have you felt down, depressed or hopeless? (If yes, answer PHQ-9 below)No PHQ-2 #2. Over the last 2 weeks have you felt little intere (more content not included)... Normal [employer] Tobacco Screening.on 023 Adult depression screening assessment No [facility] [employer] [facility] [facility] 250 DO Work Phone: Fall risk assessment a) No falls within the last year [facility] [employer] 250 DO Work Phone: Tobacco use status CPHS b) No [facility] [employer] website 250 DO Work Phone: Office Visit (Cardiology)on [...] Recorded: 29Oct2022 01:07PM Heart Rate66, R Radial Ucribwye733, RUE, Sitting Bvuignixp56, RUE, Sitting Height6 ft Vbyoic560 lb BMI Xtpkqcilqm29.72 kg/m2 BSA Calculated2.37 Tobacco Useb) No Falls [...] affect . (more content not included)... Normal [facility] Office Visit (Cardiology)on 09-18-2022 Follow-up visit Diagnoses/Problems Assessed Coronary artery disease involving resighini coronary artery of resighini heart without angina pectoris (414.01) (I25.10) History [...] 18Sep2022 12:00PMRe (more content not included)... Normal [employer] Tobacco Screening.on 023 Adult depression screening assessment No [facility] [facility] 250 DO Work Phone: Fall risk assessment a) No falls within the last year [facility] [facility] 250 DO Work Phone: Tobacco use status CP b) No M [facility] 250 DO Work Phone: MRI LSPINE [...] NATACHA RENDON Date: 2022-05-22 19:43 Normal [facility] XR FOREIGN BODY EYEon 2021 XR FOREIGN BODY EYE EXAMINATION: XR FORE IGN BODY EYE HISTORY: Foreign body in eye COMPARISON: No relevant comparison available. FINDINGS: ORBITS: Negative for a metallic foreign body. OTHER: Negative. IMPRESSION: No metallic foreign body in the orbits Electronically authenticated by: NATACHA RENDON Date: 2022-05-22 14:05 Normal [facility] CULTURE BLOODon 05-01-2022 Microscopic examination of blood, culture Culture Observations: Anaerobic bottle only positive Culture Observations: BCID- Staph epidermidis Culture Observations: NO GROWTH AT 5 DAYS IN AEROBIC BOTTLE. Culture Observations: METHICILLIN RESISTANT STAPH EPIDERMIDIS ISOLATED. PLEASE FOLLOW APPROPRIATE ISOLATION PROCEDURES. Culture Observations: FAXED RESULT TO ER MOON YAKOV 04/28 @ 1015 Isolate 1 Staphylococcus [...] S F Oxacillin >=4 R F Normal [facility] Comment on above: Performed By: #### H STROPN #### [facility] [address] [place] [address] Dr. Troy Hickey BLOOD CULTURE ID PANELon A. baumannii Not detected Normal NOT DETECTED [facility] Comment on above: Performed By: #### B CID2 #### [facility] [address] [place] [address] Dr. Troy Hickey Bacteriodes fragilis Not detected Normal NOT DETECTED [facility] Comment on above: Performed By: #### B CID2 #### [facility] [address] [place] [address] Dr. Troy BUSTOSD CONTROLS PASSED Normal [facility] Comment on above: Performed By: #### B CID2 #### [facility] [address] [place] [address] Dr. Troy Hickey BCIDBTHD BLOOD CULTURE BOTTLE INFORMATION Normal [facility] Comment on above: Performed By: #### B CID2 #### [facility] [address] [place] [address] Dr. Troy Hickey BCIDHD1 ANTIMICROBIAL RESIST ANCE GENES Normal [facility] Comment on above: Performed By: #### B CID2 #### [facility] [address] [place] [address] Dr. Troy BUSTOSDHD2 SEE BELOW Normal [facility] Comment on above: Result Comment: Note : Antimicrobial resitance can occur via multiple mechanisms. A Not Detected result for the [employer] antomicrobial resistance gene assays does not indicate antimicrobial susceptibility. Subculturing is required for species identification and susceptibility testing of isolates. Performed By: #### B CID2 #### [facility] [address] [place] [address] Dr. Troy Hickey BCIDHD3 Positive Normal [facility] Comment on above: Performed By: #### B CID2 #### [facility] [address] [place] [address] Dr. Troy Hickey BCIDHD4 Negative Normal [facility] Comment on above: Performed By: #### B CID2 #### [facility] [address] [place] [address] Dr. Troy Hickey BCIDHD5 YEAST Normal [facility] Comment on above: Performed By: #### B CID2 #### [facility] [address] [place] [address] Dr. Troy Hickey Bottle Set: Set 2 [place] [facility] Comment on above: Performed By: #### B CID2 #### [facility] [address] [place] [address] Dr. Troy Hickey Bottle: Anaerobic Normal [facility] Comment on above: Performed By: #### B CID2 #### [facility] [address] [place] [address] Dr. Troy Hickey C. neoformans/gattii Not detected Normal NOT DETECTED [facility] Comment on above: Performed By: #### B CID2 #### [facility] [address] [place] [address] Dr. Troy Hickey Eunice albicans Not detected Normal NOT DETECTED [facility] Comment on above: Performed By: #### B CID2 #### [facility] [address] [place] [address] Dr. Troy Hickey Eunice auris Not detected Normal NOT DETECTED [facility] Comment on above: Performed By: #### B CID2 #### [facility] [address] [place] [address] Dr. Troy Hickey Eunice glabrata Not detected Normal NOT DETECTED [facility] Comment on above: Performed By: #### B CID2 #### [facility] [address] [place] [address] Dr. Troy Hickey Eunice Krusei Not detected Normal NOT DETECTED [facility] Comment on above: Performed By: #### B CID2 #### [facility] [address] [place] [address] Dr. Troy Hickey Eunice Parapsilosis Not detected Normal NOT DETECTED [facility] Comment on above: Performed By: #### B CID2 #### [facility] [address] [place] [address] Dr. Troy Hickey Eunice Tropicalis Not detected Normal NOT DETECTED [facility] Comment on above: Performed By: #### B CID2 #### [facility] [address] [place] [address] Dr. Troy Hickey CTX-M Resistant Gene Not Applicable Normal NOT DETECTED [facility] Comment on above: Performed By: #### B CID2 #### [facility] [address] [place] [address] Dr. Troy Hickey E. Cloacae complex Not detected Normal NOT DETECTED [facility] Comment on above: Performed By: #### B CID2 #### [facility] [address] [place] [address] Dr. Troy Hickey E. faecalis Not detected Normal NOT DETECTED [facility] Comment on above: Performed By: #### B CID2 #### [facility] [address] [place] [address] Dr. Troy Hickey E. faecium Not detected Normal NOT DETECTED [facility] Comment on above: Performed By: #### B CID2 #### [facility] [address] [place] [address] Dr. Troy Hickey Enterobacteriaceae Not detected Normal NOT DETECTED [facility] Comment on above: Performed By: #### B CID2 #### [facility] [address] [place] [address] Dr. Troy Hickey Escherichia coli Not detected Normal NOT DETECTED [facility] Comment on above: Performed By: #### B CID2 #### [facility] [address] [place] [address] Dr. Troy Hickey H. influenzae Not detected Normal NOT DETECTED [facility] Comment on above: Performed By: #### B CID2 #### [facility] [address] [place] [address] Dr. Troy Hickey IMP Resistant Gene Not Applicable Normal NOT DETECTED [facility] Comment on above: Performed By: #### B CID2 #### [facility] [address] [place] [address] Dr. Troy Hickey K. oxytoca Not detected Normal NOT DETECTED [facility] Comment on above: Performed By: #### B CID2 #### [facility] [address] [place] [address] Dr. Troy Hickey K. pneumoniae Not detected Normal NOT DETECTED [facility] [facility] Comment on above: Performed By: #### B CID2 #### [facility] [address] [place] [address] Dr. Troy Hickey Klebsiella aerogenes Not detected Normal NOT DETECTED [facility] Comment on above: Performed By: #### B CID2 #### [facility] [address] [place] [address] Dr. Troy Hickey KPC Resistant Gene Not detected Normal NOT DETECTED [facility] Comment on above: Performed By: #### B CID2 #### [facility] [address] [place] [address] Dr. Troy Hickey List. monocytogenes Not detected Normal NOT DETECTED [facility] Comment on above: Performed By: #### B CID2 #### [facility] [address] [place] [address] Dr. Troy Hickey Mcr-1 Resistant Gene Not Applicable Normal NOT DETECTED [facility] Comment on above: Performed By: #### B CID2 #### [facility] [address] [place] [address] Dr. Troy Hickey mecA/C Detected Abnormal NOT DETECTED [facility] Comment on above: Performed By: #### B CID2 #### [facility] [address] [place] [address] Dr. Troy Hickey mecA/C MREJ Not Applicable Normal NOT DETECTED [facility] Comment on above: Performed By: #### B CID2 #### [facility] [address] [place] [address] Dr. Troy Hickey N. meningitidis Not detected Normal NOT DETECTED [facility] Comment on above: Performed By: #### B CID2 #### [facility] [address] [place] [address] Dr. Troy Hickey NDM Resistant Gene Not Applicable Normal NOT DETECTED [facility] Comment on above: Performed By: #### B CID2 #### [facility] [address] [place] [address] Dr. Troy Hickey Oxa-48-like Not Applicable Normal NOT DETECTED [facility] Comment on above: Performed By: #### B CID2 #### [facility] [address] [place] [address] Dr. Troy Hickey Proteus Not detected Normal NOT DETECTED [facility] Comment on above: Performed By: #### B CID2 #### [facility] [address] [place] [address] Dr. Troy Hickey Pseud. aeruginosa Not detected Normal NOT DETECTED [facility] Comment on above: Performed By: #### B CID2 #### [facility] [address] [place] [address] Dr. Troy Hickey S. maltophilia Not detected Normal NOT DETECTED [facility] Comment on above: Performed By: #### B CID2 #### [facility] [address] [place] [address] Dr. Troy Hickey Salmonella Not detected Normal NOT DETECTED [facility] Comment on above: Performed By: #### B CID2 #### [facility] [address] [place] [address] Dr. Troy Hickey Seratia marcescens Not detected Normal NOT DETECTED [facility] Comment on above: Performed By: #### B CID2 #### [facility] [address] [place] [address] Dr. Troy Hickey Site: right arm Normal [facility] Comment on above: Performed By: #### B CID2 #### [facility] [address] [place] [address] Dr. Troy Hickey Staph. aureus Not detected Normal NOT DETECTED [facility] Comment on above: Performed By: #### B CID2 #### [facility] [address] [place] [address] Dr. Troy Hickey Staph. epidermidis Detected Abnormal NOT DETECTED [facility] Comment on above: Performed By: #### B CID2 #### [facility] [address] [place] [address] Dr. Troy Hickey Staph. lugdunensis Not detected Normal NOT DETECTED [facility] Comment on above: Performed By: #### B CID2 #### [facility] [address] [place] [address] Dr. Troy Hickey Staphylococcus Detected Abnormal NOT DETECTED [facility] Comment on above: Performed By: #### B CID2 #### [facility] [address] [place] [address] Dr. Troy Hickey Strep. agalactiae Not detected Normal NOT DETECTED [facility] Comment on above: Performed By: #### B CID2 #### [facility] [address] [place] [address] Dr. Troy Hickey Strep. pneumoniae Not detected Normal NOT DETECTED [facility] Comment on above: Performed By: #### B CID2 #### [facility] [address] [place] [address] Dr. Troy Hickey Strep. pyogenes Not detected Normal NOT DETECTED [facility] Comment on above: Performed By: #### B CID2 #### [facility] [address] [place] [address] Dr. Troy Hickey Streptococcus Not detected Normal NOT DETECTED [facility] Comment on above: Performed By: #### B CID2 #### [facility] [address] [place] [address] Dr. Troy Hickey Franc/Blair Resist. Gene Not detected Normal NOT DETECTED [facility] Comment on above: Performed By: #### B CID2 #### [facility] [address] [place] [address] Dr. Troy Hickey VIM Resistant Gene Not Applicable Normal NOT DETECTED [facility] Comment on above: Performed By: #### B CID2 #### [facility] [address] [place] [address] Dr. Troy Hickey BNPon 04-25-2022 Natriuretic peptide B (Bld) [Mass/Vol] 239.0 pg/mL Normal <=900.0 [facility] Comment on above: Performed By: #### B ACCOUNTS RECEIVABLE ADMINISTRATOR, HSTROPN, CMP #### [facility] [address] [place] [address] Dr. Troy Hickey CBC AUTO DIFFon 04-25-2022 BASO # 0.1 103/ul Normal 0.0-0.1 [facility] Comment on above: Performed By: #### H STROPN #### [facility] [address] [place] [address] Dr. Troy Hickey Basophils/100 WBC (Bld) 0.3 % Normal 0.2-2.0 [facility] Comment on above: Performed By: #### H STROPN #### [facility] [address] [place] [address] Dr. Troy Hickey EO # 0.0 103/ul Normal 0.0-0.7 [facility] Comment on above: Performed By: #### H STROPN #### [facility] [address] [place] [address] Dr. Troy Hickey Eosinophils/100 WBC (Bld) 0.1 % Critically low 0.9-7.0 [facility] Comment on above: Performed By: #### H STROPN #### [facility] [address] [place] [address] Dr. Troy Hickey Erythrocyte distribution width (RBC) [Ratio] 13.5 % Normal 11.0-15.0 [facility] Comment on above: Performed By: #### H STROPN #### [facility] [address] [place] [address] Dr. Troy Hickey Hematocrit (Bld) [Volume fraction] 33.0 % Critically low 42.0-54.0 [facility] Comment on above: Performed By: #### H STROPN #### [facility] [address] [address] [address] Troy Hickey Hemoglobin (Bld) [Mass/Vol] 10.4 g/dL Critically low 14.0-18.0 [facility] Comment on above: Performed By: #### H STROPN #### [facility] [address] [place] [address] Dr. Troy Hickey IG # 0.08 10e3/ul Critically high 0.00-0.03 [facility] Comment on above: Performed By: #### H STROPN #### [facility] [address] [place] [address] Dr. Troy Hickey IG % 0.5 % Normal 0.0-0.5 [facility] Comment on above: Performed By: #### H STROPN #### [facility] [address] [place] [address] Dr. Troy Hickey LYMPH # 0.8 103/ul Critically low 1.2-3.8 [facility] Comment on above: Performed By: #### H STROPN #### [facility] [address] [place] [address] Dr. Troy Hickey Lymphocytes/100 WBC (Bld) 4.3 % Critically low 20.5-60.0 [facility] Comment on above: Performed By: #### H STROPN #### [facility] [address] [place] [address] Dr. Troy Hickey MANUAL DIFF REQ NO Normal [facility] Comment on above: Performed By: #### H STROPN #### [facility] [address] [place] [address] Dr. Troy Hickey MCH (RBC) [Entitic mass] 25.3 pg Critically low 25.9-34.0 [facility] Comment on above: Performed By: #### H STROPN #### [facility] [address] [place] [address] Dr. Troy Hickey MCHC (RBC) [Mass/Vol] 31.5 g/dL Normal 29.9-35.2 [facility] Comment on above: Performed By: #### H STROPN #### [facility] [address] [address] [address] Troy Hickey MCV (RBC) [Entitic vol] 80.3 fL Normal 80.0-94.0 [facility] Comment on above: Performed By: #### H STROPN #### [facility] [address] [address] [address] Troy Hickey MONO # 0.6 103/ul Normal 0.3-0.8 [facility] Comment on above: Performed By: #### H STROPN #### [facility] [address] [address] [address] Troy Hickey Monocytes/100 WBC (Bld) 3.4 % Normal 1.7-12.0 [facility] Comment on above: Performed By: #### H STROPN #### [facility] [address] [place] [address] Dr. Troy Hickey NEUT # 16.0 103/ul Critically high 1.4-6.5 [facility] Comment on above: Performed By: #### H STROPN #### [facility] [address] [place] [address] Dr. Troy Hickey Neutrophils/100 WBC (Bld) 91.4 % Critically high 43.0-75.0 [facility] Comment on above: Performed By: #### H STROPN #### [facility] [address] [place] [address] Dr. Troy Hickey Platelet mean volume (Bld) [Entitic vol] 8.9 fL Critically low 9.5-13.5 [facility] Comment on above: Performed By: #### H STROPN #### [facility] [address] [address] [address] Troy Hickey PLT 269 103/ul Normal 150-450 [facility] Comment on above: Performed By: #### H STROPN #### [facility] [address] [address] [address] Troy Hickey RBC 4.11 106/ul Critically low 4.70-6.10 [facility] Comment on above: Performed By: #### H STROPN #### [facility] [address] [place] [address] Dr. Troy Hickey WBC 17.5 103/ul Critically high 4.0-11.0 [facility] Comment on above: Performed By: #### H STROPN #### [facility] [address] [place] [address] Dr. Troy Hickey CULTURE BLOODon 04-25-2022 Microscopic examination of blood, culture Culture Observations: NO GROWTH AT 5 DAYS. Normal [facility] Comment on above: Performed By: #### H STROPN #### [facility] [address] [place] [address] Dr. Troy Hickey Covid-19 PCR ([facility])on SARS-CoV-2 (COVID-19) RNA ERNIE+probe Ql (Unsp spec) Not detected Normal NOT DETECTED [facility] Comment on above: Result Comment: When [...] for this test is supported by the Director Of [employer] of Health and Human Service's declaration that [...] used). Performed By: #### C VDTBH #### [facility] [address] [place] [address] Dr. Troy Hickey INFLUENZA A AND B AGon 04-25 INFLUENZA A AG Negative Normal NEGATIVE SEE COMMENT [facility] Comment on above: Performed By: #### I NFLUAB #### [facility] [address] [place] [address] Dr. Troy Hickey INFLUENZA B AG Negative Normal NEGATIVE SEE COMMENT [facility] Comment on above: Performed By: #### I NFLUAB #### [facility] [address] [place] [address] Dr. Troy Hickey INTERNAL CONTROLS Within Normal Limits Normal Wi thin Normal Limits [facility] Comment on above: Performed By: #### I NFLUAB #### [facility] [address] [address] [address] Troy Hickey LACTATE/LACTIC ACIDon 2021 Lactate [Moles/Vol] 1.5 mmol/L Normal 0.4-1.9 [facility] Comment on above: Performed By: #### L ACT #### [facility] [address] [place] [address] Dr. Troy Hickey PROF 14(COMP METB)on 022 Albumin [Mass/Vol] 3.6 g/dL Normal 3.4-5.0 [facility] Comment on above: Performed By: #### B ACCOUNTS RECEIVABLE ADMINISTRATOR, HSTROPN, CMP #### [facility] [address] [place] [address] Dr. Troy Hickey Albumin/Globulin [Mass ratio] 0.8 {ratio} Normal [facility] Comment on above: Performed By: #### B ACCOUNTS RECEIVABLE ADMINISTRATOR, HSTROPN, CMP #### [facility] [address] [place] [address] Dr. Troy Hickey ALP [Catalytic activity/Vol] 144 U/L Critically high 46-116 [facility] Comment on above: Performed By: #### B ACCOUNTS RECEIVABLE ADMINISTRATOR, HSTROPN, CMP #### [facility] [address] [place] [address] Dr. Troy Hickey ALT [Catalytic activity/Vol] 17 U/L Normal 16-63 [facility] Comment on above: Performed By: #### B ACCOUNTS RECEIVABLE ADMINISTRATOR, HSTROPN, CMP #### [facility] [address] [place] [address] Dr. Troy Hickey Anion gap [Moles/Vol] 9.0 mmol/L Normal [facility] Comment on above: Performed By: #### B ACCOUNTS RECEIVABLE ADMINISTRATOR, HSTROPN, CMP #### [facility] [address] [place] [address] Dr. Troy Hickey AST [Catalytic activity/Vol] 15 U/L Normal 15-37 [facility] Comment on above: Performed By: #### B ACCOUNTS RECEIVABLE ADMINISTRATOR, HSTROPN, CMP #### [facility] [address] [place] [address] Dr. Troy Hickey Bilirubin [Mass/Vol] 0.7 mg/dL Normal 0.2-1.0 [facility] Comment on above: Performed By: #### B ACCOUNTS RECEIVABLE ADMINISTRATOR, HSTROPN, CMP #### [facility] [address] [place] [address] Dr. Troy Hickey Calcium [Mass/Vol] 9.0 mg/dL Normal 8.5-10.1 [facility] Comment on above: Performed By: #### B ACCOUNTS RECEIVABLE ADMINISTRATOR, HSTROPN, CMP #### [facility] [address] [place] [address] Dr. Troy Hickey Chloride [Moles/Vol] 101 mmol/L Normal 98-107 [facility] Comment on above: Performed By: #### B ACCOUNTS RECEIVABLE ADMINISTRATOR, HSTROPN, CMP #### [facility] [address] [place] [address] Dr. Troy Hickey CO2 [Moles/Vol] 29.0 mmol/L Normal 21.0-32.0 [facility] Comment on above: Performed By: #### B ACCOUNTS RECEIVABLE ADMINISTRATOR, HSTROPN, CMP #### [facility] [address] [place] [address] Dr. Troy Hickey Creatinine [Mass/Vol] 0.94 mg/dL Normal 0.70-1.30 [facility] Comment on above: Performed By: #### B ACCOUNTS RECEIVABLE ADMINISTRATOR, HSTROPN, CMP #### [facility] [address] [place] [address] Dr. Troy Hickey EGFR-AF MONTSERRATIAN >60 Normal >=60 [facility] Comment on above: Performed By: #### B ACCOUNTS RECEIVABLE ADMINISTRATOR, HSTROPN, CMP #### [facility] [address] [place] [address] Dr. Troy Hickey EGFR-NON AF MONTSERRATIAN >60 Normal >=60 [facility] Comment on above: Performed By: #### B ACCOUNTS RECEIVABLE ADMINISTRATOR, HSTROPN, CMP #### [facility] [address] [place] [address] Dr. Troy Hickey Globulin (S) [Mass/Vol] 4.3 g/dL Normal [facility] Comment on above: Performed By: #### B ACCOUNTS RECEIVABLE ADMINISTRATOR, HSTROPN, CMP #### [facility] [address] [place] [address] Dr. Troy Hickey Glucose [Mass/Vol] 187 mg/dL Critically high 74-106 [facility] Comment on above: Performed By: #### B ACCOUNTS RECEIVABLE ADMINISTRATOR, HSTROPN, CMP #### [facility] [address] [place] [address] Dr. Troy Hickey Potassium [Moles/Vol] 4.0 mmol/L Normal 3.5-5.1 [facility] Comment on above: Performed By: #### B ACCOUNTS RECEIVABLE ADMINISTRATOR, HSTROPN, CMP #### [facility] [address] [place] [address] Dr. Troy Hickey Protein [Mass/Vol] 7.9 g/dL Normal 6.4-8.2 [facility] Comment on above: Performed By: #### B ACCOUNTS RECEIVABLE ADMINISTRATOR, HSTROPN, CMP #### [facility] [address] [place] [address] Dr. Troy Hickey Sodium [Moles/Vol] 135 mmol/L Critically low 136-145 [facility] Comment on above: Performed By: #### B ACCOUNTS RECEIVABLE ADMINISTRATOR, HSTROPN, CMP #### [facility] [address] [place] [address] Dr. Troy Hickey Urea nitrogen [Mass/Vol] 15.0 mg/dL Normal 7.0-18.0 [facility] Comment on above: Performed By: #### B ACCOUNTS RECEIVABLE ADMINISTRATOR, HSTROPN, CMP #### [facility] [address] [place] [address] Dr. Troy Hickey Urea nitrogen/Creatinine [Mass ratio] 16.0 mg/mg Normal [facility] Comment on above: Performed By: #### B ACCOUNTS RECEIVABLE ADMINISTRATOR, HSTROPN, CMP #### [facility] [address] [place], [place] [address] Dr. Troy Hickey TROPONIN, HIGH SENSITIVITYon 04-25-2022 HSTROP 11.1 pg/mL Normal 4.0-76.1 [facility] Comment on above: Result Comment: CUT- OFF POINTS HAVE BEEN ESTABLISHED BASED ON THE FOURTH UNIVERSAL DEFINITIONS OF MYOCARDIAL INFARCTION. THE UPPER REFERENCE LIMIT (URL) OF TROPONIN, DEFINED THE 99TH PERCENTILE OF cTnI DISTRIBUTION IN A REFERENCE POPULATION, HAS BEEN CONFIRMED THE DECISION THRESHOLD FOR [place] DIAGNOSIS. Performed By: #### B ACCOUNTS RECEIVABLE ADMINISTRATOR, HSTROPN, CMP #### [facility] [address] [id number] Troy Hickey XR CHEST 1 Von [...] by: SANDER MOCTEZUMA Date: 2022-04-25 15:38 Normal [facility] XR CHEST 2 Von 04-23-2022 XR CHEST [...] by: JEAN-PAUL SALAS Date: 2022-04-23 11:36 Normal [facility] XR LSPINE MIN 4 VIEWSon 09- XR LSPINE MIN 4 VIEWS EXAMINATION: XR [...] by: JEAN-PAUL SALAS Date: 2022-04-02 15:11 Normal [facility] Tobacco Screening.on Tobacco use status CPHS b) No M [facility] y [address] DO Work Phone: PROF 14(COMP METB)on Albumin [Mass/Vol] 3.5 g/dL Normal 3.4-5.0 [facility] Comment on above: Performed By: #### C MP #### [facility] [address] [place] [address] Dr. Troy Hickey Albumin/Globulin [Mass ratio] 0.9 {ratio} Normal [facility] Comment on above: Performed By: #### C MP #### [facility] [address] [address] [address] Troy Hickey ALP [Catalytic activity/Vol] 104 U/L Normal 46-116 [facility] Comment on above: Performed By: #### C MP #### [facility] [address] [place] [address] Dr. Troy Hickey ALT [Catalytic activity/Vol] 19 U/L Normal 16-63 [facility] Comment on above: Performed By: #### C MP #### [facility] [address] [place] [address] Dr. Troy Hickey Anion gap [Moles/Vol] 11.7 mmol/L Normal [facility] Comment on above: Performed By: #### C MP #### [facility] [address] [place] [address] Dr. Troy Hickey AST [Catalytic activity/Vol] 9 U/L Critically low 15-37 [facility] Comment on above: Performed By: #### C MP #### [facility] [address] [address] [address] Troy Hickey Bilirubin [Mass/Vol] 0.4 mg/dL Normal 0.2-1.0 [facility] Comment on above: Performed By: #### C MP #### [facility] [address] [address] [address] Troy Hickey Calcium [Mass/Vol] 8.7 mg/dL Normal 8.5-10.1 [facility] Comment on above: Performed By: #### C MP #### [facility] [address] [address] [address] Troy Hickey Chloride [Moles/Vol] 104 mmol/L Normal 98-107 [facility] Comment on above: Performed By: #### C MP #### [facility] [address] [place] [address] Dr. Troy Hickey CO2 [Moles/Vol] 28.9 mmol/L Normal 21.0-32.0 [facility] Comment on above: Performed By: #### C MP #### [facility] [address] [place] [address] Dr. Troy Hickey Creatinine [Mass/Vol] 1.02 mg/dL Normal 0.70-1.30 [facility] Comment on above: Performed By: #### C MP #### [facility] [address] [place] [address] Dr. Troy Hickey EGFR-AF MONTSERRATIAN >60 Normal >=60 [facility] Comment on above: Performed By: #### C MP #### [facility] [address] [place] [address] Dr. Troy Hickey EGFR-NON AF MONTSERRATIAN >60 Normal >=60 [facility] Comment on above: Performed By: #### C MP #### [facility] [address] [place] [address] Dr. Troy Hickey Globulin (S) [Mass/Vol] 3.8 g/dL Normal [facility] Comment on above: Performed By: #### C MP #### [facility] [address] [place] [address] Dr. Troy Hickey Glucose [Mass/Vol] 121 mg/dL Critically high 74-106 [facility] Comment on above: Performed By: #### C MP #### [facility] [address] [address] [address] Troy Hickey Potassium [Moles/Vol] 4.6 mmol/L Normal 3.5-5.1 [facility] Comment on above: Performed By: #### C MP #### [facility] [address] [address] [address] Troy Hickey Protein [Mass/Vol] 7.3 g/dL Normal 6.4-8.2 [facility] Comment on above: Performed By: #### C MP #### [facility] [address] [address] [address] Troy Hickey Sodium [Moles/Vol] 140 mmol/L Normal 136-145 [facility] Comment on above: Performed By: #### C MP #### [facility] [address] [address] [address] Troy Hickey Urea nitrogen [Mass/Vol] 45.0 mg/dL Critically high 7.0-18.0 [facility] Comment on above: Performed By: #### C MP #### [facility] [address] [address] [address] Troy Hickey Urea nitrogen/Creatinine [Mass ratio] 44.1 mg/mg Normal [facility] Comment on above: Performed By: #### C MP #### [facility] [address] [address] [address] Troy Hickey Tobacco Screening.on 022 Adult depression screening assessment No [facility] y 250 DO Work Phone: Fall risk assessment b) One or more fall s in the last year [facility] y 250 DO Work Phone: Tobacco use status CPHS b) No M [facility] y 250 DO Work Phone: BNPon 11-23-2021 Natriuretic peptide B (Bld) [Mass/Vol] 153.0 pg/mL Normal <=900.0 [facility] Comment on above: Performed By: #### H STROPN #### [facility] [address] [place] [address] Dr. Troy Hickey CBC AUTO DIFFon 11-23-2021 BASO # 0.1 103/ul Normal 0.0-0.1 [facility] Comment on above: Performed By: #### H STROPN #### [facility] [address] [place] [address] Dr. Troy Hickey Basophils/100 WBC (Bld) 0.7 % Normal 0.2-2.0 [facility] Comment on above: Performed By: #### H STROPN #### [facility] [address] [place] [address] Dr. Troy Hickey EO # 0.4 103/ul Normal 0.0-0.7 [facility] Comment on above: Performed By: #### H STROPN #### [facility] [address] [place] [address] Dr. Troy Hickey Eosinophils/100 WBC (Bld) 4.2 % Normal 0.9-7.0 [facility] Comment on above: Performed By: #### H STROPN #### [facility] [address] [place] [address] Dr. Troy Hickey Erythrocyte distribution width (RBC) [Ratio] 14.2 % Normal 11.0-15.0 [facility] Comment on above: Performed By: #### H STROPN #### [facility] [address] [place] [address] Dr. Troy Hickey Hematocrit (Bld) [Volume fraction] 40.2 % Critically low 42.0-54.0 [facility] Comment on above: Performed By: #### H STROPN #### [facility] [address] [place] [address] Dr. Troy Hickey Hemoglobin (Bld) [Mass/Vol] 12.4 g/dL Critically low 14.0-18.0 [facility] Comment on above: Performed By: #### H STROPN #### [facility] [address] [address] [address] Troy Hickey IG # 0.03 10e3/ul Normal 0.00-0.03 [facility] Comment on above: Performed By: #### H STROPN #### [facility] [address] [place] [address] Dr. Troy Hickey IG % 0.3 % Normal 0.0-0.5 [facility] Comment on above: Performed By: #### H STROPN #### [facility] [address] [place] [address] Dr. Troy Hickey LYMPH # 2.4 103/ul Normal 1.2-3.8 [facility] Comment on above: Performed By: #### H STROPN #### [facility] [address] [place] [address] Dr. Troy Hickey Lymphocytes/100 WBC (Bld) 27.9 % Normal 20.5-60.0 [facility] Comment on above: Performed By: #### H STROPN #### [facility] [address] [place] [address] Dr. Troy Hickey MANUAL DIFF REQ NO Normal [facility] Comment on above: Performed By: #### H STROPN #### [facility] [address] [place] [address] Dr. Troy Hickey MCH (RBC) [Entitic mass] 27.2 pg Normal 25.9-34.0 [facility] Comment on above: Performed By: #### H STROPN #### [facility] [address] [place] [address] Dr. Troy Hickey MCHC (RBC) [Mass/Vol] 30.8 g/dL Normal 29.9-35.2 [facility] Comment on above: Performed By: #### H STROPN #### [facility] [address] [place] [address] Dr. Troy Hickey MCV (RBC) [Entitic vol] 88.2 fL Normal 80.0-94.0 [facility] Comment on above: Performed By: #### H STROPN #### [facility] [address] [address] [address] Troy Hickey MONO # 0.6 103/ul Normal 0.3-0.8 [facility] Comment on above: Performed By: #### H STROPN #### [facility] [address] [place] [address] Dr. Troy Hickey Monocytes/100 WBC (Bld) 7.2 % Normal 1.7-12.0 [facility] Comment on above: Performed By: #### H STROPN #### [facility] [address] [place] [address] Dr. Troy Hickey NEUT # 5.2 103/ul Normal 1.4-6.5 [facility] Comment on above: Performed By: #### H STROPN #### [facility] [address] [place] [address] Dr. Troy Hickey Neutrophils/100 WBC (Bld) 59.7 % Normal 43.0-75.0 [facility] Comment on above: Performed By: #### H STROPN #### [facility] [address] [place] [address] Dr. Troy Hickey Platelet mean volume (Bld) [Entitic vol] 8.5 fL Critically low 9.5-13.5 [facility] Comment on above: Performed By: #### H STROPN #### [facility] [address] [place] [address] Dr. Troy Hickey PLT 252 103/ul Normal 150-450 [facility] Comment on above: Performed By: #### H STROPN #### [facility] [address] [place] [address] Dr. Troy Hickey RBC 4.56 106/ul Critically low 4.70-6.10 [facility] Comment on above: Performed By: #### H STROPN #### [facility] [address] [place] [address] Dr. Troy Hickey WBC 8.6 103/ul Normal 4.0-11.0 [facility] Comment on above: Performed By: #### H STROPN #### [facility] [address] [place] [address] Dr. Troy Hickey CTA CHEST WO W [...] ABRAN CHRISTINE Date: 2021-11-23 19:06 Normal [facility] Covid-19 PCR (CVDTBH)on SARS-CoV-2 (COVID-19) RNA ERNIE+probe Ql (Unsp spec) Not detected Normal NOT DETECTED [facility] Comment on above: Result Comment: This test is not yet approved or cleared by the [place] FDA. When there are no FDA-approved or cleared tests available, and other criteria are met, FDA can make tests available under an emergency access mechanism called an Emergency Use Authorization (EUA). The EUA for this test is supported by the [place] of Health and Human Service's (HHS's) declaration [...] SARS-CoV-2. Performed By: #### B CID2 #### [facility] [address] [place] [address] Dr. Troy Hickey D-DIMERon 11-23-2021 D-DIMER 0.52 mg/L FEU Critically high 0.19-0.[address] [facility] Comment on above: Performed By: #### D DIM #### [facility] [address] [place] [address] Dr. Troy Hickey D-DIMER COMMENTS SEE BELOW Normal [facility] Comment on above: Result Comment: Incr [...] hospitalization. Performed By: #### D DIM #### [facility] [address] [place] [address] Dr. Troy Hickey PROF 14(COMP METB)on 022 Albumin [Mass/Vol] 3.5 g/dL Normal 3.4-5.[address] [facility] Comment on above: Performed By: #### H STROPN #### [facility] [address] [place] [address] Dr. Troy Hickey Albumin/Globulin [Mass ratio] 0.8 {ratio} Normal [facility] Comment on above: Performed By: #### H STROPN #### [facility] [address] [address] [address] Troy Hickey ALP [Catalytic activity/Vol] 104 U/L Normal 46-116 [facility] Comment on above: Performed By: #### H STROPN #### [facility] [address] [address] [address] Troy Hickey ALT [Catalytic activity/Vol] 22 U/L Normal 16-63 [facility] Comment on above: Performed By: #### H STROPN #### [facility] [address] [address] [address] Troy Hickey Anion gap [Moles/Vol] 6.2 mmol/L Normal [facility] Comment on above: Performed By: #### H STROPN #### [facility] [address] [address] [address] Tory Hickey AST [Catalytic activity/Vol] 16 U/L Normal 15-37 [facility] Comment on above: Performed By: #### H STROPN #### [facility] [address] [address] [address] Troy Hickey Bilirubin [Mass/Vol] 0.4 mg/dL Normal 0.2-1.0 [facility] Comment on above: Performed By: #### H STROPN #### [facility] [address] [place] [address] Dr. Troy Hickey Calcium [Mass/Vol] 8.2 mg/dL Critically low 8.5-10.1 [facility] Comment on above: Performed By: #### H STROPN #### [facility] [address] [address] [address] Troy Hickey Chloride [Moles/Vol] 104 mmol/L Normal 98-107 [facility] Comment on above: Performed By: #### H STROPN #### [facility] [address] [address] [address] Troy Hickey CO2 [Moles/Vol] 31.8 mmol/L Normal 21.0-32.0 [facility] Comment on above: Performed By: #### H STROPN #### [facility] [address] [address] [address] Troy Hickey Creatinine [Mass/Vol] 0.88 mg/dL Normal 0.70-1.30 [facility] Comment on above: Performed By: #### H STROPN #### [facility] [address] [address] [address] Troy Hickey EGFR-AF MONTSERRATIAN >60 Normal >=60 [facility] Comment on above: Performed By: #### H STROPN #### [facility] [address] [address] [address] Troy Hickey EGFR-NON AF MONTSERRATIAN >60 Normal >=60 [facility] Comment on above: Performed By: #### H STROPN #### [facility] [address] [address] [address] Troy Hickey Globulin (S) [Mass/Vol] 4.2 g/dL Normal [facility] Comment on above: Performed By: #### H STROPN #### [facility] [address] [address] [address] Troy Hickey Glucose [Mass/Vol] 109 mg/dL Critically high 74-106 [facility] Comment on above: Performed By: #### H STROPN #### [facility] [address] [place] [address] Dr. Troy Hickey Potassium [Moles/Vol] 4.0 mmol/L Normal 3.5-5.1 [facility] Comment on above: Performed By: #### H STROPN #### [facility] [address] [address] [address] Troy Hickey Protein [Mass/Vol] 7.7 g/dL Normal 6.4-8.[address] [facility] Comment on above: Performed By: #### H STROPN #### [facility] [address] [place] [address] Dr. Troy Hickey Sodium [Moles/Vol] 138 mmol/L Normal 136-145 [facility] Comment on above: Performed By: #### H STROPN #### [facility] [address] [place] [address] Dr. Troy Hickey Urea nitrogen [Mass/Vol] 17.0 mg/dL Normal 7.0-18.0 [facility] Comment on above: Performed By: #### H STROPN #### [facility] [address] [place] [address] Dr. Troy Hickey Urea nitrogen/Creatinine [Mass ratio] 19.3 mg/mg Normal [facility] Comment on above: Performed By: #### H STROPN #### [facility] [address] [place] [address] Dr. Troy Hickey PROTIMEon 11-23-2021 INR Coag (PPP) [Relative time] 1.01 {INR} Normal [facility] Comment on above: Performed By: #### B CID2 #### [facility] [address] [place] [address] Dr. Troy Hickey INR GUIDELINES SEE BELOW Normal [facility] Comment on above: Result Comment: WAQAS RED INR: 2.0 - 3.0 CONDITIONS NOT LISTED BELOW 2.5 - 3.5 FOR PROSTHETIC HEART VALVE REPLACEMENT 2.5 - 3.5 RECURRENT THROMBOSIS Performed By: #### B CID2 #### [facility] [address] [place] [address] Dr. Troy Hickey PT Coag (PPP) [Time] 10.9 s Normal 9.0-11.6 [facility] Comment on above: Performed By: #### B CID2 #### [facility] [address] [place] [address] Dr. Troy Hickey PTTon 11-23-2021 aPTT Coag (Bld) [Time] 28.3 s Normal 22.3-36.2 [facility] Comment on above: Performed By: #### B CID2 #### [facility] [address] [place] [address] Dr. Troy Hickey TROPONIN, HIGH SENSITIVITYon 11-23-2021 HSTROP 197.7 pg/mL Critically high 4.0-76.1 [facility] Comment on above: Result Comment: CUT- OFF POINTS HAVE BEEN ESTABLISHED BASED ON THE FOURTH UNIVERSAL DEFINITIONS OF MYOCARDIAL INFARCTION. THE UPPER REFERENCE LIMIT (URL) OF TROPONIN, DEFINED THE 99TH PERCENTILE OF cTnI DISTRIBUTION IN A REFERENCE POPULATION, HAS BEEN CONFIRMED THE DECISION THRESHOLD FOR [place] DIAGNOSIS. Test Repeated. Critical Value Verified Performed By: #### H STROPN #### [facility] [address] [id number] Troy Hickey HSTROP 138.8 pg/mL Critically high 4.0-76.1 [facility] Comment on above: Result Comment: CUT- OFF POINTS HAVE BEEN ESTABLISHED BASED ON THE FOURTH UNIVERSAL DEFINITIONS OF MYOCARDIAL INFARCTION. THE UPPER REFERENCE LIMIT (URL) OF TROPONIN, DEFINED THE 99TH PERCENTILE OF cTnI DISTRIBUTION IN A REFERENCE POPULATION, HAS BEEN CONFIRMED THE DECISION THRESHOLD FOR FL DIAGNOSIS. Performed By: #### H STROPN #### [facility] [address] [id number] Troy Hickey XR FINGER MIN 2 VIEWSon 09-17 XR FINGER MIN 2 VIEWS EXAM: XR FINGER FL N 2 VIEWS HISTORY: Laceration of finger [...] LINDA MICHEL Date: 2021-10-05 15:49 Normal [facility] COVID Quick Testingon 2021 Result Positive [facility] Other Quick Fluon 08-08-2021 FLUAV Ab CF (S) [Titer] Negative N MOWGLI Other FLUBV Ab CF (S) [Titer] Positive N [facility]OWGLI Other Vital Signs Date Time Vital Sign Value Performing Clinician Facility 02-07-2025 14:06-0400 Body height 182.9 cm Sadner Cardoza DO Work Phone: [facility] 02-07-2025 14:06-0400 Body mass index (BMI) [Ratio] 32.28 kg/m2 Sander Cardoza DO Work Phone: [facility] 02-07-2025 14:06-0400 Body weight 107.96 kg Sander Cardoza DO Work Phone: [facility] 11-24-2024 13:51-0400 Body height 182.9 cm Sander Cardoza DO Work Phone: [facility] 11-24-2024 13:51-0400 Body mass index (BMI) [Ratio] 32.28 kg/m2 Sander Cardoza DO Work Phone: [facility] 11-24-2024 13:51-0400 Body weight 107.96 kg Sander Cardoza DO Work Phone: [facility] 09-13-2024 12:51-0500 Body height 182.9 cm Sander Cardoza DO Work Phone: [facility] 09-13-2024 12:51-0500 Body mass index (BMI) [Ratio] 32.28 kg/m2 Sander Cardoza DO Work Phone: [facility] 09-13-2024 12:51-0500 Body weight 107.96 kg Sander Cardoza DO Work Phone: [facility] 06-22-2024 15:07-0500 Body height 182.9 cm [facility] Work Phone: [facility] 06-22-2024 15:07-0500 Body mass index (BMI) [Ratio] 32.41 kg/m2 [facility] Work Phone: [facility] 06-22-2024 15:07-0500 Body weight 108.41 kg [facility] Work Phone: [facility] 11-23-2023 10:26-0400 Diastolic blood pressure 68 mm[Hg] Patricia 1 [facility] 11-23-2023 10:26-0400 Heart rate 72 /min Patricia 1 [facility] 11-23-2023 10:26-0400 Systolic blood pressure 116 mm[Hg] Patricia 1 [facility] 10-22-2023 10:50-0400 Body height 182.9 cm Addy Fuller DO Work Phone: [facility] 10-22-2023 10:50-0400 Body mass index (BMI) [Ratio] 34.58 kg/m2 Addy Fuller DO Work Phone: [facility] 10-22-2023 10:50-0400 Body weight 115.67 kg Addy Fuller DO Work Phone: [facility] 10-22-2023 10:50-0400 Diastolic blood pressure 62 mm[Hg] Addy Fuller DO Work Phone: [facility] 10-22-2023 10:50-0400 Heart rate 68 /min Addy Fuller DO Work Phone: [facility] 10-22-2023 10:50-0400 Systolic blood pressure 132 mm[Hg] Addy Fuller DO Work Phone: [facility] 10-09-2023 12:50-0400 Body height 182.9 cm Marietta Brice APRN-BAILEY Work Phone: [facility] 10-09-2023 12:50-0400 Body mass index (BMI) [Ratio] 34.88 kg/m2 Marietta Brice RECYCLING DIRECTOR-NURSING HOME MANAGER Work Phone: [facility] 10-09-2023 12:50-0400 Body weight 116.67 kg Marietta Brice RECYCLING DIRECTOR-NURSING HOME MANAGER Work Phone: [facility] 10-09-2023 12:50-0400 Diastolic blood pressure 55 mm[Hg] Marietta Brice RECYCLING DIRECTOR-NURSING HOME MANAGER Work Phone: [facility] 10-09-2023 12:50-0400 Heart rate 63 /min Marietta Brice RECYCLING DIRECTOR-NURSING HOME MANAGER Work Phone: [facility] 10-09-2023 12:50-0400 Systolic blood pressure 102 mm[Hg] Marietta Brice RECYCLING DIRECTOR-NURSING HOME MANAGER Work Phone: [facility] 10-01-2023 08:35-0400 Body temperature 98.1 [degF] DO Joe House Work Phone: [facility] 10-01-2023 08:35-0400 Diastolic blood pressure 72 mm[Hg] DO Joe House Work Phone: [facility] 10-01-2023 08:35-0400 Heart rate 84 /min DO Joe House Work Phone: [facility] 10-01-2023 08:35-0400 Respiratory rate 20 /min DO Joe House Work Phone: [facility] 10-01-2023 08:35-0400 SaO2% (BldA) [Mass fraction] 98 % DO Joe House Work Phone: [facility] 10-01-2023 08:35-0400 Systolic blood pressure 134 mm[Hg] DO Joe House Work Phone: [facility] 10-01-2023 06:00-0400 Body weight 114.9 kg DO Joe House Work Phone: [facility] 09-30-2023 02:20-0400 Body height 182.88 cm DO Joe House Work Phone: [facility] 03-26-2023 11:21-0400 Body height 182.88 cm Joe P House Work Phone: [facility] DO Work Phone: 03-26-2023 11:21-0400 Body mass index (BMI) [Ratio] 34.99 kg/m2 Joe P House Work Phone: [facility] DO Work Phone: 03-26-2023 11:21-0400 Body surface area Derived from formula 2.37 m2 Joe Lam House Work Phone: [facility] DO Work Phone: 03-26-2023 11:21-0400 Body weight 117.03 kg Joe P House Work Phone: [facility] DO Work Phone: 03-26-2023 11:21-0400 Diastolic blood pressure 70 mm[Hg] Joe Lam House Work Phone: [facility] DO Work Phone: 03-26-2023 11:21-0400 Heart rate 64 /min Joe Lam [employer] Work Phone: [facility] DO Work Phone: 03-26-2023 11:21-0400 Systolic blood pressure 148 mm[Hg] Joe Lam [employer] Work Phone: [facility] DO Work Phone: 09-18-2022 12:00-0500 Heart rate 66 /min Joe Lam [employer] Work Phone: [facility] DO Work Phone: 09-18-2022 11:55-0500 Body height 182.88 cm Joe Lam [employer] Work Phone: [facility] DO Work Phone: 09-18-2022 11:55-0500 Body mass index (BMI) [Ratio] 35.4 kg/m2 Joe Lam House Work Phone: [facility] DO Work Phone: 09-18-2022 11:55-0500 Body surface area Derived from formula 2.39 m2 Joe P House Work Phone: [facility] DO Work Phone: 09-18-2022 11:55-0500 Body weight 118.39 kg Joe P House Work Phone: [facility] DO Work Phone: 09-18-2022 11:55-0500 Diastolic blood pressure 72 mm[Hg] Joe P House Work Phone: [facility] DO Work Phone: 09-18-2022 11:55-0500 Systolic blood pressure 142 mm[Hg] Joe P House Work Phone: [facility] DO Work Phone: 03-19-2022 11:01-0400 Body height 182.88 cm Joe P House Work Phone: [facility] DO Work Phone: 03-19-2022 11:01-0400 Body mass index (BMI) [Ratio] 35.13 kg/m2 Joe P House Work Phone: [facility] DO Work Phone: 03-19-2022 11:01-0400 Body surface area Derived from formula 2.38 m2 Joe P House Work Phone: [facility] DO Work Phone: 03-19-2022 11:01-0400 Body weight 117.48 kg Joe P House Work Phone: [facility] DO Work Phone: 03-19-2022 11:01-0400 Diastolic blood pressure 62 mm[Hg] Joe P House Work Phone: [facility] DO Work Phone: 03-19-2022 11:01-0400 Heart rate 60 /min Joe P House Work Phone: [facility] DO Work Phone: 03-19-2022 11:01-0400 Systolic blood pressure 102 mm[Hg] Joe P House Work Phone: [facility] DO Work Phone: 12-09-2021 10:30-0400 Diastolic blood pressure 68 mm[Hg] Joe P House Work Phone: [facility] DO Work Phone: 12-09-2021 10:30-0400 Systolic blood pressure 118 mm[Hg] Joe P House Work Phone: [facility] DO Work Phone: 12-09-2021 10:25-0400 Body height 182.88 cm Joe P House Work Phone: [facility] DO Work Phone: 12-09-2021 10:25-0400 Body mass index (BMI) [Ratio] 36.08 kg/m2 Joe P House Work Phone: [facility] DO Work Phone: 12-09-2021 10:25-0400 Body surface area Derived from formula 2.4 m2 Joe P House Work Phone: [facility] DO Work Phone: 12-09-2021 10:25-0400 Body weight 120.66 kg Joe P House Work Phone: [facility] DO Work Phone: 12-09-2021 10:25-0400 Diastolic blood pressure 72 mm[Hg] Joe P House Work Phone: [facility] DO Work Phone: 12-09-2021 10:25-0400 Heart rate 66 /min Joe P House Work Phone: [facility] [employer] 250 DO Work Phone: 12-09-2021 10:25-0400 Systolic blood pressure 124 mm[Hg] Joe Lam House Work Phone: [facility] [employer] 250 DO Work Phone: 08-08-2021 15:15-0500 Body height 182.88 cm Jocelyn Diaz Other [facility] Other 08-08-2021 15:15-0500 Body mass index (BMI) [Ratio] 34.58 kg/m2 Jocelyn iDaz Other [facility] Other 08-08-2021 15:15-0500 Body temperature 97.1 [degF] Jocelyn Diaz Other [facility] Other 08-08-2021 15:15-0500 Body weight 115.67 kg Jocelyn Diaz Other [facility] Other 08-08-2021 15:15-0500 Respiratory rate 18 /min Jocelyn Diaz Other [facility] Other 08-08-2021 15:15-0500 SaO2% (BldA) [Mass fraction] 98 % Jocelyn Diaz Other [facility] Other Encounters Encounter Date Encounter Type Care Provider Facility Start: 02-07-2025 End: 02-07-2025 ambulatory SANDER CARDOZA Not Available Start: 02-07-2025 End: 02-07-2025 Patient encounter procedure Sander Cardoza DO Work Phone: [facility] Comment on above: Status post reverse arthroplasty of left shoulder (Primary Dx) Start: 02-07-2025 End: 02-07-2025 ambulatory SANDER CARDOZA Not Available Start: 02-02-2025 End: 02-02-2025 Bamboo flowsheet Lisa Macias DENTAL LAB TECHNICIAN [facility] Start: 02-02-2025 End: 02-02-2025 Bamboo flowsheet Lisa Macias DENTAL LAB TECHNICIAN [facility] Start: 02-02-2025 End: 02-02-2025 ambulatory Lisa Macias DENTAL LAB TECHNICIAN [facility] Comment on above: Localized osteoarthr itis of left shoulder (Primary Dx); Status post reverse arthroplasty of left shoulder Start: 01-30-2025 End: 01-30-2025 Bamboo flowsheet Callie Mckenzie DENTAL LAB TECHNICIAN [facility] Start: 01-30-2025 End: 01-30-2025 Bamboo flowsheet Callie Mckenzie DENTAL LAB TECHNICIAN [facility] Start: 01-30-2025 End: 01-30-2025 ambulatory Callie Mckenzie DENTAL LAB TECHNICIAN [facility] Comment on above: Localized osteoarthr itis of left shoulder (Primary Dx); Status post reverse arthroplasty of left shoulder Start: 01-26-2025 End: 01-26-2025 Bamboo flowsheet Lance Centeno DENTAL LAB TECHNICIAN [facility] Start: 01-26-2025 End: 01-26-2025 Bamboo flowsheet Lance Centeno DENTAL LAB TECHNICIAN [facility] Start: 01-26-2025 End: 01-26-2025 ambulatory Lance Centeno DENTAL LAB TECHNICIAN [facility] Comment on above: Localized osteoarthr itis of left shoulder (Primary Dx); Status post reverse arthroplasty of left shoulder Start: 01-16-2025 End: 01-16-2025 Bamboo flowsheet Lisa Macias DENTAL LAB TECHNICIAN [facility] Start: 01-16-2025 End: 01-16-2025 Bamboo flowsheet Lisa Macias DENTAL LAB TECHNICIAN [facility] Start: 01-16-2025 End: 01-16-2025 ambulatory Lisa Macias DENTAL LAB TECHNICIAN [facility] Comment on above: Localized osteoarthr itis of left shoulder (Primary Dx); Status post reverse arthroplasty of left shoulder Start: 01-12-2025 End: 01-12-2025 Bamboo flowsheet Lance Centeno DENTAL LAB TECHNICIAN [facility] Start: 01-12-2025 End: 01-12-2025 Bamboo flowsheet Lance Centeno DENTAL LAB TECHNICIAN [facility] Start: 01-12-2025 End: 01-12-2025 ambulatory Lance Centeno DENTAL LAB TECHNICIAN [facility] Comment on above: Localized osteoarthr itis of left shoulder (Primary Dx); Status post reverse arthroplasty of left shoulder Start: 01-09-2025 End: 01-09-2025 Bamboo flowsheet Callie Claytonbley DENTAL LAB TECHNICIAN [facility] Start: 01-09-2025 End: 01-09-2025 Bamboo flowsheet Callie Kelbley DENTAL LAB TECHNICIAN [facility] Start: 01-09-2025 End: 01-09-2025 ambulatory Callie Claytonbley DENTAL LAB TECHNICIAN [facility] Comment on above: Localized osteoarthr itis of left shoulder (Primary Dx); Status post reverse arthroplasty of left shoulder Start: 01-02-2025 End: 01-02-2025 Bamboo flowsheet Lisa Macias DENTAL LAB TECHNICIAN [facility] Start: 01-02-2025 End: 01-02-2025 Bamboo flowsheet Lisa Macias DENTAL LAB TECHNICIAN [facility] Start: 01-02-2025 End: 01-02-2025 ambulatory Lisa Macias DENTAL LAB TECHNICIAN [facility] Comment on above: Localized osteoarthr itis of left shoulder (Primary Dx); Status post reverse arthroplasty of left shoulder Start: 12-29-2024 End: 12-29-2024 Bamboo flowsheet Lisa Macias DENTAL LAB TECHNICIAN [facility] Start: 12-29-2024 End: 12-29-2024 Bamboo flowsheet Lisa Macias DENTAL LAB TECHNICIAN [facility] Start: 12-29-2024 End: 12-30-2024 ambulatory Lisa Macias DENTAL LAB TECHNICIAN [facility] Comment on above: Localized osteoarthr itis of left shoulder (Primary Dx); Status post reverse arthroplasty of left shoulder Start: 12-26-2024 End: 12-26-2024 Bamboo flowsheet Callie Kelbley DENTAL LAB TECHNICIAN [facility] Start: 12-26-2024 End: 12-26-2024 Bamboo flowsheet Callie Kelbley DENTAL LAB TECHNICIAN [facility] Start: 12-26-2024 End: 12-26-2024 ambulatory Callei Claytonbley DENTAL LAB TECHNICIAN [facility] Comment on above: Localized osteoarthr itis of left shoulder (Primary Dx); Status post reverse arthroplasty of left shoulder Start: 12-23-2024 End: 12-23-2024 Bamboo flowsheet Lisa Macias DENTAL LAB TECHNICIAN [facility] Start: 12-23-2024 End: 12-23-2024 Bamboo flowsheet Lisa Macias DENTAL LAB TECHNICIAN [facility] Start: 12-23-2024 End: 12-23-2024 ambulatory Lisa Macias DENTAL LAB TECHNICIAN [facility] Comment on above: Localized osteoarthr itis of left shoulder (Primary Dx); Status post reverse arthroplasty of left shoulder Start: 12-22-2024 ambulatory JOE Conklin y:[facility] Start: 12-20-2024 End: 12-20-2024 Bamboo flowsheet Margarita Andre PT [facility] Start: 12-20-2024 End: 12-20-2024 Bamboo flowsheet Margarita Andre PT [facility] Start: 12-20-2024 End: 12-20-2024 ambulatory Margarita Andre PT [facility] Comment on above: Localized osteoarthr itis of left shoulder (Primary Dx); Status post reverse arthroplasty of left shoulder Start: 12-15-2024 End: 12-15-2024 ambulatory Margarita Andre PT [facility] Comment on above: Localized osteoarthr itis of left shoulder (Primary Dx); Status post reverse arthroplasty of left shoulder Start: 12-13-2024 End: 12-13-2024 Bamboo flowsheet Margarita Andre PT [facility] Start: 12-13-2024 End: 12-13-2024 Bamboo flowsheet Margarita Andre PT [facility] Start: 12-13-2024 End: 12-13-2024 ambulatory Margarita Andre PT [facility] Comment on above: Localized osteoarthr itis of left shoulder (Primary Dx); Status post reverse arthroplasty of left shoulder Start: 12-08-2024 End: 12-08-2024 ambulatory LISA MACIAS Not Available Start: 12-05-2024 End: 12-05-2024 Bamboo flowsheet Lacnetrace Centeno DENTAL LAB TECHNICIAN [facility] Start: 12-05-2024 End: 12-05-2024 Bamboo flowsheet Lance Centeno DENTAL LAB TECHNICIAN [facility] Start: 12-05-2024 End: 12-05-2024 ambulatory Lance Centeno DENTAL LAB TECHNICIAN [facility] Comment on above: Localized osteoarthr itis of left shoulder (Primary Dx); Status post reverse arthroplasty of left shoulder Start: 12-01-2024 End: 12-01-2024 ambulatory Margarita Thai PT [facility] Comment on above: Localized osteoarthr itis of left shoulder (Primary Dx); Status post reverse arthroplasty of left shoulder Start: 12-01-2024 End: 12-01-2024 Bamboo flowsheet Margarita Andre PT [facility] Start: 12-01-2024 End: 12-01-2024 Bamboo flowsheet Margaritagricel Andre PT [facility] Start: 11-24-2024 End: 11-24-2024 Patient encounter procedure Sander Cardoza DO Work Phone: [facility] Comment on above: Status post reverse arthroplasty of left shoulder (Primary Dx) Start: 11-24-2024 End: 11-24-2024 ambulatory SANDER CARDOZA Not Available Start: 11-24-2024 End: 11-24-2024 ambulatory SANDER CARDOZA Not Available Start: 10-24-2024 End: 10-24-2024 Clinisync Result Encounter Sander Cardoza DO Work Phone: [facility] Unsolicited Start: 10-24-2024 End: 10-24-2024 Clinisync Result Encounter Sander Cardoza DO Work Phone: [facility] Unsolicited Start: 10-24-2024 End: 10-24-2024 ambulatory Sander Cardoza Facility:[facility] Start: 10-10-2024 End: 10-11-2024 ambulatory Sander Cardoza Facility:[facility] Start: 10-10-2024 End: 10-10-2024 Clinisync Result Encounter Sander Cardoza DO Work Phone: [facility] Unsolicited Start: 10-10-2024 End: 10-10-2024 Clinisync Result Encounter Sander Cardoza DO Work Phone: [facility] Unsolicited Start: 10-04-2024 End: 10-04-2024 ambulatory SANDER CARDOZA Not Available Start: 09-22-2024 End: 09-22-2024 ambulatory SANDER CARDOZA Not Available Start: 09-19-2024 ambulatory JOE MADDOX Facilit y:[facility] Start: 09-13-2024 End: 09-13-2024 Bamboo flowsheet Sander Cardoza DO Work Phone: [facility] Start: 09-13-2024 End: 09-13-2024 Bamboo flowsheet Sander Cardoza DO Work Phone: [facility] Start: 09-13-2024 End: 09-13-2024 Patient encounter procedure Sander Cardoza DO Work Phone: [facility] Comment on above: Left shoulder pain, unspecified chronicity (Primary Dx) Start: 09-13-2024 End: 09-13-2024 ambulatory SANDER CARDOZA Not Available Start: 07-26-2024 End: 07-26-2024 ambulatory JOE MADDOX Facility:[facility] Start: 06-22-2024 End: 06-22-2024 ambulatory JOSE APONTE Not Available Start: 06-22-2024 End: 06-22-2024 Patient encounter procedure Jose Aponte PA Work Phone: [facility] Comment on above: Primary osteoarthrit is of left shoulder (Primary Dx); Left shoulder pain, unspecified chronicity Start: 06-22-2024 End: 06-22-2024 ambulatory JOSE APONTE Not Available Start: 06-20-2024 End: 06-20-2024 ambulatory JOE MADDOX Facility:[facility] Start: 04-26-2024 End: 04-26-2024 ambulatory García Castro Facility:[facility] Start: 04-08-2024 End: 04-08-2024 ambulatory Ariana Urena Facility:[facility] Start: 03-14-2024 End: 03-14-2024 ambulatory JOE MADDOX Facility:[facility] Start: 03-07-2024 End: 03-07-2024 ambulatory JOE MADDOX Facility:[facility] Start: 03-02-2024 End: 03-02-2024 ambulatory JOE MADDOX Facility:[facility] Start: 02-23-2024 End: 02-23-2024 ambulatory García Castro Facility:[facility] Start: 02-16-2024 End: 02-16-2024 ambulatory García SnyderEulalia Matthew Facility:[facility] Start: 02-09-2024 End: 02-09-2024 ambulatory [facility] Start: 11-30-2023 End: 11-30-2023 ambulatory Nails Talal Zulay Facility:[facility] Start: 11-24-2023 End: 11-25-2023 ambulatory [facility] Start: 11-24-2023 End: 11-24-2023 Subsequent hospital visit by physician Patricia Taylor 1 [facility] Start: 11-23-2023 End: 11-24-2023 ambulatory [facility] Start: 11-23-2023 End: 11-23-2023 Subsequent hospital visit by physician Patricia Taylor Admin Room 1 [facility] Comment on above: NSTEMI, initial epis ode of care (Multi); Other cough; Other fatigue; HOPPER (dyspnea on exertion) Start: 11-12-2023 End: 11-12-2023 Telephone encounter Ramo Ramirez CMA [facility] Start: 11-10-2023 End: 11-10-2023 Orders Only Not In System Ref Prov [facility] Start: 11-05-2023 End: 11-05-2023 Orders Only Cele Gibson A [facility] Comment on above: Positive colorectal cancer screening using Cologuard test Start: 11-04-2023 End: 11-04-2023 ambulatory Sander Elias Facility:[facility] Start: 11-04-2023 End: 11-04-2023 ambulatory DO Joe House Work Phone: [facility] Work Phone: Start: 11-04-2023 End: 11-04-2023 Departed Referred DO Joe House Work Phone: [facility] Start: 10-22-2023 End: 10-22-2023 Office outpatient visit 25 minutes [facility] DO Work Phone: [facility] Comment on above: 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); Hypertension, benign; Mixed hyperlipidemia; Gastrointestinal hemorrhage, unspecified gastrointestinal hemorrhage type; Other cough; Other fatigue; HOPPER (dyspnea on exertion); Former cigarette smoker Start: 10-22-2023 End: 10-22-2023 ambulatory [facility] Start: 10-15-2023 End: 10-15-2023 ambulatory García Castro Facility:[facility] Start: 10-15-2023 End: 10-15-2023 ambulatory DO García Castro Facility:[facility] Start: 10-09-2023 End: 10-09-2023 ambulatory [facility] Start: 10-09-2023 End: 10-09-2023 Office outpatient new 30 minutes Marietta Lillian FloydBrice RECYCLING DIRECTOR-NURSING HOME MANAGER Work Phone: [facility] Comment on above: Positive colorectal cancer screening using Cologuard test (Primary Dx); Loose stools Start: 09-30-2023 Non-patient / Non-visit DO Melissa gusman House Work Phone: [facility] Work Phone: Start: 09-30-2023 End: 10-01-2023 Evaluation and management of inpatient Tamara Bhandarichler Facility:[facility] Start: 09-30-2023 End: 10-01-2023 Evaluation and management of inpatient DO Joe House Work Phone: [facility] [employer] Work Phone: Start: 09-23-2023 ambulatory PA-Molly Urena Facility:[facility] Start: 09-22-2023 End: 09-23-2023 ambulatory Neel Robin Facility:[facility] Start: 07-31-2023 End: 07-31-2023 ambulatory PA-Molly Urena Facility:[facility] Start: 06-25-2023 End: 06-25-2023 ambulatory Neymar Willingham Facility:[facility] Start: 06-05-2023 End: 06-05-2023 ambulatory Ariana Urena Facility:[facility] Start: 05-19-2023 End: 05-19-2023 ambulatory Neymar Willingham Facility:[facility] Start: 04-08-2023 End: 04-08-2023 ambulatory Ariana Urena Facility:[facility] Start: 03-26-2023 Office outpatient vi sit 25 minutes Joe P House Work Phone: [facility] 250 DO Work Phone: Start: 03-26-[address] Addy Fuller Facility: Start: 03-09-2023 Rx Renewal Joe P Hous e Work Phone: [facility] 250 DO Work Phone: Start: 10-29-2022 ambulatory Emanuel Andrews Facility:1 [id number] Start: 09-18-2022 Office consultation new/estab patient 60 min Joe P House Work Phone: [facility] 250 DO Work Phone: Start: 09-18-2022 Office outpatient vi sit 25 minutes Joe P House Work Phone: [facility] 250 DO Work Phone: Start: 09-18-[address] Addy Fuller Facility: Start: 05-22-2022 End: 05-23-[address] DOCTOR OCAMPO Facility:[facility] Start: 04-25-2022 End: 04-25-[address] JOE MADDOX Facility:[facility] Start: 04-23-2022 End: 04-24-[address] JOE MADDOX Facility:[facility] Start: 04-02-2022 End: 04-03-[address] JOE MADDOX Facility:[facility] Start: 03-19-2022 Office outpatient vi sit 25 minutes Joe P House Work Phone: [facility] 250 DO Work Phone: Start: 02-10-2022 End: 02-11-[address] JOE MADDOX Facility:[facility] Start: 12-17-2021 End: 02-19-2022 ambulatory EMANUEL TORRESCecileYAIMA Facility:[facility] Start: 12-09-2021 Transitional care paradise lazaro srvc 14 day discharge Joe Maddox Work Phone: [facility] [employer] 250 DO Work Phone: Start: 11-23-2021 End: 11-23-2021 ambulatory [facility] Facility:[facility] Start: 10-05-2021 End: 10-05-2021 ambulatory [facility] Facility:[facility] Start: 08-08-2021 End: 08-08-2021 ambulatory Jocelyn Diaz Other [facility] Home Chef Other Start: 08-08-2021 Office outpatient ne w 20 minutes Jocelyn Diaz [facility] [place] Patient encounter status Joe Maddox Work Phone: [facility] [employer] 250 DO Work Phone: End: 03-26-2023 Patient encounter status Joe Maddox Work Phone: [facility] [employer] 250 DO Work Phone: Procedures Date Procedure Procedure Detail Performing Clinician Start: 02-07-2025 Radex shoulder compl ete minimum 2 views Sander Cardoza DO Work Phone: Start: 11-24-2024 Radex shoulder compl ete minimum 2 views Sander Cardoza DO Work Phone: Start: 10-24-2024 XR SHOULDER COMPLETE LEFT Sander Cardoza DO Work Phone: Start: 10-10-2024 UA WITH CULT RFLX Julian Cardoza DO Work Phone: Start: 06-22-2024 Arthrocentesis aspir &/inj major jt/bursa w/us Jose Aponte PA Work Phone: Start: 06-22-2024 Radex shoulder compl ete minimum 2 views Jose Aponte PA Work Phone: Start: 11-24-2023 NUCLEAR STRESS TEST PORFIRIO FULLER Start: 11-04-2023 EGD / COLONOSCOPY Payal ca A Brice RECYCLING DIRECTOR-NURSING HOME MANAGER Work Phone: Start: 11-04-2023 Level i surg patholo gy gross examination only Not In System Ref Prov Start: 09-30-2023 [facility] Angio DO C sofia Maddox Work Phone: Start: 09-30-2023 DO Joe Maddox Work Phone: Start: 05-25-2023 History of percutane ous transluminal coronary angioplasty History of PTCA Addy Fuller DO Work Phone: Start: 02-10-[address] DOCTOR OCAMPO Comment on above: Performed By: #### B CID2 #### [facility] [address] [place] [address] Dr. Troy Hickey Appendectomy Joe Lam [employer] Work Phone: Cardiac catheterization Kika olesya Lam [employer] Work Phone: Colonoscopy Joe Lam [employer] Work Phone: Decompression of med lenore nerve Joe Lam [employer] Work Phone: History of percutane ous transluminal coronary angioplasty History of PTCA Joe Lam [employer] Work Phone: History of percutane ous transluminal coronary angioplasty History of PTCA Addy Fuller DO Work Phone: Insertion of arterial stent Joe Lam [employer] Work Phone: Prosthetic arthropla sty of the hip Joe Lam [employer] Work Phone: Repair of shoulder Joe Lam [employer] Work Phone: Total replacement of hip Melissa lizziemiguel Lam [employer] Work Phone: Plan of Treatment Date Care Activity Detail Author Start: 10-06-2031 DTaP,Tdap and Td Vaccines (2 - Tdap) DTaP,Tdap and Td Vaccines (2 - Tdap) [facility] [employer] Start: 10-06-2031 DTaP/Tdap/Td Vaccine s (2 - Tdap) DTaP/Tdap/Td Vaccines (2 - Tdap) [facility] Start: 05-09-2025 End: 05-09-2025 Patient encounter procedure 05/09/2025 2:00 PM EDT Office Visit [facility] [address] [place] [address] Sander Cardoza, DO [address] [place] [address] [facility] Start: 02-07-2025 End: 02-07-2025 Patient encounter procedure 02/07/2025 2:00 PM EDT Office Visit [facility] [address] [place] [phone] Sander Cardoza, DO [address] [place] [address] [facility] Start: 02-02-2025 End: 02-02-2025 ambulatory 02/02/2025 1:30 PM EDT Treatment [facility] [address] [place] [address] Lisa Macias, DENTAL LAB TECHNICIAN [facility] Start: 01-30-2025 End: 01-30-2025 ambulatory [facility] Comment on above: Arrived Start: 01-26-2025 End: 01-26-2025 ambulatory [facility] Comment on above: Arrived Start: 01-19-2025 End: 01-19-2025 ambulatory 01/19/2025 1:30 PM EDT Treatment [facility] [address] [place] [address] Lisa Macias, DENTAL LAB TECHNICIAN [facility] Start: 01-16-2025 End: 01-16-2025 ambulatory [facility] Comment on above: Localized osteoarthr itis of left shoulder (Primary Dx); Status post reverse arthroplasty of left shoulder Start: 01-12-2025 End: 01-12-2025 ambulatory [facility] Comment on above: Localized osteoarthr itis of left shoulder (Primary Dx); Status post reverse arthroplasty of left shoulder Start: 01-09-2025 End: 01-09-2025 ambulatory [facility] Start: 01-05-2025 End: 01-05-2025 ambulatory 01/05/2025 1:30 PM EDT Treatment [facility] [address] [place] [address] Margarita Andre, PT [facility] Start: 01-02-2025 End: 01-02-2025 ambulatory [facility] Comment on above: Localized osteoarthr itis of left shoulder (Primary Dx); Status post reverse arthroplasty of left shoulder Start: 12-29-2024 End: 12-29-2024 ambulatory 12/29/2024 1:30 PM EDT Treatment [facility] [address] [place] [address] Margarita Andre, PT [facility] Start: 12-26-2024 End: 12-26-2024 ambulatory [facility] Comment on above: Arrived Start: 12-23-2024 End: 12-23-2024 ambulatory [facility] Comment on above: Arrived Start: 12-22-2024 End: 12-22-2024 ambulatory 12/22/2024 1:30 PM EDT Treatment [facility] [address] [place] [address] Lance Centeno, DENTAL LAB TECHNICIAN [facility] Start: 12-20-2024 End: 12-20-2024 ambulatory [facility] Comment on above: Arrived Start: 12-15-2024 End: 12-15-2024 ambulatory 12/15/2024 1:30 PM EDT Treatment [facility] [address] [place] [address] Margarita Andre, PT [facility] Start: 12-13-2024 End: 12-13-2024 ambulatory 12/13/2024 1:30 PM EDT Treatment [facility] [address] [place] [address] Margarita Andre, PT [facility] Start: 12-08-2024 End: 12-08-2024 ambulatory [facility] Start: 12-05-2024 End: 12-05-2024 ambulatory [facility] Comment on above: Arrived Start: 12-01-2024 End: 12-01-2024 ambulatory 12/01/2024 2:30 PM EDT Evaluation [facility] [address] [place] [address] Margarita Andre, PT [facility] Start: 11-24-2024 End: 11-24-2024 Patient encounter procedure 11/24/2024 2:00 PM EDT Office Visit [facility] [address] [place] [address] Sander Cardoza, DO [address] [place] [address] [facility] Start: 10-08-2024 Adult BMI Screening Adult BMI Screen ing [facility] Start: 10-08-2024 Tobacco Screening Tobacco Screening [facility] Start: 09-13-2024 End: 09-13-2024 Patient encounter procedure 09/13/2024 1:00 PM EST Office Visit [facility] [address] [place] [address] Sander Cardoza, DO [address] [place] [address] Left shoulder pain, unspecified chronicity (Primary Dx) [facility] Comment on above: Left shoulder pain, unspecified chronicity (Primary Dx) Start: 03-20-2024 Influenza vaccination Influenza Vacc ine [facility] Start: 02-09-2024 End: 02-09-2024 Patient encounter procedure 02/09/2024 1:40 PM EDT Office Visit [facility] [address] [place] [id number] Addy Fuller, DO [address] [place] [address] [facility] Start: 11-24-2023 End: 11-24-2023 Patient encounter procedure 11/24/2023 11:45 AM EDT Appointment Jg Estevez [facility] [place] [phone] [facility] Start: 11-24-2023 Subsequent hospital visit by physician 11/24/2023 11:30 AM EDT Hospital Encounter Jg Estevez [facility] [place] [phone] [facility] Start: 10-22-2023 End: 10-21-2025 NM Heart Perfusion W stress and W radionuclide IV Nuclear Stress Test Cardiac Nuclear Medicine Routine NSTEMI, initial episode of care ([facility]) Other cough Other fatigue HOPPER (dyspnea on exertion) Expected: 10/22/2023 (Approximate), Expires: 10/21/2025 [facility] Service Area Work Phone: Comment on above: Expected: 10/22/2023 (Approximate), Expires: 10/21/2025 Start: 10-22-2023 FUV, Provider: Addy Fuller, Status: Pen, Time: 10:50 AM FUV, Provider: Addy Fuller, Status: Pen, Time: 10:50 AM [facility] 250 DO Work Phone: Start: 10-10-2023 [facility] Start: 10-09-2023 [facility] Start: 10-08-2023 [facility] Start: 10-07-2023 [facility] Start: 10-06-2023 [facility] Start: 10-05-2023 [facility] Start: 10-04-2023 [facility] Start: 10-03-2023 [facility] Start: 10-02-2023 [facility] Start: 09-30-2023 Fluoroscopy of Left Heart using Low Osmolar Contrast Fluoroscopy of Left Heart using Low Osmolar Contrast [facility] Start: 09-30-2023 Fluoroscopy of Multi ple Coronary Arteries using Low Osmolar Contrast Fluoroscopy of Multiple Coronary Arteries using Low Osmolar Contrast [facility] Start: 09-30-2023 Measurement of Cardi ac Sampling and Pressure, Left Heart, Percutaneous Approach Measurement of Cardiac Sampling and Pressure, Left Heart, Percutaneous Approach [facility] Start: 09-30-2023 Referral to garden center manager [facility] Start: 09-30-2023 Hospital admission [facility] Start: 09-30-2023 [facility] Start: 05-27-2023 FUV, Provider: Emanuel Smalls, Status: Pen, Time: 1:30 PM FUV, Provider: Emanuel Smalls, Status: Pen, Time: 1:30 PM [facility] 250 DO Work Phone: Start: 03-26-2023 FUV, Provider: Addy Fuller, Status: Pen, Time: 11:20 AM FUV, Provider: Addy Fuller, Status: Pen, Time: 11:20 AM [facility] 250 DO Work Phone: Start: 03-20-2023 COVID-19 Vaccine ( season) COVID-19 Vaccine ( season) [facility] Start: 10-29-2022 FUV, Provider: Emanuel Smalls, Status: Pen, Time: 1:00 PM FUV, Provider: Emanuel Smalls, Status: Pen, Time: 1:00 PM [facility] 250 DO Work Phone: Start: 09-25-2022 FUV, Provider: Addy Fuller, Status: Pen, Time: 11:20 AM FUV, Provider: Addy Fuller, Status: Pen, Time: 11:20 AM [facility] 250 DO Work Phone: Start: 03-19-2022 FUV, Provider: Addy Fuller, Status: Pen, Time: 10:30 AM FUV, Provider: Addy Fuller, Status: Pen, Time: 10:30 AM [facility] 250 DO Work Phone: Start: 2020 Abdominal aortic aneurysm screening Abdominal Aortic Aneurysm (AAA) Screening [facility] Start: 2020 Fall Risk Screening Fall Risk Screen ing [facility] Start: 2015 RSV patient s and/or patients aged 60+ years (1 - 1-dose 60+ series) RSV patients and/or patients aged 60+ years (1 - 1-dose 60+ series) [facility] Start: 2005 Administration of varicella zoster vaccine Zoster (Shingles) Vaccine (1 of 2) [facility] Start: 2005 Zoster Vaccines (1 of 2) Zoste r Vaccines (1 of 2) [facility] Start: 1973 Adult BMI Follow Up Plan Adult BMI Follow Up Plan [facility] Start: 1973 Hepatitis C screening Hepatitis C Sc reening [facility] Start: 1967 Depression Screening Depression Scre ening [facility] Start: 1961 Pneumococcal Vaccine : 65+ Years (1 - PCV) Pneumococcal Vaccine: 65+ Years (1 - PCV) [facility] Start: 1961 Pneumococcal Vaccine : 65+ Years (1 of 2 - PCV) Pneumococcal Vaccine: 65+ Years (1 of 2 - PCV) [facility] Start: 1955 Lipid panel Lipid Panel [facility] Start: 1955 Medicare Annual Well ness Visit [facility] Start: 1955 Screening for malign ant neoplasm of colon [facility] End: 10-08-2024 EGD / Colonoscopy EGD / Colonoscopy GI Routine Positive colorectal cancer screening using Cologuard test 1 Occurrences starting 10/09/2023 until 10/08/2024 [place] Work Phone: Comment on above: 1 Occurrences starti ng 10/09/2023 until 10/08/2024 End: 11-23-2023 NM Heart Perfusion W stress and W radionuclide IV [facility] Service Area Work Phone: Comment on above: Once for 1 Occurrenc es starting 11/23/2023 until 11/23/2023 XR Shoulder - left 2 Views XR shoulder 2+ views left Imaging Routine Status post reverse arthroplasty of left shoulder 11/24/2024 11:31 AM EDT [facility] Work Phone: XR Shoulder - left 2 Views XR shoulder 2+ views left Imaging Routine Status post reverse arthroplasty of left shoulder 02/07/2025 11:10 AM EDT [facility] Work Phone: Immunizations Immunization Date Immunization Notes Care Provider Brandon espinoza 05-26-2023 influenza virus vaccine, unspecified formulation Cele Gibson [facility] 10-05-2021 diphtheria, tetanus toxoids and pertussis vaccine [facility] Work Phone: [facility] 250 DO Work Phone: 05-20-2021 Moderna COVID-19 Vaccine 100 MCG/0.5ML Intramuscular Suspension [facility] Work Phone: [facility] 250 DO Work Phone: 04-03-2021 Pfizer-BioNTech COVID-19 Vacc 30 MCG/0.3ML Intramuscular Suspension [facility] Work Phone: [place] [address] DO Work Phone: 03-13-2021 Pfizer-BioNTech COVID-19 Vacc 30 MCG/0.3ML Intramuscular Suspension [facility] Work Phone: [facility] 250 DO Work Phone: 01-17-2021 Pfizer Purple Cap SARS-CoV-2 Addy Fuller DO Work Phone: [facility] Work Phone: 01-17-2021 Pfizer-BioNT COVID-1 9 Vac-Lawson 30 MCG/0.3ML Intramuscular Suspension [facility] Work Phone: [facility] 250 DO Work Phone: Comment on above: Series: 12-18-2020 Pfizer Purple Cap SARS-CoV-2 Addy Fuller DO Work Phone: [facility] Work Phone: 12-18-2020 Pfizer-BioNT COVID-1 9 Vac-Lawson 30 MCG/0.3ML Intramuscular Suspension Joe Maddox Work Phone: -[facility] 250 DO Work Phone: Comment on above: Series: Payers Date Payer Category Payer Self-pay [id number] 2023 Medicare [employer] MEDICARE UHC MEDICARE DUAL COMPLETE [id number] 2023-Present [phone] [address] [address] [place] [address] [id number] 2023 Medicare (Managed Care) [facility] MEDICARE [id number] 2022 Private Health Insurance [facility] DUAL COMPLETE [facility] DUAL COMPLETE [id number] 2022-Present [address] [address] [place] [address] [id number]. 2.7.3.288252.315 2020 Medicaid [id number]. 1.13.647. [id number] 2017 Unknown [id number] 1959 Medicaid [id number] 2.16.840.1.780162.19 1959 Medicare [id number] 1955 Unknown [id number] 2.16.840.1.483176.3.579. 2.593 1955 Unknown [id number] 2.16.840.1.525384.3.579. 2.593 1955 Unknown [id number] 2.16.840.1.824706.3.579. 2.593 1955 Unknown [id number] 2.16.840.1.974863.3.579. 2.593 1955 Unknown [id number] 2.16.840.1.004717.3.579. 2.593 1955 Unknown [id number] 2.16.840.1.191343.3.579. 2.593 1955 Unknown [id number] 2.16.840.1.099009.3.579. 2.593 1955 Unknown [id number] 2.16.840.1.289617.3.579. 2.593 1955 Unknown [id number] 2.16.840.1.510497.3.579. 2.356 1955 Unknown [id number] 2.16.840.1.171910.3.579. 2.356 1955 Unknown [id number] 2.16.840.1.714701.3.579. 2.356 1955 Unknown [id number] 2.16.840.1.515296.3.579. 2.1286 1955 Unknown [id number] 2.16.840.1.890479.3.579. 2.1246 1955 Unknown [id number] 2.16.840.1.454340.3.579. 2.1246 1955 Unknown [id number] 2.16.840.1.702942.3.579. 2.1246 1955 Unknown [id number] 2.16.840.1.899473.3.579. 2.1246 1955 Unknown [id number] 2.16.840.1.047350.3.579. 2.1246 1955 Unknown [id number] 2.16.840.1.826375.3.579. 2. 1955 Unknown [id number] 2.16.840.1.513189.3.579. 2.72 1955 Unknown [id number] 2.16.840.1.885757.3.579. 2. 1955 Unknown [id number] 2.16.840.1.279061.3.579. 2. 1955 Unknown [id number] 2.16.840.1.405859.3.579. 2. 1955 Unknown [id number] 2.16.840.1.170707.3.579. 2 1955 Unknown [id number] 2.16.840.1.200273.3.579. 2. 1955 Unknown [id number] 2.16.840.1.998914.3.579. 2 1955 Unknown [id number] 2.16.840.1.613708.3.579. 2. 1955 Unknown [id number] 2.16.840.1.354629.3.579. 2 1955 Unknown [id number] 2.16.840.1.208320.3.579. 2. 1955 Unknown [id number] 2.16.840.1.616969.3.579. 2. 1955 Unknown [id number] 2.16.840.1.528837.3.579. 2. 1955 Unknown [id number] 2.16.840.1.208671.3.579. 2. 1955 Unknown [id number] 2.16.840.1.141347.3.579. 2.1244 1955 Unknown [id number] 2.16.840.1.241124.3.579. 2.1244 1955 Unknown [id number] 2.16.840.1.080659.3.579. 2.727 1955 Unknown [id number] 2.16.840.1.889375.3.579. 2.72 1955 Unknown [id number] 2.16.840.1.255047.3.579. 2.72 1955 Unknown [id number] 2.16.840.1.053648.3.579. 2. 1955 Unknown [id number] 2.16.840.1.532694.3.579. 2.72 1955 Unknown [id number] 2.16.840.1.860375.3.579. 2.72 1955 Unknown [id number] 2.16.840.1.567404.3.579. 2. 1955 Unknown [id number] 2.16.840.1.079389.3.579. 2. 1955 Unknown [id number] 2.16.840.1.292637.3.579. 2. 1955 Unknown [id number] 2.16.840.1.418018.3.579. 2. 1955 Unknown [id number] 2.16.840.1.893014.3.579. 2. 1955 Unknown [id number] 2.16.840.1.415565.3.579. 2.1258 1955 Unknown [id number] 2.16.840.1.548282.3.579. 2.1259 1955 Unknown [id number] 2.16.840.1.788267.3.579. 2.1259 1955 Unknown [id number] 2.16.840.1.498459.3.579. 2.1258 1955 Unknown [id number] 2.16.840.1.583240.3.579. 2.1258 1955 Unknown [id number] 2.16.840.1.138596.3.579. 2.1258 1955 Unknown [id number] 2.16.840.1.493670.3.579. 2.1258 1955 Unknown [id number] 2.16.840.1.762519.3.579. 2.1258 1955 Unknown [id number] 2.16.840.1.276655.3.579. 2.1258 1955 Unknown [id number] 2.16.840.1.624888.3.579. 2.1258 1955 Unknown [id number] 2.16.840.1.989262.3.579. 2.1258 1955 Unknown [id number] 2.16.840.1.881735.3.579. 2.1258 1955 Unknown [id number] 2.16.840.1.455597.3.579. 2.1258 1955 Unknown [id number] 2.16.840.1.362732.3.579. 2.1258 1955 Unknown [id number] 2.16.840.1.066482.3.579. 2.1258 1955 Unknown [id number] 2.16.840.1.755029.3.579. 2.1258 1955 Unknown [id number] 2.16.840.1.684232.3.579. 2.1258 1955 Unknown [id number] 2.16.840.1.900307.3.579. 2.1258 1955 Unknown [id number] 2.16.840.1.052109.3.579. 2.1259 1955 Unknown [id number] 2.16.840.1.094868.3.579. 2.1259 1955 Unknown [id number] 2.16.840.1.492114.3.579. 2.9 1955 Unknown [id number] 2.16.840.1.042219.3.579. 2.1259 1955 Unknown [id number] 2.16.840.1.235424.3.579. 2.1259 1955 Unknown [id number] 2.16.840.1.322514.3.579. 2.1259 1955 Unknown [id number] 2.16.840.1.810459.3.579. 2.1259 Medicare [id number] Unknown Unknown [id number] 2.16.840.1.511153.19 Unknown [id number] 2.16.840.1.288657.3.579. 2.531 Unknown [id number] 2.16.840.1.494906.3.579. 2.531 Social History Date Type Detail Facility Start: 10-22-2023 End: 02-07-2025 Former smoker Former smoker [facility] Other Comment on above: quit as a teen; 1 daily; pop 1 daily; Start: 10-22-2023 End: 02-07-2025 Sex Assigned At [facility] Other Start: 09-30-2023 End: 11-18-2023 Tobacco smoking status NHIS Never smoked tobacco (finding) [facility] Start: 1955 Sex Assigned At Male F [facility] Start: 05-25-2023 End: 10-09-2023 Tobacco smoking status ARIS Ex-smoker [facility] History of tobacco use Current smoker [facility] History of tobacco use Cigarette Smoker [facility] Start: 10-22-2023 End: 02-07-2025 Alcohol intake Lifetime non-drinker (finding) [facility] Work Phone: Start: 1955 Sex Assigned At Not on file P [facility] Start: 10-12-2023 End: 11-24-2023 Exposure to SARS-CoV-2 (event) Not sure [facility] Start: 10-09-2023 End: 11-18-2023 Tobacco use and exposure Smokeless tobacco non-user [facility] Start: 10-09-2023 Alcoholic beverage intake Ex-drinker (finding) [facility] Start: 10-09-2023 Tobacco Comment Smoked for a s hort time as a teenager [facility] Medical Equipment Procedure Code Equipment Code Equipment Origin al Text Equipment Identifier Dates CL STENT PACO 2. 25 X 18 FDA Start: 11-25-2021 Drug-eluting coronary artery stent, [id number] lymer-coated ()[id number] [id number] FDA Start: 11-25-2021 Drug-eluting coronary artery stent, [id number] lymer-coated ()[id number] [id number] FDA Start: 11-25-2021 CL STENT PACO 2. 25 X 18 FDA Start: 11-25-2021 Clinical Notes 08-08-2021 to 02-07-2025 Crys Byrne - 02/07/2025 2:00 PM EDTSammantemma Andre, PT - 12/20/2024 1:30 PM EDTSbridgetntemma Andre, PT - 12/15/2024 1:30 PM EDTSammantemma Andre, PT - 12/13/2024 1:30 PM EDTPatient Instructions Note Date & Type Note Facility 02-07-2025 History of Present illness Narrative Images from the original note were not included. Barry Galdamez is a 69 y.o. male presents with chief complaint of follow up left reverse total shoulder arthroplasty. HPI: Barry is here three and a half months postoperative, still having some weakness, night discomfort and some achiness. Pain in general is much better. His preoperative pain is essentially resolved. He is happy with the progress made. He is done with physical therapy. He has been provided with a home exercise program. He denies any numbness or tingling. No fever or chills. No falls or trauma reported. SUBJECTIVE: MEDICATIONS: Current Outpatient Medications Medication Instructions atorvastatin (LIPITOR) 80 mg, Nightly benzonatate (Tessalon) 100 MG capsule Breztri Aerosphere 160-9-4.8 MCG/ACT aerosol 2 puffs, 2 times daily ciclopirox (Loprox) 0.77 % cream APPLY THIN LAYER TO AFFECTED AREA ONCE A DAY FOR 30 DAYS Ciclopirox 1 % shampoo LATHER ON WET HAIR,LEAVE ON FOR 5 MINUTES,THEN RINSE 2 TO 3 TIMES PER WEEK FOR 30 DAYS clopidogrel (PLAVIX) 75 mg, Daily gabapentin (NEURONTIN) 800 mg, 3 times daily hydrOXYzine HCl (ATARAX) 25 mg ketoconazole (NIZOral) 2 % shampoo levoFLOXacin (LEVAQUIN) 500 mg meclizine (ANTIVERT) 25 mg, 3 times daily meloxicam (MOBIC) 15 mg, Daily RT metoprolol succinate XL (TOPROL-XL) 50 mg, Daily RT naloxone (Narcan) 4 mg/0.1 mL nasal spray nitroglycerin (Nitrostat) 0.4 MG SL tablet pantoprazole (PROTONIX) 40 mg, Daily Sodium Sulfate-Mag Sulfate-KCl (Sutab) 0624-989-247 MG tablet tadalafil (CIALIS) 20 mg, Daily PRN traMADol (ULTRAM) 50 mg traZODone (DESYREL) 50 mg, Nightly valsartan (DIOVAN) 160 mg, Daily RT Ventolin HFA 108 (90 Base) MCG/ACT inhaler 2 puffs, Every 6 hours PRN ALLERGIES: Allergies Allergen Reactions Aspirin GI bleeding SURGICAL HISTORY: Past Surgical History: Procedure Laterality Date APPENDECTOMY 1966 CAROTID STENT 2022 x 3 SHOULDER SURGERY Right MTP TOTAL SHOULDER ARTHROPLASTY Left 10/24/2024 MTP FAMILY HISTORY: No family history on file. SOCIAL HISTORY: Social History Tobacco Use Smoking status: Never Smokeless tobacco: Never Vaping Use Vaping status: Never Used Substance Use Topics Alcohol use: Never Drug use: Never Depression: Not on file REVIEW OF SYMPTOMS: The review of systems, history and current medications list are all reviewed today. OBJECTIVE: Visit Vitals Ht 6' Wt 238 lb BMI 32.28 kg/m Smoking Status Never BSA 2.34 m Physical Exam On physical exam, the incision is clean, dry and intact. Range of motion is much improved. Strength still shows mild to moderate weakness but no pain or instability. The patient is neurovascularly intact distally without sign of rash or infectious process. X-rays and imaging permanently saved to the patient's record were reviewed two view shoulder AP and Y saved to the permanent record in the [facility] office shows stable position and alignment of the reverse arthroplasty. There is no sign of loosening or infection. No sign of heterotopic calcification. ASSESSMENT AND PLAN: Assessment/Plan Follow up left reverse total shoulder arthroplasty. The nature of the findings were discussed at length. He will continue with the home exercise program. Follow up will be in three months for repeat x-ray and exam, sooner if worse. He voices verbal understanding. He is discharged in stable condition. The patient was seen and examined. From the time of check in, nurse triage, vital signs, x-ray, x-ray interpretation, review of systems, comprehensive history and physical exam as well as setting up treatment plan and further management took 35 minutes. Cosigned by Sander Cardoza DO at 02/13/2025 2:18 PM EDT documented in this encounter [facility] 01-16-2025 Note - From: JOE MADDOX DO To: [facility] Clinical Pool ([facility]); Sent: 01/15/2025 16:46:47 EDT Subject: FW: Medication Management Due Date/Time: 01/16/2025 07:37:00 EDT Caller Name: BARRY GALDAMEZ; Caller Number: Anne , From: [facility] [id number] To: JOE MADDOX DO Sent: January 15, 2025 6:37:24 AM CDT Subject: Medication Management Due: January 16, 2025 12:46:59 AM CDT On Hold Pending Signature Dispensed Drug: gabapentin (gabapentin 800 mg oral tablet), TAKE 1 TABLET BY MOUTH THREE TIMES A DAY Quantity: 90 tab(s) Days Supply: 30 Refills: 2 Substitutions Allowed Notes from Pharmacy: On Hold Pending Signature Dispensed Drug: ketoconazole topical (ketoconazole 2% topical shampoo), USE DIRECTED ON PACKAGE LABELING Quantity: 120 mL Days Supply: 30 Refills: 3 Substitutions Allowed Notes from Pharmacy: Submitted: Order:ketoconazole topical (ketoconazole 2% topical shampoo) See Instructions USE DIRECTED ON PACKAGE LABELING Qty: 120 mL Days Supply: 30 Refills: 3 Substitutions Allowed Route To Pharmacy - [facility]/pharmacy #[id number] Signed by Katelin Bazan 01/16/2025 07:45:00 EDT Submitted: Complete:ketoconazole topical (ketoconazole 2% topical shampoo) Signed by Katelin Bazan 01/16/2025 07:45:00 EDT Not Approved: New Rx to follow ketoconazole topical (KETOCONAZOLE 2% SHAMPOO) USE DIRECTED ON PACKAGE LABELING Qty: 120 mL Days Supply: 30 Refills: 3 Substitutions Allowed Route To Pharmacy - [facility]/pharmacy #[id number] Signed by Katelin Bazan From: Katelin Bazan To: [facility]/pharmacy #[id number] Sent: 01/16/2025 07:47:52 EDT Subject: FW: Medication Management Not Approved: proposed to provider gabapentin (GABAPENTIN 800 MG TABLET) TAKE 1 TABLET BY MOUTH THREE TIMES A DAY Qty: 90 tab(s) Days Supply: 30 Refills: 2 Substitutions Allowed Route To Pharmacy - [facility]/pharmacy [facility][id number] Signed by Beni [facility] 12-20-2024 History of Present illness Narrative Images from the original note were not included. Physical Therapy Treatment Visit Patient Name: Barry Galdamez Today's Date: 12/20/2024 Encounter Diagnoses Name Primary? Localized osteoarthritis of left shoulder Yes Status post reverse arthroplasty of left shoulder Visit number: 6 Timed Code Treatment Minutes: 40 minutes Total Treatment Time: 50 minutes Time In: 1327 Time Out: 1420 History: Pt presents to PT s/p left reverse TSA on October 24. Pt states he is right hand dominant. Pt states sling was discharged last week. Pt states he is taking pain medication as needed and no longer having to ice left shoulder. Still having some issues with sleeping due to left shoulder pain. Precautions: [place], Left GRICEL Subjective: Pt states he tripped and fell yesterday and landed on left shoulder. Shoulder was sore last night but feels back to normal today. Will see Dr again in January. Pain: 10/27. Objective: PT Evaluation (12/01/2024) Left SHOULDER AROM: 50 degrees flexion, 42 degrees abduction, lacks 12 degrees from neutral ER, IR to left buttock PROM: 92 degrees flexion, 70 degrees abduction, 8 degrees ER, IR WFL Strength: all MMT performed in neutral: ER and abduction 3-/5, flexion 3/5, IR 4-/5 Palpation: Moderate tenderness post shoulder and left UT Special Test: N/A Treatment: Education: HEP education with demonstration, Educated on Eval Findings and POC Manual Therapy: () Passive ROM and STM. Joint mobilization, Soft Tissue Mobilization, Myofascial Release, Muscle Energy Technique, Neural Mobilization, Myofascial Cupping, Dry Needling, IASTM, and Scar mobilization as needed. Therapeutic Exercise: (40 minutes) Strength, Endurance, Flexibility, ROM, HEP, Neural Mobilization, Power, and Core Stability as needed. Pt performed exercises per grid. Progressed strengthening exercises this date. Therapeutic Activity: Exercises to improve dynamic activities, functional tasks, functional mobility to return to prior activity level as needed. Neuromuscular re-education: Balance Training, Muscle Facilitation, Dynamic Stability, Core Stabilization, and Blood Flow Restriction Training (BFRT) as needed. Modalities: Heat, Ice, Electrical Stimulation, Ultrasound, Cervical Mechanical Traction, Lumbar Mechanical Traction, Iontophoresis, and Fluidotherapy as needed. CP x10 minutes in supine to left shoulder for symptom control. Assessment: Pt has completed 6 PT sessions following left rev TSA. Strength left shoulder ER remains 3-/5. Pt with mild fatigue noted with exercises. Requires occasional cueing for proper form and technique. Outcome Measure: Upper Extremity Functional Index (UEFI): 54/80 Rehab Diagnosis: left shoulder pain and weakness, decrease ROM and mobility left shoulder pain Short Term Goal: To be met in 2 weeks Goal 1: Pt to be instructed in home exercise program. Alf Goals: To be met in 10 weeks [...] POC medically necessary. Please sign below. Date: documented in this encounter [facility] 12-15-2024 History of Present illness Narrative Images from the original note were not included. Physical Therapy Treatment Visit Patient Name: Barry Galdamez Today's Date: 12/15/2024 Encounter Diagnoses Name Primary? Localized osteoarthritis of left shoulder Yes Status post reverse arthroplasty of left shoulder Visit number: 5 Timed Code Treatment Minutes: 29 minutes Total Treatment Time: 39 minutes Time In: 1331 Time Out: 1421 History: Pt presents to PT s/p left reverse TSA on October 24. Pt states he is right hand dominant. Pt states sling was discharged last week. Pt states he is taking pain medication as needed and no longer having to ice left shoulder. Still having some issues with sleeping due to left shoulder pain. Precautions: [place], [place], Left GRICEL Subjective: Pt states he was pretty sore following last session. Was doing more at work yesterday so having more pain today. Not planning on working today. Will see again in January. Pain: 10/27. Objective: PT Evaluation (12/01/2024) Left SHOULDER AROM: 50 degrees flexion, 42 degrees abduction, lacks 12 degrees from neutral ER, IR to left buttock PROM: 92 degrees flexion, 70 degrees abduction, 8 degrees ER, IR WFL Strength: all MMT performed in neutral: ER and abduction 3-/5, flexion 3/5, IR 4-/5 Palpation: Moderate tenderness post shoulder and left UT Special Test: N/A Treatment: Education: HEP education with demonstration, Educated on Eval Findings and POC Manual Therapy: () Passive ROM and STM. Joint mobilization, Soft Tissue Mobilization, Myofascial Release, Muscle Energy Technique, Neural Mobilization, Myofascial Cupping, Dry Needling, IASTM, and Scar mobilization as needed. Therapeutic Exercise: (29 minutes) Strength, Endurance, Flexibility, ROM, HEP, Neural Mobilization, Power, and Core Stability as needed. Pt performed and instructed therex to improve shoulder ROM and functional tolerance. Therapeutic Activity: Exercises to improve dynamic activities, functional tasks, functional mobility to return to prior activity level as needed. Neuromuscular re-education: Balance Training, Muscle Facilitation, Dynamic Stability, Core Stabilization, and Blood Flow Restriction Training (BFRT) as needed. Modalities: Heat, Ice, Electrical Stimulation, Ultrasound, Cervical Mechanical Traction, Lumbar Mechanical Traction, Iontophoresis, and Fluidotherapy as needed. CP x10 minutes in supine to left shoulder for symptom control. Assessment: Pt has completed 5 PT sessions following left rev TSA. Decreased intensity of exercises this date due to pain. Pt with moderate pain behaviors noted during exercises. Discussed allowing left UE to rest next day or two with good pt understanding. Will continue to progress as pt tolerates. Outcome Measure: Upper Extremity Functional Index (UEFI): 54/80 Rehab Diagnosis: left shoulder pain and weakness, decrease ROM and mobility left shoulder pain Short Term Goal: To be met in 2 weeks Goal 1: Pt to be instructed in home exercise program. Alf Goals: To be met in 10 weeks [...] POC medically necessary. Please sign below. Date: documented in this encounter [facility] 12-13-2024 History of Present illness Narrative Images from the original note were not included. Physical Therapy Treatment Visit Patient Name: Barry Galdamez Today's Date: 12/13/2024 Encounter Diagnoses Name Primary? Localized osteoarthritis of left shoulder Yes Status post reverse arthroplasty of left shoulder Visit number: 4 Timed Code Treatment Minutes: 30 minutes Total Treatment Time: 40 minutes Time In: 1335 Time Out: 1421 History: Pt presents to PT s/p left reverse TSA on October 24. Pt states he is right hand dominant. Pt states sling was discharged last week. Pt states he is taking pain medication as needed and no longer having to ice left shoulder. Still having some issues with sleeping due to left shoulder pain. Precautions: [place], [place], Left GRICEL Subjective: Pt with no new complaints regarding left shoulder. States pain today rates about 2-3/10 Pain: 2/10. Objective: PT Evaluation (12/01/2024) Left SHOULDER AROM: 50 degrees flexion, 42 degrees abduction, lacks 12 degrees from neutral ER, IR to left buttock PROM: 92 degrees flexion, 70 degrees abduction, 8 degrees ER, IR WFL Strength: all MMT performed in neutral: ER and abduction 3-/5, flexion 3/5, IR 4-/5 Palpation: Moderate tenderness post shoulder and left UT Special Test: N/A Treatment: Education: HEP education with demonstration, Educated on Eval Findings and POC Manual Therapy: () Passive ROM and STM. Joint mobilization, Soft Tissue Mobilization, Myofascial Release, Muscle Energy Technique, Neural Mobilization, Myofascial Cupping, Dry Needling, IASTM, and Scar mobilization as needed. Therapeutic Exercise: (30 minutes) Strength, Endurance, Flexibility, ROM, HEP, Neural Mobilization, Power, and Core Stability as needed. Pt performed and instructed therex to improve shoulder ROM and functional tolerance. Therapeutic Activity: Exercises to improve dynamic activities, functional tasks, functional mobility to return to prior activity level as needed. Neuromuscular re-education: Balance Training, Muscle Facilitation, Dynamic Stability, Core Stabilization, and Blood Flow Restriction Training (BFRT) as needed. Modalities: Heat, Ice, Electrical Stimulation, Ultrasound, Cervical Mechanical Traction, Lumbar Mechanical Traction, Iontophoresis, and Fluidotherapy as needed. CP x10 minutes in supine to left shoulder for symptom control. Assessment: Pt has completed 4 PT sessions following left rev TSA. Active flexion continues to be limited to 50 degrees in standing. Pt able to achieve 100 degrees left shoulder flexion active assisted. Will continue to progress as pt tolerates. Outcome Measure: Upper Extremity Functional Index (UEFI): 54/80 Rehab Diagnosis: left shoulder pain and weakness, decrease ROM and mobility left shoulder pain Short Term Goal: To be met in 2 weeks Goal 1: Pt to be instructed in home exercise program. [employer] Goals: To be met in 10 weeks [...] POC medically necessary. Please sign below. Date: documented in this encounter [facility] 12-12-2024 Note Entered by ADRIANO MADDOX DO on December 12, 2024 10:37:39 EDT From: JOE MADDOX DO To: [facility]/pharmacy #[id number] Sent: 12/12/2024 10:37:39 EDT Subject: Medication Management Submitted: Complete:albuterol (Ventolin HFA 90 mcg/inh inhalation aerosol) Signed by JOE MADDOX DO 12/12/2024 10:37:00 EDT Approved with modifications: albuterol (ALBUTEROL HFA (PROAIR) INHALER) INHALE 2 PUFFS EVERY 6 HOURS NEEDED Qty: 8.5 EA Days Supply: 25 Refills: 5 Substitutions Allowed Route To Pharmacy - [facility]/pharmacy #[id number] From: [id number] To: JOE MADDOX DO Sent: December 10, 2024 8:39:04 AM CDT Subject: Medication Management Due: December 11, 2024 12:14:07 AM CDT On Hold Pending Signature Dispensed Drug: albuterol (Albuterol (Eqv-ProAir HFA) 90 mcg/inh inhalation aerosol), INHALE 2 PUFFS EVERY 6 HOURS NEEDED Quantity: 8.5 EA Days Supply: 25 Refills: 5 Substitutions Allowed Notes from Pharmacy: [facility] 11-24-2024 History of Present illness Narrative Images from the original note were not included. Barry Galdamez is a 69 y.o. male presents with chief complaint of PO < 90 days status post left reverse total shoulder arthroplasty. HPI: Barry is here for his left shoulder replacement from a month out. His pain is controlled. He denies any numbness or tingling. No falls or trauma reported. SUBJECTIVE: MEDICATIONS: Current Outpatient Medications Medication Instructions atorvastatin (LIPITOR) 80 mg, Nightly benzonatate (Tessalon) 100 MG capsule Breztri Aerosphere 160-9-4.8 MCG/ACT aerosol 2 puffs, 2 times daily ciclopirox (Loprox) 0.77 % cream APPLY THIN LAYER TO AFFECTED AREA ONCE A DAY FOR 30 DAYS Ciclopirox 1 % shampoo LATHER ON WET HAIR,LEAVE ON FOR 5 MINUTES,THEN RINSE 2 TO 3 TIMES PER WEEK FOR 30 DAYS clopidogrel (PLAVIX) 75 mg, Daily gabapentin (NEURONTIN) 800 mg, 3 times daily hydrOXYzine HCl (ATARAX) 25 mg ketoconazole (NIZOral) 2 % shampoo levoFLOXacin (LEVAQUIN) 500 mg meclizine (ANTIVERT) 25 mg, 3 times daily meloxicam (MOBIC) 15 mg, Daily RT metoprolol succinate XL (TOPROL-XL) 50 mg, Daily RT naloxone (Narcan) 4 mg/0.1 mL nasal spray nitroglycerin (Nitrostat) 0.4 MG SL tablet pantoprazole (PROTONIX) 40 mg, Daily Sodium Sulfate-Mag Sulfate-KCl (Sutab) 3872-472-354 MG tablet tadalafil (CIALIS) 20 mg, Daily PRN traMADol (ULTRAM) 50 mg traZODone (DESYREL) 50 mg, Nightly valsartan (DIOVAN) 160 mg, Daily RT Ventolin HFA 108 (90 Base) MCG/ACT inhaler 2 puffs, Every 6 hours PRN ALLERGIES: Allergies Allergen Reactions Aspirin GI bleeding SURGICAL HISTORY: Past Surgical History: Procedure Laterality Date APPENDECTOMY 1967 CAROTID STENT 2022 x 3 SHOULDER SURGERY Right MTP TOTAL SHOULDER ARTHROPLASTY Left 10/24/2024 MTP FAMILY HISTORY: No family history on file. SOCIAL HISTORY: Social History Tobacco Use Smoking status: Never Smokeless tobacco: Never Vaping Use Vaping status: Never Used Substance Use Topics Alcohol use: Never Drug use: Never Depression: Not on file REVIEW OF SYMPTOMS: The review of systems, history and current medications list are all reviewed today. OBJECTIVE: Visit Vitals Ht 6' Wt 238 lb BMI 32.28 kg/m Smoking Status Never BSA 2.34 m Physical Exam On physical exam, he is alert and oriented. Vital signs are stable. There is no obvious sign of rash or infection. The incision is clean, dry and intact. There is a moderate amount of stiffness. The patient is neurovascularly intact distally. X-rays and imaging permanently saved to the patient's record were reviewed shows stable position and alignment of the reverse arthroplasty. No sign of subluxation or dislocation seen. ASSESSMENT AND PLAN: Assessment/Plan Follow up left reverse total shoulder arthroplasty. The nature of the findings were discussed at length. Physical therapy script was provided three times a week for eight weeks. Follow up will be in two months for repeat x-ray and exam, slow progression of activities as tolerated. He may start weaning out of the sling. Any increasing pain, problems or issues will be reported. Numerous questions were answered. He is discharged in stable condition. Cosigned by Sander Cardoza DO at 11/29/2024 10:07 AM EDT documented in this encounter [facility] 11-20-2024 Note Entered by ADRIANO MADDOX DO on November 20, 2024 20:47:16 EDT From: JOE MADDOX DO To: [facility]/pharmacy #[id number] Sent: 11/20/2024 20:47:16 EDT Subject: Medication Management Submitted: Complete:meclizine (meclizine 25 mg oral tablet) Signed by JOE MADDOX DO 11/20/2024 20:47:00 EDT Approved with modifications: meclizine (MECLIZINE 25 MG TABLET) TAKE 1 TABLET BY MOUTH THREE TIMES A DAY Qty: 90 tab(s) Days Supply: 30 Refills: 2 Substitutions Allowed Route To Pharmacy - [facility]/pharmacy #[id number] From: [email or web address] To: JOE MADDOX DO Sent: November 18, 2024 11:14:03 AM CDT Subject: Medication Management Due: November 19, 2024 12:09:44 AM CDT On Hold Pending Signature Dispensed Drug: meclizine (meclizine 25 mg oral tablet), TAKE 1 TABLET BY MOUTH THREE TIMES A DAY Quantity: 90 tab(s) Days Supply: 30 Refills: 2 Substitutions Allowed Notes from Pharmacy: [facility] 11-07-2024 Note Entered by ADRIANO MADDOX DO on November 07, 2024 07:49:05 EDT From: JOE MADDOX DO To: [facility]/pharmacy #[id number] Sent: 11/07/2024 07:49:05 EDT Subject: Medication Management Approved with modifications: silver sulfADIAZINE topical (SILVER SULFADIAZINE 1% CREAM) APPLY TO AFFECTED AREA TWICE A DAY Qty: 400 gm Days Supply: 30 Refills: 1 Substitutions Allowed Route To Pharmacy - [facility]/pharmacy #[id number] From: [email or web address] To: JOE MADDOX DO Sent: November 06, 2024 2:19:24 PM CDT Subject: Medication Management Due: November 07, 2024 12:22:49 AM CDT On Hold Pending Signature Dispensed Drug: silver sulfADIAZINE topical (silver sulfADIAZINE 1% topical cream), APPLY TO AFFECTED AREA TWICE A DAY Quantity: 400 gm Days Supply: 30 Refills: 1 Substitutions Allowed Notes from Pharmacy: [facility] 10-26-2024 Note Progress Note-Physic lenore Patient: BARRY GALDAMEZ Age: 69 years Sex: Male : 1955 Associated Diagnoses: None Author: Chad Weldon MD Postoperative Information Postoperative disposition: Postoperative disposition: To PACU. Optimetrix number: Optimetrix number [id number]. Anesthetic utilized: General. Regional: Interscalene Block. Health Status Allergies: Allergic Reactions (Selected) No Known Allergies Physical Examination VS/Measurements Pain Assessment: Controlled. General: Awake, Appropriate. Respiratory: Adequate air exchange. Cardiovascular: Stable. Neurological Assessment Anesthetic outcome No anesthetic complications noted. Adequate pain relief. Review / Management Condition: Stable. Plan Transfer/Discharge: Transfer/Discharge Discharge when meets criteria ( To home ). [facility] Comment on above: Result Comment: Elec tronically Signed By: Chad Weldon MD\.br\Date and Time Signed: 10/26/24 12:58 EDT 10-24-2024 Note Patient Education - Text Pulmonary Medicine How to Use an Incentive Spirometer An incentive spirometer is a tool that measures how well you are filling your lungs with each breath. Learning to take long, deep breaths using this tool can help you keep your lungs clear and active. This may help to reverse or lessen your chance of developing breathing (pulmonary) problems, especially infection. You may be asked to use a spirometer: ??? After a surgery. ??? If you have a lung problem or a history of smoking. ??? After a long period of time when you have been unable to move or be active. If the spirometer includes an indicator to show the highest number that you have reached, your health care provider or respiratory therapist will help you set a goal. Keep a log of your progress as told by your health care provider. What are the risks? Breathing too quickly may cause dizziness or cause you to pass out. Take your time so you do not get dizzy or light-headed. ??? If you are in pain, you may need to take pain medicine before doing incentive spirometry. It is harder to take a deep breath if you are having pain. How to use your incentive spirometer 1. Sit up on the edge of your bed or on a chair. 2. Hold the incentive spirometer so that it is in an upright position. 3. Before you use the spirometer, breathe out normally. 4. Place the mouthpiece in your mouth. Make sure your lips are closed tightly around it. 5. Breathe in slowly and as deeply as you can through your mouth, causing the piston or the ball to rise toward the top of the chamber. 6. Hold your breath for 3?5 seconds, or for as long as possible. ??? If the spirometer includes a head girls golf coach indicator, use this to guide you in breathing. Slow down your breathing if the indicator goes above the marked areas. 7. Remove the mouthpiece from your mouth and breathe out normally. The piston or ball will return to the bottom of the chamber. 8. Rest for a few seconds, then repeat the steps 10 or more times. ??? Take your time and take a few normal breaths between deep breaths so that you do not get dizzy or light-headed. ??? Do this every 1?2 hours when you are awake. 9. If the spirometer includes a goal marker to show the highest number you have reached (best effort), use this as a goal to work toward during each repetition. 10. After each set of 10 deep breaths, cough a few times. This will help to make sure that your lungs are clear. ??? If you have an incision on your chest or abdomen from surgery, place a pillow or a rolled-up towel firmly against the incision when you cough. This can help to reduce pain while taking deep breaths and coughing. General tips ??? When you are able to get out of bed: ? Walk around often. ? Continue to take deep breaths and cough in order to clear your lungs. ??? Keep using the incentive spirometer until your health care provider says it is okay to stop using it. If you have been in the hospital, you may be told to keep using the spirometer at home. Contact a health care provider if: ??? You are having difficulty using the spirometer. ??? You have trouble using the spirometer as often as instructed. ??? Your pain medicine is not giving enough relief for you to use the spirometer as told. ??? You have a fever. Get help right away if: ??? You develop shortness of breath. ??? You develop a cough with bloody mucus from the lungs. ??? You have fluid or blood coming from an incision site after you cough. Summary ??? An incentive spirometer is a tool that can help you learn to take long, deep breaths to keep your lungs clear and active. ??? You may be asked to use a spirometer after a surgery, if you have a lung problem or a history of smoking, or if you have been inactive for a long period of time. ??? Use your incentive spirometer as instructed every 1?2 hours while you are awake. ??? If you have an incision on your chest or abdomen, place a pillow or a rolled-up towel firmly against your incision when you cough. This will help to reduce pain. ??? Get help right away if you have shortness of breath, you cough up bloody mucus, or blood comes from your incision when you cough. This information is not intended to replace advice given to you by your health care provider. Make sure you discuss any questions you have with your health care provider. Document Revised: 09/24/2020 Document Reviewed: 09/24/2020 [employer] Patient Education ? 2023 [employer]. [place], [place] [facility] DISCHARGE INSTRUCTIONS: SHOULDER REPLACEMENT MEDICATIONS You will be given a prescription for pain medication. This should be taken with food as needed. This may cause stomach upset, dizziness, and possible constipation. Please notify the offi (more content not included)... [facility] 10-24-2024 Note Progress Note-Cassandra grover Patient: BARRY GALDAMEZ Age: 69 years Sex: Male : 1955 Associated Diagnoses: None Author: Chad Weldon MD Procedure Nerve Block Block Type: Interscalene block. Laterality: Right, Left. Informed consent for anesthesia management: Anesthesia options discussed including nerve block, Description of the procedure, risks, benefits, and alternatives was provided, The patient's questions were addressed. Time out: Confirmed correct patient, procedure and site. Time: Date/Time 10/24/2024 08:05:00. Indication: Block for postoperative pain management as requested by surgeon. Anesthesia Method: IV Sedation with monitored anesthesia care, The patient remained awake and able to interact in a meaningful way throughout the procedure. Preparation: The patient was placed in the following position semirecumbant, Continuous pulse oximetry applied, Using maximal sterile barrier technique per current [facility] guidelines including hand hygeine, Guidance (Ultrasound used to identify anatomical landmarks, Using sterile gel and probe covers, Permanent image retained), The site was prepped with ChloraPrep. Procedure: Anesthetic Agent local 3cc 2% lido; 22g 50mm insulated echogenic block needle with US; 20cc .5% Ropivicaine with epi 5mcg//cc in increments; low pressure; needle tip visualized throughout; motor response between .5 and .25 mAmps. Early onset noted, Needle was inserted without pain or parasthesia in the conscious patient, Number of attempts 1, Negative attempt at aspiration for blood, Medial and lateral spread of the anesthestic was observed, Periodic negative attempts at aspiration of blood were made as the local was injected, No pain or parathesia were elicited with injection of the anesthetic in the conscious patient, It was idetified that the correct anesthetic agent was administered to the correct site. Complications: None, The patient tolerated the procedure as expected. [facility] Comment on above: Result Comment: Elec tronically Signed By: Chad Weldon MD\.br\Date and Time Signed: 10/24/24 08:22 EDT 10-24-2024 Note Progress Note-Cassandra grover Patient: BARRY GALDAMEZ Age: 69 years Sex: Male : 1955 Associated Diagnoses: None Author: Chad Weldon MD Preoperative Information Anesthesia Preop Info: Time patient last ate or drank 10/24/2024 00:00:00. Anesthesia history: Patient history: None. Family history+: None. Informed consent: Signed by patient. Re-evaluation prior to induction: Initial evaluation reviewed: No significant change. Review of Systems Eye Ear/Nose/Mouth/Throat Respiratory: No shortness of breath, No cough. Cardiovascular: Negative, No chest pain. Gastrointestinal: No heartburn. Musculoskeletal Neurologic Health Status Allergies: Allergic Reactions (Selected) No Known Allergies, Allergies (1) Active Severity Reaction No Known Allergies None Documented Current medications: (Selected) Inpatient Medications Ordered Arixtra 2.5 mg/0.5 mL Injection: 2.5 mg = 0.5 mL, Injection, SubCutaneous, qAM for 10 day(s), Stop date 11/04/24 6:29:00 EDT, Routine, Start date 10/25/24 6:30:00 EDT, Start AM postop day 1 Colace 100 mg Cap: 100 mg = 1 cap(s), Cap, Oral, BID, Routine, Start date 10/24/24 9:00:00 EDT Dulcolax 5 mg Tab-EC: 10 mg = 2 tab(s), Tab-EC, Oral, Daily PRN Constipation, Routine, Start date 10/26/24 8:30:00 EDT HYDROmorphone 1 mg/mL injectable solution: 0.4 mg = 0.4 mL, Injection, IV Push, q4min PRN Pain for 5 dose(s), Stop date Limited # of times, Routine, Start date 10/24/24 7:10:00 EDT, 10/24/24 7:10:00 EDT HYDROmorphone 1 mg/mL injectable solution: 1 mg = 1 mL, Injection, IV Push, q2hr PRN Pain 8-10 for 5 day(s), Stop date 10/29/24 8:29:00 EDT, Routine, Start date 10/24/24 8:30:00 EDT, 10/24/24 8:30:00 EDT Lactated Ringers IV Dilma 1000 mL 1,000 mL: 1,000 mL, IV, 80 mL/hr, Routine, Start date 10/24/24 8:30:00 EDT, 12.5 hour(s), Total volume (mL): 1,000, 109.8 kg, 2.37, m2 Milk of Magnesia 8% Susp-Oral: 30 mL, Susp-Oral, Oral, BID PRN Constipation, Routine, Start date 10/24/24 8:30:00 EDT Pantoprazole [address] Tab: 40 mg = 1 tab(s), Tab-DR, Oral, Daily, Routine, Start date 10/24/24 9:00:00 EDT Sodium Chloride 0.9% IV Dilma 1000 mL 1,000 mL: 1,000 mL, IV, 150 mL/hr, Routine, Start date 10/24/24 6:00:00 EDT, 6.7 hour(s), Total volume (mL): 1,000, 109.8 kg, 2.37, m2 Zofran 4 mg/2 mL Injection: 4 mg = 2 mL, Injection, IV Push, q6hr PRN Nausea/Vomiting, Routine, Start date 10/24/24 8:30:00 EDT, 10/24/24 8:30:00 EDT acetaminophen-oxycodone 325 mg-5 mg Tab: 1 tab(s), Tab, Oral, q4hr PRN Pain 4-7 for 5 day(s), Stop date 10/29/24 8:29:00 EDT, Routine, Start date 10/24/24 8:30:00 EDT acetaminophen-oxycodone 325 mg-5 mg Tab: 2 tab(s), Tab, Oral, q4hr PRN Pain 4-7 for 5 day(s), Stop date 10/29/24 8:29:00 EDT, Routine, Start date 10/24/24 8:30:00 EDT cefazolin additive + Sodium Chloride 0.9% intravenous solution 50 mL: 2 gm = 1 EA, IV Piggyback, q8hr for 2 dose(s), Stop date 10/25/24 0:59:00 EDT, Routine, Start date 10/24/24 9:00:00 EDT, 100 mL/hr, Infuse over 30 minute(s), 10/24/24 8:30:00 EDT cefazolin additive + Sodium Chloride 0.9% intravenous solution 50 mL: 2 gm = 1 EA, Powder-Inj, IV Piggyback, PREOP, Routine, Start date 10/24/24 6:00:00 EDT, 100 mL/hr, Infuse over 30 minute(s) morphine 2 mg/mL Inj: 2 mg = 1 mL, Injection, IV Push, q4hr PRN Pain 8-10 for 5 day(s), Stop date 10/29/24 8:29:00 EDT, Routine, Start date 10/24/24 8:30:00 EDT promethazine additive 6.25 mg + Sodium Chloride 0.9% IV Dilma 50 mL (INT) 50 mL: IV Piggyback, Once PRN Nausea/Vomiting, Routine, Start date 10/24/24 7:10:00 EDT, 150.75 mL/hr, Infuse over 20 minute(s), 10/24/24 7:10:00 EDT Prescriptions Prescribed Colace 100 mg Cap: 100 mg = 1 cap(s), Oral, BID, # 20 cap(s), Refills(s) 0, [id number] 184.4, cm, 10/12/24 5:32:00 EDT, Height/Length Dosing, 109.8, kg, 10/12/24 5:32:00 EDT, Weight Dosing Percocet 5 mg-325 mg oral tablet: See Instructions, 40 tab(s), Refill(s) 0, Take one to two oral every 4 hours as needed for surgical pain., [id number] 184.4, cm, 10/12/24 5:32:00 EDT, Height/Length Dosing, 109.8, kg, 10/12/24 5:32:00 EDT, Weight Dosing naloxone 0.4 mg/mL Inj: 0.4 mg = 1 mL, IntraMuscular, As Directed, for suspected overdose. (dispense 2 vials 0.4 mg/ml with syringes and needles for dose administration), # 1 kit(s), Refills(s) 0, [id number], 182.9, cm, 10/15/23 10:08:00 EDT, Height/Length... naloxone 4 mg/0.1 mL nasal spray: 4 mg, Nasal, As Directed, for suspected overdose symptoms, # 1 kit(s), Refills(s) 0, [id number], 182.9, cm, 10/15/23 10:08:00 EDT, Height/Length Dosing, 116.8, kg, 10/15/23 10:08:00 EDT, Weight Dosing Documented Medications Documented Albuterol (Eqv-ProAir HFA) 90 mcg/inh inhalation aerosol: 2 inh, Inhalation, Shortness of breath or wheezing, Refill(s) 0 Breztri Aerosphere inhalation aerosol: Inhalation, Shortness of breath or wheezing, Refill(s) 0 Co Q-10: Daily, Refills(s) 0 Metoprolol tartrate 50 mg Ta (more content not included)... [facility] Comment on above: Result Comment: Elec tronically Signed By: Shiraz FARFAN, Chad Madden\.br\Date and Time Signed: 10/24/24 07:18 EDT 10-17-2024 Note Patient Education - Text [place], [place] [facility] DISCHARGE INSTRUCTIONS: SHOULDER REPLACEMENT MEDICATIONS You will be given a prescription for pain medication. This should be taken with food as needed. This may cause stomach upset, dizziness, and possible constipation. Please notify the office if you have any medication allergies to this type of medication or if any problems develop with the medication. DRESSING CHANGES Leave your bandage in place until your follow up visit. The bandage is waterproof, so you may shower it home. Any increase in pain, temperature over 101 degrees, redness, or drainage should be reported to the office prior to your first office visit. ACTIVITY You may continue to progress activity as comfortably tolerated with your opposite arm. You may begin to use your elbow, wrist, and hand as directed in physical therapy. You should only remove your sling for bathing and to perform range of motion exercises for the hand, wrist, and elbow. Do not actively move your shoulder Continue to ice the shoulder several times per day until follow up. ANESTHESIA PRECAUTIONS You should not operate a vehicle, automobile, bicycle or motorcycle, machinery, or power tools, make any important decisions, or drink alcohol for 24 hours. It may be beneficial to have a responsible adult remain with you for your first 24 hours after surgery. You may be drowsy and light-headed. DRIVING Driving is legal, however, if you are involved in an accident, you must be able to prove that you maintained full control of your vehicle. For this reason, it is advised that you do not drive until your strength returns. PROBLEMS You should notify the office for any persistent or heavy bleeding, temperature above 101, redness, swelling, or drainage from the operative site, severe pain at the operative site, or the development of persistent vomiting. Sander Cardoza, DO [facility] [address] [place], [place] [id number] Reviewed: [facility] 09-13-2024 History of Present illness Narrative Images from the original note were not included. Barry Galdamez is a 69 y.o. male presents with chief complaint of left shoulder pain and stiffness. HPI: Barry is here of which he is having continued shoulder pain. He saw physician assistant analyst Jose Aponte, injection provided partial relief for a week or two. He has tried a home exercise program, ice, Tylenol and topicals. He has continued pain, stiffness, swelling and irritability. No fever or chills. No falls or trauma. He is having night disruption. He would like to move forward with further discussion of replacement. SUBJECTIVE: MEDICATIONS: Current Outpatient Medications Medication Instructions atorvastatin (LIPITOR) 80 mg, Nightly benzonatate (Tessalon) 100 MG capsule TAKE 1 CAPSULE BY MOUTH THREE TIMES A DAY NEEDED [facility] 160-9-4.8 MCG/ACT aerosol 2 puffs, 2 times daily ciclopirox (Loprox) 0.77 % cream Apply thin layer to affected area once a day, 30 day supply Ciclopirox 1 % shampoo Lather on wet hair, leave on 5 min, rinse 2-3 x week, 30 day supply clopidogrel (PLAVIX) 75 mg gabapentin (NEURONTIN) 800 mg, 3 times daily hydrOXYzine HCl (ATARAX) 25 mg ketoconazole (NIZOral) 2 % shampoo See Instructions, Instructions: USE DIRECTED ON PACKAGE LABELING, # 120 mL, 3 Refill(s), [facility]: [facility]/pharm[facility] #[id number], USE DIRECTED ON PACKAGE LABELING, 184, cm, 06/20/24 14:32:00 EST, Height, 108.5, kg, 06/20/24 14:41:00 EST, Weight Dosing levoFLOXacin (LEVAQUIN) 500 mg meclizine (ANTIVERT) 25 mg, 3 times daily meloxicam (MOBIC) 15 mg, Daily RT metoprolol succinate XL (TOPROL-XL) 50 mg, Daily RT naloxone (Narcan) 4 mg/0.1 mL nasal spray USE DIRECTED NASALLY FOR SUSPECTED OVERDOSE SYMPTOMS nitroglycerin (Nitrostat) 0.4 MG SL tablet PLEASE SEE ATTACHED FOR DETAILED DIRECTIONS pantoprazole (PROTONIX) 40 mg, Daily Sodium Sulfate-Mag Sulfate-KCl (Sutab) 3518-136-804 MG tablet Please see instructional sheet given by physicians office. tadalafil (CIALIS) 20 mg, Daily PRN traMADol (ULTRAM) 50 mg traZODone (DESYREL) 50 mg, Nightly valsartan (DIOVAN) 160 mg, Daily RT Ventolin HFA 108 (90 Base) MCG/ACT inhaler 2 puffs, Every 6 hours PRN ALLERGIES: Allergies Allergen Reactions Aspirin GI bleeding SURGICAL HISTORY: Past Surgical History: Procedure Laterality Date APPENDECTOMY 1967 CAROTID STENT 2022 x 3 SHOULDER SURGERY Right MTP FAMILY HISTORY: No family history on file. SOCIAL HISTORY: Social History Tobacco Use Smoking status: Never Smokeless tobacco: Never Vaping Use Vaping status: Never Used Substance Use Topics Alcohol use: Never Drug use: Never Depression: Not on file REVIEW OF SYMPTOMS: The review of systems, history and current medications list are all reviewed today. OBJECTIVE: Visit Vitals Ht 6' Wt 238 lb BMI 32.28 kg/m Smoking Status Never BSA 2.34 m Physical Exam On physical exam, he is alert and oriented. Vital signs are stable. He is a large male. The shoulder has mild swelling. There is no warmth or erythema. No rash or infection. There is a moderate amount of crepitance. The rotator cuff shows moderate to severe weakness. Cross arm produces pain. Active range of motion is mild to moderately restricted. He is neurovascularly intact distally. There is no sign of apprehension or instability. X-rays, permanently saved to the patient's record, are reviewed show end stage degenerative changes of the inferior half of the glenohumeral joint. It is grade IV severe in nature. There is mild decrease in the acromiohumeral interval. There is no fracture, dislocation, tumor or infection seen. These are reviewed from the permanent record in the [facility] office taken at last visit. ASSESSMENT AND PLAN: Assessment/Plan Left shoulder end stage osteoarthritis; chronic cuff arthropathy, failure of conservative and injection management. The nature of the findings were discussed at length. Ice, Tylenol and topicals have failed. Cortisone injection provided temporary relief. We will set up a CT scan with [employer] blueprint. We will set up for further review and depiction of pathology and treatment options. He voices verbal understanding. He is discharged in stable condition. Follow up post CT scan. The patient was seen and examined. From the time of check in, nurse triage, vital signs, x-ray, x-ray interpretation, review of systems, comprehensive history and physical exam as well as setting up treatment plan and further management took 35 minutes. Cosigned by Sander Cardoza DO at 09/16/2024 10:33 AM EST documented in this encounter [facility] 06-22-2024 History of Present illness Narrative Associated Order(s): L Inj/Asp: L glenohumeral Post-Procedure Diagnose(s): Primary osteoarthritis of left shoulder L Inj/Asp: L glenohumeral on 06/22/2024 3:40 PM Indications: pain Details: 25 G needle, ultrasound-guided anterolateral approach Medications: 12 mg betamethasone acetate-betamethasone sodium phosphate 6 (3-3) MG/ML Procedure, treatment alternatives, risks and benefits explained, specific risks discussed. Consent was given by the patient. Immediately prior to procedure a time out was called to verify the correct patient, procedure, equipment, it application support analyst and site/side marked as required. Patient was prepped and draped in the usual sterile fashion. GENERAL HISTORY AND PHYSICAL: NAME: Barry Galdamez : 1955 HISTORY OF PRESENT ILLNESS: Barry Galdamez is an 68 y.o. male is here for orthopedic evaluation left shoulder pain which has been going on for some time he denies any specific injury. Patient has had his left hip replaced in years past by Dr. Cardoza. PAST MEDICAL HISTORY: Past Medical History: Diagnosis Date Pulmonary fibrosis (CMS/HCC) PAST SURGICAL HISTORY: History reviewed. No pertinent surgical history. SOCIAL HISTORY: Social History Occupational History Not on file Tobacco Use Smoking status: Never Smokeless tobacco: Never Vaping Use Vaping status: Never Used Substance and Sexual Activity Alcohol use: Never Drug use: Never Sexual activity: Defer ALLERGIES: Allergies Allergen Reactions Aspirin GI bleeding MEDICATIONS: Current Outpatient Medications Medication Instructions atorvastatin (LIPITOR) 80 mg, Nightly benzonatate (Tessalon) 100 MG capsule TAKE 1 CAPSULE BY MOUTH THREE TIMES A DAY NEEDED FOR COUGH Breztri Aerosphere 160-9-4.8 MCG/ACT aerosol 2 puffs, 2 times daily ciclopirox (Loprox) 0.77 % cream Apply thin layer to affected area once a day, 30 day supply Ciclopirox 1 % shampoo Lather on wet hair, leave on 5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
--- OUTSIDE RECORDS SUMMARY | 2025-03-01 20:06 | XMS_ITS | Encounter Summary ---
Demographics Address [address] [place] [address] Home Phone Email Address Preferred Language Ukrainian Marital Status Zoroastrian Affiliation Unknown Race White Ethnic Group Unknown Author Organization [email or web address] tem Address [id number] [address] [place] [address] Care Team Providers Care Press Setter Name Role Phone Joe Marc DO Primary Care Provider [phone] Encounter Details Date Type Department Care Team ([facility] st Contact Info) Description 11/05/2023 Telephone ReplySend Physicians General Surgery [address] [place] [phone] Niharika Esteban RMA Social History Tobacco Use [...] colonoscopy on 11/04/[address] Elias at [facility]. It was recommend a repeat colonoscopy in 1 month. I left my phone number & extension - the patient will need an office visit appt. & [facility] paperwork complete again for a 12/02/23 surgery. * Telephone Encounter - SUDHEER Elizabeth - 11/05/2023 1:56 PM EDT I called Barry to get an appointment scheduled and repeat colonoscopy @ [facility] scheduled. Barry does not wish to do another colonoscopy. documented in this encounter Plan of Treatment Not on file documented as of this encounter Visit Diagnoses Not on filedocumented in this encounter Care Teams Press Setter Relationship Specialty Start Date End Date Joe Marc DO [address] [place] [address] PCP - General Family Medicine 09/21/23 documented as of this encounter
--- OUTSIDE RECORDS SUMMARY | 2025-03-01 20:06 | XMS_ITS | Encounter Summary ---
Author Organization [facility] Address [address] [place] [address] Phone Care Team Providers Care Director Customer Name Role Phone Joe Marc DO Primary Care Provider Joe Marc DO Primary Care Provider [phone] Encounter Details Date Type Department Care Team (Late st Contact Info) Description 11/25/2021 Orders Only [facility] [address] [place] [address] Conversion, Onbase Social History Tobacco Use Types Packs/Day Years Used Date Smoking Tobacco: Never Assessed Sex and Gender Information Value Date Recorded Sex Assigned at Not on file Legal Sex Male 6:18 AM EST Gender Identity Not on file Sexual Orientation Not on file documented as of this encounter Plan of Treatment Scheduled Orders Name Type Priority Associated Diagnoses Orde r Schedule OUTSIDE LAB SCAN Lab Ordered: 11/25/2021 documented as of this encounter Visit Diagnoses Not on filedocumented in this encounter Care Teams Director Customer Relationship Specialty Start Date End Date Joe Marc DO PCP - General 12/09/21 10/21/23 Joe Marc DO [address] [place] [address] PCP - General Family Medicine 10/22/23 documented as of this encounter
--- OUTSIDE RECORDS SUMMARY | 2025-03-01 20:06 | XMS_ITS | Clinical Summary ---
Demographics Address [address] [place] [address] Home Phone Email Address [email or web address] Preferred Language Icelandic Marital Status Anabaptism Affiliation Unknown Race White Ethnic Group Unknown Author Organization [employer] tem Address [id number] [address] [place] [address] Care Team Providers Care Assistant Cook Name Role Phone Joe Marc DO Primary Care Provider Allergies Active Allergy Reactions Criticality Noted Date [...] Insurance [employer] MEDICARE MEDICAID [place] Care Teams Assistant Cook Relationship Specialty Start Date End Date House, Joe P, DO [address] [place] [address] PCP - General Family Medicine 09/21/23
--- OUTSIDE RECORDS SUMMARY | 2025-03-01 20:07 | XMS_ITS | Clinical Summary ---
Demographics Address [address] [place] [address] Home Phone Email Address Preferred Language en Marital Status Yazidism Affiliation Unknown Race White Ethnic Group Not or Lati no Author Organization [facility] Address [address] [place] [address] Phone Care Team Providers Care Brake Lining Maker Name Role Phone Joe Marc DO Primary Care Provider [phone] Allergies Active Allergy Reactions Criticality Noted Date [...] at bedtime. 90 tablet 3 07/23/202 4 Active metoprolol succinate XL (Toprol-XL) 25 mg 24 hr tabletIndications:H ypertension, benign Take 1 tablet (25 mg) by mouth once daily. 90 tablet 3 4 Active valsartan (Diovan) 160 mg tabletIndications:H ypertension, benign Take 1 tablet (160 mg) by mouth once daily. 90 tablet 3 4 Active clopidogrel (Plavix) 75 mg tabletIndications:H istory of PTCA,NSTEMI, initial episode of care ([facility]) TAKE 1 TABLET BY MOUTH THURSDAY THROUGH THURSDAY 60 tablet 3 4 Active Active Problems Problem Noted Date Diagnosed Date BMI 32.0-32.9,adult 02/09/2024 History of myocardial infarction 02/09/2024 Cardiomyopathy, ischemic 02/09/2024 Pulmonary interstitial fibrosis ([facility]) 02/09/20 24 Former cigarette smoker 10/22/2023 GI bleed 10/22/2023 Cough 10/22/2023 HOPPER (dyspnea on exertion) 10/22/2023 Coronary artery disease invo lving [place] coronary artery of [place] heart without angina pectoris 05/25/2023 Echocardiogram abnormal 05/25/2023 Fatigue 05/25/2023 History of PTCA 05/25/2023 Hypertension, benign 05/25/2023 Mixed hyperlipidemia 05/25/2023 Resolved Problems Problem Noted Date Diagnosed Date Resolved Date NSTEMI, initial episode of care ([facility]) 05/25/2023 02/09/2024 Immunizations Immunization Administration Dates Next Due Influenza, Seasonal, Quadrivalent, Adjuvanted Moderna SARS-CoV-2 Vaccination 05/20/2021 Pfizer Hameed Cap SARS-CoV-2 01/17/2021,12/18/2020 Pfizer Purple Cap SARS-CoV-2 01/17/2021,12/19/19 21 Family [...] 02/09/2024 1:46 PM EDT Plan of Treatment Health Maintenance Due Date Last Done Comments CT Colonography 1955 Colonoscopy 1955 Colorectal Cancer Screening 1955 FIT-DNA (Cologuard) 1955 FIT 1955 Lipid Panel 1955 Medicare Annual Wellness Visit (AWV) 1955 Sigmoidoscopy 1955 MMR Vaccines (1 of 1 - Standard series) 1956 Diabetes Screening 1973 Hepatitis C Screening 1973 Pneumococcal Vaccine (1 of 2 - PCV) 1974 PSA Prostate Cancer Screening 2005 Zoster Vaccines (1 of 2) 2005 RSV High Risk: (Elderly (60+) or Population) (1 - Risk 60-74 years 1-dose series) 2015 COVID-19 Vaccine ( season) 2024 05/20/2021, 04/03/2021, 03/13/2021, Additional history exists Influenza Vaccine (#1) 2025 05/26/2023 DTaP/Tdap/Td Vaccines (2 - Tdap) 10/06/2031 10/05/2021 HIB Vaccines Aged Out No longer eligi ble based on patient's age to complete this topic HPV Vaccines Aged Out No longer eligi ble based on patient's age to complete this topic Hepatitis A Vaccines Aged Out No long [...] patient's age to complete this topic Insurance * Guarantor: Barry Schofield Account Type Relation to Patient Date of Phone Billing Address Personal/Family Self 1955 [address] [place] [address] MEDICAID DUAL COMPLETE * Guarantor: Barry Schofield Account Type Relation to Patient Date of Phone Billing Address Personal/Family Self 1955 [address] [place] [address] MEDICAID DUAL COMPLETE Care Teams Brake Lining Maker Relationship Specialty Start Date End Date Joe Marc DO [address] [phone] PCP - General Family Medicine 10/22/23
--- OUTSIDE RECORDS SUMMARY | 2025-03-01 20:07 | XMS_ITS | Encounter Summary ---
Demographics Address [address] [place] [address] Mobile Phone Home Phone Preferred Language en Marital Status Jewish Affiliation Unknown Race White Ethnic Group Unknown Author Organization [facility] Address [address] [place] [address] Care Team Providers Care Assembler Leather Goods Name Role Phone Unavailable Primary Care Provider Unavailabl e Reason for Visit * Reason Comments Med Refill Encounter Details Date Type Department Care Team (Late Contact Info) Description 01/21/2025 [facility]ill [facility] [address] [facility] [address] [place] [address] Yumiko De La Rosa PA [address] [facility] [address] [place] [address] Other seborrheic dermatitis Social History Tobacco Use Types Packs/Day Years [...] Care Team (Late st Contact Info) Description 05/09/2025 2:00 PM EDT Office Visit [facility] [place] [facility] [address] [place] [address] Inocencio Bo DO [address] [place] [address] documented as of this encounter Visit Diagnoses Diagnosis Other seborrheic dermatitis documented in this encounter
--- OUTSIDE RECORDS SUMMARY | 2025-03-01 20:07 | XMS_ITS | Clinical Summary ---
Author Organization [facility] Address [address] [place] [address] Care Team Providers Care Photoengraving Proofer Name Role Phone Unavailable Primary Care Provider Unavailabl e Allergies Active Allergy Reactions Criticality Noted Date Comments Aspirin GI bleeding 05/25/2023 Medications Ventolin HFA 108 (90 Base) MCG/ACT inhaler Inhale 2 puffs every 6 (six) hours if needed Active atorvastatin (Lipitor) 80 MG tablet Take 80 mg by mouth at bedtime 10/22/2023 Active benzonatate (Tessalon) 100 MG capsule 08/22/2023 Active Breztri Aerosphere 160-9-4.8 MCG/ACT aerosol Inhale 2 puffs in the morning and 2 puffs in the evening. 10/20/2023 Active gabapentin (Neurontin) 800 MG tablet Take 800 mg by mouth in the morning and 800 mg at noon and 800 mg in the evening. 07/06/2023 Active hydrOXYzine HCl (Atarax) 25 MG tablet 25 mg 11/09/2023 Active levoFLOXacin (Levaquin) 500 MG tablet 500 mg 08/27/2023 Active meloxicam (Mobic) 15 MG tablet Take 15 mg by mouth in the morning. 06/09/2023 Active metoprolol succinate XL (Toprol-XL) 50 MG 24 hr tablet Take 50 mg by mouth in the morning. 10/01/2023 Active naloxone (Narcan) 4 mg/0.1 mL nasal spray 10/15/2023 Active pantoprazole (ProtoNix) 40 MG EC tablet Take 40 mg by mouth Daily Active Sodium Sulfate-Mag Sulfate-KCl (Sutab) 2143-983-101 MG tablet 10/09/2023 Active tadalafil (Cialis) 20 MG tablet Take 20 mg by mouth Daily as needed Active traZODone (Desyrel) 50 MG tablet Take 50 mg by mouth at bedtime Active valsartan (Diovan) 160 MG tablet Take 160 mg by mouth in the morning. 10/22/2023 Active ketoconazole (NIZOral) 2 % shampoo 06/09/2023 Active nitroglycerin (Nitrostat) 0.4 MG SL tablet Active traMADol (Ultram) 50 MG tablet 50 mg 07/06/2023 Active meclizine (Antivert) 25 MG tablet Take 25 mg by mouth in the morning and 25 mg in the evening and 25 mg before bedtime. Active clopidogrel (Plavix) 75 MG tablet Take 75 mg by mouth Daily 10/21/2024 Active ciclopirox (Loprox) 0.77 % creamIndication s:Other seborrheic dermatitis APPLY THIN LAYER TO AFFECTED AREA ONCE A DAY FOR 30 DAYS 30 g 12/26/2024 Active Ciclopirox 1 % shampooIndicati ons:Other seborrheic dermatitis LATHER ON WET HAIR,LEAVE ON FOR 5 MINUTES,THEN RINSE 2 TO 3 TIMES PER WEEK FOR 30 DAYS 120 mL 12/26/2024 Active Active Problems No known active problems Encounters Date Type Department Care Team Description 02/07/2025 2:00 PM EDT Office Visit [facility] [address] [place] [address] Inocencio Bo DO Status post reverse arthroplasty of left shoulder (Primary Dx) 02/07/2025 11:10 AM EDT Ancillary Procedure [facility] [address] [facility] [place] [address] 02/07/2025 Travel 02/02/2025 1:30 PM EDT Treatment [facility] [address] [facility] [address] [place] [phone] Mc Alva PTA Localized osteoarthritis of left shoulder (Primary Dx); Status post reverse arthroplasty of left shoulder 02/02/2025 Bamboo flowsheet [facility] [address] [facility] [address] [place] [address] Mc Alva PTA 02/02/2025 Travel 01/30/2025 12:00 PM EDT Treatment [facility] [address] [place] [address] Callie Mckenzie, HOSPITALITY COORDINATOR Localized osteoarthritis of left shoulder (Primary Dx); Status post reverse arthroplasty of left shoulder 01/30/2025 Bamboo flowsheet [facility] [address] [place] [address] Callie Mckenzie, HOSPITALITY COORDINATOR 01/30/2025 Travel 01/26/2025 1:30 PM EDT Treatment [facility] [address] [place] [address] Lance Centeno, HOSPITALITY COORDINATOR Localized osteoarthritis of left shoulder (Primary Dx); Status post reverse arthroplasty of left shoulder 01/26/2025 Bamboo flowsheet [facility] [address] [place] [address] Lance Centeno, HOSPITALITY COORDINATOR 01/26/2025 Travel 01/21/2025 Refill [facility] [address] [place] [address] Yumiko De La Rosa PA Other seborrheic dermatitis 01/16/2025 1:30 PM EDT Treatment [facility] [address] [place] [address] Mc Alva, HOSPITALITY COORDINATOR Localized osteoarthritis of left shoulder (Primary Dx); Status post reverse arthroplasty of left shoulder 01/16/2025 Bamboo flowsheet [facility] [address] [place] [address] Mc Alva, HOSPITALITY COORDINATOR 01/16/2025 Travel 01/12/2025 1:30 PM EDT Treatment [facility] [address] [place] [address] Lance Centeno, HOSPITALITY COORDINATOR Localized osteoarthritis of left shoulder (Primary Dx); Status post reverse arthroplasty of left shoulder 01/12/2025 Bamboo flowsheet [facility] [address] [place] [address] Lance Centeno, HOSPITALITY COORDINATOR 01/12/2025 Travel 01/09/2025 1:30 PM EDT Treatment [facility] [address] [place] [address] Chana Mckenzieissa, HOSPITALITY COORDINATOR Localized osteoarthritis of left shoulder (Primary Dx); Status post reverse arthroplasty of left shoulder 01/09/2025 Bamboo flowsheet [facility] [address] [place] [address] Chana Mckenzieissa, HOSPITALITY COORDINATOR 01/09/2025 Travel 01/02/2025 1:30 PM EDT Treatment [facility] [address] [place] [address] Mc Alva, HOSPITALITY COORDINATOR Localized osteoarthritis of left shoulder (Primary Dx); Status post reverse arthroplasty of left shoulder 01/02/2025 Bamboo flowsheet [facility] [address] [place] [address] Mc Alva, HOSPITALITY COORDINATOR 01/02/2025 Travel 12/29/2024 1:30 PM EDT Treatment [facility] [address] [place] [address] Mc Alva, HOSPITALITY COORDINATOR Localized osteoarthritis of left shoulder (Primary Dx); Status post reverse arthroplasty of left shoulder 12/29/2024 Bamboo flowsheet [facility] [address] [place] [address] Mc Alva, HOSPITALITY COORDINATOR 12/29/2024 Travel 12/26/2024 1:30 PM EDT Treatment [facility] [address] [place] [address] Chana Mckenzieissa, HOSPITALITY COORDINATOR Localized osteoarthritis of left shoulder (Primary Dx); Status post reverse arthroplasty of left shoulder 12/26/2024 Bamboo flowsheet [facility] [address] [facility] [address] [place] [address] Callie Mckenzie, HOSPITALITY COORDINATOR 12/26/2024 Travel 12/25/2024 Refill [facility] [address] [place] [address] Yumiko De La Rosa PA Other seborrheic dermatitis 12/23/2024 1:30 PM EDT Treatment [facility] [address] [facility] [address] [place] [address] Mc Alva, HOSPITALITY COORDINATOR Localized osteoarthritis of left shoulder (Primary Dx); Status post reverse arthroplasty of left shoulder 12/23/2024 Bamboo flowsheet [facility] [address] [facility] [address] [place] [address] Mc Alva, HOSPITALITY COORDINATOR 12/23/2024 Travel 12/20/2024 1:30 PM EDT Treatment [facility] [address] [facility] [address] [place] [address] Margarita Andre, PT Localized osteoarthritis of left shoulder (Primary Dx); Status post reverse arthroplasty of left shoulder 12/20/2024 Bamboo flowsheet [facility] [address] [facility] [address] [place] [address] Margarita Andre, PT 12/20/2024 Travel 12/15/2024 1:30 PM EDT Treatment [facility] [address] [facility] [address] [place] [address] Margarita Andre, PT Localized osteoarthritis of left shoulder (Primary Dx); Status post reverse arthroplasty of left shoulder 12/15/2024 Travel 12/13/2024 1:30 PM EDT Treatment [facility] [address] [facility] [address] [place] [address] Margarita Andre, PT Localized osteoarthritis of left shoulder (Primary Dx); Status post reverse arthroplasty of left shoulder 12/13/2024 Bamboo flowsheet [facility] [address] [facility] [address] [place] [address] Margarita Andre, PT 12/13/2024 Travel 12/08/2024 1:30 PM EDT Treatment [facility] [address] [place] [address] Mc Alva, HOSPITALITY COORDINATOR Localized osteoarthritis of left shoulder (Primary Dx); Status post reverse arthroplasty of left shoulder 12/08/2024 Bamboo flowsheet [facility] [address] [place] [address] Mc Alva, HOSPITALITY COORDINATOR 12/08/2024 Travel 12/05/2024 1:00 PM EDT Treatment [facility] [address] [facility] [address] [place] [address] Lance Centeno, HOSPITALITY COORDINATOR Localized osteoarthritis of left shoulder (Primary Dx); Status post reverse arthroplasty of left shoulder 12/05/2024 Bamboo flowsheet [facility] [address] [facility] [address] [place] [address] Lance Centeno, HOSPITALITY COORDINATOR 12/05/2024 Travel 12/01/2024 2:30 PM EDT Evaluation [facility] [address] [facility] [address] [place] [address] Margarita Andre, PT Localized osteoarthritis of left shoulder (Primary Dx); Status post reverse arthroplasty of left shoulder 12/01/2024 Plan of Care Documentation [facility] [address] [facility] [address] [place] [address] 12/01/2024 Bamboo flowsheet [facility] [address] [facility] [address] [place] [address] Margarita Andre, PT 12/01/2024 Travel from Last 3 Months Social History Tobacco [...] - - Weight 108 kg (238 lb) 02/07/2025 2:06 PM EDT Height 182.9 cm (6') 02/07/2025 2:06 PM EDT Body Mass Index 32.28 02/07/2025 2:06 PM EDT Plan of Treatment Upcoming Encounters Date Type Department Care Team ([facility] st Contact Info) Description 05/09/2025 2:00 PM EDT Office Visit [facility] [place] [facility] [address] [place] [address] Inocencio Bo DO [address] [place] [address] Procedures Procedure Name Priority Date/Time Associated Diagnosis Comments XR SHOULDER 2+ VIEWS LEFT Routine 02/07/2025 11:10 AM EDT Status post reverse arthroplasty of left shoulder from Last 3 Months Results * XR shoulder 2+ views left (02/07/2025 11:10 AM EDT) Anatomical Region Laterality Modality Upper Extremities, Shoulder Left Radi ographic Imaging Narrative 02/13/2025 2:23 PM EDT Imaging Result: X-rays and imaging permanently saved to the patient's record were reviewed two view shoulder AP and Y saved to the permanent record in the [place] office shows stable position and alignment of the reverse arthroplasty. There is no sign of loosening or infection. No sign of heterotopic calcification. us Inocencio Bo DO IMG XR PROCEDURES Final Resu lt from Last 3 Months Insurance [employer] MEDICARE MEDICAID [place]
== END 2025-03-01 20:04 | disposition home or self-care (01) ==
PROVIDERS: PCP Family Medicine; Visit Provider Family Medicine
DX: G47.33 Obstructive sleep apnea (adult) (pediatric) (principal)
CPT/HCPCS: 95811

== ENCOUNTER 2025-05-19 12:03 | Outpatient (OUT) | payer MEDICARE, MEDICAID, SELFPAY ==
--- OUTSIDE RECORDS SUMMARY | 2025-05-09 11:20 | XMS_ITS | Encounter Summary ---
Demographics Address [address] [place] [address] Mobile Phone Home Phone Preferred Language en Marital Status Restorationism Affiliation Unknown Race White Ethnic Group Unknown Author Organization [facility] Address [address] [place] [address] Care Team Providers Care Historian Dramatic Arts Name Role Phone Unavailable Primary Care Provider Unavailabl e Encounter Details DateTypeDepartmentCare Team (Latest Contact Info)Pdjrikgagsz82/21/2025 11:20 AM EDTAncillary Procedure [facility] [address] [place] [address] Social History Tobacco UseTypesPacks/DayYears UsedDateSmoking Tobacco: NeverSmokeless Tobacco: NeverAlcohol UseStandard Drinks/WeekCommentsNever0 (1 standard drink = 0.6 oz pure alcohol)Sex and Gender InformationValueDate RecordedSex Assigned at Not on fileLegal HrePqol2610/01/2022 6:56 PM EDTGender IdentityNot on fileSexual OrientationNot on filedocumented as of this encounter Plan of Treatment DateTypeDepartmentCare Team (Latest Contact Info)Tzulhtrcrvd98/07/2026 1:00 PM EDTOffice Visit [facility] [address] [place] [address] Inocencio Bo DO [address] [place], [place] [address] documented as of this encounter Procedures Procedure NamePriorityDate/TimeAssociated DiagnosisCommentsXR SHOULDER 2+ VIEWS LZDKXrjrjew64/21/2025 11:19 AM EDT S/P reverse total shoulder arthroplasty, left documented in this encounter Results * XR shoulder 2+ views left (05/09/2025 11:19 AM EDT)Anatomical RegionLaterality ModalityUpper Extremities, ShoulderLeftRadiographic ImagingSpecimen (Source) Anatomical Location / LateralityCollection Method / VolumeCollection Time Received Time Narrative 05/09/2025 4:20 PM EDT Imaging Result: ??Multiple view x-rays of the right shoulder shows stable position and alignment of the reverse arthroplasty prosthesis. ??There was no sign of infection, loosening, dislocation, fracture, tumor. ??No heterotrophic calcification. Authorizing ProviderResult TypeResult StatusMicwoody Bo [facility] XR PROCEDURES Final Result documented in this encounter Visit Diagnoses Not on filedocumented in this encounter
--- OUTSIDE RECORDS SUMMARY | 2025-05-09 14:00 | XMS_ITS | Encounter Summary ---
Demographics Address [address] [place] [address] Mobile Phone Home Phone Preferred Language en Marital Status Alevism Affiliation Unknown Race White Ethnic Group Unknown Author Organization [facility] Address [address] [place] [address] Care Team Providers Care Cryptologic Technician Technical Name Role Phone Unavailable Primary Care Provider Unavailabl e Reason for Visit * ReasonCommentsPost-op Encounter Details DateTypeDepartmentCare Team (Latest Contact Info)Muodocxvqit85/21/2025 2:00 PM EDTOffice Visit [facility] [address] [place] [phone] Inocencio Bo DO [address] [place] [address] S/P reverse total shoulder arthroplasty, left (Primary Dx) Social History Tobacco UseTypesPacks/DayYears UsedDateSmoking Tobacco: NeverSmokeless Tobacco: NeverAlcohol UseStandard Drinks/WeekCommentsNever0 (1 standard drink = 0.6 oz pure alcohol)Sex and Gender InformationValueDate RecordedSex Assigned at Not on fileLegal HemDdty0310/01/2022 6:56 PM EDTGender IdentityNot on fileSexual OrientationNot on filedocumented as of this encounter Last Filed Vital Signs Vital SignReadingTime TakenCommentsBlood Pressure--Pulse--Temperature-- Respiratory Rate--Oxygen Saturation--Inhaled Oxygen Concentration--Maiowh502 kg (238 lb)05/09/2025 1:25 PM JEOIouxce317.9 cm (6')05/09/2025 1:25 PM EDTBody Mass Index32.281 1:25 PM EDTdocumented in this encounter Progress Notes * JAMSHID Villasenor - 05/09/2025 2:00 PM EDT GENERAL HISTORY AND PHYSICAL: NAME: Barry Schofield : 1955 HISTORY OF PRESENT ILLNESS: Barry Schofield is an 69 y.o. male who presents for follow up of left reverse total shoulder arthroplasty that was performed on October 24, [address] Bo. He is 6 months post op. Patient states thatoverall pain has resolved, he has no nighttime disruption at this time. He notes a little bit of stiffness as well as weakness when he wakes up in the morning until he gets moving. Patient is happy with the progress made so far. He is done with physical therapy. Patient continues to do his at-home exercise program, he stays as active as possible. Patient denies any numbness or tingling, no fever or chills. No falls or trauma reported. Patient states that overall he is doing pretty well PAST MEDICAL HISTORY: Medical History[1] PAST SURGICAL HISTORY: Surgical History[2] ALLERGIES: Allergies[3] MEDICATIONS: Current Outpatient Medications Medication Instructions albuterol (2.5 MG/3ML) 0.083% nebulizer solution INHALE 1 VIAL VIA NEBULIZER EVERY 6 HOURS NEEDED FOR SHORTNESS OF BREATH OR WHEEZING atorvastatin (LIPITOR) 80 mg, Nightly benzonatate (Tessalon) 100 MG capsule [facility] [employer] [facility] [employer] 160-9-4.8 MCG/ACT aerosol 2 puffs, 2 times [...] succinate XL (TOPROL-XL) 50 mg, Daily RT metoprolol succinate XL (TOPROL-XL) 25 mg, Daily naloxone (Narcan) 4 mg/0.1 mL nasal spray nitroglycerin (Nitrostat) 0.4 MG SL tablet pantoprazole (PROTONIX) 40 mg, Daily Sodium Sulfate-Mag Sulfate-KCl (Sutab) 2026-764-507 MG tablet tadalafil (CIALIS) 20 mg, Daily PRN traMADol (ULTRAM) 50 mg traZODone (DESYREL) 50 mg, Nightly valsartan (DIOVAN) 160 mg, Daily RT Ventolin HFA 108 (90 Base) MCG/ACT inhaler 2 puffs, Every 6 hours PRN REVIEW OF SYSTEMS: Review of Systems Negative unless otherwise noted Vitals: Body mass index is 32.28 kg/m??. PHYSICAL EXAM: Physical Exam Patient is alert and oriented, vital signs stable. On visual examination incision is clean, dry, intact. There was no overlying rash, erythema, signs of infection. Range motion continues to show improvement. Patient is still somewhat limited in internal/external rotation. Abduction and forward flexion show very mild weakness but overall is improving. There was no pain or instability component. Passive range motion is intact without adhesive component. Patient neurovascular intact distally, distal pulses strong. RECENT TESTING: Orders Placed This Encounter Procedures XR shoulder 2+ views left Reason for exam:: f/u ASSESSMENT: ICD-10-CM 1. S/P reverse total shoulder arthroplasty, left Z96.612 XR shoulder 2+ views left PLAN: Patient's physical exam findings as well as x-rays were discussed at length with the patient. Patient will continue to follow home exercise program as well as continuing to improve his ADLs. Follow up will be in October at his 1 year postop. Patient is overall doing very well and is at benchmark for all shoulder movements as well as strength. Patient will see gradual improvement over the next few months especially with continuance of home exercise program. Patient reassured that he is within normal limits for postop at this time. Patient educated to continue wall walking, jim exercises, homeexercise program. All patient's questions thoroughly answered, patient agreeable to plan, patient vo iced verbal understanding. Follow up will be in October of next year [1] Past Medical History: Diagnosis Date Pulmonary fibrosis (HCC) [2] Past Surgical History: Procedure Laterality Date APPENDECTOMY 1967 CAROTID STENT 2022 x 3 SHOULDER SURGERY Right MTP TOTAL SHOULDER ARTHROPLASTY Left 10/24/2024 MTP [3] Allergies Allergen Reactions Aspirin GI bleeding Cosigned by Inocencio Bo DO at 05/09/2025 4:57 PM EDT documented in this encounter Plan of Treatment DateTypeDepartmentCare Team (Latest Contact Info)Tdprowmpzpx62/07/2026 1:00 PM EDTOffice Visit [facility] [address] [place] [address] Inocencio Bo DO [address] [place] [address] documented as of this encounter Procedures Procedure NamePriorityDate/TimeAssociated DiagnosisCommentsXR SHOULDER 2+ VIEWS GABOCwwzori97/21/2025 11:19 AM EDT S/P reverse total shoulder [...] heterotrophic calcification. Authorizing ProviderResult TypeResult StatusMicwoody Bo DOIMG XR PROCEDURES Final Result documented in this encounter Visit Diagnoses Diagnosis S/P reverse total shoulder arthroplasty, left- Primary documented in this encounter
--- OUTSIDE RECORDS SUMMARY | 2025-05-19 12:10 | XMS_ITS | Clinical Summary ---
Demographics Address [address] [place] [address] Home Phone Email Address Preferred Language Luxembourgish Marital Status Sikhism Affiliation Unknown Race White Ethnic Group Unknown Author Organization [employer] tem Address [id number] [address] [place] [address] Care Team Providers Care Resourcing Advisor Name Role Phone Joe Marc DO Primary Care Provider [phone] Allergies Active AllergyReactionsCriticalityNoted DateCommentsAspirinGI Zhjrngjb02/06/2023 Medications MedicationSigDispense QuantityRefillsLast FilledStart DateEnd DateStatus albuterol (PROVENTIL HFA;VENTOLIN HFA) 90 mcg/actuation inhaler Inhale 2 puffs every 6 (six) hours as needed for shortness of breath.Active atorvastatin (LIPITOR) 80 mg tablet Take 1 tablet (80 mg total) by mouth in the morning.Active clopidogreL (PLAVIX) 75 mg tablet Take 1 tablet (75 mg total) by mouth in the morning.Active gabapentin (NEURONTIN) 800 mg tablet Take 1 tablet (800 mg total) by mouth 3 (three) times a day. Take 1 and 1/2 tablets by mouth 3 times daily for 30 days10/03/2023ctive ketoconazole (NIZORAL) 2 % shampoo Apply 1 Application topically 2 (two) times a week.10/07/2023ctive meloxicam (MOBIC) 15 mg tablet Take 1 tablet (15 mg total) by mouth in the morning.Active metoprolol succinate XL (TOPROL XL) 50 mg 24 hr tablet Take 1 tablet (50 mg total) by mouth in the morning.10/01/2023ctive nitroglycerin (NITROSTAT) 0.[address] 1 tablet (0.4 mg total) under the tongue every 5 (five) minutes as needed for chest pain.Active pantoprazole (PROTONIX) 40 mg EC tablet Take 1 tablet (40 mg total) by mouth every morning before breakfast.09/23/2023 Active traMADoL (ULTRAM) 50 mg tablet Take 1 tablet (50 mg total) by mouth 2 (two) times a day as needed for pain. Active traZODone (DESYREL) 50 mg tablet Take 1 tablet (50 mg total) by mouth in the morning.Active valsartan (DIOVAN) 160 mg tablet Take 1 tablet (160 mg total) by mouth daily as needed.Active sod sulf-pot chloride-mag sulf 1.479-0.188- 0.225 gram tablet Indications:Positive colorectal cancer screening using Cologuard testPlease see instructional sheet given by physicians office. 24 tablet 10/09/2023ctive sucralfate (CARAFATE) 1 gram tablet Take 1 tablet (1 g total) by mouth in the morning and 1 tablet (1 g total) at noon and 1 tablet (1 g total) in the evening and 1 tablet (1 g total) before bedtime. 120 tablet ctive Active Problems No known active problems Family History Medical HistoryRelationNameCommentsArthritisFatherHypertensionFatherArthritis MotherHypertensionMotherThyroid diseaseMotherRelationNameStatusCommentsFather DeceasedMotherDeceased Social History Tobacco UseTypesPacks/DayYears UsedDateSmoking Tobacco: FormerCigarettes Smokeless Tobacco: Never Tobacco Cessation:Counseling Given: Not Answered Comments:Smoked for a short time as a teenager Alcohol UseStandard Drinks/WeekCommentsNot Currently0 (1 standard drink = 0.6 oz pure alcohol)ChildcareAnswerDate ThsvvpipRxotxuszuYkeuuns13/12/2019Employment AnswerDate BqlrewddUjowsrwrdzMdwiaum87/12/2019Hunger ScreeningAnswerDate RecordedWithin the past 12 months we worried whether our food would run out before we got money to buy more.Never True10/09/2023Food Insecurity - Inability Not on file10/09/2023Sex and Gender InformationValueDate RecordedSex Assigned at BirthNot on fileLegal TliLgcg3502/22/2015 11:54 AM EDTGender IdentityNot on file Sexual OrientationNot on file Last Filed Vital Signs Vital SignReadingTime TakenCommentsBlood Fxvamsfv041/55010/09/2023 12:50 PM EDT Dnhcn667510/09/2023 12:50 PM EDTTemperature--Respiratory Rate--Oxygen Saturation-- Inhaled Oxygen Concentration--Blijrx568.7 kg (257 lb 3.2 oz)10/09/2023 12:50 PM LKVKydgoo912.9 cm (6')10/09/2023 12:50 PM EDTBody Mass Index34.8810/09/2023 12:50 PM EDT Plan of Treatment Health MaintenanceDue DateLast DoneCommentsDepression Yuixthugw14/31/1968Zoster (Shingles) Vaccine (1 of 2)2005bdominal Aortic Aneurysm (AAA) Screen 2020Fall Risk Oitpsyfsk39/31/2021dult BMI Hzalyvwdm04 Tobacco Sccncvaws98OVID-19 Vaccine ( season) /07/2020, 04/03/2021, 03/13/2021, Additional history existsInfluenza Mmwmaxk72/3DTaP,Tdap and Td Vaccines (2 - Tdap)10/06/2031 10/05/2021 Medical Devices Not on file Insurance * Guarantor: Barry Schofield TypeRelation to PatientDate of BirthPhone Billing AddressPersonal/DksuqeHmgg92/31/1956 [address] [place] [address] Care Teams Team MemberRelationshipSpecialtyStart DateEnd Date Joe Marc DO [address] [place] [address] [facility]/21/[facility]
--- OUTSIDE RECORDS SUMMARY | 2025-05-19 12:10 | XMS_ITS | Encounter Summary ---
Author Organization [facility] Address [address] [place] [address] Care Team Providers Care Lathe Set Up Person Name Role Phone Unavailable Primary Care Provider Unavailabl e Encounter Details DateTypeDepartmentCare Team (Latest Contact Info)Jcicukyhhml03/21/2025Travel Social History Tobacco UseTypesPacks/DayYears UsedDateSmoking Tobacco: NeverSmokeless Tobacco: NeverAlcohol UseStandard Drinks/WeekCommentsNever0 (1 standard drink = 0.6 oz pure alcohol)Sex and Gender InformationValueDate RecordedSex Assigned at Not on fileLegal AuqZvef6610/01/2022 6:56 PM EDTGender IdentityNot on fileSexual OrientationNot on filedocumented as of this encounter Plan of Treatment DateTypeDepartmentCare Team (Latest Contact Info)Ehyddnvdifc36/07/2026 1:00 PM EDTOffice Visit [facility] [address] [phone] Inocencio Bo, DO [address] [place] [address] documented as of this encounter Visit Diagnoses Not on filedocumented in this encounter
--- OUTSIDE RECORDS SUMMARY | 2025-05-19 12:11 | XMS_ITS | Clinical Summary ---
Demographics Address [address] [place] [address] Mobile Phone Home Phone Preferred Language en Marital Status Zoroastrianism Affiliation Unknown Race White Ethnic Group Unknown Author Organization [facility] Address [address] [place] [address] Care Team Providers Care Certified Personal Finance Counselor Name Role Phone Unavailable Primary Care Provider Unavailabl e Allergies Active AllergyReactionsCriticalityNoted DateCommentsAspirinGI dbepnpwu19/06/2023 Medications MedicationSigDispense QuantityRefillsLast FilledStart DateEnd DateStatus Ventolin HFA 108 (90 Base) MCG/ACT inhaler Inhale 2 puffs every 6 (six) hours if neededActive atorvastatin (Lipitor) 80 MG tablet Take 80 mg by mouth at stmtzxk5810/22/2023ctive benzonatate (Tessalon) 100 MG capsule 08/22/2023ctive Breztri Aerosphere 160-9-4.8 MCG/ACT aerosol Inhale 2 puffs in the morning and 2 puffs in the evening.10/20/2023ctive gabapentin (Neurontin) 800 MG tablet Take 800 mg by mouth in the morning and 800 mg at noon and 800 mg in the evening.07/06/2023ctive hydrOXYzine HCl (Atarax) 25 MG tablet 25 mg11/09/2023ctive levoFLOXacin (Levaquin) 500 MG tablet 500 mg08/27/2023ctive meloxicam (Mobic) 15 MG tablet Take 15 mg by mouth in the morning.06/09/2023ctive metoprolol succinate XL (Toprol-XL) 50 MG 24 hr tablet Take 50 mg by mouth in the morning.10/01/2023ctive naloxone (Narcan) 4 mg/0.1 mL nasal spray 10/15/2023ctive pantoprazole (ProtoNix) 40 MG EC tablet Take 40 mg by mouth DailyActive Sodium Sulfate-Mag Sulfate-KCl (Sutab) 0996-973-724 MG tablet 10/09/2023ctive tadalafil (Cialis) 20 MG tablet Take 20 mg by mouth Daily as neededActive traZODone (Desyrel) 50 MG tablet Take 50 mg by mouth at bedtimeActive valsartan (Diovan) 160 MG tablet Take 160 mg by mouth in the morning.10/22/2023ctive ketoconazole (NIZOral) 2 % shampoo 06/09/2023ctive nitroglycerin (Nitrostat) 0.4 MG SL tablet Active traMADol (Ultram) 50 MG tablet 50 mg07/06/2023ctive meclizine (Antivert) 25 MG tablet Take 25 mg by mouth in the morning and 25 mg in the evening and 25 mg before bedtime.Active clopidogrel (Plavix) 75 MG tablet Take 75 mg by mouth Daily10/21/2024tive ciclopirox (Loprox) 0.77 % cream Indications:Other seborrheic dermatitisAPPLY THIN LAYER TO AFFECTED AREA ONCE A DAY FOR 30 DAYS 30 g 12/26/2024tive Ciclopirox 1 % shampoo Indications:Other seborrheic dermatitisLATHER ON WET HAIR,LEAVE ON FOR 5 MINUTES,THEN RINSE 2 TO 3 TIMES PER WEEK FOR 30 DAYS 120 mL 12/26/2024tive metoprolol succinate XL (Toprol-XL) 25 MG 24 hr tablet Take 25 mg by mouth Daily05/02/2025tive albuterol (2.5 MG/3ML) 0.083% nebulizer solution INHALE 1 VIAL VIA NEBULIZER EVERY 6 HOURS NEEDED FOR SHORTNESS OF BREATH OR EFWGFETN91/25/2024ctive Active Problems No known active problems Encounters DateTypeDepartmentCare AbwbJnaabrsuovq20/21/2025 2:00 PM EDTOffice Visit [facility] [address] [place] [address] Inocencio Bo DO S/P reverse total shoulder arthroplasty, left (Primary Dx)05/09/2025 11:20 AM EDTAncillary Procedure [facility] [address] [place] [address] 05/09/2025Travelfrom Last 3 Months Social History Tobacco UseTypesPacks/DayYears UsedDateSmoking Tobacco: NeverSmokeless Tobacco: Never Tobacco Cessation:Counseling Given: Not Answered Alcohol UseStandard Drinks/WeekCommentsNever0 (1 standard drink = 0.6 oz pure alcohol)Sex and Gender InformationValueDate RecordedSex Assigned at BirthNot on fileLegal OfdXchj4710/01/2022 6:56 PM EDTGender IdentityNot on fileSexual OrientationNot on file Last Filed Vital Signs Vital SignReadingTime TakenCommentsBlood Nqxbjaro313/7007/01/2018 12:00 PM EST Pulse--Temperature--Respiratory Rate--Oxygen Saturation--Inhaled Oxygen Concentration--Zikdvu983 kg (238 lb)05/09/2025 1:25 PM ZDUCermib425.9 cm (6') 05/09/2025 1:25 PM EDTBody Mass Index32.281 1:25 PM EDT Plan of Treatment DateTypeDepartmentCare Team (Latest Contact Info)Xzlnvlqcxdt81/07/2026 1:00 PM EDTOffice Visit [facility] [address] [facility] [place] [address] Inocencio Bo, DO [address] [place] [address] Procedures Procedure NamePriorityDate/TimeAssociated DiagnosisCommentsXR SHOULDER 2+ VIEWS CZYEFtiskxl05/21/2025 11:19 AM EDT S/P reverse total shoulder arthroplasty, left from Last 3 Months Results * XR [...] heterotrophic calcification. Authorizing ProviderResult TypeResult StatusMicwoody Bo DOI XR PROCEDURES Final Result from Last 3 Months Insurance
--- OUTSIDE RECORDS SUMMARY | 2025-05-19 12:11 | XMS_ITS | Clinical Summary ---
Demographics Address [address] [place] [address] Home Phone Email Address Preferred Language en Marital Status Adventist Affiliation Unknown Race White Ethnic Group Not or Lati no Author Organization [facility] Address [address] [place] [address] Phone Care Team Providers Care Polisher Hand Name Role Phone Joe Marc DO Primary Care Provider [phone] Allergies Active AllergyReactionsCriticalityNoted DateCommentsAspirinGI ecitpqon90/06/2023 Medications MedicationSigDispense QuantityRefillsLast FilledStart DateEnd DateStatus albuterol 90 mcg/actuation inhaler Inhale 2 puffs every 4 hours if needed.Active meloxicam (Mobic) 15 mg tablet Take 1 tablet (15 mg) by mouth once daily.Active traMADol (Ultram) 50 mg tablet Take 1 tablet (50 mg) by mouth 2 times a day as needed.Active traZODone (Desyrel) 50 mg tablet Take 1 tablet (50 mg) by mouth once daily at bedtime.Active Breztri Aerosphere 160-9-4.8 mcg/actuation HFA aerosol inhaler Inhale 2 puffs 2 times a day.10/20/2023ctive nitroglycerin (Nitrostat) 0.4 mg SL tablet Indications:History of PTCA,NSTEMI, initial episode of care (Multi)Place 1 tablet (0.4 mg) under the tongue every 5 minutes if needed for chest pain (Report to the ERor call 911 after third dose.) for up to 15 days. 90 tablet ctive gabapentin (Neurontin) 800 mg tablet Take 1 tablet (800 mg) by mouth 3 times a day.Active atorvastatin (Lipitor) 80 mg tablet Indications:Coronary artery disease involving pechanga coronary artery of pechanga heart without angina pectoris,History of PTCA,Mixed hyperlipidemiaTake 1 tablet (80 mg) by mouth once daily at bedtime. 90 tablet /ctive clopidogrel (Plavix) 75 mg tablet Indications:History of PTCATake 1 tablet (75 mg) by mouth once daily. 90 tablet /ctive metoprolol succinate XL (Toprol-XL) 25 mg 24 hr tablet Indications:Hypertension, benignTake 1 tablet (25 mg) by mouth once daily. 90 tablet ctive valsartan (Diovan) 160 mg tablet Indications:Hypertension, benignTake 1 tablet (160 mg) by mouth once daily. 90 tablet ctive tadalafil 20 mg tablet Take 1 tablet (20 mg) by mouth once daily as needed.05/04/2025Discontinued (Therapy completed) atorvastatin (Lipitor) 80 mg tablet Indications:Mixed hyperlipidemiaTake 1 tablet (80 mg) by mouth once daily at bedtime. 90 tablet Discontinued(Reorder) metoprolol succinate XL (Toprol-XL) 25 mg 24 hr tablet Indications:Hypertension, benignTake 1 tablet (25 mg) by mouth once daily. 90 tablet /Discontinued valsartan (Diovan) 160 mg tablet Indications:Hypertension, benignTake 1 tablet (160 mg) by mouth once daily. 90 tablet Discontinued(Reorder) clopidogrel (Plavix) 75 mg tablet Indications:History of PTCA,NSTEMI, initial episode of care (Multi)TAKE 1 TABLET BY MOUTH THURSDAY THROUGH THURSDAY 60 tablet Discontinued(Reorder) metoprolol succinate XL (Toprol-XL) 25 mg 24 hr tablet Indications:Hypertension, benignTAKE 1 TABLET BY MOUTH EVERY DAY 90 tablet Discontinued(Reorder) Active Problems ProblemNoted DateDiagnosed DateBMI 31.0-31.9,adult02/09/2024History of myocardial clcgilrrhr05/23/2024ardiomyopathy, vausejcs02/23/2024ulmonary interstitial /23/2024Former cigarette ollciz38/04/2024GI bleed 10/22/20231920Riyxh11/04/2024OE (dyspnea on exertion)10/22/2023oronary artery disease involving pechanga coronary artery of pechanga heart without angina pectoris 05/25/2023Echocardiogram niyetpvd55/06/2823Sbmtwps79/06/2023History of PTCA 05/25/2023Hypertension, dvadaq0705/25/2023Mixed cntdvwyykfxeud46/06/2023NSTEMI, initial episode of care05/25/2023 Encounters DateTypeDepartmentCare WnjfJupvmpdnrbt08/16/2025 2:20 PM EDTOffice Visit [facility] [address] [place] [address] [address] [place] [address] Addy Fuller, Coronary artery disease involving pechanga coronary artery of pechanga heart without angina pectoris; History of PTCA; Pulmonary interstitial fibrosis (Multi); Former cigarette smoker; Mixed hyperlipidemia; Hypertension, benign; BMI 31.0-31.9,adult Discharge Disposition: Home05/04/20254131Tlwhoz91/13/2025Refill [facility] [address] [place] [address] [address] [place] [address] Addy Fuller DO Hypertension, benignfrom Last 3 Months Immunizations ImmunizationAdministration DatesNext DueInfluenza, Seasonal, Quadrivalent, Fmbexerjis91/07/2023Moderna SARS-CoV-2 Wkmfqvfpdkf82/01/2021Pfizer Hameed Cap BAXP-PcA-598/01/2021,1Pfizer Purple Cap LAPX-PxO-758/01/2021,12/18/2020 Family History Medical HistoryRelationNameCommentsHypertensionFatherHeart failureMother HypertensionMotherRelationNameStatusCommentsFatherMother Social History Tobacco UseTypesPacks/DayYears UsedDateSmoking Tobacco: FormerCigarettes Smokeless Tobacco: Never Tobacco Cessation:Counseling Given: Not Answered Alcohol UseStandard Drinks/WeekCommentsNever0 (1 standard drink = 0.6 oz pure alcohol)Sex and Gender InformationValueDate RecordedSex Assigned at BirthNot on fileLegal HsrUeoe10/26/2022 6:18 AM ESTGender IdentityNot on fileSexual OrientationNot on file Last Filed Vital Signs Vital SignReadingTime TakenCommentsBlood Drvkgyvf962/6005/04/2025 2:22 PM EDT Ltcnc325005/04/2025 2:22 PM EDTTemperature--Respiratory Rate--Oxygen Saturation-- Inhaled Oxygen Concentration--Mivxej065 kg (234 lb)05/04/2025 2:22 PM EDTHeight 182.9 cm (6')05/04/2025 2:22 PM EDTBody Mass Index31.7405/04/2025 2:22 PM EDT Plan of Treatment DateTypeDepartmentCare Team (Latest Contact Info)Iuhssnwffzu27/07/2026 1:30 PM EDTOffice Visit [facility] [address] [facility] [address] [place] [address] Lisa Andrews, MEDICAL CASH POSTER-TRANSPORTATION PROJECT MANAGER [address] [facility] [address] [place] [address] Health MaintenanceDue DateLast DoneCommentsCT Mqwofelmacnw19/31/1956olonoscopy 1955olorectal Cancer Oyqjexdog54/31/1956FIT-DNA (Cologuard)1955FIT 1955Lipid Panel1955Medicare Annual Wellness Visit (AWV)1955 Yfdcvlnopjscj37/31/1956MMR Vaccines (1 of 1 - Standard series)1956Diabetes Hnhuzxxbj26/31/1974Hepatitis C Eorqrnfvz22/31/1974Pneumococcal Vaccine (1 of 2 - PCV)1974PSA Prostate Cancer Ymgcqbvhy33/31/2006RSV High Risk: (Elderly (60+) or Population) (1 - Risk 50-74 years 1-dose series)2005 Zoster Vaccines (1 of 2)2005bdominal Aortic Aneurysm (AAA) Screening 2020Influenza Vaccine (#1)/OVID-19 Vaccine ( season)/07/2020, 01/17/2021, 01/17/2021, Additional history existsDTaP/Tdap/Td Vaccines (2 - Tdap)/HIB VaccinesAged OutNo longer eligible based on patient's age to complete this topicHPV VaccinesAged OutNo longer eligible based on patient's age to complete this topicHepatitis A VaccinesAged OutNo longer eligible based on patient's age to complete this topic Hepatitis B VaccinesAged OutNo longer eligible based on patient's age to complete this topicIPV VaccinesAged OutNo longer eligible based on patient's age to complete this topicMeningococcal VaccineAged OutNo longer eligible based on patient's age to complete this topicRotavirus VaccinesAged OutNo longer eligible based on patient's age to complete this topic Insurance * Guarantor: Philippe Schofield TypeRelation to PatientDate of BirthPhone Billing AddressPersonal/YcokkoOgdq26/31/1956 [address] [place] [address] * Guarantor: Philippe Schofield TypeRelation to PatientDate of BirthPhone Billing AddressPersonal/AjqtvuJawa95/31/1956 [address] [place] [address] Care Teams Team MemberRelationshipSpecialtyStart [place] [address] [place] [id number] PCP - GeneralFamily Medicine10/22/23
--- OUTSIDE RECORDS SUMMARY | 2025-05-19 12:13 | XMS_ITS | CCD ---
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 77-05-8929CcmbzigoGrlxylgvkuc chest pain (4 sources)Chest pain, unspecified; Translations: [CHEST PAIN UNSPECIFIED]Onset: 46-40-9716HjeixccnHuhh wounds of extremities (4 sources)Laceration without foreign body of left index finger without damage to nail, initial encounter; Translations: [Laceration of flexor muscle, fascia and tendon of left index finger at wrist and hand level, initial encounter] Onset: 53-46-8649JxkuhnzzAfwgf gastrointestinal disorders (2 sources)Stool DNA-based colorectal cancer screening positive; Translations: [Other fecal abnormalities]52-26-2308PwslwbyoXfrnw gastrointestinal disorders (1 source)Loose stool; Translations: [Other fecal abnormalities]10-09-2023 EpisodicOther lower respiratory disease (9 sources)Cough; Translations: [Other cough]Onset: 171858-27-9461Zgtjmqrv Other lower respiratory disease (9 sources)Dyspnea on exertion; Translations: [Other forms of dyspnea]Onset: 587152-98-2329XvetwwmnIokxc screening for suspected conditions (not mental disorders or infectious disease) (16 sources)Echocardiogram abnormal; Translations: [Nonspecific (abnormal) findings on radiological and other examination of other intrathoracic organs] Onset: 337673-63-9909ShinkqotSxjjyqsienjh (1 source)COUGH, UNSPECIFIED; Translations: [COUGH, UNSPECIFIED]Onset: 89-22-9157Wtitkerithqp (7 sources)Onset: 10-22-2023 Resolved: 243841-18-6433Knuesyryskue (1 source)Other specified cough; Translations: [Other specified cough]Onset: 53-49-4791Ddjby infection (1 source)COVID-19Onset: 08-08-2021 Resolved: 08-08-2021 Results Test NameValueInterpretationReference RangeFacilityXR Shoulder - left 2 Viewson 99-02-1581Aqvvujo Result: Multiple view x-rays of the right shoulder shows stable position and alignment of the reverse arthroplasty prosthesis. There was no sign of infection, loosening, dislocation, fracture, tumor. No heterotrophic calcification. [facility] (narrative)[facility] HealthcareOutside Recordson 03-36-7230Dajpxwo Records [id number]#1.00[facility] Controlled Substances Agreementson 19-88-5506Lcsqspuqph Substances Agreements [id number]#1.00[facility] Sleep Studyon 34-14-7763Zmizd Study [id number]#1.00[facility] Outside Recordson 64-59-5654Fikgatn Records [id number]#1.00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 PREOPERATIVE DIAGNOSES: 1. Left [...] He has had cortisone injections. 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 Preoperative CT scan is reviewed. All questions were answered preoperatively. Consent form signed and witnessed. Intraoperative CT scan and x-rays are utilized for planning and intraoperative use. Sites marked. Antibiotics provided weight based per protocol. Allquestions were answered. PROCEDURE: Barry was taken to the Operating Room and placed in supine position. Anesthesia was provided. He was placed on the beach-chair table. Shoulder was examined with moderate to severe stiffness. Shoulder was prepped and draped in sterile fashion. A time-out procedure occurred consistent withthe consent form, History and Physical, preoperative marked [...] was made taking off the appropriate resection, andprotective baseplate was provided. Attention was then directed [...] full-wedge metaglene positioned at the 11:30 and 5:30positions was appropriately positioned and tensioned with a 40 mm standard central screw. Peripheral screws were placed with good purchase. After copious irrigation the 39 standard glenosphere was sea jorge, screwed, tightened, impacted, and re-screwed with good purchase and tension. The proximal humerus was then delivered anteriorly. This was sized for a 3. Reaming and broached were performed with trial components with good position and alignment with a neutral polyethylene, stable conjoint tendon as well as deltoid tension, stable arc of motion. After copious irrigation the three standard short Perform humeral Ernestine Tornier stem was impacted. The recipient polyethylene [...] Satisfactory Sander Cardoza D.O. ca Dictated: 10/24/2024 [id number] Transcribed: 10/24/2024 cc:Joe Maddox D.O.[facility] HospitalComment on above:Result Comment: Electronically Signed By: Sander Cardoza DO\.br\Date and Time Signed: 10/28/24 07:56 EDTLab - Other Lab Resultson [id number] - Other Lab [id number]#1.00OTGTIFFProMedica Flower Hospitalurgical Pathology Reporton 31-90-7498Hvwjrxta Pathology Report[address] [place] [address]- Surgical Pathology Report Collected Date/Time: 10/24/2024 09:54 [...] 5 x 4 x 1 cm. A personnel representative portion is submitted in a total of two cassettes: 1 - Soft tissue 2 - Bone after decalcification (DC) DC:[facility] Microscopic Description Microscopic examination performed unless gross only specified. This report was transcribed using voice recognition technology and might contain unintended computerized collision mechanic errors.NormalPaulding County HospitalComment on above:Performed By: #### [id number] #### [facility] [address] [place] [id number] OR Intraoperative Recordon [id number] OR Intraoperative RecordMain OR Intraoperative Record IntraOp Document Type FT Summary Primary Physician: Sander Cardoza DO Finalized Date/Time: 10/25/24 09:41:53 Pt. Name: BARRY GALDAMEZ /Sex: 1955 Male Med Rec #: [id number] Physician: Sander Cardoza DO Financial #: [id number] Pt. Type: A Room/Bed: [facility] Admit/Disch: 10/24/24 05:55:22 - 10/24/24 12:15:00 Institution: Case Times FT Entry 1 Patient Times In Room 10/24/24 08:25:00 Out Room 10/24/24 10:13:00 Procedure Times Start 10/24/24 09:03:00 Stop 10/24/24 10:08:00 Anesthesia Times Start 10/24/24 08:25:00 Stop 10/24/24 10:13:00 Block Timeout w10/24/24 07:52:00 Anesthesia Last Modified By: Beck TREVIZO, Linda Tapia 10/24/24 10:13:29 General Comments: left brachial plexus block and interscalene block performed by using ultrasound guidance. Patient's heartrate-53, SP02-99% on room air. MALACHI Hunter to assist with the block. patient tolerated block well. Patient transported back to ASU bay 5 and placed on continous monitor.-SANTHOSH Delgado Case Attendance FT Entry 1 Entry 2 Entry 3 Case Attendee Abdullahi Camacho DO, Michael T Krupp RN, Linda Tapia Role Performed Anesthesiologist Surgeon - Primary Drywall Stripper - Primary Commercial Credit Lead Time In 10/24/24 08:25:00 10/24/24 09:01:00 10/24/24 08:25:00 Time Out 10/24/24 10:13:00 10/24/24 09:53:00 10/24/24 10:13:00 Procedure SHOULDER TOTAL SHOULDER TOTAL SHOULDER TOTAL ARTHROPLASTY(Left) ARTHROPLASTY(Left) ARTHROPLASTY(Left) Comments , anesthesia administrative supervisor Last Modified By: Beck RN, Linda Solares RN, Linda Solares RN, Linda Tapia 10/24/24 10:21:12 10/24/24 10:21:12 10/24/24 10:21:12 Entry 4 Entry 5 Entry 6 Case Attendee Sherwin Carrero Adam A Kipp LPN, Marietta Zelaya Role Performed Staff - Other Staff - Other Scrub - Primary Time In 10/24/24 08:25:00 10/24/24 08:25:00 10/24/24 08:25:00 Time Out 10/24/24 10:13:00 10/24/24 09:53:00 10/24/24 10:13:00 Procedure SHOULDER TOTAL SHOULDER TOTAL SHOULDER TOTAL ARTHROPLASTY(Left) ARTHROPLASTY(Left) ARTHROPLASTY(Left) Comments 2nd scrub at sterile 3rd scrub/ retractor field dupont at sterile field Last Modified By: Beck TREVIZO, Linda Solares RN, Linda Dunn RN 10/24/24 10:21:12 10/24/24 10:21:12 10/24/24 10:21:12 Entry 7 Case Attendee Edilberto Kilgore CST Role Performed ORDER TO DELIVERY SUPERVISOR/SA Time In 10/24/24 08:25:00 Time Out 10/24/24 10:13:00 Procedure SHOULDER TOTAL ARTHROPLASTY(Left) Comments Last Modified By: Beck TREVIZO, Linda Tapia 10/24/24 10:21:12 General Comments: Winifred Hurley [employer] surgical technology student, scrubbed in for case. Hay wilson,present in OR for surgical case Syed BONILLA surgical clinical reviewer in OR observing surgicaltechnology student. Perioperative Protocols FT Pre-Care Text: Implements [...] Complete 10/24/24 09:03:00 Participants Betzy Keita DO, Beck Garcia RN, Alise Patton Kendall R, Votino, Adam A, Kipp LPN, Jame Landrum CST, Benjamin Outcomes Met? Yes [...] Class 1 - Clean Last Modified By: Linda Solares RN 10/24/24 13:02:56 General Case Data FT Pre-Care Text: Classifies surgical wound, implements aseptic technique, initiates traffic control Entry 1 Case Information OR OR 5 FT Case Level Level 6 Wound Class 1 - Clean Specialty Orthopedics ASA Class 3 (more content not included)...NormalPaulding County HospitalABO/Rhon 25-40-4258AIB/RhPositiveInvalid Interpretation [facility] Comment on above:Performed By: #### [id number] #### [facility] [address], [place] [address]VPM/Rh History Checkon 92-04-7013OJA/Rh History CheckVerified Hx Blood TypeNoPremier Health Miami Valley Hospital SouthComment on above:Performed By: #### [id number] #### [facility] [address], [place] [address]VNMDsi 08-60-8453WSFC Gel InterpNegativeLancaster Municipal HospitalComment on above:Performed By: #### [id number] #### [facility] [address], [place] [address]Dvlxq Bank ID#on [id number]#[id number] Interpretation [facility] HospitalComment on above:Performed By: #### [id number] #### [facility] [address] [place] [address]Dggxktnyc Instructionson 32-83-2791Avdpsojaz Instructions Discharge Instructions BARRY GALDAMEZ :1955 Visit Date:10/24/2024 Inpatient Discharge [...] inhalation aerosol) atorvastatin (atorvastatin 80 mg Tab) budesonide/formoterol/glycopyrrolate (Breztri Aerosphere inhalation aerosol) clopidogrel (clopidogrel 75 [...] mg Tab) Procedure History Caudal epidural (02/23/2024), Esophagogastroduodenoscopy (09/23/2023), Epidural injection of lumbarspine using fluoroscopic guidance (06/25/2023), Epidural injection of [...] make important decisions for 24 hours, Do notdrink alcoholic beverages for 24 hours Discharge Diet(s) [...] PM EDT Comments: Keep scheduled appointment Where: [address] [place], [place] [id number] [facility] (1) Medications What How Much When Why Instructions Next Dose Unchanged acetaminophen-oxycodone (Percocet 5 mg-325 mg oral tablet) See instructions Localized osteoarthritis of left shoulder Take one to two oral every 4 hours as needed for surgical pain. Pickup at [facility]/pharmacy #[id number] Unchanged albuterol (Albuterol (Eqv-ProAir HFA) 90 mcg/ inh inhalation aerosol) 2 Inhalation Inhalation As needed for Shortness of breath or wheezing Unchanged atorvastatin (atorvastatin 80 mg Tab) 1 Tablets By Mouth Every day Unchanged budesonide/ formoterol/ glycopyrrolate (Breztri Aerosphere inhalation aerosol) InhalationAs needed for Shortness of breath or wheezing Unchanged clopidogrel (clopidogrel 75 mg Tab) 1 Tablets By Mouth Thursday & Thursday Unchanged docusate (Colace 100 mg Cap) 1 Capsules By Mouth 2 times a day Pickup at [facility]/pharmacy #[id number] Unchanged gabapentin (gabapentin 800 mg Tab) 1 [...] spray) 4 Milligram Nasal Inhalation As Directed forsuspected overdose symptoms Unchanged tramadol (tramadol 50 mg oral tablet) 1 Tablets By Mouth Every 12 hours as needed for as needed for pain Unchanged trazodone (traZODONE 50 mg Tab) 1 Tablets By Mouth Once a day (at bedtime) Unchanged ubi (more content not included)...[facility] Comment on above:Result Comment: Electronically Signed By: Michael TREVIZO, Emmie Eckert\.br\Date and Time Signed: 10/24/24 10:44 EDTMain OR PACU I Recordon 10-24-2024 Main OR PACU I RecordMain OR PACU I Record PACU Phase I Document Type FT Summary Primary Physician: Sander Cardoza DO Finalized Date/Time: 10/24/24 10:54:55 Pt. Name: BARRY GALDAMEZ/Sex: 1955 Male Med Rec #: [id number] Physician: Sander Cardoza DO Financial #: [id number] Pt. Type: A Room/Bed: Admit/Disch: 10/24/24 05:55:22 - Institution: Case Times [...] I Outcomes Met? Yes Last Modified By: Callie Davis RN 10/24/24 10:54:48 Post-Care Text: The patient demonstrates knowledge of the expected response to the operative or invasive procedure The patient's care is consistent with the individualized perioperative plan of care The patient's rightto privacy is maintained The patient's value system, [...] with or improved from baseline levels established preoperativelyThe patient's cardiovascular status is consistent with or improved from baseline levels established preoperatively The patient's cardiovascular status is consistent with or improved from baseline levels established preoperatively The patient demonstrates and/or reports adequate pain control throughout the perioperative period The patient received appropriate medication(s), safely administered during the perioperativeperiod Acuity Level PACU I FT Entry 1 Start Time 10/24/24 10:15:00 Stop Time 10/24/24 10:45:00 Acuity Level Acuity Level I Last Modified By: Callie Davis RN 10/24/24 10:54:54 Finalized By: Callie Davis RN Document Signatures Signed By: Callie Davis RN 10/24/24 10:54LaurePremier Health Miami Valley Hospital SouthMain OR PACU II Recordon 36-29-0109Hvwp OR PACU II RecordMain OR PACU II Record PACU Phase II Document Type FT Summary Primary Physician: Sander Cardoza DO Finalized Date/Time: 10/24/24 12:19:40 Pt. Name: BARRY GALDAMEZ/Sex: 1955 Male Med Rec #: [id number] Physician: Sander Cardoza DO Financial #: [id number] Pt. Type: A Room/Bed: Admit/Disch: 10/24/24 05:55:22 - Institution: Case Times [...] and monitors body temperature Evaluates postoperative respiratory statusEvaluates postoperative cardiac status Evaluates postoperative neurological status [...] individualized perioperative plan of care The patient's rightto privacy is maintained The patient's value system, [...] with or improved from baseline levels established preoperativelyThe patient's cardiovascular status is consistent with or improved from baseline levels established preoperatively The patient's neurological status is consistent with or improved from baseline levels established preoperatively The patient demonstrates and/or reports adequate pain control throughout the perioperative period The patient received appropriate medication(s), safely administered during the perioperativeperiod Finalized By: Emmie Rodriguez RN Document Signatures Signed By: Emmie Rodriguez RN 10/24/24 12:19[facility] HospitalMain OR Preoperative Recordon [id number] OR Preoperative RecordMain OR Preoperative Record PreOp Document Type FT Summary Primary Physician: Sander Cardoza DO Finalized Date/Time: 10/24/24 09:08:19 Pt. Name: BARRY GALDAMEZ /Sex: 1955 Male Med Rec #: [id number] Physician: Sander Cardoza DO Financial #: [id number] Pt. Type: A Room/Bed: AS11/17 Admit/Disch: 10/24/24 [...] Signatures Signed By: Linda Solares RN 10/24/24 09:08NoPremier Health Miami Valley Hospital SouthOperative Reporton [id number] ReportOperative Report Patient: BARRY GALDAMEZ Age: 69 years [...] To Recovery Room in stable and satisfactory condition..[facility] HospitalComment on above:Result Comment: Electronically Signed By: Sander Cardoza DO\.br\Date and Time Signed: 10/24/24 10:02 EDTXR SHOULDER COMPLETE LEFTon 10-24-2024 Exam Date/Time: 10/24/2024 [...] Edilberto Cortes MD Transcribed by: TAWANDA Technologist: Tyrell RadiologistMD - 10/24/2024 Exam Date/Time: 10/24/2024 10:38 EDT [...] Cortes MD Transcribed by: TAWANDA Technologist: MARTHA Grace Study observation (narrative)[facility] HospitalXR SHOULDER COMPLETE LEFTOrdered By: Radiologist Radiology on 88-84-9514EMEG [employer] (formerly [employer]) Work Phone: XR Shoulder Complete Lefton 86-65-4724KJ Shoulder Complete LeftExam Date/Time: 10/24/2024 10:38 EDT Reason for Exam: [...] Edilberto Cortes MD Transcribed by: TAWANDA Technologist: LKSNormalPaulding County HospitalInpatient Patient Summaryon [id number] Patient SummaryInpatient Patient Summary [facility] [address] [place], [place] [address] [facility] Clinical Discharge Instructions PERSON INFORMATION Name: BARRY GALDAMEZ [facility]#:[id number] PHYSICIANS Admitting Physician: Sander Cardoza DO Attending Physician: Sander Cardoza DO PCP: JOE MADDOX DO Discharge Diagnosis: Localized osteoarthritis of left shoulder Comment: PATIENT EDUCATION INFORMATION Instructions: Deborah Emanuel - Shoulder Replacement (CUSTOM) Medication Leaflets: Follow up: With: Address: When: Sander Cardoza [address] [place] [address] [facility] (6) Comments: Keep scheduled appointment Type Location Start [facility] 10/24/2024 8:45 AM 10/24/2024 9:45 AM Confirmed MEDICATION LIST Medications to Continue Taking That Have Changed Other Medications START: albuterol (Albuterol (Eqv-ProAir HFA) 90 mcg/inh inhalation aerosol) 2 Inhalation Inhalationas needed Shortness of breath or wheezing. START: [...] 4 Milligram Nasal Inhalation As Directed. for suspectedoverdose symptoms. Refills: 0. tramadol (tramadol 50 mg oral tablet) 1 Tablets By Mouth every 12 hours as needed as needed for pain. trazodone (traZODONE 50 mg Tab) 1 Tablets By Mouth once a day (at bedtime). ubiquinone (Co Q-10) every day. valsartan (valsartan 80 mg Tab) 1 Tablets By Mouth every day. No Longer Take the Following Medications dextromethorphan (Delsym) potassium bicarbonate Comment:[facility] HospitalLab - Other Lab Resultson 88-54-6814Aev - Other Lab [id number]#1.00OTGTIFFTuscarawas HospitalOutpatient Surgery Discharge Instructionon 47-66-2329Pqropmsumj Surgery Discharge InstructionOutpatient Surgery Discharge Instruction [place] [id number] Patient Discharge Instructions PERSON INFORMATION Name: MOJGANAlessandroBARRY Date of : 1955 Current Date: 10/17/2024 [...] Follow up: With: Address: When: Sander Cardoza [address] [place], [place] [phone] Business (1) Comments: Keep scheduled appointment Type Location Start [facility] 10/24/2024 8:45 AM 10/24/2024 9:45 AM Confirmed Pharmacy Information: You may receive a survey from [employer] asking you to rate your care experience. Your feedback is important and will help us understand what we do well and how we can improve the quality of care we provide to you, your loved ones and our community. It???s an honor to serve you. Thank you for choosing [facility] HERE ARE THE MEDICATION CHANGES THAT OCCURRED DURING YOUR HOSPITAL STAY Medications to Continue Taking That Have Changed Other Medications START: albuterol (Albuterol (Eqv-ProAir HFA) 90 mcg/inh inhalation aerosol) 2 Inhalation Inhalationas needed Shortness of breath or wheezing. START: [...] 4 Milligram Nasal Inhalation As Directed. for suspectedoverdose symptoms. Refills: 0. tramadol (tramadol 50 mg [...] (Delsym) potassium bicarbonate PATIENT EDUCATION INFORMATION Instructions: [place], [place] [facility] DISCHARGE INSTRUCTIONS: SHOULDER REPLACEMENT [...] The bandage is waterproo (more content not included)...NormalPaulding County HospitalBMPon 10-10-2024 Anion gap [Moles/Vol]12 mmol/LNormal6-16Paulding County HospitalComment on above:Performed By: #### [id number] #### [facility] [address], [place] [address]Rfsispa [Mass/Vol]9.6 mg/dLNormal8.9-11.1FOhioHealth Dublin Methodist HospitalComment on above:Performed By: #### [id number] #### [facility] [address], [place] [address]Gvqvfgmz [Moles/Vol]101 mmol/IDmrkcn392-553MmsiapPaulding County HospitalComment on above:Performed By: #### [id number] #### [facility] [address], [place] [address]GE7 [Moles/Vol]31 mmol/JUogtac08-59ZogqguPaulding County Hospital Comment on above:Performed By: #### [id number] #### [facility] [address], [place] [address]Qlhiaozkky [Mass/Vol]0.8 mg/dLNormal0.5-1.3FOhioHealth Dublin Methodist HospitalComment on above:Performed By: #### [id number] #### [facility] [address], [place] [address]Ourumgd [Mass/Vol]90 mg/iVAfsjqh36-626SbvrnbPaulding County HospitalComment on above:Performed By: #### [id number] #### [facility] [address], [place] [address]Ulnqgvsjw [Moles/Vol]5.0 mmol/LNormal3.5-5.3FOhioHealth Dublin Methodist HospitalComment on above:Performed By: #### [id number] #### [facility] [address], [place] [address]Wwsqxk [Moles/Vol]139 mmol/ILwuowe832-020XcaguxPaulding County HospitalComment on above:Performed By: #### [id number] #### [facility] [address], [place] [address]Ujvo nitrogen [Mass/Vol]16 mg/dLNormal5-21Paulding County HospitalComment on above:Performed By: #### [id number] #### [facility] [address] [place] [address]Rgaa nitrogen/Creatinine [Mass ratio]20 No TkxxqJyvmnv17-39 Paul[facility] County HospitalComment on above:Performed By: #### [id number] #### [facility] [address] [place] [address]YGF w/ Auto Diffon 25-13-4892Bwyepdpvv/100 WBC (Bld)0.7 %Normal 0.0-2.0Paulding County HospitalComment on above:Performed By: #### [id number] #### [facility] [address] [place] [address]Zmtszrtbc/Leukocytes Auto (Bld) [Pure # fraction]0.1 E9/LNormal 0.0-0.2FOhioHealth Dublin Methodist HospitalComment on above:Performed By: #### [id number] #### [facility] [address] [place] [address]Pfvhxkqatnw (Bld) [#/Vol]0.3 E9/LNormal0.0-0.5FOhioHealth Dublin Methodist HospitalComment on above:Performed By: #### [id number] #### [facility] [address] [place] [address]Eppdpdfartu/100 WBC (Bld)3.9 %Normal0.0-8.0Paulding County HospitalComment on above:Performed By: #### [id number] #### [facility] [address] [place] [address]Tknrahoikni distribution width (RBC) [Ratio]15.0 %High10.9-14.2 [facility] County HospitalComment on above:Performed By: #### [id number] #### [facility] [address] [place] [address]Norgssrqta (Bld) [Volume fraction]38.0 %Makxqe07.7-49.0Paulding County HospitalComment on above:Performed By: #### [id number] #### [facility] [address], [place] [address]Mvzqzvqzfz (Bld) [Mass/Vol]12.6 g/dLLow13.5-17.5FOhioHealth Dublin Methodist HospitalComment on above:Performed By: #### [id number] #### [facility] [address] [place] [address]Xbqyzotlvsh (Bld) [#/Vol]2.7 E9/LNormal1.0-4.0Paulding County HospitalComment on above:Performed By: #### [id number] #### [facility] [address] [place] [address]Vgbsxcfzems/100 WBC (Bld)30.9 %Otmehk61.0-50.0Paulding County HospitalComment on above:Performed By: #### [id number] #### [facility] [address] [place] [address]SHA (RBC) [Entitic mass]26.1 pgLow27.0-34.0Paulding County HospitalComment on above:Performed By: #### [id number] #### [facility] [address] [place] [address]ZQNB (RBC) [Mass/Vol]33.1 g/hNUpzksq40.4-36.0Paul[facility] County HospitalComment on above:Performed By: #### [id number] #### [facility] [address] [place] [address]KTM (RBC) [Entitic vol]78.9 fLLow80.0-100.0Paulding County HospitalComment on above:Performed By: #### [id number] #### [facility] [address] [place] [address] [id number] (Bld) [#/Vol]0.6 E9/LNormal0.2-1.0Paul[facility] County HospitalComment on above:Performed By: #### [id number] #### [facility] [address] [place] [address] 38879Ntxdvvvxopi (Bld) [#/Vol]5.0 E9/LNormal2.0-7.5FOhioHealth Dublin Methodist HospitalComment on above:Performed By: #### [id number] #### [facility] [address] [place] [address] 70661Evyeifupdfp/100 WBC (Bld)57.6 %Wshtye61.0-75.0[facility] County HospitalComment on above:Performed By: #### [id number] #### [facility] [address] [place] [address] 33033Pwbrhaqr mean volume (Bld) [Entitic vol]7.2 fLNormal6.4-10.8 [facility] HospitalComment on above:Performed By: #### [id number] #### [facility] [address] [place] [address] 60114Jpufitdvs (Bld) [#/Vol]248.0 E9/LHlsrst047.0-500.0[facility] County HospitalComment on above:Performed By: #### [id number] #### [facility] [address] [place] [address] 23844GNI (Bld) [#/Vol]4.8 E12/LNormal4.3-5.9[facility] County HospitalComment on above:Performed By: #### [id number] #### [facility] [address] [place] [address] 61702THA corrected for nucl RBC Auto (Bld) [#/Vol]8.6 E9/LNormal 4.0-11.0[facility] County HospitalComment on above:Performed By: #### [id number] #### [facility] [address] [place] [address] 09069XZ WITH CULT RFLXon 58-53-3261CNGUZKIGM:PRTHR:PT:URINE:ORD:TEST STRIP.AUTOMATEDNegativeNegative mg/dLResearch Medical Center CLARITY:TYPE:PT:URINE:NOM:ClearClearResearch Medical Center CLASS:TYPE:PT:URINE COLLECTION METHOD:NOM:*Clean CatchResearch Medical Center COLOR:TYPE:PT:URINE:NOM:AUTOLight-YellowYellowNOMS HealthcareComment on above: Microscopic readings are only performed on those samples that meet specific criteria set forth by [facility] PH:LSCNC:PT:URINE:QN:TEST STRIP7.05.0 - 9.0NOMS [facility] SPECIFIC GRAVITY:RDEN:PT:URINE:QN:TEST STRIP1.0181.005 - 1.030NOMS [facility] GLUCOSE:PRTHR:PT:URINE:ORD:TEST STRIPNegativeNegative mg/dLNOND Healthcare HEMOGLOBIN:MCNC:PT:URINE:SEMIQN:TEST STRIP.AUTOMATEDNegativeNegative mg/dLNOND HealthcareKETONES:PRTHR:PT:URINE:ORD:TEST STRIP.AUTOMATEDNegativeNegative mg/dL NOMS HealthcareLEUKOCYTE ESTERASE:PRTHR:PT:URINE:ORD:TEST STRIP.AUTOMATED NegativeNegative CD:[id number] HealthcareNITRITE:PRTHR:PT:URINE:ORD:TEST STRIP.AUTOMATEDNegativeNegative mg/dLNOND Healthcare PROTEIN:PRTHR:PT:URINE:ORD:TEST STRIPNegativeNegative mg/dLNOND Healthcare UROBILINOGEN:MCNC:PT:URINE:SEMIQN:TEST STRIPNegativeNegative mg/dLNOND HealthcareOriginal Ordering Provider: DO Sander Hwang with [employer] 55-54-3864Ytobzzzsy Ql (U)NegativeNormalNegative [facility] County HospitalComment on above:Performed By: #### [id number] #### [facility] [address], [place] [address]Adziuzn (U)ClearNormalClearPaulding County HospitalComment on above:Performed By: #### [id number] #### [facility] [address], [place] [address]Mjsxn (U)Light-YellowNormalYRiverview Health Institute Comment on above:Result Comment: Microscopic readings are only performed on those samples that meet specific criteria set forth by [facility].Performed By: #### [id number] #### [facility] [address], [place] [address]Pkvbeco Ql (U)NegativeNormalNegativePaulding County Hospital Comment on above:Performed By: #### [id number] #### [facility] [address], [place] [address]Hrcmgojpjz Auto test strip (U) [Mass/Vol]NegativeNormalNegative [facility] County HospitalComment on above:Performed By: #### [id number] #### [facility] [address], [place] [address]Gapgmfl Auto test strip Ql (U)NegativeNormalNegativePaulding County HospitalComment on above:Performed By: #### [id number] #### [facility] [address], [place] [address]Lqxqllvhv esterase Auto test strip Ql (U)NegativeNormalNegative [facility] County HospitalComment on above:Performed By: #### [id number] #### [facility] [address] [place] [address] 45358Aqkiyjz Auto test strip Ql (U)NegativeNormalNegAdena Fayette Medical CenterComment on above:Performed By: #### [id number] #### [facility] [address] [place] [address] 61198yM (U)7.0 [pH]Invalid Interpretation Code5.0-9.0[facility] County HospitalComment on above:Performed By: #### [id number] #### [facility] [address] [place] [address] 97071Sbavzcv Ql (U)NegativeNormalNegAdena Fayette Medical Center Comment on above:Performed By: #### [id number] #### [facility] [address], [place] [address]Blwnlnzl gravity (U) [Rel density]1.018Invalid Interpretation Code1.005-1.030Paul[facility] County HospitalComment on above:Performed By: #### [id number] #### [facility] [address] [place] [address]Ooipespetdrl (U) [Mass/Vol]NegativeNormalNegativePaulding County HospitalComment on above:Performed By: #### [id number] #### [facility] [address], [place] [address]Oodf of Urine collection methodClean CatchNormalPaulding County HospitalComment on above:Performed By: #### [id number] #### [place] [facility] [address], [place] [address]uBGQeg 74-49-8874eVJT13 mL/min/1.73 f1Fqevxe>=59Paulding County HospitalComment on above:Performed By: #### [id number] #### [facility] [address], [place] [address]HZ SHOULDER LEFT WO IV CONTRASTon 11-77-0133UZ SHOULDER LEFT WO IV CONTRASTEXAMINATION: CT SHOULDER LEFT WO IV CONTRAST HISTORY: [...] fracture. Moderate degenerative changes of the acromioclavicular joint.Coronary artery calcifications are identified. IMPRESSION: Left shoulder osteoarthritis. ELECTRONICALLY SIGNED BY: Vania Puente AvailableComment on above:Order Comment: Send to Rom Kurtz Panel Informationon 21-05-0940Xgsvvuvinicius Mckeon MA 06/22/2024 4:14 PM L Inj/Asp: [...] to verify the correct patient, procedure, equipment, merchandise support associate and site/side marked as required. Patient was prepped and draped in the usual sterile fashion. [facility] WayneXR Should[facility] - left 2 Viewson 31-29-6797Idhbdtn Result: AP Grashey and scapular Y-view demonstrates significant AC joint osteoarthritis with type 2 bulbous acromial hook. He has associated bavw-mu-xxev changes to the humeral head and glenoid with large spur formation off the inferior glenoid and inferior humeral head. No evidence of bony tumor fracture seen.[facility] WayneRadiology Study observation (narrative)[facility] HealthcareMain OR Intraoperative Recordon 04-26-2024 Main OR Intraoperative RecordMain OR Intraoperative Record IntraOp Document Type FTPM Summary Primary Physician: García Castro DO Finalized Date/Time: 04/26/24 14:17:10 Pt. Name: BARRY GALDAMEZ Omayra Bryant/Sex: 1955 Male Med Rec #: [id number] Physician: García Castro DO Financial #: [id number] Pt. Type: P Room/Bed: / Admit/Disch: 04/26/24 [...] Adry Aguirre Role Performed Surgeon - Primary Drywall Stripper - Primary Scrub - Primary Time In 04/26/24 14:08:00 04/26/24 14:08:00 04/26/24 14:08:00 Time Out 04/26/24 14:16:00 04/26/24 14:16:00 04/26/24 14:16:00 Procedure SACROILIAC JOINT SACROILIAC JOINT SACROILIAC JOINT INJECTION(Bilateral, .) INJECTION(Bilateral, .) INJECTION(Bilateral, .) Comments Last Modified By: Annabelle TREVIZO, Iwona Iwona Marcano RN, RN, Madison A 04/26/24 14:15:34 04/26/24 14:15:34 04/26/24 14:15:34 Entry 4 Case Attendee José HARRIS)Ginny Role Performed Nitriles Lab Technician Time In 04/26/24 14:08:00 Time Out 04/26/24 [...] Alanis RN, Roderick RN, Matthew Noland DO, Bradford A., José RT(R)Ginny Time Out Complete 04/26/24 14:09:00 Outcomes [...] and tissue Entry 1 Skin Integrity Intact, [place], Warm, & Skin Abnormality No Dry Outcomes [...] Strap, Pillow Large Under (more content not included)...[facility] HospitalMain OR Preoperative Recordon 26-83-3141Fkyn OR Preoperative RecordMain OR Preoperative Record Holding Area Document Type FTPM Summary Primary Physician: García Castro DO Finalized Date/Time: 04/26/24 13:02:25 Pt. Name: BARRY GALDAMEZ/Sex: 1955 Male Med Rec #: [id number] Physician: García Castro DO Financial #: [id number] Pt. Type: P Room/Bed: / Admit/Disch: 04/26/24 [...] or her perioperative plan of care The patient'sright to privacy is maintained Surgery Checklist FTPM [...] Signatures Signed By: Jennifer Mendieta RN 04/26/24 13:02NormalPaulding County HospitalPMP Drug Screen-LCon 30-20-7376Kdmi Yswxvfjrugcnagxyv90Qtagseu Interpretation [facility] Bryan HospitalComment on above:Performed By: #### [id number] #### [place] [facility] [address], [place] [address]Mufm OR Intraoperative Recordon 88-65-5191Nspv OR Intraoperative RecordMain OR Intraoperative Record IntraOp Document Type FTPM Summary Primary Physician: García Castro DO Finalized Date/Time: 02/23/24 12:14:37 Pt. Name: BARRY GALDAMEZ/Sex: 1955 Male Med Rec #: [id number] Physician: García Castro DO Financial #: [id number] Pt. Type: P Room/Bed: / Admit/Disch: 02/23/24 [...] Entry 3 Case Attendee Gifty DENT, Abdullahi Castro DO, García Weldon MD, Chad Madden Role Performed Anesthesiologist Surgeon - Primary Anesthesiologist of Commercial Credit Lead Record Time In 02/23/24 11:33:00 02/23/24 11:33:00 [...] Adry Alanis RN, Iwona Snyder Role Performed Nitriles Lab Technician Drywall Stripper - Primary Scrub - Primary Time In 02/23/24 11:33:00 02/23/24 11:33:00 02/23/24 11:33:00 Time Out 02/23/24 12:10:00 02/23/24 12:10:00 02/23/24 12:10:00 Procedure MINIMALLY INVASIVE MINIMALLY INVASIVE MINIMALLY INVASIVE LUMBAR DECOMPRESSION(.) LUMBAR DECOMPRESSION(.) LUMBAR DECOMPRESSION(.) Comments Last Modified By: Woodrow TREVIZO, Adry Troy RN, Adry Lawrence RN 02/23/24 12:12:39 02/23/24 12:12:39 02/23/24 12:12:39 Perioperative [...] TREVIZO, Annabelle Noland RN, Matthew Goodwin DO, Bradford A., Gifty DENT, José Dukes RT(R), Ginny Time [...] and tissue Entry 1 Skin Integrity Intact, [place], Warm, & Skin Abnormality Yes Dry Abnormality Location left lower extremity, Abnormality Type bruise medium sized disoloration noted to area. Outcomes Met? Yes Last Modified By: Adry Troy RN 02/23/24 11:41:54 Post-Care Text: The patient is free from signs and symptoms of injury caused by extraneous objects Patient Positioning FTP (more content not included)...[facility] HospitalMain OR Preoperative Recordon 64-99-3023Pjqu OR Preoperative RecordMain OR Preoperative Record Holding Area Document Type FTPM Summary Primary Physician: García Castro DO Finalized Date/Time: 02/23/24 08:53:32 Pt. Name: MOJGANAlessandroBARRY/Sex: 1955 Male Med Rec #: [id number] Physician: García Castro DO Financial #: [id number] Pt. Type: P Room/Bed: / Admit/Disch: 02/23/24 [...] or her perioperative plan of care The patient'sright to privacy is maintained Surgery Checklist FTPM Entry 1 Patient Birthday, ID Band Procedure History and Physical, Identification: Check, Patient Verification: Surgical Consent, With Participation Patient NPO after Midnight: Yes Date/Time: 02/23/24 08:52:00 Results Reviewed N/A Personal Items: Glasses, Jewelry Comments: Personal Items Pt. wearing one ring Complaints of Pain: Yes Comment: and glasses. Pain Comment: 03/29 lower back pain Operative Site Yes Marking: [...] Signatures Signed By: Jennifer Mendieta RN 02/23/24 08:53NoPremier Health Miami Valley Hospital SouthOperative Report on 82-80-3947Gmqayivdj ReportOperative Report Diagnosis: m48.062 lumbar stenosis with neurogenic [...] patient. Bony landmarks were then identified using f luoroscopy. Local anesthetic of 2.0% lidocaine with epinephrine was injected subcutaneously to anesthetize the needle clemens to the appropriate anatomic landmarks bilaterally. Next, the cannula was then advanced in AP and contralateral views to the appropriate anatomic landmarks on on the left side f irst. Once the working channel was in place, [...] over the L5/S1 segment and a 17-gauge Touhyneedle was then advanced into the appropriate space using vkcw-zs-rluvzetlli and confirmed by fluoroscopy and contrast spread. The contrast did not reveal any abnormal uptake or any evidence of duraltear and showed smooth contour. Next, 10 mg of dexamethasone with 1 cc of normal saline was injected into the epidural space. All instruments were removed from the patient and then the wound was cleaned with sterile saline. Next, skin glue was used for the small incisions, 2 of them, on lower lumbar region. Next, 2 Steri- Strips were applied and a Telfa was then [...] will call with any questions or issues periprocedurally.[facility] HospitalComment on above:Result Comment: Electronically Signed By: García Castro DO\.br\Date and Time Signed: 02/23/24 12:10 EDTInsurance Correspondence Officeon 01-01-2024 Insurance Correspondence Office [id number]#1.00TIFSt. Elizabeth HospitalOffice/Clinic Note-Physicianon 21-88-0825Ojlgqg/Clinic Note-Physician [id number]#1.00TIFSt. Elizabeth HospitalNUCLEAR STRESS TESTon 35-05-9889XSWNJON STRESS TESTInterpreted By: Sundar Argueta and Giannuzzi Michael STUDY: MYOCARDIAL PERFUSION STRESS TEST WITH LEXISCAN Performing facility: [facility], [address] [place] [address], [address], [place] [address] [facility] Provider: Dariusz Fuller DO, [facility] PCP: Dr. 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 CAD; High Cholesterol; Previous TX; HTN; SOB; Fatigue; Quit smoking 50 years ago. Cardiac catheterization on 2021, 2023. PTCA on 2021. COMPARISON: Previous nuclear testing completed [id number] at [facility]. ACCESSION NUMBER(S): [id number] ORDERING CLINICIAN: ADDY FULLRE TECHNIQUE: TWO DAY protocol. Stress injection: Date:11-23-23, [...] Sundar Argueta 11/25/2023 3:51 PM Dictation workstation: [id number]'s Hospital for Rehabilitation EGD / Colonoscopyon 50-71-4408AniUwzwna Health SystemLon 49-48-7276HYkijlfln: [id number] Received: 11/04/23 Status: SOUT Req Num: [id number] Spec Type: Surgical Subm Dr: Sander Elias, Tissues: A Duodenum - Biopsy (DUODENUM BIOPSY) B Gastric Biopsy (PRE-PYLORIC BIOPSY) C Esophagus Biopsy (DISTAL ESOPHAGUS BIOPSY) Procedures: HE/6, Gross/Micro L4/3 Age/ Patient Sex Location Account Attending Physician Barry Galdamez 68/M LABELL [id number] Sander Elias DO SPEC NUM: [id number] RECD: 11/04/23 STATUS: LAYTON NARAYAN NUM: [id number] LETA: 11/04/23- SUBM DR: Sander Elias DO ENTERED: 11/04/23 [facility] DR: SPEC TYPE: Surgical DEPT: SNEHA VEGA ENTERED BY: [id number] RECV BY: [id number] ORDERED: HE/6, Gross/Micro L4/3 ORDERED: HE/6, Gross/Micro [...] any other specific histomorphological changes observed Specimen: [id number] Received: 11/04/23 Status: LAYTON Narayan Num: [id number] Spec Type: Surgical Subm Dr: Sander Elias DO Tissues: A Duodenum - Biopsy (DUODENUM BIOPSY) B Gastric Biopsy (PRE-PYLORIC BIOPSY) C Esophagus Biopsy (DISTAL ESOPHAGUS BIOPSY) Procedures: HE/6, Gross/Micro L4/3 Patient: MojganalessandroBarry [id number] (Continued) Specimen: [id number] Received: 11/04/23 (Continued) Signed (signature on file) Indigo Hickey MD 11/07/23 1849 Specimen: [id number] Received: 11/04/23 Status: LAYTON Narayan Num: [id number] Spec Type: Surgical Subm Dr: Sander Elias DO Tissues: A Duodenum - Biopsy (DUODENUM BIOPSY) B Gastric Biopsy (PRE-PYLORIC BIOPSY) C Esophagus Biopsy (DISTAL ESOPHAGUS BIOPSY) Procedures: HENRY/David Salazar/Dedrick L4/3 Patient: Barry Galdamez [id number] (Continued) Specimen: [id number] Received: 11/04/23 (Continued) Gross Description A. The [...] and gastritis, normal colon (suboptimal bowel prep). DAREK/CYC CPT Codes 50805 x 3 Specimen: [id number] Received: 11/04/23 Status: LAYTON Narayan Num: [id number] Spec Type: Surgical Subm Dr: Sander Elias DO Tissues: A Duodenum - Biopsy (DUODENUM BIOPSY) B Gastric Biopsy (PRE-PYLORIC BIOPSY) C Esophagus Biopsy (DISTAL ESOPHAGUS BIOPSY) Procedures: HE/6, Gross/Micro L4/3 Patient: Barry Galdamez [id number] (Continued) Signed (signature on file) Indigo Hickey MD 11/07/[address] [place] [address] Physician GroupSurgical PathologyOrdered By: Cele Gibson on 11-74-4932UfnNprykqBethesda North HospitalOffice/Clinic Note-Nurseon 08-30-4944Xwuhpg/Clinic Note-Nurse [id number]#1.00TIFFJuan ManuelSycamore Medical CenterOutside Records Officeon 33-73-8032Axvucuw Records Office [id number]#1.00TIFJoseAtrium Health Steele Creekcisco [facility] CenterLaboratory Outside Office Copyon 83-52-6868Bitznmuygk Outside Office Copy [id number]#1.00TIFFSejal [facility] Medical CenterConsent for Treatmenton 76-13-4890Lxdnmca for Treatment [id number]#1.00TIFFLaurePremier Health Miami Valley Hospital SouthConsent for [id number]#1.00TIFF [facility] HospitalConsultation Noteon 59-78-9471Yebkukcrndtl Note Patient is presenting with complaints of low back pain as well as leg tiredness and heaviness when ambulating even short distance as well as radicular symptoms in the posterior aspect of his left legall the way to his heel. We discussed [...] his pain as well as tramadol 50 mgtwice daily which she feels is also effective [...] as he is very hesitant to consider surgeryat this time. ANABELL Score: 36% PHQ-2: 3 [...] significant pain relief for him at this timeand reduces pain score typically by 50% when taking this medication, we will prescribe him rrjzorxr16 mg twice daily as as he has been stable on this medication in the past, naloxone was offered andwe sent a prescription over to his pharmacy, OARRS was reviewed and appropriate, UDS updated today -Follow-up in 3 months for medication management and sooner if needed for mild procedure -Continue on gabapentin 1200 mg 3 times daily Patient was counseled on the above diagnosis and treatment, all questions were answered and patientagrees to adhere to the plan above. Risk [...] call with any questions or concerns that arise.[facility] HospitalComment on above:Result Comment: Electronically Signed By: García Castro DO\Date and Time Signed: 10/15/23 11:29 EDTIn office Testingon 77-42-0187Hr office [id number]#1.00TIFF [facility] HospitalOffice/Clinic Note-Physicianon 10-15-2023 Office/Clinic Note-[id number]#1.00TIFF [facility] HospitalOrders Officeon 95-67-3193Cwpdra Office [id number]#1.00TIFSt. Elizabeth HospitalPMP Drug Screen-LCon 60-14-7796Ehrt Nametox flex 23Invalid Interpretation [facility] HospitalComment on above:Performed By: #### [id number] #### [place] [facility] [address], [place] [address]Dfnsyhi Correspondenceon 25-88-9599Mfjzefx Correspondence [id number]#1.00TIFFLancaster Municipal HospitalPatient [id number]#1.00TIFF [facility] HospitalPatient History Officeon 65-49-1739Kzpnawi History [id number]#1.00[facility] Fairfield HospitalRelease of Records Officeon 35-88-5533Jotcnmq of Records [id number]#1.00TIFSt. Elizabeth HospitalBasic Metabolic Panelon 14-51-9984Nujid gap [Moles/Vol]12.3 mmol/L Normal6.0-15.0The [facility] Physician GroupComment on above:Order Comment: WAIT TO DRAW RN BUST AT THE MOMENT WOULD LIKE TO BE PRESENTPerformed By: #### BMP, CBC #### [place] [address] USACalcium [Mass/Vol]8.9 mg/dLNormal8.6-10.3The [facility] Physician GroupComment on above:Order Comment: WAIT TO DRAW RN BUST AT THE MOMENT WOULD LIKE TO BE PRESENTPerformed By: #### BMP, CBC #### [place] [address] USAChloride [Moles/Vol]102 mmol/MAwbpqa63-639Fbu [facility] Physician GroupComment on above:Order Comment: WAIT TO DRAW RN BUST AT THE MOMENT WOULD LIKE TO BE PRESENTPerformed By: #### BMP, CBC #### [place] [address] USACO2 [Moles/Vol]28.8 mmol/KShdscu40.0-31.0The [facility] Physician GroupComment on above:Order Comment: WAIT TO DRAW RN BUST AT THE MOMENT WOULD LIKE TO BE PRESENTPerformed By: #### BMP, CBC #### [place] [address] USACreatinine [Mass/Vol]0.88 mg/dLNormal0.70-1.30The [facility] Physician GroupComment on above:Order Comment: WAIT TO DRAW RN BUST AT THE MOMENT WOULD LIKE TO BE PRESENTPerformed By: #### BMP, CBC #### [place] [address] USACreatinine Clr Calc Icxbmipj059.55NormalThe [facility] Physician GroupComment on above:Order Comment: WAIT TO DRAW RN BUST AT THE MOMENT WOULD LIKE TO BE PRESENTResult Comment: PERFORMED BY: [place] [address] PATHOLOGIST FIELD ARTILLERY RADAR OPERATOR KAREN CORONADO M.D.Performed By: #### BMP, CBC #### [facility] [address] [place] [address] USAGFR/1.73 sq M.predicted MDRD (S/P/Bld) [Vol rate/Area] mL/min/{1.73_m2}NormalThe [facility] Physician GroupComment on above:Order Comment: WAIT TO DRAW RN BUST AT THE MOMENT WOULD LIKE TO BE PRESENTPerformed By: #### BMP, CBC #### [place] [address] USAGlucose [Mass/Vol]116 mg/mWBecp49-675Bow [facility] Physician GroupComment on above:Order Comment: WAIT TO DRAW RN BUST AT THE MOMENT WOULD LIKE TO BE PRESENTResult Comment: Random Glucose Reference Range is dependent on time and content of last meal. Glucose of more than 200 mg/dL in a nonstressed, ambulatory subject supports the diagnosis of Diabetes Mellitus. ADA recommended reference rangePerformed By: #### BMP, CBC #### [place] [address] USAPotassium [Moles/Vol]4.1 mmol/LNormal3.5-5.1The [facility] Physician GroupComment on above:Order Comment: WAIT TO DRAW RN BUST AT THE MOMENT WOULD LIKE TO BE PRESENTPerformed By: #### BMP, CBC #### [place] [address] USASodium [Moles/Vol]139 mmol/FCzrxqb609-871Rtm [facility] Physician GroupComment on above:Order Comment: WAIT TO DRAW RN BUST AT THE MOMENT WOULD LIKE TO BE PRESENTPerformed By: #### BMP, CBC #### [place] [address] USAUrea nitrogen [Mass/Vol]18 mg/dLNormal7-25The [facility] Physician GroupComment on above:Order Comment: WAIT TO DRAW RN BUST AT THE MOMENT WOULD LIKE TO BE PRESENTPerformed By: #### BMP, CBC #### [place] [address] USABasophils Auto (Bld) [#/Vol]Ordered By: Maya Read on 33-27-3282Trsgtknyt (Bld) [#/Vol]0.1 10*3/uL0.0-0.2Fire[facility] Regional Medical CenterBasophils/100 WBC Auto (Bld)Ordered By: Maya Read on 10-01-2023 Basophils/100 WBC (Bld)0.6 %.Acmc Healthcare SystemCalcium [Mass/volume] in Serum or PlasmaOrdered By: Maya Hayessif on 76-26-8022Hrryunl [Mass/Vol]8.9 mg/dL8.6-10.3FMount St. Mary HospitalCarbon dioxide, total [Moles/volume] in Serum or PlasmaOrdered By: Maya Hayessif on 02-64-4425VO3 [Moles/Vol]28.8 mmol/L21.0-31.0Acmc Healthcare SystemChloride [Moles/volume] in Serum or PlasmaOrdered By: Maya Hayessif on 93-75-0550Txbvhitl [Moles/Vol]102 mmol/W77-375YcrzymogwAcmc Healthcare SystemComplete Blood Count Auto Diffon 01-57-9607Bolwrgzuj (Bld) [#/Vol]0.1 10*3/uLNormal0.0-0.2The [facility] Physician GroupComment on above:Order Comment: WAIT TO DRAW RN BUST AT THE MOMENT WOULD LIKE TO BE PRESENTResult Comment: PERFORMED BY: [place] [address] PATHOLOGIST FIELD ARTILLERY RADAR OPERATOR KAREN CORONADO M.D.Performed By: #### BMP, CBC #### [facility] [address] [place] [address] USABasophils/100 WBC (Bld)0.6 %Normal.The [facility] Physician GroupComment on above:Order Comment: WAIT TO DRAW RN BUST AT THE MOMENT WOULD LIKE TO BE PRESENTPerformed By: #### BMP, CBC #### [facility] [address] [place] [address] USAEosinophils (Bld) [#/Vol]0.3 10*3/uLNormal0.0-0.45The [facility] Physician GroupComment on above:Order Comment: WAIT TO DRAW RN BUST AT THE MOMENT WOULD LIKE TO BE PRESENTPerformed By: #### BMP, CBC #### [place] [address] USAEosinophils/100 WBC (Bld)2.3 %Normal.The [facility] Physician GroupComment on above:Order Comment: WAIT TO DRAW RN BUST AT THE MOMENT WOULD LIKE TO BE PRESENTPerformed By: #### BMP, CBC #### [place] [address] USAErythrocyte distribution width (RBC) [Ratio]14.4 %Normal 12.0-14.8The [facility] Physician GroupComment on above:Order Comment: WAIT TO DRAW RN BUST AT THE MOMENT WOULD LIKE TO BE PRESENTPerformed By: #### BMP, CBC #### [place] [address] USAHematocrit (Bld) [Volume fraction]36.7 %Low38.8-50.0The [facility] Physician GroupComment on above:Order Comment: WAIT TO DRAW RN BUST AT THE MOMENT WOULD LIKE TO BE PRESENTPerformed By: #### BMP, CBC #### [place] [address] USAHemoglobin (Bld) [Mass/Vol]12.0 g/dLLow13.0-17.0The [facility] Physician GroupComment on above:Order Comment: WAIT TO DRAW RN BUST AT THE MOMENT WOULD LIKE TO BE PRESENTPerformed By: #### BMP, CBC #### [place] [address] USALymphocytes (Bld) [#/Vol]2.4 10*3/uLNormal1.00-4.8The [facility] Physician GroupComment on above:Order Comment: WAIT TO DRAW RN BUST AT THE MOMENT WOULD LIKE TO BE PRESENTPerformed By: #### BMP, CBC #### [place] [address] USALymphocytes/100 WBC (Bld)21.1 %Normal.[facility] Physician GroupComment on above:Order Comment: WAIT TO DRAW RN BUST AT THE MOMENT WOULD LIKE TO BE PRESENTPerformed By: #### BMP, CBC #### [address]H (RBC) [Entitic mass]26.1 pgLow27.5-35.2The [facility] Physician GroupComment on above:Order Comment: WAIT TO DRAW RN BUST AT THE MOMENT WOULD LIKE TO BE PRESENTPerformed By: #### BMP, CBC #### [address]MCV (RBC) [Entitic vol]80.0 fLLow83.5-101The [facility] Physician GroupComment on above:Order Comment: WAIT TO DRAW RN BUST AT THE MOMENT WOULD LIKE TO BE PRESENTPerformed By: #### BMP, CBC #### [place] [address] USAMean Corpuscular HGB Conc32.6 g/aLYnzdnt54.5-35.6The [facility] Physician GroupComment on above:Order Comment: WAIT TO DRAW RN BUST AT THE MOMENT WOULD LIKE TO BE PRESENTPerformed By: #### BMP, CBC #### [place] [address] USAMonocytes (Bld) [#/Vol]0.9 10*3/uLHigh0.0-0.8The [facility] Physician GroupComment on above:Order Comment: WAIT TO DRAW RN BUST AT THE MOMENT WOULD LIKE TO BE PRESENTPerformed By: #### BMP, CBC #### [place] [address] USAMonocytes/100 WBC (Bld)8.2 %Normal.The [facility] Physician GroupComment on above:Order Comment: WAIT TO DRAW RN BUST AT THE MOMENT WOULD LIKE TO BE PRESENTPerformed By: #### BMP, CBC #### [place] [address] USANeutrophils (Bld) [#/Vol]7.6 10*3/uLNormal1.8-7.7The [facility] Physician GroupComment on above:Order Comment: WAIT TO DRAW RN BUST AT THE MOMENT WOULD LIKE TO BE PRESENTPerformed By: #### BMP, CBC #### [place] [id number] USANeutrophils/100 WBC (Bld)67.8 %Normal.The [facility] Physician GroupComment on above:Order Comment: WAIT TO DRAW RN BUST AT THE MOMENT WOULD LIKE TO BE PRESENTPerformed By: #### BMP, CBC #### [place] [address] USANRBC%0.0 /100{WBC}Normal0-0.5[facility] Comment on above:Order Comment: WAIT TO DRAW RN BUST AT THE MOMENT WOULD LIKE TO BE PRESENTPerformed By: #### BMP, CBC #### [place] [address] USAPlatelet mean volume (Bld) [Entitic vol]6.9 fLNormal 6.6-10.1The [facility] Physician GroupComment on above:Order Comment: WAIT TO DRAW RN BUST AT THE MOMENT WOULD LIKE TO BE PRESENTPerformed By: #### BMP, CBC #### [place] [address] USAPlatelets (Bld) [#/Vol]317 10*3/aAJgsfgb445-757Etj [facility] Physician GroupComment on above:Order Comment: WAIT TO DRAW RN BUST AT THE MOMENT WOULD LIKE TO BE PRESENTPerformed By: #### BMP, CBC #### [place] [address] USARBC (Bld) [#/Vol]4.59 10*6/uLNormal3.90-5.60The [facility] Physician GroupComment on above:Order Comment: WAIT TO DRAW RN BUST AT THE MOMENT WOULD LIKE TO BE PRESENTPerformed By: #### BMP, CBC #### [place] [address] USAWBC (Bld) [#/Vol]11.2 10*3/uLHigh4.1-10.5The [facility] Physician GroupComment on above:Order Comment: WAIT TO DRAW RN BUST AT THE MOMENT WOULD LIKE TO BE PRESENTPerformed By: #### BMP, CBC #### [place] [address] USACreatinine [Mass/volume] in Serum or PlasmaOrdered By: Maya Read on 12-44-0605Mgcpikwshs [Mass/Vol]0.88 mg/dL0.70-1.30[facility] SystemEosinophils Auto (Bld) [#/Vol]Ordered By: Maya Read on 26-36-5600Grufshwrifw (Bld) [#/Vol]0.3 10*3/uL0.0-0.45[facility] SystemEosinophils/100 WBC Auto (Bld)Ordered By: Maya Read on 10-01-2023 Eosinophils/100 WBC (Bld)2.3 %.[facility] SystemErythrocyte distribution width Auto (RBC) [Ratio]Ordered By: Maya Read on 10-01-2023 Erythrocyte distribution width (RBC) [Ratio]14.4 %12.0-14.8[facility] SystemGlucose [Mass/volume] in Serum or PlasmaOrdered By: Maya Read on 95-64-4227Mtkxhmi [Mass/Vol]116 mg/jB56-017UycksfwcwAcmc Healthcare System Comment on above:ADA recommended reference rangeRandom Glucose Reference Range is dependent on time and content of last meal. Glucose of more than 200 mg/dL in a nonstressed, ambulatory subject supports the diagnosisof Diabetes Mellitus. Hematocrit Auto (Bld) [Volume fraction]Ordered By: Maya Read on 10-01-2023 Hematocrit (Bld) [Volume fraction]36.7 %38.8-50.0[facility] SystemHemoglobin [Mass/volume] in BloodOrdered By: Maya Read on 10-01-2023 Hemoglobin (Bld) [Mass/Vol]12.0 g/dL13.0-17.0[facility] Leukocytes [#/volume] corrected for nucleated erythrocytes in Blood by Automated counOrdered By: Maya Read on 15-02-0705QET corrected for nucl RBC Auto (Bld) [#/Vol]11.2 10*3/uL4.1-10.5FMount St. Mary HospitalLymphocytes Auto (Bld) [#/Vol]Ordered By: Maya Read on 71-05-4993Eusrwdlwloe (Bld) [#/Vol]2.4 10*3/uL1.00-4.8[facility] SystemLymphocytes/100 WBC Auto (Bld) Ordered By: Maya Read on 47-57-6243Mgbkuqdoinb/100 WBC (Bld)21.1 %.[facility] SystemMCH Auto (RBC) [Entitic mass]Ordered By: Maya Read on 21-09-7038IEF (RBC) [Entitic mass]26.1 pg27.5-35.2FMount St. Mary HospitalMCHC Auto (RBC) [Mass/Vol]Ordered By: Maya Read on 58-68-8827YKDN (RBC) [Mass/Vol]32.6 g/dL32.5-35.6FMount St. Mary HospitalMCV Auto (RBC) [Entitic vol]Ordered By: Maya Read on 76-59-2998YHU (RBC) [Entitic vol]80.0 fL 83.5-101A[facility] SystemMonocytes Auto (Bld) [#/Vol]Ordered By: Maya Read on 81-29-4912Hypgcjaxm (Bld) [#/Vol]0.9 10*3/uL0.0-0.8[facility] SystemMonocytes/100 WBC Auto (Bld)Ordered By: Maya Read on 21-75-6237Fzorkyglh/100 WBC (Bld)8.2 %.[facility] Neutrophils Auto (Bld) [#/Vol]Ordered By: Maya Read on 86-30-5473Fyiyqfaykvo (Bld) [#/Vol]7.6 10*3/uL1.8-7.7FMount St. Mary HospitalNeutrophils/100 WBC Auto (Bld)Ordered By: Maya Read on 53-66-6661Tobhrvfahjj/100 WBC (Bld)67.8 %.[facility] SystemNo Panel InformationOrdered By: Maya Read on 20-30-9303Hxmystyqf GFR (CKD-EPI)> 60.0 mL/MinAcmc Healthcare SystemPharmacy Creatinine Clearance (Pgiz618.55[facility] Nucleated erythrocytes [Presence] in Blood by Automated countOrdered By: Maya Read on 41-16-6058Gqwwxbmrp RBC Auto Ql (Bld)0.0 /100{WBC}0-0.5FMount St. Mary HospitalPlatelet mean volume Auto (Bld) [Entitic vol]Ordered By: Maya Read on 09-46-8973Reuwglej mean volume (Bld) [Entitic vol]6.9 fL6.6-10.1 [facility] SystemPlatelets Auto (Bld) [#/Vol]Ordered By: Maya Read on 90-55-1862Cwtvclxhr (Bld) [#/Vol]317 10*3/oT234-219QawskoiqtAcmc Healthcare SystemPotassium [Moles/volume] in Serum or PlasmaOrdered By: Maya Read on 90-21-9071Lqdtatmkn [Moles/Vol]4.1 mmol/L3.5-5.1FMount St. Mary HospitalRBC Auto (Bld) [#/Vol]Ordered By: Maya Read on 87-04-0556KPC (Bld) [#/Vol]4.59 10*6/uL3.90-5.60[facility] Centererum or plasma anion gap determinationOrdered By: Maya Read on 71-73-9997Wlops gap [Moles/Vol]12.3 mmol/L6.0-15.0[facility] Centerodium [Moles/volume] in Serum or PlasmaOrdered By: Maya Read on 10-96-0617Gystnk [Moles/Vol]139 mmol/O725-266OpzsxnvsdAcmc Healthcare SystemUrea nitrogen [Mass/volume] in Serum or PlasmaOrdered By: Maya Read on 87-14-6900Pvqb nitrogen [Mass/Vol]18 mg/dL7-25A[facility] Healthcare SystemWBC Auto (Bld) [#/Vol]Ordered By: Maya Read on 52-69-8149OHK (Bld) [#/Vol]11.2 10*3/uL 4.1-10.5FMount St. Mary HospitalA1C with Estimated Average Gluon 49-65-2440Tuzvgtx [Mass/Vol]134 mg/dLNormalThe [facility] Physician GroupComment on above:Result Comment: PERFORMED BY: [place] [address] PATHOLOGIST FIELD ARTILLERY RADAR OPERATOR KAREN CORONADO M.D.Performed By: #### A1C WTH eA #### [place] [id number] UMTZkY1u (Bld) [Mass fraction]6.3 %High4.3-5.6The [facility] Physician GroupComment on above:Result Comment: Increased risk for diabetes: 5.7 - 6.4 diabetes: >6.4 glycemic control for adults with diabetes: <7.0Performed By: #### A1C WTH eA #### [place] [address] USAActivated partial thromboplastin time (aPTT) in platelet poor plasma by coagulation aOrdered By: Singh Mack on 37-07-4788zSVD Coag (PPP) [Time]38.4 s25.1-36.5FMount St. Mary HospitalComment on above:A hematocrit value greater than 55% may lead to inaccurate results in coagulation testing. Patientshaving hematocrit values >55% require a special collection tube for coagulation studies. Please contact the laboratory at [phone] for redraw instructions.Basic Metabolic Panelon 64-68-9178Gmfnj gap [Moles/Vol]11.8 mmol/LNormal6.0-15.0The [facility] Physician GroupComment on above:Performed By: #### HS TROP, MG, LIPID, BMP #### [address] [address] USACalcium [Mass/Vol]8.8 mg/dLNormal8.6-10.3The [facility] Physician GroupComment on above:Performed By: #### HS TROP, MG, LIPID, BMP #### [address] [address] USAChloride [Moles/Vol]102 mmol/NItbygb20-148Mar [facility] Physician GroupComment on above:Performed By: #### HS TROP, MG, LIPID, BMP #### [facility] [address] [place] [address] USACO2 [Moles/Vol]27.4 mmol/JYatidf84.0-31.0The [facility] Physician GroupComment on above:Performed By: #### HS TROP, MG, LIPID, BMP #### [facility] [address] [place] [address] USACreatinine [Mass/Vol]0.70 mg/dLNormal0.70-1.30The [facility] Physician GroupComment on above:Performed By: #### HS TROP, MG, LIPID, BMP #### [facility] [address] [place] [address] USACreatinine Clr Calc Szkvqqht238.20NormKettering Healthe [facility] Physician GroupComment on above:Performed By: #### HS TROP, MG, LIPID, BMP #### [place] [address] USAGFR/1.73 sq M.predicted MDRD (S/P/Bld) [Vol rate/Area] mL/min/{1.73_m2}NormalThe [facility] Physician GroupComment on above:Performed By: #### HS TROP, MG, LIPID, BMP #### [place] [address] USAGlucose [Mass/Vol]101 mg/hRCmxv95-516Van [facility] Physician GroupComment on above:Result Comment: Random Glucose Reference Range is dependent on time and content of last meal. Glucose of more than 200 mg/dL in a nonstressed, ambulatory subject supports the diagnosis of Diabetes Mellitus. ADA recommended reference rangePerformed By: #### HS TROP, MG, LIPID, BMP #### [facility] [address] [place] [address] USAPotassium [Moles/Vol]4.2 mmol/LNormal3.5-5.1The [facility] Physician GroupComment on above:Performed By: #### HS TROP, MG, LIPID, BMP #### [facility] [address] [place] [address] USASodium [Moles/Vol]137 mmol/QNlsxgc714-840Ijk [facility] Physician GroupComment on above:Performed By: #### HS TROP, MG, LIPID, BMP #### [facility] [address] [place] [address] USAUrea nitrogen [Mass/Vol]24 mg/dLNormal7-e [facility] Physician GroupComment on above:Performed By: #### HS TROP, MG, LIPID, BMP #### [facility] [address] [place] [address] USACholesterol [Mass/volume] in Serum or PlasmaOrdered By: Maya Read on 94-87-6950Zbkzjkcixwb [Mass/Vol]89 mg/zY142-454NqgwvdaniAcmc Healthcare SystemComment on above:Chol less than 200 mg/dl low riskChol 201-239 mg/dl borderline riskChol 240 mg/dl and greater high riskCholesterol in LDL Calc [Mass/Vol]Ordered By: Maya Read on 21-63-2559Keclgorrvzj in LDL [Mass/Vol]39 mg/dL0-100Acm[facility] Healthcare SystemComment on above:LDL ATP III CLASSIFICATIONLDL less than 100 mg/dL OptimalLDL 100-129 mg/dL Near or above obqobchEIV586-735 mg/dL Borderline highLDL 160-189 mg/dL HighLDL greater than 189 mg/dL Very highCholesterol in VLDL Calc [Mass/Vol]Ordered By: Maya Read on 94-03-2495Yotxmjbvion in VLDL [Mass/Vol]20 mg/dLAcmc Healthcare SystemECG 12 lead ECGon 63-65-5682SRS 12 lead ECGPROMEDICA DEFIANCE [facility] [address] [place] [address] [place] [address] Electrocardiograph Report Signed Patient: Barry Galdamez MR#: [id number] 41 : 1955 Acct:[id number] Age/Sex: 68 / M ADM Date: 09/30/23 Loc: Room: [address] [place] [address] Type: ADM IN Attending Dr: Juaquin Mckinley [...] Signed By Barbara Rivas MD 0 09/30/23 0729[facility] CenterGlucose mean value [Mass/volume] in Blood Estimated from glycated hemoglobinOrdered By: Singh Mack on 75-99-5871Obpxipi glucose Estimated from glycated hemoglobin (Bld) [Mass/Vol]134 mg/dLAcmc Healthcare SystemHemoglobin A1c percentageOrdered By: Singh Mack on 88-50-5253LeQ7c (Bld) [Mass fraction]6.3 %4.3-5.6FMount St. Mary HospitalComment on above:Increased risk for diabetes: 5.7 - 6.4diabetes: >6.4glycemic control for adults with diabetes: <7.0 IntraOperative Documentson 89-26-5101EpgivYeiaopqtn Documents [id number]#1.00TIFSt. Elizabeth HospitalLipid Panelon 43-23-1425Zzhfjtidtix [Mass/Vol]89 mg/kUBli332-675Ztc [facility] Physician GroupComment on above:Result Comment: Chol less than 200 mg/dl low risk Chol 201-239 mg/dl borderline risk Chol 240 mg/dl and greater high riskPerformed By: #### A1C WTUniversity Health [facility] #### [place] [address] USACholesterol in HDL [Mass/Vol]30 mg/wLZvptkr16-99Ztj [facility] Physician GroupComment on above:Result Comment: HDL CHOL ATP-III CLASSIFICATION Cardiovascular Risk HDL > or equal to 60 mg/dL LOW HDL < 40 mg/dL HIGHPerformed By: #### A1C WT eA #### [facility] [address] [place] [address] USACholesterol.total/Cholesterol in HDL [Mass ratio]3.0 {ratio}Normal<5.0The [facility] Physician GroupComment on above:Result Comment: PERFORMED BY: [place] [address] PATHOLOGIST FIELD ARTILLERY RADAR OPERATOR KAREN CORONADO M.D.Performed By: #### A1C WT eA #### [place] [address] USALDL Cholesterol,Lseijqhxgb44 mg/dLNormal0-100The [facility] Physician GroupComment on above:Result Comment: LDL ATP III CLASSIFICATION LDL less than 100 mg/dL Optimal LDL 100-129 mg/dL Near or above optimal LDL 130-159 mg/dL Borderline high LDL 160-189 mg/dL High LDL greater than 189 mg/dL Very highPerformed By: #### A1C WT eA #### [place] [id number] USATriglyceride w/Xuwtyz190 mg/dLNormal0-149The [facility] Physician GroupComment on above:Result Comment: TRIG ATP III CLASSIFICATION TRIG less than 150 mg/dL Normal TRIG 150-199 mg/dL Borderline high TRIG 200-500 mg/dL High TRIG greater than 500 mg/dL Very high Standard traceable to the Center for Disease Conrtrol and Prevention (CDC) test method.Performed By: #### A1C WTH eA #### [facility] [address] [place] [address] USAVLDL NHOGFIOACAZ27 mg/dLNormalThe [facility] Physician GroupComment on above:Performed By: #### A1C WTH eA #### [address] [address] USAMagnesiumon 22-47-8104Ryzupofhq [Mass/Vol]1.8 mg/dLLow 1.9-2.7The [facility] Physician GroupComment on above:Performed By: #### HS TROP, MG, LIPID, BMP #### [facility] [address] [place] [address] USAMagnesium [Mass/volume] in Serum or PlasmaOrdered By: Maya Read on 92-71-2687Wkebcmnzh [Mass/Vol]1.8 mg/dL1.9-2.7FMount St. Mary HospitalMonitor Recordon 29-88-5909Xfpdklq Record [id number]#1.00TIFFNormalFisher Adventist Healthcare [facility] Oak Medical CenterPartial Thromboplastin Timeon 94-03-8964vDVR Coag (Bld) [Time]38.4 sHigh 25.1-36.5The [facility] Physician GroupComment on above:Result Comment: A hematocrit value greater than 55% may lead to inaccurate results in coagulation testing. Patients having hematocrit values >55% require a special collection tube for coagulation studies. Please contact the laboratory at [phone] for redraw instructions. PERFORMED BY: [place] [address] PATHOLOGIST FIELD ARTILLERY RADAR OPERATOR KAREN CORONADO M.D.Performed By: #### A1C WTH eA #### [facility] [address] [place] [address] USAaPTT Coag (Bld) [Time]39.0 sHigh25.1-36.5The [facility] Physician GroupComment on above:Result Comment: A hematocrit value greater than 55% may lead to inaccurate results in coagulation testing. Patients having hematocrit values >55% require a special collection tube for coagulation studies. Please contact the laboratory at [phone] for redraw instructions. PERFORMED BY: [place] [address] PATHOLOGIST FIELD ARTILLERY RADAR OPERATOR KAREN CORONADO M.D.Performed By: #### PTT #### [address] [address] USASerum or plasma high density lipoprotein (HDL) cholesterol measurementOrdered By: Maya Read on 25-96-7493Dhirkboptgf in HDL [Mass/Vol]30 mg/jG03-18YwerlpzqkAcmc Healthcare SystemComment on above:HDL CHOL ATP-III CLASSIFICATION Cardiovascular RiskHDL > or equal to 60 mg/dL LOWHDL < 40 mg/dL HIGHSerum or plasma total cholesterol/high density lipoprotein (HDL) cholesterol mass ratOrdered By: Maya Read on 47-57-6998Spvhvtsvhjs.total/Cholesterol in HDL [Mass ratio]3.0 {ratio}<5.0A[facility] Healthcare SystemTriglyceride [Mass/volume] in Serum or PlasmaOrdered By: Maya Hayessif on 09-30-2023 Triglyceride [Mass/Vol]101 mg/dL0-149A[facility] Healthcare SystemComment on above:TRIG ATP III CLASSIFICATIONTRIG less than 150 mg/dL NormalTRIG 150-199 mg/dL Borderline highTRIG 200-500 mg/dL High TRIG greater than 500 mg/dL Very highStandard traceable to the Center for Disease Conrtrol and Prevention (CDC) test method.Troponin I High Sensitivityon 56-12-9991Ppiqxaxg I High Sensitivity 976.8 pg/mLOff scale high0.0-20.0The [facility] Physician GroupComment on above: Result Comment: Critical Result : Called to and read back by: RAMO GARRISON at: 09/30/2023 10:10:05 by:[id number] PERFORMED BY: [place] [address] PATHOLOGIST FIELD ARTILLERY RADAR OPERATOR KAREN CORONADO M.D.Performed By: #### A1C WT eA #### [place] [address] USATroponin I High Kjgvnvxwcco6252.9 pg/mLOff scale high 0.0-20.0The [facility] Physician GroupComment on above:Result Comment: Critical Result : Called to and read back by: JARON GERONIMO at: 09/30/2023 03:54:06 by:[id number] PERFORMED BY: [place] [address] PATHOLOGIST FIELD ARTILLERY RADAR OPERATOR KAREN CORONADO M.D.Performed By: #### HS TROP, MG, LIPID, BMP #### [facility] [address] [place] [address] USATroponin I High Lwoosobomrj8676.0 pg/mLOff scale high 0.0-20.0The [facility] Physician GroupComment on above:Result Comment: Results called at 0353 on 09/30/23 PERFORMED BY: [place] [address] PATHOLOGIST FIELD ARTILLERY RADAR OPERATOR KAREN CORONADO M.D.Performed By: #### A1C WTH eA #### [facility] [address] [place], [place] [address] USATroponin I.cardiac [Mass/volume] in Serum or Plasma by Detection limit <= 0.01 ng/Ordered By: Maya Read on 42-85-2520Dwavudfo I.cardiac DL <= 0.01 ng/mL [Mass/Vol]976.8 pg/mL0.0-20.0A[facility] Healthcare SystemComment on above:Critical Result : Called to and read back by: RAMO GARRISON at: 09/30/2023 10:10:05 by:[id number] echo transthoracicon 66-75-3677SIF echo transthoracicPROMEDICA DEFIANCE REGIONAL [facility] [address] [place] [address] [place], [place] [address] Echocardiogram Signed Patient: Barry Galdamez MR#: [id number] 41 : 1955 Acct:[id number] Age/Sex: 68 / M ADM Date: 09/30/23 Loc: Room: [address] [place] [address] Type: ADM IN Attending Dr: Juaquin Mckinley [...] 2.7 cm2 Transcribed By: SCV Performed At: 09/29/232146 Signed By: Barbara Rivas MD 09/30/[address] [place] [address] Physician GroupDisakron children's hospitalrge Instructionson 94-41-5030Ymxjoxpok Instructions [id number]#1.00TIFFLancaster Municipal HospitalMain OR Intraoperative Recordon 60-92-3709Ustx OR Intraoperative Record IntraOp Document Type FT Summary Primary Physician: Igor FARFAN, Hui Pineda Finalized Date/Time: 09/25/23 14:06:26 Pt. Name: MOJGANAlessandroBARRY D.O.B./Sex: 1955 Male Med Rec #: [id number] Physician: Erwin VALADEZ DO Financial #: [id number] Pt. Type: O Room/Bed: [facility]/ Admit/Disch: 09/22/23 20:07:00 - 09/23/23 14:55:00 Institution: [...] Igor FARFAN, Hui Agosto RN, Corrina Tyler CRNA, [place] Role Performed Surgeon - Primary Drywall Stripper - Primary MD UROLOGIST Time In 09/23/23 08:53:00 09/23/23 08:53:00 09/23/23 [...] room Last Modified By: Triny RN, Corrina Chun RN 09/23/23 09:04:40 F 09/23/23 09:04:40 Perioperative Protocols [...] and tissue Entry 1 Skin Integrity Intact, [place], Warm, and Skin Abnormality No Dry Outcomes [...] Side Right Arm Po (more content not included)...[facility] Progress Note-Physicianon 68-95-6957Lydoojdk Note-PhysicianPatient: BARRY GALDAMEZ Age: 68 years Sex: Male [...] Problems Weak urine stream / SNOMED CT 724783664 / Confirmed Screening PSA (prostate specific antigen) / SNOMED CT 545527704 / Confirmed Osteoarthritis / SNOMED CT 9403677821 / Confirmed Nocturia / SNOMED CT 758948688 / Confirmed Impingement syndrome of right shoulder / SNOMED CT 570823395 / Confirmed HTN (hypertension) / SNOMED CT 5347273615 / Confirmed Hypertension / SNOMED CT 1691680154 / Confirmed Erectile dysfunction / SNOMED CT 6104706806 / Confirmed Depression / SNOMED CT 53744752 / Confirmed Carpal tunnel syndrome of right wrist / SNOMED CT 90768042 / Confirmed Asymptomatic microscopic hematuria / SNOMED CT 3300046418 / Confirmed Asthma / SNOMED CT 032011664 / Confirmed Arthritis / SNOMED CT 9518013 / Confirmed Hip pain, left / SNOMED CT 3115707315 / Confirmed DJD Resolved: At risk for falls / SNOMED CT 781784454 Problem added when Risk for Falls Careplan was initiated. Resolved due to patient discharge. Histories Procedure history: Left L4/5 Transforaminal Epidural Steroid Injections ([id number]) on 06/25/2023 at 67 Years. Comments: 07/31/2023 10:10 Brianna Echeverria 10% relief L5/S1 TASHA (3748920317) on 05/19/2023 at 67 Years. Comments: 06/05/2023 11:07 Theodora Oh RN L5/S1 TASHA 70% relief L5-S1 TASHA ([id number]) on 12/10/2022 at 67 Years. Comments: 01/09/2023 13:14 JAMA Troy RN, Adry J L5-S1 TASHA-100% relief Arthroscopy of shoulder ([id number]) on 04/13/2018 at 62 Years. Comments: 04/13/2018 14:52 JAMA Rust RN, Marti right .distal claviculectomy .extensive debridement ,subacromial decompression. Carpal tunnel release (056454973) on 04/13/2018 at 62 Years. Comments: 04/13/2018 14:52 Marti Trinidad RN right Hip arthroplasty ([id number]) on 09/29/2017 at 62 Years. Comments: 09/29/2017 14:17 Imelda Palencia RN left Left hip arthrogram on 12/03/2016 at 61 Years. Appendectomy; (58228). Colonoscopy (812420657). Tooth extraction, complete mouth (70500295). Stent (835546745). Comments: 09/04/2022 14:42 JAIME Mendieta RN, Jennifer [...] adequate air exchange. Cardiovascular: Regular rhythm. Plan [place] [employer]esthesiologists (ASA) physical status classification: Class III. Anesthetic Preoperative Plan: Anesthesia General.[facility] HospitalComment on above:Result Comment: Electronically Signed By: Chad Shaw Jr, DO\.br\Date and Time Signed: 09/25/23 13:55 ESTProgress Note-Physician Patient: BARRY GALDAMEZ Age: 68 years [...] Discharge when meets criteria ( To home ).[facility] HospitalComment on above:Result Comment: Electronically Signed By: Chad Shaw Jr, DO\.br\Date and Time Signed: 09/25/23 13:53 ESTConsenton 04-00-7392Kesgtma [id number]#1.00TIFSt. Elizabeth HospitalFacesheeton 25-09-9238Mimbvrzda [id number]#1.00TIFSt. Elizabeth HospitalOutside Recordson 17-67-6358Hwxkarj Records [id number]#1.00TIFSt. Elizabeth HospitalTransfer Documentson 64-46-8424Gnubnwhp Documents [id number]#1.00TIFSt. Elizabeth HospitalBMPon 10-72-0163Ynoou gap [Moles/Vol]9 mmol/LNormal6-16[facility] HospitalComment on above:Performed By: #### 5726803, 50960123, 04202335, 5509642 ####[facility] [address] [place], [place] [address]Yzsfshe [Mass/Vol]9.0 mg/dLNormal8.9-11.1Fisher [facility] Medical CenterComment on above:Performed By: #### 6897664, 60780173, 20308178, 4437784 ####[facility] [address]NV[place], [place] [address]Olypbtlz [Moles/Vol]104 mmol/VQoktqi234-188IitllkPaulding County HospitalComment on above: Performed By: #### 2667490, 06562395, 34288811, 4978859 ####[facility] [address]ctfuqnjfu[address] AveNorlewis county general hospitalkT[place], [place] [address]TQ7 [Moles/Vol]31 mmol/L Xdqpyy92-65ItdppkPaulding County HospitalComment on above:Performed By: #### 0980980, 66351372, 30401787, 9622700 ####[facility] Fntugauand[address] AveNveterans administration medical centerkTUR[place], [place] [address]Aconlhxyvt [Mass/Vol]0.8 mg/dLNormal 0.5-1.3FOhioHealth Dublin Methodist HospitalComment on above:Performed By: #### 9153984, 05298077, 08956581, 2322711 ####[facility] Nnhzpqstbl[address] AveNveterans administration medical centerk, [place] [address]Udntaws [Mass/Vol]96 mg/qBVbeqdp46-038YkjypnPaulding County HospitalComment on above:Performed By: #### 4173666, 11356854, 50721248, 8387170 ####[facility] [address] [place], [place] [address]Wxdrqpgia [Moles/Vol]4.4 mmol/LNormal3.5-5.3FOhioHealth Dublin Methodist Hospital Comment on above:Performed By: #### 4841308, 05927500, 60603399, 7313802 ####[address] [address] Sodium [Moles/Vol]140 mmol/YGkhqes875-410IchxbbPaulding County HospitalComment on above:Performed By: #### 0701590, 78792064, 58591125, 3848781 ####[address] [address]Hsjr nitrogen [Mass/Vol]21 mg/dLNormal5-21Paul[facility] County HospitalComment on above: Performed By: #### 1311685, 70324897, 36538241, 7330508 ####[address] [address]Knco nitrogen/Creatinine [Mass ratio]26 No WyqjwFnhn63-54AdmsjfPaulding County HospitalComment on above: Performed By: #### 1327936, 80562886, 91297368, 6646137 ####[address] [address]IDX w/ Auto Diffon 09-23-2023 Basophils/100 WBC (Bld)0.5 %Normal0.0-2.0[facility] County HospitalComment on above:Performed By: #### 8090873, 78952100, 08733262, 2845494 ####[address] [address]Aaegbyzlp/Leukocytes Auto (Bld) [Pure # fraction]0.1 E9/LNormal0.0-0.2FOhioHealth Dublin Methodist Hospital Comment on above:Performed By: #### 6179627, 20860429, 25007277, 9741030 ####[address] [address] Eosinophils (Bld) [#/Vol]0.2 E9/LNormal0.0-0.5FOhioHealth Dublin Methodist HospitalComment on above:Performed By: #### 0883502, 07442301, 59641671, 3789773 ####[address] [address]Gfzbvlgvtvd/100 WBC (Bld)1.6 %Normal0.0-8.0[facility] County HospitalComment on above:Performed By: #### 0732608, 32297968, 49427513, 7479473 ####[address] [address]Ptrtqqjwprx distribution width (RBC) [Ratio]14.2 %Ynmhdw21.9-14.2FOhioHealth Dublin Methodist HospitalComment on above: Performed By: #### 6505142, 89696792, 55773314, 6841583 ####[address] [address]Gnjehddapd (Bld) [Volume fraction]34.4 %Low37.7-49.0[facility] County HospitalComment on above:Performed By: #### 2736696, 95314453, 88057564, 0194497 ####[address] [address]Jchwvykwto (Bld) [Mass/Vol]11.3 g/dL Low13.5-17.5FOhioHealth Dublin Methodist HospitalComment on above:Performed By: #### 5751963, 07100659, 63475223, 4404558 ####[address] [address]Dpzvdhjeqyb (Bld) [#/Vol]3.1 E9/L Normal1.0-4.0[facility] HospitalComment on above:Performed By: #### 6374516, 29403180, 75632042, 8128503 ####[address] [address]Zhfkrcraaxm/100 WBC (Bld)26.5 %Normal 14.0-50.0[facility] HospitalComment on above:Performed By: #### 7923237, 46439775, 52600349, 9997757 ####[address] [address]FGU (RBC) [Entitic mass]26.3 pgLow27.0-34.0[facility] County HospitalComment on above:Performed By: #### 8517642, 25859104, 85269659, 6602330 ####[address] [address]YTIT (RBC) [Mass/Vol]32.9 g/pNQjkbpo43.4-36.0[facility] HospitalComment on above:Performed By: #### 6153328, 75976270, 00121191, 9713153 ####[address] [address]FBB (RBC) [Entitic vol]80.1 wRSppjzb73.0-100.0[facility] Comment on above:Performed By: #### 1136668, 07637906, 97700989, 5499209 ####[address] [address] Monocytes (Bld) [#/Vol]0.8 E9/LNormal0.2-1.0[facility] HospitalComment on above:Performed By: #### 8611097, 28760641, 41487817, 7811017 ####[address] [address]Cujhvguvdgg (Bld) [#/Vol]7.7 E9/LHigh2.0-7.5FOhioHealth Dublin Methodist HospitalComment on above: Performed By: #### 8683853, 97010457, 41763579, 9113055 ####[address] [address]Dciljjvueuy/100 WBC (Bld)64.5 %Aaktws65.0-75.0[facility] HospitalComment on above:Performed By: #### 3831854, 09934530, 20172222, 6297562 ####[address] [place], [place] [address]Txkcpdjk mean volume (Bld) [Entitic vol]7.2 fLNormal6.4-10.8[facility] HospitalComment on above:Performed By: #### 4188982, 24849324, 44747537, 8564518 ####[address] [address]Hnqvuqumq (Bld) [#/Vol]240.0 E9/L Tssybz627.0-500.0[facility] County HospitalComment on above:Performed By: #### 5563339, 05773916, 67377116, 3820289 ####[address] [address]OJY (Bld) [#/Vol]4.3 E12/LNormal 4.3-5.9[facility] HospitalComment on above:Performed By: #### 6195839, 44749173, 59698873, 9721686 ####[address] [address]JIR corrected for nucl RBC Auto (Bld) [#/Vol]11.9 E9/LHigh4.0-11.0[facility] HospitalComment on above:Performed By: #### 6940276, 94546318, 94825244, 6780180 ####[address] [address]Boliqbgewiod Noteon 09-23-2023 Consultation NotePatient: BARRY GALDAMEZ Age: 68 years Sex: Male : 1955 Associated Diagnoses: None Author: Hui Costa MD Pre-Procedure Procedure Date 09/11/2023 09:18:00 . Procedure Type: Esophagogastroduodenoscopy with removal of foreign body. Procedure provider [...] mL/hr, Routine, Start date 09/23/23 1:12:00 EST, 13.3hour(s), Total volume (mL): 1,000 Zofran 4 mg/2 [...] day(s), # 135 tab(s), Refills(s) 1, Pharmacy: [facility]/pharmacy #[id number], 183, cm, 07/31/23 10:16:00 EST, Height/Length Dosing, 116, kg, 07/31/2409:16:00 EST, Weight Dosing Documented Medications Documented Co [...] and Plan EGD: Diagnosis: Esophageal foreign body (TEV07-MD T18.108A, Discharge, Medical). Course: Progressing as expected. Education and Follow-up: Counseled. Notes: Obtain H. pylori stool antigen Start PPI once daily Repeat EGD after 3 months to obtain esophageal and stomach biopsies.[facility] HospitalComment on above:Result Comment: error Electronically Signed By: Hui Costa MD\.br\Date and Time Signed: 09/23/23 09:09 Ana 28-38-9645ZxhzyflmatzbbkzsbozzybxhquZhaejci: BARRY GALDAMEZ Age: 68 years Sex: Male : 1955 Associated Diagnoses: None Author: Hui Costa MD History of Present Illness Gastroenterology Consult 6-rbtj-yvq-year-old male with past medical history of coronary disease on Plavix Admitted with food bolus impaction Was eating chicken and ate through the pollen around 3 PM yesterday Presented to [facility] and evaluated with CAT scan which showed [...] mL/hr, Routine, Start date 09/23/23 1:12:00 EST, 13.3hour(s), Total volume (mL): 1,000 Zofran 4 mg/2 [...] day(s), # 135 tab(s), Refills(s) 1, Pharmacy: [facility]/pharmacy #[id number], 183, cm, 07/31/23 10:16:00 EST, Height/Length Dosing, 116, kg, 07/31/2409:16:00 EST, Weight Dosing Documented Medications Documented Co [...] disease Mother Arthritis Mother Procedure history: Esophagogastroduodenoscopy (123826796) on 09/23/2023 at 68 Years. Left L4/5 Transforaminal Epidural Steroid Injections (2722473410) on 06/25/2023 at 67 Years. Comments: 07/31/2023 10:10 Brianna Echeverria 10% relief L5/S1 TASHA (4536106749) on 05/19/2023 at 67 Years. Comments: 06/05/2023 11:07 Theodora Oh RN L5/S1 TASHA 70% relief L5-S1 TASHA (9715284510) on 12/10/2022 at 67 Years. Comments: 01/09/2023 13:14 Adry Saab RN L5-S1 TASHA-100% relief Arthroscopy of shoulder (330077773) on 04/13/2018 at 62 Years. Comments: 04/13/2018 14:52 JAMA Rust RN, Marti right .distal claviculectomy .extensive debridement ,subacromial decompression. Carpal tunnel release (243602698) on 04/13/2018 at 62 Years. Comments: 04/13/2018 14:52 Marti Trinidad RN right Hip arthroplasty (748771940) on 09/29/2017 at 62 Years. Comments: 09/29/2017 14:17 Imelda Palencia RN left Left hip arthrogram on 12/03/2016 at 61 Years. Appendectomy; (72041). Colonoscopy (296544894). Tooth extraction, complete mouth (44475186). Stent (808083519). Comments: 09/04/2022 14:42 EST - Anam TREVIZO, Jennifer Omayra cardiac Social History Social & Psychosocia (more content not included)...[facility] HospitalEsophagogastroduodenoscopyPatient: BARRY GALDAMEZ Age: 68 years Sex: Male : 1955 Associated Diagnoses: None Author: Hui Costa MD MMEGD Patient: BARRY GALDAMEZ Age: 68 years Sex: Male : 1955 Associated Diagnoses: None Author: Hui Costa MD Pre-Procedure Procedure Date 09/11/2023 09:18:00 . Procedure Type: Esophagogastroduodenoscopy with removal of foreign body. Procedure provider [...] mL/hr, Routine, Start date 09/23/23 1:12:00 EST, 13.3hour(s), Total volume (mL): 1,000 Zofran 4 mg/2 [...] day(s), # 135 tab(s), Refills(s) 1, Pharmacy: [facility]/pharmacy #[id number], 183, cm, 07/31/23 10:16:00 EST, Height/Length Dosing, 116, kg, 07/31/2409:16:00 EST, Weight Dosing Documented Medications Documented Co [...] and Plan EGD: Diagnosis: Esophageal foreign body (PFW05-RZ T18.108A, Discharge, Medical). Course: Progressing as expected. [...] September 23, 2023 9:09 EST Encounter info: [id number], [place] - Og, Observation, 09/22/2023 -[facility] HospitalComment on above:Result Comment: error EsophagogastroduodenoscopyPatient: BARRY GALDAMEZ Age: 68 years Sex: Male : 1955 Associated Diagnoses: None Author: Hui Costa MD Pre-Procedure Procedure Date 09/11/2023 09:18:00 . Procedure Type: Esophagogastroduodenoscopy with removal of foreign body. Procedure provider [...] mL/hr, Routine, Start date 09/23/23 1:12:00 EST, 13.3hour(s), Total volume (mL): 1,000 Zofran 4 mg/2 [...] day(s), # 135 tab(s), Refills(s) 1, Pharmacy: [facility]/pharmacy #[id number], 183, cm, 07/31/23 10:16:00 EST, Height/Length Dosing, 116, kg, 07/31/2409:16:00 EST, Weight Dosing Documented Medications Documented Co [...] and Plan EGD: Diagnosis: Esophageal foreign body (OTL73-FH T18.108A, Discharge, Medical). Course: Progressing as expected. Education and Follow-up: Counseled. Notes: Obtain H. pylori stool antigen Start PPI once daily Repeat EGD after 3 months to obtain esophageal and stomach biopsies.[facility] HospitalInpatient Clinical Summaryon 32-95-5548Tkcizunat Clinical Summary [id number] Clinical Summary Person Information: Name: BARRY GALDAMEZ Age: 68 Years : 1955 Sex: Male PCP: JOE MADDOX DO Marital Status: Phone: [phone] Race: White Ethnicity: Non- or Language: Venezuelan Visit Id: Visit Reason: ESOPHAGEAL FOOD BOLUS Speciality: Acuity: Enc Type: Observation Med Service: Medical Arrival: 09/22/2023 20:07:00 Discharge: Dispo Type: Address: [facility] 07/[facility] [id number] Provider Notes: Diagnosis: 1:Esophageal foreign body; 2:Coronary [...] / 78 mmHg BMI: 32.83 kg/m2 Procedures Esophagogastroduodenoscopy (09/23/2023) Immunizations No Immunizations Documented This Visit [...] With: Address: When: JOE MADDOX DO [address] [place] [address] 09/29/2023 3:30 PM With: Address: When: Igor FARFAN, Hui Pineda, [facility], [address], [address] [place] [phone] 11/30/2023 9:00 AM Comments: Will need EGD in 3 months, Plavix must be held prior to endoscopy x 5 day [address] be [address] Dr[address] Biswas at this appoinment. Type Location Start Finish State [facility] 10/01/2023 2:15 PM 10/01/2023 2:25 PM Confirmed B[facility] New Patient [facility] 11/30/2023 9:00 AM 11/30/2023 9:30 AM Confirmed Patient Education Information: Hiatal Hernia; Duodenitis; Upper Endoscopy, Adult, Care After; Swallowed Foreign Body, Adult ProtonixNormalFisher [facility] Medical CenterInpatient Patient Summaryon 09-23-2023 Inpatient Patient Summary [address] [id number] Patient Discharge Instructions PERSON INFORMATION Name: BARRY [...] Stool Sample Follow up: With: Address: When: VARSHA MARTINEZ, JOE Lam [address] [place] [address] 09/29/2023 3:30 PM With: Address: When: Igor FAFRAN, JEFF Contreras, [address], [address] [place] [phone] 11/30/2023 9:00 AM Comments: Will need EGD [...] State Pain Management - Follow Up (FT) .[facility] [place] 10/01/2023 2:15 PM 10/01/2023 2:25 PM Confirmed [facility] New Patient [facility] 11/30/2023 9:00 AM 11/30/2023 9:30 AM Confirmed Comment: DENICE Pimentel WAYNE M, have received the attached patient education materials/instructions and have verbalized understanding: Patient Signature Date Clinican/Nurse Signature Date HERE ARE THE MEDICATION CHANGES THAT OCCURRED DURING YOUR HOSPITAL STAY New Medications [id number], [address] [place], [place] [id number], [phone] pantoprazole (Protonix 40 mg Tab-DR) 1 Tablets By Mouth every day. Refills: 7. Last Dose: Next Dose: Medications to Continue Taking That Have Changed Other Medications START: gabapentin (gabapentin 800 mg Tab) 1.5 Tablets By Mouth 3 times a day for 30 Days. Refills: 1. Last Dose: Next Dose: STOP: gabapentin (gabapentin 300 mg Cap) TAKE 1 CAPSULE BY MOUTH TID pt states he is on 800 mg TID. Medications to Continue with No Changes Other Medications atorvastatin (atorvastatin 80 mg Tab) 1 Tablets By Mouth every day. Last Dose: Next Dose: clopidogrel (clopidogrel 75 mg Tab) TAKE 1 TABLET BY MOUTH THURSDAY THROUGH THURSDAY. Last Dose: Next Dose: metoprolol (Metoprolol tartrate 50 mg Tab) 1 Tablets By Mouth every day. Last Dose: Next Dose: tramadol (tramadol 50 mg oral tablet) 1 Tablets By Mouth every 12 hours as needed as needed for pain. Last Dose: Next Dose: trazodone (traZODONE 50 mg Tab) 1 Tablets By Mouth once a day (at bedtime). Last Dose: Next Dose: ubiquinone (Co Q-10) every day. Last Dose: Next Dose: valsartan (valsartan 80 mg Tab) 1 Tablets By Mouth every day. Last Dose: Next Dose: No Longer Take the Following Medications meloxicam [...] Mouth every 12 emily (more content not included)...NormalAtrium Health Steele Creeker [facility] Medical CenterInsurance Correspondenceon 91-89-3182Rtlsplinj Correspondence [id number]#1.00TIFSt. Elizabeth HospitalInsurance Correspondence Officeon 78-28-4056Wofghvzht Correspondence [id number]#1.00[facility] HospitalInterdisciplinary Note - Case Manageron 09-23-2023 Interdisciplinary Note - Case ManagerPt is awake and alert in bed, previously rounded with Ariana. Pt is aware of plan to DC home later today. Pt is from home with and she will transport at DC. Observation status reviewed, PCP vermelinda ied and insurance information reviewed will transport at DC, decline any concerns or DC needs.Plan to DC home today.[facility] Comment on above:Result Comment: Electronically Signed By: Cherelle TREVIZO, Callie\.br\Date and Time Signed: 09/23/23 10:51 ESTMain OR PACU I Recordon 51-46-9573Qnmp OR PACU I RecordPACU Phase I Document Type FT Summary Primary Physician: Igor FARFAN, Hui Pineda Finalized Date/Time: 09/23/23 10:12:11 Pt. Name: MOJGANAlessandroBARRY D.O.B./Sex: 1955 Male Med Rec #: [id number] Physician: Erwin VALADEZ DO Financial #: [id number] Pt. Type: O Room/Bed: 18/ Admit/Disch: 09/22/23 [...] individualized perioperative plan of care The patient's rightto privacy is maintained The patient's value system, [...] with or improved from baseline levels established preoperativelyThe patient's cardiovascular status is consistent with or improved from baseline levels established preoperatively The patient's cardiovascular status is consistent with or improved from baseline levels established preoperatively The patient demonstrates and/or reports adequate pain control throughout the perioperative period The patient received appropriate medication(s), safely administered during the perioperativeperiod Acuity Level PACU I FT Entry 1 Start Time 09/23/23 09:06:00 Stop Time 09/23/23 09:36:00 Acuity Level Acuity Level I Last Modified By: Niharika Solorzano RN 09/23/23 10:12:07 Finalized By: Niharika Solorzano RN Document Signatures Signed By: Niharika Solorzano RN 09/23/23 10:12[facility] HospitalMain OR Preoperative Recordon 06-59-9202Vxfm OR Preoperative RecordHolding Area Document Type FT Summary Primary Physician: Hui Costa MD Finalized Date/Time: 09/23/23 08:39:45 Pt. Name: BARRY GALDAMEZ/Sex: 1955 Male Med Rec #: [id number] Physician: Erwin VALADEZ DO Financial #: [id number] Pt. Type: O Room/Bed: N318/01 Admit/Disch: 09/22/23 [...] or her perioperative plan of care The patient'sright to privacy is maintained Surgery Checklist FT [...] Signatures Signed By: Mirta Gutiérrez RN 09/23/23 08:39NoPremier Health Miami Valley Hospital SouthMessage from Medicareon 37-82-6196Bvgexii from Medicare [id number]#1.00TIFFLancaster Municipal HospitalMonitor Recordon 41-18-6396Budsxlw Record [id number]#1.00TIFAccess Hospital Daytonitor [id number]#1.00TIFFNoOhio Valley Surgical HospitalPatient Education - Texton 41-08-3663Batsjbf Education - TextENT Swallowed Foreign Body, Adult A swallowed foreign body is an object that gets stuck in the digestive tract, either in the part ofthe body that moves food from the mouth [...] It is very important to tell your healthcare provider what you have swallowed. Some swallowed [...] if it does not pass through with medicine.Your health care provider will put medical instruments [...] Some objects that can cause damage include batteries,magnets, sharp objects, and drugs. Follow these instructions [...] after the procedure. General instructions ? Take yyhm-guq-ljegbpk and prescription medicines only as told by [...] see if the symptoms (more content not included)...NormalPaulding County HospitalTS With T4fr Reflexon 69-95-6836ZQJ Qn3.13 m[IU]/LNormal 0.34-5.60[facility] HospitalComment on above:Performed By: #### 3560746, 44536357, 85229422, 0375221 ####[facility] [address] [place] [address]sGWMgx 29-65-2288aZKF22 mL/min/1.73 a1Fqmwrs>=59 [facility] County HospitalComment on above:Order Comment: Order added by Discern Expert.Performed By: #### 0023096, 60843699, 76493522, 4055899 ####[facility] [address] [place] [address] Consent for Treatmenton 07-70-5888Wndhint for Treatment [id number]#1.00TIFFNormalFisher [facility] Medical CenterConsultation Noteon 34-33-9289Eyanbsxxirpf NotePatient: BARRY GALDAMEZ Age: 67 years Sex: Male : 1955 Associated Diagnoses: None Author: Ariana Urena PA-C Subjective Chief complaint 07/31/2023 10:04 EST Back Pain . Patient is a 67-year-old male. He presents today for follow-up after undergoing a left-sided L4-5 transforaminal epidural steroid injection. This was done on 06/25/2023 and gave 95% relief for 3 hoursbut unfortunate, it then went down to 10% [...] something else he can undergo to try toget some relief. Patient states that his doctor [...] day(s), # 135 tab(s), Refills(s) 1, Pharmacy: [facility]/pharmacy #[id number], 183, cm, 01/12/24 10:16:00 EST, Height/Length Dosing, 116, kg, 07/31/2409:16:00 EST, Weight Dosing Documented Medications Documented Co [...] All Problems HTN (hypertension) / SNOMED CT 2706374235 / Confirmed Hip pain, left / SNOMED CT 4931276386 / Confirmed DJD Nocturia / SNOMED CT 215022011 / Confirmed Asthma / SNOMED CT 048564628 / Confirmed Impingement syndrome of right shoulder / SNOMED CT 348499252 / Confirmed Carpal tunnel syndrome of right wrist / SNOMED CT 99136265 / Confirmed Osteoarthritis / SNOMED CT 1392743620 / Confirmed Arthritis / SNOMED CT 6336469 / Confirmed Depression / SNOMED CT 66027090 / Confirmed Hypertension / SNOMED CT 6860498610 / Confirmed Erectile dysfunction / SNOMED CT 2335242473 / Confirmed Asymptomatic microscopic hematuria / SNOMED CT 9642546537 / Confirmed Weak urine stream / SNOMED CT 419267662 / Confirmed Screening PSA (prostate specific antigen) / SNOMED CT 322768741 / Confirmed Resolved: At risk for falls / SNOMED CT 828428965 Problem added when Risk for Falls Careplan [...] hip flexion 5 -/5 Integumentary: Warm, Dry, [place]. Injection site well-healed Neurologic: Alert, Oriented. Psychiatric: [...] so he underwent a recent transforaminal epidural steroidinjection. Unfortunately, this did not give him any long-term relief. Significant short- term reliefbut nothing long-term. We reviewed his MRI. We discussed different options. I discussed with patient possible mild procedure. I would like to discuss his case with Dr. Willingham. I will have patient follow-up in 4 to 6 weeks after looking at some mild information and reviewing his case with Dr. Willingham. In the meantime, we discussed gabapen (more content not included)...Normal [facility] County HospitalComment on above:Result Comment: Electronically Signed By: Ariana Urena PA-C\.br\Date and Time Signed: 07/31/23 10:27 EST Legal Correspondence Officeon 05-11-9295Jsyaa Correspondence Office [id number]#1.00TIFSt. Elizabeth HospitalOffice/Clinic Note-Physicianon 03-69-0626Brzkaj/Clinic Note-Physician [id number]#1.00TIFSt. Elizabeth HospitalPatient Correspondenceon 55-82-2639Muakrus Correspondence [id number]#1.00TIFFLancaster Municipal HospitalPatient [id number]#1.00TIFF [facility] HospitalPatient Correspondence [id number]#1.00TIFFLancaster Municipal HospitalPatient [id number]#1.00TIFF [facility] HospitalPatient History Officeon 81-49-8506Bigybsv History [id number]#1.00TIFSt. Elizabeth HospitalConsent for Procedure/Surgeryon 11-44-9067Lqvdwuh for Procedure/[id number]#1.00TIFSt. Elizabeth HospitalConsent for Treatmenton 31-41-4267Kcsaynz for Treatment [id number]#1.00TIFSt. Elizabeth HospitalDischarge Instructionson 34-97-0581Djzpwrzbo Instructions [id number]#1.00TIFSt. Elizabeth HospitalIntraOperative Documentson 09-58-1109UtzghYxpqbcrfk Documents [id number]#1.00TIFSt. Elizabeth HospitalMain OR Intraoperative Recordon 11-44-0662Dgby OR Intraoperative Record IntraOp Document Type FT Summary Primary Physician: Neymar Willingham MD Finalized Date/Time: 06/25/23 13:41:33 Pt. Name: BARRY GALDAMEZ/Sex: 1955 Male Med Rec #: [id number] Physician: Neymar Willingham MD Financial #: [id number] Pt. Type: P Room/Bed: / Admit/Disch: 06/25/23 [...] RN, Nancy Role Performed Surgeon - Primary Drywall Stripper - Primary Scrub - Primary Time In 06/25/23 13:37:00 06/25/23 13:37:00 06/25/23 13:37:00 Time Out 06/25/23 13:42:00 06/25/23 13:42:00 06/25/23 13:42:00 Procedure TRANSFORAMINAL EPIDURAL TRANSFORAMINAL EPIDURAL TRANSFORAMINAL EPIDURAL STEROID INJECTIO(Left) STEROID INJECTIO(Left) STEROID INJECTIO(Left) Comments Last Modified By: Woodrow TREVIZO, Adry Troy RN, Adry Lawrence RN 06/25/23 13:41:29 06/25/23 13:41:29 06/25/23 13:41:29 Entry 4 Case Attendee Kimmy Chaney Role Performed Nitriles Lab Technician Time In 06/25/23 13:37:00 Time Out 06/25/23 [...] Time Out Adry Troy RN, Given Participants Smith RN, Tarsha Cruz MD, Shiv Pelletier Amy [...] and tissue Entry 1 Skin Integrity Intact, [place], Warm, and Skin Abnormality No Dry Outcomes [...] TREVIZO, Adry Brown Wi (more content not included)...[facility] Preoperative Recordon 15-82-9203Exfb OR Preoperative RecordHolding Area Document Type FTPM Summary Primary Physician: Neymar Willingham MD Finalized Date/Time: 06/25/23 13:18:07 Pt. Name: BARRY GALDAMEZO.B./Sex: 1955 Male Med Rec #: [id number] Physician: Neymar Willingham MD Financial #: [id number] Pt. Type: P Room/Bed: / Admit/Disch: 06/25/23 [...] or her perioperative plan of care The patient'sright to privacy is maintained Surgery Checklist FTPM [...] RN 06/25/23 13:18 Jennifer Mendieta RN 06/25/23 13:18[facility] HospitalOperative Reporton 06-56-0905Vjrxzqexm ReportPatient: BARRY GALDAMEZ Age: 67 years Sex: Male [...] procedure room and placed in the prone positionwith padding under the abdomen to reduce lumbar [...] injected through the needle. The needle was removedand a bandage applied. The patient was brought [...] 06/25/2023 13:09 EST Respiratory Rate 14 br/min .[facility] HospitalComment on above:Result Comment: Electronically Signed By: Tarsha FARFAN, Neymar Zelaya\.br\Date and Time Signed: 06/25/23 13:41 ESTPatient Correspondenceon 09-50-0753Vxgduig Correspondence [id number]#1.00TIFSt. Elizabeth HospitalInsurance Correspondence Officeon 27-08-0094Iztxqinqj Correspondence [id number]#1.00[facility] HospitalOffice/Clinic Note-Physicianon 90-10-3193Qujbpe/Clinic Note-[id number]#1.00TIFSt. Elizabeth HospitalConsent for Treatmenton 38-21-0913Vesgpiv for Treatment [id number]#1.00[facility] HospitalConsultation Noteon 45-30-6481Hhzvjiobrmri NotePatient: BARRY GALDAMEZ Age: 67 years Sex: Male [...] some pain on the left side only. Hestates that it goes down into his leg. [...] just not on the left side at thistime. He is still having pain that is [...] All Problems HTN (hypertension) / SNOMED CT 6080495189 / Confirmed Hip pain, left / SNOMED CT 3168242863 / Confirmed DJD Nocturia / SNOMED CT 673018313 / Confirmed Asthma / SNOMED CT 589834972 / Confirmed Impingement syndrome of right shoulder / SNOMED CT 153131364 / Confirmed Carpal tunnel syndrome of right wrist / SNOMED CT 67573156 / Confirmed Osteoarthritis / SNOMED CT 3303926610 / Confirmed Arthritis / SNOMED CT 7849802 / Confirmed Depression / SNOMED CT 64392844 / Confirmed Hypertension / SNOMED CT 7283590176 / Confirmed Erectile dysfunction / SNOMED CT 8622522802 / Confirmed Asymptomatic microscopic hematuria / SNOMED CT 1596793620 / Confirmed Weak urine stream / SNOMED CT 589383581 / Confirmed Screening PSA (prostate specific antigen) / SNOMED CT 663686982 / Confirmed Resolved: At risk for falls / SNOMED CT 182584427 Problem added when Risk for Falls Careplan [...] hip flexion 5 -/5 Integumentary: Warm, Dry, [place]. Injection site well-healed Neurologic: Alert, Oriented. Psychiatric: [...] enough for him. He is still having difficultywalking far distances and doing certain things. We once again reviewed his imaging. Based on his imaging findings, his pain pattern, and the significant pain that he is still experiencing I would recommend a left-sided L4-5 transforaminal epidural steroid injection under fluoroscopy for both diagnostic and therapeutic purposes. Procedure was discussed. Risk and benefits were discussed. Patient isagreeable. He will follow-up 2 weeks after the injection for reevaluation. Call clinic sooner if necessary. OARRS reviewed ANABELL score: 38%[facility] HospitalComment on above:Result Comment: Electronically Signed By: Ariana Urena PA-C\.br\Date and Time Signed: 06/05/23 11:22 EST\.br\Electronically Co-Signed By: Neymar Willingham MD\.br\Date and Time Co-Signed: 06/08/23 12:01 ESTOffice/Clinic Note-Physicianon 74-84-8608Xavhdz/Clinic Note-Physician [id number]#1.00[facility] Patient Correspondenceon 90-87-2078Fktdjwe Correspondence [id number]#1.00[facility] Patient [id number]#1.00[facility] HospitalPatient History Officeon 43-60-5222Tzjzdwz History [id number]#1.00[facility] HospitalConsent for Procedure/Surgeryon 77-45-9865Avpetad for Procedure/Surgery [id number]#1.00[facility] HospitalConsent for Treatmenton 51-36-6501Naibwaq for Treatment [id number]#1.00[facility] HospitalDischarge Instructionson 77-17-4057Exmrrgwgi Instructions [id number]#1.00[facility] HospitalIntraOperative Documentson 35-39-1718XnstxJcbfwneug Documents [id number]#1.00[facility] HospitalMain OR Intraoperative Recordon 89-87-1639Vbxh OR Intraoperative Record IntraOp Document Type FTPM Summary Primary Physician: Neymar Willingham MD Finalized Date/Time: 05/19/23 14:15:08 Pt. Name: BARRY GALDAMEZ Omayra Bryant/Sex: 1955 Male Med Rec #: [id number] Physician: Neymar Willingham MD Financial #: [id number] Pt. Type: P Room/Bed: / Admit/Disch: 05/19/23 13:34:40 - Institution: Case Times FTPM Entry 1 Patient Times In Room 05/19/23 14:09:00 Out Room 05/19/23 14:15:00 Procedure Times Start 05/19/23 14:12:00 Stop 05/19/23 14:14:00 Anesthesia Times Last Modified By: Adry Troy RN 05/19/23 14:14:29 Case Attendance FTPM Entry 1 Entry 2 Entry 3 Case Attendee Neymar Willingham MD, RN, Adry Alanis RN, Iwona Lillian Role Performed Surgeon - Primary Drywall Stripper - Primary Scrub - Primary Time In 05/19/23 14:09:00 05/19/23 14:09:00 05/19/23 14:09:00 Time Out 05/19/23 14:15:00 05/19/23 14:15:00 05/19/23 14:15:00 Procedure LUMBAR EPIDURAL STEROID LUMBAR EPIDURAL STEROID LUMBAR EPIDURAL STEROID INJECTION(.) INJECTION(.) INJECTION(.) Comments Last Modified By: Woodrow TREVIZO, Adry Troy RN, Adry Lawrence RN 05/19/23 14:14:30 05/19/23 14:14:30 05/19/23 14:14:30 Entry 4 Case Attendee Nakul Montes Role Performed Nitriles Lab Technician Time In 05/19/23 14:09:00 Time Out 05/19/23 [...] and tissue Entry 1 Skin Integrity Intact, [place], Warm, and Skin Abnormality No Dry Outcomes [...] By: Kip Troy RN (more content not included)...[facility] Preoperative Recordon 64-69-1198Npll OR Preoperative RecordHolding Area Document Type FTPM Summary Primary Physician: Neymar Willingham MD Finalized Date/Time: 05/19/23 13:52:06 Pt. Name: DENICE BARRYEMERITA Eckert D.O.B./Sex: 1955 Male Med Rec #: [id number] Physician: Neymar Willingham MD Financial #: [id number] Pt. Type: P Room/Bed: / Admit/Disch: 05/19/23 [...] or her perioperative plan of care The patient'sright to privacy is maintained Surgery Checklist FTPM [...] Signatures Signed By: Jennifer Mendieta RN 05/19/23 13:52NoPremier Health Miami Valley Hospital SouthOperative Report on 78-08-2194Sloyfybeo ReportPatient: BARRY GALDAMEZ Age: 67 years Sex: Male [...] procedure room and placed in the prone positionwith padding under the abdomen to reduce lumbar [...] 05/19/2023 13:40 EDT Respiratory Rate 14 br/min .[facility] HospitalComment on above:Result Comment: Electronically Signed By: Tarsha FARFAN, Neymar Longo.br\Date and Time Signed: 05/19/23 14:14 EDTPatient Correspondenceon 13-57-6592Snpbnjg Correspondence [id number]#1.00CD:[address] [place], [place] [address]Insurance Correspondence Officeon 02-49-3775Xzzimvook Correspondence [id number]#1.00CD:[address] [place], [place] [address]Consent for Treatmenton 92-32-9852Qbfiqfc for Treatment [id number]#1.00CD:[address] [place], [place] [address]Consultation Noteon 14-63-1968Jhafsrzazjnu NotePatient: BARRY GALDAMEZ Age: 67 years Sex: Male [...] baseline. It is in the lower back an d left greater than right leg. He rates [...] All Problems HTN (hypertension) / SNOMED CT 8686679830 / Confirmed Hip pain, left / SNOMED CT 2338478929 / Confirmed DJD Nocturia / SNOMED CT 297891228 / Confirmed Asthma / SNOMED CT 138669639 / Confirmed Impingement syndrome of right shoulder / SNOMED CT 872117823 / Confirmed Carpal tunnel syndrome of right wrist / SNOMED CT 65537255 / Confirmed Osteoarthritis / SNOMED CT 7961926551 / Confirmed Arthritis / SNOMED CT 9222075 / Confirmed Depression / SNOMED CT 09588113 / Confirmed Hypertension / SNOMED CT 2608120977 / Confirmed Erectile dysfunction / SNOMED CT 8368793777 / Confirmed Asymptomatic microscopic hematuria / SNOMED CT 3854542709 / Confirmed Weak urine stream / SNOMED CT 623756130 / Confirmed Screening PSA (prostate specific antigen) / SNOMED CT 354384142 / Confirmed Resolved: At risk for falls / SNOMED CT 249269718 Problem added when Risk for Falls Careplan [...] seated straight leg raise. Integumentary: Warm, Dry, [place]. Neurologic: Alert, Oriented. Psychiatric: Cooperative, Appropriate mood [...] he did well with the previous epidural Idiscussed with patient repeating the L5-S1 epidural steroid injection under fluoroscopy for both diagnostic and therapeutic purposes. MRI was reviewed. He has failed all reasonable conservative treatments. The most improvement he has ever gotten has been from the epidural. He wants to try and avoidsurgery at all costs so we will repeat the injection. Follow-up 3 weeks after for reevaluation. Call the clinic sooner if necessary. ANABELL score: 60%NormalPaulding County HospitalComment on above:Result Comment: Electronically Signed By: Ariana Urena PA-C\.br\Date and Time Signed: 04/08/23 13:30 EDT\.br\Electronically Co-Signed By: García Castro DO\.br\Date and Time Co-Signed: 04/14/23 11:06 EDTOffice/Clinic Note-Physicianon 61-00-1585Iadkkl/Clinic Note-Physician [id number]#1.00CD:127[facility] HospitalPatient Correspondenceon 21-82-5614Asatqat Correspondence [id number]#1.00CD:127[facility] HospitalPatient [id number]#1.00CD:127 [facility] HospitalPatient History Officeon 95-45-7839Ltjyzox History [id number]#1.00CD:127[facility] HospitalOffice Visit (Cardiology)on 24-31-3685Fifcxn-up visit Diagnoses/Problems Assessed Coronary artery disease involving nenana coronary artery of nenana heart without angina pectoris (414.01) (I25.10) Hypertension, [...] Authorization; Done: 26Mar2023 Coronary artery disease involving nenana coronary artery of nenana heart without angina pectoris Start: Clopidogrel Bisulfate [...] In November 2021 he underwent non-ST elevation TX with primary revascularization of the LAD diagonal branch performed by Dr. Dunn, utilizing a 2.5 x 34 mm Silver Star stent to the distal LAD, 2.75 x 18 mm Silver Star stent in the mid LAD, and a 2.25 x 18 mm Silver Star stent to the diagonal branch at the [...] TABLET UNDER THE TONGUE EVERY 5 MINUTES UPTO 3 DOSES NEEDED FOR CHEST PAIN. Tadalafil [...] Recorded: 26Mar2023 11:21AM Heart Rate64, R Radial Xsooxqij012, LUE, Sitting Tjladqdiv62, LUE, Sitting Height6 ft Cchbhd315 lb BMI Wtzuhwazgi30.99 kg/m2 BSA Calculated2.37 Tobacco Useb) No PHQ-2 #1. Over the last 2 weeks have you felt down, depressed or hopeless? (If yes, answer PHQ-9 below)No PHQ-2 #2. Over the last 2 weeks have you felt little intere (more content not included)...NormalUH TouchworksTobacco Screening.on 45-89-9077Liiou depression screening assessmentNoJefferson Healthcare Hospital [address] DO Work Phone: Fall risk assessmenta) No falls within the last year [facility] [employer] DO Work Phone: Tobacco use status CPHSb) NoMLourdes Counseling Center SurgeryEdu DO Work Phone: Office Visit (Cardiology)on 53-28-7151Godoyl-up visit Diagnoses/Problems Assessed Hypertension, benign (401.1) (I10) Class 1 obesity with body mass index (BMI) of 34.0 to 34.9 in adult (278.00,V85.34) (E66.9,Z68.34) Orders Class 1 obesity with body mass index (BMI) of 34.0 to 34.9 in adult Healthy Weight Tips; Status:Complete; Done: 11Oub0912 Patient Instructions PLAN: Through informed decision making process incorporating patients unique circumstances, the followingtreatment plan will be initiated: 1. Prescription drug [...] 160 mg daily. Patient has been compliant withdosing. He denies any type of side effects including dizziness or lightheadedness. He follows his blood pressure routinely at home and systolic blood pressures have been consistently below 125. Bloodpressure remains optimal in the office today. Otherwise, [...] TABLET UNDER THE TONGUE EVERY 5 MINUTES UPTO 3 DOSES NEEDED FOR CHEST PAIN. Tadalafil [...] and no PND. Vitals Vital Signs Recorded: 41Zkj2290 01:07PM Heart Rate66, R Radial Wxhdlabf928, RUE, Sitting Evinhkcsm11, RUE, Sitting Height6 ft Kindqt029 lb BMI Cxffawxhpr17.72 kg/m2 BSA Calculated2.37 Tobacco Useb) No Falls [...] mood and affect . (more content not included)...NormalUH TouchworksOffice Visit (Cardiology)on 73-88-4757Ompwxb-up visitDiagnoses/Problems Assessed Coronary artery disease involving nenana coronary artery of nenana heart without angina pectoris (414.01) (I25.10) History [...] TABLET UNDER THE TONGUE EVERY 5 MINUTES UPTO 3 DOSES NEEDED FOR CHEST PAIN. Prasugrel [...] Signs Recorded: 18Sep2022 12:00PMRe (more content not included)...NormalUH Touchworks Tobacco Screening.on 37-01-5899Dbhvl depression screening assessmentNoJefferson Healthcare Hospital [address] DO Work Phone: Fall risk assessmenta) No falls within the last year [facility] [address] DO Work Phone: Tobacco use status CPHSb) NoMLourdes Counseling Center SurgeryEdu DO Work Phone: MRI LSPINE WO CONon 37-01-4281AYQ LSPINE WO CON EXAMINATION: MRI LSPINE WO [...] Electronically authenticated by: NATACHA RENDON Date: 2022-05-22 19:43[facility] HospitalXR FOREIGN BODY EYEon 80-25-0916ZC FOREIGN BODY EYEEXAMINATION: XR FOREIGN BODY EYE HISTORY: Foreign body in eye COMPARISON: No relevant comparison available. FINDINGS: ORBITS: Negative for a metallic foreign body. OTHER: Negative. IMPRESSION: No metallic foreign body in the orbits Electronically authenticated by: NATACHA RENDON Date: 2022-05-22 14:05[facility] HospitalCULTURE BLOODon 10-76-0009Bdyhzupbhuj examination of blood, cultureCulture Observations: Anaerobic bottle only positive Culture Observations: BCID- Staph epidermidis Culture Observations: NO GROWTH AT 5 DAYS IN AEROBIC BOTTLE. Culture Observations: METHICILLIN RESISTANT STAPH EPIDERMIDIS ISOLATED. PLEASE FOLLOW APPROPRIATE ISOLATION PROCEDURES. Culture Observations: FAXED RESULT TO [facility] 04/28 @ 1019 Isolate 1 Staphylococcus epidermidis Growth of ORGANISM 1 Staphylococcus epidermidis ANTIBIOTIC M.I.C RX STATUS Beta-Lactamase Neg NEG F Cefoxitin Screen Pos POS F Benzylpenicillin >=0.5 R F Ciprofloxacin <=0.5 S F Levofloxacin <=0.12 S F Inducible Clindamycin Resistance Neg NEG F Erythromycin >=8 R F Clindamycin >=8 R F Quinupristin/Dalfopristin <=0.25 S F Linezolid 1 S F Vancomycin 2 S F Tetracycline 2 S F Rifampicin <=0.5 S F Trimethoprim/Sulfamethoxazole <=10 S F Oxacillin >=4 R FNormalThe [facility] NorthComment on above:Performed By: #### HSTROPN #### [facility] [address] [place] [address] Dr. Troy Rodney CULTURE ID PANELon 04-25-2022. baumanniiNot detectedNormal NOT DETECTEDThe [facility] NorthComselect specialty hospital[facility] on above:Performed By: #### BCID2 #### [facility] [address] [place] [address] Dr. Troy newNot detectedNormalNOT DETECTEDThe [facility] NorthComselect specialty hospital[facility] on above:Performed By: #### BCID2 #### [facility] [address] [place] [address] Dr. Troy Leiva CONTROLSPASSPremier Health Miami Valley Hospital SouthComment on above: Performed By: #### BCID2 #### [facility] [address] [place] [address] Dr. Troy LeivaBTHDBLOOD CULTURE BOTTLE [facility] HospitalComselect [facility] on above:Performed By: #### BCID2 #### [facility] [address] [place] [address] Dr. Troy LeivaLrcocKXEYJY7PTLFCMCBUXZIA RESISTANCE GENESMartin Memorial Hospital Comment on above:Performed By: #### BCID2 #### [facility] [address] [place] [address] Dr. Troy LeivaHD2SEE [facility] Medical CenterComment on above: Result Comment: Note: Antimicrobial resitance can occur via multiple mechanisms. A Not Detected result for the Film[employer] antomicrobial resistance gene assays does not indicate antimicrobial susceptibility. Subculturing is required for species identification and susceptibility testing of isolates.Performed By: #### BCID2 #### [facility] [address] [place] [address] Dr. Troy LeivaLwbihWBPCNX4YqdlwhqaRltqjtLliDayton VA Medical CenterComment on above: Performed By: #### BCID2 #### [facility] [address] [place] [address] Dr. Troy LeivaFuxvsHQDLCQ3AfkryniuTlvybtMqz [facility] HospitalComment on above: Performed By: #### BCID2 #### [facility] [address] [place] [address] Dr. Troy LeivaMazahGWWRJK2BMSSSTjzykyXppMemorial Health System Selby General HospitalComment on above:Performed By: #### BCID2 #### [facility] [address] [address] [address] Troy Norman Set:Set 2NormalThe [facility] NorthComment on above: Performed By: #### BCID2 #### [facility] [address] [address] [address] Troy Norman:AnaerobicNormalThe [facility] NorthComment on above: Performed By: #### BCID2 #### [facility] [address] [address] [address] Troy Juares. neoformans/gattiiNot detectedNormalNOT DETECTEDThe [facility] NorthComment on above:Performed By: #### BCID2 #### [facility] [address] [address] [address] Troy Shaffer albicansNot detectedNormalNOT DETECTEDThe [facility] NorthComment on above:Performed By: #### BCID2 #### [facility] [address] [address] [address] Troy Shaffer aurisNot detectedNormalNOT DETECTEDThe [facility] Comment on above:Performed By: #### BCID2 #### [facility] [address] [place] [address] Dr. Troy Shaffer glabrataNot detectedNormalNOT DETECTEDThe [facility] NorthComment on above:Performed By: #### BCID2 #### [facility] [address] [address] [address] Troy Shaffer KruseiNot detectedNormalNOT DETECTEDNorwalk Memorial Hospital Comment on above:Performed By: #### BCID2 #### [facility] [address] [place] [address] Dr. Troy Shaffer ParapsilosisNot detectedNormalNOT DETECTEDThe [facility] NorthComment on above:Performed By: #### BCID2 #### [facility] [address] [place] [address] Dr. Troy Shaffer TropicalisNot detectedNormalNOT DETECTEDThe [facility] NorthComment on above:Performed By: #### BCID2 #### [facility] [address] [address] [address] Troy HickeyCTX-M Resistant GeneNot ApplicableNormalNOT DETECTEDThe [facility] NorthComment on above:Performed By: #### BCID2 #### [facility] [address] [address] [address] Troy Segundo. Cloacae complexNot detectedNormalNOT DETECTEDThe [facility] NorthComment on above:Performed By: #### BCID2 #### [facility] [address] [address] [address] Troy Segundo. faecalisNot detectedNormalNOT DETECTEDThe [facility] Comment on above:Performed By: #### BCID2 #### [facility] [address] [address] [address] Troy Segundo. faeciumNot detectedNormalNOT DETECTEDThe [facility] Comment on above:Performed By: #### BCID2 #### [facility] [address] [address] [address] Troy SegundonterobacteriaceaeNot detectedNormalNOT DETECTEDThe [facility] NorthComment on above:Performed By: #### BCID2 #### [facility] [address] [place] [address] Dr. Troy Munozichia coliNot detectedNormalNOT DETECTEDThe [facility] NorthComselect specialty hospital-[place] on above:Performed By: #### BCID2 #### [facility] [address] [address] [address] Troy Curry. influenzaeNot detectedNormalNOT DETECTEDThe [facility] Comment on above:Performed By: #### BCID2 #### [facility] [address] [address] [address] Troy Duran Resistant GeneNot ApplicableNormalNOT DETECTEDThe [facility] NorthComselect specialty hospital-[facility] on above:Performed By: #### BCID2 #### [facility] [address] [address] [address] Troy Ballard. oxytocaNot detectedNormalNOT DETECTEDThe [facility] Comment on above:Performed By: #### BCID2 #### [facility] [address] [address] [address] Troy Ballard. pneumoniaeNot detectedNormalNOT DETECTEDThe [facility] Comment on above:Performed By: #### BCID2 #### [facility] [address] [address] [address] Troy Lopez aerogenesNot detectedNormalNOT DETECTEDThe [facility] NorthComment on above:Performed By: #### BCID2 #### [facility] [address] [address] [address] Troy Evangelista Resistant GeneNot detectedNormalNOT DETECTEDThe [facility] NorthComment on above:Performed By: #### BCID2 #### [facility] [address] [place] [address] Dr. Troy Magaña. monocytogenesNot detectedNormalNOT DETECTEDThe [facility] NorthComment on above:Performed By: #### BCID2 #### [facility] [address] [place] [address] Dr. Troy Davisr-1 Resistant GeneNot ApplicableNormalNOT DETECTEDThe [facility] NorthComment on above:Performed By: #### BCID2 #### [facility] [facility] [address] [place] [address] Dr. Troy Garcia/CDetectedAbnormalNOT DETECTEDThe [facility]Comment on above:Performed By: #### BCID2 #### [facility] [address] [place] [address] Dr. Troy Garcia/C MREJNot ApplicableNormalNOT DETECTEDThe [facility] Comment on above:Performed By: #### BCID2 #### [facility] [address] [place] [address] Dr. Troy Mancuso. meningitidisNot detectedNormalNOT DETECTEDThe [facility] [place] NorthComment on above:Performed By: #### BCID2 #### [facility] [address] [place] [address] Dr. Troy Arrieta Resistant GeneNot ApplicableNormalNOT DETECTEDThe [facility]Com[facility] on above:Performed By: #### BCID2 #### [facility] [address] [address] [address] Troy WebberNtgkzTqn-59-jrtsMyu ApplicableNormalNOT DETECTEDThe [facility] Comment on above:Performed By: #### BCID2 #### [facility] [address] [address] [address] Troy HickeyProteusNot detectedNormalNOT DETECTEDThe [facility]Comment on above:Performed By: #### BCID2 #### [facility] [address] [address] [address] Troy Ríos. aeruginosaNot detectedNormalNOT DETECTEDThe [facility]Comment on above:Performed By: #### BCID2 #### [facility] [address] [address] [address] Troy Yoo. maltophiliaNot detectedNormalNOT DETECTEDThe [facility] Comment on above:Performed By: #### BCID2 #### [facility] [address] [address] [address] Troy HickeySalmonellaNot detectedNormalNOT DETECTEDNor[facility] Comment on above:Performed By: #### BCID2 #### [facility] [address] [address] [address] Troy Brooks marcescensNot detectedNormalNOT DETECTEDThe [facility] on above:Performed By: #### BCID2 #### [facility] [address] [place] [address] Dr. Troy Stewart:right armNormalThe [facility] [place] NorthComment on above: Performed By: #### BCID2 #### [facility] [address] [place] [address] Dr. Troy Rubalcava. aureusNot detectedNormalNOT DETECTEDThe [facility] Comment on above:Performed By: #### BCID2 #### [facility] [address] [address] [address] Troy Rubalcava. epidermidisDetectedAbnormalNOT DETECTEDThe [facility] on above:Performed By: #### BCID2 #### [facility] [address] [address] [address] Troy Rubalcava. lugdunensisNot detectedNormalNOT DETECTEDThe [facility] [place] [facility]Comment on above:Performed By: #### BCID2 #### [facility] [address] [place] [address] Dr. Troy OrrococcusDetectedAbnormalNOT DETECTEDThe [facility] Comment on above:Performed By: #### BCID2 #### [facility] [address] [place] [address] Dr. Troy Shelley. agalactiaeNot detectedNormalNOT DETECTEDThe [facility] on above:Performed By: #### BCID2 #### [facility] [address] [place] [address] Dr. Troy Shelley. pneumoniaeNot detectedNormalNOT DETECTEDThe [facility]Com[facility] on above:Performed By: #### BCID2 #### [facility] [address] [place] [address] Dr. Troy Shelley. pyogenesNot detectedNormalNOT DETECTEDThe [facility] [place] [facility]Comment on above:Performed By: #### BCID2 #### [facility] [address] [place] [address] Dr. Troy ShelleytococcusNot detectedNormalNOT DETECTEDThe [facility] Comment on above:Performed By: #### BCID2 #### [facility] [address] [place] [address] Dr. Troy Perez/Blair Resist. GeneNot detectedNormalNOT DETECTEDThe [facility]Com[facility] on above:Performed By: #### BCID2 #### [facility] [address] [place] [address] Dr. Troy Gold Resistant GeneNot ApplicableNormalNOT DETECTEDThe [facility]Com[facility] on above:Performed By: #### BCID2 #### [facility] [address] [place] [address] Dr. Troy Lora [id number] peptide B (Bld) [Mass/Vol]239.0 pg/mL Normal<=900.0The [facility]aitanya HospitalComment on above:Performed By: #### BNP, HSTROPN, CMP #### [facility] [address] [place] [address] Dr. Troy Rojas AUTO DIFFon 60-65-7644FXGS #0.1 103/ulNormal0.0-0.1The [facility] [place] NorthComment on above:Performed By: #### HSTROPN #### [facility] [address] [place] [address] Dr. Troy HickeyBasophils/100 WBC (Bld)0.3 %Normal0.2-2.0The [facility] Comment on above:Performed By: #### HSTROPN #### [facility] [address] [place] [address] Dr. Troy Saab #0.0 103/ulNormal0.0-0.7The [facility] [place] NorthComment on above: Performed By: #### HSTROPN #### [facility] [address] [place] [address] Dr. Troy Segundoosinophils/100 WBC (Bld)0.1 %Critically low0.9-7.0The [facility] Hospitalment on above:Performed By: #### HSTROPN #### [facility] [address] [place] [address] Dr. Troy Segundorythrocyte distribution width (RBC) [Ratio]13.5 %Zynilu85.0-15.0 The [facility]Comment on above:Performed By: #### HSTROPN #### [facility] [address] [place] [address] Dr. Troy HickeyHematocrit (Bld) [Volume fraction]33.0 %Critically low42.0-54.0 The [facility] NorthComment on above:Performed By: #### HSTROPN #### [facility] [address] [place] [address] Dr. Troy HickeyHemoglobin (Bld) [Mass/Vol]10.4 g/dLCritically low14.0-18.0The [facility] [place] [facility]Comment on above:Performed By: #### HSTROPN #### [facility] [address] [address] [address] Troy Elliott #0.08 10e3/ulCritically high0.00-0.03The [facility] Comment on above:Performed By: #### HSTROPN #### [facility] [address] [address] [address] Troy Elliott %0.5 %Normal0.0-0.5The [facility] [place] [facility]Comment on above: Performed By: #### HSTROPN #### [facility] [address] [place] [address] Dr. Troy Valiente #0.8 103/ulCritically low1.2-3.8The [facility] Comment on above:Performed By: #### HSTROPN #### [facility] [address] [place] [address] Dr. Troy Zaidihocytes/100 WBC (Bld)4.3 %Critically low20.5-60.0The [facility] NorthComment on above:Performed By: #### HSTROPN #### [facility] [address] [place] [address] Dr. Troy AntonioUAL DIFF REQNONormalThe [facility] [place] NorthComment on above: Performed By: #### HSTROPN #### [facility] [address] [place] [address] Dr. Troy Munoz (RBC) [Entitic mass]25.3 pgCritically low25.9-34.0The [facility] [place] NorthComment on above:Performed By: #### HSTROPN #### [facility] [address] [place] [address] Dr. Troy Davis (RBC) [Mass/Vol]31.5 g/fRVdwpja80.9-35.2The [facility]Comment on above:Performed By: #### HSTROPN #### [facility] [address] [place] [address] Dr. Troy Davis (RBC) [Entitic vol]80.3 xCSrabpu06.0-94.0The [facility] NorthComment on above:Performed By: #### HSTROPN #### [facility] [address] [place] [address] Dr. Troy Valentin #0.6 103/ulNormal0.3-0.8The [facility] on above:Performed By: #### HSTROPN #### [facility] [address] [place] [address] Dr. Troy Casianoocytes/100 WBC (Bld)3.4 %Normal1.7-12.0The [facility] Comment on above:Performed By: #### HSTROPN #### [facility] [address] [place] [address] Dr. Troy Mckee #16.0 103/ulCritically high1.4-6.5The [facility] Comment on above:Performed By: #### HSTROPN #### [facility] [address] [place] [address] Dr. Troy Phanutrophils/100 WBC (Bld)91.4 %Critically high43.0-75.0The [facility]Comment on above:Performed By: #### HSTROPN #### [facility] [address] [place] [address] Dr. Troy Wray mean volume (Bld) [Entitic vol]8.9 fLCritically low 9.5-13.5The [facility]Comment on above:Performed By: #### HSTROPN #### [facility] [address] [place] [address] Dr. Troy HickeyPLT269 103/nkBvcxhy684-630Kmy [facility] NorthComment on above: Performed By: #### HSTROPN #### [facility] [address] [place] [address] Dr. Troy HickeyRBC4.11 106/ulCritically low4.70-6.10The [facility]Comment on above:Performed By: #### HSTROPN #### [facility] [address] [place] [address] Dr. Troy HickeyWBC17.5 103/ulCritically high4.0-11.0The [facility]Comment on above:Performed By: #### HSTROPN #### [facility] [address] [place] [address] Dr. Troy Abarca BLOODon 25-24-7309Ukruidadwtk examination of blood, cultureCulture Observations: NO GROWTH AT 5 DAYS.NormalThe [facility] NorthComment on above:Performed By: #### HSTROPN #### [facility] [address] [place] [address] Dr. Troy HickeyCovid-19 PCR (CVDTBH)on 30-82-2447EZZH-CoV-2 (COVID-19) RNA ERNIE+probe Ql (Unsp spec)Not detectedNormalNOT DETECTEDThe [facility] Comment on above:Result Comment: When diagnostic testing is negative, the [...] for this test is supported by the [employer] of Health and Human Service's declaration that circumstances exist to justify the emergency use of in vitro diagnostics for the detection and/or diagnosis of the virus that causes COVID-19. This EUA will remain in effect for the duration of the COVID-19 declaration justifying emergency of IVDs, unless it is terminated or revoked by the FDA (after which the test may no longer be used).Performed By: #### CVDTBH #### [facility] [address] [place] [address] Dr. Troy HickeyINFLUENZA A AND B AGon 47-54-6951WOPGLDHGP A AGNegativeNormal NEGATIVE SEE COMMENTThe [facility] NorthComment on above:Performed By: #### INFLUAB #### [facility] [address] [place] [address] Dr. Troy Pinto AGNegativeNormalNEGATIVE SEE COMMENTThe [facility] Hospitalment on above:Performed By: #### INFLUAB #### [facility] [address] [place] [address] Dr. Troy HickeyINTERNAL CONTROLSWithin Normal LimitsNormalWithin Normal Limits The [facility]Comment on above:Performed By: #### INFLUAB #### [facility] [address] [place] [address] Dr. Troy HickeyLACTATE/LACTIC ACIDon 55-21-4960Mfgvyzo [Moles/Vol]1.5 mmol/L Normal0.4-1.9The [facility]Comment on above:Performed By: #### LACT #### [facility] [address] [place] [address] Dr. Troy HickeyPROF 14(COMP METB)on 63-46-2269Yiawhfb [Mass/Vol]3.6 g/dLNormal 3.4-5.0The [facility]ment on above:Performed By: #### BNP, HSTROPN, CMP #### [facility] [address] [place] [address] Dr. Troy HikceyAlbumin/Globulin [Mass ratio]0.8 {ratio}NormalThe [facility] on above:Performed By: #### BNP, HSTROPN, CMP #### [facility] [address] [place] [address] Dr. Troy Prado [Catalytic activity/Vol]144 U/LCritically hubt23-319Kaf [facility] on above:Performed By: #### BNP, HSTROPN, CMP #### [facility] [address] [place] [address] Dr. Troy Ortega [Catalytic activity/Vol]17 U/OFxisvu44-18Vtp [facility] NorthComment on above:Performed By: #### BNP, HSTROPN, CMP #### [facility] [address] [place] [address] Dr. Troy Simms gap [Moles/Vol]9.0 mmol/LNormalThe [facility]Comment on above:Performed By: #### BNP, HSTROPN, CMP #### [facility] [address] [place] [address] Dr. Troy HickeyAST [Catalytic activity/Vol]15 U/NWlfjsg12-21Anp [facility]Comment on above:Performed By: #### BNP, HSTROPN, CMP #### [facility] [address] [place] [address] Dr. Troy HickeyBilirubin [Mass/Vol]0.7 mg/dLNormal0.2-1.0The [facility] Comment on above:Performed By: #### BNP, HSTROPN, CMP #### [facility] [address] [place] [address] Dr. Troy HickeyCalcium [Mass/Vol]9.0 mg/dLNormal8.5-10.1The [facility] Comment on above:Performed By: #### BNP, HSTROPN, CMP #### [facility] [address] [place] [address] Dr. Troy HickeyChloride [Moles/Vol]101 mmol/DYpkxkv72-693Hxt [facility] Comment on above:Performed By: #### BNP, HSTROPN, CMP #### [facility] [address] [place] [address] Dr. Troy HickeyCO2 [Moles/Vol]29.0 mmol/CBdatfz59.0-32.0The [facility] Comment on above:Performed By: #### BNP, HSTROPN, CMP #### [facility] [address] [place] [address] Dr. Troy HickeyCreatinine [Mass/Vol]0.94 mg/dLNormal0.70-1.30The [facility]Comment on above:Performed By: #### BNP, HSTROPN, CMP #### [facility] [address] [place] [address] Dr. Simmons ChangEGFR-AF MALDIVIAN>60Normal>=60The [facility] on above:Performed By: #### BNP, HSTROPN, CMP #### [facility] [address] [place] [address] Dr. Troy SegundoGFR-NON AF MALDIVIAN>60Normal>=60The [facility]Comment on above:Performed By: #### BNP, HSTROPN, CMP #### [facility] [address] [place] [address] Dr. Troy HickeyGlobulin (S) [Mass/Vol]4.3 g/dLNormalThe [facility]Comment on above:Performed By: #### BNP, HSTROPN, CMP #### [facility] [address] [place] [address] Dr. Troy HickeyGlucose [Mass/Vol]187 mg/dLCritically ncvt35-220Zml [facility]Comment on above:Performed By: #### BNP, HSTROPN, CMP #### [facility] [address] [place] [address] Dr. Troy HickeyPotassium [Moles/Vol]4.0 mmol/LNormal3.5-5.1The [facility] Comment on above:Performed By: #### BNP, HSTROPN, CMP #### [facility] [address] [place] [address] Dr. Troy HickeyProtein [Mass/Vol]7.9 g/dLNormal6.4-8.2The [facility] Comment on above:Performed By: #### BNP, HSTROPN, CMP #### [facility] [address] [place] [address] Dr. Troy HickeySodium [Moles/Vol]135 mmol/LCritically pcn113-126Qgx [facility]Comment on above:Performed By: #### BNP, HSTROPN, CMP #### [facility] [address] [place] [address] Dr. Troy HickeyUrea nitrogen [Mass/Vol]15.0 mg/dLNormal7.0-18.0The [facility] NorthComment on above:Performed By: #### BNP, HSTROPN, CMP #### [facility] [address] [address] [address] Troy HickeyUrea nitrogen/Creatinine [Mass ratio]16.0 mg/mgNoKettering Health SpringfieldComment on above:Performed By: #### BNP, HSTROPN, CMP #### [facility] [address] [place], [place] [address] Dr. Troy HillOPONIShani, HIGH SENSITIVITYon 76-98-6148LMKYUN98.1 pg/mLNormal 4.0-76.1The [facility]Comselect [facility] on above:Result Comment: CUT-OFF POINTS HAVE BEEN ESTABLISHED BASED ON THE FOURTH UNIVERSAL DEFINITIONS OF MYOCARDIAL INFARCTION. THE UPPER REFERENCE LIMIT (URL) OF TROPONIN, DEFINED THE 99TH PERCENTILE OF cTnI DISTRIBUTION IN A REFERENCE POPULATION, HAS BEEN CONFIRMED THE DECISION THRESHOLD FOR TX DIAGNOSIS.Performed By: #### BNP, HSTROPN, CMP #### [facility] [address] [address] [address] Troy HickeyXR CHEST 1 Von [id number] CHEST 1 VEXAM: Portable chest REASON FOR EXAM: Cough and [...] Electronically authenticated by: SANDER MOCTEZUMA Date: 2022-04-25 15:38[facility] Von [id number] CHEST 2 VEXAMINATION: XR CHEST 2 V HISTORY: Cough , [...] Electronically authenticated by: JEAN-PAUL SALAS Date: 2022-04-23 11:36[facility]XR LSPINE MIN 4 VIEWSon 09-04-1813KH LSPINE MIN 4 VIEWS EXAMINATION: XR LSPINE [...] Electronically authenticated by: JEAN-PAUL SALAS Date: 2022-04-02 15:11[facility] HospitalTobacco Screening.on 28-09-3629Agiuvbd use status CPHSb) [facility] DO Work Phone: PROT 14(COMP METB)on 51-58-0855Nquuebu [Mass/Vol]3.5 g/dLNormal3.4-5.0The [facility]Comment on above:Performed By: #### CMP #### [facility] [address] [address] [address] Troy HickeyAlbumin/Globulin [Mass ratio]0.9 {ratio}NormalThe [facility] NorthComment on above:Performed By: #### CMP #### [facility] [address] [address] [address] Troy Prado [Catalytic activity/Vol]104 U/UYomnlw83-802Xuo [facility] NorthComment on above:Performed By: #### CMP #### [facility] [address] [address] [address] Troy Ortega [Catalytic activity/Vol]19 U/RRzwaei81-03Jtd [facility] NorthComment on above:Performed By: #### CMP #### [facility] [address] [place] [address] Dr. Troy Simms gap [Moles/Vol]11.7 mmol/LNormalThe [facility] Comment on above:Performed By: #### CMP #### [facility] [address] [address] [address] Troy HickeyAST [Catalytic activity/Vol]9 U/LCritically izv49-19Qvp [facility] NorthComment on above:Performed By: #### CMP #### [facility] [address] [address] [address] Troy HickeyBilirubin [Mass/Vol]0.4 mg/dLNormal0.2-1.0The [facility] Comment on above:Performed By: #### CMP #### [facility] [address] [address] [address] Troy HickeyCalcium [Mass/Vol]8.7 mg/dLNormal8.5-10.1The [facility] Comment on above:Performed By: #### CMP #### [facility] [address] [address] [address] Troy HickeyChloride [Moles/Vol]104 mmol/FCfades78-794Llf [facility] Comment on above:Performed By: #### CMP #### [facility] [address] [address] [address] Troy HickeyCO2 [Moles/Vol]28.9 mmol/RWrsgoh23.0-32.0The [facility] Comment on above:Performed By: #### CMP #### [facility] [address] [address] [address] Troy HickeyCreatinine [Mass/Vol]1.02 mg/dLNormal0.70-1.30The [facility] NorthComment on above:Performed By: #### CMP #### [facility] [address] [address] [address] Troy SegundoGFR-AF MALDIVIAN>60Normal>=60The [facility] NorthComment on above:Performed By: #### CMP #### [facility] [address] [address] [address] Troy SegundoGFR-NON AF MALDIVIAN>60Normal>=60The [facility] NorthComment on above:Performed By: #### CMP #### [facility] [address] [address] [address] Troy HickeyGlobulin (S) [Mass/Vol]3.8 g/dLNormParkwood HospitalComment on above:Performed By: #### CMP #### [facility] [address] [address] [address] Troy HickeyGlucose [Mass/Vol]121 mg/dLCritically lshe41-730Fwg [facility] NorthComment on above:Performed By: #### CMP #### [facility] [facility] [address] [address] [address] Troy HickeyPotassium [Moles/Vol]4.6 mmol/LNormal3.5-5.1The [facility] Comment on above:Performed By: #### CMP #### [facility] [address] [address] [address] Troy HickeyProtein [Mass/Vol]7.3 g/dLNormal6.4-8.2The [facility] Comment on above:Performed By: #### CMP #### [facility] [address] [address] [address] Troy HickeySodium [Moles/Vol]140 mmol/ATxmngm541-929Ylu [facility] Comment on above:Performed By: #### CMP #### [facility] [address] [address] [address] Troy HickeyUrea nitrogen [Mass/Vol]45.0 mg/dLCritically high7.0-18.0The [facility] on above:Performed By: #### CMP #### [facility] [address] [address] [address] Troy Shelton nitrogen/Creatinine [Mass ratio]44.1 mg/mgNoKettering Health SpringfieldComment on above:Performed By: #### CMP #### [facility] [address] [address] [address] Troy Collins Screening.on 94-02-0268Wvnqn depression screening assessmentNoCommunity [facility] 250 DO Work Phone: Fall risk assessmentb) One or more falls in the last year-[facility] 250 DO Work Phone: Tobacco use status CPHSb) NoMP-[facility] [place] 250 DO Work Phone: BNPon 22-91-8090Twiluyvlzqr peptide B (Bld) [Mass/Vol] 153.0 pg/mLNormal<=900.0The [facility] above:Performed By: #### HSTROPN #### [facility] [address] [place] [address] Dr. Troy Rojas AUTO DIFFon 06-40-5918AKXO #0.1 103/ulNormal0.0-0.1The [facility] on above:Performed By: #### HSTROPN #### [facility] [address] [place] [address] Dr. Troy HickeyBasophils/100 WBC (Bld)0.7 %Normal0.2-2.0[facility] Comment on above:Performed By: #### HSTROPN #### [facility] [address] [address] [address] Troy Saab #0.4 103/ulNormal0.0-0.7The [facility] above: Performed By: #### HSTROPN #### [facility] [address] [address] [address] Troy Segundoosinophils/100 WBC (Bld)4.2 %Normal0.9-7.0The [facility] Comment on above:Performed By: #### HSTROPN #### [facility] [address] [address] [address] Troy Segundorythrocyte distribution width (RBC) [Ratio]14.2 %Qawurl69.0-15.0 The [facility] above:Performed By: #### HSTROPN #### [facility] [address] [place] [address] Dr. Troy HickeyHematocrit (Bld) [Volume fraction]40.2 %Critically low42.0-54.0 [facility] above:Performed By: #### HSTROPN #### [facility] [address] [place] [address] Dr. Troy HickeyHemoglobin (Bld) [Mass/Vol]12.4 g/dLCritically low14.0-18.0The [facility] above:Performed By: #### HSTROPN #### [facility] [address] [place] [address] Dr. Troy Elliott #0.03 10e3/ulNormal0.00-0.03The [facility] on above:Performed By: #### HSTROPN #### [facility] [address] [place] [address] Dr. Troy Elliott %0.3 %Normal0.0-0.5The [facility] above: Performed By: #### HSTROPN #### [facility] [address] [place] [address] Dr. Troy Valiente #2.4 103/ulNormal1.2-3.8The [facility] above:Performed By: #### HSTRWAQASN #### [facility] [address] [place] [address] Dr. Troy Zaidihocytes/100 WBC (Bld)27.9 %Eyuhni46.5-60.0The [facility] above:Performed By: #### HSTROPN #### [facility] [address] [place] [address] Dr. Troy AntonioUAL DIFF REQNONormalThe [facility]Comment on above: Performed By: #### HSTROPN #### [facility] [address] [place] [address] Dr. Troy Munoz (RBC) [Entitic mass]27.2 vhBvdped47.9-34.0The [facility] on above:Performed By: #### HSTROPN #### [facility] [address] [place], [place] [address] Dr. Troy DavisHC (RBC) [Mass/Vol]30.8 g/gUIposzv64.9-35.2The [facility] on above:Performed By: #### HSTROPN #### [facility] [address] [place] [address] Dr. Troy DavisV (RBC) [Entitic vol]88.2 rQCxmibw79.0-94.0The [facility] HospitalComment on above:Performed By: #### HSTROPN #### [facility] [address] [place] [address] Dr. Troy Valentin #0.6 103/ulNormal0.3-0.8The [facility] above:Performed By: #### HSTROPN #### [facility] [address] [place] [address] Dr. Troy Casianoocytes/100 WBC (Bld)7.2 %Normal1.7-12.0The [facility] Comment on above:Performed By: #### HSTROPN #### [facility] [address] [place] [address] Dr. Troy Mckee #5.2 103/ulNormal1.4-6.5The [facility] on above:Performed By: #### HSTROPN #### [facility] [address] [place] [address] Dr. Troy Phanutrophils/100 WBC (Bld)59.7 %Jtobba64.0-75.0The [facility] above:Performed By: #### HSTROPN #### [facility] [address] [place] [address] Dr. Troy Colungalet mean volume (Bld) [Entitic vol]8.5 fLCritically low 9.5-13.5The [facility] on above:Performed By: #### HSTROPN #### [facility] [address] [place] [address] Dr. Troy GonzalezT252 103/asPhtuvn126-364Oss [facility] on above: Performed By: #### HSTROPN #### [facility] [address] [address] [address] Troy HickeyRBC4.56 106/ulCritically low4.70-6.10The [facility] on above:Performed By: #### HSTROPN #### [facility] [address] [address] [address] Troy HickeyWBC8.6 103/ulNormal4.0-11.0The [facility] above: Performed By: #### HSTROPN #### [facility] [address] [address] [address] Troy Brower CHEST WO W CONon 91-11-9834KSH CHEST WO W CONEXAMINATION:CTA CHEST WO W CON INDICATION:Pulmonary embolism, hypertension, [...] findings in the chest. Electronically authenticated by: ABRANLillian CHRISTINE Date: 2021-11-23 19:06NoKettering Health SpringfieldCovid-19 PCR (CVDTBH)on 19-19-8304BUBR-CoV-2 (COVID-19) RNA ERNIE+probe Ql (Unsp spec)Not detectedNormalNOT DETECTEDThe [facility] Comment on above:Result Comment: This test is not yet approved or cleared by the [place] FDA. When there are no FDA-approved or cleared tests available, and other criteria are met, FDA can make tests available under an emergency access mechanism called an Emergency Use Authorization (EUA). The EUA for this test is supported by the [employer] of Health and Human Service's (HHS's) declaration that circumstances exist to justify the emergency use of in vitro diagnostics for the detection and/or diagnosis of the virus that causes COVID- 19. This EUA will remain in effect (meaning [...] of clinical signs and symptoms consistent with SARS-CoV-2.Performed By: #### BCID2 #### [facility] [address] [place] [address] Dr. Troy Wilcoxon 27-40-2915A-DIMER0.52 mg/L FEUCritically high0.19-0.50 The [facility] on above:Performed By: #### DDIM #### [facility] [address] [address] [address] Troy Wilcox COMMENTSSEE BELOWNoKettering Health SpringfieldComment on above:Result Comment: Increases in D-Dimer concentration observed with thromboembolic events [...] stress, and generalized hospitalization. Performed By: #### DDIM #### [facility] [address] [place] [address] Dr. Troy Morrow 14(COMP METB)on 80-52-3596Fuosdmo [Mass/Vol]3.5 g/dLNormal 3.4-5.0The [facility] on above:Performed By: #### HSTROPN #### [facility] [address] [place] [address] Dr. Troy HickeyAlbumin/Globulin [Mass ratio]0.8 {ratio}NormalThe [facility]Comment on above:Performed By: #### HSTROPN #### [facility] [address] [place] [address] Dr. Troy BellP [Catalytic activity/Vol]104 U/FYnyfgd42-745Lge [facility]Comment on above:Performed By: #### HSTROPN #### [facility] [address] [place] [address] Dr. Troy Ortega [Catalytic activity/Vol]22 U/IIajecp94-17Uqy [facility] on above:Performed By: #### HSTROPN #### [facility] [address] [place] [address] Dr. Troy Simms gap [Moles/Vol]6.2 mmol/LNormalThe [facility]Comment on above:Performed By: #### HSTROPN #### [facility] [address] [place] [address] Dr. Troy HickeyAST [Catalytic activity/Vol]16 U/CUeanct32-18Nas [facility] on above:Performed By: #### HSTROPN #### [facility] [address] [place] [address] Dr. Troy HickeyBilirubin [Mass/Vol]0.4 mg/dLNormal0.2-1.0The [facility] Comment on above:Performed By: #### HSTROPN #### [facility] [address] [address] [address] Troy HickeyCalcium [Mass/Vol]8.2 mg/dLCritically low8.5-10.1The [facility] on above:Performed By: #### HSTROPN #### [facility] [address] [address] [address] Troy HickeyChloride [Moles/Vol]104 mmol/NLiqhex24-452Khg [facility] Comment on above:Performed By: #### HSTROPN #### [facility] [address] [address] [address] Troy HickeyCO2 [Moles/Vol]31.8 mmol/OKmspjv98.0-32.0The [facility] Comment on above:Performed By: #### HSTROPN #### [facility] [address] [place] [address] Dr. Troy HickeyCreatinine [Mass/Vol]0.88 mg/dLNormal0.70-1.30The [facility] on above:Performed By: #### HSTROPN #### [facility] [address] [address] [address] Troy SegundoGFR-AF MALDIVIAN>60Normal>=60The [facility] on above:Performed By: #### HSTROPN #### [facility] [address] [place] [address] Dr. Troy SegundoGFR-NON AF MALDIVIAN>60Normal>=60The [facility] on above:Performed By: #### HSTROPN #### [facility] [address] [address] [address] Troy HickeyGlobulin (S) [Mass/Vol]4.2 g/dLNormalThe [facility]Comment on above:Performed By: #### HSTROPN #### [facility] [address] [place] [address] Dr. Troy HickeyGlucose [Mass/Vol]109 mg/dLCritically wjuj18-382Rue [facility]Comment on above:Performed By: #### HSTROPN #### [facility] [address] [place] [address] Dr. Troy HickeyPotassium [Moles/Vol]4.0 mmol/LNormal3.5-5.1The [facility] Comment on above:Performed By: #### HSTROPN #### [facility] [address] [place] [address] Dr. Troy HickeyProtein [Mass/Vol]7.7 g/dLNormal6.4-8.2The [facility] Comment on above:Performed By: #### HSTROPN #### [facility] [address] [place] [address] Dr. Troy HickeySodium [Moles/Vol]138 mmol/TSuxgpi502-877Wca [facility] Comment on above:Performed By: #### HSTROPN #### [facility] [address] [place] [address] Dr. Troy HickeyUrea nitrogen [Mass/Vol]17.0 mg/dLNormal7.0-18.0[facility] HospitalComment on above:Performed By: #### HSTROPN #### [facility] [address] [place] [address] Dr. Troy Shelton nitrogen/Creatinine [Mass ratio]19.3 mg/mgNoKettering Health SpringfieldComment on above:Performed By: #### HSTROPN #### [facility] [address] [place] [address] Dr. Troy Mauricio 37-06-5759LYI Coag (PPP) [Relative time]1.01 {INR} NormalNorwalk Memorial HospitalComment on above:Performed By: #### BCID2 #### [facility] [address] [place] [address] Dr. Troy Ho GUIDELINESSEE BELOWMartin Memorial HospitalComment on above:Result Comment: DESIRED INR: 2.0 - 3.0 CONDITIONS NOT LISTED BELOW 2.5 - 3.5 FOR PROSTHETIC HEART VALVE REPLACEMENT 2.5 - 3.5 RECURRENT THROMBOSIS Performed By: #### BCID2 #### [facility] [address] [place] [address] Dr. Troy HickeyPT Coag (PPP) [Time]10.9 sNormal9.0-11.6The [facility] Comment on above:Performed By: #### BCID2 #### [facility] [address] [place] [address] Dr. Troy BarkerTon 58-28-8697rEIN Coag (Bld) [Time]28.3 cMsosoq88.3-36.2The [facility] on above:Performed By: #### BCID2 #### [facility] [address] [place] [address] Dr. Troy Nunez, HIGH SENSITIVITYon 97-03-3733HIORYG308.7 pg/mL Critically high4.0-76.1[facility] Memorial HospitalComment on above:Result Comment: CUT-OFF POINTS HAVE BEEN ESTABLISHED BASED ON THE FOURTH UNIVERSAL DEFINITIONS OF MYOCARDIAL INFARCTION. THE UPPER REFERENCE LIMIT (URL) OF TROPONIN, DEFINED THE 99TH PERCENTILE OF cTnI DISTRIBUTION IN A REFERENCE POPULATION, HAS BEEN CONFIRMED THE DECISION THRESHOLD FOR TX DIAGNOSIS. Test Repeated. Critical Value VerifiedPerformed By: #### HSTROPN #### [facility] [address] [place] [address] Dr. Troy HickeyHSTROP138.8 pg/mLCritically high4.0-76.1[facility] Comment on above:Result Comment: CUT-OFF POINTS HAVE BEEN ESTABLISHED BASED ON THE FOURTH UNIVERSAL DEFINITIONS OF MYOCARDIAL INFARCTION. THE UPPER REFERENCE LIMIT (URL) OF TROPONIN, DEFINED THE 99TH PERCENTILE OF cTnI DISTRIBUTION IN A REFERENCE POPULATION, HAS BEEN CONFIRMED THE DECISION THRESHOLD FOR TX DIAGNOSIS.Performed By: #### HSTROPN #### [facility] [address] [place] [address] Dr. Troy HickeyXR FINGER MIN 2 VIEWSon 10-00-4282SB FINGER MIN 2 VIEWSEXAM: XR FINGER MIN 2 VIEWS HISTORY: Laceration of finger COMPARISON: [...] Electronically authenticated by: LINDA MICHEL Date: 2021-10-05 15:49NoKettering Health SpringfieldCOVID Quick Testingon 32-49-8427LxnsdwCyhabfstTbqtc [employer] Other Quick Fluon 41-23-6897DHQFM Ab CF (S) [Titer]Negative [place] [facility] Other FLUBV Ab CF (S) [Titer]PositiveDriftwood [facility] Other Vital Signs Date TimeVital SignValuePerforming LbbyljhukEbjyjmql95-72-4735 13:25-0400Body rrtzro950.9 cmMichael Cardoza DO Work Phone: [employer] WorldWrgugiwojc99-59-1686 13:25-0400Body mass index (BMI) [Ratio]32.28 kg/x8Lduamet Cardoza DO Work Phone: [employer] Hcnmsofxbc34-19-9019 13:25-0400Body cinzmc129.96 kgMichael Cardoza DO Work Phone: [employer] Seclxcwwje73-72-3333 14:22-0400Body .9 cmWilliam Jonny DO Work Phone: [facility]10-16-2025 14:22-0400 Body mass index (BMI) [Ratio]31.74 kg/a7Nthilgp Jonny DO Work Phone: [facility]10-16-2025 14:22-0400 Body .14 kgWilliam Jonny DO Work Phone: [facility]10-16-2025 14:22-0400 Diastolic blood qlgpirlx22 mm[Hg]Addy Fuller DO Work Phone: [facility]10-16-2025 14:22-0400 Heart rate64 /minAddy Fuller DO Work Phone: [facility]10-16-2025 14:22-0400 Systolic blood aqlcixmq335 mm[Hg]Addy Fuller DO Work Phone: [facility]07-22-2025 14:06-0400 Body omfbrm655.9 cmMichael Cardoza DO Work Phone: [phone])[address] [place], [place] 6337607-22-2025 14:06-0400Body mass index (BMI) [Ratio]32.28 kg/d5Jcnywaf Cardoza DO Work Phone: 1(732)[address] [place], [place] 6337607-22-2025 14:06-0400Body dobhjz806.96 kgMichael Cardoza DO Work Phone: [phone])[address] [place], [place] 6337605-08-2025 13:51-0400Body lpzxfo844.9 cmMichael Cardoza DO Work Phone: [phone])[address] [place], [place] 6337605-08-2025 13:51-0400Body mass index (BMI) [Ratio]32.28 kg/a3Chklwkv Cardoza DO Work Phone: 1(090)[address] [place], [place] 6337605-08-2025 13:51-0400Body .96 kgMichael Cardoza DO Work Phone: [phone])[address] [place], [place] 6337602-25-2025 12:51-0500Body eihesl197.9 cmMichael Cardoza DO Work Phone: [phone])[address] [place], [place] 6337602-25-2025 12:51-0500Body mass index (BMI) [Ratio]32.28 kg/u9Xelmeue Cardoza DO Work Phone: 1(666)[address] [place], [place] 6337602-25-2025 12:51-0500Body .96 kgMichael Cardoza DO Work Phone: [phone])[address] [place], [place] 6337612-04-2024 15:07-0500Body lwajzg009.9 cmTodd Lamberton PA Work Phone: noWright Memorial HospitalVuaijkjagf45-31-3366 15:07-0500Body mass index (BMI) [Ratio]32.41 kg/m2Tojalyn Aponte PA Work Phone: noWright Memorial HospitalGzyvflcywo92-67-1676 15:07-0500Body rvfavd070.41 kgTojalyn Lamberton PA Work Phone: noWright Memorial HospitalGlirhrmniu32-49-8281 10:26-0400Diastolic blood ybzjzcia94 mm[Hg]Patricia [address] [place], [place] 6012905-06-2024 10:26-0400 Heart rate72 /minEly [address] [place], [place] 6012905-06-2024 10:26-0400 Systolic blood khhznill949 mm[Hg]Patricia [address] [place] [address] 10-22-2023 10:50-0400Body qdilgx222.9 cmWivaishnaviomayra CauseyJonny DO Work Phone: [facility]04-04-2024 10:50-0400 Body mass index (BMI) [Ratio]34.58 kg/k0Hebqzsi Jonny DO Work Phone: [facility]04-04-2024 10:50-0400 Body axdmxw113.67 kgWilljani Jonny DO Work Phone: [facility]04-04-2024 10:50-0400 Diastolic blood dbjucsps83 mm[Hg]Addy Fuller DO Work Phone: [facility]04-04-2024 10:50-0400 Heart rate68 /minWillfiliomayra Jonny DO Work Phone: [facility]04-04-2024 10:50-0400 Systolic blood okbvqqwg564 mm[Hg]Addy Fuller DO Work Phone: [facility]03-22-2024 12:50-0400 Body .9 cmMarietta GUZMÁN Work Phone: [facility]03-22-2024 12:50-0400Body mass index (BMI) [Ratio]34.88 kg/l5VgwgokkMarietta Brice APRN-BAILEY Work Phone: [facility]03-22-2024 12:50-0400Body brupgz264.67 kgMarietta Brice APRN-PAINT DEPARTMENT SUPERVISOR Work Phone: [facility]03-22-2024 12:50-0400Diastolic blood hgobdevo79 mm[Hg]aMrietta Brice APRN-BAILEY Work Phone: [facility]03-22-2024 12:50-0400Heart rate 63 /minMarietta Brice APRN-BAILEY Work Phone: [facility]03-22-2024 12:50-0400Systolic blood varhxxzt389 mm[Hg]Marietta Brice APRN-BAILEY Work Phone: [facility]03-14-2024 08:35-0400Body uaubmjqmsrh11.1 [degF]DO Joe [employer] Work Phone: [phone]03-14-2024 08:35-0400 Diastolic blood smsehicc62 mm[Hg]DO [employer] Work Phone: 1(356)[address]03-14-2024 08:35-0400 Heart rate84 /Tyra Diaz [employer] Work Phone: 1(384)[address]03-14-2024 08:35-0400 Respiratory rate20 /minDO Joe [employer] Work Phone: 1(437)[address]03-14-2024 08:35-0400 SaO2% (BldA) [Mass fraction]98 %DO Joe [employer] Work Phone: 1(209)[address]03-14-2024 08:35-0400 Systolic blood yqnpzacg533 mm[Hg]DO [employer] Work Phone: 1(263)[address]03-14-2024 06:00-0400 Body qqpouy870.9 kgDO Joe House Work Phone: [facility]03-13-2024 02:20-0400 Body uwnkyz262.88 cmDO Joe House Work Phone: [facility]09-07-2023 11:21-0400 Body iiewwh160.88 cmCharles P House Work Phone: mp070-0269HV-Xsjrb [facility] 250 DO Work Phone: 1(352) 147-694709-07-2023 11:21-0400Body mass index (BMI) [Ratio] 34.99 kg/j4Gjfgvys P House Work Phone: mp672-8579FO-Fqdfw [facility] 250 DO Work Phone: 1(215) 113-584609-07-2023 11:21-0400Body surface area Derived from formula2.37 s0Opzvueo P House Work Phone: mp374-7360HV-Xqujd [facility] 250 DO Work Phone: 1(400) 340-398409-07-2023 11:21-0400Body yxzuob534.03 kgCharles P House Work Phone: mp141-7800BN-Fjjzt [facility] 250 DO Work Phone: 1(649) 672-469609-07-2023 11:21-0400Diastolic blood jychzhrf77 mm[Hg] Joe P House Work Phone: mp276-7667ZB-Vllrc [facility] 250 DO Work Phone: 1(429) 750-696409-07-2023 11:21-0400Heart rate64 /minCharles P House Work Phone: mp998-0327UI-Vbmnh [facility] 250 DO Work Phone: 1(958) 962-326309-07-2023 11:21-0400Systolic blood uctvlwqx603 mm[Hg] Joe P [facility] Work Phone: mp293-9314RE-Cghtd [facility] 250 DO Work Phone: 1(343) 794-470203-02-2023 12:00-0500Heart rate66 /minCharles P House Work Phone: 1(916) 741-1555606-6074BL-Sobig [facility] 250 DO Work Phone: 1(233) 760-491203-02-2023 11:55-0500Body maqeyv216.88 cmCharles P House Work Phone: 1(923) 267-5255421-8599PQ-DaxzqBag[facility] [facility] DO Work Phone: 1(156) 210-401403-02-2023 11:55-0500Body mass index (BMI) [Ratio]35.4 kg/r4Dlgitfr P House Work Phone: 1(479) 198-4177058-4636EZ-FxaxbBag[facility] 250 DO Work Phone: 1(959) 338-871503-02-2023 11:55-0500Body surface area Derived from formula2.39 v6Xchnddw P House Work Phone: 1(642) 947-3815959-5710EA-OgfwsBag[facility] Center-[place] 250 DO Work Phone: 1(326) 400-687703-02-2023 11:55-0500Body ncdvza564.39 kgCharles House Work Phone: [phone]-[facility] 250 DO Work Phone: 1([phone]) 134-869903-02-2023 11:55-0500Diastolic blood drlxvnal04 mm[Hg] Joe P House Work Phone: [phone]-[facility] 250 DO Work Phone: 1(719) 534-616503-02-2023 11:55-0500Systolic blood eejirvhm092 mm[Hg] Joe P House Work Phone: 1(873) [phone]-[facility]xyBag[facility] 250 DO Work Phone: 1(242) [phone] 11:01-0400Body .88 cmCharles House Work Phone: 1([phone]) [phone]-CnfmjBag[facility] [place] 250 DO Work Phone: 1(107) [phone] 11:01-0400Body mass index (BMI) [Ratio] 35.13 kg/g1Fjrbvpw House Work Phone: [phone]-[facility]fuBag[facility] 250 DO Work Phone: 1(259) [phone] 11:01-0400Body surface area Derived from formula2.38 p9Znvwxud P House Work Phone: [phone]-Wakob [facility] 250 DO Work Phone: 1(380) 570-559108-31-2022 11:01-0400Body aupfzk524.48 kgCharolesya P House Work Phone: [phone]-Hlkri [facility] 250 DO Work Phone: 1(421) [phone] 11:01-0400Diastolic blood mm[Hg] Joe P House Work Phone: [phone]-Ogmhy [facility] 250 DO Work Phone: 1(694) [phone] 11:01-0400Heart rate60 /minCharolesya P House Work Phone: 1(750) [phone]-Acczc [facility] 250 DO Work Phone: 1(215) [phone] 11:01-0400Systolic blood ooerhfwn405 mm[Hg] Joe P [employer] Work Phone: [phone]-Iypco [facility] 250 DO Work Phone: 1([phone] 10:30-0400Diastolic blood iamqpvxb76 mm[Hg] Joe P House Work Phone: 1([phone]) [phone]-Rutbg [facility] 250 DO Work Phone: 1(436) 448-831605-23-2022 10:30-0400Systolic blood yqjyrgud520 mm[Hg] Joe P House Work Phone: [phone]-Neatu [facility] 250 DO Work Phone: 1(656) [phone] 10:25-0400Body nrsewn123.88 cmCharles P House Work Phone: [phone]-Zowdp [facility] 250 DO Work Phone: 1([phone]) 379-740005-23-2022 10:25-0400Body mass index (BMI) [Ratio] 36.08 kg/e0Aigpwqo P House Work Phone: mp264-2224KE-Tnpoc [place] [facility] 250 DO Work Phone: 1(140) [phone] 10:25-0400Body surface area Derived from formula2.4 a9Nkcyrmb P House Work Phone: mp172-2800WD-Wjnqn [place] [facility] 250 DO Work Phone: 1(863) [phone] 10:25-0400Body aibblj208.66 kgCharles P House Work Phone: [phone]-Mjfft [place] [facility] 250 DO Work Phone: 1(725) [phone] 10:25-0400Diastolic blood vcextfbc49 mm[Hg] Joe P [employer] Work Phone: mp872-2273GB-Wzdit [place] [employer] 250 DO Work Phone: 1(227) [phone] 10:25-0400Heart rate66 /minCharles P [employer] Work Phone: [phone]-Hrfnu [place] [employer] 250 DO Work Phone: 1(171) [phone] 10:25-0400Systolic blood koxdnmvi674 mm[Hg] Joe P [employer] Work Phone: [phone]-Hgvdt [place] [employer] 250 DO Work Phone: 1(977) 706-516201-20-2022 15:15-0500Body qqsrry425.88 Jn Diaz Other [employer] Other 01-20-2022 15:15-0500Body mass index (BMI) [Ratio] 34.58 kg/k2TpydnoJocelyn Diaz Other [employer] Other 01-20-2022 15:15-0500Body vsocsyvrqhx84.1 [degF]Jocelyn Diaz Other [employer] Other 01-20-2022 15:15-0500Body otbuio711.67 kgJocelyn Diaz Other [employer] Other 01-20-2022 15:15-0500Respiratory rate18 /minJocelyn Diaz Other [employer] Other 01-20-2022 15:15-6269IpC1% (BldA) [Mass fraction]98 % Jocelyn Diaz Other [employer] Other Encounters Encounter DateEncounter TypeCare ProviderFacilityStart: 05-09-2025 End: 42-23-1344Yhtxhgc encounter procedureMictyrell Caryn Cardoza DO Work Phone: noms SalonBookr OrthopaedicsComment on above:S/P reverse total shoulder arthroplasty, left (Primary Dx)Start: 05-09-2025 End: 16-59-3677fdiwjvabbnNBQIWES T POWERSNot AvailableStart: 05-09-2025 End: 23-26-1783djlnmbfgzvLWRNLXV T POWERSNot AvailableStart: 05-04-2025 End: 09-20-8874Koaajb outpatient visit 25 minutesWiantonieta Fuller DO Work Phone: uh [facility] HospitalComment on above:Coronary artery disease involving nenana coronary artery of nenana heart without angina pectoris; History of PTCA; Pulmonary interstitial fibrosis (Multi); Former cigarette smoker; Mixed hyperlipidemia; Hypertension, benign; BMI 31.0-31.9,adultStart: 05-04-2025 End: 03-19-9791sudfvpxdblCLBCCVD S [facility] AmbulatoryStart: 03-28-2025 End: 98-97-6804gamftgxlylDMYTAIF P HOUSEFacility:[facility] ClinicStart: 02-07-2025 End: 26-58-1169eiiagttmphRVIZFZM T POWERSNot AvailableStart: 02-07-2025 End: 38-90-2027Yqefjkf encounter procedureMichael T Cardoza DO Work Phone: noms SalonBookr OrthopaedicsComment on above:Status post reverse arthroplasty of left shoulder (Primary Dx)Start: 02-07-2025 End: 98-34-4698rnnxaymlwnDRFKLZO T POWERSNot AvailableStart: 02-02-2025 End: 41-09-8024Jxtylf flowsheetMarshall Brink PTANOMS CI PTStart: 02-02-2025 End: 47-82-8532Hmaunz flowsheetMarshall Brink PTANOMS CI PTStart: 02-02-2025 End: 92-63-7167neacnvjfzsXnzufzxd Brink PTANOMS CI PTComment on above:Localized osteoarthritis of left shoulder (Primary Dx); Status post reverse arthroplasty of left shoulderStart: 01-30-2025 End: 31-66-7823Eqdjvx flowsheetMelissa Kelbley PTANOMS CI PTStart: 01-30-2025 End: 14-03-7578Nkeugl flowsheetMelissa Kelbley PTANOMS CI PTStart: 01-30-2025 End: 07-37-2984hbxfepepusGwszgnb Kelbley PTANOMS CI PTComment on above:Localized osteoarthritis of left shoulder (Primary Dx); Status post reverse arthroplasty of left shoulderStart: 01-26-2025 End: 05-73-3272Jwmhzd flowsValdemar Jacob PTANOMS CI PTStart: 01-26-2025 End: 55-80-8014Cluhap flowsValdemar Centeno PTANOMS CI PTStart: 01-26-2025 End: 92-84-6020swdueeblpfIvuokkd Jacob PTANOMS CI PTComment on above: Localized osteoarthritis of left shoulder (Primary Dx); Status post reverse arthroplasty of left shoulderStart: 01-16-2025 End: 50-58-9308Koynef flowsheetMarshall Brink PTANOMS CI PTStart: 01-16-2025 End: 90-98-2957Pypfvm flowsheetMarshall Brink PTANOMS CI PTStart: 01-16-2025 End: 29-42-0209kgpbmvquqnDhsdnpbi Brink PTANOMS CI PTComment on above:Localized osteoarthritis of left shoulder (Primary Dx); Status post reverse arthroplasty of left shoulderStart: 01-12-2025 End: 88-27-1020Wdisno flowsValdemar Centeno PTANOMS CI PTStart: 01-12-2025 End: 16-36-8863Cdarzp flowsheetLance Centeno PTANOMS CI PTStart: 01-12-2025 End: 87-48-5163tdpqclrkrkGrrssnl Lawrence PTANOMS CI PTComment on above: Localized osteoarthritis of left shoulder (Primary Dx); Status post reverse arthroplasty of left shoulderStart: 01-09-2025 End: 75-46-0035Exfrvb flowsheetMelissa Kelbley PTANOMS CI PTStart: 01-09-2025 End: 68-74-5815Afszxz flowsheetMelissa Kelbley PTANOMS CI PTStart: 01-09-2025 End: 99-32-1641jpjfwnowmeLitntnb Kelbley PTANOMS CI PTComment on above:Localized osteoarthritis of left shoulder (Primary Dx); Status post reverse arthroplasty of left shoulderStart: 01-02-2025 End: 79-35-7059Nsimgz flowsheetMarshall Brink PTANOMS CI PTStart: 01-02-2025 End: 78-15-4518Qcncpj flowsheetMarshall Brink PTANOMS CI PTStart: 01-02-2025 End: 41-30-7220fyssaaroupEhjwwqky Brink PTANOMS CI PTComment on above:Localized osteoarthritis of left shoulder (Primary Dx); Status post reverse arthroplasty of left shoulderStart: 12-29-2024 End: 68-99-3632Omftvn flowsheetMarshall Brink PTANOMS CI PTStart: 12-29-2024 End: 84-85-4245Ajbpgz flowsheetMarshall Brink PTANOMS CI PTStart: 12-29-2024 End: 17-13-5042snzqejaemvTygynugg Brink PTANOMS CI PTComment on above:Localized osteoarthritis of left shoulder (Primary Dx); Status post reverse arthroplasty of left shoulderStart: 12-26-2024 End: 71-78-7151Guvyhv flowsheetMelissa Kelbley PTANOMS CI PTStart: 12-26-2024 End: 35-90-4798Xtiqcs flowsheetMelissa Kelbley PTANOMS CI PTStart: 12-26-2024 End: 50-49-6459fpyiehsanaQphumqh Kelbley PTANOMS CI PTComment on above:Localized osteoarthritis of left shoulder (Primary Dx); Status post reverse arthroplasty of left shoulderStart: 12-23-2024 End: 38-42-4157Newffs flowsheetMarshall Brink PTANOMS CI PTStart: 12-23-2024 End: 74-18-1122Hczqqq flowsheetMarshall Brink PTANOMS CI PTStart: 12-23-2024 End: 65-54-4958wtozcycmseQrrjimwy Brink PTANOMS CI PTComment on above:Localized osteoarthritis of left shoulder (Primary Dx); Status post reverse arthroplasty of left shoulderStart: 07-00-7893sbfefcutmj CHARLES P HOUSEFacility:[facility] ClinicStart: 12-20-2024 End: 16-89-0824Ffcoqw flowsheetSammantha Andre PTNOMS CI PTStart: 12-20-2024 End: 11-71-5228Hbattv flowsheetSammantha Andre PTNOMS CI PTStart: 12-20-2024 End: 82-96-6592vbptbgmnwuWbhhyqphf Andre PTNOMS CI PTComment on above: Localized osteoarthritis of left shoulder (Primary Dx); Status post reverse arthroplasty of left shoulderStart: 12-15-2024 End: 56-49-9217mgewmevpdnYstxgnqdw Andre PTNOMS CI PTComment on above: Localized osteoarthritis of left shoulder (Primary Dx); Status post reverse arthroplasty of left shoulderStart: 12-13-2024 End: 95-65-5178Rnhwfd flowsheetSammantha Andre PTNOMS CI PTStart: 12-13-2024 End: 94-41-7694Iwahbs flowsheetSammantha Andre PTNOMS CI PTStart: 12-13-2024 End: 66-80-1176xyuyixgjihPqmpsqfpw Andre PTNOMS CI PTComment on above: Localized osteoarthritis of left shoulder (Primary Dx); Status post reverse arthroplasty of left shoulderStart: 12-08-2024 End: 72-29-0238jfeirdmbtfGYAXLFRV BRINKNot AvailableStart: 12-05-2024 End: 61-49-9972Zzsrzt Ceasar Centeno PTANO CI PTStart: 12-05-2024 End: 84-81-7677Xmjlkn Ceasar Centeno PTANOMS CI PTStart: 12-05-2024 End: 42-26-0204fcoruqfllpSjzxqpg Lawrence PTANOMS CI PTComment on above: Localized osteoarthritis of left shoulder (Primary Dx); Status post reverse arthroplasty of left shoulderStart: 12-01-2024 End: 39-07-7873byagewetpjBmfncmzbj Andre PTNOMS CI PTComment on above: Localized osteoarthritis of left shoulder (Primary Dx); Status post reverse arthroplasty of left shoulderStart: 12-01-2024 End: 03-69-8343Dfcoxt flowsheetSammantha Andre PTNOMS CI PTStart: 12-01-2024 End: 60-66-7849Uaodzd flowsheetSammantha Andre PTNOMS CI PTStart: 11-24-2024 End: 86-38-6503Bnacdih encounter procedureMichael T Cardoza DO Work Phone: NOMS NB ORTHOComment on above:Status post reverse arthroplasty of left shoulder (Primary Dx)Start: 11-24-2024 End: 03-13-3083tsdiatyaglLPKARPX T POWERSNot AvailableStart: 11-24-2024 End: 61-67-6008ognmvwgrvxUNAZYGX T POWERSNot AvailableStart: 10-24-2024 End: 92-61-8800Dxatabepu Result EncounterMichael T Cardoza DO Work Phone: NOMS External Department UnsolicitedStart: 10-24-2024 End: 28-62-5150Kainaajmq Result EncounterMichael T Cardoza DO Work Phone: NOMS External Department UnsolicitedStart: 10-24-2024 End: 79-75-3371vxlzzmbinrFnsfhvp T PowersFacility:FTMCStart: 10-10-2024 End: 58-72-0459gotfeztjedWkqfnun T PowersFacility:FTMCStart: 10-10-2024 End: 20-83-0399Xdcaugfac Result EncounterMichael T Cardoza DO Work Phone: [phone] External Department UnsolicitedStart: 10-10-2024 End: 82-71-3232Alzpgcnkj Result EncounterMichael T Cardoza DO Work Phone: [phone] External Department UnsolicitedStart: 10-04-2024 End: 90-08-6707gzxrcffyenJAWZVID T POWERSNot AvailableStart: 09-22-2024 End: 29-48-8092kbojphumhzZNZUEAW T POWERSNot AvailableStart: 09-19-2024 ambulatoryDO JOE Lam HOUSEFacility:[facility] ClinicStart: 09-13-2024 End: 63-44-0794Yqsqzn flowsheetMichael T Cardoza DO Work Phone: [phone] ORTHOStart: 09-13-2024 End: 55-60-4432Goicxx flowsheetMichael T Cardoza DO Work Phone: [phone] ORTHOStart: 09-13-2024 End: 78-16-9687Dddrxie encounter procedureMichael T Cardoza DO Work Phone: [phone] NB ORTHOComment on above:Left shoulder pain, unspecified chronicity (Primary Dx)Start: 09-13-2024 End: 76-28-1947hpxnmmhmyfJDIRTBG T POWERSNot AvailableStart: 07-26-2024 End: 63-18-7780cqkovyewmdWL CHARLES P HOUSEFacility:[facility] ClinicStart: 06-22-2024 End: 94-62-1547mflcvjhqrrAJPC D HILLSNot AvailableStart: 06-22-2024 End: 36-88-5063Mmnxffk encounter procedureTojalyn Aponte PA Work Phone: [phone] NB ORTHOComment on above:Primary osteoarthritis of left shoulder (Primary Dx); Left shoulder pain, unspecified chronicityStart: 06-22-2024 End: 87-19-1019ctsnctonplTCHQ D HILLSNot AvailableStart: 06-20-2024 End: 86-02-0607oiddomljsmYLULSGT P HOUSEFacility:[facility] ClinicStart: 04-26-2024 End: 31-05-1572iajlartgnqWvrhecdu A. JonesFacility:FTMCStart: 04-08-2024 End: 56-16-6748pprznenzjyOrbawt SpringerFacility:FTMCStart: 03-02-2024 End: 83-71-2221uzuzqduhapEDCNANI P HOUSEFacility:FTMCStart: 02-23-2024 End: 88-91-9110kalotliyhnQyvowhzx A. JonesFacility:FTMCStart: 02-16-2024 End: 07-31-3132wyyqrtrzbnSgzturvz A. JonesFacility:FTMCStart: 11-30-2023 End: 41-76-7952vkaurkyweqScgaijri Mata CaicedoremyiFacility:Moe DHStart: 11-24-2023 End: 92-01-8964jzwgivsxzzHDYEVTPEast Liverpool City Hospitaltart: 11-24-2023 End: 85-29-9003Rvyyjuxkdj hospital visit by Justin Taylor [address] [place], [place] [address]Start: 11-23-2023 End: 85-28-4223vxmbkwmodwAELXRVMEast Liverpool City Hospitaltart: 11-23-2023 End: 47-07-7578Drhwlvfepp hospital visit by Justin Taylor Admin Room [address] [place], [place] [address]Comment on above:NSTEMI, initial episode of care (Multi); Other cough; Other fatigue; HOPPER (dyspnea on exertion)Start: 11-12-2023 End: 59-41-0330Xkgvwaetc encounterLauren Ashley CMAProMedica Physicians General SurgeryStart: 11-10-2023 End: 14-30-7409Xftmum OnlyNot In System Ref ProvProMedica Physicians General SurgeryStart: 11-05-2023 End: 95-12-6363Nyjytc Delmi Gibson RMAProMedica Physicians General SurgeryComment on above:Positive colorectal cancer screening using Cologuard testStart: 11-04-2023 End: 02-52-8355enbsrnajvxVjglaov E GrillisFacility:[facility] Centertart: 11-04-2023 End: 22-86-4200muulewphsoBW Joe Maddox Work Phone: [facility] Work Phone: Start: 11-04-2023 End: 33-03-2733Zterectb ReferredDO Joe Maddox Work Phone: [facility]-LAB Path Spec [place] HospStart: 10-22-2023 End: 81-85-2135Fbqxpx outpatient visit 25 minutesAddy Fuller DO Work Phone: [facility] DothanComment on above:Coronary artery disease involving nenana coronary artery of nenana heart without angina pectoris; History of PTCA; NSTEMI, initial episode of care ([facility]); Hypertension, benign; Mixed hyperlipidemia; Gastrointestinal hemorrhage, unspecified gastrointestinal hemorrhage type; Other cough; Other fatigue; HOPPER (dyspnea on exertion); Former cigarette smokerStart: 10-15-2023 End: 90-74-5596pkamgjxzkkHwiwixdt A. JonesFacility:FTMCStart: 10-15-2023 End: 45-96-2654rbqlmwhqjbTN Bradford A. JonesFacility:FTMCStart: 10-09-2023 End: 58-67-9700mcorpnzfzsJIRNKGHCascade [facility] Hospital [facility] Start: 10-09-2023 End: 00-80-4213Geuhcj outpatient new 30 minuteskyle Brice REGISTERED NURSE CARDIAC TELEMETRY-PAINT DEPARTMENT SUPERVISOR Work Phone: [facility] Physicians General SurgeryComment on above: Positive colorectal cancer screening using Cologuard test (Primary Dx); Loose stoolsStart: 08-07-3449Asn-patient / Non-visitDO Joe Maddox Work Phone: [facility] Work Phone: Start: 09-30-2023 End: 57-44-1849Mvedtnjwbn and management of inpatientHeather Mischler Facility:[facility] Centertart: 09-30-2023 End: 24-93-5289Szoktbhyfc and management of inpatientDO Joe Maddox Work Phone: [facility] Work Phone: Start: 94-62-1328ivlpbsjyueTC-C Ariana Urena Facility:Moe DHStart: 09-22-2023 End: 32-85-6983zumyriembdEcydy MoussawiFacility:FTMCStart: 07-31-2023 End: 24-13-8573vzgdpyglapXN-C Amanda SpringerFacility:FTMCStart: 06-25-2023 End: 48-03-7045rnxfqkyptzZnfpei D GoldnerFacility:FTMCStart: 06-05-2023 End: 25-17-3174yixvzjnbbdBjwsdz SpringerFacility:FTMCStart: 05-19-2023 End: 34-09-8606vjsyiadmqzYbnqgu D GoldnerFacility:FTMCStart: 04-08-2023 End: 26-25-7362ntutmsxxmlNtaqkm RomelFacility:FTMCStart: 51-62-0820Flfbqc outpatient visit 25 minutesCharles P House Work Phone: [phone]-Pyggp [facility] 250 DO Work Phone: Start: 94-66-3759tatyumrschVembulatoryDr. Addy Fuller Facility:[address]Uukua: 30-54-4245Gm RenewalCharles P House Work Phone: [phone]-Lorwm [facility] 250 DO Work Phone: Start: 08-83-7276cdkkjugwihYuqad SmithFacility: Start: 35-60-1390Tmfzjz consultation new/estab patient 60 minCharles P House Work Phone: [phone]-Iiqkc [facility] 250 DO Work Phone: Start: 57-41-9679Uvewjl outpatient visit 25 minutes Joe P House Work Phone: [phone]-Oxrcz [facility] 250 DO Work Phone: Start: 16-55-1401pqyfuefotgGfmbulatoryDr. Addy Fuller Facility:[id number]: 05-22-2022 End: 84-57-7668gnhpdjhrtzPR DOCTOR MISCFacility:V3Wgjsi: 04-25-2022 End: 65-41-1896xasimqvxvlJV JOE HOUSEFacility:I1Ovvqi: 04-23-2022 End: 43-46-3264ahiyomvxupSR JOE HOUSEFacility:R1Gurhp: 04-02-2022 End: 61-47-4170qltqzjepjqEJ JOE HOUSEFacility:A5Ysysh: 69-32-8052Czjlwi outpatient visit 25 minutesCharles P House Work Phone: [phone]-SzoprFairmont Hospital [facility]-[place] 250 DO Work Phone: Start: 02-10-2022 End: 08-42-8732lqqtbadelqDD JOE HOUSEFacility:J2Ojxhi: 12-17-2021 End: 66-30-7747aflojzzgayHMOML BOYD-SMITHFacility:T1Vnbyf: 12-09-2021 Transitional care manage srvc 14 day dischargeCharles P House Work Phone: [phone]-XdgguBagley Medical Center-[place] 250 DO Work Phone: Start: 11-23-2021 End: 58-03-6859xjwlplrjpfEBHBEM SERVICES FAMILYFacility:P7Sqezk: 10-05-2021 End: 13-71-9431blxvhuvklgXZWQEC SERVICES FAMILYFacility:G5Chmaw: 08-08-2021 End: 31-11-7915adibitgampVizmer Taylor Other [employer] Other Start: 15-56-3666Otajme outpatient new 20 minutes Jocelyn [facility] ClydePatient encounter statusCharles P House Work Phone: [phone]-LmfgfBagley Medical Center-[place] 250 DO Work Phone: End: 71-10-6507Vhvehvx encounter statusCharles P House Work Phone: [phone]-LgkakBagley Medical Center-[place] 250 DO Work Phone: Procedures DateProcedureProcedure DetailPerforming ClinicianStart: 16-95-8372Gctxd shoulder complete minimum 2 viewsMichael T Cardoza DO Work Phone: Start: 87-42-7151Eluvm shoulder complete minimum 2 viewsMichael T Cardoza DO Work Phone: Start: 52-26-5812Gegcx shoulder complete minimum 2 viewsMichael T Cardoza DO Work Phone: Start: 03-10-7961FO SHOULDER COMPLETE LEFTMichael T Cardoza DO Work Phone: Start: 42-58-3179PA WITH CULT RFLXMichael T Cardoza DO Work Phone: Start: 61-03-2180Kcgselshulzmeq aspir&/inj major jt/bursa w/usTodd Nathalie BREEN Work Phone: Start: 94-28-8097Pvdlg shoulder complete minimum 2 Noah Aponte PA Work Phone: Start: 39-31-0307VPRDDWX STRESS TESTWILLIAM JONNY Start: 42-76-4843FCK / COLONOSCOPYJessica A Yuniel REGISTERED NURSE CARDIAC TELEMETRY-PAINT DEPARTMENT SUPERVISOR Work Phone: Start: 36-92-4700Lwsai i surg pathology gross examination onlyNot In System Ref ProvStart: 23-08-2288WY LHC & COR AngioDO [facility] Work Phone: Start: 51-99-0189FP [facility] Work Phone: Start: 82-06-2008Jksjkfm of percutaneous transluminal coronary angioplastyHistory of PTCAWilliam Jonny DO Work Phone: Start: 79-36-6355OWU screeningDR DOCTOR MISCComment on above:Performed By: #### BCID2 #### [facility] [address] [place] [address] Dr. Troy EspinosaendectomyCharolesya [employer] Work Phone: Cardiac catheterizationCharolesya P [employer] Work Phone: ColonoscopyCharles P House Work Phone: Decompression of median nerveCharles P House Work Phone: History of percutaneous transluminal coronary angioplastyHistory of PTCACharles P House Work Phone: History of percutaneous transluminal coronary angioplastyHistory of PTCAWilliam S Jonny DO Work Phone: History of percutaneous transluminal coronary angioplastyHistory of PTCAWilliam S Jonny DO Work Phone: Insertion of arterial stentCharles P House Work Phone: Prosthetic arthroplasty of the hipCharles P House Work Phone: Repair of shoulderCharles P House Work Phone: Total replacement of hipCharles P House Work Phone: Plan of Treatment DateCare ActivityDetailAuthorStart: 28-88-2365SMlP,Tdap and Td Vaccines (2 - Tdap)DTaP,Tdap and Td Vaccines (2 - Tdap)[facility] Touch Payments SystemStart: 59-74-3192WWoQ/Tdap/Td Vaccines (2 - Tdap)DTaP/Tdap/Td Vaccines (2 - Tdap) [facility]: 01-23-2026 End: 11-23-0509Ueyreum encounter djwailxxb76/07/2026 1:30 PM EDT Office Visit [address] [place] [address] Emanuel Andrews, REGISTERED NURSE CARDIAC TELEMETRY-PAINT DEPARTMENT SUPERVISOR [address] [facility] [address] [place] [address] [facility]: 10-24-2025 End: 40-60-8147Csofxfy encounter tmhbotiae28/07/2026 1:00 PM EDT Office Visit [facility] [address] [place] [address] Sander Cardoza DO [address] [place] [address] [facility] [place] [facility]icsStart: 05-09-2025 End: 49-36-5709Tdcafww encounter ddvtikuxf45/21/2025 2:00 PM EDT [facility] [address] [place] [address] Sander Cardoza, DO [address] [place] [address] [facility] [place] [facility]opaedicsStart: 05-04-2025 End: 29-78-5537Cuoyi metabolic 2000 panel - Serum or PlasmaBasic Metabolic Panel Lab Routine Coronary artery disease involving nenana coronary artery of nenana heart without angina pectoris Hypertension, benign Expected: 05/04/2025, Expires: 05/04/2026[facility] Work Phone: Comment on above:Expected: 05/04/2025, Expires: 05/04/2026Start: 05-04-2025 End: 25-39-8981Aevve 1996 panel - Serum or PlasmaLipid Panel Lab Routine Coronary artery disease involving nenana coronary artery of nenana heart without angina pectoris Mixed hyperlipidemia Expected: 05/04/2025, Expires: 05/04/2026 [facility] Service Area Work Phone: Comment on above:Expected: 05/04/2025, Expires: 05/04/2026Start: 76-94-8485UYCZN-19 Vaccine ( season)COVID-19 Vaccine ( season)[facility]St[facility] [place]: 51-13-3320Jurirqrux vaccinationInfluenza Vaccine (#1)[facility]: 02-07-2025 End: 44-77-5567Wiwhxds encounter ozyiiahpv22/22/2025 2:00 PM EDT Office Visit [facility] [address] [place] [address] Sander Cardoza, DO [address] [place] [address] NOMS NB ORTHOStart: 02-02-2025 End: 12-88-5165jlyyvlomvo18/17/2025 1:30 PM EDT Treatment [facility] [address] [facility] [address] [place] [address] Lisa Alva PTA [facility] PTStart: 01-30-2025 End: 20-43-4973rwkrhmlrfoBHTG CI PTComment on above:ArrivedStart: 01-26-2025 End: 81-99-8610wdllkkribjOTVH CI PTComment on above:ArrivedStart: 01-19-2025 End: 63-52-7023ebwcmqgtod44/03/2025 1:30 PM EDT Treatment [facility] [address] [facility] [address] [place] [address] Lisa Alva, RAYMOND [facility] CI PTStart: 01-16-2025 End: 46-97-2435xcrikdkojnWWRV CI PTComment on above:Localized osteoarthritis of left shoulder (Primary Dx); Status post reverse arthroplasty of left shoulderStart: 01-12-2025 End: 07-88-7106qhgetxzskdMYQB CI PTComment on above:Localized osteoarthritis of left shoulder (Primary Dx); Status post reverse arthroplasty of left shoulderStart: 01-09-2025 End: 41-17-5034smqyypkqxvHFFS CI PTStart: 01-05-2025 End: 22-84-6201ymiitvnymx06/19/2025 1:30 PM EDT Treatment [facility] [address] [facility] [address] [place] [address] Margarita Andre PTNOMS CI PTStart: 01-02-2025 End: 73-62-2035awhtoglyqiQTDK CI PTComment on above:Localized osteoarthritis of left shoulder (Primary Dx); Status post reverse arthroplasty of left shoulderStart: 12-29-2024 End: 66-52-6308btwkyefqdp97/12/2025 1:30 PM EDT Treatment [facility] [address] [place] [address] Margarita Andre PTNOMS CI PTStart: 12-26-2024 End: 80-20-1498qnhmulyjlaHYEI CI PTComment on above:ArrivedStart: 12-23-2024 End: 56-80-6847ockpsnpivhIXGC CI PTComment on above:ArrivedStart: 12-22-2024 End: 37-08-0497flrihlcbde03/05/2025 1:30 PM EDT Treatment [facility] CI PT [address] [facility] [address] [place] [address] Lance Centeno PTANOMS CI PTStart: 12-20-2024 End: 42-87-7620dtsesoreacXGBM CI PTComment on above:ArrivedStart: 12-15-2024 End: 79-10-0850qzrodgxymd75/29/2025 1:30 PM EDT Treatment [facility] CI PT [address] [facility] [address] [place] [address] Margarita Andre, PTNOMS CI PTStart: 12-13-2024 End: 94-61-8899xtjliujvrt63/27/2025 1:30 PM EDT Treatment [facility] CI PT [address] [facility] [address] [place] [address] Margarita Andre PTNOMS CI PTStart: 12-08-2024 End: 77-75-8496xbaxkxwsfqVNKC CI PTStart: 12-05-2024 End: 91-60-4886pyfgmmdmvlYTMV CI PTComment on above:ArrivedStart: 12-01-2024 End: 40-14-6884hjrezsybla40/15/2025 2:30 PM EDT Evaluation [facility] CI PT [address] [facility] [address] [place] [address] Margarita Andre, PTNOMS CI PTStart: 11-24-2024 End: 42-54-8863Xplisdl encounter oscrjbpjf81/08/2025 2:00 PM EDT Office Visit [facility] [address] [place] [address] Sander Cardoza, DO [address] [place] [address] [facility] BLAKE ORTHOStart: 81-31-5559Zqfcx BMI ScreeningAdult BMI ScreeningFormerly [facility]ertart: 05-48-0625Wzdstia ScreeningTobacco ScreeningFormerly [facility]ertart: 09-13-2024 End: 45-97-9653Auhqkej encounter xvnqjekrl95/25/2025 1:00 PM EST Office Visit [facility] [address] [place] [address] Sander Cardoza, DO [address] [place] [address] Left shoulder pain, unspecified chronicity (Primary Dx)NOMS BLAKE ORTHOComment on above:Left shoulder pain, unspecified chronicity (Primary Dx) Start: 76-58-6306Mylqaenfj vaccinationInfluenza VaccineTogus VA Medical Center Start: 02-09-2024 End: 43-54-1365Jgikdsg encounter qrpefswxc89/23/2024 1:40 PM EDT Office Visit [address] [place] [address] Addy Fuller, DO [address] [facility] [address] [place] [address] [facility]: 11-24-2023 End: 88-81-6578Fyktjph encounter puctzkihh38/07/2024 11:45 AM EDT Appointment [address] [place] [address] [facility]: 14-28-3433Shgtrahieo hospital visit by physician 11/24/2023 11:30 AM EDT Hospital Encounter [address] [place] [address] [facility]Z [facility]: 10[facility]22[facility]2023 End: 90-34-8861FN Heart Perfusion W stress and W radionuclide IVNuclear Stress Test Cardiac Nuclear Medicine Routine NSTEMI, initial episode of care ([facility]) Other cough Other fatigue HOPPER (dyspnea on exertion) Expected: 10/22/2023 (Approximate), Expires: 10/21/2025[facility] Service Area Work Phone: Comment on above:Expected: 10/22/2023 (Approximate), Expires: 10/21/2025Start: 87-15-3982ORG, Provider: Addy Fuller, Status: Pen, Time: 10:50 AMFUV, Provider: Addy Fuller, Status: Pen, Time: 10:50 AMMPBemidji Medical [facility] 250 DO Work Phone: Start: 46-74-5955JjhfhinleAcmc Healthcare System Start: 42-05-0834DtwcsvsqqUk Healthcare CenterStart: 27-10-0184KgecenyayCincinnati VA Medical Centertart: 73-51-5247MznifjcebUk Healthcare CenterStart: 47-37-8493GjbroypvoCincinnati VA Medical Centertart: 67-02-5801TctgiqhtqCincinnati VA Medical Centertart: 12-96-4831XunsgrqneCincinnati VA Medical Centertart: 16-92-7224BruvzldqpUk Healthcare CenterStart: 09-95-3106EghtbrsbbUk Healthcare CenterStart: 01-05-1148Gwlxqvytbjz of Left Heart using Low Osmolar ContrastFluoroscopy of Left Heart using Low Osmolar ContrastCincinnati VA Medical Centertart: 13-98-8059Zdvotvvsbzi of Multiple Coronary Arteries using Low Osmolar ContrastFluoroscopy of Multiple Coronary Arteries using Low Osmolar ContrastUk Healthcare CenterStart: 21-81-0194Nuaubbejqbw of Cardiac Sampling and Pressure, Left Heart, Percutaneous ApproachMeasurement of Cardiac Sampling and Pressure, Left Heart, Percutaneous ApproachCincinnati VA Medical Centertart: 99-15-7198Stxtrlbq to cardiologistUk Healthcare CenterStart: 67-58-1422Lotvzaay admissionCincinnati VA Medical Centertart: 52-07-2797HguxehwzeCincinnati VA Medical Centertart: 05-30-1022OEQ, Provider: Emanuel Smalls, Status: Pen, Time: 1:30 PMFUV, Provider: Emanuel Smalls, Status: Pen, Time: 1:30 PMMP-[facility] [address] DO Work Phone: Start: 97-33-2893FVR, Provider: Addy Fuller, Status: Pen, Time: 11:20 AMFUV, Provider: Addy Fuller, Status: Pen, Time: 11:20 AMMP-[facility]-[place] 250 DO Work Phone: Start: 27-91-6873YQYGO-19 Vaccine ( season) COVID-19 Vaccine ()[facility]Start: 66-49-8261JKO, Provider: Emanuel Smalls, Status: Pen, Time: 1:00 PMFUV, Provider: Emanuel Smalls, Status: Pen, Time: 1:00 PMMP-[facility] [place] 250 DO Work Phone: Start: 94-96-7232MSD, Provider: Addy Fuller, Status: Pen, Time: 11:20 AMFUV, Provider: Addy Fuller, Status: Pen, Time: 11:20 AMMPMult[facility] [address] DO Work Phone: Start: 04-28-6202OTY, Provider: Addy Fuller, Status: Pen, Time: 10:30 AMFUV, Provider: Addy Fuller, Status: Pen, Time: 10:30 AMMPMulticare Valley Hospital [facility] [address] DO Work Phone: Start: 05-70-4946Waomzcvtk aortic aneurysm screening Abdominal Aortic Aneurysm (AAA) ScreeningRegency Hospital Cleveland WestStart: 05-91-5023Ddyb Risk ScreeningFall Risk ScreeningKettering Health [facility] Soin Medical Center SystemStart: 84-94-1937ARS High Risk: (Elderly (60+) or Population) (1 - Risk 60-74 years 1-dose series)RSV High Risk: (Elderly (60+) or Population) (1 - Risk 60-74 years 1-dose series)[facility]: 54-59-9783BKM patients and/or patients aged 60+ years (1 - 1-dose 60+ series)RSV patients and/or patients aged 60+ years (1 - 1-dose 60+ series)[facility]: 20-37-2309Klsjxrtrsescga of varicella zoster vaccineZoster (Shingles) Vaccine (1 of 2)[facility] SystemStart: 72-17-4934Biotddzt specific antigen measurementPSA Prostate Cancer ScreeningUnSheltering Arms Hospital: 02-47-9793Vvzksy Vaccines (1 of 2)Zoster Vaccines (1 of 2)[facility]: 1974 Pneumococcal vaccinationPneumococcal Vaccine (1 of 2 - PCV)[facility]: 04-84-0900Emqoi BMI Follow Up PlanAdult BMI Follow Up Plan [facility]ertart: 30-08-5110Iqwaqgyl mellitus screeningDiabetes ScreeningUnSheltering Arms Hospital: 41-98-1216Xdhbjffww C screening Hepatitis C ScreeningUnSheltering Arms Hospital: 1967 Depression ScreeningDepression ScreeningProOhioHealth Arthur G.H. Bing, MD, Cancer Centertart: 1961 Pneumococcal Vaccine: 65+ Years (1 - PCV)Pneumococcal Vaccine: 65+ Years (1 - PCV)[facility]: 37-83-5900Qrerqfqelqzo Vaccine: 65+ Years (1 of 2 - PCV)Pneumococcal Vaccine: 65+ Years (1 of 2 - PCV)[facility]: 84-92-8930BLU Vaccines (1 of 1 - Standard series) MMR Vaccines (1 of 1 - Standard series)[facility]: 29-60-4815Uqgol panelLipid PanelUnSheltering Arms Hospital: 01-31-1956Medicare Annual Wellness VisitUnSheltering Arms Hospital: 06-66-1404Mrvmajkym for malignant neoplasm of colonUnOhioHealth Doctors Hospital End: 12-44-4591YZR / ColonoscopyEGD / Colonoscopy GI Routine Positive colorectal cancer screening using Cologuard test 1 Occurrences starting 10/09/2023 until 10/08/2024[facility] Work Phone: Comment on above:1 Occurrences starting 10/09/2023 until 10/08/2024 End: 95-96-0881SU Heart Perfusion W stress and W radionuclide [facility] Service Area Work Phone: Comment on above:Once for 1 Occurrences starting 11/23/2023 until 11/23/2023XR Shoulder - left 2 ViewsXR shoulder 2+ views left Imaging Routine Status post reverse arthroplasty of left shoulder 11/24/2024 11:31 AM [facility] Work Phone: XR Shoulder - left 2 ViewsXR shoulder 2+ views left Imaging Routine Status post reverse arthroplasty of left shoulder 02/07/2025 11:10 AM [facility] Work Phone: Immunizations Immunization DateImmunizationNotesCare RheelmgrMlnrbfsg20-13-2098Iojlbpmvw, Seasonal, Quadrivalent, AdjuvantedWilliam Jonny DO Work Phone: [facility]11-07-2023influenza virus vaccine, unspecified formulationJaneenmario Gibson [facility] 63-33-5766dfjpviiirp, tetanus toxoids and pertussis vaccineCharles P House Work Phone: [phone]-MtcdeStacy [place] [address] DO Work Phone: [phone] COVID-19 Vaccine 100 MCG/0.5ML Intramuscular SuspensionCharles P House Work Phone: [phone]-AqljhPerham Health Hospital 250 DO Work Phone: [phone]-AhsWFuhr COVID-19 Vacc 30 MCG/0.3ML Intramuscular SuspensionCharles P House Work Phone: mpPerham Health Hospital 250 DO Work Phone: [phone]-QmbADkmb COVID-19 Vacc 30 MCG/0.3ML Intramuscular SuspensionCharles P House Work Phone: [phone]-FkokaDeer River Health Care Center 250 DO Work Phone: [phone] Purple Cap HLGA-JpU-4Yupnrzl Sheldon DO Work Phone: [facility] Work Phone: [phone]) [phone]-UggGI COVID-19 Vac-Lawson 30 MCG/0.3ML Intramuscular SuspensionCharles P House Work Phone: [phone]-QudejDeer River Health Care Center 250 DO Work Phone: Comment on above:Series:36-98-6499Cjtchf Purple Cap WSIG-EfB-8Eulmpzg Sheldon DO Work Phone: [facility] Work Phone: [phone]-VjrZB COVID-19 Vac-Lawson 30 MCG/0.3ML Intramuscular SuspensionCharles P House Work Phone: [phone]-CmjfmDeer River Health Care Center 250 DO Work Phone: Comment on above:Series: Payers DatePayer CategoryPayerPolicy [id number] MEDICARE UHC MEDICARE DUAL COMPLETE [id number] 2023-Present [phone] [id number] [place] [id number] Medicare (Managed Care)[employer] MEDICARE Member Subscriber Plan / Payer (Effective 2023-Present) Name: Barry Galdamez Relation to Subscriber: Self Name: Barry Galdamez Payer ID: [id number] (NAIC) Group ID: Not on file Type: Not on file Address: [address] [place] [id number] Eligibility Medicare/Medicaid OrganizationUNITED HEALTHCARE DUAL COMPLETE [id number]hk Health InsuranceUNITED HEALTHCARE DUAL COMPLETE [facility] DUAL COMPLETE [id number] 2022-Present [address] [address] [place] [address] [id number] 2020Medicaid 1.2.840.564903.1.1[id number] [id number] [id number] [id number] [id number] 2.16840.1.046070.3.579.2.29682-22-1815Nrnpmgx4724879 2.16840.1.543717.3.579.2.50064-53-3002Ratkgxx1530017 2.840.1.647143.3.579.2.42190-41-0874Awbdvts6204777 2.840.1.135254.3.579.2.44389-78-8180Brkmdud2285184 2.16.840.1.682429.3.579.2.61371-44-0416Kauerwh8375209 2.16840.1.046171.3.579.2.81439-97-8267Aupttdd8408732 2.16840.1.872436.3.579.2.66735-77-7228Mbsqynz6523763 2.16840.1.697101.3.579.2.57913-93-3912Leoqcpx762279634 2.16840.1.100936.3.579.2.83771-08-8444Vzlziel743853721 2.840.1.340492.3.579.2.97582-66-9134Qkxqybf365371305 2.840.1.774293.3.579.2.88085-96-0493Qfdfjad71538085 2.840.1.873231.3.579.2.635028-05-7773Iqkzelm4873475 2.840.1.492939.3.579.2.661954-25-8706Fkieazw3156850 2.840.1.101606.3.579.2.217757-29-8391Qxoxwmf6818226 2.840.1.258698.3.579.2.326708-57-4665Oyyphgg1568753 2.840.1.144643.3.579.2.192793-84-2357Nmjntvb4426136 2.840.1.646290.3.579.2.664158-95-9394Dubmahn23484883 2.16840.1.314163.3.579.2.55998-09-5271Srdfntl21871208 2.840.1.372851.3.579.2.57446-11-5045Uanibcc12124451 2.16840.1.381116.3.579.2.14986-66-9865Mdzcmfw79842476 2.16.840.1.576847.3.579.2.29201-64-0025Ylojgfk25723594 2.16840.1.963458.3.579.2.57943-68-4731Ruwkcvt86579447 2.16840.1.247065.3.579.2.51269-69-4944Coifmtf50819935 2.840.1.498675.3.579.2.82687-85-0066Ccuitme13537925 2.840.1.076122.3.579.2.70491-28-6394Xocxpry49134853 2.840.1.697532.3.579.2.90709-82-9388Fguilrk90518771 2.840.1.078606.3.579.2.72268-19-9451Nberkbr60317213 2.840.1.904324.3.579.2.79886-12-3657Tyjagpp45686641 2.840.1.722380.3.579.2.00447-53-9878Cjwdjbc78280827 2.16840.1.720008.3.579.2.78999-84-2386Zjunaon40026093 2.16840.1.668137.3.579.2.63803-94-3487Zznigfb81091467 2.16840.1.634127.3.579.2.05143-32-7015Kcbywwc88482891 2.840.1.526605.3.579.2.41642-09-8958Dqcemwu40337914 2.16.840.1.367836.3.579.2.29605-02-5135Icjekwe22210733 2.16.840.1.808070.3.579.2.72399-75-8187Lfwukrv85627536 2.16.840.1.286216.3.579.2.51418-86-8676Atwflqy55235362 2.16840.1.126619.3.579.2.76779-35-7928Ermdrda426155961 2.16840.1.074238.3.579.2.496631-07-9580Fjrqifv95204357 2.16840.1.947341.3.579.2.789279-20-6846Dyyflii97736126 2.16840.1.748614.3.579.2.080130-93-7926Ofiwmos19615328 2.840.1.020455.3.579.2.675894-36-3717Uworcbk44976724 2.16840.1.715211.3.579.2.433105-58-1323Fgwwbce48567863 2.16840.1.548747.3.579.2.969563-77-9854Fcojbmu16939802 2.840.1.646699.3.579.2.790255-65-7407Ernmyev49676793 2.16840.1.881565.3.579.2.176539-26-7426Mdrkejw56936187 2.16840.1.701215.3.579.2.110769-93-2802Yotutln53941791 2.16840.1.506986.3.579.2.403987-94-1122Gpbtewg96609834 2.16.840.1.362742.3.579.2.328780-08-6574Ycqwbdp63583886 2.16.840.1.946251.3.579.2.792700-55-1278Yachehm87867469 2.16.840.1.568834.3.579.2.156071-02-9017Knkjeln19985317 2.16.840.1.841985.3.579.2.128339-25-9606Oenrhqd93389675 2.16.840.1.407624.3.579.2.020127-01-4041Xmtkdkg60201447 2.16.840.1.104963.3.579.2.259823-75-6890Vymzchs8309449 2.16.840.1.056436.3.579.2.049196-93-9295Sgopwcs9946781 2.16.840.1.529902.3.579.2.238376-43-0159Cboxozf7679212 2.16.840.1.451773.3.579.2.688006-38-1861Bdunzcw9823454 2.16.840.1.762956.3.579.2.310107-77-9232Mxyadsg7447337 2.16.840.1.472912.3.579.2.412266-68-2273Jzewlke5343171 2.16.840.1.241048.3.579.2.782966-17-8517Rtdhsoi0235776 2.16.840.1.358373.3.579.2.350464-24-7068Lacthbh6488674 2.16.840.1.292154.3.579.2.672913-45-6123Qysywyn8243665 2.16.840.1.413629.3.579.2.846701-24-5835Laowrog4424237 2.16.840.1.914516.3.579.2.151753-46-7881Mroinze6180260 2.16.840.1.394306.3.579.2.161271-81-3302Nunnxlf3886205 2.16.840.1.801465.3.579.2.240431-91-8605Bufmwav83438680 2.16.840.1.428336.3.579.2.09310-98-2872Lqvwwox71903094 2.16.840.1.539042.3.579.2.93360-89-8976Ugwzsep20334479 2.16.840.1.953386.3.579.2.37455-94-4898Eubzciy82443020 2.16.840.1.982372.3.579.2.96948-85-1436Nwybfka36119476 2.16.840.1.720788.3.579.2.718Medicare8E14EX1CM79 89128n83-b591-2k09-0q1w-0li50874250oNbqzuewXcxtxsq54934927704 2.16.840.1.480003.14Qimurdb21174144 2..840.1.251288.3.579.2.642Hrgnzno07489095 2.16.840.1.726289.3.579.2.531 Social History DateTypeDetailFacilityStart: 10-22-2023 End: 86-46-6733Sezgow smokerFormer smokerUnfold Other Comment on above:quit as a teen;1 daily;pop 1 daily; Start: 10-22-2023 End: 57-22-8687Cnk Assigned At BirthDriftwood BancABC Other Start: 09-30-2023 End: 90-65-0314Cqebkmg smoking status NHISNever smoked tobacco (finding) [facility]art: 89-76-0686Acb Assigned At BirthMale [facility] Centertart: 05-25-2023 End: 40-64-0906Zohlgjx smoking status NHISEx-smokerProLake [facility] Community [facility] History of tobacco useCurrent smokerProLake Martin Community Hospital Health SystemHistory of tobacco useCigarette SmokerKettering Health – Soin Medical Center SystemStart: 10-22-2023 End: 90-65-3619Rffsfmn intakeLifetime non-drinker (finding)[facility] Work Phone: Start: 67-97-7499Qge Assigned At Community HealthNot on file [facility] Touch Payments SystemStart: 10-12-2023 End: 37-64-3094Vftmrlji to SARS-CoV-2 (event)Not [facility] HospitalStart: 11-18-2023 End: 57-62-9554Isddfoy use and exposureSmokeless tobacco non-userSumma Health [facility] Campus Health SystemStart: 87-24-8243Mjygmluoh beverage intakeEx-drinker (finding) [facility] Touch Payments SystemStart: 02-57-3434MhcctqqzyUvjbdzdZukYljyth Health System Start: 69-07-2830Nldljew CommentSmoked for a short time as a teenagerSumma Health Akron Campus Health SystemStart: 53-63-3407XfvMakj (finding)[facility] Medical Equipment Procedure CodeEquipment CodeEquipment Original TextEquipment IdentifierDatesCL STENT PACO 2.25 X 18FDAStart: 70-32-9382Flzj-eluting coronary artery stent, fno-fsynengmjgbjt-tkouucn-coated()[id number] FDAStart: 91-93-7070Vuli-eluting coronary artery stent, pdw-cavnqfxfzracl-vachzzu-coated ()[id number] FDAStart: 25-43-9147DS STENT PACO 2.25 X 18FDA Start: 11-25-2021 Functional Status FcwmEqbdxgwztwMucaggLvwruokd45-75-8574Swnlwrfxzn hsuaaw225/60[facility] Work Phone: 1(757) 376-69981354136-32-3577Ncixh signs64 05/04/2025 2:22 PM EDT Liliana Bruner, [facility] Work Phone: 1(222) [phone] Hospital [facility] Work Phone: Clinical Notes 08-08-2021 to 05-13-2025 Note Date & OzawUtnlHjbsvedk14-97-5390 NoteEntered by JOE MADDOX DO on May 13, 2025 18:39:45 EDT From: JOE MADDOX DO To: [facility]/pharmacy #[id number] Sent: 05/13/2025 18:39:45 EDT Subject: Medication Management Submitted: Complete:meclizine (meclizine 25 mg oral tablet) Signed by JOE MADDOX DO 05/13/2025 18:39:00 EDT Submitted: Complete:metoprolol (Metoprolol Succinate ER 50 mg oral tablet, extended release) Signed by JOE MADDXO DO 05/13/2025 18:39:00 EDT Approved with modifications: metoprolol (METOPROLOL SUCC ER 50 MG TAB) TAKE 1 TABLET BY MOUTH EVERY DAY Qty: 90 tab(s) Days Supply: 90 Refills: 1 Substitutions Allowed Route To Pharmacy - [facility]/pharmacy #[id number] Approved with modifications: meclizine (MECLIZINE 25 MG TABLET) TAKE 1 TABLET BY MOUTH THREE TIMES A DAY Qty: 90 tab(s) Days Supply: 30 Refills: 2 Substitutions Allowed Route To Pharmacy - [facility]/pharmacy #[id number] From: [id number] To: JOE MADDOX DO Sent: May 13, 2025 6:33:33 AM CDT Subject: Medication Management Due: May 14, 2025 12:02:59 AM CDT On Hold Pending Signature Dispensed Drug: metoprolol (Metoprolol Succinate ER 50 mg oral tablet, extended release), TAKE 1 TABLET BY MOUTH EVERY DAY Quantity: 90 tab(s) Days Supply: 90 Refills: 1 Substitutions Allowed Notes from Pharmacy: On Hold Pending Signature Dispensed Drug: meclizine (meclizine 25 mg oral tablet), TAKE 1 TABLET BY MOUTH THREE TIMES A DAY Quantity: 90 tab(s) Days Supply: 30 Refills: 2 Substitutions Allowed [facility] History of Present illness Narrative* Addy Fuller, DO - 05/04/2025 2:20 PM EDT Chief Complaint Patient presents with Follow-up 1 year Coronary artery disease involving nenana coronary artery of nenana heart without angina pectoris Subjective Barry Galdamez is a 69 y.o. male 69-year-old gentleman returns for annual cardiovascular follow-up and doing reasonably well he has had rare episodes of chest discomfort; denies any nitrate usage or hospitalizations; has underlying new diagnosis of pulmonary fibrosis but currently on Breztri only. Examination does not reveal any significant respiratory distress or crackles on my exam He has known ASHD with prior extensive PCI of the mid and distal LAD with Dr. Landers and diagonal branch details below; prior TX, and then subsequently normal stress testing 2023 see details below: November 2021 he underwent non-ST elevation TX with primary revascularization of the LAD diagonal branchperformed by Dr. Elieser Landers, utilizing a 2.5 x 34 mm Paco stent to the distal LAD, 2.75 x 18 mm Paco stent in the mid LAD, and a 2.25 x 18 mm Silver Star stent to the diagonal branch at the bifurcation. Left ventricular function was completely normal other than apical hypokinesis at the time of the event. As mentioned in my last office visit, we reinitiated his clopidogrel and nitrate for concerns of angina he is not on aspirin due to GI bleed history Comorbidities are noted for hypertension, hyperlipidemia and obesity. Stress perfusion imaging from October 2023 revealed completely normal left ventricular function with ejection fraction 63% no evidence for ischemia or infarction. Recommendations: Continue current therapies obtain lipid panel, chemistry panels, liver function test, continue and prescribe current medications, follow- up with nurse practitioner in 9 months Review of Systems Cardiovascular: Positive for chest pain. All other systems reviewed and are negative. Vitals: 05/04/25 1422 BP: 114/60 BP Location: Left arm Patient Position: Sitting Pulse: 64 Weight: 106 kg (234 lb) Height: 1.829 m (6') Objective Physical [...] normal. Allergies Aspirin Current Medications Current Outpatient Medications Medication Instructions albuterol 90 mcg/actuation inhaler 2 puffs, Every 4 hours PRN atorvastatin (LIPITOR) 80 mg, oral, Nightly Breztri Aerosphere 160-9-4.8 mcg/actuation HFA aerosol inhaler 2 puffs, 2 times daily RT clopidogrel (Plavix) 75 mg tablet TAKE 1 TABLET BY MOUTH THURSDAY THROUGH THURSDAY gabapentin (NEURONTIN) 800 mg, 3 times daily meloxicam (Mobic) 15 mg tablet 1 tablet, Daily metoprolol succinate XL (TOPROL-XL) 25 mg, oral, Daily nitroglycerin (NITROSTAT) 0.4 mg, sublingual, Every 5 min PRN traMADol (Ultram) 50 mg tablet 1 tablet, 2 times daily PRN traZODone (Desyrel) 50 mg tablet 1 tablet, Nightly valsartan (DIOVAN) 160 mg, oral, Daily Assessment/Plan 1. Coronary artery disease involving nenana coronary artery of nenana heart without angina pectorisFollow Up In Cardiology 2. History of PTCA 3. Pulmonary interstitial fibrosis (Multi) 4. Former cigarette smoker 5. Mixed hyperlipidemia 6. Hypertension, benign 7. BMI 31.0-31.9,adult Scribe Attestation By signing my name below, I, Lewis Larsen LPN attest that this documentation has been prepared under the direction and in the presence of Mariam Fuller DO. Provider Attestation - Scribe documentation All medical record entries made by the Scribe were at my direction and personally dictated by me. Ihave reviewed the chart and agree that the record accurately reflects my personal performance of the history, physical exam, discussion and plan. [facility] Work Phone: [phone] 434-459710-16-2025 Instructions* Patient Instructions* Patricia Singh LPN - 05/04/2025 2:20 PM EDT Please bring all medicines, vitamins, and herbal supplements with you when you come to the office. Prescriptions will not be filled unless you are compliant with your follow up appointments or have a follow up appointment scheduled as per instruction of your physician. Refills should be requested at the time of your visit. BMI was above normal measurement. Current weight: 106 kg (234 lb) Weight change since last visit (-) denotes wt loss -8 lbs Weight loss needed to achieve BMI 25: 50.1 Lbs Weight loss needed to achieve BMI 30: 13.3 Lbs Provided instructions on dietary changes. * Attachments The following attachments cannot be sent through Care Everywhere. * Heart Healthy Diet ([place]) documented in [facility]Reg[facility] Work Phone: [phone] 475-549710-16-2025 NoteEntered by JOE MADDOX DO on May 04, 2025 07:35:51 EDT From: JOE MADDOX DO To: [facility]/pharmacy #[id number] Sent: 05/04/2025 07:35:51 EDT Subject: Medication Management Submitted: Complete:albuterol (Albuterol (Eqv-ProAir HFA) 90 mcg/inh inhalation aerosol) Signed by JOE MADDOX DO 05/04/2025 07:35:00 EDT Approved with modifications: albuterol (ALBUTEROL HFA (PROAIR) INHALER) INHALE 2 PUFFS EVERY 6 HOURS NEEDED Qty: 8.5 EA Days Supply: 25 Refills: 5 Substitutions Allowed Route To Pharmacy - [facility]/pharmacy #[id number] From: [id number] To: JOE MADDOX DO Sent: May 03, 2025 11:24:51 PM CDT Subject: Medication Management Due: May 04, 2025 12:03:21 AM CDT On Hold Pending Signature Dispensed Drug: albuterol (Albuterol (Eqv-ProAir HFA) 90 mcg/inh inhalation aerosol), INHALE 2 PUFFS EVERY 6 HOURS NEEDED Quantity: 8.5 EA Days Supply: 25 Refills: 5 Substitutions Allowed [id number] Note From: JOE MADDOX DO To: [facility] Clinical Pool ([facility]); Sent: 05/01/2025 12:27:43 EDT Subject: FW: Medication Management Due Date/Time: 05/02/2025 12:27:00 EDT Caller Name: BARRY GALDAMEZ; Caller Number: Anne , M From: [employer] To: JOE MADDOX DO Sent: May 01, 2025 11:27:04 AM CDT Subject: Medication Management Due: May 02, 2025 12:05:06 AM CDT On Hold Pending Signature Dispensed Drug: traMADol (traMADol 50 mg oral tablet), TAKE 1 TABLET BY MOUTH EVERY 12 HOURS NEEDED FOR PAIN Quantity: 60 tab(s) Days Supply: 30 Refills: 0 Substitutions Allowed Notes from Pharmacy: Not to exceed 5 additional fills before 06/20/2025 From: Lissette Cummings MA To: [facility]/pharmacy #[id number] Sent: 05/01/2025 13:55:37 EDT Subject: FW: Medication Management Not Approved: Refill not appropriate, PROPOSAL SENT TO PROVIDER FOR SIGNATURE. traMADol (TRAMADOL HCL 50 MG TABLET) TAKE 1 TABLET BY MOUTH EVERY 12 HOURS NEEDED FOR PAIN Qty: 60 tab(s) Days Supply: 30 Refills: 0 Substitutions Allowed Route To Pharmacy - [facility]/pharmacy #[id number] Note from Pharmacy: Not to exceed 5 additional fills before 06/20/2025 Signed by Lissette Cummings [facility]09-23-2025 Note From: JOE MADDOX DO To: [facility] Clinical Pool ([facility]); Sent: 04/11/2025 07:36:41 EDT Subject: FW: Medication Management Due Date/Time: 04/12/2025 00:31:00 EDT Caller Name: BARRY GALDAMEZ; Caller Number: , Omayra From: [employer] To: JOE MADDOX DO Sent: April 10, 2025 11:31:03 PM CDT Subject: Medication Management Due: April 11, 2025 4:17:59 PM CDT On Hold Pending Signature Dispensed Drug: gabapentin (gabapentin 800 mg oral tablet), TAKE 1 TABLET BY MOUTH THREE TIMES A DAY Quantity: 90 tab(s) Days Supply: 30 Refills: 2 Substitutions Allowed Notes from Pharmacy: From: Katelin Bazan To: [id number] Sent: 04/11/2025 08:39:43 EDT Subject: FW: Medication Management Not Approved: proposed to provider gabapentin (GABAPENTIN 800 MG TABLET) TAKE 1 TABLET BY MOUTH THREE TIMES A DAY Qty: 90 tab(s) Days Supply: 30 Refills: 2 Substitutions Allowed Route To Pharmacy - [facility]/pharmacy #[id number] [facility] [place] History of Present illness Narrative* Crys Byrne - 02/07/2025 2:00 PM EDT Images from the original note [...] 40 mg, Daily Sodium Sulfate-Mag Sulfate-KCl (Sutab) [id number] MG tablet tadalafil (CIALIS) 20 mg, Daily [...] record were reviewed two view shoulder AP Stephen saved to the permanent record in the [place] office shows stable position and alignment of [...] 02/13/2025 2:18 PM EDT documented in this encounterCedar County Memorial HospitalKjozcmljtg88-15-4278 Note From: JOE MADDOX DO To: [facility] Clinical Pool ([facility]); Sent: 01/15/2025 16:46:47 EDT Subject: FW: Medication Management Due Date/Time: 01/16/2025 07:37:00 EDT Caller Name: BARRY GALDAMEZ; Caller Number: Anne , From: [employer] [id number] To: JOE MADDOX DO Sent: January 15, [...] 3 Substitutions Allowed Route To Pharmacy - [facility]/pharmacy #[id number] Signed by Katelin Bazan 01/16/2025 07:45:00 EDT Submitted: Complete:ketoconazole topical (ketoconazole 2% topical shampoo) Signed by Katelin Bazan 01/16/2025 07:45:00 EDT Not Approved: New Rx to follow ketoconazole topical (KETOCONAZOLE 2% SHAMPOO) USE DIRECTED ON PACKAGE LABELING Qty: 120 mL Days Supply: 30 Refills: 3 Substitutions Allowed Route To Pharmacy - [facility]/pharmacy #[id number] Signed by Katelin Bazan From: Katelin Bazan To: [facility]/pharmacy #[id number] Sent: 01/16/2025 07:47:52 EDT Subject: FW: Medication Management Not Approved: proposed to provider gabapentin (GABAPENTIN 800 MG TABLET) TAKE 1 TABLET BY MOUTH THREE TIMES A DAY Qty: 90 tab(s) Days Supply: 30 Refills: 2 Substitutions Allowed Route To Pharmacy - [facility]/pharmacy #[id number] Signed by Beni [facility]06-03-2025 History of Present illness Narrative* Margarita Andre, PT - 12/20/2024 1:30 PM EDT Images from the original [...] sleeping due to left shoulder pain. Precautions: [place], [place], Left GRICEL Subjective: Pt states he tripped and fell yesterday and landed on left shoulder. Shoulder was sore last night but feels back to normal today. Will see again in January. Pain: 10. Objective: PT Evaluation (12/01/2024) Left SHOULDER AROM: [...] minutes) Strength, Endurance, Flexibility, ROM, HEP, Neural Mobilization,Power, and Core Stability as needed. Pt performed [...] to be instructed in home exercise program. System Admin Goals: To be met in 10 weeks [...] Please sign below. Date: documented in this encounterCedar County Memorial [id number] History of Present illness Narrative* Margarita Andre PT - 12/15/2024 1:30 PM EDT Images from the original [...] sleeping due to left shoulder pain. Precautions: [place], [place], Left GRICEL Subjective: Pt states he [...] minutes) Strength, Endurance, Flexibility, ROM, HEP, Neural Mobilization,Power, and Core Stability as needed. Pt performed and instructed therex to improve shoulder ROM andfunctional tolerance. Therapeutic Activity: Exercises to improve dynamic [...] following left rev TSA. Decreased intensity of exercisesthis date due to pain. Pt with moderate [...] to be instructed in home exercise program. System Admin Goals: To be met in 10 weeks [...] Please sign below. Date: documented in this encounterCedar County Memorial HospitalYwmhlnumds28-21-4531 History of Present illness Narrative* Margarita Andre, PT - 12/13/2024 1:30 PM EDT Images from the original [...] sleeping due to left shoulder pain. Precautions: [place], [place], Left GRICEL Subjective: Pt with no [...] minutes) Strength, Endurance, Flexibility, ROM, HEP, Neural Mobilization,Power, and Core Stability as needed. Pt performed and instructed therex to improve shoulder ROM andfunctional tolerance. Therapeutic Activity: Exercises to improve dynamic [...] to be instructed in home exercise program. System Admin Goals: To be met in 10 weeks [...] Please sign below. Date: documented in this encounterCedar County Memorial HospitalSmkhocrybp42-24-4891 NoteEntered by JOE MADDOX DO on December 12, 2024 10:37:39 EDT From: JOE MADDOX DO To: [facility]/pharmacy #[id number] Sent: 12/12/2024 10:37:39 EDT Subject: Medication Management Submitted: Complete:albuterol (Ventolin HFA 90 mcg/inh inhalation aerosol) Signed by JOE MADDOX DO 12/12/2024 10:37:00 EDT Approved with modifications: albuterol (ALBUTEROL HFA (PROAIR) INHALER) INHALE 2 PUFFS EVERY 6 HOURS NEEDED Qty: 8.5 EA Days Supply: 25 Refills: 5 Substitutions Allowed Route To Pharmacy - [facility]/pharmacy #[id number] From: [id number] To: JOE MADDOX DO Sent: December 10, 2024 8:39:04 AM CDT Subject: Medication Management Due: December 11, 2024 12:14:07 AM CDT On Hold Pending Signature Dispensed Drug: albuterol (Albuterol (Eqv-ProAir HFA) 90 mcg/inh inhalation aerosol), INHALE 2 PUFFS EVERY 6 HOURS NEEDED Quantity: 8.5 EA Days Supply: 25 Refills: 5 Substitutions Allowed [facility]Lewkffiz57[facility] History of Present illness Narrative* Crys Byrne - 11/24/2024 2:00 PM EDT Images from the original note were not included. Barry Galdamez is a 69 y.o. male presents with chief complaint of PO < 90 days status post left reverse total shoulder arthroplasty. HPI: Barry is here for his left shoulder replacement from a month out. His pain is controlled. He deniesany numbness or tingling. No falls or trauma [...] 40 mg, Daily Sodium Sulfate-Mag Sulfate-KCl (Sutab) [id number] MG tablet tadalafil (CIALIS) 20 mg, Daily [...] 11/29/2024 10:07 AM EDT documented in this encounterCedar County Memorial HospitalZogufbphhh58-20-8777 NoteEntered by JOE MADDOX DO on November 20, 2024 20:47:16 EDT From: JOE MADDOX DO To: [facility][id number] Sent: 11/20/2024 20:47:16 EDT Subject: Medication Management Submitted: Complete:meclizine (meclizine 25 mg oral tablet) Signed by JOE MADDOX DO 11/20/2024 20:47:00 EDT Approved with modifications: meclizine (MECLIZINE 25 MG TABLET) TAKE 1 TABLET BY MOUTH THREE TIMES A DAY Qty: 90 tab(s) Days Supply: 30 Refills: 2 Substitutions Allowed Route [facility] - [id number] From: [id number] To: JOE MADDOX DO Sent: November 18, 2024 11:14:03 AM CDT Subject: Medication Management Due: November 19, 2024 12:09:44 AM CDT On Hold Pending Signature Dispensed Drug: meclizine (meclizine 25 mg oral tablet), TAKE 1 TABLET BY MOUTH THREE TIMES A DAY Quantity: 90 tab(s) Days Supply: 30 Refills: 2 Substitutions Allowed [facility]Zsemyhwk66-81-3835 Note Entered by JOE MADDOX DO on November 07, 2024 07:49:05 EDT From: JOE MADDOX DO [id number] Sent: 11/07/2024 07:49:05 EDT Subject: Medication Management Approved with modifications: silver sulfADIAZINE topical (SILVER SULFADIAZINE 1% CREAM) APPLY TO AFFECTED AREA TWICE A DAY Qty: 400 gm Days Supply: 30 Refills: 1 Substitutions Allowed [id number] From: [facility] To: JOE MADDOX DO Sent: November 06, 2024 2:19:24 PM CDT Subject: Medication Management Due: November 07, 2024 12:22:49 AM CDT On Hold Pending Signature Dispensed Drug: silver sulfADIAZINE topical (silver sulfADIAZINE 1% topical cream), APPLY TO AFFECTED AREA TWICE A DAY Quantity: 400 gm Days Supply: 30 Refills: 1 Substitutions Allowed Notes [facility]Bryiqjhu03-73-6037 Note Progress Note-Physician Patient: BARRY GALDAMEZ Age: 69 years Sex: Male : 1955 Associated Diagnoses: None Author: Shiraz FARFAN, Chad Madden Postoperative Information Postoperative disposition: Postoperative disposition: To PACU. Optimetrix number: Optimetrix number [id number]. Anesthetic utilized: General. Regional: Interscalene Block. Health Status Allergies: Allergic Reactions (Selected) No Known Allergies Physical Examination VS/Measurements Pain Assessment: Controlled. General: Awake, Appropriate. Respiratory: Adequate air exchange. Cardiovascular: Stable. Neurological Assessment Anesthetic outcome No anesthetic complications noted. Adequate pain relief. Review / Management Condition: Stable. Plan Transfer/Discharge: Transfer/Discharge Discharge when meets criteria ( To home ).[facility] HospitalComment on above:Result Comment: Electronically Signed By: Shiraz FARFAN, Chad Madden\.br\Date and Time Signed: 10/26/24 12:58 EDT 10-24-2024 NotePatient Education - Text Pulmonary Medicine How to [...] pain medicine before doing incentive spirometry. It isharder to take a deep breath if you [...] mouth, causing the piston or the ball torise toward the top of the chamber. 6. Hold your breath for 3?5 seconds, or for as long as possible. ??? If the spirometer includes a men's swim coach indicator, use this to guide you [...] provider. Document Revised: 09/24/2020 Document Reviewed: 09/24/2020 Else[employer]Jam Patient Education ? 2023 [employer]. [place], [place] [facility] DISCHARGE INSTRUCTIONS: SHOULDER REPLACEMENT MEDICATIONS You will be given a prescription for pain medication. This should be taken with food as needed. This may cause stomach upset, dizziness, and possible constipation. Please notify the offi (more content not included)...[facility]04-07-2025 NoteProgress Note-Physician Patient: BARRY GALDAMEZ Age: 69 years Sex: [...] Using maximal sterile barrier technique per current CMS guidelines including hand hygeine, Guidance (Ultrasound used to identify anatomical landmarks, Using sterile gel and probe covers, Permanent image retained), The site was prepped with ChloraPrep. Procedure: Anesthetic Agent local 3cc 2% lido; 22g 50mm insulated echogenic block needle with US; 20cc .5% Ropivicaine with epi 5mcg//cc in increments; low pressure; needle tip visualized throughout;motor response between .5 and .25 mAmps. Early [...] idetified that the correct anesthetic agent was admini stered to the correct site. Complications: None, The patient tolerated the procedure as expected.[facility] HospitalComment on above:Result Comment: Electronically Signed By: Chad Weldon MD\.br\Date and Time Signed: 10/24/24 08:22 [id number] Note Progress Note-Physician Patient: BARRY GALDAMEZ Age: 69 years Sex: [...] Routine, Start date 10/24/24 8:30:00 EDT, 10/24/24 8:30:00EDT Lactated Ringers IV Dilma 1000 mL 1,000 [...] mL, IV, 150 mL/hr, Routine, Start date 256:00:00 EDT, 6.7 hour(s), Total volume (mL): 1,000, [...] BID, # 20 cap(s), Refills(s) 0, [id number], 184.4, cm, 10/12/24 5:32:00 EDT, Height/Length Dosing, 109.8, kg, 10/12/24 5:32:00 EDT, Weight Dosing Percocet 5 mg-325 mg oral tablet: See Instructions, 40 tab(s), Refill(s) 0, Take one to two oral every 4 hours as needed for surgical pain., [facility]/pharmacy #[id number], 184.4, cm, 10/12/24 5:32:00 EDT, Height/Length Dosing, 109.8, kg, 10/12/24 5:32:00 EDT, Weight Dosing naloxone 0.4 mg/mL Inj: 0.4 mg = 1 mL, IntraMuscular, As Directed, for suspected overdose. (dispense 2 vials 0.4 mg/ml with syringes and needles for dose administration), # 1 kit(s), Refills(s) 0, [id number], 182.9, cm, 10/15/23 10:08:00 EDT, Height/Length... naloxone 4 mg/0.1 mL nasal spray: 4 mg, Nasal, As Directed, for suspected overdose symptoms, # 1 kit(s), Refills(s) 0, Pharmacy: [facility] #[id number], 182.9, cm, 10/15/23 10:08:00 EDT, Height/Length Dosing, 116.8, kg, 10/15/23 10:08:00 EDT, Weight Dosing Documented Medications Documented Albuterol (Eqv-ProAir HFA) 90 mcg/inh inhalation aerosol: 2 inh, Inhalation, Shortness of breath orwheezing, Refill(s) 0 Breztri Aerosphere inhalation aerosol: Inhalation, Shortness of breath or wheezing, Refill(s) 0 Co Q-10: Daily, Refills(s) 0 Metoprolol tartrate 50 mg Ta (more content not included)...[facility] HospitalComment on above:Result Comment: Electronically Signed By: Shiraz FARFAN, Chad Madden\.br\Date and Time Signed: 10/24/24 07:18 [id number] NotePatient Education - Text [place], [place] [facility] DISCHARGE INSTRUCTIONS: SHOULDER REPLACEMENT [...] pain at the operative site, or the developmentof persistent vomiting. Sander Cardoza, DO [facility] [address] [place] [address] Reviewed: [facility]02-25-2025 History of Present illness Narrative* Crys Byrne - 09/13/2024 1:00 PM EST Images from the original note were not included. Barry Galdamez is a 69 y.o. male presents with chief complaint of left shoulder pain and stiffness. HPI: Barry is here of which he is having continued shoulder pain. He saw physician resident assistant Jose Aponte,injection provided partial relief for a week or two. He has tried a home exercise program, ice, Tylenol and topicals. He has continued pain, stiffness, swelling and irritability. No fever or chills. No falls or trauma. He is having night disruption. He would like to move forward with further discuss ion of replacement. SUBJECTIVE: MEDICATIONS: Current Outpatient Medications Medication Instructions atorvastatin (LIPITOR) 80 mg, Nightly benzonatate (Tessalon) 100 MG capsule TAKE 1 CAPSULE BY MOUTH THREE TIMES A DAY NEEDED FOR COUGH BrezClarassancei Aerosphere 160-9-4.8 MCG/ACT aerosol 2 puffs, 2 [...] LABELING, # 120 mL, 3 Refill(s), Pharmacy: [facility]/pharmacy #[id number], USE DIRECTED ON PACKAGE LABELING, 184, cm, [...] 40 mg, Daily Sodium Sulfate-Mag Sulfate-KCl (Sutab) [id number] MG tablet Please see instructional sheet given [...] record, are reviewed show end stage degenerative changesof the inferior half of the glenohumeral joint. It is grade IV severe in nature. There is mild decrease in the acromiohumeral interval. There is no fracture, dislocation, tumor or infection seen. These are reviewed from the permanent record in the [place] office taken at last visit. ASSESSMENT AND PLAN: Assessment/Plan Left shoulder end stage osteoarthritis; chronic cuff arthropathy, failure of conservative and injection management. The nature of the findings were discussed at length. Ice, Tylenol and topicals have failed. Cortisone injection provided temporary relief. We will set up a CT scan with 3D VidSys blueprint. We will set up for further review and depiction of pathology and treatment options. He voices verbalunderstanding. He is discharged in stable condition. Follow [...] 09/16/2024 10:33 AM EST documented in this encounterCedar County Memorial HospitalMexzqmyjsm86-77-2768 History of Present illness Narrative* Kassy Mckeon MA - 06/22/2024 2:00 PM ESTAssociated Order(s): L Inj/Asp: L glenohumeral Post-Procedure Diagnose(s): [...] time out was called to verify the correctpatient, procedure, equipment, merchandise support associate and site/side marked as required. Patient was prepped and draped in the usual sterile fashion. 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 He has associated dgzq-ya-gpor changes to the humeral head and glenoid [...] 2 bulbous acromial hook. He has associated quek-zi-tupm changes to the humeral head and glenoid [...] 3 injections a year. If intolerant to anti- inflammatories than Tylenol the beneficial for daytime discomfort as well as cold pack 20 minutes several times a day. At some point may need to discuss reverse shoulder arthroplasty with Dr. Cardoza. JAMSHID Villa documented in this encounterCedar County Memorial HospitalEqhsqrfplt65-03-5842 Instructions* Patient Instructions* JAMSHID Villa - 06/22/2024 2:00 PM EST Would anticipate improvement with cortisone given today after about 48 hours up to 1 week. May repeat in 4 weeks if necessary and or ideally repeat every 4 months as your allowed to receive 3 injections a year. If intolerant to anti- inflammatories than Tylenol the beneficial for daytime discomfort as well as cold pack 20 minutes several times a day. At some point may need to discuss reverse shoulder arthroplasty with Dr. Cardoza. documented in this [facility]11-26-2024 NoteEntered by JOE MADDOX DO on June 14, 2024 06:56:19 EST From: JOE MADDOX DO To: [facility]/pharmacy #[id number] Sent: 06/14/2024 06:56:19 EST Subject: Medication Management Submitted: Complete:valsartan (valsartan 160 mg oral tablet) Signed by JOE MADDOX DO 06/14/2024 06:56:00 EST Approved with modifications: valsartan (VALSARTAN 160 MG TABLET) TAKE 1 TABLET BY MOUTH EVERY DAY Qty: 90 tab(s) Days Supply: 90 Refills: 1 Substitutions Allowed Route To Pharmacy - [facility]/pharmacy #[id number] From: [facility] To: JOE MADDOX DO Sent: June 12, 2024 7:01:52 PM ORDER TO DELIVERY SUPERVISOR Subject: Medication Management Due: June 13, 2024 12:04:03 AM ORDER TO DELIVERY SUPERVISOR On Hold Pending Signature Dispensed Drug: valsartan (valsartan 160 mg oral tablet), TAKE 1 TABLET BY MOUTH EVERY DAY Quantity: 90 tab(s) Days Supply: 90 Refills: 0 Substitutions Allowed [facility]Mgdupdng38-65-8569 Note Entered by JOE MADDOX DO on May 28, 2024 09:10:12 EST From: JOE MADDOX DO To: [facility]/pharmacy #[id number] Sent: 05/28/2024 09:10:12 EST Subject: Medication Management Submitted: Complete:traZODone (traZODone 50 mg oral tablet) Signed by JOE MADDOX DO 05/28/2024 09:10:00 EST Approved with modifications: traZODone (TRAZODONE 50 MG TABLET) TAKE 1 TABLET BY MOUTH EVERYDAY AT BEDTIME Qty: 90 tab(s) Days Supply: 90 Refills: 1 Substitutions Allowed Route To Pharmacy - [facility]/pharmacy #[id number] From: [facility] To: JOE MADDOX DO Sent: May 26, 2024 11:39:52 PM ORDER TO DELIVERY SUPERVISOR Subject: Medication Management Due: May 27, 2024 12:04:55 AM ORDER TO DELIVERY SUPERVISOR On Hold Pending Signature Dispensed Drug: traZODone (traZODone 50 mg oral tablet), TAKE 1 TABLET BY MOUTH EVERYDAY AT BEDTIME Quantity: 90 tab(s) Days Supply: 90 Refills: 1 Substitutions Allowed Notes [facility]Cwlkxnyx08-01-6237 Note Operative Report Diagnosis: Sacroiliitis, M46.1 Procedure: Bilateral diagnostic and therapeutic sacroiliac joint injections performed under fluoroscopic guidance Anesthesia: Local Complications: None After informed consent was obtained, the patient was brought back to the procedure room and placed in the prone position. Back areas prepped and draped in the usual sterile fashion using fluoroscopicguidance, the skin and subcutaneous tissues overlying the [...] procedure, and agrees to continue currently prescribed/recommended therapies.[facility] Comment on above:Result Comment: Electronically Signed By: García Castro DO\Date and Time Signed: 04/26/24 14:16 [id number] NoteConsultation Note Patient: BARRY GALDAMEZ Age: 68 years [...] day(s), # 90 tab(s), Refills(s) 2, [id number], 183, cm, 04/08/24 13:17:00 EDT, Height/Length Dosing, 110.9, kg, 04/08/24 13:17:00 EDT, Weight Dosing naloxone 0.4 mg/mL Inj: 0.4 mg = 1 mL, IntraMuscular, As Directed, for suspected overdose. (dispense 2 vials 0.4 mg/ml with syringes and needles for dose administration), # 1 kit(s), Refills(s) 0, [id number], 182.9, cm, 10/15/23 10:08:00 EDT, Height/Length... naloxone 4 mg/0.1 mL nasal spray: 4 mg, Nasal, As Directed, for suspected overdose symptoms, # 1 kit(s), Refills(s) 0, [id number], 182.9, cm, 10/15/23 10:08:00 EDT, Height/Length Dosing, 116.8, kg, 10/15/23 10:08:00 EDT, Weight Dosing traMADOL 50 mg Tab: 50 mg = 1 tab(s), Oral, Daily, take as needed for pain, X 30 day(s), # 30 tab(s), Refills(s) 0, [id number], 183, cm, 04/08/24 13:17:00 EDT, Height/Length Dosing,110.9, kg, 04/08/24 13:17:00 EDT, Weight Dosing Documented [...] All Problems HTN (hypertension) / SNOMED CT 1025419483 / Confirmed Hip pain, left / SNOMED CT 9970250849 / Confirmed DJD Nocturia / SNOMED CT 020364405 / Confirmed Asthma / SNOMED CT 419560260 / Confirmed Impingement syndrome of right shoulder / SNOMED CT 607474698 / Confirmed Carpal tunnel syndrome of right wrist / SNOMED CT 40023134 / Confirmed Osteoarthritis / SNOMED CT 4384659162 / Confirmed Arthritis / SNOMED CT 1530733 / Confirmed Depression / SNOMED CT 57721962 / Confirmed Hypertension / SNOMED CT 1780848289 / Confirmed Erectile dysfunction / SNOMED CT 1611510174 / Confirmed Asymptomatic microscopic hematuria / SNOMED CT 5482862212 / Confirmed Weak urine stream / SNOMED CT 951258575 / Confirmed Screening PSA (prostate specific antigen) / SNOMED CT 484622911 / Confirmed Foreign body in throat / SNOMED CT 43403174 / Confirmed Screen for colon cancer / SNOMED CT 531493935 / Confirmed Resolved: At risk for falls / SNOMED CT 198000081 Problem added when Risk for Falls Careplan [...] strength. Pain with compressi (more content not included)...[facility] Comment on above:Result Comment: Electronically Signed By: Ariana Urena PA-C\.deborah\Date and Time Signed: 04/08/24 13:27 [id number] NoteProgress Note-Physician Patient: BARRY GALDAMEZ Age: 68 years Sex: Male : 1955 Associated Diagnoses: None Author: Chad Weldno MD Preoperative Information Anesthesia Preop Info: Time [...] Daily, # 30 tab(s), Refills(s) 7, Pharmacy: [facility]/pharmacy #[id number], 182.9, cm, 09/23/23 5:29:00 EST, Height/Length Dosing, 109.8, kg, 09/23/23 5:29:00 EST, Weight Dosing gabapentin 800 mg Tab: See Instructions, 1.5 tabs TID, # 135 tab(s), Refills(s) 0, Pharmacy: [facility]/pharmacy #[id number], 182.9, cm, 10/15/23 10:08:00 EDT, Height/Length Dosing, 116.8, kg, 10/15/23 10:08:00 EDT, Weight Dosing naloxone 0.4 mg/mL Inj: 0.4 mg = 1 mL, IntraMuscular, As Directed, for suspected overdose. (dispense 2 vials 0.4 mg/ml with syringes and needles for dose administration), # 1 kit(s), Refills(s) 0, Pharmacy: [facility]/pharmacy #[id number], 182.9, cm, 10/15/23 10:08:00 EDT, Height/Length... naloxone 4 mg/0.1 mL nasal spray: 4 mg, Nasal, As Directed, for suspected overdose symptoms, # 1 kit(s), Refills(s) 0, Pharmacy: [facility]/pharmacy #[id number], 182.9, cm, 10/15/23 10:08:00 EDT, Height/Length [...] list: All Problems Arthritis / SNOMED CT 4867667 / Confirmed Asthma / SNOMED CT 423931115 / Confirmed Asymptomatic microscopic hematuria / SNOMED CT 4444836877 / Confirmed Carpal tunnel syndrome of right wrist / SNOMED CT 15307462 / Confirmed Depression / SNOMED CT 44655341 / Confirmed Erectile dysfunction / SNOMED CT 7034295040 / Confirmed Foreign body in throat / SNOMED CT 30949677 / Confirmed Hip pain, left / SNOMED CT 6504800964 / Confirmed DJD HTN (hypertension) / SNOMED CT 3517280628 / Confirmed Hypertension / SNOMED CT 0949885010 / Confirmed Impingement syndrome of right shoulder / SNOMED CT 772828922 / Confirmed Nocturia / SNOMED CT 558795433 / Confirmed Osteoarthritis / SNOMED CT 1704201486 / Confirmed Screen for colon cancer / SNOMED CT 915665675 / Confirmed Screening PSA (prostate specific antigen) / SNOMED CT 389672652 / Confirmed Weak urine stream / SNOMED CT 569554150 / Confirmed Resolved: At risk for falls / SNOMED CT 131479676 Problem added when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 [facility] Work Phone: Evaluation note* Diagnosis NSTEMI, initial episode of care ([facility]) Other cough Other fatigue HOPPER (dyspnea on exertion) Other dyspnea and respiratory abnormality documented in this encounter [facility] Work Phone: Evaluation note* Diagnosis Primary osteoarthritis of left shoulder- Primary Left shoulder pain, unspecified chronicity [facility] Diagnosis Positive colorectal cancer screening using Cologuard test documented in this encounter [facility] SystemEvaluation note* Diagnosis Positive colorectal cancer screening using Cologuard test- Primary Loose stools Abnormal feces documented in this encounter [facility] SystemEvaluation note* Diagnosis Left shoulder pain, unspecified [...] of left shoulder documented [facility]* Diagnosis Localized osteoarthritis of left shoulder- Primary Status post reverse arthroplasty of left shoulder documented [facility]* Diagnosis Localized osteoarthritis of left shoulder- Primary Status post reverse arthroplasty of left shoulder documented [facility]* Diagnosis Status post reverse arthroplasty of left shoulder- Primary documented in [facility]* Diagnosis Coronary artery disease involving nenana coronary artery of nenana heart without angina pectoris History of PTCA Postsurgical percutaneous transluminal coronary angioplasty status Pulmonary interstitial fibrosis (Multi) Postinflammatory pulmonary fibrosis Former cigarette smoker Personal history of tobacco use, presenting hazards to health Mixed hyperlipidemia Hypertension, benign Essential hypertension, benign BMI 31.0-31.9,adult documented in this encounter [facility] Work Phone: Evaluation note* Diagnosis S/P reverse total shoulder arthroplasty, left- Primary [facility] HealthcareHistory general Narrative - Reported* Type Description Date Medical History restless leg syndrome Medical HistoryhypertensionMedical HistoryArthritisSurgical Historyappendectomy Surgical HistorycolonoscopySurgical Historywisdom teeth extractSurgical History hip replacementSurgical Historyright shoulder arthritis removalSurgical History carpal tunnel [facility] [employer] Other History of Present illness Narrative* The [...] medication regimen. He denies medication side effects. -[facility] 250 DO Work Phone: InstructionsNot on filedocumented in this encounter [facility] [employer] SystemInstructionsNot on filedocumented in this encounter [facility] Touch Payments SystemInstructionsNot on filedocumented in this encounter [facility] SystemInstructionsNot on filedocumented in this encounter [facility]Reason [facility] Narrative* Consultation (Routine) - AuthorizedSpecialtyDiagnoses / ProceduresReferred By ContactReferred To ContactPhysical Therapy Diagnoses Status post reverse arthroplasty of left shoulder Procedures [place] OFFICE/OUTPATIENT NEW [facility] 60 MINUTES Sander Cardoza, DO [address] [place] [address] Phone: tel: fax: Margarita Andre, PT Referral IDSangel luistPanchitoStjensen beach DateExpiration DateVisits RequestedVisits [id number] Consult and Treat 59999 [facility] Narrative* Consultation (Routine) - Authorized SpecialtyDiagnoses / ProceduresReferred By ContactReferred To ContactPhysical Therapy Diagnoses Status post reverse arthroplasty of left shoulder Procedures [place] OFFICE/OUTPATIENT [facility] 60 MINUTES Sander Cardoza, DO [address] [place] [address] Phone: tel: fax: Margarita Andre, PT Referral Jewel DateExpiration DateVisits RequestedVisits [id number] Consult and Treat 59999 [facility] Chief Complaint Feeling great * BARRY GALDAMEZ is being seen for a 3 month follow-up of. * 66-year-old gentleman who returns for follow-up and is doing well other complaints of profound fatigue. He is otherwise ambulatory, working doing routine activities without distress or problems. He has no angina or recurrent hospitalizations. In November of this year he sustained non-ST elevation TX with subsequent revascularization of the LAD and [...] of this year he sustained non-ST elevation TX with subsequent revascularization of the LAD and [...] In November 2021 he underwent non-ST elevation TX with primary revascularization of the LAD diagonal branch performed by Dr. Elieser Landers, utilizing a 2.5 x 34 mm Silver Star stent to the distal LAD, 2.75 x 18 mm Silver Star stent in the mid LAD, and a [...] In November 2021 he underwent non-ST elevation TX with primary revascularization of the LAD diagonal branch performed by Dr. Elieser Landers, utilizing a 2.5 x 34 mm Silver Star stent to the distal LAD, 2.75 x 18 mm Silver Star stent in the mid LAD, and a 2.25 x 18 mm Silver Star stent to the diagonal branch at the [...] history of hypertensi on: Mother, Father(V17.49, Z82.49) Status:ActiveFamily history of congestive heart failure: Mother(V17.49, Z82.49) Status:Active Unknown Family Member Name Dates Details Family history of hypertensi on: Mother, Father(V17.49, Z82.49) Status:ActiveFamily history of congestive heart failure: Mother(V17.49, Z82.49) Status:Active Unknown Family Member Name Dates Details Family history of hypertensi on: Mother, Father(V17.49, Z82.49) Status:ActiveFamily history of congestive heart failure: Mother(V17.49, Z82.49) Status:Active Unknown Family Member Name Dates Details Family history of hypertensi on: Mother, Father(V17.49, Z82.49) Status:ActiveFamily history of congestive heart failure: Mother(V17.49, Z82.49) Status:Active Unknown Family Member Name Dates Details Family history of hypertensi on: Mother, Father(V17.49, Z82.49) Status:ActiveFamily history of congestive heart failure: Mother(V17.49, Z82.49) Status:Active Unknown Family Member Name Dates Details Family history of hypertensi on: Mother, Father(V17.49, Z82.49) Status:ActiveFamily history of congestive heart failure: Mother(V17.49, Z82.49) Status:Active Relationship Condition Age at Onset Recorded Date/T leandro Not Specified Congestive heart failure Unknown HypertensionUnknownNot SpecifiedDiabetes mellitusUnknownfatherDeceasedUnknownNot SpecifiedDeceasedUnknown Summary Purpose Advance Directives No Advanced Directives Records Found Advance Directive Response Recorded Date/ Time Advance Directives No May 12:47pm Chief Complaint and Reason for Visit Chief Complaint NSTEMI NSTEMIReason for VisitAsthma Burn CAD (coronary artery disease) GERD (gastroesophageal reflux disease) HTN (hypertension) Hyperlipidemia NSTEMI (non-ST elevated myocardial infarction) Stented coronary artery Chief Complaint NSTEMI NSTEMI UnknownReason for VisitAsthma Burn CAD (coronary artery disease) GERD (gastroesophageal reflux disease) HTN (hypertension) Hyperlipidemia NSTEMI (non-ST elevated myocardial infarction) Stented coronary artery Reason for Referral SpecialtyDiagnoses / ProceduresReferred By ContactReferred To ContactRadiology Diagnoses NSTEMI, initial episode of care ([facility]) Other cough Other fatigue HOPPER (dyspnea on exertion) Procedures Nuclear Stress Test CHG MYOCARDIAL SPECT MULTIPLE STUDIES Addy Fuller DO [address] [facility] [address], [place] [id number] Referral IDStatusReasonStart DateExpiration DateVisits RequestedVisits [id number] Review/[id number] / Procedures Referred By ContactReferred To ContactCardiology Diagnoses Coronary artery disease involving nenana coronary artery of nenana heart without angina pectoris Procedures Follow Up In Cardiology Addy Fuller DO [address], [place] [id number] Addy Fuller, DO [address] [place] [address] 2, [place] [id number] Referral IDStatusReasonStart DateExpiration DateVisits RequestedVisits [id number]/4/20244/ Additional Source Comments REASON FOR VISIT (unrecogniz ed section and content) ReasonCommentsFollow-up6 monthSpecialtyDiagnoses / ProceduresReferred By Contact Referred To ContactRadiology Diagnoses NSTEMI, initial episode of care (Multi) Other cough Other fatigue HOPPER (dyspnea on exertion) Procedures Nuclear Stress Test CHG MYOCARDIAL SPECT MULTIPLE STUDIES Addy Fuller, [place] [address], [place] [address] Referral IDStatusReasonStart DateExpiration DateVisits RequestedVisits [id number]/4/20244/4/119134YtvzjhJcjqqxluMcyrMipiuhAddbremr Colon Cancer ScreeningPositive Cologuard, referred by Dr. Bennettments TfcijyashdyctnXsebzfJkwypbyvItxdwh-ngGyvrhiKueezybaEnwehs-ocB REV TSA 10/24/24 ReasonCommentsFollow-up1 year Coronary artery disease involving nenana coronary artery of nenana heart without angina pectorisSpecialtyDiagnoses / Procedures Referred By ContactReferred To ContactCardiology Diagnoses Coronary artery disease involving nenana coronary artery of nenana heart without angina pectoris Procedures Follow Up In Cardiology Addy Fuller, [address] [place] [address] 2, [place] [id number] Phone: tel: fax: Addy Fuller, DO [address] [facility] 2, [place] [id number] Phone: tel: fax: Referral IDStatusReasonStart DateExpiration DateVisits RequestedVisits [id number]/23/20247/23/370020CcfuitCbhtdgotTqmx-xy (unrecognized sect ion and content) No Status [...] section and content) DATE CREATED AUTHOR 06/19/2022 [facility] DATE CREATED AUTHOR AUTHOR'S ORGANIZ ATION 03/27/2023 [facility] DATE CREATED AUTHOR AUTHOR'S ORGANIZ ATION 03/27/2023 [employer] DATE CREATED AUTHOR AUTHOR'S ORGANIZ ATION 10/11/2023 [facility] DATE CREATED AUTHOR AUTHOR'S ORGANIZ ATION 11/08/2023 [facility] DATE CREATED AUTHOR AUTHOR'S ORGANIZ ATION 11/30/2023 [facility] DATE CREATED AUTHOR AUTHOR'S ORGANIZ ATION 03/08/2024 [facility] DATE CREATED AUTHOR AUTHOR'S ORGANIZ ATION 10/11/2024 [facility] DATE CREATED AUTHOR AUTHOR'S ORGANIZ ATION 10/24/2024 [facility] DATE CREATED AUTHOR AUTHOR'S ORGANIZ ATION 10/26/2024 [facility] DATE CREATED AUTHOR AUTHOR'S ORGANIZ ATION 10/29/2024 [facility] DATE CREATED AUTHOR AUTHOR'S ORGANIZ ATION 05/06/2025 [facility] DATE CREATED AUTHOR AUTHOR'S ORGANIZ ATION 05/10/2025 [facility] DATE CREATED AUTHOR AUTHOR'S ORGANIZ ATION 05/15/2025 [facility] Care Teams (unrecognized sec tion and content) Team Status: Active Member Role Status Dates Joe Maddox DO Primary Care Provider Active Team Status: Inactive Member Role Status Dates Joe Maddox DO Primary Care Provider Active Start: September 30, 2023 End: October 01, 2023ShRocio Matamoros ProviderActiveStart: September 30, 2023 End: October 01, 2023Tamara Swanson RNOther ProviderActiveStart: September 30, 2023 End: October 01, 2023W Osiel Fuller DOOther ProviderActiveStart: September 30, 2023 End: October 01, 2023Janis Gaviria ProviderActiveStart: September 30, 2023 End: October 01, 2023Janis Pacheco ProviderActiveStart: September 30, 2023 End: October 01, 2023MoJanis Nguyen ProviderActiveStart: September 30, 2023 End: September 30Janis Holt ProviderActiveStart: September 30, 2023 End: September 30hakan Andrews APRNOther ProviderActiveStart: September 30, 2023 End: October 01, 2023Janis Willard ProviderActiveStart: September 30, 2023 End: October 01, 2023Mobetty Kinney MDOther ProviderActiveStart: September 30, 2023 End: October 01, 2023TaJanis Ji ProviderActiveStart: September 30, 2023 End: September 30WAYNE Van-BCOther ProviderActiveStart: September 30, 2023 End: October 01, 2023Joyce Delacruz MDOther ProviderActiveStart: September 30, 2023 End: October 01, 2023Elvia Xavierending ProviderActiveStart: September 30, 2023 End: October 01, 2023 Team Status: Active Member Role Status Dates Joe Maddox DO Primary Care Provider Active Start: September 30, 2023 Rocio Landin ProviderActiveStart: September 30, 2023 Janis Clayton ProviderActiveStart: September 30, 2023 Tamara Swanson RNOther ProviderActiveStart: September 30, 2023 W Osiel Fuller DOOther ProviderActiveStart: September 30, 2023 Kwok Argueta , MDOther ProviderActiveStart: September 30, 2023 Addy Glass MDOther ProviderActiveStart: September 30, 2023 Barbara Rivas MDOther ProviderActiveStart: September 30, 2023 Joe Delatorre MDOther ProviderActiveStart: September 30, 2023 Emanuel Andrews APRNOther ProviderActiveStart: September 30, 2023 Bebe Basurto MDOther ProviderActiveStart: September 30, 2023 Van Kinney MDOther ProviderActiveStart: September 30, 2023 Eliud Tilley MDOther ProviderActiveStart: September 30, 2023 WAYNE Andujar-Other ProviderActiveStart: September 30, 2023 Joyce Delacruz MDOther ProviderActiveStart: September 30, 2023 Pooja Cortez APRNAttenangie ProviderActiveStart: September 30, 2023 Team MemberRelationshipSpecialtyStart DateEnd Joe Aranda DO [address] [place] [address] [facility]23 Team Status: Inactive Member Role Status Dates Joe Maddox DO Primary Care Provider Active Start: November 04, 2023 End: November 04, 2023Micwoody Elias DOAttending ProviderActiveStart: November 04, 2023 End: November 04, 2023Team MemberRelationshipSpecialtyStart DateEnd Joe Aranda DO [address] [place] [address] PCP - GeneralFamily Medicine10/22/23Team MemberRelationshipSpecialtyStart KristyEnd Joe Aranda DO [address] [place] [address] PCP - GeneralFamily Medicine10/22/23Team MemberRelationshipSpecialtyStart DateEnd Joe Aranda DO [address] [place] [address] PCP - GeneralFamily Medicine10/22/23Team MemberRelationshipSpecialtyStart Joe Kapoor DO [address] [place] [address] PCP - GeneralFamily Medicine10/22/23Team MemberRelationshipSpecialtyStart Joe Kapoor DO [address] [place] [address] PCP - GeneralFamily Medicine10/22/23Team MemberRelationshipSpecialtyStart Joe Kapoor DO [address] [place] [address] PCP - GeneralFamily Medicine09/21/23Team MemberRelationshipSpecialtyStart Joe Kapoor DO [address] [place] [address] PCP - GeneralFamily Medicine09/21/23Team MemberRelationshipSpecialtyStart Joe Kapoor, DO [address] [place] [address] PCP - GeneralFamily Medicine09/21/23Team MemberRelationshipSpecialtyStart Joe Kapoor DO [address] [place] [address] PCP - GeneralFamily Medicine09/21/23Team MemberRelationshipSpecialtyStart Joe Kapoor DO [address] [place] [address] PCP - GeneralFascly Medicine09/21/23Team MemberRelationshipSpecialtyStart DateEnd Joe Aranda DO [address] [place] [address] PCP - Generalmi Medicine10/22/23 Goals (unrecognized section and content) Goals may [...] BE BASED ON THE PRIMARY CLINICAL RECORDS. [employer] [facility]. provides no warranty or guarantee of the accuracy or completeness of information in this document.
[2025-05-19 12:46] LABS: Anion Gap 11.0; Blood Urea Nitrogen 18.0 mg/dL (7.0-18.0); Calcium 9.5 mg/dL (8.5-10.1); Carbon Dioxide 33.1 mmol/L (21.0-32.0); Chloride 101 mmol/L (98-107); Cholesterol 84 mg/dL (<=200); Estimated GFR (African America >60 (>=60 mL/min/1.73m^2); Estimated GFR (Non-African Ame >60 (>=60 mL/min/1.73m^2); Glucose 109 mg/dL (74-106); HDL Cholesterol 27 mg/dL (40-60); Potassium 4.1 mmol/L (3.5-5.1); Sodium 141 mmol/L (136-145); Triglycerides 95 mg/dL (<=150); VLDL CHOLESTEROL 19.0 mg/dL
== END 2025-05-19 12:04 | disposition home or self-care (01) ==
PROVIDERS: PCP Family Medicine; Visit Provider Internal Medicine Cardiovascular Disease
DX: E78.2 Mixed hyperlipidemia (principal); I25.10 Atherosclerotic heart disease of native coronary artery without angina pectoris; I10 Essential (primary) hypertension
CPT/HCPCS: 36415; 80048; 80061

== ENCOUNTER 2025-07-06 13:43 | Outpatient (OUT) | payer MEDICARE, MEDICAID, SELFPAY ==
--- OUTSIDE RECORDS SUMMARY | 2025-07-06 13:46 | XMS_ITS | Clinical Summary ---
Demographics Address [address] [place] [address] Home Phone Email Address Preferred Language Khmer Marital Status Adventist Affiliation Unknown Race White Ethnic Group Unknown Author Organization [employer] Address [id number] [address] [place] [address] Care Team Providers Care Slot Technician Name Role Phone Joe Marc DO Primary Care Provider [phone] Allergies Active AllergyReactionsCriticalityNoted DateCommentsAspirinGI Ctcgeets04/06/2023 Medications MedicationSigDispense QuantityRefillsLast FilledStart DateEnd DateStatus albuterol [...] standard drink = 0.6 oz pure alcohol)ChildcareAnswerDate PqxfzyfiQljqulakeNiceyqr32/12/2019Employment AnswerDate ZiraitasXspfemirsrPjcklsv62/12/2019Hunger ScreeningAnswerDate RecordedWithin the past 12 months we worried whether our food would run out before we got money to buy more.Never True10/09/2023Food Insecurity - Inability Not on file10/09/2023Sex and Gender InformationValueDate RecordedSex Assigned at BirthNot on fileLegal EfdIiks9302/22/2015 11:54 AM EDTGender IdentityNot on file Sexual OrientationNot on file Last Filed Vital Signs Vital SignReadingTime TakenCommentsBlood Asdctnqb095/55010/09/2023 12:50 PM EDT Bgbxo007010/09/2023 12:50 PM EDTTemperature--Respiratory Rate--Oxygen Saturation-- Inhaled Oxygen Concentration--Mtowby834.7 kg (257 lb 3.2 oz)10/09/2023 12:50 PM KODYiglfk717.9 cm (6')10/09/2023 12:50 PM EDTBody Mass Index34.8810/09/2023 12:50 PM EDT Plan of Treatment Health MaintenanceDue DateLast DoneCommentsDepression Ukkjiiwwa40/31/1968Zoster (Shingles) Vaccine (1 of 2)2005bdominal Aortic Aneurysm (AAA) Screen 2020Fall Risk Kcasahtod00/31/2021dult BMI Vykavcalz61 Tobacco Ujmnzuihs42OVID-19 Vaccine ( season) /07/2020, 04/03/2021, 03/13/2021, Additional history existsInfluenza Ddnxhxk52/01/2023RSV ( or age 60+ yrs) (1 - 1-dose 75+ series) 2030TaP,Tdap and Td Vaccines (2 - Tdap) Medical Devices Not on file Insurance * Guarantor: Barry Schofield TypeRelation to PatientDate of BirthPhone Billing AddressPersonal/PyuutbObty89/31/1956 [address] [place] [address] Care Teams Team MemberRelationshipSpecialtyStart DateEnd Joe Aranda DO [address] [place] [address] PCP - GeneralFamily Medicine09/21/23
--- OUTSIDE RECORDS SUMMARY | 2025-07-06 13:47 | XMS_ITS | Clinical Summary ---
Demographics Address [address] [place] [address] Mobile Phone Home Phone Preferred Language en Marital Status Sabianist Affiliation Unknown Race White Ethnic Group Unknown Author Organization [facility] Address [address] [place] [address] Care Team Providers Care Digital Research Analyst Name Role Phone Unavailable Primary Care Provider Unavailabl e Allergies Active AllergyReactionsCriticalityNoted DateCommentsAspirinGI ejtbmtry67/06/2023 Medications MedicationSigDispense QuantityRefillsLast FilledStart DateEnd DateStatus Ventolin HFA 108 (90 Base) MCG/ACT inhaler Inhale 2 puffs every 6 (six) hours if neededActive atorvastatin (Lipitor) 80 MG tablet Take 80 mg by mouth at pcrxvte5010/22/2023ctive benzonatate (Tessalon) 100 MG capsule 08/22/2023ctive Breztri [...] by mouth DailyActive Sodium Sulfate-Mag Sulfate-KCl (Sutab) 7349-373-233 MG tablet 10/09/2023ctive tadalafil (Cialis) 20 MG [...] HOURS NEEDED FOR SHORTNESS OF BREATH OR KAHXLWXS89/25/2024ctive Active Problems No known active problems Encounters DateTypeDepartmentCare EelbWznbeibnqcc24/21/2025 2:00 PM EDTOffice Visit [facility] [address] [place] [address] Inocencio Bo DO S/P reverse total shoulder arthroplasty, left (Primary Dx)05/09/2025 11:20 AM EDTAncillary Procedure [facility] [address] [place] [address] 05/09/2025Travelfrom Last 3 Months Social History Tobacco UseTypesPacks/DayYears UsedDateSmoking Tobacco: NeverSmokeless Tobacco: Never Tobacco Cessation:Counseling Given: Not Answered Alcohol UseStandard Drinks/WeekCommentsNever0 (1 standard drink = 0.6 oz pure alcohol)Sex and Gender InformationValueDate RecordedSex Assigned at BirthNot on fileLegal ZzxAzxe5710/01/2022 6:56 PM EDTGender IdentityNot on fileSexual OrientationNot on file Last Filed Vital Signs Vital SignReadingTime TakenCommentsBlood Csgiojrb309/7007/01/2018 12:00 PM EST Pulse--Temperature--Respiratory Rate--Oxygen Saturation--Inhaled Oxygen Concentration--Rcqtvx071 kg (238 lb)05/09/2025 1:25 PM WQHHmjkli570.9 cm (6') 05/09/2025 1:25 PM EDTBody Mass Index32.281 1:25 PM EDT Plan of Treatment DateTypeDepartmentCare Team (Latest Contact Info)Qqguzxeexjq70/07/2026 1:00 PM EDTOffice Visit [facility] [address] [place] [address] Inocencio Bo, DO [address] [place] [address] Procedures Procedure NamePriorityDate/TimeAssociated DiagnosisCommentsXR SHOULDER 2+ VIEWS KYIPWedotow06/21/2025 11:19 AM EDT S/P reverse total shoulder [...]
--- OUTSIDE RECORDS SUMMARY | 2025-07-06 13:47 | XMS_ITS | Clinical Summary ---
Demographics Address [address] [place] [address] Home Phone Email Address Preferred Language en Marital Status Nondenominational Affiliation Unknown Race White Ethnic Group Not or Lati no Author Organization [facility] Address [address] [place] [address] Phone Care Team Providers Care Hose Wrapper Name Role Phone Joe Marc DO Primary Care Provider [phone] Allergies Active AllergyReactionsCriticalityNoted DateCommentsAspirinGI zppchfaf71/06/2023 Medications MedicationSigDispense QuantityRefillsLast FilledStart DateEnd DateStatus albuterol [...] 80 mg tablet Indications:Coronary artery disease involving [place] coronary artery of [place] heart without angina pectoris,History of PTCA,Mixed hyperlipidemiaTake 1 tablet (80 mg) by mouth once daily at bedtime. 90 tablet ctive clopidogrel (Plavix) 75 mg tablet Indications:History of PTCATake 1 tablet (75 mg) by mouth once daily. 90 tablet ctive metoprolol succinate XL (Toprol-XL) 25 mg 24 hr tablet Indications:Hypertension, benignTake 1 tablet (25 mg) by mouth once daily. 90 tablet ctive valsartan (Diovan) 160 mg tablet Indications:Hypertension, benignTake 1 tablet (160 mg) by mouth once daily. 90 tablet ctive Active Problems ProblemNoted DateDiagnosed DateBMI 31.0-31.9,adult02/09/2024History of myocardial jgrmzfyvvk51/23/2024ardiomyopathy, cinfbcpn24/23/2024ulmonary interstitial kptknodv36/23/2024Former cigarette tkyfzn6410/22/2023GI bleed 10/22/20235811Aodov29/04/2024OE (dyspnea on exertion)10/22/2023oronary artery disease involving [place] coronary artery of [place] heart without angina pectoris 05/25/2023Echocardiogram /06/7270Vjqfnwv61/06/2023History of PTCA 05/25/2023Hypertension, iielah1105/25/2023Mixed /06/2023NSTEMI, initial episode of care05/25/2023 Encounters DateTypeDepartmentCare AlbnBdcnawpafci15/16/2025 2:20 PM EDTOffice Visit at [facility] [address] [place] [phone] Addy Fuller DO Coronary artery disease involving [place] coronary artery of [place] heart without angina pectoris; History of PTCA; Pulmonary interstitial fibrosis (Multi); Former cigarette smoker; Mixed hyperlipidemia; Hypertension, benign; BMI 31.0-31.9,adult Discharge Disposition: Home05/04/20251392Wagqwq62/13/2025Refill at [facility] [address] [place] [phone] Addy Fuller DO Hypertension, benignfrom Last 3 Months Immunizations ImmunizationAdministration DatesNext DueInfluenza, Seasonal, Quadrivalent, Rmcbrxcbjc72/07/2023Moderna SARS-CoV-2 Pdthpoihobo12/01/2021Pfizer Hameed Cap IHGX-WxX-399/01/2021,1Pfizer Purple Cap TPWZ-RdY-643/01/2021,12/18/2020 Family History Medical HistoryRelationNameCommentsHypertensionFatherHeart failureMother HypertensionMotherRelationNameStatusCommentsFatherMother Social History Tobacco UseTypesPacks/DayYears UsedDateSmoking Tobacco: FormerCigarettes Smokeless Tobacco: Never Tobacco Cessation:Counseling Given: Not Answered Alcohol UseStandard Drinks/WeekCommentsNever0 (1 standard drink = 0.6 oz pure alcohol)Sex and Gender InformationValueDate RecordedSex Assigned at BirthNot on fileLegal OapCgtk68/26/2022 6:18 AM ESTGender IdentityNot on fileSexual OrientationNot on file Last Filed Vital Signs Vital SignReadingTime TakenCommentsBlood Uhwzeqcm989/6010 2:22 PM EDT Wvdbe911205/04/2025 2:22 PM EDTTemperature--Respiratory Rate--Oxygen Saturation-- Inhaled Oxygen Concentration--Jaxghe081 kg (234 lb)05/04/2025 2:22 PM EDTHeight 182.9 cm (6')05/04/2025 2:22 PM EDTBody Mass Index31.7405/04/2025 2:22 PM EDT Plan of Treatment DateTypeDepartmentCare Team (Latest Contact Info)Esxzxtnfafc67/07/2026 1:30 PM EDTOffice Visit at [facility] [address] [phone] Lisa Andrews, ADMINISTRATIVE OFFICE MANAGER-[employer] FINISH[employer] RANGE OPERATOR CHIEF [address] [facility] [address] [place] [address] Health MaintenanceDue DateLast DoneCommentsCT Aurdsnryfvae68/31/1956Colonoscopy 1955olorectal Cancer Koysrbayj90/31/1956FIT-DNA (Cologuard)1955FIT 1955Lipid Panel1955Medicare Annual Wellness Visit (AWV)1955 Llycxpcjfhehn19/31/1956MMR Vaccines (1 of 1 - Standard series)1956Diabetes Qproskxus66/31/1974Hepatitis C Uzustfoyw30/31/1974Pneumococcal Vaccine (1 of 2 - PCV)1974PSA Prostate Cancer Wxuaygipj36/31/2006RSV High Risk: (Elderly (60+) or Population) (1 [...] Schofield TypeRelation to PatientDate of BirthPhone Billing AddressPersonal/LtlvzwFrud39/31/1956 [address] [place] [address] * Guarantor: Philippe Schofield TypeRelation to PatientDate of BirthPhone Billing AddressPersonal/DlbdusLdag74/31/1956 [address] [place] [address] Care Teams Team MemberRelationshipSpecialtyStart DateEnd Date Joe Marc DO [facility] [place] [address] PCP - GeneralFamily Medicine10/22/23
== END 2025-07-06 13:44 | disposition home or self-care (01) ==
LOC: FHNEUROLOG 13:43
PROVIDERS: PCP Family Medicine; Visit Provider Psychiatry & Neurology Neurology
DX: G47.33 Obstructive sleep apnea (adult) (pediatric) (principal)
CPT/HCPCS: G0463